=== PATIENT | female | born 1935 | race Caucasian/White ===

== ENCOUNTER → 2016-09-20 | Outpatient (REF) | payer MEDICARE, BC ==
[~2016-09-20] MED LIST: ADV250INH INH; ALBU17IN INH; ASPI81TA85 PO; CHLO125TA PO; FLUZ1INJ IM; LISI-542 PO; METO25TAB PO; NICO7DIS4 TD; PLAV75TA38 PO; PNEU0.5I IM; PRED10TA PO; PRESCAP PO; SIMV40TA2 PO; VITA100066 PO
[2016-09-20 17:40] LABS: ALBUMIN 3.9 GM/DL (3.2-5.2); ALBUMIN/GLOBULIN RATIO 1.26 (1.00-1.93); ALKALINE PHOSPHATASE 61 U/L (45-117); ALT/SGPT 15 U/L (12-78); ANION GAP 8 MEQ/L (8-16); AST/SGOT 19 U/L (15-37); BILIRUBIN,TOTAL 0.6 MG/DL (0.2-1.0); BLOOD UREA NITROGEN 15 MG/DL (7-18); CALCIUM LEVEL 8.9 MG/DL (8.8-10.2); CARBON DIOXIDE LEVEL 31 MEQ/L (21-32); CHLORIDE LEVEL 102 MEQ/L (98-107); CREATININE FOR GFR 0.93 MG/DL (0.55-1.02); GLOMERULAR FILTRATION RATE > 60.0 (>32); GLUCOSE, FASTING 92 MG/DL (83-110); SODIUM LEVEL 141 MEQ/L (136-145)
[2016-09-20 18:04] LABS: MEAN CORPUSCULAR HEMOGLOBIN 31.4 pg (27.0-33.0); MEAN CORPUSCULAR HGB CONC 32.6 g/dl (32.0-36.5); MEAN CORPUSCULAR VOLUME 96.3 fl (80.0-96.0); WHITE BLOOD COUNT 9.1 K/mm3 (4.0-10.0)
== END ==
LOC: M LAB REF 16:14
PROVIDERS: ATTEND Physician Assistant
DX: I11.9 Hypertensive heart disease without heart failure (principal); E78.2 Mixed hyperlipidemia; I25.10 Atherosclerotic heart disease of native coronary artery without angina pectoris
CPT/HCPCS: 80053; 85027; G0463

== ENCOUNTER → 2016-10-13 | Outpatient (CLI) | payer BC, MEDICARE ==
--- NOTE | 2016-10-13 13:19 | REP ---
CAROTID ULTRASOUND: Real-time sonographic evaluation and duplex Doppler interrogation of the extracranial carotid vasculature is performed. COMPARISON: 10/22/2014. There is moderate partially calcified plaquing and narrowing in both carotid bulbs extending into the internal and external carotid arteries. There is elevated peak systolic velocity in both internal carotid arteries compatible with bilateral stenosis of 60-79% unchanged since the prior exam. There is normal direction of flow in both vertebral arteries. RIGHT LEFT PK Systolic ICA 148.2 189.1 cm/s End Diastolic ICA 15.0 30.7 Peak systolic CCA 80.2 63.4 PK Systolic ECA 107.0 179.9 ICA/CCA Ratio 1.85 2.98 IMPRESSION: Bilateral stenosis of the internal carotid arteries 60-79% not significantly changed when compared to the prior study of 10/22/2014. Signed by Tariq Zheng MD 10/13/2016 04:43 P
== END ==
LOC: M RAD 10:56
PROVIDERS: ATTEND Internal Medicine Cardiovascular Disease
DX: I65.23 Occlusion and stenosis of bilateral carotid arteries (principal)

== ENCOUNTER → 2016-10-17 | Outpatient (REF) | payer MEDICARE ==
[~2016-10-17] MED LIST changes: +AZIT250T3 PO; +K-TA1TAB PO; +MAGN500C PO; +METO12TA PO
== END ==
LOC: M SFHCCAPE 12:18
PROVIDERS: ATTEND Physician Assistant
DX: J22 Unspecified acute lower respiratory infection (principal); Z53.8 Procedure and treatment not carried out for other reasons

== ENCOUNTER → 2016-10-17 | Outpatient (CLI) | payer MEDICARE ==
[~2016-10-17] MED LIST changes: -AZIT250T3 PO; -K-TA1TAB PO; -MAGN500C PO; -METO12TA PO
--- NOTE | 2016-10-17 16:09 | REP ---
PA and lateral chest two views: Comparison 05/06/2015. There are no focal infiltrates. No pleural effusions. There are no masses. Lung merlos are clear but again appear hyperinflated compatible with COPD, requiring clinical confirmation. Cardiac size is normal. The hanh, mediastinum, and bony thorax are unremarkable. Impression: There are no acute cardiopulmonary findings. There is hyperinflation compatible with COPD, requiring clinical confirmation. Signed by Tariq Zavala MD 10/17/2016 04:01 P
== END ==
LOC: M LAB 14:14
PROVIDERS: ATTEND Physician Assistant
DX: J22 Unspecified acute lower respiratory infection (principal); J98.4 Other disorders of lung

== ENCOUNTER 2016-10-19 10:47 | Inpatient (IN) | payer MEDICARE ==
[~2016-10-19] VITALS: Ht 162.6 cm; Wt 59.1 kg
[2016-10-19] MEDS: CHLORTHALIDONE 12.5MG PER 1/2 TABLET PO SCH (09:00)
[2016-10-19] MEDS ORDERED: SODIUM CHLORIDE 0.9% 1000 ML IV ONE (11:30)
--- NOTE | 2016-10-19 11:56 | REP ---
Portable chest x-ray: Sitting AP view. History: Syncope. Comparison study: October 17, 2016. Findings: EKG monitoring electrodes and oxygen delivery tubing are seen. The lungs are well inflated and free of infiltrate. Heart size is normal. The aorta is calcific. There is some diffuse osteopenia. Impression: No active disease. Signed by Gianni Menon MD 10/19/2016 06:19 P
[2016-10-19 11:59] LABS: BASO % 0.2 % (0.0-1.0); EOS # 0.1 K/mm3 (0.0-0.50); EOS % 0.6 % (0.0-3.0); LARGE UNSTAINED CELL # 0.1 K/mm3 (0.0-0.4); LARGE UNSTAINED CELL % 1.3 % (0.0-4.0); LYMPH # 1.2 K/mm3 (1.5-4.5); LYMPH % 11.2 % (24.0-44.0); MEAN CORPUSCULAR HEMOGLOBIN 30.8 pg (27.0-33.0); MEAN CORPUSCULAR HGB CONC 33.3 g/dl (32.0-36.5); MEAN CORPUSCULAR VOLUME 92.4 fl (80.0-96.0); MONO # 0.8 K/mm3 (0.0-0.8); MONO % 7.9 % (0.0-5.0); NEUTROPHILS # 8.1 K/mm3 (1.8-7.7); NEUTROPHILS % 78.8 % (36.0-66.0); PLATELET COUNT, AUTOMATED 195 k/mm3 (150-450); RED CELL DISTRIBUTION WIDTH 12.6 % (11.5-14.5); WHITE BLOOD COUNT 10.3 K/mm3 (4.0-10.0)
[2016-10-19 12:14] LABS: ANION GAP 10 MEQ/L (8-16); BLOOD UREA NITROGEN 34 MG/DL (7-18); CALCIUM LEVEL 8.4 MG/DL (8.8-10.2); CARBON DIOXIDE LEVEL 30 MEQ/L (21-32); CHLORIDE LEVEL 97 MEQ/L (98-107); CREATININE FOR GFR 1.28 MG/DL (0.55-1.02); GLOMERULAR FILTRATION RATE 42.7 (>32); GLUCOSE, FASTING 132 MG/DL (83-110); MAGNESIUM LEVEL 2.2 MG/DL (1.8-2.4); POTASSIUM SERUM 3.6 MEQ/L (3.5-5.1); SODIUM LEVEL 137 MEQ/L (136-145)
[2016-10-19] MEDS ORDERED: IPRATROPIUM 0.5MG/ALBUTEROL 2.5MG INH SOL UD 3ML (DUONEB)(J7620) NEB ONE (12:30)
[2016-10-19] MEDS ORDERED: MOXIFLOXACIN HCL 400 MG in APPROPRIATE DILUENT 1 EA IV ONE (12:45)
[2016-10-19] MEDS ORDERED: AZIT250T3 PO (13:46)
[2016-10-19] MEDS ORDERED: PRED10TA PO (13:46)
[2016-10-19] MEDS ORDERED: ADV250INH INH (13:46)
[2016-10-19] MEDS ORDERED: METO12TA PO (13:46)
[2016-10-19] MEDS ORDERED: ALBUTEROL SULFATE 2.5 MG/0.5 ML INH NEB SOLN NEB PRN (14:00)
[2016-10-19] MEDS ORDERED: ACETAMINOPHEN TAB 650MG DOSE (2X325MG) PO PRN (14:00)
[2016-10-19] MEDS ORDERED: ONDANSETRON 4MG/2ML VIAL (J2405) IV PRN (14:00)
--- NOTE | 2016-10-19 14:56 | HPE ---
DATE OF ADMISSION: 10/19/2016 PRIMARY CARE PROVIDER: Lenore Nathan. HISTORY OF PRESENT ILLNESS: This is patient is an 81-year-old female with a past medical history significant for COPD, unstable angina, status post cardiac stent, hyperlipidemia, hypertension, tobacco abuse, macular degeneration who presented to [facility] on 10/19/2016 for worsening shortness of breath. The patient stated since October 16, 2016, the patient started having difficulty breathing and the patient was noted to have increased cough and the patient started having generalized body aches. The patient started to develop a fever yesterday. Today, the patient was in the shower and the patient had a near syncopal episode. The patient was caught before landing on the bathtub. Denies any loss of consciousness. Denies any seizure-like activities. The patient went to see her primary care provider, one day after the symptoms and the patient was diagnosed with strep and the patient was given Z-Shane. The patient denies any other associated symptoms. When the patient arrived in the emergency room, the patient was empirically started on moxifloxacin. Later the respiratory virus panel came back positive for influenza A H3 and the hospitalist team was called for admission. ALLERGIES: PENICILLIN (neck and lip swelling). HOME MEDICATIONS: - aspirin 81 mg by mouth daily - chlorthalidone 12.5 mg by mouth daily - vitamin D 1000 units by mouth nightly - Plavix 37.5 mg by mouth twice a day - Lisinopril 5 mg by mouth nightly - metoprolol tartrate 25 mg by mouth twice a day - Advair discus one puff inhalation twice a day - simvastatin 40 mg by mouth nightly PAST MEDICAL HISTORY: COPD. Unstable angina status post cardiac stent placement in 2012. Hyperlipidemia. Hypertension. Tobacco abuse. Macular degeneration. PAST SURGICAL HISTORY: Cardiac stent placement in 2012 SOCIAL HISTORY: The patient smoked approximately one pack daily since 21 years of age. Her last cigarette was 5 days ago. Denies alcohol use. Denies recreational drug use. THE PATIENT IS A FULL CODE. REVIEW OF SYSTEMS: GENERAL: Generalized fatigue and generalized ache. Has a very poor oral since October 16, 2016. HEENT: Has difficulty hearing, this is a chronic problem. No vision changes. CARDIOVASCULAR: No chest pain. No palpitations. The patient does have a history of unstable angina status post cardiac stent. The patient a near syncopal episode on October 19, 2016. RESPIRATORY: Worsening shortness of breath. Denies any sputum color changes. Does noticed having increased cough. Denies any wheezes. GI: Poor appetite. No nausea, no vomiting. No abdominal pain. No diarrhea. MUSCULOSKELETAL: Generalized muscle ache. Chronic lower extremity tenderness bilaterally. NEURO: No numbness or tingling. OBJECTIVE: VITAL SIGNS: Temperature is 97.4, pulse 88, respiration 18, blood pressure supine is 135/62, standing is 117/57. Oxygen saturation is greater than 90% with 2 liters nasal cannula. GENERAL: Fatigued, pale, no acute distress. Alert and oriented times three. HEENT: Difficulty hearing, otherwise normocephalic, atraumatic. Extraocular muscles grossly intact. Dry oral mucosa. CARDIOVASCULAR: Positive S1, S2. Regular rate. LUNGS: Clear to auscultation bilaterally. No wheezes. No rhonchi. ABDOMEN: Soft, nontender, nondistended. Bowel sounds present. No rebound or guarding. EXTREMITIES: No edema. No cyanosis. There is some slight tenderness on the stout bilaterally. NEURO: Sensation to fine touch grossly intact. Muscle strength 5 out of 5. LABORATORY DATA: WBC 10.3, hemoglobin 14.9, hematocrit 44.7, platelet count is 195. Sodium 137, potassium 3.6, chloride 97, carbon dioxide 30, BUN 34, creatinine 1.28, GFR 42.7, fasting glucose 132, lactic acid 2.3, calcium 8.4, magnesium 2.2, total CK 168, troponin I less than 0.02, TSH 1.62. Microbiology: Blood culture is pending times two sets. Respiratory virus panel showed influenza A H3. Imaging studies: Chest x-ray showed no acute disease. ASSESSMENT/PLAN: 1. Influenza A: The patient will be admitted to the medical/surgical floor as an inpatient status. The patient started having onset of symptoms since October 16, 2016, thus has already passed the window for Tamiflu. Currently will place the patient on conservative medical management. The patient will be on IV fluids. 2. Streptococcus infection: The patient was seen by her primary care provider. According to the patient, the patient had a strep test done and is was positive and the patient was started on Z-Shane. Will follow with the report. Will also repeat the study. The patient has already had 3 days of Z-Shane also had Avelox in the emergency room. Will interpret new test with caution. At this time, will continue azithromycin. 3. History of chronic obstructive pulmonary disease, (COPD): The patient will have albuterol as needed. Continue with the patient's home breathing treatments. Currently, I do not feel that the patient has COPD exacerbation. 4. Unstable angina, status post cardiac stent placement in 2013. Continue with aspirin and Plavix, metoprolol and lisinopril. 5. Hyperlipidemia: Continue simvastatin. 6. Hypertension: The patient is on metoprolol, lisinopril and chlorthalidone. 7. Tobacco abuse: Per patient, the patient's last cigarettes was 5 days ago. Will continue to monitor. The patient may have a nicotine patch if needed. 8. Deep venous thrombosis prophylaxis on thromboembolic deterrent stockings (TEDS) and sequential compression device.
[2016-10-19] MEDS: NS 1,000 ML IV SCH (16:26)
--- NOTE | 2016-10-19 17:30 | ECGEPIP ---
Stationary ECG Study [facility] - ED Test Date: 2016-10-19 Pat Name: BRISEIDA IBARRA Department: Room: - Gender: F Front Office Help: katt : [id number] Requested By: Aleisha Carrnaza Order Number: [id number] Reading MD: Stas Lock Measurements Intervals [place] Rate: 76 P: 68 AR: 130 QRS: 18 QRSD: 84 T: 56 QT: 385 QTc: 434 Interpretive Statements SINUS RHYTHM WITH FREQUENT VENTRICULAR PREMATURE COMPLEXES POSSIBLE LEFT ATRIAL ENLARGEMENT NONSPECIFIC T-WAVE ABNORMALITY SIMILAR TO 09/26/14 Electronically Signed On 10-19-2016 17:30:24 EDT by Stas Lock
[2016-10-19 17:52] VITALS: BP 121/59
[2016-10-19] MEDS: ASPIRIN 81 MG ENTERIC TAB PO SCH (18:46)
[2016-10-19] MEDS: ADVAIR DISKUS 250/50 INH PWD INH SCH (21:00)
[2016-10-19] MEDS: CLOPIDOGREL 75 MG TAB PO SCH (21:25)
[2016-10-19] MEDS: SIMVASTATIN 40 MG TAB PO SCH (21:26)
[2016-10-19] MEDS: VITAMIN D 1,000 INTERNATIONAL UNITS TABLET PO SCH (21:26)
[2016-10-19] MEDS: LISINOPRIL 5 MG TAB PO SCH (21:44)
[2016-10-19] MEDS: METOPROLOL TART 25 MG TABLET PO SCH (21:45)
[2016-10-19 22:00] VITALS: BP 118/55
[2016-10-19 22:01] VITALS: BP 143/87
[2016-10-19 22:02] VITALS: BP 121/56
[2016-10-20] MEDS: NS 1,000 ML IV SCH ×2 (05:43→14:47)
[2016-10-20 06:00] VITALS: BP_SYST 114; BP_SYST 117; BP_SYST 128; BP_SYST 129; BP_DIAS 55; BP_DIAS 57
[2016-10-20 07:55] LABS: ANION GAP 7 MEQ/L (8-16); BLOOD UREA NITROGEN 24 MG/DL (7-18); CALCIUM LEVEL 7.7 MG/DL (8.8-10.2); CARBON DIOXIDE LEVEL 30 MEQ/L (21-32); CHLORIDE LEVEL 103 MEQ/L (98-107); CREATININE FOR GFR 0.85 MG/DL (0.55-1.02); GLOMERULAR FILTRATION RATE > 60.0 (>32); GLUCOSE, FASTING 94 MG/DL (83-110); POTASSIUM SERUM 3.6 MEQ/L (3.5-5.1); SODIUM LEVEL 140 MEQ/L (136-145)
[2016-10-20 08:04] LABS: MEAN CORPUSCULAR HEMOGLOBIN 31.3 pg (27.0-33.0); MEAN CORPUSCULAR HGB CONC 33.1 g/dl (32.0-36.5); MEAN CORPUSCULAR VOLUME 94.8 fl (80.0-96.0); WHITE BLOOD COUNT 5.2 K/mm3 (4.0-10.0)
[2016-10-20] MEDS: CLOPIDOGREL 75 MG TAB PO SCH ×2 (08:29→20:53)
[2016-10-20] MEDS: ASPIRIN 81 MG ENTERIC TAB PO SCH (08:30)
[2016-10-20] MEDS: AZITHROMYCIN 250 MG TAB PO SCH (08:30)
[2016-10-20] MEDS: CHLORTHALIDONE 12.5MG PER 1/2 TABLET PO SCH (08:30)
[2016-10-20] MEDS: METOPROLOL TART 25 MG TABLET PO SCH ×2 (08:30→20:54)
[2016-10-20] MEDS: ADVAIR DISKUS 250/50 INH PWD INH SCH ×2 (11:45→20:24)
[2016-10-20 14:00] VITALS: BP 151/63
--- NOTE | 2016-10-20 15:13 | IPN ---
DATE: 10/20/2016 SUBJECTIVE: Patient seen and examined in the room today. Patient starting to have increased oral intake; however, the total amount of food intake is now back to her baseline. Patient has continued to require oxygen support. She says she will feel significant shortness of breath with some physical exertions. Patient breathing feels better with breathing treatments. OBJECTIVE: VITAL SIGNS: Temperature 98.8, pulse 20, blood pressure 129/57, pulse oximetry 98% with 2 liters nasal cannula. GENERAL: No signs of acute distress. Alert and oriented times three. HEENT: Normocephalic, atraumatic. Extraocular motor grossly intact. CARDIOVASCULAR: Positive S1, S2. Regular rate. LUNGS: Clear to auscultation bilaterally. No wheezes or rhonchi. ABDOMEN: Soft, nontender, nondistended. Bowel sounds present. No rebound. No guarding. EXTREMITIES: No edema. No cyanosis. LABORATORY DATA: WBC 5.2, hemoglobin 13.2, hematocrit 40, platelet count 154. Sodium 140, potassium 3.6, chloride 103, carbon dioxide 30, BUN 24, creatinine 0.85, GFR greater than 60, fasting glucose 94, calcium 7.7. ASSESSMENT/PLAN: 1. Influenza. Patient is already past the window for Tamiflu. Will continue supportive care. Patient's oral intake continues to improve; however, it is not back to her baseline yet. Will continue with intravenous (IV) fluids. 2. Streptococcus infection. Patient tested positive at her primary care provider's office. Patient was started on Z-Shane prior to admission. Patient already has a few days of Z-Shane. Today will be day #4. 3. History of chronic obstructive pulmonary disease (COPD). Patient will have nebulizers as needed. During physical examination, patient does not seem to have COPD exacerbation currently. 4. History of stable angina status post cardiac stent placement in 2012. Continue with aspirin and Plavix and metoprolol and lisinopril. 5. Hyperlipidemia. Continue simvastatin. 6. Hypertension. Patient is on metoprolol, lisinopril, hydrochlorothiazide. 7. Tobacco abuse. Will continue to monitor. Patient can have a nicotine patch, if needed. 8. Deep venous thrombosis (DVT) prophylaxis. On thromboembolitic deterrents (TEDs), sequentials, and compression device.
[2016-10-20 18:00] VITALS: BP_SYST 135; BP_SYST 146; BP_SYST 147; BP_DIAS 52; BP_DIAS 65; BP_DIAS 68
[2016-10-20] MEDS: VITAMIN D 1,000 INTERNATIONAL UNITS TABLET PO SCH (20:53)
[2016-10-20] MEDS: SIMVASTATIN 40 MG TAB PO SCH (20:53)
[2016-10-20] MEDS: LISINOPRIL 5 MG TAB PO SCH (20:54)
[2016-10-20 22:00] VITALS: BP 141/58
[2016-10-21 06:00] VITALS: BP_SYST 129; BP_SYST 137; BP_SYST 140; BP_DIAS 61; BP_DIAS 70; BP_DIAS 85
[2016-10-21] MEDS: NS 1,000 ML IV SCH (06:27)
[2016-10-21] MEDS: ADVAIR DISKUS 250/50 INH PWD INH SCH ×2 (08:33→21:33)
[2016-10-21] MEDS: CHLORTHALIDONE 12.5MG PER 1/2 TABLET PO SCH (08:36)
[2016-10-21] MEDS: ASPIRIN 81 MG ENTERIC TAB PO SCH (08:37)
[2016-10-21] MEDS: METOPROLOL TART 25 MG TABLET PO SCH ×2 (08:37→21:29)
[2016-10-21] MEDS: AZITHROMYCIN 250 MG TAB PO SCH (08:37)
[2016-10-21] MEDS: CLOPIDOGREL 75 MG TAB PO SCH ×2 (08:37→21:28)
[2016-10-21 14:00] VITALS: BP 150/60
--- NOTE | 2016-10-21 15:48 | IPN ---
DATE: 10/21/2016 SUBJECTIVE: The patient is seen and examined in the room today. The patient still has decreased oral intake. The patient started to have frequent cough. The patient continues to have persistent low-grade temperature. The patient stated she started to have increase of her urinary frequency from the continued intravenous (IV) fluid. OBJECTIVE: VITAL SIGNS: Temperature is 99.2, pulse is 76, respirations 20, blood pressure 129/70, pulse oximetry is 90% with one liter nasal cannula. GENERAL: Fatigued with frequent cough. The patient is alert and oriented times three. HEENT: Normocephalic, atraumatic. Extraocular motor grossly intact. CARDIOVASCULAR: Positive S1, S2. Regular rate. LUNGS: Clear to auscultation bilaterally. No wheezes or rhonchi. ABDOMEN: Soft, nontender, nondistended. Bowel sounds present. No rebound, no guarding. EXTREMITIES: No edema, no sign of cyanosis. MICROBIOLOGY: Blood cultures negative after 48 hours times two sets. ASSESSMENT AND PLAN: 1. Influenza. The patient passed the treatment window for Tamiflu. Currently will continue with supportive care. The patient's orthostatic hypotension has been resolved with the IV support. However, the patient started to now to have increased urinary frequency that is causing her sleep disturbance. For now, we will discontinue the IV fluid and will continue to observe the patient's oral intake. If patient starts to have sign of dehydration, we will have to restart the fluid. 2. Streptococcus infection. That was tested positive in the patient's primary care office. The patient was started on Z-JULIO. Today will be day number five. 3. History of chronic obstructive pulmonary disease (COPD). During physical exam, the patient does not have any finding suggestive of COPD exacerbation. The patient will have breathing treatment as needed. 4. History of stable angina, status post cardiac stent placement in 2012. Continue with aspirin, Plavix and metoprolol and lisinopril. 5. Hyperlipidemia. Continue simvastatin. 6. Hypertension. On metoprolol, lisinopril, hydrochlorothiazide . 7. History of tobacco abuse. The patient has a nicotine patch as needed. 8. Deep venous thrombosis (DVT) prophylaxis on thromboembolism deterrent stockings (TEDs) and sequential compression devices.
[2016-10-21] MEDS: VITAMIN D 1,000 INTERNATIONAL UNITS TABLET PO SCH (21:28)
[2016-10-21] MEDS: SIMVASTATIN 40 MG TAB PO SCH (21:29)
[2016-10-21] MEDS: LISINOPRIL 5 MG TAB PO SCH (21:29)
[2016-10-21 22:00] VITALS: BP 155/66
[2016-10-22 06:00] VITALS: BP_SYST 140; BP_SYST 166; BP_SYST 178; BP_SYST 183; BP_DIAS 62; BP_DIAS 68; BP_DIAS 76; BP_DIAS 81
[2016-10-22 06:16] LABS: MEAN CORPUSCULAR HEMOGLOBIN 31.2 pg (27.0-33.0); MEAN CORPUSCULAR HGB CONC 34.3 g/dl (32.0-36.5); MEAN CORPUSCULAR VOLUME 90.9 fl (80.0-96.0); RED CELL DISTRIBUTION WIDTH 12.5 % (11.5-14.5); WHITE BLOOD COUNT 4.9 K/mm3 (4.0-10.0)
[2016-10-22 06:20] VITALS: BP_SYST 120; BP_SYST 138; BP_SYST 140; BP_DIAS 62; BP_DIAS 68; BP_DIAS 70
[2016-10-22 06:32] LABS: ANION GAP 9 MEQ/L (8-16); BLOOD UREA NITROGEN 6 MG/DL (7-18); CALCIUM LEVEL 8.1 MG/DL (8.8-10.2); CARBON DIOXIDE LEVEL 32 MEQ/L (21-32); CHLORIDE LEVEL 99 MEQ/L (98-107); CREATININE FOR GFR 0.71 MG/DL (0.55-1.02); GLOMERULAR FILTRATION RATE > 60.0 (>32); GLUCOSE, FASTING 101 MG/DL (83-110); POTASSIUM SERUM 2.8 MEQ/L (3.5-5.1); SODIUM LEVEL 140 MEQ/L (136-145)
[2016-10-22] MEDS ORDERED: POTASSIUM CHLORIDE 10 MEQ SR TABLET PO ONE ×2 (06:45→13:15)
[2016-10-22] MEDS: KCL 10MEQ IN 100ML SWI (KRUN) 10 MEQ in APPROPRIATE DILUENT 1 EA IV SCH ×4 (06:56→08:00)
[2016-10-22] MEDS: ADVAIR DISKUS 250/50 INH PWD INH SCH ×2 (08:30→20:46)
[2016-10-22] MEDS: CHLORTHALIDONE 12.5MG PER 1/2 TABLET PO SCH (10:40)
[2016-10-22] MEDS: ASPIRIN 81 MG ENTERIC TAB PO SCH (10:40)
[2016-10-22] MEDS: NS 1,000 ML IV SCH (10:41)
[2016-10-22] MEDS: METOPROLOL TART 25 MG TABLET PO SCH ×2 (10:41→20:23)
[2016-10-22] MEDS: AZITHROMYCIN 250 MG TAB PO SCH (10:41)
[2016-10-22] MEDS: CLOPIDOGREL 75 MG TAB PO SCH ×2 (10:41→20:23)
[2016-10-22 14:00] VITALS: BP 150/60
--- NOTE | 2016-10-22 14:40 | IPN ---
DATE: 10/22/2016 SUBJECTIVE: Patient is seen and examined in the room today. Patient stated her cough is improving, however her oral intake is not back to normal. Still feels generalized weakness. Patient had hypokalemia. Potassium intravenous (IV) was ordered but patient could not tolerate the burning sensation. OBJECTIVE: VITAL SIGNS: Temperature 99, pulse 65, respiration rate 18, blood pressure supine is 140/60, standing is 120/68. GENERAL: Fatigued, alert and oriented times three. HEENT: Normocephalic, atraumatic. Extraocular motors grossly intact. CARDIOVASCULAR: Positive S1, S2, regular rate. LUNGS: Clear to auscultation bilaterally. ABDOMEN: Soft, nontender, nondistended. Bowel sounds present. No rebound, no guarding. EXTREMITIES: No edema, no sign of cyanosis. LABORATORY DATA: WBC 4.9, hemoglobin 12.9, hematocrit 37.6, platelet count 149. Sodium 140, potassium 2.8, chloride 99, carbon dioxide 32, BUN 6, creatinine 0.71, GFR greater than 60, fasting glucose 101, calcium 8.1. ASSESSMENT AND PLAN: 1. Influenza. Past the treatment window for Tamiflu. Currently continue with supportive care. Intravenous (IV) fluid was discontinued yesterday because of resolution of hypotension, however patient's oral intake is not optimal, thus the recurrence of the hypotension. IV fluid has been restarted. 2. Streptococcus throat diagnosed at primary care provider clinic. Started on Z-Shane, today is day #6 of the azithromycin. 3. History of chronic obstructive pulmonary disease (COPD). Currently patient does not have any exacerbation. Continue breathing treatment as needed. 4. History of stable angina status post cardiac stent placement in 2012. Continue aspirin, Plavix, metoprolol, and lisinopril. 5. Hyperlipidemia. Continue simvastatin. 6. Hypertension. On metoprolol, lisinopril, and hydrochlorothiazide. 7. History of tobacco abuse. Nicotine patch as needed. 8. Deep venous thrombosis (DVT) prophylaxis. On thromboembolism deterrents (TEDs) and sequential compression device.
[2016-10-22 18:00] VITALS: BP_SYST 115; BP_SYST 130; BP_SYST 140; BP_DIAS 45; BP_DIAS 50; BP_DIAS 58
[2016-10-22] MEDS: LISINOPRIL 5 MG TAB PO SCH (20:23)
[2016-10-22] MEDS: VITAMIN D 1,000 INTERNATIONAL UNITS TABLET PO SCH (20:23)
[2016-10-22] MEDS: SIMVASTATIN 40 MG TAB PO SCH (20:24)
[2016-10-22 22:00] VITALS: BP 170/88
[2016-10-23] MEDS: NS 1,000 ML IV SCH ×2 (01:14→18:15)
[2016-10-23 06:00] VITALS: BP_SYST 140; BP_SYST 150; BP_SYST 160; BP_DIAS 60; BP_DIAS 72; BP_DIAS 80
[2016-10-23 06:30] LABS: MEAN CORPUSCULAR HEMOGLOBIN 31.6 pg (27.0-33.0); MEAN CORPUSCULAR HGB CONC 33.5 g/dl (32.0-36.5); MEAN CORPUSCULAR VOLUME 94.5 fl (80.0-96.0); RED CELL DISTRIBUTION WIDTH 12.6 % (11.5-14.5); WHITE BLOOD COUNT 5.1 K/mm3 (4.0-10.0)
[2016-10-23 06:33] LABS: ANION GAP 5 MEQ/L (8-16); BLOOD UREA NITROGEN 6 MG/DL (7-18); CALCIUM LEVEL 8.3 MG/DL (8.8-10.2); CARBON DIOXIDE LEVEL 32 MEQ/L (21-32); CHLORIDE LEVEL 102 MEQ/L (98-107); GLOMERULAR FILTRATION RATE > 60.0 (>32); GLUCOSE, FASTING 97 MG/DL (83-110); POTASSIUM SERUM 3.7 MEQ/L (3.5-5.1); SODIUM LEVEL 139 MEQ/L (136-145)
[2016-10-23] MEDS: ADVAIR DISKUS 250/50 INH PWD INH SCH ×2 (08:30→20:40)
[2016-10-23] MEDS: CLOPIDOGREL 75 MG TAB PO SCH ×2 (08:45→20:51)
[2016-10-23] MEDS: AZITHROMYCIN 250 MG TAB PO SCH (08:45)
[2016-10-23] MEDS: METOPROLOL TART 25 MG TABLET PO SCH ×2 (08:45→20:51)
[2016-10-23] MEDS: ASPIRIN 81 MG ENTERIC TAB PO SCH (08:45)
[2016-10-23] MEDS: CHLORTHALIDONE 12.5MG PER 1/2 TABLET PO SCH (09:00)
--- NOTE | 2016-10-23 13:50 | IPN ---
DATE: 10/23/2016 SUBJECTIVE: Patient is seen and examined in the room today. Patient still complains about difficulty breathing requiring oxygen support. Patient continues to have poor oral intake. Patient is positive for orthostatics. Patient feels some lightheadedness when she tried to stand up. Patient continues to have low-grade temperature. No overnight events are reported. In the past 1-2 days, the patient continued to have loose stool and this is a significant fluid loss. OBJECTIVE: VITAL SIGNS: Temperature is 98.8, pulse is 73, respiration rate 18, blood pressure supine is 150/60, sitting is 160/80, standing is 140/72. Pulse oximetry is 90% in room air. GENERAL: Pale, fatigued, no signs of acute distress, alert and oriented times three. HEENT: Normocephalic, atraumatic. Extraocular motors grossly intact. CARDIOVASCULAR: Positive S1, S2, regular rate. LUNGS: Clear to auscultation bilaterally. ABDOMEN: Soft, nontender, nondistended. Bowel sounds present. No rebound, no guarding. EXTREMITIES: No edema, no sign of cyanosis. LABORATORY DATA: WBC 5.1, hemoglobin 13, hematocrit 38.7, platelet count is 154. Sodium is 139, potassium 3.7, chloride is 102, carbon dioxide 32, BUN 6, creatinine 0.7, GFR greater than 60, fasting glucose 97, calcium is 8.3. ASSESSMENT AND PLAN: 1. Influenza. Continue supportive care. Patient still orthostatic. Continues to have poor oral intake. Patient still requires oxygen support. 2. Strep throat diagnosed at primary care provider (PCP) clinic. Patient started on Z-Shane. Today, patient will finish a course Z-Shane antibiotic treatment. 3. Hypocalcemia, most likely secondary to gastrointestinal (GI) loss. Outpatient receiving supplementation. Electrolyte abnormalities corrected. 4. History of chronic obstructive pulmonary disease (COPD). Currently patient does not have any exacerbation. Continue breathing treatments as needed. 5. History of stable angina status post cardiac stent placement in 2012. Continue aspirin, Plavix, metoprolol, and lisinopril. 6. Hyperlipidemia. Continue simvastatin. 7. Hypertension. Currently blood pressure is within range. Continue metoprolol, lisinopril, and hydrochlorothiazide. 8. History of tobacco abuse. 9. Deep venous thrombosis (DVT) prophylaxis. On thromboembolism deterrents (TEDs) and sequential compression device.
[2016-10-23 14:00] VITALS: BP 140/70
[2016-10-23 18:00] VITALS: BP_SYST 110; BP_SYST 120; BP_SYST 130; BP_DIAS 50; BP_DIAS 52
[2016-10-23] MEDS: LISINOPRIL 5 MG TAB PO SCH (20:51)
[2016-10-23] MEDS: VITAMIN D 1,000 INTERNATIONAL UNITS TABLET PO SCH (20:51)
[2016-10-23] MEDS: SIMVASTATIN 40 MG TAB PO SCH (20:51)
[2016-10-23 22:00] VITALS: BP 142/70
[2016-10-24 06:00] VITALS: BP 152/71
[2016-10-24 06:41] LABS: MEAN CORPUSCULAR HEMOGLOBIN 31.7 pg (27.0-33.0); MEAN CORPUSCULAR HGB CONC 34.5 g/dl (32.0-36.5); MEAN CORPUSCULAR VOLUME 91.9 fl (80.0-96.0); RED CELL DISTRIBUTION WIDTH 12.6 % (11.5-14.5); WHITE BLOOD COUNT 5.8 K/mm3 (4.0-10.0)
[2016-10-24 06:58] LABS: ANION GAP 8 MEQ/L (8-16); BLOOD UREA NITROGEN 7 MG/DL (7-18); CALCIUM LEVEL 7.7 MG/DL (8.8-10.2); CARBON DIOXIDE LEVEL 29 MEQ/L (21-32); CHLORIDE LEVEL 102 MEQ/L (98-107); CREATININE FOR GFR 0.62 MG/DL (0.55-1.02); GLOMERULAR FILTRATION RATE > 60.0 (>32); GLUCOSE, FASTING 103 MG/DL (83-110); POTASSIUM SERUM 3.2 MEQ/L (3.5-5.1); SODIUM LEVEL 139 MEQ/L (136-145)
[2016-10-24] MEDS ORDERED: POTASSIUM CHLORIDE 10 MEQ SR TABLET PO ONE (07:45)
[2016-10-24 07:50] LABS: MAGNESIUM LEVEL 1.6 MG/DL (1.8-2.4)
[2016-10-24] MEDS: ASPIRIN 81 MG ENTERIC TAB PO SCH (08:04)
[2016-10-24] MEDS: CLOPIDOGREL 75 MG TAB PO SCH (08:04)
[2016-10-24 08:05] VITALS: BP 152/71
[2016-10-24] MEDS: METOPROLOL TART 25 MG TABLET PO SCH (08:05)
[2016-10-24] MEDS: ADVAIR DISKUS 250/50 INH PWD INH SCH (08:52)
[2016-10-24] MEDS: NS 1,000 ML IV SCH (09:10)
[2016-10-24] MEDS: MAG SULF 1GM/100ML (MAG RUN) 1 GM in APPROPRIATE DILUENT 1 EA IV SCH ×2 (09:10→10:12)
[2016-10-24] MEDS ORDERED: K-TA1TAB PO (11:06)
[2016-10-24] MEDS ORDERED: MAGN500C PO (11:06)
--- NOTE | 2016-10-24 17:44 | DSES ---
DATE OF ADMISSION: 10/19/2016 DATE OF DISCHARGE: 10/24/2016 PRIMARY CARE PHYSICIAN: María Elena Moody MD ATTENDING PHYSICIAN: Chapis Yuan MD SPECIALISTS/CONSULTANTS INVOLVED DURING STAY: None. PROCEDURES PERFORMED DURING STAY: None. ADMITTING DIAGNOSES: 1. Influenza A H3. 2. Streptococcal infection. DISCHARGE DIAGNOSES: 1. Influenza A H3. 2. Orthostatic hypotension. 3. Acute hypoxic respiratory failure. 4. Diarrhea COMPLICATIONS/CHIEF COMPLAINT: Worsening shortness of breath. HISTORY OF PRESENT ILLNESS: The patient presented to [facility] Emergency Department on 10/19/2016 with worsening shortness of breath. She had stated that since 10/16, she had been having difficulty breathing and was noted to have an increased cough and generalized body aches. States that she developed a fever the day before presentation. Reports a near syncopal episode in the shower before presenting to the emergency department. She caught herself before landing on the bathtub. Denied any loss of consciousness. Denied any seizure-like activity. Reported to her primary care provider one day after the symptoms and was diagnosed with strept throat and given a Z-Shane. On arrival to the emergency department, she was empirically started on moxifloxacin. A respiratory panel conducted tested positive for influenza A H3. Hospitalist service is consulted and the patient was subsequently admitted for further medical management. HOSPITAL COURSE: The patient was hospitalized and started on intravenous fluids resuscitation. Continued the patient on azithromycin for her outpatient diagnosis of strep throat. The patient did develop some orthostatic hypotension while hospitalized and fluid resuscitation was continued, which appeared to resolve the orthostatic hypotension. The patient did appear to have some acute hypoxic respiratory failure requiring at most 3 liters of oxygen by nasal cannula. Appear to have resolved during hospitalization. At the time of discharge, the patient was saturating on room air. The patient did appear to have some diarrhea during hospitalization resulting in hypocalcemia. The patient also had some mild hypokalemia with hypomagnesemia. Electrolytes were replenished during hospitalization and electrolytes supplementation will be provided at the time of discharge. Other chronic medical conditions were controlled during hospitalization and deep vein thrombosis (DVT) prophylaxis was provided with ROBINSON's and sequentials. The patient was deemed stable enough for discharge. MEDICATIONS: - aspirin 81 mg by mouth daily - chlorthalidone 12.5 mg by mouth daily - cholecalciferol 1000 units by mouth at bedtime (q.h.s.) - Plavix 75 mg by mouth twice a day - lisinopril 5 mg by mouth at bedtime (q.h.s.) - metoprolol tartrate 25 mg by mouth twice a day - prednisone 60 mg by mouth daily - PreserVision one cap by mouth daily - Advair one puff inhaled twice a day - simvastatin 40 mg by mouth at bedtime (q.h.s.) - magnesium oxide 500 mg by mouth daily for four days - potassium chloride 20 mEq by mouth daily for four days. ALLERGIES: CIPROFLOXACIN, PENICILLIN. PHYSICAL EXAMINATION ON DISCHARGE: VITAL SIGNS: Temperature 98.2, heart rate 74, respirations 19, blood pressure 152/71, oxygen 90% on room air. GENERAL: Very pleasant 81-year-old female sitting on the edge of her bed in no apparent distress and appears her stated age. HEENT: Atrumatic, normocephalic, pupils equal, round, reactive to light and accommodation, extraocular movement intact, wears spectacles, nasal septum appears midline, oral mucosa appears pink and moist. NECK: Supple. Trachea midline, no lymphadenopathy appreciated. CARDIOVASCULAR EXAMINATION: Regular rate and rhythm. Normal S1 and S2, no murmurs, rubs, clicks. RESPIRATORY EXAMINATION: Crackles heard in the base of the lung on the left, normal inspiratory and expiratory airway excursion. No rales or rhonchi appreciated. ABDOMINAL EXAMINATION: Soft, flat, nontender, nondistended. Bowel sounds appreciated. EXTREMITIES: Peripheral pulses appreciated bilaterally in upper and lower extremities, no edema appreciated. No rashes or lesions or skin discoloration noted. SKIN: No rashes or lesions appreciated, no skin discoloration. NEUROLOGICAL EXAMINATION: Cranial nerves II/XII grossly intact, moves all extremities. PSYCHIATRIC EXAMINATION: Appropriate. LABORATORY DATA: White blood count (WBC) 3.81, hemoglobin 12, hematocrit 35, platelets 176. Sodium 139, potassium 3.2, chloride 102, bicarbonate 29, BUN 7, creatine 0.62, glucose 103, calcium 7.7, magnesium 1.6. Urinalysis negative. MICROBIOLOGY: 1. Respiratory panel positive for influenza A H3. 2. Blood cultures negative after 72 hours. 3. Streptococcal screen negative. 4. Gastrointestinal panel negative. IMAGING: Chest x-ray on 10/19/2016 showed no active disease. PROGNOSIS: Safe for discharge to home. ACTIVITY: As tolerated. DIET: Continue outpatient diet. DISCHARGE PLAN: Followup with María Elena Moody in 7 to 10 days. Continue with magnesium oxide and potassium chloride a day for the next four days. Continue outpatient regimen as previously scheduled with outpatient provider for chronic underlying medical conditions. DISPOSITION: Home. DISCHARGE INSTRUCTIONS: 1. Followup with María Elena Moody in 7 to 10 days. 2. Take magnesium oxide and potassium chloride over the next four days daily. 3. Continue with home medications. ITEMS TO FOLLOWUP OUTPATIENT: 1. Followup laboratory data to assess magnesium and potassium. DISCHARGE CONDITION: Stable. TIME SPENT ON DISCHARGE: Greater than 45 minutes. My preceptor for this patient encounter was Dr. Yuan. The preceptor was physically present in the building during the encounter and was fully available. As needed, all aspects of the patient interview, examination, medical decision making process, and medical care plan development were reviewed and approved by the preceptor. The preceptor is aware and concurs with the plan as stated in the body of this note and will attest to such by his/her cosignature. ARMANDO
== END 2016-10-24 13:48 | disposition home or self-care (01) | DRG 193 ==
LOC: M ED 13:10 → M ED INP 13:47 → M MSPAV 17:41
PROVIDERS: ADMIT Internal Medicine; ATTEND Internal Medicine
DX: J10.1 Influenza due to other identified influenza virus with other respiratory manifestations (principal); J96.01 Acute respiratory failure with hypoxia; J44.9 Chronic obstructive pulmonary disease, unspecified; E78.5 Hyperlipidemia, unspecified; I10 Essential (primary) hypertension; H35.30 Unspecified macular degeneration; R35.0 Frequency of micturition; E87.6 Hypokalemia; I95.1 Orthostatic hypotension; E83.42 Hypomagnesemia; R19.7 Diarrhea, unspecified; E83.51 Hypocalcemia; Z79.82 Long term (current) use of aspirin; Z79.51 Long term (current) use of inhaled steroids; Z95.5 Presence of coronary angioplasty implant and graft; Z79.02 Long term (current) use of antithrombotics/antiplatelets; Z79.899 Other long term (current) drug therapy; Z87.891 Personal history of nicotine dependence

== ENCOUNTER 2016-10-26 23:31 | Inpatient (IN) | payer BC, MEDICARE ==
[~2016-10-26] VITALS: Ht 162.6 cm; Wt 60.9 kg
[~2016-10-26 23:31] MED LIST changes: +AZIT250T3 PO; +K-TA1TAB PO; +MAGN500C PO; +METO12TA PO
[2016-10-27] VITALS (10 sets, daily range): BP systolic 82–115; BP diastolic 50–68; O2SAT 97
[2016-10-27] MEDS ORDERED: dexameTHASONE 20 MG/5 ML VIAL (J1100) IV ONE
[2016-10-27] MEDS: IPRATROPIUM 0.5MG/ALBUTEROL 2.5MG INH SOL UD 3ML (DUONEB)(J7620) NEB SCH ×6 (00:12→19:38)
[2016-10-27 00:22] LABS: VENOUS O2 SATURATION 61.4 % (60.0-80.0); VENOUS PARTIAL PRESSURE CO2 42.7 mmHg (38.0-50.0); VENOUS STANDARD HCO3 26.1 MEQ/L; VENOUS TOTAL CO2 29.1 MEQ/L (24.0-28.0)
[2016-10-27 00:27] LABS: BASO % 0.2 % (0.0-1.0); EOS # 0.1 K/mm3 (0.0-0.50); EOS % 0.6 % (0.0-3.0); LARGE UNSTAINED CELL # 0.1 K/mm3 (0.0-0.4); LARGE UNSTAINED CELL % 0.6 % (0.0-4.0); LYMPH # 1.3 K/mm3 (1.5-4.5); LYMPH % 7.2 % (24.0-44.0); MEAN CORPUSCULAR VOLUME 91.1 fl (80.0-96.0); MONO # 0.7 K/mm3 (0.0-0.8); MONO % 4.1 % (0.0-5.0); NEUTROPHILS # 15.6 K/mm3 (1.8-7.7); NEUTROPHILS % 87.3 % (36.0-66.0); PLATELET COUNT, AUTOMATED 371 k/mm3 (150-450); RED CELL DISTRIBUTION WIDTH 12.7 % (11.5-14.5); WHITE BLOOD COUNT 17.9 K/mm3 (4.0-10.0)
[2016-10-27 00:45] LABS: ANION GAP 11 MEQ/L (8-16); BLOOD UREA NITROGEN 14 MG/DL (7-18); CALCIUM LEVEL 9.4 MG/DL (8.8-10.2); CARBON DIOXIDE LEVEL 28 MEQ/L (21-32); CHLORIDE LEVEL 97 MEQ/L (98-107); CREATININE FOR GFR 0.88 MG/DL (0.55-1.02); GLOMERULAR FILTRATION RATE > 60.0 (>32); GLUCOSE, FASTING 141 MG/DL (83-110); POTASSIUM SERUM 4.1 MEQ/L (3.5-5.1); SODIUM LEVEL 136 MEQ/L (136-145)
[2016-10-27] MEDS ORDERED: VANCOMYCIN HCL 750 MG, VIAL MATE ADAPTER 1 EACH in D5W 250 ML IV ONE (01:30)
[2016-10-27] MEDS ORDERED: IMIPENEM/CILASTATIN 500 MG in D5W MINI-BAG PLUS 100 ML IV ONE (01:30)
[2016-10-27] MEDS ORDERED: ASPIRIN 325 MG TAB PO ONE (02:00)
[2016-10-27] MEDS ORDERED: ONDANSETRON 4MG/2ML VIAL (J2405) IV ONE (02:00)
[2016-10-27] MEDS ORDERED: METO-346 PO (03:20)
[2016-10-27] MEDS ORDERED: PRED10PA2 PO (03:20)
[2016-10-27] MEDS ORDERED: MAGN1CAP PO (03:20)
[2016-10-27] MEDS ORDERED: ASPI81TAEC PO (03:20)
[2016-10-27] MEDS ORDERED: POTA10CA PO (03:20)
[2016-10-27] MEDS ORDERED: ALBU17IN INH (03:21)
[2016-10-27] MEDS ORDERED: NITR4TASL SL (03:21)
[2016-10-27] MEDS ORDERED: FLUT1SPR2 (03:21)
[2016-10-27 04:00] LABS: ALBUMIN 3.5 GM/DL (3.2-5.2); ALBUMIN/GLOBULIN RATIO 1.06 (1.00-1.93); ALKALINE PHOSPHATASE 65 U/L (45-117); ALT/SGPT 14 U/L (12-78); AST/SGOT 12 U/L (15-37); BILIRUBIN,DIRECT 0.3 MG/DL (0.0-0.2); BILIRUBIN,TOTAL 0.7 MG/DL (0.2-1.0); MAGNESIUM LEVEL 1.7 MG/DL (1.8-2.4); TOTAL PROTEIN 6.8 GM/DL (6.4-8.2)
[2016-10-27 04:17] LABS: ERYTHROCYTE SEDIMENTATION RATE 25 mm/hr (0-30)
[2016-10-27] MEDS ORDERED: NITROGLYCERIN 0.4 MG SUBL TABLET SL PRN (04:45)
[2016-10-27] MEDS ORDERED: ACETAMINOPHEN TAB 650MG DOSE (2X325MG) PO PRN (04:45)
[2016-10-27] MEDS ORDERED: IPRATROPIUM 0.5MG/ALBUTEROL 2.5MG INH SOL UD 3ML (DUONEB)(J7620) NEB PRN (04:45)
[2016-10-27] MEDS ORDERED: ACETAMINOPHEN 650 MG SUPP PR PRN (04:45)
[2016-10-27] MEDS ORDERED: FLUTICASONE PROP 0.05% NASAL SPRAY 16 GM (FLONASE) PRN (04:45)
[2016-10-27] MEDS ORDERED: MAG SULF 1GM/100ML (MAG RUN) 1 GM in APPROPRIATE DILUENT 1 EA IV ONE (04:45)
[2016-10-27] MEDS ORDERED: MOM 30ML SUSPENSION UDC PO PRN (04:45)
[2016-10-27] MEDS ORDERED: VANCOMYCIN 1000 MG/20 ML VIAL (J3370) As Ordered ONE (04:59)
[2016-10-27] MEDS ORDERED: methylPREDNISolone INJ 125 MG/2 ML VIAL (J2930) IV SCH (06:00)
[2016-10-27] MEDS ORDERED: MEROPENEM INJ 1 GM in D5W MINI-BAG PLUS 100 ML IV SCH (06:00)
[2016-10-27] MEDS: methylPREDNISolone INJ 40 MG/1 ML VIAL (J2920) IV SCH ×3 (06:26→23:37)
[2016-10-27 06:49] LABS: CALCIUM LEVEL 8.6 MG/DL (8.8-10.2); CREATININE FOR GFR 1.09 MG/DL (0.55-1.02); GLOMERULAR FILTRATION RATE 51.4 (>32); POTASSIUM SERUM 4.3 MEQ/L (3.5-5.1)
[2016-10-27 06:50] LABS: BASO % 0.1 % (0.0-1.0); EOS # 0.1 K/mm3 (0.0-0.50); EOS % 0.5 % (0.0-3.0); LARGE UNSTAINED CELL # 0.1 K/mm3 (0.0-0.4); LARGE UNSTAINED CELL % 0.3 % (0.0-4.0); LYMPH # 0.8 K/mm3 (1.5-4.5); LYMPH % 2.5 % (24.0-44.0); MEAN CORPUSCULAR HEMOGLOBIN 31.2 pg (27.0-33.0); MEAN CORPUSCULAR HGB CONC 33.7 g/dl (32.0-36.5); MEAN CORPUSCULAR VOLUME 92.8 fl (80.0-96.0); MONO # 0.8 K/mm3 (0.0-0.8); NEUTROPHILS # 25.3 K/mm3 (1.8-7.7); NEUTROPHILS % 93.7 % (36.0-66.0); PLATELET COUNT, AUTOMATED 299 k/mm3 (150-450); RED CELL DISTRIBUTION WIDTH 12.7 % (11.5-14.5)
--- NOTE | 2016-10-27 07:06 | PHACANCOPD ---
PHARMACY VANCOMYCIN DOSING Pt Demographics Demographics Patient Age:81 , Weight:58.060 , Gender: female Adjusted Body Weight Date: 10/27/16, Adjusted Body Weight: [58] Kg Vancomycin Vancomycin indication: HCAP/SEPSIS Vancomycin Target Ranges: 15-20 mcg/ml Vancomycin Load Y/N: No Load Dose Date Time Vancomycin Load Dose: Date: Time: Vancomycin Dose Date: 10/27/16. Current Vancomycin Dose: [1 GM IV Q24H] Intermittent Dosing?: No Labs Labs Laboratory Tests 10/27/16 00:08 Red Blood Count 4.83, Mean Corpuscular Volume 91.1, Mean Corpuscular Hemoglobin 31.0, Mean Corpuscular Hemoglobin Concent 34.0, Red Cell Distribution Width 12.7 , Neutrophils (%) (Auto) 87.3 H, Lymphocytes (%) (Auto) 7.2 L, Monocytes (%) ( Auto) 4.1, Eosinophils (%) (Auto) 0.6, Basophils (%) (Auto) 0.2, Neutrophils # ( Auto) 15.6 H, Lymphocytes # (Auto) 1.3 L, Monocytes # (Auto) 0.7, Eosinophils # (Auto) 0.1, Basophils # (Auto) 0.0 10/27/16 06:19 Red Blood Count 4.47, Mean Corpuscular Volume 92.8, Mean Corpuscular Hemoglobin 31.2, Mean Corpuscular Hemoglobin Concent 33.7, Red Cell Distribution Width 12.7 , Neutrophils (%) (Auto) 93.7 H, Lymphocytes (%) (Auto) 2.5 L, Monocytes (%) ( Auto) 3.0, Eosinophils (%) (Auto) 0.5, Basophils (%) (Auto) 0.1, Neutrophils # ( Auto) 25.3 H, Lymphocytes # (Auto) 0.8 L, Monocytes # (Auto) 0.8, Eosinophils # (Auto) 0.1, Basophils # (Auto) 0.0 Micro Microbiology 10/27/16 Blood Culture, Received Pending 10/27/16 Blood Culture, Received Pending Creatinine Clearance Date:10/27/16. Creatinine Clearance: [46.7]CALCULATED. Assessment and Plan Maintaining Current Dose?: Yes Reason for dose change: No Dose Change Pharmacist Note Pharmacist Note Date: 10/27/16. Pharmacist note:ADMISSION FOR HCAP/SEPSIS-RECEIVED IMIPENEM 500MG X1 + VANCO 750MG X1 IN ED-ORDERED MEROPENEM 1 GM Q8H AND VANCOMYCIN PER CONSULT-WILL BEGIN VANCOMYCIN 1 GM IV Q24H@1800.SCR=0.88, CRCL=46.7 WILL CONTINUE TO FOLLOW LABS AND LEVELS [facility] Oct 27, 2016 07:06
--- NOTE | 2016-10-27 08:20 | REP ---
Clinical: Dyspnea. Technique: PA and lateral. Comparison: 10/19/2016. Findings: Chronic changes are appreciated with superimposed bilateral lower lobe infiltrates suggesting atelectasis/multifocal pneumonia. Hilar adenopathy cannot be excluded. Cardiac silhouette is normal. Atherosclerotic changes to the thoracic aorta noted. No pneumothorax. Skeletal structures intact. Impression: Acute bilateral multifocal infiltrates suggesting atelectasis and multifocal pneumonia. Adenopathy cannot be excluded. Follow-up to resolution recommended. Signed by Ugo Alvarez MD 10/27/2016 08:11 A
[2016-10-27] MEDS ORDERED: ENOXAPARIN 40 MG/0.4 ML SYRINGE (J1650) SC SCH (09:00)
[2016-10-27] MEDS: MEROPENEM INJ 1 GM in D5W MINI-BAG PLUS 100 ML IV SCH ×3 (09:00→23:37)
[2016-10-27] MEDS: ASPIRIN 81 MG ENTERIC TAB PO SCH (09:29)
[2016-10-27] MEDS: ENOXAPARIN 60 MG/0.6 ML SYR (J1650) SC SCH ×2 (09:29→20:33)
[2016-10-27] MEDS: DOCUSATE SODIUM 100 MG CAP PO SCH ×2 (09:29→20:33)
[2016-10-27] MEDS: CLOPIDOGREL 75 MG TAB PO SCH ×2 (09:30→20:33)
[2016-10-27] MEDS: METOPROLOL TART 12.5 MG PER 1/2 TAB PO SCH ×2 (09:30→20:38)
[2016-10-27] MEDS: NS 1,000 ML IV SCH (09:35)
[2016-10-27] MEDS: ONDANSETRON 4MG/2ML VIAL (J2405) IV PRN (18:03)
[2016-10-27] MEDS: SIMVASTATIN 40 MG TAB PO SCH (20:33)
--- NOTE | 2016-10-27 20:59 | ECGEPIP ---
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
[2016-10-27] MEDS ORDERED: VANCOMYCIN HCL 1,000 MG, VIAL MATE ADAPTER 1 EACH in D5W 250 ML IV SCH (21:00)
--- NOTE | 2016-10-27 21:18 | HPE ---
DATE OF ADMISSION: 10/27/2016 The time the patient was seen was this morning around 3 a.m. PRIMARY CARE PROVIDER: Kiara Moody PA-C CANAL DRIVER: Dr. Metzger CHIEF COMPLAINT: Cannot breathe. HISTORY OF PRESENT ILLNESS: 81-year-old female with past medical history of chronic pulmonary obstructive disease (COPD) bronchitis, coronary artery disease status post stent in 2012, hyperlipidemia, hypertension, tobacco abuse, macular degeneration, recent hospitalization three days ago due to community acquired pneumonia and also influenza A. The patient was discharged on prednisone and the patient also received azithromycin in the hospital. The patient presented with increased shortness of breath. Per patient she was having severe trouble breathing around 10 p.m. last night which woke her up from sleep and she tried an inhaler at home and did not produce any improvement; therefore, emergency medical services (EMS) was called and she was transported to the emergency room. Per patient, she was discharged three days ago and she was fine for two days; however, yesterday morning she had some dyspnea from walking around and she felt more tired and things got worse overnight. Per patient she was not on oxygen at home; however she was using 9 liters of nasal cannula in the emergency room. In addition, she denies any fever or chills; however, she admits to feeling very hot and sweaty. Also she stated that she has stopped smoking for around two weeks and she used to smoke about one pack per day for the past 60 years. She also denies any chest pain, denies any abdominal pain, denies any vomiting, admits to some nausea, denies any diarrhea, admits to constipation. Her last bowel movement was several days ago. ALLERGIES: CIPROFLOXACIN makes her nauseous. PENICILLIN causes her mouth to swell up. HOME MEDICATIONS: - Ventolin two puffs inhalation every 4 hours as needed - aspirin 81 mg one tablet every day - chlorthalidone 12.5 mg one tablet twice a day - vitamin D 1000 units by mouth nightly - Plavix 37.5 mg by mouth twice a day - fluticasone two sprays in each nares daily - Lisinopril 5 mg by mouth nightly - magnesium 500 mg one tablet by mouth nightly - metoprolol tartrate 12. 5 mg one tablet by mouth twice a day - nitroglycerin 0.4 mg sublingual every 5 minutes taken as needed - potassium chloride 10 mEq one tablet by mouth twice a day - prednisone 10 mg pack - PreserVision one tablet by mouth daily - Advair discus 250/50 mcg inhalation twice a day - simvastatin 40 mg one tablet by mouth at bedtime PAST MEDICAL HISTORY: 1. COPD. 2. Bronchitis, not on any oxygen at home. 3. Coronary artery disease status post unstable angina and cardiac stent in 2013. 4. Hyperlipidemia. 5. Hypertension. 6. Tobacco abuse. 7. Macular degeneration. 8. Allergies. 9. Hypomagnesemia. PAST SURGICAL HISTORY: Cardiac stent placement in 2013. SOCIAL HISTORY The patient quit smoking two weeks ago, used to smoke one pack per day for the past 60 years. She denies any drinking or recreational drug use. The patient is a DO NOT RESUSCITATE/DO NOT INTUBATE, (DNR/DNI). FAMILY HISTORY: Hypertension and heart disease. REVIEW OF SYSTEMS: GENERAL: The patient denies any recent traveling, admits to recent hospitalization. Denies any recent weight changes. Denies fever or chills; however, she feels very hot and sweaty. HEENT: Denies any changes with her vision, smell, hearing or taste. Admits to sputum production; however, it was whitish in color. CARDIOVASCULAR: Denies any chest pain, admits to severe trouble breathing. RESPIRATORY: Admits to severe shortness of breath, started last night. Admits to wheezing. GASTROINTESTINAL (GI): Denies any abdominal pain, admits to not having a bowel movement for the past several days. Admits to some nausea but no vomiting. MUSCULOSKELETAL: Admits to generalized muscle ache. ENDOCRINE: Denies any diabetes, heat or cold intolerance; however, currently she feels very hot and sweaty. NEURO: Denies any numbness or tingling, any weakness on any side of her body. HEMATOLOGY/ONCOLOGY: Denies any bleeding anywhere. PHYSICAL EXAMINATION VITAL SIGNS: Temperature 98.9, pulse 62, respirations 22, blood pressure 106/70, was saturating at 96% on 5 liters of nasal cannula. GENERAL: The patient is a well-developed, well-nourished elderly female who looks younger than her age who is alert and oriented times three. She appears to be in moderate distress, sitting up in her bed, leaning forward. HEENT: Normocephalic atraumatic. Extraocular muscles intact. Moist mucous membranes. Neck supple. No neck lymphadenopathy. CARDIOVASCULAR: Regular rate and rhythm. S1, S2. The patient does have at least 2/6 systolic heart murmur. LUNGS: Diffuse wheezing and rales. There was poor air entrance bilaterally. ABDOMEN: Positive bowel sounds. Soft, nontender, nondistended. No peritoneal signs. No ecchymosis. EXTREMITIES: No edema, clubbing or cyanosis. SKIN: Warm and dry. NEUROLOGIC: Cranial nerves II-XII intact. No focal neurologic deficit. LABORATORY DATA: WBC 17.9, hemoglobin 15, hematocrit 44 with platelet count of 371, MCV 91.1, neutrophils 15.6. Sodium 136, potassium 4.1, chloride 97, bicarbonate 28, anion gap 11, BUN 14, creatinine 0.88, GFR greater than 60, fasting glucose 141, calcium 9.4, magnesium 1.7, total bilirubin 0.7, direct bilirubin 0.3, AST 12, ALT 14, alkaline phosphatase 65, total CK 59, CK MB 4.4, Troponin 0.68, C-reactive protein (CRP) less than 0.3. BNP elevated at 366. Total protein 6.8, albumin 3.5, TSH is currently pending. The patient had an arterial blood gas (ABG) in the emergency room which shows pH 7.431, PCO2 42.7, PO2 32, and oxygen sat ting at 61.4%, venous blood base excess was 3 which was elevated. Blood culture times two results are pending. The patient did have a PA and lateral chest x-ray that showed preliminary result is pending. Raw film was reviewed, compared to portable chest x-ray on October 19, 2016 it appeared that the patient does have an increased infiltrate on the right> Left side. CT chest has been ordered, result is pending as well. ASSESSMENT AND PLAN: 81-year-old female with past medical history of chronic pulmonary obstructive disease (COPD) with bronchitis, coronary artery disease status post unstable angina and cardiac stent in 2012, hyperlipidemia, hypertension, tobacco abuse, macular degeneration, recent hospitalization for pneumonia and influenza presented with: 1. Severe Sepsis 2/2 Multifocal PNA. Pt also with hypercapnic, hypoxic respiratory failure. In addition, the patient does have an elevated troponin of 0.68. The patient was initially discussed about transferring to [place] due to the elevated troponin. However, the physician at [place] believes the troponin elevated was likely secondary to sepsis; therefore, the transfer was not done. At this point will start the patient on antibiotics, meropenem with vancomycin. The patient did receive imipenem with vancomycin in the emergency room. Will continue to monitor the patient. Will also start patient on DuoNeb treatment, Solu-Medrol 14 mg intravenous (IV) every 8 hours for underlying COPD exacerbation. 2. COPD exacerbation. Continue DuoNeb and IV steroids. Continue to monitor. 3. NSTEMI 2/2 Severe sepsis - Elevated troponin 0.68. Will continue to trend cardiac markers every six hours and will repeat EKG as well. 4. Hyperglycemia. Glucose of 141; however, the patient does not have a history of diabetes. Will continue to monitor at this point. 5. Hypomagnesemia with magnesium of 1.7. Will repeat as needed. The patient does take supplementation at home. Will supplement as needed. 6. Feeling hot. Will check TSH, result is pending. 7. History of hypertension. Will only give metoprolol tartrate 25 mg twice a day at this point due to the patient's blood pressure appears to be soft. Will restart the patient on lisinopril and chlorthalidone if needed. 8. Coronary artery disease status post unstable angina and a stent in 2012. Will continue aspirin and Plavix and beta christina. The patient did have a loading dose of 325 mg of aspirin in the emergency room. Will continue the patient's home daily dose for now. 9. History of tobacco abuse. The patient used to smoke one pack per day for the past six years; however, she quit two weeks ago. At this point she does not want any nicotine patch. Will continue to monitor. 10. Deep venous thrombosis (DVT) prophylaxis: Will continue the patient on Lovenox. The patient has been discussed with the attending physician, Dr. Britton. My preceptor for this patient encounter was Dr. Britton. The preceptor was physically present in the building during the encounter and was fully available as needed. All aspects of the patient interview, examination, medical decision making process, and medical care plan development were reviewed and approved by the preceptor. The preceptor is aware and concurs with the plan as stated in the body of this note and will attest to such by his co-signature. ARMANDO
--- NOTE | 2016-10-27 22:10 | ECGEPIP ---
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
[2016-10-28] VITALS (32 sets, daily range): BP systolic 79–117; BP diastolic 11–63
[2016-10-28 00:33] LABS: CALCIUM LEVEL 8.1 MG/DL (8.8-10.2); GLOMERULAR FILTRATION RATE 56.8 (>32); MAGNESIUM LEVEL 2.2 MG/DL (1.8-2.4); POTASSIUM SERUM 3.9 MEQ/L (3.5-5.1)
[2016-10-28] MEDS: NS 1,000 ML IV SCH (01:49)
[2016-10-28] MEDS: IPRATROPIUM 0.5MG/ALBUTEROL 2.5MG INH SOL UD 3ML (DUONEB)(J7620) NEB SCH ×4 (02:23→19:46)
[2016-10-28] MEDS ORDERED: FIORICET TAB PO ONE (04:00)
[2016-10-28] MEDS ORDERED: MORPHINE 2 MG/ML 1ML SYRINGE As Ordered ONE (04:21)
[2016-10-28] MEDS ORDERED: MORPHINE 2 MG/ML 1ML SYRINGE IV ONE ×3 (04:30→08:30)
[2016-10-28 04:36] LABS: VENOUS BASE EXCESS 0.7 (-2.0-2.0); VENOUS O2 SATURATION 91.4 % (60.0-80.0); VENOUS PARTIAL PRESSURE CO2 36.1 mmHg (38.0-50.0); VENOUS PARTIAL PRESSURE O2 60.1 mmHg (30.0-50.0); VENOUS STANDARD HCO3 24.9 MEQ/L; VENOUS TOTAL CO2 25.5 MEQ/L (24.0-28.0)
[2016-10-28 04:57] LABS: EOS # 0.1 K/mm3 (0.0-0.50); EOS % 0.6 % (0.0-3.0); LARGE UNSTAINED CELL # 0.1 K/mm3 (0.0-0.4); LARGE UNSTAINED CELL % 0.4 % (0.0-4.0); LYMPH % 4.4 % (24.0-44.0); MEAN CORPUSCULAR HEMOGLOBIN 31.3 pg (27.0-33.0); MEAN CORPUSCULAR HGB CONC 33.5 g/dl (32.0-36.5); MEAN CORPUSCULAR VOLUME 93.4 fl (80.0-96.0); MONO # 0.8 K/mm3 (0.0-0.8); MONO % 3.7 % (0.0-5.0); NEUTROPHILS # 18.9 K/mm3 (1.8-7.7); NEUTROPHILS % 90.9 % (36.0-66.0); PLATELET COUNT, AUTOMATED 270 k/mm3 (150-450); RED CELL DISTRIBUTION WIDTH 12.9 % (11.5-14.5); WHITE BLOOD COUNT 20.8 K/mm3 (4.0-10.0)
[2016-10-28] MEDS ORDERED: NS 500 ML IV ONE ×2 (05:00→07:00)
[2016-10-28 05:10] LABS: CALCIUM LEVEL 7.8 MG/DL (8.8-10.2); CREATININE FOR GFR 0.96 MG/DL (0.55-1.02); GLOMERULAR FILTRATION RATE 59.5 (>32)
--- NOTE | 2016-10-28 06:04 | IPN ---
DATE: 10/28/2016 TIME PATIENT WAS SEEN: Earlier in the morning at 3:40. Resident doctor and the evening attending were emergency paged regarding the patient has a new headache and also right-sided jaw pain, at the time she was tachycardiac. An emergent stat electrocardiogram (EKG) and cardiac marker were initially ordered. Later on, we also added lactic acid, venous blood gas. When the patient was seen in the room, she admits to feeling much worse compared to the day prior. She also has trouble breathing and severe jaw pain, which she requested pain medication. Morphine were given to the patient along side with Fioricet. The patient's pain has improved at this point. Cardiac marker came back shows that her troponin was 5.98, elevated compared to this morning, which was 4.94. At this point, Dr. Britton has offered the patient to be either considering transferring to [place] or staying in her hospital for symptomatic relief. The patient initially refused to be going to [place]. However, when we called the patient's daughter, the patient's daughter, would like the patient to be going to [place] and the patient decided to wait until daughter come in and make a decision together. At this point, the patient is already on appropriate medication for non-ST segment elevation myocardial infarction (NSTEMI), including aspirin, Plavix, beta blockers, statin, as well as therapeutic Lovenox. However , we would like to obtain the patient's opinion on whether to contact [facility] for possibly further care including possible cardiac catheterization, which was initially refused by [facility] on admission yesterday morning due to they believe the patient's troponin elevation at that time was only 0.68, was due to sepsis. However, this troponin has elevated further today. This evening was 5.98. It could be still be sepsis. However, we would like to leave the decision to the patient and her family regarding possibly try to ask for [facility] again for the transfer. The patient has been discussed with the attending doctor, Dr. Britton. My preceptor for this patient encounter was Dr. Britton . The preceptor was physically present in the building during the encounter and was fully available. As needed, all aspects of the patient interview, examination, medical decision making process, and medical care plan development were reviewed and approved by the preceptor. The preceptor is aware and concurs with the plan as stated in the body of this note and will attest to such by his/her cosignature. ARMANDO
[2016-10-28] MEDS: methylPREDNISolone INJ 40 MG/1 ML VIAL (J2920) IV SCH ×3 (06:09→21:01)
[2016-10-28] MEDS: ENOXAPARIN 60 MG/0.6 ML SYR (J1650) SC SCH ×2 (08:00→20:59)
[2016-10-28] MEDS: ONDANSETRON 4MG/2ML VIAL (J2405) IV PRN (08:03)
[2016-10-28] MEDS: MEROPENEM INJ 1 GM in D5W MINI-BAG PLUS 100 ML IV SCH ×2 (08:27→16:12)
[2016-10-28] MEDS: METOPROLOL TART 12.5 MG PER 1/2 TAB PO SCH ×2 (09:00→20:43)
[2016-10-28] MEDS: DOCUSATE SODIUM 100 MG CAP PO SCH ×2 (09:57→21:01)
[2016-10-28] MEDS: ASPIRIN 81 MG ENTERIC TAB PO SCH (09:58)
[2016-10-28] MEDS: CLOPIDOGREL 75 MG TAB PO SCH ×2 (09:58→21:01)
--- NOTE | 2016-10-28 11:58 | REP ---
PORTABLE CHEST: AP portable view of the chest is performed and compared with a prior study of 10/27/2016. There is no pneumothorax. There is cardiomegaly. There is vascular congestion. Bibasilar infiltrates are again noted. There appears to be mild interstitial edema. There is calcification of the thoracic aorta. IMPRESSION: Cardiomegaly with vascular congestion and mild interstitial edema. Bibasilar infiltrates essentially unchanged. No pneumothorax. Signed by Tariq Zheng MD 10/28/2016 01:26 P
--- NOTE | 2016-10-28 12:07 | IPNPDOC ---
Subjective Date Seen The patient was seen on 10/28/16. Subjective Chief Complaint/HPI The patient is a 81-year-old female admitted with a reason for visit of Hcap, Severe Sepsis. Events since last encounter patient having intermittent jaw pain and chest discomfort with palpitation , continues to have cough and shortness of breath. no fever or chills, no nausea or vomiting or diarrhea. Discussed with patient and daughter about transferring to [place] for cardiac catheterization. Explained that even after transfer they may not do the cardiac cath immediately they will want her pneumonia to be adequately treated before doing catheterization. Patient wanted to get a little better from her pneumonia before going down to [place]. Explained that in view of her sepsis and heart attack she may have sudden cardiac arrest then as per her wishes we will not be resuscitating her. Daughter and patient understood the risks. Objective Physical Examination General Exam: Positive: Alert, Cooperative, Mild Distress Eye Exam: Positive: Conjunctiva & lids normal, EOMI, PERRLA ENT Exam: Positive: Atraumatic, Mucous membr. moist/pink, Pharynx Normal Chest Exam: Positive: Rales, Rhonchi Heart Exam: Positive: Normal S1, Normal S2, Regular Rhythm, Tachycardic Telemetry: Positive: Tachycardia Abdomen Exam: Positive: Normal bowel sounds, Soft, Negative: Hepatospenomegaly, Tenderness Extremity Exam: Positive: Normal pulses, Negative: Clubbing, Cyanosis, Edema Skin Exam: Positive: Nl turgor and temperature, Negative: Breakdown, Rash Assessment /Plan Problems (1) Myocardial ischemia due to inadequate myocardial oxygen supply Status: Acute Problem Text: Secondary NSTEMI due to demand ischemia from sepsis , hypotension and hypoxia will continue with asa, clopidogrel , statin and lovenox bid. discussed with patient and daughter regarding cardiac catheterization . Patient says she want s to feel better from her pneumonia before going down to [place]. (2) Severe sepsis Status: Acute Problem Text: due to multifocal pneumonia. lactate continues to be elevated. (3) HCAP (healthcare-associated pneumonia) Status: Acute Problem Text: secondary bacterial pneumonia after influenza vs HCAP will continue with Meropenem and vanco (4) Acute respiratory failure with hypoxia Status: Acute Problem Text: due to multifocal pneumonia. continue oxygen supplementation. (5) CAD S/P percutaneous coronary angioplasty Status: Acute Problem Text: had cardiac stent in 2012. (6) Hyperlipidemia Status: Chronic (7) COPD exacerbation Status: Acute Problem Text: will continue nebulizations, steroids (8) Macular degeneration Status: Chronic Plan/VTE VTE Prophylaxis Ordered?: Yes VS, I&O, 24H, Fishbone Vital Signs/I&O Vital Signs Date Time Temp Pulse Resp B/P Pulse Ox O2 Delivery O2 Flow Rate FiO2 10/28/16 08:27 20 Nasal Cannula 10/28/16 07:43 116 91/11 10/28/16 04:45 4.0 10/28/16 04:35 96 10/27/16 23:59 99.4 10/27/16 01:03 94 I&O- Last 24 Hours up to 6 AM 10/28/16 05:59 Intake Total 2095 ml Output Total 925 ml Balance 1170 ml Laboratory Data 24H LABS Laboratory Tests 2 10/27/16 11:54: Creatine Kinase MB 24.3H, Creatine Kinase MB Relative Index 14.04H, Total Creatine Kinase 173, Troponin I 4.94*H 10/27/16 23:49: Anion Gap 10, Blood Urea Nitrogen 21H, Creatinine 1.00, Sodium Level 135L, Potassium Level 3.9, Chloride Level 98, Carbon Dioxide Level 27, Calcium Level 8.1L, Glomerular Filtration Rate 56.8, Magnesium Level 2.2 10/28/16 04:28: Creatine Kinase MB 25.3H, Creatine Kinase MB Relative Index 13.31H, Total Creatine Kinase 190, Troponin I 5.98#*H, Anion Gap 9, Blood Urea Nitrogen 19H, Creatinine 0.96, Sodium Level 135L, Potassium Level 4.0, Chloride Level 99, Carbon Dioxide Level 27, Calcium Level 7.8L, Glomerular Filtration Rate 59.5, White Blood Count 20.8H, Red Blood Count 3.88L, Hemoglobin 12.1, Hematocrit 36.2 , Mean Corpuscular Volume 93.4, Mean Corpuscular Hemoglobin 31.3, Mean Corpuscular Hemoglobin Concent 33.5, Red Cell Distribution Width 12.9, Platelet Count 270, Neutrophils (%) (Auto) 90.9H, Lymphocytes (%) (Auto) 4.4L, Monocytes (%) (Auto) 3.7, Eosinophils (%) (Auto) 0.6, Basophils (%) (Auto) 0.0, Neutrophils # (Auto) 18.9H, Lymphocytes # (Auto) 1.0L, Monocytes # (Auto) 0.8, Eosinophils # (Auto) 0.1, Basophils # (Auto) 0.0, Blood Gas Bicarbonate Standard 24.9, Lactic Acid Level 2.7*H, Large Unclassified Cells # 0.1, Large Unclassified Cells % 0.4, Venous Blood Base Excess 0.7, Venous Blood pH 7.447H, Venous Blood Partial Pressure CO2 36.1L, Venous Blood Partial Pressure O2 60.1H , Venous Blood Total Carbon Dioxide 25.5, Venous Blood HCO3 24.4, Venous Blood Oxygen Saturation 91.4H CBC/BMP Laboratory Tests 10/27/16 23:49 Calcium Level 8.1 L 10/28/16 04:28 Calcium Level 7.8 L, Red Blood Count 3.88 L, Mean Corpuscular Volume 93.4, Mean Corpuscular Hemoglobin 31.3, Mean Corpuscular Hemoglobin Concent 33.5, Red Cell Distribution Width 12.9, Neutrophils (%) (Auto) 90.9 H, Lymphocytes (%) (Auto) 4.4 L, Monocytes (%) (Auto) 3.7, Eosinophils (%) (Auto) 0.6, Basophils (%) (Auto ) 0.0, Neutrophils # (Auto) 18.9 H, Lymphocytes # (Auto) 1.0 L, Monocytes # ( Auto) 0.8, Eosinophils # (Auto) 0.1, Basophils # (Auto) 0.0 Microbiology Microbiology 10/27/16 Blood Culture - Preliminary, Resulted No growth after 24 hours . All specim... 10/27/16 Blood Culture - Preliminary, Resulted No growth after 24 hours . All specim... BRITTANI CHOI MD Oct 28, 2016 08:58
[2016-10-28] MEDS ORDERED: MORPHINE 2 MG/ML 1ML SYRINGE IV PRN (12:30)
--- NOTE | 2016-10-28 12:49 | RO ---
DATE OF PROCEDURE: 10/28/2016 PREPROCEDURE DIAGNOSES: Myocardial infarction, hypertension, need for cardiac monitoring. POSTPROCEDURE DIAGNOSES: Myocardial infarction, hypertension, need for cardiac monitoring. PROCEDURE: Attempted left subclavian central line. SURGEON: Artis Hughes MD DOCUMENTATION SPECIALIST: ANESTHESIA: DESCRIPTION OF PROCEDURE: As soon as the patient was covered with the drape, she began to become pathologically claustrophobic and started to move around and wiggle her shoulder. Nonetheless, I infiltrated the left infraclavicular fossa. I found the vein on the second pass; however, she started to have quite pronounced shoulder motion, and I did not think that the procedure was safe to continue. I did try to wire it once and the wire would not go. Therefore, I abandoned the procedure. If the central line is needed for pressor support, I will return and sedate the patient. She may need to be intubated and paralyzed in order to accomplish this if it comes to that. ARMANDO
--- NOTE | 2016-10-28 14:45 | ECHO ---
DATE OF STUDY: 10/28/2016 REFERRING PHYSICIAN: Dr. Yvrose Bishop INDICATION: Abnormal ECG. HEIGHT: 153 cm. WEIGHT: 58 kilograms. MEASUREMENTS: Aortic root: 3.0 cm Ventricular septum: 1.36 cm Posterior wall: 1.08 cm Left ventricle diastole: 4.4 cm LVOT: 1.9 cm Inferior vena cava: 2.2 cm with marked reduction of respiratory variation DOPPLER MEASUREMENTS: Aortic valve velocity: 94.6 cm/s LVOT velocity: 60.9 cm/s LVOT VTI: 12.8 cm Mild mitral regurgitation. Very tricuspid regurgitation. Estimated right ventricle systolic pressure: At least 74 mmHg assuming a right atrial pressure of at least 20 mmHg MITRAL ANNULAR TISSUE DOPPLER: E/A fusion showing sinus tachycardia. DESCRIPTION: Rhythm was sinus tachycardia. No pericardial effusion. This was a moderately technically difficult echocardiogram. This was a 2D, M-mode, color flow Doppler, and pulse wave Doppler examination. CONCLUSIONS: 1. Suggestive of severe elevation of estimated right ventricular systolic pressure (at least 74 mmHg). Normal right ventricle size with hyperdynamic right ventricle (RV) systolic function. Mild right ventricular hypertrophy. Mild tricuspid regurgitation. 2. Mild focal hypertrophy of the basal anterior ventricular septum. Akinesis of the left ventricle apex and the mid antral septal and mid intraseptal left ventricle (LV) wall segments. Probably normal left ventricle (LV) wall motion and thickening elsewhere. However, moderately technically difficulty for endocardial visualization. Visual appearance of mild reduction of LV systolic function. Left ventricular function 50% by visual estimate. 3. Unable to assess LV diastolic function in the setting of sinus tachycardia with resultant fusion of the early rapid filling phase with atrial filling phase. 4. Mild aortic valve sclerosis. No aortic regurgitation. 5. Moderate technically difficult echocardiogram.
[2016-10-28] MEDS ORDERED: VANCOMYCIN HCL 1,000 MG, VIAL MATE ADAPTER 1 EACH in D5W 250 ML IV SCH (18:00)
[2016-10-28] MEDS: SIMVASTATIN 40 MG TAB PO SCH (21:00)
[2016-10-29] VITALS (25 sets, daily range): BP systolic 80–131; BP diastolic 45–69
[2016-10-29] MEDS: MEROPENEM INJ 1 GM in D5W MINI-BAG PLUS 100 ML IV SCH ×3 (00:33→16:00)
[2016-10-29] MEDS: IPRATROPIUM 0.5MG/ALBUTEROL 2.5MG INH SOL UD 3ML (DUONEB)(J7620) NEB SCH ×4 (02:00→19:40)
[2016-10-29 03:00] LABS: EOS # 0.1 K/mm3 (0.0-0.50); LARGE UNSTAINED CELL % 0.2 % (0.0-4.0); LYMPH # 0.7 K/mm3 (1.5-4.5); LYMPH % 4.9 % (24.0-44.0); MEAN CORPUSCULAR HGB CONC 33.3 g/dl (32.0-36.5); MEAN CORPUSCULAR VOLUME 93.1 fl (80.0-96.0); MONO # 0.4 K/mm3 (0.0-0.8); MONO % 2.9 % (0.0-5.0); PLATELET COUNT, AUTOMATED 204 k/mm3 (150-450); RED CELL DISTRIBUTION WIDTH 12.9 % (11.5-14.5); WHITE BLOOD COUNT 14.2 K/mm3 (4.0-10.0)
[2016-10-29 03:32] LABS: ANION GAP 9 MEQ/L (8-16); BLOOD UREA NITROGEN 22 MG/DL (7-18); CALCIUM LEVEL 7.5 MG/DL (8.8-10.2); CARBON DIOXIDE LEVEL 26 MEQ/L (21-32); CHLORIDE LEVEL 100 MEQ/L (98-107); CREATININE FOR GFR 0.78 MG/DL (0.55-1.02); GLOMERULAR FILTRATION RATE > 60.0 (>32); GLUCOSE, FASTING 196 MG/DL (83-110); SODIUM LEVEL 135 MEQ/L (136-145)
[2016-10-29] MEDS: VANCOMYCIN HCL 1,000 MG, VIAL MATE ADAPTER 1 EACH in D5W 250 ML IV SCH ×2 (05:38→17:33)
[2016-10-29] MEDS: methylPREDNISolone INJ 40 MG/1 ML VIAL (J2920) IV SCH ×3 (05:38→21:03)
[2016-10-29] MEDS: ASPIRIN 81 MG ENTERIC TAB PO SCH (08:27)
[2016-10-29] MEDS: CLOPIDOGREL 75 MG TAB PO SCH ×2 (08:27→21:03)
[2016-10-29] MEDS: METOPROLOL TART 12.5 MG PER 1/2 TAB PO SCH (08:28)
[2016-10-29] MEDS: DOCUSATE SODIUM 100 MG CAP PO SCH ×2 (08:28→21:01)
[2016-10-29] MEDS: ENOXAPARIN 60 MG/0.6 ML SYR (J1650) SC SCH ×2 (08:28→21:01)
--- NOTE | 2016-10-29 09:00 | ECGEPIP ---
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
--- NOTE | 2016-10-29 09:01 | ECGEPIP ---
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
--- NOTE | 2016-10-29 09:41 | ECGEPIP ---
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
--- NOTE | 2016-10-29 10:18 | PHACANCOPD ---
PHARMACY VANCOMYCIN DOSING Pt Demographics Demographics Patient Age:81 , Weight:60.100 , Gender: female Adjusted Body Weight Date: 10/27/16, Adjusted Body Weight: [58] Kg Events Past 24 Hours Events Past 24 Hours: YES: Change in CrCl, NO: Dialysis, Diuretic Therapy, Elevation in WBC, Fever, Other, Pending Diagnostics, Pending Procedures Vancomycin Vancomycin indication: HCAP/SEPSIS Vancomycin Target Ranges: 15-20 mcg/ml Vancomycin Load Y/N: No Load Dose Date Time Vancomycin Load Dose: Date: Time: Vancomycin Dose Date: 10/29/16. Current Vancomycin Dose: [1g IV q12h @06] Date: 10/27/16. Current Vancomycin Dose: [1 GM IV Q24H] Intermittent Dosing?: No Labs Labs Item Value Date Time White Blood Count 17.9 K/mm3 H 10/27/16 0008 White Blood Count 27.0 K/mm3 H 10/27/16 0619 White Blood Count 20.8 K/mm3 H 10/28/16 0428 White Blood Count 14.2 K/mm3 H 10/29/16 0251 Vancomycin Level Trough 5.6 UG/ML L 10/28/16 1722 Creatinine 0.78 MG/DL 10/29/16 0251 Creatinine 0.96 MG/DL 10/28/16 0428 Creatinine 1.00 MG/DL 10/27/16 2349 Micro Microbiology 10/27/16 Blood Culture - Preliminary, Resulted No Growth after 48 hours. All Specime... 10/27/16 Blood Culture - Preliminary, Resulted No Growth after 48 hours. All Specime... Creatinine Clearance Date:10/29/16. Creatinine Clearance: [53 ml/min]. Date:10/27/16. Creatinine Clearance: [46.7]CALCULATED. Pending Labs Vanco trough scheduled 10/30 @05:00 Assessment and Plan Maintaining Current Dose?: No Reason for dose change: Trough too low Pharmacist Note Pharmacist Note Date: 10/29/16. Pharmacist note: initial vancomycin dosing was complicated, pt received vancomycin 750mg IV on 10/27 @~05:00 (nursing documentation was not accurate), followed by a 1g dose on 10/27 @21:00. Vanco trough was drawn 20 hours after the second dose and came back at 5.6. Since her SCr had slightly improved I changed her dosing to 1g q12h last night. I have a trough scheduled for tomorrow morning. Influenza screen was positive on 10/19 for A H3. All other cultures have been NGTD. We will continue to monitor and follow up with levels in the morning. Alireza Hill Pharm.D. Oct 29, 2016 10:18
--- NOTE | 2016-10-29 10:41 | IPNPDOC ---
Subjective Date Seen The patient was seen on 10/29/16. Subjective Chief Complaint/HPI The patient is a 81-year-old female admitted with a reason for visit of Hcap, Severe Sepsis. Events since last encounter feels the same as yesterday , though requiring less oxygen , very weak and tired , still very tachycardic have not been able to give her any beta christina as her systolic Bp < 100 Objective Physical Examination General Exam: Positive: Alert, Cooperative, Mild Distress Eye Exam: Positive: Conjunctiva & lids normal, EOMI, PERRLA ENT Exam: Positive: Atraumatic, Mucous membr. moist/pink, Pharynx Normal Chest Exam: Positive: Rales, Rhonchi Heart Exam: Positive: Normal S1, Normal S2, Regular Rhythm, Tachycardic Telemetry: Positive: Tachycardia Abdomen Exam: Positive: Normal bowel sounds, Soft, Negative: Hepatospenomegaly, Tenderness Extremity Exam: Positive: Normal pulses, Negative: Clubbing, Cyanosis, Edema Skin Exam: Positive: Nl turgor and temperature, Negative: Breakdown, Rash Assessment /Plan Problems (1) Myocardial ischemia due to inadequate myocardial oxygen supply Status: Acute Problem Text: Secondary NSTEMI due to demand ischemia from sepsis , hypotension and hypoxia will continue with asa, clopidogrel , statin and lovenox bid and beta christina if BP permits. discussed with patient and daughter regarding cardiac catheterization . Patient says she want s to feel better from her pneumonia before going down to [place]. (2) Severe sepsis Status: Acute Problem Text: due to multifocal pneumonia. lactate continues to be elevated. (3) HCAP (healthcare-associated pneumonia) Status: Acute Problem Text: secondary bacterial pneumonia after influenza vs HCAP will continue with Meropenem and vanco (4) Acute respiratory failure with hypoxia Status: Acute Problem Text: due to multifocal pneumonia. continue oxygen supplementation. (5) CAD S/P percutaneous coronary angioplasty Status: Acute Problem Text: had cardiac stent in 2012. (6) Hyperlipidemia Status: Chronic (7) COPD exacerbation Status: Acute Problem Text: will continue nebulizations, steroids (8) Macular degeneration Status: Chronic Plan/VTE VTE Prophylaxis Ordered?: Yes VS, I&O, 24H, Fishbone Vital Signs/I&O Vital Signs Date Time Temp Pulse Resp B/P Pulse Ox O2 Delivery O2 Flow Rate FiO2 10/29/16 09:00 110 94/45 Nasal Cannula 2.0 3/25/17 08:00 97.9 18 95 10/27/16 01:03 94 I&O- Last 24 Hours up to 6 AM 10/29/16 06:00 Intake Total 1605.5 ml Output Total 750 ml Balance 855.5 ml Laboratory Data 24H LABS Laboratory Tests 2 10/28/16 11:01: Creatine Kinase MB 28.9H, Creatine Kinase MB Relative Index 15.53H, Lactic Acid Level 3.4*H, Total Creatine Kinase 186, Troponin I 5.02*H 10/28/16 15:29: Lactic Acid Followup at 4 Hours 4.4*H 10/28/16 17:22: Vancomycin Level Trough 5.6L 10/28/16 18:42: Creatine Kinase MB 41.5H, Creatine Kinase MB Relative Index 14.31H, Total Creatine Kinase 290H, Troponin I 6.89#*H 10/29/16 02:51: Anion Gap 9, White Blood Count 14.2H, Red Blood Count 3.37L, Hemoglobin 10.5L, Hematocrit 31.4L, Mean Corpuscular Volume 93.1, Mean Corpuscular Hemoglobin 31.0 , Mean Corpuscular Hemoglobin Concent 33.3, Red Cell Distribution Width 12.9, Platelet Count 204, Neutrophils (%) (Auto) 91.0H, Lymphocytes (%) (Auto) 4.9L, Monocytes (%) (Auto) 2.9, Eosinophils (%) (Auto) 1.0, Basophils (%) (Auto) 0.0, Neutrophils # (Auto) 13.0H, Lymphocytes # (Auto) 0.7L, Monocytes # (Auto) 0.4, Eosinophils # (Auto) 0.1, Basophils # (Auto) 0.0, Blood Urea Nitrogen 22H, Creatinine 0.78, Sodium Level 135L, Potassium Level 4.0, Chloride Level 100, Carbon Dioxide Level 26, Calcium Level 7.5L, Total Creatine Kinase 193H, Creatine Kinase MB 25.8H, Creatine Kinase MB Relative Index 13.36H, Glomerular Filtration Rate > 60.0, Large Unclassified Cells # 0.0, Large Unclassified Cells % 0.2, Troponin I 6.97*H CBC/BMP Laboratory Tests 10/29/16 02:51 Calcium Level 7.5 L, Total Creatine Kinase 193 H, Red Blood Count 3.37 L, Mean Corpuscular Volume 93.1, Mean Corpuscular Hemoglobin 31.0, Mean Corpuscular Hemoglobin Concent 33.3, Red Cell Distribution Width 12.9, Neutrophils (%) (Auto ) 91.0 H, Lymphocytes (%) (Auto) 4.9 L, Monocytes (%) (Auto) 2.9, Eosinophils (% ) (Auto) 1.0, Basophils (%) (Auto) 0.0, Neutrophils # (Auto) 13.0 H, Lymphocytes # (Auto) 0.7 L, Monocytes # (Auto) 0.4, Eosinophils # (Auto) 0.1, Basophils # (Auto) 0.0 Microbiology Microbiology 10/27/16 Blood Culture - Preliminary, Resulted No Growth after 48 hours. All Specime... 10/27/16 Blood Culture - Preliminary, Resulted No Growth after 48 hours. All Specime... BRITTANI CHOI MD Oct 29, 2016 10:41
[2016-10-29] MEDS: CARVedilol 3.125 MG TAB PO SCH ×2 (11:19→21:00)
[2016-10-29] MEDS: SIMVASTATIN 40 MG TAB PO SCH (21:03)
[2016-10-29 23:17] LABS: ANION GAP 8 MEQ/L (8-16); BLOOD UREA NITROGEN 23 MG/DL (7-18); CALCIUM LEVEL 8.2 MG/DL (8.8-10.2); CARBON DIOXIDE LEVEL 27 MEQ/L (21-32); CHLORIDE LEVEL 97 MEQ/L (98-107); CREATININE FOR GFR 0.89 MG/DL (0.55-1.02); GLOMERULAR FILTRATION RATE > 60.0 (>32); GLUCOSE, FASTING 166 MG/DL (83-110); MAGNESIUM LEVEL 2.4 MG/DL (1.8-2.4); POTASSIUM SERUM 4.4 MEQ/L (3.5-5.1); SODIUM LEVEL 132 MEQ/L (136-145)
[2016-10-30] VITALS (16 sets, daily range): BP systolic 92–135; BP diastolic 50–79; O2SAT 94
[2016-10-30] MEDS: MEROPENEM INJ 1 GM in D5W MINI-BAG PLUS 100 ML IV SCH ×3 (00:06→16:06)
[2016-10-30] MEDS: IPRATROPIUM 0.5MG/ALBUTEROL 2.5MG INH SOL UD 3ML (DUONEB)(J7620) NEB SCH ×4 (01:01→20:46)
[2016-10-30 05:21] LABS: BASO % 0.1 % (0.0-1.0); EOS # 0.2 K/mm3 (0.0-0.50); EOS % 1.8 % (0.0-3.0); LARGE UNSTAINED CELL # 0.1 K/mm3 (0.0-0.4); LARGE UNSTAINED CELL % 0.5 % (0.0-4.0); LYMPH % 8.5 % (24.0-44.0); MEAN CORPUSCULAR HGB CONC 33.1 g/dl (32.0-36.5); MEAN CORPUSCULAR VOLUME 93.7 fl (80.0-96.0); MONO # 0.4 K/mm3 (0.0-0.8); NEUTROPHILS # 9.3 K/mm3 (1.8-7.7); NEUTROPHILS % 85.2 % (36.0-66.0); PLATELET COUNT, AUTOMATED 222 k/mm3 (150-450); WHITE BLOOD COUNT 10.9 K/mm3 (4.0-10.0)
[2016-10-30] MEDS: methylPREDNISolone INJ 40 MG/1 ML VIAL (J2920) IV SCH ×3 (05:28→21:56)
[2016-10-30 05:33] LABS: ANION GAP 9 MEQ/L (8-16); BLOOD UREA NITROGEN 22 MG/DL (7-18); CARBON DIOXIDE LEVEL 27 MEQ/L (21-32); CHLORIDE LEVEL 98 MEQ/L (98-107); CREATININE FOR GFR 0.82 MG/DL (0.55-1.02); GLOMERULAR FILTRATION RATE > 60.0 (>32); GLUCOSE, FASTING 174 MG/DL (83-110); POTASSIUM SERUM 4.2 MEQ/L (3.5-5.1); SODIUM LEVEL 134 MEQ/L (136-145)
--- NOTE | 2016-10-30 05:52 | PHACANCOPD ---
PHARMACY VANCOMYCIN DOSING Pt Demographics Demographics Patient Age:81 , Weight:60.100 , Gender: female Adjusted Body Weight Date: 10/27/16, Adjusted Body Weight: [60.1] Kg. USING ACTUAL WT Vancomycin Vancomycin indication: HCAP/SEPSIS Vancomycin Target Ranges: 15-20 mcg/ml Vancomycin Load Y/N: No Load Dose Date Time Vancomycin Load Dose: Date: Time: Vancomycin Dose Date: 10/29/16. Current Vancomycin Dose: [1g IV q12h @06] Date: 10/27/16. Current Vancomycin Dose: [1 GM IV Q24H] Intermittent Dosing?: No Labs Micro Microbiology 10/27/16 Blood Culture - Preliminary, Resulted No Growth after 72 hours. All specime... 10/27/16 Blood Culture - Preliminary, Resulted No Growth after 72 hours. All specime... Creatinine Clearance Date:10/29/16. Creatinine Clearance: [53 ml/min]. Date:10/27/16. Creatinine Clearance: [46.7]CALCULATED. Assessment and Plan Maintaining Current Dose?: No Reason for dose change: Trough too high Pharmacist Note Pharmacist Note Date: 10/30/16. Pharmacist note:LUIS THIS AM REPORTED 20.1 Will adjust Vancomycin regimen to 1 GM IV Q24H beginning at 1000 today D/T patient age and size related accumulation .Will continue to follow levels and labs Date: 10/29/16. Pharmacist note: initial vancomycin dosing was complicated, pt received vancomycin 750mg IV on 10/27 @~05:00 (nursing documentation was not accurate), followed by a 1g dose on 10/27 @21:00. Vanco trough was drawn 20 hours after the second dose and came back at 5.6. Since her SCr had slightly improved I changed her dosing to 1g q12h last night. I have a trough scheduled for tomorrow morning. Influenza screen was positive on 10/19 for A H3. All other cultures have been NGTD. We will continue to monitor and follow up with levels in the morning. HORTENSIA MCHUGH PHARMACY Oct 30, 2016 05:52
[2016-10-30] MEDS: ENOXAPARIN 60 MG/0.6 ML SYR (J1650) SC SCH ×2 (08:48→20:15)
[2016-10-30] MEDS: ASPIRIN 81 MG ENTERIC TAB PO SCH (08:48)
[2016-10-30] MEDS: DOCUSATE SODIUM 100 MG CAP PO SCH ×2 (08:48→20:14)
[2016-10-30] MEDS: CARVedilol 3.125 MG TAB PO SCH ×2 (08:49→20:14)
[2016-10-30] MEDS: CLOPIDOGREL 75 MG TAB PO SCH ×2 (08:49→20:15)
[2016-10-30] MEDS: VANCOMYCIN HCL 1,000 MG, VIAL MATE ADAPTER 1 EACH in D5W 250 ML IV SCH (09:38)
--- NOTE | 2016-10-30 09:49 | IPNPDOC ---
Subjective Date Seen The patient was seen on 10/30/16. Subjective Chief Complaint/HPI The patient is a 81-year-old female admitted with a reason for visit of Hcap, Severe Sepsis. Events since last encounter becoming very tachycardic and sob on minimal exertion , still with cough and sob , BPs better will try to give 2 doses of coreg today. no fever or chills, no anusea or vomiting or diarrhea, no further episodes of jaw pain. Objective Physical Examination General Exam: Positive: Alert, Cooperative, Mild Distress Eye Exam: Positive: Conjunctiva & lids normal, EOMI, PERRLA ENT Exam: Positive: Atraumatic, Mucous membr. moist/pink, Pharynx Normal Chest Exam: Positive: Rales, Rhonchi Heart Exam: Positive: Normal S1, Normal S2, Regular Rhythm, Tachycardic Telemetry: Positive: Tachycardia Abdomen Exam: Positive: Normal bowel sounds, Soft, Negative: Hepatospenomegaly, Tenderness Extremity Exam: Positive: Normal pulses, Negative: Clubbing, Cyanosis, Edema Skin Exam: Positive: Nl turgor and temperature, Negative: Breakdown, Rash Assessment /Plan Problems (1) Myocardial ischemia due to inadequate myocardial oxygen supply Status: Acute Problem Text: Secondary NSTEMI due to demand ischemia from sepsis , hypotension and hypoxia will continue with asa, clopidogrel , statin and lovenox bid and beta christina if BP permits. discussed with patient and daughter regarding cardiac catheterization . Patient says she want s to feel better from her pneumonia before going down to [place]. (2) Severe sepsis Status: Acute Problem Text: due to multifocal pneumonia. lactate continues to be elevated. (3) HCAP (healthcare-associated pneumonia) Status: Acute Problem Text: secondary bacterial pneumonia after influenza vs HCAP will continue with Meropenem and vanco (4) Acute respiratory failure with hypoxia Status: Acute Problem Text: due to multifocal pneumonia. continue oxygen supplementation. (5) CAD S/P percutaneous coronary angioplasty Status: Acute Problem Text: had cardiac stent in 2012. (6) Hyperlipidemia Status: Chronic (7) COPD exacerbation Status: Acute Problem Text: will continue nebulizations, steroids (8) Macular degeneration Status: Chronic Plan/VTE VTE Prophylaxis Ordered?: Yes VS, I&O, 24H, Fishbone Vital Signs/I&O Vital Signs Date Time Temp Pulse Resp B/P Pulse Ox O2 Delivery O2 Flow Rate FiO2 10/30/16 07:48 94 Nasal Cannula 2.0 10/30/16 05:00 90 19 99/63 10/30/16 04:00 98.6 10/27/16 01:03 94 I&O- Last 24 Hours up to 6 AM 10/30/16 06:00 Intake Total 810 ml Output Total 925 ml Balance -115 ml Laboratory Data 24H LABS Laboratory Tests 2 10/29/16 11:07: Creatine Kinase MB 17.5H, Creatine Kinase MB Relative Index 11.14H, Lactic Acid Level 3.2*H, Total Creatine Kinase 157, Troponin I 5.53#*H 10/29/16 15:31: Lactic Acid Followup at 4 Hours 2.4*H 10/29/16 22:44: Anion Gap 8, Blood Urea Nitrogen 23H, Creatinine 0.89, Sodium Level 132L, Potassium Level 4.4, Chloride Level 97L, Carbon Dioxide Level 27, Calcium Level 8.2L, Glomerular Filtration Rate > 60.0, Magnesium Level 2.4 10/30/16 05:05: Creatine Kinase MB 8.4H, Creatine Kinase MB Relative Index 10.50H, Total Creatine Kinase 80, Troponin I 2.93#*H, Anion Gap 9, Blood Urea Nitrogen 22H, Creatinine 0.82, Sodium Level 134L, Potassium Level 4.2, Chloride Level 98, Carbon Dioxide Level 27, Calcium Level 8.0L, Glomerular Filtration Rate > 60.0, White Blood Count 10.9H, Red Blood Count 3.40L, Hemoglobin 10.6L, Hematocrit 31.9L, Mean Corpuscular Volume 93.7, Mean Corpuscular Hemoglobin 31.0, Mean Corpuscular Hemoglobin Concent 33.1, Red Cell Distribution Width 13.0, Platelet Count 222, Neutrophils (%) (Auto) 85.2H, Lymphocytes (%) (Auto) 8.5L, Monocytes (%) (Auto) 4.0, Eosinophils (%) (Auto) 1.8, Basophils (%) (Auto) 0.1, Neutrophils # (Auto) 9.3H, Lymphocytes # (Auto) 1.0L, Monocytes # (Auto) 0.4, Eosinophils # (Auto) 0.2, Basophils # (Auto) 0.0, Large Unclassified Cells # 0.1 , Large Unclassified Cells % 0.5, Vancomycin Level Trough 20.7H CBC/BMP Laboratory Tests 10/29/16 22:44 Calcium Level 8.2 L 10/30/16 05:05 Calcium Level 8.0 L, Total Creatine Kinase 80, Red Blood Count 3.40 L, Mean Corpuscular Volume 93.7, Mean Corpuscular Hemoglobin 31.0, Mean Corpuscular Hemoglobin Concent 33.1, Red Cell Distribution Width 13.0, Neutrophils (%) (Auto ) 85.2 H, Lymphocytes (%) (Auto) 8.5 L, Monocytes (%) (Auto) 4.0, Eosinophils (% ) (Auto) 1.8, Basophils (%) (Auto) 0.1, Neutrophils # (Auto) 9.3 H, Lymphocytes # (Auto) 1.0 L, Monocytes # (Auto) 0.4, Eosinophils # (Auto) 0.2, Basophils # ( Auto) 0.0 Microbiology Microbiology 10/27/16 Blood Culture - Preliminary, Resulted No Growth after 72 hours. All specime... 10/27/16 Blood Culture - Preliminary, Resulted No Growth after 72 hours. All specime... BRITTANI CHOI MD Oct 30, 2016 09:49
--- NOTE | 2016-10-30 13:31 | ECGEPIP ---
Stationary ECG Study 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 Nonspecific ST-T abnormalities. Decreased heart rate compared with 10/28/2016 at 11:06 AM. Electronically Signed On 10-30-2016 13:31:40 EDT by Manny Burton
[2016-10-30] MEDS: SIMVASTATIN 40 MG TAB PO SCH (20:15)
[2016-10-31] VITALS (12 sets, daily range): BP systolic 96–134; BP diastolic 53–70
[2016-10-31] MEDS: MEROPENEM INJ 1 GM in D5W MINI-BAG PLUS 100 ML IV SCH ×4 (00:26→23:27)
[2016-10-31] MEDS: IPRATROPIUM 0.5MG/ALBUTEROL 2.5MG INH SOL UD 3ML (DUONEB)(J7620) NEB SCH ×4 (01:29→19:37)
[2016-10-31 04:58] LABS: BASO % 0.1 % (0.0-1.0); EOS # 0.1 K/mm3 (0.0-0.50); EOS % 0.8 % (0.0-3.0); LARGE UNSTAINED CELL # 0.1 K/mm3 (0.0-0.4); LARGE UNSTAINED CELL % 1.1 % (0.0-4.0); LYMPH % 10.4 % (24.0-44.0); MEAN CORPUSCULAR HEMOGLOBIN 30.6 pg (27.0-33.0); MEAN CORPUSCULAR HGB CONC 33.5 g/dl (32.0-36.5); MEAN CORPUSCULAR VOLUME 91.3 fl (80.0-96.0); MONO # 0.5 K/mm3 (0.0-0.8); MONO % 5.2 % (0.0-5.0); NEUTROPHILS # 8.1 K/mm3 (1.8-7.7); NEUTROPHILS % 82.5 % (36.0-66.0); PLATELET COUNT, AUTOMATED 205 k/mm3 (150-450); RED CELL DISTRIBUTION WIDTH 12.8 % (11.5-14.5); WHITE BLOOD COUNT 9.8 K/mm3 (4.0-10.0)
[2016-10-31 05:05] LABS: ANION GAP 7 MEQ/L (8-16); BLOOD UREA NITROGEN 25 MG/DL (7-18); CALCIUM LEVEL 7.7 MG/DL (8.8-10.2); CARBON DIOXIDE LEVEL 29 MEQ/L (21-32); CHLORIDE LEVEL 95 MEQ/L (98-107); CREATININE FOR GFR 0.78 MG/DL (0.55-1.02); GLOMERULAR FILTRATION RATE > 60.0 (>32); GLUCOSE, FASTING 202 MG/DL (83-110); POTASSIUM SERUM 4.4 MEQ/L (3.5-5.1); SODIUM LEVEL 131 MEQ/L (136-145)
[2016-10-31] MEDS: methylPREDNISolone INJ 40 MG/1 ML VIAL (J2920) IV SCH ×2 (05:43→18:10)
[2016-10-31] MEDS: CLOPIDOGREL 75 MG TAB PO SCH ×2 (08:02→20:25)
[2016-10-31] MEDS: ASPIRIN 81 MG ENTERIC TAB PO SCH (08:02)
[2016-10-31] MEDS: DOCUSATE SODIUM 100 MG CAP PO SCH ×2 (08:02→20:26)
[2016-10-31] MEDS: CARVedilol 3.125 MG TAB PO SCH (08:02)
[2016-10-31] MEDS ORDERED: ROPIvacaine 0.5% 30 ML INJECTION (J2795) ONE ×2 (10:41→10:44)
[2016-10-31] MEDS ORDERED: EPINEPHrine INJ 1 MG/ML 1ML VIAL/AMP ONE (10:41)
[2016-10-31] MEDS ORDERED: NOREPINEPHRINE 4 MG/4 ML AMP ONE (10:43)
[2016-10-31] MEDS: VANCOMYCIN HCL 1,000 MG, VIAL MATE ADAPTER 1 EACH in D5W 250 ML IV SCH (10:43)
[2016-10-31] MEDS ORDERED: dexameTHASONE 10 MG/1 ML VIAL PRES.FREE (J1100) ONE (10:44)
[2016-10-31] MEDS ORDERED: LIDOCAINE 1% MDV 20ML VIAL ONE (10:44)
--- NOTE | 2016-10-31 11:12 | IPNPDOC ---
Subjective Date Seen The patient was seen on 10/31/16. Subjective Chief Complaint/HPI The patient is a 81-year-old female admitted with a reason for visit of Hcap, Severe Sepsis. Events since last encounter slowly improving cough and shortness of breath , BP improving will try to increase her betablocker as tolerated. , WBC count improved, oxygen requirement decreasing, tachycardia better, Objective Physical Examination General Exam: Positive: Alert, Cooperative, Mild Distress Eye Exam: Positive: Conjunctiva & lids normal, EOMI, PERRLA ENT Exam: Positive: Atraumatic, Mucous membr. moist/pink, Pharynx Normal Chest Exam: Positive: Normal air movement, Rales Heart Exam: Positive: Normal S1, Normal S2, Regular Rhythm, Tachycardic Telemetry: Positive: Tachycardia Abdomen Exam: Positive: Normal bowel sounds, Soft, Negative: Hepatospenomegaly, Tenderness Extremity Exam: Positive: Normal pulses, Negative: Clubbing, Cyanosis, Edema Skin Exam: Positive: Nl turgor and temperature, Negative: Breakdown, Rash Assessment /Plan Problems (1) Myocardial ischemia due to inadequate myocardial oxygen supply Status: Acute Problem Text: Secondary NSTEMI due to demand ischemia from sepsis , hypotension and hypoxia will continue with asa, clopidogrel , statin and lovenox bid and beta christina started discussed with patient and daughter regarding cardiac catheterization . Patient says she wants to feel better from her pneumonia before going down to [place]. echo reviewed, EF of 50%, pulmonary hypertension and right heart failure. regional wall motion abnormalities of the left ventricle suggested anterior AMI (2) Severe sepsis Status: Acute Problem Text: due to multifocal pneumonia. lactate continues to be elevated. (3) HCAP (healthcare-associated pneumonia) Status: Acute Problem Text: secondary bacterial pneumonia after influenza vs HCAP will continue with Meropenem and vanco (4) Acute respiratory failure with hypoxia Status: Acute Problem Text: due to multifocal pneumonia. continue oxygen supplementation. (5) CAD S/P percutaneous coronary angioplasty Status: Acute Problem Text: had cardiac stent in 2012. (6) Hyperlipidemia Status: Chronic (7) COPD exacerbation Status: Acute Problem Text: will continue nebulizations, steroids (8) Macular degeneration Status: Chronic (9) Right heart failure Status: Chronic (10) Systolic CHF Status: Chronic (11) Pulmonary hypertension Status: Chronic Plan/VTE VTE Prophylaxis Ordered?: Yes VS, I&O, 24H, Fishbone Vital Signs/I&O Vital Signs Date Time Temp Pulse Resp B/P Pulse Ox O2 Delivery O2 Flow Rate FiO2 10/31/16 08:02 97 126/62 10/31/16 08:00 98.9 22 91 Nasal Cannula 1.0 10/27/16 01:03 94 I&O- Last 24 Hours up to 6 AM 10/31/16 05:59 Intake Total 1090 ml Output Total 1000 ml Balance 90 ml Laboratory Data 24H LABS Laboratory Tests 2 10/30/16 14:20: Lactic Acid Followup at 4 Hours 2.4*H 10/31/16 04:17: Anion Gap 7L, White Blood Count 9.8, Red Blood Count 3.64L, Hemoglobin 11.1L, Hematocrit 33.2L, Mean Corpuscular Volume 91.3, Mean Corpuscular Hemoglobin 30.6 , Mean Corpuscular Hemoglobin Concent 33.5, Red Cell Distribution Width 12.8, Platelet Count 205, Neutrophils (%) (Auto) 82.5H, Lymphocytes (%) (Auto) 10.4L, Monocytes (%) (Auto) 5.2H, Eosinophils (%) (Auto) 0.8, Basophils (%) (Auto) 0.1 , Neutrophils # (Auto) 8.1H, Lymphocytes # (Auto) 1.0L, Monocytes # (Auto) 0.5, Eosinophils # (Auto) 0.1, Basophils # (Auto) 0.0, Blood Urea Nitrogen 25H, Creatinine 0.78, Sodium Level 131L, Potassium Level 4.4, Chloride Level 95L, Carbon Dioxide Level 29, Calcium Level 7.7L, Glomerular Filtration Rate > 60.0, Large Unclassified Cells # 0.1, Large Unclassified Cells % 1.1 CBC/BMP Laboratory Tests 10/31/16 04:17 Calcium Level 7.7 L, Red Blood Count 3.64 L, Mean Corpuscular Volume 91.3, Mean Corpuscular Hemoglobin 30.6, Mean Corpuscular Hemoglobin Concent 33.5, Red Cell Distribution Width 12.8, Neutrophils (%) (Auto) 82.5 H, Lymphocytes (%) (Auto) 10.4 L, Monocytes (%) (Auto) 5.2 H, Eosinophils (%) (Auto) 0.8, Basophils (%) ( Auto) 0.1, Neutrophils # (Auto) 8.1 H, Lymphocytes # (Auto) 1.0 L, Monocytes # ( Auto) 0.5, Eosinophils # (Auto) 0.1, Basophils # (Auto) 0.0 Microbiology Microbiology 10/27/16 Blood Culture - Preliminary, Resulted No Growth after 72 hours. All specime... 10/27/16 Blood Culture - Preliminary, Resulted No Growth after 72 hours. All specime... BRITTANI CHOI MD Oct 31, 2016 11:12
[2016-10-31] MEDS ORDERED: CARVedilol 3.125 MG TAB PO ONE (12:00)
[2016-10-31] MEDS ORDERED: LORazepam 2 MG/ML VIAL (J2060) IV ONE (12:30)
[2016-10-31] MEDS ORDERED: SODIUM CHLORIDE 0.9% INJ 10 ML SYR IV PRN (16:45)
--- NOTE | 2016-10-31 17:42 | REP ---
PROCEDURE: PICC LINE INSERTION WITH SITE-RITE: 10/31/2016. The procedure was performed under the direct supervision of Dr. Bonner. The risks and benefits of the procedure were explained to the patient and informed consent was obtained. The right basilic vein was localized using ultrasound guidance. The skin was prepped and draped in a sterile fashion. 2% lidocaine was used as a local anesthetic. Using ultrasound guidance the basilic vein was cannulated and a 0.018 guidewire was inserted and advanced to the SVC using fluoroscopic guidance. The needle was removed and a 4.5 Portuguese dilator and peel-away sheath was inserted over the guide wire. A 4.5 Portuguese single lumen catheter was cut to length of 43 cm. The dilator was removed and the catheter was inserted over the guide wire with the tip ending in the SVC. The peel-away sheath was removed and the catheter was flushed with heparinized saline as per Hospital protocol. The catheter was affixed to the skin and a sterile dressing was applied. The the patient tolerated the procedure well and there were no immediate complications. 5 seconds of fluoro time was utilized for this procedure. Reviewed by DAMIEN Perry 10/31/2016 05:25 PSigned by Jarvis Bonner MD 10/31/2016 05:33 P
[2016-10-31] MEDS: SODIUM CHLORIDE 0.9% INJ 10 ML SYR IV SCH (18:11)
[2016-10-31] MEDS: ONDANSETRON 4MG/2ML VIAL (J2405) IV PRN (18:29)
[2016-10-31] MEDS: SIMVASTATIN 40 MG TAB PO SCH (20:26)
[2016-10-31] MEDS: CARVedilol 6.25 MG TAB PO SCH (20:26)
[2016-11-01] VITALS (12 sets, daily range): BP systolic 85–123; BP diastolic 52–78
[2016-11-01] MEDS: IPRATROPIUM 0.5MG/ALBUTEROL 2.5MG INH SOL UD 3ML (DUONEB)(J7620) NEB SCH ×4 (01:07→20:57)
[2016-11-01 04:48] LABS: BASO % 0.1 % (0.0-1.0); EOS # 0.1 K/mm3 (0.0-0.50); EOS % 0.9 % (0.0-3.0); LARGE UNSTAINED CELL # 0.1 K/mm3 (0.0-0.4); LARGE UNSTAINED CELL % 0.9 % (0.0-4.0); LYMPH # 1.1 K/mm3 (1.5-4.5); LYMPH % 12.8 % (24.0-44.0); MEAN CORPUSCULAR HEMOGLOBIN 31.5 pg (27.0-33.0); MEAN CORPUSCULAR HGB CONC 34.4 g/dl (32.0-36.5); MEAN CORPUSCULAR VOLUME 91.5 fl (80.0-96.0); MONO # 0.5 K/mm3 (0.0-0.8); MONO % 6.4 % (0.0-5.0); NEUTROPHILS # 6.5 K/mm3 (1.8-7.7); NEUTROPHILS % 78.9 % (36.0-66.0); PLATELET COUNT, AUTOMATED 175 k/mm3 (150-450); WHITE BLOOD COUNT 8.2 K/mm3 (4.0-10.0)
[2016-11-01 04:51] LABS: ANION GAP 6 MEQ/L (8-16); BLOOD UREA NITROGEN 23 MG/DL (7-18); CALCIUM LEVEL 7.4 MG/DL (8.8-10.2); CARBON DIOXIDE LEVEL 32 MEQ/L (21-32); CHLORIDE LEVEL 95 MEQ/L (98-107); CREATININE FOR GFR 0.81 MG/DL (0.55-1.02); GLOMERULAR FILTRATION RATE > 60.0 (>32); GLUCOSE, FASTING 166 MG/DL (83-110); POTASSIUM SERUM 4.4 MEQ/L (3.5-5.1); SODIUM LEVEL 133 MEQ/L (136-145)
[2016-11-01] MEDS: methylPREDNISolone INJ 40 MG/1 ML VIAL (J2920) IV SCH (05:26)
[2016-11-01] MEDS: SODIUM CHLORIDE 0.9% INJ 10 ML SYR IV SCH ×2 (05:27→17:30)
[2016-11-01] MEDS: MEROPENEM INJ 1 GM in D5W MINI-BAG PLUS 100 ML IV SCH ×2 (08:27→16:30)
[2016-11-01] MEDS: DOCUSATE SODIUM 100 MG CAP PO SCH ×2 (08:29→20:31)
[2016-11-01] MEDS: CARVedilol 6.25 MG TAB PO SCH (08:30)
[2016-11-01] MEDS: ASPIRIN 81 MG ENTERIC TAB PO SCH (08:31)
[2016-11-01] MEDS: CLOPIDOGREL 75 MG TAB PO SCH ×2 (08:31→20:30)
[2016-11-01] MEDS: VANCOMYCIN HCL 1,000 MG, VIAL MATE ADAPTER 1 EACH in D5W 250 ML IV SCH (10:21)
--- NOTE | 2016-11-01 11:03 | PHACANCOPD ---
PHARMACY VANCOMYCIN DOSING Pt Demographics Demographics Patient Age:81 , Weight:61.300 , Gender: female Adjusted Body Weight Date: 10/27/16, Adjusted Body Weight: [60.1] Kg. USING ACTUAL WT Vancomycin Vancomycin indication: HCAP/SEPSIS Vancomycin Target Ranges: 15-20 mcg/ml Vancomycin Load Y/N: No Load Dose Date Time Vancomycin Load Dose: Date: Time: Vancomycin Dose Date: 11/01/16. Current Vancomycin Dose: [1G IV Q18H @04] Date: 10/29/16. Current Vancomycin Dose: [1g IV q12h @06] Date: 10/27/16. Current Vancomycin Dose: [1 GM IV Q24H] Intermittent Dosing?: No Labs Micro Item Value Date Time White Blood Count 10.9 K/mm3 H 10/30/16 0505 White Blood Count 9.8 K/mm3 10/31/16 0417 White Blood Count 8.2 K/mm3 11/01/16 0410 Creatinine 0.78 MG/DL 10/31/16 0417 Creatinine 0.81 MG/DL 11/01/16 0410 Vancomycin Level Trough 20.7 UG/ML H 10/30/16 0505 Vancomycin Level Trough 11.9 UG/ML 11/01/16 0909 Microbiology 10/27/16 Blood Culture - Final, Complete NO GROWTH AFTER 5 DAYS 10/27/16 Blood Culture - Final, Complete NO GROWTH AFTER 5 DAYS Creatinine Clearance Date:10/29/16. Creatinine Clearance: [53 ml/min]. Date:10/27/16. Creatinine Clearance: [46.7]CALCULATED. Assessment and Plan Maintaining Current Dose?: No Reason for dose change: Trough too low Pharmacist Note Pharmacist Note Date: 11/01/16. Pharmacist note: Today the trough came back at 11.9mcg/ml @09. Creatinine clearance is stable and pt is improving. Dosing is being changed to 1g Q18h @04. We will continue to monitor and adjust dose as needed. Date: 10/30/16. Pharmacist note:THROGH THIS AM REPORTED 20.1 Will adjust Vancomycin regimen to 1 GM IV Q24H beginning at 1000 today D/T patient age and size related accumulation .Will continue to follow levels and labs Date: 10/29/16. Pharmacist note: initial vancomycin dosing was complicated, pt received vancomycin 750mg IV on 10/27 @~05:00 (nursing documentation was not accurate), followed by a 1g dose on 10/27 @21:00. Vanco trough was drawn 20 hours after the second dose and came back at 5.6. Since her SCr had slightly improved I changed her dosing to 1g q12h last night. I have a trough scheduled for tomorrow morning. Influenza screen was positive on 10/19 for A H3. All other cultures have been NGTD. We will continue to monitor and follow up with levels in the morning. KATHRYN CARSON [facility]ARM[facility] Nov 01, 2016 11:03
--- NOTE | 2016-11-01 13:12 | IPNPDOC ---
Subjective Date Seen The patient was seen on 11/01/16. Subjective Chief Complaint/HPI The patient is a 81-year-old female admitted with a reason for visit of Hcap, Severe Sepsis. Events since last encounter pt seen and examined, doing well, no overnight events, she was more sleepy than normal per nurse but no chest pain, no jaw pain, was complaining of some shortness of breath, Objective Physical Examination General Exam: Positive: Alert, Cooperative, Mild Distress Eye Exam: Positive: Conjunctiva & lids normal, EOMI, PERRLA ENT Exam: Positive: Atraumatic, Mucous membr. moist/pink, Pharynx Normal Chest Exam: Positive: Normal air movement, Rales Heart Exam: Positive: Normal S1, Normal S2, Regular Rhythm, Tachycardic Telemetry: Positive: Tachycardia Abdomen Exam: Positive: Normal bowel sounds, Soft, Negative: Hepatospenomegaly, Tenderness Extremity Exam: Positive: Normal pulses, Negative: Clubbing, Cyanosis, Edema Skin Exam: Positive: Nl turgor and temperature, Negative: Breakdown, Rash Assessment /Plan Problems (1) Myocardial ischemia due to inadequate myocardial oxygen supply Status: Acute Response to Treatment: Stable Problem Text: * Secondary NSTEMI due to demand ischemia from sepsis , hypotension and hypoxia * will continue with asa, clopidogrel , statin and beta christina, pt has lovenox bid for 3 days * discussed with patient and daughter regarding cardiac catheterization . Patient says she wants to feel better from her pneumonia before going down to [place]. * echo reviewed, EF of 50%, pulmonary hypertension and right heart failure. regional wall motion abnormalities of the left ventricle suggested anterior AMI * Dr Tavarez has agreed to see pt, * will transfer pt when stable (2) Severe sepsis Status: Acute Response to Treatment: Improving Problem Text: * due to multifocal pneumonia. (3) HCAP (healthcare-associated pneumonia) Status: Acute Problem Text: secondary bacterial pneumonia after influenza vs HCAP will continue with Meropenem and vanco (4) Acute respiratory failure with hypoxia Status: Acute Response to Treatment: Improving Problem Text: due to multifocal pneumonia. continue oxygen supplementation pt still requiring oxygen 1 Liter. (5) CAD S/P percutaneous coronary angioplasty Status: Acute Problem Text: had cardiac stent in 2012. (6) Hyperlipidemia Status: Chronic (7) COPD exacerbation Status: Acute Problem Text: will continue nebulizations, steroids (8) Macular degeneration Status: Chronic (9) Right heart failure Status: Chronic (10) Systolic CHF Status: Chronic (11) Pulmonary hypertension Status: Chronic Plan/VTE VTE Prophylaxis Ordered?: Yes VS, I&O, 24H, Fishbone Vital Signs/I&O Vital Signs Date Time Temp Pulse Resp B/P Pulse Ox O2 Delivery O2 Flow Rate FiO2 11/01/16 12:00 98.7 85 18 99/55 91 High Flow Cannula 1.0 10/27/16 01:03 94 I&O- Last 24 Hours up to 6 AM 11/01/16 06:00 Intake Total 1170 ml Output Total 900 ml Balance 270 ml Laboratory Data 24H LABS Laboratory Tests 2 11/01/16 04:10: Anion Gap 6L, B-Type Natriuretic Peptide 1820H, White Blood Count 8.2, Red Blood Count 3.18L, Hemoglobin 10.0L, Hematocrit 29.1L, Mean Corpuscular Volume 91.5, Mean Corpuscular Hemoglobin 31.5, Mean Corpuscular Hemoglobin Concent 34.4 , Red Cell Distribution Width 13.0, Platelet Count 175, Neutrophils (%) (Auto) 78.9H, Lymphocytes (%) (Auto) 12.8L, Monocytes (%) (Auto) 6.4H, Eosinophils (%) (Auto) 0.9, Basophils (%) (Auto) 0.1, Neutrophils # (Auto) 6.5, Lymphocytes # ( Auto) 1.1L, Monocytes # (Auto) 0.5, Eosinophils # (Auto) 0.1, Basophils # (Auto ) 0.0, Blood Urea Nitrogen 23H, Creatinine 0.81, Sodium Level 133L, Potassium Level 4.4, Chloride Level 95L, Carbon Dioxide Level 32, Calcium Level 7.4L, Glomerular Filtration Rate > 60.0, Large Unclassified Cells # 0.1, Large Unclassified Cells % 0.9 11/01/16 09:09: Vancomycin Level Trough 11.9 CBC/BMP Laboratory Tests 11/01/16 04:10 Calcium Level 7.4 L, Red Blood Count 3.18 L, Mean Corpuscular Volume 91.5, Mean Corpuscular Hemoglobin 31.5, Mean Corpuscular Hemoglobin Concent 34.4, Red Cell Distribution Width 13.0, Neutrophils (%) (Auto) 78.9 H, Lymphocytes (%) (Auto) 12.8 L, Monocytes (%) (Auto) 6.4 H, Eosinophils (%) (Auto) 0.9, Basophils (%) ( Auto) 0.1, Neutrophils # (Auto) 6.5, Lymphocytes # (Auto) 1.1 L, Monocytes # ( Auto) 0.5, Eosinophils # (Auto) 0.1, Basophils # (Auto) 0.0 Microbiology Microbiology 10/27/16 Blood Culture - Final, Complete NO GROWTH AFTER 5 DAYS 10/27/16 Blood Culture - Final, Complete NO GROWTH AFTER 5 DAYS ROGELIO MILIAN DO Nov 01, 2016 13:12
[2016-11-01] MEDS: predniSONE 20 MG TAB PO SCH ×2 (13:27→20:32)
[2016-11-01] MEDS: ATORVASTATIN 20 MG TAB PO SCH (20:40)
[2016-11-01] MEDS: BISOPROLOL FUM 2.5 MG PER 1/2TAB PO SCH (21:00)
[2016-11-02] VITALS (8 sets, daily range): BP systolic 86–123; BP diastolic 54–61
[2016-11-02] MEDS: MEROPENEM INJ 1 GM in D5W MINI-BAG PLUS 100 ML IV SCH ×4 (00:27→23:42)
[2016-11-02] MEDS: IPRATROPIUM 0.5MG/ALBUTEROL 2.5MG INH SOL UD 3ML (DUONEB)(J7620) NEB SCH ×4 (01:32→20:19)
[2016-11-02] MEDS: VANCOMYCIN HCL 1,000 MG, VIAL MATE ADAPTER 1 EACH in D5W 250 ML IV SCH ×2 (04:22→21:42)
[2016-11-02 04:54] LABS: MEAN CORPUSCULAR HGB CONC 33.7 g/dl (32.0-36.5); RED CELL DISTRIBUTION WIDTH 13.6 % (11.5-14.5); WHITE BLOOD COUNT 9.4 K/mm3 (4.0-10.0)
[2016-11-02 05:15] LABS: ANION GAP 7 MEQ/L (8-16); BLOOD UREA NITROGEN 20 MG/DL (7-18); CALCIUM LEVEL 7.3 MG/DL (8.8-10.2); CARBON DIOXIDE LEVEL 33 MEQ/L (21-32); CHLORIDE LEVEL 95 MEQ/L (98-107); GLOMERULAR FILTRATION RATE > 60.0 (>32); GLUCOSE, FASTING 197 MG/DL (83-110); POTASSIUM SERUM 4.6 MEQ/L (3.5-5.1); SODIUM LEVEL 135 MEQ/L (136-145)
[2016-11-02] MEDS: SODIUM CHLORIDE 0.9% INJ 10 ML SYR IV SCH ×2 (05:47→17:27)
[2016-11-02] MEDS: BISOPROLOL FUM 2.5 MG PER 1/2TAB PO SCH ×2 (08:24→21:00)
[2016-11-02] MEDS: predniSONE 20 MG TAB PO SCH ×2 (08:24→21:43)
[2016-11-02] MEDS: ASPIRIN 81 MG ENTERIC TAB PO SCH (08:25)
[2016-11-02] MEDS: SPIRONOLACTONE 25 MG TAB PO SCH (08:25)
[2016-11-02] MEDS: CLOPIDOGREL 75 MG TAB PO SCH ×2 (08:25→21:42)
[2016-11-02] MEDS: DOCUSATE SODIUM 100 MG CAP PO SCH ×2 (08:25→21:43)
--- NOTE | 2016-11-02 15:32 | IPNPDOC ---
Subjective Date Seen The patient was seen on 11/02/16. Subjective Chief Complaint/HPI The patient is a 81-year-old female admitted with a reason for visit of Hcap, Severe Sepsis. Events since last encounter pt seen and examined, has no chest pain at this point, no shortness of breath but still requiring oxygen Objective Physical Examination General Exam: Positive: Alert, Cooperative, Mild Distress Eye Exam: Positive: Conjunctiva & lids normal, EOMI, PERRLA ENT Exam: Positive: Atraumatic, Mucous membr. moist/pink, Pharynx Normal Chest Exam: Positive: Normal air movement, Rales Heart Exam: Positive: Normal S1, Normal S2, Regular Rhythm, Tachycardic Telemetry: Positive: Tachycardia Abdomen Exam: Positive: Normal bowel sounds, Soft, Negative: Hepatospenomegaly, Tenderness Extremity Exam: Positive: Normal pulses, Negative: Clubbing, Cyanosis, Edema Skin Exam: Positive: Nl turgor and temperature, Negative: Breakdown, Rash Assessment /Plan Problems (1) Myocardial ischemia due to inadequate myocardial oxygen supply Status: Acute Response to Treatment: Stable Problem Text: * Secondary NSTEMI due to demand ischemia from sepsis , hypotension and hypoxia * will continue with asa, clopidogrel , statin and beta christina, pt has lovenox bid for 3 days * discussed with patient and daughter regarding cardiac catheterization . Patient says she wants to feel better from her pneumonia before going down to [place]. * echo reviewed, EF of 50%, pulmonary hypertension and right heart failure. regional wall motion abnormalities of the left ventricle suggested anterior AMI * Dr Tavarez following (2) Severe sepsis Status: Acute Response to Treatment: Improving Problem Text: * due to multifocal pneumonia. (3) HCAP (healthcare-associated pneumonia) Status: Acute Problem Text: secondary bacterial pneumonia after influenza vs HCAP will continue with Meropenem and vanco (4) Acute respiratory failure with hypoxia Status: Acute Response to Treatment: Improving Problem Text: due to multifocal pneumonia. continue oxygen supplementation pt still requiring oxygen 1 Liter. (5) CAD S/P percutaneous coronary angioplasty Status: Acute Problem Text: had cardiac stent in 2012. (6) Hyperlipidemia Status: Chronic (7) COPD exacerbation Status: Acute Problem Text: will continue nebulizations, steroids (8) Macular degeneration Status: Chronic (9) Right heart failure Status: Chronic (10) Systolic CHF Status: Chronic (11) Pulmonary hypertension Status: Chronic Plan/VTE VTE Prophylaxis Ordered?: Yes VS, I&O, 24H, Fishbone Vital Signs/I&O Vital Signs Date Time Temp Pulse Resp B/P Pulse Ox O2 Delivery O2 Flow Rate FiO2 11/02/16 12:00 Room Air 11/02/16 11:45 97.2 92 20 109/57 93 11/02/16 08:00 1.0 10/27/16 01:03 94 I&O- Last 24 Hours up to 6 AM 11/02/16 06:00 Intake Total 1500 ml Output Total 1075 ml Balance 425 ml Laboratory Data 24H LABS Laboratory Tests 2 11/02/16 04:23: Anion Gap 7L, Blood Urea Nitrogen 20H, Creatinine 0.80, Sodium Level 135L, Potassium Level 4.6, Chloride Level 95L, Carbon Dioxide Level 33H, Calcium Level 7.3L, Glomerular Filtration Rate > 60.0 CBC/BMP Laboratory Tests 11/02/16 04:23 Calcium Level 7.3 L, Red Blood Count 3.37 L, Mean Corpuscular Volume 92.0, Mean Corpuscular Hemoglobin 31.0, Mean Corpuscular Hemoglobin Concent 33.7, Red Cell Distribution Width 13.6 Microbiology Microbiology 10/27/16 Blood Culture - Final, Complete NO GROWTH AFTER 5 DAYS 10/27/16 Blood Culture - Final, Complete NO GROWTH AFTER 5 DAYS ROGELIO MILIAN DO Nov 02, 2016 15:32
--- NOTE | 2016-11-02 16:43 | CR ---
CARDIOLOGY CONSULTATION: DATE: 11/01/2016 REFERRING PHYSICIAN: Michelle Baig MD INDICATION: For consultation: 1. Acute [id number] myocardial infarction (NSTEMI). 2. Acute diastolic heart failure. HISTORY OF PRESENT ILLNESS: Nguyen Jimenez is an 82-year-old woman who has known coronary artery disease. She was hospitalized on this occasion on 10/27/2016 after presenting with dyspnea. She was found to have hypercapnic hypoxic respiratory failure with the initial differential diagnosis including acute heart failure versus hospital acquired pneumonia and also exacerbation of chronic obstructive pulmonary disease (COPD). During the hospitalization she was noted to have initially some indeterminate ranged troponins but since then troponin has risen to 5. She reports that during this hospitalization she has had two episodes of sharp pain but no pain in her chest. Her BNP level was found to be elevated and she was felt to have heart failure. Echocardiogram Doppler 10/28/2016 was suggestive of severe elevation of estimated right ventricle systolic pressure, (at least 74 mmHg). Normal right ventricle size with hyperdynamic right ventricle (RV) diastolic function and mild right ventricular hypertrophy. Mild tricuspid regurgitation. Mild focal hypertrophy of the basal anterior ventricular septum. Akinesis of the left ventricle apex and mid anterior-septal and mid inferior-septal left ventricle (LV) wall segments. Moderately technically difficult for endocardiac visualization. Mild reduction in overall LV systolic function. Left ventricular ejection fraction (LVEF) of 50% by visual estimate. Unable to assess LV diastolic function in the setting of sinus tachycardia with resultant effusion of the early rapid filling phase with the atrial filling phase. Mild aortic valve sclerosis. No aortic regurgitation. She has been treated with a course of antibiotics. Initially she had leukocytosis which has resolved. She is currently requiring oxygen ongoing. She presently does not have any dyspnea at rest but does get dyspnea with minimal activity in her IC room. No leg or ankle edema that she has been aware of. She had a cough prior to admission but this has since resolved. No syncope. No palpitations. No embolic events. No claudication. PRIOR CARDIAC HISTORY: I shall summarize this patient's known prior cardiac history. She had an episode of unstable angina September 2012 for which she underwent cardiac catheterization at [facility] on 09/28/[address] Coleman Haile. At that time she was found to have two vessel coronary artery disease (CAD) with the presence of 99% stenosis of a relatively small ramus intermediate branch. The right coronary artery was dominant and had a 99% ostial stenosis. At that time she underwent successful placement of a 3.5 x 12 mm Promus Element drug-eluding stent placed to the ostium of the right coronary artery. At that time her LV systolic function was normal with normal wall motion on the MCMAHON projection. Left ventricular ejection fraction (LVEF) of 65%. The patient's last Regadenoson stress SPECT myocardial perfusion study was jan 2015 which showed normal LV wall motion and normal Regadenoson stress SPECT myocardial perfusion images. The patient is known to have systemic hypertension. Up until this admission, she has been a long standing cigarette smoker. She is known to have mixed hyperlipidemia and an abnormal ECG. Heart failure is a new diagnosis for her. She is known to have premature ventricular contractions (PVCs). OTHER PAST MEDICAL AND SURGICAL HISTORY: COPD, systemic hypertension, coronary artery disease. RCA ostial drug eluting stent 09/28/2012. Mixed hyperlipidemia. Macular degeneration. Chronic hearing loss. Prior bronchitis. Hypomagnesemia. Carotid artery disease. SOCIAL HISTORY: DO NOT RESUSCITATE (DNR) and DO NOT INTUBATE (DNI). Quit smoking about two weeks prior to this admission. She was previously a 1 pack per day smoker for approximately 60 years. No alcohol. . She is close to her daughter. Decreased hearing. Resident of [place], [place]. SURGICAL HISTORY: Cortisone injection left knee 01/14/2016. FAMILY HISTORY: Father had a heart attack at age 58 and from accidental sanchez. Mother had diabetes and of old age. One brother with coronary disease, status past CABG. ADVERSE DRUG REACTIONS: CIPROFLOXACIN (tremors, anxiety). PENICILLINS (rash). MEDICATIONS PRIOR TO ADMISSION: - Ventolin 2 puffs every 4 hours as needed - aspirin 81 mg daily - chlorthalidone 12.5 mg twice a day - vitamin D 1000 units at bedtime - clopidogrel 37.5 mg twice a day - fluticasone two sprays per nostril as needed for allergies - lisinopril 5 mg at bedtime - magnesium oxide 500 mg at bedtime - metoprolol tartrate 12.5 mg twice a day - Nitrostat 0.4 mg sublingual every 5 minutes as needed for angina - potassium chloride extended release 10 mEq twice a day - prednisone 10 mg as directed (tapering dose) - PreserVision 1 capsule daily - Advair Diskus 1 inhalation twice a day - simvastatin 40 mg at bedtime THE PATIENT'S CURRENT MEDICATIONS IN HOSPITAL: As follows: - acetaminophen 650 mg every 4 hours as needed - acetaminophen suppository every 4 hours as needed - DuoNebs every 6 hours and every 2 hours as needed - aspirin 81 mg daily - carvedilol 6.25 mg twice a day - clopidogrel 37.5 mg twice a day - Colace 100 mg twice a day - Flonase two sprays daily as needed - MOM 30 mL twice a day as needed - meropenem 1 gram IV every 8 hours - morphine 2 mg IV every 6 hours as needed - Zofran 4 mg IV every 6 hours as needed - prednisone 40 mg by mouth every 12 hours - simvastatin 40 mg at bedtime - vancomycin 1 gram IV every 18 hours REVIEW OF SYSTEMS: Legally blind in both eyes. Has bifocal lenses. Decreased hearing for which she has hearing aids for both ears. COPD with chronic productive cough. No hemoptysis. Nocturia once a night. Vertigo. No anxiety, depression or panic attacks. Cold intolerance. Easy bruising. All other 10 point review of systems negative. PHYSICAL EXAMINATION: Pleasant, elderly woman who is not in any respiratory or psychological distress. Hard of hearing. Height 64 inches. Weight 61.3 kg. Body mass index (BMI) 23.2. Temperature 98.2. Pulse 98 (regular), respiratory rate 18, blood pressure 100/55, oxygen saturation 91% on high-flow oxygen with oxygen flow rate of 1 liter per minute. No conjunctival pallor, scleral icterus, or xanthomas. Upper and lower dentures. Oral mucosa is moist without pallor or cyanosis. Jugular venous pulsations were at 4 cm. Trachea midline. Left carotid bruit. No palpable thyroid. No clubbing, nailbed cyanosis, or splinter hemorrhages. Ecchymosis from blood draws. Mild skin pallor. No skin icterus or skin lesions. Oriented to person, place, and time. Mood and affect normal. Curvature of the spine normal. Gait not tested. Gross motor strength and tone appear normal. Respiratory expansion and effort was fair. Breath sound intensity was fair. No crackles or wheezes. No palpable apex beat. No parasternal lifts, heaves, thrills, or palpable heart sounds. First heart sound normal. Second heart sound had a loud P2 component. Grade 1 pansystolic murmur over lower left parasternal border. No S3 or S4. No diastolic murmurs. Carotids were normal in volume and contour. Left carotid bruit present. No palpable abdominal aorta. No abdominal bruits. Femoral pulses normal. Pedal pulses normal. Trace bilateral pitting edema at mid tibial level bilaterally. No varicose veins. Abdomen was soft, nontender with normal bowel sounds. No hepatosplenomegaly or organomegaly. Liver span 10 cm from right midclavicular line. Stool for occult blood not presently indicated. INVESTIGATIONS: Laboratory work 11/01/2016 shows WBC 8.2, hemoglobin 10.0, hematocrit 29.1, platelets 175, BNP 1820. Sodium 133, potassium 4.4, chloride 95. CO2 32, BUN 23, creatinine 0.1. Estimated GFR greater than 60. Glucose 166, calcium 7.4. Troponin I 10/29/2016 at 2:51 a.m. showed troponin I 6.97 with CPK 193, CPK MB 25.8 and percent CPK MB 13.36%. Lactic acid 10/28/2016 at 1529 hours was elevated at 4.4. REVIEW OF VITAL SIGNS DURING THIS HOSPITALIZATION: Show that during the early part of this hospitalization the patient had prolonged periods of hypotension with some blood pressure measurements in the low to mid 80s. ECG 10/29/2016 reported sinus tachycardia with short NJ interval with frequent PVCs, possible left atrial enlargement, poor R wave progression, possible anterior wall myocardial infarct of undetermined age, borderline low limb lead voltages, nonspecific ST-T abnormalities. Chest x-ray, PA and lateral 10/27/2016 reported acute bilateral multifocal infiltrates suggesting atelectasis and multifocal pneumonia. Adenopathy could not be excluded. Portable chest x-ray 10/28/2016 reported cardiomegaly with vascular congestion and mild interstitial edema. Bilateral infiltrates essentially unchanged. No pneumothorax. ASSESSMENT AND PLAN: 1. Acute myocardial infarction ([id number] myocardial infarction) during this hospitalization. The differential diagnosis would be secondary STEMI due to hypotension and respiratory failure and severe illness (pneumonia) versus primary acute coronary event (acute coronary plaque rupture/coronary thrombosis). She is known to have coronary disease and has had a previous coronary stent. She has had two episodes of jaw pain while in hospital. ECG is abnormal. I have spoken to the patient's and her daughter and I offered the option of transfer to [place] for cardiac catheterization with possible percutaneous coronary intervention. The patient was unable to decide this evening what she wanted to do and wanted to think about this further. I did explain to the patient that her DO NOT RESUSCITATE (DNR)/DO NOT INTUBATE (DNI) would have to be temporarily rescinded during the time that she is in the cardiac catheterization laboratory and the patient understands this. For now, continue with medical therapy. Continue aspirin and clopidogrel at the current dosages. Recommend switching her beta christina from carvedilol to a more beta 1 selective beta christina such as bisoprolol because the patient is on multiple bronchodilators and furthermore the patient still has mild hypotension and the alpha blocking properties of carvedilol are going to make that situation worse. Suggest switching from simvastatin 40 mg daily to atorvastatin 40 mg daily. 2. Heart failure (acute diastolic). At present the patient appears to be compensated. As noted above I will switch her from carvedilol to bisoprolol. I shall place her on a small dose of diuretic. 3. Coronary artery disease. As per problem #1. 4. Status post prior right coronary artery stent. As per problem #1. 5. Systemic hypertension. Presently the patient has mild hypotension. As mentioned above, I will switch her from carvedilol to bisoprolol. 6. Abnormal ECG. Continue to follow. 7. Mixed hyperlipidemia. As noted above she will be switched from simvastatin to atorvastatin. 8. Cigarette smoking. The patient is strongly encouraged to quit smoking. I explained to her that cigarette smoking increases issues with COPD as well as increasing her risk for heart attack and stroke and peripheral arterial disease as well as lung cancer. The patient is trying her best to stay off the cigarettes and so far she is doing fine in hospital without her cigarettes.
[2016-11-02] MEDS: ATORVASTATIN 20 MG TAB PO SCH (21:43)
[2016-11-03] VITALS (7 sets, daily range): BP systolic 109–127; BP diastolic 55–61
[2016-11-03] MEDS: IPRATROPIUM 0.5MG/ALBUTEROL 2.5MG INH SOL UD 3ML (DUONEB)(J7620) NEB SCH ×3 (01:16→13:30)
[2016-11-03] MEDS: SODIUM CHLORIDE 0.9% INJ 10 ML SYR IV SCH (06:00)
[2016-11-03 06:12] LABS: MEAN CORPUSCULAR HEMOGLOBIN 31.7 pg (27.0-33.0); MEAN CORPUSCULAR VOLUME 93.2 fl (80.0-96.0); RED CELL DISTRIBUTION WIDTH 13.7 % (11.5-14.5)
[2016-11-03 06:30] LABS: ANION GAP 7 MEQ/L (8-16); BLOOD UREA NITROGEN 17 MG/DL (7-18); CALCIUM LEVEL 7.6 MG/DL (8.8-10.2); CARBON DIOXIDE LEVEL 33 MEQ/L (21-32); CHLORIDE LEVEL 95 MEQ/L (98-107); CREATININE FOR GFR 0.73 MG/DL (0.55-1.02); GLOMERULAR FILTRATION RATE > 60.0 (>32); GLUCOSE, FASTING 186 MG/DL (83-110); POTASSIUM SERUM 4.5 MEQ/L (3.5-5.1); SODIUM LEVEL 135 MEQ/L (136-145)
[2016-11-03] MEDS: MEROPENEM INJ 1 GM in D5W MINI-BAG PLUS 100 ML IV SCH (07:20)
[2016-11-03] MEDS: BISOPROLOL FUM 2.5 MG PER 1/2TAB PO SCH (08:37)
[2016-11-03] MEDS: predniSONE 20 MG TAB PO SCH (08:38)
[2016-11-03] MEDS: CLOPIDOGREL 75 MG TAB PO SCH (08:38)
[2016-11-03] MEDS: DOCUSATE SODIUM 100 MG CAP PO SCH (08:39)
[2016-11-03] MEDS: ASPIRIN 81 MG ENTERIC TAB PO SCH (08:39)
[2016-11-03] MEDS: SPIRONOLACTONE 25 MG TAB PO SCH (08:39)
== END 2016-11-03 13:30 | disposition short-term general hospital (02) | DRG 871 ==
LOC: EDBD 23:31 → M ED 10-27 01:06 → M ED INP 10-27 04:42 → M PCU 10-27 16:01 → M ICU 10-28 10:06
PROVIDERS: ADMIT Internal Medicine; ATTEND Internal Medicine
PROC: 05HB33Z Insertion of Infusion Device into Right Basilic Vein, Percutaneous Approach (ICD-10-PCS; principal; 2016-10-31)
DX: A41.9 Sepsis, unspecified organism (principal); J18.9 Pneumonia, unspecified organism; I21.4 Non-ST elevation (NSTEMI) myocardial infarction; J96.01 Acute respiratory failure with hypoxia; I50.31 Acute diastolic (congestive) heart failure; J96.02 Acute respiratory failure with hypercapnia; J44.1 Chronic obstructive pulmonary disease with (acute) exacerbation; I25.10 Atherosclerotic heart disease of native coronary artery without angina pectoris; E78.2 Mixed hyperlipidemia; I11.0 Hypertensive heart disease with heart failure; H35.30 Unspecified macular degeneration; R65.20 Severe sepsis without septic shock; R73.9 Hyperglycemia, unspecified; I27.2 Other secondary pulmonary hypertension; E83.42 Hypomagnesemia; H91.93 Unspecified hearing loss, bilateral; H54.8 Legal blindness, as defined in USA; Z79.82 Long term (current) use of aspirin; Z79.02 Long term (current) use of antithrombotics/antiplatelets; Z79.52 Long term (current) use of systemic steroids; Z79.51 Long term (current) use of inhaled steroids; Z79.899 Other long term (current) drug therapy; Z88.0 Allergy status to penicillin; Z88.1 Allergy status to other antibiotic agents; Z95.5 Presence of coronary angioplasty implant and graft; Z87.891 Personal history of nicotine dependence

== ENCOUNTER → 2016-11-09 | Outpatient (REF) ==
[~2016-11-09] MED LIST changes: +ASPI81TAEC PO; +FLUT1SPR2; +MAGN1CAP PO; +METO-346 PO; +NITR4TASL SL; +POTA10CA PO; +PRED10PA2 PO
[2016-11-09 10:12] LABS: MEAN CORPUSCULAR HEMOGLOBIN 30.7 pg (27.0-33.0); MEAN CORPUSCULAR HGB CONC 32.3 g/dl (32.0-36.5); MEAN CORPUSCULAR VOLUME 95.1 fl (80.0-96.0); RED CELL DISTRIBUTION WIDTH 13.9 % (11.5-14.5); WHITE BLOOD COUNT 9.6 K/mm3 (4.0-10.0)
[2016-11-09 10:30] LABS: ANION GAP 9 MEQ/L (8-16); BLOOD UREA NITROGEN 17 MG/DL (7-18); CALCIUM LEVEL 8.1 MG/DL (8.8-10.2); CARBON DIOXIDE LEVEL 27 MEQ/L (21-32); CHLORIDE LEVEL 100 MEQ/L (98-107); CREATININE FOR GFR 0.86 MG/DL (0.55-1.02); GLOMERULAR FILTRATION RATE > 60.0 (>32); GLUCOSE, FASTING 109 MG/DL (83-110); POTASSIUM SERUM 3.7 MEQ/L (3.5-5.1); SODIUM LEVEL 136 MEQ/L (136-145)
== END ==
PROVIDERS: ATTEND Internal Medicine
DX: D72.829 Elevated white blood cell count, unspecified (principal)

== ENCOUNTER → 2016-11-15 | Outpatient (REF) ==
[2016-11-15 11:37] LABS: MEAN CORPUSCULAR HEMOGLOBIN 31.4 pg (27.0-33.0); MEAN CORPUSCULAR HGB CONC 32.3 g/dl (32.0-36.5)
[2016-11-15 11:51] LABS: ANION GAP 8 MEQ/L (8-16); BLOOD UREA NITROGEN 12 MG/DL (7-18); CALCIUM LEVEL 8.4 MG/DL (8.8-10.2); CARBON DIOXIDE LEVEL 29 MEQ/L (21-32); CHLORIDE LEVEL 104 MEQ/L (98-107); CREATININE FOR GFR 0.85 MG/DL (0.55-1.02); GLOMERULAR FILTRATION RATE > 60.0 (>32); GLUCOSE, FASTING 160 MG/DL (83-110); POTASSIUM SERUM 3.3 MEQ/L (3.5-5.1); SODIUM LEVEL 141 MEQ/L (136-145)
== END ==
PROVIDERS: ATTEND Internal Medicine
DX: I50.9 Heart failure, unspecified (principal); J18.9 Pneumonia, unspecified organism

== ENCOUNTER → 2016-11-18 | Outpatient (CLI) | payer MEDICARE, BC | LOC: M RAD 15:18 | PROVIDERS: ATTEND Internal Medicine | DX: I10 Essential (primary) hypertension (principal) ==

== ENCOUNTER → 2016-11-18 | Outpatient (REF) ==
[2016-11-18 12:30] LABS: ALBUMIN 2.7 GM/DL (3.2-5.2); ANION GAP 11 MEQ/L (8-16); BLOOD UREA NITROGEN 11 MG/DL (7-18); CARBON DIOXIDE LEVEL 27 MEQ/L (21-32); CHLORIDE LEVEL 104 MEQ/L (98-107); CREATININE FOR GFR 0.76 MG/DL (0.55-1.02); GLOMERULAR FILTRATION RATE > 60.0 (>32); GLUCOSE, FASTING 110 MG/DL (83-110); PHOSPHORUS LEVEL 2.2 MG/DL (2.5-4.9); POTASSIUM SERUM 3.3 MEQ/L (3.5-5.1); SODIUM LEVEL 142 MEQ/L (136-145)
--- NOTE | 2016-11-18 17:13 | REP ---
PA LATERAL CHEST: 11/18/2016: Clinical history: CHF. Follow-up. Comparison: 10/28/2016, 10/27/2016. Findings: Lungs are hyperinflated with flattened diaphragms, increased AP diameter, bullous emphysematous changes, pulmonary artery hypertension and some apical pleural parenchymal scarring. Some basilar fibrotic changes are also seen. There is linear and curvilinear atelectatic changes in the medial segment right middle lobe. The pulmonary edema with vascular redistribution on the previous study is resolved. There are calcified margins at the aortic arch without aneurysm. Airway intact. Bones show no acute compression deformity. Impression: 1. Some hyperinflation with COPD, PAH, bullous emphysematous changes but with subsegmental and linear atelectatic changes in the medial segment right middle lobe. No pleural effusion, acute infiltrate or parenchymal mass. 2. The pulmonary edema seen on the previous study is entirely resolved. Signed by Jarvis Bonner MD 11/19/2016 08:57 A
== END ==
PROVIDERS: ATTEND Internal Medicine
DX: I50.9 Heart failure, unspecified (principal)

== ENCOUNTER → 2016-11-23 | Outpatient (REF) ==
[2016-11-23 10:49] LABS: MEAN CORPUSCULAR HEMOGLOBIN 30.8 pg (27.0-33.0); MEAN CORPUSCULAR HGB CONC 32.6 g/dl (32.0-36.5); MEAN CORPUSCULAR VOLUME 94.5 fl (80.0-96.0); RED CELL DISTRIBUTION WIDTH 13.7 % (11.5-14.5)
[2016-11-23 10:57] LABS: ANION GAP 9 MEQ/L (8-16); BLOOD UREA NITROGEN 14 MG/DL (7-18); CALCIUM LEVEL 8.3 MG/DL (8.8-10.2); CARBON DIOXIDE LEVEL 32 MEQ/L (21-32); CHLORIDE LEVEL 100 MEQ/L (98-107); CREATININE FOR GFR 0.87 MG/DL (0.55-1.02); GLOMERULAR FILTRATION RATE > 60.0 (>32); GLUCOSE, FASTING 115 MG/DL (83-110); POTASSIUM SERUM 3.4 MEQ/L (3.5-5.1); SODIUM LEVEL 141 MEQ/L (136-145)
== END ==
PROVIDERS: ATTEND Internal Medicine
DX: I50.9 Heart failure, unspecified (principal)

== ENCOUNTER → 2016-11-30 | Outpatient (REF) ==
[2016-11-30 11:20] LABS: ALBUMIN 2.8 GM/DL (3.2-5.2); ANION GAP 5 MEQ/L (8-16); BLOOD UREA NITROGEN 17 MG/DL (7-18); CALCIUM LEVEL 8.4 MG/DL (8.8-10.2); CARBON DIOXIDE LEVEL 35 MEQ/L (21-32); CHLORIDE LEVEL 101 MEQ/L (98-107); CREATININE FOR GFR 0.91 MG/DL (0.55-1.02); GLOMERULAR FILTRATION RATE > 60.0 (>32); GLUCOSE, FASTING 130 MG/DL (83-110); MAGNESIUM LEVEL 2.8 MG/DL (1.8-2.4); PHOSPHORUS LEVEL 3.3 MG/DL (2.5-4.9); POTASSIUM SERUM 4.1 MEQ/L (3.5-5.1); SODIUM LEVEL 141 MEQ/L (136-145)
== END ==
PROVIDERS: ATTEND Internal Medicine
DX: I50.9 Heart failure, unspecified (principal)

== ENCOUNTER 2017-01-11 14:12 | Emergency (ER) | payer MEDICARE, OTHER ==
[~2017-01-11] VITALS: Ht 162.6 cm; Wt 55.8 kg
[~2017-01-11 14:12] MED LIST changes: -ATOR40TA PO; +AZIT-12 PO; -AZIT250T3 PO; -CARV3.12 PO; -FURO20TA2 PO; -METO12TA PO; +METO1TAB87 PO; +PLAV1TAB2 PO; -PLAV75TA38 PO; +PRED10TA2 PO; -SPIR25TA2 PO
[2017-01-11] MEDS ORDERED: SPIR25TA2 PO (14:25)
[2017-01-11] MEDS ORDERED: CARV3.12 PO (14:25)
[2017-01-11] MEDS ORDERED: ATOR40TA75 PO (14:25)
[2017-01-11] MEDS ORDERED: FURO20TA2 PO (14:25)
[2017-01-11 15:33] LABS: BASO # 0.1 K/mm3 (0.0-0.2); EOS # 0.4 K/mm3 (0.0-0.50); EOS % 4.6 % (0.0-3.0); LARGE UNSTAINED CELL # 0.1 K/mm3 (0.0-0.4); LARGE UNSTAINED CELL % 1.3 % (0.0-4.0); LYMPH # 3.2 K/mm3 (1.5-4.5); LYMPH % 33.9 % (24.0-44.0); MEAN CORPUSCULAR HEMOGLOBIN 29.7 pg (27.0-33.0); MEAN CORPUSCULAR HGB CONC 32.7 g/dl (32.0-36.5); MEAN CORPUSCULAR VOLUME 90.7 fl (80.0-96.0); MONO # 0.7 K/mm3 (0.0-0.8); MONO % 7.5 % (0.0-5.0); NEUTROPHILS # 4.7 K/mm3 (1.8-7.7); NEUTROPHILS % 51.8 % (36.0-66.0); PLATELET COUNT, AUTOMATED 214 k/mm3 (150-450); RED CELL DISTRIBUTION WIDTH 13.6 % (11.5-14.5); WHITE BLOOD COUNT 9.1 K/mm3 (4.0-10.0)
[2017-01-11 15:36] LABS: ANION GAP 6 MEQ/L (8-16); BLOOD UREA NITROGEN 10 MG/DL (7-18); CALCIUM LEVEL 8.9 MG/DL (8.8-10.2); CARBON DIOXIDE LEVEL 29 MEQ/L (21-32); CHLORIDE LEVEL 105 MEQ/L (98-107); CREATININE FOR GFR 0.85 MG/DL (0.55-1.02); GLOMERULAR FILTRATION RATE > 60.0 (>32); GLUCOSE, FASTING 161 MG/DL (83-110); POTASSIUM SERUM 4.1 MEQ/L (3.5-5.1); SODIUM LEVEL 140 MEQ/L (136-145)
[2017-01-11 15:37] LABS: INR 1.15
--- NOTE | 2017-01-11 15:57 | REP ---
Portable chest, single AP view the patient sitting, 01/11/2017, 03:47 p.m. Comparison is 11/18/2016. The lung merlos are clear. The medial segment right middle lobe atelectasis identified previously has resolved. Cardiac size is normal. The hanh, mediastinum, bony thorax are unremarkable. Impression: Negative portable chest. Signed by Tariq Zavala MD 01/11/2017 03:48 P
--- NOTE | 2017-01-11 16:01 | REP ---
CT HEAD WITHOUT CONTRAST: HISTORY: Infarction. COMPARISON: 02/11/2015. Areas of decreased attenuation are present in the periventricular white matter. This represents small vessel ishemic disease. There is no intraparenchymal hemorrhage, mass, or midline shift. The ventricular system is and cortical sulci are dilated consistent with mild volume loss. There is no extracerebral collection. The visualized sinuses are clear. IMPRESSION:1. Small vessel ischemic disease. 2. Mild volume loss. Signed by Dylan Red MD 01/11/2017 04:03 P
[2017-01-11 16:14] VITALS: BP 123/56
--- NOTE | 2017-01-13 11:38 | ECGEPIP ---
Stationary ECG Study 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
== END 2017-01-11 18:14 | disposition home or self-care (01) ==
LOC: M ED 16:20
DX: G45.9 Transient cerebral ischemic attack, unspecified (principal); I50.21 Acute systolic (congestive) heart failure; I25.10 Atherosclerotic heart disease of native coronary artery without angina pectoris; E78.2 Mixed hyperlipidemia; Z87.891 Personal history of nicotine dependence; I25.2 Old myocardial infarction; I10 Essential (primary) hypertension

== ENCOUNTER → 2017-01-11 | Outpatient (REF) | payer MEDICARE, OTHER ==
[~2017-01-11] MED LIST changes: +ATOR40TA PO; +CARV3.12 PO; +FURO20TA2 PO; +SPIR25TA2 PO
[2017-01-11 18:58] LABS: ALBUMIN 3.5 GM/DL (3.2-5.2); ALBUMIN/GLOBULIN RATIO 1.21 (1.00-1.93); ALKALINE PHOSPHATASE 62 U/L (45-117); ALT/SGPT 14 U/L (12-78); ANION GAP 5 MEQ/L (8-16); AST/SGOT 13 U/L (15-37); BILIRUBIN,TOTAL 0.6 MG/DL (0.2-1.0); BLOOD UREA NITROGEN 9 MG/DL (7-18); CALCIUM LEVEL 9.3 MG/DL (8.8-10.2); CARBON DIOXIDE LEVEL 31 MEQ/L (21-32); CHLORIDE LEVEL 105 MEQ/L (98-107); CHOLESTEROL LEVEL 155 MG/DL (<200); CREATININE FOR GFR 0.78 MG/DL (0.55-1.02); GLOMERULAR FILTRATION RATE > 60.0 (>32); GLUCOSE, FASTING 116 MG/DL (83-110); MAGNESIUM LEVEL 2.1 MG/DL (1.8-2.4); POTASSIUM SERUM 4.1 MEQ/L (3.5-5.1); SODIUM LEVEL 141 MEQ/L (136-145); TOTAL PROTEIN 6.4 GM/DL (6.4-8.2); TRIGLYCERIDES LEVEL 172 MG/DL (<150)
== END ==
LOC: M LAB REF 17:33
PROVIDERS: ATTEND Physician Assistant
DX: I50.21 Acute systolic (congestive) heart failure (principal); I25.10 Atherosclerotic heart disease of native coronary artery without angina pectoris; E78.2 Mixed hyperlipidemia

== ENCOUNTER → 2017-01-27 | Outpatient (CLI) | payer MEDICARE, OTHER ==
[~2017-01-27] MED LIST changes: +ATOR40TA PO; -AZIT-12 PO; +AZIT250T3 PO; +CARV3.12 PO; +FURO20TA2 PO; +METO12TA PO; -METO1TAB87 PO; -PLAV1TAB2 PO; +PLAV75TA38 PO; -PRED10TA2 PO; +SPIR25TA2 PO
--- NOTE | 2017-01-27 17:03 | REP ---
REASON: Old stroke like symptoms. PRIORS: None. Previous brain CT of 01/11/2017 showed no acute disease. TECHNIQUE: Sagittal T1. Axial T2, FLAIR, DWI and ADC. FINDINGS: The craniocervical junction is normal. There is no cerebellar tonsillar ectopia. The visualized portions of the spinal cord and neural canal are within normal limits. The ventricles and sulci are within normal limits for the patient's age. There are no extra-axial fluid collections. There is o shift of the midline structures. The deep cerebral white matter is within normal limits. Diffusion weighted images and ADC mapping shows no signal abnormality. The orbital and petrous structures, cerebellopontine angles, and posterior fossa are within normal limits. The sella turcica, cavernous and paracavernous structures are within normal limits. There is T2 hypersignal nearly filling the right maxillary sinus with evidence to suggest a slight air fluid level. The remainder of the imaged paranasal sinuses and mastoid air cells are clear. IMPRESSION: 1. 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 There is also evidence of age related volume loss with cerebral and cerebellar atrophy. 2. There is evidence of right maxillary sinusitis. Signed by Hari Ledbetter DO 01/30/2017 12:58 P
--- NOTE | 2017-01-27 17:07 | REP ---
HISTORY: Old stroke-like symptoms. COMPARISON: None. There is complete loss of signal in the A1 segment of the left anterior cerebral artery with suspected cross-filling of the A2 segment from the right. There is no evidence of an aneurysm or arteriovenous malformation. There is evidence of persistent circulation of the left posterior cerebral artery as it is seen arising from the left internal carotid artery. IMPRESSION: Findings as described above. Signed by Hari Ledbetter DO 01/30/2017 12:58 P
== END ==
LOC: M PLARAD 14:19
PROVIDERS: ATTEND Psychiatry & Neurology Neurology
DX: I63.09 Cerebral infarction due to thrombosis of other precerebral artery (principal); R47.01 Aphasia

== ENCOUNTER → 2017-02-20 | Outpatient (CLI) | payer MEDICARE, OTHER ==
[~2017-02-20] MED LIST changes: -ATOR40TA PO; +ATOR40TA75 PO; +AZIT-12 PO; -AZIT250T3 PO; -METO12TA PO; +METO1TAB87 PO; +PLAV1TAB2 PO; -PLAV75TA38 PO; +PRED10TA2 PO
[2017-02-20 18:12] LABS: ALBUMIN 3.5 GM/DL (3.2-5.2); ALBUMIN/GLOBULIN RATIO 1.13 (1.00-1.93); ALKALINE PHOSPHATASE 85 U/L (45-117); ALT/SGPT 12 U/L (12-78); ANION GAP 9 MEQ/L (8-16); AST/SGOT 13 U/L (15-37); BILIRUBIN,TOTAL 0.5 MG/DL (0.2-1.0); BLOOD UREA NITROGEN 16 MG/DL (7-18); CALCIUM LEVEL 8.9 MG/DL (8.8-10.2); CARBON DIOXIDE LEVEL 30 MEQ/L (21-32); CHLORIDE LEVEL 102 MEQ/L (98-107); CREATININE FOR GFR 0.98 MG/DL (0.55-1.02); FERRITIN 17 NG/ML (8-252); GLOMERULAR FILTRATION RATE 58.1 (>32); GLUCOSE, FASTING 160 MG/DL (83-110); PERCENT SATURATION 17.1 % (13.2-37.4); SODIUM LEVEL 141 MEQ/L (136-145); TOTAL IRON BINDING CAPACITY 339 UG/DL (250-450); TOTAL PROTEIN 6.6 GM/DL (6.4-8.2)
[2017-02-20 19:43] LABS: BASO # 0.1 K/mm3 (0.0-0.2); BASO % 0.7 % (0.0-1.0); EOS # 0.4 K/mm3 (0.0-0.50); EOS % 4.6 % (0.0-3.0); LARGE UNSTAINED CELL # 0.1 K/mm3 (0.0-0.4); LARGE UNSTAINED CELL % 1.4 % (0.0-4.0); LYMPH # 2.4 K/mm3 (1.5-4.5); LYMPH % 28.4 % (24.0-44.0); MEAN CORPUSCULAR HEMOGLOBIN 28.6 pg (27.0-33.0); MEAN CORPUSCULAR HGB CONC 32.1 g/dl (32.0-36.5); MONO # 0.6 K/mm3 (0.0-0.8); MONO % 7.2 % (0.0-5.0); NEUTROPHILS # 4.7 K/mm3 (1.8-7.7); NEUTROPHILS % 57.6 % (36.0-66.0); PLATELET COUNT, AUTOMATED 249 k/mm3 (150-450); WHITE BLOOD COUNT 8.2 K/mm3 (4.0-10.0)
== END ==
LOC: M WUC 14:52
PROVIDERS: ATTEND Physician Assistant
DX: L65.9 Nonscarring hair loss, unspecified (principal)

== ENCOUNTER 2017-04-06 15:36 | Emergency (ER) | payer MEDICARE, OTHER ==
[~2017-04-06] VITALS: Ht 162.6 cm; Wt 60.4 kg
[2017-04-06] MEDS ORDERED: GASTROGRAFIN SOLUTION 30ML (Q9963) As Ordered ONE (17:50)
[2017-04-06 18:29] LABS: ALBUMIN 3.2 GM/DL (3.2-5.2); ALKALINE PHOSPHATASE 83 U/L (45-117); ALT/SGPT 17 U/L (12-78); ANION GAP 10 MEQ/L (8-16); AST/SGOT 20 U/L (15-37); BILIRUBIN,DIRECT < 0.1 MG/DL (0.0-0.2); BILIRUBIN,TOTAL 0.4 MG/DL (0.2-1.0); BLOOD UREA NITROGEN 24 MG/DL (7-18); CALCIUM LEVEL 8.4 MG/DL (8.8-10.2); CARBON DIOXIDE LEVEL 28 MEQ/L (21-32); CHLORIDE LEVEL 105 MEQ/L (98-107); CREATININE FOR GFR 1.26 MG/DL (0.55-1.02); GLOMERULAR FILTRATION RATE 43.5 (>32); GLUCOSE, FASTING 229 MG/DL (83-110); SODIUM LEVEL 143 MEQ/L (136-145); TOTAL PROTEIN 6.1 GM/DL (6.4-8.2)
[2017-04-06 18:30] LABS: BASO # 0.1 K/mm3 (0.0-0.2); BASO % 1.1 % (0.0-1.0); EOS # 0.4 K/mm3 (0.0-0.50); EOS % 5.3 % (0.0-3.0); LARGE UNSTAINED CELL # 0.1 K/mm3 (0.0-0.4); LARGE UNSTAINED CELL % 1.2 % (0.0-4.0); LYMPH # 2.4 K/mm3 (1.5-4.5); LYMPH % 28.2 % (24.0-44.0); MEAN CORPUSCULAR HEMOGLOBIN 28.3 pg (27.0-33.0); MEAN CORPUSCULAR HGB CONC 32.6 g/dl (32.0-36.5); MONO # 0.4 K/mm3 (0.0-0.8); NEUTROPHILS # 4.9 K/mm3 (1.8-7.7); NEUTROPHILS % 59.2 % (36.0-66.0); PLATELET COUNT, AUTOMATED 204 k/mm3 (150-450); RED CELL DISTRIBUTION WIDTH 14.5 % (11.5-14.5); WHITE BLOOD COUNT 8.2 K/mm3 (4.0-10.0)
[2017-04-06] MEDS ORDERED: ISOVUE-370 76% 100ML VIAL (Q9967) As Ordered ONE (19:10)
--- NOTE | 2017-04-06 20:00 | REPUSA ---
CLINICAL HISTORY: Abdominal pain. TECHNIQUE: Multiple axial, coronal, sagittal CT images were obtained through the abdomen and pelvis after administration of intravenous contrast material. COMMENTS: The liver is of uniform attenuation without mass or defect. There is mild non-specific intrahepatic biliary ductal dilatation. The common bile duct measures up to 8 mm which is within limits of normal for the patient's age. The spleen is normal. The gallbladder is not fully distended with apparent mild thickening of the gallbladder wall which measures up to 3 mm. Consider correlation with right u pper quadrant ultrasound. The pancreas is of normal contour and attenuation characteristics. There is no evidence of adrenal mass. Both kidneys demonstrate prompt and equal nephrograms. The kidneys are normal in size, shape and con figuration. There is no evidence of renal or ureteral mass. No renal or ureteral calculi are identi fied. There is no hydroureter or hydronephrosis. There is no evidence for appendicitis. There are scattered colonic diverticulosis present without ev idence of acute diverticulitis. There is evidence of circumferential wall thickening involving desce nding colon. The wall measures up to 5 mm. Consider follow-up with colonoscopy. No evidence for sm all or large bowel obstruction. There is no evidence of abdominal ascites or lymphadenopathy. There is no evidence of intrinsic or extrinsic bladder mass. There is no pelvic ascites or lymphaden opathy. The uterus and ovaries are unremarkable. Images of the lung bases show no evidence of pleural or parenchymal mass. There are no pleural effus ions. Emphysematous changes are seen. Bibasilar scarring is noted. There is moderate sized hiatal hernia present. The bony structures are free of lytic or blastic lesions. Multilevel degenerative changes are seen i nvolving the thoracolumbar spine. Scattered calcifications are seen involving the aorta and major branches compatible with atherosclero sis. IMPRESSION: 1. The gallbladder is not fully distended with apparent mild thickening of the gallbladder wall whic h measures up to 3 mm. Mild non-specific intrahepatic biliary ductal dilatation. Consider correlati on with right upper quadrant ultrasound. 2. Evidence of circumferential wall thickening involving descending colon. Consider follow-up wit h colonoscopy. 3. Emphysematous lungs changes. Consider follow up with Chest CT. 4. Moderate sized hiatal hernia present.
[2017-04-06 20:52] VITALS: BP 126/56
--- NOTE | 2017-04-07 08:20 | ECGEPIP ---
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
--- NOTE | 2017-04-07 09:22 | ED PDOC ---
Post-Departure Follow-Up radiology report faxed to Aleisha Sanchez MD Apr 07, 2017 09:22
--- NOTE | 2017-04-07 14:40 | REP ---
CHEST, TWO VIEWS: Two views of the chest are performed and compared to multiple prior exams. There is mild bibasilar fibrotic change without evidence of acute infiltrate. The heart is normal in size and there is calcification of the thoracic aorta. The mediastinal silhouette is unchanged. There are degenerative changes of the spine. IMPRESSION: No acute pulmonary disease. Signed by Tariq Zheng MD 04/07/2017 04:00 P
== END 2017-04-06 20:53 | disposition home or self-care (01) ==
LOC: M ED 15:36
DX: R55 Syncope and collapse (principal); I25.10 Atherosclerotic heart disease of native coronary artery without angina pectoris; I25.2 Old myocardial infarction; J44.9 Chronic obstructive pulmonary disease, unspecified; I10 Essential (primary) hypertension; E78.4 Other hyperlipidemia; Z87.891 Personal history of nicotine dependence; Z98.61 Coronary angioplasty status; Z86.73 Personal history of transient ischemic attack (TIA), and cerebral infarction without residual deficits
CPT/HCPCS: 71020; 74177; 80048; 80076; 82550; 82553; 83690; 84484; 85025; 93005; 93041; 94760; 99285; Q9963; Q9967

== ENCOUNTER → 2017-04-18 | Outpatient (CLI) | payer MEDICARE, OTHER ==
[2017-04-18 17:52] LABS: ALBUMIN 3.6 GM/DL (3.2-5.2); ANION GAP 7 MEQ/L (8-16); BLOOD UREA NITROGEN 20 MG/DL (7-18); CALCIUM LEVEL 8.9 MG/DL (8.8-10.2); CARBON DIOXIDE LEVEL 30 MEQ/L (21-32); CHLORIDE LEVEL 105 MEQ/L (98-107); CREATININE FOR GFR 0.86 MG/DL (0.55-1.02); GLOMERULAR FILTRATION RATE > 60.0 (>32); GLUCOSE, FASTING 153 MG/DL (83-110); MAGNESIUM LEVEL 2.2 MG/DL (1.8-2.4); PHOSPHORUS LEVEL 4.1 MG/DL (2.5-4.9); POTASSIUM SERUM 3.9 MEQ/L (3.5-5.1); SODIUM LEVEL 142 MEQ/L (136-145)
== END ==
LOC: M WUC 12:03
PROVIDERS: ATTEND Physician Assistant
DX: I50.32 Chronic diastolic (congestive) heart failure (principal)

== ENCOUNTER → 2017-05-30 | Outpatient (REF) | payer MEDICARE, OTHER ==
[2017-05-30 19:11] LABS: ANION GAP 9 MEQ/L (8-16); BLOOD UREA NITROGEN 17 MG/DL (7-18); CALCIUM LEVEL 9.1 MG/DL (8.8-10.2); CARBON DIOXIDE LEVEL 31 MEQ/L (21-32); CHLORIDE LEVEL 102 MEQ/L (98-107); CREATININE FOR GFR 0.88 MG/DL (0.55-1.02); GLOMERULAR FILTRATION RATE > 60.0 (>32); GLUCOSE, FASTING 113 MG/DL (83-110); POTASSIUM SERUM 3.9 MEQ/L (3.5-5.1); SODIUM LEVEL 142 MEQ/L (136-145)
== END ==
LOC: M SFHCCAPE 11:35
PROVIDERS: ATTEND Physician Assistant
DX: Z01.818 Encounter for other preprocedural examination (principal); M65.321 Trigger finger, right index finger

== ENCOUNTER 2017-06-05 05:56 | Day surgery (SDC) | payer MEDICARE, OTHER ==
[~2017-06-05] VITALS: Ht 162.6 cm; Wt 58.6 kg
[2017-06-05] MEDS ORDERED: LR 1,000 ML IV SCH (06:15)
[2017-06-05] MEDS ORDERED: CLINDAMYCIN 600 MG in APPROPRIATE DILUENT 1 EA IV ONE (06:15)
[2017-06-05] MEDS ORDERED: LIDOCAINE 1% SDV INJ 30 ML VIAL As Ordered ONE (07:14)
[2017-06-05] MEDS ORDERED: MIDAZOLAM INJ 2 MG/2 ML VIAL (J2250) As Ordered ONE (07:18)
[2017-06-05] MEDS ORDERED: PROPOFOL 200 MG/20 ML VIAL As Ordered ONE (07:18)
[2017-06-05] MEDS ORDERED: fentaNYL 100 MCG/2 ML INJECTION (J3010) As Ordered ONE (07:18)
[2017-06-05 08:43] VITALS: BP 117/56
--- NOTE | 2017-06-06 12:50 | RO ---
DATE OF PROCEDURE: 06/05/2017 PREOPERATIVE DIAGNOSIS: Right fourth trigger finger. POSTOPERATIVE DIAGNOSIS: Right fourth trigger finger. PROCEDURE: Release right fourth trigger finger. SURGEON: Dr. Sarbjit Stapleton REPAIRER ART OBJECTS: ANESTHESIA: Local with sedation. ESTIMATED BLOOD LOSS: Minimal. COMPLICATIONS: None. INDICATIONS: This is an 81-year-old woman who has had persistent triggering of her right ring finger and she wished to go ahead with surgical treatment. She had failed conservative management. She understood the nature of this and the risks of bleeding, infection, damage to nerves, vessels, persistent pain, recurrence, stiffness, among others. PROCEDURE: The patient was taken to the operating room and placed in supine position after sedation was introduced. The right upper extremity was prepped and draped in the usual sterile fashion. I injected some 1% plain lidocaine over the A1 doreen of the right fourth finger after a time-out was performed. I then created a transverse incision over the A1 doreen and blunt dissection was carried out down through the subcutaneous tissue. This dissection was done longitudinally and I was able to expose the A1 doreen. This was released it is entirety with a 15 blade making sure I protected soft tissues at all times with the vein retractor and kept the neurovascular bundles off to the side. I then brought the tendons up through the wound. They seemed to be moving quite freely. They were in good condition and she was able to flex and extend her finger and could not get reproducible triggering. I again irrigated and closed the skin with #5-0 nylon sutures. Sterile dressing was applied. Tourniquet was deflated. She again was tested and had good finger range of motion with no locking or catching. She was taken to recovery room in stable condition. There were no known complications. The plan be routine postoperative.
== END 2017-06-05 08:55 | disposition home or self-care (01) ==
LOC: M SDC 05:56
PROVIDERS: ATTEND Orthopaedic Surgery
DX: M65.341 Trigger finger, right ring finger (principal); J44.9 Chronic obstructive pulmonary disease, unspecified; I50.30 Unspecified diastolic (congestive) heart failure; I11.0 Hypertensive heart disease with heart failure; E78.2 Mixed hyperlipidemia; K44.9 Diaphragmatic hernia without obstruction or gangrene; R07.9 Chest pain, unspecified; R06.02 Shortness of breath; M12.9 Arthropathy, unspecified; R29.898 Other symptoms and signs involving the musculoskeletal system; I25.10 Atherosclerotic heart disease of native coronary artery without angina pectoris; I25.2 Old myocardial infarction; Z88.0 Allergy status to penicillin; Z88.1 Allergy status to other antibiotic agents; Z79.899 Other long term (current) drug therapy; Z79.82 Long term (current) use of aspirin; Z87.891 Personal history of nicotine dependence; Z86.73 Personal history of transient ischemic attack (TIA), and cerebral infarction without residual deficits; Z95.5 Presence of coronary angioplasty implant and graft; Z78.0 Asymptomatic menopausal state; Z96.1 Presence of intraocular lens
CPT/HCPCS: 26055; J2250; J3010

== ENCOUNTER → 2017-08-08 | Outpatient (CLI) | payer MEDICARE, OTHER ==
[2017-08-08 14:42] LABS: ALBUMIN 3.9 GM/DL (3.2-5.2); ANION GAP 9 MEQ/L (8-16); BLOOD UREA NITROGEN 16 MG/DL (7-18); CALCIUM LEVEL 9.3 MG/DL (8.8-10.2); CARBON DIOXIDE LEVEL 31 MEQ/L (21-32); CHLORIDE LEVEL 103 MEQ/L (98-107); CREATININE FOR GFR 0.89 MG/DL (0.55-1.02); GLOMERULAR FILTRATION RATE > 60.0 (>32); GLUCOSE, FASTING 117 MG/DL (83-110); MAGNESIUM LEVEL 2.4 MG/DL (1.8-2.4); PHOSPHORUS LEVEL 4.2 MG/DL (2.5-4.9); SODIUM LEVEL 143 MEQ/L (136-145)
== END ==
LOC: M WUC 13:06
DX: I50.32 Chronic diastolic (congestive) heart failure (principal); E83.42 Hypomagnesemia
CPT/HCPCS: 83735

== ENCOUNTER → 2017-10-14 | Outpatient (CLI) | payer MEDICARE, OTHER | LOC: M WUC 14:09 | DX: M54.40 Lumbago with sciatica, unspecified side (principal); M51.36 Other intervertebral disc degeneration, lumbar region; M19.012 Primary osteoarthritis, left shoulder; M16.12 Unilateral primary osteoarthritis, left hip; M19.022 Primary osteoarthritis, left elbow | CPT/HCPCS: 72110 ==

== ENCOUNTER → 2017-10-18 | Outpatient (REF) | payer MEDICARE, OTHER ==
[2017-10-18 19:09] LABS: ALBUMIN 3.7 GM/DL (3.2-5.2); ANION GAP 9 MEQ/L (8-16); BLOOD UREA NITROGEN 22 MG/DL (7-18); CALCIUM LEVEL 9.3 MG/DL (8.8-10.2); CARBON DIOXIDE LEVEL 30 MEQ/L (21-32); CHLORIDE LEVEL 105 MEQ/L (98-107); CREATININE FOR GFR 0.88 MG/DL (0.55-1.30); GLOMERULAR FILTRATION RATE > 60.0 (>32); GLUCOSE, FASTING 125 MG/DL (70-100); PHOSPHORUS LEVEL 3.8 MG/DL (2.5-4.9); POTASSIUM SERUM 4.2 MEQ/L (3.5-5.1); SODIUM LEVEL 144 MEQ/L (136-145)
== END ==
LOC: M LAB REF 18:09
DX: I50.32 Chronic diastolic (congestive) heart failure (principal)
CPT/HCPCS: 80069

== ENCOUNTER → 2017-12-12 | Outpatient (REF) | payer MEDICARE ==
[2017-12-12 18:34] LABS: ALBUMIN 3.7 GM/DL (3.2-5.2); ALBUMIN/GLOBULIN RATIO 1.19 (1.00-1.93); ALKALINE PHOSPHATASE 64 U/L (45-117); ALT/SGPT 11 U/L (12-78); ANION GAP 8 MEQ/L (8-16); AST/SGOT 17 U/L (7-37); BILIRUBIN,TOTAL 0.4 MG/DL (0.2-1.0); BLOOD UREA NITROGEN 11 MG/DL (7-18); CALCIUM LEVEL 8.5 MG/DL (8.8-10.2); CARBON DIOXIDE LEVEL 28 MEQ/L (21-32); CHLORIDE LEVEL 109 MEQ/L (98-107); CHOLESTEROL LEVEL 142 MG/DL (<200); CREATININE FOR GFR 0.83 MG/DL (0.55-1.30); GLOMERULAR FILTRATION RATE > 60.0 (>32); GLUCOSE, FASTING 121 MG/DL (70-100); HDL CHOLESTEROL 52 MG/DL (>40); LDL CHOLESTEROL 46.6 MG/DL (<100); NON-HDL-C 90 MG/DL; POTASSIUM SERUM 4.4 MEQ/L (3.5-5.1); SODIUM LEVEL 145 MEQ/L (136-145); TOTAL PROTEIN 6.8 GM/DL (6.4-8.2); TRIGLYCERIDES LEVEL 217 MG/DL (<150)
== END ==
LOC: M LABDRWCV 16:34
DX: I50.32 Chronic diastolic (congestive) heart failure (principal); E78.2 Mixed hyperlipidemia
CPT/HCPCS: 80053

== ENCOUNTER → 2017-12-15 | Outpatient (CLI) | payer MEDICARE, OTHER | LOC: M PLARAD 13:53 | DX: G89.29 Other chronic pain (principal); I73.9 Peripheral vascular disease, unspecified; M51.36 Other intervertebral disc degeneration, lumbar region; M51.26 Other intervertebral disc displacement, lumbar region; M51.27 Other intervertebral disc displacement, lumbosacral region | CPT/HCPCS: 72148 ==

== ENCOUNTER → 2018-03-06 | Outpatient (CLI) | payer MEDICARE | LOC: M RAD 10:46 | DX: I70.213 Atherosclerosis of native arteries of extremities with intermittent claudication, bilateral legs (principal); I65.23 Occlusion and stenosis of bilateral carotid arteries | CPT/HCPCS: 93880 ==

== ENCOUNTER → 2018-03-26 | Outpatient (CLI) | payer MEDICARE ==
[2018-03-26 17:26] LABS: BASO # 0.1 10^3/uL (0.0-0.2); BASO % 0.9 % (0.0-1.0); EOS # 0.3 10^3/uL (0.0-0.50); EOS % 3.2 % (0.0-3.0); HEMATOCRIT 29.1 % (36.0-47.0); HEMOGLOBIN 8.6 g/dl (12.0-15.5); IMMATURE GRANULOCYTE % 0.3 % (0-3.0); LYMPH # 2.9 10^3/uL (1.5-4.5); LYMPH % 31.3 % (24.0-44.0); MEAN CORPUSCULAR HEMOGLOBIN 22.6 pg (27.0-33.0); MEAN CORPUSCULAR HGB CONC 29.6 g/dl (32.0-36.5); MEAN CORPUSCULAR VOLUME 76.4 fl (80.0-96.0); MONO % 10.4 % (0.0-5.0); NEUTROPHILS # 4.9 10^3/uL (1.8-7.7); NEUTROPHILS % 53.9 % (36.0-66.0); PLATELET COUNT, AUTOMATED 283 10^3/uL (150-450); RED BLOOD COUNT 3.81 10^6/uL (4.00-5.40); RED CELL DISTRIBUTION WIDTH 17.2 % (11.5-14.5); WHITE BLOOD COUNT 9.1 10^3/uL (4.0-10.0)
[2018-03-26 18:03] LABS: ANION GAP 7 MEQ/L (8-16); BLOOD UREA NITROGEN 20 MG/DL (7-18); CALCIUM LEVEL 9.2 MG/DL (8.8-10.2); CARBON DIOXIDE LEVEL 32 MEQ/L (21-32); CHLORIDE LEVEL 100 MEQ/L (98-107); CREATININE FOR GFR 0.92 MG/DL (0.55-1.30); GLOMERULAR FILTRATION RATE > 60.0 (>32); GLUCOSE, FASTING 105 MG/DL (70-100); SODIUM LEVEL 139 MEQ/L (136-145)
== END ==
LOC: M LAB 16:53
DX: I70.213 Atherosclerosis of native arteries of extremities with intermittent claudication, bilateral legs (principal); I65.23 Occlusion and stenosis of bilateral carotid arteries; M79.605 Pain in left leg
CPT/HCPCS: 80048

== ENCOUNTER → 2018-03-28 | Outpatient (REF) | payer MEDICARE ==
[2018-03-28 16:32] LABS: BASO # 0.1 10^3/uL (0.0-0.2); BASO % 0.8 % (0.0-1.0); EOS # 0.3 10^3/uL (0.0-0.50); EOS % 4.4 % (0.0-3.0); HEMATOCRIT 29.5 % (36.0-47.0); HEMOGLOBIN 8.4 g/dl (12.0-15.5); IMMATURE GRANULOCYTE % 0.3 % (0-3.0); LYMPH # 2.3 10^3/uL (1.5-4.5); MEAN CORPUSCULAR HEMOGLOBIN 22.6 pg (27.0-33.0); MEAN CORPUSCULAR HGB CONC 28.5 g/dl (32.0-36.5); MEAN CORPUSCULAR VOLUME 79.3 fl (80.0-96.0); MONO % 12.3 % (0.0-5.0); NEUTROPHILS # 4.1 10^3/uL (1.8-7.7); NEUTROPHILS % 52.2 % (36.0-66.0); PLATELET COUNT, AUTOMATED 274 10^3/uL (150-450); RED BLOOD COUNT 3.72 10^6/uL (4.00-5.40); RED CELL DISTRIBUTION WIDTH 17.2 % (11.5-14.5); RETIC HEMOGLOBIN EQUIVALENT 23.6 pg (24-36); RETICULOCYTE # 63.6 10^9/L (17-77); RETICULOCYTE % 1.7 % (0.5-1.5); WHITE BLOOD COUNT 7.8 10^3/uL (4.0-10.0)
[2018-03-28 16:45] LABS: APPEARANCE, URINE CLOUDY (CLEAR); BACTERIA, URINE AUTO 2+ (NEGATIVE); BILIRUBIN, URINE AUTO NEGATIVE (NEGATIVE); BLOOD, URINE BLOOD NEGATIVE (NEGATIVE); COLOR, URINE YELLOW (YELLOW); GLUCOSE, URINE (UA) AUTO NEGATIVE (NEGATIVE); KETONE, URINE AUTO NEGATIVE (NEGATIVE); LEUKOCYTE ESTERASE, URINE AUTO 2+ (NEGATIVE); MUCUS, URINE SMALL (NEGATIVE); NITRITE, URINE AUTO NEGATIVE (NEGATIVE); PROTEIN, URINE AUTO NEGATIVE (NEGATIVE); RBC, URINE AUTO 1 /HPF (0-3); SPECIFIC GRAVITY URINE AUTO 1.008 (1.002-1.035); SQUAMOUS EPITHELIAL CELL UR AU 11 /HPF (0-6); UROBILINOGEN, URINE AUTO 0.2 mg/dL (0.0-2.0); WBC, URINE AUTO 6 /HPF (0-3)
[2018-03-28 17:38] LABS: ALBUMIN 3.8 GM/DL (3.2-5.2); ALBUMIN/GLOBULIN RATIO 1.19 (1.00-1.93); ALKALINE PHOSPHATASE 65 U/L (45-117); ALT/SGPT 15 U/L (12-78); ANION GAP 11 MEQ/L (8-16); AST/SGOT 14 U/L (7-37); BILIRUBIN,TOTAL 0.5 MG/DL (0.2-1.0); BLOOD UREA NITROGEN 17 MG/DL (7-18); CALCIUM LEVEL 8.8 MG/DL (8.8-10.2); CARBON DIOXIDE LEVEL 30 MEQ/L (21-32); CHLORIDE LEVEL 100 MEQ/L (98-107); CREATININE FOR GFR 0.94 MG/DL (0.55-1.30); FERRITIN 10 NG/ML (8-252); GLOMERULAR FILTRATION RATE > 60.0 (>32); GLUCOSE, FASTING 111 MG/DL (70-100); IRON (FE) 23 UG/DL (50-170); LIPASE 209 U/L (73-393); PERCENT SATURATION 5.9 % (13.2-45.0); POTASSIUM SERUM 4.5 MEQ/L (3.5-5.1); SODIUM LEVEL 141 MEQ/L (136-145); TOTAL IRON BINDING CAPACITY 393 UG/DL (250-450)
== END ==
LOC: M SFHCCAPE 11:03
DX: D50.9 Iron deficiency anemia, unspecified (principal); R10.32 Left lower quadrant pain; Z79.899 Other long term (current) drug therapy
CPT/HCPCS: 83550

== ENCOUNTER → 2018-03-29 | Outpatient (CLI) | payer MEDICARE ==
[2018-03-30 15:07] LABS: IMMEDIATE SPIN CROSSMATCH 1 2
== END ==
LOC: M WUC 16:01
DX: D50.9 Iron deficiency anemia, unspecified (principal)
CPT/HCPCS: 36415

== ENCOUNTER 2018-03-30 12:29 | Outpatient (CLI) | payer MEDICARE | END 2018-03-30 17:20 | disposition home or self-care (01) | LOC: M INFU 12:29 | DX: D64.9 Anemia, unspecified (principal); I63.9 Cerebral infarction, unspecified; I25.2 Old myocardial infarction; Z95.5 Presence of coronary angioplasty implant and graft; I50.9 Heart failure, unspecified; R01.1 Cardiac murmur, unspecified; I25.119 Atherosclerotic heart disease of native coronary artery with unspecified angina pectoris; E78.00 Pure hypercholesterolemia, unspecified; I11.0 Hypertensive heart disease with heart failure; J44.9 Chronic obstructive pulmonary disease, unspecified; R06.00 Dyspnea, unspecified; Z78.0 Asymptomatic menopausal state; M19.90 Unspecified osteoarthritis, unspecified site; M54.9 Dorsalgia, unspecified; R55 Syncope and collapse; H35.30 Unspecified macular degeneration; Z79.82 Long term (current) use of aspirin; Z79.899 Other long term (current) drug therapy | CPT/HCPCS: 36430 ==

== ENCOUNTER 2018-05-02 07:16 | Day surgery (SDC) | payer MEDICARE ==
[~2018-05-02 07:16] MED LIST changes: -ADV250INH INH; -ALBU17IN INH; -ASPI81TA85 PO; -ASPI81TAEC PO; -ATOR40TA75 PO; -AZIT-12 PO; -CARV3.12 PO; -CHLO125TA PO; -FLUT1SPR2; -FLUZ1INJ IM; -FURO20TA2 PO; -K-TA1TAB PO; +LIDOCAINE 2% INJ 100 MG/5 ML SDV (FOR ANES.) As Ordered; -LISI-542 PO; -MAGN1CAP PO; -MAGN500C PO; -METO-346 PO; -METO1TAB87 PO; -METO25TAB PO; -NICO7DIS4 TD; -NITR4TASL SL; -PLAV1TAB2 PO; -PNEU0.5I IM; -POTA10CA PO; -PRED10PA2 PO; -PRED10TA PO; -PRED10TA2 PO; -PRESCAP PO; +PROPOFOL 200 MG/20 ML VIAL As Ordered; -SIMV40TA2 PO; -SPIR25TA2 PO; -VITA100066 PO
[2018-05-02] MEDS: NS 1,000 ML IV (07:35)
== END 2018-05-02 09:54 | disposition home or self-care (01) ==
LOC: M OPP 07:16
DX: D50.9 Iron deficiency anemia, unspecified (principal); R10.11 Right upper quadrant pain; D12.5 Benign neoplasm of sigmoid colon; K57.30 Diverticulosis of large intestine without perforation or abscess without bleeding; K64.8 Other hemorrhoids; D49.0 Neoplasm of unspecified behavior of digestive system; K92.2 Gastrointestinal hemorrhage, unspecified; K29.50 Unspecified chronic gastritis without bleeding; K44.9 Diaphragmatic hernia without obstruction or gangrene; Z95.5 Presence of coronary angioplasty implant and graft; R07.89 Other chest pain; I25.119 Atherosclerotic heart disease of native coronary artery with unspecified angina pectoris; I25.2 Old myocardial infarction; I50.9 Heart failure, unspecified; I11.0 Hypertensive heart disease with heart failure; E78.5 Hyperlipidemia, unspecified; R60.0 Localized edema; M19.90 Unspecified osteoarthritis, unspecified site; H35.30 Unspecified macular degeneration; I63.9 Cerebral infarction, unspecified; Z78.0 Asymptomatic menopausal state; J44.9 Chronic obstructive pulmonary disease, unspecified; R06.02 Shortness of breath; Z87.891 Personal history of nicotine dependence; Z88.1 Allergy status to other antibiotic agents; Z88.0 Allergy status to penicillin; Z79.82 Long term (current) use of aspirin; Z79.899 Other long term (current) drug therapy; Z79.02 Long term (current) use of antithrombotics/antiplatelets
CPT/HCPCS: 45385

== ENCOUNTER → 2018-05-25 | Outpatient (CLI) | payer MEDICARE ==
[~2018-05-25] MED LIST changes: +HEPARIN 1,000 UNITS/ML 10ML VIAL (FOR RADIOLOGY& DIALYSIS ONLY) As Ordered; +ISOVUE-300 61% 50ML VIAL (Q9967) As Ordered; -LIDOCAINE 2% INJ 100 MG/5 ML SDV (FOR ANES.) As Ordered; -PROPOFOL 200 MG/20 ML VIAL As Ordered
== END ==
LOC: M IRPRO 08:00
DX: I70.213 Atherosclerosis of native arteries of extremities with intermittent claudication, bilateral legs (principal); M79.605 Pain in left leg; I65.23 Occlusion and stenosis of bilateral carotid arteries; Z53.8 Procedure and treatment not carried out for other reasons

== ENCOUNTER → 2018-06-05 | Outpatient (CLI) | payer MEDICARE ==
[~2018-06-05] MED LIST changes: +LIDOCAINE 2% MDV 20 ML VIAL As Ordered; +MIDAZOLAM INJ 2 MG/2 ML VIAL (J2250) As Ordered; +fentaNYL 100 MCG/2 ML INJECTION (J3010) As Ordered
== END | disposition home or self-care (01) ==
LOC: M IRPRO 08:02
DX: I73.9 Peripheral vascular disease, unspecified (principal); I11.0 Hypertensive heart disease with heart failure; I50.9 Heart failure, unspecified; I25.10 Atherosclerotic heart disease of native coronary artery without angina pectoris; Z72.0 Tobacco use
CPT/HCPCS: 36200

== ENCOUNTER → 2018-07-03 | Outpatient (CLI) | payer MEDICARE ==
[~2018-07-03] MED LIST changes: +ADV250INH INH; +ALBU17IN INH; +ASPI81TA85 PO; +ASPI81TAEC PO; +ATOR40TA75 PO; +AZIT-12 PO; +Acetaminophen Tab PO; +CARV3.12 PO; +CHLO125TA PO; +FERR325T3 PO; +FLUT1SPR2; +FLUZ1INJ IM; +FURO20TA2 PO; -HEPARIN 1,000 UNITS/ML 10ML VIAL (FOR RADIOLOGY& DIALYSIS ONLY) As Ordered; -ISOVUE-300 61% 50ML VIAL (Q9967) As Ordered; +K-TA1TAB PO; +KLOR10TA76 PO; -LIDOCAINE 2% MDV 20 ML VIAL As Ordered; +LISI-542 PO; +LISI2.5T76 PO; +MAGN1CAP PO; +MAGN500C PO; +METO-346 PO; +METO1TAB87 PO; +METO25TAB PO; -MIDAZOLAM INJ 2 MG/2 ML VIAL (J2250) As Ordered; +NICO7DIS4 TD; +NITR4TASL SL; +NYST10CR TOP; +PANT40TA3 PO; +PLAV1TAB2 PO; +PNEU0.5I IM; +PRED10PA2 PO; +PRED10TA PO; +PRED10TA2 PO; +PRESCAP PO; +SIMV40TA2 PO; +SPIR-10 PO; +VENTAER INH; +VITA100066 PO; -fentaNYL 100 MCG/2 ML INJECTION (J3010) As Ordered
--- NOTE | 2018-07-03 13:29 | REP ---
Clinical: Abdominal bloating. Technique: Frontal view of the chest with supine and upright views of the abdomen and pelvis. Findings: Frontal view of the chest demonstrates chronic interstitial changes. No evidence for bowel obstruction or perforation. The bowel gas pattern is nonspecific. Skeletal structures demonstrate degenerative changes. No significant abnormal calcification identified. Impression: Nonspecific bowel gas pattern. Electronically Signed by Ugo Alvarez MD 07/03/2018 01:20 P
[2018-07-03 16:58] LABS: BASO # 0.1 10^3/uL (0.0-0.2); BASO % 0.9 % (0.0-1.0); EOS # 0.5 10^3/uL (0.0-0.50); HEMATOCRIT 38.3 % (36.0-47.0); HEMOGLOBIN 12.5 g/dl (12.0-15.5); LYMPH # 2.7 10^3/uL (1.5-4.5); LYMPH % 29.6 % (24.0-44.0); MEAN CORPUSCULAR HEMOGLOBIN 30.8 pg (27.0-33.0); MEAN CORPUSCULAR HGB CONC 32.6 g/dl (32.0-36.5); MEAN CORPUSCULAR VOLUME 94.3 fl (80.0-96.0); MONO # 0.9 10^3/uL (0.0-0.8); MONO % 9.5 % (0.0-5.0); NEUTROPHILS # 4.9 10^3/uL (1.8-7.7); NEUTROPHILS % 53.8 % (36.0-66.0); PLATELET COUNT, AUTOMATED 228 10^3/uL (150-450); RED BLOOD COUNT 4.06 10^6/uL (4.00-5.40)
[2018-07-03 17:01] LABS: APPEARANCE, URINE CLOUDY (CLEAR); BACTERIA, URINE AUTO 1+ (NEGATIVE); BILIRUBIN, URINE AUTO NEGATIVE (NEGATIVE); BLOOD, URINE BLOOD NEGATIVE (NEGATIVE); COLOR, URINE YELLOW (YELLOW); GLUCOSE, URINE (UA) AUTO NEGATIVE (NEGATIVE); KETONE, URINE AUTO NEGATIVE (NEGATIVE); LEUKOCYTE ESTERASE, URINE AUTO 2+ (NEGATIVE); MUCUS, URINE SMALL (NEGATIVE); NITRITE, URINE AUTO NEGATIVE (NEGATIVE); PROTEIN, URINE AUTO NEGATIVE (NEGATIVE); RBC, URINE AUTO 2 /HPF (0-3); SQUAMOUS EPITHELIAL CELL UR AU 36 /HPF (0-6); UROBILINOGEN, URINE AUTO 0.2 mg/dL (0.0-2.0); WBC, URINE AUTO 13 /HPF (0-3)
[2018-07-03 17:19] LABS: ALBUMIN 3.8 GM/DL (3.2-5.2); BILIRUBIN,TOTAL 0.4 MG/DL (0.2-1.0); CALCIUM LEVEL 8.7 MG/DL (8.8-10.2); CREATININE FOR GFR 0.97 MG/DL (0.55-1.30); GLOMERULAR FILTRATION RATE 58.5 (>32); PERCENT SATURATION 16.6 % (13.2-45.0); POTASSIUM SERUM 4.1 MEQ/L (3.5-5.1); THYROID STIMULATING HORMONE 1.04 uIU/ML (0.358-3.740)
== END ==
LOC: M WUC 12:31
PROVIDERS: ATTEND Physician Assistant
DX: D50.9 Iron deficiency anemia, unspecified (principal); R14.0 Abdominal distension (gaseous)

== ENCOUNTER 2018-10-31 10:48 | Day surgery (SDC) | payer MEDICARE ==
[~2018-10-31] VITALS: Ht 162.6 cm; Wt 59.0 kg
[~2018-10-31 10:48] MED LIST changes: +NS 1,000 ML IV ONE
[2018-10-31] MEDS ORDERED: PROPOFOL 200 MG/20 ML VIAL As Ordered ONE (12:47)
[2018-10-31] MEDS ORDERED: LIDOCAINE 2% INJ 100 MG/5 ML SDV (FOR ANES.) As Ordered ONE (12:47)
--- NOTE | 2018-10-31 13:40 | ROOR ---
Patient Name: Nguyen Jimenez Procedure Date: 10/31/2018 1:23 PM Date of : 1935 Age: 83 Room: [facility] Gender: Female Note Status: Finalized Procedure: Upper GI endoscopy Indications: Iron deficiency anemia secondary to chronic blood loss, Heartburn, follow up of previous inflammation at GE junction Providers: Shade Mas MD Referring MD: JOJO Marsh pa-c Requesting Provider: Medicines: Monitored Anesthesia Care Complications: No immediate complications. Procedure: Pre-Anesthesia Assessment: - Prior to the procedure, a History and Physical was performed, and patient medications and allergies were reviewed. The patient is competent. The risks and benefits of the procedure and the sedation options and risks were discussed with the patient. All questions were answered and informed consent was obtained. Patient identification and proposed procedure were verified by the physician, the nurse and the anesthesiologist in the endoscopy suite. Mental Status Examination: alert and oriented. Airway Examination: normal oropharyngeal airway and neck mobility. Respiratory Examination: clear to auscultation. CV Examination: normal. Prophylactic Antibiotics: The patient does not require prophylactic antibiotics. Prior Anticoagulants: The patient has taken Plavix (clopidogrel), last dose was 7 days prior to procedure. ASA Grade Assessment: III - A patient with severe systemic disease. After reviewing the risks and benefits, the patient was deemed in satisfactory condition to undergo the procedure. The anesthesia plan was to use monitored anesthesia care (MAC). Immediately prior to administration of medications, the patient was re-assessed for adequacy to receive sedatives. The heart rate, respiratory rate, oxygen saturations, blood pressure, adequacy of pulmonary ventilation, and response to care were monitored throughout the procedure. The physical status of the patient was re-assessed after the procedure. The Endoscope was introduced through the mouth, and advanced to the second part of duodenum. The upper GI endoscopy was accomplished without difficulty. The patient tolerated the procedure well. Findings: No gross lesions were noted in the entire esophagus. A small hiatal hernia was present. There is no endoscopic evidence of bleeding, areas of erosion, esophagitis, inflammation or ulcerations at the gastroesophageal junction. The examined duodenum was normal. Impression: - No gross lesions in esophagus. - Small hiatal hernia. - Normal examined duodenum. - No specimens collected. Recommendation: - Discharge patient to home (ambulatory). - Continue present medications. - Resume Plavix (clopidogrel) at prior dose today. Refer to primary physician for further adjustment of therapy. Shade Mas MD Shade Mas MD 10/31/2018 1:40:07 PM Electronically signed by Shade Mas MD Number of Addenda: 0 Note Initiated On: 10/31/2018 1:23 PM Estimated Blood Loss: Estimated blood loss: none.
[2018-10-31 14:04] VITALS: BP 112/54
== END 2018-10-31 14:06 | disposition home or self-care (01) ==
LOC: M OPP 10:48
PROVIDERS: ATTEND Surgery
DX: K21.0 Gastro-esophageal reflux disease with esophagitis (principal); K44.9 Diaphragmatic hernia without obstruction or gangrene; D50.0 Iron deficiency anemia secondary to blood loss (chronic); R12 Heartburn; I50.9 Heart failure, unspecified; I25.2 Old myocardial infarction; Z86.73 Personal history of transient ischemic attack (TIA), and cerebral infarction without residual deficits; Z88.0 Allergy status to penicillin; Z88.1 Allergy status to other antibiotic agents; Z79.899 Other long term (current) drug therapy; Z87.891 Personal history of nicotine dependence; Z95.5 Presence of coronary angioplasty implant and graft

== ENCOUNTER → 2018-11-29 | Outpatient (REF) | payer MEDICARE ==
[~2018-11-29] MED LIST changes: +METO1TAB63 PO; -METO25TAB PO; -NS 1,000 ML IV ONE; +PRED-351 PO; -PRED10TA PO
[2018-11-29 20:07] LABS: ALBUMIN 3.6 GM/DL (3.2-5.2); ALT/SGPT 16 U/L (12-78); BILIRUBIN,TOTAL 0.6 MG/DL (0.2-1.0); BLOOD UREA NITROGEN 18 MG/DL (7-18); CALCIUM LEVEL 8.8 MG/DL (8.8-10.2); CARBON DIOXIDE LEVEL 31 MEQ/L (21-32); CHLORIDE LEVEL 107 MEQ/L (98-107); CHOLESTEROL LEVEL 166 MG/DL (<200); CHOLESTEROL RISK RATIO 3.254 (<5); CREATININE FOR GFR 0.78 MG/DL (0.55-1.30); FERRITIN 49 NG/ML (8-252); GLOMERULAR FILTRATION RATE > 60.0 (>32); GLUCOSE, FASTING 112 MG/DL (70-100); HDL CHOLESTEROL 51 MG/DL (>40); IRON (FE) 67 UG/DL (50-170); LDL CHOLESTEROL 73.8 MG/DL (<100); NON-HDL-C 115 MG/DL; POTASSIUM SERUM 4.2 MEQ/L (3.5-5.1); SODIUM LEVEL 143 MEQ/L (136-145); TOTAL IRON BINDING CAPACITY 291 UG/DL (250-450); TOTAL PROTEIN 6.8 GM/DL (6.4-8.2); TRIGLYCERIDES LEVEL 206 MG/DL (<150)
[2018-11-29 20:18] LABS: BASO # 0.1 10^3/uL (0.0-0.2); BASO % 1.1 % (0.0-1.0); EOS # 0.5 10^3/uL (0.0-0.50); EOS % 7.4 % (0.0-3.0); HEMATOCRIT 37.5 % (36.0-47.0); HEMOGLOBIN 11.9 g/dl (12.0-15.5); LYMPH # 2.3 10^3/uL (1.5-4.5); LYMPH % 32.6 % (24.0-44.0); MEAN CORPUSCULAR HEMOGLOBIN 31.7 pg (27.0-33.0); MEAN CORPUSCULAR HGB CONC 31.7 g/dl (32.0-36.5); MONO # 0.7 10^3/uL (0.0-0.8); MONO % 10.3 % (0.0-5.0); NEUTROPHILS # 3.4 10^3/uL (1.8-7.7); NEUTROPHILS % 48.3 % (36.0-66.0); PLATELET COUNT, AUTOMATED 188 10^3/uL (150-450); RED BLOOD COUNT 3.75 10^6/uL (4.00-5.40); WHITE BLOOD COUNT 7.1 10^3/uL (4.0-10.0)
== END ==
LOC: M SFHCCAPE 07:22
PROVIDERS: ATTEND Physician Assistant
DX: D50.9 Iron deficiency anemia, unspecified (principal); E78.2 Mixed hyperlipidemia; I10 Essential (primary) hypertension

== ENCOUNTER → 2019-01-03 | Outpatient (CLI) | payer MEDICARE ==
[2019-01-03 13:10] LABS: BASO # 0.1 10^3/uL (0.0-0.2); BASO % 1.1 % (0.0-1.0); EOS # 0.4 10^3/uL (0.0-0.50); EOS % 4.5 % (0.0-3.0); HEMATOCRIT 37.2 % (36.0-47.0); HEMOGLOBIN 11.7 g/dl (12.0-15.5); LYMPH # 1.9 10^3/uL (1.5-4.5); LYMPH % 22.6 % (24.0-44.0); MEAN CORPUSCULAR HEMOGLOBIN 31.5 pg (27.0-33.0); MEAN CORPUSCULAR HGB CONC 31.5 g/dl (32.0-36.5); MEAN CORPUSCULAR VOLUME 100.3 fl (80.0-96.0); MONO # 0.8 10^3/uL (0.0-0.8); MONO % 9.2 % (0.0-5.0); NEUTROPHILS # 5.3 10^3/uL (1.8-7.7); NEUTROPHILS % 62.2 % (36.0-66.0); PLATELET COUNT, AUTOMATED 186 10^3/uL (150-450); RED BLOOD COUNT 3.71 10^6/uL (4.00-5.40); WHITE BLOOD COUNT 8.5 10^3/uL (4.0-10.0)
== END ==
LOC: M WUC 08:32
PROVIDERS: ATTEND Physician Assistant
DX: D50.9 Iron deficiency anemia, unspecified (principal)

== ENCOUNTER → 2019-01-11 | Outpatient (REF) | payer MEDICARE | LOC: M SFHCPLAZ 17:23 | PROVIDERS: ATTEND Dermatology | DX: D23.0 Other benign neoplasm of skin of lip (principal) ==

== ENCOUNTER → 2019-01-31 | Outpatient (CLI) | payer MEDICARE ==
--- NOTE | 2019-01-31 14:49 | REP ---
Clinical: Symptoms related to atherosclerotic disease and intermittent claudication. Technique: Real time zheng scale and color Doppler evaluation of the bilateral lower extremity arterial vasculature using linear high frequency transducer. Findings: Zheng scale and color images demonstrate moderate amounts of atheromatous plaquing with diffuse moderate narrowing from the common femoral artery to the superficial femoral artery bilaterally with increased velocities. Biphasic wave patterns are noted throughout the bilateral lower extremities. A right external iliac artery stent is appreciated with peak systolic velocity of 210 cm/sec. The left external iliac artery stent is not visualized and peak systolic velocity measures 189 cm/sec. Right PRADIP = 1.05 Left PRADIP = unobtainable. Peak systolic velocities (cm/sec) RIGHT LEFT Common femoral artery 198 210 Profunda femoris 193 230 SFA (proximal) 90.2 190 SFA (mid) 144 174 SFA (distal) 156 136 Popliteal artery 57.2 49.0 AIYANA (prox.) 35.3 35.0 Tibioperoneal trunk 45.6 48.6 ASSURANCE AUDITOR (prox.) 61.8 45.6 ASSURANCE AUDITOR (distal) 71.1 24.7 AIYANA (distal) 61.8 44.4 Impression: 1. Moderate atheromatous plaquing noted throughout the bilateral lower extremities with biphasic wave patterns and elements of visible narrowing with elevated velocities as described above. 2. Right external iliac artery stent identified with PSV at 210 cm/sec. Left external iliac artery stent not visualized and PSV at 189 cm/sec. Electronically Signed by Ugo Alvarez MD 01/31/2019 02:41 P
--- NOTE | 2019-01-31 14:52 | REP ---
Bilateral carotid artery duplex ultrasound: Peak flow velocity analysis: RIGHT LEFT ICA Peak flow velocity cm/sec 196 286 ICA Diastolic flow velocity cm/sec 21.8 40.7 ICA/CCA Ratio 2.73 4.41 ECA Peak flow velocity cm/sec 184 122 CCA Peak flow velocity cm/sec 71.9 64.9 There is heavy atheromatous plaque bilaterally extending from the common carotid arteries into the bulbs and into the internal carotid arteries and external carotid arteries bilaterally. Right ICA: Peak flow velocity indicates 50 - 69% stenosis. Left ICA: Peak flow velocity indicates greater than 78% stenosis but less than near occlusion. The right ECA: Peak flow velocity indicates 50 of 69% stenosis. Left ECA: Peak flow velocity is normal. This is compatible with less than 50% stenosis. There is antegrade flow in the vertebral arteries bilaterally. Impression: There is a greater than 78% stenosis but less than near occlusion in the left ICA. There is 50 - 60% stenosis in the right ICA and in the right ECA. There is less than 50% stenosis in the left ECA. Electronically Signed by Tariq Zavala MD 01/31/2019 02:43 P
== END ==
LOC: M RAD 12:17
PROVIDERS: ATTEND Surgery Vascular Surgery
DX: I65.23 Occlusion and stenosis of bilateral carotid arteries (principal); I70.213 Atherosclerosis of native arteries of extremities with intermittent claudication, bilateral legs

== ENCOUNTER → 2019-02-21 | Outpatient (CLI) | payer MEDICARE ==
[2019-02-21 13:05] LABS: BLOOD UREA NITROGEN 15 MG/DL (7-18); CREATININE FOR GFR 0.91 MG/DL (0.55-1.30); GLOMERULAR FILTRATION RATE > 60.0 (>32)
== END ==
LOC: M LAB 11:49
PROVIDERS: ATTEND Surgery Vascular Surgery
DX: I10 Essential (primary) hypertension (principal); I70.0 Atherosclerosis of aorta; I70.213 Atherosclerosis of native arteries of extremities with intermittent claudication, bilateral legs

== ENCOUNTER → 2019-02-25 | Outpatient (CLI) | payer MEDICARE ==
[~2019-02-25] MED LIST changes: +BUPIVACAINE HCL 0.5% 10 ML VIAL As Ordered ONE; +HEPARIN 1,000 UNITS/ML 10ML VIAL (FOR RADIOLOGY& DIALYSIS ONLY) As Ordered ONE; +ISOVUE-300 61% 50ML VIAL (Q9967) As Ordered ONE; +LIDOCAINE 2% MDV 20 ML VIAL As Ordered ONE; +MIDAZOLAM INJ 2 MG/2 ML VIAL (J2250) As Ordered ONE; +diphenhydrAMINE INJ 50MG/ML VIAL (J1200) As Ordered ONE; +fentaNYL 100 MCG/2 ML INJECTION (J3010) As Ordered ONE
--- NOTE | 2019-02-25 12:13 | ROOPDOC ---
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 POSTOPERATIVE DIAGNOSES: Atherosclerotic aortoiliac occlusive disease, femoral-p opliteal atherosclerotic arterial occlusive disease, tibial peroneal arterial atherosclerotic occlusive disease, history of tobacco use, carotid artery stenosis, left lower extremity claudication, status post iliac artery angioplasty and stenting. PROCEDURE: PROCEDURE: Abdominal aortogram Pelvic aortogram and bilateral iliofemoral angiogram Selective left common femoral artery catheter placement with left lower extremity angiogram. Selective left superficial femoral artery catheter placement with left lower extremity angiogram. Right common femoral arteriotomy closure with a Mynx closure device. SURGEON: Dr. Meghana Fitzpatrick M.D. COMPUTING MACHINE OPERATOR: Krishna Nicole INDICATION: Patient is a 83-year-old female with debilitating left lower extremity claudication who has previously undergone angiography showing severe atherosclerotic occlusive disease in her aortoiliac, femoral-popliteal, and tibial peroneal vessels. Patient had undergone angioplasty and stenting of her iliac arteries bilaterally with significant improvement in her symptoms in her lower extremity. Patient has recurrent severe debilitating left lower extremity claudication. Patient was evaluated and recommendation was to undergo an angiogram with possible angioplasty, stent and/or arthrectomy. The procedure was described and explained in detail to the patient including drawing of pictures demonstrating the procedure and pertinent anatomy. Risks, benefits and alternative treatment options were discussed with the patient. Alternative treatment options included but were not limited to no intervention. Benefits include but were not limited to evaluation of arterial inflow to the lower extremities with possible intervention improving blood flow to the lower extremities. Risks included but were not limited to infection, bleeding, renal failure requiring hemodialysis, retroperitoneal hematoma, possible need for surgical intervention, pain, possible requirement for transfusion of blood products, contrast dye reaction, allergic reaction and/or complication from the prepping and draping materials, sedation related complication, scarring of the skin, bruising, nerve injury, anesthetic complications, cerebrovascular accident, myocardial infarction, pulmonary embolus, deep venous thrombosis, loss of limb, loss of life, poor satisfaction and poor outcome. Risks of not performing the procedure included but were not limited to worsening of current symptoms, worsening of atherosclerotic arterial occlusive disease resulting in possible limb loss and . Patient's questions were answered. Patient voices understanding of these risks, benefits and alternative treatment options. Patient voices acceptance of the risks associated with angiography with possible angioplasty, stent and/or atherectomy and agrees to proceed with the procedure excepting the associated risks of the procedure. No guarantees or promises were made to the patient or her family regarding the results or outcome of the procedure. ANESTHESIA: Local with sedation with 1 mg of Versed, 0 g of fentanyl and 20 mL of 2% lidocaine mixed with 0.5% Marcaine. SEDATION TIME: 9 and 30 3 AM to 10:01 AM for a total of 28 minutes. The sedation was administered by the registered nurse attending the case. The cardiopulmonary monitoring during sedation was performed by the registered nurse attending the case. Administration of sedation and cardiopulmonary monitoring were performed under my direct supervision and direction. I was present for and directed the entire case. There were no sedation related complications. Patient was stable post sedation and returned to pre-sedation status. FLUORO TIME: 1.3 minutes CONTRAST: 12.5 mL of Isovue 300 IVF: 150 mL ESTIMATED BLOOD LOSS: 10 mL. HEPARIN: None PROTAMINE: None COMPLICATIONS: None DRAINS: None SPECIMENS: None IMPLANTS: Right common femoral arteriotomy closure with a 5 Nepalese minx closure device PROCEDURE: The patient was taken to the angiography suite, placed supine on the angiography room table and prepped and draped in a standard surgical fashion. A procedural time out was performed by myself and the members of the team in the procedure room confirming the correct procedure, patient and laterality. The right common femoral artery was then cannulated with a micropuncture needle after anesthetizing the overlying skin and subcutaneous tissue with 2% lidocaine. The micropuncture wire was advanced through the micropuncture needle which was upsized to a micropuncture sheath. The Cross wire was then advanced through the micropuncture sheath which was upsized to a 5 Nepalese sheath. The Omni flush catheter was advanced over the Crsos wire placed in the aorta at the level of the diaphragm and an abdominal aortogram was performed. The catheter was pulled down in the aorta to above the bifurcation of the iliac arteries and the pelvic aortogram and bilateral iliofemoral angiogram was performed. The catheter was then directed over the bifurcation of the iliac arteries using the Cross wire and placed in the left common femoral artery selectively and a left lower extremity angiogram was performed. The catheter was then advanced into the right superficial femoral artery selectively as far distal as possible, using the Cross wire, and a selective left lower extremity selective superficial femoral artery angiogram was performed. The arteriotomy in the right common femoral artery was closed using a 5 Nepalese Mynx closure device with an additional 10 min. of adjunctive pressure applied for hemostasis, which was noted. Dressings were then applied. Patient tolerated the procedure well. There were no complications. Dr. Fitzpatrick was present for and directed the entire case. The patient was transferred to the holding area in stable condition. Patient was subsequently discharged after 4 hours of bedrest, in stable condition. The results of the angiography were discussed with the patient and her daughter with all of their questions being answered. RADIOLOGIC SUPERVISION AND INTERPRETATION: Abdominal aortogram: The aorta below the level of the diaphragm was widely pat ent with severe calcific atherosclerotic arterial plaquing of the wall of the abdominal aorta. The superior mesenteric and celiac arteries were patent. There was calcific plaquing at the origin of the right renal artery which produced an approximate 60-70% stenosis. The left renal artery was patent but also showed calcium along the course of the left renal artery. The infrarenal aorta was severely calcified with severe atherosclerotic arterial occlusive disease with multiple areas of narrowing which appear to be approximately 50- 60%. There was good filling of lumbar arteries off of the infrarenal aorta. Pelvic aortogram and bilateral iliofemoral angiogram: The right common iliac artery was patent with a stent along the course of the right common iliac artery. The right external iliac artery which also been stented was widely patent down to the right common femoral artery. The right internal iliac artery showed high-grade stenosis at its origin with poststenotic dilatation noted. The right common femoral artery was small and showed calcific atherosclerotic arterial occlusive disease which produced an approximate 30-40% stenosis. The proximal right superficial femoral and profunda femoris arteries were patent and there was no visualization of the right lower extremity below the puncture site. The left common iliac artery which had previously been stented was widely patent. There was no visualization of the left internal iliac artery. There was a median sacral artery as well as the inferior mesenteric artery providing collaterals into the pelvis. The left external iliac artery was patent with mild luminal irregularities down to the common femoral artery where there was severe calcific atherosclerotic occlusive disease at the junction of the external iliac artery and common femoral artery extending along the course of the common femoral artery which produced an approximate 70% stenosis. Selective left common femoral artery angiogram: The selective left common femoral artery catheter angiogram showed the left common femoral artery to be patent as well as the proximal superficial femoral and profunda femoris arteries. Selective left superficial femoral artery angiogram: The selective left superficial femoral artery angiogram showed calcific atherosclerotic occlusive disease in the superficial femoral and popliteal artery junction which produced approximate 60-70% stenosis. The above-knee popliteal artery was patent and branched into 3 branches with the below knee popliteal artery being small giving rise to a true trifurcation with the peroneal artery being dominant and the vessels being small showing mild luminal regularities along the course into the ankle and foot there was a patent dorsalis pedis and posterior tibial artery into the foot. Intervention: None A 5 Nepalese Mynx closure device was used to close the arteriotomy in the right common femoral artery. CONCLUSION: The patient has severe aortoiliac and femoral-popliteal arterial atherosclerotic occlusive disease and a believe the symptoms in the left lower extremity originate from the severe disease in the left external iliac and common femoral arteries as well as the disease at the superficial femoral and popliteal artery junction. The patient also has severe atherosclerotic arterial occlusive disease in her infrarenal aorta but has no symptoms in the right lower extremity. The left common iliac and right common iliac artery stents are widely patent. Recommendation was for the patient to undergo a left external iliac and common femoral artery endarterectomy with possible angioplasty and stenting of the left superficial femoral and popliteal arteries. Patient agrees and will be scheduled for a left external iliac and common femoral artery endarterectomy with possible angioplasty and stenting of the left superficial femoral and popliteal arteries. The severe atherosclerotic arterial occlusive disease in the aorta is contributing as well but the patient has no symptoms in the right lower extremity and only in the left lower extremity suggestive of the etiology originating from the left external iliac artery, femoral artery, superficial femoral artery and popliteal arteries. Kp Fitzpatrick MD Feb 25, 2019 12:12
[2019-02-25 14:05] VITALS: BP 125/60
== END ==
LOC: M IRPRO 08:19
PROVIDERS: ATTEND Surgery Vascular Surgery
DX: I70.212 Atherosclerosis of native arteries of extremities with intermittent claudication, left leg (principal); I70.201 Unspecified atherosclerosis of native arteries of extremities, right leg; I11.0 Hypertensive heart disease with heart failure; E78.5 Hyperlipidemia, unspecified; I50.9 Heart failure, unspecified; J44.9 Chronic obstructive pulmonary disease, unspecified; I25.10 Atherosclerotic heart disease of native coronary artery without angina pectoris; Z95.5 Presence of coronary angioplasty implant and graft
CPT/HCPCS: 36247; 75625; 75716; 99152; 99153; C1760; C1769; C1887; C1894; G0269; J1200; J2250; Q9967

== ENCOUNTER 2019-03-22 06:59 | Inpatient (IN) | payer MEDICARE ==
[2019-03-22] VITALS (8 sets, daily range): BP systolic 112–134; BP diastolic 52–64; O2SAT 96–98
[~2019-03-22] VITALS: Ht 160 cm; Wt 60.2 kg
[~2019-03-22 06:59] MED LIST changes: -BUPIVACAINE HCL 0.5% 10 ML VIAL As Ordered ONE; -HEPARIN 1,000 UNITS/ML 10ML VIAL (FOR RADIOLOGY& DIALYSIS ONLY) As Ordered ONE; -ISOVUE-300 61% 50ML VIAL (Q9967) As Ordered ONE; +LIDOCAINE 1% MDV 20ML VIAL SQ PRN; -LIDOCAINE 2% MDV 20 ML VIAL As Ordered ONE; +LR 1,000 ML IV ONE; -MIDAZOLAM INJ 2 MG/2 ML VIAL (J2250) As Ordered ONE; -diphenhydrAMINE INJ 50MG/ML VIAL (J1200) As Ordered ONE; -fentaNYL 100 MCG/2 ML INJECTION (J3010) As Ordered ONE
[2019-03-22] MEDS ORDERED: LIDOCAINE 2% INJ 100 MG/5 ML SDV (FOR ANES.) As Ordered ONE (07:40)
[2019-03-22] MEDS ORDERED: PROPOFOL 200 MG/20 ML VIAL As Ordered ONE (07:40)
[2019-03-22] MEDS ORDERED: dexameTHASONE 4 MG/ML 1ML VIAL (J1100) As Ordered ONE (07:40)
[2019-03-22] MEDS ORDERED: ONDANSETRON 4MG/2ML VIAL (J2405) As Ordered ONE (07:41)
[2019-03-22] MEDS ORDERED: MIDAZOLAM INJ 2 MG/2 ML VIAL (J2250) As Ordered ONE (07:45)
[2019-03-22] MEDS ORDERED: fentaNYL 100 MCG/2 ML INJECTION (J3010) As Ordered ONE (07:45)
[2019-03-22] MEDS ORDERED: HEPARIN SOD (PORCINE) 5000 UNITS/ML VIAL As Ordered ONE ×3 (08:05→09:17)
[2019-03-22] MEDS ORDERED: BUPIVACAINE HCL 0.5% 10 ML VIAL As Ordered ONE (08:05)
[2019-03-22] MEDS ORDERED: THROMBIN SOLN 20,000 UNITS KIT As Ordered ONE (08:05)
[2019-03-22] MEDS ORDERED: LIDOCAINE 2% MDV 20 ML VIAL As Ordered ONE (08:05)
[2019-03-22] MEDS ORDERED: PROPOFOL 500 MG/50 ML VIAL As Ordered ONE ×2 (08:24→09:40)
[2019-03-22] MEDS ORDERED: CLINDAMYCIN 600 MG/50 ML PREMIX BAG As Ordered ONE (08:57)
--- NOTE | 2019-03-22 09:31 | HPEPDOC ---
[facility] Medical History & Physical Date of Admission Mar 22, 2019 Date of Service: Mar 22, 2019 Attending Physician: Kp Fitzpatrick MD History and Physical Vascular Surgery Dr Fitzpatrick HPI: 83year oldF with a past medical history significant for PAD. S/P LLE angiogram as per Dr Fitzpatrick 02/25/19. Report indicated The patient has severe aortoiliac and femoral-popliteal arterial atherosclerotic occlusive disease and a believe the symptoms in the left lower extremity originate from the severe disease in the left external iliac and common femoral arteries as well as the disease at the superficial femoral and popliteal artery junction. The patient also has severe atherosc lerotic arterial occlusive disease in her infrarenal aorta but has no symptoms in the right lower extremity. The left common iliac and right common iliac artery stents are widely patent. Recommendation was for the patient to undergo a left external iliac and common femoral artery endarterectomy with possible angioplasty and stenting of the left superficial femoral and popliteal arteries which is scheduled 03/22/[address] Fitzpatrick. The pt has had pre operative medical and cardiac clearance which is also placed on the chart. Denies any fevers, chills, weakness, fatigue, Headache, Chest Pain, Shortness of breath, cough, palpitations, abdominal pain, N/V/D or changes in bowel or bladder habits. PMHx: PAD. Aortoiliac atherosclerotic arterial occlusive disease, bilateral lower extremity claudication. Patient underwent bilateral iliac artery [employer] VESSEL and stenting carotid artery stenosis CAD/ Cardiac stents CVA Macular degeneration/legal blindness COPD HLD GERD PSHX: Aortogram EGD/colonoscopy cataract extraction SOCHX: Tobacco use: former smoker ETOH: denies FAMHX: CAD/HTN ROS: As noted in HPI, otherwise 11pt ROS of systems reviewed and unremarkable. PE: GEN: 83yoF, appears stated age. Well-nourished, well developed. No acute distre ss. Alert and oriented x 3. Pleasant, interactive. HEENT: Normocephalic, atraumatic. Moist mucous membranes. l CHEST: Regular rate and rhythm, +S1, +S2 LUNGS: Clear to auscultation bilaterally. No wheezes, rales, or rhonchi. Breathing appears symmetric and easy. ABD: Round, soft, non-tender, non-distended. +Bowel sounds throughout. EXT: No lower extremity edema appreciated. SKIN: [place], dry, warm. No rashes. NEURO: Alert and oriented x 3. Cranial nerves III-XII are intact. No focal deficits appreciated. A&P: 1. PAD/ left external iliac and common femoral artery endarterectomy with possible angioplasty and stenting of the left superficial femoral and popliteal arteries 03/22/[address] Fitzpatrick. The pt remains on ASA/Plavix/statin daily. 2. CAD/H/O UT. Coreg/asa/Statin. 3. H/O CVA. ASA/Plavix. 4. HTN Lisinopril/lasix temporarily on hold. 5. HLD. Statin. 6. COPD. Advair. 7. GERD. PPI Vital Signs Vital Signs Date Time Temp Pulse Resp B/P (MAP) Pulse Ox O2 Delivery O2 Flow Rate FiO2 03/22/19 07:09 97.9 86 20 185/71 (109) 96 Laboratory Data Labs 24H admission labs pending Home Medications Scheduled Aspirin (Aspirin EC) 81 Mg Tabec, 81 MG PO DAILY Atorvastatin Calcium (Atorvastatin Calcium) 40 Mg Tab, 40 MG PO QHS Carvedilol (Carvedilol) 3.125 Mg Tab, 3.125 MG PO BID Cholecalciferol (Vitamin D3) (Vitamin D3) 1,000 Unit Tab, 1,000 UNIT PO QHS Clopidogrel Bisulfate (Plavix) 75 Mg Tab, 75 MG PO DAILY Furosemide (Furosemide) 20 Mg Tab, 20 MG PO DAILY Lisinopril (Lisinopril) 5 Mg Tablet, 2.5 TAB PO DAILY Pantoprazole Sodium (Pantoprazole Sodium) 40 Mg Tab, 40 MG PO DAILY Potassium Chloride (Klor-Con M10) 10 Meq Tabcr, 10 MEQ PO BID Salmeterol/Fluticasone (Advair 250-50 Diskus) 14 Puff/Inhaler Aerp, 1 PUFF INH BID Vit A/Vit C/Vit E/Zinc/Copper (Preservision Areds Softgel) 1 Cap Cap, 1 CAP PO DAILY Scheduled PRN Nitroglycerin (Nitrostat) 0.4 Mg Subl, 0.4 MG SL NITRO PRN for ANGINA [Acetaminophen Tab] 325 MG/TAB TAB, 650 MG PO Q4HP PRN for PAIN Allergies Coded Allergies: Penicillins (Verified Allergy, Mild, RASH, 10/31/18) ciprofloxacin (Verified Adverse Reaction, Intermediate, TREMORS/ANXIETY, 10/31/18) A-FIB/CHADSVASC A-FIB History Current/History of A-Fib/PAF?: No Attending Note Attending Note VASCULAR SURGICAL ATTENDING NOTE: Dr. Meghana Fitzpatrick M.D. The patient was seen on 03/22/19 at 08:15 am. ASSESSMENT: Patient is an 83-year-old female with severe debilitating left lower extremity claudication who underwent angiography which showed severe atherosclerotic arterial occlusive disease in the infrarenal aorta, the aortoiliac arteries, the femoral popliteal arteries and the tibial peroneal arteries. Patient has previously undergone bilateral iliac artery antiplastic and stenting which relieved her claudication in her right leg but her left leg continues to have severe debilitating claudication. Patient has severe atherosclerotic arterial occlusive disease in her left external iliac artery, common femoral artery, profunda femoris artery and superficial femoral artery as well as atherosclerotic arterial occlusive disease at the superficial femoral and popliteal artery junction. PLAN: Patient will undergo a left external iliac artery, common femoral artery, superficial femoral artery and profunda femoris artery endarterectomy with patch angioplasty and possible left lower extremity angiogram with left superficial femoral and popliteal artery angioplasty, atherectomy and or stenting.The procedure was described and explained in detail to the patient including drawing of pictures demonstrating the procedure and pertinent anatomy. Risks, benefits and alternative treatment options were discussed with the patient and his daughter Shahrzad and his son Ziggy in the preoperative holding area. Alternative treatment options included but were not limited to no intervention. Benefits include but were not limited to removal of plaque from the femoral arteries with improved blood flow to the right lower extremity. Risks included but were not limited to infection, bleeding, renal failure requiring he modialysis, retroperitoneal hematoma, possible need for further surgical intervention, possible need for bypass grafting, possible requirement for transfusion of blood products, allergic reaction and/or complication from the prepping and draping materials, sedation related complication, scarring , bruising, nerve injury, anesthetic complications, cerebrovascular accident, myocardial infarction, pulmonary embolus, deep venous thrombosis, loss of limb, loss of life, poor satisfaction and poor outcome. Risks of not performing the procedure included but were not limited to worsening of current symptoms, worsening of atherosclerotic arterial occlusive disease resulting in possible limb loss and . Patient's questions were answered. Patient voices understanding of these risks, benefits and alternative treatment options. Patient voices acceptance of the risks associated with the procedure and agrees to proceed excepting the associated risks of the procedure. No guarantees or promises were made regarding the results or outcome of the procedure. Leoncio Vera was the attending vascular surgeon for this patient encounter. The patient was seen, examined, interviewed and evaluated independently by Dr. Phoenix Fitzpatrick M.D. Dr. Phoenix Fitzpatrick M.D. was fully available during the consultation evaluation. All aspects of the patient interview, examination, medical decision making process, and medical care plan development were reviewed and approved by Dr. Phoenix Fitzpatrick M.D. Dr. Phoenix Fitzpatrick M.D. is aware and concurs with the plan as stated in the body of this note and will attest to such by his/her cosignature. Unique Gillespie Mar 22, 2019 09:31 Kp Fitzpatrick MD Mar 22, 2019 12:48
[2019-03-22] MEDS ORDERED: PROTAMINE SULF INJ 50 MG/5 ML VIAL (J2720) As Ordered ONE (10:32)
[2019-03-22] MEDS ORDERED: NITROGLYCERIN 0.4 MG SUBL TABLET SL PRN (11:00)
[2019-03-22] MEDS ORDERED: MORPHINE 4 MG/ML 1ML VIAL/SYRINGE (J2270) IV PRN (11:00)
[2019-03-22] MEDS ORDERED: MOM 30ML SUSPENSION UDC PO PRN (11:00)
[2019-03-22] MEDS ORDERED: BISACODYL 10 MG SUPP PR PRN (11:00)
[2019-03-22] MEDS ORDERED: LR 1,000 ML IV SCH (11:15)
[2019-03-22] MEDS ORDERED: ONDANSETRON 4MG/2ML VIAL (J2405) IV PRN (11:15)
[2019-03-22] MEDS ORDERED: METOCLOPRAMIDE INJ 10MG/2ML VIAL (J2765) IV PRN (11:15)
[2019-03-22] MEDS ORDERED: fentaNYL 100 MCG/2 ML INJECTION (J3010) IV PRN (11:15)
--- NOTE | 2019-03-22 13:07 | ROOPDOC ---
[facility] Report Of Operation Report of Operation DATE OF PROCEDURE: 03/22/2019 PREOPERATIVE DIAGNOSES: Left lower extremity claudication. Aortoiliac atherosclerotic arterial occlusive disease. Femoral-popliteal atherosclerotic arterial occlusive disease. Carotid artery stenosis, COPD, coronary artery disease, gastroesophageal reflux disease and hyperlipidemia History of tobacco use. POSTOPERATIVE DIAGNOSES: Left lower extremity claudication. Aortoiliac atherosclerotic arterial occlusive disease. Femoral-popliteal atherosclerotic arterial occlusive disease. Carotid artery stenosis, COPD, coronary artery disease, gastroesophageal reflux disease and hyperlipidemia History of tobacco use. PROCEDURE: Left external iliac artery endarterectomy. Left common femoral artery endarterectomy. Left profunda femoris artery endarterectomy. Left superficial femoral artery endarterectomy. Patch angioplasty with Xenosure biologic patch of the left external iliac artery, common femoral artery, profunda femoris artery and superficial femoral artery arteriotomy. SURGEON: Dr. Meghana Fitzpatrick M.D. SIDEHAND: None INDICATION: Patient is 83-year-old female with history of bilateral lower extremity claudication left greater than right. Patient underwent angiography with bilateral iliac artery angioplasty and stenting with improvement in her right lower extremity symptoms but continued pain in her left lower extremity. Patient has severe aortic narrowing in the infrarenal aorta with no symptoms at this time and the right lower extremity and continued symptoms in the left lower extremity. The angiogram showed severe atherosclerotic arterial occlusive disease in the left external iliac artery, common femoral artery, profunda femoris artery and superficial femoral artery proximally as well as at the superficial femoral and popliteal artery junction. The femoral, superficial femoral and profunda femoris artery atherosclerotic occlusive disease was not amenable to endovascular repair and the recommendation was for the patient to undergo a femoral endarterectomy with patch angioplasty, followed by possible repeat angiogram with angioplasty and possible stenting of the left superficial femoral and popliteal artery atherosclerotic arterial occlusive disease. The procedure was described and explained in detail to the patient including drawing of pictures demonstrating the procedure and pertinent anatomy. Risks, benefits and alternative treatment options were discussed with the patient and his daughter Shahrzad and his son Ziggy in the preoperative holding area. Alternative treatment options included but were not limited to no intervention. Benefits include but were not limited to removal of plaque from the femoral arteries with improved blood flow to the right lower extremity. Risks included but were not limited to infection, bleeding, renal failure requiring hemodialysis, retroperitoneal hematoma, possible need for further surgical and or endovascular intervention, possible need for bypass grafting, possible requirement for transfusion of blood products, allergic reaction and/or complication from the prepping and draping materials, sedation related complication, scarring , bruising, nerve injury, anesthetic complications, cerebrovascular accident, myocardial infarction, pulmonary embolus, deep venous thrombosis, loss of limb, loss of life, poor satisfaction and poor outcome. Risks of not performing the procedure included but were not limited to worsening of current symptoms, worsening of atherosclerotic arterial occlusive disease resulting in possible limb loss and . Patient's questions were answered. Patient voices understanding of these risks, benefits and alternative treatment options. Patient voices acceptance of the risks associated with the procedure and agrees to proceed excepting the associated risks of the procedure. No guarantees or promises were made regarding the results or outcome of the procedure. The patient signed the consent in the preoperative holding area after all questions were answered from the patient and, her family. ANESTHESIA: Local Mac. ESTIMATED BLOOD LOSS: 100 mL. IV FLUIDS: 500 mL. HEPARIN: 7000, units PROTAMINE: 50 mg COMPLICATIONS: None DRAINS: None SPECIMENS: Left External iliac artery, common femoral artery, profunda femoris artery and superficial femoral arterial plaque. PROCEDURE: Patient was taken to the operating room, placed supine on the operating room table and the patient was prepped and draped in a standard surgical fashion. A surgical time out confirming the correct patient, procedure and laterality was then performed by myself and the team members within the operating room. An incision was then made obliquely in the inguinal region overlying the left femoral artery. The dissection was carried down to the common femoral artery which was identified and sharply dissected proximally and distally. The profunda femoris and superficial femoral artery were also identified and sharply dissected free. There was also a vessel which appeared to be an accessory profunda femoris artery originating proximal to the main profunda femoris artery which was sharply dissected. These vessels were then encircled with vessel loops. Patient was given heparin for systemic anticoagulation. The common femoral artery was clamped using a Satinsky clamp. The superficial femoral and profunda femoris arteries were clamped using profunda clamps. An arteriotomy was then created using an 11 blade scalpel. The arteriotomy was elongated using pot scissors proximally into the common femoral artery and distally through the common femoral artery into the superficial femoral artery. The femoral endarterectomy was then performed with removal of plaque from the common femoral artery, superficial femoral artery and profunda femoris arteries. There was severe calcific atherosclerotic arterial occlusive disease and plaque in the common femoral, superficial femoral and profunda femoris arteries with near complete occlusion of the common femoral artery in the midportion. There was good back bleeding noted from the superficial femoral and profunda femoris arteries after the endarterectomy. The in the flow through the common femoral artery was suboptimal. The dissection was carried up higher under the inguinal ligament exposing the right external iliac artery which was then encircled with a vessel loop. The external iliac artery was clamped with a Satinsky clamp. The arteriotomy was extended from the common femoral into the external iliac artery. Endarterectomy was then performed of the right external iliac artery. There was severe calcific atherosclerotic arterial occlusive disease noted in the distal external iliac artery. There was good arterial inflow after completion of the left external iliac artery endarterectomy. The arteriotomy was closed using a Xenosure biologic patch and 6-0 Prolene suture in running continuous fashion. The external iliac artery was flushed antegrade. The superficial femoral artery and profunda femoris artery were flushed retrograde. The arteriotomy was irrigated with heparinized saline. The arteriotomy closure was completed. Flow was reestablished through the external iliac artery into the common femoral artery, superficial femoral and profunda femoris arteries. Continuous wave Doppler was used to evaluate the flow through the external iliac artery common femoral artery, superficial femoral and profunda femoris arteries which was noted to be good. Hemostasis was obtained using interrupted 6-0 Prolene sutures and thrombin and Gelfoam. The incision was then closed using 2-0 Vicryl to approximate the femoral sheath and deeper layers. 2-0 Vicryl suture was then used to approximate the subcutaneous tissue. The skin was then closed using Liz. Steri-Strips and dressings were applied. All instruments sponge and needle counts were correct at the end of the case. There were no complications. Dr. Fitzpatrick was present for and directed the entire case. Patient was transferred to the recovery room awake, alert, extubated and in stable condition. The results and description of the procedure were explained and described to the patient in the recovery room. All of the patient's questions were answered. The results of the procedure were explained and described to the patient's family in the surgical waiting room postoperatively. All of the patient's family's questions were answered. Kp Fitzpatrick MD Mar 22, 2019 13:07
[2019-03-22] MEDS: SENOKOT S TAB PO SCH ×2 (14:52→20:33)
[2019-03-22] MEDS: DOCUSATE SODIUM 100 MG CAP PO SCH ×2 (14:53→20:33)
[2019-03-22] MEDS: NORCO, ANEXSIA 5/325MG TABLET (HYDROcodone/ACETAMINOPHEN) PO PRN ×2 (14:53→20:38)
[2019-03-22] MEDS ORDERED: NON-325T5 PO (15:10)
[2019-03-22] MEDS ORDERED: ALBUTEROL SULFATE 2.5 MG/0.5 ML INH NEB SOLN NEB PRN (16:30)
--- NOTE | 2019-03-22 16:35 | HPEPDOC ---
General Date of Admission Mar 22, 2019 at 06:59 Date of Service: Mar 22, 2019 Chief Complaint The patient is a 83-year-old female admitted with a reason for visit of Aortoiliac And Femoral Popliteal Arterial.... Source: Patient, Family, RN/MD, Old records Severity: Moderate History of Present Illness Consultation Report Consultation requested by Dr Fitzpatrick Consultation for management of medical commorbidities. HPI : 83 year old female with PMH of PAD including Aortoiliac atherosclerotic arterial occlusive disease, Femoral-popliteal atherosclerotic arterial occlusive disease, h/o bilateral lower leg stents, Carotid artery stenosis, COPD, coronary artery disease s/p stents, gastroesophageal reflux disease and hyperlipidemia, Possible sleep apnea on nocturnal oxygen only , never had a sleep study, History of tobacco use was admitted for management of left leg molly dication and underwent elective Left external iliac artery endarterectomy, Left common femoral artery endarterectomy, Left profunda femoris artery endarterectomy. Left superficial femoral artery endarterectomy, Patch angioplasty with Xenosure biologic patch of the left external iliac artery, common femoral artery, profunda femoris artery and superficial femoral artery arteriotomy. Hospitalist has been consulted for the management of her medical commorbidities. Patient complains of left leg pain, it is burning and throbbing in nature, 8/10 in intensity and extends through the leg from the thigh to the feet. Home Medications Scheduled Aspirin (Aspirin EC) 81 Mg Tabec, 81 MG PO DAILY, (Reported) Atorvastatin Calcium (Atorvastatin Calcium) 40 Mg Tab, 40 MG PO QHS, (Reported) Carvedilol (Carvedilol) 3.125 Mg Tab, 3.125 MG PO BID, (Reported) Cholecalciferol (Vitamin D3) (Vitamin D3) 1,000 Unit Tab, 1,000 UNIT PO QHS, (Reported) Clopidogrel Bisulfate (Plavix) 75 Mg Tab, 75 MG PO DAILY, (Reported) Furosemide (Furosemide) 20 Mg Tab, 20 MG PO DAILY, (Reported) Lisinopril (Lisinopril) 5 Mg Tablet, 2.5 TAB PO DAILY, (Reported) Pantoprazole Sodium (Pantoprazole Sodium) 40 Mg Tab, 40 MG PO DAILY, (Reported) Potassium Chloride (Klor-Con M10) 10 Meq Tabcr, 10 MEQ PO BID, (Reported) Salmeterol/Fluticasone (Advair 250-50 Diskus) 14 Puff/Inhaler Aerp, 1 PUFF INH BID, (Reported) Vit A/Vit C/Vit E/Zinc/Copper (Preservision Areds Softgel) 1 Cap Cap, 1 CAP PO QHS, (Reported) Scheduled PRN Acetaminophen (Acetaminophen) 325 Mg Tablet, 650 MG PO Q4H PRN for PAIN, (Reported) Nitroglycerin (Nitrostat) 0.4 Mg Subl, 0.4 MG SL NITRO PRN for ANGINA, (Reported) Allergies Coded Allergies: Penicillins (Verified Allergy, Mild, RASH, 10/31/18) ciprofloxacin (Verified Adverse Reaction, Intermediate, TREMORS/ANXIETY, 10/31/18) Past Medical History Medical History PAD including: Aortoiliac atherosclerotic arterial occlusive disease. Femoral- popliteal atherosclerotic arterial occlusive disease. Carotid artery stenosis, COPD, coronary artery disease s/p AMI x 2, gastroesophageal reflux disease and hyperlipidemia Possible sleep apnea on nocturnal oxygen only , never had a sleep study. History of tobacco use. Stroke Macular degeneration Systolic CHF with EF of 50% Severe pulmonary Hypertension RSVP of 74 Surgical History ARDIAC STENT 09/2012 CARDIAC STENT 10/2016 ENDO/COLONOSCOPE ANGIOGRAM COLONOSCOPY ENDOSCOPE FEMORAL ARTERY STENTS 07/2018 BILAT. CATARACT EXTRACTIONS Family History FATHER: , ANGINA MOTHER: 93 YRS, DIABETES, MACULAR DEGENERATION, HYPERTENSION SIBLINGS: NO KNOWN MEDICAL PROBLEMS 1 BROTHER 1 BROTHER(S) - HEALTHY. 6DAUGHTER(S) - HEALTHY. Social History * Smoker: former Smoker Alcohol: Denies Drugs: denies A-FIB/CHADSVASC A-FIB History Current/History of A-Fib/PAF?: No Review of Systems Constitutional: Denies: Chills, Fever, Night Sweats Eyes: Denies: Pain, Vision change ENT: Denies: Head Aches, Ear Pain, Dysphagia Skin: Denies: Rash, Lesions, Jaundice, Bruising, Itching, Dry, Breakdown, Nail Changes, Other Pulmonary: Denies: Dyspnea, Cough Cardiovascular: Denies: Chest Pain, Palpitations, Orthopnea, Paroxysmal Noc. Dyspnea, Lt Headedness Gastrointestinal: Denies: Nausea, Vomiting, Abdominal Pain, Diarrhea Hematologic: Denies: Bruising, Bleeding Excessively Musculoskeletal: Reports: Leg Pain, Foot Pain, Muscle Pain Psych: Reports: Mood Normal; Denies: Depression Physical Examination General Exam: Positive: Alert, Cooperative, No Acute Distress Eye Exam: Positive: PERRLA, Conjunctiva & lids normal, EOMI; Negative: Sclera icteric ENT Exam: Positive: Atraumatic, Mucous membr. moist/pink, Pharynx Normal Neck Exam: Positive: Supple, Other (left carotid bruit); Negative: JVD, thyromegaly Chest Exam: Positive: Diminished, Other (bilateral basal crackles); Negative: Rhonchi, Wheezing Heart Exam: Positive: Rate Normal, Regular Rhythm, Normal S1, Normal S2, Murmurs (systolic murmur present at the base of the heart); Negative: Rubs Telemetry: Positive: No significant arrhythmia Abdomen Exam: Positive: Normal bowel sounds, Soft, Hernia; Negative: Tenderness, Hepatospenomegaly Extremity Exam: Negative: Clubbing, Cyanosis, Edema Vital Signs Vital Signs Date Time Temp Pulse Resp B/P (MAP) Pulse Ox O2 Delivery O2 Flow Rate FiO2 03/22/19 14:53 20 03/22/19 11:49 96.4 76 112/55 (74) 98 2.0 Assessment/Plan 83 year old female with PMH of PAD including Aortoiliac atherosclerotic arterial occlusive disease, Femoral-popliteal atherosclerotic arterial occlusive disease, h/o bilateral lower leg stents, Carotid artery stenosis, COPD, coronary artery disease s/p stents, gastroesophageal reflux disease and hyperlipidemia, Possible sleep apnea on nocturnal oxygen only , never had a sleep study, History of tobacco use was admitted for management of left leg claudication and underwent elective Left external iliac artery endarterectomy, Left common femoral artery endarterectomy, Left profunda femoris artery endarterectomy. Left superficial femoral artery endarterectomy, Patch angioplasty with Xenosure biologic patch of the left external iliac artery, common femoral artery, profunda femoris artery and superficial femoral artery arteriotomy. Hospitalist has been consulted for the management of her medical commorbidities. PAD including: Aortoiliac atherosclerotic arterial occlusive disease. Femoral- popliteal atherosclerotic arterial occlusive disease. s/p surgey on 03/22/19 pain control and DVT prophylaxis as per surgeon on ASA and plavix. COPD continue advair albuterol prn Coronary artery disease s/p AMI x 2 continue statin, plavix, asa, betablocker Gastroesophageal reflux disease continue PPI hyperlipidemia continue statin Possible sleep apnea on nocturnal oxygen only , never had a sleep study. put on NINI protocol. continue oxygen supplementation at night. Systolic CHF with EF of 50% Severe pulmonary Hypertension RSVP of 74 No signs of fluid overload will hold lasix today will restart on discharge Hypertension BP well controlled continue coreg hold lasix and lisinopril today will restart tomorrow. Plan / VTE VTE Prophylaxis Ordered?: Yes BRITTANI CHOI MD Mar 22, 2019 16:35
[2019-03-22] MEDS: ADVAIR HFA 115/21MCG INHALER INH SCH (20:26)
[2019-03-22] MEDS: CARVedilol 3.125 MG TAB PO SCH (20:34)
[2019-03-22] MEDS: ATORVASTATIN 20 MG TAB PO SCH (20:34)
[2019-03-22] MEDS: VITAMIN D 1,000 INTERNATIONAL UNITS TABLET PO SCH (20:35)
[2019-03-23] VITALS (18 sets, daily range): BP systolic 112–130; BP diastolic 30–58; O2SAT 92–100
[2019-03-23 06:01] LABS: HEMATOCRIT 25.9 % (36.0-47.0); MEAN CORPUSCULAR HEMOGLOBIN 28.5 pg (27.0-33.0); MEAN CORPUSCULAR HGB CONC 30.9 g/dl (32.0-36.5); MEAN CORPUSCULAR VOLUME 92.2 fl (80.0-96.0); PLATELET COUNT, AUTOMATED 174 10^3/uL (150-450); RED BLOOD COUNT 2.81 10^6/uL (4.00-5.40); WHITE BLOOD COUNT 11.6 10^3/uL (4.0-10.0)
[2019-03-23 06:29] LABS: ALT/SGPT 11 U/L (12-78); BILIRUBIN,TOTAL 0.4 MG/DL (0.2-1.0); BLOOD UREA NITROGEN 12 MG/DL (7-18); CALCIUM LEVEL 8.7 MG/DL (8.8-10.2); CARBON DIOXIDE LEVEL 31 MEQ/L (21-32); CHLORIDE LEVEL 108 MEQ/L (98-107); CREATININE FOR GFR 0.73 MG/DL (0.55-1.30); GLOMERULAR FILTRATION RATE > 60.0 (>32); GLUCOSE, FASTING 130 MG/DL (70-100); SODIUM LEVEL 142 MEQ/L (136-145)
[2019-03-23] MEDS: ADVAIR HFA 115/21MCG INHALER INH SCH ×2 (08:23→20:25)
[2019-03-23] MEDS ORDERED: LISINOPRIL 5 MG TAB PO SCH (09:00)
[2019-03-23] MEDS ORDERED: FUROSEMIDE 20 MG TAB PO SCH (09:00)
[2019-03-23] MEDS: OCUVITE 1 TAB PO SCH (09:21)
[2019-03-23] MEDS: PANTOPRAZOLE 40MG TAB (PROTONIX) PO SCH (09:21)
[2019-03-23] MEDS: DOCUSATE SODIUM 100 MG CAP PO SCH ×2 (09:21→21:07)
[2019-03-23] MEDS: CARVedilol 3.125 MG TAB PO SCH ×2 (09:21→21:09)
[2019-03-23] MEDS: ASPIRIN 81 MG ENTERIC TAB PO SCH (09:22)
[2019-03-23] MEDS: CLOPIDOGREL 75 MG TAB PO SCH (09:22)
[2019-03-23] MEDS: SENOKOT S TAB PO SCH ×2 (09:22→21:10)
[2019-03-23] MEDS: ACETAMINOPHEN 500 MG TAB PO PRN ×2 (11:37→18:57)
--- NOTE | 2019-03-23 12:20 | IPNPDOC ---
Subjective Date Seen The patient was seen on 03/23/19. Subjective Chief Complaint/HPI says that after she took chase pain pill she was all confused , nauseous, dizziness did not know what was happening and was very uncomfortable till about 2 am after that she started feeling herself again and then slept well. Wants something else for pain. Her lower leg leg is still sore and the left groin is sore. No fever or chills, no chest pain or SOb, no abdominal pain nausea oor vomiting this morning. Objective Physical Examination General Exam: Positive: Alert, Cooperative, No Acute Distress Eye Exam: Positive: PERRLA, Conjunctiva & lids normal, EOMI; Negative: Sclera icteric ENT Exam: Positive: Atraumatic, Mucous membr. moist/pink, Pharynx Normal Neck Exam: Positive: Supple, Other (left carotid bruit); Negative: JVD, thyromegaly Chest Exam: Positive: Diminished, Other (bilateral basal crackles); Negative: Rhonchi, Wheezing Heart Exam: Positive: Rate Normal, Regular Rhythm, Normal S1, Normal S2, Murmurs (systolic murmur present at the base of the heart); Negative: Rubs Telemetry: Positive: No significant arrhythmia Abdomen Exam: Positive: Normal bowel sounds, Soft, Hernia; Negative: Tenderness, Hepatospenomegaly Extremity Exam: Negative: Clubbing, Cyanosis, Edema Assessment /Plan Assessment 83 year old female with PMH of PAD including Aortoiliac atherosclerotic arterial occlusive disease, Femoral-popliteal atherosclerotic arterial occlusive disease, h/o bilateral lower leg stents, Carotid artery stenosis, COPD, coronary artery disease s/p stents, gastroesophageal reflux disease and hyperlipidemia, Possible sleep apnea on nocturnal oxygen only , never had a sleep study, History of tobacco use was admitted for management of left leg claudication and underwent elective Left external iliac artery endarterectomy, Left common femoral artery endarterectomy, Left profunda femoris artery endarterectomy. Left superficial femoral artery endarterectomy, Patch angioplasty with Xenosure biologic patch of the left external iliac artery, common femoral artery, profunda femoris artery and superficial femoral artery arteriotomy. Hospitalist has been consulted for the management of her medical commorbidities. PAD including: Aortoiliac atherosclerotic arterial occlusive disease. Femoral- popliteal atherosclerotic arterial occlusive disease. s/p surgery on the left on 03/22/19 pain control and DVT prophylaxis as per surgeon patient does not want the norco it made her feel very bad so put her only on tylenol. on ASA and plavix. COPD continue advair albuterol prn Coronary artery disease s/p AMI x 2 continue statin, plavix, asa, betablocker Gastroesophageal reflux disease continue PPI hyperlipidemia continue statin Possible sleep apnea on nocturnal oxygen only , never had a sleep study. continue oxygen supplementation at night. Systolic CHF with EF of 50% Severe pulmonary Hypertension RSVP of 74 No signs of fluid overload will hold lasix today will restart on discharge Hypertension BP well controlled continue coreg restart lasix and lisinopril today Plan/VTE VTE Prophylaxis Ordered?: Yes VS, I&O, 24H, Fishbone Vital Signs/I&O Vital Signs Date Time Temp Pulse Resp B/P (MAP) Pulse Ox O2 Delivery O2 Flow Rate FiO2 03/23/19 10:54 92 Nasal Cannula 2.0 03/23/19 09:21 83 120/30 03/23/19 08:00 97.8 16 I&O- Last 24 Hours up to 6 AM 03/23/19 05:59 Intake Total 1290 ml Output Total 700 ml Balance 590 ml Laboratory Data 24H LABS Laboratory Tests 2 03/23/19 05:38: Nucleated Red Blood Cells % (auto) 0.0, Anion Gap 3L, Glomerular Filtration Rate > 60.0, Blood Urea Nitrogen 12, Creatinine 0.73, Sodium Level 142, Potassium L evel 4.0, Chloride Level 108H, Carbon Dioxide Level 31, Calcium Level 8.7L, Aspartate Amino Transf (AST/SGOT) 9, Alanine Aminotransferase (ALT/SGPT) 11L, Alkaline Phosphatase 56, Total Bilirubin 0.4, Total Protein 6.0L, Albumin 3.0L, Albumin/Globulin Ratio 1.00 CBC/BMP Laboratory Tests 03/23/19 05:38 Red Blood Count 2.81 L, Mean Corpuscular Volume 92.2, Mean Corpuscular Hemog lobin 28.5, Mean Corpuscular Hemoglobin Concent 30.9 L, Red Cell Distribution Width 13.0, Calcium Level 8.7 L, Aspartate Amino Transf (AST/SGOT) 9, Alanine Aminotransferase (ALT/SGPT) 11 L, Alkaline Phosphatase 56, Total Bilirubin 0.4, Total Protein 6.0 L, Albumin 3.0 L BRITTANI CHOI MD Mar 23, 2019 12:20
[2019-03-23] MEDS ORDERED: KETOROLAC 30 MG/ML VIAL (J1885) IV ONE (16:00)
[2019-03-23] MEDS: VITAMIN D 1,000 INTERNATIONAL UNITS TABLET PO SCH (21:10)
[2019-03-23] MEDS: LISINOPRIL *2.5 MG* TAB PO SCH (21:10)
[2019-03-23] MEDS: ATORVASTATIN 20 MG TAB PO SCH (21:10)
[2019-03-23 21:58] LABS: BASO % 0.3 % (0.0-1.0); EOS # 0.1 10^3/uL (0.0-0.50); EOS % 1.1 % (0.0-3.0); HEMATOCRIT 25.6 % (36.0-47.0); LYMPH # 1.7 10^3/uL (1.5-4.5); LYMPH % 14.2 % (24.0-44.0); MEAN CORPUSCULAR HEMOGLOBIN 28.8 pg (27.0-33.0); MEAN CORPUSCULAR HGB CONC 31.3 g/dl (32.0-36.5); MEAN CORPUSCULAR VOLUME 92.1 fl (80.0-96.0); MONO # 1.4 10^3/uL (0.0-0.8); MONO % 11.6 % (0.0-5.0); NEUTROPHILS # 8.4 10^3/uL (1.8-7.7); NEUTROPHILS % 72.4 % (36.0-66.0); PLATELET COUNT, AUTOMATED 171 10^3/uL (150-450); RED BLOOD COUNT 2.78 10^6/uL (4.00-5.40); WHITE BLOOD COUNT 11.6 10^3/uL (4.0-10.0)
[2019-03-23 22:17] LABS: CALCIUM LEVEL 8.6 MG/DL (8.8-10.2); CREATININE FOR GFR 1.16 MG/DL (0.55-1.30); GLOMERULAR FILTRATION RATE 47.6 (>32); POTASSIUM SERUM 3.5 MEQ/L (3.5-5.1)
[2019-03-24] VITALS (23 sets, daily range): BP systolic 103–131; BP diastolic 51–63; O2SAT 83–100
[2019-03-24 06:44] LABS: BASO % 0.4 % (0.0-1.0); EOS # 0.2 10^3/uL (0.0-0.50); EOS % 2.4 % (0.0-3.0); HEMATOCRIT 24.3 % (36.0-47.0); HEMOGLOBIN 7.4 g/dl (12.0-15.5); LYMPH # 1.9 10^3/uL (1.5-4.5); LYMPH % 20.4 % (24.0-44.0); MEAN CORPUSCULAR HEMOGLOBIN 27.9 pg (27.0-33.0); MEAN CORPUSCULAR HGB CONC 30.5 g/dl (32.0-36.5); MEAN CORPUSCULAR VOLUME 91.7 fl (80.0-96.0); MONO # 1.1 10^3/uL (0.0-0.8); NEUTROPHILS # 5.9 10^3/uL (1.8-7.7); NEUTROPHILS % 64.6 % (36.0-66.0); PLATELET COUNT, AUTOMATED 151 10^3/uL (150-450); RED BLOOD COUNT 2.65 10^6/uL (4.00-5.40); WHITE BLOOD COUNT 9.2 10^3/uL (4.0-10.0)
[2019-03-24] MEDS: ACETAMINOPHEN 500 MG TAB PO PRN ×2 (07:33→14:26)
[2019-03-24] MEDS: ADVAIR HFA 115/21MCG INHALER INH SCH ×2 (08:41→20:15)
[2019-03-24] MEDS: DOCUSATE SODIUM 100 MG CAP PO SCH ×2 (09:47→21:00)
[2019-03-24] MEDS: SENOKOT S TAB PO SCH ×2 (09:48→21:00)
[2019-03-24] MEDS: CARVedilol 3.125 MG TAB PO SCH ×2 (09:48→21:29)
[2019-03-24] MEDS: OCUVITE 1 TAB PO SCH (09:48)
[2019-03-24] MEDS: PANTOPRAZOLE 40MG TAB (PROTONIX) PO SCH (09:48)
[2019-03-24] MEDS: CLOPIDOGREL 75 MG TAB PO SCH (09:48)
[2019-03-24] MEDS: ASPIRIN 81 MG ENTERIC TAB PO SCH (09:49)
[2019-03-24] MEDS ORDERED: FUROSEMIDE 20 MG/2 ML VIAL (J1940) IV ONE (12:00)
--- NOTE | 2019-03-24 12:01 | IPNPDOC ---
Subjective Date Seen The patient was seen on 03/24/19. Subjective Chief Complaint/HPI pain is better controlled. Though the lower part of her left leg is very sore and tender to touch. No fever or chills, no juan luis or hematochezia. No chest pain r sob , no abdominal pain nausea or vomiting or diarrhea Objective Physical Examination General Exam: Positive: Alert, Cooperative, No Acute Distress Eye Exam: Positive: PERRLA, Conjunctiva & lids normal, EOMI; Negative: Sclera icteric ENT Exam: Positive: Atraumatic, Mucous membr. moist/pink, Pharynx Normal Neck Exam: Positive: Supple, Other (left carotid bruit); Negative: JVD, thyromegaly Chest Exam: Positive: Diminished, Other (bilateral basal crackles); Negative: Rhonchi, Wheezing Heart Exam: Positive: Rate Normal, Regular Rhythm, Normal S1, Normal S2, Murmurs (systolic murmur present at the base of the heart); Negative: Rubs Telemetry: Positive: No significant arrhythmia Abdomen Exam: Positive: Normal bowel sounds, Soft, Hernia; Negative: Tenderness, Hepatospenomegaly Extremity Exam: Negative: Clubbing, Cyanosis, Edema Assessment /Plan Assessment 83 year old female with PMH of PAD including Aortoiliac atherosclerotic arterial occlusive disease, Femoral-popliteal atherosclerotic arterial occlusive disease, h/o bilateral lower leg stents, Carotid artery stenosis, COPD, coronary artery disease s/p stents, gastroesophageal reflux disease and hyperlipidemia, Possible sleep apnea on nocturnal oxygen only , never had a sleep study, History of tobacco use was admitted for management of left leg cla udication and underwent elective Left external iliac artery endarterectomy, Left common femoral artery endarterectomy, Left profunda femoris artery endarterectomy. Left superficial femoral artery endarterectomy, Patch angioplasty with Xenosure biologic patch of the left external iliac artery, common femoral artery, profunda femoris artery and superficial femoral artery arteriotomy. Hospitalist has been consulted for the management of her medical commorbidities. PAD including: Aortoiliac atherosclerotic arterial occlusive disease. Femoral- popliteal atherosclerotic arterial occlusive disease. s/p surgery on the left on 03/22/19 pain control and DVT prophylaxis as per surgeon patient does not want the norco it made her feel very bad so put her only on tylenol. on ASA and plavix. Anemia this is new from December. her hh has dropped from over 11 to 8.0 prior to surgery. will transfuse 1 unit PRBC today. will give lasix 40 mg after transfusion will send stool for occult blood iron panel vit B12 and folate. Her ferritin was only 23 in December 2018 COPD continue advair albuterol prn Coronary artery disease s/p AMI x 2 continue statin, plavix, asa, betablocker Gastroesophageal reflux disease continue PPI hyperlipidemia continue statin Possible sleep apnea on nocturnal oxygen only , never had a sleep study. continue oxygen supplementation at night. Systolic CHF with EF of 50% Severe pulmonary Hypertension RSVP of 74 No signs of fluid overload will hold lasix today will restart on discharge Hypertension BP well controlled continue coreg restart lasix and lisinopril today Plan/VTE VTE Prophylaxis Ordered?: Yes VS, I&O, 24H, Fishbone Vital Signs/I&O Vital Signs Date Time Temp Pulse Resp B/P (MAP) Pulse Ox O2 Delivery O2 Flow Rate FiO2 03/24/19 11:00 93 Nasal Cannula 2.0 03/24/19 09:48 69 112/53 03/24/19 08:00 97.2 17 I&O- Last 24 Hours up to 6 AM 03/24/19 06:00 Intake Total 858 ml Output Total 200 ml Balance 658 ml Laboratory Data 24H LABS Laboratory Tests 2 03/23/19 21:47: Immature Granulocyte % (Auto) 0.4, White Blood Count 11.6H, Red Blood Count 2.78L, Hemoglobin 8.0L, Hematocrit 25.6L, Mean Corpuscular Volume 92.1, Mean Corpuscular Hemoglobin 28.8, Mean Corpuscular Hemoglobin Concent 31.3L, Red Cell Distribution Width 13.2, Platelet Count 171, Neutrophils (%) (Auto) 72.4H, Lymphocytes (%) (Auto) 14.2L, Monocytes (%) (Auto) 11.6H, Eosinophils (%) (Auto) 1.1, Basophils (%) (Auto) 0.3, Neutrophils # (Auto) 8.4H, Lymphocytes # (Auto) 1.7, Monocytes # (Auto) 1.4H, Eosinophils # (Auto) 0.1, Basophils # (Auto) 0.0, Nucleated Red Blood Cells % (auto) 0.0, Anion Gap 9, Glomerular Filtration Rate 47.6, Blood Urea Nitrogen 17, Creatinine 1.16#, Sodium Level 143, Potassium Level 3.5, Chloride Level 105, Carbon Dioxide Level 29, Calcium Level 8.6L 03/24/19 06:32: Immature Granulocyte % (Auto) 0.2, White Blood Count 9.2, Red Blood Count 2.65L, Hemoglobin 7.4L, Hematocrit 24.3L, Mean Corpuscular Volume 91.7, Mean Corpuscular Hemoglobin 27.9, Mean Corpuscular Hemoglobin Concent 30.5L, Red Cell Distribution Width 13.3, Platelet Count 151, Neutrophils (%) (Auto) 64.6, Lymphocytes (%) (Auto) 20.4L, Monocytes (%) (Auto) 12.0H, Eosinophils (%) (Auto) 2.4, Basophils (%) (Auto) 0.4, Neutrophils # (Auto) 5.9, Lymphocytes # (Auto) 1.9, Monocytes # (Auto) 1.1H, Eosinophils # (Auto) 0.2, Basophils # (Auto) 0.0, Nucleated Red Blood Cells % (auto) 0.0 CBC/BMP Laboratory Tests 03/23/19 21:47 Red Blood Count 2.78 L, Mean Corpuscular Volume 92.1, Mean Corpuscular Hemoglobin 28.8, Mean Corpuscular Hemoglobin Concent 31.3 L, Red Cell Distribution Width 13.2, Neutrophils (%) (Auto) 72.4 H, Lymphocytes (%) (Auto) 14.2 L, Monocytes (%) (Auto) 11.6 H, Eosinophils (%) (Auto) 1.1, Basophils (%) (Auto) 0.3, Neutrophils # (Auto) 8.4 H, Lymphocytes # (Auto) 1.7, Monocytes # (Auto) 1.4 H, Eosinophils # (Auto) 0.1, Basophils # (Auto) 0.0, Calcium Level 8.6 L 03/24/19 06:32 Red Blood Count 2.65 L, Mean Corpuscular Volume 91.7, Mean Corpuscular Hemoglobin 27.9, Mean Corpuscular Hemoglobin Concent 30.5 L, Red Cell Distribution Width 13.3, Neutrophils (%) (Auto) 64.6, Lymphocytes (%) (Auto) 20.4 L, Monocytes (%) (Auto) 12.0 H, Eosinophils (%) (Auto) 2.4, Basophils (%) (Auto) 0.4, Neutrophils # (Auto) 5.9, Lymphocytes # (Auto) 1.9, Monocytes # (Auto) 1.1 H, Eosinophils # (Auto) 0.2, Basophils # (Auto) 0.0 BRITTANI CHOI MD Mar 24, 2019 12:01
[2019-03-24 13:09] LABS: PERCENT SATURATION 9.1 % (13.2-45.0)
[2019-03-24] MEDS: LISINOPRIL *2.5 MG* TAB PO SCH (21:29)
[2019-03-24] MEDS: ATORVASTATIN 20 MG TAB PO SCH (21:29)
[2019-03-24] MEDS: VITAMIN D 1,000 INTERNATIONAL UNITS TABLET PO SCH (21:29)
[2019-03-25] VITALS (32 sets, daily range): BP systolic 112–164; BP diastolic 50–71; O2SAT 83–100
[2019-03-25] MEDS: ACETAMINOPHEN 500 MG TAB PO PRN ×2 (01:40→16:55)
[2019-03-25] MEDS ORDERED: IRON SUCROSE 500 MG in NS 250 ML IV ONE (07:00)
[2019-03-25] MEDS ORDERED: IRON SUCROSE 25 MG in NS 50 ML IV ONE (08:00)
[2019-03-25] MEDS: ADVAIR HFA 115/21MCG INHALER INH SCH ×2 (08:06→20:15)
[2019-03-25] MEDS ORDERED: IRON SUCROSE 475 MG in NS 250 ML IV ONE (09:00)
[2019-03-25 09:19] LABS: BASO # 0.1 10^3/uL (0.0-0.2); BASO % 0.9 % (0.0-1.0); EOS # 0.3 10^3/uL (0.0-0.50); LYMPH # 1.9 10^3/uL (1.5-4.5); LYMPH % 22.8 % (24.0-44.0); MEAN CORPUSCULAR HEMOGLOBIN 28.9 pg (27.0-33.0); MEAN CORPUSCULAR HGB CONC 31.2 g/dl (32.0-36.5); MEAN CORPUSCULAR VOLUME 92.6 fl (80.0-96.0); MONO # 0.8 10^3/uL (0.0-0.8); MONO % 9.6 % (0.0-5.0); NEUTROPHILS # 5.1 10^3/uL (1.8-7.7); NEUTROPHILS % 62.5 % (36.0-66.0); PLATELET COUNT, AUTOMATED 178 10^3/uL (150-450); RED BLOOD COUNT 3.67 10^6/uL (4.00-5.40); WHITE BLOOD COUNT 8.2 10^3/uL (4.0-10.0)
[2019-03-25] MEDS: DOCUSATE SODIUM 100 MG CAP PO SCH ×2 (09:25→21:17)
[2019-03-25] MEDS: ASPIRIN 81 MG ENTERIC TAB PO SCH (09:25)
[2019-03-25] MEDS: PANTOPRAZOLE 40MG TAB (PROTONIX) PO SCH (09:25)
[2019-03-25] MEDS: CLOPIDOGREL 75 MG TAB PO SCH (09:25)
[2019-03-25] MEDS: OCUVITE 1 TAB PO SCH (09:25)
[2019-03-25] MEDS: SENOKOT S TAB PO SCH ×2 (09:25→21:17)
[2019-03-25] MEDS: CARVedilol 3.125 MG TAB PO SCH ×2 (09:26→21:18)
[2019-03-25 09:29] LABS: BLOOD UREA NITROGEN 16 MG/DL (7-18); CALCIUM LEVEL 8.7 MG/DL (8.8-10.2); CARBON DIOXIDE LEVEL 31 MEQ/L (21-32); CHLORIDE LEVEL 104 MEQ/L (98-107); CREATININE FOR GFR 0.84 MG/DL (0.55-1.30); GLOMERULAR FILTRATION RATE > 60.0 (>32); GLUCOSE, FASTING 150 MG/DL (70-100); POTASSIUM SERUM 3.8 MEQ/L (3.5-5.1); SODIUM LEVEL 143 MEQ/L (136-145)
[2019-03-25 09:34] LABS: HEMOGLOBIN 10.6 g/dl (12.0-15.5)
[2019-03-25] MEDS: ONDANSETRON 4MG/2ML VIAL (J2405) IV PRN ×2 (09:44→09:46)
[2019-03-25] MEDS ORDERED: KETOROLAC 30 MG/ML VIAL (J1885) IV ONE (10:00)
--- NOTE | 2019-03-25 10:42 | IPNPDOC ---
Subjective Date Seen The patient was seen on 03/25/19. Subjective Chief Complaint/HPI complaining of pain in the groin at one particular staple site. Does not like the morphine makes her feel "weird". Had bowel movement yesterday, no fever or chills, no chest pain or sob , no abdominal pain. Objective Physical Examination General Exam: Positive: Alert, Cooperative, No Acute Distress Eye Exam: Positive: PERRLA, Conjunctiva & lids normal, EOMI; Negative: Sclera icteric ENT Exam: Positive: Atraumatic, Mucous membr. moist/pink, Pharynx Normal Neck Exam: Positive: Supple, Other (left carotid bruit); Negative: JVD, thyromegaly Chest Exam: Positive: Diminished, Other (bilateral basal crackles); Negative: Rhonchi, Wheezing Heart Exam: Positive: Rate Normal, Regular Rhythm, Normal S1, Normal S2, Murmurs (systolic murmur present at the base of the heart); Negative: Rubs Telemetry: Positive: No significant arrhythmia Abdomen Exam: Positive: Normal bowel sounds, Soft, Hernia; Negative: Tenderness, Hepatospenomegaly Extremity Exam: Negative: Clubbing, Cyanosis, Edema Assessment /Plan Assessment 83 year old female with PMH of PAD including Aortoiliac atherosclerotic arterial occlusive disease, Femoral-popliteal atherosclerotic arterial occlusive disease, h/o bilateral lower leg stents, Carotid artery stenosis, COPD, coronary artery disease s/p stents, gastroesophageal reflux disease and hyperlipidemia, Possible sleep apnea on nocturnal oxygen only , never had a sleep study, History of tobacco use was admitted for management of left leg claudication and underwent elective Left external iliac artery endarterectomy, Left common femoral artery endarterectomy, Left profunda femoris artery endarterectomy. Left superficial femoral artery endarterectomy, Patch angioplasty with Xenosure biologic patch of the left external iliac artery, common femoral artery, profunda femoris artery and superficial femoral artery arteriotomy. Hospitalist has been consulted for the management of her medical commorbidities. PAD including: Aortoiliac atherosclerotic arterial occlusive disease. Femoral- popliteal atherosclerotic arterial occlusive disease. s/p surgery on the left on 03/22/19 pain control and DVT prophylaxis as per surgeon patient does not want the norco it made her feel very bad so put her only on tylenol. on ASA and plavix. toradol prn Anemia this is new from May. her hh has dropped from over 11 to 8.0 prior to surgery. recieved 1 unti prbc. will give lasix 40 mg after transfusion sent stool for occult blood iron panel vit B12 and folate. iron very low will give a dose of venofer. stool for occult blood positive x1 will need GI work up for anemia as as outpatient No overt bleeding from anywhere. COPD continue advair albuterol prn Coronary artery disease s/p AMI x 2 continue statin, plavix, asa, betablocker Gastroesophageal reflux disease continue PPI hyperlipidemia continue statin Possible sleep apnea on nocturnal oxygen only , never had a sleep study. continue oxygen supplementation at night. Systolic CHF with EF of 50% Severe pulmonary Hypertension RSVP of 74 No signs of fluid overload will hold lasix today will restart on discharge Hypertension BP well controlled continue coreg restart lasix and lisinopril today Plan/VTE VTE Prophylaxis Ordered?: Yes VS, I&O, 24H, Fishbone Vital Signs/I&O Vital Signs Date Time Temp Pulse Resp B/P (MAP) Pulse Ox O2 Delivery O2 Flow Rate FiO2 03/25/19 09:27 20 03/25/19 09:26 80 128/62 03/25/19 08:00 97.5 99 2.0 03/25/19 00:00 Nasal Cannula l I&O- Last 24 Hours up to 6 AM 03/25/19 06:00 Intake Total 350 ml Output Total 950 ml Balance -600 ml Laboratory Data 24H LABS Laboratory Tests 2 03/24/19 12:13: Iron Level 26L, Total Iron Binding Capacity 287, Transferrin % Saturation 9.1L, Ferritin 12, Lactate Dehydrogenase 256H 03/25/19 08:49: Immature Granulocyte % (Auto) 0.2, White Blood Count 8.2, Red Blood Count 3.67L, Hemoglobin 10.6#L, Hematocrit 34.0L, Mean Corpuscular Volume 92.6, Mean Corpuscular Hemoglobin 28.9, Mean Corpuscular Hemoglobin Concent 31.2L, Red Cell Distribution Width 13.5, Platelet Count 178, Neutrophils (%) (Auto) 62.5, Lymphocytes (%) (Auto) 22.8L, Monocytes (%) (Auto) 9.6H, Eosinophils (%) (Auto) 4.0H, Basophils (%) (Auto) 0.9, Neutrophils # (Auto) 5.1, Lymphocytes # (Auto) 1.9, Monocytes # (Auto) 0.8, Eosinophils # (Auto) 0.3, Basophils # (Auto) 0.1, Nucleated Red Blood Cells % (auto) 0.0, Anion Gap 8, Glomerular Filtration Rate > 60.0, Blood Urea Nitrogen 16, Creatinine 0.84, Sodium Level 143, Potassium Level 3.8, Chloride Level 104, Carbon Dioxide Level 31, Calcium Level 8.7L CBC/BMP Laboratory Tests 03/25/19 08:49 Red Blood Count 3.67 L, Mean Corpuscular Volume 92.6, Mean Corpuscular Hemoglobin 28.9, Mean Corpuscular Hemoglobin Concent 31.2 L, Red Cell Distribut ion Width 13.5, Neutrophils (%) (Auto) 62.5, Lymphocytes (%) (Auto) 22.8 L, Monocytes (%) (Auto) 9.6 H, Eosinophils (%) (Auto) 4.0 H, Basophils (%) (Auto) 0.9, Neutrophils # (Auto) 5.1, Lymphocytes # (Auto) 1.9, Monocytes # (Auto) 0.8, Eosinophils # (Auto) 0.3, Basophils # (Auto) 0.1, Calcium Level 8.7 L Microbiology Microbiology 03/24/19 Stool Occult Blood (ANGUS) - Final, Complete BRITTANI CHOI MD Mar 25, 2019 10:42
[2019-03-25 11:34] LABS: FOLATE 18.8 NG/ML (>5.4)
--- NOTE | 2019-03-25 12:57 | IPNPDOC ---
Date Seen The patient was seen on 03/25/19. Progress Note Vascular Surgery Dr Fitzpatrick HPI: 83year oldF with a past medical history significant for PAD. S/P LLE angiogram as per Dr Fitzpatrick 02/25/19. S/P Left external iliac artery endarterectomy, Left common femoral artery endarterectomy, Left profunda femoris artery endarterectomy , Left superficial femoral artery endarterectomy 03/22/[address] Fitzpatrick. Denies any fevers, chills, weakness, fatigue, Headache, Chest Pain, Shortness of breath, cough, palpitations, abdominal pain, N/V/D or changes in bowel or bladder habits. PMHx: PAD. Aortoiliac atherosclerotic arterial occlusive disease, bilateral lower extremity claudication. Patient underwent bilateral iliac artery [employer] and stenting carotid artery stenosis CAD/ Cardiac stents CVA Macular degeneration/legal blindness COPD HLD GERD PE: GEN: 83yoF, appears stated age. Well-nourished, well developed. No acute distress. Alert and oriented x 3. Pleasant, interactive. HEENT: Normocephalic, atraumatic. Moist mucous membranes. l CHEST: Regular rate and rhythm, +S1, +S2 LUNGS: Clear to auscultation bilaterally. No wheezes, rales, or rhonchi. Breathing appears symmetric and easy. ABD: Round, soft, non-tender, non-distended. +Bowel sounds throughout. EXT: No lower extremity edema appreciated. SKIN: dressing Lt groin dry, yolanda intact. NEURO: Alert and oriented x 3. Cranial nerves III-XII are intact. No focal d eficits appreciated. A&P: 1. PAD/ S/P Left external iliac artery endarterectomy, Left common femoral artery endarterectomy, Left profunda femoris artery endarterectomy , Left superficial femoral artery endarterectomy 03/22/[address] Fitzpatrick. ASA/Plavix/statin pain control bowel care PT/OT/D/C planning VS, I&O, 24H, Fishbone Vital Signs/I&O Vital Signs Date Time Temp Pulse Resp B/P (MAP) Pulse Ox O2 Delivery O2 Flow Rate FiO2 03/25/19 09:27 20 03/25/19 09:26 80 128/62 03/25/19 08:00 97.5 99 2.0 03/25/19 00:00 Nasal Cannula I&O- Last 24 Hours up to 6 AM 03/25/19 06:00 Intake Total 350 ml Output Total 950 ml Balance -600 ml Laboratory Data 24H LABS Laboratory Tests 2 03/25/19 08:49: Immature Granulocyte % (Auto) 0.2, White Blood Count 8.2, Red Blood Count 3.67L, Hemoglobin 10.6#L, Hematocrit 34.0L, Mean Corpuscular Volume 92.6, Mean Corpuscular Hemoglobin 28.9, Mean Corpuscular Hemoglobin Concent 31.2L, Red Cell Distribution Width 13.5, Platelet Count 178, Neutrophils (%) (Auto) 62.5, Lymphocytes (%) (Auto) 22.8L, Monocytes (%) (Auto) 9.6H, Eosinophils (%) (Auto) 4.0H, Basophils (%) (Auto) 0.9, Neutrophils # (Auto) 5.1, Lymphocytes # (Auto) 1.9, Monocytes # (Auto) 0.8, Eosinophils # (Auto) 0.3, Basophils # (Auto) 0.1, Nucleated Red Blood Cells % (auto) 0.0, Anion Gap 8, Glomerular Filtration Rate > 60.0, Blood Urea Nitrogen 16, Creatinine 0.84, Sodium Level 143, Potassium Level 3.8, Chloride Level 104, Carbon Dioxide Level 31, Calcium Level 8.7L CBC/BMP Laboratory Tests 03/25/19 08:49 Red Blood Count 3.67 L, Mean Corpuscular Volume 92.6, Mean Corpuscular Hemogl obin 28.9, Mean Corpuscular Hemoglobin Concent 31.2 L, Red Cell Distribution Width 13.5, Neutrophils (%) (Auto) 62.5, Lymphocytes (%) (Auto) 22.8 L, Monocytes (%) (Auto) 9.6 H, Eosinophils (%) (Auto) 4.0 H, Basophils (%) (Auto) 0.9, Neutrophils # (Auto) 5.1, Lymphocytes # (Auto) 1.9, Monocytes # (Auto) 0.8, Eosinophils # (Auto) 0.3, Basophils # (Auto) 0.1, Calcium Level 8.7 L Microbiology Microbiology 03/24/19 Stool Occult Blood (ANGUS) - Final, Complete Unique Gillespie Mar 25, 2019 12:57
[2019-03-25] MEDS: ATORVASTATIN 20 MG TAB PO SCH (21:16)
[2019-03-25] MEDS: VITAMIN D 1,000 INTERNATIONAL UNITS TABLET PO SCH (21:17)
[2019-03-25] MEDS: KETOROLAC 30 MG/ML VIAL (J1885) IV PRN (21:19)
[2019-03-25] MEDS: LISINOPRIL *2.5 MG* TAB PO SCH (21:19)
[2019-03-26] VITALS (12 sets, daily range): BP systolic 131–147; BP diastolic 55–80; O2SAT 88–100
[2019-03-26] MEDS: KETOROLAC 30 MG/ML VIAL (J1885) IV PRN (06:53)
[2019-03-26] MEDS: ADVAIR HFA 115/21MCG INHALER INH SCH ×2 (07:33→20:16)
[2019-03-26] MEDS: PANTOPRAZOLE 40MG TAB (PROTONIX) PO SCH (09:22)
[2019-03-26] MEDS: SENOKOT S TAB PO SCH ×2 (09:22→20:18)
[2019-03-26] MEDS: CLOPIDOGREL 75 MG TAB PO SCH (09:23)
[2019-03-26] MEDS: DOCUSATE SODIUM 100 MG CAP PO SCH ×2 (09:23→20:18)
[2019-03-26] MEDS: ASPIRIN 81 MG ENTERIC TAB PO SCH (09:23)
[2019-03-26] MEDS: CARVedilol 3.125 MG TAB PO SCH ×2 (09:23→20:17)
[2019-03-26] MEDS: OCUVITE 1 TAB PO SCH (09:23)
--- NOTE | 2019-03-26 10:28 | IPNPDOC ---
Date Seen The patient was seen on 03/26/19. Progress Note Vascular Surgery Dr Fitzpatrick HPI: 83year oldF with a past medical history significant for PAD. S/P LLE angiogram as per Dr Fitzpatrick 02/25/19. S/P Left external iliac artery endarterectomy, Left common femoral artery endarterectomy, Left profunda femoris artery endarterectomy , Left superficial femoral artery endarterectomy 03/22/[address] Fitzpatrick. Pt is OOB to chair. Does report pain with movement. Denies any fevers, chills, weakness, fatigue, Headache, Chest Pain, Shortness of breath, cough, palpitations, abdominal pain, N/V/D or changes in bowel or bladder habits. PMHx: PAD. Aortoiliac atherosclerotic arterial occlusive disease, bilateral lower extremity claudication. Patient underwent bilateral iliac artery [employer] and stenting carotid artery stenosis CAD/ Cardiac stents CVA Macular degeneration/legal blindness COPD HLD GERD PE: GEN: 83yoF, appears stated age. No acute distress. Alert and oriented x 3. HEENT: Normocephalic, atraumatic. Moist mucous membranes. CHEST: Regular rate and rhythm, +S1, +S2 LUNGS: Clear to auscultation bilaterally. ABD: Round, soft, non-tender, non-distended. EXT: No lower extremity edema appreciated. Lt foot warm, good cap refill. SKIN: dressing Lt groin dry, yolanda intact. NEURO: Alert and oriented x 3. No focal deficits appreciated. A&P: 1. PAD/ S/P Left external iliac artery endarterectomy, Left common femoral artery endarterectomy, Left profunda femoris artery endarterectomy , Left superficial femoral artery endarterectomy 03/22/[address] Fitzpatrick. Labs this am pending. ASA/Plavix/statin pain control bowel care wound care, dry dressing. PT 03/26/19 not safe. VS, I&O, 24H, Fishbone Vital Signs/I&O Vital Signs Date Time Temp Pulse Resp B/P (MAP) Pulse Ox O2 Delivery O2 Flow Rate FiO2 03/26/19 09:23 70 146/64 03/26/19 08:00 98.0 18 95 2.0 03/26/19 01:00 Nasal Cannula I&O- Last 24 Hours up to 6 AM 03/26/19 06:00 Intake Total 780 ml Output Total 200 ml Balance 580 ml Laboratory Data Microbiology Microbiology 03/24/19 Stool Occult Blood (ANGUS) - Final, Complete Attending Note Attending Note VASCULAR SURGICAL ATTENDING NOTE: Dr. Meghana Fitzpatrick M.D. The patient was seen on 03/26/19 at 09:33. ASSESSMENT: Patient is an 83-year-old female status post left external iliac artery, common femoral artery, superficial femoral artery and profunda femoris artery endarterectomy with patch angioplasty. Patient is doing well postoperatively and only complains of continued pain in her incision but does note that there is significant improvement in her previous symptoms in her left lower extremity. PLAN: Patient will continue to ambulate and work with physical therapy. Plan will be to wean her off of IV pain medications. Patient will be discharged home once cleared by physical therapy and incisional pain is better controlled. Patient may be a candidate for short-term rehabilitation. Leoncio Vera was the attending vascular surgeon for this patient encounter. The patient was seen, examined, interviewed and evaluated independently by Dr. Phoenix Fitzpatrick M.D. Dr. Phoenix Fitzpatrick M.D. was fully available during the consultation evaluation. All aspects of the patient interview, examination, medical decision making process, and medical care plan development were reviewed and approved by Dr. Phoenix Fitzpatrick M.D. Dr. Phoenix Fitzpatrick M.D. is aware and concurs with the plan as stated in the body of this note and will attest to such by his/her cosignature. Unique Gillespie Mar 26, 2019 10:28 Kp Fitzpatrick MD Mar 26, 2019 23:35
[2019-03-26 11:08] LABS: HEMATOCRIT 32.3 % (36.0-47.0); HEMOGLOBIN 9.9 g/dl (12.0-15.5); MEAN CORPUSCULAR HEMOGLOBIN 27.8 pg (27.0-33.0); MEAN CORPUSCULAR HGB CONC 30.7 g/dl (32.0-36.5); MEAN CORPUSCULAR VOLUME 90.7 fl (80.0-96.0); PLATELET COUNT, AUTOMATED 188 10^3/uL (150-450); RED BLOOD COUNT 3.56 10^6/uL (4.00-5.40); WHITE BLOOD COUNT 8.2 10^3/uL (4.0-10.0)
[2019-03-26 11:32] LABS: BLOOD UREA NITROGEN 14 MG/DL (7-18); CALCIUM LEVEL 8.9 MG/DL (8.8-10.2); CARBON DIOXIDE LEVEL 33 MEQ/L (21-32); CHLORIDE LEVEL 106 MEQ/L (98-107); CREATININE FOR GFR 0.78 MG/DL (0.55-1.30); GLOMERULAR FILTRATION RATE > 60.0 (>32); GLUCOSE, FASTING 164 MG/DL (70-100); POTASSIUM SERUM 4.1 MEQ/L (3.5-5.1); SODIUM LEVEL 139 MEQ/L (136-145)
[2019-03-26] MEDS ORDERED: MORPHINE 4 MG/ML 1ML VIAL/SYRINGE (J2270) IV PRN (13:30)
--- NOTE | 2019-03-26 13:40 | IPNPDOC ---
Subjective Date Seen The patient was seen on 03/26/19. Subjective Chief Complaint/HPI No new complaints today. Comp;lains of some pain in the groin when she tries to stand up or sit down . No pain while walking. No fever or chills, no chest pain or sob Objective Physical Examination General Exam: Positive: Alert, Cooperative, No Acute Distress Eye Exam: Positive: PERRLA, Conjunctiva & lids normal, EOMI; Negative: Sclera icteric ENT Exam: Positive: Atraumatic, Mucous membr. moist/pink, Pharynx Normal Neck Exam: Positive: Supple, Other (left carotid bruit); Negative: JVD, thyromegaly Chest Exam: Positive: Diminished, Other (bilateral basal crackles); Negative: Rhonchi, Wheezing Heart Exam: Positive: Rate Normal, Regular Rhythm, Normal S1, Normal S2, Murmurs (systolic murmur present at the base of the heart); Negative: Rubs Telemetry: Positive: No significant arrhythmia Abdomen Exam: Positive: Normal bowel sounds, Soft, Hernia; Negative: Tenderness, Hepatospenomegaly Extremity Exam: Positive: Edema (trace); Negative: Clubbing, Cyanosis Assessment /Plan Assessment 83 year old female with PMH of PAD including Aortoiliac atherosclerotic arterial occlusive disease, Femoral-popliteal atherosclerotic arterial occlusive disease, h/o bilateral lower leg stents, Carotid artery stenosis, COPD, coronary artery disease s/p stents, gastroesophageal reflux disease and hyperlipidemia, Possible sleep apnea on nocturnal oxygen only , never had a sleep study, History of tobacco use was admitted for management of left leg claudication and underwent elective Left external iliac artery endarterectomy, Left common femoral artery endarterectomy, Left profunda femoris artery endarterectomy. Left superficial femoral artery endarterectomy, Patch angioplasty with Xenosure biologic patch of the left external iliac artery, common femoral artery, profunda femoris artery and superficial femoral artery arteriotomy. Hospitalist has been consulted for the management of her medical commorbidities. PAD including: Aortoiliac atherosclerotic arterial occlusive disease. Femoral- popliteal atherosclerotic arterial occlusive disease. s/p surgery on the left on 03/22/19 pain control and DVT prophylaxis as per surgeon patient does not want the norco it made her feel very bad so put her only on tylenol. on ASA and plavix. tylenol prn Anemia this is new from December. her HH has dropped from over 11 to 8.0 prior to surgery. received 1 unit prbc. stool for occult blood positive x 1 Vit B12 and folate levels Ok. iron very low will give a dose of venofer. No overt bleeding from anywhere. Had EGD and colonoscopy last year and follow up EGD in October 2018. COPD continue Advair albuterol prn Coronary artery disease s/p AMI x 2 continue statin, plavix, asa, betablocker Gastroesophageal reflux disease continue PPI hyperlipidemia continue statin Possible sleep apnea on nocturnal oxygen only , never had a sleep study. continue oxygen supplementation at night. Systolic CHF with EF of 50% Severe pulmonary Hypertension RSVP of 74 restart lasix Hypertension BP well controlled continue coreg restart lasix and lisinopril Plan/VTE VTE Prophylaxis Ordered?: Yes VS, I&O, 24H, Fishbone Vital Signs/I&O Vital Signs Date Time Temp Pulse Resp B/P (MAP) Pulse Ox O2 Delivery O2 Flow Rate FiO2 03/26/19 12:00 97.5 72 20 139/70 (93) 97 2.0 03/26/19 11:00 Nasal Cannula I&O- Last 24 Hours up to 6 AM 03/26/19 06:00 Intake Total 780 ml Output Total 200 ml Balance 580 ml Laboratory Data 24H LABS Laboratory Tests 2 03/26/19 10:54: Nucleated Red Blood Cells % (auto) 0.0, Anion Gap 0L, Glomerular Filtration Rate > 60.0, Blood Urea Nitrogen 14, Creatinine 0.78, Sodium Level 139, Potassium Level 4.1, Chloride Level 106, Carbon Dioxide Level 33H, Calcium Level 8.9 CBC/BMP Laboratory Tests 03/26/19 10:54 Red Blood Count 3.56 L, Mean Corpuscular Volume 90.7, Mean Corpuscular Hemoglobin 27.8, Mean Corpuscular Hemoglobin Concent 30.7 L, Red Cell Distribution Width 13.4, Calcium Level 8.9 Microbiology Microbiology 03/24/19 Stool Occult Blood (ANGUS) - Final, Complete BRITTANI CHOI MD Mar 26, 2019 13:40
[2019-03-26] MEDS ORDERED: FUROSEMIDE 20 MG/2 ML VIAL (J1940) IV ONE (14:00)
[2019-03-26] MEDS: ACETAMINOPHEN 500 MG TAB PO PRN ×2 (14:19→20:18)
[2019-03-26] MEDS: LISINOPRIL *2.5 MG* TAB PO SCH (20:17)
[2019-03-26] MEDS: VITAMIN D 1,000 INTERNATIONAL UNITS TABLET PO SCH (20:17)
[2019-03-26] MEDS: ATORVASTATIN 20 MG TAB PO SCH (20:18)
[2019-03-27] VITALS (13 sets, daily range): BP systolic 139–152; BP diastolic 57–73; O2SAT 86–97
[2019-03-27 05:39] LABS: HEMATOCRIT 28.5 % (36.0-47.0); HEMOGLOBIN 8.9 g/dl (12.0-15.5); MEAN CORPUSCULAR HEMOGLOBIN 27.9 pg (27.0-33.0); MEAN CORPUSCULAR HGB CONC 31.2 g/dl (32.0-36.5); MEAN CORPUSCULAR VOLUME 89.3 fl (80.0-96.0); PLATELET COUNT, AUTOMATED 181 10^3/uL (150-450); RED BLOOD COUNT 3.19 10^6/uL (4.00-5.40); WHITE BLOOD COUNT 6.6 10^3/uL (4.0-10.0)
[2019-03-27 05:59] LABS: BLOOD UREA NITROGEN 15 MG/DL (7-18); CALCIUM LEVEL 8.2 MG/DL (8.8-10.2); CARBON DIOXIDE LEVEL 32 MEQ/L (21-32); CHLORIDE LEVEL 107 MEQ/L (98-107); GLOMERULAR FILTRATION RATE > 60.0 (>32); GLUCOSE, FASTING 92 MG/DL (70-100); POTASSIUM SERUM 3.9 MEQ/L (3.5-5.1); SODIUM LEVEL 145 MEQ/L (136-145)
[2019-03-27] MEDS: ADVAIR HFA 115/21MCG INHALER INH SCH ×2 (07:15→21:13)
[2019-03-27] MEDS: ASPIRIN 81 MG ENTERIC TAB PO SCH (07:55)
[2019-03-27] MEDS: OCUVITE 1 TAB PO SCH (07:56)
[2019-03-27] MEDS: ACETAMINOPHEN 500 MG TAB PO PRN (07:57)
[2019-03-27] MEDS: SENOKOT S TAB PO SCH ×2 (07:58→21:22)
[2019-03-27] MEDS: CARVedilol 3.125 MG TAB PO SCH ×2 (07:58→21:23)
[2019-03-27] MEDS: FUROSEMIDE 20 MG TAB PO SCH (07:58)
[2019-03-27] MEDS: PANTOPRAZOLE 40MG TAB (PROTONIX) PO SCH (07:59)
[2019-03-27] MEDS: DOCUSATE SODIUM 100 MG CAP PO SCH ×2 (08:00→21:22)
[2019-03-27] MEDS: CLOPIDOGREL 75 MG TAB PO SCH (09:00)
--- NOTE | 2019-03-27 12:39 | IPNPDOC ---
Date Seen The patient was seen on 03/27/19. Progress Note Vascular Surgery Dr Fitzpatrick HPI: 83year oldF with a past medical history significant for PAD. S/P LLE angiogram as per Dr Fitzpatrick 02/25/19. S/P Left external iliac artery endarterectomy, Left common femoral artery endarterectomy, Left profunda femoris artery endarterectomy , Left superficial femoral artery endarterectomy 03/22/[address] Fitzpatrick. Reports persistent incision area pain Lt groin, denies LE pain or foot pain. Is OOB to chair. Denies any fevers, chills, weakness, fatigue, Headache, Chest Pain, Shortness of breath, cough, palpitations, abdominal pain, N/V/D or changes in bowel or bladder habits. PMHx: PAD. Aortoiliac atherosclerotic arterial occlusive disease, bilateral lower extremity claudication. 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 No acute distress. Alert and oriented x 3. HEENT: Normocephalic, atraumatic. Moist mucous membranes. CHEST: Regular rate and rhythm, +S1, +S2 LUNGS: Clear to auscultation bilaterally. ABD: Round, soft, non-tender, non-distended. EXT: No lower extremity edema appreciated. Lt foot warm, good cap refill. DP/PT pulses monophasic with doppler. SKIN: dressing Lt groin dry, yolanda intact. NEURO: Alert and oriented x 3. No focal deficits appreciated. A&P: 1. PAD/ S/P Left external iliac artery endarterectomy, Left common femoral artery endarterectomy, Left profunda femoris artery endarterectomy , Left superficial femoral artery endarterectomy 03/22/[address] Fitzpatrick. ASA/Plavix/statin pain control bowel care wound care, dry dressing. PT 03/26/19 not safe. Request ARU screen. VS, I&O, 24H, Fishbone Vital Signs/I&O Vital Signs Date Time Temp Pulse Resp B/P (MAP) Pulse Ox O2 Delivery O2 Flow Rate FiO2 03/27/19 07:58 92 139/57 03/27/19 07:18 98.5 20 98 2.0 03/26/19 14:00 Room Air I&O- Last 24 Hours up to 6 AM 03/27/19 06:00 Intake Total 1260 ml Output Total 400 ml Balance 860 ml Laboratory Data 24H LABS Laboratory Tests 2 03/27/19 05:27: Nucleated Red Blood Cells % (auto) 0.0, Anion Gap 6L, Glomerular Filtration Rate > 60.0, Blood Urea Nitrogen 15, Creatinine 0.80, Sodium Level 145, Potassium Level 3.9, Chloride Level 107, Carbon Dioxide Level 32, Calcium Level 8.2L CBC/BMP Laboratory Tests 03/27/19 05:27 Red Blood Count 3.19 L, Mean Corpuscular Volume 89.3, Mean Corpuscular Hemoglobin 27.9, Mean Corpuscular Hemoglobin Concent 31.2 L, Red Cell Distribution Width 13.5, Calcium Level 8.2 L Microbiology Microbiology 03/24/19 Stool Occult Blood (ANGUS) - Final, Complete Unique Gillespie Mar 27, 2019 12:39
[2019-03-27] MEDS: traMADol 50 MG TAB PO PRN ×2 (15:18→21:24)
--- NOTE | 2019-03-27 20:43 | IPNPDOC ---
Subjective Date Seen The patient was seen on 03/27/19. Subjective Chief Complaint/HPI 83 year old female with PMH of PAD including Aortoiliac atherosclerotic arterial occlusive disease, Femoral-popliteal atherosclerotic arterial occlusive disease, h/o bilateral lower leg stents, Carotid artery stenosis, COPD, coronary artery disease s/p stents, gastroesophageal reflux disease and hyperlipidemia, Possible sleep apnea on nocturnal oxygen only , never had a sleep study, History of tobacco use was admitted for management of left leg claudication and underwent elective Left external iliac artery endarterectomy, Left common femoral artery endarterectomy, Left profunda femoris artery endarterectomy. Left superficial femoral artery endarterectomy, Patch angioplasty with Xenosure biologic patch of the left external iliac artery, common femoral artery, profunda femoris artery and superficial femoral artery arteriotomy. Hospitalist has been consulted for the management of her medical commorbidities. Patient asking to be on Ultran,does not like how she feels with morphine. General: Reports: Normal Appetite; Denies: Chills, Night Sweats, Fatigue, Malaise Constitutional: Denies: Chills, Fever, Night Sweats Eyes: Denies: Pain, Vision change Pulmonary: Denies: Dyspnea, Cough Cardiovascular: Denies: Chest Pain, Palpitations, Orthopnea, Paroxysmal Noc. Dyspnea, Lt Headedness Gastrointestinal: Denies: Nausea, Vomiting, Abdominal Pain, Diarrhea, Constipation Musculoskeletal: Reports: Other Symptoms (leg pain) Neurological: Denies: Weakness, Numbness, Change in speech, Confusion Objective Physical Examination General Exam: Positive: Alert, Cooperative, No Acute Distress Eye Exam: Positive: PERRLA, Conjunctiva & lids normal, EOMI; Negative: Sclera icteric ENT Exam: Positive: Atraumatic, Mucous membr. moist/pink, Pharynx Normal Neck Exam: Positive: Supple, Other (left carotid bruit); Negative: JVD, thyromegaly Chest Exam: Positive: Diminished, Other (bilateral basal crackles); Negative: Rhonchi, Wheezing Heart Exam: Positive: Rate Normal, Regular Rhythm, Normal S1, Normal S2, Murmurs (systolic murmur present at the base of the heart); Negative: Rubs Telemetry: Positive: No significant arrhythmia Abdomen Exam: Positive: Normal bowel sounds, Soft, Hernia; Negative: Tenderness, Hepatospenomegaly Extremity Exam: Positive: Edema (trace), Other (legs pain to palpation); Negative: Clubbing, Cyanosis Neuro Exam: Positive: Normal Gait, Normal Speech, Cranial Nerves 3-12 NL, Reflexes 2+ Psych Exam: Positive: Mental status NL, Mood NL, Oriented x 3 Assessment /Plan Problems (1) Claudication in peripheral vascular disease Problem Text: PAD including: Aortoiliac atherosclerotic arterial occlusive disease. Femoral-popliteal atherosclerotic arterial occlusive disease. s/p surgery on the left on 03/22/19 pain control and DVT prophylaxis as per surgeon patient wants Ultram instead of norco or morphine on ASA and plavix. (2) CAD S/P percutaneous coronary angioplasty Status: Chronic Problem Text: Continue statin, plavix, asa, BB (3) COPD (chronic obstructive pulmonary disease) Problem Text: On advair and conchis-neb prn.Stable (4) Anemia Problem Text: received 1 unit prbc. stool for occult blood positive x 1 Vit B12 and folate levels Ok. iron very low,was given venofer. No overt bleeding from anywhere. Had EGD and colonoscopy last year and follow up EGD in October 2018. Hgb 8.9 today,if further drop,will consult GI (5) Pulmonary hypertension Status: Chronic Problem Text: Continue routine meds (6) Systolic CHF Status: Chronic Problem Text: Stable,on lasix (7) Hyperlipidemia Status: Chronic Problem Text: On statin Plan/VTE VTE Prophylaxis Ordered?: Yes Disposition TBD ,when cleared by vascular;in the process for discharge for rehab VS, I&O, 24H, Fishbone Vital Signs/I&O Vital Signs Date Time Temp Pulse Resp B/P (MAP) Pulse Ox O2 Delivery O2 Flow Rate FiO2 03/27/19 18:00 88 Room Air 03/27/19 15:48 18 03/27/19 07:58 92 139/57 03/27/19 07:18 98.5 2.0 I&O- Last 24 Hours up to 6 AM 03/27/19 05:59 Intake Total 900 ml Output Total 400 ml Balance 500 ml Laboratory Data 24H LABS Laboratory Tests 2 03/27/19 05:27: Nucleated Red Blood Cells % (auto) 0.0, Anion Gap 6L, Glomerular Filtration Rate > 60.0, Blood Urea Nitrogen 15, Creatinine 0.80, Sodium Level 145, Potassium Level 3.9, Chloride Level 107, Carbon Dioxide Level 32, Calcium Level 8.2L CBC/BMP Laboratory Tests 03/27/19 05:27 Red Blood Count 3.19 L, Mean Corpuscular Volume 89.3, Mean Corpuscular Hemoglobin 27.9, Mean Corpuscular Hemoglobin Concent 31.2 L, Red Cell Distri bution Width 13.5, Calcium Level 8.2 L Microbiology Microbiology 03/24/19 Stool Occult Blood (ANGUS) - Final, Complete NESSA ALEXANDRE MD Mar 27, 2019 20:43
[2019-03-27] MEDS: VITAMIN D 1,000 INTERNATIONAL UNITS TABLET PO SCH (21:22)
[2019-03-27] MEDS: ATORVASTATIN 20 MG TAB PO SCH (21:22)
[2019-03-27] MEDS: LISINOPRIL *2.5 MG* TAB PO SCH (21:22)
[2019-03-28 06:00] VITALS: BP 102/63
[2019-03-28 06:57] LABS: HEMATOCRIT 30.4 % (36.0-47.0); HEMOGLOBIN 9.6 g/dl (12.0-15.5); MEAN CORPUSCULAR HEMOGLOBIN 28.4 pg (27.0-33.0); MEAN CORPUSCULAR HGB CONC 31.6 g/dl (32.0-36.5); MEAN CORPUSCULAR VOLUME 89.9 fl (80.0-96.0); PLATELET COUNT, AUTOMATED 210 10^3/uL (150-450); RED BLOOD COUNT 3.38 10^6/uL (4.00-5.40); WHITE BLOOD COUNT 6.8 10^3/uL (4.0-10.0)
[2019-03-28 07:20] LABS: BLOOD UREA NITROGEN 10 MG/DL (7-18); CALCIUM LEVEL 8.6 MG/DL (8.8-10.2); CARBON DIOXIDE LEVEL 32 MEQ/L (21-32); CHLORIDE LEVEL 107 MEQ/L (98-107); CREATININE FOR GFR 0.72 MG/DL (0.55-1.30); GLOMERULAR FILTRATION RATE > 60.0 (>32); GLUCOSE, FASTING 108 MG/DL (70-100); POTASSIUM SERUM 3.7 MEQ/L (3.5-5.1); SODIUM LEVEL 143 MEQ/L (136-145)
[2019-03-28] MEDS: ADVAIR HFA 115/21MCG INHALER INH SCH (07:21)
[2019-03-28] MEDS: ASPIRIN 81 MG ENTERIC TAB PO SCH (09:25)
[2019-03-28] MEDS: SENOKOT S TAB PO SCH (09:25)
[2019-03-28] MEDS: PANTOPRAZOLE 40MG TAB (PROTONIX) PO SCH (09:25)
[2019-03-28] MEDS: OCUVITE 1 TAB PO SCH (09:25)
[2019-03-28] MEDS: CLOPIDOGREL 75 MG TAB PO SCH (09:26)
[2019-03-28] MEDS: FUROSEMIDE 20 MG TAB PO SCH (09:28)
[2019-03-28] MEDS: traMADol 50 MG TAB PO PRN (09:28)
[2019-03-28] MEDS: DOCUSATE SODIUM 100 MG CAP PO SCH (09:28)
[2019-03-28 09:29] VITALS: BP 102/63
[2019-03-28] MEDS: CARVedilol 3.125 MG TAB PO SCH (09:29)
[2019-03-28] MEDS: ONDANSETRON 4MG/2ML VIAL (J2405) IV PRN (10:23)
[2019-03-28] MEDS ORDERED: TRAM50TA2 PO (13:11)
[2019-03-28] MEDS ORDERED: ONDA4TAB5 PO (13:11)
--- NOTE | 2019-03-28 13:32 | IPNPDOC ---
Subjective Date Seen The patient was seen on 03/28/19. Subjective Chief Complaint/HPI 83 year old female with PMH of PAD including Aortoiliac atherosclerotic arterial occlusive disease, Femoral-popliteal atherosclerotic arterial occlusive disease, h/o bilateral lower leg stents, Carotid artery stenosis, COPD, coronary artery disease s/p stents, gastroesophageal reflux disease and hyperlipidemia, Possible sleep apnea on nocturnal oxygen only , never had a sleep study, History of tobacco use was admitted for management of left leg claudication and underwent elective Left external iliac artery endarterectomy, Left common femoral artery endarterectomy, Left profunda femoris artery endarterectomy. Left superficial femoral artery endarterectomy, Patch angioplasty with Xenosure biologic patch of the left external iliac artery, common femoral artery, profunda femoris artery and superficial femoral artery arteriotomy. Hospitalist has been consulted for the management of her medical commorbidities. Patient asking to be on Ultran,does not like how she feels with morphine. Feeling much better today,will be d/martine to rehab Objective Physical Examination General Exam: Positive: Alert, Cooperative, No Acute Distress Eye Exam: Positive: PERRLA, Conjunctiva & lids normal, EOMI; Negative: Sclera icteric ENT Exam: Positive: Atraumatic, Mucous membr. moist/pink, Pharynx Normal Neck Exam: Positive: Supple, Other (left carotid bruit); Negative: JVD, thyromegaly Chest Exam: Positive: Diminished, Other (bilateral basal crackles); Negative: Rhonchi, Wheezing Heart Exam: Positive: Rate Normal, Regular Rhythm, Normal S1, Normal S2, Murmurs (systolic murmur present at the base of the heart); Negative: Rubs Telemetry: Positive: No significant arrhythmia Abdomen Exam: Positive: Normal bowel sounds, Soft, Hernia; Negative: Tenderness, Hepatospenomegaly Extremity Exam: Positive: Other (legs pain to palpation); Negative: Clubbing, Cyanosis Neuro Exam: Positive: Normal Gait, Normal Speech, Cranial Nerves 3-12 NL, Reflexes 2+ Psych Exam: Positive: Mental status NL, Mood NL, Oriented x 3 Assessment /Plan Problems (1) Claudication in peripheral vascular disease Problem Text: PAD including: Aortoiliac atherosclerotic arterial occlusive disease. Femoral-popliteal atherosclerotic arterial occlusive disease. s/p surgery on the left on 03/22/19 pain control and DVT prophylaxis as per surgeon patient wants Ultram instead of norco or morphine on ASA and plavix. Discharge to Rehab today and patient is medically stable (2) CAD S/P percutaneous coronary angioplasty Status: Chronic Problem Text: Continue statin, plavix, asa, BB (3) COPD (chronic obstructive pulmonary disease) Problem Text: On advair and conchis-neb prn.Stable (4) Anemia Problem Text: received 1 unit prbc. stool for occult blood positive x 1 Vit B12 and folate levels Ok. iron very low,was given venofer. No overt bleeding from anywhere. Had EGD and colonoscopy last year and follow up EGD in October 2018. Stable (5) Pulmonary hypertension Status: Chronic Problem Text: Continue routine meds (6) Systolic CHF Status: Chronic Problem Text: Stable,on lasix (7) Hyperlipidemia Status: Chronic Problem Text: On statin Plan/VTE VTE Prophylaxis Ordered?: Yes Disposition Discharged to rehab as per surgery VS, I&O, 24H, Fishbone Vital Signs/I&O Vital Signs Date Time Temp Pulse Resp B/P (MAP) Pulse Ox O2 Delivery O2 Flow Rate FiO2 03/28/19 09:58 18 03/28/19 09:29 78 102/63 03/28/19 06:00 97.9 98 03/27/19 18:00 Room Air 03/27/19 07:18 2.0 I&O- Last 24 Hours up to 6 AM 03/28/19 06:00 Intake Total 300 ml Balance 300 ml Laboratory Data 24H LABS Laboratory Tests 2 03/27/19 20:13: Bedside Glucose (Misc Panel) 135H 03/28/19 06:23: Nucleated Red Blood Cells % (auto) 0.0, Anion Gap 4L, Glomerular Filtration Rate > 60.0, Blood Urea Nitrogen 10, Creatinine 0.72, Sodium Level 143, Potassium Level 3.7, Chloride Level 107, Carbon Dioxide Level 32, Calcium Level 8.6L 03/28/19 11:37: Bedside Glucose (Misc Panel) 114H CBC/BMP Laboratory Tests 03/28/19 06:23 Red Blood Count 3.38 L, Mean Corpuscular Volume 89.9, Mean Corpuscular Hemoglobin 28.4, Mean Corpuscular Hemoglobin Concent 31.6 L, Red Cell Distribution Width 13.6, Calcium Level 8.6 L Microbiology Microbiology 03/24/19 Stool Occult Blood (ANGUS) - Final, Complete NESSA ALEXANDRE MD Mar 28, 2019 13:32
[2019-03-28 14:00] VITALS: BP 125/45
== END 2019-03-28 15:44 | disposition home or self-care (01) | DRG 271 ==
LOC: M OR 06:59 → M PCU 11:46 → M MS5PR 03-26 14:26
PROVIDERS: ADMIT Surgery Vascular Surgery; ATTEND Surgery Vascular Surgery
PROC: 04UL0KZ Supplement Left Femoral Artery with Nonautologous Tissue Substitute, Open Approach (ICD-10-PCS; 2019-03-22)
PROC: 04UK0KZ Supplement Right Femoral Artery with Nonautologous Tissue Substitute, Open Approach (ICD-10-PCS; 2019-03-22)
PROC: 04CJ0ZZ Extirpation of Matter from Left External Iliac Artery, Open Approach (ICD-10-PCS; principal; 2019-03-22 08:30)
PROC: 04CL0ZZ Extirpation of Matter from Left Femoral Artery, Open Approach (ICD-10-PCS; 2019-03-22 08:30)
DX: I70.212 Atherosclerosis of native arteries of extremities with intermittent claudication, left leg (principal); I50.32 Chronic diastolic (congestive) heart failure; H35.30 Unspecified macular degeneration; H54.8 Legal blindness, as defined in USA; J44.9 Chronic obstructive pulmonary disease, unspecified; E78.2 Mixed hyperlipidemia; I11.0 Hypertensive heart disease with heart failure; K21.9 Gastro-esophageal reflux disease without esophagitis; I70.0 Atherosclerosis of aorta; I27.20 Pulmonary hypertension, unspecified; I65.23 Occlusion and stenosis of bilateral carotid arteries; I25.2 Old myocardial infarction; I25.10 Atherosclerotic heart disease of native coronary artery without angina pectoris; D64.9 Anemia, unspecified; I35.8 Other nonrheumatic aortic valve disorders; G47.30 Sleep apnea, unspecified; Z87.891 Personal history of nicotine dependence; Z95.5 Presence of coronary angioplasty implant and graft; Z79.82 Long term (current) use of aspirin; Z79.899 Other long term (current) drug therapy; Z88.0 Allergy status to penicillin; Z88.1 Allergy status to other antibiotic agents; Z98.41 Cataract extraction status, right eye; Z98.42 Cataract extraction status, left eye; Z95.820 Peripheral vascular angioplasty status with implants and grafts

== ENCOUNTER → 2019-04-17 | Outpatient (REF) | payer MEDICARE ==
[~2019-04-17] MED LIST changes: -LIDOCAINE 1% MDV 20ML VIAL SQ PRN; -LR 1,000 ML IV ONE; +NON-325T5 PO; +ONDA4TAB5 PO; +TRAM50TA2 PO
[2019-04-17 17:14] LABS: ALBUMIN 3.8 GM/DL (3.2-5.2); ALT/SGPT 15 U/L (12-78); BILIRUBIN,TOTAL 0.5 MG/DL (0.2-1.0); BLOOD UREA NITROGEN 16 MG/DL (7-18); CALCIUM LEVEL 9.5 MG/DL (8.8-10.2); CARBON DIOXIDE LEVEL 28 MEQ/L (21-32); CHLORIDE LEVEL 108 MEQ/L (98-107); CREATININE FOR GFR 0.84 MG/DL (0.55-1.30); FERRITIN 226 NG/ML (8-252); GLOMERULAR FILTRATION RATE > 60.0 (>32); GLUCOSE, FASTING 101 MG/DL (70-100); IRON (FE) 92 UG/DL (50-170); LDH LACTATE DEHYDROGENASE 171 U/L (84-246); PERCENT SATURATION 29.8 % (13.2-45.0); POTASSIUM SERUM 4.2 MEQ/L (3.5-5.1); SODIUM LEVEL 145 MEQ/L (136-145); TOTAL IRON BINDING CAPACITY 309 UG/DL (250-450); TOTAL PROTEIN 6.8 GM/DL (6.4-8.2)
[2019-04-17 17:22] LABS: BASO # 0.1 10^3/uL (0.0-0.2); BASO % 0.9 % (0.0-1.0); EOS # 0.3 10^3/uL (0.0-0.5); EOS % 3.5 % (0.0-3.0); HEMATOCRIT 38.5 % (36.0-47.0); HEMOGLOBIN 11.9 g/dl (12.0-15.5); LYMPH # 1.6 10^3/uL (1.5-5.0); MEAN CORPUSCULAR HEMOGLOBIN 29.9 pg (27.0-33.0); MEAN CORPUSCULAR HGB CONC 30.9 g/dl (32.0-36.5); MEAN CORPUSCULAR VOLUME 96.7 fl (80.0-96.0); MONO # 0.8 10^3/uL (0.0-0.8); MONO % 9.9 % (0.0-5.0); NEUTROPHILS % 64.4 % (36.0-66.0); PLATELET COUNT, AUTOMATED 179 10^3/uL (150-450); RED BLOOD COUNT 3.98 10^6/uL (4.00-5.40); WHITE BLOOD COUNT 7.8 10^3/uL (4.0-10.0)
== END ==
LOC: M SFHCCAPE 09:54
PROVIDERS: ATTEND Physician Assistant
DX: D50.9 Iron deficiency anemia, unspecified (principal)

== ENCOUNTER → 2019-04-17 | Outpatient (CLI) | payer MEDICARE ==
--- NOTE | 2019-04-17 14:57 | REP ---
LEFT LOWER EXTREMITY DUPLEX DOPPLER ARTERIAL ULTRASOUND: Real-time ultrasound evaluation and duplex Doppler interrogation of the left lower extremity arterial system is performed. There is no hemodynamically significant stenosis is seen of the left lower extremity arterial system. Mild phasic waveforms are seen diffusely. There is no elevated peak systolic velocity. PRADIP 0.56. Patient was unable to tolerate PRADIP for the posterior tibial artery due to pain. Left Peak Systolic velocity Common femoral artery 84.8 cm/s Profunda 160.5 cm/s Proximal SFA 58.1 cm/s Mid SFA 54.9 cm/s Distal SFA 41.9 cm/s Popliteal 31.5 cm/s Proximal AIYANA 12.6 cm/s Tibial peroneal trunk 19.2 cm/s Proximal G[employer]LE[employer] SUPERVISOR 25.9 cm/s Distal GARB[employer] COLLECTION SUPERVISOR 16.9 cm/s Distal AIYANA 21.7 cm/s IMPRESSION: No duplex Doppler sonographic evidence of hemodynamically significant stenosis of left lower extremity arterial system. Electronically Signed by Tariq Zheng MD 04/18/2019 10:44 A
== END ==
LOC: M RAD 12:55
PROVIDERS: ATTEND Surgery Vascular Surgery
DX: I70.212 Atherosclerosis of native arteries of extremities with intermittent claudication, left leg (principal); D50.9 Iron deficiency anemia, unspecified

== ENCOUNTER 2019-06-28 10:27 | Emergency (ER) | payer MEDICARE ==
[~2019-06-28] VITALS: Ht 162.6 cm; Wt 59.1 kg
[2019-06-28 12:09] LABS: BASO # 0.1 10^3/uL (0.0-0.2); BASO % 0.6 % (0.0-1.0); EOS # 0.3 10^3/uL (0.0-0.5); EOS % 3.2 % (0.0-3.0); HEMATOCRIT 32.7 % (36.0-47.0); LYMPH # 2.2 10^3/uL (1.5-5.0); LYMPH % 20.5 % (24.0-44.0); MEAN CORPUSCULAR HEMOGLOBIN 28.9 pg (27.0-33.0); MEAN CORPUSCULAR HGB CONC 30.6 g/dl (32.0-36.5); MEAN CORPUSCULAR VOLUME 94.5 fl (80.0-96.0); MONO % 9.4 % (0.0-5.0); NEUTROPHILS # 7.1 10^3/uL (1.5-8.5); PLATELET COUNT, AUTOMATED 231 10^3/uL (150-450); RED BLOOD COUNT 3.46 10^6/uL (4.00-5.40); WHITE BLOOD COUNT 10.7 10^3/uL (4.0-10.0)
[2019-06-28 12:22] LABS: BLOOD UREA NITROGEN 19 MG/DL (7-18); C REACTIVE PROTEIN QUANTITATIV < 0.30 MG/DL (0.00-0.30); CALCIUM LEVEL 9.3 MG/DL (8.8-10.2); CARBON DIOXIDE LEVEL 29 MEQ/L (21-32); CHLORIDE LEVEL 106 MEQ/L (98-107); CREATININE FOR GFR 0.81 MG/DL (0.55-1.30); GLOMERULAR FILTRATION RATE > 60.0 (>32); GLUCOSE, FASTING 112 MG/DL (70-100); SODIUM LEVEL 141 MEQ/L (136-145)
[2019-06-28 12:27] LABS: INR 1.16; PROTHROMBIN TIME 14.6 SECONDS (11.8-14.0)
[2019-06-28 12:28] LABS: PARTIAL THROMBOPLASTIN TIME 31.3 SECONDS (25.0-38.4)
[2019-06-28 12:30] LABS: D-DIMER QUANT 334.49 ng/ml (<500)
[2019-06-28 13:13] LABS: ERYTHROCYTE SEDIMENTATION RATE 44 mm/hr (0-30)
--- NOTE | 2019-06-28 14:33 | REP ---
Left lower extremity Duplex Doppler venous ultrasound: Real time compression and duplex Doppler interrogation of the left lower extremity deep venous system is performed. The left common femoral, superficial femoral and popliteal veins are fully compressible with transducer pressure and demonstrate normal spontaneous and phasic flow, without evidence of deep venous thrombosis. Impression: No evidence of deep venous thrombosis of the left lower extremity femoral popliteal venous system. Electronically Signed by Tariq Zheng MD 06/28/2019 02:24 P
--- NOTE | 2019-06-28 15:23 | REP ---
ULTRASOUND LEFT LOWER LEG: Real-time sonographic evaluation of the left lower leg performed posterior to the knee and in the region of the stout where there is pain. No nodule is seen sonographically and there is no evidence of fluid collection. IMPRESSION: No mass or fluid collection at the site of pain posterior to the left knee and in the region of the left anterior lower leg. Electronically Signed by Tariq Zheng MD 07/01/2019 09:36 A
[2019-06-28 15:25] VITALS: BP 122/63
== END 2019-06-28 15:42 | disposition home or self-care (01) ==
LOC: M ED 10:27
DX: M25.552 Pain in left hip (principal); M25.562 Pain in left knee; M79.652 Pain in left thigh; E78.5 Hyperlipidemia, unspecified; I10 Essential (primary) hypertension; J44.9 Chronic obstructive pulmonary disease, unspecified; Z79.82 Long term (current) use of aspirin; Z79.899 Other long term (current) drug therapy; Z86.79 Personal history of other diseases of the circulatory system; Z87.891 Personal history of nicotine dependence; Z88.0 Allergy status to penicillin; Z88.8 Allergy status to other drugs, medicaments and biological substances

== ENCOUNTER → 2019-07-08 | Outpatient (CLI) | payer MEDICARE ==
[~2019-07-08] MED LIST changes: -SIMV40TA2 PO; +SIMV40TA20 PO
--- NOTE | 2019-07-08 12:43 | REP ---
LUMBOSACRAL SPINE: Five views of the lumbosacral spine are performed. There is no compression fracture or malalignment. There is normal lumbar lordosis. There is mild diffuse spurring. There is mild disc space narrowing and subchondral sclerosis at all levels with vacuum phenomenon noted at L5-S1. There is sclerosis and spurring at the facets at L4-5 and L5-S1. Posterior elements are intact. There are stents in the common iliac arteries bilaterally as well as the right external iliac artery. IMPRESSION: Mild diffuse degenerative changes without fracture or dislocation. Electronically Signed by Tariq Zheng MD 07/08/2019 01:05 P
== END ==
LOC: M WUC 12:01
PROVIDERS: ATTEND Physician Assistant
DX: M51.37 Other intervertebral disc degeneration, lumbosacral region (principal); M25.78 Osteophyte, vertebrae; M54.42 Lumbago with sciatica, left side

== ENCOUNTER → 2019-08-05 | Outpatient (CLI) | payer MEDICARE ==
[~2019-08-05] MED LIST changes: +CVS50CAP PO; +DOCU100C16 PO; +GABA-1171 PO; +LISI-1046 PO
--- NOTE | 2019-08-05 15:57 | REP ---
Clinical: Chest pain and fatigue . Comparison: 04/06/2017. Technique: PA and lateral. Findings: The mediastinum and cardiac silhouette are normal. The lung merlos demonstrate chronic emphysematous changes without acute consolidation, effusion, or pneumothorax. The skeletal structures are intact and normal. Impression: 1. No acute cardiopulmonary process. Electronically Signed by Ugo Alvarez MD 08/05/2019 03:48 P
[2019-08-05 20:27] LABS: BASO # 0.1 10^3/uL (0.0-0.2); BASO % 0.4 % (0.0-1.0); EOS # 0.1 10^3/uL (0.0-0.5); EOS % 0.4 % (0.0-3.0); HEMATOCRIT 32.1 % (36.0-47.0); HEMOGLOBIN 9.6 g/dl (12.0-15.5); LYMPH # 2.4 10^3/uL (1.5-5.0); LYMPH % 12.2 % (24.0-44.0); MEAN CORPUSCULAR HEMOGLOBIN 25.9 pg (27.0-33.0); MEAN CORPUSCULAR HGB CONC 29.9 g/dl (32.0-36.5); MEAN CORPUSCULAR VOLUME 86.8 fl (80.0-96.0); MONO # 1.5 10^3/uL (0.0-0.8); MONO % 7.8 % (0.0-5.0); NEUTROPHILS # 15.2 10^3/uL (1.5-8.5); NEUTROPHILS % 78.8 % (36.0-66.0); PLATELET COUNT, AUTOMATED 350 10^3/uL (150-450); WHITE BLOOD COUNT 19.3 10^3/uL (4.0-10.0)
[2019-08-05 20:38] LABS: ALBUMIN 3.7 GM/DL (3.2-5.2); BILIRUBIN,TOTAL 0.7 MG/DL (0.2-1.0); CREATININE FOR GFR 1.06 MG/DL (0.55-1.30); GLOMERULAR FILTRATION RATE 52.7 (>32); POTASSIUM SERUM 3.9 MEQ/L (3.5-5.1); THYROID STIMULATING HORMONE 0.936 uIU/ML (0.358-3.740); TOTAL PROTEIN 7.4 GM/DL (6.4-8.2)
[2019-08-05 20:43] LABS: APPEARANCE, URINE CLOUDY (CLEAR); BACTERIA, URINE AUTO 1+ (NEGATIVE); BILIRUBIN, URINE AUTO NEGATIVE (NEGATIVE); BLOOD, URINE BLOOD NEGATIVE (NEGATIVE); COLOR, URINE YELLOW (YELLOW); GLUCOSE, URINE (UA) AUTO NEGATIVE (NEGATIVE); KETONE, URINE AUTO 1+ mg/dL (NEGATIVE); LEUKOCYTE ESTERASE, URINE AUTO 1+ (NEGATIVE); MUCUS, URINE SMALL (NEGATIVE); NITRITE, URINE AUTO NEGATIVE (NEGATIVE); PROTEIN, URINE AUTO 1+ mg/dL (NEGATIVE); RBC, URINE AUTO 4 /HPF (0-3); SPECIFIC GRAVITY URINE AUTO 1.024 (1.002-1.035); SQUAMOUS EPITHELIAL CELL UR AU 29 /HPF (0-6); WBC, URINE AUTO 7 /HPF (0-3)
== END ==
LOC: M WUC 15:25
PROVIDERS: ATTEND Physician Assistant
DX: R53.83 Other fatigue (principal); R19.7 Diarrhea, unspecified

== ENCOUNTER 2019-08-06 10:42 | Emergency (ER) | payer MEDICARE ==
[~2019-08-06] VITALS: Ht 162.6 cm; Wt 54.3 kg
[~2019-08-06 10:42] MED LIST changes: -CVS50CAP PO; -DOCU100C16 PO; -GABA-1171 PO; -LISI-1046 PO
[2019-08-06] MEDS ORDERED: CVS50CAP PO (11:12)
[2019-08-06 11:45] LABS: HEMATOCRIT 30.5 % (36.0-47.0); HEMOGLOBIN 9.2 g/dl (12.0-15.5); MEAN CORPUSCULAR HEMOGLOBIN 26.4 pg (27.0-33.0); MEAN CORPUSCULAR HGB CONC 30.2 g/dl (32.0-36.5); MEAN CORPUSCULAR VOLUME 87.6 fl (80.0-96.0); PLATELET COUNT, AUTOMATED 263 10^3/uL (150-450); RED BLOOD COUNT 3.48 10^6/uL (4.00-5.40); WHITE BLOOD COUNT 14.9 10^3/uL (4.0-10.0)
[2019-08-06 12:12] LABS: ALBUMIN 3.3 GM/DL (3.2-5.2); BILIRUBIN,TOTAL 0.7 MG/DL (0.2-1.0); CALCIUM LEVEL 8.6 MG/DL (8.8-10.2); CREATININE FOR GFR 1.42 MG/DL (0.55-1.30); GLOMERULAR FILTRATION RATE 37.6 (>32); POTASSIUM SERUM 4.9 MEQ/L (3.5-5.1); TOTAL PROTEIN 6.7 GM/DL (6.4-8.2)
[2019-08-06] MEDS ORDERED: ISOVUE-370 76% 100ML VIAL (Q9967) As Ordered ONE (13:11)
--- NOTE | 2019-08-06 14:41 | REP ---
Clinical: Acute chest pain. Technique: Axial contrast enhanced images from the thoracic inlet to the upper abdomen using 100 ml Isovue 370 intravenous contrast material with coronal and sagittal re-formations. Findings: Satisfactory enhancement of the pulmonary vasculature is achieved and no filling defects are identified to suggest pulmonary embolus. Thoracic aorta is normal caliber without aneurysm or dissection. Heart and pericardium are normal. Atherosclerotic changes to the thoracic aorta and coronary arteries noted. Bilateral lung merlos demonstrate moderate emphysematous changes without acute pulmonary parenchymal consolidation or atelectasis. No nodule or mass lesion. No pleural effusion/reaction. No pneumothorax. No adenopathy. Impression: No evidence for pulmonary embolus. No acute pleuroparenchymal or mediastinal process. Moderate emphysematous disease. Electronically Signed by Ugo Alvarez MD 08/06/2019 02:33 P
--- NOTE | 2019-08-06 14:48 | REP ---
Clinical: Left lower quadrant pain. Technique: Axial contrast enhanced images from the lung bases to the pubic symphysis using 100 ml Isovue 370 intravenous contrast material with coronal and sagittal re-formations. Comparison: 04/03/2018. Findings: No liver, spleen, pancreas, bilateral adrenal glands and kidneys are relatively normal. Cholelithiasis suggested without evidence for acute cholecystitis. The enteric system is without obstruction or acute inflammatory process. Normal terminal ileum and appendix identified in the right lower quadrant. Few scattered sigmoid diverticula noted without acute diverticulitis. Pelvis demonstrates normal bladder and age-appropriate uterus/adnexa. No ascites. No free air. No adenopathy. Atherosclerotic changes to the aorta and vasculature noted without aneurysm or dissection. Osseous structures are intact. Impression: 1. No acute abdominopelvic pathology appreciated. 2. Cholelithiasis 3. Scattered sigmoid diverticula without acute diverticulitis. Electronically Signed by Ugo Alvarez MD 08/06/2019 02:39 P
[2019-08-06 16:56] VITALS: BP 129/59
== END 2019-08-06 16:58 | disposition home or self-care (01) ==
LOC: M ED 10:42
DX: R79.9 Abnormal finding of blood chemistry, unspecified (principal); R19.7 Diarrhea, unspecified; R11.0 Nausea; K57.30 Diverticulosis of large intestine without perforation or abscess without bleeding; J44.9 Chronic obstructive pulmonary disease, unspecified; K80.80 Other cholelithiasis without obstruction; I25.10 Atherosclerotic heart disease of native coronary artery without angina pectoris; E78.5 Hyperlipidemia, unspecified; K21.9 Gastro-esophageal reflux disease without esophagitis; Z88.0 Allergy status to penicillin; Z88.1 Allergy status to other antibiotic agents; Z79.82 Long term (current) use of aspirin; Z79.899 Other long term (current) drug therapy
CPT/HCPCS: 36415; 71275; 74177; 80053; 81001; 85027; 87086; 99284; Q9967

== ENCOUNTER → 2019-08-06 | Outpatient (REF) | payer MEDICARE ==
[2019-08-06 17:01] LABS: APPEARANCE, URINE TURBID (CLEAR); BACTERIA, URINE AUTO NEGATIVE (NEGATIVE); BILIRUBIN, URINE AUTO NEGATIVE (NEGATIVE); BLOOD, URINE BLOOD NEGATIVE (NEGATIVE); COLOR, URINE AMBER (YELLOW); GLUCOSE, URINE (UA) AUTO NEGATIVE (NEGATIVE); KETONE, URINE AUTO TRACE mg/dL (NEGATIVE); LEUKOCYTE ESTERASE, URINE AUTO 2+ (NEGATIVE); MUCUS, URINE SMALL (NEGATIVE); NITRITE, URINE AUTO NEGATIVE (NEGATIVE); PROTEIN, URINE AUTO 1+ mg/dL (NEGATIVE); RBC, URINE AUTO 3 /HPF (0-3); SPECIFIC GRAVITY URINE AUTO 1.024 (1.002-1.035); SQUAMOUS EPITHELIAL CELL UR AU 45 /HPF (0-6); UROBILINOGEN, URINE AUTO 0.2 mg/dL (0.0-2.0); WBC, URINE AUTO 26 /HPF (0-3)
== END ==
LOC: M SFHCCAPE 15:44
PROVIDERS: ATTEND Physician Assistant
DX: R53.83 Other fatigue (principal); R19.7 Diarrhea, unspecified

== ENCOUNTER 2019-08-08 09:11 | Inpatient (IN) | payer MEDICARE ==
[~2019-08-08] VITALS: Ht 162.6 cm; Wt 54.4 kg
[~2019-08-08 09:11] MED LIST changes: +CVS50CAP PO
[2019-08-08] MEDS ORDERED: GABA-1171 PO (09:26)
[2019-08-08] MEDS ORDERED: IPRATROPIUM 0.5MG/ALBUTEROL 2.5MG INH SOL UD 3ML (DUONEB)(J7620) NEB ONE (10:00)
[2019-08-08 10:10] LABS: BASO # 0.1 10^3/uL (0.0-0.2); BASO % 0.4 % (0.0-1.0); EOS % 0.2 % (0.0-3.0); HEMATOCRIT 30.3 % (36.0-47.0); HEMOGLOBIN 9.1 g/dl (12.0-15.5); LYMPH # 1.1 10^3/uL (1.5-5.0); LYMPH % 9.7 % (24.0-44.0); MEAN CORPUSCULAR HEMOGLOBIN 26.2 pg (27.0-33.0); MEAN CORPUSCULAR VOLUME 87.3 fl (80.0-96.0); MONO # 1.7 10^3/uL (0.0-0.8); MONO % 15.1 % (0.0-5.0); NEUTROPHILS # 8.4 10^3/uL (1.5-8.5); NEUTROPHILS % 74.3 % (36.0-66.0); PLATELET COUNT, AUTOMATED 308 10^3/uL (150-450); RED BLOOD COUNT 3.47 10^6/uL (4.00-5.40); WHITE BLOOD COUNT 11.3 10^3/uL (4.0-10.0)
--- NOTE | 2019-08-08 10:15 | REP ---
Single view chest: 08/08/2019. Indication: Dyspnea. Comparison: 08/05/2019. Findings: Prominent interstitial markings and mild cephalization of the pulmonary vasculature are noted. More focal opacity of the lateral right middle lobe is present. There is no pleural effusion or pneumothorax. Emphysema sequelae are redemonstrated. Cardiomediastinal silhouette is unremarkable with the exception of aortic atherosclerotic disease. Impression: Findings suggestive of pulmonary edema/CHF with small basilar air space consolidations not excluded. Pleural thickening or focal pneumonitis of the lateral right middle lobe. Otherwise stable chronic changes. Electronically Signed by Say Winslow DO 08/08/2019 10:07 A
[2019-08-08 10:47] LABS: ALBUMIN 3.1 GM/DL (3.2-5.2); ALT/SGPT 10 U/L (12-78); BILIRUBIN,DIRECT 0.3 MG/DL (0.0-0.2); BILIRUBIN,TOTAL 0.9 MG/DL (0.2-1.0); BLOOD UREA NITROGEN 31 MG/DL (7-18); CARBON DIOXIDE LEVEL 27 MEQ/L (21-32); CHLORIDE LEVEL 105 MEQ/L (98-107); CK-MB VALUE MASS 1.1 NG/ML (<3.6); CPK CREATINE PHOSPHOKINASE 105 U/L (26-192); CREATININE FOR GFR 1.29 MG/DL (0.55-1.30); GLUCOSE, FASTING 169 MG/DL (70-100); LIPASE 103 U/L (73-393); MB/CK RELATIVE INDEX 1.05 (< OR =4); NT-PRO BNP 3276 PG/ML (<450); POTASSIUM SERUM 4.4 MEQ/L (3.5-5.1); SODIUM LEVEL 142 MEQ/L (136-145); TOTAL PROTEIN 6.8 GM/DL (6.4-8.2); TROPONIN I < 0.02 NG/ML (< 0.10)
[2019-08-08] MEDS ORDERED: FUROSEMIDE 40 MG/4 ML VIAL (J1940) IV ONE (11:00)
[2019-08-08] MEDS ORDERED: DOCU100C16 PO (11:11)
[2019-08-08] MEDS ORDERED: LISI-1046 PO (11:11)
[2019-08-08] MEDS ORDERED: NITR4TASL SL (11:11)
[2019-08-08] MEDS ORDERED: ACETAMINOPHEN TAB 650MG DOSE (2X325MG) PO PRN (11:45)
[2019-08-08] MEDS ORDERED: GABAPENTIN 100 MG CAP PO PRN (13:00)
[2019-08-08] MEDS ORDERED: NITROGLYCERIN 0.4 MG SUBL TABLET SL PRN (13:00)
[2019-08-08] MEDS ORDERED: ALBUTEROL SULFATE 2.5 MG/0.5 ML INH NEB SOLN NEB PRN (13:00)
[2019-08-08] MEDS: IPRATROPIUM 0.5MG/ALBUTEROL 2.5MG INH SOL UD 3ML (DUONEB)(J7620) NEB SCH ×2 (13:42→19:38)
--- NOTE | 2019-08-08 13:45 | HPEPDOC ---
General Date of Admission Aug 08, 2019 at 11:41 Date of Service: Aug 08, 2019 Attending Physician: OMER PRASAD MD Chief Complaint The patient is a 84-year-old female admitted with a reason for visit of CHF. Source: Patient, Family Exam Limitations: No limitations Timing/Duration: Day(s) Severity: Moderate Associated Symptoms: Nausea, Shortness of breath History of Present Illness 84-year-old woman with a history of COPD, former smoker, CAD s/p stent in 2012, hyperlipidemia, hypertension, macular degeneration, PAD s/p LE stenting, who was recently evaluated in the ED on 08/06/2019 for nausea and abdominal pain with a benign work up and unrevealing CT A/P, who presented to the ED with persistent and perhaps worsening cold symptoms, dyspnea and declining exercise tolerance. On arrival to the ED, she was hemodynamically stable but notably hypoxemic on room air requiring 3L nasal canula. Initial work up was notable for a leukocytosis to 11.3, Hgb 9.1, hct 30.3, Cr 1.29 (improved from 08/06 ~1.4s), negative troponin, non ischemic EKG, with an elevated proBNP of 3276 and a CXR with significant pulmonary vascular congestion with possible bibasilar infiltrative process. At baseline she is on lasix 20 daily and uses nocturnal 2L NC and has recently been ambulating with a walker since her LE stenting last month but is otherwise mobile, independent and lives with her daughter and son-in-law. While in the ED she was given 40 IV lasix and duoneb x 1. On my evaluation, she and her family reported a 1-2 week history of congestion, cough that is now increasingly productive of yellow sputum, shortness of breath, poor PO due to nausea and declining exercise tolerance. She otherwise denied antonio chest pain, palpitations, aspiration events, difficulty or pain with swallowing, fever or rigors. She apparently is somewhat always chilly at baseline. Home Medications Scheduled Aspirin (Aspirin EC) 81 Mg Tabec, 81 MG PO DAILY, (Reported) Atorvastatin Calcium (Atorvastatin Calcium) 40 Mg Tab, 40 MG PO QHS, (Reported) Carvedilol (Carvedilol) 3.125 Mg Tab, 3.125 MG PO BID, (Reported) Cholecalciferol (Vitamin D3) (Vitamin D3) 1,000 Unit Tab, 1,000 UNIT PO QHS, (Reported) Clopidogrel Bisulfate (Plavix) 75 Mg Tab, 75 MG PO DAILY, (Reported) Docusate Sodium (Docusate Sodium) 100 Mg Capsule, 100 MG PO DAILY, (Reported) Furosemide (Furosemide) 20 Mg Tab, 20 MG PO DAILY, (Reported) Lisinopril (Lisinopril) 2.5 Mg Tablet, 2.5 MG PO QHS, (Reported) Pantoprazole Sodium (Pantoprazole Sodium) 40 Mg Tab, 40 MG PO DAILY, (Reported) Potassium Chloride (Klor-Con M10) 10 Meq Tabcr, 10 MEQ PO BID, (Reported) Salmeterol/Fluticasone (Advair 250-50 Diskus) 14 Puff/Inhaler Aerp, 1 PUFF INH B ID, (Reported) Vit A/Vit C/Vit E/Zinc/Copper (Preservision Areds Softgel) 1 Cap Cap, 1 CAP PO QHS, (Reported) Scheduled PRN Acetaminophen (Acetaminophen) 325 Mg Tablet, 650 MG PO Q4H PRN for PAIN, (Reported) Gabapentin (Gabapentin) 100 Mg Capsule, 100 MG PO TID PRN for PAIN, (Reported) Nitroglycerin (Nitrostat) 0.4 Mg Tab.subl, 0.4 MG SL NITRO PRN for CHEST PAIN, (Reported) Allergies Coded Allergies: Penicillins (Verified Allergy, Mild, RASH, TONGUE AND FACIAL SWELLING, 08/08/19) ciprofloxacin (Verified Adverse Reaction, Intermediate, TREMORS/ANXIETY/NAUSEA/VOMITING, 08/08/19) Past Medical History Medical History 1. COPD. 2. Bronchitis, not on any oxygen at home. 3. Coronary artery disease status post unstable angina and cardiac stent in 2012. 4. Hyperlipidemia. 5. Hypertension. 6. Tobacco abuse. 7. Macular degeneration. 8. Allergies. 9. Hypomagnesemia. 10. PAD s/p multiple stents in the lower extremities Surgical History Cardiac and lower extremity stent placement Family History Significant Family History: Diabetes, Heart disease, Hypertension CAD - father DM - mother Hypertension - daughter Social History * Smoker: former Smoker Alcohol: Denies Drugs: denies Recent Travel/Sick Contacts: Denies: Recent travel, Recent sick contacts Psychosocial History: No pertinent psych hx SOCIAL HISTORY The patient quit smoking in 2017 afte 60 years. She denies any drinking or recreational drug use. Lives with her daughter and son-in-law and otherwise independent with self care. A-FIB/CHADSVASC A-FIB History Current/History of A-Fib/PAF?: No Current PO Anticoag Therapy: No Age/Risk Factor Scoring CHADSVASC: CHADSVASC Response (Comments) Value Age Risk Factor Age >/= 75 years old 2 Gender Risk Factor Female 1 Hx of CHF Yes 1 Hx of HTN Yes 1 Hx of Stroke/TIA/or VTE No 0 Hx of Diabetes No 0 Hx of Vascular Disease Yes 1 Total 6 Treatment Treatment ordered: NONE Reason Anticoagulant not given: Not indicated/[id number] Review of Systems Constitutional: Reports: Chills (always chilly); Denies: Fever, Night Sweats Eyes: Denies: Pain, Vision change ENT: Denies: Head Aches, Ear Pain, Dysphagia Skin: Denies: Rash, Lesions, Breakdown Pulmonary: Reports: Dyspnea, Cough Cardiovascular: Denies: Chest Pain, Palpitations, Orthopnea, Paroxysmal Noc. Dyspnea, Lt Headedness Gastrointestinal: Reports: Nausea; Denies: Vomiting, Abdominal Pain, Diarrhea, Constipation, Melena, Hematochezia Genitourinary: Denies: Dysuria, Frequency, Incontinence, Retention Hematologic: Denies: Bruising, Bleeding Excessively Endocrine: Denies: Polydipsia, Polyphagia, Polyuria, Heat Intolerance, Cold Intolerance, Other Endocrine Sx Musculoskeletal: Denies: Neck Pain, Back Pain, Shoulder Pain, Arm Pain, Hand Pain, Leg Pain, Foot Pain, Joint Pain, Muscle Pain, Spasms, Other Symptoms Neurological: Reports: Weakness; Denies: Numbness, Change in speech, Confusion Psych: Reports: Mood Normal; Denies: Depression, Memory Issues Physical Examination General Exam: Positive: Alert, Cooperative, No Acute Distress Eye Exam: Positive: PERRLA, Conjunctiva & lids normal, EOMI; Negative: Sclera icteric ENT Exam: Positive: Atraumatic, Mucous membr. moist/pink, Pharynx Normal Neck Exam: Positive: Supple; Negative: thyromegaly Chest Exam: Positive: Normal air movement, Rales (bibasilar crackles); Negative: Rhonchi, Wheezing Heart Exam: Positive: Rate Normal, Regular Rhythm, Normal S1, Normal S2, Murmurs (has a 2/6 systolic murmur best heard at LLSB); Negative: Rubs Telemetry: Positive: No significant arrhythmia Abdomen Exam: Positive: Normal bowel sounds, Soft, Tenderness (slightly tender at ); Negative: Hepatospenomegaly Extremity Exam: Positive: Normal pulses; Negative: Clubbing, Cyanosis, Edema Skin Exam: Positive: Nl turgor and temperature; Negative: Breakdown, Lesion Neuro Exam: Positive: Normal Gait, Normal Speech, Strength at 5/5 X4 ext, Cranial Nerves 3-12 NL Psych Exam: Positive: Mental status NL, Mood NL, Oriented x 3 Vital Signs Vital Signs Date Time Temp Pulse Resp B/P (MAP) Pulse Ox O2 Delivery O2 Flow Rate FiO2 08/08/19 11:45 94 20 133/59 (83) 93 Nasal Cannula 3.0 08/08/19 09:23 99.0 Laboratory Data Labs 24H Laboratory Tests 2 08/08/19 09:36: Immature Granulocyte % (Auto) 0.3, Neutrophils (%) (Auto) 74.3H, Lymphocytes (%) (Auto) 9.7L, Monocytes (%) (Auto) 15.1H, Eosinophils (%) (Auto) 0.2, Basophils (%) (Auto) 0.4, Neutrophils # (Auto) 8.4, Lymphocytes # (Auto) 1.1L, Monocytes # (Auto) 1.7H, Eosinophils # (Auto) 0.0, Basophils # (Auto) 0.1, Nucleated Red Blood Cells % (auto) 0.0, Anion Gap 10, Glomerular Filtration Rate 42.0, Calcium Level 9.0, Total Bilirubin 0.9, Direct Bilirubin 0.3H, Aspartate Amino Transf (AST/SGOT) 18, Alanine Aminotransferase (ALT/SGPT) 10L, Alkaline Phosphatase 86, Total Creatine Kinase 105, Creatine Kinase MB 1.1, Creatine Kinase MB Relative Index 1.05, Troponin I < 0.02, BC-Tnb-X-Type Natriuretic Peptide 3276H, Total Protein 6.8, Albumin 3.1L, Albumin/Globulin Ratio 0.84L, Lipase 103 CBC/BMP Laboratory Tests 08/08/19 09:36 Assessment/Plan 84-year-old woman with COPD on nocturnal 2L oxygen, former smoker, coronary artery disease s/p stenting, hyperlipidemia, hypertension, tobacco abuse, macular degeneration, recent presentation for nausea and abdominal discomfort who returns to the ED with worsening shortness of breath in the setting of recent URI symptoms of ~ 1 week and found have elevated proBNP and pulmonary congestion c/w CHF exacerbation, with c/f concurrent viral URI precipitating a COPD exacerbation vs. superimposed PNA. 1. HFpEF exacerbation: Shortness of breath with hypoxemia with elevated proBNP, CXR with vascular congestion and bibasilar crackles c/w CHF exacerbation -Lasix 40 IV Q6H for a goal negative 1L in 24h period -1.5L fluid restriction per 24h period -Strict I/Os -Daily weights -Hold home PO lasix -Last TTE was 2016 with severely elevated RVSP to 70s and EF 50%, will order one today -EKG was stable, troponin was negative and she denies chest pain -Will continue lisinopril 2.5 QHS and 3.125 BID coreg 2. COPD exacerbation: Likely 2/2 ongoing URI -DuoNeb Q6H -Albuterol nebs Q4H PRN for wheezing and tachypnea -Continue to monitor and hold of steroids for now as primary issue appears to be CHF and still investigating possibility of PNA -Supplemental oxygen -Incentive spirometer 3. URI with c/f superimposed PNA with increasingly productive cough and possible bibasilar opacities -check respiratory viral panel -sputum gram stain and culture -procalcitonin -will hold off antibiotics for now 4. Hypertension: -continue lisinopril and coreg per home script, but may transiently hold ACEi if she becomes soft during diuresis 5. CAD: -continue aspirin and Plavix and beta christina 6. PAD: -continue ASA/plavix and BB 7. Hyperlipidemia: -continue home lipitor 8. Deep venous thrombosis (DVT) prophylaxis: Lovenox 40 daily Dispo: Medsurg for diuresis for volume optimization and infectious workup. Expect that this will likely require >48h. Plan / VTE VTE Prophylaxis Ordered?: Yes OMER PRASAD MD Aug 08, 2019 13:45
[2019-08-08 14:00] VITALS: BP 111/69
[2019-08-08] MEDS: DOCUSATE SODIUM 100 MG CAP PO SCH (14:11)
[2019-08-08] MEDS: FUROSEMIDE 40 MG/4 ML VIAL (J1940) IV SCH ×3 (14:11→23:48)
[2019-08-08] MEDS: ASPIRIN 81 MG ENTERIC TAB PO SCH (14:12)
[2019-08-08] MEDS: PANTOPRAZOLE 40MG TAB (PROTONIX) PO SCH (14:13)
[2019-08-08] MEDS: CLOPIDOGREL 75 MG TAB PO SCH (14:13)
[2019-08-08] MEDS: POTASSIUM CHLORIDE 10 MEQ SR TABLET PO SCH ×2 (14:13→21:10)
[2019-08-08] MEDS: CARVedilol 3.125 MG TAB PO SCH ×2 (14:14→21:10)
[2019-08-08] MEDS: ATORVASTATIN 20 MG TAB PO SCH (21:10)
[2019-08-08] MEDS: VITAMIN D 1,000 INTERNATIONAL UNITS TABLET PO SCH (21:10)
[2019-08-08] MEDS: LISINOPRIL *2.5 MG* TAB PO SCH (21:10)
[2019-08-08] MEDS: OCUVITE 1 TAB PO SCH (21:11)
--- NOTE | 2019-08-08 21:24 | ECHO ---
DATE OF PROCEDURE: 08/08/2019 REFERRING PHYSICIAN: Tiffany Garcia MD INDICATION: Heart failure, unspecified. HEIGHT: 5 feet 4 inches WEIGHT: 56 kg 2D MEASUREMENTS: Aortic annulus: 1.8 cm Aortic root: 2.9cm Left atrium: 3.0 cm Ventricular septum: 0.87 cm Posterior wall: 0.90 cm Left ventricle diastole: 3.6 cm Inferior vena cava: 1.8 cm (more than 50% respiratory variation). DOPPLER MEASUREMENTS: Aortic valve velocity: 110 cm/s LVOT velocity: 7.2 cm/s LVOT VTI: 18.1 cm No aortic stenosis. No aortic regurgitation. Very mild mitral regurgitation. Mitral E velocity: 76.0 cm/s Mitral A velocity: 108 cm/s Mitral deceleration time: 285 ms Mild tricuspid regurgitation. Estimated right ventricle systolic pressure: 41-47 mmHg assuming a right atrial pressure of 5-10 mmHg. No pulmonic regurgitation. MITRAL ANNULAR TISSUE DOPPLER: E prime septal: 5.3 cm/s E prime lateral: 5.0 cm/s DESCRIPTION: Rhythm was sinus. Image quality was moderately technically difficult. No pericardial effusion. This is a 2D, M-mode, color flow Doppler and pulse wave Doppler examination that included mitral annular tissue Doppler. CONCLUSIONS: 1. Normal left ventricle internal dimensions and wall thickness. Normal regional left ventricle (LV) wall motion and wall thickening. Normal LV systolic function. Left ventricular ejection fraction (LVEF) 60-65% by visual estimate. Grade I LV diastolic dysfunction (impaired relaxation filling pattern). 2. Suggestive of moderate elevation of estimated right ventricle systolic pressure. Normal right ventricle internal dimension and systolic function. 3. Mild mitral annular calcification. Very mild mitral regurgitation. 4. Moderately technically difficult echocardiogram.
[2019-08-08 22:00] VITALS: BP 125/47
[2019-08-09] MEDS: IPRATROPIUM 0.5MG/ALBUTEROL 2.5MG INH SOL UD 3ML (DUONEB)(J7620) NEB SCH ×4 (01:36→19:41)
[2019-08-09] MEDS: FUROSEMIDE 40 MG/4 ML VIAL (J1940) IV SCH (05:55)
[2019-08-09 06:00] VITALS: BP 112/84
[2019-08-09 06:03] LABS: HEMATOCRIT 27.2 % (36.0-47.0); HEMOGLOBIN 8.3 g/dl (12.0-15.5); MEAN CORPUSCULAR HEMOGLOBIN 25.9 pg (27.0-33.0); MEAN CORPUSCULAR HGB CONC 30.5 g/dl (32.0-36.5); PLATELET COUNT, AUTOMATED 274 10^3/uL (150-450)
[2019-08-09 06:35] LABS: CREATININE FOR GFR 1.15 MG/DL (0.55-1.30); MAGNESIUM LEVEL 1.5 MG/DL (1.8-2.4); POTASSIUM SERUM 3.5 MEQ/L (3.5-5.1)
[2019-08-09] MEDS: CARVedilol 3.125 MG TAB PO SCH ×2 (08:00→21:47)
[2019-08-09] MEDS: CLOPIDOGREL 75 MG TAB PO SCH (08:00)
[2019-08-09] MEDS: POTASSIUM CHLORIDE 10 MEQ SR TABLET PO SCH ×2 (08:00→21:46)
[2019-08-09] MEDS: ASPIRIN 81 MG ENTERIC TAB PO SCH (08:00)
[2019-08-09] MEDS: PANTOPRAZOLE 40MG TAB (PROTONIX) PO SCH (08:00)
[2019-08-09] MEDS: ENOXAPARIN 30 MG/0.3 ML SYR (J1650) SC SCH (08:01)
[2019-08-09] MEDS: DOCUSATE SODIUM 100 MG CAP PO SCH (08:02)
[2019-08-09] MEDS ORDERED: POTASSIUM CHLORIDE 10 MEQ SR TABLET PO ONE (12:15)
[2019-08-09] MEDS ORDERED: MAG SULF 1GM/100ML (MAG RUN) 1 GM in IV 1 EA IV ONE (12:15)
--- NOTE | 2019-08-09 12:53 | REP ---
Clinical: Dyspnea . Comparison: 08/08/2019 . Findings: The mediastinum and cardiac silhouette are stable and within normal limits for portable technique. The lung merlos demonstrate advanced COPD/emphysematous changes similar to prior examination. Subtle forming opacity along the periphery of the right mid lung zone and possible atelectasis at the right base cannot be excluded. No focal consolidation. No obvious effusion. No evidence for pulmonary vascular congestion. Impression: Stable chronic emphysematous changes. Subtle forming infiltrate along the periphery of the right mid lung zone and possible right basilar atelectasis cannot be excluded. Electronically Signed by Ugo Alvarez MD 08/09/2019 12:45 P
[2019-08-09] MEDS: BENZONATATE 100 MG CAP PO PRN ×2 (13:31→21:47)
[2019-08-09 14:00] VITALS: BP 112/54
--- NOTE | 2019-08-09 14:32 | ECGEPIP ---
- ED Test Date: 2019-08-08 Pat Name: BRISEIDA IBARRA Department: Room: - Gender: Female Director Of Officiating: ANGIE : 1935 Requested By: Stas Lyn Order Number: [id number] Reading MD: Manny Gonzales Measurements Intervals Velpen Rate: 92 P: 59 NC: 127 QRS: 22 QRSD: 87 T: 53 QT: 343 QTc: 426 Interpretive Statements SINUS RHYTHM Delayed anterior R wave progression Nonspecific ST-T wave abnormalities Similar to tracing done 04-06-17 Electronically Signed on 08-09-2019 14:31:36 EST by Manny Gonzales
--- NOTE | 2019-08-09 17:20 | IPNPDOC ---
Text Note Date of Service The patient was seen on 08/09/19. NOTE Physical Examination General Exam: Alert, Cooperative, No Acute Distress Eye Exam: PERRLA, Conjunctiva & lids normal, EOMI ENT Exam: Atraumatic, Mucous membr. moist/pink, Pharynx Normal Neck Exam: Supple Chest Exam: bibasilar crackles, no wheezing Heart Exam: RRR, 2/6 systolic murmur best heard at LLSB Abdomen Exam: Normal bowel sounds, Soft, Tenderness, no hepatosplenomegaly Extremity Exam: wwp, no LE edema, 2+ DP pulses Skin Exam: Nl turgor and temperature, no breakdown or lesions Neuro Exam: Normal Speech, Strength at 5/5 X4 ext, Cranial Nerves 3-12 NL, hard of hearing Psych Exam: Mental status NL, Mood NL, Oriented x 3 Labs: Reviewed, K 3.5, Mag 1.6, both were repleted. Cr improved to 1.15, while WBC was 9 Imagin. Normal left ventricle internal dimensions and wall thickness. Normal regional left ventricle (LV) wall motion and wall thickening. Normal LV systolic function. Left ventricular ejection fraction (LVEF) 60-65% by visual estimate. Grade I LV diastolic dysfunction (impaired relaxation filling pattern). 2. Suggestive of moderate elevation of estimated right ventricle systolic pressure. Normal right ventricle internal dimension and systolic function. 3. Mild mitral annular calcification. Very mild mitral regurgitation. 4. Moderately technically difficult echocardiogram. CXR: The mediastinum and cardiac silhouette are stable and within normal limits for portable technique. The lung merlos demonstrate advanced COPD/emphysematous changes similar to prior examination. Subtle forming opacity along the periphery of the right mid lung zone and possible atelectasis at the right base cannot be excluded. No focal consolidation. No obvious effusion. No evidence for pulmonary vascular congestion. Assessment/Plan 84-year-old woman with COPD on nocturnal 2L oxygen, former smoker, coronary artery disease s/p stenting, hyperlipidemia, hypertension, tobacco abuse, macular degeneration, recent presentation for nausea and abdominal discomfort who returns to the ED with worsening shortness of breath in the setting of recent URI symptoms of ~ 1 week and found have elevated proBNP and pulmonary congestion c/w CHF exacerbation, with c/f concurrent viral URI precipitating a COPD exacerbation vs. superimposed PNA. Today I did a CXR that showed resolved pulmonary congestion with concern for a developing opacity, procal was borderline and sputum gramstain showed some gram negative bacilli c/f PNA. 1. HFpEF exacerbation: Shortness of breath with hypoxemia with elevated proBNP, CXR with vascular congestion and bibasilar crackles c/w CHF exacerbation -s/p Lasix 40 IV Q6H x 3 doses -Now switched back to home 20mg PO daily dosing as she is now euvolemic -1.5L fluid restriction per 24h period -Strict I/Os -Daily weights -Hold home PO lasix -Last TTE was 2016 with severely elevated RVSP to 70s and EF 50%, did one yesterday that showed collapsible IVC, RVSP now 41-47, EF now 60s and grade 1 diastolic dysfunction. -EKG was stable, troponin was negative and she denies chest pain -Will continue lisinopril 2.5 QHS and 3.125 BID coreg CAP: Developing RML PNA with borderline procal and +gramstain and pending sputum culture -will start empiric moxi PO 3. COPD exacerbation: Likely 2/2 URI and developing PNA -DuoNeb Q6H -Albuterol nebs Q4H PRN for wheezing and tachypnea -Continue to monitor and hold of steroids for now as primary issue appears to be CHF and still investigating possibility of PNA -Supplemental oxygen -Incentive spirometer 4. Hypertension: -continue lisinopril and coreg per home script 5. CAD: -continue aspirin and Plavix and beta christina 6. PAD: -continue ASA/plavix and BB 7. Hyperlipidemia: -continue home lipitor 8. Deep venous thrombosis (DVT) prophylaxis: Lovenox 40 daily Dispo: Medsurg for diuresis for volume optimization and PNA treatment. Pending PT recs VS,Fishbone, I+O VS, Fishbone, I+O Laboratory Tests 08/09/19 05:28 Vital Signs Date Time Temp Pulse Resp B/P (MAP) Pulse Ox O2 Delivery O2 Flow Rate FiO2 08/09/19 14:00 99.2 89 21 112/54 (73) 97 Nasal Cannula 3.0 I&O- Last 24 Hours up to 6 AM 08/09/19 06:00 Intake Total 1120 ml Output Total 1025 ml Balance 95 ml OMER PRASAD MD Aug 09, 2019 17:20
[2019-08-09] MEDS: ONDANSETRON 4MG/2ML VIAL (J2405) IV PRN (17:55)
[2019-08-09] MEDS: MOXIFLOXACIN 400 MG TAB PO SCH (17:55)
[2019-08-09] MEDS: OCUVITE 1 TAB PO SCH (21:46)
[2019-08-09] MEDS: LISINOPRIL *2.5 MG* TAB PO SCH (21:46)
[2019-08-09] MEDS: ATORVASTATIN 20 MG TAB PO SCH (21:46)
[2019-08-09] MEDS: VITAMIN D 1,000 INTERNATIONAL UNITS TABLET PO SCH (21:47)
[2019-08-09 22:00] VITALS: BP 114/86
[2019-08-10] MEDS: IPRATROPIUM 0.5MG/ALBUTEROL 2.5MG INH SOL UD 3ML (DUONEB)(J7620) NEB SCH ×4 (01:31→21:11)
[2019-08-10 06:00] VITALS: BP 109/57
[2019-08-10 06:36] LABS: HEMATOCRIT 28.2 % (36.0-47.0); HEMOGLOBIN 8.3 g/dl (12.0-15.5); MEAN CORPUSCULAR HEMOGLOBIN 25.4 pg (27.0-33.0); MEAN CORPUSCULAR HGB CONC 29.4 g/dl (32.0-36.5); MEAN CORPUSCULAR VOLUME 86.2 fl (80.0-96.0); PLATELET COUNT, AUTOMATED 290 10^3/uL (150-450); RED BLOOD COUNT 3.27 10^6/uL (4.00-5.40)
[2019-08-10 06:58] LABS: CALCIUM LEVEL 8.9 MG/DL (8.8-10.2); CREATININE FOR GFR 1.29 MG/DL (0.55-1.30); POTASSIUM SERUM 4.3 MEQ/L (3.5-5.1)
[2019-08-10] MEDS: DOCUSATE SODIUM 100 MG CAP PO SCH (08:56)
[2019-08-10] MEDS: PANTOPRAZOLE 40MG TAB (PROTONIX) PO SCH (08:56)
[2019-08-10] MEDS: BENZONATATE 100 MG CAP PO PRN ×2 (08:56→16:52)
[2019-08-10] MEDS: ASPIRIN 81 MG ENTERIC TAB PO SCH (08:56)
[2019-08-10] MEDS: CARVedilol 3.125 MG TAB PO SCH ×2 (08:56→21:37)
[2019-08-10] MEDS: POTASSIUM CHLORIDE 10 MEQ SR TABLET PO SCH ×2 (08:57→21:36)
[2019-08-10] MEDS: CLOPIDOGREL 75 MG TAB PO SCH (08:57)
[2019-08-10] MEDS: FUROSEMIDE 20 MG TAB PO SCH (08:57)
[2019-08-10] MEDS: ENOXAPARIN 30 MG/0.3 ML SYR (J1650) SC SCH (08:58)
--- NOTE | 2019-08-10 10:37 | IPN ---
DATE: 08/10/2019 Nguyen is seen on [facility] rounding for the hospitalist. She has congestive heart failure with preserved ejection, right middle lobe pneumonia, and chronic obstructive pulmonary disease (COPD) exacerbation. She feels better. She is getting out of bed. She is walking. She is less short of breath. She is still not back to her baseline. Family members say she has lost significant weight over the last week with nausea. Today is the first day she has eaten well. PHYSICAL EXAM: Vital signs stable, afebrile, 109/57, and oxygen saturation 94% in room air. General Appearance: Resting comfortably, looks relatively well. No jugular venous distention (JVD). Lungs have rales at the bases, a few wheezes. Heart: Regular rhythm. 1/5 systolic ejection murmur. Abdomen: Soft, nontender. No mass. No peripheral edema. LABS: CBC is unremarkable. BMP is unremarkable. IMPRESSION: 1. Congestive heart failure, preserved ejection fraction. Continue her current diuretic regimen. She is slowly responding to this. 2. Right middle lobe pneumonia. Responding to oral Avelox, which we will continue. She is also on nebulized bronchodilator. Not currently receiving any steroid therapy. 3. Chronic obstructive pulmonary disease (COPD) exacerbation. Oxygenation seems adequate. I do not think she needs steroids. Continue bronchodilator. 4. Hypertension. Blood pressure well controlled on current regimen. 5. Coronary artery disease. Continue aspirin, Plavix and beta-christina. 6. Hyperlipidemia. Continue current dose of atorvastatin. I expect she will be in hospital for several more days.
[2019-08-10 14:00] VITALS: BP 113/57
[2019-08-10] MEDS: MOXIFLOXACIN 400 MG TAB PO SCH (16:52)
[2019-08-10] MEDS: VITAMIN D 1,000 INTERNATIONAL UNITS TABLET PO SCH (21:36)
[2019-08-10] MEDS: OCUVITE 1 TAB PO SCH (21:36)
[2019-08-10] MEDS: LISINOPRIL *2.5 MG* TAB PO SCH (21:36)
[2019-08-10] MEDS: ATORVASTATIN 20 MG TAB PO SCH (21:36)
[2019-08-10 22:00] VITALS: BP 116/57
[2019-08-10] MEDS: guaiFENesin ER 600 MG TAB PO SCH (23:05)
[2019-08-11] MEDS: IPRATROPIUM 0.5MG/ALBUTEROL 2.5MG INH SOL UD 3ML (DUONEB)(J7620) NEB SCH ×4 (01:41→19:43)
[2019-08-11 06:00] VITALS: BP 116/59
[2019-08-11] MEDS: BENZONATATE 100 MG CAP PO PRN ×2 (06:06→14:18)
[2019-08-11 06:26] LABS: HEMATOCRIT 27.7 % (36.0-47.0); HEMOGLOBIN 8.3 g/dl (12.0-15.5); MEAN CORPUSCULAR HEMOGLOBIN 25.5 pg (27.0-33.0); PLATELET COUNT, AUTOMATED 303 10^3/uL (150-450); RED BLOOD COUNT 3.26 10^6/uL (4.00-5.40); WHITE BLOOD COUNT 11.4 10^3/uL (4.0-10.0)
[2019-08-11 06:44] LABS: CALCIUM LEVEL 8.8 MG/DL (8.8-10.2); CREATININE FOR GFR 1.12 MG/DL (0.55-1.30); GLOMERULAR FILTRATION RATE 49.5 (>32); MAGNESIUM LEVEL 1.9 MG/DL (1.8-2.4); POTASSIUM SERUM 4.2 MEQ/L (3.5-5.1)
[2019-08-11] MEDS: ASPIRIN 81 MG ENTERIC TAB PO SCH (08:13)
[2019-08-11] MEDS: FUROSEMIDE 20 MG TAB PO SCH (08:13)
[2019-08-11] MEDS: DOCUSATE SODIUM 100 MG CAP PO SCH (08:14)
[2019-08-11] MEDS: PANTOPRAZOLE 40MG TAB (PROTONIX) PO SCH (08:14)
[2019-08-11] MEDS: POTASSIUM CHLORIDE 10 MEQ SR TABLET PO SCH ×2 (08:14→21:19)
[2019-08-11] MEDS: CLOPIDOGREL 75 MG TAB PO SCH (08:14)
[2019-08-11] MEDS: guaiFENesin ER 600 MG TAB PO SCH ×2 (08:14→21:18)
[2019-08-11] MEDS: ENOXAPARIN 30 MG/0.3 ML SYR (J1650) SC SCH (08:17)
[2019-08-11] MEDS: CARVedilol 3.125 MG TAB PO SCH ×2 (08:18→21:19)
[2019-08-11] MEDS: ONDANSETRON 4MG/2ML VIAL (J2405) IV PRN (12:33)
[2019-08-11 14:00] VITALS: BP 115/60
[2019-08-11] MEDS: MOXIFLOXACIN 400 MG TAB PO SCH (17:22)
--- NOTE | 2019-08-11 20:39 | IPN ---
DATE: 08/11/2019 Nguyen still has a harsh cough. She is eating better and I think she is slowly feeling better. She is admitted with congestive heart failure with a preserved ejection, right middle lobe pneumonia and chronic obstructive pulmonary disease (COPD) exacerbation. Her sputum grew out Haemophilus (H) influenzae, which will target her treatment. PHYSICAL EXAMINATION: 118/50, pulse of 82, afebrile, 97% oxygen saturation. GENERAL APPEARANCE: Elderly, frail, lying in bed. HEENT: Unremarkable. LUNGS: Scattered rhonchi and wheezes. HEART: Regular rate and rhythm. ABDOMEN: Soft, nontender. No peripheral edema. LABORATORY DATA: White count 11.4, hemoglobin 8.3, platelets 303. Sodium 139, potassium 4.2, BUN 25, creatinine 133, magnesium 1.9. Sputum culture grew out heavy growth Haemophilus (H) influenzae. IMPRESSION: 1. Congestive heart failure with preserved ejection fraction. She is responding well to current treatment. She is on oral furosemide, beta christina therapy with carvedilol. 2. Chronic obstructive pulmonary disease (COPD) exacerbation. Continue nebulized bronchodilator and oral Avelox. 3. Right middle lobe pneumonia. Continue Avelox 400 mg. Sputum grew out H. Influenzae, which should be sensitive to Avelox. She is making progress, but it is slow. I expect she will be here at least until the middle of the week.
[2019-08-11] MEDS: ATORVASTATIN 20 MG TAB PO SCH (21:18)
[2019-08-11] MEDS: LISINOPRIL *2.5 MG* TAB PO SCH (21:19)
[2019-08-11] MEDS: VITAMIN D 1,000 INTERNATIONAL UNITS TABLET PO SCH (21:19)
[2019-08-11] MEDS: OCUVITE 1 TAB PO SCH (21:19)
[2019-08-11 22:00] VITALS: BP 105/51
[2019-08-12] MEDS: IPRATROPIUM 0.5MG/ALBUTEROL 2.5MG INH SOL UD 3ML (DUONEB)(J7620) NEB SCH ×4 (01:48→20:52)
[2019-08-12 06:00] VITALS: BP 123/70
[2019-08-12 06:55] LABS: HEMATOCRIT 27.9 % (36.0-47.0); HEMOGLOBIN 8.1 g/dl (12.0-15.5); MEAN CORPUSCULAR VOLUME 86.1 fl (80.0-96.0); PLATELET COUNT, AUTOMATED 302 10^3/uL (150-450); RED BLOOD COUNT 3.24 10^6/uL (4.00-5.40); WHITE BLOOD COUNT 11.4 10^3/uL (4.0-10.0)
[2019-08-12 07:11] LABS: CALCIUM LEVEL 8.6 MG/DL (8.8-10.2); CREATININE FOR GFR 1.02 MG/DL (0.55-1.30); GLOMERULAR FILTRATION RATE 55.1 (>32); MAGNESIUM LEVEL 1.8 MG/DL (1.8-2.4); POTASSIUM SERUM 4.2 MEQ/L (3.5-5.1)
[2019-08-12] MEDS: BENZONATATE 100 MG CAP PO PRN ×2 (08:29→15:11)
[2019-08-12] MEDS: CARVedilol 3.125 MG TAB PO SCH ×2 (08:29→20:31)
[2019-08-12] MEDS: CLOPIDOGREL 75 MG TAB PO SCH (08:29)
[2019-08-12] MEDS: DOCUSATE SODIUM 100 MG CAP PO SCH (08:29)
[2019-08-12] MEDS: ASPIRIN 81 MG ENTERIC TAB PO SCH (08:30)
[2019-08-12] MEDS: PANTOPRAZOLE 40MG TAB (PROTONIX) PO SCH (08:30)
[2019-08-12] MEDS: ENOXAPARIN 30 MG/0.3 ML SYR (J1650) SC SCH (08:30)
[2019-08-12] MEDS: POTASSIUM CHLORIDE 10 MEQ SR TABLET PO SCH ×2 (08:30→20:30)
[2019-08-12] MEDS: FUROSEMIDE 20 MG TAB PO SCH (08:30)
[2019-08-12] MEDS: guaiFENesin ER 600 MG TAB PO SCH ×2 (08:30→20:30)
--- NOTE | 2019-08-12 10:46 | IPN ---
DATE: 08/12/2019 Nguyen is seen on [facility]. She is feeling better, less cough, eating better. No chest pain. No shortness of breath. PHYSICAL EXAMINATION: Input and output approximately equivalent. 121/55, pulse 94, 96% oxygen saturation on 2 liters. GENERAL APPEARANCE: Elderly, sitting up and in no distress. HEENT: Unremarkable. No jugular venous distention (JVD). LUNGS: Clear. HEART: Regular rhythm. 1/6 systolic ejection murmur. ABDOMEN: Soft, nontender. EXTREMITIES: No peripheral edema. LABORATORIES: White count 11.4, hemoglobin 8.1, which is stable. Platelets 302, sodium 141, potassium 4.2, BUN 19, creatinine 1.0, glucose 124. IMPRESSION: 1. Congestive heart failure (CHF), preserved ejection fraction. She is compensated on her current regimen. 2. Right lower lobe pneumonia secondary to H influenza. Continue Avelox. 3. Chronic obstructive pulmonary disease (COPD). Continue nebulized bronchodilators. Does not require steroid therapy. Anticipate discharge tomorrow. She will get a home safety evaluation before discharge.
[2019-08-12 14:00] VITALS: BP 123/57
[2019-08-12] MEDS: MOXIFLOXACIN 400 MG TAB PO SCH (16:57)
[2019-08-12] MEDS: ATORVASTATIN 20 MG TAB PO SCH (20:30)
[2019-08-12] MEDS: VITAMIN D 1,000 INTERNATIONAL UNITS TABLET PO SCH (20:30)
[2019-08-12] MEDS: OCUVITE 1 TAB PO SCH (20:30)
[2019-08-12] MEDS: LISINOPRIL *2.5 MG* TAB PO SCH (20:31)
[2019-08-12 22:00] VITALS: BP 119/57
[2019-08-13] MEDS: IPRATROPIUM 0.5MG/ALBUTEROL 2.5MG INH SOL UD 3ML (DUONEB)(J7620) NEB SCH ×4 (02:00→20:00)
[2019-08-13 06:00] VITALS: BP 126/60
[2019-08-13 06:16] LABS: HEMATOCRIT 27.2 % (36.0-47.0); HEMOGLOBIN 8.1 g/dl (12.0-15.5); MEAN CORPUSCULAR HEMOGLOBIN 25.2 pg (27.0-33.0); MEAN CORPUSCULAR HGB CONC 29.8 g/dl (32.0-36.5); MEAN CORPUSCULAR VOLUME 84.7 fl (80.0-96.0); PLATELET COUNT, AUTOMATED 307 10^3/uL (150-450); RED BLOOD COUNT 3.21 10^6/uL (4.00-5.40); WHITE BLOOD COUNT 11.8 10^3/uL (4.0-10.0)
[2019-08-13 06:34] LABS: BLOOD UREA NITROGEN 19 MG/DL (7-18); CALCIUM LEVEL 8.8 MG/DL (8.8-10.2); CARBON DIOXIDE LEVEL 27 MEQ/L (21-32); CHLORIDE LEVEL 104 MEQ/L (98-107); CREATININE FOR GFR 0.93 MG/DL (0.55-1.30); GLOMERULAR FILTRATION RATE > 60.0 (>32); GLUCOSE, FASTING 137 MG/DL (70-100); MAGNESIUM LEVEL 1.7 MG/DL (1.8-2.4); SODIUM LEVEL 139 MEQ/L (136-145)
[2019-08-13] MEDS: guaiFENesin ER 600 MG TAB PO SCH ×2 (09:03→20:20)
[2019-08-13] MEDS: FUROSEMIDE 20 MG TAB PO SCH (09:03)
[2019-08-13] MEDS: DOCUSATE SODIUM 100 MG CAP PO SCH (09:03)
[2019-08-13] MEDS: CLOPIDOGREL 75 MG TAB PO SCH (09:03)
[2019-08-13] MEDS: PANTOPRAZOLE 40MG TAB (PROTONIX) PO SCH (09:04)
[2019-08-13] MEDS: ASPIRIN 81 MG ENTERIC TAB PO SCH (09:04)
[2019-08-13] MEDS: ENOXAPARIN 30 MG/0.3 ML SYR (J1650) SC SCH (09:04)
[2019-08-13] MEDS: POTASSIUM CHLORIDE 10 MEQ SR TABLET PO SCH ×2 (09:04→20:20)
[2019-08-13] MEDS: CARVedilol 3.125 MG TAB PO SCH ×2 (09:05→20:21)
--- NOTE | 2019-08-13 10:31 | IPNPDOC ---
Subjective Date Seen The patient was seen on 08/13/19. Subjective Chief Complaint/HPI mild shortness of breath General: Reports: Normal Appetite; Denies: Chills, Night Sweats, Fatigue, Malaise Pulmonary: Reports: Dyspnea (mild), Cough, Pleuritic Chest Pain, Other Symptoms Objective Physical Examination General Exam: Positive: Alert, Cooperative, No Acute Distress Eye Exam: Positive: PERRLA, Conjunctiva & lids normal, EOMI; Negative: Sclera icteric ENT Exam: Positive: Atraumatic, Mucous membr. moist/pink, Pharynx Normal Neck Exam: Positive: Supple; Negative: thyromegaly Chest Exam: Positive: Normal air movement, Rales (faint rales at bases); Negative: Rhonchi, Wheezing Heart Exam: Positive: Rate Normal, Regular Rhythm, Normal S1, Normal S2, Murmurs (has a 2/6 systolic murmur best heard at LLSB); Negative: Rubs Telemetry: Positive: No significant arrhythmia Abdomen Exam: Positive: Normal bowel sounds, Soft, Tenderness (slightly tender at ); Negative: Hepatospenomegaly Extremity Exam: Positive: Normal pulses; Negative: Clubbing, Cyanosis, Edema Skin Exam: Positive: Nl turgor and temperature; Negative: Breakdown, Lesion Neuro Exam: Positive: Normal Gait, Normal Speech, Strength at 5/5 X4 ext, Cranial Nerves 3-12 NL Psych Exam: Positive: Mental status NL, Mood NL, Oriented x 3 Assessment /Plan Assessment 1. RLL PNA - secondary to influenza, continue Avelox. 2. COPD - continue duonebs, not on steroids. 3. CHF (preserved EF) - compensated on current regimen, continue lasix, carvedilol, COREEN. 4. HLN - continue atorvastatin. 5. CAD s/p stenting - continue ASA. 6. PAD s/p stenting - continue ASA/plavix. 7. DVT ppx - lovenox. Plan/VTE VTE Prophylaxis Ordered?: Yes VS, I&O, 24H, Fishbone Vital Signs/I&O Vital Signs Date Time Temp Pulse Resp B/P (MAP) Pulse Ox O2 Delivery O2 Flow Rate FiO2 08/13/19 09:05 80 117/61 08/13/19 06:00 98.0 18 97 Nasal Cannula 2.0 I&O- Last 24 Hours up to 6 AM 08/13/19 06:00 Intake Total 1380 ml Output Total 350 ml Balance 1030 ml Laboratory Data 24H LABS Laboratory Tests 2 08/13/19 05:40: Nucleated Red Blood Cells % (auto) 0.0, Anion Gap 8, Glomerular Filtration Rate > 60.0, Calcium Level 8.8, Magnesium Level 1.7L CBC/BMP Laboratory Tests 08/13/19 05:40 Microbiology Microbiology 08/10/19 Stool Occult Blood (ANGUS) - Final, Complete 08/09/19 Gram Stain - Final, Complete 08/09/19 Sputum Culture - Final, Complete Haemophilus Influenzae TRISH IGLESIAS MD Aug 13, 2019 10:27
[2019-08-13 14:00] VITALS: BP 117/60
[2019-08-13] MEDS: MOXIFLOXACIN 400 MG TAB PO SCH (17:11)
[2019-08-13] MEDS: BENZONATATE 100 MG CAP PO PRN (20:20)
[2019-08-13] MEDS: VITAMIN D 1,000 INTERNATIONAL UNITS TABLET PO SCH (20:20)
[2019-08-13] MEDS: ATORVASTATIN 20 MG TAB PO SCH (20:20)
[2019-08-13 20:21] VITALS: BP 113/52
[2019-08-13] MEDS: LISINOPRIL *2.5 MG* TAB PO SCH (20:21)
[2019-08-13] MEDS: OCUVITE 1 TAB PO SCH (20:21)
[2019-08-13 22:00] VITALS: BP 113/52
[2019-08-14] MEDS: IPRATROPIUM 0.5MG/ALBUTEROL 2.5MG INH SOL UD 3ML (DUONEB)(J7620) NEB SCH ×2 (02:00→07:27)
[2019-08-14 06:00] VITALS: BP 118/56
[2019-08-14] MEDS: ENOXAPARIN 30 MG/0.3 ML SYR (J1650) SC SCH (10:18)
[2019-08-14] MEDS: FUROSEMIDE 20 MG TAB PO SCH (10:19)
[2019-08-14] MEDS: CARVedilol 3.125 MG TAB PO SCH (10:19)
[2019-08-14] MEDS: DOCUSATE SODIUM 100 MG CAP PO SCH (10:19)
[2019-08-14] MEDS: POTASSIUM CHLORIDE 10 MEQ SR TABLET PO SCH (10:19)
[2019-08-14] MEDS: ASPIRIN 81 MG ENTERIC TAB PO SCH (10:19)
[2019-08-14] MEDS: PANTOPRAZOLE 40MG TAB (PROTONIX) PO SCH (10:19)
[2019-08-14] MEDS: CLOPIDOGREL 75 MG TAB PO SCH (10:20)
[2019-08-14] MEDS: guaiFENesin ER 600 MG TAB PO SCH (10:20)
[2019-08-14] MEDS ORDERED: MOXI400T11 PO (10:40)
--- NOTE | 2019-08-14 10:44 | DS.PDOC ---
Discharge Summary General Date of Admission Aug 08, 2019 at 11:41 Date of Discharge 08/14/19 Primary Care Physician: HUGH URBINA PA-C Attending Physician: TRISH IGLESIAS MD Discharge Summary PROCEDURES PERFORMED DURING STAY: [none]. ADMITTING DIAGNOSES: 1. RLL CAP DISCHARGE DIAGNOSES: 1. RLL CAP COMPLICATIONS/CHIEF COMPLAINT: shortness of breath, decreased exercise tolerance HISTORY OF PRESENT ILLNESS: 84-year-old female PMHx significant for COPD, former smoker, CAD s/p stent in 2012, hyperlipidemia, hypertension, macular degeneration, PAD s/p LE stenting presented to the ED with persistent and perhaps worsening cold symptoms, dyspnea and declining exercise tolerance. On arrival to the ED, she was hemodynamically stable but notably hypoxemic on room air requiring 3L nasal canula. Initial work up was notable for a leukocytosis to 11.3, Hgb 9.1, hct 30.3, Cr 1.29 (i mproved from 08/06 ~1.4s), negative troponin, non ischemic EKG, with an elevated proBNP of 3276 and a CXR with significant pulmonary vascular congestion with possible bibasilar infiltrative process. At baseline she is on lasix 20 daily and uses nocturnal 2L NC and has recently been ambulating with a walker since her LE stenting last month but is otherwise mobile, independent and lives with her daughter and son-in-law. While in the ED she was given 40 IV lasix and duoneb x 1. On my evaluation, she and her family reported a 1-2 week history of congestion, cough that is now increasingly productive of yellow sputum, shortness of breath, poor PO due to nausea and declining exercise tolerance. She otherwise denied antonio chest pain, palpitations, aspiration events, difficulty or pain with swallowing, fever or rigors. She apparently is somewhat always chilly at baseline. She was influenza positive. Patient was admitted for treatment of CAP. HOSPITAL COURSE: Patient was admitted and treated for the following conditions: 1. RLL PNA - secondary to influenza, was tx with IV antibiotics which were subsequently changed to PO Avelox. - patient to be discharged on Avelox to complete a 7 day course. 2. COPD - continue inhalers. 3. CHF (preserved EF) - compensated on current regimen. - continue lasix, carvedilol, COREEN. 4. HLN - continue atorvastatin. 5. CAD s/p stenting - continue ASA. 6. PAD s/p stenting - continue ASA/plavix. DISCHARGE MEDICATIONS: Please see below. ALLERGIES: Please see below. PHYSICAL EXAMINATION ON DISCHARGE: VITAL SIGNS: Please see below. General Exam: Alert, Cooperative, No Acute Distress Eye Exam: PERRLA, Conjunctiva & lids normal, EOMI, no scleral icterus ENT Exam: Atraumatic, Mucous membranes moist/pink, Pharynx Normal Neck Exam: Supple, no thyromegaly Chest Exam: Normal air movement, no rales, wheezing, rhonchi Heart Exam: Rate Normal, Regular Rhythm, Normal S1, Normal S2, no murmurs Abdomen Exam: Normal bowel sounds, Soft, nontender Extremity Exam: Normal pulses, no clubbing, cyanosis, edema Skin Exam: normal turgor and temperature, no rashes Neuro Exam: Normal Gait, Normal Speech, Strength at 5/5 X 4 ext, Cranial Nerves 3-12 NL Psych Exam: Mental status NL, Mood NL, Oriented x 3 LABORATORY DATA: Please see below. IMAGING: CXR: 08/08/19 Impression: Findings suggestive of pulmonary edema/CHF with small basilar air space consolidations not excluded. Pleural thickening or focal pneumonitis of the lateral right middle lobe. Otherwise stable chronic changes. ECHO: CONCLUSIONS: 1. Normal left ventricle internal dimensions and wall thickness. Normal regional left ventricle (LV) wall motion and wall thickening. Normal LV systolic function. Left ventricular ejection fraction (LVEF) 60-65% by visual estimate. Grade I LV diastolic dysfunction (impaired relaxation filling pattern). 2. Suggestive of moderate elevation of estimated right ventricle systolic pressure. Normal right ventricle internal dimension and systolic function. 3. Mild mitral annular calcification. Very mild mitral regurgitation. 4. Moderately technically difficult echocardiogram. PROGNOSIS: stable. ACTIVITY: as tolerated. DIET: as tolerated (low sodium/low cholesterol). DISPOSITION: home DISCHARGE INSTRUCTIONS: 1. follow up with your PCP Hugh URIBE in 1-2 weeks. ITEMS TO FOLLOWUP ON ON OUTPATIENT: 1. none DISCHARGE CONDITION: stable TIME SPENT ON DISCHARGE: Greater than 30 minutes. Vital Signs/I&Os Vital Signs Date Time Temp Pulse Resp B/P (MAP) Pulse Ox O2 Delivery O2 Flow Rate FiO2 08/14/19 06:00 98.5 78 18 118/56 (76) 99 Nasal Cannula 1.0 I&O- Last 24 Hours up to 6 AM 08/14/19 06:00 Intake Total 630 ml Output Total 900 ml Balance -270 ml Microbiology Microbiology 08/10/19 Stool Occult Blood (ANGUS) - Final, Complete 08/09/19 Gram Stain - Final, Complete 08/09/19 Sputum Culture - Final, Complete Haemophilus Influenzae Discharge Medications Scheduled Aspirin (Aspirin EC) 81 Mg Tabec, 81 MG PO DAILY, (Reported) Atorvastatin Calcium (Atorvastatin Calcium) 40 Mg Tab, 40 MG PO QHS, (Reported) Carvedilol (Carvedilol) 3.125 Mg Tab, 3.125 MG PO BID, (Reported) Cholecalciferol (Vitamin D3) (Vitamin D3) 1,000 Unit Tab, 1,000 UNIT PO QHS, (Reported) Clopidogrel Bisulfate (Plavix) 75 Mg Tab, 75 MG PO DAILY, (Reported) Docusate Sodium (Docusate Sodium) 100 Mg Capsule, 100 MG PO DAILY, (Reported) Furosemide (Furosemide) 20 Mg Tab, 20 MG PO DAILY, (Reported) Lisinopril (Lisinopril) 2.5 Mg Tablet, 2.5 MG PO QHS, (Reported) Moxifloxacin HCl (Moxifloxacin HCl) 400 Mg Tablet, 400 MG PO DAILY@1800 Please take 1 TAB by mouth daily at 1800 until complete. Pantoprazole Sodium (Pantoprazole Sodium) 40 Mg Tab, 40 MG PO DAILY, (Reported) Potassium Chloride (Klor-Con M10) 10 Meq Tabcr, 10 MEQ PO BID, (Reported) Salmeterol/Fluticasone (Advair 250-50 Diskus) 14 Puff/Inhaler Aerp, 1 PUFF INH BID, (Reported) Vit A/Vit C/Vit E/Zinc/Copper (Preservision Areds Softgel) 1 Cap Cap, 1 CAP PO QHS, (Reported) Scheduled PRN Acetaminophen (Acetaminophen) 325 Mg Tablet, 650 MG PO Q4H PRN for PAIN, (Reported) Gabapentin (Gabapentin) 100 Mg Capsule, 100 MG PO TID PRN for PAIN, (Reported) Nitroglycerin (Nitrostat) 0.4 Mg Tab.subl, 0.4 MG SL NITRO PRN for CHEST PAIN, (Reported) Allergies Coded Allergies: Penicillins (Verified Allergy, Mild, RASH, TONGUE AND FACIAL SWELLING, 08/08/19) ciprofloxacin (Verified Adverse Reaction, Intermediate, TREMORS/ANXIETY/NAUSEA/VOMITING, 08/08/19) TRISH IGLESIAS MD Aug 14, 2019 10:44
[2019-08-14] MEDS ORDERED: BENZ-18 PO (12:00)
== END 2019-08-14 12:25 | disposition home or self-care (01) | DRG 291 ==
LOC: EDBD 09:11 → M ED 09:11 → M ED INP 11:41 → ENRESERVTM 12:40 → ENRESERVDT 12:40 → M MSPAV 13:10
PROVIDERS: ADMIT Internal Medicine; ATTEND Internal Medicine
DX: I11.0 Hypertensive heart disease with heart failure (principal); J14 Pneumonia due to Hemophilus influenzae; J44.1 Chronic obstructive pulmonary disease with (acute) exacerbation; I50.33 Acute on chronic diastolic (congestive) heart failure; E78.5 Hyperlipidemia, unspecified; H35.30 Unspecified macular degeneration; I73.9 Peripheral vascular disease, unspecified; E83.42 Hypomagnesemia; Z87.891 Personal history of nicotine dependence; Z98.61 Coronary angioplasty status; Z79.82 Long term (current) use of aspirin; Z79.899 Other long term (current) drug therapy; Z88.0 Allergy status to penicillin; Z88.1 Allergy status to other antibiotic agents; J40 Bronchitis, not specified as acute or chronic; J06.9 Acute upper respiratory infection, unspecified; I25.10 Atherosclerotic heart disease of native coronary artery without angina pectoris

== ENCOUNTER → 2019-09-02 | Outpatient (REF) | payer MEDICARE ==
[~2019-09-02] MED LIST changes: +BENZ-18 PO; +DOCU100C16 PO; +GABA-1171 PO; +LISI-1046 PO; +MOXI400T11 PO; +ONDA-83 PO; -ONDA4TAB5 PO
[2019-09-02 18:08] LABS: APPEARANCE, URINE CLEAR (CLEAR); BACTERIA, URINE AUTO 1+ (NEGATIVE); BILIRUBIN, URINE AUTO NEGATIVE (NEGATIVE); BLOOD, URINE BLOOD NEGATIVE (NEGATIVE); COLOR, URINE STRAW (YELLOW); GLUCOSE, URINE (UA) AUTO NEGATIVE (NEGATIVE); KETONE, URINE AUTO NEGATIVE (NEGATIVE); LEUKOCYTE ESTERASE, URINE AUTO NEGATIVE (NEGATIVE); MUCUS, URINE SMALL (NEGATIVE); NITRITE, URINE AUTO NEGATIVE (NEGATIVE); PROTEIN, URINE AUTO NEGATIVE (NEGATIVE); RBC, URINE AUTO 1 /HPF (0-3); SPECIFIC GRAVITY URINE AUTO 1.006 (1.002-1.035); SQUAMOUS EPITHELIAL CELL UR AU 5 /HPF (0-6); UROBILINOGEN, URINE AUTO 0.2 mg/dL (0.0-2.0); WBC, URINE AUTO 2 /HPF (0-3)
[2019-09-02 19:50] LABS: BASO # 0.1 10^3/uL (0.0-0.2); BASO % 0.7 % (0.0-1.0); EOS # 0.5 10^3/uL (0.0-0.5); EOS % 6.4 % (0.0-3.0); HEMATOCRIT 37.8 % (36.0-47.0); HEMOGLOBIN 10.6 g/dl (12.0-15.5); LYMPH # 1.8 10^3/uL (1.5-5.0); LYMPH % 24.9 % (24.0-44.0); MEAN CORPUSCULAR HEMOGLOBIN 25.3 pg (27.0-33.0); MEAN CORPUSCULAR VOLUME 90.2 fl (80.0-96.0); MONO # 0.8 10^3/uL (0.0-0.8); MONO % 10.4 % (0.0-5.0); NEUTROPHILS # 4.2 10^3/uL (1.5-8.5); NEUTROPHILS % 57.5 % (36.0-66.0); PLATELET COUNT, AUTOMATED 210 10^3/uL (150-450); RED BLOOD COUNT 4.19 10^6/uL (4.00-5.40); WHITE BLOOD COUNT 7.3 10^3/uL (4.0-10.0)
[2019-09-02 20:03] LABS: ALBUMIN 3.6 GM/DL (3.2-5.2); ALT/SGPT 12 U/L (12-78); BILIRUBIN,TOTAL 0.6 MG/DL (0.2-1.0); BLOOD UREA NITROGEN 13 MG/DL (7-18); CALCIUM LEVEL 8.8 MG/DL (8.8-10.2); CARBON DIOXIDE LEVEL 31 MEQ/L (21-32); CHLORIDE LEVEL 101 MEQ/L (98-107); CREATININE FOR GFR 0.89 MG/DL (0.55-1.30); FERRITIN 56 NG/ML (8-252); GLOMERULAR FILTRATION RATE > 60.0 (>32); GLUCOSE, FASTING 136 MG/DL (70-100); IRON (FE) 111 UG/DL (50-170); POTASSIUM SERUM 3.8 MEQ/L (3.5-5.1); SODIUM LEVEL 140 MEQ/L (136-145)
[2019-09-02 20:53] LABS: ERYTHROCYTE SEDIMENTATION RATE 43 mm/hr (0-30)
== END ==
LOC: M SFHCCAPE 10:49
PROVIDERS: ATTEND Physician Assistant
DX: D50.9 Iron deficiency anemia, unspecified (principal); R53.83 Other fatigue

== ENCOUNTER → 2019-11-27 | Outpatient (CLI) | payer MEDICARE ==
--- NOTE | 2019-11-27 15:13 | REP ---
UNILATERAL DUPLEX DOPPLER ARTERIAL ULTRASOUND LEFT LOWER EXTREMITY: Real-time ultrasound evaluation and duplex Doppler interrogation of the left lower extremity arterial system is performed. PRADIP measurement could not be tolerated by the patient. There is severe stenosis of the left common femoral artery and proximal superficial femoral artery. Significant plaquing is seen in these areas. There is intimal thickening throughout the remaining superficial femoral artery and popliteal artery. The calf arteries are not well visualized due to extensive calcifications and small size. Very slow flow is seen in the calf arteries. There are diffuse mild phasic waveforms. Waveforms of the popliteal artery and calf arteries show tardus parvus pattern with delayed systolic peak. Left Peak Systolic Velocity Common femoral artery 494 cm/s Profunda 46 cm/s Proximal SFA 322 cm/s Mid SFA 66 cm/s Distal SFA 41 cm/s Popliteal 21 cm/s Proximal AIYANA 14 cm/s Tibial peroneal trunk 11 cm/s Proximal FRONT [employer]ER [employer]IDENTIAL [employer]IVER 9 cm/s Distal FRONT LOADER RESIDENTIAL DRIVER 7 cm/s Distal AIYANA 13 cm/s Electronically Signed by Tariq Zheng MD 11/27/2019 04:23 P
== END ==
LOC: M RAD 11:57
PROVIDERS: ATTEND Surgery Vascular Surgery
DX: I70.212 Atherosclerosis of native arteries of extremities with intermittent claudication, left leg (principal)

== ENCOUNTER 2019-12-11 12:49 | Inpatient (IN) | payer MEDICARE ==
[~2019-12-11] VITALS: Ht 162.6 cm; Wt 55.2 kg
[2019-12-11] VITALS (9 sets, daily range): BP systolic 108–163; BP diastolic 48–90
[~2019-12-11 12:49] MED LIST changes: +LISI-1034 PO; -LISI-1046 PO; +LISI2.5T2 PO; -LISI2.5T76 PO
[2019-12-11] MEDS ORDERED: CLOP75TA2 (13:09)
[2019-12-11 13:36] LABS: BASO # 0.1 10^3/uL (0.0-0.2); BASO % 0.4 % (0.0-1.0); EOS # 0.1 10^3/uL (0.0-0.5); EOS % 0.8 % (0.0-3.0); HEMATOCRIT 23.5 % (36.0-47.0); HEMOGLOBIN 7.5 g/dl (12.0-15.5); LYMPH # 1.6 10^3/uL (1.5-5.0); MEAN CORPUSCULAR HEMOGLOBIN 31.4 pg (27.0-33.0); MEAN CORPUSCULAR HGB CONC 31.9 g/dl (32.0-36.5); MEAN CORPUSCULAR VOLUME 98.3 fl (80.0-96.0); MONO # 0.8 10^3/uL (0.0-0.8); MONO % 7.3 % (0.0-5.0); NEUTROPHILS # 8.9 10^3/uL (1.5-8.5); PLATELET COUNT, AUTOMATED 202 10^3/uL (150-450); RED BLOOD COUNT 2.39 10^6/uL (4.00-5.40); WHITE BLOOD COUNT 11.5 10^3/uL (4.0-10.0)
[2019-12-11] MEDS ORDERED: TRAM50TA2 PO (13:38)
[2019-12-11] MEDS ORDERED: FERR325T18 PO (13:38)
[2019-12-11] MEDS ORDERED: PANTOPRAZOLE 40MG VIAL (C9113 PER 1) IV ONE (14:15)
[2019-12-11 14:16] LABS: FERRITIN 16 NG/ML (8-252)
[2019-12-11 14:24] LABS: VITAMIN B12 LEVEL 276 PG/ML (247-911)
[2019-12-11] MEDS: PANTOPRAZOLE SODIUM 40 MG in D5W 50 ML IV SCH ×2 (14:37→18:51)
[2019-12-11] MEDS ORDERED: VITAD1000T PO (14:41)
--- NOTE | 2019-12-11 16:09 | REP ---
CHEST, SINGLE VIEW: Single view of the chest is performed and compared to prior studies. There appears to be linear fibroatelectatic change in each lower lung zone. No consolidating infiltrate is seen. The heart is normal in size. There is calcification of the thoracic aorta. The mediastinal silhouette is unchanged. IMPRESSION: Mild bibasilar fibroatelectatic change. Electronically Signed by Tariq Zheng MD 12/11/2019 04:13 P
[2019-12-11] MEDS ORDERED: ALBUTEROL SULFATE 2.5 MG/0.5 ML INH NEB SOLN NEB PRN (16:15)
[2019-12-11] MEDS: SUCRALFATE SUSP 1GM/10ML UD PO SCH ×2 (18:51→22:10)
[2019-12-11] MEDS: ADVAIR HFA 115/21MCG INHALER INH SCH (19:21)
--- NOTE | 2019-12-11 20:01 | REPVR ---
PROCEDURE INFORMATION: Exam: US Abdomen Complete Exam date and time: 12/11/2019 6:21 PM Age: 84 years old Clinical indication: Abdominal pain; Generalized; Additional info: Abdominal distension and left lower quadrant pain TECHNIQUE: Imaging protocol: Real-time ultrasound of the abdomen with image documentation. COMPARISON: CT ABD/PEL W/IV CONTRAST ONLY 08/06/2019 1:55 PM FINDINGS: Liver: Normal. No mass. Gallbladder: The gallbladder wall thickness measures 2 mm. Cholelithiasis. Common bile duct: The bile duct measures 9 mm. Pancreas: Pancreas not clearly visualized due to overlying bowel gas. Right kidney: Right kidney measures 8.8 x 4.1 by 4.3 cm. Left kidney: Left kidney measures 10.4 x 4.6 x 4.6 cm. Spleen: Normal. No splenomegaly. Aorta: Normal. No aneurysm. Inferior vena cava: Normal. IMPRESSION: Cholelithiasis. Electronically signed by: Kurt Cordero On 12/11/2019 20:01:00 PM
--- NOTE | 2019-12-11 20:31 | ECGEPIP ---
[facility] - ED Test Date: 2019-12-11 Pat Name: BRISEIDA IBARRA Department: Room: Gender: Female Court Liaison: julianne : 1935 Requested By: Stas Lyn Order Number: [id number] Reading MD: Aleisha Carranza Measurements Intervals [place] Rate: 94 P: 50 WV: 132 QRS: 15 QRSD: 77 T: 72 QT: 351 QTc: 440 Interpretive Statements SINUS RHYTHM WITH OCCASIONAL VENTRICULAR PREMATURE COMPLEXES POSSIBLE ANTERIOR MYOCARDIAL INFARCTION, PROBABLY OLD NSTTW abnormalities SIMILAR 08/08/19 Electronically Signed on 12-11-2019 20:30:34 EDT by Aleisha Carranza
[2019-12-11] MEDS ORDERED: FUROSEMIDE 40MG/4ML VIAL (J1940) IV ONE (21:00)
[2019-12-11] MEDS: CARVedilol 3.125 MG TAB PO SCH (22:10)
[2019-12-11 22:18] LABS: HEMATOCRIT 26.7 % (36.0-47.0); HEMOGLOBIN 8.7 g/dl (12.0-15.5)
[2019-12-11] MEDS ORDERED: ACETAMINOPHEN TAB 650MG DOSE (2X325MG) PO ONE (22:30)
--- NOTE | 2019-12-11 22:56 | HPEPDOC ---
General Date of Admission 12/11/19 Date of Service: December 11, 2019 Chief Complaint The patient is a 84-year-old female admitted with a reason for visit of Vomiting, Diarrhea. Source: Patient History of Present Illness 84 year old female presented to the ED with 2 days history of liquid black stools and brown colored emesis from last night. She had 4 liquid black stools since yesterday. She also complained of generalized abdominal pain and bloating and distension. She did have about 2 days of constipation before starting the liquid stools. In the ED she was found to have an Hb of 7.5. Her guaiac was positive. She mostly runs about 8.3 to 9.3 range over the past year. She in on asa, plavix. As per EMS record she is also on Xarelto however this is not there in her med reconciliation done by our pharmacy. She was admitted for GIB and acute on chronic anemia due to blood loss. Home Medications Scheduled Aspirin (Aspirin EC) 81 Mg Tabec, 81 MG PO DAILY, (Reported) Atorvastatin Calcium (Atorvastatin Calcium) 40 Mg Tab, 40 MG PO QHS, (Reported) Carvedilol (Carvedilol) 3.125 Mg Tab, 3.125 MG PO BID, (Reported) Cholecalciferol (Vitamin D3) (Vitamin D3) 1,000 Unit Tablet, 1,000 UNITS PO QHS, (Reported) Clopidogrel Bisulfate (Plavix) 75 Mg Tab, 75 MG PO DAILY, (Reported) Docusate Sodium (Docusate Sodium) 100 Mg Capsule, 100 MG PO DAILY, (Reported) Ferrous Sulfate (Ferrous Sulfate) 325 Mg Tablet, 325 MG PO DAILY, (Reported) Furosemide (Furosemide) 20 Mg Tab, 20 MG PO DAILY, (Reported) Lisinopril (Lisinopril) 2.5 Mg Tablet, 2.5 MG PO QHS, (Reported) Pantoprazole Sodium (Pantoprazole Sodium) 40 Mg Tab, 40 MG PO DAILY, (Reported) Potassium Chloride (Klor-Con M10) 10 Meq Tabcr, 10 MEQ PO BID, (Reported) Salmeterol/Fluticasone (Advair 250-50 Diskus) 14 Puff/Inhaler Aerp, 1 PUFF INH BID, (Reported) Vit A/Vit C/Vit E/Zinc/Copper (Preservision Areds Softgel) 1 Cap Cap, 1 CAP PO QHS, (Reported) Scheduled PRN Acetaminophen (Acetaminophen) 325 Mg Tablet, 650 MG PO Q4H PRN for PAIN, (Rep orted) Nitroglycerin (Nitrostat) 0.4 Mg Tab.subl, 0.4 MG SL NITRO PRN for CHEST PAIN, (Reported) Tramadol HCl (Tramadol HCl) 50 Mg Tablet, 50 MG PO Q8H PRN for PAIN, (Reported) Allergies Coded Allergies: Penicillins (Verified Allergy, Mild, RASH, TONGUE AND FACIAL SWELLING, 08/08/19) ciprofloxacin (Verified Adverse Reaction, Intermediate, TREMORS/ANXIETY/NAUSEA/VOMITING, 08/08/19) Past Medical History Medical History H/O GIB in 2018 from gastroesophageal junction Hemorrhagic gastropathy Chronic Anemia Iron deficiency Sigmoid Diverticulosis colonic polyps PAD including: Aortoiliac atherosclerotic arterial occlusive disease. Femoral- popliteal atherosclerotic arterial occlusive disease bilateral s/p stents bilaterally. Supposed to go another procedure on the left for 80% blockage. Carotid artery stenosis, COPD, Coronary artery disease s/p AMI x 2, gastroesophageal reflux disease hyperlipidemia Possible sleep apnea on nocturnal oxygen only , never had a sleep study. History of tobacco use. Stroke Macular degeneration Systolic CHF with EF of 50% Severe pulmonary Hypertension RSVP of 74 Surgical History CARDIAC STENT 09/2012 CARDIAC STENT 10/2016 FEMORAL ARTERY STENTS 07/2018 BILAT. CATARACT EXTRACTIONS EGD and Colonoscopy Family History FATHER: , ANGINA MOTHER: 93 YRS, DIABETES, MACULAR DEGENERATION, HYPERTENSION SIBLINGS: NO KNOWN MEDICAL PROBLEMS 1 BROTHER 1 BROTHER(S) - HEALTHY. 6DAUGHTER(S) - HEALTHY. A-FIB/CHADSVASC A-FIB History Current/History of A-Fib/PAF?: No Review of Systems Constitutional: Denies: Chills, Fever, Night Sweats ENT: Denies: Head Aches, Ear Pain, Dysphagia Skin: Reports: Other (stasis changes on both legs left > right); Denies: Lesions, Breakdown Pulmonary: Denies: Dyspnea, Cough Cardiovascular: Denies: Chest Pain, Palpitations, Orthopnea, Paroxysmal Noc. Dyspnea, Lt Headedness Gastrointestinal: Reports: Vomiting, Abdominal Pain (left lower quadrant.), Diarrhea, Melena Genitourinary: Denies: Dysuria, Frequency, Incontinence, Retention Hematologic: Denies: Bruising, Bleeding Excessively Musculoskeletal: Reports: Leg Pain (bilateral leg pain left > right) Psych: Reports: Anxiety Physical Examination General Exam: Positive: Alert, Cooperative, No Acute Distress Eye Exam: Positive: PERRLA, Conjunctiva & lids normal, EOMI; Negative: Sclera icteric ENT Exam: Positive: Atraumatic, Mucous membr. moist/pink, Pharynx Normal Neck Exam: Positive: Supple; Negative: JVD, thyromegaly Chest Exam: Positive: Normal air movement, Other (bilateral basal crackles.) Heart Exam: Positive: Rate Normal, Regular Rhythm, Normal S1, Normal S2; Negative: Murmurs, Rubs Telemetry: Positive: No significant arrhythmia Abdomen Exam: Positive: Normal bowel sounds, Soft, Other (poor muscle tone with protuberant abdomen); Negative: Tenderness, Hepatospenomegaly Extremity Exam: Positive: Normal pulses; Negative: Clubbing, Cyanosis, Edema Skin Exam: Positive: Nl turgor and temperature; Negative: Breakdown, Lesion Vital Signs Vital Signs Date Time Temp Pulse Resp B/P (MAP) Pulse Ox O2 Delivery O2 Flow Rate FiO2 12/11/19 13:14 98.2 93 18 133/62 (85) 95 Room Air Laboratory Data Labs 24H Laboratory Tests 2 12/11/19 13:10: Immature Granulocyte % (Auto) 0.5, Neutrophils (%) (Auto) 77.0H, Lymphocytes (%) (Auto) 14.0L, Monocytes (%) (Auto) 7.3H, Eosinophils (%) (Auto) 0.8, Basophils (%) (Auto) 0.4, Neutrophils # (Auto) 8.9H, Lymphocytes # (Auto) 1.6, Monocytes # (Auto) 0.8, Eosinophils # (Auto) 0.1, Basophils # (Auto) 0.1, Nucleated Red Blood Cells % (auto) 0.0 12/11/19 13:27: POC Glucose (Misc Panel) 189H, POC Sodium (Misc Panel) 139, POC Potassium (Misc Panel) 3.8, POC Chloride (Misc Panel) 101, POC Total CO2 (Misc Panel) 28.0H, POC Blood Urea Nitrogen (Misc Panel 31H, POC Ionized Calcium (Misc Panel) 4.3L, POC Creatinine (Misc Panel) 0.8, POC Hematocrit (Misc Panel) 22.0L CBC/BMP Laboratory Tests 12/11/19 13:10 Assessment/Plan 84 year old female presented to the ED with 3 days history of liquid black stools and brown colored emesis from last night. She also complained of generalized abdominal pain and bloating and distension. She did have about 2 days of constipation before starting the liquid stools. In the ED she was found to have an Hb of 7.5. Her guaic was positive. She mostly runs about 8.3 to 9.3 range over the past year. She in on asa, plavix. As per EMS record she is also on Xarelto however this is not there in her med reconcilliation done by our pharmacy. She was admitted for GIB and acute on chronic anemia due to blood loss. Acute on chronic anemia due to acute blood loss anemia with iron deficiency and Vit B12 deficiency. will transfuse 2 units. Vit B12 injection x 3 will continue iron supplementation. May give venofer prior to discharge Surgical consult monitor HH. Protonix infusion. GIB probably acute on chronic. Chronic slow GIB is suggested by iron deficiency. EGD and colonoscopy in 2018 and egd in 2019. sigmoid derviticulosis Hiatal hernia, gastroesophageal junction polyp, hemorrhagic gastropathy. Bilateral lower extremity PAD / Carotid artery disease Aortoiliac atherosclerotic arterial occlusive disease. 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 Supposed to go another procedure on the left for 80% blockage. Planned for a bypass procedure with Dr Levine on 12/16/19 will hold asa and plavix today but will have to restart COPD continue advair. and albuterol prn. Coronary artery disease s/p AMI x 2, ASA and plavix held due to GIB. continue coreg and statin when eating po. Gastroesophageal reflux disease on PPI Hyperlipidemia statins held for now. Possible sleep apnea on nocturnal oxygen only , never had a sleep study. Stroke Macular degeneration Chronic CHF Systolic CHF with EF of 50% Severe pulmonary Hypertension RSVP of 74 continue lasix daily Plan / VTE VTE Prophylaxis Ordered?: Yes BRITTANI CHOI MD December 11, 2019 14:00
[2019-12-12] VITALS (12 sets, daily range): BP systolic 96–156; BP diastolic 43–77
[2019-12-12] MEDS: PANTOPRAZOLE SODIUM 40 MG in D5W 50 ML IV SCH ×5 (00:25→20:55)
[2019-12-12 04:22] LABS: HEMATOCRIT 34.7 % (36.0-47.0)
[2019-12-12 04:27] LABS: HEMOGLOBIN 11.8 g/dl (12.0-15.5)
[2019-12-12 06:37] LABS: BASO # 0.1 10^3/uL (0.0-0.2); BASO % 0.6 % (0.0-1.0); EOS # 0.1 10^3/uL (0.0-0.5); EOS % 1.3 % (0.0-3.0); HEMATOCRIT 31.4 % (36.0-47.0); HEMOGLOBIN 10.9 g/dl (12.0-15.5); LYMPH # 1.9 10^3/uL (1.5-5.0); LYMPH % 17.6 % (24.0-44.0); MEAN CORPUSCULAR HEMOGLOBIN 31.5 pg (27.0-33.0); MEAN CORPUSCULAR HGB CONC 34.7 g/dl (32.0-36.5); MEAN CORPUSCULAR VOLUME 90.8 fl (80.0-96.0); MONO # 1.1 10^3/uL (0.0-0.8); MONO % 10.2 % (0.0-5.0); NEUTROPHILS # 7.5 10^3/uL (1.5-8.5); NEUTROPHILS % 69.9 % (36.0-66.0); PLATELET COUNT, AUTOMATED 178 10^3/uL (150-450); RED BLOOD COUNT 3.46 10^6/uL (4.00-5.40); WHITE BLOOD COUNT 10.7 10^3/uL (4.0-10.0)
[2019-12-12 07:02] LABS: CALCIUM LEVEL 8.4 MG/DL (8.8-10.2); CREATININE FOR GFR 1.03 MG/DL (0.55-1.30); GLOMERULAR FILTRATION RATE 54.5 (>32); POTASSIUM SERUM 3.2 MEQ/L (3.5-5.1)
[2019-12-12] MEDS: ADVAIR HFA 115/21MCG INHALER INH SCH ×2 (07:07→19:35)
[2019-12-12] MEDS: SUCRALFATE SUSP 1GM/10ML UD PO SCH ×3 (08:06→20:55)
[2019-12-12] MEDS: CYANOCOBALAMIN 1,000MCG/ML VIAL (J3420) IM SCH (08:06)
[2019-12-12] MEDS: FUROSEMIDE 20 MG TAB PO SCH (08:10)
[2019-12-12] MEDS: CARVedilol 3.125 MG TAB PO SCH ×2 (08:11→20:56)
[2019-12-12 09:59] LABS: HEMATOCRIT 32.7 % (36.0-47.0); HEMOGLOBIN 10.8 g/dl (12.0-15.5)
--- NOTE | 2019-12-12 11:51 | IPNPDOC ---
Text Note Date of Service The patient was seen on 12/12/19. NOTE Subjective: Feels a little better today. But her stomach still bothers her. No further vomiting or diarrhea. She did report that she had taken a dose fo mild of mag 3 to 4 days ago as she was having constipation and the diarrhea started after that which was dark liquid stools. But worried her most was the she threw up 2 three times brown colored vomitus and on the morning of admission she was in [facility] bathroom sitting int he commode and throwing up and she almost passed out. She has been having off and on problems with indigestion, nausea and days when she would feels very weak and tired and then be ok in couple off days then again will come back in a few days. Physical Exam: Vitals: As below General Exam: Positive: Alert, Cooperative, No Acute Distress Eye Exam: Positive: PERRLA, Conjunctiva & lids normal, EOMI; Negative: Sclera icteric ENT Exam: Positive: Atraumatic, Mucous membr. moist/pink, Pharynx Normal Neck Exam: Positive: Supple; Negative: JVD, thyromegaly Chest Exam: Positive: Normal air movement, Other (bilateral basal crackles.) Heart Exam: Positive: Rate Normal, Regular Rhythm, Normal S1, Normal S2; Negative: Murmurs, Rubs Telemetry: Positive: No significant arrhythmia Abdomen Exam: Positive: Normal bowel sounds, Soft, Other (poor muscle tone with protuberant abdomen); Negative: Tenderness, Hepatospenomegaly Extremity Exam: Positive: Normal pulses; Negative: Clubbing, Cyanosis, Edema Skin Exam: Positive: Nl turgor and temperature; Negative: Breakdown, Lesion 84 year old female presented to the ED with 2 days history of liquid black stools and brown colored emesis from last night. She also complained of generalized abdominal pain and bloating and distension. She did have about 2 days of constipation over the weekend. She did report that she had taken a dose of milk of mag 3 days prior to admission as she was having constipation and the diarrhea started after that which was dark liquid stools. But worried her most was the she threw up 3 times brown colored vomitus and on the morning of admission she was in the bathroom sitting on the commode and throwing up and she almost passed out. In the ED she was found to have an Hb of 7.5. Her guaiac was positive. She mostly runs about 8.3 to 9.3 range over the past year. She in on asa, plavix. As per EMS record she is also on Xarelto however this is not there in her med reconciliation done by our pharmacy. She was admitted for GIB and acute on chronic anemia due to blood loss. Acute on chronic anemia due to acute blood loss anemia with iron deficiency and Vit B12 deficiency. transfused 2 units with appropriate response. Vit B12 injection x 3 then po will continue iron supplementation. May give venofer prior to discharge Planned for EGD today. monitor HH. Protonix infusion. GIB probably acute on chronic. Chronic slow GIB is suggested by iron deficiency. EGD and colonoscopy in 2018 and egd in 2019. sigmoid derviticulosis Hiatal hernia, gastroesophageal junction polyp, hemorrhagic gastropathy. Planned again for EGD. Bilateral lower extremity PAD / Carotid artery disease Aortoiliac atherosclerotic arterial occlusive disease. 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 Supposed to go another procedure on the left for 80% blockage. Planned for a bypass procedure with Dr Levine on 12/16/19 will hold asa and plavix today but will have to restart soon with her stents int eh leg. COPD continue advair. and albuterol prn. Coronary artery disease s/p AMI x 2, ASA and plavix held due to GIB. continue coreg and statin when eating po. Gastroesophageal reflux disease on PPI Hyperlipidemia statins held for now. Possible sleep apnea on nocturnal oxygen only , never had a sleep study. Stroke Macular degeneration Chronic CHF Systolic CHF with EF of 50% Severe pulmonary Hypertension RSVP of 74 continue lasix daily VS,Fishbone, I+O VS, Fishbone, I+O Laboratory Tests 12/11/19 13:10 12/11/19 22:09 12/12/19 04:16 12/12/19 06:24 12/12/19 09:43 Vital Signs Date Time Temp Pulse Resp B/P (MAP) Pulse Ox O2 Delivery O2 Flow Rate FiO2 12/12/19 08:11 86 120/80 12/12/19 06:00 97.4 16 97 Room Air I&O- Last 24 Hours up to 6 AM 12/12/19 06:00 Intake Total 1235 ml Output Total 1350 ml Balance -115 ml BRITTANI CHOI MD December 12, 2019 11:51
--- NOTE | 2019-12-12 12:29 | CR ---
DATE OF CONSULTATION: 12/12/2019 REASON FOR CONSULTATION: Anemia with possible gastrointestinal (GI) bleed. HISTORY OF THE PRESENT ILLNESS: The patient is an 84-year-old woman, who was admitted on 12/11/2019, by Dr. Carlton of the hospitalist service, with a history of some abdominal discomfort with some vomiting. She apparently had noted some dark bowel movements over the last few days, perhaps 3 days. She has a prior history of GI bleed, for which she underwent a colonoscopy and esophagogastroduodenoscopy (EGD) by Dr. Mas back in April of 2018. At that time, she was found to have some inflammatory changes and hemorrhagic mucosa at the gastroesophageal (GE) junction region. A followup EGD in October of 2018 showed a small hiatal hernia and was otherwise normal. She has generally been anemic for quite some time. She had one hematocrit noted at 38 on 09/02/2019, but only 2-1/2 weeks before that her hematocrit was noted to be 27 over a several day period making me believe that the September 02 level is spurious. Prior to that in June of 2019, she did have a hematocrit noted at 33. The patient has not noticed any red rectal bleeding and had no obvious hematemesis. On presentation to the hospital, her hemoglobin was found to be 8 with a hematocrit of 24. Platelet count was normal at 202,000. She was admitted by the hospitalist and has received 2 units of packed red blood cells. This morning her hemoglobin is 11 with a hematocrit of 33. Medications prior to admission include: - Tylenol as needed - aspirin 81 mg by mouth daily - atorvastatin 40 mg at bedtime - carvedilol 3.125 mg twice daily - vitamin D3 - Plavix 75 mg daily - docusate 100 mg by mouth daily - ferrous sulfate 325 mg daily - Lasix 20 mg daily - lisinopril 2.5 mg by mouth at bedtime - nitroglycerin as needed for chest pain, - Protonix 40 mg by mouth daily - potassium chloride 10 mEq by mouth twice daily - Advair 250/50 Diskus one puff inhaled twice daily - tramadol 50 mg by mouth every 8 hours as needed for pain - PreserVision AREDS soft gel capsule daily at bedtime ALLERGIES are reported to PENICILLINS and CIPROFLOXACIN. Surgical history is significant for several coronary stents placed in 2012 and 2015. She has atherosclerotic peripheral vascular disease and has had several stents placed in her lower extremity vessels. She apparently is on the schedule to have some sort of vascular bypass of her left lower extremity coming up this next week in [place]. She has had surgery for a trigger finger and has had some skin lesions removed. She has had bilateral cataract extractions. Medical history is significant for hyperlipidemia. She has a past history of smoking. She has a history of some chronic obstructive pulmonary disease. She has been noted to have iron deficiency in the past. She has atherosclerotic peripheral vascular disease and apparently is having some severe claudication, perhaps even rest pain in her left lower extremity. She reportedly has a carotid artery stenosis and has had a past history of stroke. She has had myocardial infarctions times two or three. Family history is significant for hypertension and cardiac disease in her father. REVIEW OF SYSTEMS: The patient has not had any recent chest pain or palpitations. She denies any cough, wheezing or shortness of breath. She has not noticed any obvious red rectal bleeding but has noted some dark stools as indicated in her history of the present illness. She denies any urinary or musculoskeletal problems other than her left lower extremity pain. Physical exam reveals a pleasant elderly woman lying quietly in the hospital bed. She is alert and appears oriented. Sclerae are anicteric. Skin is warm and dry. Heart exam shows a regular rhythm. The lungs are clear to auscultation though her breath sounds may be somewhat distant. The abdomen is mildly protuberant. She has bowel sounds present. The abdomen is soft and there is no significant tenderness identified. Lower extremities are without edema. LABORATORY STUDIES: Laboratory studies today at 0600 hours show a white count of 11, hemoglobin 11, hematocrit 31, and platelet count of 178,000. Her chemistry profile this morning shows a sodium of 141, potassium 3.2, chloride 103, CO2 of 30, BUN of 37, creatinine 1.0 and a glucose of 155. The patient had an abdominal ultrasound for unclear reasons last evening, which showed cholelithiasis. Gallbladder wall was not thickened and the common bile duct was slightly larger than normal at 9 mm. IMPRESSION: The patient presented with significant anemia and some recent nausea and limited vomiting. She reports having had some dark stools. She does have a history of fairly chronic anemia and some iron deficiency noted at times. RECOMMENDATIONS: At this point, I think it would be reasonable to perform an upper endoscopy on her. I suspect that this may well be unrevealing as to a distinct source for bleeding. Partly the motivation for the study is because she is scheduled for a vascular bypass procedure this next week and I think it is best if we rule out any significant potential source for gastric bleeding during this perioperative period. I counseled the patient regarding the upper endoscopy and she is agreeable. She did have a small amount of clear liquids for breakfast this morning, but I do not believe this will need to delay the procedure unduly.
[2019-12-12] MEDS ORDERED: LIDOCAINE 2% MDV 20ML VIAL As Ordered ONE ×2 (14:36→14:56)
[2019-12-12] MEDS ORDERED: propofoL 200 MG/20 ML VIAL As Ordered ONE ×2 (14:36→14:56)
[2019-12-12] MEDS ORDERED: PHENYLephrine HCL 500 MCG/5 ML (100MCG/ML) SYRINGE (J2370) As Ordered ONE (15:04)
[2019-12-12 16:22] LABS: HEMATOCRIT 29.5 % (36.0-47.0); HEMOGLOBIN 10.1 g/dl (12.0-15.5)
--- NOTE | 2019-12-12 16:31 | ROOR ---
Patient Name: Nguyen Jimenez Procedure Date: 12/12/2019 2:40 PM Date of : 1935 Age: 84 Room: [facility] Gender: Female Note Status: Finalized Procedure: Upper GI endoscopy Indications: Suspected upper gastrointestinal bleeding Providers: Artis Mcguire MD Referring MD: JOJO Murry [id number] Requesting Provider: Medicines: Monitored Anesthesia Care Complications: No immediate complications. Procedure: Pre-Anesthesia Assessment: - Prior to the procedure, a History and Physical was performed, and patient medications and allergies were reviewed. The patient is competent. The risks and benefits of the procedure and the sedation options and risks were discussed with the patient. All questions were answered and informed consent was obtained. Patient identification and proposed procedure were verified by the physician, the nurse and the prom burn off operator in the procedure room. Mental Status Examination: alert and oriented. Airway Examination: normal oropharyngeal airway and neck mobility. Prophylactic Antibiotics: The patient does not require prophylactic antibiotics. Prior Anticoagulants: The patient has taken Plavix (clopidogrel), last dose was 1 day prior to procedure. ASA Grade Assessment: III - A patient with severe systemic disease. After reviewing the risks and benefits, the patient was deemed in satisfactory condition to undergo the procedure. The anesthesia plan was to use monitored anesthesia care (MAC). Immediately prior to administration of medications, the patient was re-assessed for adequacy to receive sedatives. The heart rate, respiratory rate, oxygen saturations, blood pressure, adequacy of pulmonary ventilation, and response to care were monitored throughout the procedure. The physical status of the patient was re-assessed after the procedure. The Endoscope was introduced through the mouth, and advanced to the second part of duodenum. The upper GI endoscopy was accomplished without difficulty. The patient tolerated the procedure well. Findings: The examined esophagus was normal. The Z-line was regular. Red blood was found in the entire examined stomach. Lavage of the area was performed using a moderate amount of normal saline, resulting in clearance with excellent visualization. A Dieulafoy lesion with oozing bleeding and stigmata of recent bleeding was found in the cardia. To stop active bleeding, four hemostatic clips were successfully placed (MR conditional). There was no bleeding at the end of the procedure. Multiple small sessile polyps with no bleeding and no stigmata of recent bleeding were found in the gastric fundus and in the gastric body. The first portion of the duodenum and second portion of the duodenum were normal. Impression: - Normal esophagus. - Z-line regular. - Red blood in the entire stomach. - Dieulafoy lesion of stomach. - Multiple gastric polyps. - Normal first portion of the duodenum and second portion of the duodenum. - No specimens collected. Recommendation: - Return patient to [facility] for ongoing care. - Clear liquid diet. - Continue present medications. Artis Mcguire MD Artis Mcguire MD 12/12/2019 4:30:51 PM Electronically signed by Artis Mcguire MD Number of Addenda: 0 Note Initiated On: 12/12/2019 2:40 PM Estimated Blood Loss: Estimated blood loss: none.
[2019-12-12] MEDS ORDERED: POTASSIUM CHLORIDE 10 MEQ SR TABLET PO ONE (21:00)
[2019-12-12 22:02] LABS: HEMATOCRIT 27.2 % (36.0-47.0); HEMOGLOBIN 9.1 g/dl (12.0-15.5)
[2019-12-13 00:45] VITALS: BP 105/39
[2019-12-13] MEDS: PANTOPRAZOLE SODIUM 40 MG in D5W 50 ML IV SCH ×2 (02:00→07:11)
[2019-12-13 04:05] LABS: BASO # 0.1 10^3/uL (0.0-0.2); BASO % 0.4 % (0.0-1.0); EOS # 0.1 10^3/uL (0.0-0.5); EOS % 0.5 % (0.0-3.0); HEMATOCRIT 29.6 % (36.0-47.0); HEMOGLOBIN 9.6 g/dl (12.0-15.5); LYMPH # 2.9 10^3/uL (1.5-5.0); LYMPH % 21.9 % (24.0-44.0); MEAN CORPUSCULAR HEMOGLOBIN 30.1 pg (27.0-33.0); MEAN CORPUSCULAR HGB CONC 32.4 g/dl (32.0-36.5); MEAN CORPUSCULAR VOLUME 92.8 fl (80.0-96.0); MONO # 1.5 10^3/uL (0.0-0.8); MONO % 11.3 % (0.0-5.0); NEUTROPHILS # 8.7 10^3/uL (1.5-8.5); NEUTROPHILS % 65.5 % (36.0-66.0); PLATELET COUNT, AUTOMATED 206 10^3/uL (150-450); RED BLOOD COUNT 3.19 10^6/uL (4.00-5.40); WHITE BLOOD COUNT 13.4 10^3/uL (4.0-10.0)
[2019-12-13 04:37] LABS: CALCIUM LEVEL 8.6 MG/DL (8.8-10.2); CREATININE FOR GFR 1.13 MG/DL (0.55-1.30)
[2019-12-13 04:45] VITALS: BP 117/39
[2019-12-13] MEDS: SUCRALFATE SUSP 1GM/10ML UD PO SCH (07:11)
[2019-12-13] MEDS: ADVAIR HFA 115/21MCG INHALER INH SCH ×2 (07:12→19:44)
[2019-12-13 08:45] VITALS: BP 127/58
[2019-12-13] MEDS: CYANOCOBALAMIN 1,000MCG/ML VIAL (J3420) IM SCH (08:55)
[2019-12-13] MEDS: FUROSEMIDE 20 MG TAB PO SCH (08:55)
[2019-12-13] MEDS: CARVedilol 3.125 MG TAB PO SCH ×2 (08:56→20:47)
[2019-12-13] MEDS: PANTOPRAZOLE 40MG TAB (PROTONIX) PO SCH (09:48)
[2019-12-13] MEDS: FERROUS SULFATE 325MG TAB PO SCH (11:03)
[2019-12-13] MEDS: CLOPIDOGREL 75 MG TAB PO SCH (11:03)
[2019-12-13] MEDS: ASPIRIN 81 MG ENTERIC TAB PO SCH (11:03)
--- NOTE | 2019-12-13 13:13 | IPNPDOC ---
Text Note Date of Service The patient was seen on 12/13/19. NOTE Subjective: Feels a little better today. But her stomach still bothers her. No further vomiting or diarrhea. She did report that she had taken a dose fo mild of mag 3 to 4 days ago as she was having constipation and the diarrhea started after that which was dark liquid stools. But worried her most was the she threw up 2 three times brown colored vomitus and on the morning of admission she was in [facility] bathroom sitting int he commode and throwing up and she almost passed out. She has been having off and on problems with indigestion, nausea and days when she would feels very weak and tired and then be ok in couple off days then again will come back in a few days. Physical Exam: Vitals: As below General Exam: Positive: Alert, Cooperative, No Acute Distress Eye Exam: Positive: PERRLA, Conjunctiva & lids normal, EOMI; Negative: Sclera icteric ENT Exam: Positive: Atraumatic, Mucous membr. moist/pink, Pharynx Normal Neck Exam: Positive: Supple; Negative: JVD, thyromegaly Chest Exam: Positive: Normal air movement, Other (bilateral basal crackles.) Heart Exam: Positive: Rate Normal, Regular Rhythm, Normal S1, Normal S2; Negative: Murmurs, Rubs Telemetry: Positive: No significant arrhythmia Abdomen Exam: Positive: Normal bowel sounds, Soft, Other (poor muscle tone with protuberant abdomen); Negative: Tenderness, Hepatospenomegaly Extremity Exam: Positive: Normal pulses; Negative: Clubbing, Cyanosis, Edema Skin Exam: Positive: Nl turgor and temperature; Negative: Breakdown, Lesion 84 year old female presented to the ED with 2 days history of liquid black stools and brown colored emesis from last night. She also complained of generalized abdominal pain and bloating and distension. She did have about 2 days of constipation over the weekend. She did report that she had taken a dose of milk of mag 3 days prior to admission as she was having constipation and the diarrhea started after that which was dark liquid stools. But worried her most was the she threw up 3 times brown colored vomitus and on the morning of admission she was in the bathroom sitting on the commode and throwing up and she almost passed out. In the ED she was found to have an Hb of 7.5. Her guaiac was positive. She mostly runs about 8.3 to 9.3 range over the past year. She in on asa, plavix. As per EMS record she is also on Xarelto however this is not there in her med reconciliation done by our pharmacy. She was admitted for GIB and acute on chronic anemia due to blood loss. Acute on chronic anemia due to acute blood loss anemia due to GIB with iron deficiency and Vit B12 deficiency. transfused 2 units with appropriate response. Vit B12 injection x 3 then po will continue iron supplementation. monitor HH GIB probably acute on chronic. Chronic slow GIB is suggested by iron deficiency. EGD and colonoscopy in 2018 diverticulosis and polyps. EGD on 12/12/19Z-line regular. - Red blood in the entire stomach. - Dieulafoy lesion of stomach clipped - Multiple gastric polyps. - Normal first portion of the duodenum and second portion of the duodenum. Continue PPI home dosage, stop sucralfate, advance diet Hypokalemia replaced. Bilateral lower extremity PAD / Carotid artery disease Aortoiliac atherosclerotic arterial occlusive disease. 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 Supposed to go another procedure on the left for 80% blockage. Planned for a bypass procedure with Dr Levine on 12/16/19 will hold asa and plavix today but will have to restart soon with her stents int eh leg. COPD continue advair. and albuterol prn. Coronary artery disease s/p AMI x 2, ASA and plavix held due to GIB. continue coreg and statin when eating po. Gastroesophageal reflux disease on PPI Hyperlipidemia statins held for now. Possible sleep apnea on nocturnal oxygen only , never had a sleep study. Stroke Macular degeneration Chronic CHF Systolic CHF with EF of 50% Severe pulmonary Hypertension RSVP of 74 continue lasix daily VS,Fishbone, I+O VS, Fishbone, I+O Laboratory Tests 12/12/19 16:05 12/12/19 21:58 12/13/19 03:55 12/13/19 03:57 Vital Signs Date Time Temp Pulse Resp B/P (MAP) Pulse Ox O2 Delivery O2 Flow Rate FiO2 12/13/19 08:56 101 127/58 12/13/19 08:45 97.1 18 96 Room Air I&O- Last 24 Hours up to 6 AM 12/13/19 06:00 Intake Total 550 ml Output Total 1320 ml Balance -770 ml BRITTANI CHOI MD December 13, 2019 13:13
[2019-12-13] MEDS ORDERED: POTASSIUM CHLORIDE 10 MEQ SR TABLET PO ONE (13:15)
[2019-12-13 17:13] LABS: BASO % 0.3 % (0.0-1.0); EOS % 0.3 % (0.0-3.0); HEMATOCRIT 29.4 % (36.0-47.0); HEMOGLOBIN 9.5 g/dl (12.0-15.5); LYMPH # 2.6 10^3/uL (1.5-5.0); LYMPH % 18.4 % (24.0-44.0); MEAN CORPUSCULAR HEMOGLOBIN 30.6 pg (27.0-33.0); MEAN CORPUSCULAR HGB CONC 32.3 g/dl (32.0-36.5); MEAN CORPUSCULAR VOLUME 94.8 fl (80.0-96.0); MONO # 1.4 10^3/uL (0.0-0.8); MONO % 9.8 % (0.0-5.0); NEUTROPHILS # 10.1 10^3/uL (1.5-8.5); NEUTROPHILS % 70.8 % (36.0-66.0); PLATELET COUNT, AUTOMATED 210 10^3/uL (150-450); WHITE BLOOD COUNT 14.2 10^3/uL (4.0-10.0)
[2019-12-13] MEDS: ATORVASTATIN 20 MG TAB PO SCH (20:47)
[2019-12-13 22:00] VITALS: BP 138/62
--- NOTE | 2019-12-13 22:30 | IPN ---
DATE: 12/13/2019 HISTORY: The patient was admitted on the 12/11/2019 with a history of some abdominal discomfort with vomiting and some dark bowel movements. At endoscopy yesterday, she was found to have a punctate bleeding point in the cardia of the stomach consistent with a Dieulafoy lesion. Hemostatic clips were applied with cessation of bleeding. She has had no evidence of further bleeding since it has had no further bowel movements since her endoscopy. Vital signs: Show that she has been afebrile since yesterday with a pulse in the 80s to as high as the low 100s. Her blood pressure has been acceptable. Intake and output show that yesterday she had 1000 mL recorded in with 2400 out. PHYSICAL EXAMINATION: The patient is alert and oriented. She denies any abdominal pain today. The abdomen is mildly full but soft and nontender. Laboratory studies this morning show a white count of 13, hemoglobin of 10, hematocrit of 30, and platelet count of 206,000. Her differential count is nearly normal. Chemistry profile shows a sodium of 143, potassium 3.0, chloride 105, CO2 of 29, BUN of 37, creatinine of 1.1 and a glucose of 156. IMPRESSION: The patient appears to be doing well with no evidence of any ongoing bleeding. Her hematocrit is fairly stable after 2 units of packed red blood cells. PLAN: I spoke with Dr. Carlton this morning about restarting the aspirin and Plavix, and as the hemostatic clips should have addressed her bleeding source, I see no reason not to begin her antiplatelet agents for her severe coronary and atherosclerotic peripheral vascular disease. I advanced her diet to regular and put her back on just a daily dose of Protonix. She can be discharged when it is clear that she is having no further bleeding and her medical issues are stable. Dr. Mas will be covering for the next 2 days over the weekend in the event that there are any issues to be addressed.
[2019-12-14] VITALS (9 sets, daily range): BP systolic 98–120; BP diastolic 44–56
[2019-12-14 06:55] LABS: BASO % 0.5 % (0.0-1.0); EOS # 0.1 10^3/uL (0.0-0.5); EOS % 1.7 % (0.0-3.0); HEMATOCRIT 25.7 % (36.0-47.0); HEMOGLOBIN 8.2 g/dl (12.0-15.5); LYMPH # 1.6 10^3/uL (1.5-5.0); LYMPH % 20.6 % (24.0-44.0); MEAN CORPUSCULAR HEMOGLOBIN 30.7 pg (27.0-33.0); MEAN CORPUSCULAR HGB CONC 31.9 g/dl (32.0-36.5); MEAN CORPUSCULAR VOLUME 96.3 fl (80.0-96.0); MONO # 0.9 10^3/uL (0.0-0.8); NEUTROPHILS # 5.1 10^3/uL (1.5-8.5); NEUTROPHILS % 65.8 % (36.0-66.0); PLATELET COUNT, AUTOMATED 174 10^3/uL (150-450); RED BLOOD COUNT 2.67 10^6/uL (4.00-5.40); WHITE BLOOD COUNT 7.7 10^3/uL (4.0-10.0)
[2019-12-14 07:13] LABS: BLOOD UREA NITROGEN 26 MG/DL (7-18); CALCIUM LEVEL 8.4 MG/DL (8.8-10.2); CARBON DIOXIDE LEVEL 30 MEQ/L (21-32); CHLORIDE LEVEL 109 MEQ/L (98-107); CREATININE FOR GFR 0.88 MG/DL (0.55-1.30); GLOMERULAR FILTRATION RATE > 60.0 (>32); GLUCOSE, FASTING 144 MG/DL (70-100); POTASSIUM SERUM 3.6 MEQ/L (3.5-5.1); SODIUM LEVEL 146 MEQ/L (136-145)
[2019-12-14] MEDS: ADVAIR HFA 115/21MCG INHALER INH SCH ×2 (07:38→19:48)
[2019-12-14] MEDS: CYANOCOBALAMIN 1,000MCG/ML VIAL (J3420) IM SCH (10:45)
[2019-12-14] MEDS: FERROUS SULFATE 325MG TAB PO SCH (10:46)
[2019-12-14] MEDS: ASPIRIN 81 MG ENTERIC TAB PO SCH (10:46)
[2019-12-14] MEDS: PANTOPRAZOLE 40MG TAB (PROTONIX) PO SCH (10:46)
[2019-12-14] MEDS: CLOPIDOGREL 75 MG TAB PO SCH (10:46)
[2019-12-14] MEDS: POTASSIUM CHLORIDE 10 MEQ SR TABLET PO SCH (10:46)
[2019-12-14] MEDS: FUROSEMIDE 20 MG TAB PO SCH (10:47)
[2019-12-14] MEDS: CARVedilol 3.125 MG TAB PO SCH ×2 (10:52→21:00)
[2019-12-14 12:03] LABS: BASO % 0.3 % (0.0-1.0); EOS # 0.1 10^3/uL (0.0-0.5); EOS % 1.1 % (0.0-3.0); HEMATOCRIT 26.3 % (36.0-47.0); HEMOGLOBIN 8.4 g/dl (12.0-15.5); LYMPH # 1.7 10^3/uL (1.5-5.0); LYMPH % 18.7 % (24.0-44.0); MEAN CORPUSCULAR HEMOGLOBIN 30.8 pg (27.0-33.0); MEAN CORPUSCULAR HGB CONC 31.9 g/dl (32.0-36.5); MEAN CORPUSCULAR VOLUME 96.3 fl (80.0-96.0); MONO # 0.8 10^3/uL (0.0-0.8); NEUTROPHILS # 6.4 10^3/uL (1.5-8.5); NEUTROPHILS % 70.6 % (36.0-66.0); PLATELET COUNT, AUTOMATED 176 10^3/uL (150-450); RED BLOOD COUNT 2.73 10^6/uL (4.00-5.40); WHITE BLOOD COUNT 9.1 10^3/uL (4.0-10.0)
[2019-12-14] MEDS: NORCO, ANEXSIA 5/325MG TABLET (HYDROcodone/ACETAMINOPHEN) PO PRN ×3 (14:30→21:27)
[2019-12-14] MEDS: ATORVASTATIN 20 MG TAB PO SCH (21:12)
[2019-12-15 06:00] VITALS: BP 105/42
[2019-12-15 06:45] LABS: BASO # 0.1 10^3/uL (0.0-0.2); BASO % 0.7 % (0.0-1.0); EOS # 0.3 10^3/uL (0.0-0.5); HEMATOCRIT 31.5 % (36.0-47.0); HEMOGLOBIN 10.1 g/dl (12.0-15.5); LYMPH # 1.8 10^3/uL (1.5-5.0); LYMPH % 26.2 % (24.0-44.0); MEAN CORPUSCULAR HEMOGLOBIN 30.5 pg (27.0-33.0); MEAN CORPUSCULAR HGB CONC 32.1 g/dl (32.0-36.5); MEAN CORPUSCULAR VOLUME 95.2 fl (80.0-96.0); MONO # 0.7 10^3/uL (0.0-0.8); NEUTROPHILS # 3.9 10^3/uL (1.5-8.5); PLATELET COUNT, AUTOMATED 180 10^3/uL (150-450); RED BLOOD COUNT 3.31 10^6/uL (4.00-5.40); WHITE BLOOD COUNT 6.7 10^3/uL (4.0-10.0)
[2019-12-15 07:08] LABS: CALCIUM LEVEL 8.3 MG/DL (8.8-10.2); CREATININE FOR GFR 0.96 MG/DL (0.55-1.30); GLOMERULAR FILTRATION RATE 59.1 (>32); POTASSIUM SERUM 3.7 MEQ/L (3.5-5.1)
[2019-12-15] MEDS: ADVAIR HFA 115/21MCG INHALER INH SCH (07:44)
[2019-12-15] MEDS: CLOPIDOGREL 75 MG TAB PO SCH (09:01)
[2019-12-15] MEDS: ASPIRIN 81 MG ENTERIC TAB PO SCH (09:01)
[2019-12-15] MEDS: PANTOPRAZOLE 40MG TAB (PROTONIX) PO SCH (09:01)
[2019-12-15] MEDS: POTASSIUM CHLORIDE 10 MEQ SR TABLET PO SCH (09:01)
[2019-12-15] MEDS: FUROSEMIDE 20 MG TAB PO SCH (09:01)
[2019-12-15] MEDS: FERROUS SULFATE 325MG TAB PO SCH (09:01)
[2019-12-15 09:04] VITALS: BP 110/56
[2019-12-15] MEDS: CARVedilol 3.125 MG TAB PO SCH (09:04)
[2019-12-15] MEDS ORDERED: HYDR-3715 PO (10:24)
[2019-12-15] MEDS: NORCO, ANEXSIA 5/325MG TABLET (HYDROcodone/ACETAMINOPHEN) PO PRN (12:08)
[2019-12-15 12:11] LABS: HEMATOCRIT 33.9 % (36.0-47.0); HEMOGLOBIN 10.9 g/dl (12.0-15.5)
--- NOTE | 2019-12-15 12:42 | IPNPDOC ---
Text Note Date of Service The patient was seen on 12/14/19. NOTE Subjective: Feels good, no nausea or vomiting. Denies any abdominal pain. No juan luis. Complains of pain and paraesthesias in left leg. Physical Exam: Vitals: As below General Exam: Positive: Alert, Cooperative, No Acute Distress Eye Exam: Positive: PERRLA, Conjunctiva & lids normal, EOMI; Negative: Sclera icteric ENT Exam: Positive: Atraumatic, Mucous membr. moist/pink, Pharynx Normal Neck Exam: Positive: Supple; Negative: JVD, thyromegaly Chest Exam: Positive: Normal air movement, Other (bilateral basal crackles.) Heart Exam: Positive: Rate Normal, Regular Rhythm, Normal S1, Normal S2; Negative: Murmurs, Rubs Telemetry: Positive: No significant arrhythmia Abdomen Exam: Positive: Normal bowel sounds, Soft, Other (poor muscle tone with protuberant abdomen); Negative: Tenderness, Hepatospenomegaly Extremity Exam: Positive: Normal pulses; Negative: Clubbing, Cyanosis, Edema Skin Exam: Positive: Nl turgor and temperature; Negative: Breakdown, Lesion 84 year old female presented to the ED with 2 days history of liquid black stools and brown colored emesis from last night. She also complained of generalized abdominal pain and bloating and distension. She did have about 2 days of constipation over the weekend. She did report that she had taken a dose of milk of mag 3 days prior to admission as she was having constipation and the diarrhea started after that which was dark liquid stools. But worried her most was the she threw up 3 times brown colored vomitus and on the morning of admission she was in the bathroom sitting on the commode and throwing up and she almost passed out. In the ED she was found to have an Hb of 7.5. Her guaiac was positive. She mostly runs about 8.3 to 9.3 range over the past year. She in on asa, plavix. As per EMS record she is also on Xarelto however this is not there in her med reconciliation done by our pharmacy. She was admitted for GIB and acute on chronic anemia due to blood loss. Acute on chronic anemia due to acute blood loss anemia due to GIB with iron deficiency and Vit B12 deficiency. transfused 2 units with appropriate response. Vit B12 injection x 3 then po will continue iron supplementation. monitor HH GIB probably acute on chronic. Chronic slow GIB is suggested by iron deficiency. EGD and colonoscopy in 2018 diverticulosis and polyps. EGD on 12/12/19Z-line regular. - Red blood in the entire stomach. - Dieulafoy lesion of stomach clipped - Multiple gastric polyps. - Normal first portion of the duodenum and second portion of the duodenum. Continue PPI home dosage, stop sucralfate, advance diet Hypokalemia replaced. Bilateral lower extremity PAD / Carotid artery disease Aortoiliac atherosclerotic arterial occlusive disease. Femoral-popliteal atherosclerotic arterial occlusive disease s/p stents bilaterally. Supposed to go another procedure on the left for 80% blockage. Planned for a bypass procedure with Dr Levine on 12/16/19 continue asa and pavix. continues to have pain and paraesthesia mostly in the left leg. COPD continue advair. and albuterol prn. Coronary artery disease s/p AMI x 2, ASA and plavix held due to GIB. continue coreg and statin when eating po. Gastroesophageal reflux disease on PPI Hyperlipidemia statins held for now. Possible sleep apnea on nocturnal oxygen only , never had a sleep study. Stroke Macular degeneration Chronic CHF Systolic CHF with EF of 50% Severe pulmonary Hypertension RSVP of 74 continue lasix daily : VS,Fishbone, I+O VS, Fishbone, I+O Laboratory Tests 12/13/19 16:46 12/14/19 05:42 12/14/19 11:48 Vital Signs Date Time Temp Pulse Resp B/P (MAP) Pulse Ox O2 Delivery O2 Flow Rate FiO2 12/14/19 10:52 103 102/50 12/14/19 06:00 98.0 16 95 Room Air I&O- Last 24 Hours up to 6 AM 12/14/19 06:00 Intake Total 1160 ml Output Total 1500 ml Balance -340 ml BRITTANI CHOI MD December 14, 2019 14:29
[2019-12-15] MEDS ORDERED: B-12100021 PO (12:46)
--- NOTE | 2019-12-15 12:53 | DS.PDOC ---
Discharge Summary General Date of Admission December 11, 2019 at 14:23 Date of Discharge 12/15/19 Discharge Summary PROCEDURES PERFORMED DURING STAY: EGD:12/12/19: -Z-line regular. - Red blood in the entire stomach. - Dieulafoy lesion of stomach clipped - Multiple gastric polyps. - Normal first portion of the duodenum and second portion of the duodenum. DISCHARGE DIAGNOSES: GIB due to Dieulafoy lesion in stomach clipped Gastric polyps Acute blood loss anemia Acute on chronic anemia Iron deficiency Vit B12 deficiency Hypokalemia Severe life style limiting claudication pain of the left leg. SECONDARY DIAGNOSIS: PAD including: Aortoiliac atherosclerotic arterial occlusive disease. 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 Supposed to go another procedure on the left for 80% blockage. Carotid artery stenosis, COPD, Coronary artery disease s/p AMI x 2, gastroesophageal reflux disease H/O GIB in 2018 from gastroesophageal junction Hemorrhagic gastropathy Sigmoid Diverticulosis colonic polyps hyperlipidemia Possible sleep apnea on nocturnal oxygen only , never had a sleep study. History of tobacco use. Stroke Macular degeneration Systolic CHF with EF of 50% Severe pulmonary Hypertension RSVP of 74 CARDIAC STENT 09/2012 CARDIAC STENT 10/2016 FEMORAL ARTERY STENTS 07/2018 BILAT. CATARACT EXTRACTIONS COMPLICATIONS/CHIEF COMPLAINT: GIB. HISTORY OF PRESENT ILLNESS: ee history and physical HOSPITAL COURSE: 84 year old female presented to the ED with 2 days history of liquid black stools and brown colored emesis from last night. She also complained of generalized abdominal pain and bloating and distension. She did have about 2 days of constipation over the weekend. She did report that she had taken a dose of milk of mag 3 days prior to admission as she was having constipation and the diarrhea started after that which was dark liquid stools. But worried her most was the she threw up 3 times brown colored vomitus and on the morning of admission she was in the bathroom sitting on the commode and throwing up and she almost passed out. In the ED she was found to have an Hb of 7.5. Her guaiac was positive. She mostly runs about 8.3 to 9.3 range over the past year. She in on asa, plavix. As per EMS record she is also on Xarelto however this is not there in her med reconciliation done by our pharmacy. She was admitted for GIB and acute on chronic anemia due to blood loss. Acute on chronic anemia due to acute blood loss anemia due to GIB with iron deficiency and Vit B12 deficiency. transfused 2 units with appropriate response. Vit B12 injection x 3 then po will continue iron supplementation. GIB probably acute on chronic. Chronic slow GIB is suggested by iron deficiency. EGD and colonoscopy in 2018 diverticulosis and polyps. EGD on 12/12/19Z-line regular. - Red blood in the entire stomach. - Dieulafoy lesion of stomach clipped - Multiple gastric polyps. - Normal first portion of the duodenum and second portion of the duodenum. Continue PPI home dosage, regular diet Hypokalemia replaced. Bilateral lower extremity PAD / Carotid artery disease Aortoiliac atherosclerotic arterial occlusive disease. Femoral-popliteal atherosclerotic arterial occlusive disease s/p stents bilaterally. Supposed to go another procedure on the left for 80% blockage. Planned for a bypass procedure with Dr Levine on 12/16/19 continue asa and pavix. continues to have pain and paraesthesia mostly in the left leg. COPD continue advair. and albuterol prn. Coronary artery disease s/p AMI x 2, ASA and plavix held due to GIB. continue coreg and statin when eating po. Gastroesophageal reflux disease on PPI Hyperlipidemia statins held for now. Possible sleep apnea on nocturnal oxygen only , never had a sleep study. Stroke Macular degeneration Chronic CHF Systolic CHF with EF of 50% Severe pulmonary Hypertension RSVP of 74 continue lasix daily DISCHARGE MEDICATIONS: Please see below. ALLERGIES: Please see below. PHYSICAL EXAMINATION ON DISCHARGE: VITAL SIGNS: Please see below. General Exam: Positive: Alert, Cooperative, No Acute Distress Eye Exam: Positive: PERRLA, Conjunctiva & lids normal, EOMI; Negative: Sclera icteric ENT Exam: Positive: Atraumatic, Mucous membr. moist/pink, Pharynx Normal Neck Exam: Positive: Supple; Negative: JVD, thyromegaly Chest Exam: Positive: Normal air movement, Other (bilateral basal crackles.) Heart Exam: Positive: Rate Normal, Regular Rhythm, Normal S1, Normal S2; Negative: Murmurs, Rubs Telemetry: Positive: No significant arrhythmia Abdomen Exam: Positive: Normal bowel sounds, Soft, Other (poor muscle tone with protuberant abdomen); Negative: Tenderness, Hepatospenomegaly Extremity Exam: Positive: Normal pulses; Negative: Clubbing, Cyanosis, Edema Skin Exam: Positive: Nl turgor and temperature; Negative: Breakdown, Lesion LABORATORY DATA: Please see below. ACTIVITY: [As tolerated]. DIET: regular DISCHARGE PLAN: Home DISPOSITION: Home DISCHARGE INSTRUCTIONS: PMD in 2 weeks Follow up with Vascular surgeon in [place]. DISCHARGE CONDITION: [Stable]. TIME SPENT ON DISCHARGE: 35 minutes. Vital Signs/I&Os Vital Signs Date Time Temp Pulse Resp B/P (MAP) Pulse Ox O2 Delivery O2 Flow Rate FiO2 12/15/19 12:08 17 Room Air 12/15/19 09:04 100 110/56 12/15/19 06:00 97.9 97 I&O- Last 24 Hours up to 6 AM 12/15/19 06:00 Intake Total 1720 ml Output Total 625 ml Balance 1095 ml Laboratory Data Labs 24H Laboratory Tests 2 12/15/19 06:05: Immature Granulocyte % (Auto) 0.1, Neutrophils (%) (Auto) 59.0, Lymphocytes (%) (Auto) 26.2, Monocytes (%) (Auto) 10.0H, Eosinophils (%) (Auto) 4.0H, Basophils (%) (Auto) 0.7, Neutrophils # (Auto) 3.9, Lymphocytes # (Auto) 1.8, Monocytes # (Auto) 0.7, Eosinophils # (Auto) 0.3, Basophils # (Auto) 0.1, Nucleated Red B lood Cells % (auto) 0.0, Anion Gap 6L, Glomerular Filtration Rate 59.1, Calcium Level 8.3L CBC/BMP Laboratory Tests 12/15/19 06:05 12/15/19 11:40 Discharge Medications Scheduled Aspirin (Aspirin EC) 81 Mg Tabec, 81 MG PO DAILY, (Reported) Atorvastatin Calcium (Atorvastatin Calcium) 40 Mg Tab, 40 MG PO QHS, (Reported) Carvedilol (Carvedilol) 3.125 Mg Tab, 3.125 MG PO BID, (Reported) Cholecalciferol (Vitamin D3) (Vitamin D3) 1,000 Unit Tablet, 1,000 UNITS PO QHS, (Reported) Clopidogrel Bisulfate (Plavix) 75 Mg Tab, 75 MG PO DAILY, (Reported) Docusate Sodium (Docusate Sodium) 100 Mg Capsule, 100 MG PO DAILY, (Reported) Ferrous Sulfate (Ferrous Sulfate) 325 Mg Tablet, 325 MG PO DAILY, (Reported) Furosemide (Furosemide) 20 Mg Tab, 20 MG PO DAILY, (Reported) Lisinopril (Lisinopril) 2.5 Mg Tablet, 2.5 MG PO QHS, (Reported) Pantoprazole Sodium (Pantoprazole Sodium) 40 Mg Tab, 40 MG PO DAILY, (Reported) Potassium Chloride (Klor-Con M10) 10 Meq Tabcr, 10 MEQ PO BID, (Reported) Salmeterol/Fluticasone (Advair 250-50 Diskus) 14 Puff/Inhaler Aerp, 1 PUFF INH BID, (Reported) Vit A/Vit C/Vit E/Zinc/Copper (Preservision Areds Softgel) 1 Cap Cap, 1 CAP PO QHS, (Reported) Scheduled PRN Acetaminophen (Acetaminophen) 325 Mg Tablet, 650 MG PO Q4H PRN for PAIN, (Reported) Hydrocodone/Acetaminophen (Hydrocodone-Acetamin 5-325 mg) 1 Each Tablet, 1 TAB PO BIDP PRN for MILD/MODERATE PAIN (PS 1-7) Nitroglycerin (Nitrostat) 0.4 Mg Tab.subl, 0.4 MG SL NITRO PRN for CHEST PAIN, (Reported) Tramadol HCl (Tramadol HCl) 50 Mg Tablet, 50 MG PO Q8H PRN for PAIN, (Reported) Allergies Coded Allergies: Penicillins (Verified Allergy, Mild, RASH, TONGUE AND FACIAL SWELLING, 08/08/19) ciprofloxacin (Verified Adverse Reaction, Intermediate, TREMORS/ANXIETY/NAUSEA/VOMITING, 08/08/19) BRITTANI CHOI MD December 15, 2019 12:53
== END 2019-12-15 12:55 | disposition home or self-care (01) | DRG 811 ==
LOC: EDBD 12:49 → M ED 12:49 → M ED INP 14:23 → ENRESERV 15:49 → M MSPAV 17:17
PROVIDERS: ADMIT Internal Medicine Nephrology; ATTEND Internal Medicine Nephrology
PROC: 30233N1 Transfusion of Nonautologous Red Blood Cells into Peripheral Vein, Percutaneous Approach (ICD-10-PCS; 2019-12-11)
PROC: 0W3P8ZZ Control Bleeding in Gastrointestinal Tract, Via Natural or Artificial Opening Endoscopic (ICD-10-PCS; principal; 2019-12-12 09:15)
DX: D62 Acute posthemorrhagic anemia (principal); K31.82 Dieulafoy lesion (hemorrhagic) of stomach and duodenum; I50.22 Chronic systolic (congestive) heart failure; D50.9 Iron deficiency anemia, unspecified; K57.30 Diverticulosis of large intestine without perforation or abscess without bleeding; J44.9 Chronic obstructive pulmonary disease, unspecified; I70.212 Atherosclerosis of native arteries of extremities with intermittent claudication, left leg; I65.23 Occlusion and stenosis of bilateral carotid arteries; K21.9 Gastro-esophageal reflux disease without esophagitis; E78.5 Hyperlipidemia, unspecified; Z66 Do not resuscitate; D51.0 Vitamin B12 deficiency anemia due to intrinsic factor deficiency; G47.30 Sleep apnea, unspecified; H35.30 Unspecified macular degeneration; I27.20 Pulmonary hypertension, unspecified; K31.7 Polyp of stomach and duodenum; I25.2 Old myocardial infarction; Z87.19 Personal history of other diseases of the digestive system; Z86.73 Personal history of transient ischemic attack (TIA), and cerebral infarction without residual deficits; Z87.891 Personal history of nicotine dependence; Z79.82 Long term (current) use of aspirin; Z79.899 Other long term (current) drug therapy; Z95.5 Presence of coronary angioplasty implant and graft; Z88.0 Allergy status to penicillin; Z88.1 Allergy status to other antibiotic agents; Z79.02 Long term (current) use of antithrombotics/antiplatelets; Z98.41 Cataract extraction status, right eye; Z98.42 Cataract extraction status, left eye

== ENCOUNTER → 2019-12-20 | Outpatient (CLI) | payer MEDICARE ==
[~2019-12-20] MED LIST changes: +B-12100021 PO; +CLOP75TA2; +FERR325T18 PO; +HYDR-3715 PO; +VITAD1000T PO
[2019-12-20 16:38] LABS: ALBUMIN 3.4 GM/DL (3.2-5.2); ALT/SGPT 19 U/L (12-78); BILIRUBIN,TOTAL 0.6 MG/DL (0.2-1.0); BLOOD UREA NITROGEN 14 MG/DL (7-18); CALCIUM LEVEL 8.9 MG/DL (8.8-10.2); CARBON DIOXIDE LEVEL 32 MEQ/L (21-32); CHLORIDE LEVEL 101 MEQ/L (98-107); CREATININE FOR GFR 0.93 MG/DL (0.55-1.30); GLOMERULAR FILTRATION RATE > 60.0 (>32); GLUCOSE, FASTING 204 MG/DL (70-100); POTASSIUM SERUM 4.3 MEQ/L (3.5-5.1); SODIUM LEVEL 140 MEQ/L (136-145); TOTAL PROTEIN 6.2 GM/DL (6.4-8.2)
[2019-12-20 16:44] LABS: BASO % 0.7 % (0.0-1.0); EOS # 0.3 10^3/uL (0.0-0.5); EOS % 5.2 % (0.0-3.0); HEMATOCRIT 36.5 % (36.0-47.0); HEMOGLOBIN 11.2 g/dl (12.0-15.5); LYMPH # 1.7 10^3/uL (1.5-5.0); LYMPH % 28.6 % (24.0-44.0); MEAN CORPUSCULAR HEMOGLOBIN 30.4 pg (27.0-33.0); MEAN CORPUSCULAR HGB CONC 30.7 g/dl (32.0-36.5); MEAN CORPUSCULAR VOLUME 98.9 fl (80.0-96.0); MONO # 0.5 10^3/uL (0.0-0.8); MONO % 8.4 % (0.0-5.0); NEUTROPHILS # 3.4 10^3/uL (1.5-8.5); NEUTROPHILS % 56.8 % (36.0-66.0); PLATELET COUNT, AUTOMATED 265 10^3/uL (150-450); RED BLOOD COUNT 3.69 10^6/uL (4.00-5.40)
[2019-12-20 16:47] LABS: VITAMIN B12 LEVEL 1469 PG/ML (247-911)
== END ==
LOC: M WUC 13:29
PROVIDERS: ATTEND Physician Assistant
DX: K92.2 Gastrointestinal hemorrhage, unspecified (principal); E53.8 Deficiency of other specified B group vitamins; E87.6 Hypokalemia

== ENCOUNTER → 2020-02-12 | Outpatient (REF) | payer MEDICARE ==
[~2020-02-12] MED LIST changes: -ASPI81TA85 PO; +ASPI81TA86 PO; +D31000TA2 PO; -LISI-1034 PO; +LISI2.5T8 PO; +PANT40TA29 PO; -PANT40TA3 PO; +PRED20TA PO; -VITAD1000T PO
[2020-02-12 17:03] LABS: BASO # 0.1 10^3/uL (0.0-0.2); BASO % 0.6 % (0.0-1.0); EOS # 0.4 10^3/uL (0.0-0.5); EOS % 4.2 % (0.0-3.0); HEMATOCRIT 34.4 % (36.0-47.0); HEMOGLOBIN 10.8 g/dl (12.0-15.5); LYMPH # 1.5 10^3/uL (1.5-5.0); LYMPH % 16.7 % (24.0-44.0); MEAN CORPUSCULAR HEMOGLOBIN 31.8 pg (27.0-33.0); MEAN CORPUSCULAR HGB CONC 31.4 g/dl (32.0-36.5); MEAN CORPUSCULAR VOLUME 101.2 fl (80.0-96.0); MONO # 0.9 10^3/uL (0.0-0.8); MONO % 9.7 % (0.0-5.0); NEUTROPHILS % 68.6 % (36.0-66.0); PLATELET COUNT, AUTOMATED 204 10^3/uL (150-450); WHITE BLOOD COUNT 8.8 10^3/uL (4.0-10.0)
[2020-02-12 17:50] LABS: ALBUMIN 3.6 GM/DL (3.2-5.2); ALT/SGPT 13 U/L (12-78); BILIRUBIN,TOTAL 0.5 MG/DL (0.2-1.0); BLOOD UREA NITROGEN 15 MG/DL (7-18); CALCIUM LEVEL 8.7 MG/DL (8.8-10.2); CARBON DIOXIDE LEVEL 30 MEQ/L (21-32); CHLORIDE LEVEL 105 MEQ/L (98-107); CREATININE FOR GFR 0.79 MG/DL (0.55-1.30); GLOMERULAR FILTRATION RATE > 60.0 (>32); GLUCOSE, FASTING 137 MG/DL (70-100); IRON (FE) 184 UG/DL (50-170); POTASSIUM SERUM 4.2 MEQ/L (3.5-5.1); SODIUM LEVEL 141 MEQ/L (136-145); TOTAL PROTEIN 6.7 GM/DL (6.4-8.2)
== END ==
LOC: M SFHCCLAY 09:40
PROVIDERS: ATTEND Physician Assistant
DX: R53.83 Other fatigue (principal); D64.9 Anemia, unspecified

== ENCOUNTER 2020-02-18 19:54 | Emergency (ER) | payer MEDICARE ==
[~2020-02-18] VITALS: Ht 162.6 cm; Wt 55.5 kg
[~2020-02-18 19:54] MED LIST changes: -PRED20TA PO
[2020-02-18 20:29] LABS: BASO # 0.1 10^3/uL (0.0-0.2); BASO % 0.6 % (0.0-1.0); EOS # 0.4 10^3/uL (0.0-0.5); EOS % 4.2 % (0.0-3.0); HEMATOCRIT 36.6 % (36.0-47.0); HEMOGLOBIN 11.7 g/dl (12.0-15.5); LYMPH # 1.9 10^3/uL (1.5-5.0); LYMPH % 21.6 % (24.0-44.0); MEAN CORPUSCULAR HEMOGLOBIN 31.6 pg (27.0-33.0); MEAN CORPUSCULAR VOLUME 98.9 fl (80.0-96.0); MONO # 1.1 10^3/uL (0.0-0.8); NEUTROPHILS # 5.4 10^3/uL (1.5-8.5); NEUTROPHILS % 61.1 % (36.0-66.0); PLATELET COUNT, AUTOMATED 205 10^3/uL (150-450); WHITE BLOOD COUNT 8.9 10^3/uL (4.0-10.0)
[2020-02-18] MEDS ORDERED: IPRATROPIUM 0.5MG/ALBUTEROL 2.5MG INH SOL UD 3ML (DUONEB) NEB ONE (20:45)
[2020-02-18 20:47] LABS: INR 1.29; PROTHROMBIN TIME 15.8 SECONDS (11.8-14.0)
[2020-02-18 20:58] LABS: ALBUMIN 3.9 GM/DL (3.2-5.2); ALT/SGPT 16 U/L (12-78); BILIRUBIN,DIRECT < 0.1 MG/DL (0.0-0.2); BILIRUBIN,TOTAL 0.4 MG/DL (0.2-1.0); LIPASE 183 U/L (73-393); NT-PRO BNP 200 PG/ML (<450); TOTAL PROTEIN 7.3 GM/DL (6.4-8.2)
--- NOTE | 2020-02-18 21:07 | ECGEPIP ---
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
[2020-02-18] MEDS ORDERED: methylPREDNISolone 125MG 2ML VIAL As Ordered ONE (22:04)
[2020-02-18 22:15] VITALS: BP 153/67
[2020-02-18] MEDS ORDERED: methylPREDNISolone 125MG 2ML VIAL IV ONE (22:15)
[2020-02-18] MEDS ORDERED: ALBUTEROL 90 MCG/ACT 8GM HFA INHALER INH ONE (23:00)
[2020-02-18] MEDS ORDERED: PRED20TA PO (23:02)
--- NOTE | 2020-02-19 06:09 | REP ---
CHEST, SINGLE VIEW: Single view of the chest is performed and compared to prior study of 12/11/2019. Stable bibasilar fibroatelectatic changes are seen. There is no acute infiltrate. Heart is normal in size. There is calcification of the thoracic aorta. Mediastinal silhouette is unchanged. IMPRESSION: Stable chronic findings with no acute infiltrate. Electronically Signed by Tariq Zheng MD 02/19/2020 11:15 P
== END 2020-02-18 23:31 | disposition home or self-care (01) ==
LOC: M ED 19:54
DX: J44.1 Chronic obstructive pulmonary disease with (acute) exacerbation (principal); I11.0 Hypertensive heart disease with heart failure; I50.9 Heart failure, unspecified; Z79.51 Long term (current) use of inhaled steroids; Z79.82 Long term (current) use of aspirin; Z79.891 Long term (current) use of opiate analgesic; Z79.899 Other long term (current) drug therapy; Z87.891 Personal history of nicotine dependence; Z88.0 Allergy status to penicillin; Z88.1 Allergy status to other antibiotic agents
CPT/HCPCS: 71045; 80047; 80076; 83690; 83880; 84484; 85025; 85610; 93005; 93041; 94640; 94760; 96374; 99285; J2930

== ENCOUNTER 2020-03-09 11:51 | Emergency (ER) | payer MEDICARE ==
[~2020-03-09 11:51] MED LIST changes: +ONDANSETRON 4 MG ORAL DISINTEGRATING TAB As Ordered ONE; +ONDANSETRON 4 MG ORAL DISINTEGRATING TAB ONE; +PRED20TA PO
--- NOTE | 2020-04-23 14:10 | ECGEPIP ---
SINUS RHYTHM NORMAL ECG NO OLD SEE SCANNED DOWNTIME REPORT MTDD
[2020-04-26 03:46] LABS: BASO # 0.1 10^3/uL (0.0-0.2); BASO % 0.6 % (0.0-1.0); EOS # 0.1 10^3/uL (0.0-0.5); EOS % 1.6 % (0.0-3.0); HEMOGLOBIN 11.9 g/dl (12.0-15.5); LYMPH # 1.6 10^3/uL (1.5-5.0); LYMPH % 17.9 % (24.0-44.0); MEAN CORPUSCULAR HEMOGLOBIN 31.6 pg (27.0-33.0); MEAN CORPUSCULAR HGB CONC 32.2 g/dl (32.0-36.5); MEAN CORPUSCULAR VOLUME 98.4 fl (80.0-96.0); MONO # 0.9 10^3/uL (0.0-0.8); MONO % 10.2 % (0.0-5.0); NEUTROPHILS % 69.5 % (36.0-66.0); PLATELET COUNT, AUTOMATED 205 10^3/uL (150-450); RED BLOOD COUNT 3.76 10^6/uL (4.00-5.40); WHITE BLOOD COUNT 8.6 10^3/uL (4.0-10.0)
[2020-04-26 03:59] LABS: APPEARANCE, URINE CLEAR (CLEAR); BACTERIA, URINE AUTO 1+ (NEGATIVE); BILIRUBIN, URINE AUTO NEGATIVE (NEGATIVE); BLOOD, URINE BLOOD NEGATIVE (NEGATIVE); COLOR, URINE STRAW (YELLOW); GLUCOSE, URINE (UA) AUTO NEGATIVE (NEGATIVE); KETONE, URINE AUTO NEGATIVE (NEGATIVE); LEUKOCYTE ESTERASE, URINE AUTO NEGATIVE (NEGATIVE); MUCUS, URINE SMALL (NEGATIVE); NITRITE, URINE AUTO NEGATIVE (NEGATIVE); PROTEIN, URINE AUTO NEGATIVE (NEGATIVE); RBC, URINE AUTO 1 /HPF (0-3); SPECIFIC GRAVITY URINE AUTO 1.006 (1.002-1.035); SQUAMOUS EPITHELIAL CELL UR AU 3 /HPF (0-6); UROBILINOGEN, URINE AUTO 0.2 mg/dL (0.0-2.0); WBC, URINE AUTO 2 /HPF (0-3)
[2020-05-18 01:20] LABS: BLOOD UREA NITROGEN 15 MG/DL (7-18); CALCIUM LEVEL 9.2 MG/DL (8.8-10.2); CARBON DIOXIDE LEVEL 30 MEQ/L (21-32); CHLORIDE LEVEL 104 MEQ/L (98-107); CK-MB VALUE MASS < 1.0 NG/ML (<3.6); CPK CREATINE PHOSPHOKINASE 32 U/L (26-192); CREATININE FOR GFR 0.78 MG/DL (0.55-1.30); GLOMERULAR FILTRATION RATE > 60.0 (>32); GLUCOSE, FASTING 140 MG/DL (70-100); MB/CK RELATIVE INDEX 3.12 (< OR =4); POTASSIUM SERUM 3.8 MEQ/L (3.5-5.1); SODIUM LEVEL 138 MEQ/L (136-145)
== END 2020-03-09 14:55 | disposition home or self-care (01) ==
LOC: M ED 11:51
DX: J44.0 Chronic obstructive pulmonary disease with (acute) lower respiratory infection (principal); I50.9 Heart failure, unspecified; I25.2 Old myocardial infarction; Z95.5 Presence of coronary angioplasty implant and graft; Z79.899 Other long term (current) drug therapy; Z79.82 Long term (current) use of aspirin; Z79.01 Long term (current) use of anticoagulants; Z88.0 Allergy status to penicillin; Z88.1 Allergy status to other antibiotic agents
CPT/HCPCS: 36415; 71046; 80048; 81001; 82550; 82553; 85025; 87086; 93005; 99284; Q0162

== ENCOUNTER → 2020-03-17 | Outpatient (REF) | payer MEDICARE ==
[~2020-03-17] MED LIST changes: -ONDANSETRON 4 MG ORAL DISINTEGRATING TAB As Ordered ONE; -ONDANSETRON 4 MG ORAL DISINTEGRATING TAB ONE
[2020-04-19 10:54] LABS: BASO # 0.1 10^3/uL (0.0-0.2); BASO % 0.9 % (0.0-1.0); EOS # 0.3 10^3/uL (0.0-0.5); EOS % 3.5 % (0.0-3.0); HEMOGLOBIN 11.4 g/dl (12.0-15.5); LYMPH # 1.7 10^3/uL (1.5-5.0); LYMPH % 21.1 % (24.0-44.0); MEAN CORPUSCULAR HEMOGLOBIN 31.6 pg (27.0-33.0); MEAN CORPUSCULAR HGB CONC 31.7 g/dl (32.0-36.5); MEAN CORPUSCULAR VOLUME 99.7 fl (80.0-96.0); MONO # 0.9 10^3/uL (0.0-0.8); MONO % 11.1 % (0.0-5.0); NEUTROPHILS # 4.9 10^3/uL (1.5-8.5); NEUTROPHILS % 63.1 % (36.0-66.0); PLATELET COUNT, AUTOMATED 241 10^3/uL (150-450); RED BLOOD COUNT 3.61 10^6/uL (4.00-5.40); WHITE BLOOD COUNT 7.8 10^3/uL (4.0-10.0)
[2020-05-12 02:37] LABS: ALBUMIN 3.9 GM/DL (3.2-5.2); ALT/SGPT 14 U/L (12-78); BILIRUBIN,TOTAL 0.3 MG/DL (0.2-1.0); BLOOD UREA NITROGEN 15 MG/DL (7-18); CALCIUM LEVEL 9.4 MG/DL (8.8-10.2); CARBON DIOXIDE LEVEL 30 MEQ/L (21-32); CHLORIDE LEVEL 104 MEQ/L (98-107); CREATININE FOR GFR 0.92 MG/DL (0.55-1.30); FERRITIN 45 NG/ML (8-252); GLOMERULAR FILTRATION RATE > 60.0 (>32); GLUCOSE, FASTING 133 MG/DL (70-100); IRON (FE) 76 UG/DL (50-170); POTASSIUM SERUM 3.8 MEQ/L (3.5-5.1); SODIUM LEVEL 143 MEQ/L (136-145); TOTAL PROTEIN 7.3 GM/DL (6.4-8.2)
== END ==
LOC: M SFHCCLAY 16:47
PROVIDERS: ATTEND Physician Assistant
DX: D50.9 Iron deficiency anemia, unspecified (principal)

== ENCOUNTER → 2020-04-14 | Outpatient (REF) | payer MEDICARE | LOC: M SFHCCLAY 18:31 | PROVIDERS: ATTEND Physician Assistant | DX: D64.9 Anemia, unspecified (principal) ==

== ENCOUNTER → 2020-04-23 | Outpatient (REF) | payer MEDICARE | LOC: M SFHCCLAY 11:22 | PROVIDERS: ATTEND Physician Assistant | DX: L03.115 Cellulitis of right lower limb (principal) ==

== ENCOUNTER 2020-05-11 03:42 | Emergency (ER) | payer MEDICARE ==
[~2020-05-11] VITALS: Ht 162.6 cm; Wt 54.5 kg
[2020-05-11] MEDS ORDERED: OXYMETAZOLINE 0.05% NASAL SPRAY (AFRIN) ONE (04:00)
[2020-05-11 04:31] LABS: BASO # 0.1 10^3/uL (0.0-0.2); BASO % 0.6 % (0.0-1.0); EOS # 0.3 10^3/uL (0.0-0.5); EOS % 2.3 % (0.0-3.0); HEMATOCRIT 31.3 % (36.0-47.0); HEMOGLOBIN 9.6 g/dl (12.0-15.5); LYMPH # 1.5 10^3/uL (1.5-5.0); LYMPH % 12.9 % (24.0-44.0); MEAN CORPUSCULAR HEMOGLOBIN 29.2 pg (27.0-33.0); MEAN CORPUSCULAR HGB CONC 30.7 g/dl (32.0-36.5); MEAN CORPUSCULAR VOLUME 95.1 fl (80.0-96.0); MONO # 0.8 10^3/uL (0.0-0.8); MONO % 6.8 % (0.0-5.0); NEUTROPHILS # 8.9 10^3/uL (1.5-8.5); PLATELET COUNT, AUTOMATED 316 10^3/uL (150-450); RED BLOOD COUNT 3.29 10^6/uL (4.00-5.40); WHITE BLOOD COUNT 11.6 10^3/uL (4.0-10.0)
[2020-05-11 04:44] LABS: INR 1.48; PROTHROMBIN TIME 18.2 SECONDS (12.5-14.3)
[2020-05-11 04:45] LABS: PARTIAL THROMBOPLASTIN TIME 37.8 SECONDS (24.2-38.5)
[2020-05-11 04:59] LABS: BLOOD UREA NITROGEN 16 MG/DL (7-18); CALCIUM LEVEL 8.7 MG/DL (8.8-10.2); CARBON DIOXIDE LEVEL 29 MEQ/L (21-32); CHLORIDE LEVEL 106 MEQ/L (98-107); CREATININE FOR GFR 0.88 MG/DL (0.55-1.30); GLOMERULAR FILTRATION RATE > 60.0 (>32); GLUCOSE, FASTING 166 MG/DL (70-100); POTASSIUM SERUM 4.1 MEQ/L (3.5-5.1); SODIUM LEVEL 141 MEQ/L (136-145)
[2020-05-11 05:45] VITALS: BP 133/60
== END 2020-05-11 05:58 | disposition home or self-care (01) ==
LOC: M ED 03:42
DX: R04.0 Epistaxis (principal); J44.9 Chronic obstructive pulmonary disease, unspecified; Z79.891 Long term (current) use of opiate analgesic; Z79.899 Other long term (current) drug therapy; Z88.0 Allergy status to penicillin; Z88.1 Allergy status to other antibiotic agents

== ENCOUNTER → 2020-05-12 | Outpatient (REF) | payer MEDICARE ==
[2020-05-12 14:08] LABS: APPEARANCE, URINE HAZY (CLEAR); BACTERIA, URINE AUTO NEGATIVE (NEGATIVE); BILIRUBIN, URINE AUTO NEGATIVE (NEGATIVE); BLOOD, URINE BLOOD NEGATIVE (NEGATIVE); COLOR, URINE YELLOW (YELLOW); GLUCOSE, URINE (UA) AUTO NEGATIVE (NEGATIVE); KETONE, URINE AUTO NEGATIVE (NEGATIVE); LEUKOCYTE ESTERASE, URINE AUTO NEGATIVE (NEGATIVE); MUCUS, URINE SMALL (NEGATIVE); NITRITE, URINE AUTO NEGATIVE (NEGATIVE); PROTEIN, URINE AUTO NEGATIVE (NEGATIVE); RBC, URINE AUTO 0 /HPF (0-3); SPECIFIC GRAVITY URINE AUTO 1.008 (1.002-1.035); SQUAMOUS EPITHELIAL CELL UR AU 3 /HPF (0-6); UROBILINOGEN, URINE AUTO 0.2 mg/dL (0.0-2.0); WBC, URINE AUTO 3 /HPF (0-3)
== END ==
LOC: M SFHCCLAY 13:15
PROVIDERS: ATTEND Physician Assistant
DX: R30.0 Dysuria (principal)

== ENCOUNTER → 2020-08-25 | Outpatient (CLI) | payer MEDICARE ==
[~2020-08-25] MED LIST changes: +ACET-838 PO; -LISI-542 PO; +LISI-898 PO; -NON-325T5 PO
--- NOTE | 2020-08-25 10:48 | REP ---
INDICATION: ABN FINDINGS OF LUNG FIELD. COMPARISON: 08/06/2019. TECHNIQUE: CT chest performed without the use of intravenous contrast. Sagittal and coronal reconstruction images are performed. FINDINGS: Lungs: There is mild diffuse interstitial fibrotic change area did no infiltrate or pulmonary nodule is seen. Mediastinum: No gross adenopathy. Rachael: No gross adenopathy. Axilla: No gross adenopathy. Pleura: No effusion. Heart: Not enlarged. Thoracic aorta: No aneurysm. Upper abdominal structures: Grossly unremarkable. Visualized osseous structures: There are degenerative changes of the spine without compression deformity. There is a low-density nodule in both the right lobe as well as the left lobe of the thyroid, unchanged. IMPRESSION: No acute infiltrate, pulmonary nodule or adenopathy. No significant change when compared to prior study. <Electronically signed by Tariq Zheng > 08/25/20 [id number]
== END ==
LOC: M RAD 09:52
PROVIDERS: ATTEND Physician Assistant
DX: R91.8 Other nonspecific abnormal finding of lung field (principal)

== ENCOUNTER → 2020-10-05 | Outpatient (CLI) | payer MEDICARE ==
[~2020-10-05] MED LIST changes: +ASPI-569 PO; -ASPI81TAEC PO
[2020-10-05 18:30] LABS: BLOOD UREA NITROGEN 19 MG/DL (7-18); CREATININE FOR GFR 0.92 MG/DL (0.55-1.30); GLOMERULAR FILTRATION RATE > 60.0 (>32)
== END ==
LOC: M WUC 11:31
PROVIDERS: ATTEND Physician Assistant
DX: I70.222 Atherosclerosis of native arteries of extremities with rest pain, left leg (principal)

== ENCOUNTER → 2020-10-13 | Outpatient (CLI) | payer MEDICARE ==
[~2020-10-13] MED LIST changes: +ISOVUE-370 76% 100ML VIAL As Ordered ONE
--- NOTE | 2020-10-13 16:14 | REP ---
INDICATION: ATHSCL KOTZEBUE ARTERIES OF EXT W/ PAIN, W/KARL LEG RUN OFF COMPARISON: CT abdomen pelvis 08/06/2019. TECHNIQUE: CT angiogram of the abdomen and pelvis was performed with intravenous administration of 100 cc of Isovue 370, without oral contrast. Sagittal and coronal reconstruction images are performed. 3D MIP reconstruction images are performed. FINDINGS: Lung bases: Unremarkable. Liver: Normal Gallbladder: The gallbladder is relatively collapsed and there is a tiny calcification in the gallbladder wall of the fundus. Spleen: Normal. Adrenals: Normal. Pancreas: Normal. Kidneys: Normal. Small and large bowel: There is sigmoid and left colonic diverticulosis without acute diverticulitis. Free fluid: None. Abdominal aorta: No aneurysm or dissection. Adenopathy: None. Appendix: Not inflamed. Osseous structures: There are degenerative changes of the spine without compression deformity.. Pelvis: No mass. A subcutaneous 1.5 cm fluid collection in the anterior proximal right thigh is probably a postsurgical seroma. There is moderate diffuse atherosclerotic calcification and mild narrowing of the abdominal aorta with no aneurysm. There is mild narrowing of the origin of the celiac artery as well as origins of superior and inferior mesenteric arteries. There is no definite significant stenosis of the renal arteries bilaterally. On the right there are patent stents in the common iliac and external iliac arteries. The right common femoral artery is mildly diffusely narrowed. The proximal right superficial femoral artery demonstrates a patent stent. There is a patent crossover graft connecting the proximal superficial femoral arteries bilaterally. There is moderate stenosis at the anastomosis between the crossover graft and stented superficial femoral artery. There is high-grade stenosis of the adjacent more distal superficial femoral artery. There is moderate diffuse narrowing of the remaining distal superficial femoral artery. Large right profunda artery extends into the thigh. There is mild to moderate diffuse narrowing of the right popliteal artery. Trifurcation vessels are patent. The anterior and posterior tibial arteries gradually decreases in caliber as they course distally into the foot. The peroneal artery is visualized to the level of the ankle. On the left there is a patent stent of the common iliac artery. There is moderate diffuse stenosis of the proximal external iliac artery. A stent is seen of the left external iliac artery which demonstrates internal flow in the proximal aspect but is occluded at the distal end. Small collateral vessels surround in occluded common femoral artery. Left superficial femoral artery is also occluded. There is an occluded stent in the superficial femoral artery. There is an adjacent bypass graft which is occluded. That occluded bypass graft appears to connect to the patent crossover graft. The crossover graft terminates at the anastomosis with the occluded proximal left SFA. Collateral vessels are seen feeding the profunda and extending into the thigh as well. More distally there is reconstitution of the popliteal artery just above the knee, just distal to the anastomosis with the occluded bypass graft. The picayune popliteal artery is significantly narrowed diffusely. A thin anterior tibial artery either originates from the popliteal artery above the level of the knee or is fed by a collateral vessel from that location. There also thin patent posterior tibial and peroneal arteries. The peroneal artery is visualized into the distal 3rd of the thigh. The thin anterior and posterior tibial arteries traverse into the foot. IMPRESSION: Patent right common iliac and external iliac artery stents. Patent proximal right superficial femoral artery stent. Crossover graft between the proximal superficial femoral arteries is patent, with moderate stenosis at the anastomosis with the proximal right SFA. The adjacent more distal right SFA demonstrates high-grade stenosis and moderate diffuse narrowing more distally. Moderate diffuse narrowing right popliteal artery with 2 vessel runoff into the right foot. Patent left common iliac artery stent. Moderate diffuse stenosis proximal left external iliac artery. Occluded distal left external iliac artery stent. Occluded left common femoral and superficial femoral arteries, including an occluded stent in the picayune left SFA. There is an occluded left SFA bypass graft as well. Crossover graft flow terminates at the occluded proximal left SFA. Reconstitution of a significantly narrowed picayune left popliteal artery just distal to the anastomosis of the occluded bypass graft. Two vessel runoff into the left foot. <Electronically signed by Tariq Zheng > 10/13/20 [id number]
== END ==
LOC: M RAD 14:22
PROVIDERS: ATTEND Physician Assistant
DX: I70.222 Atherosclerosis of native arteries of extremities with rest pain, left leg (principal); Z95.828 Presence of other vascular implants and grafts
CPT/HCPCS: 75635; Q9967

== ENCOUNTER 2021-02-25 11:28 | Inpatient (IN) | payer MEDICARE ==
[~2021-02-25] VITALS: Ht 162.6 cm; Wt 64.4 kg
[~2021-02-25 11:28] MED LIST changes: -ACET-838 PO; +ACET32TAB PO; +GABA-283 PO; +HYDR-3713 PO; -ISOVUE-370 76% 100ML VIAL As Ordered ONE; +SPIR1CAP INH
[2021-02-25] MEDS ORDERED: ASPIRIN 81 MG CHEW TABLET PO ONE (13:10)
[2021-02-25] MEDS ORDERED: ISOVUE-370 76% 100ML VIAL As Ordered ONE (13:20)
[2021-02-25 13:25] LABS: BASO % 0.2 % (0.0-1.0); EOS % 0.2 % (0.0-3.0); HEMATOCRIT 33.5 % (36.0-47.0); HEMOGLOBIN 10.5 g/dl (12.0-15.5); LYMPH # 0.7 10^3/uL (1.5-5.0); LYMPH % 3.8 % (24.0-44.0); MEAN CORPUSCULAR HEMOGLOBIN 29.7 pg (27.0-33.0); MEAN CORPUSCULAR HGB CONC 31.3 g/dl (32.0-36.5); MEAN CORPUSCULAR VOLUME 94.9 fl (80.0-96.0); MONO % 5.8 % (2.0-8.0); NEUTROPHILS # 15.5 10^3/uL (1.5-8.5); NEUTROPHILS % 89.4 % (36.0-66.0); PLATELET COUNT, AUTOMATED 202 10^3/uL (150-450); RED BLOOD COUNT 3.53 10^6/uL (4.00-5.40); WHITE BLOOD COUNT 17.3 10^3/uL (4.0-10.0)
[2021-02-25] MEDS ORDERED: SPIR12.9 INH (13:30)
[2021-02-25] MEDS ORDERED: GABA-1171 PO (13:30)
[2021-02-25] MEDS ORDERED: AZIT-12 PO (13:30)
--- NOTE | 2021-02-25 13:58 | REP ---
INDICATION: left sided abdominal pain, left inguinal ? abscess. Indication COMPARISON: None. TECHNIQUE: CT BRAIN PERFORMED IN THE AXIAL PLANE. CORONAL RECONSTRUCTION IMAGES ARE PERFORMED. FINDINGS: Lateral ventricles are midline, symmetric, mildly dilated and proportionate to the diffuse cerebral atrophy. All this is age-appropriate and with some minimal progression in the dilatation of those lateral ventricles since 2017. Third and 4th ventricles are also proportionate in size atrophy is greatest in the temporal lobes but is present throughout. Basal ganglia are symmetric. There heterogeneous low-attenuation white matter changes bilaterally consistent with small vessel ischemic disease. See no vascular territory infarct, intra or extra-axial hemorrhage, mass or mass effect. The arguelles-white junction is maintained. Brainstem unremarkable. Cerebellum shows no definite mass or posterior fossa hemorrhage. Basal cisterns are grossly intact. There are heavy vascular calcifications in the carotid siphons. Mastoids show symmetric aeration. There is a large mucous retention cyst in the right maxillary antrum as seen on previous study the visualized portion of the left maxillary sinus, anterior ethmoids and sphenoid air cells are clear. The frontal sinuses are not present as a developmental variant. The skull base and calvarium show no fracture or focal lesion IMPRESSION: Ventriculomegaly in proportion to the diffuse cerebral atrophy, age-appropriate. Some progression over the last 4 years but no acute infarct, intracranial hemorrhage, mass, mass effect or edema. Chronic small vessel white matter ischemic changes. Atherosclerotic calcifications in the carotid siphons as before. Mastoids and sinuses are clear except for a prominent mucous retention cyst in the right maxillary antrum. Skull base and calvarium unremarkable <Electronically signed by Jarvis Bonner > 02/25/21 [id number]
--- NOTE | 2021-02-25 14:19 | REP ---
INDICATION: left sided abdominal pain, left inguinal ? abscess. COMPARISON: Comparison study is from October 13, 2020.. TECHNIQUE: Helical scanning is acquired and 3 mm axial images re-formatted. Coronal and sagittal MPR images are generated. The CT contrast enhancement dose is 100 mL of intravenous Isovue 370. 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 There is minimal linear fibrosis in the left lung base. No pleural effusion is seen. There is a mild diffuse fatty infiltration of the liver. A small calcified gallstone is seen in the gallbladder. There is minimal gallbladder wall thickening. Kidneys enhance symmetrically and are morphologically intact. No pancreatic lesion is seen. Normal adrenal glands are observed. The spleen is unremarkable. Heavy vascular calcification is observed. There is left colonic diverticulosis without CT evidence of diverticulitis. Urinary bladder, uterus, and adnexal regions are unremarkable. Bilateral iliac stents are noted as on October 13, 2020 study. There is a patent fem-fem crossover graft in the suprapubic soft tissues. There is an occluded limb of the graft from the left groin extending caudally anterior to the stented superficial femoral artery. This occluded graft limb contains a bubble of air and there is a bubble of air immediately adjacent to it. There is some induration and dermal thickening surrounding this air containing limb of the graft. No abscess cavity is appreciated. The graft limb was noted to be occluded on October 13, 2020 but the induration and the air bubbles are new findings. No abdominal wall defect is seen. No bony destructive lesion is seen. IMPRESSION: 1. Patent fem-fem crossover graft. There is a fem-pop limb branch of this crossover graft which is occluded and which contains an air bubble. There is a small air bubble adjacent to this limb of the left proximal femoral graft with surrounding induration. Graft infection must be suspected. These findings were telephoned to the referring provider at the time of the study 2. Left colonic diverticulosis without CT evidence of diverticulitis. 3. Cholelithiasis with mild gallbladder wall thickening. <Electronically signed by Juve Menon > 02/25/21 [id number]
[2021-02-25] MEDS ORDERED: NITROGLYCERIN 0.4 MG SUBL TABLET SL PRN (14:25)
[2021-02-25] MEDS ORDERED: MOM 30ML SUSPENSION UDC PO PRN (14:25)
[2021-02-25] MEDS ORDERED: MAALOX 30 ML SUSP *UDC PO PRN (14:25)
[2021-02-25 14:49] LABS: RSV AMPLIFICATION NEGATIVE (NEGATIVE)
--- NOTE | 2021-02-25 15:18 | HPEPDOC ---
[facility] Medical History & Physical Date of Admission Feb 25, 2021 Date of Service: Feb 25, 2021 Primary Care Physician: HUGH URBINA PA-C Attending Physician: PREETI NARVAEZ DO History and Physical CHIEF COMPLAINT: Speech difficulty HISTORY OF PRESENT ILLNESS: Patient is an 85-year-old female presented to the emergency department today after noticing speech difficulty and some facial droop around 9 AM this morning. Patient was in her normal state of health this morning when she woke up and ate breakfast. Patient went to go take a shower states she started feeling very weak and ill in the shower. Patient says she was very nauseous but did not vomit. Patient states that she called out for her daughter who came to help her. Patient's daughter noted that the patient's speech was slurred and she was having difficulty finding words. Patient also had some left-sided facial droop. Patient recently had a vascular procedure performed and has been dealing with pain and a possible infection in the site on her left inguinal area. Patient was recently started on azithromycin for this. Patient states that her symptoms have resolved in the emergency department. Maureen gamez is otherwise doing well at this time. PAST MEDICAL HISTORY: 1. Hyperlipidemia. 2. Macular degeneration. 3. [place] in 2012. 4. Stroke 5. COPD 6. Hypertension 7. Peripheral vascular disease 8. Allergic rhinitis 9. Former smoker 10. Carotid artery disease PAST SURGICAL HISTORY: 1. Cardiac stent 2012 and 2016. 2. Colonoscopy and endoscopy. 3. Angiogram. 4. Femoral artery stents 2017. 5. Bilateral cataract surgery 6. Aortoiliac and femoral-popliteal artery stents x3 balloon placed in left leg July 2019. 7. Femoral artery bypass in 2019 8. Recent angiogram procedure SOCIAL HISTORY: Lives at home with her daughter and her daughter's . Patient former smoker will occasionally drink a very small amount of alcohol denies any illicit drug use. 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 Diabetes macular degeneration hypertension ran in the family ALLERGIES: Please see below. REVIEW OF SYSTEMS: General: Patient denies fevers HEENT: Patient denies headaches Cardiovascular: Patient denies chest pain Respiratory: Patient denies shortness of breath, cough GI: Patient denies abdominal pain, nausea, vomiting, diarrhea : Patient denies increased frequency or pain with urination Extremities: Patient denies swelling or pain in extremities Neurological: Patient denies numbness or tingling in legs Skin: Patient denies any new rashes or lesions. Hematologic: Patient denies any easy bruising. Lymphatic: Patient reports pain with a lump in her groin where the vascular surgery incision is. HOME MEDICATIONS: Please see below. PHYSICAL EXAMINATION: VITAL SIGNS: Temperature 96.3, pulse 99, respiratory rate 20, blood pressure 140/56, pulse oximetry 96% on room air. General: Alert and oriented female patient who was sitting up in bed when I walked in the room. Patient not appear to be in any acute distress. HEENT: Normocephalic, atraumatic, moist mucous membranes. Neck: No lymphadenopathy or thyromegaly Cardiac: Regular rate and rhythm, no murmurs, normal S1, normal S2 Pulm: Clear to auscultation bilaterally. No wheezes, rhonchi, rales Abd: Nondistended, nontender to palpation, normal bowel sounds Ext: Trace edema in the bilateral lower extremities. Neuro: Patient had equal strength in upper and lower extremities bilaterally. Patient reported sensation to light touch in upper and lower extremities bilaterally. Cranial nerves III through XII intact bilaterally Skin: Patient has some redness and some serosanguineous drainage coming from the left inguinal area. The area is tender to the touch. LABORATORY DATA: See below. IMAGING: CT the head performed without contrast on 02/25/2021 is reported to show ventriculomegaly in proportion to the diffuse cerebral atrophy, age-appropriate. Some progression over the last 4 years but no acute infarct, intracranial hemorrhage, mass, mass-effect or edema. Chronic small vessel white matter ischemic changes. Arthrosclerotic calcifications in the carotid siphons as before. Mastoids and sinuses are clear except for a prominent mucous retention cyst in the right maxillary antrum. Skull base and calvarium are unremarkable. A CT of the abdomen and pelvis with contrast performed on 02/25/2021 was reported to show patent Phamfemoral crossover graft. There is a Phampop limb branch of this crossover graft which is occluded and which contains an air bubble. There is a small air bubble adjacent to this limb of the left proximal femoral graft with surrounding induration. Graft infection must be suspected. These findings were telephoned to the referring provider at the time of the study. Left colonic diverticulosis without CT evidence of diverticulitis. Cholelithiasis with mild gallbladder wall thickening. MICROBIOLOGY: Please see below. ASSESSMENT: 85-year-old female came in with speech difficulties with possible TIA who was also found to have possibly infected or occluded graft. . PLAN: 1. TIA. CT scan of the head was negative. Patient symptoms resolved. Patient is already on baby aspirin and Plavix due to multiple stenting procedures that have been done prior. Patient was given full dose aspirin. Carotid ultrasound and MRI and MRA of the brain have been ordered. We will see if the patient will be able to have an MRI because of her stents. If and unable to be done, repeat CT scan in 48 hours will be performed. 2. Possibly occluded or infected femoropopliteal graft. I did reach out to the patient's vascular surgeon who made an appointment for the patient on 03/01/2021 at 11 AM however, I did contact our vascular surgeon Dr. Crews who will see the patient. At this time, the patient is hemodynamically stable. Patient has been placed on azithromycin by her vascular surgery office. At this time we will continue this medication. I appreciate Dr. Crews's help in treating the patient. 3. Peripheral vascular disease. Continue aspirin and Plavix. 4. Hypertension. Continue patient's home medications. 5. Chronic pain. Continue patient's home medications. 6. Hyperlipidemia. Continue the patient's atorvastatin. 7. DVT prophylaxis: Lovenox 8. CODE STATUS: Patient states that she has a MOLST form for DO NOT RESUSCITATE/DO NOT INTUBATE however, I do not have a copy of this. I did speak with the patient about what this means and patient did reiterate that if CPR was necessary she would not want this done and she would like to allow for natural . I did broach the subject of intubation and the patient again stated that she would not want to be on mechanical ventilator and intubated if need arose. Disposition: Patient will be admitted to the medical surgical floor with telemetry for work-up for possible TIA and occluded graft. Vascular surgery will see the patient. Vital Signs Vital Signs Date Time Temp Pulse Resp B/P (MAP) Pulse Ox O2 Delivery O2 Flow Rate FiO2 02/25/21 13:58 99 20 93 Room Air 02/25/21 12:01 140/56 (84) 02/25/21 11:41 96.3 Laboratory Data Labs 24H Laboratory Tests 2 02/25/21 12:59: Immature Granulocyte % (Auto) 0.6, Neutrophils (%) (Auto) 89.4H, Lymphocytes (%) (Auto) 3.8L, Monocytes (%) (Auto) 5.8, Eosinophils (%) (Auto) 0.2, Basophils (%) (Auto) 0.2, Neutrophils # (Auto) 15.5H, Lymphocytes # (Auto) 0.7L, Monocytes # (Auto) 1.0H, Eosinophils # (Auto) 0.0, Basophils # (Auto) 0.0, Nucleated Red Blood Cells % (auto) 0.0, Urine Color COLORLESS, Urine Appearance CLEAR, Urine pH 5.0, Urine Specific [place] 1.005, Urine Protein NEGATIVE, Urine Glucose (UA) NEGATIVE, Urine Ketones NEGATIVE, Urine Blood NEGATIVE, Urine Nitrite NEGATIVE, Urine Bilirubin NEGATIVE, Urine Urobilinogen 0.2, Urine Leukocyte Esterase NEGATIVE, Urine WBC (Auto) 1, Urine RBC (Auto) 1, Urine Hyaline Casts (Auto) 0, Urine Bacteria (Auto) NEGATIVE, Urine Squamous Epithelial Cells 0, Urine Sperm (Auto) 02/25/21 13:02: POC Glucose (Misc Panel) 118H, POC Sodium (Misc Panel) 140, POC Potassium (Misc Panel) 3.4L, POC Chloride (Misc Panel) 100, POC Total CO2 (Misc Panel) 26.0, POC Blood Urea Nitrogen (Misc Panel 10, POC Ionized Calcium (Misc Panel) 4.0L, POC Creatinine (Misc Panel) 0.8, POC Hematocrit (Misc Panel) 32.0L 02/25/21 13:59: Coronavirus (COVID-19)(PCR) NEGATIVE, Influenza Type A (RT-PCR) NEGATIVE, Influenza Type B (RT-PCR) NEGATIVE, Respiratory Syncytial Virus (PCR) NEGATIVE CBC/BMP Laboratory Tests 02/25/21 12:59 Home Medications Scheduled Atorvastatin Calcium (Atorvastatin Calcium) 40 Mg Tab, 40 MG PO QHS Azithromycin (Azithromycin) 250 Mg Tablet, 250 MG PO DAILY 4 DAYS LEFT OF COURSE OF 02/25 Carvedilol (Carvedilol) 3.125 Mg Tab, 3.125 MG PO BID Cholecalciferol (Vitamin D3) (Vitamin D3) 1,000 Unit Tablet, 1,000 UNITS PO QHS Clopidogrel Bisulfate (Plavix) 75 Mg Tab, 75 MG PO DAILY Docusate Sodium (Docusate Sodium) 100 Mg Capsule, 100 MG PO DAILY Ferrous Sulfate (Ferrous Sulfate) 325 Mg Tablet, 325 MG PO DAILY Furosemide (Furosemide) 20 Mg Tab, 20 MG PO DAILY Gabapentin (Gabapentin) 100 Mg Capsule, 200 MG PO BID Lisinopril (Lisinopril) 2.5 Mg Tablet, 2.5 MG PO QHS Pantoprazole Sodium (Pantoprazole Sodium) 40 Mg Tab, 40 MG PO DAILY Potassium Chloride (Klor-Con M10) 10 Meq Tabcr, 10 MEQ PO BID Salmeterol/Fluticasone (Advair 250-50 Diskus) 14 Puff/Inhaler Aerp, 1 PUFF INH BID Tiotropium [place] (Spiriva Respimat) 4 Gm Mist.inhal, 2 PUFFS INH DAILY Vit A/Vit C/Vit E/Zinc/Copper (Preservision Areds Softgel) 1 Cap Cap, 1 CAP PO QHS Scheduled PRN Acetaminophen (Acetaminophen) 325 Mg Tablet, 650 MG PO Q4H PRN for PAIN Hydrocodone/Acetaminophen (Hydrocodone-Acetamin 5-325 mg) 1 Each Tablet, 1 TAB PO Q4HP PRN for PAIN Nitroglycerin (Nitrostat) 0.4 Mg Tab.subl, 0.4 MG SL NITRO PRN for CHEST PAIN Allergies Coded Allergies: Penicillins (Verified Allergy, Mild, RASH, TONGUE AND FACIAL SWELLING, 02/18/20) vancomycin (Verified Allergy, Unknown, UNKNOWN REACTION, 02/25/21) ciprofloxacin (Verified Adverse Reaction, Intermediate, TREMORS/ANXIETY/NAUSEA/VOMITING, 02/18/20) A-FIB/CHADSVASC A-FIB History Current/History of A-Fib/PAF?: No PREETI NARVAEZ DO Feb 25, 2021 15:18
--- NOTE | 2021-02-25 16:13 | REP ---
INDICATION: TIA/CVA COMPARISON: 01/31/2019. TECHNIQUE: Real-time ultrasound evaluation and duplex Doppler interrogation of the extracranial carotid vasculature is performed. FINDINGS: There is a moderate degree of calcific plaque bilaterally in the carotid bulbs, extending into the internal and external carotid arteries. There is again elevated peak systolic velocity in both internal carotid arteries compatible with bilateral stenosis 50-79%. Findings are similar to the prior exam. There is normal direction of flow in both vertebral arteries. A nodule in the right lobe of the thyroid is unchanged measuring 1.7 x 1.1 x 1.1 cm. RIGHT LEFT Peak systolic velocity ICA 252 cm/s 287 cm/s End diastolic velocity ICA 29.8 cm/s 42.6 cm/s Peak systolic velocity CCA 122 cm/s 97.4cm/s Peak systolic velocity ECA 251 cm/s 252 cm/s ICA/CCA ratio 2.07 2.95 IMPRESSION: Moderate calcific plaque bilaterally, with stable findings of bilateral stenosis of the internal carotid arteries between 50 and 79%. <Electronically signed by Tariq Zheng > 02/25/21 8040
[2021-02-25 16:43] LABS: CK-MB VALUE MASS < 1.0 NG/ML (<3.6); CPK CREATINE PHOSPHOKINASE 47 U/L (26-192); MB/CK RELATIVE INDEX 2.13 (< OR =4); TROPONIN I < 0.02 NG/ML (< 0.10)
[2021-02-25] MEDS: NORCO, ANEXSIA 5/325MG TABLET (HYDROcodone/ACETAMINOPHEN) PO PRN ×2 (16:46→23:08)
[2021-02-25 17:51] VITALS: BP 123/56
[2021-02-25 18:00] VITALS: BP 125/67
[2021-02-25] MEDS: ADVAIR HFA 115/21MCG INHALER INH SCH (21:15)
[2021-02-25 22:00] VITALS: BP 113/49
[2021-02-25] MEDS: ATORVASTATIN 20 MG TAB PO SCH (23:05)
[2021-02-25] MEDS: CARVedilol 3.125 MG TAB PO SCH (23:05)
[2021-02-25] MEDS: VITAMIN D 1,000 INTERNATIONAL UNITS TABLET PO SCH (23:06)
[2021-02-25] MEDS: LISINOPRIL *2.5 MG* TAB PO SCH (23:06)
[2021-02-25] MEDS: POTASSIUM CHLORIDE 10 MEQ SR TABLET PO SCH (23:06)
[2021-02-25] MEDS: OCUVITE 1 TAB PO SCH (23:06)
[2021-02-25] MEDS: GABAPENTIN 100 MG CAP PO SCH (23:06)
[2021-02-25] MEDS: ENOXAPARIN 40MG/0.4ML SYRINGE (J1650 PER 10MG) SC SCH (23:07)
[2021-02-26] VITALS (9 sets, daily range): BP systolic 100–137; BP diastolic 44–51
[2021-02-26 05:52] LABS: HEMATOCRIT 29.7 % (36.0-47.0); HEMOGLOBIN 9.4 g/dl (12.0-15.5); MEAN CORPUSCULAR HEMOGLOBIN 30.3 pg (27.0-33.0); MEAN CORPUSCULAR HGB CONC 31.6 g/dl (32.0-36.5); MEAN CORPUSCULAR VOLUME 95.8 fl (80.0-96.0); PLATELET COUNT, AUTOMATED 193 10^3/uL (150-450); WHITE BLOOD COUNT 9.4 10^3/uL (4.0-10.0)
[2021-02-26 06:22] LABS: BLOOD UREA NITROGEN 12 MG/DL (7-18); CALCIUM LEVEL 8.2 MG/DL (8.8-10.2); CARBON DIOXIDE LEVEL 32 MEQ/L (21-32); CHLORIDE LEVEL 105 MEQ/L (98-107); CHOLESTEROL LEVEL 106 MG/DL (<200); CHOLESTEROL RISK RATIO 2.585 (<5); CREATININE FOR GFR 0.93 MG/DL (0.55-1.30); GLOMERULAR FILTRATION RATE > 60.0 (>32); GLUCOSE, FASTING 103 MG/DL (70-100); HDL CHOLESTEROL 41 MG/DL (>40); LDL CHOLESTEROL 33 MG/DL (<100); MAGNESIUM LEVEL 1.8 MG/DL (1.8-2.4); NON-HDL-C 65 MG/DL; POTASSIUM SERUM 3.8 MEQ/L (3.5-5.1); SODIUM LEVEL 142 MEQ/L (136-145); TRIGLYCERIDES LEVEL 160 MG/DL (<150)
[2021-02-26] MEDS: ADVAIR HFA 115/21MCG INHALER INH SCH ×2 (07:35→19:25)
[2021-02-26] MEDS: GABAPENTIN 100 MG CAP PO SCH ×2 (09:27→20:32)
[2021-02-26] MEDS: NORCO, ANEXSIA 5/325MG TABLET (HYDROcodone/ACETAMINOPHEN) PO PRN ×3 (09:27→20:33)
[2021-02-26] MEDS: AZITHROMYCIN 250MG TABLET PO SCH (09:27)
[2021-02-26] MEDS: POTASSIUM CHLORIDE 10 MEQ SR TABLET PO SCH ×2 (09:32→20:32)
[2021-02-26] MEDS: CARVedilol 3.125 MG TAB PO SCH ×2 (09:32→20:21)
[2021-02-26] MEDS: FUROSEMIDE 20 MG TAB PO SCH (09:33)
[2021-02-26] MEDS: DOCUSATE SODIUM 100MG CAPSULE PO SCH (09:33)
[2021-02-26] MEDS: PANTOPRAZOLE 40MG TAB (PROTONIX) PO SCH (09:33)
[2021-02-26] MEDS: CLOPIDOGREL 75 MG TAB PO SCH (09:33)
[2021-02-26] MEDS: FERROUS SULFATE 325MG TAB PO SCH (09:33)
[2021-02-26] MEDS: ACETAMINOPHEN 325 MG TAB PO PRN (10:23)
--- NOTE | 2021-02-26 13:13 | CR.PDOC ---
General Date of Consultation: Feb 26, 2021 Referring Provider: PREETI NARVAEZ DO Consultation REASON FOR CONSULTATION/CHIEF COMPLAINT: Possible infected left femoropopliteal bypass graft infection. HISTORY OF PRESENT ILLNESS: Patient was admitted on February 25, 2021 for signs of TIA. Patient had CT scan of abdomen/pelvis which showed a patent Fem-Fem bypass graft as well as an occluded femoral pop bypass graft however at origin of the graft there seems to be induration and small air bubbles within the graft as well as outside the graft. The femoropopliteal bypass graft was performed sometime in 2018 and the femorofemoral bypass graft was performed in January 2020. ALLERGIES: Please see below. HOME MEDICATIONS: Please see below. PAST MEDICAL HISTORY: 1. Hyperlipidemia. 2. Macular degeneration. 3. [place] in 2012. 4. Stroke 5. COPD 6. Hypertension 7. Peripheral vascular disease 8. Allergic rhinitis 9. Former smoker 10. Carotid artery disease PAST SURGICAL HISTORY: 1. Cardiac stent 2012 and 2016. 2. Colonoscopy and endoscopy. 3. Angiogram. 4. Femoral artery stents 2017. 5. Bilateral cataract surgery 6. Aortoiliac and femoral-popliteal artery stents x3 balloon placed in left leg July 2019. 7. Femoral artery bypass in 2019 8. Recent angiogram procedure REVIEW OF SYSTEMS: General: Patient denies fevers HEENT: Patient denies headaches Cardiovascular: Patient denies chest pain Respiratory: Patient denies shortness of breath, cough GI: Patient denies abdominal pain, nausea, vomiting, diarrhea : Patient denies increased frequency or pain with urination Extremities: Patient denies swelling or pain in extremities, complains of pain at left groin site Neurological: Patient denies numbness or tingling in legs Skin: Patient denies any new rashes or lesions. Hematologic: Patient denies any easy bruising. Lymphatic: Negative. HOME MEDICATIONS: Please see below. PHYSICAL EXAMINATION: VITAL SIGNS: see below. General: Alert and oriented no acute distress. HEENT: Normocephalic, atraumatic, moist mucous membranes. Neck: supple, no LAD Cardiac: Normal S1 and S2, RRR Pulm: CTA, No R/R/W Abd: soft, ND, NT, normal bowel sounds Ext: bilateral feet warm, left groin with palpable pulse in fem-fem bypass graft, surgical incision has healed well, medial to surgical incision is a small area of redness with some tenderness and some induration, no discharge Neuro: Grossly intact Skin: Negative LABORATORY DATA: Please see below. IMAGING 1. CT Scan abd/pel - reviewed imaging which shows air bubble within as well as outside the occluded Fem-Pop bypass graft at its origin. This graft was occluded on previous ct scan in 10/25, however air bubble was not seen at that time. There is some focal area of fat stranding near the origin of the Fem-Pop bypass graft. 2. Carotid Duplex - bilateral 50-69% ICA stenosis ASSESSMENT/PLAN: 1. Infected Left Fem-pop bypass graft - patient's WBC is normal today, was 17k yesterday. Patient does not have any fevers or chills. She has an appointment to see her vascular surgeon in [place] this Monday (March 01, 2021). Recommend continue antibiotics and okay to discharge patient when medically cleared and f/u with her primary vascular surgeon. 2. TIA - recommend continue ASA/Plavix. Bilateral ICA stenosis 50-69%. CT head negative for acute infarct; patient for MRI or repeat CT head. mgmt per primary team. Reconsult prn. Vital Signs/I&O Vital Signs Date Time Temp Pulse Resp B/P (MAP) Pulse Ox O2 Delivery O2 Flow Rate FiO2 02/26/21 11:14 85 Nasal Cannula 2.0 02/26/21 10:02 20 02/26/21 09:35 98.5 100 137/50 I&O- Last 24 Hours up to 6 AM 02/26/21 06:00 Intake Total 470 ml Output Total 350 ml Balance 120 ml Laboratory Data Labs 24H Laboratory Tests 2 02/25/21 12:59: Immature Granulocyte % (Auto) 0.6, Neutrophils (%) (Auto) 89.4H, Lymphocytes (%) (Auto) 3.8L, Monocytes (%) (Auto) 5.8, Eosinophils (%) (Auto) 0.2, Basophils (%) (Auto) 0.2, Neutrophils # (Auto) 15.5H, Lymphocytes # (Auto) 0.7L, Monocytes # (Auto) 1.0H, Eosinophils # (Auto) 0.0, Basophils # (Auto) 0.0, Nucleated Red Blood Cells % (auto) 0.0, Urine Color COLORLESS, Urine Appearance CLEAR, Urine pH 5.0, Urine Specific [place] 1.005, Urine Protein NEGATIVE, Urine Glucose (UA) NEGATIVE, Urine Ketones NEGATIVE, Urine Blood NEGATIVE, Urine Nitrite NEGATIVE, Urine Bilirubin NEGATIVE, Urine Urobilinogen 0.2, Urine Leukocyte Esterase NEGATIVE, Urine WBC (Auto) 1, Urine RBC (Auto) 1, Urine Hyaline Casts (Auto) 0, Urine Bacteria (Auto) NEGATIVE, Urine Squamous Epithelial Cells 0, Urine Sperm (Auto) , Total Creatine Kinase 47, Creatine Kinase MB < 1.0, Creatine Kinase MB Relative Index 2.13, Troponin I < 0.02 02/25/21 13:02: POC Glucose (Misc Panel) 118H, POC Sodium (Misc Panel) 140, POC Potassium (Misc Panel) 3.4L, POC Chloride (Misc Panel) 100, POC Total CO2 (Misc Panel) 26.0, POC Blood Urea Nitrogen (Misc Panel 10, POC Ionized Calcium (Misc Panel) 4.0L, POC Creatinine (Misc Panel) 0.8, POC Hematocrit (Misc Panel) 32.0L 02/25/21 13:59: Coronavirus (COVID-19)(PCR) NEGATIVE, Influenza Type A (RT-PCR) NEGATIVE, Influenza Type B (RT-PCR) NEGATIVE, Respiratory Syncytial Virus (PCR) NEGATIVE 02/26/21 05:07: Nucleated Red Blood Cells % (auto) 0.0, Anion Gap 5L, Glomerular Filtration Rate > 60.0, Calcium Level 8.2L, Magnesium Level 1.8, Triglycerides Level 160H, Total Cholesterol 106, LDL Cholesterol 33, Non-HDL Cholesterol (LDL + VLDL) 65, Total HDL Cholesterol 41, Cholesterol/HDL Ratio 2.585 02/26/21 11:14: Lab Scanned Report Miscellaneous Lab CBC/BMP Laboratory Tests 02/25/21 12:59 02/26/21 05:07 Allergies Coded Allergies: Penicillins (Verified Allergy, Mild, RASH, TONGUE AND FACIAL SWELLING, 02/18/20) vancomycin (Verified Allergy, Unknown, UNKNOWN REACTION, 02/25/21) ciprofloxacin (Verified Adverse Reaction, Intermediate, TREMORS/A NXIETY/NAUSEA/VOMITING, 02/18/20) Home Medications Scheduled Atorvastatin Calcium (Atorvastatin Calcium) 40 Mg Tab, 40 MG PO QHS, (Reported) Azithromycin (Azithromycin) 250 Mg Tablet, 250 MG PO DAILY, (Reported) 4 DAYS LEFT OF COURSE OF 02/25 Carvedilol (Carvedilol) 3.125 Mg Tab, 3.125 MG PO BID, (Reported) Cholecalciferol (Vitamin D3) (Vitamin D3) 1,000 Unit Tablet, 1,000 UNITS PO QHS, (Reported) Clopidogrel Bisulfate (Plavix) 75 Mg Tab, 75 MG PO DAILY, (Reported) Docusate Sodium (Docusate Sodium) 100 Mg Capsule, 100 MG PO DAILY, (Reported) Ferrous Sulfate (Ferrous Sulfate) 325 Mg Tablet, 325 MG PO DAILY, (Reported) Furosemide (Furosemide) 20 Mg Tab, 20 MG PO DAILY, (Reported) Gabapentin (Gabapentin) 100 Mg Capsule, 200 MG PO BID, (Reported) Lisinopril (Lisinopril) 2.5 Mg Tablet, 2.5 MG PO QHS, (Reported) Pantoprazole Sodium (Pantoprazole Sodium) 40 Mg Tab, 40 MG PO DAILY, (Reported) Potassium Chloride (Klor-Con M10) 10 Meq Tabcr, 10 MEQ PO BID, (Reported) Salmeterol/Fluticasone (Advair 250-50 Diskus) 14 Puff/Inhaler Aerp, 1 PUFF INH BID, (Reported) Tiotropium [place] (Spiriva Respimat) 4 Gm Mist.inhal, 2 PUFFS INH DAILY, (Reported) Vit A/Vit C/Vit E/Zinc/Copper (Preservision Areds Softgel) 1 Cap Cap, 1 CAP PO QHS, (Reported) Scheduled PRN Acetaminophen (Acetaminophen) 325 Mg Tablet, 650 MG PO Q4H PRN for PAIN, (Reported) Hydrocodone/Acetaminophen (Hydrocodone-Acetamin 5-325 mg) 1 Each Tablet, 1 TAB PO Q4HP PRN for PAIN, (Reported) Nitroglycerin (Nitrostat) 0.4 Mg Tab.subl, 0.4 MG SL NITRO PRN for CHEST PAIN, (Reported) RAHUL PEPPER MD Feb 26, 2021 13:13
[2021-02-26] MEDS: SANTYL OINT 30GM TOP SCH (14:58)
[2021-02-26] MEDS ORDERED: GABAPENTIN 100 MG CAP PO ONE (16:00)
--- NOTE | 2021-02-26 17:01 | IPNPDOC ---
Text Note Date of Service The patient was seen on 02/26/21. NOTE Subjective: Patient is an 85-year-old female presented to emergency department yesterday after noticing speech difficulty and facial droop around 9 AM yesterday morning. Patient returned to her normal state of health however, she is dealing with a possible graft infection. Vascular surgery saw the patient earlier today and not recommend any urgent or emergent procedure as the patient's incision looked better today than it did yesterday. There was no redness or drainage around the area. Patient did have an episode this morning and this evening where she was writhing in pain causing her to be tachycardic and hypoxic. Patient appears to be in moderate distress when I went to see her and the pain seemed to come in waves. Patient was doing better this morning than in the afternoon. Review of systems: General: Patient denies fevers HEENT: Patient denies headaches Cardiovascular: Patient denies chest pain Respiratory: Patient denies shortness of breath, cough GI: Patient denies abdominal pain, nausea, vomiting, diarrhea : Patient denies increased frequency or pain with urination Extremities: Patient reports pain in her lower extremities bilaterally Neurological: Patient denies numbness or tingling in legs Physical exam: Vitals: See below General: Alert and oriented female patient who was sitting in the bedside chair and I walked in. Patient not appear to be in any acute distress. HEENT: Normocephalic, atraumatic, moist mucous membranes. Neck: No lymphadenopathy or thyromegaly Cardiac: Regular rate and rhythm, no murmurs, normal S1, normal S2 Pulm: Clear to auscultation bilaterally. No wheezes, rhonchi, rales Abd: Nondistended, nontender to palpation, normal bowel sounds Ext: No edema bilateral lower extremities, dorsalis pedis pulses 1/4 bilaterally Neuro: Patient had equal strength in upper and lower extremities bilaterally. Patient reported sensation to light touch in upper and lower extremities bilaterally. Cranial nerves III through XII intact bilaterally Labs: See below Imaging: Bilateral carotid ultrasound performed on 02/25/2021 was reported to show moderate calcific plaque bilaterally with stable findings of bilateral stenosis at of the internal carotid arteries P 50 and 70% Assessment/plan: 85-year-old female came this patient because of possible TIA who was also found to have possibly infected or occluded graft 1. TIA. CT scan of the head was negative. MRI is still waiting to be done as we are unsure what kind of stents she has. Since family brought in the cards stating what kind of stents were placed and these were sent on MRI today. If patient is unable to get an MRI, CT scan will be reviewed tomorrow. 2. Possibly occluded infected femoral popliteal graft. Vascular surgery saw the patient today and did not say that the patient needed any immediate intervention. 3. Peripheral vascular disease. Continue aspirin Plavix 4. Hypertension. Continue patient's home medications 5. Chronic pain. Continue patient's home medications patient was given extra dose of gabapentin due to the patient's increased pain today. 6. Hyperlipidemia. Continue patient's atorvastatin. DVT Prophylaxis: Lovenox Disposition: Pending work-up for TIA. Possible discharge tomorrow. VS,Fishbone, I+O VS, Fishbone, I+O Laboratory Tests 02/26/21 05:07 Vital Signs Date Time Temp Pulse Resp B/P (MAP) Pulse Ox O2 Delivery O2 Flow Rate FiO2 02/26/21 14:59 20 02/26/21 14:36 98.9 86 100/50 92 Room Air 02/26/21 14:00 2.0 I&O- Last 24 Hours up to 6 AM 02/26/21 06:00 Intake Total 470 ml Output Total 350 ml Balance 120 ml PREETI NARVAEZ DO Feb 26, 2021 17:01
[2021-02-26] MEDS ORDERED: NS 1,000 ML IV SCH (17:35)
[2021-02-26] MEDS: LISINOPRIL *2.5 MG* TAB PO SCH (20:21)
[2021-02-26] MEDS ORDERED: NS 500 ML IV ONE ×2 (20:30→22:10)
[2021-02-26] MEDS: VITAMIN D 1,000 INTERNATIONAL UNITS TABLET PO SCH (20:32)
[2021-02-26] MEDS: ATORVASTATIN 20 MG TAB PO SCH (20:32)
[2021-02-26] MEDS: OCUVITE 1 TAB PO SCH (20:32)
[2021-02-26] MEDS: ENOXAPARIN 40MG/0.4ML SYRINGE (J1650 PER 10MG) SC SCH (20:33)
[2021-02-27 02:00] VITALS: BP_SYST 105; BP_SYST 113; BP_DIAS 51; BP_DIAS 87
[2021-02-27] MEDS: NORCO, ANEXSIA 5/325MG TABLET (HYDROcodone/ACETAMINOPHEN) PO PRN ×4 (02:12→15:48)
[2021-02-27 03:20] LABS: HEMATOCRIT 28.7 % (36.0-47.0); HEMOGLOBIN 8.9 g/dl (12.0-15.5); MEAN CORPUSCULAR HEMOGLOBIN 29.8 pg (27.0-33.0); PLATELET COUNT, AUTOMATED 163 10^3/uL (150-450); RED BLOOD COUNT 2.99 10^6/uL (4.00-5.40); WHITE BLOOD COUNT 6.3 10^3/uL (4.0-10.0)
[2021-02-27 03:58] LABS: BLOOD UREA NITROGEN 10 MG/DL (7-18); CALCIUM LEVEL 7.6 MG/DL (8.8-10.2); CARBON DIOXIDE LEVEL 27 MEQ/L (21-32); CHLORIDE LEVEL 113 MEQ/L (98-107); CREATININE FOR GFR 0.66 MG/DL (0.55-1.30); GLOMERULAR FILTRATION RATE > 60.0 (>32); GLUCOSE, FASTING 107 MG/DL (70-100); MAGNESIUM LEVEL 1.7 MG/DL (1.8-2.4); POTASSIUM SERUM 3.8 MEQ/L (3.5-5.1); SODIUM LEVEL 147 MEQ/L (136-145)
[2021-02-27 06:00] VITALS: BP 101/49
[2021-02-27] MEDS: ADVAIR HFA 115/21MCG INHALER INH SCH (07:21)
[2021-02-27] MEDS: DOCUSATE SODIUM 100MG CAPSULE PO SCH (08:24)
[2021-02-27] MEDS: CLOPIDOGREL 75 MG TAB PO SCH (08:24)
[2021-02-27] MEDS: AZITHROMYCIN 250MG TABLET PO SCH (08:24)
[2021-02-27] MEDS: GABAPENTIN 100 MG CAP PO SCH (08:24)
[2021-02-27] MEDS: FUROSEMIDE 20 MG TAB PO SCH (08:24)
[2021-02-27] MEDS: SANTYL OINT 30GM TOP SCH (08:24)
[2021-02-27] MEDS: FERROUS SULFATE 325MG TAB PO SCH (08:24)
[2021-02-27] MEDS: POTASSIUM CHLORIDE 10 MEQ SR TABLET PO SCH (08:24)
[2021-02-27 08:25] VITALS: BP 122/52
[2021-02-27] MEDS: CARVedilol 3.125 MG TAB PO SCH (08:25)
[2021-02-27] MEDS: PANTOPRAZOLE 40MG TAB (PROTONIX) PO SCH (08:25)
--- NOTE | 2021-02-27 12:57 | IPNPDOC ---
Subjective Date Seen The patient was seen on 02/27/21. Subjective Chief Complaint/HPI Resting comfortably in bed no acute events overnight patient states she is feeling well. Patient had one episode of pain in both legs which was transient in nature. Patient also states pain went away after being given medication. Objective Physical Examination General Exam: Positive: Cooperative Eye Exam: Positive: PERRLA ENT Exam: Positive: Atraumatic, Mucous membr. moist/pink Neck Exam: Positive: Supple; Negative: JVD Chest Exam: Positive: Clear to auscultation, Normal air movement Heart Exam: Positive: Rate Normal Abdomen Exam: Positive: Normal bowel sounds, Soft; Negative: Tenderness Extremity Exam: Positive: Other (Bilateral feet warm, no neuro deficit. Left groin soft, no discharge, no erythema, mild tenderness, no induration) Neuro Exam: Positive: Normal Speech, Normal Tone, Sensation Intact Psych Exam: Positive: Mental status NL, Oriented x 3 Assessment /Plan Assessment 85-year-old female admitted for TIA and found to have air bubbles within left femoral to popliteal bypass graft white count is normal for past 2 days. Patient awaiting repeat CT scan of head to rule out acute infarct. Recommend continue current treatment plan. Patient to follow-up with her primary vascular surgeon on Monday. Plan/VTE VTE Prophylaxis Ordered?: Yes VS, I&O, 24H, [place] Vital Signs/I&O Vital Signs Date Time Temp Pulse Resp B/P (MAP) Pulse Ox O2 Delivery O2 Flow Rate FiO2 02/27/21 11:44 16 Nasal Cannula 1.0 02/27/21 08:25 87 122/52 02/27/21 06:00 97.1 98 I&O- Last 24 Hours up to 6 AM 02/27/21 06:00 Intake Total 2175 ml Balance 2175 ml Laboratory Data 24H LABS Laboratory Tests 2 02/26/21 16:23: Lactic Acid Level 2.6*H 02/26/21 20:40: Lactic Acid Followup at 4 Hours 3.2*H 02/27/21 03:09: Lactic Acid Level 1.0, Nucleated Red Blood Cells % (auto) 0.0, Anion Gap 7L, Glomerular Filtration Rate > 60.0, Calcium Level 7.6L, Magnesium Level 1.7L CBC/BMP Laboratory Tests 02/27/21 03:09 Microbiology Microbiology 02/26/21 Blood Culture, Received Pending 02/26/21 Blood Culture, Received Pending RAHUL PEPPER MD Feb 27, 2021 12:57
--- NOTE | 2021-02-27 13:48 | REP ---
INDICATION: TIA symptoms, 48 hour repeat. COMPARISON: Comparison CT study is from February 25, 2021.. TECHNIQUE: Helical scanning is acquired and 5 mm axial images re-formatted. Coronal MPR images are included. FINDINGS: Digital preliminary dietitian research radiograph is unremarkable. Vascular calcification is seen fairly heavily involving the distal internal carotid arteries. There is generalized volume loss again noted. Mild small vessel atherosclerotic changes are seen. There is no evidence of intracranial hemorrhage. No acute cortical infarction is appreciated. No extra-axial fluid collection has developed. No mass or midline shift is seen.. No significant change from the earlier study. IMPRESSION: Generalized volume loss and small vessel changes. Vascular calcification. No acute intracranial abnormality per. <Electronically signed by Juve Menon > 02/27/21 [id number]
[2021-02-27 14:00] VITALS: BP 116/98
[2021-02-27 14:15] VITALS: BP 144/68
[2021-02-27] MEDS: ACETAMINOPHEN 325 MG TAB PO PRN (14:32)
--- NOTE | 2021-02-27 17:30 | DS.PDOC ---
Discharge Summary General Date of Admission Feb 25, 2021 at 13:57 Date of Discharge February 27 2021 Primary Care Physician: HUGH URBINA PA-C Attending Physician: PREETI NARVAEZ DO Specialist/Consultants Involve: RAHUL CREWS MD Discharge Summary PROCEDURES PERFORMED DURING STAY: None. ADMITTING DIAGNOSES: 1. TIA. 2. Possible occluded or infected femoral-popliteal grafts 3. Peripheral vascular disease 4. Hypertension 5. Chronic pain 6. Hyperlipidemia DISCHARGE DIAGNOSES: 1. TIA. 2. Possible occluded or infected femoral-popliteal graft 3. Lactic acidosis, resolved 4. Peripheral vascular disease 5. Hypertension 6. Chronic pain 7. Hyperlipidemia COMPLICATIONS/CHIEF COMPLAINT: Cva (Cerebral Vascular Accident). HISTORY OF PRESENT ILLNESS: Patient is an 85-year-old female presents to the emergency department on 02/25/2021 after noticing some speech difficulty and facial droop around 9 AM that morning. Patient was in her normal state of health in the morning and she woke up and ate breakfast. Patient wanted to take a shower and started feeling very weak and ill in the shower. Patient says that she is very nauseous but did not vomit. Patient called out for her daughter to come help her. Patient's daughter noticed the patient had slurred speech and had difficulty finding her words. Patient also has some left sided facial droop. Patient recently had a vascular procedure performed and been dealing with pain and possible infection at the site of her left inguinal area. Patient was recently started on azithromycin by her vascular surgeon for this. Patient states that her symptoms have resolved in the emergency department and is otherwise doing well. HOSPITAL COURSE: Patient did not have any neurological symptoms and all neuro checks had been negative. On 02/26/2021 patient had an episode where she was writhing in pain in the morning. This lasted a few minutes before the patient was able to return to her normal state. This happened again in the afternoon and the nurse called me after the room. Patient was writhing in pain and was holding her breath during these episodes. Patient would have low oxygen saturations. A lactic acid was ordered and did show a mild elevation at 2.6. Blood cultures were ordered at this time. Patient did not have any fevers and her white count actually improved throughout the day. Patient received some IV fluid boluses and her lactic acidosis had resolved. On the morning of 02/27/2021 the patient was feeling much better stating that the site in her inguinal area was doing much be tter. Patient was seen by vascular surgery, Dr. Crews in the hospital who did not recommend any urgent or emergent procedures and recommended the patient follow- up with her vascular surgeon. An appointment was made with her vascular surgeon on the day of admission as a CT finding showed that there was possible air in the graft and I did call down to see if anything urgently needed to be done and notify them of the CT finding. Patient stated that she is feeling well. A repeat CT was performed of the patient's head and did not show any progression of any infarction. Patient was deemed ready for discharge as the patient was clinically doing much better than she was in the day prior. Patient will continue with her azithromycin as prescribed by her vascular surgeon and follow-up on Monday. Patient was discharged in the hospital on February 27 2021. DISCHARGE MEDICATIONS: Please see below. ALLERGIES: Please see below. PHYSICAL EXAMINATION ON DISCHARGE: VITAL SIGNS: Please see below. General: Alert and oriented female patient who was laying in bed when I walked in the room. Patient did not appear to be in any acute distress. HEENT: Normocephalic, atraumatic, moist mucous membranes. Neck: No lymphadenopathy or thyromegaly Cardiac: Regular rate and rhythm, no murmurs, normal S1, normal S2 Pulm: Clear to auscultation bilaterally. No wheezes, rhonchi, rales Abd: Nondistended, nontender to palpation, normal bowel sounds Ext: No edema bilateral lower extremities, 1/4 dorsalis pedis pulses bilaterally LABORATORY DATA: Please see below. IMAGING: CT the head performed without contrast on 02/25/2021 is reported to show ventriculomegaly in proportion to the diffuse cerebral atrophy, age-appropriate. Some progression over the last 4 years but no acute infarct, intracranial hemorrhage, mass, mass-effect or edema. Chronic small vessel white matter ischemic changes. Arthrosclerotic calcifications in the carotid siphons as before. Mastoids and sinuses are clear except for a prominent mucous retention cyst in the right maxillary antrum. Skull base and calvarium are unremarkable. A CT of the abdomen and pelvis with contrast performed on 02/25/2021 was reported to show patent Phamfemoral crossover graft. There is a Phampop limb branch of this crossover graft which is occluded and which contains an air bubble. There is a small air bubble adjacent to this limb of the left proximal femoral graft with surrounding induration. Graft infection must be suspected. These findings were telephoned to the referring provider at the time of the study. Left colonic diverticulosis without CT evidence of diverticulitis. Cholelithiasis with mild gallbladder wall thickening. Bilateral carotid ultrasound performed on 02/25/2021 was reported to show moderate calcific plaque bilaterally with stable findings of bilateral stenosis at of the internal carotid arteries between 50 [address] 70% CT head performed without contrast on 02/27/2021 was reported to show generalized volume loss and small vessel changes. Vascular calcification. No acute intracranial abnormality PROGNOSIS: Fair ACTIVITY: As tolerated. DIET: Heart healthy diet DISCHARGE PLAN: Discharge home DISPOSITION: . DISCHARGE INSTRUCTIONS: 1. Follow-up with your primary care provider within 5 to 7 days to discharge. 2. Follow-up with your vascular surgeon in [place], [place] on Monday at 11 AM 3. Continue taking azithromycin as prescribed by your vascular surgeon 4. Return to the emergency department if symptoms return ITEMS TO FOLLOWUP ON ON OUTPATIENT: 1. Follow-up possible graft infection. DISCHARGE CONDITION: Stable. TIME SPENT ON DISCHARGE: 35 minutes. Vital Signs/I&Os Vital Signs Date Time Temp Pulse Resp B/P (MAP) Pulse Ox O2 Delivery O2 Flow Rate FiO2 02/27/21 16:20 16 02/27/21 14:15 144/68 (93) 02/27/21 14:00 98.2 89 93 Room Air 02/27/21 11:44 1.0 I&O- Last 24 Hours up to 6 AM 02/27/21 06:00 Intake Total 2175 ml Balance 2175 ml Laboratory Data Labs 24H Laboratory Tests 2 02/26/21 20:40: Lactic Acid Followup at 4 Hours 3.2*H 02/27/21 03:09: Nucleated Red Blood Cells % (auto) 0.0, Anion Gap 7L, Glomerular Filtration Rate > 60.0, Lactic Acid Level 1.0, Calcium Level 7.6L, Magnesium Level 1.7L CBC/BMP Laboratory Tests 02/27/21 03:09 Microbiology Microbiology 02/26/21 Blood Culture, Received Pending 02/26/21 Blood Culture, Received Pending Discharge Medications Scheduled Atorvastatin Calcium (Atorvastatin Calcium) 40 Mg Tab, 40 MG PO QHS, (Reported) Azithromycin (Azithromycin) 250 Mg Tablet, 250 MG PO DAILY, (Reported) 4 DAYS LEFT OF COURSE OF 02/25 Carvedilol (Carvedilol) 3.125 Mg Tab, 3.125 MG PO BID, (Reported) Cholecalciferol (Vitamin D3) (Vitamin D3) 1,000 Unit Tablet, 1,000 UNITS PO QHS, (Reported) Clopidogrel Bisulfate (Plavix) 75 Mg Tab, 75 MG PO DAILY, (Reported) Docusate Sodium (Docusate Sodium) 100 Mg Capsule, 100 MG PO DAILY, (Reported) Ferrous Sulfate (Ferrous Sulfate) 325 Mg Tablet, 325 MG PO DAILY, (Reported) Furosemide (Furosemide) 20 Mg Tab, 20 MG PO DAILY, (Reported) Gabapentin (Gabapentin) 100 Mg Capsule, 200 MG PO BID, (Reported) Lisinopril (Lisinopril) 2.5 Mg Tablet, 2.5 MG PO QHS, (Reported) Pantoprazole Sodium (Pantoprazole Sodium) 40 Mg Tab, 40 MG PO DAILY, (Reported) Potassium Chloride (Klor-Con M10) 10 Meq Tabcr, 10 MEQ PO BID, (Reported) Salmeterol/Fluticasone (Advair 250-50 Diskus) 14 Puff/Inhaler Aerp, 1 PUFF INH BID, (Reported) Tiotropium [place] (Spiriva Respimat) 4 Gm Mist.inhal, 2 PUFFS INH DAILY, (Reported) Vit A/Vit C/Vit E/Zinc/Copper (Preservision Areds Softgel) 1 Cap Cap, 1 CAP PO QHS, (Reported) Scheduled PRN Acetaminophen (Acetaminophen) 325 Mg Tablet, 650 MG PO Q4H PRN for PAIN, (Reported) Hydrocodone/Acetaminophen (Hydrocodone-Acetamin 5-325 mg) 1 Each Tablet, 1 TAB PO Q4HP PRN for PAIN, (Reported) Nitroglycerin (Nitrostat) 0.4 Mg Tab.subl, 0.4 MG SL NITRO PRN for CHEST PAIN, (Reported) Allergies Coded Allergies: Penicillins (Verified Allergy, Mild, RASH, TONGUE AND FACIAL SWELLING, 02/18/20) vancomycin (Verified Allergy, Unknown, UNKNOWN REACTION, 02/25/21) ciprofloxacin (Verified Adverse Reaction, Intermediate, TREMORS/ANXIETY/NAUSEA/VOMITING, 02/18/20) PREETI NARVAEZ DO Feb 27, 2021 17:30
--- NOTE | 2021-02-28 12:41 | ECHO ---
ECHOCARDIOGRAM DATE OF PROCEDURE: 02/26/2021 Age: 85 Gender: Female Height: 64 inches Weight: 123 pounds Body surface area: 1.6 m2 INPATIENT LOCATION: [address] [place] [address], Room 4203 REFERRING PHYSICIAN: Shree Tucker D.O. INDICATION: Transient ischemic attack (TIA) - questionable cardiac source of embolic material, history of paroxysmal atrial fibrillation. MEASUREMENTS: 2D Measurements: RV - 3.5 cm LV - 3.2 cm Septum 1.1 cm Posterior wall 1.1 cm Aortic root 3.2 cm LA - 3.2 cm LVEF 75% Doppler Measurements: AV - 1.18 m/sec LVOT - 0.8 m/sec LVOT diameter 1.8 cm MV - E 85, A 125, EA ratio 0.7 Early mitral deceleration time 235 msec E prime medial 6.3 A prime medial 8.3 E prime lateral 5.1 Average E/E ratio 14.9/PCWP - 20 mmHg PV - 0.8 m/sec Pulmonary artery acceleration time 87 msec RSVP 44 mmHg IVC - 1.7 cm COMMENTS: Normal sinus rhythm without intraventricular conduction disturbance. M-mode and 2-dimensional echocardiography was performed with pulse, continuous wave, color flow and tissue Doppler studies. Normal left ventricular size, wall thickness and hyperkinetic wall motion. Normal left atrial size with grade 1 left ventricular (LV) diastolic dysfunction and at least mildly elevated mean left atrial pressure. Right heart chamber sizes upper limits of normal with normal right ventricular free wall motion and slight degree of right ventricular free wall hypertrophy. Doppler evidence of at least moderate pulmonary hypertension. Normal inferior vena cava (IVC) size and collapse against an elevated central venous pressure. Normal aortic dimensions. Marginal aortic valvular sclerosis without functional abnormality. Subtle degenerative changes of her mitral valvular apparatus with no more than trace insufficiency. Normal appearing tricuspid valve with very mild insufficiency. Lipomatous hypertrophy of the interatrial septum with thinning of the mid-portion. Could not rule out a patent ductus arteriosis, but this could not be visualized with color flow Doppler. No apparent intracardiac mass. Small size pericardial effusion measuring 0.7 cm posteriorly and 0.8 cm anteriorly, but no evidence of cardiac chamber compression. No respiratory variation to Doppler flow signals and normal IVC size and collapse against cardiac tamponade. Saline contrast study was performed from the subcostal 4-chamber projection using agitated saline injected bolus in a large forearm vein. There was good opacification of the right heart chambers without any evidence of contrast entering the right heart.
== END 2021-02-27 18:10 | disposition home or self-care (01) | DRG 315 ==
LOC: M ED 11:28 → EDBD 11:28 → M ED INP 13:57 → ENRESERV 15:36 → M MSPAV 17:12
PROVIDERS: ADMIT Family Medicine; ATTEND Family Medicine
DX: T82.7XXA Infection and inflammatory reaction due to other cardiac and vascular devices, implants and grafts, initial encounter (principal); G45.9 Transient cerebral ischemic attack, unspecified; T82.392A Other mechanical complication of femoral arterial graft (bypass), initial encounter; E78.5 Hyperlipidemia, unspecified; H35.30 Unspecified macular degeneration; J44.9 Chronic obstructive pulmonary disease, unspecified; I25.2 Old myocardial infarction; I10 Essential (primary) hypertension; I73.9 Peripheral vascular disease, unspecified; J30.9 Allergic rhinitis, unspecified; Z87.891 Personal history of nicotine dependence; Z95.5 Presence of coronary angioplasty implant and graft; Z95.820 Peripheral vascular angioplasty status with implants and grafts; Z98.41 Cataract extraction status, right eye; Z98.42 Cataract extraction status, left eye; Z66 Do not resuscitate; Z20.822 Contact with and (suspected) exposure to COVID-19; Z79.02 Long term (current) use of antithrombotics/antiplatelets; Z79.899 Other long term (current) drug therapy; Z88.0 Allergy status to penicillin; Z88.1 Allergy status to other antibiotic agents; Y83.1 Surgical operation with implant of artificial internal device as the cause of abnormal reaction of the patient, or of later complication, without mention of misadventure at the time of the procedure

== ENCOUNTER → 2021-03-22 | Outpatient (REF) | payer MEDICARE ==
[~2021-03-22] MED LIST changes: -LISI2.5T2 PO; +LISI2.5T9 PO; +SPIR12.9 INH
[2021-03-22 15:10] LABS: HEMATOCRIT 29.4 % (36.0-47.0); HEMOGLOBIN 8.8 g/dl (12.0-15.5); MEAN CORPUSCULAR HEMOGLOBIN 29.6 pg (27.0-33.0); MEAN CORPUSCULAR HGB CONC 29.9 g/dl (32.0-36.5); PLATELET COUNT, AUTOMATED 359 10^3/uL (150-450); RED BLOOD COUNT 2.97 10^6/uL (4.00-5.40); WHITE BLOOD COUNT 11.2 10^3/uL (4.0-10.0)
[2021-03-22 15:18] LABS: ALBUMIN 2.6 GM/DL (3.2-5.2); ALT/SGPT 17 U/L (12-78); BILIRUBIN,TOTAL 0.5 MG/DL (0.2-1.0); BLOOD UREA NITROGEN 14 MG/DL (7-18); C REACTIVE PROTEIN QUANTITATIV 0.69 MG/DL (0.00-0.30); CALCIUM LEVEL 8.5 MG/DL (8.8-10.2); CARBON DIOXIDE LEVEL 31 MEQ/L (21-32); CHLORIDE LEVEL 102 MEQ/L (98-107); GLOMERULAR FILTRATION RATE > 60.0 (>32); GLUCOSE, FASTING 76 MG/DL (70-100); POTASSIUM SERUM 4.2 MEQ/L (3.5-5.1); SODIUM LEVEL 137 MEQ/L (136-145); TOTAL PROTEIN 5.9 GM/DL (6.4-8.2)
[2021-03-22 18:18] LABS: ERYTHROCYTE SEDIMENTATION RATE 68 mm/hr (0-30)
== END ==
LOC: M SHH 14:32
PROVIDERS: ATTEND Physician Assistant Surgical
DX: Z79.2 Long term (current) use of antibiotics (principal)

== ENCOUNTER → 2021-03-29 | Outpatient (REF) | payer MEDICARE ==
[2021-03-29 16:21] LABS: BASO # 0.1 10^3/uL (0.0-0.2); BASO % 1.4 % (0.0-1.0); EOS # 0.4 10^3/uL (0.0-0.5); EOS % 6.1 % (0.0-3.0); HEMATOCRIT 29.8 % (36.0-47.0); HEMOGLOBIN 9.2 g/dl (12.0-15.5); LYMPH # 1.4 10^3/uL (1.5-5.0); LYMPH % 19.6 % (24.0-44.0); MEAN CORPUSCULAR HEMOGLOBIN 30.1 pg (27.0-33.0); MEAN CORPUSCULAR HGB CONC 30.9 g/dl (32.0-36.5); MEAN CORPUSCULAR VOLUME 97.4 fl (80.0-96.0); MONO # 0.7 10^3/uL (0.0-0.8); MONO % 10.7 % (2.0-8.0); NEUTROPHILS # 4.3 10^3/uL (1.5-8.5); NEUTROPHILS % 61.3 % (36.0-66.0); PLATELET COUNT, AUTOMATED 265 10^3/uL (150-450); RED BLOOD COUNT 3.06 10^6/uL (4.00-5.40); WHITE BLOOD COUNT 6.9 10^3/uL (4.0-10.0)
[2021-03-29 16:58] LABS: ERYTHROCYTE SEDIMENTATION RATE 60 mm/hr (0-30)
[2021-03-29 17:01] LABS: ALBUMIN 2.4 GM/DL (3.2-5.2); ALT/SGPT 14 U/L (12-78); BILIRUBIN,TOTAL 0.5 MG/DL (0.2-1.0); BLOOD UREA NITROGEN 12 MG/DL (7-18); CALCIUM LEVEL 7.8 MG/DL (8.8-10.2); CARBON DIOXIDE LEVEL 28 MEQ/L (21-32); CHLORIDE LEVEL 108 MEQ/L (98-107); GLOMERULAR FILTRATION RATE > 60.0 (>32); GLUCOSE, FASTING 85 MG/DL (70-100); POTASSIUM SERUM 4.2 MEQ/L (3.5-5.1); SODIUM LEVEL 140 MEQ/L (136-145); TOTAL PROTEIN 5.6 GM/DL (6.4-8.2)
== END ==
LOC: M SHH 15:59
PROVIDERS: ATTEND Nurse Practitioner
DX: T82.7XXS Infection and inflammatory reaction due to other cardiac and vascular devices, implants and grafts, sequela (principal); Z79.2 Long term (current) use of antibiotics

== ENCOUNTER → 2021-04-05 | Outpatient (REF) | payer MEDICARE ==
[2021-04-05 17:55] LABS: BASO # 0.1 10^3/uL (0.0-0.2); BASO % 1.1 % (0.0-1.0); EOS # 0.7 10^3/uL (0.0-0.5); EOS % 11.4 % (0.0-3.0); HEMATOCRIT 32.3 % (36.0-47.0); HEMOGLOBIN 9.7 g/dl (12.0-15.5); LYMPH # 1.1 10^3/uL (1.5-5.0); MEAN CORPUSCULAR HEMOGLOBIN 29.8 pg (27.0-33.0); MEAN CORPUSCULAR VOLUME 99.1 fl (80.0-96.0); MONO # 0.7 10^3/uL (0.0-0.8); MONO % 10.7 % (2.0-8.0); NEUTROPHILS # 3.7 10^3/uL (1.5-8.5); NEUTROPHILS % 58.5 % (36.0-66.0); PLATELET COUNT, AUTOMATED 185 10^3/uL (150-450); RED BLOOD COUNT 3.26 10^6/uL (4.00-5.40); WHITE BLOOD COUNT 6.3 10^3/uL (4.0-10.0)
[2021-04-05 18:18] LABS: ALBUMIN 2.5 GM/DL (3.2-5.2); ALT/SGPT 13 U/L (12-78); BILIRUBIN,TOTAL 0.4 MG/DL (0.2-1.0); BLOOD UREA NITROGEN 12 MG/DL (7-18); CALCIUM LEVEL 8.4 MG/DL (8.8-10.2); CARBON DIOXIDE LEVEL 29 MEQ/L (21-32); CHLORIDE LEVEL 108 MEQ/L (98-107); CREATININE FOR GFR 0.62 MG/DL (0.55-1.30); GLOMERULAR FILTRATION RATE > 60.0 (>32); GLUCOSE, FASTING 98 MG/DL (70-100); POTASSIUM SERUM 4.1 MEQ/L (3.5-5.1); SODIUM LEVEL 142 MEQ/L (136-145); TOTAL PROTEIN 5.6 GM/DL (6.4-8.2)
[2021-04-05 18:38] LABS: ERYTHROCYTE SEDIMENTATION RATE 28 mm/hr (0-30)
== END ==
LOC: M SHH 16:35
PROVIDERS: ATTEND Nurse Practitioner
DX: T82.7XXS Infection and inflammatory reaction due to other cardiac and vascular devices, implants and grafts, sequela (principal); Z79.2 Long term (current) use of antibiotics

== ENCOUNTER → 2021-04-13 | Outpatient (REF) | payer MEDICARE ==
[2021-04-13 13:52] LABS: BASO # 0.1 10^3/uL (0.0-0.2); BASO % 1.1 % (0.0-1.0); EOS # 0.6 10^3/uL (0.0-0.5); EOS % 8.8 % (0.0-3.0); HEMATOCRIT 32.4 % (36.0-47.0); LYMPH # 1.7 10^3/uL (1.5-5.0); LYMPH % 23.4 % (24.0-44.0); MEAN CORPUSCULAR HGB CONC 30.9 g/dl (32.0-36.5); MEAN CORPUSCULAR VOLUME 97.3 fl (80.0-96.0); MONO # 0.8 10^3/uL (0.0-0.8); MONO % 10.6 % (2.0-8.0); PLATELET COUNT, AUTOMATED 214 10^3/uL (150-450); RED BLOOD COUNT 3.33 10^6/uL (4.00-5.40); WHITE BLOOD COUNT 7.2 10^3/uL (4.0-10.0)
[2021-04-13 14:14] LABS: ERYTHROCYTE SEDIMENTATION RATE 31 mm/hr (0-30)
[2021-04-13 14:26] LABS: ALBUMIN 2.7 GM/DL (3.2-5.2); ALT/SGPT 15 U/L (12-78); BILIRUBIN,TOTAL 0.4 MG/DL (0.2-1.0); BLOOD UREA NITROGEN 17 MG/DL (7-18); CALCIUM LEVEL 8.6 MG/DL (8.8-10.2); CARBON DIOXIDE LEVEL 28 MEQ/L (21-32); CHLORIDE LEVEL 106 MEQ/L (98-107); CREATININE FOR GFR 0.74 MG/DL (0.55-1.30); GLOMERULAR FILTRATION RATE > 60.0 (>32); GLUCOSE, FASTING 86 MG/DL (70-100); POTASSIUM SERUM 4.3 MEQ/L (3.5-5.1); SODIUM LEVEL 139 MEQ/L (136-145); TOTAL PROTEIN 5.8 GM/DL (6.4-8.2)
== END ==
LOC: M SHH 13:25
PROVIDERS: ATTEND Nurse Practitioner
DX: Z79.2 Long term (current) use of antibiotics (principal); T82.7XXS Infection and inflammatory reaction due to other cardiac and vascular devices, implants and grafts, sequela

== ENCOUNTER → 2021-04-19 | Outpatient (REF) | payer MEDICARE ==
[~2021-04-19] MED LIST changes: -KLOR10TA76 PO; +POTA-136 PO
[2021-04-19 15:52] LABS: BASO # 0.1 10^3/uL (0.0-0.2); BASO % 1.6 % (0.0-1.0); EOS # 0.7 10^3/uL (0.0-0.5); EOS % 11.9 % (0.0-3.0); HEMATOCRIT 32.3 % (36.0-47.0); LYMPH # 1.2 10^3/uL (1.5-5.0); LYMPH % 20.7 % (24.0-44.0); MEAN CORPUSCULAR HEMOGLOBIN 30.1 pg (27.0-33.0); MEAN CORPUSCULAR VOLUME 97.3 fl (80.0-96.0); MONO # 0.7 10^3/uL (0.0-0.8); MONO % 12.5 % (2.0-8.0); NEUTROPHILS % 53.1 % (36.0-66.0); PLATELET COUNT, AUTOMATED 204 10^3/uL (150-450); RED BLOOD COUNT 3.32 10^6/uL (4.00-5.40); WHITE BLOOD COUNT 5.7 10^3/uL (4.0-10.0)
[2021-04-19 16:44] LABS: ALBUMIN 2.8 GM/DL (3.2-5.2); ALT/SGPT 17 U/L (12-78); BILIRUBIN,TOTAL 0.4 MG/DL (0.2-1.0); BLOOD UREA NITROGEN 16 MG/DL (7-18); CALCIUM LEVEL 8.5 MG/DL (8.8-10.2); CARBON DIOXIDE LEVEL 27 MEQ/L (21-32); CHLORIDE LEVEL 105 MEQ/L (98-107); CREATININE FOR GFR 0.81 MG/DL (0.55-1.30); GLOMERULAR FILTRATION RATE > 60.0 (>32); GLUCOSE, FASTING 125 MG/DL (70-100); SODIUM LEVEL 141 MEQ/L (136-145); TOTAL PROTEIN 5.9 GM/DL (6.4-8.2)
[2021-04-19 17:16] LABS: ERYTHROCYTE SEDIMENTATION RATE 27 mm/hr (0-30)
== END ==
LOC: M SHH 15:34
PROVIDERS: ATTEND Internal Medicine Infectious Disease
DX: B99.9 Unspecified infectious disease (principal)

== ENCOUNTER → 2021-05-10 | Outpatient (CLI) | payer MEDICARE ==
[2021-05-10 16:40] LABS: BASO # 0.1 10^3/uL (0.0-0.2); EOS # 1.3 10^3/uL (0.0-0.5); EOS % 14.2 % (0.0-3.0); HEMATOCRIT 35.9 % (36.0-47.0); HEMOGLOBIN 11.2 g/dl (12.0-15.5); LYMPH # 1.9 10^3/uL (1.5-5.0); LYMPH % 20.2 % (24.0-44.0); MEAN CORPUSCULAR HEMOGLOBIN 30.1 pg (27.0-33.0); MEAN CORPUSCULAR HGB CONC 31.2 g/dl (32.0-36.5); MEAN CORPUSCULAR VOLUME 96.5 fl (80.0-96.0); MONO # 0.7 10^3/uL (0.0-0.8); MONO % 7.2 % (2.0-8.0); NEUTROPHILS # 5.3 10^3/uL (1.5-8.5); NEUTROPHILS % 57.1 % (36.0-66.0); PLATELET COUNT, AUTOMATED 244 10^3/uL (150-450); RED BLOOD COUNT 3.72 10^6/uL (4.00-5.40); WHITE BLOOD COUNT 9.2 10^3/uL (4.0-10.0)
[2021-05-10 17:13] LABS: ERYTHROCYTE SEDIMENTATION RATE 63 mm/hr (0-30)
[2021-05-10 17:21] LABS: ALBUMIN 3.4 GM/DL (3.2-5.2); ALT/SGPT 14 U/L (12-78); BILIRUBIN,TOTAL 0.3 MG/DL (0.2-1.0); BLOOD UREA NITROGEN 15 MG/DL (7-18); C REACTIVE PROTEIN QUANTITATIV 0.42 MG/DL (0.00-0.30); CALCIUM LEVEL 9.2 MG/DL (8.8-10.2); CARBON DIOXIDE LEVEL 32 MEQ/L (21-32); CHLORIDE LEVEL 104 MEQ/L (98-107); CREATININE FOR GFR 0.82 MG/DL (0.55-1.30); GLOMERULAR FILTRATION RATE > 60.0 (>32); GLUCOSE, FASTING 222 MG/DL (70-100); POTASSIUM SERUM 3.8 MEQ/L (3.5-5.1); SODIUM LEVEL 142 MEQ/L (136-145); TOTAL PROTEIN 6.9 GM/DL (6.4-8.2)
== END ==
LOC: M WUC 13:26
PROVIDERS: ATTEND Internal Medicine Infectious Disease
DX: B99.9 Unspecified infectious disease (principal)

== ENCOUNTER → 2021-06-16 | Outpatient (CLI) | payer MEDICARE ==
[2021-06-16 16:35] LABS: BASO # 0.1 10^3/uL (0.0-0.2); BASO % 0.8 % (0.0-1.0); EOS # 0.3 10^3/uL (0.0-0.5); EOS % 4.7 % (0.0-3.0); HEMATOCRIT 38.5 % (36.0-47.0); HEMOGLOBIN 11.9 g/dl (12.0-15.5); LYMPH # 1.9 10^3/uL (1.5-5.0); LYMPH % 25.9 % (24.0-44.0); MEAN CORPUSCULAR HEMOGLOBIN 30.9 pg (27.0-33.0); MEAN CORPUSCULAR HGB CONC 30.9 g/dl (32.0-36.5); MONO # 0.6 10^3/uL (0.0-0.8); MONO % 8.5 % (2.0-8.0); NEUTROPHILS # 4.3 10^3/uL (1.5-8.5); PLATELET COUNT, AUTOMATED 218 10^3/uL (150-450); RED BLOOD COUNT 3.85 10^6/uL (4.00-5.40); WHITE BLOOD COUNT 7.2 10^3/uL (4.0-10.0)
[2021-06-16 17:14] LABS: ALBUMIN 3.3 GM/DL (3.2-5.2); ALT/SGPT 15 U/L (12-78); BILIRUBIN,TOTAL 0.4 MG/DL (0.2-1.0); BLOOD UREA NITROGEN 16 MG/DL (7-18); CALCIUM LEVEL 9.2 MG/DL (8.8-10.2); CARBON DIOXIDE LEVEL 27 MEQ/L (21-32); CHLORIDE LEVEL 107 MEQ/L (98-107); CREATININE FOR GFR 0.84 MG/DL (0.55-1.30); GLOMERULAR FILTRATION RATE > 60.0 (>32); GLUCOSE, FASTING 189 MG/DL (70-100); POTASSIUM SERUM 4.3 MEQ/L (3.5-5.1); SODIUM LEVEL 141 MEQ/L (136-145); TOTAL PROTEIN 6.5 GM/DL (6.4-8.2)
[2021-06-16 17:30] LABS: ERYTHROCYTE SEDIMENTATION RATE 43 mm/hr (0-30)
== END ==
LOC: M WUC 13:34
DX: B99.9 Unspecified infectious disease (principal)

== ENCOUNTER 2021-06-21 21:57 | Inpatient (IN) | payer MEDICARE ==
[~2021-06-21] VITALS: Ht 162.6 cm; Wt 53.9 kg
--- NOTE | 2021-06-21 23:32 | REPVR ---
PROCEDURE INFORMATION: Exam: CT Head Without Contrast Exam date and time: 06/21/2021 10:46 PM Age: 86 years old Clinical indication: Injury or trauma; Fall; Blunt trauma (contusions or hematomas); Additional info: Fall on clopidgrel TECHNIQUE: Imaging protocol: Computed tomography of the head without contrast. Radiation optimization: All CT scans at this facility use at least one of these dose optimization techniques: automated exposure control; mA and/or kV adjustment per patient size (includes targeted exams where dose is matched to clinical indication); or iterative reconstruction. COMPARISON: CT Head without contrast 02/27/2021 1:29 PM FINDINGS: Brain: There is no evidence of intracranial bleed. No evidence of mass effect. Cerebral ventricles: Normal appearing ventricles. Paranasal sinuses: There is focal mucosal thickening and a mucous retention cyst right maxillary sinus. Mastoid air cells: Clear mastoid air cells. Bones/joints: There is no evidence of fracture. Soft tissues: Unremarkable. IMPRESSION: No evidence of fracture and no evidence of bleed. Electronically signed by: Josse Pastor On 06/21/2021 23:30:55 PM
--- NOTE | 2021-06-21 23:36 | REPVR ---
PROCEDURE INFORMATION: Exam: CT Cervical Spine Without Contrast Exam date and time: 06/21/2021 10:46 PM Age: 86 years old Clinical indication: Injury or trauma; Fall; Blunt trauma; Additional info: Fall on eliquis TECHNIQUE: Imaging protocol: Computed tomography images of the cervical spine without contrast. Radiation optimization: All CT scans at this facility use at least one of these dose optimization techniques: automated exposure control; mA and/or kV adjustment per patient size (includes targeted exams where dose is matched to clinical indication); or iterative reconstruction. COMPARISON: CT Head without contrast 02/27/2021 1:29 PM FINDINGS: Vertebrae: The cervical vertebra and facet joints appear in alignment. There is no evidence of fracture. The dens appears intact in the lateral masses of C1 appear symmetric. Soft tissues: There is no evidence of soft tissue swelling. Thyroid: Small thyroid nodules are noted left lobe of the thyroid. Vasculature: There is calcification of the carotid bifurcation bilaterally consistent with atherosclerotic changes. Lungs: There is apical pleural thickening right and left upper thorax. IMPRESSION: 1. No evidence of fracture. 2. Prominent degenerative changes with facet hypertrophy. 3. Prominent calcification atherosclerotic change right left carotid bifurcation. COMMENTS: Consistent with the [employer]'s Incidental Findings Committee white paper (J Am Seth Radiol 2015): In patients aged 35 years and older with an incidental thyroid nodule equal to or greater than 1.[address], MRI or extrathyroidal US, further evaluation with dedicated thyroid US is recommended for patients with normal life expectancy and without comorbidities. For smaller nodules without suspicious features, no further evaluation or follow up is recommended. Electronically signed by: Josse Pastor On 06/21/2021 23:36:11 PM
[2021-06-22 00:32] LABS: BASO % 0.5 % (0.0-1.0); EOS # 0.3 10^3/uL (0.0-0.5); EOS % 3.7 % (0.0-3.0); HEMATOCRIT 37.4 % (36.0-47.0); LYMPH # 1.6 10^3/uL (1.5-5.0); LYMPH % 21.6 % (24.0-44.0); MEAN CORPUSCULAR HEMOGLOBIN 31.2 pg (27.0-33.0); MEAN CORPUSCULAR HGB CONC 32.1 g/dl (32.0-36.5); MEAN CORPUSCULAR VOLUME 97.1 fl (80.0-96.0); MONO # 0.7 10^3/uL (0.0-0.8); MONO % 9.2 % (2.0-8.0); NEUTROPHILS # 4.8 10^3/uL (1.5-8.5); NEUTROPHILS % 64.7 % (36.0-66.0); PLATELET COUNT, AUTOMATED 195 10^3/uL (150-450); RED BLOOD COUNT 3.85 10^6/uL (4.00-5.40); WHITE BLOOD COUNT 7.4 10^3/uL (4.0-10.0)
[2021-06-22 00:44] LABS: INR 1.28; PROTHROMBIN TIME 16.4 SECONDS (12.7-14.5)
[2021-06-22 00:45] LABS: PARTIAL THROMBOPLASTIN TIME 33.2 SECONDS (25.9-37.0)
--- NOTE | 2021-06-22 00:47 | REPVR ---
PROCEDURE INFORMATION: Exam: XR Chest Exam date and time: 06/21/2021 11:41 PM Age: 86 years old Clinical indication: Other: CVA TECHNIQUE: Imaging protocol: XR of the chest. Views: 1 view. COMPARISON: Chest x-ray March 09, 2020. Prior report has not been made available for review at the time of this emergent interpretation, however was requested. FINDINGS: LUNGS and PLEURAL SPACE: The lungs are symmetrically expanded. Lung volumes are slightly pronounced the which could be correlated for underlying changes of COPD/emphysema. Mild parenchymal scarring again noted at the left lung base. No evidence of peribronchial thickening. There is no consolidation, pneumothorax, or pleural effusion. No evidence of pulmonary vascular redistribution or overt edema. - MEDIASTINUM: There is no mediastinal shift or widening. - CARDIAC SILHOUETTE: Cardiothoracic ratio is within normal limits. Aortic atherosclerosis. - BONY THORAX: No acute findings are seen. - IMPRESSION: No acute infiltrate. Other findings discussed above. Electronically signed by: Pradip Pang On 06/22/2021 00:46:38 AM
--- OUTSIDE RECORDS SUMMARY | 2021-06-22 00:47 | CCD ---
Author Author [facility] Organization [facility] [facility] Address Unknown Phone Unavailable Care Team Providers Care Mental Health Specialist Name Role Phone María Elena Moody Unavailable PROBLEMS ALLERGIES ENCOUNTERS from 1935 to 2021-06-07 IMMUNIZATIONS SOCIAL HISTORY REASON FOR REFERRAL No Information VITAL SIGNS MEDICATIONS PROCEDURES No Information RESULTS No Results REASON FOR VISIT MEDICAL (GENERAL) HISTORY Goals Section Health Concerns MEDICAL EQUIPMENT No Information MENTAL STATUS FUNCTIONAL STATUS ASSESSMENTS PLAN OF TREATMENT Insurance Providers
--- OUTSIDE RECORDS SUMMARY | 2021-06-22 00:47 | CCD ---
Author Author [facility] Organization [facility] Address Unknown Phone Unavailable Care Team Providers Care Boning Room Worker Name Role Phone María Elena Moody Unavailable PROBLEMS Type Condition ICD9-CM Code GTU99-AC Code Onset Dates Condition S tatus W/U Status Risk SNOMED Code Notes Problem Allergic rhinitis, unspecifi ed allergic rhinitis trigger, unspecified rhinitis seasonality J30.9 Active confirmed 98361653 Problem Essential hypertension I10 Active confirmed 47260543 Problem Lumbago with sciatica, unspecified side M54.40 Active confirmed 536174695 Problem Hx of myocardial infarction I25.2 Active confirmed 336356210 Problem Primary osteoarthritis of left knee M17.12 Acti ve confirmed [id number] Problem Other chronic pain G89.29 Active confirmed 8 3732270 Problem Claudication of left lower extremity I73.9 Act lisa confirmed 57670625 Problem Chronic diastolic heart failure I50.32 Active confi rmed 121471780 Problem Iron deficiency anemia, unspecified iron deficiency an emia type D50.9 Active confirmed 50992615 Problem Coronary artery disease invo lving [place] coronary artery of [place] heart without angina pectoris I25.10 Active confirmed 872956 878342040 Problem Chronic obstructive pulmonary disease, unspecified COPD ty pe J44.9 Active confirmed 96994551 Problem COPD exacerbation J44.1 Active confirmed 19 9273424 Problem Pulmonary emphysema, unspecified emphysema type J4 3.9 Active confirmed 97346220 Problem Mixed hyperlipidemia E78.2 Active confirmed 148644327 Problem TIA (transient ischemic attack) G45.9 Active confi rmed 603440201 Problem Degenerative disc disease, lumbar M51.36 Active confirmed 88656559 Problem Tobacco use disorder Z72.0 Active confirmed 73616616 Problem COPD (chronic obstructive pulmonary disease) J44.9 Active confirmed 78873516 Problem Carranza angioma D18.01 Active confirmed 80506 01 Problem 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 Active confirmed 357872665 Problem Peripheral vascular disease I73.9 Active confirmed 657447949 Problem Acute left-sided low back pain with left-sided sciatica M54.42 Active confirmed 688751900 ALLERGIES Allergen (clinical drug ingredient) Drug/Non Drug Allergy do cumented on EMR Reaction Allergy Type Onset Date Status Penicillin (For Allergies Use Only) Anaphylaxis Drug Aller gy Active ENCOUNTERS from 1935 to 2021-05-20 Encounter Location Date Provider Diagnosis [address] [place] [address] 13 May, 2021 María Elena Moody IMMUNIZATIONS Vaccine Route Administration Date Status TDAP 0.5mL Boostrix IM Intramuscular May 20, 2021 Administere d Influenza Pharmacy Given Unknown Jun 10, 2019 Adminis tered Influenza Pharmacy Given IM Intramuscular Jun 01, 2018 Admini stered Influenza 18 yrs & older Flublok IM Intramuscular May 20, 2021 Administered Influenza (High Dose 65 & up) IM Intramuscular Jul 03, 2017 A dministered Influenza (High Dose 65 & up) Unknown Sep 20, 2016 Re fused Zoster 0.65mL Zostavax Unknown Jun 17, 2014 Administe red Pneumococcal 0.5mL Prevnar 13 IM Intramuscular Jun 01, 2018 A dministered Influenza 6mo & up Fluzone IM Intramuscular Jun 14, 2012 Admi nistered SOCIAL HISTORY Tobacco Use: Social History Observation Description Date Details (start date - stop date) Former Smoker Sex Assigned At : Social History Observation Description Sex Assigned At Unknown Education: Question Answer Notes Level of Education: Finished High School Audit Question Answer Notes Total Score: 0 Interpretation: Alcohol Education Language: Question Answer Notes Languages spoken: Italian Religious: Question Answer Notes Religious No yarsani beliefs that would impact health care. Sexual Hx: Question Answer Notes Had sex in the last 12 months (vaginal, oral, or anal)? No Have you ever had an STD? No Drug and Alcohol Question Answer Notes Total Score: 0 Interpretation: No problems reported Tobacco Use: Question Answer Notes Are you a: former smoker How long has it been since you last smoked? 1-5 years 2 1/2 years ago REASON FOR REFERRAL No Information VITAL SIGNS No information MEDICATIONS Medication SIG (Take, Route, Frequency, Duration) Notes Start Da te End Date Status Iron 325 (65 Fe) MG Take 1 tablet by mouth twice daily for 30 Active Gabapentin 600 MG 1 capsule Orally tid not sure on the dose Active Vitamin D3 55003 UNIT Orally Daily Active Zofran 4 MG 1 tablet as needed Orally daily for 30 day(s) Jun, Active Lisinopril 2.5MG 1 tablet Orally Once a day for 90 Active Pantoprazole Sodium 40 MG 1 tablet Orally Once a day for 90 days Active Potassium Chloride ER 10 MEQ TAKE 1 CAPSULE BY MOUTH T WICE DAILY WITH FOOD for 90 Active Albuterol Sulfate HFA 108 (90 Base) MCG/ACT 2 puffs as needed Inhalation every 6 hrs Active Plavix 75MG 1 tablet Orally Daily Ac tive Flagyl 500 MG 1 tablet Orally Three times a day for 10 day(s) Active PreserVision AREDS - Orally Acti ve Nitrostat 0.4 MG 1 tab Sublingual Q5 min X 3 for chest pain for 30 Da ys Active traMADol HCl 50 MG 1 tablet as needed Orally Once a day Active Furosemide 20 MG Take 1 tablet by mouth once daily for 90 Active oxyCODONE-Acetaminophen 5-325 MG 1 tablet as needed Orally every 6 hr s Not-Taking Xarelto 10 MG 1 tablet with food Orally Once a day Active Atorvastatin Calcium 40 MG 1 tablet Orally Once a day Active Fluticasone-Salmeterol 250-50 MCG/DOSE INHALE 1 DOSE B Y MOUTH TWICE DAILY for 30 Active Nebulizer/Tubing/Mouthpiece - as directed for 90 day(s) Feb, Active Carvedilol 3.125 MG Take 1 tablet by mouth twice daily for 90 Active Aspir-81 81 MG 1 tablet Orally Once a day Not-Taking Advair Diskus 250/50 1 puff Inhalation Twice a day Active Benzonatate 100 MG 1 capsule as needed Orally Three times a day Aug, Not-Taking Ipratropium-Albuterol 0.5-2.5 (3) MG/3ML 3 ml as neede d Inhalation every 6 hrs for 30 Days Feb, Active Colace 100 MG 1 capsule as needed Orally Once a day Aug Active Acetaminophen 500 MG 1-2 tablet as needed Orally PRN for pain not to excede 3000 mg 24 hr period strength and frequency change Aug, Ac tive PROCEDURES No Information RESULTS No Results REASON FOR VISIT leg bleeding MEDICAL (GENERAL) HISTORY Type Description Date Medical History hyperlipidemia Medical History macular degeneration Medical History NE 09/19 Medical History stroke Medical History acute NE x2 Medical History COPD Medical History hypertension Medical History peripheral vascular disease Medical History allergic rhinitis Medical History former smoker Medical History history of UGI Bleed 2017 an d 12/2019 s/p Dieulafoy lesion of stomach-clipped Medical History carotid artery disease Surgical History cardiac stent 09/2012 Surgical History cardiac stent 10/2016 Surgical History endo/colonoscope Surgical History angiogram Surgical History colonoscopy Surgical History endoscope Surgical History femoral artery stents 07/2018 Surgical History bilat. cataract extractions Surgical History aortoiliac and femoral popliteal arteria l Surgical History stents x3,balloon placed in left leg Surgical History femeral artery bipass 12/2019 Hospitalization History surgeries Hospitalization History COPD 05/07/15 Hospitalization History 2 heart attacks/1 stroke 09/2016 Hospitalization History [facility] for 1 week 03/2019 Goals Section No Information Health Concerns No Information MEDICAL EQUIPMENT No Information MENTAL STATUS No Information FUNCTIONAL STATUS No Information ASSESSMENTS No Information PLAN OF TREATMENT No Information Insurance Providers Payer Name Payer Address Payer Phone Insured Name Patient Relati onship to Insured Coverage Start Date Coverage End Date MEDICARE COMPLETE [employer] [address] [address] [facility] [id number] BRISEIDA IBARRA self
--- OUTSIDE RECORDS SUMMARY | 2021-06-22 00:47 | CCD | Continuity of Care Document ---
Author Author Nguyen SPARROW MD Organization Unknown Address [address] [place] [address] Phone [phone] Care Team Providers Care Ambulatory Care Coordinator Name Role Phone María Elena Moody AUTM [phone] Kp Metzger M.D. 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 Onset: 07/19/2019 Congestive heart failure Zuhair Levine M.D. Onset: 07/19/20 19 Coronary arteriosclerosis Zuhair Levine M.D. Onset: 019 Pure hypercholesterolemia Zuhair Levine M.D. Onset: 019 Transient cerebral ischemia Zuhair Levine M.D. Onset: 07/19 Cerebrovascular disease Zuhair Levine M.D. Onset: 9 Acute on chronic diastolic heart failure Onset: 11/03/2016 Anemia Onset: 12/24/2020 Chronic obstructive lung disease Onset: 11/03/2016 Coronary arteriosclerosis Onset: 021 Note: Overview: f/u by Dr. Metzger Gastroesophageal reflux disease Onset: 0 01/25/2021 Hyperlipidemia Onset: 01/25/2021 Hypertensive disorder Onset: 01/25/2021 Ischemia of left lower extremity Onset: 12/24/2020 Note: Overview: 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 Myocardial infarction Onset: 11/03/2016 Pain in left lower limb Onset: Patient encounter status Onset: 12/24/19 Peripheral vascular disease Onset: 12/23 Peripheral vascular disease Onset: 10/20 Pneumonia due to Influenza A virus Onset : 11/03/2016 Anemia Onset: 03/11/2021 Atherosclerosis of arteries of the extremities Onset: 03/11/2021 Body temperature above reference range O nset: 03/12/2021 Gastroesophageal reflux disease Onset: 0 03/11/2021 Hyperlipidemia Onset: 03/11/2021 Hypertensive disorder Onset: 03/11/2021 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 Onset: 03/13/2021 Peripheral vascular disease Onset: 03/11 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 Wound dehiscence Onset: 03/11/2021 Social History Type Date Description Comments Sex Unknown ETOH Use Rarely consumes alcohol Tobacco Use Start: Unknown End: Patient is a former smoker hx 1 ppd x 60 years Smoking Status Reviewed: 04/05/21 Patient is a former smoker hx 1 ppd x 60 years Allergies and adverse reactions Active Allergies Criticality Reaction | Severity Comments Date Penicillin Unable to assess criticality Difficulty breathing 07/19/2019 Cipro Unable to assess criticality Anxiety 07/19/2019 Ciprofloxacin Unable to assess criticality Nausea And Vomiting | Se cornelia 02/01/2021 Penicillins Unable to assess criticality Facial Swelling | Severe 02/01/2021 Vancomycin Unable to assess criticality Itching | Severe 02/01/2021 Medications Active Medications SIG Qnty Indications Ordering Provide r Date Gabapentin 300mg Capsules 1 by mouth three times a day 240caps Z48.812 Leoncio Sparrow M.D. 04/28/2021 Nystatin Powder apply to left groin twice a day, avoid left groin wound 1units Leoncio Sparrow M.D. 04/05/2021 Oxycodone-Acetaminophen 5-325mg Ta blets take 0.5-1 tablets by mouth every 8 hours as needed for pain 15tabs Zuhair Chris Levine M.D. 03/17/2021 Santyl 250Unit/GM Ointment Apply topically daily 15units Unknown 01/30/2021 Senna-Docusate Sodium 8.6-50mg Tab lets Take 2 tablets by mouth nightly as needed for constipation 30tabs Unknown 01/29/2021 Ferrous Sulfate 325(65Fe) mg Table ts Take 325 mg by mouth daily Unknown Flagyl 500mg Tablets 1 tab three times a day as directed Unknown Tylenol 8 Hour 650mg Tablets ER 1 tablet at night as needed Unknown Potassium Chloride ER 10Meq Capsul es ER Take 10 mEq by mouth 2 (two) times a day Unknown Aspirin Ec Low Dose 81mg Tablets D R Take 81 mg by mouth daily Unknown Ipratropium [place]/Albuterol Sulfate 0.5-2.5(3)mg/3ML Solution Inhale 3 mL every 6 (six) hours as neede d (for shortness of breath) Unknown Docusate Sodium 100mg Capsules Take 100 mg by mouth daily Unknown Lisinopril 2.5mg Tablets Take 2.5 mg by mouth nightly Unknown Pantoprazole Sodium 40mg Tablets D R Take 40 mg by mouth daily Unknown Clopidogrel Bisulfate 75mg Tablets Take 75 mg by mouth daily Unknown Atorvastatin Calcium 40mg Tablets Take 40 mg by mouth nightly Unknown Furosemide 20mg Tablets Take 20 mg by mouth daily Unknown Nitroglycerin 0.4mg Tablets Sub Place 0.4 mg under the tongue every 5 (five) minutes as needed for chest pain Unknown Albuterol Sulfate HFA 108(90Base) mcg/Act Aerosol Inhale 2 puffs 4 (four) times a day as needed for wheezing Unknown [facility] D3 25mcg (1000 Ut) Capsules Take 1,000 Units by mouth nightly Unknown 0 Fluticasone Propionate/Salmeterol 232-14mcg/Act Aerosol Inhale 1 puff Twice Daily Unknown Carvedilol 3.125mg Tablets Take 3.125 mg by mouth 2 (two) times a day Unknown History Medications Meropenem-Sodium Chloride 1GM/50ML Solution Rec Infuse 1g IV Q8h until 04/23/2021 1units Unknown 03/17/2021 - 04/27/2021 Sodium Chloride Flush 0.9% Solutio n 10ml IV before and after dose and blood draws 10units Unknown 03/17/2021 - 03/22/2021 Heparin Sodium Lock Flush 100Unit/ML Solution Infuse 5 mL (500 Units total) into a anabela ous catheter See Admin Instructions After dose and as needed 5units Unknown 021 - 03/22/2021 Azithromycin 250mg Tablets one tab daily for 5 days 5tabs Z95.828 Zuhair Levine M.D. 02/19/2021 - 03/09/2021 Doxycycline Hyclate 100mg Tablets Take 1 tablet (100 mg total) by mouth 2 (two) times a day for 10 days 20tabs Unknown 01/29/2021 - 03/09/2021 Oxycodone-Acetaminophen 5-325mg Ta blets 1 tablet by mouth every 4 hours as needed for pain Reference #: [id number] 30tabs Britton Richards M.D. 01/22/2021 - 02/18/2021 Hydrocodone-Acetaminophen 5-325mg Tablets 1 tablet by mouth every 4 hours as needed for pain 42tabs Neil Toro MD 12/17/2020 - 01/21/2021 Gabapentin 100mg Capsules 2 caps by mouth twice a day 180caps Zuhair Levine M.D. 12/04/2020 - 04/28/2021 Gabapentin 100mg Capsules 1 cap by mouth bid 30donna Levine M.D. 11/16/2020 - 12/04/2020 Gabapentin 300mg Capsules 1 cap by mouth every day at bedtime 30donna Levine M.D. 021 - 11/15/2020 Immunizations CPT Code Status Date Vaccine Lot # [id number] Given 04/29/2020 Influenza Virus Vaccine, Quadrivalent, Split, Preservative Free [id number] Given 06/10/2019 Influenza Virus Split 3 Yrs And Above For Intramuscular Use 52915 Given 06/01/2018 Pneumococcal Con jugate Vaccine 13 Valent For Intramuscular Use 99323 Given 06/01/2018 Influenza Virus Split 3 Yrs And Above For Intramuscular Use 41546 Given 07/03/2017 Influenza Vaccine Split Viru s Preservative Free Im Use 10632 Given 09/20/2016 Influenza Vaccine Split Viru s Preservative Free Im Use 59305 Given 05/30/2016 Influenza Virus Vaccine, Quadrivalent, Split, Preservative Free 12387 Given 08/07/2014 Pneumococcal Vaccine 2Yrs Or Older 92634 Given 06/17/2014 Zoster Shingles Vaccine For Subcutaneous Injection 19048 Given 06/14/2012 Influenza Virus Vaccine, Quadrivalent, Split, Preservative Free 56189 Refused 04/30/2020 Influenza Virus Vaccine, Quadrivalent, Split, Preservative Free Vital Signs Date Vital Result Comment 04/28/2021 1:00pm BP Systolic Right Arm 148 mmHg BP Diastolic Right Arm 54 mmHg Heart Rate 76 /min Body Temperature 95.8 F Height 64 inches 5'4" 04/05/2021 12:48pm BP Systolic Left Arm 140 mmHg BP Diastolic Left Arm 60 mmHg Heart Rate 88 /min Body Temperature 96.2 F Height 64 inches 5'4" Weight 122.00 lb Weight 55.339 kg BMI (Body Mass Index) 20.9 kg/m2 Results Test Acquired Date Facility Test Result H/L Range Note CBC 03/18/2021 N2N/CCD Import WBC 6.7 10*3/uL 4.10 - 11.00 RBC 2.76 10*6/uL Low 4.00 - 5.40 Hemoglobin 8.3 g/dL Low 12.0 - 16.0 Hematocrit 25.2 % Low 36.00 - 47.00 MCV 91.4 fL 80.0 - 95.0 MCH 29.9 pg 27.0 - 32.0 MCHC 32.8 g/dL 32 - 36 RDW 13.7 % 10.5 - 14.5 Platelets 261 10*3/uL 150 - 450 MPV 7.5 fL 7.1 - 10.7 BMP 03/18/2021 N2N/CCD Import Sodium 141 mmol/L 136 - 145 Potassium 4.0 mmol/L 3.6 - 5.2 Chloride 106 mmol/L 100 - 108 Co2 32 mmol/L High 22 - 31 Anion Gap 3 mmol/L Low 7 - 16 Urea nitrogen 16 mg/dL 7 - 24 Creatinine 0.65 mg/dL 0.60 - 1.00 BUN/Creatinine Ratio 24.6 High 10.0 - 20.0 Ratio Glucose 89 mg/dL 70 - 99 Calcium 8.1 mg/dL Low 8.4 - 10.2 GFR MDRD Non Af Amer >60 >59 ml/min/1.73m2 GFR MDRD Af Amer >60 >59 ml/min/1.73m2 Glom Filt Rate, Est See Notes 1 Magnesium 03/16/2021 N2N/CCD Import Magnesium 2.2 mg/dL 1.7 - 2.4 Blood Culture Peripheral x 1 Set (2 bottles aerobi N2N/CCD Import Specimen Description Peripheral Special Requests None Culture Result No Growth 6 Days Report Status 03/16/2021 Final Vancomycin, trough 03/14/2021 N2N/CCD Import Vancomycin Tr 9.9 ug/mL Low 10.0 - 20.0 Anaerobic culture 03/13/2021 N2N/CCD Import Specimen Description Non-Surg Soft Tissue Swab L Groin Wound Special Requests None Culture Result Few Bacteroides Fragilis Report Status 03/13/2021 Final Wound culture 03/13/2021 N2N/CCD Import Specimen Description Left Groin Wound Special Requests None Gram Stain Result See Note 2 Culture Result No Growth Report Status 03/13/2021 Final Hemoglobin and hematocrit, blood 03/12/2021 N2N/CCD Import Hemoglobin 9.9 g/dL Low 12.0 - 16.0 Hematocrit 29.1 % Low 36.00 - 47.00 [facility] Histology 03/12/2021 N2N/CCD Import Histology See Note 3 Aerobic Fluid Culture / GS 03/12/2021 N2N/CCD Impor t Specimen Description Non-Surg Soft Tissue Swab L Groin Wound Special Requests None Gram Stain Result Not Done Culture Result See Note 4 Report Status 03/11/2021 Final MRSA nasal screen by PCR 03/11/2021 N2N/CCD Import Specimen Description Nares MRSA by PCR Negative Negative aPTT 03/10/2021 N2N/CCD Import aPTT 27.9 s 22.0 - 34.3 Laboratory test finding 03/10/2021 [facility] [place] [phone] Wound Culture SPECIMEN DESCRIP <SEE NOTE> 5 Covid/Flu AB/RSV PCR 03/10/2021 N2N/CCD Import Specimen Description Nasopharyngeal Influenza A Negative Negative Influenza B Negative Negative RSV Negative Negative Comment See Notes 6 Covid19 Result Not Detected Not Detected 7 First Test No Employed In [employer] No Symptomatic No Date Of Sympt Onset Not Applicable Hospitalized No Icu No Congregate Care Set No No Protime-Inr 03/10/2021 N2N/CCD Import Protime 11.3 s 9.20 - 11.90 Inr 1.08 8 Comprehensive metabolic panel 03/10/2021 N2N/CCD Im port Sodium 142 mmol/L 136 - 145 Potassium 3.9 mmol/L 3.6 - 5.2 Chloride 106 mmol/L 100 - 108 Co2 28 mmol/L 22 - 31 Anion Gap 8 mmol/L 7 - 16 Urea nitrogen 12 mg/dL 7 - 24 Creatinine 0.64 mg/dL 0.60 - 1.00 BUN/Creatinine Ratio 18.8 10.0 - 20.0 Ratio Glucose 118 mg/dL High 70 - 99 Calcium 8.4 mg/dL 8.4 - 10.2 Protein, Total 6.8 g/dL 6.4 - 8.2 Albumin 3.4 g/dL 3.2 - 4.5 Globulin 3.4 g/dL 2.7 - 4.3 Alb/Glob ratio 1.0 Ratio Alkaline Phosphatase 83 U/L 45 - 117 Bilirubin, Total 0.4 mg/dL 0.0 - 1.0 9 Ast 10 U/L Low 11 - 39 Alt 11 U/L Low 12 - 78 GFR MDRD Non Af Amer >60 >59 ml/min/1.73m2 GFR MDRD Af Amer >60 >59 ml/min/1.73m2 Glom Filt Rate, Est See Notes 10 Xray 03/01/2021 Main Office [phone] Carotid Ultrasound Bilateral <pending> Basic metabolic panel 01/29/2021 N2N/CCD Import Sodium 146 mmol/L High 136 - 145 Potassium 4.1 mmol/L 3.6 - 5.2 Chloride 112 mmol/L High 100 - 108 Co2 28 mmol/L 22 - 31 Anion Gap 6 mmol/L Low 7 - 16 Urea nitrogen 15 mg/dL 7 - 24 Creatinine 0.82 mg/dL 0.60 - 1.00 BUN/Creatinine Ratio 18.3 10.0 - 20.0 Ratio Glucose 108 mg/dL High 70 - 99 Calcium 8.4 mg/dL 8.4 - 10.2 GFR MDRD Non Af Amer >60 >59 ml/min/1.73m2 GFR MDRD Af Amer >60 >59 ml/min/1.73m2 Glom Filt Rate, Est See Notes 11 CBC 01/29/2021 N2N/CCD Import WBC 7.0 10*3/uL 4.10 - 11.00 RBC 2.69 10*6/uL Low 4.00 - 5.40 Hemoglobin 8.6 g/dL Low 12.0 - 16.0 Hematocrit 26.0 % Low 36.00 - 47.00 MCV 96.7 fL High 80.0 - 95.0 MCH 31.9 pg 27.0 - 32.0 MCHC 33.0 g/dL 32 - 36 RDW 15.5 % High 10.5 - 14.5 Platelets 173 10*3/uL 150 - 450 MPV 7.3 fL 7.1 - 10.7 Type and screen 01/25/2021 N2N/CCD Import Specimen Expiration Date 01/28/2021 Patient Abo/Rh O Positive Antibody Screen Negative Testing site Performed AT [address] [place] [address] Blood bank comment See Notes 12 Aptt 01/25/2021 N2N/CCD Import aPTT 24.7 s 22.0 - 34.3 Protime-Inr 01/25/2021 N2N/CCD Import Protime 11.2 s 9.20 - 11.90 Inr 1.07 13 Covid/Flu AB/RSV PCR 01/25/2021 N2N/CCD Import Specimen Description Nasopharyngeal Influenza A Negative Negative Influenza B Negative Negative RSV Negative Negative Comment See Notes 14 Covid19 Result Not Detected Not Detected 15 First Test No Employed In [employer] No Symptomatic No Date Of Sympt Onset Not Applicable Hospitalized No Icu No Congregate Care Set No No Xray 01/20/2021 Main Office [phone] Bypass Graft Ultrasound Lower Extremity Left <pending> Xray 12/17/2020 PT Choice Bypass Graft Ultrasound Lower Extremity Left <pending> 1 NORMAL KIDNEY FUNCTION OR MILD DISEASE - GFR >OR= 60 CHRONIC KIDNEY DISEASE - GFR 15 - 59 RENAL FAILURE - GFR <15 Est. GFR calculation based on the MDRD study equation, which assumes a steady state for creatinine. Est. GFR should not be used for medication dosing. 2 Moderate (10 To 25/LPF) Whit e Blood Cellsrare (<1/LPF) Epithelial Cellsno Bacteria 3 [facility] [address] [place], [place] [address]Koo# Surgical Pathology ReportPatient Name: Nguyen Jimenez: 1936ccession #:[id number](s) ReceivedA: Old left femoral popliteal graftClinical Diagnosis and HistoryLeft groin woundDIAGNOSISOLD Left Femoral Popliteal Graft: Prosthetic Graft (Gross Diagnosis).Gross DescriptionReceived in formalin, the specimen is labeled "old left femoral poplitealgraft" and consists of a prosthetic vascular graft measuring 7.5 x 0.6 x0.6 cm. Red-white tissue is attached to the graft. No sections submitted.Gross only.smmgmm/gmm Reported: 03/12/2021Electronically Signed Out By Ashish Camacho M.D. [facility] [place], [place] [id number] component performed at [facility], Histopathology, [address] [place] [address], [phone].Reported at [facility], [address] [place] [address], [phone]. This report may includeimmunohistochemical or in-situ hybridization results. Testing wasdeveloped and the performance characteristics determined by [facility], [facility] as required by Clia '88. The Fda hasdetermined that approval for specific use is not necessary for clinicaluse. The quality of Hematoxylin and Eosin stains and as applicable, forall immunohistochemical and/or special stains, including positive andnegative controls, were reviewed and considered appropriate.Icd codes T82.898Acpt codesA: 37589Q 4 Test(S) Processed Under New Entry Please See [facility] T11381. 114202 57515. 5 SPECIMEN DESCRIPTION GROIN LEFT SPECIAL REQUESTS NONE GRAM STAIN MODERATE (10 TO 25/LPF) WHITE BLOOD CELLS RARE (<1/LPF) EPITHELIAL CELLS NO BACTERIA CULTURE RESULTS FEW NORMAL ZULEIKA CONSISTENT WITH SPECIMEN TYPE NO BETA HEMOLYTIC STREPTOCOCCI ISOLATED NO STAPHYLOCOCCUS AUREUS ISOLATED NOTE: BIOCHEMICAL IDENTIFICATION SYSTEMS WERE SET UP ON SUSPECT COLONIES TO R/O PATHOGENS. REPORT STATUS FINAL 03/12/2021 6 SEE NOTE: THE U.S. FDA HAS M JUN THIS TEST AVAILABLE UNDER AN EMERGENCY USE AUTHORIZATION (EUA) FOR THE DETECTION AND/OR DIAGNOSIS OF THE VIRUS THAT CAUSES COVID-19. PERFORMED AT [address] [place] [id number] THIS ASSAY AMPLIFIES AND DET ECTS THE TARGET RNA USING REAL-TIME PCR. TESTING PERFORMED ON [employer] NEGATIVE 2019_NCOV RT-PCR RESULTS DO NOT PRECLUDE 2019_NCOV INFECTION AND SHOULD NOT BE USED THE SOLE BASIS FOR PATIENT MANAGEMENT DECISIONS. 8 SUGGESTED THERAPEUTIC RANGES USING INR FOR STABILIZED ANTICOAGULATED PATIENTS: STANDARD DOSE THERAPY INR 2.0-3.0 DVT, PE, PREVENT DVT OR EMBOLISM HIGH DOSE THERAPY INR 2.5-3.5 PREVENT EMBOLISM FROM MECHANICAL HEART VALVE 9 PLEASE NOTE: Total bilirubin results may be falsely elevated in patients taking Eltrombopag. 10 NORMAL KIDNEY FUNCTION OR MILD DISEASE - GFR >OR= 60 CHRONIC KIDNEY DISEASE - GFR 15 - 59 RENAL FAILURE - GFR <15 Est. GFR calculation based on the MDRD study equation, which assumes a steady state for creatinine. Est. GFR should not be used for medication dosing. 11 NORMAL KIDNEY FUNCTION OR MILD DISEASE - GFR >OR= 60 CHRONIC KIDNEY DISEASE - GFR 15 - 59 RENAL FAILURE - GFR <15 Est. GFR calculation based on the MDRD study equation, which assumes a steady state for creatinine. Est. GFR should not be used for medication dosing. 12 BLOOD TYPE CONFIRMED. 13 SUGGESTED THERAPEUTIC RANGES USING INR FOR STABILIZED ANTICOAGULATED PATIENTS: STANDARD DOSE THERAPY INR 2.0-3.0 DVT, PE, PREVENT DVT OR EMBOLISM HIGH DOSE THERAPY INR 2.5-3.5 PREVENT EMBOLISM FROM MECHANICAL HEART VALVE 14 SEE NOTE: THE U.S. FDA HAS M JUN THIS TEST AVAILABLE UNDER AN EMERGENCY USE AUTHORIZATION (EUA) FOR THE DETECTION AND/OR DIAGNOSIS OF THE VIRUS THAT CAUSES COVID-19. PERFORMED AT [address] [place] [address] 15 THIS ASSAY AMPLIFIES AND DET ECTS THE TARGET RNA USING REAL-TIME PCR. TESTING PERFORMED ON [employer] NEGATIVE 2019_NCOV RT-PCR RESULTS DO NOT PRECLUDE 2019_NCOV INFECTION AND SHOULD NOT BE USED THE SOLE BASIS FOR PATIENT MANAGEMENT DECISIONS. Procedures Date Code Description Status 03/11/2021 28809 Adj Tissue Tranfser Any Area; De fect 30.1 SQ CM To 60.0 SQ CM Completed 03/11/2021 86414 Excision Infected Graft Extremit y Completed 03/10/2021 56972 Office/Outpatient Established Hi gh MDM 40-54 Min Completed 03/01/2021 97226 Office/Outpatient Established Mo d MDM 30-39 Min Completed 03/01/2021 74432 Duplex Scan Extracranial Arterie s, Complete Bilateral Study Completed 02/19/2021 39095 Office/Outpatient Established Lo w MDM 20-29 Min Completed 01/28/2021 85359 Moderate Sedation Se rvices; Same Phys Intl 15 Mins; PT >= 5 Years Completed 01/28/2021 87064 Fem-Pop Angioplasty/Stent Comple foreign 01/26/2021 17057 Femoral-Popliteal Angioplasty Co mpleted 01/26/2021 84641 Femoral-Popliteal Angioplasty Co mpleted 01/26/2021 17855 Moderate Sedation Se rvices; Same Phys Intl 15 Mins; PT >= 5 Years Completed 01/25/2021 03704 Electrocardiogram Tracing Only C ompleted 01/20/2021 80088 Duplex Scan Lower Extremity, Com plete Bilateral Completed 12/25/2020 24594 Moderate Sedation Se rvices; Same Phys Intl 15 Mins; PT >= 5 Years Completed 12/25/2020 43894 Angiography-Extremity Unilateral Completed 12/25/2020 37091 Fem-Pop Angioplasty/Stent Comple foreign 12/17/2020 05537 Duplex Scan Lower Extremity, Fol low-Up Or Limited Completed 12/17/2020 49468 Duplex Scan Lower Extremity, Fol low-Up Or Limited Completed Medical Devices Active Inactive Description Device Identifier Assigning Authority 04/28/2020 Synthetic vascular graft [id number] [facility] 12/26/2019 Synthetic vascular graft [id number] [facility] 12/26/2019 Drug-eluting femoral artery sten t ([id number] FDA 12/26/2019 Drug-eluting femoral artery sten t ([id number] [facility] Encounters Type Date Location Provider Dx Diagnosis Office Visit 04/28/2021 1:20p Main Office Leoncio Sparrow M.D. Z48.812 Encntr for surgical aftcr following surgery on the circ sys T82.898S Oth complication of vascular prosth dev/grft, sequela I70.512 [facility] nonaut bio bypass of extrm w intrmt steven, left leg Office Visit 04/05/2021 1:00p Main Office Leoncio Sparrow M.D. Z48.812 Encntr for surgical aftcr following surgery on the circ sys T82.898S Oth complication of vascular prosth dev/grft, sequela B37.2 Candidiasis of skin and nail Office Visit 03/10/2021 1:00p Main Office Leoncio Sparrow M.D. T82.898 A Oth complication of vascular prosth dev/grft, init T82.7xxA Infect/inflm react d/t oth c ardi/vasc dev/implnt/grft, init L76.34 Postproc seroma of skin, sub cu following other procedure Office Visit 03/10/2021 10:15a Main Office Zuhair Levine M.D. Z48.81 2 Encntr for surgical aftcr following surgery on the circ sys Office Visit 03/01/2021 10:45a Main Office Zuhair Levine M.D. 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 Z95.828 Presence of other vascular implants and grafts I70.542 [facility] nonaut bio bypass of the left leg w ulcer of calf I70.511 [facility] nonaut bio bypass of extrm w intrmt steven, right leg Office Visit 01/20/2021 11:30a Main Office Zuhair Levine M.D. I70.54 2 Athscl nonaut bio bypass of the left leg w ulcer of calf Office Visit 01/11/2021 2:45p Main Office Leoncio Sparrow M.D. Z48.812 Encntr for surgical aftcr following surgery on the circ sys Office Visit 12/17/2020 1:00p Main Office Robert Dickinson I70.222 [facility] [employer] arteries of extremities w rest pain, left leg Office Visit 11/16/2020 11:15a Main Office Zuhair Leivne M.D. Z48.81 2 Encntr for surgical aftcr following surgery on the circ sys Office Visit 11/02/2020 1:30p Main Office Robert Dickinson Z48.812 Encntr for surgical aftcr following surgery on the circ sys Assessments Date Code Description Provider 04/28/2021 Z48.812 Encounter for surgic al aftercare following surgery on the circulatory system Leoncio Sparrow M.D. 04/28/2021 T82.898S Other specified comp lication of vascular prosthetic devices, implants and grafts, kiersten Sparrow M.D. 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 04/05/2021 Z48.812 Encounter for surgic al aftercare following surgery on the circulatory system Leoncio Sparrow M.D. 04/05/2021 T82.898S Other specified comp lication of vascular prosthetic devices, implants and grafts, kiersten Sparrow M.D. 04/05/2021 B37.2 Candidiasis of skin and nail Leoncio Sparrow M.D. 03/11/2021 T82.7xxA Infection and inflam matory reaction due to other cardiac and vascular devices, implants and grafts, initial encounter Leoncio Sparrow M.D. 03/11/2021 Z95.828 Presence of other vascular impla nts and grafts Leoncio Sparrow M.D. 03/11/2021 T82.898A Other specified comp lication of vascular prosthetic devices, implants and grafts, initial encounter Leoncio Sparrow M.D. 03/10/2021 Z48.812 Encounter for surgic al aftercare following surgery on the circulatory system Zuhair Levine M.D. 03/10/2021 T82.898A Other specified comp lication of vascular prosthetic devices, implants and grafts, initial encounter Leoncio Sparrow M.D. 03/10/2021 T82.7xxA Infection and inflam matory reaction due to other cardiac and vascular devices, implants and grafts, initial encounter Leoncio Sparrow M.D. 03/10/2021 L76.34 Postprocedural serom a of skin and subcutaneous tissue following other procedure Leoncio Sparrow M.D. 03/01/2021 I70.223 Atherosclerosis of n ative arteries of extremities with rest pain, bilateral legs uZhair Levine M.D. 03/01/2021 I65.23 Occlusion and stenosis of bilate ral carotid arteries Zuhair Levine M.D. 03/01/2021 I65.23 Occlusion and stenosis of bilate ral carotid arteries Zuhair Levine M.D. 03/01/2021 I65.23 Occlusion and stenosis of bilate ral carotid arteries Vascular Lab 02/19/2021 Z95.828 Presence of other vascular impla nts and grafts Leoncio Sparrow M.D. 02/19/2021 I70.542 Atherosclerosis of n onautologous biological bypass graft(s) of the left leg with ulceration of calf Leoncio Sparrow M.D. 02/19/2021 I70.511 Atherosclerosis of n onautologous biological bypass graft(s) of the extremities with intermittent claudication, right leg Leoncio Sparrow M.D. 01/28/2021 I70.223 Atherosclerosis of n ative arteries of extremities with rest pain, bilateral legs Leoncio Sparrow M.D. 01/28/2021 Z95.828 Presence of other vascular impla nts and grafts Leoncio Sparrow M.D. 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 01/20/2021 Z48.812 Encounter for surgic al aftercare following surgery on the circulatory system Zuhair Levine M.D. 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 01/20/2021 I70.212 Atherosclerosis of n ative arteries of extremities with intermittent claudication, left leg [facility] 01/11/2021 Z48.812 Encounter for surgic al aftercare following surgery on the circulatory system Leoncio Sparrow M.D. 12/25/2020 I70.222 Atherosclerosis of n ative arteries of extremities with rest pain, left leg Leoncio Sparrow M.D. 12/25/2020 Z87.891 Personal history of nicotine dep endence Leoncio Sparrow M.D. 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 12/17/2020 Z48.812 Encounter for surgic al aftercare following surgery on the circulatory system [facility] 12/17/2020 I70.222 Atherosclerosis of n ative arteries of extremities with rest pain, left leg Robert Dickinson 11/16/2020 Z48.812 Encounter for surgic al aftercare following surgery on the circulatory system Zuhair Levine M.D. 11/02/2020 Z48.812 Encounter for surgic al aftercare following surgery on the circulatory system Robert Dickinson Plan of Treatment Future Appointment(s):* 05/12/2021 1:45 pm - Leoncio Sparrow M.D. at Main Office 04/28/2021 - Leoncio Sparrow M.D.* Z48.812 Encntr for surgical aftcr following surgery on the circ sys * T82.898S Oth complication of vascular prosth dev/grft, sequela * I70.512 Athscl nonaut bio bypass of extrm w intrmt steven, left leg * * New Medication:* Gabapentin 300 mg * Follow up:* 2 week OV Functional Status Description No Information Available Mental Status Description No Information Available Referrals Description No Information Available
--- OUTSIDE RECORDS SUMMARY | 2021-06-22 00:47 | CCD | Continuity of Care Document ---
Author Author Nguyen SALDANA Organization Unknown Address [address] [place] [address] Phone [phone] Care Team Providers Care Jewel Hole Driller Name Role Phone María Elena Moody AUTM [phone] Kp Metzger M.D. 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 06/03/2021 [facility] Wound/Burn Dressing Gel apply to left leg daily 1Tube Zuhair Levine M.D. 05/08 Pregabalin 50mg Capsules take 1 capsule by mouth tid reference #: Reference #: [id number] 90caps Leoncio Sparrow M.D. 05/28/2021 Tramadol HCL 50mg Tablets take 1 tablet by mouth every 8 hours as needed for pain 30tabs Zuhair escobar M.D. 05/12/2021 Nystatin Powder apply to left groin twice a day, avoid left groin wound 1units Leoncio Sparrow M.D. 04/05/2021 Santyl 250Unit/GM Ointment apply sarah thick layer daily to left lower leg wound 2 x 1.9 cm x 0.3 cm (30 day supply) 30gm I70.248 Leoncio Sparrow M.D. 01/30/2021 Senna-Docusate Sodium 8.6-50mg Tab lets Take [...] 81 mg by mouth daily Unknown Ipratropium [place]/Albuterol Sulfate 0.5-2.5(3)mg/3ML Solution Inhale 3 mL every [...] (two) times a day Unknown History Medications Pregabalin 50mg Capsules take 1 capsule by mouth three times a day 90caps Leoncio Sparrow M.D. 05/12 - 05/28/2021 Gabapentin 300mg Capsules 2 tabs by mouth three times a day 240caps Leoncio Sparrow M.D. 05/12/2021 - 2021 Gabapentin 300mg Capsules 1 by mouth three times a day 240caps Z48.812 Leoncio Sparrow M.D. 04/28/2021 - 05/12/2021 Meropenem-Sodium Chloride 1GM/50ML Solution Rec Infuse 1g IV Q8h until 04/23/2021 1units Unknown 03/17/2021 - 04/27/2021 Heparin Sodium Lock Flush 100Unit/ML Solution Infuse 5 mL (500 Units total) into a anabela ous catheter See Admin Instructions After dose and as needed 5units Unknown 021 - 03/22/2021 Sodium Chloride Flush 0.9% Solutio n 10ml IV before and after dose and blood draws 10units Unknown 03/17/2021 - 03/22/2021 Oxycodone-Acetaminophen 5-325mg Ta blets take 0.5-1 tablets by mouth every 8 hours as needed for pain Reference #: [id number] 15tabs Zuhair Levine M.D. 03/17/2021 - 05/12/2021 Azithromycin 250mg Tablets one tab daily for 5 days 5tabs Z95.828 Zuhair Levine M.D. 02/19/2021 - 03/09/2021 Doxycycline Hyclate 100mg Tablets Take 1 tablet (100 mg total) by mouth 2 (two) times a day for 10 days 20tabs Unknown 01/29/2021 - 03/09/2021 Oxycodone-Acetaminophen 5-325mg Ta blets 1 tablet by mouth every 4 hours as needed for pain Reference #: [id number] 30tabs Britton Richards M.D. 01/22/2021 - 02/18/2021 Hydrocodone-Acetaminophen 5-325mg Tablets 1 tablet by mouth every 4 hours as needed for pain 42tabs Neil Toro MD 12/17/2020 - 01/21/2021 Gabapentin 100mg Capsules 2 caps by mouth twice a day 180caps Zuhair Levine M.D. 12/04/2020 - 04/28/2021 Immunizations CPT Code Status Date Vaccine Lot # [id number] Given 04/29/2020 Influenza Virus Vaccine, Quadrivalent, Split, Preservative Free 79805 Given 06/10/2019 Influenza Virus Split 3 Yrs And Above For Intramuscular Use 66527 Given 06/01/2018 Pneumococcal Con jugate Vaccine 13 Valent For Intramuscular Use 46146 Given 06/01/2018 Influenza Virus Split 3 Yrs And Above For Intramuscular Use 11976 Given 07/03/2017 Influenza Vaccine Split Viru s Preservative Free Im Use 35633 Given 09/20/2016 Influenza Vaccine Split Viru s Preservative Free Im Use 73589 Given 05/30/2016 Influenza Virus Vaccine, Quadrivalent, Split, Preservative Free 60899 Given 08/07/2014 Pneumococcal Vaccine 2Yrs Or Older 72939 Given 06/17/2014 Zoster Shingles Vaccine For Subcutaneous Injection 12107 Given 06/14/2012 Influenza Virus Vaccine, Quadrivalent, Split, Preservative Free 92916 Refused 04/30/2020 Influenza Virus Vaccine, Quadrivalent, Split, Preservative Free Vital Signs Date Vital Result Comment 06/03/2021 10:11am BP Systolic Left Arm 110 mmHg BP Diastolic Left Arm 50 mmHg Heart Rate 68 /min Body Temperature 94.4 F Height 64 inches 5'4" Weight 125.00 lb Weight 56.700 kg BMI (Body Mass Index) 21.5 kg/m2 05/12/2021 1:33pm BP Systolic Left Arm 110 mmHg BP Diastolic Left Arm 70 mmHg Heart Rate 68 /min Body Temperature 96.3 F Height 64 inches 5'4" Results Test Acquired Date Facility Test Result [...] - 34.3 Laboratory test finding 03/10/2021 [facility] ([phone] - Wound Culture SPECIMEN DESCRIP <SEE NOTE> 5 Covid/Flu AB/RSV PCR 03/10/2021 N2N/CCD Import Specimen Description Nasopharyngeal Influenza A Negative Negative Influenza B Negative Negative RSV Negative Negative Comment See Notes 6 Covid19 Result Not Detected Not Detected 7 First Test No Employed In thcare No [...] See Notes 10 Xray 03/01/2021 Main Office [phone] Carotid Ultrasound Bilateral <pending> Basic metabolic panel [...] Antibody Screen Negative Testing site Performed AT [address] [place] [address] Blood bank comment See Notes 12 Aptt [...] Set No No Xray 01/20/2021 Main Office [phone] Bypass Graft Ultrasound Lower Extremity Left <pending> [...] Blood Cellsrare (<1/LPF) Epithelial Cellsno Bacteria [address] [facility] [place], [place] [address]Tel# Surgical Pathology ReportPatient Name: Nguyen Jimenez: 6Accession #:[id number](s) ReceivedA: Old left femoral popliteal [...] 03/12/2021Electronically Signed Out By Ashish Camacho M.D. [facility] [place] [address] [id number] component performed at [facility], [facility], [address] [place] [address], [address].Reported at [facility], [address] [place] [address], [address]. This report may includeimmunohistochemical or in-situ hybridization results. Testing wasdeveloped and the performance characteristics determined by [employer] as required by [employer] '88. [facility] hasdetermined that approval for specific use is not necessary for clinicaluse. The quality of Hematoxylin and Eosin stains and as applicable, forall immunohistochemical and/or special stains, including positive andnegative controls, were reviewed and considered appropriate.Icd codes T82.898Acpt codesA: 67644X 4 Test(S) Processed Under New Entry Please See [facility] T14423. 103747 27287. 5 SPECIMEN DESCRIPTION GROIN LEFT SPECIAL REQUESTS [...] THE VIRUS THAT CAUSES COVID-19. PERFORMED AT [address] [place] [address] 7 THIS ASSAY AMPLIFIES AND DET ECTS THE TARGET RNA USING REAL-TIME PCR. TESTING PERFORMED ON [employer] NEGATIVE 2019_NCOV RT-PCR RESULTS DO NOT PRECLUDE [...] THE VIRUS THAT CAUSES COVID-19. PERFORMED AT [address] [place] [address] THIS ASSAY AMPLIFIES AND DET ECTS THE TARGET RNA USING REAL-TIME PCR. TESTING PERFORMED ON [employer] NEGATIVE 2019_NCOV RT-PCR RESULTS DO NOT PRECLUDE 2019_NCOV INFECTION AND SHOULD NOT BE USED THE SOLE BASIS FOR PATIENT MANAGEMENT DECISIONS. Procedures Date Code Description Status 03/11/2021 21961 Adj Tissue Tranfser Any Area; De fect 30.1 SQ CM To 60.0 SQ CM Completed 03/11/2021 77228 Excision Infected Graft Extremit y Completed 03/10/2021 07378 Office/Outpatient Established Hi gh MDM 40-54 Min Completed 03/01/2021 50530 Office/Outpatient Established Mo d MDM 30-39 Min Completed 03/01/2021 45657 Duplex Scan Extracranial Arterie s, Complete Bilateral Study Completed 02/19/2021 69876 Office/Outpatient Established Lo w MDM 20-29 Min Completed 01/28/2021 46231 Moderate Sedation Se rvices; Same Phys Intl 15 Mins; PT >= 5 Years Completed 01/28/2021 67018 Fem-Pop Angioplasty/Stent Comple foreign 01/26/2021 13198 Femoral-Popliteal Angioplasty Co mpleted 01/26/2021 96258 Femoral-Popliteal Angioplasty Co mpleted 01/26/2021 15504 Moderate Sedation Se rvices; Same Phys Intl 15 Mins; PT >= 5 Years Completed 01/25/2021 69593 Electrocardiogram Tracing Only C ompleted 01/20/2021 18301 Duplex Scan Lower Extremity, Com plete Bilateral Completed 12/25/2020 73207 Moderate Sedation Se rvices; Same Phys Intl 15 Mins; PT >= 5 Years Completed 12/25/2020 00314 Angiography-Extremity Unilateral Completed 12/25/2020 87687 Fem-Pop Angioplasty/Stent Comple foreign 12/17/2020 13771 Duplex Scan Lower Extremity, Fol low-Up Or Limited Completed 12/17/2020 38860 Duplex Scan Lower Extremity, Fol low-Up Or Limited Completed Medical Devices Active Inactive Description Device Identifier Assigning Authority 04/28/2020 Synthetic vascular graft [id number] 12/26/2019 Synthetic vascular graft [id number] 12/26/2019 Drug-eluting femoral artery sten t [id number] 12/26/2019 Drug-eluting femoral artery sten t [id number] Encounters Type Date Location Provider Dx Diagnosis Office Visit 05/12/2021 1:45p Main Office Leoncio Sparrow M.D. 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 I70.22 3 Athscl tlingit & haida arteries of extrm w rest pain, bilateral [...] 1:00p Main Office Robert Dickinson I70.222 Athscl tlingit & haida arteries of extremities w rest pain, left leg Assessments Date Code Description Provider 05/12/2021 Z48.812 Encounter for surgic al aftercare following surgery on the circulatory system Leoncio Saprrow M.D. 05/12/2021 T82.898S Other specified comp lication of vascular prosthetic devices, implants and grafts, kiersten Sparrow M.D. 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 04/28/2021 Z48.812 Encounter for surgic al aftercare [...] of vascular prosthetic devices, implants and grafts, sequela Leoncio Sparrow M.D. 04/05/2021 B37.2 Candidiasis of skin [...] of extremities with rest pain, bilateral legs Zuhair Levine M.D. 03/01/2021 I65.23 Occlusion and [...] with rest pain, left leg Robert Dickinson Plan of Treatment 05/12/2021 - Leoncio Sparrow M.D.* Z48.812 Encntr for surgical aftcr following surgery on the circ sys * T82.898S Oth complication of vascular prosth dev/grft, sequela * I70.512 Athscl nonaut bio bypass of extrm w intrmt steven, left leg * Functional Status Description No Information Available Mental Status Description No Information Available Referrals Description No Information Available
--- OUTSIDE RECORDS SUMMARY | 2021-06-22 00:47 | CCD ---
Author Author [facility] Organization [facility] Address Unknown Phone Unavailable Care Team Providers Care Local Delivery Truck Driver Name Role Phone María Elena Moody Unavailable PROBLEMS Type Condition ICD9-CM Code FDY25-ZW Code Onset Dates Condition S tatus W/U Status Risk SNOMED Code Notes Problem Allergic rhinitis, unspecifi ed allergic rhinitis trigger, unspecified rhinitis seasonality J30.9 Active confirmed 10204154 Problem Essential hypertension I10 Active confirmed 94068107 Problem Lumbago with sciatica, unspecified side M54.40 Active confirmed 121953733 Problem Hx of myocardial infarction I25.2 Active confirmed 093154425 Problem Primary osteoarthritis of left knee M17.12 Acti ve confirmed 903641269269407 Problem Other chronic pain G89.29 Active confirmed 8 1466752 Problem Claudication of left lower extremity I73.9 Act lisa confirmed 26284218 Problem Chronic diastolic heart failure I50.32 Active confi rmed 355099715 Problem Iron deficiency anemia, unspecified iron deficiency an emia type D50.9 Active confirmed 53118233 Problem Coronary artery disease invo [place]ving [place] coronary artery of [place] heart without angina pectoris I25.10 Active confirmed 850809 289697759 Problem Chronic obstructive pulmonary disease, unspecified COPD ty pe J44.9 Active confirmed 91384853 Problem COPD exacerbation J44.1 Active confirmed 19 8181448 Problem Pulmonary emphysema, unspecified emphysema type J4 3.9 Active confirmed 22732384 Problem Mixed hyperlipidemia E78.2 Active confirmed 252053272 Problem TIA (transient ischemic attack) G45.9 Active confi rmed 129569468 Problem Degenerative disc disease, lumbar M51.36 Active confirmed 87961768 Problem Tobacco use disorder Z72.0 Active confirmed 50864892 Problem COPD (chronic obstructive pulmonary disease) J44.9 Active confirmed 63404187 Problem Carranza angioma D18.01 Active confirmed 65024 01 Problem 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 Active confirmed 163315423 Problem Peripheral vascular disease I73.9 Active confirmed 001141780 Problem Acute left-sided low back pain with left-sided sciatica M54.42 Active confirmed 818568397 ALLERGIES Allergen (clinical drug ingredient) Drug/Non Drug Allergy do cumented on EMR Reaction Allergy Type Onset Date Status Penicillin (For Allergies Use Only) Anaphylaxis Drug Aller gy Active ENCOUNTERS from 1936 to 2021-04-26 Encounter Location Date Provider Diagnosis [address] [place] [address] Mar, María Elena Moody Vascular graft infec tion, subsequent encounter T82.7XXD and TIA (transient ischemic attack) G45.9 IMMUNIZATIONS Vaccine Route Administration Date Status Influenza Pharmacy Given Unknown Jun 10, 2019 Adminis tered Influenza Pharmacy Given IM Intramuscular Jun 01, 2018 Admini stered Influenza (High Dose 65 & up) IM [...] Education Language: Question Answer Notes Languages spoken: Afghan Worship: Question Answer Notes Worship No yazidism beliefs that would impact health care. Sexual [...] REASON FOR REFERRAL No Information VITAL SIGNS Weight 119 lbs lbs Mar, Weight-kg 53.98 kg Mar, Height 64 in Mar, BMI 20.42 kg/m2 Mar, Heart Rate 82 /min Mar, Respiratory Rate 18 /min Mar, Temperature 98.7 degrees Fahrenheit Mar, Oximetry 93%ra Mar, Blood pressure systolic 123 mm Hg Mar, Blood pressure diastolic 68 mm Hg Mar, MEDICATIONS Medication SIG (Take, Route, Frequency, Duration) Notes Start Da te End Date Status Benzonatate 100 MG 1 capsule as needed Orally Three times a day Aug, Not-Taking Iron 325 (65 Fe) MG Take 1 tablet by mouth twice daily for 30 Active Furosemide 20 MG Take 1 tablet by mouth once daily for 90 Active Ipratropium-Albuterol 0.5-2.5 (3) MG/3ML 3 ml as neede d Inhalation every 6 hrs for 30 Days Feb, Active Aspir-81 81 MG 1 tablet Orally Once a day Not-Taking Atorvastatin Calcium 40 MG 1 tablet Orally Once a day Active PreserVision AREDS - Orally Acti ve Acetaminophen 500 MG 1-2 tablet as needed Orally PRN for pain not to excede 3000 mg 24 hr period strength and frequency change Aug, Ac tive oxyCODONE-Acetaminophen 5-325 MG 1 tablet as needed Orally every 6 hr s Active Gabapentin 100 MG 2 capsule Orally bid not sure on the dose Active Zofran 4 MG 1 tablet as needed Orally daily for 30 day(s) Jun, Active Colace 100 MG 1 capsule as needed Orally Once a day Aug Active Xarelto 10 MG 1 tablet with food Orally Once a day Active Nebulizer/Tubing/Mouthpiece - as directed for 90 day(s) Feb, Active Pantoprazole Sodium 40 MG 1 tablet Orally Once a day for 90 days Active Lisinopril 2.5MG 1 tablet Orally Once a day for 90 Active Potassium Chloride ER 10 MEQ TAKE 1 CAPSULE BY MOUTH T WICE DAILY WITH FOOD for 90 Active Fluticasone-Salmeterol 250-50 MCG/DOSE INHALE 1 DOSE B Y MOUTH TWICE DAILY for 30 Active Nitrostat 0.4 MG 1 tab Sublingual Q5 min X 3 for chest pain for 30 Da ys Active Advair Diskus 250/50 1 puff Inhalation Twice a day Active Plavix 75MG 1 tablet Orally Daily Ac tive Albuterol Sulfate HFA 108 (90 Base) MCG/ACT 2 puffs as needed Inhalation every 6 hrs Active Vitamin D3 43907 UNIT Orally Daily Active Coreg 3.125MG 1 tab oral twice daily for 90 Active PROCEDURES No Information RESULTS No Results REASON FOR VISIT [facility] d/c follow up MEDICAL (GENERAL) HISTORY Type Description Date Medical History hyperlipidemia Medical History macular degeneration Medical History PR 09/19 Medical History stroke Medical History acute PR x2 Medical History COPD Medical History hypertension [...] No Information FUNCTIONAL STATUS No Information ASSESSMENTS Encounter Date Diagnosis Assessment Notes Treatment Notes Treatm ent Clinical Notes Mar, Vascular graft infection, subsequent enc ounter (ICD-10 - T82.7XXD) Patient has follow-up appointment scheduled with vascular surgery. She continues to follow with home health/wound care. Mar, TIA (transient ischemic attack) (ICD-10 - G45.9) PLAN OF TREATMENT Medication Medication Name Sig Start Date Stop Date Atorvastatin Calcium 40 MG 1 tablet Orally Once a day Fluticasone-Salmeterol 250-50 MCG/DOSE INHALE 1 DOSE B Y MOUTH TWICE DAILY for 30 Furosemide 20 MG Take 1 tablet by mouth once daily for 90 Xarelto 10 MG 1 tablet with food Orally Once a day Plavix 75MG 1 tablet Orally Daily Treatment Notes Assessment Notes Clinical Notes Vascular graft infection, subsequent encounter Patient has follow-up appointment scheduled with vascular surgery. She continues to follow with home health/wound care. Next Appt Details 3 Months Reason: Insurance Providers Payer Name Payer Address Payer Phone Insured Name Patient Relati onship to Insured Coverage Start Date Coverage End Date MEDICARE COMPLETE [employer] [address] [address] [facility] [id number] BRISEIDA IBARRA self
--- OUTSIDE RECORDS SUMMARY | 2021-06-22 00:47 | CCD | Continuity of Care Document ---
Author Author Nguyen SPARROW MD Organization Unknown Address [address] [place] [address] Phone [phone] Care Team Providers Care Superintendent Landfill Operations Name Role Phone María Elena Moody AUTM [phone] Kp Metzger M.D. AUTM [phone] [facility] Care Everywhere AUTM Problems Active Problems Provider Date Allergic rhinitis Onset: 09/20/2016 Chronic diastolic heart failure Onset: 0 10/05/2017 Chronic low back pain Onset: 10/05/2017 Chronic obstructive lung disease Onset: 05/19/2015 Chronic pain Onset: 10/05/2017 Chronic obstructive lung disease Onset: 11/26/2018 Coronary arteriosclerosis in [place] artery Onset: 11/26/2018 Degeneration of lumbar intervertebral [...] 81 mg by mouth daily Unknown Ipratropium [place]/Albuterol Sulfate 0.5-2.5(3)mg/3ML Solution Inhale 3 mL every [...] hours as needed for pain Reference #: [id number] 30tabs Britton Richards M.D. 01/22/2021 - 02/18/2021 [...] CPT Code Status Date Vaccine Lot # [id number] Given 04/29/2020 Influenza Virus Vaccine, Quadrivalent, Split, Preservative Free 87224 Given 06/10/2019 Influenza Virus Split 3 Yrs And Above For Intramuscular Use 81726 Given 06/01/2018 Pneumococcal Con jugate Vaccine 13 Valent For Intramuscular Use 85986 Given 06/01/2018 Influenza Virus Split 3 Yrs And Above For Intramuscular Use 18014 Given 07/03/2017 Influenza Vaccine Split Viru [place] Use 29137 Given 09/20/2016 Influenza Vaccine Split Viru s Preservative Free Im Use 76447 Given 05/30/2016 Influenza Virus Vaccine, Quadrivalent, Split, Preservative Free 63353 Given 08/07/2014 Pneumococcal Vaccine 2Yrs Or Older 73150 Given 06/17/2014 Zoster Shingles Vaccine For Subcutaneous Injection 41279 Given 06/14/2012 Influenza Virus Vaccine, Quadrivalent, Split, Preservative Free 16695 Refused 04/30/2020 Influenza Virus Vaccine, Quadrivalent, Split, [...] - 34.3 Laboratory test finding 03/10/2021 [facility] (315)- - Wound Culture SPECIMEN DESCRIP <SEE [...] See Notes 10 Xray 03/01/2021 Main Office [phone] Carotid Ultrasound Bilateral <pending> Basic metabolic panel [...] Antibody Screen Negative Testing site Performed AT [address] [place] [address] Blood bank comment See Notes 12 Aptt [...] Set No No Xray 01/20/2021 Main Office [phone] Bypass Graft Ultrasound Lower Extremity Left <pending> [...] Blood Cellsrare (<1/LPF) Epithelial Cellsno Bacteria 3 [facility] HC[address] [place], [place] [address]Qfq# Surgical Pathology ReportPatient Name: Nguyen Jimenez: 1936ccession [...] 03/12/2021Electronically Signed Out By Ashish Camacho M.D. [facility] [place], [place] [address]bzwFqxmunkhc component performed at [facility], Histopathology, [address] [place] [address], [address].Reported at [facility], [address] [place] [address], [address]. This report may includeimmunohistochemical or in-situ hybridization results. Testing wasdeveloped and the performance characteristics determined by [facility], [facility] as required by Clia '88. The Fda hasdetermined that approval for specific use is not necessary for clinicaluse. The quality of Hematoxylin and Eosin stains and as applicable, forall immunohistochemical and/or special stains, including positive andnegative controls, were reviewed and considered appropriate.Icd codes T82.898Acpt codesA: 97891H 4 Test(S) Processed Under New Entry Please See [facility] [id number]. [id number] 46709. 5 SPECIMEN DESCRIPTION GROIN LEFT SPECIAL REQUESTS [...] VIRUS THAT CAUSES COVID-19. PERFORMED AT [address] [place] [address] 7 THIS ASSAY AMPLIFIES AND DET ECTS THE TARGET RNA USING REAL-TIME PCR. TESTING PERFORMED ON [employer] NEGATIVE 2019_NCOV RT-PCR RESULTS DO NOT [...] THE VIRUS THAT CAUSES COVID-19. PERFORMED AT [address] [place] [address] 15 THIS ASSAY AMPLIFIES AND DET ECTS THE TARGET RNA USING REAL-TIME PCR. TESTING PERFORMED ON [employer] G[employer] NEGATIVE 2019_NCOV RT-PCR RESULTS DO NOT PRECLUDE 2019_NCOV INFECTION AND SHOULD NOT BE USED THE SOLE BASIS FOR PATIENT MANAGEMENT DECISIONS. Procedures Date Code Description Status 03/11/2021 12534 Adj Tissue Tranfser Any Area; De fect 30.1 SQ CM To 60.0 SQ CM Completed 03/11/2021 80584 Excision Infected Graft Extremit y Completed 03/10/2021 17974 Office/Outpatient Established Hi gh MDM 40-54 Min Completed 03/01/2021 72508 Office/Outpatient Established Mo d MDM 30-39 Min Completed 03/01/2021 20236 Duplex Scan Extracranial Arterie s, Complete Bilateral Study Completed 02/19/2021 31767 Office/Outpatient Established Lo w MDM 20-29 Min Completed 01/28/2021 88970 Moderate Sedation Se rvices; Same Phys Intl 15 Mins; PT >= 5 Years Completed 01/28/2021 71235 Fem-Pop Angioplasty/Stent Comple foreign 01/26/2021 43175 Femoral-Popliteal Angioplasty Co mpleted 01/26/2021 68561 Femoral-Popliteal Angioplasty Co mpleted 01/26/2021 76320 Moderate Sedation Se rvices; Same Phys Intl 15 Mins; PT >= 5 Years Completed 01/25/2021 95480 Electrocardiogram Tracing Only C ompleted 01/20/2021 00178 Duplex Scan Lower Extremity, Com plete Bilateral Completed 12/25/2020 56841 Moderate Sedation Se rvices; Same Phys Intl 15 Mins; PT >= 5 Years Completed 12/25/2020 42148 Angiography-Extremity Unilateral Completed 12/25/2020 66380 Fem-Pop Angioplasty/Stent Comple foreign 12/17/2020 91532 Duplex Scan Lower Extremity, Fol low-Up Or Limited Completed 12/17/2020 28567 Duplex Scan Lower Extremity, Fol low-Up Or Limited Completed Medical Devices Active Inactive Description Device Identifier Assigning Authority 04/28/2020 Synthetic vascular graft [id number] [facility] 12/26/2019 Synthetic vascular graft [id number] [facility] 12/26/2019 Drug-eluting femoral artery sten t ([id number] FDA 12/26/2019 Drug-eluting femoral artery sten t ([id number] [facility] Encounters Type Date Location Provider Dx Diagnosis [...] Office Zuhair Levine M.D. I70.22 3 [facility] [place] arteries of extrm w rest pain, bilateral [...] 1:00p Main Office Robert Dickinson I70.222 [facility] [place] arteries of extremities w rest pain, left leg Office Visit 11/16/2020 11:15a Main Office Zuhair Levine M.D. Z48.81 2 [...]
--- OUTSIDE RECORDS SUMMARY | 2021-06-22 00:47 | CCD | Continuity of Care Document ---
Author Author Nguyen SALDANA Organization Unknown Address [address] [place] [address] Phone [phone] Care Team Providers Care Latex Caster Name Role Phone María Elena Moody AUTM [phone] Kp Metzger M.D. AUTM [phone] [facility] Care Everywhere AUTM Problems Active Problems Provider Date Allergic rhinitis Onset: 09/20/2016 Chronic diastolic heart failure Onset: 0 10/05/2017 Chronic low back pain Onset: 10/05/2017 Chronic obstructive lung disease Onset: 05/19/2015 Chronic pain Onset: 10/05/2017 Chronic obstructive lung disease Onset: 11/26/2018 Coronary arteriosclerosis in [place] artery Onset: 11/26/2018 Degeneration of lumbar intervertebral [...] Atherosclerosis of arteries of the extremities Zuhair Levnie M.D. Onset: 07/19/2019 Congestive heart failure Zuhair Levine M.D. Onset: 07/19/20 19 Coronary arteriosclerosis uZhair Levine M.D. Onset: 019 Pure hypercholesterolemia Zuhair [...] (take Instead of the 50mg dose) 30caps Leoncoi Sparrow M.D. 06/03/2021 [facility] Wound/Burn Dressing Gel apply to left leg daily 1Tube Zuhair Levine M.D. 05/08 Pregabalin 50mg Capsules take 1 capsule by mouth tid reference #: Reference #: [id number] 90caps Leoncio Sparrow M.D. 05/28/2021 Tramadol HCL [...] 81 mg by mouth daily Unknown Ipratropium [place]/Albuterol Sulfate 0.5-2.5(3)mg/3ML Solution Inhale 3 mL every [...] hours as needed for pain Reference #: [id number] 15tabs Zuhair Levine M.D. 03/17/2021 - 05/12/2021 [...] hours as needed for pain Reference #: [id number] 30tabs Britton Richards M.D. 01/22/2021 - 02/18/2021 Hydrocodone-Acetaminophen 5-325mg Tablets 1 tablet by mouth every 4 hours as needed for pain 42tabs Neil Toro MD 12/17/2020 - 01/21/2021 Gabapentin 100mg Capsules 2 caps by mouth twice a day 180caps Zuhair Levine M.D. 12/04/2020 - 04/28/2021 Immunizations CPT Code Status Date Vaccine Lot # 58084 Given 04/29/2020 Influenza Virus Vaccine, Quadrivalent, Split, Preservative Free 33603 Given 06/10/2019 Influenza Virus Split 3 Yrs And Above For Intramuscular Use 79134 Given 06/01/2018 Pneumococcal Con jugate Vaccine 13 Valent For Intramuscular Use 60420 Given 06/01/2018 Influenza Virus Split 3 Yrs And Above For Intramuscular Use 01368 Given 07/03/2017 Influenza Vaccine Split Viru s Preservative Free Im Use 77621 Given 09/20/2016 Influenza Vaccine Split Viru s Preservative Free Im Use 60982 Given 05/30/2016 Influenza Virus Vaccine, Quadrivalent, Split, Preservative Free 93188 Given 08/07/2014 Pneumococcal Vaccine 2Yrs Or Older 18204 Given 06/17/2014 Zoster Shingles Vaccine For Subcutaneous Injection 00989 Given 06/14/2012 Influenza Virus Vaccine, Quadrivalent, Split, Preservative Free 02798 Refused 04/30/2020 Influenza Virus Vaccine, Quadrivalent, Split, [...] - 34.3 Laboratory test finding 03/10/2021 [facility] (315)- - Wound Culture SPECIMEN DESCRIP <SEE [...] See Notes 10 Xray 03/01/2021 Main Office [phone] Carotid Ultrasound Bilateral <pending> Basic metabolic panel [...] Antibody Screen Negative Testing site Performed AT [address] [place] [address] Blood bank comment See Notes 12 Aptt [...] Set No No Xray 01/20/2021 Main Office [phone] Bypass Graft Ultrasound Lower Extremity Left <pending> [...] Cellsrare (<1/LPF) Epithelial Cellsno Bacteria 3 [facility] [place], [place] [address]Tel# Surgical Pathology ReportPatient Name: Nguyen Jimenez: 6Accession [...] 03/12/2021Electronically Signed Out By Ashish Camacho M.D. [facility] [place] [address]zgcNxaskwzfi component performed at [facility], [facility], [address] [place] [address], [address].Reported at [facility], [address] [place] [address], [address]. This report may includeimmunohistochemical or in-situ hybridization results. Testing wasdeveloped and the performance characteristics determined by [employer] as required by Clia '88. The [facility] hasdetermined that approval for specific use is not necessary for clinicaluse. The quality of Hematoxylin and Eosin stains and as applicable, forall immunohistochemical and/or special stains, including positive andnegative controls, were reviewed and considered appropriate.Icd codes T82.898Acpt codesA: 41985K 4 Test(S) Processed Under New Entry Please See [facility] [id number]. 807278 38927. 5 SPECIMEN DESCRIPTION GROIN LEFT SPECIAL REQUESTS [...] THE VIRUS THAT CAUSES COVID-19. PERFORMED AT [address] [place] [address] 7 THIS ASSAY AMPLIFIES AND DET ECTS THE TARGET RNA USING REAL-TIME PCR. TESTING PERFORMED ON [employer] NEGATIVE 2019_NCOV RT-PCR RESULTS DO NOT PRECLUDE [...] THE VIRUS THAT CAUSES COVID-19. PERFORMED AT [address] [place] [address] 15 THIS ASSAY AMPLIFIES AND DET ECTS THE TARGET RNA USING REAL-TIME PCR. TESTING PERFORMED ON [employer] NEGATIVE 2019_NCOV RT-PCR RESULTS DO NOT PRECLUDE 2019_NCOV INFECTION AND SHOULD NOT BE USED THE SOLE BASIS FOR PATIENT MANAGEMENT DECISIONS. Procedures Date Code Description Status 03/11/2021 36875 Adj Tissue Tranfser Any Area; De fect 30.1 SQ CM To 60.0 SQ CM Completed 03/11/2021 51874 Excision Infected Graft Extremit y Completed 03/10/2021 52044 Office/Outpatient Established Hi gh MDM 40-54 Min Completed 03/01/2021 63904 Office/Outpatient Established Mo d MDM 30-39 Min Completed 03/01/2021 63257 Duplex Scan Extracranial Arterie s, Complete Bilateral Study Completed 02/19/2021 07804 Office/Outpatient Established Lo w MDM 20-29 Min Completed 01/28/2021 56884 Moderate Sedation Se rvices; Same Phys Intl 15 Mins; PT >= 5 Years Completed 01/28/2021 01638 Fem-Pop Angioplasty/Stent Comple foreign 01/26/2021 04136 Femoral-Popliteal Angioplasty Co mpleted 01/26/2021 84762 Femoral-Popliteal Angioplasty Co mpleted 01/26/2021 79345 Moderate Sedation Se rvices; Same Phys Intl 15 Mins; PT >= 5 Years Completed 01/25/2021 63852 Electrocardiogram Tracing Only C ompleted 01/20/2021 52886 Duplex Scan Lower Extremity, Com plete Bilateral Completed 12/25/2020 96294 Moderate Sedation Se rvices; Same Phys Intl 15 Mins; PT >= 5 Years Completed 12/25/2020 53834 Angiography-Extremity Unilateral Completed 12/25/2020 25164 Fem-Pop Angioplasty/Stent Comple foreign 12/17/2020 11406 Duplex Scan Lower Extremity, Fol low-Up Or Limited Completed 12/17/2020 08415 Duplex Scan Lower Extremity, Fol low-Up Or Limited Completed Medical Devices Active Inactive Description Device Identifier Assigning Authority 04/28/2020 Synthetic vascular graft [id number] [facility] 12/26/2019 Synthetic vascular graft [id number] [facility] 12/26/2019 Drug-eluting femoral artery sten t (01)[id number] [facility] 12/26/2019 Drug-eluting femoral artery sten t (01)[id number] [facility] Encounters Type Date Location Provider Dx Diagnosis [...] Office Zuhair Levine M.D. I70.22 3 Athscl [place] arteries of extrm w rest pain, bilateral [...] 1:00p Main Office Robert Dickinson I70.222 Athscl [place] arteries of extremities w rest pain, left leg Assessments Date Code Description Provider 05/12/2021 Z48.812 Encounter for surgic al aftercare following surgery on the circulatory system Leoncio Sparrow M.D. 05/12/2021 T82.898S Other specified comp lication [...] the extremities with intermittent claudication, right leg Loencio Sparrow M.D. 01/28/2021 I70.223 Atherosclerosis of n [...]
--- OUTSIDE RECORDS SUMMARY | 2021-06-22 00:48 | CCD ---
Author Author [facility] Organization [facility] Address Unknown Phone Unavailable Care Team Providers Care Leather Grader Name Role Phone María Elena Moody Unavailable PROBLEMS Type Condition ICD9-CM Code ZJA28-DU Code Onset Dates Condition S tatus W/U Status Risk SNOMED Code Notes Problem Essential hypertension I10 Active confirmed 37256064 Problem COPD (chronic obstructive pulmonary disease) J44.9 Active confirmed 37114398 Problem Hx of myocardial infarction I25.2 Active confirmed 604669311 Problem Allergic rhinitis, unspecifi ed allergic rhinitis trigger, unspecified rhinitis seasonality J30.9 Active confirmed 58403303 Problem Other chronic pain G89.29 Active confirmed 8 4172781 Problem Lumbago with sciatica, unspecified side M54.40 Active confirmed 338188657 Problem Chronic diastolic heart failure I50.32 Active confi rmed 122340973 Problem Primary osteoarthritis of left knee M17.12 Acti ve confirmed 103780527684021 Problem Pulmonary emphysema, unspecified emphysema type J4 3.9 Active confirmed 98660446 Problem Iron deficiency anemia, unspecified iron deficiency an emia type D50.9 Active confirmed 05738529 Problem Coronary artery disease invo lving [place] coronary artery of [place] heart without angina pectoris I25.10 Active confirmed 739072 060058152 Problem Acute left-sided low back pain with left-sided sciatica M54.42 Active confirmed 081384852 Problem Degenerative disc disease, lumbar M51.36 Active confirmed 55097884 Problem Tobacco use disorder Z72.0 Active confirmed 40091219 Problem COPD exacerbation J44.1 Active confirmed 19 5111154 Problem Claudication of left lower extremity I73.9 Act lisa confirmed 39713796 Problem Mixed hyperlipidemia E78.2 Active confirmed 006741334 Problem Chronic obstructive pulmonary disease, unspecified COPD ty pe J44.9 Active confirmed 71888590 Problem Carranza angioma D18.01 Active confirmed 83193 01 Problem 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 Active confirmed 337983468 Problem Peripheral vascular disease I73.9 Active confirmed 119862056 ALLERGIES Allergen (clinical drug ingredient) Drug/Non Drug Allergy do cumented on EMR Reaction Allergy Type Onset Date Status Penicillin (For Allergies Use Only) Anaphylaxis Drug Aller gy Active ENCOUNTERS from 1935 to 2021-03-24 Encounter Location Date Provider Diagnosis [address] [phone] [place] [address] Mar, María Elena Moody IMMUNIZATIONS Vaccine Route Administration Date Status Influenza [...] Education Language: Question Answer Notes Languages spoken: Kazakh Yarsani: Question Answer Notes Yarsani No anabaptism beliefs that would impact health care. Sexual [...] Notes Start Da te End Date Status Coreg 3.125MG 1 tab oral twice daily for 90 Active Zofran 4 MG 1 tablet as needed Orally daily for 30 day(s) Jun, Active Albuterol Sulfate HFA 108 (90 Base) MCG/ACT 2 puffs as needed Inhalation every 6 hrs Active Plavix 75MG 1 tablet Orally Daily for 90 Active Fluticasone-Salmeterol 250-50 MCG/DOSE INHALE 1 DOSE B Y MOUTH TWICE DAILY for 30 Active Vitamin D3 59103 UNIT Orally Daily Active Pantoprazole Sodium 40 MG 1 tablet Orally Once a day for 90 days Active Gabapentin 100 MG 1 capsule Orally Once a day for 30 day(s ) not sure on the dose Active Colace 100 MG 1 capsule as needed Orally Once a day Aug Active Xarelto 10 MG 1 tablet with food Orally Once a day for 30 day(s) Active Lisinopril 2.5MG 1 tablet Orally Once a day for 90 Active Nebulizer/Tubing/Mouthpiece - as directed for 90 day(s) Feb, Active PreserVision AREDS - Orally Acti ve Advair Diskus 250/50 1 puff Inhalation Twice a day Active Potassium Chloride ER 10MEQ ER 1 capsule with food Orally Twice a day for 90 Active HYDROcodone-Acetaminophen 5-325 MG 1/2-1 tablet as nee ded Orally bid (MDD2 tabs) for 7 day(s) Reference #: [id number] December, Active Nitrostat 0.4 MG 1 tab Sublingual Q5 min X 3 for chest pain for 30 Da ys Active Aspir-81 81 MG 1 tablet Orally Once a day Not-Taking Ipratropium-Albuterol 0.5-2.5 (3) MG/3ML 3 ml as neede d Inhalation every 6 hrs for 30 Days Feb, Active Lasix 20MG 1 tablet Orally Once a day for 90 days Active Atorvastatin Calcium 40 MG 1 tablet Orally Once a day for 90 Active Ferrous Sulfate 325 (65 Fe) MG 1 tablet Orally bid for 30 Active Benzonatate 100 MG 1 capsule as needed Orally Three times a day Aug, Not-Taking Acetaminophen 500 MG 1-2 tablet as needed Orally PRN for pain not to excede 3000 mg 24 hr period strength and frequency change Aug, Ac tive PROCEDURES No Information RESULTS No Results REASON FOR VISIT Crackles in Lungs/Pitting Edema Bilateral Feet MEDICAL (GENERAL) HISTORY Type Description Date Medical History hyperlipidemia Medical History macular degeneration Medical History IN 09/19 Medical History stroke Medical History acute [place] x2 Medical History COPD Medical History hypertension [...] History COPD 05/07/15 Hospitalization History 2 heart attacks/ stroke 09/2016 Hospitalization History [facility] for 1 week 03/2019 Goals Section No Information Health Concerns No Information MEDICAL EQUIPMENT No Information MENTAL STATUS No Information FUNCTIONAL STATUS No Information ASSESSMENTS No Information PLAN OF TREATMENT Medication Medication Name Sig Start Date Stop Date Lisinopril 2.5MG 1 tablet Orally Once a day for 90 Ferrous Sulfate 325 (65 Fe) MG 1 tablet Orally bid for 30 Atorvastatin Calcium 40 MG 1 tablet Orally Once a day for 90 Fluticasone-Salmeterol 250-50 MCG/DOSE INHALE 1 DOSE B Y MOUTH TWICE DAILY for 30 Plavix 75MG 1 tablet Orally Daily for 90 Next Appt Details Provider Name:María Elena Moody, 2021-03 11:00:00 AM, [address] [place] [address], , [place], [address], Insurance Providers Payer Name Payer Address Payer Phone Insured Name Patient Relati onship to Insured Coverage Start Date Coverage End Date MEDICARE COMPLETE [facility] [address] [address] [facility] [phone] BRISEIDA IBARRA self
--- OUTSIDE RECORDS SUMMARY | 2021-06-22 00:50 | CCD ---
Author Author [facility] Organization [facility] Address Unknown Phone Unavailable Care Team Providers Care Production Recovery Operator Name Role Phone Manjit Levine MD Unavailable Unavailable Manjit Levine MD Unavailable Unavailable Manjit Levine MD Unavailable Unavailable Manjit Levine MD Unavailable Unavailable Manjit Levine MD Unavailable Unavailable Manjit Levine MD Unavailable Unavailable Manjit Levine MD Unavailable Unavailable Manjit Levine MD Unavailable Unavailable Manjit Levine MD Unavailable Unavailable Manjit Levine MD Unavailable Unavailable Manjit Levine MD Unavailable Unavailable Manjit Levine MD Unavailable Unavailable Manjit Levine MD Unavailable Unavailable Manjit Levine MD Unavailable Unavailable Manjit Levine MD Unavailable Unavailable Manjit Levine MD Unavailable Unavailable Manjit Levine MD Unavailable Unavailable Manjit Levine MD Unavailable Unavailable Manjit Levine MD Unavailable Unavailable Manjit Levine MD Unavailable Unavailable Abner, N Zuhair MD Unavailable Unavailable Abner, N Zuhair MD Unavailable Unavailable Abner, N Zuhair MD Unavailable Unavailable Abner, N Zuhair MD Unavailable Unavailable Abner, N Zuhair MD Unavailable Unavailable Abner, N Zuhair MD Unavailable Unavailable Abner, N Zuhair MD Unavailable Unavailable Abner, N Zuhair MD Unavailable Unavailable Abner, N Zuhair MD Unavailable Unavailable Abner, N Zuhair MD Unavailable Unavailable Abner, N Zuhair MD Unavailable Unavailable Abner, N Zuhair MD Unavailable Unavailable Abner, N Zuhair MD Unavailable Unavailable Abner, N Zuhair MD Unavailable Unavailable Abner, N Zuhair MD Unavailable Unavailable Abner, N Zuhair MD Unavailable Unavailable Abner, N Zuhair MD Unavailable Unavailable Abner, N Zuhair MD Unavailable Unavailable Abner, N Zuhair MD Unavailable Unavailable Abner, N Zuhair MD Unavailable Unavailable Abner, N Zuhair MD Unavailable Unavailable Abner, N Zuhair MD Unavailable Unavailable Abner, N Zuhair MD Unavailable Unavailable Abner, N Zuhair MD Unavailable Unavailable Abner, N Zuhair MD Unavailable Unavailable Abner, N Zuhair MD Unavailable Unavailable Abner, N Zuhair MD Unavailable Unavailable Abner, N Zuhair MD Unavailable Unavailable Abner, N Zuhair MD Unavailable Unavailable Abner, N Zuhair MD Unavailable Unavailable Abner, N Zuhair MD Unavailable Unavailable Abner, N Zuhair MD Unavailable Unavailable Abner, N Zuhair MD Unavailable Unavailable Abner, N Zuhair MD Unavailable Unavailable Abner, N Zuhair MD Unavailable Unavailable Abner, N Zuhair MD Unavailable Unavailable Abner, N Zuhiar MD Unavailable Unavailable Abner, N Zuhair MD Unavailable Unavailable Abner, N Zuhair MD Unavailable Unavailable Abner, N Zuhair MD Unavailable Unavailable Abner, N Zuhair MD Unavailable Unavailable Abner, N Zuhair MD Unavailable Unavailable Abner, N Zuhair MD Unavailable Unavailable Abner, N Zuhair MD Unavailable Unavailable Abner, N Zuhair MD Unavailable Unavailable Abner, N Zuhair MD Unavailable Unavailable Abner, N Zuhair MD Unavailable Unavailable Abner, N Zuhair MD Unavailable Unavailable Abner, N Zuhair MD Unavailable Unavailable Abner, N Zuhair MD Unavailable Unavailable Abner, N Zuhair MD Unavailable Unavailable Abner, N Zuhair MD Unavailable Unavailable Abner, N Zuhair MD Unavailable Unavailable Abner, N Zuhair MD Unavailable Unavailable Abner, N Zuhair MD Unavailable Unavailable Abner, N Zuhair MD Unavailable Unavailable Abner, N Zuhair MD Unavailable Unavailable Manjit Levine MD Unavailable Unavailable Manjit Levine MD Unavailable Unavailable Manjit Levine MD Unavailable Unavailable Manjit Levine MD Unavailable Unavailable Manjit Levine MD Unavailable Unavailable Manjit Levine MD Unavailable Unavailable Manjit Levine MD Unavailable Unavailable DERIK COREAS MD Unavailable Unavailable DERIK COREAS MD Unavailable Unavailable DERIK COREAS MD Unavailable Unavailable DERIK COREAS MD Unavailable Unavailable DERIK COREAS MD Unavailable Unavailable DERIK COREAS MD Unavailable Unavailable DERIK COREAS MD Unavailable Unavailable DERIK COREAS MD Unavailable Unavailable DERIK COREAS MD Unavailable Unavailable DERIK COREAS MD Unavailable Unavailable DERIK COREAS MD Unavailable Unavailable DERIK COREAS MD Unavailable Unavailable DERIK COREAS MD Unavailable Unavailable DERIK COREAS MD Unavailable Unavailable DERIK COREAS MD Unavailable Unavailable DERIK COREAS MD Unavailable Unavailable DERIK COREAS MD Unavailable Unavailable DERIK COREAS MD Unavailable Unavailable DERIK COREAS MD Unavailable Unavailable DERIK COREAS MD Unavailable Unavailable DERIK COREAS MD Unavailable Unavailable DERIK COREAS MD Unavailable Unavailable DERIK COREAS MD Unavailable Unavailable DERIK COREAS MD Unavailable Unavailable DERIK COREAS MD Unavailable Unavailable DERIK COREAS MD Unavailable Unavailable Frida Haines MD Unavailable Unavailable Frida Haines MD Unavailable Unavailable Frida Haines MD Unavailable Unavailable Frida Haines MD Unavailable Unavailable Frida Haines MD Unavailable Unavailable Frida Haines MD Unavailable Unavailable Frida Haines MD Unavailable Unavailable Frida Haines MD Unavailable Unavailable Frida Haines MD Unavailable Unavailable Frida Haines MD Unavailable Unavailable Frida Haines MD Unavailable Unavailable Frida Haines MD Unavailable Unavailable Frida Haines MD Unavailable Unavailable Frida Haines MD Unavailable Unavailable Frida Haines MD Unavailable Unavailable Frida Haines MD Unavailable Unavailable Frida Haines MD Unavailable Unavailable Frida Haines MD Unavailable Unavailable Frida Haines MD Unavailable Unavailable Frida Haines MD Unavailable Unavailable Frida Haines MD Unavailable Unavailable Frida Haines MD Unavailable Unavailable Frida Haines MD Unavailable Unavailable Frida Haines MD Unavailable Unavailable Frida Haines MD Unavailable Unavailable Frida Haines MD Unavailable Unavailable Frida Haines MD Unavailable Unavailable Frida Haines MD Unavailable Unavailable Frida Haines MD Unavailable Unavailable Frida Haines MD Unavailable Unavailable Frida Haines MD Unavailable Unavailable Frida Haines MD Unavailable Unavailable Frida Haines MD Unavailable Unavailable Frida Haines MD Unavailable Unavailable Frida Haines MD Unavailable Unavailable Lisy MOMIN Unavailable Unavailable LYDIA, O SHE ROONEY Unavailable Unavailable LYDIA, O SHE ROONEY Unavailable Unavailable LYDIA, O SHE ROONEY Unavailable Unavailable LYDIA, O SHE ROONEY Unavailable Unavailable LYDIA, O SHE ROONEY Unavailable Unavailable LYDIA, O SHE ROONEY Unavailable Unavailable LYDIA, O SHE ROONEY Unavailable Unavailable LYDIA, O SHE ROONEY Unavailable Unavailable LYDIA, O SHE ROONEY Unavailable Unavailable LYDIA, O SHE ROONEY Unavailable Unavailable LYDIA, O SHE ROONEY Unavailable Unavailable LYDIA, O SHE ROONEY Unavailable Unavailable LYDIA, O SHE ROONEY Unavailable Unavailable LYDIA, O SHE ROONEY Unavailable Unavailable LYDIA, O SHE ROONEY Unavailable Unavailable LYDIA, O SHE ROONEY Unavailable Unavailable LYDIA, O SHE ROONEY Unavailable Unavailable LYDIA, O SHE ROONEY Unavailable Unavailable LYDIA, O SHE ROONEY Unavailable Unavailable LYDIA, O SHE ROONEY Unavailable Unavailable LYDIA, O SHE ROONEY Unavailable Unavailable LYDIA, O SHE ROONEY Unavailable Unavailable LYDIA, O SHE ROONEY Unavailable Unavailable LYDIA, O SHE MD Unavailable Unavailable LYDIA, O SHE ROONEY Unavailable Unavailable LYDIA, O SHE ROONEY Unavailable Unavailable LYDIA, O SHE ROONEY Unavailable Unavailable LYDIA, O SHE ROONEY Unavailable Unavailable LYDIA, O SHE ROONEY Unavailable Unavailable LYDIA, O SHE ROONEY Unavailable Unavailable LYDIA, O SHE ROONEY Unavailable Unavailable LYDIA, O SHE ROONEY Unavailable Unavailable LYDIA, O SHE ROONEY Unavailable Unavailable LYDIA, O SHE ROONEY Unavailable Unavailable LYDIA, O SHE ROONEY Unavailable Unavailable LYDIA, O SEH ROONEY Unavailable Unavailable LYDIA, O SHE ROONEY Unavailable Unavailable LYDIA, O SHE ROONEY Unavailable Unavailable LYDIA, O SHE ROONEY Unavailable Unavailable LYDIA, O SHE ROONEY Unavailable Unavailable LYDIA, O SHE ROONEY Unavailable Unavailable LYDIA, O SHE ROONEY Unavailable Unavailable LYDIA, O SHE ROONEY Unavailable Unavailable LYDIA, O SHE ROONEY Unavailable Unavailable LYDIA, O SHE ROONEY Unavailable Unavailable Manjit Levine MD Unavailable Unavailable Manjit Levine MD Unavailable Unavailable Manjit Levine MD Unavailable Unavailable Abner, N Zuhair MD Unavailable Unavailable Abner, N Zuhair MD Unavailable Unavailable Abner, N Zuhair MD Unavailable Unavailable Abner, N Zuhair MD Unavailable Unavailable Abner, N Zuhair MD Unavailable Unavailable Baner, N Zuhair MD Unavailable Unavailable Abner, N Zuhair MD Unavailable Unavailable Abner, N Zuhair MD Unavailable Unavailable Abner, N Zuhair MD Unavailable Unavailable Abner, N Zuhair MD Unavailable Unavailable Abner, N Zuhair MD Unavailable Unavailable Abner, N Zuhair MD Unavailable Unavailable Abner, N Zuhair MD Unavailable Unavailable Abner, N Zuhair MD Unavailable Unavailable Abner, N Zuhair MD Unavailable Unavailable Abner, N Zuhair MD Unavailable Unavailable Abner, N Zuhair MD Unavailable Unavailable Abner, N Zuhair MD Unavailable Unavailable Abner, N Zuhair MD Unavailable Unavailable Abner, N Zuhair MD Unavailable Unavailable Abner, N Zuhair MD Unavailable Unavailable Abner, N Zuhair MD Unavailable Unavailable Abner, N Zuhair MD Unavailable Unavailable Abner, N Zuhair MD Unavailable Unavailable Abner, N Zuhair MD Unavailable Unavailable Abner, N Zuhair MD Unavailable Unavailable Abner, N Zuhair MD Unavailable Unavailable Abner, N Zuhair MD Unavailable Unavailable Abner, N Zuhair MD Unavailable Unavailable Abner, N Zuhair MD Unavailable Unavailable Abner, N Zuhair MD Unavailable Unavailable Abner, N Zuhair MD Unavailable Unavailable Abner, N Zuhair MD Unavailable Unavailable Abner, N Zuhair MD Unavailable Unavailable Abner, N Zuhair MD Unavailable Unavailable Abner, N Zuhair MD Unavailable Unavailable Abner, N Zuhair MD Unavailable Unavailable Abner, N Zuhair MD Unavailable Unavailable Abner, N Zuhair MD Unavailable Unavailable Abner, N Zuhair MD Unavailable Unavailable Abner, N Zuhair MD Unavailable Unavailable Abner, N Zuhair MD Unavailable Unavailable Abner, N Zuhair MD Unavailable Unavailable Abner, N Zuhair MD Unavailable Unavailable Abner, N Zuhair MD Unavailable Unavailable Abner, N Zuhair MD Unavailable Unavailable Abner, N Zuhair MD Unavailable Unavailable Abner, N Zuhair MD Unavailable Unavailable Abner, N Zuhair MD Unavailable Unavailable Abner, N Zuhair MD Unavailable Unavailable Abner, N Zuhair MD Unavailable Unavailable Abner, N Zuhair MD Unavailable Unavailable Abner, N Zuhair MD Unavailable Unavailable Abner, N Zuhair MD Unavailable Unavailable Abner, N Zuhair MD Unavailable Unavailable Abner, N Zuhair MD Unavailable Unavailable Abner, N Zuhair MD Unavailable Unavailable Abner, N Zuhair Unavailable Unavailable Manjit Levine Zuhair MD Unavailable Unavailable Manjit Levine Zuhair MD Unavailable Unavailable Manjit Levine Zuhair MD Unavailable Unavailable Abner N Zuhair MD Unavailable Unavailable Abner, N Zuhair MD Unavailable Unavailable Abner N Zuhair MD Unavailable Unavailable Abner N Zuhair MD Unavailable Unavailable Abner N Zuhair MD Unavailable Unavailable Abner N Zuhair MD Unavailable Unavailable Abner N Zuhair MD Unavailable Unavailable Abner N Zuhair MD Unavailable Unavailable Abner N Zuhair MD Unavailable Unavailable Abner N Zuhair MD Unavailable Unavailable Abner N Zuhair MD Unavailable Unavailable Abner N Zuhair MD Unavailable Unavailable Abner N Zuhair MD Unavailable Unavailable Abner N Zuhair MD Unavailable Unavailable Abner N Zuhair MD Unavailable Unavailable Manjit Levine Zuhair MD Unavailable Unavailable Abner N Zuhair MD Unavailable Unavailable Abner N Zuhair MD Unavailable Unavailable Abner N Zuhair MD Unavailable Unavailable Manjit Levine Zuhair MD Unavailable Unavailable Adis Sparrow MD Unavailable Unavailable Adis Sparrow MD Unavailable Unavailable Adis Sparrow MD Unavailable Unavailable Adis Sparrow MD Unavailable Unavailable Adis Sparrow MD Unavailable Unavailable Adis Sparrow MD Unavailable Unavailable Adis Sparrow MD Unavailable Unavailable Adis Sparrow MD Unavailable Unavailable Adis Sparrow MD Unavailable Unavailable Adis Sparrow MD Unavailable Unavailable Adis Sparrow MD Unavailable Unavailable dAis Sparrow MD Unavailable Unavailable Adis Sparrow MD Unavailable Unavailable Adis Sparrow MD Unavailable Unavailable Adis Sparrow MD Unavailable Unavailable Adis Sparrow MD Unavailable Unavailable Adsi Sparrow MD Unavailable Unavailable Adis Sparrow MD Unavailable Unavailable Adis Sparrow MD Unavailable Unavailable Adis Sparrow MD Unavailable Unavailable Adis Sparrow MD Unavailable Unavailable Adis Sparrow MD Unavailable Unavailable Adis Sparrow MD Unavailable Unavailable Adis Sparrow MD Unavailable Unavailable Adis Sparrow MD Unavailable Unavailable Adis Sparrow MD Unavailable Unavailable Adis Sparrow MD Unavailable Unavailable Adis Sparrow MD Unavailable Unavailable Adis Sparrow MD Unavailable Unavailable Adis Sparrow MD Unavailable Unavailable Adis Sparrow MD Unavailable Unavailable Adis Sparrow MD Unavailable Unavailable Adis Sparrow MD Unavailable Unavailable Adis Sparrow MD Unavailable Unavailable Adis Sparrow MD Unavailable Unavailable Adis Sparrow MD Unavailable Unavailable Adis Sparrow MD Unavailable Unavailable Adis Sparrow MD Unavailable Unavailable Adis Sparrow MD Unavailable Unavailable Adis Sparrow MD Unavailable Unavailable Adis Sparrow MD Unavailable Unavailable Adis Sparrow MD Unavailable Unavailable Adis Sparrow MD Unavailable Unavailable Adis Sparrow MD Unavailable Unavailable Adis Sparrow MD Unavailable Unavailable Adis Sparrow MD Unavailable Unavailable Adis Sparrow MD Unavailable Unavailable Adis Sparrow MD Unavailable Unavailable Adis Sparrow MD Unavailable Unavailable Adis Sparrow MD Unavailable Unavailable Adis Sparrow MD Unavailable Unavailable Adis Sparrow MD Unavailable Unavailable Adis Sparrow MD Unavailable Unavailable Adis Sparrow MD Unavailable Unavailable Adis Sparrow MD Unavailable Unavailable Adis Sparrow MD Unavailable Unavailable Adis Sparrow MD Unavailable Unavailable Adis Sparrow MD Unavailable Unavailable Adis Sparrow MD Unavailable Unavailable Adis Sparrow MD Unavailable Unavailable Adis Sparrow MD Unavailable Unavailable Adis Sparrow MD Unavailable Unavailable Adis Sparrow MD Unavailable Unavailable Adis Sparrow MD Unavailable Unavailable Adis Sparrow MD Unavailable Unavailable Adis Sparrow MD Unavailable Unavailable Adis Sparrow MD Unavailable Unavailable Adis Sparrow MD Unavailable Unavailable Adis Sparrow MD Unavailable Unavailable Adis Sparrow MD Unavailable Unavailable Adis Sparrow MD Unavailable Unavailable Adis Sparrow MD Unavailable Unavailable Adis Sparrow MD Unavailable Unavailable Adis Sparrow MD Unavailable Unavailable Adis Sparrow MD Unavailable Unavailable Adis Sparrow MD Unavailable Unavailable Adis Sparrow MD Unavailable Unavailable Adis Sparrow MD Unavailable Unavailable Adis Sparrow MD Unavailable Unavailable Adis Sparrow MD Unavailable Unavailable Adis Sparrow MD Unavailable Unavailable Adis Sparrow MD Unavailable Unavailable Adis Sparrow MD Unavailable Unavailable Adis Sparrow MD Unavailable Unavailable Adis Sparrow MD Unavailable Unavailable Adis Sparrow MD Unavailable Unavailable Adis Sparrow MD Unavailable Unavailable Adis Sparrow MD Unavailable Unavailable Adis Sparrow MD Unavailable Unavailable Adis Sparrow MD Unavailable Unavailable Adis Sparrow MD Unavailable Unavailable Adis Sparrow MD Unavailable Unavailable Adis Sparrow MD Unavailable Unavailable Adis Sparrow MD Unavailable Unavailable Adis Sparrow MD Unavailable Unavailable Adis Sparrow MD Unavailable Unavailable Adis Sparrow MD Unavailable Unavailable Adis Sparrow MD Unavailable Unavailable Adis Sparrow MD Unavailable Unavailable Adis Sparrow MD Unavailable Unavailable Adis Sparrow MD Unavailable Unavailable Adis Sparrow MD Unavailable Unavailable Adis Sparrow MD Unavailable Unavailable Adis Sparrow MD Unavailable Unavailable Adis Sparrow MD Unavailable Unavailable Adis Sparrow MD Unavailable Unavailable Adis Sparrow MD Unavailable Unavailable Adis Sparrow MD Unavailable Unavailable Adis Sparrow MD Unavailable Unavailable Adis Sparrow MD Unavailable Unavailable Adis Sparrow MD Unavailable Unavailable Adis Sparrow MD Unavailable Unavailable Adis Sparrow MD Unavailable Unavailable Adis Sparrow MD Unavailable Unavailable Adis Sparrow MD Unavailable Unavailable Adis Sparrow MD Unavailable Unavailable Adis Sparrow MD Unavailable Unavailable Adis Sparrow MD Unavailable Unavailable Adis Sparrow MD Unavailable Unavailable Adis Sparrow MD Unavailable Unavailable Adis Sparrow MD Unavailable Unavailable Adis Sparrow MD Unavailable Unavailable Adis Sparrow MD Unavailable Unavailable Adis Sprarow MD Unavailable Unavailable Adis Sparrow MD Unavailable Unavailable Adis Sparrow MD Unavailable Unavailable Adis Sparrow MD Unavailable Unavailable Adis Sparrow MD Unavailable Unavailable Adis Sparrow MD Unavailable Unavailable Adis Sparrow MD Unavailable Unavailable Adis Sparrow MD Unavailable Unavailable Adis Sparrow MD Unavailable Unavailable Adis Sparrow MD Unavailable Unavailable Adis Sparrow MD Unavailable Unavailable Adis Sparrow MD Unavailable Unavailable Adis Sparrow MD Unavailable Unavailable Adis Sparrow MD Unavailable Unavailable Adis Sparrow MD Unavailable Unavailable Adis Sparrow MD Unavailable Unavailable Adis Sparrow MD Unavailable Unavailable Adis Sparrow MD Unavailable Unavailable Adis Sparrow MD Unavailable Unavailable Adis Sparrow MD Unavailable Unavailable Adis Sparrow MD Unavailable Unavailable Adis Sparrow MD Unavailable Unavailable Adis Sparrow MD Unavailable Unavailable Adis Sparrow MD Unavailable Unavailable Adis Sparrow MD Unavailable Unavailable Adis Sparrow MD Unavailable Unavailable Adis Sparrow MD Unavailable Unavailable Adis Sparrow MD Unavailable Unavailable Adis Sparrow MD Unavailable Unavailable ROCK, M JOSE ARMANDO PA Unavailable Unavailable ROCK, M JOSE ARMANDO PA Unavailable Unavailable ROCK, M JOSE ARMANDO PA Unavailable Unavailable ROCK, M JOSE ARMANDO PA Unavailable Unavailable ROCK, M JOSE ARMANDO PA Unavailable Unavailable ROCK, M JOSE ARMANDO PA Unavailable Unavailable ROCK, M JOSE ARMANDO PA Unavailable Unavailable ROCK, M JOSE ARMANDO PA Unavailable Unavailable ROCK, M JOSE ARMANDO PA Unavailable Unavailable ROCK, M JOSE ARMANDO PA Unavailable Unavailable ROCK, M JOSE ARMANDO PA Unavailable Unavailable ROCK, M JOSE ARMANDO PA Unavailable Unavailable ROCK, M JOSE ARMANDO PA Unavailable Unavailable ROCK, M JOSE ARMANDO PA Unavailable Unavailable ROCK, M JOSE ARMANDO PA Unavailable Unavailable ROCK, M JOSE ARMANDO PA Unavailable Unavailable ROCK, M JOSE ARMANDO PA Unavailable Unavailable ROCK, M JOSE ARMANDO PA Unavailable Unavailable ROCK, M JOSE ARMANDO PA Unavailable Unavailable ROCK, M JOSE ARMANDO PA Unavailable Unavailable ROCK, M JOSE ARMANDO PA Unavailable Unavailable ROCK, M JOSE ARMANDO PA Unavailable Unavailable ROCK, M JOSE ARMANDO PA Unavailable Unavailable ROCK, M JOSE ARMANDO PA Unavailable Unavailable ROCK, M JOSE ARMANDO PA Unavailable Unavailable ROCK, M JOSE ARMANDO PA Unavailable Unavailable ROCK, M JOSE ARMANDO PA Unavailable Unavailable ROCK, M JOSE ARMANDO PA Unavailable Unavailable ROCK, M JOSE ARMANDO PA Unavailable Unavailable ROCK, M JOSE ARMANDO PA Unavailable Unavailable ROCK, M JOSE ARMANDO PA Unavailable Unavailable ROCK, M JOSE ARMANDO PA Unavailable Unavailable ROCK, M JOSE ARMANDO PA Unavailable Unavailable ROCK, M JOSE ARMANDO PA Unavailable Unavailable ROCK, M JOSE ARMANDO PA Unavailable Unavailable MAGGY, ARIS Unavailable Unavailable Noah, Apryl PA Unavailable Unavailable Noah, Apryl PA Unavailable Unavailable Noah, Apryl PA Unavailable Unavailable Noah, Apryl PA Unavailable Unavailable Noah, Apryl PA Unavailable Unavailable Noah, Apryl PA Unavailable Unavailable Noah, Apryl PA Unavailable Unavailable Noah, Apryl PA Unavailable Unavailable Noah, Apryl PA Unavailable Unavailable Noah, Apryl PA Unavailable Unavailable Noah, Apryl PA Unavailable Unavailable Noah, Apryl PA Unavailable Unavailable Noah, Apryl PA Unavailable Unavailable Noah, Apryl PA Unavailable Unavailable Noah, Apryl PA Unavailable Unavailable Noah, Apryl PA Unavailable Unavailable Noah, Apryl PA Unavailable Unavailable Noah, Apryl PA Unavailable Unavailable Noah, Apryl PA Unavailable Unavailable Noah, Apryl PA Unavailable Unavailable Noah, Apryl PA Unavailable Unavailable Noah, Apryl PA Unavailable Unavailable Noah, Apryl PA Unavailable Unavailable Noah, Apryl PA Unavailable Unavailable Noah, Apryl PA Unavailable Unavailable Noah, Apryl PA Unavailable Unavailable Noah, Apryl PA Unavailable Unavailable Noah, Apryl PA Unavailable Unavailable Noah, Apryl PA Unavailable Unavailable Noah, Apryl PA Unavailable Unavailable Noah, Apryl PA Unavailable Unavailable Noah, Apryl PA Unavailable Unavailable Noah, Apryl PA Unavailable Unavailable Noah, Apryl PA Unavailable Unavailable Noah, Apryl PA Unavailable Unavailable Noah, Apryl PA Unavailable Unavailable Noah, Apryl PA Unavailable Unavailable Noah, Apryl PA Unavailable Unavailable Noah, Apryl PA Unavailable Unavailable Noah, Apryl PA Unavailable Unavailable Noah, Apryl PA Unavailable Unavailable Noah, Apryl PA Unavailable Unavailable Noah, Apryl PA Unavailable Unavailable Noah, Apryl PA Unavailable Unavailable Noah, Apryl PA Unavailable Unavailable Noah, Apryl PA Unavailable Unavailable Noah, Apryl PA Unavailable Unavailable Noah, Apryl PA Unavailable Unavailable Noah, Apryl PA Unavailable Unavailable Noah, Apryl PA Unavailable Unavailable Re-disclosure Warning The records that you are about to access may contain information from federally-assisted alcohol or drug abuse programs. If such information is present, then the following federally mandated warning applies: This information has been disclosed to you from records protected by federal confidentiality rules (42 CFR part 2). The federal rules prohibit you from making any further disclosure of this information unless further disclosure is expressly permitted by the written consent of the person to whom it pertains or as otherwise permitted by 42 CFR part 2. A general authorization for the release of medical or other information is NOT sufficient for this purpose. The Federal rules restrict any use of the information to criminally investigate or prosecute any alcohol or drug abuse patient.The records that you are about to access may contain highly sensitive health information, the redisclosure of which is protected by Article 27-F of the [facility] Public Health law. If you continue you may have access to information: Regarding HIV / AIDS; Provided by facilities licensed or operated by the [facility] Office of Mental Health; or Provided by the [facility] Office for People With Developmental Disabilities. If such information is present, then the following [facility] mandated warning applies: This information has been disclosed to you from confidential records which are protected by state law. State law prohibits you from making any further disclosure of this information without the specific written consent of the person to whom it pertains, or as otherwise permitted by law. Any unauthorized further disclosure in violation of state law may result in a fine or senior living sentence or both. A general authorization for the release of medical or other information is NOT sufficient authorization for further disc losure. Allergies and Adverse Reactions Type Description Substance Reaction Status Data Source(s ) Propensity to adverse reactions BUPROPION Bupropion Acti ve [facility] Family History Family Member Name Family Member Gender Family Member Status Date o f Status Description Data Source(s) Unknown Female Problem [facility] ([facility] Unknown Unknown Problem [facility] ([facility]) Unknown Male Problem MEDENT ([facility]) Encounters Encounter Providers Location Date Indications Data Source(s ) [place] [address] [facility] [address] 05/20/2021 12:00:00 AM EDT eCW1 ([facility]) Unknown [address] [facility] [address] 05/19/2021 12:00:00 AM EDT eCW1 ([facility]) Outpatient Attender: ARIS WINTERReferrer: Stewart Haines MD [address] 05/13/2021 08:47:55 AM EDT [facility] Office Visit Attender: Isabella Sparrow MD Main Office 05/12/2021 01: 45:00 PM EDT MED[facility] ([facility]) Office Visit Attender: Isabella Sparrow MD Main Office 04/28/2021 01: 20:00 PM EDT [facility] ([facility]) Outpatient Attender: Stewart Haines MD [address] 04/14/2021 02:07:17 PM EDT [facility] Outpatient Attender: ARIS Riojaser: Stewart Haines MD [address] 04/06/2021 10:05:55 AM EDT - 04/06/2021 01:58:21 PM EDT [facility] Office Visit Attender: Isabella Sparrow MD Main Office 04/05/2021 01: 00:00 PM EDT [facility] ([facility]) [place] [address] [facility] [address] 03/31/2021 12:00:00 AM EDT eCW1 ([facility]) Unknown [address] [facility] [address] 03/24/2021 12:00:00 AM EDT eCW1 ([facility]) Inpatient Attender: Isabella Casas mitter: Isabella Sparrow MDConsultant: Stewart Haines MD [id number] 03/10/2021 02:00:00 PM EDT - 03/18/2021 11:49:00 AM EDT [facility] Patient discharged. Outpatient Attender: Isabella Sparrow MD Main Office 03/10/2021 01:00:00 PM EDT [facility] ([facility]) Outpatient Referrer: Zuhair Levine MD 03/10/2021 10:54:03 AM EDT [facility] Office Visit Attender: Zuhair Levine MD Main Office 03/10/2021 10:15:00 AM EDT [facility] ([facility]) Outpatient Attender: Zuhair Levine MD Main Office 03/01/2021 10:45:00 AM EDT [facility] Out[facility] Attender: Isabella Sparrow MD Main Office 02/19/2021 09:30:00 AM EDT [facility] ([facility]) Inpatient Attender: Isabella Sparrow MDAdmitter: Isabella chilel MD [id number] 01/25/2021 01:40:00 PM EDT - 01/29/2021 05:47:00 PM EDT [facility] Patient discharged. Outpatient Referrer: Zuhair Levine MD 01/20/2021 11:46:00 AM EDT [facility] Office Visit Attender: Zuhair Levine MD Main Office 01/20/2021 11:30:00 AM EDT [facility] ([facility]) Office Visit Attender: Isabella Sparrow MD Main Office 01/11/2021 02: 45:00 PM EDT [facility] ([facility]) Inpatient Attender: Isabella Casas mitter: Isabella Sparrow MDReferrer: DERIK COREAS MD [id number] 12/24/2020 10:37:00 AM EDT - 12/26/2020 03:16:00 PM EDT [facility] Patient discharged. [place] [address] [facility] [address] 12/21/2020 12:00:00 AM EDT eCW1 ([facility]) Office Visit Attender: Apryl URIBE Main Office 12/17/2020 01:00:00 PM EDT [facility] ([facility]) Office Visit Attender: Zuhair Levine MD Main Office 11/16/2020 11:15:00 AM EDT [facility] ([facility]) Office Visit Attender: Apryl URIBE Main Office 11/02/2020 01:30:00 PM EDT [facility] ([facility]) Inpatient Attender: JOSE Mosquera nder: Zuhair Levine MDAdmitter: Zuhair Levine MD [id number] 10/19/2020 11:53:08 AM EDT - 10/22/2020 12:02:00 PM EDT [facility] Patient discharged. Outpatient Attender: Zuhair Levine MD Main Office 10/19/2020 10:15:00 AM EDT [facility] ([facility]) Outpatient Attender: JOSE ARMANDO Cabrera/Romeo/Sven/Rein dl 08/11/2020 12:00:00 PM EST [facility] ([facility]) [place] [address] [facility] [address] 07/07/2020 12:00:00 AM EST eCW1 ([facility]) Out[place] [address] [facility] [address] 06/30/2020 12:00:00 AM EST eCW1 ([facility]) Outpatient Attender: SHE Cabrera/Romeo/Sven/Re indl 06/17/2020 07:45:00 AM EST [facility] ([facility]) Unknown [address] [facility] [address] 06/11/2020 12:00:00 AM EST eCW1 ([facility]) Office Visit Attender: Apryl URIBE Main Office 05/29/2020 08:30:00 AM EDT [facility] ([facility]) Unknown [address] [facility] [address] 05/20/2020 12:00:00 AM EDT eCW1 ([facility]) Unknown [address] [facility] [address] 05/18/2020 12:00:00 AM EDT eCW1 ([facility]) Unknown [address] [facility] [address] 05/14/2020 12:00:00 AM EDT eCW1 ([facility]) Office Visit Attender: Zuhair Levine MD Main Office 05/13/2020 09:45:00 AM EDT [facility] ([facility]) [place] [address] [facility] [address] 05/08/2020 12:00:00 AM EDT eCW1 ([facility]) Unknown [address] [facility] [address] 05/07/2020 12:00:00 AM EDT eCW1 ([facility]) Outpatient Referrer: Zuhair Levine MD MOB-MOB.PAT 04/23/20 20 10:09:37 AM EDT - 04/23/2020 10:09:55 AM EDT [facility] Outpatient Attender: Zuhair Levine MDReferrer: Zuhair Philip OB-MOB.PAT 04/23/2020 10:08:35 AM EDT - 04/23/2020 11:29:36 AM EDT [facility] Inpatient Attender: Zuhair Paiz stefan: JOSE MOMINAdmitter: Zuhair Levine MD [id number] 04/20/2020 11:11:52 AM EDT - 05/01/2020 11:27:00 AM EDT [facility] Patient discharged. Outpatient MOB-MOB.PAT 04/06/2020 07:40 :50 AM EDT - 04/06/2020 07:41:34 AM EDT [facility] Inpatient Attender: Isabella Casas mitter: Isabella Sparrow MDReferrer: Isabella Sparrow MD [id number] 04/03/2020 01:09:47 PM EDT - 04/06/2020 06:04:00 PM EDT [facility] Patient discharged. Immunizations Vaccine Date Status Description Data Source(s) COVID-19 VACCINE Pfizer 06/10/2021 12:00:00 AM EDT completed [facility] Vaccine Series Complete: YESThis Data wa s Submitted to [facility] Via [employer]. influenza, recombinant, quadrIvalent,injectable, prese rvative free 05/20/2021 04:37:00 PM EDT completed eCW1 ([facility]) influenza, recombinant, quadrIvalent,injectable, prese rvative free 05/20/2021 04:37:00 PM EDT completed eCW1 ([facility]) Tdap 05/20/2021 04:36:00 PM EDT completed e CW1 ([facility]) Tdap 05/20/2021 04:36:00 PM EDT completed e CW1 ([facility]) COVID-19 VACCINE Pfizer 09/27/2020 12:00:00 AM EST completed [facility] Vaccine Series Complete: YESThis Data wa s Submitted to [facility] Via [employer]. COVID-19 VACCINE, MRNA, [id number], LNP-S (PFIZER)/PF 09/27/19 12:00:00 AM EST completed [facility] COVID-19 VACCINE Pfizer 09/06/2020 12:00:00 AM EST completed [facility] Vaccine Series Complete: NOThis Data was Submitted to [facility] Via [employer]. COVID-19 VACCINE, MRNA, [id number], LNP-S (PFIZER)/PF 01/31/20 21 12:00:00 AM EST completed [facility] New in 2011. IIV4 04/30/2020 12:00:00 AM EDT completed [facility] ([facility]) New in 2011. IIV4 04/30/2020 12:00:00 AM EDT completed <t d ID="[id number]">Influenza Quad 0.5mL Pres-Free</td><td>04/30/2020 (Deferred: - order d/c'd), 04/29/2020</td><td></td> [facility] Deferred: - order d/c'd New in 2011. IIV4 04/29/2020 12:00:00 PM EDT completed [facility] ([facility]) New in 2011. IIV4 04/29/2020 12:00:00 AM EDT completed <t d ID="[id number]">Influenza Quad 0.5mL Pres-Free</td><td>04/30/2020 (Deferred: - order d/c'd), 04/29/2020</td><td></td> [facility] Medications Medication Brand Name Start Date Product Form Dose Route Admi nistrative Instructions Pharmacy Instructions Status Indications [facility] 12:00:00 AM EDT active [facility] pregabalin 75 MG Oral Capsule Pregabalin 06/03/2021 12:00:00 AM EDT ORAL active [facility] ([facility] pregabalin 50 MG Oral Capsule Pregabalin 05/28/2021 12:00:00 AM EDT ORAL active [facility] ([facility]) tramadol hydrochloride 50 MG Oral Tablet Tramadol HCL 05/12/2021 12:00:00 AM EDT ORAL active [facility] ([facility]) gabapentin 300 MG Oral Capsule Gabapentin 05/12/2021 12:00:00 AM EDT ORAL completed [facility] ([facility]) pregabalin 50 MG Oral Capsule Pregabalin 05/12/2021 12:00:00 AM EDT ORAL completed [facility] ([facility]) tramadol hydrochloride 50 MG Oral Tablet traMADol (ULT SHALINI) 50 MG tablet traMADol (ULTRAM) 50 MG tablet 05/12/2021 12:00:00 AM EDT a ctive [facility] gabapentin 300 MG Oral Capsule Gabapentin 04/28/2021 12:00:00 AM EDT ORAL completed [facility] ([facility]) gabapentin 300 MG Oral Capsule gabapentin (NEURONTIN) 300 MG capsule gabapentin (NEURONTIN) 300 MG capsule 04/28/2021 12:00:00 AM EDT 600 mg Oral active Take 600 mg by mouth 3 (three) times a d ay [facility] Metronidazole 500 MG Oral Tablet metroNIDAZOLE (FLAGYL ) 500 MG tablet metroNIDAZOLE (FLAGYL) 500 MG tablet 04/14/2021 12:00:00 AM EDT active 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 DO NOT EXCEED 3 PER 24 HOURS [facility] Potassium Chloride 10 MEQ Extended Relea se Oral Tablet potassium chloride (K- DUR) 10 MEQ tablet potassium chloride (K-DUR) 10 MEQ tablet 03/29/2021 12 :00:00 AM EDT aborted [facility] Tamsulosin hydrochloride 0.4 MG Oral Cap yamila tamsulosin (FLOMAX) 24 hr capsule 0.8 mg tamsulosin (FLOMAX) 24 hr capsule 0.8 mg 03/17/2021 08:00:00 PM EDT 0.8 mg Oral completed 0.8 mg, Or al, Once, On Mon03/17/21 at 2000, For 1 dose [facility] Medication administered onsite meropenem (MERREM) 1 g injection [id number] 03/17/2021 12:00:00 AM E DT aborted Infuse 1g IV Q8h until [facility] 3 ML heparin sodium, porcine 100 UNT/ML Prefilled Syringe heparin 100 UNIT/ML SOLN heparin 100 UNIT/ML SOLN 03/17/2021 12:00:00 AM EDT 500 U Intravenous aborted Infuse 5 mL (500 Units total) into a venous catheter See Admin Instructions After dose and as needed [facility] Sodium Chloride Flush (Saline Flush) 0.9 % [facility] [id number] 03/17/2021 12:00:00 AM EDT aborted 10ml IV before and after dose and blood draws [facility] Chlorhexidine Gluconate (Biopatch) (Dressing) [facility] [phone] 50 03/17/2021 12:00:00 AM EDT aborted Apply to PICC insertion site weekly and PRN with dressing change, may dispense AMD [facility] Meropenem-Sodium Chloride Meropenem-Sodium Chloride 03/17/2021 1 2:00:00 AM EDT completed [facility] ([facility]) Acetaminophen 325 MG / Oxycodone Hydrochloride 5 MG Or al Tablet Oxycodone-Acetaminophen 03/17/2021 12:00:00 AM EDT ORAL completed [facility] ([facility]) 3 ML heparin sodium, porcine 100 UNT/ML Prefilled Syri nge Heparin Sodium Lock Flush 03/17/2021 12:00:00 AM EDT completed [facility] ([facility]) 2.5 ML Sodium Chloride 9 MG/ML Prefilled Syringe Sodium Chlo ride Flush 03/17/2021 12:00:00 AM EDT completed [facility] ([facility]) Acetaminophen 325 MG / Oxycodone Hydroch loride 5 MG Oral Tablet oxyCODONE- acetaminophen (PERCOCET) 5-325 MG per tablet oxyCODONE-acetaminophen (PERCOCET) 5-325 MG per tablet 03/17/2021 12:00:00 AM EDT {tbl} Oral active Take 0.5-1 tablets by mouth every 8 (eight) hours as needed for pain Max Daily Amount: 3 tablets [facility] oxyCODONE-acetaminophen (PERCOCET) 5-325 MG 0.5 tablet 03/16/2021 05:31:15 PM EDT 0.5 {tbl} Oral active [Order 1 Start] Name: oxyCODONE- acetaminophen (PERCOCET) 5-325 MG 0.5 tablet Signed Summary: 0.5 tablet, Oral, Every 4 hours PRN, moderate pain (4-6), Starting on Mon03/16/21 at 1731, For 7 days [Order 1 End] [Order 2 Start] Name: oxyCODONE-acetaminophen (PERCOCET) 5- 325 MG 1 tablet Signed Summary: 1 tablet, Oral, Every 4 hours PRN, severe pain (7-10), Starting on Mon03/16/21 at 1731, For 7 days [Order 2 End] [facility] Medication administered onsite meropenem (MERREM) injection 1 g [id number] 03/16/2021 09:00:00 AM EDT 1 g Intravenous active Skin and Soft Tissue Infection 1 g, Intravenous, Every 8 hours (relative), Indications: Skin and Soft Tissue Infection, graft infection, First dose (after last modification) on Mon03/16/21 at 0900
TIMES ADJUSTED FOR HOME ABX Reconstitute with 20 ml STERILE WATER for injection. Administer IV push over 5 minutes. Use within 1 hour of reconstitution.
This anti-infective requires approval from infectious disease: Please indicate approving infectious disease physician: Dr. Haines [facility] Skin and Soft Tissue Infection Medication administered onsite vancomycin (VANCOCIN) IVPB 1,000 mg [id number] 03/15/2021 05:00:0 0 AM EDT 1000 mg Intravenous aborted 1,000 mg , Intravenous, Administer over 1 Hours, Every 24 hours (relative), First dose (after last modification) on Mon03/15/21 at 0500 [facility] Medication administered onsite Acetaminophen 325 MG Oral Tablet acetaminophen (TYLENO L) 325 MG tablet 650 mg acetaminophen (TYLENOL) 325 MG tablet 650 mg 03/13/2021 12:00:00 PM EDT 650 mg Oral active 650 mg, Or al, Every 6 hours, First dose (after last modification) on 03/13/21 at 1200 [facility] Medication administered onsite Lactulose 667 MG/ML Oral Solution lactul ose (CHRONULAC) 10 GM/15ML solution 20 g lactulose (CHRONULAC) 10 GM/15ML solution 20 g 03/13/2021 09:00: 00 AM EDT 20 g Oral completed 20 g, Oral, Once, On S at 03/13/21 at 0900, For 1 dose [facility] Medication administered onsite gabapentin 100 MG Oral Capsule gabapentin (NEURONTIN) capsule 200 mg gabapentin (NEURONTIN) capsule 200 mg 03/13/2021 09:00:00 AM EDT 200 mg Oral active 200 mg, Oral, 3 times daily, First dose (after last modification) on 03/13/21 at 0900 [facility] Medication administered onsite Bisacodyl 10 MG Rectal Suppository bisacodyl (DULCOLAX ) suppository 10 mg bisacodyl (DULCOLAX) suppository 10 mg 03/13/2021 09:00:00 AM EDT 10 mg Rectal active 10 mg, Rectal, Daily, First dose on 03/13/21 at 0900
hold for loose stools
[facility] Medication administered onsite Oxycodone Hydrochloride 5 MG Oral Tablet oxyCODONE (ROXICODONE) immediate release tablet 2.5 mg oxyCODONE (ROXICODONE) immediate release tablet 2.5 mg 03/13/2021 08:19:25 AM EDT 2.5 mg Oral aborted 2.5 mg, Oral, Every 3 hours PRN, moderate pain (4-6), severe pain (7-10), Starting on 03/13/21 at 0819, For 7 days [facility] Medication administered onsite meropenem (MERREM) injection 1 g [id number] 03/12/2021 02:00:00 PM EDT 1 g Intravenous aborted Skin and Soft Tissue Infection 1 g, Intravenous, Every 12 hours (relative), First dose (after last modification) on Mon03/12/21 at 1400
Reconstitute with 20 ml STERILE WATER for injection. Administer IV push over 5 minutes. Use within 1 hour of reconstitution.
This anti-infective requires approval from infectious disease: Please indicate approving infectious disease physician: Dr. Haines [facility] Skin and Soft Tissue Infection Medication administered onsite 60 ACTUAT formoterol fumarate 0.005 MG/A CTUAT / mometasone furoate 0.2 MG/ACTUAT Metered Dose Inhaler mometasone-formoterol (DULERA) 200-5 MCG/ACT inhaler 2 puff mometasone-formoterol (DULERA) 200-5 MCG/ACT inhaler 2 puff 03/12/2021 01:00:00 PM EDT 2 {puff} Inhalation active 2 pu ff, Inhalation, 2 times daily, First dose (after last reorder) on Mon03/12/21 at 1300 [facility] Medication administered onsite vancomycin HCl (VANCOCIN) 750 mg in dextrose 5 % 250 mL IVPB 03/12/2021 05:00:00 AM EDT 750 mg Intravenous aborted 750 mg, Intravenous, Administer over 60 Minutes, Every 18 hours, First dose on Mon03/12/21 at 0500 [facility] Medication administered onsite normal saline flush 0.9 % injection 3 mL [id number] 03/11/2021 09:00:00 PM EDT 3 mL Intravenous aborted 3 mL , Intravenous, PROTOCOL, First dose on Cee 03/11/21 at 2100, PACU & Post-op
With good PO intake (600 ml X 1 shift)
[facility] Medication administered onsite Magnesium Chloride 0.36637 MEQ/ML / Pota ssium Chloride 0.0497 MEQ/ML / Sodium Acetate 0.0163 MEQ/ML / Sodium Chloride 0.0899 MEQ/ML / Sodium gluconate 5.02 MG/ML Injectable Solution [Normosol-R] electrolyte-R (NORMOSOL-R/PLASMALYTE-R) solution electrolyte-R (NORMOSOL-R/PLASMALYTE-R) solution 03/11 06:00:00 PM EDT Intravenous aborted at 7 5 mL/hr, Intravenous, Continuous, Starting on Cee 03/11/21 at 1800, PACU & Post-op
D/c with good po intake.
[facility] Medication administered onsite ondansetron (ZOFRAN) injection 4 mg [id number] 03/11/2021 04:48:5 5 PM EDT 4 mg Intravenous active 4 mg, In travenous, As needed, nausea, vomiting, Starting on Cee 03/11/21 at 1648, PACU & Post-op
Give for one dose if no response from metoclopramide
[facility] Medication administered onsite fentaNYL Citrate (PF) (SUBLIMAZE) injection 25 mcg [id number] 03/11/2021 03:42:14 PM EDT 25 ug Intravenous aborted 25 mcg, Intravenous, Every 5 min PRN, moderate pain (4 to 6), Starting on Cee 03/11/21 at 1542, For 10 doses, PACU (only) [facility] Medication administered onsite vancomycin (VANCOCIN) IVPB 1,000 mg [id number] 03/11/2021 11:00:0 0 AM EDT 1000 mg Intravenous completed 1,000 mg , Intravenous, Administer over 1 Hours, Once, On Cee 03/11/21 at 1100, For 1 dose [facility] Medication administered onsite Docusate Sodium 100 MG Oral Capsule docusate sodium (C OLACE) capsule 100 mg docusate sodium (COLACE) capsule 100 mg 03/11/2021 09:00:00 AM EDT 100 mg Oral active 100 mg, Oral, Daily, First dose on Cee 03/11/21 at 0900
hold for loose stools
[facility] Medication administered onsite pantoprazole 40 MG Delayed Release Oral Tablet pantoprazole (PROTONIX) EC tablet 40 mg pantoprazole (PROTONIX) EC tablet 40 mg 03/11/2021 09:00:00 AM E DT 40 mg Oral active Gastroesophageal Reflux Diseas e 40 mg, Oral, Daily, Indications: Gastroesophageal Reflux Disease, First dose on Cee 8/5/21 at 0900 [facility] Gastroesophageal Reflux Disease Medication administered onsite Aspirin 81 MG Delayed Release Oral Tablet aspirin EC t ablet 81 mg aspirin EC tablet 81 mg 03/11/2021 09:00:00 AM EDT 81 mg Oral activ e 81 mg, Oral, Daily, First dose on Mon03/11/21 at 0900 [facility] Medication administered onsite clopidogrel 75 MG Oral Tablet clopidogrel (PLAVIX) tab let 75 mg clopidogrel (PLAVIX) tablet 75 mg 03/11/2021 09:00:00 AM EDT 75 mg Oral active 75 mg, Oral, Daily, First dose on Mon03/11/21 at 0900 [facility] Medication administered onsite ferrous sulfate 325 MG Oral Tablet ferrous sulfate tab let 325 mg ferrous sulfate tablet 325 mg 03/11/2021 09:00:00 AM EDT 325 mg Oral acti ve 325 mg, Oral, Daily, First dose on Mon03/11/21 at 0900
Separate from antacids as far as possible. Take with food, do not crush
[facility] Medication administered onsite Magnesium Chloride 0.59721 MEQ/ML / Pota ssium Chloride 0.0497 MEQ/ML / Sodium Acetate 0.0163 MEQ/ML / Sodium Chloride 0.0899 MEQ/ML / Sodium gluconate 5.02 MG/ML Injectable Solution [Normosol-R] electrolyte-R (NORMOSOL-R/PLASMALYTE-R) solution electrolyte-R (NORMOSOL-R/PLASMALYTE-R) solution 03/11 12:00:00 AM EDT Intravenous aborted at 7 5 mL/hr, Intravenous, Continuous, Starting on Mon03/11/21 at 0000 [facility] Medication administered onsite Acetaminophen 325 MG Oral Tablet acetaminophen (TYLENO L) 325 MG tablet 650 mg acetaminophen (TYLENOL) 325 MG tablet 650 mg 03/10/2021 11:36:01 PM EDT 650 mg Oral aborted 650 mg, Or al, Every 4 hours PRN, mild pain (1-3), Starting on Mon03/10/21 at 2336 [facility] Medication administered onsite heparin (porcine) injection 5,000 Units [id number] 03/10/20 10:00:00 PM EDT 5000 U Subcutaneous active 5,000 Units , Subcutaneous, Every 8 hours (scheduled), First dose on Mon03/10/21 at 2200
If platelet count is less than 90,000 or hematocrit is less than 25, or if there is a 5 point decrease in hematocrit, do not give the dose and call physician/designee.
[facility] Medication administered onsite fentaNYL Citrate (PF) (SUBLIMAZE) injection 25 mcg [id number] 03/10/2021 09:56:11 PM EDT 25 ug Intravenous aborted 25 mcg, Intravenous, Every 2 hour PRN, severe pain (7-10), pain uncontrolled with PO analgesia, Starting on Mon03/10/21 at 2156, For 7 days [facility] Medication administered onsite normal saline flush 0.9 % injection 3 mL [id number] 03/10/2021 09:00:00 PM EDT 3 mL Intravenous aborted 3 mL , Intravenous, PROTOCOL, First dose on Mon03/10/21 at 2100
flush per protocol, D/C Main IV fluid if appropriate
[facility] Medication administered onsite potassium chloride SA (K-DUR,KLOR-CON) CR tablet 10 mEq [id number] 03/10/2021 09:00:00 PM EDT 10 meq Oral active 10 mEq, Oral, 2 times daily, First dose on Mon03/10/21 at 2100 [facility] Medication administered onsite Ascorbic Acid 200 MG / Beta Carotene 100 0 UNT / cuprous oxide 2 MG / dl-alpha tocopheryl acetate 60 UNT / Lutein 2 MG / sodium selenate 0.055 MG / Zinc Oxide 40 MG Oral Tablet [Ocuvite] beta carotene w/ C and E mineral (OCUVITE) 1 tablet beta carotene w/ C and E mineral (OCUVITE) 1 tablet 03/10/2021 09:00:00 PM EDT 1 {tbl} Oral active 1 tablet, Oral, Nightly, First dose on Mon03/10/21 at 2100 [facility] Medication administered onsite Lisinopril 5 MG Oral Tablet lisinopril (PRINIVIL,ZESTR IL) tablet 2.5 mg lisinopril (PRINIVIL,ZESTRIL) tablet 2.5 mg 03/10/2021 09:00:00 PM EDT 2.5 mg Oral active 2.5 mg, Oral, Nightly, First dose on Mon03/10/21 at 2100
Hold for SBP less than 110
[facility] Medication administered onsite gabapentin 100 MG Oral Capsule gabapentin (NEURONTIN) capsule 200 mg gabapentin (NEURONTIN) capsule 200 mg 03/10/2021 09:00:00 PM EDT 200 mg Oral aborted 200 mg, Oral, 2 times daily, First dose on Mon03/10/21 at 2099 [facility] Medication administered onsite atorvastatin 40 MG Oral Tablet atorvastatin (LIPITOR) tablet 40 mg atorvastatin (LIPITOR) tablet 40 mg 03/10/2021 09:00:00 PM EDT 40 mg Oral active 40 mg, Oral, Nightly, First dose on Mon03/10/21 at 2100 [facility] Medication administered onsite carvedilol 3.125 MG Oral Tablet carvedilol (COREG) tab let 3.125 mg carvedilol (COREG) tablet 3.125 mg 03/10/2021 09:00:00 PM EDT 3.125 mg Oral active 3.125 mg, Oral, 2 times daily, First dos e on Mon03/10/21 at 2100
Hold for sbp <100, HR <50
[facility] Medication administered onsite Cholecalciferol 1000 UNT Oral Tablet Vit scott D (CHOLECALCIFEROL) tablet 1,000 Units Vitamin D (CHOLECALCIFEROL) tablet 1,000 Units 03/10/2021 09 :00:00 PM EDT 1000 U Oral active 1,000 Units, Ora l, Nightly, First dose on Mon03/10/21 at 2099 [facility] Medication administered onsite 60 ACTUAT formoterol fumarate 0.005 MG/A CTUAT / mometasone furoate 0.2 MG/ACTUAT Metered Dose Inhaler mometasone-formoterol (DULERA) 200-5 MCG/ACT inhaler 2 puff mometasone-formoterol (DULERA) 200-5 MCG/ACT inhaler 2 puff 03/10/2021 08:00:00 PM EDT 2 {puff} Inhalation aborted 2 puff, Inhalation, 2 times daily, First dose on Mon03/10/21 at 2000 [facility] Medication administered onsite doxycycline (VIBRAMYCIN) 100 mg in sodiu m chloride (NS) 0.9 % 100 mL IVPB pigtail 03/10/2021 05:00:00 PM EDT 100 mg Intravenous aborted Skin and Soft Tissue Infection 100 mg, Intravenous, Adminis ter over 60 Minutes, Every 12 hours (relative), First dose on Mon03/10/21 at 1700
send unused med back to rx for disposal
[facility] Skin and Soft Tissue Infection Medication administered onsite COLLAGENASE 0.25 UNT/MG Topical Ointment collagenase o intment collagenase ointment 03/10/2021 04:00:00 PM EDT Topical active Topical, Daily, First dose on Mon03/10/21 at 1600, Until Discontinued [facility] Medication administered onsite normal saline flush 0.9 % injection 3 mL [id number] 03/10/2021 04:00:00 PM EDT 3 mL Intravenous active 3 mL , Intravenous, Every 8 hours (scheduled), First dose on Mon03/10/21 at 1600
flush per protocol, D/C Main IV fluid if appropriate
[facility] Medication administered onsite Furosemide 20 MG Oral Tablet furosemide (LASIX) tablet 20 mg furosemide (LASIX) tablet 20 mg 03/10/2021 04:00:00 PM EDT 20 mg Oral activ e 20 mg, Oral, Daily, First dose on Mon03/10/21 at 1600 [facility] Medication administered onsite Ipratropium [place] 0.2 MG/ML Inhalant S olution ipratropium (ATROVENT) 0.02 % nebulizer solution 0.5 mg ipratropium (ATROVENT) 0.02 % nebulizer solution 0.5 mg 03/10/2021 04:00:00 PM EDT 0.5 mg active 0.5 mg, Nebulization, 4 times daily, First dose on Mon03/10/21 at 1600 [facility] Medication administered onsite Albuterol 0.833 MG/ML / Ipratropium Brom janelle 0.167 MG/ML Inhalant Solution ipratropium-albuterol (DUO-NEB) 0.5-2.5 mg/mL nebulizer solution 3 mL ipratropium-albuterol (DUO-NEB) 0.5-2.5 mg/mL nebulizer solution 3 mL 03/10/2021 03:27:14 PM EDT 3 mL Inhalation active 3 mL, Inhalation, Every 6 hours PRN, for shortness of breath, Starting on Mon03/10/21 at 1527 [facility] Medication administered onsite Acetaminophen 325 MG / Hydrocodone Emilia trate 5 MG Oral Tablet HYDROcodone- acetaminophen (NORCO) 5-325 MG per tablet 0.5 tablet HYDROcodone-acetaminophen (NORCO) 5-325 MG per tablet 0.5 tablet 03/10/2021 03:27:06 PM EDT 0.5 {tbl} Oral aborted 0.5 tablet, Or al, Every 4 hours PRN, moderate pain (4-6), severe pain (7-10), Starting on Mon03/10/21 at 1527, For 7 days [facility] Medication administered onsite Azithromycin 250 MG Oral Tablet Azithromycin 02/19/2021 12:00:00 AM EDT completed [facility] ([facility] COLLAGENASE 0.25 UNT/MG Topical Ointment collagenase o intment collagenase ointment 01/30/2021 12:00:00 AM EDT Topical active Apply topically daily [facility] COLLAGENASE 0.25 UNT/MG Topical Ointment [Santyl] Santyl 01/30/2021 12:00:00 AM EDT active [facility] ([facility] Docusate Sodium 50 MG / sennosides, RETIREMENT 8.6 MG Oral Tablet senna-docusate (PERICOLACE) 8.6-50 MG senna-docusate (PERICOLACE) 8.6-50 MG 01/29/2021 12:00 :00 AM EDT 2 {tbl} Oral active Take 2 t ablets by mouth nightly as needed for constipation [facility] doxycycline hyclate 100 MG Oral Tablet Doxycycline Hyclate 0 01/29/2021 12:00:00 AM EDT ORAL completed [facility] ([facility]) Docusate Sodium 50 MG / sennosides, RETIREMENT 8.6 MG Oral Ta blet Senna-Docusate Sodium 01/29/2021 12:00:00 AM EDT ORAL active [facility] ([facility]) Acetaminophen 325 MG / Oxycodone Hydrochloride 5 MG Or al Tablet Oxycodone-Acetaminophen 01/22/2021 12:00:00 AM EDT ORAL completed [facility] ([facility]) Docusate Sodium 100 MG Oral Capsule docusate sodium (C OLACE) capsule 100 mg docusate sodium (COLACE) capsule 100 mg 12/26/2020 09:00:00 AM EDT 100 mg Oral active 100 mg, Oral, Every other day, First dose on Mon12/26/20 at 0900
hold for loose stools
[facility] Medication administered onsite Cholecalciferol 1000 UNT Oral Tablet Vit scott D (CHOLECALCIFEROL) tablet 1,000 Units Vitamin D (CHOLECALCIFEROL) tablet 1,000 Units 12/25/2020 09 :00:00 PM EDT 1000 U Oral active 1,000 Units, Ora l, Nightly, First dose on Mon12/25/20 at 2100 [facility] Medication administered onsite sodium chloride 0.9% (NS) infusion [id number] 12/25/2020 02:00:00 P M EDT Intravenous active at 50 mL/hr, Intravenous, Continuous, Starting on Mon12/25/20 at 1400 [facility] Medication administered onsite iodixanol (VISIPAQUE) 320 MG/ML injection 150 mL [id number] 12/25/2020 12:37:37 PM EDT 150 mL Intra-arterial completed 150 mL, Intra-arterial, Once in imaging, contrast, Starting on Mon12/25/20 at 1237, For 1 dose [facility] Medication administered onsite 2 ML Midazolam 1 MG/ML Injection midazolam (VERSED) in jection midazolam (VERSED) injection 12/25/2020 11:59:29 AM EDT Intravenous co mpleted Intravenous, Code/trauma/sedation medication, Starting on Mon12/25/20 at 1159 [facility] Medication administered onsite fentaNYL Citrate (PF) (SUBLIMAZE) injection [id number] 12/25/2020 11:59:25 AM EDT Intravenous completed In travenous, Code/trauma/sedation medication, Starting on Mon12/25/20 at 1159 [facility] Medication administered onsite clopidogrel 75 MG Oral Tablet clopidogrel (PLAVIX) tab let 75 mg clopidogrel (PLAVIX) tablet 75 mg 12/25/2020 09:00:00 AM EDT 75 mg Oral active 75 mg, Oral, Daily, First dose on Mon12/25/20 at 0900 [facility] Medication administered onsite Aspirin 81 MG Delayed Release Oral Tablet aspirin EC t ablet 81 mg aspirin EC tablet 81 mg 12/25/2020 09:00:00 AM EDT 81 mg Oral activ e 81 mg, Oral, Daily, First dose on Mon12/25/20 at 0900 [facility] Medication administered onsite Morphine Sulfate (PF) injection 2 mg [id number] 12/25/2020 06:52: 16 AM EDT 2 mg Intravenous active 2 mg, In travenous, Every 3 hours PRN, severe pain if oral ineffective after 1 hour, Starting on Mon12/25/20 at 0652, For 7 days [facility] Medication administered onsite fentaNYL Citrate (PF) (SUBLIMAZE) injection 25 mcg [id number] 12/25/2020 05:00:00 AM EDT 25 ug Intravenous completed 25 mcg, Intravenous, Once, On Mon12/25/20 at 0600, For 1 dose [facility] Medication administered onsite Magnesium Chloride 0.91030 MEQ/ML / Pota ssium Chloride 0.0497 MEQ/ML / Sodium Acetate 0.0163 MEQ/ML / Sodium Chloride 0.0899 MEQ/ML / Sodium gluconate 5.02 MG/ML Injectable Solution [Normosol-R] electrolyte-R (NORMOSOL-R/PLASMALYTE-R) solution electrolyte-R (NORMOSOL-R/PLASMALYTE-R) solution 12/25 12:00:00 AM EDT Intravenous aborted at 6 0 mL/hr, Intravenous, Continuous, Starting on Mon12/25/20 at 0000 [facility] Medication administered onsite Lisinopril 5 MG Oral Tablet lisinopril (PRINIVIL,ZESTR IL) tablet 2.5 mg lisinopril (PRINIVIL,ZESTRIL) tablet 2.5 mg 12/24/2020 09:00:00 PM EDT 2.5 mg Oral active 2.5 mg, Oral, Nightl y, First dose on Cee 12/24/20 at 2100 [facility] Medication administered onsite carvedilol 3.125 MG Oral Tablet carvedilol (COREG) tab let 3.125 mg carvedilol (COREG) tablet 3.125 mg 12/24/2020 09:00:00 PM EDT 3.125 mg Oral active 3.125 mg, Oral, 2 times daily, First dos e on Mon12/24/20 at 2100
Hold for HR <50, SBP <110
[facility] Medication administered onsite atorvastatin 40 MG Oral Tablet atorvastatin (LIPITOR) tablet 40 mg atorvastatin (LIPITOR) tablet 40 mg 12/24/2020 09:00:00 PM EDT 40 mg Oral active 40 mg, Oral, Nightly, First dose on Cee 12/24/20 at 2100 [facility] Medication administered onsite 60 ACTUAT formoterol fumarate 0.005 MG/A CTUAT / mometasone furoate 0.2 MG/ACTUAT Metered Dose Inhaler mometasone-formoterol (DULERA) 200-5 MCG/ACT inhaler 2 puff mometasone-formoterol (DULERA) 200-5 MCG/ACT inhaler 2 puff 12/24/2020 08:00:00 PM EDT 2 {puff} Inhalation active 2 pu ff, Inhalation, 2 times daily, First dose on Cee 12/24/20 at 2000 [facility] Medication administered onsite normal saline flush 0.9 % injection 3 mL [id number] 12/24/2020 04:00:00 PM EDT 3 mL Intravenous active 3 mL , Intravenous, Every 8 hours (scheduled), First dose on Cee 12/24/20 at 1600
flush per protocol, D/C Main IV fluid if appropriate
[facility] Medication administered onsite pantoprazole 40 MG Delayed Release Oral Tablet pantoprazole (PROTONIX) EC tablet 40 mg pantoprazole (PROTONIX) EC tablet 40 mg 12/24/2020 04:00:00 PM E DT 40 mg Oral active Gastroesophageal Reflux Diseas e 40 mg, Oral, Daily, Indications: Gastroesophageal Reflux Disease, First dose on Cee 12/24/20 at 1600 [facility] Gastroesophageal Reflux Disease Medication administered onsite ferrous sulfate 325 MG Oral Tablet ferrous sulfate tab let 325 mg ferrous sulfate tablet 325 mg 12/24/2020 04:00:00 PM EDT 325 mg Oral acti ve 325 mg, Oral, Daily, First dose on Cee 12/24/20 at 1600
Separate from antacids as far as possible. Take with food, do not crush
[facility] Medication administered onsite Furosemide 20 MG Oral Tablet furosemide (LASIX) tablet 20 mg furosemide (LASIX) tablet 20 mg 12/24/2020 04:00:00 PM EDT 20 mg Oral activ e 20 mg, Oral, Daily, First dose on Cee 12/24/20 at 1600 [facility] Medication administered onsite gabapentin 100 MG Oral Capsule gabapentin (NEURONTIN) capsule 200 mg gabapentin (NEURONTIN) capsule 200 mg 12/24/2020 04:00:00 PM EDT 200 mg Oral active 200 mg, Oral, 2 times daily, First dose on Cee 12/24/20 at 1600 [facility] Medication administered onsite potassium chloride SA (K-DUR,KLOR-CON) CR tablet 10 mEq [id number] 12/24/2020 04:00:00 PM EDT 10 meq Oral active 10 mEq, Oral, 2 times daily, First dose on Cee 12/24/20 at 1600 [facility] Medication administered onsite Albuterol 0.83 MG/ML Inhalant Solution a lbuterol (PROVENTIL) nebulizer solution 2.5 mg albuterol (PROVENTIL) nebulizer solution 2.5 mg 2020 04:00:00 PM EDT 2.5 mg active 2.5 mg, Nebulization, Every 6 hours while awake, First dose on Cee 12/24/20 at 1600 [facility] Medication administered onsite Nitroglycerin 0.4 MG Sublingual Tablet n itroglycerin (NITROSTAT) SL tablet 0.4 mg nitroglycerin (NITROSTAT) SL tablet 0.4 mg 12/24/2020 03:01:12 P M EDT 0.4 mg Sublingual active 0.4 mg, S ublingual, Every 5 min PRN, chest pain, Starting on Cee 12/24/20 at 1501
May administer up to 3 doses per episode.
[facility] Medication administered onsite Albuterol 0.833 MG/ML / Ipratropium Brom janelle 0.167 MG/ML Inhalant Solution ipratropium-albuterol (DUO-NEB) 0.5-2.5 mg/mL nebulizer solution 3 mL ipratropium-albuterol (DUO-NEB) 0.5-2.5 mg/mL nebulizer solution 3 mL 12/24/2020 03:01:12 PM EDT 3 mL Inhalation active 3 mL, Inhalation, Every 6 hours PRN, for shortness of breath, Starting on Cee 12/24/20 at 1501 [facility] Medication administered onsite 1 ML heparin sodium, porcine 1000 UNT/ML Injection heparin (porcine) injection 4,300 Units heparin (porcine) injection 4,300 Units 12/24/2020 12:10:00 PM EDT 75 U/kg Intravenous completed 4,300 Unit s (rounded from 4,252.5 Units = 75 Units/kg 56.7 kg), Intravenous, Once, On Cee 12/24/20 at 1210, For 1 dose
Do not exceed 10,000 units or 75 units/kg (whichever is less)
[facility] Medication administered onsite 500 ML heparin sodium, porcine 50 UNT/ML Injection heparin infusion 25,000 units in 500 mL 0.45% NaCl heparin infusion 25,000 units in 500 mL 0.45% NaCl 12/24/2020 12:10:00 PM EDT 12 U/kg/h Intravenous aborted 12 Units/kg/hr 56.7 kg (13.608 mL/hr, rounded to 13.6 mL/hr), Intravenous, at 13.6 mL/hr, Continuous, Starting on Cee 12/24/20 at 1210
For DVT/PEaPTT (seconds) Heparin Dose (weight based)< 34 Bolus: 75 units/kg IV (Maximum bolus: 10,000 units) and increase infusion 3 units/kg/hr IV34 - 50 Bolus: 40 units/kg IV (Maximum bolus: 10,000 units) and increase infusion 2 units/kg/hr IV50.1 - 58 No bolus. Increase infusion 1 unit/kg/hr IV58.1 - 87 Therapeutic, No Hdoqio73.1 - 97 Decrease infusion 1 unit/kg/hr IV 97.1 - 110Hold infusion for 30 minutes & decrease infusion 2 units/kg/hr IV> 110 Call MD if patient is bleeding. Hold infusion for 60 minutes & decrease infusion 3 units/kg/hr IVInitial heparin IV infusion rate:Do not exceed 1500 units/hour or 15 units/kg/hr (whichever is less)Infuse this medication only through single port tubing ([employer] Infusion Set ref [id number]). Medication and tubing is to be discarded if infusion off for 4 hours.
[facility] Medication administered onsite Acetaminophen 325 MG Oral Tablet acetaminophen (TYLENO L) 325 MG tablet 650 mg acetaminophen (TYLENOL) 325 MG tablet 650 mg 12/24/2020 11:42:43 AM EDT 650 mg Oral active 650 mg, Or al, Every 4 hours PRN, mild pain (1-3), Starting on Cee 12/24/20 at 1142
"Maximum dose of acetaminophen is 4,000 mg from all sources in 24 hours."
[facility] Medication administered onsite ondansetron (ZOFRAN) injection 4 mg [id number] 12/24/2020 11:42:2 8 AM EDT 4 mg Intravenous active 4 mg, In travenous, Every 6 hours PRN, nausea, vomiting, Starting on Cee 12/24/20 at 1142 [facility] Medication administered onsite Acetaminophen 325 MG / Hydrocodone Emilia trate 5 MG Oral Tablet HYDROcodone- acetaminophen (NORCO) 5-325 MG per tablet 1-2 tablet HYDROcodone-acetaminophen (NORCO) 5-325 MG per tablet 1-2 tablet 12/24/2020 11:36:34 AM EDT {tbl} Oral active 1-2 tablet, Ora l, Every 4 hours PRN, moderate pain (4-6), severe pain (7-10), Starting on Cee 12/24/20 at 1136, For 7 days [facility] Medication administered onsite Acetaminophen 325 MG / Hydrocodone Bitartrate 5 MG Ora l Tablet Hydrocodone-Acetaminophen 12/17/2020 12:00:00 AM EDT ORAL completed [facility] ([facility]) gabapentin 100 MG Oral Capsule Gabapentin 12/04/2020 12:00:00 AM EDT ORAL completed [facility] ([facility]) gabapentin 100 MG Oral Capsule Gabapentin 11/16/2020 12:00:00 AM EDT ORAL completed [facility] ([facility]) gabapentin 300 MG Oral Capsule Gabapentin 11/02/2020 12:00:00 AM EDT ORAL completed [facility] ([facility]) Acetaminophen 325 MG / Hydrocodone Bitartrate 5 MG Ora l Tablet Hydrocodone-Acetaminophen 10/26/2020 12:00:00 AM EDT ORAL completed [facility] ([facility]) Clindamycin 12 MG/ML Injectable Solution clindamycin (CLEOCIN) IVPB 600 mg (premix) clindamycin (CLEOCIN) IVPB 600 mg (premix) 10/20/2020 05:00: 00 PM EDT 600 mg Intravenous completed Perioperative Pharmacoprop hylaxis 600 mg, Intravenous, Administer over 30 Minutes, Every 8 hours (relative), First dose on Mon10/20/20 at 1700, For 2 doses [facility] Perioperative Pharmacoprophylaxis Medication administered onsite HYDROmorphone (DILAUDID) injection 0.2 mg [id number] 10/20/2020 02:49:41 PM EDT 0.2 mg Intravenous active 0.2 mg, Intravenous, Every 2 hour PRN, severe pain (7-10), Starting [facility] 10/20/20 at 1449, For 7 days [facility] Medication administered onsite Acetaminophen 325 MG / Hydrocodone Emilia trate 5 MG Oral Tablet HYDROcodone- acetaminophen (NORCO) 5-325 MG per tablet 1 tablet HYDROcodone-acetaminophen (NORCO) 5-325 MG per tablet 1 tablet 10/20/2020 01:53:06 PM EDT 1 { tbl} Oral active 1 tablet, Oral, Every 6 hours PRN, severe pain (7-10), Starting [facility] 10/20/20 at 1353, For 7 days [facility] Medication administered onsite POLYETHYLENE GLYCOL 3350 142 MG/ML Oral Solution polyethylene glycol (GLYCOLAX) packet 17 g polyethylene glycol (GLYCOLAX) packet 17 g 10/20/2020 01:42:38 PM EDT 17 g Oral active 17 g, Or al, Daily PRN, if no result from milk of magnesia (MOM), Starting [facility] 10/20/20 at 1342, PACU & Post-op [facility] Medication administered onsite Magnesium Hydroxide 80 MG/ML Oral Suspen alex magnesium hydroxide (MILK OF MAGNESIA) 400 MG/5ML suspension 30 mL magnesium hydroxide (MILK OF MAGNESIA) 4 00 MG/5ML suspension 30 mL 10/20/2020 01:42:38 PM EDT 30 mL Oral active 30 mL, Oral, Daily PRN, constipation, Starting [facility] 10/20/20 at 1342, PACU & Post-op [facility] Medication administered onsite fentaNYL Citrate (PF) (SUBLIMAZE) injection 25 mcg [id number] 10/20/2020 11:49:23 AM EDT 25 ug Intravenous aborted 25 mcg, Intravenous, Every 5 min PRN, moderate pain (4 to 6), max 8 doses, Starting [facility] 10/20/20 at 1149, For 2 hours, PACU (only) [facility] Medication administered onsite pantoprazole 40 MG Delayed Release Oral Tablet pantoprazole (PROTONIX) EC tablet 40 mg pantoprazole (PROTONIX) EC tablet 40 mg 10/20/2020 09:00:00 AM E DT 40 mg Oral active Stress Ulcer ProphylaxisGastro esophageal Reflux Disease 40 mg, Oral, Daily, Indications: Gastroesophageal Reflux Disease, Stress Ulcer Prophylaxis, First dose on Mon10/20/20 at 0900 [facility] Stress Ulcer Prophylaxis Gastroesophageal Reflux Disease Medication administered onsite ferrous sulfate 325 MG Oral Tablet ferrous sulfate tab let 325 mg ferrous sulfate tablet 325 mg 10/20/2020 09:00:00 AM EDT 325 mg Oral acti ve 325 mg, Oral, Daily, First dose on Mon10/20/20 at 09
Separate from antacids as far as possible. Take with food, do not crush
[facility] Medication administered onsite Aspirin 81 MG Delayed Release Oral Tablet aspirin EC t ablet 81 mg aspirin EC tablet 81 mg 10/20/2020 09:00:00 AM EDT 81 mg Oral activ e 81 mg, Oral, Daily, First dose on Mon10/20/20 at 09 [facility] Medication administered onsite clopidogrel 75 MG Oral Tablet clopidogrel (PLAVIX) tab let 75 mg clopidogrel (PLAVIX) tablet 75 mg 10/20/2020 09:00:00 AM EDT 75 mg Oral active 75 mg, Oral, Daily, First dose on Mon10/20/20 at 0900 [facility] Medication administered onsite sodium chloride 0.9% (NS) infusion [id number] 10/20/2020 12:00:00 A M EDT Intravenous aborted at 75 mL/hr, Intravenous, Continuous, Starting Mon10/20/20 at 0000
HL with good PO intake
[facility] Medication administered onsite Bisacodyl 10 MG Rectal Suppository bisacodyl (DULCOLAX ) suppository 10 mg bisacodyl (DULCOLAX) suppository 10 mg 10/20/2020 12:00:00 AM EDT 10 mg Rectal active 10 mg, Rectal, Daily PRN, constipation, Starting Mon10/20/20 at 0000
Hold for BM. If senna-docusate and milk of magnesia are not effective
[facility] Medication administered onsite Mineral Oil 1000 MG/ML Enema mineral oil enema 1 enema mineral oil enema 1 enema 10/20/2020 12:00:00 AM EDT 1 {enema} Rectal active 1 enema, Rectal, Daily PRN, constipation, unrelieved by MOM/bisacodyl/senna-docusate, Starting Mon10/20/20 at 0000
hold for loose stools
[facility] Medication administered onsite Lisinopril 5 MG Oral Tablet lisinopril (PRINIVIL,ZESTR IL) tablet 2.5 mg lisinopril (PRINIVIL,ZESTRIL) tablet 2.5 mg 10/19/2020 09:00:00 PM EDT 2.5 mg Oral active 2.5 mg, Oral, Nightly, First dose on Mon10/19/20 at 2100
Hold for systolic 100 or less.
[facility] Medication administered onsite potassium chloride SA (K-DUR,KLOR-CON) CR tablet 10 mEq [id number] 10/19/2020 09:00:00 PM EDT 10 meq Oral active 10 mEq, Oral, 2 times daily, First dose on Mon10/19/20 at 2100 [facility] Medication administered onsite Docusate Sodium 50 MG / sennosides, RETIREMENT 8.6 MG Oral Tablet senna-docusate (PERICOLACE) 8.6-50 MG 2 tablet senna-docusate (PERICOLACE) 8.6-50 MG 2 tablet 10/19/2020 09:00:00 PM EDT 2 {tbl} Oral active 2 tablet, Oral, Nightly, First dose on Mon10/19/20 at 2100
hold for loose stools
[facility] Medication administered onsite carvedilol 3.125 MG Oral Tablet carvedilol (COREG) tab let 3.125 mg carvedilol (COREG) tablet 3.125 mg 10/19/2020 09:00:00 PM EDT 3.125 mg Oral active 3.125 mg, Oral, 2 times daily, First dos e on Mon10/19/20 at 2100
Hold for HR 60 or less
[facility] Medication administered onsite atorvastatin 40 MG Oral Tablet atorvastatin (LIPITOR) tablet 40 mg atorvastatin (LIPITOR) tablet 40 mg 10/19/2020 09:00:00 PM EDT 40 mg Oral active 40 mg, Oral, Nightly, First dose on Mon10/19/20 at 2100 [facility] Medication administered onsite Cholecalciferol 1000 UNT Oral Tablet Vit scott D (CHOLECALCIFEROL) tablet 1,000 Units Vitamin D (CHOLECALCIFEROL) tablet 1,000 Units 10/19/2020 09 :00:00 PM EDT 1000 U Oral active 1,000 Units, Ora l, Nightly, First dose on Mon10/19/20 at 2100 [facility] Medication administered onsite Docusate Sodium 100 MG Oral Capsule docusate sodium (C OLACE) capsule 100 mg docusate sodium (COLACE) capsule 100 mg 10/19/2020 08:00:00 PM EDT 100 mg Oral active 100 mg, Oral, Every other day, First dose on Mon10/19/20 at 2000
hold for loose stools
[facility] Medication administered onsite Furosemide 20 MG Oral Tablet furosemide (LASIX) tablet 20 mg furosemide (LASIX) tablet 20 mg 10/19/2020 08:00:00 PM EDT 20 mg Oral activ e 20 mg, Oral, Daily, First dose on Mon10/19/20 at 2000
Hold for systolic 100 or less.
[facility] Medication administered onsite 60 ACTUAT formoterol fumarate 0.005 MG/A CTUAT / mometasone furoate 0.2 MG/ACTUAT Metered Dose Inhaler mometasone-formoterol (DULERA) 200-5 MCG/ACT inhaler 2 puff mometasone-formoterol (DULERA) 200-5 MCG/ACT inhaler 2 puff 10/19/2020 08:00:00 PM EDT 2 {puff} Inhalation active 2 pu ff, Inhalation, 2 times daily, First dose on Mon10/19/20 at 2000 [facility] Medication administered onsite Nitroglycerin 0.4 MG Sublingual Tablet n itroglycerin (NITROSTAT) SL tablet 0.4 mg nitroglycerin (NITROSTAT) SL tablet 0.4 mg 10/19/2020 06:52:16 P M EDT 0.4 mg Sublingual active 0.4 mg, S ublingual, Every 5 min PRN, chest pain, Starting Mon10/19/20 at 1852
May administer up to 3 doses per episode.
[facility] Medication administered onsite Albuterol 0.833 MG/ML / Ipratropium Brom janelle 0.167 MG/ML Inhalant Solution ipratropium-albuterol (DUO-NEB) 0.5-2.5 mg/mL nebulizer solution 3 mL ipratropium-albuterol (DUO-NEB) 0.5-2.5 mg/mL nebulizer solution 3 mL 10/19/2020 06:52:09 PM EDT 3 mL Inhalation active 3 mL, Inhalation, Every 6 hours PRN, for shortness of breath, Starting Mon10/19/20 at 1852 [facility] Medication administered onsite Acetaminophen 325 MG / Hydrocodone Emilia trate 5 MG Oral Tablet HYDROcodone- acetaminophen (NORCO) 5-325 MG per tablet 0.5 tablet HYDROcodone-acetaminophen (NORCO) 5-325 MG per tablet 0.5 tablet 10/19/2020 06:51:48 PM EDT 0.5 {tbl} Oral active 0.5 tablet, Or al, Every 6 hours PRN, moderate pain (4-6), Starting Mon10/19/20 at 1851, For 7 days [facility] Medication administered onsite Albuterol 0.83 MG/ML Inhalant Solution a lbuterol (PROVENTIL) nebulizer solution 2.5 mg albuterol (PROVENTIL) nebulizer solution 2.5 mg 2020 06:50:41 PM EDT 2.5 mg active 2.5 mg, Nebulization, RT 4 times daily as needed, wheezing, shortness of breath, Starting Mon10/19/20 at 1850 [facility] Medication administered onsite normal saline flush 0.9 % injection 3 mL [id number] 10/19/2020 02:00:00 PM EDT 3 mL Intravenous active 3 mL , Intravenous, Every 8 hours (scheduled), First dose on Mon10/19/20 at 1400
flush per protocol, D/C Main IV fluid if appropriate
[facility] Medication administered onsite Acetaminophen 325 MG Oral Tablet acetaminophen (TYLENO L) 325 MG tablet 650 mg acetaminophen (TYLENOL) 325 MG tablet 650 mg 10/19/2020 01:00:00 PM EDT 650 mg Oral active 650 mg, Or al, Every 6 hours PRN, mild pain (1-3), Starting Mon10/19/20 at 1300 [facility] Medication administered onsite ondansetron (ZOFRAN) injection 4 mg [id number] 10/19/2020 12:30:0 0 PM EDT 4 mg Intravenous active 4 mg, In travenous, Every 4 hours PRN, nausea, vomiting, Starting Mon10/19/20 at 1230 [facility] Medication administered onsite sodium chloride 0.9% (NS) infusion [id number] 10/19/2020 12:20:00 P M EDT Intravenous aborted at 30 mL/hr, Intravenous, Continuous, Starting Mon10/19/20 at 1220
Increase this MFIV to 75 cc/hr at [place] tonight when she becomes NPO. Thank you.
[facility] Medication administered onsite carbamide peroxide 65 MG/ML Otic Solution [Debrox] Debrox 6. 5 % Debrox 6.5 % 06/30/2020 12:00:00 AM EST 5.0 {drops_into_affected_ear} active Debrox 6.5 % eCW1 ([facility] Ondansetron 4 MG Oral Tablet [Zofran] Zofran 4 MG Zofran 4 M G 06/12/2020 12:00:00 AM EST 1.0 {tablet_as_needed} active Zofran 4 MG eCW1 ([facility]) Ondansetron 4 MG Oral Tablet [Zofran] Zofran 4 MG Zofran 4 M G 06/12/2020 12:00:00 AM EST 1.0 {tablet_as_needed} active Zofran 4 MG eCW1 ([facility]) Ondansetron 4 MG Oral Tablet [Zofran] Zofran 4 MG Zofran 4 M G 06/12/2020 12:00:00 AM EST 1.0 {tablet_as_needed} active Zofran 4 MG eCW1 ([facility]) Ondansetron 4 MG Oral Tablet [Zofran] Zofran 4 MG Zofran 4 M G 06/12/2020 12:00:00 AM EST 1.0 {tablet_as_needed} active eCW1 ([facility]) Ondansetron 4 MG Oral Tablet [Zofran] Zofran 4 MG Zofran 4 M G 06/12/2020 12:00:00 AM EST 1.0 {tablet_as_needed} active Zofran 4 MG eCW1 ([facility]) Ondansetron 4 MG Oral Tablet [Zofran] Zofran 4 MG Zofran 4 M G 06/12/2020 12:00:00 AM EST 1.0 {tablet_as_needed} active Zofran 4 MG eCW1 ([facility]) Ondansetron 4 MG Oral Tablet [Zofran] Zofran 4 MG Zofran 4 M G 06/12/2020 12:00:00 AM EST 1.0 {tablet_as_needed} active Zofran 4 MG eCW1 ([facility]) Ondansetron 4 MG Oral Tablet [Zofran] Zofran 4 MG Zofran 4 M G 06/12/2020 12:00:00 AM EST 1.0 {tablet_as_needed} active Zofran 4 MG eCW1 ([facility]) Ondansetron 4 MG Oral Tablet [Zofran] Zofran 4 MG Zofran 4 M G 06/12/2020 12:00:00 AM EST 1.0 {tablet_as_needed} active Zofran 4 MG eCW1 ([facility]) Acetaminophen 325 MG / Hydrocodone Emilia trate 5 MG Oral Tablet HYDROcodone- acetaminophen (NORCO) 5-325 MG per tablet HYDROcodone-acetaminophen (NORCO) 5- 325 MG per tablet 05/01/2020 12:00:00 AM EDT 1 {tbl} Oral aborted Take 1 tablet by mouth every 6 (six) hours as needed for pain Max Daily Amount: 4 tablets [facility] Acetaminophen 325 MG / Hydrocodone Emilia trate 5 MG Oral Tablet HYDROcodone- acetaminophen (NORCO) 5-325 MG per tablet 0.5 tablet HYDROcodone-acetaminophen (NORCO) 5-325 MG per tablet 0.5 tablet 04/29/2020 10:00:00 AM EDT 0.5 {tbl} Oral active 0.5 tablet, Or al, Every 4 hours PRN, moderate pain (4-6), Starting Mon04/29/20 at 1000, For 144 hours [facility] Medication administered onsite Acetaminophen 325 MG / Hydrocodone Emilia trate 5 MG Oral Tablet HYDROcodone- acetaminophen (NORCO) 5-325 MG per tablet 1 tablet HYDROcodone-acetaminophen (NORCO) 5-325 MG per tablet 1 tablet 04/29/2020 10:00:00 AM EDT 1 { tbl} Oral active 1 tablet, Oral, Every 4 hours PRN, severe pain (7-10), Starting Mon04/29/20 at 1000, For 144 hours [facility] Medication administered onsite Influenza Vac Split Quad injection 0.5 mL [id number] 04/29/2020 0 9:00:00 AM EDT 0.5 mL Intramuscular completed 0.5 mL , Intramuscular, During hospitalization, Mon04/29/20 at 0900, For 1 dose [facility] Medication administered onsite clopidogrel 75 MG Oral Tablet clopidogrel (PLAVIX) tab let 75 mg clopidogrel (PLAVIX) tablet 75 mg 04/29/2020 09:00:00 AM EDT 75 mg Oral active 75 mg, Oral, Daily, First dose on Mon04/29/20 at 0900 [facility] Medication administered onsite Furosemide 20 MG Oral Tablet furosemide (LASIX) tablet 20 mg furosemide (LASIX) tablet 20 mg 04/29/2020 09:00:00 AM EDT 20 mg Oral activ e 20 mg, Oral, Daily, First dose on Mon04/29/20 at 0900 [facility] Medication administered onsite potassium chloride SA (K-DUR,KLOR-CON) CR tablet 10 mEq [id number] 9-359-04/29/2020 09:00:00 AM EDT 10 meq Oral active 10 mEq, Oral, 2 times daily, First dose on Mon04/29/20 at 0900 [facility] Medication administered onsite normal saline flush 0.9 % injection 3 mL [id number] 04/28/2020 10:00:00 PM EDT 3 mL Intravenous active 3 mL , Intravenous, PROTOCOL, First dose on Mon04/28/20 at 2200, PACU & Post-op
With good PO intake (600 ml X 1 shift)
[facility] Medication administered onsite rivaroxaban (XARELTO) 2.5 mg [id number] 04/28/2020 09:00:00 PM EDT 2.5 mg Oral active 2.5 mg, Oral, 2 times daily, First dose on Mon04/28/20 at 2100 [facility] Medication administered onsite carvedilol 3.125 MG Oral Tablet carvedilol (COREG) tab let 3.125 mg carvedilol (COREG) tablet 3.125 mg 04/28/2020 09:00:00 PM EDT 3.125 mg Oral active 3.125 mg, Oral, 2 times daily, First dos e on Mon04/28/20 at 2100
Hold for SBP less than 100, HR less than 60
[facility] Medication administered onsite atorvastatin 40 MG Oral Tablet atorvastatin (LIPITOR) tablet 40 mg atorvastatin (LIPITOR) tablet 40 mg 04/28/2020 09:00:00 PM EDT 40 mg Oral active 40 mg, Oral, Nightly, First dose on Mon04/28/20 at 2100 [facility] Medication administered onsite Alprazolam 0.25 MG Oral Tablet ALPRAZolam (XANAX) tabl et 0.25 mg ALPRAZolam (XANAX) tablet 0.25 mg 04/28/2020 09:00:00 PM EDT 0.25 mg Oral active 0.25 mg, Oral, Nightly PRN, sleep, Starting Mon04/28/20 at 2100, For 7 days [facility] Medication administered onsite Lisinopril 5 MG Oral Tablet lisinopril (PRINIVIL,ZESTR AL) tablet 2.5 mg lisinopril (PRINIVIL,ZESTRIL) tablet 2.5 mg 04/28/2020 09:00:00 PM EDT 2.5 mg Oral active 2.5 mg, Oral, Nightly, First dose on Mon04/28/20 at 2100
Hold for SBP less than 110
[facility] Medication administered onsite 60 ACTUAT formoterol fumarate 0.005 MG/A CTUAT / mometasone furoate 0.2 MG/ACTUAT Metered Dose Inhaler mometasone-formoterol (DULERA) 200-5 MCG/ACT inhaler 2 puff mometasone-formoterol (DULERA) 200-5 MCG/ACT inhaler 2 puff 04/28/2020 08:00:00 PM EDT 2 {puff} Inhalation active 2 puff, Inhalation, 2 times daily, First dose on Mon04/28/20 at 2000
Formulary substitution for Advair Diskus
[facility] Medication administered onsite Acetaminophen 325 MG / Hydrocodone Emilia trate 5 MG Oral Tablet HYDROcodone- acetaminophen (NORCO) 5-325 MG per tablet 1 tablet HYDROcodone-acetaminophen (NORCO) 5-325 MG per tablet 1 tablet 04/28/2020 06:20:09 PM EDT 1 { tbl} Oral aborted 1 tablet, Oral, Every 6 hours PRN, severe pain (7-10), Starting Mon04/28/20 at 1820, For 167 hours [facility] Medication administered onsite Docusate Sodium 100 MG Oral Capsule docusate sodium (C OLACE) capsule 100 mg docusate sodium (COLACE) capsule 100 mg 04/28/2020 05:00:00 PM EDT 100 mg Oral active 100 mg, Oral, 2 times daily, First dose on Mon04/28/20 at 1700
hold for loose stools
[facility] Medication administered onsite pantoprazole 40 MG Delayed Release Oral Tablet pantoprazole (PROTONIX) EC tablet 40 mg pantoprazole (PROTONIX) EC tablet 40 mg 04/28/2020 05:00:00 PM E DT 40 mg Oral active Gastrointestinal Hemorrhage 40 mg, Oral, Daily, Indications: Gastrointestinal Hemorrhage, First dose on Mon04/28/20 at 1700 [facility] Gastrointestinal Hemorrhage Medication administered onsite Clindamycin 18 MG/ML Injectable Solution clindamycin (CLEOCIN) IVPB 900 mg (premix) clindamycin (CLEOCIN) IVPB 900 mg (premix) 04/28/2020 04:00: 00 PM EDT 900 mg Intravenous completed Perioperative Pharmacoprop hylaxis 900 mg, Intravenous, Administer over 30 Minutes, Every 8 hours (relative), First dose on Mon04/28/20 at 1600, For 2 doses [facility] Perioperative Pharmacoprophylaxis Medication administered onsite sennosides, RETIREMENT 8.6 MG Oral Tablet senna (SENOKOT) tab let 8.6 mg senna (SENOKOT) tablet 8.6 mg 04/28/2020 04:00:00 PM EDT 8.6 mg Oral act lisa 8.6 mg, Oral, Daily, First dose on Mon04/28/20 at 1600, PACU & Post-op [facility] Medication administered onsite dextrose 5 % and sodium chloride 0.45 % with KCl 20 mEq/L in fusion [id number] 04/28/2020 04:00:00 PM EDT Intravenous aborted at 75 mL/hr, Intravenous, Continuous, Starting Mon04/28/20 at 1600, PACU & Post-op
This is a "Triggered Filled Infusion" and is automatically sent based on the current rate documented in the flow sheets
[facility] Medication administered onsite POLYETHYLENE GLYCOL 3350 142 MG/ML Oral Solution polyethylene glycol (GLYCOLAX) packet 17 g polyethylene glycol (GLYCOLAX) packet 17 g 04/28/2020 02:51:19 PM EDT 17 g Oral active 17 g, Or al, Daily PRN, if no result from milk of magnesia (MOM), Starting Mon04/28/20 at 1451, PACU & Post-op [facility] Medication administered onsite 2 ML Metoclopramide 5 MG/ML Prefilled Sy ringe metoclopramide (REGLAN) injection 10 mg metoclopramide (REGLAN) injection 10 mg 04/28/2020 02:51:19 PM E DT 10 mg Intravenous active 10 mg, I ntravenous, Every 6 hours PRN, heartburn, Starting Mon04/28/20 at 1451, PACU & Post-op [facility] Medication administered onsite ondansetron (ZOFRAN) injection 4 mg [id number] 04/28/2020 02:51:1 9 PM EDT 4 mg Intravenous active 4 mg, In travenous, As needed, nausea, vomiting, Starting Mon04/28/20 at 1451, PACU & Post-op
Give for one dose if no response from metoclopramide
[facility] Medication administered onsite Magnesium Hydroxide 80 MG/ML Oral Suspen alex magnesium hydroxide (MILK OF MAGNESIA) 400 MG/5ML suspension 30 mL magnesium hydroxide (MILK OF MAGNESIA) 4 00 MG/5ML suspension 30 mL 04/28/2020 02:51:19 PM EDT 30 mL Oral active 30 mL, Oral, Daily PRN, constipation, Starting Mon04/28/20 at 1451, PACU & Post-op [facility] Medication administered onsite Acetaminophen 325 MG / Hydrocodone Emilia trate 5 MG Oral Tablet HYDROcodone- acetaminophen (NORCO) 5-325 MG per tablet 0.5 tablet HYDROcodone-acetaminophen (NORCO) 5-325 MG per tablet 0.5 tablet 04/28/2020 02:51:19 PM EDT 0.5 {tbl} Oral aborted 0.5 tablet, Or al, Every 6 hours PRN, moderate pain (4-6), Starting Mon04/28/20 at 1451, For 7 days [facility] Medication administered onsite Albuterol 0.833 MG/ML / Ipratropium Brom janelle 0.167 MG/ML Inhalant Solution ipratropium-albuterol (DUO-NEB) 0.5-2.5 mg/mL nebulizer solution 3 mL ipratropium-albuterol (DUO-NEB) 0.5-2.5 mg/mL nebulizer solution 3 mL 04/28/2020 02:51:19 PM EDT 3 mL Inhalation active 3 mL, Inhalation, Every 6 hours PRN, for shortness of breath, Starting Mon04/28/20 at 1451 [facility] Medication administered onsite Bisacodyl 10 MG Rectal Suppository bisacodyl (DULCOLAX ) suppository 10 mg bisacodyl (DULCOLAX) suppository 10 mg 04/28/2020 02:51:18 PM EDT 10 mg Rectal active 10 mg, Rectal, Daily PRN, constipation, Starting Mon04/28/20 at 1451, PACU & Post-op [facility] Medication administered onsite Acetaminophen 325 MG Oral Tablet acetaminophen (TYLENO L) 325 MG tablet 650 mg acetaminophen (TYLENOL) 325 MG tablet 650 mg 04/28/2020 02:51:18 PM EDT 650 mg Oral active 650 mg, Or al, Every 4 hours PRN, headaches, fever, temp greater than 101.6, Starting Mon04/28/20 at 1451, PACU & Post-op
"Maximum dose of acetaminophen is 4,000 mg from all sources in 24 hours."
[facility] Medication administered onsite Albuterol 0.83 MG/ML Inhalant Solution a lbuterol (PROVENTIL) nebulizer solution 2.5 mg albuterol (PROVENTIL) nebulizer solution 2.5 mg 2019 02:51:18 PM EDT 2.5 mg active 2.5 mg, Nebulization, RT every 4 hours as needed, shortness of breath, Starting Mon04/28/20 at 1451 [facility] Medication administered onsite ondansetron (ZOFRAN) injection 4 mg [id number] 04/28/2020 10:44:1 8 AM EDT 4 mg Intravenous completed 4 mg, In travenous, Once as needed, nausea, vomiting, if not given in last 4 hours, Starting Mon04/28/20 at 1044, For 1 dose, PACU (only) [facility] Medication administered onsite fentaNYL Citrate (PF) (SUBLIMAZE) injection 25 mcg [id number] 04/28/2020 10:44:18 AM EDT 25 ug Intravenous aborted 25 mcg, Intravenous, Every 5 min PRN, moderate pain (4 to 6), Starting Mon04/28/20 at 1044, For 10 doses, PACU (only) [facility] Medication administered onsite Magnesium Chloride 0.08100 MEQ/ML / Pota ssium Chloride 0.0497 MEQ/ML / Sodium Acetate 0.0163 MEQ/ML / Sodium Chloride 0.0899 MEQ/ML / Sodium gluconate 5.02 MG/ML Injectable Solution [Normosol-R] electrolyte-R (NORMOSOL-R/PLASMALYTE-R) solution electrolyte-R (NORMOSOL-R/PLASMALYTE-R) solution 04/28 08:00:00 AM EDT Intravenous aborted at 1 00 mL/hr, Intravenous, Continuous, Starting Mon04/28/20 at 0800, Pre-op [facility] Medication administered onsite Acetaminophen 325 MG Oral Tablet acetaminophen (TYLENO L) 325 MG tablet acetaminophen (TYLENOL) 325 MG tablet 12/28/2019 12:00:00 AM EDT 65 0 mg Oral aborted Take 2 tablets (650 mg total) by mouth every 6 (six) hours as needed for pain [facility] rivaroxaban (XARELTO) 2.5 MG TABS [id number] 12/27/2019 12:00:00 AM E DT 2.5 mg Oral aborted Take 1 tablet (2.5 m g total) by mouth 2 (two) times a day [facility] Ascorbic Acid 226 MG / Beta Carotene 143 20 UNT / cuprous oxide 0.8 MG / dl-alpha tocopheryl acetate 200 UNT / Zinc Oxide 34.8 MG Oral Capsule [PreserVision] Multiple Vitamins-Minerals (PreserVision AREDS) CAPS Multiple Vitamins-Minerals (PreserVision AREDS) CAPS 11/16/2016 12:00:00 AM EDT Oral aborted Take by mouth [facility] Acetaminophen 325 MG / Hydrocodone Emilia trate 5 MG Oral Tablet HYDROcodone- acetaminophen (NORCO) 5-325 MG per tablet HYDROcodone-acetaminophen (NORCO) 5- 325 MG per tablet 0.5 {tbl} Oral aborted Take 0.5 tablets by mouth 2 (two) times a day [facility] gabapentin 100 MG Oral Capsule gabapentin (NEURONTIN) 100 MG capsule gabapentin (NEURONTIN) 100 MG capsule 200 mg Oral aborted Take 200 mg by mouth 2 (two) times a day [facility] Aspirin 81 MG Chewable Tablet aspirin 81 MG chewable t ablet aspirin 81 MG chewable tablet 81 mg Oral aborted Chew 81 mg daily [facility] Acetaminophen 325 MG / Oxycodone Hydroch loride 5 MG Oral Tablet oxyCODONE- acetaminophen (PERCOCET) 5-325 MG per tablet oxyCODONE-acetaminophen (PERCOCET) 5-325 MG per tablet {tbl} Oral aborted Take 1-2 tablets by mouth every 4 (four) hours as needed for pain [facility] Acetaminophen 325 MG / Hydrocodone Emilia trate 5 MG Oral Tablet HYDROcodone- acetaminophen (NORCO) 5-325 MG per tablet HYDROcodone-acetaminophen (NORCO) 5- 325 MG per tablet 0.5 {tbl} Oral aborted Take 0.5 tablets by mouth every 6 (six) hours as needed for pain [facility] doxycycline hyclate 100 MG Oral Tablet doxycycline ( BRA-TABS) 100 MG tablet doxycycline (VIBRA-TABS) 100 MG tablet 100 mg Oral aborted Take 100 mg by mouth 2 (two) times a day [facility] doxycycline anhydrous 40 MG Delayed Rele ase Oral Capsule doxycycline (ORACEA) 40 MG capsule doxycycline (ORACEA) 40 MG capsule 40 mg Oral aborted Take 40 mg by mouth every morning [facility] potassium chloride SA (K-DUR,KLOR-CON) 10 MEQ tablet [id number] 10 meq Oral aborted Take 10 mEq by mouth 2 (two) times a day [facility] Acetaminophen 325 MG / Hydrocodone Emilia trate 5 MG Oral Tablet HYDROcodone- acetaminophen (NORCO) 5-325 MG per tablet HYDROcodone-acetaminophen (NORCO) 5- 325 MG per tablet 0.5 {tbl} Oral aborted Take 0.5 tablets by mouth every 4 (four) hours as needed for pain [facility] Insurance Providers Payer name Policy type / Coverage type Policy ID Covered green party ID Covered green party's relationship to riley Policy Riley Plan Information Medicare (Part B) Medicare Primary [id number] Self 1 [id number] MEDICARE [id number] Perla [id number] Medicare (Part B) Medicare Primary [id number] Self Medicare (Part B) Medicare Primary [id number] Self 1 [id number] Medicare (Part B) Medicare Primary [id number] Self 1 [id number] Medicare (Part B) Medicare Primary [id number] Self [id number] Medicare (Part B) Medicare Primary [id number] Self 1 [id number] Medicare (Part B) Medicare Primary [id number] Self 1 [id number] Medicare (Part B) Medicare Primary [id number] Self [id number] Medicare (Part B) Medicare Primary [id number] Self 1 [id number] Medicare (Part B) Medicare Primary [id number] Self 1 [id number] Medicare Medicare Primary [id number] Self Medicare (Part B) Medicare Primary [id number] Self 1 [id number] MEDICARE COMPLETE [id number] SP [id number] [facility] Medicare Solutions F [id number] SELF [id number] [facility] Medicare Complete F [id number] SELF [id number] MEDICARE COMPLETE [id number] SP [id number] [employer] Medicare Commercial [id number] Self [id number] MEDICARE COMPLETE [id number] SP [id number] MEDICARE COMPLETE [id number] SP [id number] [facility] MEDICARE [id number] xxxxxxxxx [id number] [facility] MEDICARE [id number] Perla [id number] INSURANCE COVID-19 COVID19 Perla C OVID19 INSURANCE COVID-19 [id number] xxxxxxx [id number] INSURANCE COVID-19 [id number] xOVID [id number] INSURANCE COVID-19 COVID Perla C OVID INSURANCE COVID-19 COVID Perla C OVID INSURANCE COVID-19 [id number] xxxxx [id number] [facility]-Medicare Solutions Commercial [id number] Self [id number] ANSI-Not a Secondary Insurance [id number] ANSI-Not a Secondary Insurance [id number] ANSI-Not a Secondary Insurance [id number] ANSI-Not a Secondary Insurance [id number] MEDICARE [id number] SP [id number] ANSI-Not a Secondary Insurance [id number] ANSI-Not a Secondary Insurance [id number] MEDICARE [id number] SP [id number] A [facility] [id number] SP [id number] [facility] MEDICARE [id number] S [id number] UNITED HEALTHCARE O [id number] S [id number] UNITED HEALTHCARE [id number] SP [id number] UNITED HEALTHCARE [id number] SP [id number] UNITED [facility] [id number] SP [id number] [facility]-Medicare Solutions Commercial [id number] Self [id number] [place] Medicare Primary [id number] Self [id number] [facility] Medigap Part B [id number] Self [id number] [facility] O [id number] S [id number] MEDICARE C [id number] S [id number] A [facility] OPTIONS C [id number] S [id number] [facility] [id number] SP [id number] Medicare [place] Medicare Primary [id number] Self [id number] [facility] [id number] SP [id number] [facility]-Commercial Plan Medigap Part B [id number] Self [id number] Medicare [place] Medicare Primary [id number] Self [id number] Medicare [place] Medicare Primary [id number] Self [id number] [facility] O [id number] S [id number] [facility]-Commercial Plan Medigap Part B [id number] Self [id number] [place] 332/834 [id number] SP [id number] [place] BCBS B [id number] S [id number] [id number] [facility]-Commercial Plan Medigap Part B [id number] Self [id number] [facility]Commercial Plan [facility] [id number] Self [id number] [place] [facility] [id number] Self [id number] Medicare [place] Medicare Primary [id number] Self [id number] [place] 332/834 [id number] SP [id number] [place] 332/834 [id number] SP [id number] [employer] Blue Pref Medigap Part B [id number] Self BS [place] [id number] .[id number] Self Medicare [place] Medicare Primary .[id number] Self [place] BCBS Medigap Part B [id number] Self [place]BS [place] PPO 302/307 [id number] SP [id number] SELF PAY 2 UNAVAILABLE 1 UNAVAILA BLE BC BLUE CARD 1 [id number] UQVA [id number] MEDICARE COMPLETE [id number] SP [id number] A MEDICARE [id number] SP [id number] MEDICARE COMPLETE [id number] SP [id number] MEDICARE COMPLETE-[facility] [id number] S [id number] [facility] [id number] SP [id number] ANSI-Medicare Part B [id number] ANSI-Medicare Part B [id number] ANSI-Medicare Part B [id number] ANSI-Medicare Part B [id number] ANSI-Medicare Part B [id number] [facility] [id number] SP [id number] [facility]-Medicare Solutions Commercial [id number] Self [id number] [facility]-Medicare Solutions Commercial [id number] Self [id number] ANSI-Not a Secondary Insurance [id number] ANSI-Not a Secondary Insurance [id number] ANSI-Not a Secondary Insurance [id number] ANSI-Not a Secondary Insurance [id number] nk749n2 [id number]-2t63-kbn1-z0f73kd158a3 ANSI-Not a Secondary Insurance y495s540-rfhf-3i24-s199-57270 50n1em5 y104j366-wwye-1a87-r197-5078831x8bq9 ANSI-Not a Secondary Insurance 40857r0g-6t8l-40g7-4106-68td9 fs1fmhp 75265l0k-2b7f-93u2-5297-52dt9sr1kymc ANSI-Not a Secondary Insurance c1i04l4c-8664-195k-gm61-js18c z3mn253 m7w26l8e-1044-107l-fu35-ay86ne0ix378 ANSI-Not a Secondary Insurance 405i1dm9-5gw8-151t-1l3u-4n884 m76r25y 359v3xw5-9wa5-884f-5y0w-6x049h90d26f ANSI-Not a Secondary Insurance u7q94c6o-9m57-257y-q5a4-kdpq9 0o75q9e k0z77p5u-1t81-899i-a9o7-oggf14o08f6k ANSI-Not a Secondary Insurance n9h5z1c0-24j0-7px5-vha3-3itxn l10z001 x9x4t5x5-63p9-9dc1-eml1-8hkopp86d579 [employer] [id number] Self [id number] [employer] [id number] Self [id number] ANSI-Not a Secondary Insurance c4dsswdc-d362-97is-ce06-04ox0 1es487s p6scbkon-x237-58ur-om87-38xg46gd780e ANSI-Not a Secondary Insurance 38ai8og6-2209-433t-7229-956a8 27g0vh5 [id number] [employer] Commercial [id number] Self [id number] Problems, Conditions, and Diagnoses Code Display Name Description Problem Type Effective Dates Data Source(s) B99.9 Unspecified infectious disease Unspecified infectious disease Diagnosis 04/14/2021 02:07:17 PM EDT [facility] T82.7XXD Infection and inflammatory r eaction due to other cardiac and vascular devices, implants and grafts, subsequent encounter Infection and inflammatory reaction due Diagnosis 04/06/2021 10:05:55 AM EDT [facility] A49.8 Other bacterial infections of unspecifie d site Other bacterial infections of unspecifie Diagnosis 04/06/2021 10:05:55 AM EDT [facility] T81.30XA Disruption of wound, unspecified, initia l encounter Disruption of wound, unspecified, initia Diagnosis 03/10/2021 02:00:[address] [facility] T81.31XA Disruption of external opera tion (surgical) wound, not elsewhere classified, initial encounter Disruption of external operation (surgic Diagnosis 03/10/2021 02:00:00 PM EDT [facility] I99.8 Other disorder of circulatory system Other disor stefan of circulatory system Diagnosis 01/25/2021 01:40:00 PM EDT [facility] I73.9 Peripheral vascular disease, unspecified Peripheral vascular disease, unspecified Diagnosis 01/25/2021 01:40:00 PM EDT [facility] J98.8 Other specified respiratory disorders Ot her specified respiratory disorders Diagnosis 04/23/2020 10:09:37 AM EDT [facility] U07.1 COVID-19 COVID-19 Diagnosis 04/23/2020 10:09:37 AM ED T [facility] 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, left leg Atherosclerosis of [place] arteries of ex Diagnosis 04/23/2020 10:08:35 AM EDT [facility] 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 [id number] 05/14/2021 12:00:00 AM EDT [facility] G45.9 [id number] TIA (transient ischemic attack) Problem 04/23/2021 12:00:00 AM EDT [facility] [id number] 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 Infection by B acteroides fragilis Problem 03/13/2021 12:00:00 AM EDT [facility] ([facility]) A49.8 Bacteroides fragilis infection Bacteroides fragilis in fection [id number] 03/13/2021 12:00:00 AM EDT [facility] 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 Prob jet 03/12/2021 12:00:00 AM EDT [facility] ([facility]) [id number] Body temperature above reference range B dwaine temperature above reference range Problem 03/12/2021 12:00:00 AM EDT [facility] R50.9 Temperature elevation Temperature elevation [id number] 03/12/2021 12:00:00 AM EDT [facility] T82.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 6457 200003/12/2021 12:00:00 AM EDT [facility] [id number] Wound dehiscence Wound dehiscence Problem 03/11/2021 12 :00:00 AM EDT [facility] ([facility]) [id number] Atherosclerosis of arteries of the extre mities Atherosclerosis of arteries of the extremities Problem 03/11/2021 12:00:00 AM EDT [facility] ([facility]) D64.9 Anemia Anemia [id number] 03/11/2021 12:00:00 AM ED T [facility] K21.9 GERD (gastroesophageal reflux disease) G ERD (gastroesophageal reflux disease) [id number] 03/11/2021 12:00:00 AM EDT [facility] E78.5 Hyperlipidemia Hyperlipidemia [id number] 03/11/2021 12:00: 00 AM EDT [facility] I10 Hypertension Hypertension [id number] 03/11/2021 12:00:00 A M EDT [facility] I73.9 Peripheral vascular disease Peripheral vascular diseas e [id number] 03/11/2021 12:00:00 AM EDT [facility] 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 Metzger [id number] Pain in left lower limb Pain in left lower limb Proble m 01/25/2021 12:00:00 AM EDT [facility] ([facility]) [id number] Hypertensive disorder Hypertensive disorder Problem 01/25/2021 12:00:00 AM EDT [facility] ([facility]) [id number] Hyperlipidemia Hyperlipidemia Problem 01/25/2021 12:00: 00 AM EDT [facility] ([facility]) I25.10 Coronary artery disease Coronary artery disease [id number] 01/25/2021 12:00:00 AM EDT [facility] M79.605 Lower extremity pain, left Lower extremity pain, left [id number] 01/25/2021 12:00:00 AM EDT [facility] [id number] Ischemia of left lower extremity Ischemi a of left lower extremity Problem 12/24/2020 12:00:00 AM EDT [facility] ([facility] Note: Overview: 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 [id number] Anemia Anemia Problem 12/24/2020 12:00:00 AM ED T [facility] ([facility]) I99.8 Ischemia of left lower extremity Ischemia of lef t lower extremity [id number] 12/24/2020 12:00:00 AM EDT [facility] [id number] Peripheral vascular disease Peripheral vascular diseas e Problem 10/20/2020 12:00:00 AM EDT [facility] ([facility]) Surgeries/Procedures Procedure Description Date Indications Data Source(s) BLOOD COUNT COMPLETE AUTOMATED <td>CBC</td><td>Timed</ td><td>03/18/2021 5:08 AM EDT</td><td></td><td> </td> 03/18/2021 05:08:00 AM EDT [facility] BASIC METABOLIC PANEL CALCIUM TOTAL <td>BASIC METABOLI C PANEL</td><td>Timed</td><td>03/18/2021 5:08 AM EDT</td><td></td><td> </td> 03/18/2021 05:08:00 AM EDT [facility] BLOOD COUNT COMPLETE AUTOMATED <td>CBC</td><td>Timed</ td><td>03/16/2021 8:33 AM EDT</td><td></td><td> </td> 03/16/2021 08:33:00 AM EDT [facility] MAGNESIUM <td>MAGNESIUM</td><td>Timed< /td><td>03/16/2021 8:33 AM EDT</td><td></td><td> </td> 03/16/2021 08:33:00 AM EDT [facility] BASIC METABOLIC PANEL CALCIUM TOTAL <td>BASIC METABOLI C PANEL</td><td>Timed</td><td>03/16/2021 8:33 AM EDT</td><td></td><td> </td> 03/16/2021 08:33:00 AM EDT [facility] WOUND OSTOMY EVAL AND TREAT <td>WOUND OSTOMY EVAL AND TREAT</td><td>Routine</td><td>03/15/2021 7:04 AM EDT</td><td></td><td></td> 03/15/2021 07:04:38 AM EDT [facility] BLOOD COUNT COMPLETE AUTOMATED <td>CBC</td><td>Timed</ td><td>03/15/2021 5:53 AM EDT</td><td></td><td> </td> 03/15/2021 05:53:00 AM EDT [facility] BASIC METABOLIC PANEL CALCIUM TOTAL <td>BASIC METABOLI C PANEL</td><td>Timed</td><td>03/15/2021 5:53 AM EDT</td><td></td><td> </td> 03/15/2021 05:53:00 AM EDT [facility] DRUG SCREEN QUALITATIVE VANCOMYCIN <td>VANCOMYCIN, TROUGH</td><td>STAT</td><td>03/14/2021 10:42 AM EDT</td><td></td><td> </td> 03/14/2021 10:42:00 AM EDT [facility] BASIC METABOLIC PANEL CALCIUM TOTAL <td>BASIC METABOLI C PANEL</td><td>STAT</td><td>03/14/2021 7:31 AM EDT</td><td></td><td> </td> 03/14/2021 07:31:00 AM EDT [facility] BLOOD COUNT COMPLETE AUTOMATED <td>CBC</td><td>STAT</t d><td>03/14/2021 7:31 AM EDT</td><td></td><td> </td> 03/14/2021 07:31:00 AM EDT [facility] BLOOD COUNT HEMOGLOBIN <td>HEMOGLOBIN AND HEMATOCRI T, BLOOD</td><td>STAT</td><td>03/12/2021 6:29 PM EDT</td><td></td><td> </td> 03/12/2021 06:29:00 PM EDT [facility] BLOOD COUNT COMPLETE AUTOMATED <td>CBC</td><td>Routine </td><td>03/12/2021 4:17 AM EDT</td><td></td><td> </td> 03/12/2021 04:17:00 AM EDT [facility] DRUG SCREEN QUALITATIVE VANCOMYCIN <td>VANCOMYCIN, TRO UGH</td><td>Add- On</td><td>03/12/2021 4:17 AM EDT</td><td></td><td> </td> 03/12/2021 04:17:00 AM EDT [facility] BASIC METABOLIC PANEL CALCIUM TOTAL <td>BASIC METABOLI C PANEL</td><td>Routine</td><td>03/12/2021 4:17 AM EDT</td><td></td><td> </td> 03/12/2021 04:17:00 AM EDT [facility] TRANSFUSE RED BLOOD CELLS <td>TRANSFUSE RED BLOOD CELLS</td><td>Routine</td><td>03/12/2021 1:20 AM EDT</td><td></td><td></td> 03/12/2021 01:20:00 AM EDT [facility] BLOOD COUNT COMPLETE AUTOMATED <td>CBC</td><td>STAT</t d><td>03/11/2021 9:13 PM EDT</td><td></td><td> </td> 03/11/2021 09:13:00 PM EDT [facility] CUL BACT XCPT URINE BLOOD/STOOL AEROBIC ISOL <td>WOUND CULTURE</td><td>Routine</td><td>03/11/2021 2:30 PM EDT</td><td></td><td> </td> 03/11/2021 02:30:00 PM EDT [facility] CUL BACT XCPT URINE BLOOD/STOOL AEROBIC ISOL <td>AEROB IC FLUID CULTURE / GS</td><td>Routine</td><td>03/11/2021 2:30 PM EDT</td><td></td><td> </td> 03/11/2021 02:30:00 PM EDT [facility] CULTURE TUBERCLE/OTH ACID-FAST BACILLI ANY ISOL <td>AF B SMEAR+CULTURE</td><td>Routine</td><td>03/11/2021 2:30 PM EDT</td><td></td><td></td> 03/11/2021 02:30:[address] [facility] CULTURE FNGI MOLD/YEAST PRSMPTV OTH XCPT BLOOD <td>FUN GAL CULTURE, NON BLOOD</td><td>Routine</td><td>03/11/2021 2:30 PM EDT</td><td></td><td></td> 03/11/2021 02:30:00 PM EDT [facility] CULTURE BACTERIAL ANY SOURCE ANAEROBIC ISO&ID <td>ANAE ROBIC CULTURE</td><td>Routine</td><td>03/11/2021 2:30 PM EDT</td><td></td><td> </td> 03/11/2021 02:30:00 PM EDT [facility] REPAIR, ANEURYSM, ARTERY, FEMORAL <td>REPAIR, ANEURYSM , ARTERY, FEMORAL</td><td></td><td>03/11/2021 1:41 PM EDT</td><td> LEFT GROIN INFECTION</td><td></td> 03/11/2021 01:41:00 PM EDT - 03/11/2021 03:53:00 PM EDT [facility] LEVEL IV SURG PATHOLOGY GROSS&MICROSCOPIC EXAM <td>[facility] HISTOLOGY</td><td>Routine</td><td>03/11/2021 9:55 AM EDT</td><td></td><td> </td> 03/11/2021 09:55:00 AM EDT [facility] BLOOD COUNT COMPLETE AUTOMATED <td>CBC</td><td>Routine </td><td>03/11/2021 7:42 AM EDT</td><td></td><td> </td> 03/11/2021 07:42:00 AM EDT [facility] BASIC METABOLIC PANEL CALCIUM TOTAL <td>BASIC METABOLI C PANEL</td><td>Routine</td><td>03/11/2021 7:42 AM EDT</td><td></td><td> </td> 03/11/2021 07:42:00 AM EDT [facility] EXCISION INFECTED GRAFT EXTREMITY 03/11/2021 12:00:00 AM EDT [facility] ([facility]) Adj Tissue Tranfser Any Area; Defect 30.1 SQ CM To 60.0 SQ C M 03/11/2021 12:00:00 AM EDT [facility] ([facility]) COVID/FLU AB/RSV PCR <td>COVID/FLU AB/RSV PCR</td ><td>STAT</td><td>03/10/2021 4:55 PM EDT</td><td></td><td> </td> 03/10/2021 04:55:00 PM EDT [facility] XR CHEST PORTABLE <td>XR CHEST PORTABLE</td><t d>Routine</td><td>03/10/2021 4:54 PM EDT</td><td></td><td> </td> 03/10/2021 04:54:20 PM EDT [facility] IADNA S AUREUS METHICILLIN RESIST AMP PROBE TQ <td>MRS A SCREEN BY PCR</td><td>Routine</td><td>03/10/2021 4:45 PM EDT</td><td></td><td> </td> 03/10/2021 04:45:00 PM EDT [facility] CUL BACT XCPT URINE BLOOD/STOOL AEROBIC ISOL <td>WOUND CULTURE</td><td>Routine</td><td>03/10/2021 4:30 PM EDT</td><td></td><td> </td> 03/10/2021 04:30:00 PM EDT [facility] CULTURE BACTERIAL ANY SOURCE ANAEROBIC ISO&ID <td>ANAE ROBIC CULTURE</td><td>Routine</td><td>03/10/2021 4:30 PM EDT</td><td></td><td> </td> 03/10/2021 04:30:00 PM EDT [facility] CULTURE BACTERIAL BLOOD AEROBIC W/ID ISOLATES <td>BLOO D CULTURE</td><td>Routine</td><td>03/10/2021 3:35 PM EDT</td><td></td><td> </td> 03/10/2021 03:35:00 PM EDT [facility] CULTURE BACTERIAL BLOOD AEROBIC W/ID ISOLATES <td>BLOO D CULTURE</td><td>Routine</td><td>03/10/2021 3:35 PM EDT</td><td></td><td> </td> 03/10/2021 03:35:00 PM EDT [facility] THROMBOPLASTIN TIME PARTIAL PLASMA/WHOLE BLOOD <td>APTT</td><td>Routine</td><td>03/10/2021 3:35 PM EDT</td><td></td><td> </td> 03/10/2021 03:35:00 PM EDT [facility] PROTHROMBIN TIME <td>PROTIME-INR</td><td>Rout ine</td><td>03/10/2021 3:35 PM EDT</td><td></td><td> </td> 03/10/2021 03:35:00 PM EDT [facility] BLOOD TYPING ABO <td>TYPE AND SCREEN</td><td> Routine</td><td>03/10/2021 3:35 PM EDT</td><td></td><td> </td> 03/10/2021 03:35:00 PM EDT [facility] COMPREHENSIVE METABOLIC PANEL <td>COMPREHENSIVE METABO LIC PANEL</td><td>Routine</td><td>03/10/2021 3:35 PM EDT</td><td></td><td> </td> 03/10/2021 03:35:00 PM EDT [facility] OFFICE OUTPATIENT VISIT 40 MINUTES 03/10/2021 12:00:00 AM EDT [facility] ([facility]) DUPLEX SCAN EXTRACRANIAL ART COMPL BI STUDY 03/01/2021 12:00:00 AM EDT [facility] ([facility]) OFFICE OUTPATIENT VISIT 25 MINUTES 03/01/2021 12:00:00 AM EDT [facility] ([facility]) OFFICE OUTPATIENT VISIT 15 MINUTES 02/19/2021 12:00:00 AM EDT [facility] ([facility]) Fem-Pop Angioplasty/Stent 01/28/2021 12:00:00 AM EDT [facility] ([facility]) Moderate Sedation Services; Same Phys Intl 15 Mins; PT >= 5 Years 01/28/2021 12:00:00 AM EDT [facility] ([facility]) Moderate Sedation Services; Same Phys Intl 15 Mins; PT >= 5 Years 01/26/2021 12:00:00 AM EDT [facility] ([facility]) Femoral-Popliteal Angioplasty 01/26/2021 12:00:00 AM E DT [facility] ([facility]) Femoral-Popliteal Angioplasty 01/26/2021 12:00:00 AM E DT [facility] ([facility]) Electrocardiogram Tracing Only 01/25/2021 12:00:00 AM EDT [facility] ([facility]) DUP-SCAN LXTR ART/ARTL BPGS COMPL BI STUDY 01/20/2021 12:00:00 AM EDT [facility] ([facility]) BLOOD COUNT COMPLETE AUTOMATED <td>CBC</td><td>Routine </td><td>12/26/2020 6:18 AM EDT</td><td></td><td> </td> 12/26/2020 06:18:00 AM EDT [facility] BASIC METABOLIC PANEL CALCIUM TOTAL <td>BASIC METABOLI C PANEL</td><td>Routine</td><td>12/26/2020 6:18 AM EDT</td><td></td><td> </td> 12/26/2020 06:18:00 AM EDT [facility] ANGIOGRAPHY EXTREMITY UNILATERAL RS&I <td>IR IS ARTERI OGRAM EXTREMITY SINGLE LEFT</td><td>Routine</td><td>12/25/2020 12:36 PM EDT</td><td></td><td> </td> 12/25/2020 12:36:59 PM EDT [facility] THROMBOPLASTIN TIME PARTIAL PLASMA/WHOLE BLOOD <td>APTT</td><td>STAT</td><td>12/25/2020 2:17 AM EDT</td><td></td><td> </td> 12/25/2020 02:17:00 AM EDT [facility] BLOOD COUNT COMPLETE AUTOMATED <td>CBC</td><td>Routine </td><td>12/25/2020 2:17 AM EDT</td><td></td><td> </td> 12/25/2020 02:17:00 AM EDT [facility] BASIC METABOLIC PANEL CALCIUM TOTAL <td>BASIC METABOLI C PANEL</td><td>Routine</td><td>12/25/2020 2:17 AM EDT</td><td></td><td> </td> 12/25/2020 02:17:00 AM EDT [facility] Fem-Pop Angioplasty/Stent 12/25/2020 12:00:00 AM EDT [facility] ([facility]) Angiography-Extremity Unilateral 12/25/2020 12:00:00 A M EDT [facility] ([facility]) Moderate Sedation Services; Same Phys Intl 15 Mins; PT >= 5 Years 12/25/2020 12:00:00 AM EDT [facility] ([facility]) THROMBOPLASTIN TIME PARTIAL PLASMA/WHOLE BLOOD <td>APTT</td><td>STAT</td><td>12/24/2020 11:29 PM EDT</td><td></td><td> </td> 12/24/2020 11:29:00 PM EDT [facility] NT PRO BNP <td>NT PRO BNP</td><td>Routi ne</td><td>12/24/2020 12:01 PM EDT</td><td></td><td> </td> 12/24/2020 12:01:00 PM EDT [facility] THROMBOPLASTIN TIME PARTIAL PLASMA/WHOLE BLOOD <td>APTT</td><td>Routine</td><td>12/24/2020 12:01 PM EDT</td><td></td><td> </td> 12/24/2020 12:01:00 PM EDT [facility] PROTHROMBIN TIME <td>PROTIME-INR</td><td>Rout ine</td><td>12/24/2020 12:01 PM EDT</td><td></td><td> </td> 12/24/2020 12:01:00 PM EDT [facility] BLOOD COUNT COMPLETE AUTOMATED <td>CBC</td><td>STAT</t d><td>12/24/2020 12:01 PM EDT</td><td></td><td> </td> 12/24/2020 12:01:00 PM EDT [facility] BLOOD TYPING ABO <td>TYPE AND SCREEN</td><td> Routine</td><td>12/24/2020 12:01 PM EDT</td><td></td><td> </td> 12/24/2020 12:01:00 PM EDT [facility] COMPREHENSIVE METABOLIC PANEL <td>COMPREHENSIVE METABO LIC PANEL</td><td>STAT</td><td>12/24/2020 12:01 PM EDT</td><td></td><td> </td> 12/24/2020 12:01:00 PM EDT [facility] COVID/FLU AB/RSV PCR <td>COVID/FLU AB/RSV PCR</td ><td>STAT</td><td>12/24/2020 11:06 AM EDT</td><td></td><td> </td> 12/24/2020 11:06:00 AM EDT [facility] EAR IRRIGATION 12/21/2020 12:00:[address] [facility] DUP-SCAN LXTR ART/ARTL BPGS UNI/LMTD STUDY 12/17/2020 12:00:00 AM EDT [facility] ([facility]) DUP-SCAN LXTR ART/ARTL BPGS UNI/LMTD STUDY 12/17/2020 12:00:00 AM EDT [facility] ([facility]) BLOOD COUNT COMPLETE AUTOMATED <td>CBC</td><td>Timed</ td><td>10/21/2020 6:20 AM EDT</td><td></td><td> </td> 10/21/2020 10:20:00 AM EDT [facility] BASIC METABOLIC PANEL CALCIUM TOTAL <td>BASIC METABOLI C PANEL</td><td>Routine</td><td>10/21/2020 6:20 AM EDT</td><td></td><td> </td> 10/21/2020 10:20:00 AM EDT [facility] TRANSFUSE PLATELETS <td>TRANSFUSE PLATELETS</td> <td>Routine</td><td>10/20/2020 1:02 PM EDT</td><td></td><td></td> 10/20/2020 05:02:33 PM EDT [facility] TRANSFUSE RED BLOOD CELLS <td>TRANSFUSE RED BLOOD CELLS</td><td>Routine</td><td>10/20/2020 11:23 AM EDT</td><td></td><td></td> 10/20/2020 03:23:43 PM EDT [facility] PREPARE PLATELETS <td>PREPARE PLATELETS</td><t d>STAT</td><td>10/20/2020 11:10 AM EDT</td><td></td><td> </td> 10/20/2020 03:10:00 PM EDT [facility] CREATION, BYPASS, ARTERIAL, FEMORAL TO TIBIAL <td>CREA TION, BYPASS, ARTERIAL, FEMORAL TO TIBIAL</td><td></td><td>10/20/2020 8:25 AM EDT</td><td> ISCHEMIC LEFT LEG</td><td></td> 10/20/2020 12:25:00 PM EDT - 10/20/2020 04:23:00 PM EDT [facility] GLUC BLD GLUC MNTR DEV CLEARED FDA SPEC HOME USE <td>P OCT GLUCOSE</td><td>Routine</td><td>10/20/2020 6:44 AM EDT</td><td></td><td> </td> 10/20/2020 10:44:00 AM EDT [facility] BLOOD TYPING ABO <td>TYPE AND SCREEN</td><td> Routine</td><td>10/19/2020 8:59 PM EDT</td><td></td><td> </td> 10/20/2020 12:59:00 AM EDT [facility] THROMBOPLASTIN TIME PARTIAL PLASMA/WHOLE BLOOD <td>APTT</td><td>Routine</td><td>10/19/2020 8:58 PM EDT</td><td></td><td> </td> 10/20/2020 12:58:00 AM EDT [facility] PROTHROMBIN TIME <td>PROTIME-INR</td><td>Rout ine</td><td>10/19/2020 8:58 PM EDT</td><td></td><td> </td> 10/20/2020 12:58:00 AM EDT [facility] BLOOD COUNT COMPLETE AUTOMATED <td>CBC</td><td>Routine </td><td>10/19/2020 8:58 PM EDT</td><td></td><td> </td> 10/20/2020 12:58:00 AM EDT [facility] MAGNESIUM <td>MAGNESIUM</td><td>Routin e</td><td>10/19/2020 8:58 PM EDT</td><td></td><td> </td> 10/20/2020 12:58:00 AM EDT [facility] COMPREHENSIVE METABOLIC PANEL <td>COMPREHENSIVE METABO LIC PANEL</td><td>Routine</td><td>10/19/2020 8:58 PM EDT</td><td></td><td> </td> 10/20/2020 12:58:00 AM EDT [facility] Bypass Graft Other Than Vein Femoral-Popliteal 021 12:00:00 AM EDT [facility] ([facility]) Reoperation Distal Vessels > 1 Mo After Orig SX 2020 12:00:00 AM EDT [facility] ([facility]) COVID/FLU AB/RSV PCR <td>COVID/FLU AB/RSV PCR</td ><td>STAT</td><td>10/19/2020 12:31 PM EDT</td><td></td><td> </td> 10/19/2020 04:31:00 PM EDT [facility] ECG ROUTINE ECG W/LEAST 12 LDS TRCG ONLY W/O I&R <td>E CG 12- LEAD</td><td>Routine</td><td>10/19/2020 12:10 PM EDT</td><td></td><td></td> 10/19/2020 04:10:47 PM EDT [facility] DUP-SCAN LXTR ART/ARTL BPGS UNI/LMTD STUDY 10/01/2020 12:00:00 AM EST [facility] ([facility]) DUP-SCAN LXTR ART/ARTL BPGS UNI/LMTD STUDY 10/01/2020 12:00:00 AM EST [facility] ([facility]) Spirometry 08/11/2020 12:00:00 AM EST [facility] ([facility] ) DUP-SCAN LXTR ART/ARTL BPGS UNI/LMTD STUDY 07/08/2020 12:00:00 AM EST [facility] ([facility]) DUP-SCAN LXTR ART/ARTL BPGS UNI/LMTD STUDY 07/08/2020 12:00:00 AM EST [facility] ([facility]) BLOOD COUNT COMPLETE AUTOMATED <td>CBC</td><td>Timed</ td><td>05/01/2020 6:30 AM EDT</td><td></td><td> </td> 05/01/2020 10:30:00 AM EDT [facility] BASIC METABOLIC PANEL CALCIUM TOTAL <td>BASIC METABOLI C PANEL</td><td>Timed</td><td>05/01/2020 6:30 AM EDT</td><td></td><td> </td> 05/01/2020 10:30:00 AM EDT [facility] BLOOD COUNT COMPLETE AUTOMATED <td>CBC</td><td>Timed</ td><td>04/30/2020 6:08 AM EDT</td><td></td><td> </td> 04/30/2020 10:08:00 AM EDT [facility] BASIC METABOLIC PANEL CALCIUM TOTAL <td>BASIC METABOLI C PANEL</td><td>Timed</td><td>04/30/2020 6:08 AM EDT</td><td></td><td> </td> 04/30/2020 10:08:00 AM EDT [facility] COMPREHENSIVE METABOLIC PANEL <td>COMPREHENSIVE METABO LIC PANEL</td><td>Routine</td><td>04/29/2020 6:05 AM EDT</td><td></td><td> </td> 04/29/2020 10:05:00 AM EDT [facility] POC ARTERIAL BLOOD GAS W LYTES <td>POC ARTERIAL BLOOD GAS W LYTES</td><td>Routine</td><td>04/28/2020 11:37 AM EDT</td><td></td><td> </td> 04/28/2020 03:37:00 PM EDT [facility] FLUOROSCOPY SPX <1 HOUR PHYSICIAN TIME <td>XR FLUORO U P TO 1 HR</td><td>Routine</td><td>04/28/2020 10:39 AM EDT</td><td></td><td> </td> 04/28/2020 02:39:27 PM EDT [facility] BYP OTH/THN VEIN FEMORAL-POPLITEAL <td>CREATION, BYPAS S, ARTERIAL, FEMORAL TO POPLITEAL, USING GRAFT</td><td></td><td>04/28/2020 7:58 AM EDT</td><td> Atherosclerosis of [place] arteries of extremities with rest pain, left leg</td><td></td> 04/28/2020 11:58:00 AM EDT - 04/28/2020 03:13:00 PM ED T Atherosclerosis of [place] arteries of extremities with rest pain, left leg [facility] Atherosclerosis of [place] arteries of ex tremities with rest pain, left leg GLUC BLD GLUC MNTR DEV CLEARED FDA SPEC HOME USE <td>P OCT GLUCOSE</td><td>Routine</td><td>04/28/2020 6:50 AM EDT</td><td></td><td> </td> 04/28/2020 10:50:00 AM EDT [facility] BLOOD TYPING ABO <td>PREPARE RBC</td><td>Rout ine</td><td>04/28/2020 12:01 AM EDT</td><td></td><td> </td> 04/28/2020 04:01:00 AM EDT [facility] Bypass Graft Other Than Vein Femoral-Popliteal 020 12:00:00 AM EDT [facility] ([facility]) PROTHROMBIN TIME <td>PROTIME-INR</td><td>Rout ine</td><td>04/23/2020 11:20 AM EDT</td><td> Atherosclerosis of [place] arteries of extremities with rest pain, left leg</td><td> </td> 04/23/2020 03:20:00 PM EDT Atherosclerosis of [place] arteries of ex tremities with rest pain, left leg [facility] Atherosclerosis of [place] arteries of ex tremities with rest pain, left leg BLOOD COUNT COMPLETE AUTOMATED <td>CBC</td><td>Routine </td><td>04/23/2020 11:20 AM EDT</td><td> Atherosclerosis of [place] arteries of extremities with rest pain, left leg</td><td> </td> 04/23/2020 03:20:00 PM EDT Atherosclerosis of [place] arteries of ex tremities with rest pain, left leg [facility] Atherosclerosis of [place] arteries of ex tremities with rest pain, left leg BLOOD TYPING ABO <td>TYPE AND SCREEN</td><td> Routine</td><td>04/23/2020 11:20 AM EDT</td><td> Atherosclerosis of [place] arteries of extremities with rest pain, left leg</td><td> </td> 04/23/2020 03:20:00 PM EDT Atherosclerosis of [place] arteries of ex tremities with rest pain, left leg [facility] Atherosclerosis of [place] arteries of ex tremities with rest pain, left leg COMPREHENSIVE METABOLIC PANEL <td>COMPREHENSIVE METABO LIC PANEL</td><td>Routine</td><td>04/23/2020 11:20 AM EDT</td><td> Atherosclerosis of [place] arteries of extremities with rest pain, left leg</td><td> </td> 04/23/2020 03:20:00 PM EDT Atherosclerosis of [place] arteries of ex tremities with rest pain, left leg [facility] Atherosclerosis of [place] arteries of ex tremities with rest pain, left leg ECG ROUTINE ECG W/LEAST 12 LDS TRCG ONLY W/O I&R <td>E CG 12- LEAD</td><td>Routine</td><td>04/23/2020 11:13 AM EDT</td><td> Atherosclerosis of [place] arteries of extremities with rest pain, left leg</td><td></td> 04/23/2020 03:13:33 PM EDT Atherosclerosis of [place] a rteries of extremities with rest pain, left leg [facility] Atherosclerosis of [place] arteries of ex tremities with rest pain, left leg Results ID Date Data Source [id number] 04/01/2021 05:44:26 PM EDT [facility] INFORMATIONPatient MRN Name Date of Age Gend*PT [id number] Nguyen Ibarra 1935 85 years F IPPT Location Admission Date/Time Visit ID Attending [id number] 03/10/21 1400 --- --- EPI ID CSN Admitting Provider [id number] Isabella Sparrow MD([id number]) [place] [address] OPERATIVE REPORT OPNAME: NGUYEN IBARRA#: [id number] #: [id number] ADMISSION DATE: 03/10/2021OB: 1935 SEX: F PT TYPE: I VascACCT #: [id number] CARE PHYSICIAN: HUGH FINNTE OF OPERATION: 03/11/2021REOPERATIVE DIAGNOSIS:Left groin infection.POSTOPERATIVE DIAGNOSIS:Left groin infection.PROCEDURES PERFORMED:1. Left groin exploration. 2. Removal of old left femoral to popliteal graft partially.3. Left adductor and sartorius flap placement.4. Pulsavac irrigation.SURGEON:Isabella Sparrow MDASSISTANT:JANICE WeaverTHESIA:General.ESTIMATED BLOOD LOSS:100 mL.COMPLICATIONS:None.SPECIMENS:Tissue for cultures and sensitivity and old fem- pop graft.INDICATIONS:This is an 85-year-old lady who presented with purulent drainage from theright groin and was found to have an exposed old femoral to poplitealbypass, which is occluded, but a working cross fem bypass next to it andwas planned for exploration and possible groin flap.DESCRIPTION OF PROCEDURE:After explaining the procedure to the patient, taking written consent,patient was taken to the operating room. Patient was placed under generalanesthesia by the anesthesia staff. The left groin was thoroughlyirrigated. It was visualized that the femoral to popliteal bypass wasexposed. I extended the incision into the thigh. The cross fem bypass wasalso proximally exposed. I transected the graft right next to theanastomosis from the cross fem graft and distally pulled the graft,clamped, and transected it. Both ends were tied with 3-0 Prolene, so theyare not exposed in that area. As the patient's cross fem graft is a littlehigh, I mobilized the sartorius and some adductor muscles around. A 15 x 3x 3 cm flap was all mobilized, flap lateral to medial. Gentle extensionswere done so that they can gently cover over the cross fem bypass. Graftmuscle was all viable and oozing at the cut edges. Thorough irrigationwith Pulsavac was done. It was confirmed that the whole area is covered.I did place 2 nylon sutures higher up so as to the area right underneaththe cross fem graft is covered, after which hemostasis was confirmed. ABetadine-soaked Kerlix was placed. The patient was woken up and brought torecovery room in stable condition. I was present throughout the case.REINA Benavides/NTS Job #: [id number] DOC #: [id number]: Primary Care Physician and Consultants Name Value Range Interpretation Code Description Data Lavinia rce(s) Supporting Document(s) ID Date Data Source [id number] 03/18/2021 05:21:24 PM EDT [facility] INFORMATIONPatient MRN Name Date of Age Gend*PT [id number] Nguyen Ibarra 1935 85 years F IPPT Location Admission Date/Time Visit ID Attending [id number] 03/10/21 1400 --- --- EPI ID CSN Admitting Provider [id number] Isabella Sparrow MD([id number]) Attestation signed by Isabella Sparrow MD at 03/18/2021 5:21 PMI saw and evaluated the patient and reviewed note. I agree with the history,physical and medical decision makingSignature: HANG Hongate: March 18, 2021Time: 5:21 PM --Surgical Discharge Summarymauricio IbarraN: [id number] date: dmitting Physician: HANG Hongischarge date and time:Discharge Orders Placed(From admission, onward) Start Ordered 03/17/21 1133 Discharge patient OnceComments: DC home with daughter in the morning after meropenum dose,Expected Discharge Date: 03/18/21Discharge Disposition: Home or Self Care 03/17/21 1148Discharge Physician: Debra Khan Diagnosis: Wound dehiscenceSecondary Diagnoses:Active Hospital Problems Diagnosis Date Noted Bacteroides fragilis infection 03/13/2021 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 Temperature elevation 03/12/2021 Left groin wound ulcer with graft exposure 03/11/2021 Atherosclerosis of left lower extremity with ulceration of calf left03/11/2021 Lower extremity pain, left 01/25/2021 GERD (gastroesophageal reflux disease) Hyperlipidemia Hypertension Anemia Peripheral vascular disease COPD (chronic obstructive pulmonary disease) 11/03/2016Resolved Hospital ProblemsNo resolved problems to display.Discharge Medications:Your medication listSTART taking these medications Instructions Last Dose Given Morning Afternoon Evening Bedtime As NeededBiopatch (Dressing) MiscGeneric drug: Chlorhexidine Gluconate Apply to PICC insertion site weekly and PRN with dressing change, may dispenseAMDheparin 100 UNIT/ML Soln Infuse 5 mL (500 Units total) into a venous catheter See Admin InstructionsAfter dose and as neededmeropenem 1 g injectionCommonly known as: MERREM Infuse 1g IV Q8h until ///12Saline Flush 0.9 % Soln 10ml IV before and after dose and b lood drawsCHANGE how you take these medications Instructions Last Dose Given Morning Afternoon Evening Bedtime As NeededoxyCODONE-acetaminophen 5-325 MG per tabletCommonly known as: PERCOCETWhat changed: how much to take when to take this Take 0.5-1 tablets by mouth every 8 (eight) hours as needed for pain Max DailyAmount: 3 tabletsCONTINUE taking these medications Instructions Last Dose Given Morning Afternoon Evening Bedtime As Neededalbuterol 108 (90 Base) MCG/ACT inhalerCommonly known as: PROVENTIL HFA;VENTOLIN HFA Inhale 2 puffs 4 (four) times a day as needed for wheezingaspirin EC 81 MG EC tablet Take 81 mg by mouth daily03/18atorvastatin 40 MG tabletCommonly known as: LIPITOR Take 40 mg by mouth nightlyarvedilol 3.125 MG tabletCommonly known as: COREG Take 3.125 mg by mouth 2 (two) times a dayholecalciferol 25 MCG (1000 UT) capsuleCommonly known as: VITAMIN D3 Take 1,000 Units by mouth nightlylopidogrel 75 MG tabletCommonly known as: PLAVIX Take 75 mg by mouth daily03/18collagenase ointment Apply topically daily03/18docusate sodium 100 MG capsuleCommonly known as: COLACE Take 100 mg by mouth daily03/17ferrous sulfate 325 (65 FE) MG tablet Take 325 mg by mouth da ily03/18fluticasone-salmeterol 500-50 MCG/DOSE DISKUSCommonly known as: ADVAIR Inhale 1 puff 2 (two) times a dayfurosemide 20 MG tabletCommonly known as: LASIX Take 20 mg by mouth daily03/18gabapentin 100 MG capsuleCommonly known as: NEURONTIN Take 200 mg by mouth 2 (two) times a dayipratropium- albuterol 0.5-2.5 mg/mL nebulizerCommonly known as: DUO-NEB Inhale 3 mL every 6 (six) hours as needed (for shortness of breath)lisinopril 2.5 MG tabletCommonly known as: PRINIVIL,ZESTRIL Take 2.5 mg by mouth nightly03/17nitroglycerin 0.4 MG SL tabletCommonly known as: NITROSTAT Place 0.4 mg under the tongue every 5 (five) minutes as needed for chest painpantoprazole 40 MG tabletCommonly known as: PROTONIX Take 40 mg by mouth dailyotassium chloride 10 MEQ CR capsuleCommonly known as: MICRO-K Take 10 mEq by mouth 2 (two) times a dayPRESERVISION AREDS PO Take 1 tablet by mouth nightly03/17senna- docusate 8.6-50 MGCommonly known as: PERICOLACE Take 2 tablets by mouth nightly as needed for constipationSpiriva Respimat 2.5 MCG/ACT AersGeneric drug: Tiotropium [place] Monohydrate Inhale 1 puff daily03/18TYLENOL PM EXTRA STRENGTH PO Take 1 tablet by mouth nightly as needed (for sleep)STOP taking these medicationsHYDROcodone-acetaminophen 5-325 MG per tabletCommonly known as: NORCOWhere to Get Your MedicationsThese medications were sent to [facility] [place], [place] - [address] [address] [place] [address] Biopatch (Dressing) Misc heparin 100 UNIT/ML Soln meropenem 1 g injection Saline Flush 0.9 % SolnThese medications were sent to [facility] [address] [place], [place] - [facility] [address] [facility] [address], [facility] [address] oxyCODONE-acetaminophen 5-325 MG per tabletIndication for Admission: 85-year-old female well-known to the vascular surgeryservice directly admitted to [facility] in the office for 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 She recently underwent redo left lower extremityfemoral to popliteal bypass graft with CryoVein in October 2020, and previous tothat underwent right to left cross femoral bypass graft in December 2019 that hadsince occluded.Hospital Course & amp; Complications: [facility], blood cultures and wound cultures were obtained, she wasempirically started on doxycycline. She was taken to the operating room by on 03/11/2021 where she underwent left groin exploration, removal of old leftfemoral to popliteal bypass graft, left abductor and sartorius flap placement,Pulsavac irrigation. Pus was noted in the prosthetic graft intraoperatively andculture was sent. Postoperatively, venous bleeding from the raw surface of themuscle in the left groin, it was repacked with a saline wet-to-dry dressing andmonitored closely. Hemostasis was achieved, she was transfused 1 unit of packedred blood cells.A wound VAC was applied to the left groin on 03/14/2021 successfully. Home woundVAC application was completed and delivered to her room. Infectious diseasestarted the patient on meropenem to provide broad-spectrum coverage forgram-negative rods and to cover the Bacteroides fragilis positive cultures notedon a anaerobic culture dated 03/10/2021. IV meropenem 1 g every 8 hours wasrecommended for a total of 6 weeks with an end date of 04/23/2021. A PICC linewas inserted, [facility] services provided to home antibiotics, and home careservices were arranged.On 03/17/2021, the patient was stable for discharge to home with her daughterwith whom she resides after an evening dose of IV meropenem. However, h erdischarge was delayed due to acute urinary retention after Mo catheterremoval. She remained hospitalized overnight for attempted trial void, requiredstraight catheterization overnight, had significant post void residual of 450 ccafter voiding 250 cc. Patient agreed to have a Mo catheter inserted and shewould follow-up with outpatient urology in [place] .ADDENDUM at 10:18 AM: Patient was able to successfully void approximately 250ccwith 160 cc post void residual. Patient was comfortable, she prefered not tohave Mo catheter, this seems reasonable. I discussed with daughter Ninfa to look for with regards to urinary retention, and instructed her to bringthe patient to the emergency department the patient has not voided within areasonable period of time or is uncomfortable, she may need a catheter insertionat that time.Her left groin wound VAC was changed and converted to her home wound VAC device.The left groin wound was healing nicely without any obvious persistent infectionor he morrhage. Her pain was well controlled.She will be discharged after her morning dose of meropenum on 03/18/2021. HomeCare Nursing is expected to stop by her home in the afternoon to administer theafternoon dose. I spoke to the [facility] on the evening of 03/17/2021 to postpone herSOC which was originally 0800 on 03/18/2021 and explained the delay. [facility] nursingappreciated the update.Past Medical History:Past Medical History:Diagnosis Date Acute on chronic diastolic congestive heart failure 11/03/2016 Advanced Air[employer] Equipment Used Elective for teaching Anemia Carotid artery occlusion COPD (chronic obstructive pulmonary disease) 11/03/2016 uses 2L oxygen at night Coronary artery disease f/u by Dr. Metzger GERD (gastroesophageal reflux disease) Heart valve disease Hiatal hernia History of GI bleed [place] (hard of hearing) Hyperlipidemia Hypertension Macular degeneration NSTEMI (non-ST elevated myocardial infarction) 11/03/2016 Osteoarthritis Peripheral vascular disease Pneumonia due to influenza A virus 11/03/2016 Stroke TIA (transient ischemic attack)Surgical Procedures:Procedure(s) with comments:LEFT GROIN EXPLORATION WITH MUSCLE FLAP (Left) - ADD ON MD BOOKED 03/10 1931, MDAVAILABLE TF, COVID NEGATIVE, MEDICAL CLEARED, PT NPOSignificant Diagnostic Studies:-Wound culture 03/11/2021 (no growth), wound culture 03/10/2021 (no growth)-Routine labs-Chest x-ray 03/10/2021: IMPRESSION: Chronic obstructive pulmonary disease. Nopneumonia or congestive heart failure.Treatments:-Empiric antibiotics doxycycline, IV meropenum (known Bacteroides fragilisculture)-OR 03/11/2021 left groin wound exploration, partial removal of old left femoralto popliteal graft, washout, left abductor and sartorius muscle flap-Left groin wound VAC application 03/14/2021ischarge Exam:Vitals: Temp: [97.3 F-98.2 F] 98.2 FHeart Rate: [77-106] 85Resp: [16-19] 18BP: (101-136)/(48-60) 105/56General appearance: Awake and alert, NAD sitting upright in bedNeurologic:Cranial nerves II-XII grossly intact, movement and sensation grosslynormal in BUE and BLE.Lungs: CTA bilaterally anterior; no rhonchi, rales, wheezing.Heart: Regular rate and rhythm, no murmurs, rubs, gallops.Abdomen: Soft, non-tender, NABS througoutExtremities:RLE unremarkable.Left groin wound vac with excellent suction, no leaks, no swelling/edema,minimal TPP. LLE warm throughout to foot, no pedal sores, ankle wound wrappedwith kerlex.Pulses:+DP/PT doppler BLESkin: Skin color, texture, and turgor otherwise normal for age. 03/17/2021 LEFT grion wound (photo taken with patients verbal consent)Items needing special attention:- Continue wound VAC therapy to the left groin on Wednesdays,next dressing change due 03/19/2021 by home care nursing.-Continue IV meropenem for 6 weeks (end 04/23/2021), follow-up with infectiousdisease MILL REPRESENTATIVE 04/06/2021 at 10 AM, and with Dr. Haines on 04/14/2021 at 2:30 PM.-Weekly labs to be drawn by home care services CBC, CMP, ESR, CRP to be sent toinfectious [id number] with Dr. Sparrow (vascular surgeon ) on 04/05/2021 at 1 PM- Follow up with outpatient urology ([facility]) if you continue to haveissues with urinary retention or not sufficiently emptying bladder voiding.Address: [address] [place], [place] [address]Phone: Discharged Condition:goodDisposition: Home or Self CareSignature: Eduardo Conn PADate: March 18, 2021Time: 8:47 AM Name Value Range Interpretation Code Description Data Lavinia rce(s) Supporting Document(s) ID Date Data Source [id number] 03/18/2021 09:57:00 AM EDT [facility] ([facility]) Name Value Range Interpretation Code Description Data [facility] Supporting Document(s) Sodium [Moles/volume] in Serum or Plasma 141 mmol/L 136-145 [facility]) Potassium [Moles/volume] in Serum or Plasma 4.0 mmol/L 3.6-5.2 [facility] ([facility]) Carbon dioxide, total [Moles/volume] in Serum or Plasma 32 mmol/L 22 -31 [facility] ([facility]) Chloride [Moles/volume] in Serum or Plasma 106 mmol/L 100-108 [facility] ([facility]) Creatinine [Mass/volume] in Serum or Plasma 0.65 mg/dL 0.60-1.00 [facility] ([facility]) Urea nitrogen [Mass/volume] in Serum or Plasma 16 mg/dL 7-24 [facility] ([facility]) Anion gap in Serum or Plasma 3 mmol/L 7-16 [facility] ([facility]) Glucose [Mass/volume] in Serum or Plasma 89 mg/dL 70-99 [facility] ([facility]) Urea nitrogen/Creatinine [Mass Ratio] in Serum or Plasma 24.6 1 0.0-20.0 [facility] ([facility]) Glomerular filtration rate/1.73 sq M pre dicted among blacks [Volume Rate/Area] in Serum or Plasma by Creatinine-based formula (MDRD) Laboratory test result [facility] ([facility]) Glomerular filtration rate/1.73 sq M pre dicted among non-blacks [Volume Rate/Area] in Serum or Plasma by Creatinine-based formula (MDRD) Laboratory test result [facility] ([facility]) Calcium [Mass/volume] in Serum or Plasma 8.1 mg/dL 8.4-10.2 [facility] ([facility]) Glomerular filtration rate/1.73 sq M pre dicted among non-blacks [Volume Rate/Area] in Serum or Plasma by Creatinine-based formula (MDRD) Laboratory test result [facility] ([facility]) -- NORMAL KIDNEY FUNCTION OR MILD DISEASE - GFR >OR= 60 CHRONIC KIDNEY DISEASE - GFR 15 - 59 RENAL FAILURE - GFR <15 Est. GFR calculation based on the MDRD study equation, which assumes a steady state for creatinine. Est. GFR should not be used for medication dosing. ID Date Data Source [id number] 03/18/2021 09:37:00 AM EDT [facility] ([facility]) Name Value Range Interpretation Code Description Data Lavinia rce(s) Supporting Document(s) Leukocytes [#/volume] in Blood by Automated count 6.7 10*3/uL 4.10-11 .00 [facility] ([facility]) Erythrocytes [#/volume] in Blood by Automated count 2.76 10*6/uL 4.00 -5.40 [facility] ([facility]) Hemoglobin [Mass/volume] in Blood 8.3 g/dL 12.0-16.0 [facility] ([facility]) Erythrocyte mean corpuscular volume [Entitic volume] by Auto mated count 91.4 fL 80.0-95.0 [facility] ([facility] ) Hematocrit [Volume Fraction] of Blood by Automated count 25.2 % 3 6.00-47.00 [facility] ([facility]) Erythrocyte mean corpuscular hemoglobin concentration [Mass/volume] by Automated count 32.8 g/dL 32-36 [facility] ([facility]) Erythrocyte mean corpuscular hemoglobin [Entitic mass] by Automated count 29.9 pg 27.0-32.0 [facility] ([facility]) Platelets [#/volume] in Blood by Automated count 261 10*3/uL 150-450 [facility] ([facility]) Erythrocyte distribution width [Ratio] by Automated count 13.7 % 10.5-14.5 [facility] ([facility]) Platelet mean volume [Entitic volume] in Blood by Gui 7.5 fL 7.1-10.7 [facility] ([facility]) ID Date Data Source [id number] 03/18/2021 05:58:11 AM EDT [facility] [place] Name Value Range Interpretation Code Description Data Lavinia rce(s) Supporting Document(s) SODIUM 141 mmol/L (136-145) [facility] POTASSIUM 4.0 mmol/L (3.6-5.2) [facility] CHLORIDE 106 mmol/L (100-108) [facility] CO2 32 mmol/L (22-31) H [facility] ANION GAP 3 mmol/L (7-16) L [facility] UREA NITROGEN 16 mg/dL (7-24) [facility] CREATININE 0.65 mg/dL (0.60-1.00) [facility] BUN/CREAT RATIO 24.6 RATIO (10.0-20.0) H [facility] GLUCOSE 89 mg/dL (70-99) [facility] CALCIUM 8.1 mg/dL (8.4-10.2) L [facility] GFR >60 ml/min/1.73m2 (>59) [facility] GFR ( AMER) >60 ml/min/1.73m2 (>59) [facility] GFR INTERPRETATION [facility] --NORMAL KIDNEY FUNCTION OR MILD DISEASE - GFR >OR= 60CHRONIC KIDNEY DISEASE - GFR 15 - 59RENAL FAILURE - GFR <15 Est. GFR calculation based on the MDRDstudy equation, which assumes a steadystate for creatinine. Est. GFR should notbe used for medication dosing. ID Date Data Source [id number] 03/18/2021 05:38:26 AM EDT [facility] [place] Name Value Range Interpretation Code Description Data Lavinia rce(s) Supporting Document(s) WBC 6.7 10*3/uL (4.1-11.0) [facility] [place] [facility] [place] RBC 2.76 10*6/uL (4.00-5.40) L [facility] [place] [facility] HGB 8.3 g/dL (12.0-16.0) L [facility] [place] [facility] HCT 25.2 % (36.0-47.0) L [facility] [place] MCV 91.4 fL (80.0-95.0) [facility] [place] MCH 29.9 pg (27.0-32.0) [facility] [place] MCHC 32.8 g/dL (32.0-36.0) [facility] RDW 13.7 % (10.5-14.5) [facility] PLT 261 10*3/uL (150-450) [facility] [place] MPV 7.5 fL (7.1-10.7) [facility] ID Date Data Source [id number] 03/17/2021 12:45:13 PM EDT [facility] [place] NT INFORMATIONPatient MRN Name Date of Age Gend*PT [id number] Nguyen Ibarra 1935 85 years F IPPT Location Admission Date/Time Visit ID Attending [id number] 03/10/21 1400 --- Tamera Hong([id number]) EPI ID CSN Admitting Provider [id number] Isabella Sparrow MD([id number]) Attestation signed by Isabella Sparrow MD at 03/17/2021 12:45 PMI agree with the procedure documentationSignature: HANG Hongate: March 17, 2021Time: 12:44 PM --WOUND VAC NOTEVascular Surgery Clinical AffiliateFollow up on 03/17/21 at 12:23 PMPATIENT NAME: Nguyen IbarraN: [id number]: 1935 85 yearsPOD: 6 Days Post-Op S/P Procedure(s):LEFT GROIN EXPLORATION WITH MUSCLE FLAPLOS: 7 daysPlanned Procedure: Negative pressure mechanical wound vac change to LEFT groinwoundAttending Physician: Mini Hong Diagnosis: Wound dehiscencePHYSICAL EXAMVitals: 03/17/21 1109BP: 136/60Pulse: 81Resp: 18Temp: 98. 1 FSpO2: 96%DESCRIPTION OF PROCEDUREWound vac therapy paused. Dressing removed. 1 piece of black foam removed fromLEFT groin wound. Wound base appears clean, beefy red with granulating tissueand scant serosanguinous discharge, no bone exposed, no malodor. Wound [id number] x 2cm x 2cm with 4cm tunnel to 9'oclock. Surrounding tissue is withouterythema, skin edges pink without necrosis. 1 piece of black foam measured andplaced in wound bed. Adhesive drape and TRAC pad applied. Wound vac therapyresumed at 125 mmHg continuous with excellent seal achieved. Patient toleratedprocedure well. Home wound vac initiated.Next dressing change planned for Monday03/19/2021 at home with regular dressingchanges on [facility] by [facility].Contact Vascular Surgery PA/MILL REPRESENTATIVE at [phone] for questions or concerns. In theevent of wound vac malfunction, use a 0.9% Normal Saline wet-to-dry dressinguntil wound vac dressing can be replaced.03/17/2021 LEFT groin wound (photo taken with patients verbal consent)Signature: JOJO Khan , PA-CDate: March 17, 2021Time: 12:23 PM Name Value Range Interpretation Code Description Data Lavinia rce(s) Supporting Document(s) ID Date Data Source [id number] 03/16/2021 05:11:00 PM EDT [facility]) Name Value Range Interpretation Code Description Data Lavinia rce(s) Supporting Document(s) Magnesium [Mass/volume] in Serum or Plasma 2.2 mg/dL 1.7-2.4 [facility] ([facility]) ID Date Data Source [id number] 03/16/2021 12:52:00 PM EDT [facility] Name Value Range Interpretation Code Description Data Lavinia rce(s) Supporting Document(s) Specimen Description Laboratory test result [facility]) Laboratory test finding (navigational concept) Laboratory test result [facility]) Special Requests Laboratory test result [facility]) Report Status Laboratory test result [facility] ENT ([facility]) ID Date Data Source [id number] 03/16/2021 01:12:20 PM EDT [facility] Name Value Range Interpretation Code Description Data Lavinia rce(s) Supporting Document(s) MAGNESIUM 2.2 mg/dL (1.7-2.4) [facility] ID Date Data Source [id number] 03/16/2021 01:12:20 PM EDT [facility] Name Value Range Interpretation Code Description Data Lavinia rce(s) Supporting Document(s) SODIUM 141 mmol/L (136-145) [facility] POTASSIUM 4.7 mmol/L (3.6-5.2) [facility] CHLORIDE 107 mmol/L (100-108) [facility] CO2 27 mmol/L (22-31) [facility] ANION GAP 7 mmol/L (7-16) [facility] UREA NITROGEN 15 mg/dL (7-24) [facility] CREATININE 0.68 mg/dL (0.60-1.00) [facility] BUN/CREAT RATIO 22.1 RATIO (10.0-20.0) H [facility] GLUCOSE 86 mg/dL (70-99) [facility] CALCIUM 8.4 mg/dL (8.4-10.2) [facility] GFR >60 ml/min/1.73m2 (>59) [facility] GFR ( AMER) >60 ml/min/1.73m2 (>59) [facility] GFR INTERPRETATION [facility] --NORMAL KIDNEY FUNCTION OR MILD DISEASE - GFR >OR= 60CHRONIC KIDNEY DISEASE - GFR 15 - 59RENAL FAILURE - GFR <15 Est. GFR calculation based on the MDRDstudy equation, which assumes a steadystate for creatinine. Est. GFR should notbe used for medication dosing. ID Date Data Source [id number] 03/16/2021 12:48:49 PM EDT [facility] Name Value Range Interpretation Code Description Data Lavinia rce(s) Supporting Document(s) WBC 8.4 10*3/uL (4.1-11.0) [facility] RBC 3.05 10*6/uL (4.00-5.40) L [facility] HGB 9.2 g/dL (12.0-16.0) L [facility] HCT 27.6 % (36.0-47.0) L [facility] MCV 90.6 fL (80.0-95.0) [facility] MCH 30.2 pg (27.0-32.0) [facility] MCHC 33.3 g/dL (32.0-36.0) [facility] RDW 13.9 % (10.5-14.5) [facility] PLT 244 10*3/uL (150-450) [facility] MPV 7.9 fL (7.1-10.7) [facility] ID Date Data Source [id number] 03/15/2021 10:20:37 PM [facility]T [facility]FORMATIONPatient MRN Name Date of Age Gend*PT [id number] Nguyen Ibarra 1935 85 years F IPPT Location Admission Date/Time Visit ID Attending [id number] 03/10/21 1400 --- Isabella Sparrow MD([id number]) EPI ID CSN Admitting Provider [id number] Isabella Sparrow MD([id number]) Attestation signed by Isabella Sparrow MD at 03/15/2021 10:20 PM I agree with the procedure documentationSignature: HANG Hongate: March 15, 2021Time: 10:20 PM --Wound VAC application 03/14/2021, left thighWound measured 6 cm deep, 4 x 4 cm wide.Moderate bleeding with removal of large volume of Kerlix placed 2 days ago by.Observed for several minutes, lavaged with normal saline, and no ongoing activebleeding.Black foam, single piece, placed deep into the wound bed. Attached to [email or web address].Patient tolerated procedure well with minimal discomfort. She was actuallyquite pleasantly surprised at how painless it was, despite not receivingfentanyl prior.Media InformationDocument InformationMisc Administration: Patient PhotoLeft groin03/14/2021 17:33Attached To:Hospital Encounter on 03/10/21SourcJOJO Xavier | [facility] D4 Cardiovascular Surgery Unit Name Value Range Interpretation Code Description Data Lavinia rcfrida(s) Supporting Document(s) ID Date Data Source [id number] 03/15/2021 07:47:34 AM EDT [facility] Name Value Range Interpretation Code Description Data Lavinia rce(s) Supporting Document(s) SODIUM 140 mmol/L (136-145) [facility] POTASSIUM 3.8 mmol/L (3.6-5.2) [facility] CHLORIDE 104 mmol/L (100-108) [facility] CO2 31 mmol/L (22-31) [facility] ANION GAP 5 mmol/L (7-16) L [facility] UREA NITROGEN 11 mg/dL (7-24) [facility] CREATININE 0.58 mg/dL (0.60-1.00) L [facility] BUN/CREAT RATIO 19.0 RATIO (10.0-20.0) [facility] GLUCOSE 145 mg/dL (70-99) H [facility] CALCIUM 8.0 mg/dL (8.4-10.2) L [facility] GFR >60 ml/min/1.73m2 (>59) [facility] GFR ( AMER) >60 ml/min/1.73m2 (>59) [facility] GFR INTERPRETATION [facility] --NORMAL KIDNEY FUNCTION OR MILD DISEASE - GFR >OR= 60CHRONIC KIDNEY DISEASE - GFR 15 - 59RENAL FAILURE - GFR <15 Est. GFR calculation based on the MDRDstudy equation, which assumes a steadystate for creatinine. Est. GFR should notbe used for medication dosing. ID Date Data Source [id number] 03/15/2021 07:04:32 AM EDT [facility] Name Value Range Interpretation Code Description Data Lavinia rce(s) Supporting Document(s) WBC 6.6 10*3/uL (4.1-11.0) [facility] RBC 2.76 10*6/uL (4.00-5.40) L [facility] HGB 8.3 g/dL (12.0-16.0) L [facility] HCT 25.2 % (36.0-47.0) L [facility] MCV 91.5 fL (80.0-95.0) [facility] MCH 30.3 pg (27.0-32.0) [facility] MCHC 33.1 g/dL (32.0-36.0) [facility] RDW 13.9 % (10.5-14.5) [facility] PLT 184 10*3/uL (150-450) [facility] MPV 7.7 fL (7.1-10.7) [facility] ID Date Data Source [id number] 03/14/2021 07:22:00 PM EDT [facility] Name Value Range Interpretation Code Description Data Lavinia rce(s) Supporting Document(s) Vancomycin [Mass/volume] in Serum or Plasma --trough 9.9 ug/mL 10.0- 20.0 [facility] ([facility]) ID Date Data Source [id number] 03/14/2021 03:22:35 PM EDT [facility] Name Value Range Interpretation Code Description Data Lavinia rce(s) Supporting Document(s) VANCOMYCIN TROUGH 9.9 ug/mL (10.0-20.0) L [facility] ID Date Data Source [id number] 03/14/2021 09:39:43 AM EDT [facility] Name Value Range Interpretation Code Description Data Lavinia rce(s) Supporting Document(s) WBC 7.8 10*3/uL (4.1-11.0) [facility] RBC 2.79 10*6/uL (4.00-5.40) L [facility] HGB 8.4 g/dL (12.0-16.0) L [facility] HCT 25.2 % (36.0-47.0) L [facility] MCV 90.4 fL (80.0-95.0) [facility] MCH 30.2 pg (27.0-32.0) [facility] MCHC 33.4 g/dL (32.0-36.0) [facility] RDW 13.8 % (10.5-14.5) [facility] PLT 165 10*3/uL (150-450) [facility] MPV 8.5 fL (7.1-10.7) [facility] ID Date Data Source [id number] 03/14/2021 09:27:46 AM EDT [facility] Name Value Range Interpretation Code Description Data Lavinia rce(s) Supporting Document(s) SODIUM 141 mmol/L (136-145) [facility] POTASSIUM 4.1 mmol/L (3.6-5.2) [facility] CHLORIDE 105 mmol/L (100-108) [facility] CO2 30 mmol/L (22-31) [facility] ANION GAP 6 mmol/L (7-16) L [facility] UREA NITROGEN 12 mg/dL (7-24) [facility] CREATININE 0.58 mg/dL (0.60-1.00) L [facility] BUN/CREAT RATIO 20.7 RATIO (10.0-20.0) H [facility] GLUCOSE 112 mg/dL (70-99) H [facility] CALCIUM 8.0 mg/dL (8.4-10.2) L [facility] GFR >60 ml/min/1.73m2 (>59) [facility] GFR ( AMER) >60 ml/min/1.73m2 (>59) [facility] GFR INTERPRETATION [facility] --NORMAL KIDNEY FUNCTION OR MILD DISEASE - GFR >OR= 60CHRONIC KIDNEY DISEASE - GFR 15 - 59RENAL FAILURE - GFR <15 Est. GFR calculation based on the MDRDstudy equation, which assumes a steadystate for creatinine. Est. GFR should notbe used for medication dosing. ID Date Data Source [id number] 03/13/2021 08:50:00 PM EDT [facility] Name Value Range Interpretation Code Description Data Lavinia rce(s) Supporting Document(s) Specimen Description Laboratory test result [facility]) Special Requests Laboratory test result [facility]) Microscopic observation [Identifier] in Unspecified sp ecimen by Gram stain Laboratory test result [facility] Moderate (10 To 25/LPF) White Blood Cell srare (<1/LPF) Epithelial Cellsno Bacteria Laboratory test finding (navigational concept) Laboratory test result [facility] ([facility]) Report Status Laboratory test result [facility] ([facility]) ID Date Data Source [id number] 03/13/2021 08:50:00 PM EDT [facility] Name Value Range Interpretation Code Description Data Lavinia rce(s) Supporting Document(s) Special Requests Laboratory test result [facility]) Laboratory test finding (navigational concept) Laboratory test result [facility]) Specimen Description Laboratory test result [facility]) Report Status Laboratory test result [facility]) ID Date Data Source [id number] 03/12/2021 10:52:00 PM EDT [facility] Name Value Range Interpretation Code Description Data Lavinia rce(s) Supporting Document(s) Hemoglobin [Mass/volume] in Blood 9.9 g/dL 12.0-16.0 [facility] ([facility]) Hematocrit [Volume Fraction] of Blood by Automated count 29.1 % 3 6.00-47.00 [facility]) ID Date Data Source [id number] 03/12/2021 09:53:26 PM EDT [facility]FORMATIONPatient MRN Name Date of Age Gend*PT [id number] Nguyen Ibarra 1935 85 years F IPPT Location Admission Date/Time Visit ID Attending [id number] 03/10/21 1400 --- Tamera Hong([id number]) EPI ID CSN Admitting Provider [id number] Isabella Sparrow MD([id number])Infectious Disease ConsultationDate of admission; 1Date: 1Reason for visit infectious disease consultation requested by vascular surgeryfor assistance with empiric antimicrobial use, in the setting of purulenceencountered in operating room but negative operative cultures. The patient iscurrently on vancomycin and meropenem As per request of vascular surgery(meropenem is restricted antibiotic at H requiring ID approval) ---Chief Complaint: L groin dranage and odor prior to being readmitted for s uchHistory of Present Illness: 85 years old female with multiplemedical problems including PAD, WAMPANOAG, legally blind.When readmitted 03/09, [facility] JOJO Llanes noted:" The patient is an 85-year-old female who is known to the practice who presentsfor direct admission due to exposed graft in the left groin. She has ahistory of COPD CAD, HTN, GERD, iron deficiency anemia, degenerative discdisease, chronic diastolic heart failure, HLD, cerebrovascular disease withhistory of TIA. She has a significant history of interventions in her left leg. Vascular hxof angioplasty and stent to bilateral IVELISSE, right EIA in June 2018. She isstatus post left PFA/SFA endarterectomy with Xenosure patch angioplasty leftEIA, [employer]PLICATION[employer] CLERK, PFA and SFA in March 2019. She then had left EIA stent left CFAangioplasty in July 2019. Status post left femoral and SFA endarterectomywith cross them BPG from right SFA to left SFA, stent in the SFA x2 in December 2019.Subsequently right SFA stent and angioplasty was done in March 2020 she thenunderwent bypass graft from right to left cross femoral in the left lowerextremity to above-knee popliteal artery with propatent in April 2020 herbypass graft then subsequently occluded and she is now status post redo leftlower extremity femoropopliteal bypass graft with CryoVein in October 2020. In January 2021 the patient had an angiogram via left brachial cutdown, aortogramand right SFA balloon angioplasty. She was doing well. The patient reports thatover the past couple of weeks she has had pain in the left groin. She has haddrainage. She has had a mild odor to the drainage. CT scan was completed todayrevealing an occluded bypass graft to the left popliteal artery which nowcontains a small foci of gas in the proximal aspect with abnormal surroundingsoft tissue density as well small foci of gas in the adjacent soft tissues.Plan was to admit the patient to the hospital to have possible removal of bypassgraft due to infection, muscle flap and wound VAC placement. She otherwise denies any fevers or chills. No abdominal pain or constipation. Nocough or SOB."...Skin: No new rashes. There is a break in the skin with scant drainage. The graftis superficial and pulse can easily be palpated in the opening. No purulence vnurses visualized.Wound/Incision: left groin. She additionally has a left calf ulceration that hassome yosef yellow slough present...."Admission lab data: Na 142 K 3.9 Cl 106 CO2 28 BUN 12 Cr 0.64 PT 11.3 PTT 27.9INR 1.08 Alb 3.4 normal LFT's. Blood cultures were performed.Hospital course: 03/10, Dr. Sparrow noted:" Well known to meCross fem graftLeft fem pop old occluded graftCame with groin painOpen woundTracks to occluded graft and take off from cross femair on CT scan with fluidWill take to OR tomorrowWash out and possible muscle flap "03/10, portable CXR:" Comparison: December 2019 Findings: Evaluation of the lung bases is suboptimal because of superimposedcostochondral calcifications. There is no convincing evidence of pneumonia orcongestive heart failure. There is stable linear scarring in the right midlung.The upper lungs are lucent likely related to emphysema. There is no pleuraleffusion or pneumothorax. The cardiac and mediastinal contours are unchangedand within normal limits. Atherosclerotic changes of the aorta. No acute boneabnormality suspected. IMPRESSIONIMPRESSION: Chronic obstructive pulmonary disease. No pneumonia or congestiveheart failure."03/10, afebrile.03/11, afebrile.WBC 8.1 HGB 9.2 PLT 181 Na 143 K 3.8Cl 108 Co2 29 BUN10 Cr 0.55Glu 109 Ca 7.9. The pt was on Doxycycline, change to vancomycin was planned. Pharmacy wasconsulted to dose . The pt received a 1 gram IV load with plans for 750 mg evry18 hoursqnd a vancomycin trough on 03/12.03/10 MRSA nares screen was negative03/11, the pt underwent surgery. Brief operative note reviewed debridement wasperformed. A muscle flap was performed. A section of graft was sent to pathologyfor evaluationlower wound was packed oen with betadine wet to dry. VAC planned03/12.03/11 pm due to venous bleeding wound was repacked compressive dressing wasplaced trasfussion PRBC was planned WBC 16.9 HGB 9.2-8.6 [id number]/, T max 100.2 20;17 pm WBC 14.2 HGB 9.5 PLT 156 na 141 K 4.3 Cl 106 Co2 24AUy13 cr 0.74 Glu 123 Vancomycin trough 4.1 repeat planned for 03/14. 03/12, [facility] noted:" ...1. POD 1 S/P left groin exploration and debridement. Bypass graft coveredwith muscle flap.-Per Dr. Sparrow there was purulence during the debridement. Wound cultures havebeen sent and are currently pending. No bacteria noted on Gram stain.-Has muscle flap now with graft that is functional and needs to remain in place.Currently Doxy and Vanco. Will D/C Doxy. Has tolerated Meropenum in the past.PCN allergy listed as throat swelling and has never had a challenge here. Willobtain an ID consult and see if we can start Meropenum in the interim.-Will place a wound vac tomorrow. 2. HTN/CAD/Chroic diastolic HF/ HLD-Continue Lipitor 40 mg nightly, Lasix 20 mg daily, lisinopril 2.5 mg nightlyand Coreg 3.125 mg twice daily. 3. COPD-DuoNebs, Dulera-LET. 4. GERD/GI prophylaxis-Protonix 40 mg daily. 5. Pain management/ Neuropathy -[place] and Neurontin.-Patient is somewhat resistant to pain meds. Will need Fentanyl with vacplacement tomorrow. 6. Left leg ulcer -Apply Santyl with saline wet-to-dry dressing daily 7. Acute blood loss anemia.-Patient received one unit PRBC. H/H 9.5/28.1 stable.-Continue Fe supplements. 8. PT eval. Likely will need STR given that she had the muscle flap and willneed IV abx. And wound vac changes. DVT Prophylaxis with subcutaneous Heparin. Pneumonia prophylaxis:H- HOB >30 degrees at all times, out of bed for meals.A- Ambulate three times daily.B- Holiday teeth four times daily.I- Incentive spirometry.T- Teach patient expectations Will discuss with Isabella Sparrow MD and/or Covering Attending MD" Then the case was discussed with me. Meropenem use was approved. Formal IDconsult requested.The pt complains of L groin pain. She notes she is WAMPANOAG and legally bl ind. Past Medical History:Diagnosis Date Acute on chronic diastolic congestive heart failure 11/03/2016 [employer] Equipment Used Elective for teaching Anemia Carotid artery occlusion COPD (chronic obstructive pulmonary disease) 11/03/2016 uses 2L oxygen at night Coronary artery disease f/u by Dr. Metzger GERD (gastroesophageal reflux disease) Heart valve disease Hiatal hernia History of GI bleed WAMPANOAG (hard of hearing) Hyperlipidemia Hypertension Macular degeneration NSTEMI (non-ST elevated myocardial infarction) 11/03/2016 Osteoarthritis Peripheral vascular disease Pneumonia due to influenza A virus 11/03/2016 Stroke TIA (transient ischemic attack)Past Surgical History:Procedure Laterality Date Angioplasty and stenting Left external iliac artery stenting, left common femoral artery angioplasty COLONOSCOPY CORONARY STENT PLACEMENT 2012 x2 FEMORAL ARTERY REPAIR Left 03/11/2021 Procedure: LEFT GROIN EXPLORATION WITH MUSCLE FLAP; Surgeon: Isabella Sparrow MD; Laterality: Left; ADD ON MD BOOKED 03/10 1931, MD AVAILABLE TF, COVIDNEGATIVE, MEDICAL CLEARED, PT NPO FEMORAL ENDARTERECTOMY Left Femoral endarterectomy with patch Left 2019 Iliac Endarterectomy Left 2019 Left profunda femoris artery endarterectomy UPPER GASTROINTESTINAL ENDOSCOPY VASCULAR SURGERY Left 12/26/2019 Procedure: RIGHT TO LEFT FEMORAL ARTERIAL BYPASS, , FEMORAL ENDARTERECTOMYLEFT, INTRAOPERATIVE ANGIOGRAM LEFT W/ SUPERFICAL ARTERIAL STENT; Surgeon: MD Vicky; Laterality: Left; VASCULAR SURGERY Left 04/28/2020 Procedure: CROSS FEMORAL TO ABOVE POPLITEAL ARTERY BYPASS OPERATIVEARTERIOGRAM; Surgeon: Zuhair Levine MD; Laterality: Left; VASCULAR SURGERY Left 10/20/2020 Procedure: LEFT ARTERIAL FEMORAL TO Popliteal BYPASS WITH CRYOVEIN; Surgeon:Zuhair Levine MD; Laterality: Left;AllergiesAllergen Reactions Ciprofloxacin Nausea And Vomiting Nausea/vomiting is a common adverse drug reaction associated withciprofloxacin; not an allergy. Salvador Mullins, PharmD Penicillins Facial Swelling Within 24 hours of dose at 13 years old Vancomycin Itching Received in 2017 at [facility] and 1 dose here -- no documentation ofrxn but patient appears to have been on IV steroids at the time as well. SASPrior to Admission medicationsMedication Sig Start Date End Date Taking? Authorizing Provideralbuterol (PROVENTIL HFA;VENTOLIN HFA) 108 (90 BASE) MCG/ACT inhaler Inhale 2puffs 4 (four) times a day as needed for wheezing Yes Historical Provider, Rellspirin EC 81 MG EC tablet Take 81 mg by mouth daily Yes Historical Provider,Relltorvastatin (LIPITOR) 40 MG tablet Take 40 mg by mouth nightly YesHistorical Provider, Jacobyarvedilol (COREG) 3.125 MG tablet Take 3.125 mg by mouth 2 (two) times a dayYes Historical Provider, Jacobyholecalciferol (VITAMIN D3) 1000 UNITS capsule Take 1,000 Units by mouthnightly Yes Historical Provider, Jacobylopidogrel (PLAVIX) 75 MG tablet Take 75 mg by mouth daily Yes HistoricalProvider, Jacobyollagenase ointment Apply topically daily 01/30/21 Yes Scott ConnenhydrAMINE-APAP, sleep, (TYLENOL PM EXTRA STRENGTH PO) Take 1 tablet bymouth nightly as needed (for sleep) Yes Historical Provider, Hangocusate sodium (COLACE) 100 MG capsule Take 100 mg by mouth daily YesHistorical Provider, ferrous sulfate 325 (65 FE) MG tablet Take 325 mg by mouth daily YesHistorical Provider, fluticasone- salmeterol (ADVAIR) 500-50 MCG/DOSE DISKUS Inhale 1 puff 2 (two)times a day Yes Historical Provider, furosemide (LASIX) 20 MG tablet Take 20 mg by mouth daily Yes HistoricalProviderMDgabapentin (NEURONTIN) 100 MG capsule Take 200 mg by mouth 2 (two) times a dayYes Historical Provider, HYDROcodone- acetaminophen (NORCO) 5-325 MG per tablet Take 0.5 tablets by mouthevery 4 (four) hours as needed for pain Yes Historical Provider, ipratropium- albuterol (DUO-NEB) 0.5-2.5 mg/mL nebulizer Inhale 3 mL every 6(six) hours as needed (for shortness of breath) Yes Historical Provider, lisinopril (PRINIVIL,ZESTRIL) 2.5 MG tablet Take 2.5 mg by mouth nightly YesHistorical Provider, DONTEultiple Vitamins-Minerals (PRESERVISION AREDS PO) Take 1 tablet by mouthnightly Yes Historical Provider, nitroglycerin (NITROSTAT) 0.[address] 0.4 mg under the tongue every 5(five) minutes as needed for chest pain Yes Historical Provider, oxyCODONE-acetaminophen (PERCOCET) 5-325 MG per tablet Take 1-2 tablets by mouthevery 4 (four) hours as needed for pain Yes Historical Provider, MDpantoprazole (PROTONIX) 40 MG tablet Take 40 mg by mouth daily Yes HistoricalProvider, MDpotassium chloride (MICRO-K) 10 MEQ CR capsule Take 10 mEq by mouth 2 (two)times a day Yes Historical Provider, Munaenna-docusate (PERICOLACE) 8.6-50 MG Take 2 tablets by mouth nightly as neededfor constipation 01/29/21 Yes Larisa Llanes, PATiotropium [place] Monohydrate (Spiriva Respimat) 2.5 MCG/ACT AERS Inhale 1 puffdaily Yes Historical Provider, MDScheduled Meds: aspirin EC 81 mg Oral Daily atorvastatin 40 mg Oral Nightly beta carotene w/ C and E mineral 1 tablet Oral Nightly carvedilol 3.125 mg Oral BID clopidogrel 75 mg Oral Daily collagenase Topical Daily docusate sodium 100 mg Oral Daily ferrous sulfate 325 mg Oral Daily furosemide 20 mg Oral Daily gabapentin 200 mg Oral BID heparin (porcine) 5,000 Units Subcutaneous Q8H KARLY ipratropium 0.5 mg Nebulization QID lisinopril 2.5 mg Oral Nightly meropenem 1 g Intravenous Q12H mometasone-formoterol 2 puff Inhalation RTBID normal saline flush 3 mL Intravenous Q8H KARLY normal saline flush 3 mL Intravenous Per Protocol normal saline flush 3 mL Intravenous Per Protocol pantoprazole 40 mg Oral Daily potassium chloride SA 10 mEq Oral BID vancomycin 750 mg Intravenous Q18H Vitamin D 1,000 Units Oral NightlyContinuous Infusions:PRN Meds:.acetaminophen, acetaminophen, fentaNYL Citrate (PF),HYDROcodone- acetaminophen OR HYDROcodone-acetaminophen,ipratropium-albuterol, ondansetron, vancomycin randomly dosedfamily History:Mother Obesity age 93Father: (+) TOB in a fire age 77 after falling asleep smokingBrother CAD6 healthy daughtersSocial History:Social HistorySocioeconomic History Marital status: Spouse name: Not on file Number of children: 6 Years of education: 12 Highest education level: High school graduateOccupational History Worked for the [employer], now retiredTobacco Use Smoking status: Former Smoker Packs/day: 1.00 Years: 55.00 Pack years: 55.00 Types: Cigarettes Quit date: 07/26/2016 Years since quittin.6 Smokeless tobacco: Never UsedSubstance and Sexual Activity Alcohol use: No Drug use: Never Sexual activity: Not on fileOther Topics Concern No pets, no service no hobbies lives with daughter and son in lawvaccinated for COVID-19Social History Narrative Not on fileSocial Determinants of HealthFinancial Resource Strain: Difficulty of Paying Living Expenses:Food Insecurity: Worried About Running Out of Food in the Last Year: Ran Out of Food in the Last Year:Transportation Needs: Lack of Transportation (Medical): Lack of Transportation (Non-Medical):Physical Activity: Days of Exercise per Week: Minutes of Exercise per Session:Stress: Feeling of Stress :Social Connections: Frequency of Communication with Friends and Family: Frequency of Social Gatherings with Friends and Family: Attends Shinto Services: Active Member of Clubs or Organizations: Attends Club or Organization Meetings: Marital Status:Intimate Partner Violence: Fear of Current or Ex-Partner: Emotionally Abused: Physically Abused: Sexually Abused:Review of Systems: All systems were reviewed and found negative except forthose mentioned in the HPI.Physical Exam:Temp: [97.8 F-100.2 F] 100.2 FHeart Rate: [80-123] 123Resp: [18-20] 20BP: (83-154)/(48-80) 154/67Body mass index is 21.58 kg/m .General Appearance: Pleasant, cooperative, alert and oriented [id number]:WAMPANOAG Head: NormocephalicEyes: tracking to my voiceMouth: No thrushNeck: Supple no lymphadenopathy, no bruitsHeart: tachycardic, Regular rate and rhythm, S1, S2 no S3, no S4, no rubs, nomurmursLungs: Clear to auscultationBreasts: N/AAbdomen: Soft, non-tender, positive bowel sounds, no hepatosplenomegaly,Extremities: No clubbing, cyanosis, or edemaPulses:not palpable infeetSkin: no hair on shins L groin bulky bandage L calve bandagedLymph Nodes: No cervical, axillary, or R inguinal adenopathyNeurologic: conversational. Follows simple requestsMisc Findings: see aboveLabs:Estimated Creatinine Clearance: 48.9 mL/min (based on SCr of 0.74 mg/dL).BMP:Lab ResultsComponent Value Date NA 141 03/12/2021 K 4.3 03/12/2021 CL 106 03/12/2021 CO2 27 03/12/2021 ANIONGAP 8 03/12/2021 CALCIUM 7.9 (L) 03/12/2021 GLU 123 (H) 03/12/2021 BUN 13 03/12/2021 CREATININE 0.74 03/12/2021 GFRAA >60 03/12/2021 GFRNONAA >60 03/12/2021esults from last 7 daysLab Units 03/12/2104WBC 10*3/uL -- 14.2* 16.9* -- 8.1HEMOGLOBIN g/dL 9.9* 9.5* 8.5* < > 9.2*HEMATOCRIT % 29.1* 28.1* 26.5* < > 28.1*PLATELETS 10*3/uL -- 156 191 -- 181 < > = values in this interval not displayed.CMP:Lab ResultsComponent Value Date NA 141 03/12/2021 K 4.3 03/12/2021 CL 106 03/12/2021 CO2 27 03/12/2021 ANIONGAP 8 03/12/2021 BUN 13 03/12/2021 CREATININE 0.74 03/12/2021 BCR 17.6 03/12/2021 GLU 123 (H) 03/12/2021 CALCIUM 7.9 (L) 03/12/2021 ALBUMIN 3.4 03/10/2021 GLOB 3.4 03/10/2021 AGRC 1.0 03/10/2021 ALKPHOS 83 03/10/2021 LABBILI 0.4 03/10/2021 AST 10 (L) 03/10/2021 ALT 11 (L) 03/10/2021 GFRAA >60 03/12/2021 GFRNONAA >60 03/12/2021esults from last 7 daysLab Units 03/12/2104WBC 10*3/uL -- 14.2* 16.9* -- 8.1HEMOGLOBIN g/dL 9.9* 9.5* 8.5* < > 9.2*HEMATOCRIT % 29.1* 28.1* 26.5* < > 28.1*PLATELETS 10*3/uL -- 156 191 -- 181 < > = values in this interval not displayed.Results from last 7 daysLab Units 03/12/2104WBC 10*3/uL -- 14.2* 16.9* -- 8.1RBC 10*6/uL -- 3.06* 2.89* -- 3.06*HEMOGLOBIN g/dL 9.9* 9.5* 8.5* < > 9.2*HEMATOCRIT % 29.1* 28.1* 26.5* < > 28.1*MCV fL -- 91.9 91.5 -- 91.7MCH pg -- 31.2 29.3 -- 30.1MCHC g/dL -- 33.9 32.0 -- 32.8RDW % -- 14.1 14.1 -- 14.3PLATELETS 10*3/uL -- 156 191 -- 181MPV fL -- 8.2 8.2 -- 8.0 < > = values in this interval not displayed.Invalid input(s): BACTERIAURResults Procedure Component Value Units Date/Time Wound culture [[id number]] Collected: 03/10/21 1630 Order Status: Completed Specimen: Non-Surg Soft Tissue Swab Updated: Specimen Description NON-SURG SOFT TISSUE SWAB LEFT GROIN Special Requests NONE Gram Stain Result MODERATE (10 TO 25/LPF) WHITE BLOOD CELLSFEW (<10/LPF) EPITHELIAL CELLSNO BACTERIA Culture Result NO GROWTH Report Status 03/12/2021 FINAL Narrative: LEFT GROIN Blood Culture Peripheral x 1 Set (2 bottles aerobic and anaerobic) [[id number]]Collect ed: 03/10/21 1535 Order Status: Completed Specimen: Peripheral Updated: 03/12/21 101 Specimen Description PERIPHERAL Special Requests NONE Culture Result NO GROWTH 2 DAYS Report Status PENDING Blood Culture Peripheral x 1 Set (2 bottles aerobic and anaerobic) [[id number]]Collected: 03/10/21 1535 Order Status: Completed Specimen: Peripheral Updated: 03/12/21 101 Specimen Description PERIPHERAL Special Requests NONE Culture Result NO GROWTH 2 DAYS Report Status PENDING Anaerobic culture [[id number]] Collected: 03/11/21 1430 Order Status: Completed Specimen: Non-Surg Soft Tissue Swab Updated: Specimen Description NON-SURG SOFT TISSUE SWAB L GROIN WOUND Special Requests NONE Culture Result TO FOLLOW Report Status PENDING Wound culture [[id number]] Collected: 03/11/21 1430 Order Status: Completed Updated: 03/12/21 0829 Specimen Description LEFT GROIN WOUND Special Requests NONE Gram Stain Result MODERATE (10 TO 25/LPF) WHITE BLOOD CELLSRARE (<1/LPF) EPITHELIAL CELLSNO ALYSSA TERIA Culture Result NO GROWTH 1 DAY Report Status PENDING Aerobic Fluid Culture / GS [[id number]] Collected: 03/11/21 1430 Order Status: Completed Specimen: Non-Surg Soft Tissue Swab Updated: Specimen Description NON-SURG SOFT TISSUE SWAB L GROIN WOUND Special Requests NONE Gram Stain Result NOT DONE Culture Result TEST(S) PROCESSED UNDER NEW ENTRY PLEASE SEE [facility] [id number]. [id number]. Report Status 03/11/2021 FINAL Fungal culture, non blood [[id number]] Collected: 03/11/21 1430 Order Status: No result Specimen: Non-Surg Soft Tissue Swab Updated: AFB Smear+Culture [[id number]] Collected: 03/11/21 1430 Order Status: No result Updated: 03/11/21 1932 Anaerobic culture [[id number]] Collected: 03/10/21 1630 Order Status: Completed Specimen: Wound from Non-Surg Soft Tissue Swab Updated:03/11/21 1221 Specimen Description WOUND LEFT GROIN Special Requests NONE Culture Result TO FOLLOW Report Status PENDING Narrative: LEFT GROIN MRSA nasal screen by PCR [[id number]] Collected: 03/10/21 1645 Order Status: Completed Specimen: Nares Updated: 03/11/21 0926 SPECIMEN DESCRIPTION NARES MRSA by PCR NEGATIVE Narrative: NARES/GROIN/UMBILICAL FOR NICU PATIENTS ONLY COVID/FLU AB/RSV PCR [[id number]] Collected: 03/10/21 1655 Order Status: Completed Specimen: Swab from Nasopharyngeal Updated: SPECIMEN DESCRIPTION NASOPHARYNGEAL Influenza A NEGATIVE Influenza B NEGATIVE RSV NEGATIVE Comment SEE NOTES Comment: SEE NOTE:THE U.S. FDA HAS MADE THIS TEST AVAILABLEUNDER AN EMERGENCY USE AUTHORIZATION(EUA) FOR THE DETECTION AND/OR DIAGNOSISOF THE VIRUS THAT CAUSES COVID-19.PERFORMED AT [address] [place] [address] COVID19 RESULT NOT DETECTED Comment: THIS ASSAY AMPLIFIES AND DETECTSTHE TARGET RNA USING REAL-TIME PCR.TESTING PERFORMED ON [employer] GENEXPERTNEGATIVE 2019_NCOV RT-PCR RESULTS DONOT PRECLUDE 2019_NCOV INFECTION ANDSHOULD NOT BE USED THE SOLE BASISFOR PATIENT MANAGEMENT DECISIONS. FIRST TEST NO EMPLOYED IN HLTHCARE NO SYMPTOMATIC NO DATE OF SYMPT ONSET NOT APPLICABLE HOSPITALIZED NO ICU NO CONGREGATE CARE SET NO NOAdditional data: see HPI aboveImaging:Portable CXR:03/10, personally reviewed on the electronic monitor. To my eye: Thelungs are hyperinflated consistent with COPD.Official report:"Comparison: December 2019 Findings: Evaluation of the lung bases is suboptimal because of superimposedcostochondral calcifications. There is no convincing evidence of pneumonia orcongestive heart failure. There is stable linear scarring in the right midlung.The upper lungs are lucent likely related to emphysema. There is no pleuraleffusion or pneumothorax. The cardiac and mediastinal contours are unchangedand within normal limits. Atherosclerotic changes of the aorta. No acute boneabnormality suspected. IMPRESSIONIMPRESSION: Chronic obstructive pulmonary disease. No pneumonia or congestiveheart failure." Patient Active Problem ListDiagnosis Hx of NSTEMI (non-ST elevated myocardial infarction) Hx of Acute on chronic diastolic congestive heart failure Hx of COPD (chronic obstructive pulmonary disease) Hx of Pneumonia due to influenza A virus Hx of PVD (peripheral vascular disease) Hx of WAMPANOAG Hx of legally blind Hx of Hypertension Hx of Hyperlipidemia Hx of GERD (gastroesophageal reflux disease) Hx of Coronary artery disease Hx of Anemia Hx of Ischemia of left lower extremity Hx of Lower extremity pain, left Left groin wound ulcer with graft exposure 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 Per chart purulence was encountered in theoperating room. A portion of the graft was sent to pathology. Debridement andmuscle flap was performed. The patient was on empiric Doxycycline and this waschanged to Empiric Vancomycin. Empric Meropenem was added 03/12Recommendations:1. Given the pt's recent hx, and purulence encountered in the operating room :I agree with empiric antibiotics. However given the patient's age and priorreport of pruritus on prior Vancomycin, I will have a low threshold to change toDaptomycin. Nasal MRSA screen was negative Meropenem should provide broad empiric coverage for anaerobes andgram-negative rods The at least 5-10% risk of renal insufficiency from Vancomycin in the settingwas discussedThe general risks of antibiotics including but not limited to rash, diarrheaincluding but not limited to C. difficile diarrhea, and candidal infections wasdiscussed.The patient will require a PICC line with a Biopatch exchanged weekly, weeklylabs and if feasible while at [facility] outpatient ID follow-up with ID MILL REPRESENTATIVE Maggy,every 2 weeks while on IV antibiotics, then consideration of chronic empiricoral suppression.2. Postoperative wound care and pain control as per vascular surgery3. COPD on chronic home O2 as per vascular surgery4. Hypertension/CAD/diastolic CHF as per vascular surgery5. GERD/GI prophylaxis: As per vascular surgery6. Left leg ulcer care with Santyl as per vascular surgerySignature: Stewart Haines, MDDate: March 12, 2021Time: 9:08 PMPlease note that from 8:20 pm to 9:08 pm was spent reviewing the patientsrecord, interviewing and examining the patient, and speaking with the RN, andsome additional time was spent in discussion with the requesting VascularSurgery JOJO Llanes earlier 03/12/21 Name Value Range Interpretation Code Description Data Lavinia rce(s) Supporting Document(s) ID Date Data Source [id number] 03/12/2021 08:50:00 PM EDT [facility] ([facility]) Name Value Range Interpretation Code Description Data Lavinia rce(s) Supporting Document(s) Laboratory test finding (navigational concept) Laboratory test result [facility] ([facility]) Laboratory [address] [id number]# Surgical Pathology ReportPatient Name: Nguyen Ibarra: 6Accession #:[id number](s) ReceivedA: Old left femoral [...] 03/12/2021Electronically Signed Out By Ashish Camacho M.D. [facility], [place] [id number] component performed at [facility], Histopathology, [address], [place], [address].Reported at [facility], [address], [place], [address]. This report may includeimmunohistochemical or in-situ hybridization results. Testing wasdeveloped and the performance characteristics determined by [facility] as required by Clia '88. The Fda hasdetermined that approval for specific use is not necessary for clinicaluse. The quality of Hematoxylin and Eosin stains and as applicable, forall immunohistochemical and/or special stains, including positive andnegative controls, were reviewed and considered appropriate.Icd codes T82.898Acpt codesA: 73309N ID Date Data Source [id number] 03/12/2021 06:53:32 PM EDT [facility] Name Value Range Interpretation Code Description Data Lavinia rce(s) Supporting Document(s) HGB 9.9 g/dL (12.0-16.0) L [facility] HCT 29.1 % (36.0-47.0) L [facility] ID Date Data Source [id number] 03/12/2021 09:08:57 AM EDT [facility] Name Value Range Interpretation Code Description Data Lavinia rce(s) Supporting Document(s) VANCOMYCIN TROUGH 4.1 ug/mL (10.0-20.0) L [facility] ID Date Data Source [id number] 03/12/2021 06:34:10 AM EDT [facility] Name Value Range Interpretation Code Description Data Lavinia rce(s) Supporting Document(s) SODIUM 141 mmol/L (136-145) [facility] POTASSIUM 4.3 mmol/L (3.6-5.2) [facility] CHLORIDE 106 mmol/L (100-108) [facility] CO2 27 mmol/L (22-31) [facility] ANION GAP 8 mmol/L (7-16) [facility] UREA NITROGEN 13 mg/dL (7-24) [facility] CREATININE 0.74 mg/dL (0.60-1.00) [facility] BUN/CREAT RATIO 17.6 RATIO (10.0-20.0) [facility] GLUCOSE 123 mg/dL (70-99) H [facility] CALCIUM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 [place] THE U.S. FDA HAS MADE THIS TEST AVAILABL EUNDER AN EMERGENCY USE AUTHORIZATION(EUA) FOR THE DETECTION AND/OR DIAGNOSISOF THE VIRUS THAT CAUSES COVID-19.PERFORMED AT [address] [place] [id number] COVID19 RESULT (NDET) [facility] [place] [facility] THIS ASSAY AMPLIFIES AND DETECTSTHE TARG ET RNA USING REAL-TIME PCR.TESTING PERFORMED ON [employer]ID GENEXPERTNEGATIVE 2019_NCOV RT-PCR RESULTS DONOT PRECLUDE 2019_NCOV INFECTION ANDSHOULD NOT BE USED THE SOLE BASISFOR PATIENT MANAGEMENT DECISIONS. FIRST TEST [facility] [place] of [facility] SYMPTOMATIC [facility] [place] of [facility] DATE OF SYMPT ONSET [facility]ITAL[facility]ED [facility] [place] [facility] ICU [facility] [place] of [facility] CONGREGATE CARE SET [facility] [place] [facility] ID Date Data Source [id number] 03/11/2021 09:27:24 AM EDT [facility] [place] [facility] Name Value Range Interpretation Code Description Data Lavinia rce(s) Supporting Document(s) SPECIMEN DESCRIPTION [facility] METH RES STAPH AUR (NEG) [facility] ID Date Data Source [id number] 03/13/2021 02:00:05 PM EDT [facility] [place] of [facility] SPECIMEN DESCRIPTION WOUND LEFT GROINSPECIAL REQUESTS NONECULTURE RESULTS FEW BACTEROIDES FRAGILISREPORT STATUS FINAL 03/13/2021 Name Value Range Interpretation Code Description Data Lavinia rce(s) Supporting Document(s) ID Date Data Source [id number] 03/12/2021 03:53:31 PM EDT [facility] [place] of [facility] SPECIMEN DESCRIPTION NON-SURG SOF T TISSUE SWAB LEFT GROINSPECIAL REQUESTS NONEGRAM STAIN MODERATE (10 TO 25/LPF) WHITE BLOOD CELLS FEW (<10/LPF) EPITHELIAL CELLS NO BACTERIACULTURE RESULTS NO GROWTHREPORT STATUS FINAL 03/12/2021 Name Value Range Interpretation Code Description Data Lavinia rce(s) Supporting Document(s) ID Date Data Source [id number] 03/16/2021 08:52:49 AM EDT [facility] [place] of [facility] SPECIMEN DESCRIPTION PERIPHERALSP ECIAL REQUESTS NONECULTURE RESULTS NO GROWTH 6 DAYSREPORT STATUS FINAL 03/16/2021 Name Value Range Interpretation Code Description Data Lavinia rce(s) Supporting Document(s) ID Date Data Source [id number] 03/16/2021 08:52:49 AM EDT [facility] [place] [facility] SPECIMEN DESCRIPTION PERIPHERALSP ECIAL REQUESTS NONECULTURE RESULTS NO GROWTH 6 DAYSREPORT STATUS FINAL 03/16/2021 Name Value Range Interpretation Code Description Data Lavinia rce(s) Supporting Document(s) ID Date Data Source [id number] 03/14/2021 12:21:32 AM EDT [facility] [place] of [facility] SPEC EXP DATE 03/13/2021ATI ENT ABO/Rh O POSITIVEANTIBODY SCREEN NEGATIVETESTING SITE PERFORMED AT [address] [place] [id number] BANK COMMENT BLOOD TYPE CONFIRMED.UNIT NUMBER [id number] COMPONENT TYPE LEUKOPOOR RED CELLSUNIT DIVISION 00STATUS OF UNIT TRANSFUSEDTRANSFUSION STATUS OK TO TRANSFUSECROSSMATCH RESULT COMPATIBLEUNIT NUMBER [id number] COMPONENT TYPE LEUKOPOOR RED CELLSUNIT DIVISION 00STATUS OF UNIT REL F ROM ALLOCTRANSFUSION STATUS OK TO TRANSFUSECROSSMATCH RESULT COMPATIBLE Name Value Range Interpretation Code Description Data Lavinia rce(s) Supporting Document(s) TYPE AND SCREEN [facility] [place] [facility] ID Date Data Source [id number] 03/10/2021 07:11:54 PM EDT [facility] [place] [facility] Name Value Range Interpretation Code Description Data Lavinia rce(s) Supporting Document(s) SODIUM 142 mmol/L (136-145) [facility] [place] [facility] POTASSIUM 3.9 mmol/L (3.6-5.2) [facility] [place] [facility] CHLORIDE 106 mmol/L (100-108) [facility] [place] [facility] CO2 28 mmol/L (22-31) [facility] [place] [facility] ANION GAP 8 mmol/L (7-16) [facility] [place] [facility] UREA NITROGEN 12 mg/dL (7-24) [facility] [place] [facility] CREATININE 0.64 mg/dL (0.60-1.00) [facility] [place] [facility] BUN/CREAT RATIO 18.8 RATIO (10.0-20.0) [facility] GLUCOSE 118 mg/dL (70-99) H [facility] [place] [facility] CALCIUM 8.4 mg/dL (8.4-10.2) [facility] [place] [facility] TOTAL PROTEIN 6.8 g/dL (6.4-8.2) [facility] [place] [facility] ALBUMIN 3.4 g/dL (3.2-4.5) [facility] [place] [facility] GLOBULIN 3.4 g/dL (2.7-4.3) [facility] [place] [facility] ALB/GLOB RATIO 1.0 RATIO [facility] [place] [facility] ALKALINE PHOSPHATASE 83 U/L (45-117) [facility] BILIRUBIN,TOTAL 0.4 mg/dL (0.0-1.0) [facility] [place] [facility] PLEASE NOTE:Total bilirubin results may be falselyelevated in patients taking Eltrombopag. AST (SGOT) 10 U/L (11-39) L [facility] [place] [facility] ALT (SGPT) 11 U/L (12-78) L [facility] [place] [facility] GFR >60 ml/min/1.73m2 (>59) [facility] [place] [facility] GFR ( AMER) >60 ml/min/1.73m2 (>59) [facility] [place] [facility] GFR INTERPRETATION [facility] --NORMAL KIDNEY FUNCTION OR MILD DISEASE - GFR >OR= 60CHRONIC KIDNEY DISEASE - GFR 15 - 59RENAL FAILURE - GFR <15 Est. GFR calculation based on the MDRDstudy equation, which assumes a steadystate for creatinine. Est. GFR should notbe used for medication dosing. ID Date Data Source [id number] 03/10/2021 06:55:45 PM EDT [facility] Name Value Range Interpretation Code Description Data Lavinia rce(s) Supporting Document(s) APTT 27.9 s (22.0-34.3) [facility] ID Date Data Source [id number] 03/10/2021 06:55:45 PM EDT [facility] Name Value Range Interpretation Code Description Data Lavinia rce(s) Supporting Document(s) PT 11.3 s (9.2-11.9) [facility] INR 1.08 [facility] SUGGESTED THERAPEUTIC RANGES USING INR F ORSTABILIZED ANTICOAGULATED PATIENTS:STANDARD DOSE THERAPY INR 2.0-3.0 DVT, PE, PREVENT DVT OR EMBOLISMHIGH DOSE THERAPY INR 2.5-3.5 PREVENT EMBOLISM FROM MECHANICAL HEART VALVE ID Date Data Source [id number] 03/10/2021 11:14:00 AM EDT [facility] CT P MI WO IV CONTRASTCLINICAL HISTORY: Hisotry of left occuded groin graft.COMPARISON: 01/20/2021.TECHNIQUE: Helical acquisition with axial, coronal, and sagittal reformats.FINDINGS: A cross femoral bypass graft is again seen. The graft patency is not evaluated on this noncontrast study. The previously seen occluded bypass graft to the left popliteal artery now contains a few foci of gas in its proximal aspect. There is abnormal soft tissue density around the proximal aspect of this graft, new since the prior CT, as well as several small foci of gas in the adjacent soft tissues (series 2, image 189). There are stents in the common and external iliac arteries bilaterally. Stents are also seen in the bilateral superficial femoral arteries, not fully included in the lysmc-rn-noah. There is a 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 seroma. No acute intrapelvic abnormality is seen. There is colonic diverticulosis without evidence of acute diverticulitis.IMPRESSION:1. A cross femoral bypass graft is again seen. Graft patency is not evaluated on this noncontrast study.2. The previously seen occluded bypass graft to the left popliteal artery now contains small foci of gas in its proximal aspect with abnormal surrounding soft tissue density as well as small foci of gas in the adjacent soft tissues. Please correlate for recent instrumentation or signs of infection.3. 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 seroma.Dictated by: JOSÉ MIGUEL REYES on 03/10/2021lectronically Signed by: JOSÉ MIGUEL REYES on 03/10/2021 12:25 PMTranscribed by: osman on 03/10/2021 12:25 PMCDS G code: ,CDS Modifier: ,cc: Name Value Range Interpretation Code Description Data Lavinia rce(s) Supporting Document(s) ID Date Data Source [id number] 03/12/2021 09:58:54 AM EDT [facility] [place] [facility] SPECIMEN DESCRIPTION GROIN LEFTSPECIAL REQUESTS NONEGRAM STAIN MODERATE (10 TO 25/LPF) WHITE BLOOD CELLS RARE (<1/LPF) EPITHELIAL CELLS NO BACTERIACULTURE RESULTS FEW NORMAL ZULEIKA CONSISTENT WITH SPECIMEN TYPE NO BETA HEMOLYTIC STREPTOCOCCI ISOLATED NO STAPHYLOCOCCUS AUREUS ISOLATEDNOTE: BIOCHEMICAL IDENTIFICATION SYSTEMS WERE SET UP ON SUSPECTCOLONIES TO R/O PATHOGENS. REPORT STATUS FINAL 03/12/2021 Name Value Range Interpretation Code Description Data [facility] rce(s) Supporting Document(s) ID Date Data Source [id number] 03/10/2021 10:49:00 AM EDT [facility] ([facility]) Name Value Range Interpretation Code Description Data Lavinia rce(s) Supporting Document(s) Bacteria identified in Wound deep by Culture Laboratory test result [facility] ([facility]) <content>SPECIMEN DESCRIPTION SYLWIA IN</content>
<content> LEFT</content>
<content>SPECIAL REQUESTS NONE</content>
<content>GRAM STAIN MODERATE (10 TO 25/LPF) WHITE BLOOD CELLS</content>
<content> RARE (<1/LPF) EPITHELIAL CELLS</content>
<content> NO BACTERIA</content>
<content>CULTURE RESULTS FEW NORMAL ZULEIKA CONSISTENT WITH SPECIMEN TYPE</content>
<content> NO BETA HEMOLYTIC STREPTOCOCCI ISOLATED</content>
<content> NO STAPHYLOCOCCUS AUREUS ISOLATED</content>
<content>NOTE: BIOCHEMICAL IDENTIFICATION SYSTEMS WERE SET UP ON SUSPECT</content>
<content>COLONIES TO R/O PATHOGENS.</content>
<content> </content>
<content>REPORT STATUS FINAL 03/12/2021</content> ID Date Data Source [id number] 03/01/2021 11:34:00 AM EDT [facility] ([facility]) Name Value Range Interpretation Code Description Data [facility] rce(s) Supporting Document(s) Carotid Ultrasound Bilateral Laboratory test result [facility] ([facility]) ID Date Data Source [id number] 02/25/2021 01:59:00 PM EDT [facility] Name Value Range Interpretation Code Description Data Lavinia rce(s) Supporting Document(s) SARS coronavirus 2 RNA [Presence] in Res piratory specimen by STEPH with probe detection NEGATIVE [facility] This lab was ordered by [facility] a nd reported by [facility]. ID Date Data Source [id number] 02/05/2021 07:38:13 PM EDT [facility] INFORMATIONPatient MRN Name Date of Age Gend*PT [id number] Nguyen Ibarra 1935 85 years F IPPT Location Admission Date/Time Visit ID Attending [id number] 01/25/21 1340 --- --- EPI ID CSN Admitting Provider [id number] Isabella Sparrow MD([id number])NAME: Nguyen Ibrahim#: [id number] #: [id number] DATE: 01/28/2021 PT TYPE: C SURACCT #: [id number] : 1935 SEX: femaleReferring Physician:Primary Care Physician: Hugh Urbina, PADISCHARGE DATE: 01/28/2021URGEON: WILLY HongISTANT: NonePREOPERATIVE DX:bilateral lower extremity arterial atherosclerosis with restpain.POSTOPERATIVE DX: bilateral lower extremity arterial atherosclerosis with restpain.PROCEDURE:1.left common femoral artery ultrasound-guided access.2. Aortogram.3. bilateral lower extremity runoff.4.right superficial femoral artery self-expanding stents 6 x 100 mm.5.right superficial femoral artery balloon angioplasty, 5 mm balloon.6.right superficial femoral artery balloon angioplasty, 4 mm drug alludingballoon.7. Completion angiogram.8. Closure of left common femoral artery using Mynx closure device.ANESTHESIA: Monitored sedation (Duration 60 minutes).COMPLICATIONS: None.SPECIMEN: None.ESTIMATED BLOOD LOSS: MinimalINDICATION: This is a 85 years year old female with a history of bilaterallower extremity arterial atherosclerosis with rest pain and was planned forangiogram and possible endovascular intervention.DESCRIPTION OF PROCEDURE: After explaining the procedure to the patient andtaking written consent, the patient was taken to the endovascular suite.Patient was placed under conscious sedation using IV Versed and IV fentanyl.The left common femoral artery was accessed using 5-Andorran micropuncture kit,which was switched to a 5- Andorran sheath into the cross fem bypass.Bilateral leg runoff was done, which showed on the right patent 90% stenosis atthe take off of the cross femoral graft. Patent common femoral, patent profundafemoris artery. The superficial femoral artery has areas of 80% stenosis. Therewas reconstitution of above-knee poplitealartery with a 2-vessel runoff distally. on the Left patent common femoral,patent profunda femoris artery. The superficial femoral artery and poplitealartery are patent with a 2-vessel runoff distally. Patient was given 5000 unitsofheparin and wire access was obtained through the diseased region intothe right above-knee popliteal artery. Right superficial femoral artery wastreated with a self-expanding stents 6 x 100 mm. Right superficial femoralartery balloon angioplasty was done with a 5 mm balloon. Right proximal femoralto femoral artery bypass stenosis was treated with balloon angioplasty, 4 mmdrug alluding balloon.Completion film showed resolution ofthat diseased area, patent popliteal artery with unchanged distal runoff. Thesheath was exchanged for a short 6-Andorran sheath. A Mynxclosure device was used to close the left groin arteriotomy. There was nobleeding or hematoma present. Patient was stable throughout the procedure Jaden was present throughout. Patient had palpable bilateral foot pulse, which shedid not have before.Isabella Sparrow MD Name Value Range Interpretation Code Description Data Lavinia rce(s) Supporting Document(s) ID Date Data Source [id number] 02/05/2021 07:29:27 PM EDT [facility]FORMATIONPatient MRN Name Date of Age Gend*PT [id number] Nguyen Ibarra 1935 85 years F IPPT Location Admission Date/Time Visit ID Attending [id number] 01/25/21 1340 --- --- EPI ID CSN Admitting Provider [id number] Isabella Sparrow MD([id number])NAME: Nguyen Ibrahim#: [id number] #: [id number] DATE: 01/26/2021 PT TYPE: C SURACCT #: [id number] : 1935 SEX: femaleReferring Physician:Primary Care Physician: SHANICE MorrisonISCHHARJINDER DATE: 01/26/2021URGEON: Isabella Sparrow MDASSISTANT: NonePREOPERATIVE DX: bilateral lower arterial atherosclerosis with rest pain.POSTOPERATIVE DX:bilateral lower arterial atherosclerosis with rest pain.PROCEDURE:1.left brachial artery cutdown.2. Aortogram.3. Right superficial femoral artery balloon angioplasty, 4 mm balloon.4. Completion angiogram.5. Primary closure of left brachial artery cutdown.ANESTHESIA: Monitored sedation (Duration 90 minutes).COMPLICATIONS: None.SPECIMEN: None.ESTIMATED BLOOD LOSS: MinimalINDICATION: This is a 85 years year old female with a history of bilaterallower arterial atherosclerosis with rest pain and was planned for angiogram andpossible endovascular intervention.DESCRIPTION OF PROCEDURE: After explaining the procedure to the patient andtaking written consent, the patient was taken to the endovascular suite.Patient was placed under conscious sedation using IV Versed and IV fentanyl.A 3 cm incision was made in the left anti brachial fossa. 1% lidocaine was usedfoe anesthetic. Cirmcumferential dissection was done of the left brachialartery. Patient was given 5000 units of heparin. The left brachial artery wasaccessed using 5-Andorran micropuncture kit, which was switched to a 5- Frenchsheath and Omni flush catheter was placed into the aorta.Aortogram was performed, which showed patent distal aorta,patent right common, internal, and external iliac artery. Left iliac system isoccluded as before. There is 70% stenosis present in the proximal superficialartery with a femoral to femoral bypass with a 90% proximal stenosis.Wire access was obtained through the diseased region. Balloon angioplasty wasdone with 4 mm balloon of the proximal superficial femoral artery. Completionfilm showed resolution ofthat diseased area, unchanged proximal stenosis of the cross femoral graft. Thiswill be treated at later date from left groin access.Sheath was removed. Arteriotomy was closed using interrupted 6-0 prolenesutures. Wound was closed using 3-0 Vicryl and 4-[address] [place] ordonez and [id number] were used for dressing. Patient was stable throughout the procedure and Iwas present throughout.Isabella Sparrow MD Name Value Range Interpretation Code Description Data Lavinia rce(s) Supporting Document(s) ID Date Data Source [id number] 01/29/2021 06:53:59 PM EDT [facility]FORMATIONPatient MRN Name Date of Age Gend*PT [id number] Tony Nguyen J 1935 85 years F IPPT Location Admission Date/Time Visit ID Attending [id number] 01/25/21 1340 --- --- EPI ID CSN Admitting Provider [id number] Isabella Sparrow MD([id number]) Attestation signed by Isabella Sparrow MD at 01/29/2021 6:53 PMI saw and evaluated the patient and reviewed note. I agree with the history,physical and medical decision makingSignature: HANG Hongate: January 29, 2021Time: 6:53 PM --Surgical Discharge SummarySumauricio Garibay [facility] CenterN: [id number] date: 01/25dmitting Physician: HANG Hongischarge date and time:Discharge Orders Placed(From admission, onward) NoneDischarge Physician: Debra Conn Diagnosis: Lower extremity pain, leftSecondary Diagnoses:Active Hospital Problems Diagnosis Date Noted Lower extremity pain, left 01/25/2021 Hypertension GERD (gastroesophageal reflux disease) Hyperlipidemia Coronary artery disease f/u by Dr. Yassine [place] (peripheral vascular disease) 12/24/2019 COPD (chronic obstructive pulmonary disease) 11/03/2016Resolved Hospital ProblemsNo resolved problems to display.Discharge Medications:Your medication listASK your doctor about these medications Instructions Last Dose Given Morning Afternoon Evening Bedtime As Neededalbuterol 108 (90 Base) MCG/ACT inhalerCommonly known as: PROVENTIL HFA;VENTOLIN HFA Inhale 2 puffs 4 (four) times a day as needed for wheezingaspirin EC 81 MG EC tablet Take 81 mg by mouth dailyatorvastatin 40 MG tabletCommonly known as: LIPITOR Take 40 mg by mouth nightlycarvedilol 3.125 MG tabletCommonly known as: COREG Take 3.125 mg by mouth 2 (two) times a daycholecalciferol 25 MCG (1000 UT) capsuleCommonly known as: V ITAMIN D3 Take 1,000 Units by mouth nightlyclopidogrel 75 MG tabletCommonly known as: PLAVIX Take 75 mg by mouth dailydocusate sodium 100 MG capsuleCommonly known as: COLACE Take 100 mg by mouth dailyferrous sulfate 325 (65 FE) MG tablet Take 325 mg by mouth dailyfluticasone-salmeterol 500-50 MCG/DOSE DISKUSCommonly known as: ADVAIR Inhale 1 puff 2 (two) times a dayfurosemide 20 MG tabletCommonly known as: LASIX Take 20 mg by mouth dailygabapentin 100 MG capsuleCommonly known as: NEURONTIN Take 200 mg by mouth 2 (two) times a dayipratropium-albuterol 0.5-2.5 mg/mL nebulizerCommonly known as: DUO-NEB Inhale 3 mL every 6 (six) hours as needed (for shortness of breath)lisinopril 2.5 MG tabletCommonly known as: PRINIVIL,ZESTRIL Take 2.5 mg by mouth nightlynitroglycerin 0.4 MG SL tabletCommonly known as: NITROSTAT Place 0.4 mg under the tongue every 5 (five) minutes as needed for chest painoxyCODONE- acetaminophen 5-325 MG per tabletCommonly known as: PERCOCET Take 1-2 tablets by mouth every 4 (four) hours as needed for painpantoprazole 40 MG tabletCommonly known as: PROTONIX Take 40 mg by mouth dailypotassium chloride 10 MEQ CR capsuleCommonly known as: MICRO-K Take 10 mEq by mouth 2 (two) times a dayPRESERVISION AREDS PO Take 1 tablet by mouth nightlySpiriva Respimat 2.5 MCG/ACT AersGeneric drug: Tiotropium [place] Monohydrate Inhale 1 puff dailyTYLENOL PM EXTRA STRENGTH PO Take 1 tablet by mouth nightly as needed (for sleep)Indication for Admission: PAD with LLE pain.Hospital Course & Complications: The patient was admitted to the hospital on01/25 with a diagnosis of PAD and LLE pain. She was started on a Heparin drip.She went to Interventional Radiology with Dr Sparrow the following day undergoing abrachial cutdown with angiogram. Her inflow and outflow were opened to the RLE.She was t ransferred to the floor and monitored. There was a significant stenosis at the origin of the right to left crossfemoral bypass.. The patient was transferred back to the floor. On 01/28 [address]patient [address] back IR. Dr Sparrow preformed an angiogram through the occludedfemoral pop. The patient had successful right SFA stenting and graft angioplastywith drug alluding balloon. The patient was transferred back to the floor.On 01/29, the patient was stable for discharge. She was having reperfusionneuropathy and her Gabapentin was increased. Additionally, her left leg whilethe erythema and edema was overall improved, had some crusting noted to an areathat was honey colored from prior weeping and an area or erythema that wasconcerning for an early cellulitis. She was started on Doxycycline and willfollow up in the office.Past Medical History:Past Medical History:Diagnosis Date Acute on chronic diastolic congestive heart failure 11/03/2016 Anemia Carotid artery occlusion COPD (chronic obstructive pulmonary disease) 11/03/2016 uses 2L oxygen at night Coronary artery disease f/u by Dr. Yassine WILDER (gastroesophageal reflux disease) Heart valve disease Hiatal hernia History of GI bleed [place] (hard of hearing) Hyperlipidemia Hypertension Macular degeneration NSTEMI (non-ST elevated myocardial infarction) 11/03/2016 Osteoarthritis Peripheral vascular disease Pneumonia due to influenza A virus 11/03/2016 Stroke TIA (transient ischemic attack)Surgical Procedures:* No surgery found *Significant Diagnostic Studies:BMP:Lab ResultsComponent Value Date NA 146 (H) 01/29/2021 K 4.1 01/29/2021 CL 112 (H) 01/29/2021 CO2 28 01/29/2021 ANIONGAP 6 (L) 01/29/2021 CALCIUM 8.4 01/29/2021 GLU 108 (H) 01/29/2021 BUN 15 01/29/2021 CREATININE 0.82 01/29/2021 GFRAA >60 01/29/2021 GFRNONAA >60 01/29/2021BC Brief:Lab ResultsComponent Value Date WBC 7.0 01/29/2021 HGB 8.6 (L) 01/29/2021 HCT 26.0 (L) 01/29/2021 PLT 173 01/29/2021Treatments: antibiotics: doxycycline, analgesia: norco, cardiac meds: lisinopril(generic), carvedilol and furosemide, anticoagulation: ASA and Plavix andrespiratory therapy: albuterol/atropine nebulizerDischarge Exam:Vitals: Temp: [97.4 F-98.2 F] 97.5 FHeart Rate: [72-89] 84Resp: [12-30] 18BP: (100-132)/(47-88) 132/60General: Appears comfortable sitting in the chair.Dressing: Left arm cutdown dressing dry. Mynx to left groin dry. .Wound: Healing Well . Surrounding ecchymosis.Heart: Regular rate and rhythm S1-S2 w sophie.Lungs: CTA bilaterally throughout without wheezes rales or rhonchi.Abdomen: Soft NT, +BSExtremities: Her legs are improved today. Less edema and erythema. She has theulceration to the distal left leg that is covered and was just dressed. Slightarea of erythema around the wound there was also an area of crusting to theanterior left stout.Skin: Warm. As above lower extremities are less erythematous.Neuro: Alert and oriented. Able to plantarflex and dorsiflex her feetbilaterally.PV : Left with DP/PT by doppler. Right with DP/PT by doppler.Items needing special attention:Discharged Condition:stableDisposition: Home or Self CareSignature: SHANICE Connate: January 29, 2021Time: 12:56 PM Name Value Range Interpretation Code Description Data Lavinia rce(s) Supporting Document(s) ID Date Data Source [id number] 01/29/2021 10:59:00 AM EDT [facility] ([facility]) Name Value Range Interpretation Code Description Data Lavinia rce(s) Supporting Document(s) Sodium [Moles/volume] in Serum or Plasma 146 mmol/L 136-145 [facility] ([facility]) Potassium [Moles/volume] in Serum or Plasma 4.1 mmol/L 3.6-5.2 [facility] Chloride [Moles/volume] in Serum or Plasma 112 mmol/L 100-108 [facility]) Anion gap in Serum or Plasma 6 mmol/L 7-16 [facility] ([facility]) Urea nitrogen [Mass/volume] in Serum or Plasma 15 mg/dL 7-24 [facility] ([facility]) Carbon dioxide, total [Moles/volume] in Serum or Plasma 28 mmol/L 22 -31 [facility] ([facility]) Urea nitrogen/Creatinine [Mass Ratio] in Serum or Plasma 18.3 1 0.0-20.0 [facility] ([facility]) Glucose [Mass/volume] in Serum or Plasma 108 mg/dL 70-99 [facility] ([facility]) Creatinine [Mass/volume] in Serum or Plasma 0.82 mg/dL 0.60-1.00 [facility] ([facility]) Glomerular filtration rate/1.73 sq M pre dicted among non-blacks [Volume Rate/Area] in Serum or Plasma by Creatinine-based formula (MDRD) Laboratory test result [facility] ([facility]) Calcium [Mass/volume] in Serum or Plasma 8.4 mg/dL 8.4-10.2 [facility] ([facility]) Glomerular filtration rate/1.73 sq M pre dicted among blacks [Volume Rate/Area] in Serum or Plasma by Creatinine-based formula (MDRD) Laboratory test result [facility] ([facility]) Glomerular filtration rate/1.73 sq M pre dicted among non-blacks [Volume Rate/Area] in Serum or Plasma by Creatinine-based formula (MDRD) Laboratory test result [facility] ([facility]) -- NORMAL KIDNEY FUNCTION OR MILD DISEASE - GFR >OR= 60 CHRONIC KIDNEY DISEASE - GFR 15 - 59 RENAL FAILURE - GFR <15 Est. GFR calculation based on the MDRD study equation, which assumes a steady state for creatinine. Est. GFR should not be used for medication dosing. ID Date Data Source [id number] 01/29/2021 10:40:00 AM EDT [facility] ([facility]) Name Value Range Interpretation Code Description Data Lavinia rce(s) Supporting Document(s) Leukocytes [#/volume] in Blood by Automated count 7.0 10*3/uL 4.10-11 .00 [facility] ([facility]) Hemoglobin [Mass/volume] in Blood 8.6 g/dL 12.0-16.0 [facility] ([facility]) Erythrocytes [#/volume] in Blood by Automated count 2.69 10*6/uL 4.00 -5.40 [facility] ([facility]) Hematocrit [Volume Fraction] of Blood by Automated count 26.0 % 3 6.00-47.00 [facility] ([facility]) Erythrocyte mean corpuscular hemoglobin [Entitic mass] by Automated count 31.9 pg 27.0-32.0 [facility] ([facility]) Erythrocyte mean corpuscular volume [Entitic volume] by Auto mated count 96.7 fL 80.0-95.0 [facility] ([facility] ) Platelets [#/volume] in Blood by Automated count 173 10*3/uL 150-450 [facility] ([facility]) Erythrocyte mean corpuscular hemoglobin concentration [Mass/volume] by Automated count 33.0 g/dL 32-36 [facility] ([facility]) Erythrocyte distribution width [Ratio] by Automated count 15.5 % 10.5-14.5 [facility] ([facility]) Platelet mean volume [Entitic volume] in Blood by Terrance-Ronen 7.3 fL 7.1-10.7 [facility] ([facility]) ID Date Data Source [id number] 01/29/2021 06:59:38 AM EDT [facility] Name Value Range Interpretation Code Description Data Lavinia rce(s) Supporting Document(s) SODIUM 146 mmol/L (136-145) H [facility] POTASSIUM 4.1 mmol/L (3.6-5.2) [facility] CHLORIDE 112 mmol/L (100-108) H [facility] CO2 28 mmol/L (22-31) [facility] ANION GAP 6 mmol/L (7-16) L [facility] UREA NITROGEN 15 mg/dL (7-24) [facility] CREATININE 0.82 mg/dL (0.60-1.00) [facility] BUN/CREAT RATIO 18.3 RATIO (10.0-20.0) [facility] GLUCOSE 108 mg/dL (70-99) H [facility] CALCIUM 8.4 mg/dL (8.4-10.2) [facility] GFR >60 ml/min/1.73m2 (>59) [facility] GFR ( AMER) >60 ml/min/1.73m2 (>59) [facility] GFR INTERPRETATION [facility] --NORMAL KIDNEY FUNCTION OR MILD DISEASE - GFR >OR= 60CHRONIC KIDNEY DISEASE - GFR 15 - 59RENAL FAILURE - GFR <15 Est. GFR calculation based on the MDRDstudy equation, which assumes a steadystate for creatinine. Est. GFR should notbe used for medication dosing. ID Date Data Source [id number] 01/29/2021 06:40:59 AM EDT [facility] Name Value Range Interpretation Code Description Data Lavinia rce(s) Supporting Document(s) WBC 7.0 10*3/uL (4.1-11.0) [facility] RBC 2.69 10*6/uL (4.00-5.40) L [facility] HGB 8.6 g/dL (12.0-16.0) L [facility] HCT 26.0 % (36.0-47.0) L [facility] MCV 96.7 fL (80.0-95.0) H [facility] MCH 31.9 pg (27.0-32.0) [facility] MCHC 33.0 g/dL (32.0-36.0) [facility] RDW 15.5 % (10.5-14.5) H [facility] PLT 173 10*3/uL (150-450) [facility] MPV 7.3 fL (7.1-10.7) [facility] ID Date Data Source [id number] 01/28/2021 09:53:46 AM EDT [facility] Name Value Range Interpretation Code Description Data Lavinia rce(s) Supporting Document(s) IR IS ABDOMINAL ANGIOGRAM [facility] ID Date Data Source [id number] 01/28/2021 08:10:30 AM EDT [facility] Name Value Range Interpretation Code Description Data Lavinia rce(s) Supporting Document(s) SODIUM 144 mmol/L (136-145) [facility] POTASSIUM 3.8 mmol/L (3.6-5.2) [facility] CHLORIDE 109 mmol/L (100-108) H [facility] CO2 28 mmol/L (22-31) [facility] ANION GAP 7 mmol/L (7-16) [facility] UREA NITROGEN 16 mg/dL (7-24) [facility] CREATININE 0.79 mg/dL (0.60-1.00) [facility] BUN/CREAT RATIO 20.3 RATIO (10.0-20.0) H [facility] GLUCOSE 112 mg/dL (70-99) H [facility] CALCIUM 8.2 mg/dL (8.4-10.2) L [facility] GFR >60 ml/min/1.73m2 (>59) [facility] GFR ( AMER) >60 ml/min/1.73m2 (>59) [facility] GFR INTERPRETATION [facility] --NORMAL KIDNEY FUNCTION OR MILD DISEASE - GFR >OR= 60CHRONIC KIDNEY DISEASE - GFR 15 - 59RENAL FAILURE - GFR <15 Est. GFR calculation based on the MDRDstudy equation, which assumes a steadystate for creatinine. Est. GFR should notbe used for medication dosing. ID Date Data Source [id number] 01/28/2021 07:44:00 AM EDT [facility] Name Value Range Interpretation Code Description Data [facility](s) Supporting Document(s) WBC 7.1 10*3/uL (4.1-11.0) [facility] [place] RBC 2.57 10*6/uL (4.00-5.40) L [facility] HGB 8.4 g/dL (12.0-16.0) L [facility] HCT 24.8 % (36.0-47.0) L [facility] MCV 96.5 fL (80.0-95.0) H [facility] MCH 32.5 pg (27.0-32.0) H [facility] MCHC 33.7 g/dL (32.0-36.0) [facility] RDW 15.4 % (10.5-14.5) H [facility] PLT 191 10*3/uL (150-450) [facility] MPV 7.2 fL (7.1-10.7) [facility] ID Date Data Source [id number] 01/27/2021 07:43:29 AM EDT [facility] Name Value Range Interpretation Code Description Data Lavinia rce(s) Supporting Document(s) SODIUM 142 mmol/L (136-145) [facility] POTASSIUM 4.0 mmol/L (3.6-5.2) [facility] CHLORIDE 107 mmol/L (100-108) [facility] CO2 29 mmol/L (22-31) [facility] ANION GAP 6 mmol/L (7-16) L [facility] UREA NITROGEN 13 mg/dL (7-24) [facility] CREATININE 0.71 mg/dL (0.60-1.00) [facility] BUN/CREAT RATIO 18.3 RATIO (10.0-20.0) [facility] GLUCOSE 100 mg/dL (70-99) H [facility] CALCIUM 8.7 mg/dL (8.4-10.2) [facility] GFR >60 ml/min/1.73m2 (>59) [facility] GFR ( AMER) >60 ml/min/1.73m2 (>59) [facility] GFR INTERPRETATION [facility] --NORMAL KIDNEY FUNCTION OR MILD DISEASE - GFR >OR= 60CHRONIC KIDNEY DISEASE - GFR 15 - 59RENAL FAILURE - GFR <15 Est. GFR calculation based on the MDRDstudy equation, which assumes a steadystate for creatinine. Est. GFR should notbe used for medication dosing. ID Date Data Source [id number] 01/27/2021 07:15:07 AM EDT [facility] Name Value Range Interpretation Code Description Data Lavinia rce(s) Supporting Document(s) WBC 8.0 10*3/uL (4.1-11.0) [facility] [place] RBC 2.96 10*6/uL (4.00-5.40) L [facility] HGB 9.5 g/dL (12.0-16.0) L [facility] HCT 28.2 % (36.0-47.0) L [facility] MCV 95.4 fL (80.0-95.0) H [facility] MCH 32.2 pg (27.0-32.0) H [facility] MCHC 33.8 g/dL (32.0-36.0) [facility] RDW 15.1 % (10.5-14.5) H [facility] PLT 220 10*3/uL (150-450) [facility] MPV 7.1 fL (7.1-10.7) [facility] ID Date Data Source [id number] 01/26/2021 05:33:31 PM EDT [facility] Name Value Range Interpretation Code Description Data Lavinia rce(s) Supporting Document(s) IR IS ARTERIOGRAM EXTREMITY SINGLE LEFT [facility] ID Date Data Source [id number] 01/26/2021 06:38:10 AM EDT [facility] Name Value Range Interpretation Code Description Data Lavinia rce(s) Supporting Document(s) EKG [facility] CLZSPq5nUrYAZoVio6YrHoPgVFZtVT9syqi9A1R1zPVcG6GtiXUsc5ioK5VsY7XeNLJbUNKSEL4UiNZo jb2 [file] Ns/P7+429fLb+8/e3+uaYDq1arC4jsD38luZh/B8TmbJw87wH3oeJ2//rubén/S//8/bnz1x+rGWk3LK2ss G62hZN848X1iDW67zjn//25fYa9e0vlh2zBaRS++7u 7Fg81kmxzA1pT2n1rKlE2czh///vtG70W1U/fRIb6loE4crz4ypN6/pBhTV46v3/3v/65/Q/6r7P3a2n 1w2us2F8cmYGmzXYDh5+8ejoMQ/P7z+8/fnBDPcH/MXb39+9/oR3qaE7OPtoB20+oN2O4MVOcrt//fTu JSvCVg2A08Sp/49k6Brws2+1mAHAfsTd/bt/fXz/7j SMs+XRUWazoaN+/e2UVT+e0LZ4jmRu0Grw37n/eb+E5dM/T0069P4G5GyIj7BySQ9Zp0r7S6x5A4dNvs r7naD1x4c1Q976pynZHv5w4zKZtn7fzz9aqt4/w5Ux0o0LPn+ajfaczzZvrKTkRR9PUJ5na4DkFdU6JS Srz9UyWOpnKHz8mJGsNQytzzIjd3RukyeqC3Ilw7Ss BxTrAEOaGqPfFan4GNTlEnT6vDPcFxMbWYDgS8OdBVDmKwY6YzHsZFUEEK4NAONogqHhSzBzAHT+PmVu BB2urspxWPRkn6YrZKfeJLdlDKRdR5J8pNqpULNpL7UlsV41SFSzY0EtjiB3QXV4CQArUuLjKCMbsZUk OSAwIFI+YaWkOS1spygjRLKbn0TuTIleWNA2xF6xWW xZLQDYSYqHCAfsRgA3i07thvNTSUJzPYPqZK2UrxEkkRhiqkVfbPBtGQF9MzHaLUC7WeLiAfJ1ZMTGIL KzNSEaYSUqDCFjP0AhzTyvULyQYZLZFGvWIGwpTrCrf2V9CPZkngDPVoQKWOzuR7OtAD2SXHNcVOXuCN U5SItdKN8EkRPiVYW5WHsFAIRBHHzPVPgdEyJsj7G9 QFEqD5FeSFNlvqUxHHFNCUjdHgtbXM8wvXozjygnG8MwuORdHCBLXWFdHUPgSVIcBSUnG6Wha5Q3F5Yt KTzCZSLDJKoSNLqeOpO4x28vsvGUHUBpAFWzJP3+GJ4pu6QdGk3NWHVzEJ1dfcy4VZ7AnYUuHE4DQHwf hdQoZ2pvigMgYmWuNQHOSF1jE1LjmC14RTL+PmVuZG 4agod3iiRxRvSxUHPmUGDnMUKfGLhsGQDpHGXrEUMdCLE9VMR9OXFjXbHaZPCiDKHyLvAkXPRjEKKabc VWHSAhQKC5Ibe0OMLbHLTuGLCcZDxhRANmFRi7FAB9OTVwKLGyUQ5uDtRjCXSbPMHyZITyYtR8JxKdHz AKMDAwMDAwMDAxNiAwMDAwMCBuIAowMDAwMDAwMDc5 QUTsICHvYF2oQeHbOFLcQTWuVZByQLOpSOUggpVREYFxLWLcKUT0SSFcEFYzQFCgNUggSYWkEVUsRQT0 MJVtXZMvYG9kBpHvICGiCCM0WzThGSMgYJKurmUKKXWnVJQkIDI1NDElPBYuYGPaDPhlWARzUQVlLzP3 VMUgHLQqXH5jJwGwKRIxOLT8QBZbOAHtXKYyqdJVPT OkHWUhHMj5EoOtIRDbGWRfTUveLMZvZWSsHPohRZTsMGXqWF2iJxUbUBYtLXOlWKWcYBOnYXDmtoLQOZ BgENLgEJL1VpJgVHTyVCKnYGljZCZeVXUnVRK1OFPkKBMsUE7mBmTxCGCbKFZ6JSEzNICyAKFyojEKBL JeAKPuPNIeBYMoOOXnXEUsHDdnRRIgYQKyGjS7JHGl JUDhPP9yElFoEFXgHFQ3MFKiHPUhJWSyibIVMVUmLZHgRWHqTWC7BLWkWQBfTFn9wrWugGRdUun0Kk5N jQcsAOL9Em7GexXlNTOsLDQEOs1Na381DPBcJVGIYgq+IlpzlIUvwNhoWEDERTFuSAdMZFNJA4K= ID Date Data Source [id number] 01/26/2021 05:33:43 AM EDT [facility] Name Value Range Interpretation Code Description Data Lavinia rce(s) Supporting Document(s) SODIUM 142 mmol/L (136-145) [facility] POTASSIUM 4.7 mmol/L (3.6-5.2) [facility] CHLORIDE 107 mmol/L (100-108) [facility] CO2 29 mmol/L (22-31) [facility] ANION GAP 6 mmol/L (7-16) L [facility] UREA NITROGEN 16 mg/dL (7-24) [facility] CREATININE 0.75 mg/dL (0.60-1.00) [facility] BUN/CREAT RATIO 21.3 RATIO (10.0-20.0) H [facility] GLUCOSE 98 mg/dL (70-99) [facility] CALCIUM 8.5 mg/dL (8.4-10.2) [facility] GFR >60 ml/min/1.73m2 (>59) [facility] GFR ( AMER) >60 ml/min/1.73m2 (>59) [facility] GFR INTERPRETATION [facility] --NORMAL KIDNEY FUNCTION OR MILD DISEASE - GFR >OR= 60CHRONIC KIDNEY DISEASE - GFR 15 - 59RENAL FAILURE - GFR <15 Est. GFR calculation based on the MDRDstudy equation, which assumes a steadystate for creatinine. Est. GFR should notbe used for medication dosing. ID Date Data Source [id number] 01/26/2021 05:11:06 AM EDT [facility] Name Value Range Interpretation Code Description Data Lavinia rce(s) Supporting Document(s) WBC 5.9 10*3/uL (4.1-11.0) [facility] [place] RBC 2.83 10*6/uL (4.00-5.40) L [facility] HGB 9.1 g/dL (12.0-16.0) L [facility] HCT 27.2 % (36.0-47.0) L [facility] MCV 96.1 fL (80.0-95.0) H [facility] MCH 32.1 pg (27.0-32.0) H [facility] MCHC 33.4 g/dL (32.0-36.0) [facility] RDW 15.1 % (10.5-14.5) H [facility] PLT 221 10*3/uL (150-450) [facility] MPV 6.7 fL (7.1-10.7) L [facility] ID Date Data Source [id number] 01/25/2021 09:58:00 PM EDT [facility] Name Value Range Interpretation Code Description Data Lavinia rce(s) Supporting Document(s) Specimen Expiration Date Laboratory test result [facility] ([facility]) Patient Abo/Rh Laboratory test result ME ANN-MARIE ([facility]) Testing site Laboratory test result MEDE NT ([facility]) Blood bank comment [facility] BLOOD TYPE CONFIRMED. Antibody Screen Laboratory test result M MARILYN ([facility]) ID Date Data Source [id number] 01/25/2021 07:41:00 PM EDT [facility] Name Value Range Interpretation Code Description Data Lavinia rce(s) Supporting Document(s) INR in Platelet poor plasma by Coagulation assay 1.07 [facility] ([facility]) SUGGESTED THERAPEUTIC RANGES USING INR F OR STABILIZED ANTICOAGULATED PATIENTS: STANDARD DOSE THERAPY INR 2.0-3.0 DVT, PE, PREVENT DVT OR EMBOLISM HIGH DOSE THERAPY INR 2.5-3.5 PREVENT EMBOLISM FROM MECHANICAL HEART VALVE Prothrombin time (PT) in control Platelet poor plasma by Coagulation assay 11.2 s 9.20-11.90 [facility] ([facility]) ID Date Data Source [id number] 01/25/2021 07:41:00 PM EDT [facility] ([facility] Name Value Range Interpretation Code Description Data Lavinia rce(s) Supporting Document(s) aPTT in Platelet poor plasma by Coagulation assay 24.7 s 22.0-34. 3 [facility] ([facility]) ID Date Data Source [id number] 01/25/2021 07:11:00 PM EDT [facility] ([facility]) Name Value Range Interpretation Code Description Data Lavinia rce(s) Supporting Document(s) Specimen Description Laboratory test result [facility] ([facility]) Influenza virus A Ab [Titer] in Serum by Complement fi xation Laboratory test result [facility] ([facility]) Laboratory comment [Text] in Report Narrative Laboratory test result [facility] ([facility]) SEE NOTE: THE U.S. FDA HAS MADE THIS SAMI T AVAILABLE UNDER AN EMERGENCY USE AUTHORIZATION (EUA) FOR THE DETECTION AND/OR DIAGNOSIS OF THE VIRUS THAT CAUSES COVID-19. PERFORMED AT [address] [place] [address] Influenza virus B Ab [Titer] in Serum by Complement fi xation Laboratory test result [facility] ([facility]) Respiratory syncytial virus Ab [Titer] in Serum by Com plement fixation Laboratory test result [facility] ([facility]) Laboratory test finding (navigational concept) Laboratory test result [facility] ([facility]) THIS ASSAY AMPLIFIES AND DETECTS THE TAR GET RNA USING REAL-TIME PCR. TESTING PERFORMED ON [email or web address] GENEUndeskPERT NEGATIVE 2019_NCOV RT-PCR RESULTS DO NOT PRECLUDE 2019_NCOV INFECTION AND SHOULD NOT BE USED THE SOLE BASIS FOR PATIENT MANAGEMENT DECISIONS. First Test Laboratory test result [facility] ([facility]) Illness or injury onset date and time Laboratory test result [facility] ([facility]) Symptomatic Laboratory test result MEDEN T ([facility]) Employed In [facility] Laboratory test result [facility] ([facility]) Hospitalized Laboratory test result [facility] NT ([facility]) Icu Laboratory test result [facility] ([facility]) Laboratory test result [facility] test result [facility]) ID Date Data Source [id number] 01/25/2021 05:53:21 PM EDT [facility] INFORMATIONPatient MRN Name Date of Age Gend*PT [id number] Nguyen Ibarra 1935 85 years F IPPT Location Admission Date/Time Visit ID Attending [id number] 01/25/21 1340 --- Isabella Sparrow MD([id number]) EPI ID CSN Admitting Provider [id number] Isabella Sparrow MD([id number]) Attestation signed by Isabella Sparrow MD at 01/25/2021 5:53 PMI saw and evaluated the patient and reviewed note. I agree with the history,physical and medical decision makingSignature: Isabella Sparrow MDDate: January 25, 2021Time: 5:53 PM ---------Inpatient History & PhysicalSumauricio IbarraManjit:[id number] and Plan:Active Problems: COPD (chronic obstructive pulmonary disease) PVD (peripheral vascular disease) Hypertension Hyperlipidemia GERD (gastroesophageal reflux disease) Coronary artery disease1. PVD, LLE pain-Admit to vascular service under Dr. Sparrow-Plan for angio tomorrow-NPO at midnight- Santyl to ulcerated area-Labs pending-DP/PT to RLE, DP to LLE-ASA/Plavix-Gabapentin for pain-hydrocodone prn2. COPD-Ventolin prn-Home inhalers continued3. HTN/CAD/HLD-Coreg, furosemide,lisinopril-PRN ntg- atorvastatin4. GI prophylaxis/GERD-protonix5. DVT prophylaxis-Heparin sqFurther plan pending lab results and per Dr. Barreto Complaint: "My left leg really hurts"HPI:85 year old female presents to [facility] for planned admission to the vascular serviceunder Dr. Sparrow. She has an extensive vascular history and most recentlyunderwent an angio with left SFA stent placement.Unfortunately her pain has not improved and has progressively becomedebilitating. Her only relief comes with dangling her legs in a dependentposition and has taken to sleeping upright in a chair.She also has a nonhealing wound to her left anterior stout that she has beenapplying aquacel dressing to per Dr. Sparrow's instruction. Over the last severalweeks her legs have become more edematous and very tender to touch.She has a significant history of interventions in her left leg. Vascular hx ofangioplasty and stent to bilateral IVELISSE, right EIA in June 2018. She isstatus post left PFA/SFA endarterectomy with Xenosure patch angioplasty leftEIA, CASH APPLICATIONS CLERK, PFA and SFA in March 2019. She then had left EIA stent left CFAangioplasty in July 2019. Status post left femoral and SFA endarterectomywith cross them BPG from right SFA to left SFA, stent in the SFA x2 in December 2019.Subsequently right SFA stent and angioplasty was done in March 2020 she thenunderwent bypass graft from cross femoral in the left lower extremity toabove-knee popliteal artery with propatent in April 2020 her bypass graftthen subsequently occluded and she is now status post redo left lower extremityfemoropopliteal bypass graft with CryoVein in October 2020.She denies any recent illnesses including fevers, chills, chest pain, shortnessof breath, nausea, vomiting, diarrhea.Past Medical History:Past Medical History:Diagnosis Date Acute on chronic diastolic congestive heart failure 11/03/2016 Anemia Carotid artery occlusion COPD (chronic obstructive pulmonary disease) 11/03/2016 uses 2L oxygen at night Coronary artery disease f/u by Dr. Metzger GERD (gastroesophageal reflux disease) Heart valve disease Hiatal hernia History of GI bleed [place] (hard of hearing) Hyperlipidemia Hypertension Macular degeneration NSTEMI (non-ST elevated myocardial infarction) 11/03/2016 Osteoarthritis Peripheral vascular disease Pneumonia due to influenza A virus 11/03/2016 Stroke TIA (transient ischemic attack)Past Surgical History:Past Surgical History:Procedure Laterality Date Angioplasty and stenting Left external iliac artery stenting, left common femoral artery angioplasty COLONOSCOPY CORONARY STENT PLACEMENT 2012 x2 FEMORAL ENDARTERECTOMY Left Femoral endarterectomy with patch Left 2019 Iliac Endarterectomy Left 2019 Left profunda femoris artery endarterectomy UPPER GASTROINTESTINAL ENDOSCOPY VASCULAR SURGERY Left 12/26/2019 Procedure: RIGHT TO LEFT FEMORAL ARTERIAL BYPASS, , FEMORAL ENDARTERECTOMYLEFT, INTRAOPERATIVE ANGIOGRAM LEFT W/ SUPERFICAL ARTERIAL STENT; Surgeon: MD Vicky; Laterality: Left; VASCULAR SURGERY Left 04/28/2020 Procedure: CROSS FEMORAL TO ABOVE POPLITEAL ARTERY BYPASS OPERATIVEARTERIOGRAM; Surgeon: Zuhair Levine MD; Laterality: Left; VASCULAR SURGERY Left 10/20/2020 Procedure: LEFT ARTERIAL FEMORAL TO Popliteal BYPASS WITH CRYOVEIN; Surgeon:Zuhair Levine MD; Laterality: Left;Medications:(Not in a hospital admission)Allergies:Ciprofloxacin, Penicillins, and VancomycinFamily History:Family HistoryProblem Relation Age of Onset Diabetes Mother Heart disease Father Heart disease Brother Malig Hyperthermia Neg HxSocial History:Social HistoryTobacco Use Smoking status: Former Smoker Packs/day: 1.00 Years: 55.00 Pack years: 55.00 Types: Cigarettes Quit date: 07/26/2016 Years since quittin.5 Smokeless tobacco: Never UsedSubstance Use Topics Alcohol use: No Drug use: NeverReview of Systems:All systems were reviewed and found negative except for those mentioned in theHPI.Physical Exam:Vital Signs: Temp: [97.4 F] 97.4 FHeart Rate: [82-83] 83Resp: [20] 20BP: (117-138)/(63-77) 138/63General appearance: Pleasant, comfortable, not in acute distress.Psych/ mental status: Alert, oriented, thought content appropriate.Lungs: Clear to auscultation bilaterally.Cardiovascular: No JVD and Heart regular rate and rhythm, S1, S2 normal, nomurmur, click, rub or gallopAbdomen: Soft, nontender, bowel sounds present.Extremities: BLE +1 pitting edema. LLE with ulcerated area to stout. skin shiney,ruborousSkin: as abovePV: RLE: DP/PT. LLE:DP, ?PT (faint, fleeting)Labs, Imaging and Other Diagnostics:Diagnostic tests reviewed:labs, ekg pendingSignature: Elen Lisa, NPDate: January 25, 2021Time: 2:36 PM Name Value Range Interpretation Code Description Data Lavinia rce(s) Supporting Document(s) ID Date Data Source [id number] 01/25/2021 05:59:07 PM EDT [facility] SPEC EXP DATE 01/28/2021ATI ENT ABO/Rh O POSITIVEANTIBODY SCREEN NEGATIVETESTING SITE PERFORMED AT [address] [place], [place] [address]OOD BANK COMMENT BLOOD TYPE CONFIRMED. Name Value Range Interpretation Code Description Data Lavinia rce(s) Supporting Document(s) TYPE AND SCREEN [facility] ID Date Data Source [id number] 01/25/2021 03:44:21 PM EDT [facility] Name Value Range Interpretation Code Description Data Lavinia rce(s) Supporting Document(s) SODIUM 140 mmol/L (136-145) [facility] POTASSIUM 4.3 mmol/L (3.6-5.2) [facility] CHLORIDE 105 mmol/L (100-108) [facility] CO2 28 mmol/L (22-31) [facility] ANION GAP 7 mmol/L (7-16) [facility] UREA NITROGEN 16 mg/dL (7-24) [facility] CREATININE 0.85 mg/dL (0.60-1.00) [facility] BUN/CREAT RATIO 18.8 RATIO (10.0-20.0) [facility] GLUCOSE 115 mg/dL (70-99) H [facility] CALCIUM 8.8 mg/dL (8.4-10.2) [facility] TOTAL PROTEIN 7.4 g/dL (6.4-8.2) [facility] ALBUMIN 3.5 g/dL (3.2-4.5) [facility] GLOBULIN 3.9 g/dL (2.7-4.3) [facility] ALB/GLOB RATIO 0.9 RATIO [facility] ALKALINE PHOSPHATASE 71 U/L (45-117) [facility] BILIRUBIN,TOTAL 0.4 mg/dL (0.0-1.0) [facility] PLEASE NOTE:Total bilirubin results may be falselyelevated in patients taking Eltrombopag. AST (SGOT) 44 U/L (11-39) H [facility] ALT (SGPT) 18 U/L (12-78) [facility] GFR >60 ml/min/1.73m2 (>59) [facility] GFR ( AMER) >60 ml/min/1.73m2 (>59) [facility] GFR INTERPRETATION [facility] --NORMAL KIDNEY FUNCTION OR MILD DISEASE - GFR >OR= 60CHRONIC KIDNEY DISEASE - GFR 15 - 59RENAL FAILURE - GFR <15 Est. GFR calculation based on the MDRDstudy equation, which assumes a steadystate for creatinine. Est. GFR should notbe used for medication dosing. ID Date Data Source [id number] 01/25/2021 03:42:10 PM EDT [facility] Name Value Range Interpretation Code Description Data Lavinia rce(s) Supporting Document(s) APTT 24.7 s (22.0-34.3) [facility] ID Date Data Source [id number] 01/25/2021 03:42:10 PM EDT [facility] Name Value Range Interpretation Code Description Data Lavinia rce(s) Supporting Document(s) PT 11.2 s (9.2-11.9) [facility] INR 1.07 [facility] SUGGESTED THERAPEUTIC RANGES USING INR F ORSTABILIZED ANTICOAGULATED PATIENTS:STANDARD DOSE THERAPY INR 2.0-3.0 DVT, PE, PREVENT DVT OR EMBOLISMHIGH DOSE THERAPY INR 2.5-3.5 PREVENT EMBOLISM FROM MECHANICAL HEART VALVE ID Date Data Source [id number] 01/25/2021 03:31:14 PM EDT [facility] Name Value Range Interpretation Code Description Data Lavinia rce(s) Supporting Document(s) WBC 6.9 10*3/uL (4.1-11.0) [facility] [place] RBC 3.30 10*6/uL (4.00-5.40) L [facility] HGB 10.4 g/dL (12.0-16.0) L [facility] HCT 31.8 % (36.0-47.0) L [facility] MCV 96.4 fL (80.0-95.0) H [facility] MCH 31.6 pg (27.0-32.0) [facility] MCHC 32.7 g/dL (32.0-36.0) [facility] RDW 15.0 % (10.5-14.5) H [facility] PLT 292 10*3/uL (150-450) [facility] MPV 7.4 fL (7.1-10.7) [facility] ID Date Data Source [id number] 01/25/2021 02:05:00 PM EDT [facility] Name Value Range Interpretation Code Description Data Lavinia rce(s) Supporting Document(s) SARS coronavirus 2 RNA [Presence] in Res piratory specimen by STEPH with probe detection NOT DETECTED [facility] This lab was reported by [facility]. ID Date Data Source [id number] 01/25/2021 03:12:10 PM EDT [facility] Name Value Range Interpretation Code Description Data Lavinia rce(s) Supporting Document(s) SPECIMEN DESCRIPTION [facility] INFLUENZA A (NEG) [facility] INFLUENZA B (NEG) [facility] RSV (NEG) [facility] COMMENT [facility] THE U.S. FDA HAS MADE THIS TEST AVAILABL EUNDER AN EMERGENCY USE AUTHORIZATION(EUA) FOR THE DETECTION AND/OR DIAGNOSISOF THE VIRUS THAT CAUSES COVID-19.PERFORMED AT [address] [place] [address] COVID19 RESULT (NDET) [facility] THIS ASSAY AMPLIFIES AND DETECTSTHE TARG ET RNA USING REAL-TIME PCR.TESTING PERFORMED ON [email or web address] GENEXPERTNEGATIVE 2019_NCOV RT-PCR RESULTS DONOT PRECLUDE 2019_NCOV INFECTION ANDSHOULD NOT BE USED THE SOLE BASISFOR PATIENT MANAGEMENT DECISIONS. FIRST TEST [facility] SYMPTOMATIC [facility] DATE OF SYMPT ONSET [facility] HOSPITALIZED [facility] [place] ICU [facility] CONGREGATE CARE SET [facility] SANDOV[facility] ID Date Data Source [id number] 01/20/2021 11:49:00 AM EDT [facility] CT A NGIO ABD AORTA W RUNOFF W IV CONTRASTCLINICAL HISTORY: Atherosclerosis of extremity with intermittent claudication of left leg.COMPARISON: CTA aorta and bilateral runoff 07/19/2019.TECHNIQUE: Helical computed tomography was performed through the abdomen and pelvis and continued through both lower extremities during intravenous administration of cc of Isovue 370from a 150 cc vial. 3D reconstruction, volume rendering, and/or MIP projection images were obtained and reviewed. CT dose reduction techniques were utilized. The study was reviewed on a 3D workstation as well.FINDINGS: CTA abdomen:Aorta: Severe atherosclerosis. Normal size. No occlusion.Mesenteric arteries: All 3 mesenteric arteries appear patent. There does appear to be a mild stenosis at t he origin of the FLORENTINO, unchanged.Renal arteries: Atherosclerotic disease with patent renal arteries bilaterally.CTA right lower extremity:IVELISSE: Patent right common iliac artery stent terminates just above the bifurcation. This is not significantly changed.IIA: Patent with severe atherosclerotic calcification. No obvious occlusion.EIA:Patent stent extending down to the right common iliac artery. This is not significantly changed.CASH APPLICATIONS CLERK: Atherosclerotic disease at the common femoral artery. There is contrast in the cross femoral bypass graft but I do not see out contrast is entering the graft on the right-hand side. It might be filling in a retrograde fashion from the left common femoral artery. There is a stent in the right SFA which looks occluded proximally.PFA: Patent with no significant plaque.SFA: Subtle mild contrast enhancement probably related to reconstitution. There is significant atherosclerotic calcification.Popliteal artery:Patent with a large amount of plaque, reconstituted from the distal SFA.Calf vessels: Patent 3 vessel runoff.CTA left lower extremity:IVELISSE: Patent with stent.IIA: Occluded with no contrast identified within proximally. There is probable reconstitution of the distal vessels through pelvic collaterals.EIA:High-grade stenosis adjacent atherosclerotic calcification. Very small amount of contrast extends to the stent in the left femoral region. Lack of contrast below this level suggest occlusionCFA: Occluded in the groin.PFA: Very small amount of contrast within or adjacent to the left femoral profundus artery.SFA: Patent through a stent. There is arterial contrast enhancement identified in the cross femoral bypass graft with highest grade stenosis between the stent and graft axial image 339.Popliteal artery:Patent beyond the stent.Calf vessels: Contrast extends from the infrapopliteal artery into the anterior tibial artery. I think there is reconstitution of the tibioperoneal trunk, posterior tibial artery and peroneal artery beginning around axial image number [id number]. There is contrast identified predominately within the anterior tibial artery and posterior tibial artery with very faint contrast enhancement of the peroneal artery which stops the and vis ualized distally.Nonvascular structures:Scarring is seen in the lung bases. The heart size is probably normal. Lower esophagus looks normal. The liver, spleen, gallbladder, adrenal glands, pancreas and kidneys look normal for age. There is significant dilatation of the common bile duct. I do not see well- defined stone or mass in the distal common bile duct. The common bile duct dilatation is similar compared to the prior CT scan. The stomach is collapsed and shows enhancement. Duodenum in normal position. Ligament of Treitz normal position. Small bowel loops and colon are not dilated. Diverticulosis is seen in the sigmoid colon, descending colon. Cecum, terminal ileum unremarkable. I do not see the appendix.CT pelvis: The urinary bladder, uterus and vagina look normal for age. No ovarian mass. Both ovaries look normal for postmenopausal patient.Skeletal structures: None mild degenerative changes. No acute fracture.IMPRESSION: New cross femoral bypass graft with occlusion or very high-grade stenosis at its anastomosis to the right common femoral artery. It isOccluded left common femoral artery and distal external iliac artery stent. Patent left SFA through the stent. Probable stenosis distal infrapopliteal artery with filling of the left anterior tibial artery. Reconstitution of the tibial peroneal trunk with contrast enhancement in the left posterior tibial artery. The distal left peroneal artery becomes occluded and non visible.Edematous changes in the lower leg.1 of the grafts in the left groin is occluded. This graft was seen medially.Other findings as above.Dictated by: ROSA GARCIA M.D. on 01/20/2021lectronically Signed by: ROSA GARCIA M.D. on 01/20/2021 12:48 PMTranscribed by: osman on 01/20/2021 12:48 PMCDS G code: , ,CDS Modifier: , ,cc: Name Value Range Interpretation Code Description Data Lavinia rce(s) Supporting Document(s) ID Date Data Source [id number] 01/20/2021 10:48:00 AM EDT [facility] ([facility]) Name Value Range Interpretation Code Description Data Lavinia rce(s) Supporting Document(s) Bypass Graft Ultrasound Lower Extremity Left Laboratory test result [facility] ([facility]) ID Date Data Source [id number] 01/13/2021 08:16:35 AM EDT [facility] INFORMATIONPatient MRN Name Date of Age Gend*PT [id number] Nguyen Ibarra 1935 85 years F SDCXPT Location Admission Date/Time Visit ID Attending [id number] 12/24/20 1107 --- --- EPI ID CSN Admitting Provider [id number] Isabella Sparrow MD([id number])NAME: Nguyen Ibrahim#: [id number] #: [id number] DATE: 12/25/2020 PT TYPE: C SURACCT #: [id number] : 1935 SEX: femaleReferring Physician:Primary Care Physician: Hugh Urbina PADISCHARGE DATE: 12/25/2020URGEON: Isabella Sparrow MDASSISTANT: NonePREOPERATIVE DX: left lower extremity arterial atherosclerosis with rest pain.POSTOPERATIVE DX:left lower extremity arterial atherosclerosis with rest pain.PROCEDURE:1.right common femoral artery ultrasound-guided access.2. left lower extremity runoff.3. left superficial femoral artery self-expanding drug alluding stents 5 x 120,5 x 100 and 5 x 60 mm.4. left superficial femoral artery balloon angioplasty, 5 mm balloon.5. Completion angiogram.6. Closure of right common femoral artery using Mynx closure device.ANESTHESIA: Monitored sedation (Duration 45 minutes).COMPLICATIONS: None.SPECIMEN: None.ESTIMATED BLOOD LOSS: MinimalINDICATION: This is a 85 years year old female with a history of left lowerextremity arterial atherosclerosis with rest pain and was planned for angiogramand possible endovascular intervention.DESCRIPTION OF PROCEDURE: After explaining the procedure to the patient andtaking written consent, the patient was taken to the endovascular suite.Patient was placed under conscious sedation using IV Versed and IV fentanyl.The right common femoral artery was accessed using 5-Andorran micropuncture kit,which was switched to a 5-Andorran sheath and catheter was placed via the crossfem graft into left common femoral artery. left leg runoff was done, whichshowed patent common femoral, patent profunda femoris artery. The superficialfemoral artery is occluded. There was reconstitution of above-knee poplitealartery with a 1 -vessel runoff distally. Patient was given 5000 units ofheparin and wire access was obtained through the occluded region intothe left above-knee popliteal artery. Left superficial femoral artery wastreated with self-expanding drug alluding stents 5 x 120, 5 x 100 and 5 x 60 mm.Left superficial femoral artery balloon angioplasty was done with 5 mm balloon.Completion film showed resolution ofthat diseased area, patent popliteal artery with unchanged distal runoff. Thesheath was exchanged for a short 6-Andorran sheath. A Mynxclosure device was used to close the right groin arteriotomy. There was nobleeding or hematoma present. Patient was stable throughout the procedure Jaden was present throughout.Isabella Sparrow MD Name Value Range Interpretation Code Description Data Lavinia rce(s) Supporting Document(s) ID Date Data Source [id number] 12/27/2020 12:12:13 AM EDT [facility] INFORMATIONPatient MRN Name Date of Age Gend*PT [id number] Nguyen Ibarra 1935 85 years F SDCXPT Location Admission Date/Time Visit ID Attending [id number] 12/24/20 1107 --- --- EPI ID CSN Admitting Provider [id number] Isabella Sparrow MD([id number]) Attestation signed by Isabella Sparrow MD at 12/27/2020 12:12 AMI saw and evaluated the patient and reviewed note. I agree with the history,physical and medical decision makingSignature: HANG Hongate: December 27, 2020Time: 12:11 AM --Surgical Discharge SummaryLuciafrida Garibay TonyN: [id number] date: dmitting Physician: HANG Hongischarge date and time: Pt being discharged on December 26, 2020 to her homeDischarge Physician: Debra Mark Diagnosis: Ischemia of left lower extremitySecondary Diagnoses:Active Hospital Problems Diagnosis Date Noted Ischemia of left lower extremity 12/24/2020 Patient has an occluded bypass graft of her redo left lower extremityfemoropopliteal bypass with CryoVein. Anemia Coronary artery disease f/u by Dr. Yassine WILDER (gastroesophageal reflux disease) Hyperlipidemia Hypertension PVD (peripheral vascular disease) 12/24/2019 Acute on chronic diastolic congestive heart failure 11/03/2016 COPD (chronic obstructive pulmonary disease) 11/03/2016Resolved Hospital ProblemsNo resolved problems to display.Discharge Medications:Your medication listCONTINUE taking these medications Instructions Last Dose Given Morning Afternoon Evening Bedtime As Neededalbuterol 108 (90 Base) MCG/ACT i nhalerCommonly known as: PROVENTIL HFA;VENTOLIN HFA Inhale 2 puffs 4 (four) times a day as needed for wheezingaspirin EC 81 MG EC tablet Take 81 mg by mouth dailyatorvastatin 40 MG tabletCommonly known as: LIPITOR Take 40 mg by mouth nightlycarvedilol 3.125 MG tabletCommonly known as: COREG Take 3.125 mg by mouth 2 (two) times a daycholecalciferol 25 MCG (1000 UT) capsuleCommonly known as: VITAMIN D3 Take 1,000 Units by mouth nightlyclopidogrel 75 MG tabletCommonly known as: PLAVIX Take 75 mg by mouth dailydocusate sodium 100 MG capsuleCommonly known as: COLACE Take 100 mg by mouth every other dayferrous sulfate 325 (65 FE) MG tablet Take 325 mg by mouth dailyfluticasone-salmeterol 500-50 MCG/DOSE DISKUSCommonly known as: ADVAIR Inhale 1 puff 2 (two) times a dayfurosemide 20 MG tabletCommonly known as: LASIX Take 20 mg by mouth dailygabapentin 100 MG capsuleCommonly known as: NEURONTIN Take 200 mg by mouth 2 (two) times a dayHYDROcodone-acetaminophen 5-325 MG per tabletCommonly known as: NORCO Take 0.5 tablets by mouth every 6 (six) hours as needed for painipratropium-albuterol 0.5-2.5 mg/mL nebulizerCommonly known as: DUO-NEB Inhale 3 mL every 6 (six) hours as needed (for shortness of breath)lisinopril 2.5 MG tabletCommonly known as: PRINIVIL,ZESTRIL Take 2.5 mg by mouth nightlynitroglycerin 0.4 MG SL tabletCommonly known as: NITROSTAT Place 0.4 mg under the tongue every 5 (five) minutes as needed for chest painpantoprazole 40 MG tabletCommonly known as: PROTONIX Take 40 mg by mouth dailypotassium chloride 10 MEQ CR capsuleCommonly known as: MICRO-K Take 10 mEq by mouth 2 (two) times a dayPRESERVISION AREDS PO Take 1 tablet by mouth nightlySpiriva Respimat 2.5 MCG/ACT AersGeneric drug: Tiotropium [place] Monohydrate Inhale 22 puffs dailyTYLENOL PM EXTRA STRENGTH PO Take 1 tablet by mouth nightly as needed (for sleep)Indication for Admission: PVD, ischemia of left legHospital Course & Complications: Pt was admitted on 12/24/20 for PVD; ischemia ofleft leg and underwent an angiogram and successful recannulization with SFAstent placement on 12/25 with . No immediate post angio complications.Patient did have urinary retention and had a mo placed last night. Her foleywas removed this morning and she voided without any problems. Patient washemodynamically and neurologically stable upon discharge.Pt denies fevers, chills, night sweats, CP, pressure tightness heavinessdiscomfort, SOB, cough and abdominal pain. Pt is eating well, ambulatory, isvoiding adaquetely and pain is controlled. D/c instructions were discussed. Afollow up appointment with Dr Sparrow in about 2 weeks. Pt will continue takingaspirin and plavix. Pt understands wound care instructions, they are agreeableto d/c and have no further questions.Past Medical History:Past Medical History:Diagnosis Date Acute on chronic diastolic congestive heart failure 11/03/2016 Anemia Carotid artery occlusion COPD (chronic obstructive pulmonary disease) 11/03/2016 uses 2L oxygen at night Coronary artery disease f/u by Dr. Metzger GERD (gastroesophageal reflux disease) Heart valve disease Hiatal hernia History of GI bleed WAMPANOAG (hard of hearing) Hyperlipidemia Hypertension Macular degeneration NSTEMI (non-ST elevated myocardial infarction) 11/03/2016 Osteoarthritis Peripheral vascular disease Pneumonia due to influenza A virus 11/03/2016 Stroke TIA (transient ischemic attack)Labs:BMP:Lab ResultsComponent Value Date NA 144 12/26/2020 K 3.9 12/26/2020 CL 110 (H) 12/26/2020 CO2 29 12/26/2020 ANIONGAP 5 (L) 12/26/2020 CALCIUM 8.0 (L) 12/26/2020 GLU 99 12/26/2020 BUN 15 12/26/2020 CREATININE 0.72 12/26/2020 GFRAA >60 12/26/2020 GFRNONAA >60 12/26/2020BC Brief:Lab ResultsComponent Value Date WBC 6.3 12/26/2020 HGB 8.9 (L) 12/26/2020 HCT 26.6 (L) 12/26/2020 PLT 159 12/26/2020Treatments: See above Hospital Course & Complications.Discharge Exam:Most Recent Vital SignsTemp: [97.4 F-98.2 F] 98.2 FHeart Rate: [70-100] 79Resp: [10-97] 16BP: (96-173)/(45-93) 104/49Physical Exam:General: WDWN 85 years White or female, Lying comfortably in bed,awake/alert comfortable in NAD.Head: NC/AT, without obvious deformity.Heart: RRR S1S2, without audible M/R/G.Lungs: CTAB without W/R/R or cough. Without increased inspiratory effort. Not onO2.Abdomen: Soft, NT, ND, + BS.Groins: right: soft, with mynx closure; no hematomaExtremities: left: +DP/PT signals; no edema; no calf tendernessNeuro: AAOx3, answers questions appropriately, baggage clerk strength equal b/l. No grossneurological deficits.Items needing special attention:- Follow up appointment with Dr. Sparrow in 2 weeks- Continue aspirin and plavixDischarged Condition:goodDisposition: Home or Self CareSignature: JOJO Mark-KEVINate: December 26, 2020Time: 12:25 PM Name Value Range Interpretation Code Description Data [facility](s) Supporting Document(s) ID Date Data Source [id number] 12/26/2020 07:29:12 AM EDT [facility] Name Value Range Interpretation Code Description Data [facility](s) Supporting Document(s) SODIUM 144 mmol/L (136-145) [facility] POTASSIUM 3.9 mmol/L (3.6-5.2) [facility] CHLORIDE 110 mmol/L (100-108) H [facility] CO2 29 mmol/L (22-31) [facility] ANION GAP 5 mmol/L (7-16) L [facility] UREA NITROGEN 15 mg/dL (7-24) [facility] CREATININE 0.72 mg/dL (0.60-1.00) [facility] BUN/CREAT RATIO 20.8 RATIO (10.0-20.0) H [facility] GLUCOSE 99 mg/dL (70-99) [facility] CALCIUM 8.0 mg/dL (8.4-10.2) L [facility] GFR >60 ml/min/1.73m2 (>59) [facility] GFR ( AMER) >60 ml/min/1.73m2 (>59) [facility] GFR INTERPRETATION [facility] --NORMAL KIDNEY FUNCTION OR MILD DISEASE - GFR >OR= 60CHRONIC KIDNEY DISEASE - GFR 15 - 59RENAL FAILURE - GFR <15 Est. GFR calculation based on the MDRDstudy equation, which assumes a steadystate for creatinine. Est. GFR should notbe used for medication dosing. ID Date Data Source [id number] 12/26/2020 07:18:09 AM EDT [facility] Name Value Range Interpretation Code Description Data Lavinia rce(s) Supporting Document(s) WBC 6.3 10*3/uL (4.1-11.0) [facility] RBC 2.82 10*6/uL (4.00-5.40) L [facility] HGB 8.9 g/dL (12.0-16.0) L [facility] HCT 26.6 % (36.0-47.0) L [facility] PERFORMED AT [address] [place] [address] N Y [address] MCV 94.4 fL (80.0-95.0) [facility] MCH 31.6 pg (27.0-32.0) [facility] MCHC 33.4 g/dL (32.0-36.0) [facility] RDW 15.7 % (10.5-14.5) H [facility] PLT 159 10*3/uL (150-450) [facility] MPV 7.6 fL (7.1-10.7) [facility] ID Date Data Source [id number] 12/25/2020 12:58:31 PM EDT [facility] Name Value Range Interpretation Code Description Data Lavinia rce(s) Supporting Document(s) IR IS ARTERIOGRAM EXTREMITY SINGLE LEFT [facility] ID Date Data Source [id number] 12/25/2020 12:48:31 PM EDT [facility] INFORMATIONPatient MRN Name Date of Age Gend*PT [id number] Nguyen Ibarra 1935 85 years F SDCXPT Location Admission Date/Time Visit ID Attending [id number] 12/24/20 1107 --- Isabella Sparrow MD([id number]) EPI ID CSN Admitting Provider [id number] Isabella Sparrow MD([id number]) Attestation signed by Isabella Sparrow MD at 12/25/2020 12:48 PMI saw and evaluated the patient and reviewed note. I agree with the history,physical and medical decision makingSignature: Isabella Sparrow MDDate: December 25, 2020Time: 12:48 PM Inpatient History & PhysicalSumauricio IbarraN:[id number] and Plan:Principal Problem: Ischemia of left lower extremityActive Problems: Acute on chronic diastolic congestive heart failure COPD (chronic obstructive pulmonary disease) PVD (peripheral vascular disease) Hypertension Hyperlipidemia GERD (gastroesophageal reflux disease) Coronary artery disease Anemia 1. Admit to Dr Sparrow, diagnosis occluded bypass graft to the left lowerextremity with rest pain and claudication. Will start a Heparin drip. 2. Labs: CBC, BNP, CMP, PTT, INR, type and screen and covid ordered. 3. PAD: - Patient is having ischemic rest pain. She is to go to interventionalradiology with Dr. Drummond tomorrow. We'll start a heparin drip. Currently on Asa81 mg and Plavix 75 mg. 4. CAD/Chronic diastolic HF -Coreg, Lisinopril, Lasix. KCl replacement. 5. COPD -Advair, Duoneb's. 6. Neuropathy -Gabapentin 200 mg bid. 7. Iron deficiency anemia. -ferrous sulfate. 8. GERD -Protonix. 9. Pain management -[place] ordered. Has Gabapentin.Chief Complaint: Left leg painHPI: The patient is an 85-year-old female who is known to the practice whopresents emergency department for admission due to left leg PAD withclaudication and significant rest pain. She has a history of COPD CAD, HTN,GERD, iron deficiency anemia, degenerative disc disease, chronic diastolic heartfailure, HLD, cerebrovascular disease with history of TIA. She presents todayas a planned admission with plan to go for an angiogram with Dr. Sparrow tomorrow.She is having significant pain in the left lower extremity.She has a significant history of interventions in her left leg. Vascular hx ofangioplasty and stent to bilateral IVELISSE, right EIA in June 2018. She isstatus post left PFA/SFA endarterectomy with Xenosure patch angioplasty leftEIA, CASH APPLICATIONS CLERK, PFA and SFA in March 2019. She then had left EIA stent left CFAangioplasty in July 2019. Status post left femoral and SFA endarterectomywith cross them BPG from right SFA to left SFA, stent in the SFA x2 in December 2019.Subsequently right SFA stent and angioplasty was done in March 2020 she thenunderwent bypass graft from cross femoral in the left lower extremity toabove-knee popliteal artery with propatent in April 2020 her bypass graftthen subsequently occluded and she is now status post redo left lower extremityfemoropopliteal bypass graft with CryoVein in October 2020.The patient reports that she has had increasing pain over the past three weeks.She is having extreme difficulty at night and at times dangles her left leg outof bed. She denies any chest pain or SOB. She did have a "blister" to the lowerleft leg that popped and now "looks better."Past Medical History:Past Medical History:Diagnosis Date Acute on chronic diastolic congestive heart failure 11/03/2016 Anemia Carotid artery occlusion COPD (chronic obstructive pulmonary disease) 11/03/2016 uses 2L oxygen at night Coronary artery disease f/u by Dr. Yassine WILDER (gastroesophageal reflux disease) Heart valve disease Hiatal hernia History of GI bleed [place]AMPANOAG (hard of hearing) Hyperlipidemia Hypertension Macular degeneration NSTEMI (non-ST elevated myocardial infarction) 11/03/2016 Osteoarthritis Peripheral vascular disease Pneumonia due to influenza A virus 11/03/2016 Stroke TIA (transient ischemic attack)Past Surgical History:Past Surgical History:Procedure Laterality Date Angioplasty and stenting Left external iliac artery stenting, left common femoral artery angioplasty COLONOSCOPY CORONARY STENT PLACEMENT 2012 x2 FEMORAL ENDARTERECTOMY Left Femoral endarterectomy with patch Left 2019 Iliac Endarterectomy Left 2019 Left profunda femoris artery endarterectomy UPPER GASTROINTESTINAL ENDOSCOPY VASCULAR SURGERY Left 12/26/2019 Procedure: RIGHT TO LEFT FEMORAL ARTERIAL BYPASS, , FEMORAL ENDARTERECTOMYLEFT, INTRAOPERATIVE ANGIOGRAM LEFT W/ SUPERFICAL ARTERIAL STENT; Surgeon: MD Vicky; Laterality: Left; VASCULAR SURGERY Left 04/28/2020 Procedure: CROSS FEMORAL TO ABOVE POPLITEAL ARTERY BYPASS OPERATIVEARTERIOGRAM; Surgeon: Zuhair Levine MD; Laterality: Left; VASCULAR SURGERY Left 10/20/2020 Procedure: LEFT ARTERIAL FEMORAL TO Popliteal BYPASS WITH CRYOVEIN; Surgeon:Zuhair Levine MD; Laterality: Left;Medications:Medication acetaminophen (TYLENOL) 325 MG tablet 650 mg heparin (porcine) injection 1,000-10,000 Units heparin (porcine) injection 4,300 Units heparin infusion 25,000 units in 500 mL 0.45% NaCl HYDROcodone-acetaminophen (NORCO) 5-325 MG per tablet 1-2 tablet ondansetron (ZOFRAN) injection 4 mgMedication albuterol (PROVENTIL HFA;VENTOLIN HFA) 108 (90 BASE) MCG/ACT inhaler aspirin EC 81 MG EC tablet atorvastatin (LIPITOR) 40 MG tablet carvedilol (COREG) 3.125 MG tablet cholecalciferol (VITAMIN D3) 1000 UNITS capsule clopidogrel (PLAVIX) 75 MG tablet diphenhydrAMINE-APAP, sleep, (TYLENOL PM EXTRA STRENGTH PO) docusate sodium (COLACE) 100 MG capsule ferrous sulfate 325 (65 FE) MG tablet fluticasone-salmeterol (ADVAIR) 500-50 MCG/DOSE DISKUS furosemide (LASIX) 20 MG tablet gabapentin (NEURONTIN) 100 MG capsule HYDROcodone-acetaminophen (NORCO) 5-325 MG per tablet ipratropium-albuterol (DUO-NEB) 0.5-2.5 mg/mL nebulizer lisinopril (PRINIVIL,ZESTRIL) 2.5 MG tablet Multiple Vitamins-Minerals (PRESERVISION AREDS PO) nitroglycerin (NITROSTAT) 0.4 MG SL tablet pantoprazole (PROTONIX) 40 MG tablet potassium chloride (MICRO-K) 10 MEQ CR capsule Tiotropium [place] Monohydrate (Spiriva Respimat) 2.5 MCG/ACT AERSAllergies:Ciprofloxacin, Penicillins, and VancomycinFamily History:Family HistoryProblem Relation Age of Onset Diabetes Mother Heart disease Father Heart disease Brother Malig Hyperthermia Neg HxSocial History:Social HistoryTobacco Use Smoking status: Former Smoker Packs/day: 1.00 Years: 55.00 Pack years: 55.00 Types: Cigarettes Quit date: 07/26/2016 Years since quittin.4 Smokeless tobacco: Never UsedSubstance Use Topics Alcohol use: No Drug use: NeverReview of Systems:Constitutional: negative for chills and feversEyes: negative for visual disturbanceEars, nose, mouth, throat, and face: negative for nasal congestion and sorethroatRespiratory: negative for coughCardiovascular: positive for claudication, negative for chestpr essure/discomfort and palpitationsGastrointestinal: negative for abdominal pain, nausea and vomitingGenitourinary:negative for dysuriaIntegument/breast: Positive for a blister to the LLE which burst and now looksbetter,Musculoskeletal:positive for left leg pain.Neurological: negative for dizziness and headachesPhysical Exam:Vital Signs: Temp: [97.6 F] 97.6 FHeart Rate: [83] 83Resp: [18] 18BP: (116)/(45) 116/45General: 85-year-old elderly female sitting in a wheelchair.HEENT: Normocephalic, atraumatic, pupils are equal, sclera anicteric.Neck suppleCardiac is regular rate and rhythm S1-S2 with SOPHIE.Lungs: Clear to auscultation without wheezes rhonchi appreciated.Abdomen: Positive bowel sounds, soft, nontender.Neuro: She is alert and oriented x3. Speech is clear.Extremities: She has discoloration to the left lower extremity. The right lowerextremity calf is nontender and supple. Left lower extremity was touchedminimally due to the degree of her pain. Skin: She has a area of eschar to theleft lower extremity medial aspect at the proximal one third of the calf distalend of where her last incision had been. She has dependent rubor at this time.PV: RLE with palpable DP. Left was not attempted as doppler not available. Shehas hyperesthesia to touch on the LLE.Labs, Imaging and Other Diagnostics:Diagnostic tests reviewed:Signature: SHANICE Connate: December 24, 2020Time: 12:05 PM Name Value Range Interpretation Code Description Data Lavinia rce(s) Supporting Document(s) ID Date Data Source [id number] 12/25/2020 05:20:03 AM EDT [facility] Name Value Range Interpretation Code Description Data [facility] Document(s) SODIUM 142 mmol/L (136-145) [facility] POTASSIUM 4.0 mmol/L (3.6-5.2) [facility] CHLORIDE 105 mmol/L (100-108) [facility] CO2 27 mmol/L (22-31) [facility] ANION GAP 10 mmol/L (7-16) [facility] UREA NITROGEN 23 mg/dL (7-24) [facility] CREATININE 0.79 mg/dL (0.60-1.00) [facility] BUN/CREAT RATIO 29.1 RATIO (10.0-20.0) H [facility] GLUCOSE 126 mg/dL (70-99) H [facility] CALCIUM 8.9 mg/dL (8.4-10.2) [facility] GFR >60 ml/min/1.73m2 (>59) [facility] GFR ( AMER) >60 ml/min/1.73m2 (>59) [facility] GFR INTERPRETATION [facility] --NORMAL KIDNEY FUNCTION OR MILD DISEASE - GFR >OR= 60CHRONIC KIDNEY DISEASE - GFR 15 - 59RENAL FAILURE - GFR <15 Est. GFR calculation based on the MDRDstudy equation, which assumes a steadystate for creatinine. Est. GFR should notbe used for medication dosing. ID Date Data Source [id number] 12/25/2020 03:42:06 AM EDT [facility] Name Value Range Interpretation Code Description Data Lavinia rce(s) Supporting Document(s) APTT >150.0 s (22.0-34.3) HH [facility] ALERTED CRITICAL RESULT TOPAUL([id number]) D4(01108) AT 0340 ON 12/25/20 [place] [id number] ID Date Data Source [id number] 12/25/2020 03:04:59 AM EDT [facility] Name Value Range Interpretation Code Description Data Lavinia rce(s) Supporting Document(s) WBC 8.5 10*3/uL (4.1-11.0) [facility] RBC 3.19 10*6/uL (4.00-5.40) L [facility] HGB 10.0 g/dL (12.0-16.0) L [facility] HCT 29.9 % (36.0-47.0) L [facility] PERFORMED AT [address] [place] [address] N Y [address] MCV 93.8 fL (80.0-95.0) [facility] MCH 31.3 pg (27.0-32.0) [facility] MCHC 33.4 g/dL (32.0-36.0) [facility] RDW 15.8 % (10.5-14.5) H [facility] PLT 204 10*3/uL (150-450) [facility] MPV 7.9 fL (7.1-10.7) [facility] ID Date Data Source [id number] 12/25/2020 01:14:14 AM EDT [facility] Name Value Range Interpretation Code Description Data Lavinia rce(s) Supporting Document(s) APTT >150.0 s (22.0-34.3) HH [facility] ALERTED CRITICAL RESULT BERTAKELA([id number] ) D4(13198) AT 0110 ON 12/25/20 BY [id number] ID Date Data Source [id number] 12/24/2020 02:12:56 PM EDT [facility] SPEC EXP DATE 1PATI ENT ABO/Rh O POSITIVEANTIBODY SCREEN NEGATIVETESTING SITE PERFORMED AT [address] [place], [place] [address]BLOOD BANK COMMENT BLOOD TYPE CONFIRMED. Name Value Range Interpretation Code Description Data Lavinia rce(s) Supporting Document(s) TYPE AND SCREEN [facility] ID Date Data Source [id number] 12/24/2020 01:50:52 PM EDT [facility] Name Value Range Interpretation Code Description Data Lavinia rce(s) Supporting Document(s) NT PRO BNP 180 pg/mL (0-450) [facility] ID Date Data Source [id number] 12/24/2020 01:50:52 PM EDT [facility] Name Value Range Interpretation Code Description Data Lavinia rce(s) Supporting Document(s) SODIUM 141 mmol/L (136-145) [facility] POTASSIUM 3.7 mmol/L (3.6-5.2) [facility] CHLORIDE 107 mmol/L (100-108) [facility] CO2 29 mmol/L (22-31) [facility] ANION GAP 5 mmol/L (7-16) L [facility] UREA NITROGEN 23 mg/dL (7-24) [facility] CREATININE 0.84 mg/dL (0.60-1.00) [facility] BUN/CREAT RATIO 27.4 RATIO (10.0-20.0) H [facility] GLUCOSE 226 mg/dL (70-99) H [facility] CALCIUM 9.1 mg/dL (8.4-10.2) [facility] TOTAL PROTEIN 7.4 g/dL (6.4-8.2) [facility] ALBUMIN 3.6 g/dL (3.2-4.5) [facility] GLOBULIN 3.8 g/dL (2.7-4.3) [facility] ALB/GLOB RATIO 0.9 RATIO [facility] ALKALINE PHOSPHATASE 72 U/L (45-117) [facility] BILIRUBIN,TOTAL 0.3 mg/dL (0.0-1.0) [facility] PLEASE NOTE:Total bilirubin results may be falselyelevated in patients taking Eltrombopag. AST (SGOT) 10 U/L (11-39) L [facility] ALT (SGPT) 14 U/L (12-78) [facility] GFR >60 ml/min/1.73m2 (>59) [facility] GFR ( AMER) >60 ml/min/1.73m2 (>59) [facility] GFR INTERPRETATION [facility] --NORMAL KIDNEY FUNCTION OR MILD DISEASE - GFR >OR= 60CHRONIC KIDNEY DISEASE - GFR 15 - 59RENAL FAILURE - GFR <15 Est. GFR calculation based on the MDRDstudy equation, which assumes a steadystate for creatinine. Est. GFR should notbe used for medication dosing. ID Date Data Source [id number] 12/24/2020 01:30:01 PM EDT [facility] Name Value Range Interpretation Code Description Data Lavinia rce(s) Supporting Document(s) APTT 25.1 s (22.0-34.3) [facility] PERFORMED AT [address] [place] [address] N Y [address] ID Date Data Source [id number] 12/24/2020 01:30:01 PM EDT [facility] Name Value Range Interpretation Code Description Data Lavinia rce(s) Supporting Document(s) PT 11.1 s (9.2-11.9) [facility] PERFORMED AT [address] [place] [address] N Y [address] INR 1.06 [facility] SUGGESTED THERAPEUTIC RANGES USING INR F ORSTABILIZED ANTICOAGULATED PATIENTS:STANDARD DOSE THERAPY INR 2.0-3.0 DVT, PE, PREVENT DVT OR EMBOLISMHIGH DOSE THERAPY INR 2.5-3.5 PREVENT EMBOLISM FROM MECHANICAL HEART VALVE ID Date Data Source [id number] 12/24/2020 01:24:14 PM EDT [facility] Name Value Range Interpretation Code Description Data [facility] rce(s) Supporting Document(s) WBC 6.9 10*3/uL (4.1-11.0) [facility] RBC 3.45 10*6/uL (4.00-5.40) L [facility] [facility] HGB 10.8 g/dL (12.0-16.0) L [facility] HCT 33.1 % (36.0-47.0) L [facility] PERFORMED AT [address] [place] [address] N [place] [address] MCV 95.9 fL (80.0-95.0) H [facility] MCH 31.3 pg (27.0-32.0) [facility] MCHC 32.6 g/dL (32.0-36.0) [facility] RDW 15.4 % (10.5-14.5) H [facility] PLT 202 10*3/uL (150-450) [facility] MPV 8.0 fL (7.1-10.7) [facility] ID Date Data Source [id number] 12/24/2020 11:06:00 AM EDT [facility] Name Value Range Interpretation Code Description Data Lavinia rce(s) Supporting Document(s) SARS coronavirus 2 RNA [Presence] in Res piratory specimen by STEPH with probe detection NOT DETECTED [facility] This [facility] was reported by [facility]. ID Date Data Source [id number] 12/24/2020 12:34:33 PM EDT [facility] Name Value Range Interpretation Code Description Data Lavinia rce(s) Supporting Document(s) SPECIMEN DESCRIPTION [facility] INFLUENZA A (NEG) Lab [facility] INFLUENZA B (NEG) Lab [facility] RSV (NEG) [facility] COMMENT [facility] THE [place] FDA HAS MADE THIS TEST AVAILABL EUNDER AN EMERGENCY USE AUTHORIZATION(EUA) FOR THE DETECTION AND/OR DIAGNOSISOF THE VIRUS THAT CAUSES COVID-19.PERFORMED AT [address] [place] [id number] COVID19 RESULT (NDET) [facility] THIS ASSAY AMPLIFIES AND DETECTSTHE TARG ET RNA USING REAL-TIME PCR.TESTING PERFORMED ON [employer] GENEXPERTNEGATIVE 2019_NCOV RT-PCR RESULTS DONOT PRECLUDE 2019_NCOV INFECTION ANDSHOULD NOT BE USED THE SOLE BASISFOR PATIENT MANAGEMENT DECISIONS. FIRST TEST [facility] EMPLOYED IN HLTHCARE [facility] SYMPTOMATIC [facility] DATE OF SYMPT ONSET [facility] HOSPITALIZED [facility] ICU [facility] CONGREGATE CARE SET [facility] ID Date Data Source [id number] 12/17/2020 02:08:00 PM EDT [facility] ([facility]) Name Value Range Interpretation Code Description Data Lavinia rce(s) Supporting Document(s) Bypass Graft Ultrasound Lower Extremity Left Laboratory test result [facility] ([facility]) ID Date Data Source [id number] 10/26/2020 01:11:39 PM EDT [facility] NT INFORMATIONPatient MRN Name Date of Age Gend*PT [id number] Nguyen Ibarra 1935 85 years F IPPT Location Admission Date/Time Visit ID Attending [id number] 10/19/20 1153 --- --- EPI ID CSN Admitting Provider [id number] Zuhair Levine MD([id number]) [place] [address] OPERATIVE REPORT OPNAME: NGUYEN IBARRA [place] Ibrahim#: [id number] #: [id number] ADMISSION DATE: 10/19/2020OB: 1935 SEX: F PT TYPE: I SURACCT #: [id number] CARE PHYSICIAN: HUGH FINNTE OF OPERATION: 021PREOPERATIVE DIAGNOSES:1. Left leg ischemia, rest pain.2. Occluded superficial femoral artery.3. Occluded femoral popliteal bypass graft and4. Occluded stents in the superficial femoral artery.POSTOPERATIVE DIAGNOSES:1. Left leg ischemia, rest pain.2. Occluded superficial femoral artery.3. Occluded femoral popliteal bypass graft and4. Occluded stents in the superficial femoral artery.OPERATIVE PROCEDURE:Left femoral popliteal bypass graft with a CryoVein.SURGEON:Zuhair Levine MDASSISTANT:JOSELUIS WeaverNESTHESIA:General endotracheal anesthesia.DESCRIPTION OF PROCEDURE:This 85 years old lady has a markedly ischemic left leg, unable to move hertoes and essentially has rest pain. She has had a femoral popliteal bypassgraft that is occluded. She also has a cross femoral graft in place. Sheis on aspirin, Plavix and has ecchymosis in multiple areas. In addition,they were not able to put an arterial line in her because of markedly smallarteries in the arm. After prepping and draping the left leg, an adequatetimeout was done. I made a transverse incision in the groin and exposedthe cross femoral graft, dissected it proximally and distally enough to beable to put a clamp on it. I initially put an arterial line in it, so thatanesthesia could monitor the pressure. Once that was done, I exposed thepopliteal artery by making incision medially below the knee. Skin,subcutaneous tissue, fascia was opened. The tendons of the sartoriussemitendinosus were divided. The popliteal artery was exposed. It was 2-3mm in size, but was soft. A CryoVein had been prepped in a regularfashion. It was irrigated. It was checked to make sure there were noleaks. 5000 units of heparin was given to the patient. The cross femoralgraft was occluded proximally and distally, anteriorly opened. A smallbutton was taken out of the graft. The vein was sutured to it with 5-0Prolene. The anastomosis was hemostatic. All the tissues around theseincision was oozing. We cauterized it, suture ligated the areas, made atunnel subcutaneously, brought the tunnel from and pulled the graft throughthe tunnel below the knee. We waited 5 minutes before pulling the graft inthe tunnel to let it expand. Once the graft was below the knee over thepopliteal artery, the popliteal artery was occluded proximally anddistally, anteriorly opened. Care had to be taken because of the smallsize of this artery. I put stay sutures on either side. I bevelled thevein, sutured the artery with a running suture of 6-0 Prolene. Hemostasiswas achieved. There was excellent flow with the Doppler in the poplitealartery. The deeper layers and the groin were closed with 2-0 and 3-0Vicryl, numerous areas were suture ligated, which were oozing. I gave her25 mg of protamine and I asked them to give her 5 units of plateletsbecause this obviously was not just surgical bleeding. This was the factof anticoagulants that she has been on. Skin and the groin was closed withsubcuticular suture. Below the knee, I closed the skin with deeper layerswith 3-0 nylon interrupted sutures. I left a drain, brought it out throughthe lower part of the incision just to make sure that there was nocollection develops in that area. Blood loss was about 300 mL. She got aunit of blood as her hematocrit to start with was 33. She had a warm foot,good pulses.MIGUEL Saha/MONTANA Job #: [id number] DOC #: [id number] Name Value Range Interpretation Code Description Data Lavin[facility] rce(s) Supporting Document(s) ID Date Data Source [id number] 10/22/2020 02:43:28 PM EDT [facility]PAT[facility] NT INFORMATIONPatient MRN Name Date of Age Gend*PT [id number] Nguyen Ibarra 1935 85 years F IPPT Location Admission Date/Time Visit ID Attending [id number] 10/19/20 1153 --- --- EPI ID CSN Admitting Provider [id number] Zuhair Levine MD([id number]) Attestation signed by Zuhair Levine MD at 10/22/2020 2:43 PM. I agree with the history, physical and medical decision makingSignature: HANG Sahaate: October 22, 2020Time: 2:43 PM Discharge SummarySuzaroya Ibarra85 yearsMRN: [id number]//[id number] Date: 10/19/2020 11:53 AMDischarge Date: 10/22/20Admitting Physician: HANG Sahaischarge PA: Britton Howard RPA-CPrincipal Diagnosis: Peripheral vascular diseaseSecondary Diagnoses:Patient Active Problem ListDiagnosis NSTEMI (non-ST elevated myocardial infarction) Acute on chronic diastolic congestive heart failure COPD (chronic obstructive pulmonary disease) Pneumonia due to influenza A virus PVD (peripheral vascular disease) Preoperative cardiovascular examination Peripheral vascular disease Hypertension Hyperlipidemia GERD (gastroesophageal reflux disease) Coronary artery disease AnemiaPrincipal Procedure Performed:1. Left fem popliteal bypass with cryo veReason for Hospitalization: ischemic Left lower extremityHospital Course:Primary Diagnosis: ischemic Left lower extremityThe patient was admitted on 10/19/2020 11:53 AM. Mrs Ibarra was taken to theoperating room on the same day where under general anesthesia, a Left fempopliteal bypass with cryo vein was performed. The patient tolerated theprocedure well, was awake and alert in the PACU and after some time wastransferred to the floor.The post operative course was otherwise unremarkable. The patient tolerated aregular diet and pain was well controlled. Her vital signs remained stable.Please see below for exam on the day of discharge. She as fragile thin skin thattears easily both lower extremities. Has chronic dark discoloration. Xeroformdressing applied. Aspirin and Plavix will be resumed. The patient was deemedstable for discharge home. The patient will follow up with Zuhair Levine MD in 1-2weeks.Vitals on the day of discharge:Vitals: 10/22/20 0525BP: 100/51Pulse: 80Resp: 16Temp: 98.5 FSpO2: 100%General appearance: NADNeurologic:Movement grossly normal in BUE and BLE.Lungs: CTA bilaterallyHeart: RegularAbdomen: SoftExtremities: Left groin Prevena intact. Foot warm Biphasic PT doppler signal.Calf incision with some drainage. Nylon stitches intact. Some Dark skinpigmentation bilateral lower extremities.Discharged Condition: stableDischarge medications: Please see Medication Reconciliation form.Discharge Instructions: Please see Discharge Instructions.Signature: SHANICE Weaverharmony: October 22, 2020Time: 7:46 AM Name Value Range Interpretation Code Description Data [facility](s) Supporting Document(s) ID Date Data Source [id number] 10/21/2020 07:48:17 AM EDT [facility] Name Value Range Interpretation Code Description Data [facility](s) Supporting Document(s) WBC 8.0 10*3/uL (4.1-11.0) [facility] [place] RBC 3.01 10*6/uL (4.00-5.40) L [facility] HGB 9.3 g/dL (12.0-16.0) L [facility] HCT 27.9 % (36.0-47.0) L [facility] MCV 92.6 fL (80.0-95.0) [facility] MCH 31.0 pg (27.0-32.0) [facility] MCHC 33.4 g/dL (32.0-36.0) [facility] RDW 15.7 % (10.5-14.5) H [facility] PLT 153 10*3/uL (150-450) [facility] MPV 7.6 fL (7.1-10.7) [facility] ID Date Data Source [id number] 10/21/2020 07:39:29 AM EDT [facility] Name Value Range Interpretation Code Description Data Lavinia rce(s) Supporting Document(s) SODIUM 145 mmol/L (136-145) [facility] POTASSIUM 4.0 mmol/L (3.6-5.2) [facility] CHLORIDE 112 mmol/L (100-108) H [facility] CO2 27 mmol/L (22-31) [facility] ANION GAP 6 mmol/L (7-16) L [facility] UREA NITROGEN 13 mg/dL (7-24) [facility] CREATININE 0.73 mg/dL (0.60-1.00) [facility] BUN/CREAT RATIO 17.8 RATIO (10.0-20.0) [facility] GLUCOSE 100 mg/dL (70-99) H [facility] CALCIUM 7.9 mg/dL (8.4-10.2) L [facility] GFR >60 ml/min/1.73m2 (>59) [facility] GFR ( AMER) >60 ml/min/1.73m2 (>59) [facility] GFR INTERPRETATION [facility] --NORMAL KIDNEY FUNCTION OR MILD DISEASE - GFR >OR= 60CHRONIC KIDNEY DISEASE - GFR 15 - 59RENAL FAILURE - GFR <15 Est. GFR calculation based on the MDRDstudy equation, which assumes a steadystate for creatinine. Est. GFR should notbe used for medication dosing. ID Date Data Source [id number] 10/21/2020 03:58:49 AM EDT [facility] UNIT NUMBER [id number] LOOD COMPONENT TYPE LR PR1 PLATELETSUNIT DIVISION 00STATUS OF UNIT TRANSFUSEDTRANSFUSION STATUS OK TO TRANSFUSE Name Value Range Interpretation Code Description Data Lavinia rce(s) Supporting Document(s) TRANSFUSE PLATELETS [facility] ID Date Data Source [id number] 10/20/2020 09:16:18 AM EDT [facility]PAT[facility] NT INFORMATIONPatient MRN Name Date of Age Gend*PT [id number] Nguyen Ibarra 1935 85 years F IPPT Location Admission Date/Time Visit ID Attending Provider --- --- --- --- EPI ID CSN Admitting Provider [id number] ---AirwayPatient location during procedure: ORUrgency: electiveDifficult airway: noAdvanced airway equipment used: noStaffingPerformed by: Vandana Sykes CRNAAnesthesiologist: Sami Briceño, AMYndications and Patient ConditionIndications for airway management: anesthesiaPreoxygenated: yesPatient position: supineIn-line stabilization: noMask ventilation: 2 - vent by mask + OA or adjuvant +/- NMBAFinal Airway/ApproachesFinal airway type: ETTNumber of attempts at final approach: 1Number of other approaches attempted: 0Final Airway DetailsFinal ETT airway: ETT - singleCuffed: yesTechnique used for successful ETT placement: direct laryngoscopy and regularstyletCricoid pressure: yesRSI: noInsertion site: oralBlade type/size: MAC 3.5ETT size: 7.0 mmMeasured from: lipsETT to lips: 21 cmPlacement verified by: chest auscultation, + ETCO2 and palpation of cuffAuscultation: CTA and equal breath sounds bilateralGrade view: grade I - full view of glottisAdditional NotesAtraumatic Name Value Range Interpretation Code Description Data Lavin[facility] rce(s) Supporting Document(s) ID Date Data Source [id number] 10/20/2020 08:05:53 AM EDT [facility] HospitalPATIE NT INFORMATIONPatient MRN Name Date of Age Gend*PT [id number] Nguyen Ibarra 1935 85 years F IPPT Location Admission Date/Time Visit ID [facility]20 1153 --- Zuhair Levine MD([id number]) EPI ID CSN Admitting Provider [id number] Zuhair Levine MD([id number]) Attestation signed by Zuhair Levine MD at 10/20/2020 8:05 AMI saw and evaluated the patient and reviewed note. I agree with the history,physical and medical decision makingSignature: Zuhair Levine MDDate: October 20, 2020Time: 8:05 AM --Inpatient History & Physical ExamSharjeet [id number] CARE PROVIDER: Hugh UrbinaATTENDING: Zuhair Levine MDINFORMANT: The source is the patient and the patient is reliable. Also medicalrecords.CC: I need to have bypass on my left leg. Increased left leg pain x3 weeks.History of Present Illn ess:This is a 85 years female who presents to [facility], being wellknown to Dr. Levine is having peripheral vascular disease. She has previouslybeen seen by Dr. Fitzpatrick, vascular surgeon while in [place]. She has hadmultiple stents and angioplasties done of bilateral lower extremities over theyears.She had, most recently left leg ischemia requiring operative intervention on04/28/2020 under the care of Dr. Levine. She had left superficial femoralocclusion as well as severe PVD. She had bypass graft from the cross femoralgraft in the left leg to the popliteal artery above the knee using a 6 mmpropatent graft. She had an operative arteriogram. She states that since thattime, the operation worked well to control her pain. However, over the last fewweeks her pain at left lower extremity has increasingly worse. She is nowhaving nearly constant pain in the left lower extremity.She is having trouble walking, standing for any long periods of time. Pain isdescribed as sharp varying with dull pains, throbbing. Day and night. She hasnot been sleeping well with the pain. She had old narcotic pain medication leftover that she has slowly used 1/day to control the pain. The pain is mostly inthe left foot but does extend calf occipitally occasionally and sometimes alongher left medial knee area where wound site was. She is noted also that her leftfoot seems more swollen since April 2020. She has not had fever or chills.She has not had any appreciable open wounds of the left foot or leg.Due to worsening pain, she saw in the office today and is deemedappropriate to proceed with operative intervention.Past Medical History:Past Medical History:Diagnosis Date Acute on chronic diastolic congestive heart failure 11/03/2016 Anemia Carotid artery occlusion COPD (chronic obstructive pulmonary disease) 11/03/2016 uses 2L oxygen at night Coronary artery disease f/u by Dr. Metzger GERD (gastroesophageal reflux disease) Heart valve disease Hiatal hernia History of GI bleed [place] (hard of hearing) Hyperlipidemia Hypertension Macular degeneration NSTEMI (non-ST elevated myocardial infarction) 11/03/2016 Osteoarthritis Peripheral vascular disease Pneumonia due to influenza A virus 11/03/2016 Stroke TIA (transient ischemic attack)Past Surgical History:Past Surgical History:Procedure Laterality Date Angioplasty and stenting Left external iliac artery stenting, left common femoral artery angioplasty COLONOSCOPY CORONARY STENT PLACEMENT 2012 x2 FEMORAL ENDARTERECTOMY Left Femoral endarterectomy with patch Left 2019 Iliac Endarterectomy Left 2019 Left profunda femoris artery endarterectomy UPPER GASTROINTESTINAL ENDOSCOPY VASCULAR SURGERY Left 12/26/2019 Procedure: RIGHT TO LEFT FEMORAL ARTERIAL BYPASS, , FEMORAL ENDARTERECTOMYLEFT, INTRAOPERATIVE ANGIOGRAM LEFT W/ SUPERFICAL ARTERIAL STENT; Surgeon: MD Vicky; Laterality: Left; VASCULAR SURGERY Left 04/28/2020 Procedure: CROSS FEMORAL TO ABOVE POPLITEAL ARTERY BYPASS OPERATIVEARTERIOGRAM; Surgeon: Zuhair Levine MD; Laterality: Left;Medications:Prior to Admission medicationsMedication Sig Start Date End Date Taking? Authorizing Provideralbuterol (PROVENTIL HFA;VENTOLIN HFA) 108 (90 BASE) MCG/ACT inhaler Inhale 2puffs 4 (four) times a day as needed for wheezing Yes Historical Provider, Rellspirin EC 81 MG EC tablet Take 81 mg by mouth daily Yes Historical Provider,Relltorvastatin (LIPITOR) 40 MG tablet Take 40 mg by mouth nightly YesHistorical Provider, Jacobyarvedilol (COREG) 3.125 MG tablet Take 3.125 mg by mouth 2 (two) times a dayYes Historical Provider, Jacobyholecalciferol (VITAMIN D3) 1000 UNITS capsule Take 1,000 Units by mouthnightly Yes Historical Provider, Jacobylopidogrel (PLAVIX) 75 MG tablet Take 75 mg by mouth daily Yes HistoricalProvider, HangiphenhydrAMINE-APAP, sleep, (TYLENOL PM EXTRA STRENGTH PO) Take 1 tablet bymouth nightly as needed (for sleep) Yes Historical Provider, Hangocusate sodium (COLACE) 100 MG capsule Take 100 mg by mouth every other dayYes Historical Provider, ferrous sulfate 325 (65 FE) MG tablet Take 325 mg by mouth daily YesHistorical Provider, fluticasone-salmeterol (ADVAIR) 500-50 MCG/DOSE DISKUS Inhale 1 puff 2 (two)times a day Yes Historical Provider, furosemide (LASIX) 20 MG tablet Take 20 mg by mouth daily Yes HistoricalProvider, HYDROcodone-acetaminophen (NORCO) 5-325 MG per tablet Take 0.5 tablets by mouthevery 6 (six) hours as needed for pain Yes Historical Provider, ipratropium-albuterol (DUO-NEB) 0.5-2.5 mg/mL nebulizer Inhale 3 mL every 6(six) hours as needed (for shortness of breath) Yes Historical Provider, lisinopril (PRINIVIL,ZESTRIL) 2.5 MG tablet Take 2.5 mg by mouth nightly YesHistorical Provider, MDMultiple Vitamins-Minerals (PRESERVISION AREDS PO) Take 1 tablet by mouthnightly Yes Historical Provider, nitroglycerin (NITROSTAT) 0.[address] 0.4 mg under the tongue every 5(five) minutes as needed for chest pain Yes Historical Provider, MDpantoprazole (PROTONIX) 40 MG tablet Take 40 mg by mouth daily Y es HistoricalProvider, MDpotassium chloride (MICRO-K) 10 MEQ CR capsule Take 10 mEq by mouth 2 (two)times a day Yes Historical Provider, HYDROcodone- acetaminophen (NORCO) 5-325 MG per tablet Take 1 tablet by mouthevery 6 (six) hours as needed for pain Max Daily Amount: 4 tablets 05/01/ Jessie Goodrich PApotassium chloride SA (K-DUR,KLOR-CON) 10 MEQ tablet Take 10 mEq by mouth 2(two) times a day 10/19/20 Historical Provider, MDrivaroxaban (XARELTO) 2.5 MG TABS Take 1 tablet (2.5 mg total) by mouth 2 (two)times a day 12/27/19 10/19/20 Karen Connergies:AllergiesAllergen Reactions Ciprofloxacin Nausea And Vomiting Nausea/vomiting is a common adverse drug reaction associated withciprofloxacin; not an allergy. Salvador Mullins, SimeonD Penicillins Facial Swelling Within 24 hours of dose at 13 years old Vancomycin Itching Received in 2017 at [facility] and 1 dose here -- no documentation ofrxn but patient appears to have been on IV steroids at the time as well. SASFamily History:Family HistoryProblem Relation Age of Onset Diabetes Mother Heart disease Father Heart disease Brother Malig Hyperthermia Neg HxSocial History:Social HistorySocioeconomic History Marital status: Spouse name: Not on file Number of children: Not on file Years of education: Not on file Highest education level: Not on fileOccupational History Not on fileSocial Needs Financial resource strain: Not on file Food insecurity: Worry: Not on file Inability: Not on file Transportation needs: Medical: Not on file Non-medical: Not on fileTobacco Use Smoking status: Former Smoker Packs/day: 1.00 Years: 55.00 Pack years: 55.00 Types: Cigarettes Last attempt to quit: 07/26/2016 Years since quittin.2 Smokeless tobacco: Never UsedSubstance and Sexual Activity Alcohol use: No Drug use: Never Sexual activity: Not on fileLifestyle Physical activity: Days per week: Not on file Minutes per session: Not on file Stress: Not on fileRelationships Social connections: Talks on phone: Not on file Gets together: Not on file Attends jainism service: Not on file Active member of club or organization: Not on file Attends meetings of clubs or organizations: Not on file Relationship status: Not on file Intimate partner violence: Fear of current or ex partner: Not on file Emotionally abused: Not on file Physically abused: Not on file Forced sexual activity: Not on fileOther Topics Concern Not on fileSocial History Narrative Not on fileLives: Live with daughter and son in law - supportive. Patient is legallyblind.Tobacco use: Smoker - copd / smoker quit 6 yrs ago, smoked 1pak every 2 days.Alcohol use: Denies.Illicit drug us: Denies use of heroin or other IV drug use. Denies use ofmarijuana, Denies cocaine/crack, or other.Review of Systems:General: No fever, chills, sweats, unexpected weight lo ss.Head: No history of head trauma or operations. Does wear hearing aids. Islegally blind.Nose: Denies deviated septum, denies epistaxis.Mouth: Denies oral sores, denies bleeding gums. Positive dentures upper andlower.Neck: Denies thyroid trouble.Cardiac: CAD s/p HI x 3.Stents in heart 2017Cardiologist: Bertin Zhou any CP/pressure. Denies history of arrhythmia. Denies palpitations.Pulmonary: Positive for COPD denies SOB. Denies recent pneumonia/bronchitis.Denies asthma. Denies history of pulmonary embolism. Denies recent cough.Uses a Neb every once in a whileAdvair, no nebOxygen supplemental -uses at night only - 2L continuousHave sleep apnea.GI: Denies abdominal surgery. Denies ulcerative colitis/Crohn's disease.Denies ulcers of stomach/small intestine. Denies changes in bowel habitsincluding no change in BMs. Color, consistency, caliber, and frequency of BMsis unchanged. Denies hematochezia. Denies hematemesis. Denies anorexia.Regular daily BMsColonoscopy and Endoscopy, have been performed in the past. Does not followwith gastroenterology regularly.: Denies history of nephrolithiasis. Denies recent UTI. Denies urgency,frequency, foul odor of urine. Denies hematuria.Held diuretic today.Children 6 daughters - vaginal deliveries.Musculoskeletal: Denies significant bony fractures at universal extremities.Denies h/o joint replacement. Denies back trouble.Peripheral Vascular: Please refer to HPI. Denies history of DVT.Hematologic: Denies history of bleeding disorders, although is on Plavix andaspirin. Often has bruising of extremities. No hematomas.. Denies HepatitisB, or C. Denies HIV.Neurologic:Positive stroke, had one here at [facility] in 2017. Symptoms only lasted a fewdays and then completely resolved. No residual effect.Denies history of seizures, no psychiatric history.Vitals:Vitals: 10/19/20 1151BP: 155/71Pulse: 76Resp: 17Temp: 97 FSpO2: 95%Temp: [97 F] 97 FHeart Rate: [76] 76Resp: [17] 17BP: (155)/(71) 155/71Physical Exam:General: Well appearing 85 years female. Pleasant, cooperative. NAD.Delightful elderly white female.Skin: Warm, pink, and dry. She has multiple skin lesions of her abdominal skinand up towards her breast area. They are light brown in color and raised. Nobleeding from the sites, no erythema.Head: Atraumatic, Normocephalic.Eyes: Pupils equal and round, EOMI. Sclerae anicteric. She does look to thesite of the instead of directly at my face, clearly has some visualdifficulties.Ears: Hearing is grossly intact, with hearing aids in place.. External earsare normal.Nose: No external deformity.Mouth: Dentures intact. No oral sores, no bleeding gums. No deviation ofextended tongue. Airway grade 2Neck: No thyroidomegaly, No thyroid masses, trachea midline. Nolymphadenopathy.Chest: Symmetric rise and fall of chest with respirations. No externalbulges/heaves.Cardiac: RRR, S1,S2 clearly heard.Pulmonary: CTA anteriorly, respiratory effort is good. No wheezes, no rhonchi,no rales.Abdomen : Two-parent abdomen BS present x 4. Soft, Non-tender, Non-distended.No masses. No palpable organomegaly.Musculoskeletal: No gross deformity to universal extremities. Grossly there isgood ROM at back.Neurologic: Alert and oriented x 3. Cranial nerves II-XII grosslyintact.Excellent facial symmetry. No deviation of extended tongue. .Excellent recall of both remote and recent memory. Psychologically appropriateto examination.Extremities:LLE: Tender to palpation of skin at left lower extremity from the knee down.Left foot is cooler versus right.Diminished plantar/dorsiflexion.Diminished sensation to light touch versus right.No ulcers.No palpable PT & DP.Doppler unavailable to me in the emergency department at this time.There is only slight left foot edema versus right. Pitting.RLE: RIGHT calf soft. Foot warm.Good plantar/dorsiflexion.Good sensation to light touch.Motor/sensation intact.No ulcers. ASS ESSMENT AND PLAN: CODE STATUS: Discussed with pt - she understands and wishes DNR. She statesher daughters are aware of her wishes.1. Severe PVD: left lower extremity ischemia - Admit to Dr. Levine - Will allow oral diet, n.p.o. after midnight for planned operativeintervention. - Plan for operative intervention of left lower extremity femoral tibialbypass on 10/20/2020 - I will discuss with Dr. Levine regarding if cardiac clearance is necessary. - Pain management - Ambulate as tolerated - Will continue Plavix, aspirin COVID testing: Negative today . F/E/N - IV Fluids: Gentle hydration. - LABS: CMP CBC, magnesium, PTT, PT/INR - Diet: Low-fat low-sodium now. N.p.o. after midnight tonight.3. Cardiac: Hyperlipidemia/ HTN - Will resume her Lipitor, Plavix, aspirin, Lasix, Zestril, Coreg - Check EKG - I will discuss with Dr Levine regarding cardiac clearance.4. Pulmonary: COPD - Dulera - Duoneb - Supplemental oxygen as needed - Pneumonia prophylaxis - Incentive spirometer use with frequencyThe patient has been encouraged to contact appropriate medical staff with anyquestions or concerns she may have in the interim until seen in evaluation by apractitioner again.Any further adjustments to the above plan will be directed by Dr. Levine.Signature: Belen Swann PADate: October 19, 2020Time: 3:34 PM Name Value Range Interpretation Code Description Data Lavinia rce(s) Supporting Document(s) ID Date Data Source [id number] 10/20/2020 06:59:20 AM EDT [facility] Name Value Range Interpretation Code Description Data Lavinia rce(s) Supporting Document(s) POC NOVA GLU 106 mg/dL (70-99) H [facility] PERFORMED BY [facility] CLINICAL STAFF ID Date Data Source [id number] 10/22/2020 12:50:07 AM EDT [facility] SPEC EXP DATE 10/21/2020ATI ENT ABO/Rh O POSITIVEANTIBODY SCREEN NEGATIVETESTING SITE PERFORMED AT [address] [place] [address] [id number] BANK COMMENT BLOOD TYPE CONFIRMED.UNIT NUMBER [id number] COMPONENT TYPE LEUKOPOOR RED CELLSUNIT DIVISION 00STATUS OF UNIT TRANSFUSEDTRANSFUSION STATUS OK TO TRANSFUSECROSSMATCH RESULT COMPATIBLEUNIT NUMBER [id number] COMPONENT TYPE LEUKOPOOR RED CELLSUNIT DIVISION 00STATUS OF UNIT REL F ROM ALLOCTRANSFUSION STATUS OK TO TRANSFUSECROSSMATCH RESULT COMPATIBLE Name Value Range Interpretation Code Description Data Lavinia rce(s) Supporting Document(s) TYPE AND SCREEN [facility] ID Date Data Source [id number] 10/19/2020 10:01:00 PM EDT [facility] Name Value Range Interpretation Code Description Data Lavinia rce(s) Supporting Document(s) SODIUM 142 mmol/L (136-145) [facility] POTASSIUM 3.6 mmol/L (3.6-5.2) [facility] CHLORIDE 107 mmol/L (100-108) [facility] CO2 28 mmol/L (22-31) [facility] ANION GAP 7 mmol/L (7-16) [facility] UREA NITROGEN 16 mg/dL (7-24) [facility] CREATININE 0.88 mg/dL (0.60-1.00) [facility] BUN/CREAT RATIO 18.2 RATIO (10.0-20.0) [facility] GLUCOSE 209 mg/dL (70-99) H [facility] CALCIUM 8.4 mg/dL (8.4-10.2) [facility] TOTAL PROTEIN 6.8 g/dL (6.4-8.2) [facility] ALBUMIN 3.5 g/dL (3.2-4.5) [facility] GLOBULIN 3.3 g/dL (2.7-4.3) [facility] ALB/GLOB RATIO 1.1 RATIO [facility] ALKALINE PHOSPHATASE 67 U/L (45-117) [facility] BILIRUBIN,TOTAL 0.4 mg/dL (0.0-1.0) [facility] PLEASE NOTE:Total bilirubin results may be falselyelevated in patients taking Eltrombopag. AST (SGOT) 11 U/L (11-39) [facility] ALT (SGPT) 22 U/L (12-78) [facility] GFR >60 ml/min/1.73m2 (>59) [facility] GFR ( AMER) >60 ml/min/1.73m2 (>59) [facility] GFR INTERPRETATION [facility] --NORMAL KIDNEY FUNCTION OR MILD DISEASE - GFR >OR= 60CHRONIC KIDNEY DISEASE - GFR 15 - 59RENAL FAILURE - GFR <15 Est. GFR calculation based on the MDRDstudy equation, which assumes a steadystate for creatinine. Est. GFR should notbe used for medication dosing. ID Date Data Source [id number] 10/19/2020 10:01:00 PM EDT [facility] Name Value Range Interpretation Code Description Data Lavinia rce(s) Supporting Document(s) MAGNESIUM 2.0 mg/dL (1.7-2.4) [facility] ID Date Data Source [id number] 10/19/2020 09:42:53 PM EDT [facility] Name Value Range Interpretation Code Description Data Lavinia rce(s) Supporting Document(s) PT 11.7 s (9.2-11.9) [facility] INR 1.12 [facility] SUGGESTED THERAPEUTIC RANGES USING INR F ORSTABILIZED ANTICOAGULATED PATIENTS:STANDARD DOSE THERAPY INR 2.0-3.0 DVT, PE, PREVENT DVT OR EMBOLISMHIGH DOSE THERAPY INR 2.5-3.5 PREVENT EMBOLISM FROM MECHANICAL HEART VALVE ID Date Data Source [id number] 10/19/2020 09:42:53 PM EDT [facility] Name Value Range Interpretation Code Description Data Lavinia rce(s) Supporting Document(s) APTT 25.6 s (22.0-34.3) [facility] ID Date Data Source [id number] 10/19/2020 09:32:22 PM EDT [facility] Name Value Range Interpretation Code Description Data Lavinia rce(s) Supporting Document(s) WBC 7.3 10*3/uL (4.1-11.0) [facility] RBC 3.58 10*6/uL (4.00-5.40) L [facility] HGB 11.3 g/dL (12.0-16.0) L [facility] HCT 33.2 % (36.0-47.0) L [facility] MCV 92.7 fL (80.0-95.0) [facility] MCH 31.6 pg (27.0-32.0) [facility] MCHC 34.1 g/dL (32.0-36.0) [facility] RDW 14.8 % (10.5-14.5) H [facility] PLT 190 10*3/uL (150-450) [facility] MPV 7.5 fL (7.1-10.7) [facility] ID Date Data Source [id number] 10/19/2020 12:51:25 PM EDT [facility] Name Value Range Interpretation Code Description Data Lavinia rce(s) Supporting Document(s) EKG [facility] PHMXJq1iBvBOBuEyx4RhHsDwFRIfEI9uapr4W5K8dUNyA7NexRTgi3ozJ5ThQ2FhTNBxEDUPSJ2JjWYb jb2 [file] P/71v/6WT5hr2ciHm/7j//perforator operator oil well/+m//fO//PMf/59/mc4rqWI/57996aj8/y6t636OyxWlAgKHdGMCkHXW cvfLLL9da/zMXNtU50MZWpTzAbUTIjpp7D8tr/qMq1fVLA1IEq8Cd50ElEs3UEsWGYADLklWGWDmsuZQ yE4ZOzBMEFfZsWB3yMCJNBIohlvHOUJvxiUAJPatnm [file] NUabkaWtgtw3PwoUHr97bZmowC+uee/nmn7vPu5+Crawford w3p5urKmZ3tEy8lf0qE7r6L+VtlXe4sK8l5hs8mxyqb3Ot+jy9EO+ujnd7/qa7s4XyxPWgybaB4t6n0a qO/Ufi4oawHojGg1uFeawdNj4mUCIHAStD7DlsW8vMu40Z2Hc6qgSPrrxpchm5ufzC4nxnP+eL5OdaUh ud3/4LuZF8153yecpgJKocW4tInx5PFrWcDg736PHa 6PxuX1/nd+f27jg7mpyS8YX657fwq17/2w72/q14qkrsajFM0u3yNEDo2eI6beC+3f42e/8ku3QA2864 tXL0rJpmQ+voc8A6+dj6gM4x6/S0pEh4mXaRXbY9wFjvqwk5ISz2edoNw2cTw64JnOOW60mR/D37P5c0 U1eecPcTinystkrnE7A0Pdr5/5Yv011WuKYUZTdLD4 7XkN+1R/BT5vVNVxSFJVCE+gU0ULwla5l2tVL9xMILWOzSAsTgQlOhsHHkA83dp44YT/fd2NsQUfE+DP ly2OzLt8vo0nfWbfL+TPiC/J4zo5sD14oNuCNRuSeU4FIcBqwSh1J3SM8OPuuW0XX9Lqg07zoLZgqGYv uato52PVilNdONbg6oivQa3JgQXhz+QKOkXF9vxJ7z 8ruG/K8kw9mA0axev4j4z4g5+dwO6fVu1V9BF97AmJ042T011X340A19t1MBDOt9ikyDo+/ZYVy4Xul9 Rjx8eTvZPyxrjXWY4R189I726S490Y33lx1SQys+OHxx+FQqbNbV9aa8sg8MLmu+FXehrPsDqFAET3s8 zyz4V4SmbI9hRfhcw8E50ns4P43z88G/rmH/ru2Fdp hHG/Vog0aPX4FuYkA4vowhdnqcW+xDyj3k54lV+qZjkp01R39hkWTKlM5zBM3N9dWbRdPnEHi5VTS+Me zftbt/d2XN70P76l5FkvHB+P0WszpH6bWuaw22UzsUmEwwubWtr1uSy83aUj+IAnT7tH6k1zvieV5Mjn +tfrsAS46sp9R1Bc9cdUZPryuBN/f3anUE/b1a1/T4 hslxS0KB+/RBXHf0/aJmaS43p0+RvtX43T4+Q4bPv10GF821F0w9nZlftox/BZZgCXbA+gd3prMI/K7f /T9uLIsUnlCwn+br/FlgC+00X+kO5ha6iECH36SsJKWMQHV4h00/mn/xR/HwUuAqsfu2jemf2N3FFkTj MILL REPRESENTATIVE/iHe/20Yf+scIozcxzxkub6gyh2KD/LLw/+fpyPu V/UgT9c5T2MR+4hqb6i3jr2e04fyvbijU5GBzAj4mhuXnurIlapt/Zee+uE/LmvXs+UJ1Cgfy2Yi3ih1 NPWiBgvUtR2k1U0089fbk5raI1+HaRfzDRxzmp6i5H9WhsIyzAtMj47PfkxtlnUtP+1f2qp2sdgtMeon /lcknzzKt9C290f3zgISNcnGhswVtWOafqVrZ5qjta I7/Tayla/5ftYIaYP4JjECVKaOsRG4eEwTyivoGy65G7hXHwLFXDRU2DA2dv/rdh056B+BBhZw92l74C+B UfZYCoRJTb7MdpV+13FfONf0kjU5vK59Yhkj/Sll/jtIZZXldR05PfH2l3vnF3bTLKr+nZg35pcrrkUv GC+A0cZFF57i6dtsbVjB5/6P0OVMgNcM+6jNu4jC5O ZgPV7RRgY2wmr18F2S5fPHaElE3krGPgIj76nGvtWQ/Ltx7nO4mK+YM7o8d7hil6bZnA/zsgw2xDwxvk kXD93/4qF5Bg/d5+Gh+gT01QwDO40wYiHx3/6Yh6bKiKOk+js+7/96C0q85Iio1/2f1XT8Aw4vJC5k9n Tv/h5rvvgAmo7aykSo0J+WCru2qgeWY9N0VDCfv89X e+o2WzCWQLWQIUk7wCaFpTwjD/NcNT2+79x2705P5d7pisilQHgk1FuP2QkMsvb9Mhw3lyB6Xx3zWX/6 NQlemENe2Vfi7hi7treerUEc7Ggu7+tumTqW5ghzV/fX+wO6hgyR/Mt+8UbfL9q/bj/zEG36LQs8+/hb 08P/d02P5/nFI318Ew5h1o/gscekyqb944e1QKs6+m [file] B3QnIsZD1Q ID Date Data Source [id number] 10/19/2020 12:31:00 PM EDT [facility] Name Value Range Interpretation Code Description Data Lavinia rce(s) Supporting Document(s) SARS coronavirus 2 RNA [Presence] in Res piratory specimen by STEPH with probe detection NOT DETECTED [facility] This [facility] was reported by [facility]. ID Date Data Source [id number] 10/19/2020 01:48:55 PM EDT [facility] Name Value Range Interpretation Code Description Data Lavinia rce(s) Supporting Document(s) SPECIMEN DESCRIPTION [facility] INFLUENZA A (NEG) [facility] INFLUENZA B (NEG) [facility] RSV (NEG) [facility] COMMENT [facility] THE [place] FDA HAS MADE THIS TEST AVAILABL EUNDER AN EMERGENCY USE AUTHORIZATION(EUA) FOR THE DETECTION AND/OR DIAGNOSISOF THE VIRUS THAT CAUSES COVID-19.PERFORMED AT [address] [place] [id number] COVID19 RESULT (NDET) [facility] THIS ASSAY AMPLIFIES AND DETECTSTHE TARG ET RNA USING REAL-TIME PCR.TESTING PERFORMED ON [employer]ID GENEXPERTNEGATIVE 2019_NCOV RT-PCR RESULTS DONOT PRECLUDE 2019_NCOV INFECTION ANDSHOULD NOT BE USED THE SOLE BASISFOR PATIENT MANAGEMENT DECISIONS. FIRST TEST [facility] EMPLOYED IN HLTHCARE [facility] SYMPTOMATIC [facility] DATE OF SYMPT ONSET [facility] HOSPITALIZED [facility] [place] [facility] CONGREGATE CARE SET [facility] ID Date Data Source [id number] 10/05/2020 11:32:00 AM EST [facility] ([facility]) Name Value Range Interpretation Code Description Data Lavinia rce(s) Supporting Document(s) Creatinine For GFR 0.92 mg/dL 0.55-1.30 [facility] ([facility]) Glomerular Filtration Rate Laboratory test result [facility] ([facility]) <content>Units are mL/min/1.73 m2</content>
<content></content>
<content>Chronic Kidney Disease Staging per NKF:</content>
<content></content>
<content>Stage I & II GFR >=60 Normal to Mildly Decreased</content>
<content>Stage III GFR 30- 59 Moderately Decreased</content>
<content>Stage IV GFR 15-29 Severely Decreased</content>
<content>Stage V GFR <15 Very Little GFR Left</content>
<content>ESRD GFR <15 on POWER LINEWORKER</content>
<content></content> ID Date Data Source [id number] 10/05/2020 11:32:00 AM EST [facility] ([facility]) Name Value Range Interpretation Code Description Data Lavinia rce(s) Supporting Document(s) Urea nitrogen [Mass/volume] in Serum or Plasma 19 mg/dL 7-18 [facility] ([facility]) <content>note:<nlbl:demographic_changed> </content>
<content></content> ID Date Data Source [id number] 10/01/2020 01:01:00 PM EST [facility] ([facility]) Name Value Range Interpretation Code Description Data Lavinia rce(s) Supporting Document(s) Bypass Graft Ultrasound Lower Extremity Left Laboratory test result [facility] ([facility]) ID Date Data Source [id number] 08/11/2020 12:53:00 PM EST [facility] ([facility], ) Name Value Range Interpretation Code Description Data Laivnia rce(s) Supporting Document(s) PDFReport Laboratory test result [facility] ([facility], ) FVC-Pre 1.50 L [facility] ([facility], ) FVC-Pred 2.43 L [facility] ([facility]) FVC-%Pred-Pre 61 L [facility] ([facility]) FVC-LLN 1.74 L [facility] ([facility], ) Fev1-Pred 1.80 L [facility] ([facility]) Fev1-Pre 0.87 L [facility] ([facility]) Fev1-LLN 1.21 L [facility] ([facility]) Fev1-%Pred-Pre 48 L [facility] ([facility]) Fev6-Pred 2.29 L [facility] ([facility]) Fev6-Pre 1.50 L [facility] ([facility]) Fev6-%Pred-Pre 65 L [facility] ([facility]) Upw9eea-Dfxz 73 % [facility] ([facility]) Fev6-LLN 1.61 L [facility] ([facility]) Ghe8clh-%Pred-Pre 79 % [facility] ([facility]) Izs3osn-Yge 58 % [facility] ([facility]) Gpy8jae-Kujz 94 % [facility] ([facility]) Vyn4vxk-DFG 63 % [facility] ([facility]) Pki4ttd-Eja 100 % [facility] ([facility]) FEFMax-Pred 4.39 L/E/sec [facility] ([facility]) Iji9vcs-%Pred-Pre 106 % [facility] ([facility]) FEFMax-Pre 3.20 L/E/sec [facility] ([facility]) FEFMax-%Pred-Pre 72 L/E/sec [facility] ([facility]) Kpq4429-Qgv 0.44 L/E/sec [facility] ([facility], ) Cez2121-Yjnf 1.20 L/E/sec [facility] ([facility]) FEFMax-LLN 2.68 L/E/sec [facility] ([facility]) Sas9320-%Pred-Pre 36 L/E/sec [facility] ([facility]) Dad5497-IAE -0.04 L/E/sec [facility] ([facility]) Wpp6kar1-Dlkg 77 % [facility] ([facility], ) ExpTime-Pre 5.49 sec [facility] ([facility]) Sev8zyi8-Gal 58 % [facility] ([facility]) Jip2jbq3-%Pred-Pre 75 % [facility] ([facility]) Mlq8xnn7-JOM 68 % [facility] ([facility]) ID Date Data Source [id number] 07/08/2020 12:44:00 PM EST [facility] ([facility]) Name Value Range Interpretation Code Description Data Lavinia rce(s) Supporting Document(s) Bypass Graft Ultrasound Lower Extremity Left Laboratory test result [facility] ([facility]) ID Date Data Source [id number] 05/07/2020 11:16:15 AM EDT [facility] INFORMATIONPatient MRN Name Date of Age Gend*PT [id number] Nguyen Ibarra 1935 84 years F IPPT Location Admission Date/Time Visit ID Attending [id number] 04/28/20 0538 --- --- EPI ID CSN Admitting Provider [id number] Zuhair Levine MD([id number]) Attestation signed by Zuhair Levine MD at 05/07/2020 11:16 AMI saw and evaluated the patient and reviewed note. I agree with the history,physical and medical decision makingSignature: HANG Sahaate: May 07, 2020Time: 11:16 AM Surgical Discharge SummarySushelleyroya [facility] [id number] date: 04/28/2020Admitting Physician: HANG Sahaischarge date and time: Pt being discharged on May 01, 2020 to her homeDischar Physician: Debra Mark Diagnosis: Peripheral vascular diseaseSecondary Diagnoses:Active Hospital Problems Diagnosis Date Noted Hypertension Hyperlipidemia GERD (gastroesophageal reflux disease) Coronary artery disease f/u by Dr. Metzger Anemia Peripheral vascular disease PVD (peripheral vascular disease) 12/24/2019 COPD (chronic obstructive pulmonary disease) 11/03/2016Resolved Hospital ProblemsNo resolved problems to display.Discharge Medications:Your medication listCHANGE how you take these medications Instructions Last Dose Given Morning Afternoon Evening Bedtime As NeededHYDROcodone-acetaminophen 5-325 MG per tabletCommonly known as: NORCOWhat changed: how much to take Another medication with the same name was removed. Continue taking thismedication, and follow the directions you see here. Take 1 tablet by mouth every 6 (six) hours as needed for pain Max Daily Amount:4 tabletsCONTINUE taking these medications Instructions Last Dose Given Morning Afternoon Evening Bedtime As Neededalbuterol 108 (90 Base) MCG/ACT inhalerCommonly known as: PROVENTIL HFA;VENTOLIN HFA Inhale 2 puffs 4 (four) times a day as needed for wheezingatorvastatin 40 MG tabletCommonly known as: LIPITOR Take 40 mg by mouth nightlycarvedilol 3.125 MG tabletCommonly known as: COREG Take 3.125 mg by mouth 2 (two) times a daycholecalciferol 25 MCG (1000 UT) capsuleCommonly known as: VITAMIN D3 Take 1,000 Units by mouth nightlyclopidogrel 75 MG tabletCommonly known as: PLAVIX Take 75 mg by mouth dailydocusate sodium 100 MG capsuleCommonly known as: COLACE Take 100 mg by mouth 2 (two) times a dayferrous sulfate 325 (65 FE) MG tablet Take 325 mg by mouth dailyfluticasone-salmeterol 250-50 MCG/DOSE DISKUSCommonly known as: ADVAIR Inhale 1 puff 2 (two) times a dayfurosemide 20 MG tabletCommonly known as: LASIX Take 20 mg by mouth dailyipratropium-albuterol 0.5-2.5 mg/mL nebu lizerCommonly known as: DUO-NEB Inhale 3 mL every 6 (six) hours as needed (for shortness of breath)lisinopril 2.5 MG tabletCommonly known as: PRINIVIL,ZESTRIL Take 2.5 mg by mouth nightlynitroglycerin 0.4 MG SL tabletCommonly known as: NITROSTAT Place 0.4 mg under the tongue every 5 (five) minutes as needed for chest painpantoprazole 40 MG tabletCommonly known as: PROTONIX Take 40 mg by mouth dailypotassium chloride SA 10 MEQ tabletCommonly known as: K-DUR,KLOR-CON Take 10 mEq by mouth 2 (two) times a dayPRESERVISION AREDS PO Take 1 tablet by mouth nightlyrivaroxaban 2.5 MG TabsCommonly known as: XARELTO Take 1 tablet (2.5 mg total) by mouth 2 (two) times a dayTYLENOL PM EXTRA STRENGTH PO Take 1 tablet by mouth nightly as needed (for sleep)STOP taking these medicationsdoxycycline 100 MG tabletCommonly known as: VIBRA-TABSdoxycycline 40 MG capsuleCommonly known as: ORACEAWhere to Get Your MedicationsThese medications were sent to [facility] [place], [place] [facility] [address] [facility] [id number] HYDROcodone-acetaminophen 5-325 MG per tabletIndication for Admission: left leg painAdmission H&P: This is an 84 years old female with a history of CAD,HI with stenting, HTN, HLD, CHF, carotid artery disease, valvular heart disease,COPD uses 2L of oxygen at night, GERD, history of GI bleed, WAMPANOAG, maculardegeneration, OA, stroke, TIA, and PVD with multiple revascularizations in thepast. Patient has been complaining of left lower extremity pain for the past 2years. The pain aggravates with walking or standing and alleviates with r estand opioid medications. Patient denies any numbness, tingling or change intemperature of bilateral lower extremities. Reports right calf edema anddraining sore. The patient met with Dr. Levine, options were discussed and theyhave elected to under go CREATION, BYPASS, LEFT FEMORAL POPLITEAL on 04/28/2020. Hospital Course & Complications: Pt was admitted on 04/28/20 for PVD andunderwent a bypass from cross femoral graft on left leg to above knee poplitealartery with propaten graft and intraop angiogram with Dr. Levine. Pt was undergeneral anesthesia, there were no complications, EBL was 200 ML.Post- operatively Pt was hemodynamically and neurologically stable.Patient had acute blood loss anemia (hct 23.9) 04/30 and received a unit of PRBC.She felt much better in general after receiving the blood.Pt denies fevers, chills, night sweats, CP, pressure tightness heavinessdiscomfort, SOB, cough and abdominal pain. Pt is eating well, ambulatory,, isvoiding adaquetely and pain is controlled. D/c instructions were discussed. Afollow up appointment with Dr Levine on 05/13 at 9:45 am. Pt was I-stopped and itdeemed appropriate for hydrocodone. Pt will continue taking plavix and xarelto.Pt understands wound care instructions, they are agreeable to d/c and have nofurther questions.Past Medical History:Past Medical History:Diagnosis Date Acute on chronic diastolic congestive heart failure 11/03/2016 Anemia Carotid artery occlusion COPD (chronic obstructive pulmonary disease) 11/03/2016 uses 2L oxygen at night Coronary artery disease f/u by Dr. Metzger GERD (gastroesophageal reflux disease) Heart valve disease Hiatal hernia History of GI bleed WAMPANOAG (hard of hearing) Hyperlipidemia Hypertension Macular degeneration NSTEMI (non-ST elevated myocardial infarction) 11/03/2016 Osteoarthritis Peripheral vascular disease Pneumonia due to influenza A virus 11/03/2016 Stroke TIA (transient ischemic attack)Surgical Procedures:Procedure(s):CROSS FEMORAL TO ABOVE POPLITEAL ARTERY BYPASS OPERATIVE ARTERIOGRAM (Left)Significant Diagnostic Studies:Labs:BMP:Lab ResultsComponent Value Date NA 146 (H) 05/01/2020 K 4.3 05/01/2020 CL 113 (H) 05/01/2020 CO2 26 05/01/2020 ANIONGAP 7 05/01/2020 CALCIUM 8.2 (L) 05/01/2020 GLU 130 (H) 05/01/2020 BUN 16 05/01/2020 CREATININE 0.81 05/01/2020 GFRAA >60 05/01/2020 GFRNONAA >60 05/01/2020CBC Brief:Lab ResultsComponent Value Date WBC 8.5 05/01/2020 HGB 9.0 (L) 05/01/2020 HCT 27.0 (L) 05/01/2020 PLT 137 (L) 05/01/2020Treatments: See above Hospital Course & Complications.Discharge Exam:Most Recent Vital SignsTemp: [98 F-98.9 F] 98.7 FHeart Rate: [76-93] 92Resp: [14-16] 14BP: (98-142)/(47-65) 107/53Physical Exam:General: WDWN 84 years White or female, lying in bed, awake/alertcomfortable in NAD.Head: NC/AT, without obvious deformity.Heart: RRR S1S2, without audible M/R/G.Lungs: CTAB without W/R/R or cough. Without increased inspiratory effort. Not onO2.Abdomen: Soft, NT, ND, + BS.Groins: right groin: firm; small hematoma; mildly tender; mild ecchymosisExtremities: Right: mild drainage from mid of incision - skin is notapproximated perfectly; applied dermabond (still some drainage); appliedsteristrips over this. Bleeding has stopped completely (observed for one hour).Ecchymosis around her incision; tender to touch;Warmly perfused; +DP/PT; no calf tendernesLLE: warmly perfused (patient had cellulitis prior to admission - this hascleared completed); no calf tendernessNeuro: AAOx3, answers questions appropriately, baggage clerk strength equal b/l. No grossneurological deficits.Items needing special attention:- Follow up appointment with Dr. Levine scheduled for May 13 at 9:45 am- Continue plavix and xarelto 2.5 bidDischarged Condition:goodDisposition: Home or Self CareSignature: JOJO Mark-CDate: May 01, 2020Time: 7:38 AM Name Value Range Interpretation Code Description Data Lavinia rce(s) Supporting Document(s) ID Date Data Source [id number] 05/01/2020 07:59:14 AM EDT [facility] Name Value Range Interpretation Code Description Data [facility] rce(s) Supporting Document(s) SODIUM 146 mmol/L (136-145) H [facility] POTASSIUM 4.3 mmol/L (3.6-5.2) [facility] CHLORIDE 113 mmol/L (100-108) [facility] CO2 26 mmol/L (22-31) [facility] ANION GAP 7 mmol/L (7-16) [facility] UREA NITROGEN 16 mg/dL (7-24) [facility] CREATININE 0.81 mg/dL (0.60-1.00) [facility] BUN/CREAT RATIO 19.8 RATIO (10.0-20.0) [facility] GLUCOSE 130 mg/dL (70-99) H [facility] CALCIUM 8.2 mg/dL (8.4-10.2) L [facility] GFR >60 ml/min/1.73m2 (>59) [facility] GFR ( AMER) >60 ml/min/1.73m2 (>59) [facility] GFR INTERPRETATION [facility] --NORMAL KIDNEY FUNCTION OR MILD DISEASE - GFR >OR= 60CHRONIC KIDNEY DISEASE - GFR 15 - 59RENAL FAILURE - GFR <15 Est. GFR calculation based on the MDRDstudy equation, which assumes a steadystate for creatinine. Est. GFR should notbe used for medication dosing. ID Date Data Source [id number] 05/01/2020 07:10:16 AM EDT [facility] Name Value Range Interpretation Code Description Data Lavinia rce(s) Supporting Document(s) WBC 8.5 10*3/uL (4.1-11.0) [facility] RBC 2.99 10*6/uL (4.00-5.40) L [facility] HGB 9.0 g/dL (12.0-16.0) L [facility] HCT 27.0 % (36.0-47.0) L [facility] MCV 90.4 fL (80.0-95.0) [facility] MCH 30.1 pg (27.0-32.0) [facility] MCHC 33.3 g/dL (32.0-36.0) [facility] RDW 14.8 % (10.5-14.5) H [facility] PLT 137 10*3/uL (150-450) L [facility] MPV 8.0 fL (7.1-10.7) [facility] ID Date Data Source [id number] 05/03/2020 12:40:14 AM EDT [facility] SPEC EXP DATE 05/03/2020PATI ENT ABO/Rh O POSITIVEANTIBODY SCREEN NEGATIVETESTING SITE PERFORMED AT [address] [place], [place] [address]BLOOD BANK COMMENT BLOOD TYPE CONFIRMED.UNIT NUMBER [id number] COMPONENT TYPE LEUKOPOOR RED CELLSUNIT DIVISION 00STATUS OF UNIT TRANSFUSEDTRANSFUSION STATUS OK TO TRANSFUSECROSSMATCH RESULT COMPATIBLEUNIT NUMBER [id number] COMPONENT TYPE LEUKOPOOR RED CELLSUNIT DIVISION 00STATUS OF UNIT REL F ROM ALLOCTRANSFUSION STATUS OK TO TRANSFUSECROSSMATCH RESULT COMPATIBLE Name Value Range Interpretation Code Description Data Lavinia rce(s) Supporting Document(s) TYPE AND SCREEN [facility] ID Date Data Source [id number] 04/30/2020 07:27:40 AM EDT [facility] Name Value Range Interpretation Code Description Data Lavinia rce(s) Supporting Document(s) SODIUM 145 mmol/L (136-145) [facility] POTASSIUM 4.0 mmol/L (3.6-5.2) [facility] CHLORIDE 111 mmol/L (100-108) H [facility] CO2 29 mmol/L (22-31) [facility] ANION GAP 5 mmol/L (7-16) L [facility] UREA NITROGEN 12 mg/dL (7-24) [facility] CREATININE 0.87 mg/dL (0.60-1.00) [facility] BUN/CREAT RATIO 13.8 RATIO (10.0-20.0) [facility] GLUCOSE 128 mg/dL (70-99) H [facility] CALCIUM 8.2 mg/dL (8.4-10.2) L [facility] GFR >60 ml/min/1.73m2 (>59) [facility] GFR ( AMER) >60 ml/min/1.73m2 (>59) [facility] GFR INTERPRETATION [facility] --NORMAL KIDNEY FUNCTION OR MILD DISEASE - GFR >OR= 60CHRONIC KIDNEY DISEASE - GFR 15 - 59RENAL FAILURE - GFR <15 Est. GFR calculation based on the MDRDstudy equation, which assumes a steadystate for creatinine. Est. GFR should notbe used for medication dosing. ID Date Data Source [id number] 04/30/2020 07:06:39 AM EDT [facility] Name Value Range Interpretation Code Description Data L[facility](s) Supporting Document(s) WBC 8.3 10*3/uL (4.1-11.0) [facility] RBC 2.63 10*6/uL (4.00-5.40) L [facility] HGB 7.9 g/dL (12.0-16.0) L [facility] HCT 23.9 % (36.0-47.0) L [facility] MCV 90.9 fL (80.0-95.0) [facility] MCH 29.9 pg (27.0-32.0) [facility] MCHC 33.0 g/dL (32.0-36.0) [facility] RDW 14.5 % (10.5-14.5) [facility] PLT 149 10*3/uL (150-450) L [facility] MPV 8.0 fL (7.1-10.7) [facility] ID Date Data Source [id number] 04/29/2020 12:25:59 PM EDT [facility] INFORMATIONPatient MRN Name Date of Age Gend*PT [id number] Nguyen Ibarra 1935 84 years F IPPT Location Admission Date/Time Visit ID Attending [id number] 04/28/20 0538 --- Zuhair Levine MD([id number]) EPI ID CSN Admitting Provider [id number] Zuhair Levine MD([id number]) [place] [address] OPERATIVE REPORT OPNAME: NGUYEN IBARRA#: [id number] #: ORPOPL ADMISSION DATE: 04/28/2020DOB: 1935 SEX: F PT TYPE: I SURACCT #: [id number] CARE PHYSICIAN: HUGH URBINADATE OF OPERATION: 04/28/2020PREOPERATIVE DIAGNOSES:1. Left leg ischemia.2. Left superficial femoral occlusion.3. Severe peripheral vascular disease.OPERATIVE PROCEDURES:1. Bypass graft from the cross femoral graft in the left leg to thepopliteal artery above the knee using a 6 mm Propaten graft.2. An operative arteriogram.SURGEON:Zuhair Levine MDASSISTANT:JOSELUIS WeaverNESTHESIA:General endotracheal.DESCRIPTION OF PROCEDURE:The left leg was prepped and draped. He has a cross femoral graft. Thesuperficial femoral artery is occluded. He is markedly ischemic in the legwith ulceration and rest pain. After adequate time-out was done, the leghad been prepped and draped. I made a small incision over the crossfemoral graft in the left groin. Exposed the graft, controlled itproximally and distally. I then exposed the popliteal artery above theknee with a medial approach. Skin, subcutaneous tissue, fascia was opened. Popliteal space was entered. The popliteal artery was sharply dissected,sounded with loop, the artery is soft. Patient was given 5000 units ofheparin. A 6 mm Propaten graft was then beveled and sutured to thepopliteal artery with a running suture of 6-0 Prolene. This was thentunneled, brought to the left groin. Graft was occluded proximally anddistally, anteriorly opened and the Propaten graft was beveled and suturedto it with a 6-0 Prolene suture. Hemostasis was good in the groin. Thisarea was closed with deeper layers with 2-0 Vicryl, skin with subcuticularsuture and distal anastomosis once started perfusing his bleeding from theneedle holes, which needed interrupted sutures. I had a good signal in thepopliteal artery beyond the graft, but in the foot there was no goodsignal. I wanted to make sure about the anastomosis, I did an operativearteriogram by putting a needle in the graft and doing sequential pictures,the anastomosis was good. The vessel runoff in the upper leg was good.There was nothing further could be done. The deeper layers were closedwith 2-0 Vicryl, skin with subcuticular suture. A VAC drain was placed inthe incision just at the knee. Blood loss was about 100 mL.MIGUEL SAHA/MONTANA Job #: [id number] DOC #: [id number] Name Value Range Interpretation Code Description Data Lavinia e(s) Supporting Document(s) ID Date Data Source [id number] 04/29/2020 07:22:55 AM EDT [facility] Name Value Range Interpretation Code Description Data Lavinia e(s) Supporting Document(s) SODIUM 144 mmol/L (136-145) [facility] POTASSIUM 3.6 mmol/L (3.6-5.2) [facility] CHLORIDE 109 mmol/L (100-108) H [facility] CO2 26 mmol/L (22-31) [facility] ANION GAP 9 mmol/L (7-16) [facility] UREA NITROGEN 9 mg/dL (7-24) [facility] CREATININE 0.89 mg/dL (0.60-1.00) [facility] BUN/CREAT RATIO 10.1 RATIO (10.0-20.0) [facility] GLUCOSE 129 mg/dL (70-99) H [facility] CALCIUM 8.0 mg/dL (8.4-10.2) L [facility] TOTAL PROTEIN 5.0 g/dL (6.4-8.2) L [facility] ALBUMIN 2.9 g/dL (3.2-4.5) L [facility] GLOBULIN 2.1 g/dL (2.7-4.3) L [facility] ALB/GLOB RATIO 1.4 RATIO [facility] ALKALINE PHOSPHATASE 47 U/L (45-117) [facility] BILIRUBIN,TOTAL 0.6 mg/dL (0.0-1.0) [facility] PLEASE NOTE:Total bilirubin results may be falselyelevated in patients taking Eltrombopag. AST (SGOT) 9 U/L (11-39) L [facility] ALT (SGPT) 9 U/L (12-78) L [facility] GFR >60 ml/min/1.73m2 (>59) [facility] GFR ( AMER) >60 ml/min/1.73m2 (>59) [facility] GFR INTERPRETATION [facility] --NORMAL KIDNEY FUNCTION OR MILD DISEASE - GFR >OR= 60CHRONIC KIDNEY DISEASE - GFR 15 - 59RENAL FAILURE - GFR <15 Est. GFR calculation based on the MDRDstudy equation, which assumes a steadystate for creatinine. Est. GFR should notbe used for medication dosing. ID Date Data Source [id number] 04/28/2020 11:43:31 AM EDT [facility] Name Value Range Interpretation Code Description Data Lavinia rce(s) Supporting Document(s) POC SOURCE [facility] CP BYPASS [facility] P[facility] PH 7.41 pH (7.35-7.45) [facility] POC PCO2 39.7 MMHG (32.0-48.0) [facility] POC PO2 111 MMHG (83-108) H [facility] POC SAT O2 98 % (95-99) [facility] POC BASE EXCESS 0 MMOL/L (0-3) [facility] POC HCO3 24.9 MMOL/L (21.0-29.0) [facility] P[facility] TOTAL CO2 26 MMOL/L (23.0-32.0) [facility] PERFORMED BY [facility] POC HCT 25 % (36.0-47.0) L [facility] POC SODIUM 141 MMOL/L (136-145) [facility] POC POTASSIUM 3.5 MMOL/L (3.6-5.2) L [facility] POC IONIZED CALCIUM 4.4 MG/DL (4.6-5.3) L [facility] POC GLU 202 MG/DL (70-99) H [facility] PER[facility] LAB [facility] ID Date Data Source [id number] 04/28/2020 10:41:14 AM EDT [facility] Name Value Range Interpretation Code Description Data Lavinia rce(s) Supporting Document(s) XR FLUORO UP TO 1 HR [facility] ID Date Data Source [id number] 04/28/2020 08:38:53 AM EDT [facility] INFORMATIONPatient MRN Name Date of Age Gend*PT [id number] Nguyen Ibarra 1935 84 years F SDAPT Location Admission Date/Time Visit ID Attending Provider --- --- --- --- EPI ID CSN Admitting Pro vider [id number] ---AirwayPatient location during procedure: ORUrgency: electiveDifficult airway: noAdvanced airway equipment used: noStaffingPerformed by: Saumya MejiaAnesthesiologist: Joey Moctezuma MDIndications and Patient ConditionIndications for airway management: anesthesia and airway protectionPreoxygenated: yesPatient position: supineIn-line stabilization: noMask ventilation: 0 - not attemptedFinal Airway/ApproachesFinal airway type: ETTNumber of attempts at final approach: 1Number of other approaches attempted: 0Final Airway DetailsFinal ETT airway: ETT - singleCuffed: yesTechnique used for successful ETT placement: direct laryngoscopyCricoid pressure: noRSI: noInsertion site: oralBlade type/size: MAC 3.5ETT size: 7.0 mmMeasured from: lipsETT to lips: 21 cmPlacement verified by: chest auscultation and + [id number]: CTA and equal breath sounds bilateralGrade view: grade I - full view of glottis Name Value Range Interpretation Code Description Data Lavinia rce(s) Supporting Document(s) ID Date Data Source [id number] 04/28/2020 08:37:25 AM EDT [facility] INFORMATIONPatient MRN Name Date of Age Gend*PT [id number] TonyNguyen [place] 1935 84 years F SDAPT Location Admission Date/Time Visit ID Attending Provider --- --- --- --- EPI ID CSN Admitting Pro vider [id number] ---Arterial Line PlacementPatient location during procedure: ORIndications for arterial line: hemodynamic monitoringStaffingPerformed by: Saumya MejiaApproved by: JACOBY Cooperompleted: patient identified, risks and benefits discussed, surgical consentobtained, anesthesia consent obtained, monitors and equipment checked, pre-opevaluation completed, timeout performed, patient was prepped and draped in usualsterile fashion,Arterial Line InsertionSite prep: chlorhexidineLaterality: rightLocation: brachial arteryNeedle gauge: MP 5 FTechnique: ultrasound guidedNumber of attempts: 2AssessmentSutured: noDressing: dressing appliedPatient tolerance: tolerated well Name Value Range Interpretation Code Description Data Lavniia rce(s) Supporting Document(s) ID Date Data Source [id number] 04/28/2020 07:50:39 AM EDT [facility] NT INFORMATIONPatient MRN Name Date of Age Gend*PT [id number] Nguyen Ibarra 1935 84 years F SDAPT Location Admission Date/Time Visit ID [facility]20 0538 --- Zuhair Levine MD([id number]) EPI ID CSN Admitting Provider [id number] Zuhair Levine MD([id number]) H&P reviewed. The patient was examined and there are no changes to the H&P.Risks and benefits of procedures explained and accepted.Zuhair Levine MD7:50 AM Name Value Range Interpretation Code Description Data Lavinia rce(s) Supporting Document(s) ID Date Data Source [id number] 04/28/2020 08:07:56 AM EDT [facility] Name Value Range Interpretation Code Description Data Lavinia rce(s) Supporting Document(s) POC NOVA GLU 150 mg/dL (70-99) H [facility] PERFORMED BY [facility] ID Date Data Source [id number] 04/30/2020 01:46:14 AM EDT [facility] SPEC EXP DATE 04/29/2020TEST ING SITE PERFORMED AT [address] [place] [id number] NUMBER [id number] COMPONENT TYPE LEUKOPOOR RED CELLSUNIT DIVISION 00STATUS OF UNIT TRANSFUSEDTRANSFUSION STATUS OK TO TRANSFUSECROSSMATCH RESULT COMPATIBLEUNIT NUMBER [id number] COMPONENT TYPE LEUKOPOOR RED CELLSUNIT DIVISION 00STATUS OF UNIT REL FROM ALLOCTRANSFUSION STATUS OK TO TRANSFUSECROSSMATCH RESULT COMPATIBLE Name Value Range Interpretation Code Description Data Lavinia rce(s) Supporting Document(s) TRANSFUSE RED CELLS [facility] TESTING SITE PERFORMED AT [address] [place] [id number] ID Date Data Source [id number] 04/23/2020 12:56:12 PM EDT [facility]PAT[facility] NT INFORMATIONPatient MRN Name Date of Age Gend*PT [id number] Nguyen Ibarra 1935 84 years F OPPT Location Admission Date/Time Visit ID Attending Provider --- --- --- Zuhair Levine MD([id number]) EPI ID CSN Admitting Provider [id number] ---HISTORY PHYSICALName: Nguyen Ibarra : 1935 Sex: female Care Provider: Hugh Arroyo Physician: Dr. LevineInformant: The patient who is a poor historian and accompanied by her daughter.Chief Complaint: "I will have femoral bypass surgery".HISTORY OF PRESENT ILLNESS: This is an 84 years old female with ahistory of CAD, HI with stenting, HTN, HLD, CHF, carotid artery disease,valvular heart disease, COPD uses 2L of oxygen at night, GERD, history of GIbleed, WAMPANOAG, macular degeneration, OA, stroke, TIA, and PVD with multiplerevascularizations in the past. Patient has been complaining of left lowerextremity pain for the past 2 years. The pain aggravates with walking orstanding and alleviates with rest and opioid medications. Patient denies anynumbness, tingling or change in temperature of bilateral lower extremities.Reports right calf edema and draining sore. The patient met with Dr. Levine,options were discussed and they have elected to under go CREATION, BYPASS, LEFTFEMORAL POPLITEAL on 04/28/2020.PAST MEDICAL HISTORY:Past Medical History:Diagnosis Date Acute on chronic diastolic congestive heart failure 11/03/2016 Anemia Carotid artery occlusion COPD (chronic obstructive pulmonary disease) 11/03/2016 uses 2L oxygen at night Coronary artery disease f/u by Dr. Yassine WILDER (gastroesophageal reflux disease) Heart valve disease Hiatal hernia History of GI bleed WAMPANOAG (hard of hearing) Hyperlipidemia Hypertension Macular degeneration NSTEMI (non-ST elevated myocardial infarction) 11/03/2016 Osteoarthritis Peripheral vascular disease Pneumonia due to influenza A virus 11/03/2016 Stroke TIA (transient ischemic attack)PAST SURGICAL HISTORY:Past Surgical History:Procedure Laterality Date Angioplasty and stenting Left external iliac artery stenting, left common femoral artery angioplasty COLONOSCOPY CORONARY STENT PLACEMENT 2013 x2 FEMORAL ENDARTERECTOMY Left Femoral endarterectomy with patch Left 2019 Iliac Endarterectomy Left 2019 Left profunda femoris artery endarterectomy UPPER GASTROINTESTINAL ENDOSCOPY VASCULAR SURGERY Left 12/26/2019 Procedure: RIGHT TO LEFT FEMORAL ARTERIAL BYPASS, , FEMORAL ENDARTERECTOMYLEFT, INTRAOPERATIVE ANGIOGRAM LEFT W/ SUPERFICAL ARTERIAL STENT; Surgeon: MD Vicky; Laterality: Left;ALLERGIES:AllergiesAllergen Reactions Ciprofloxacin Nausea And Vomiting Nausea/vomiting is a common adverse drug reaction associated withciprofloxacin; not an allergy. Salvador Mullins, PharmD Penicillins Facial Swelling Within 24 hours of dose at 13 years old Vancomycin Itching Received in 2017 at [facility] and 1 dose here -- no documentation ofrxn but patient appears to have been on IV steroids at the time as well. SASMEDICATIONS:Prior to Admission medicationsMedication Sig Start Date End Date Taking? Authorizing Provideracetaminophen (TYLENOL) 325 MG tablet Take 2 tablets (650 mg total) by mouthevery 6 (six) hours as needed for pain 12/28/19 Joseluis Marklbuterol (PROVENTIL HFA;VENTOLIN HFA) 108 (90 BASE) MCG/ACT inhaler Inhale 2puffs 4 (four) times a day as needed for wheezing Historical Provider, Rellspirin 81 MG chewable tablet Chew 81 mg daily Historical Provider, Relltorvastatin (LIPITOR) 40 MG tablet Take 40 mg by mouth daily HistoricalProvider, Jacobyarvedilol (COREG) 3.125 MG tablet Take 3.125 mg by mouth 2 (two) times a dayHistorical Provider, Jacobyholecalciferol (VITAMIN D3) 1000 UNITS capsule Take 1,000 Units by mouthnightly Historical Provider, Jacobylopidogrel (PLAVIX) 75 MG tablet Take 75 mg by mouth daily HistoricalProvider, Hangocusate sodium (COLACE) 100 MG capsule Take 100 mg by mouth 2 (two) times a dayHistorical Provider, ferrous sulfate 325 (65 FE) MG tablet Take 325 mg by mouth daily HistoricalProvider, fluticasone- salmeterol (ADVAIR) 250-50 MCG/DOSE DISKUS Inhale 1 puff 2 (two)times a day Historical Provider, furosemide (LASIX) 20 MG tablet Take 20 mg by mouth daily HistoricalProvider, HYDROcodone-acetaminophen (NORCO) 5-325 MG per tablet Take 1 tablet by mouthevery 8 (eight) hours as needed for pain Historical Provider, lisinopril (PRINIVIL,ZESTRIL) 2.5 MG tablet Take 2.5 mg by mouth nightlyHistorical Provider, DONTEultiple Vitamins-Minerals (PRESERVISION AREDS PO) Take 1 tablet by mouthnightly Historical Provider, nitroglycerin (NITR OSTAT) 0.[address] 0.4 mg under the tongue every 5(five) minutes as needed for chest pain Historical Provider, Farzanaantoprazole (PROTONIX) 40 MG tablet Take 40 mg by mouth daily HistoricalProvider, MDpotassium chloride SA (K-DUR,KLOR-CON) 10 MEQ tablet Take 10 mEq by mouth 2(two) times a day Historical Provider, MDrivaroxaban (XARELTO) 2.5 MG TABS Take 1 tablet (2.5 mg total) by mouth 2 (two)times a day 12/27/19 Larisa Llanes, PASocial HistoryTobacco Use Smoking status: Former Smoker Packs/day: 1.00 Years: 55.00 Pack years: 55.00 Types: Cigarettes Last attempt to quit: 07/26/2016 Years since quittin.7 Smokeless tobacco: Never UsedSubstance Use Topics Alcohol use: No Drug use: NeverFamily HistoryProblem Relation Age of Onset Diabetes Mother Heart disease Father Heart disease Brother Malig Hyperthermia Neg HxREVIEW OF SYSTEMS:Constitution: Weight stable, Denies fatigue, fever or chills. Caffeine intake: 1cup/day.HEENT: She wears glasses for reading.Denies any blurred vision, double vision, dizziness, tinnitus, dysphagia orheadaches.Respiratory: Reports shortness of breath secondary to COPD. Denies cough,yellow sputum production or wheezing.Cardiovascular: Denies any chest pain, pressure or tightness. Denies anyparoxysmal nocturnal dyspnea or orthopnea.Muscle/Skeletal System: Denies any muscle ache, joint ache or weakness.Neurologic: Denies any numbness, tingling, tremors or syncope.GI: Denies any nausea, vomiting, diarrhea, constipation or melena. Reportsbeing positive for occult blood.: Denies any dysuria, hematuria or nocturia.Endocrine: Denies polyuria, polydipsia or polyphagia. Denies any heat or coldintolerance, or night sweats.Hematology: Denies any bleeding or bruising tendencies.DNR Status: Patient states DNR but does not have paperwork with them today.HCP: Yes per patient.PHYSICAL EXAM:General: She is a 84 years old, pleasant white female, in no acute distress attime of examination. Vitals on arrival to the office are BP 139/56 (BP Location:Right upper arm) | Pulse 81 | Ht 1.626 m (5' 4") | Wt 54.4 kg (120 lb) |SpO2 96% | BMI 20.60 kg/m Body mass index is 20.6 kg/m ..Skin is pink warm and dry. Right posterior calf small abrasion with surroundingedema and scant clear drainage.HEENT: She is normocephalic, atraumatic. [place] conjunctivae. Anicteric sclerae.Pupils are equal, round, reactive to light and accommodation. Extraocularmovements are intact. Ears: Without drainage or lesion. Mouth: She has upper andlower dentures. She has a grade 4 airway. Neck is supple midline withoutcervical adenopathy. There is no tonsillo pharyngeal congestion. Mucousmembranes are moist. There are no oral lesions. No jugular distention. Nocarotid bruit.CHEST/BREAST: A/P less than owens sverse. Breast exam declined.LUNGS: Clear to auscultation. No wheezes, rhonchi or crackles.HEART: Rate rhythm regular. S1, S2. No murmur, rub or gallop.ABDOMEN: Bowel sounds positive times four. Soft, non tender. No reboundtenderness. No hepatosplenomegaly. Negative CVAT.GENITAL/RECTAL: Deferred.MUSCLE/SKELETAL: Strength is 5/5. Beveling Machine Operator are equal.NEUROLOGICALLY: Cranial nerves II through XII are grossly intact.VASCULAR: Pulses are symmetrical. Trace bilateral ankle edema. 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 Levine.Secondary Diagnosis and Plan:1. CAD EKG obtained in Pre-Admission testing or external EKG within 6 months,Continuation of cardiac medications post-operatively based on clinical status2. Hypertension Continuation of prior to admission anti-hypertensivemedications unless precluded by clinical status.3. Congestive heart failure diastolic heart failure Monitor daily fluidstatus (Input / Output totals) Adjust IV fluid rates based on fluid status PRNdiuretics to optimize fluid status Continuation of home oral diuretics whenclinically appropriate4. COPD Monitor oxygen saturation Albuterol nebulizer as needed Continue homemedications when clinically appropriate5. GI prophylaxis Per surgeon6. DVT prophylaxis Early ambulation. Pneumatic compression device.Subcutaneous Heparin or LMW Heparin if clinically indicated7. Cardiovascular preoperative optimization note dated 04/23/2020 in careeverywhere. Right posterior calf abrasion with surrounding edema and drainageneeds to be addressed by PCP. Aleisha at Dr. Levine's office made aware.Based on above medical co morbidities, length of stay may be prolonged greaterthan previously anticipated.ALLERGIES:Ciprofloxacin; Penicillins; and Vancomycin04/23/2020 12:52 PMLyudmila Kostiv, NPThis document or parts of this document, were dictated using LIQUITY speaking software. A reasonable attempt at proofreading has beenmade to minimize errors. Please call with any questions or corrections. Name Value Range Interpretation Code Description Data Lavinia rce(s) Supporting Document(s) ID Date Data Source [id number] 04/23/2020 11:50:09 AM EDT [facility] Name Value Range Interpretation Code Description Data [facility] rce(s) Supporting Document(s) EKG [facility] [id number] [file] +[id number]/KsovB8aCb/information systems consultant/[id number] [file] ID Date Data Source [id number] 04/23/2020 05:19:02 PM EDT [facility] [facility] SPEC EXP DATE 04/29/2020PATI ENT ABO/Rh O POSITIVEANTIBODY SCREEN NEGATIVETESTING SITE PERFORMED AT [address] [place], [place] [address]OOD BANK COMMENT BLOOD TYPE CONFIRMED. Name Value Range Interpretation Code Description Data Lavinia rce(s) Supporting Document(s) TYPE AND SCREEN [facility] [place] [facility] ID Date Data Source [id number] 04/23/2020 04:26:12 PM EDT [facility] [place] [facility] Name Value Range Interpretation Code Description Data Lavinia rce(s) Supporting Document(s) SODIUM 142 mmol/L (136-145) [facility] [place] [facility] POTASSIUM 4.2 mmol/L (3.6-5.2) [facility] CHLORIDE 104 mmol/L (100-108) [facility] CO2 31 mmol/L (22-31) [facility] ANION GAP 7 mmol/L (7-16) [facility] UREA NITROGEN 11 mg/dL (7-24) [facility] CREATININE 0.91 mg/dL (0.60-1.00) [facility] BUN/CREAT RATIO 12.1 RATIO (10.0-20.0) [facility] GLUCOSE 166 mg/dL (70-99) H [facility] CALCIUM 9.2 mg/dL (8.4-10.2) [facility] TOTAL PROTEIN 6.5 g/dL (6.4-8.2) [facility] ALBUMIN 3.6 g/dL (3.2-4.5) [facility] GLOBULIN 2.9 g/dL (2.7-4.3) [facility] ALB/GLOB RATIO 1.2 RATIO [facility] ALKALINE PHOSPHATASE 70 U/L (45-117) [facility] BILIRUBIN,TOTAL 0.4 mg/dL (0.0-1.0) [facility] PLEASE NOTE:Total bilirubin results may be falselyelevated in patients taking Eltrombopag. AST (SGOT) 14 U/L (11-39) [facility] [place] ALT (SGPT) 13 U/L (12-78) [facility] GFR 59 ml/min/1.73m2 (>59) L [facility] GFR ( AMER) >60 ml/min/1.73m2 (>59) [facility] GFR INTERPRETATION [facility] --NORMAL KIDNEY FUNCTION OR MILD DISEASE - GFR >OR= 60CHRONIC KIDNEY DISEASE - GFR 15 - 59RENAL FAILURE - GFR <15 Est. GFR calculation based on the MDRDstudy equation, which assumes a steadystate for creatinine. Est. GFR should notbe used for medication dosing. ID Date Data Source [id number] 04/23/2020 03:52:11 PM EDT [facility] [place] [facility] Name Value Range Interpretation Code Description Data Lavinia rce(s) Supporting Document(s) PT 13.0 s (9.2-11.9) H [facility] INR 1.27 [facility] [place] SUGGESTED THERAPEUTIC RANGES USING INR F ORSTABILIZED ANTICOAGULATED PATIENTS:STANDARD DOSE THERAPY INR 2.0-3.0 DVT, PE, PREVENT DVT OR EMBOLISMHIGH DOSE THERAPY INR 2.5-3.5 PREVENT EMBOLISM FROM MECHANICAL HEART VALVE ID Date Data Source [id number] 04/23/2020 03:40:52 PM EDT [facility] [place] Name Value Range Interpretation Code Description Data Lavinia rce(s) Supporting Document(s) WBC 7.5 10*3/uL (4.1-11.0) [facility] [place] [facility] [place] RBC 3.12 10*6/uL (4.00-5.40) L [facility] [place] [facility] HGB 9.5 g/dL (12.0-16.0) L [facility] HCT 30.0 % (36.0-47.0) L [facility] MCV 96.1 fL (80.0-95.0) H [facility] [place] MCH 30.3 pg (27.0-32.0) [facility] MCHC 31.5 g/dL (32.0-36.0) L [facility] [place] RDW 14.1 % (10.5-14.5) [facility] PLT 290 10*3/uL (150-450) [facility] [place] MPV 8.5 fL (7.1-10.7) [facility] ID Date Data Source [id number] 04/24/2020 09:42:32 AM EDT [facility] [place] [facility] Name Value Range Interpretation Code Description Data Lavinia rce(s) Supporting Document(s) SPECIMEN DESCRIPTION [facility]KYY STAPH SCREEN RESULTS (ONEGSA) [facility] COMMENT [facility] GENE TO DETECT STAPH AUREUS. (2) RT-P CR WAS PERFORMED FOR THE mecA AND [employer] GENES TO DETECT METHICILLIN RESISTANCE IN STAPH AUREUS. ID Date Data Source [id number] 04/23/2020 09:40:00 AM EDT [facility] Name Value Range Interpretation Code Description Data Lavinia rce(s) Supporting Document(s) SARS coronavirus 2 RNA [facility] This lab was ordered by [facility] and reported by [facility]. ID Date Data Source [id number] 04/24/2020 12:09:17 PM EDT [facility] Name Value Range Interpretation Code Description Data Lavinia rce(s) Supporting Document(s) SARS-COV-2 STEPH [facility] Not DetectedReference range: Not Detecte d This nucleic acid amplification test was developed and its performance characteristics determined by [facility]. Nucleic acid amplification tests include PCR and TMA. This test has not been FDA cleared or approved. This test has been authorized by FDA under an Emergency Use Authorization (EUA). This test is only authorized for the duration of time the declaration that circumstances exist justifying the authorization of the emergency use of in vitro diagnostic tests for detection of SARS-CoV-2 virus and/or diagnosis of COVID-19 infection under section 564(b)(1) of the Act, 21 U.S.C. 360bbb-3(b) (1), unless the authorization is terminated or revoked sooner. When diagnostic testing is negative, the possibility of a false negative result should be considered in the context of a patient's recent exposures and the presence of clinical signs and symptoms consistent with COVID- 19. An individual without symptoms of COVID- 19 and who is not shedding SARS -CoV-2 virus would expect to have a negative (not detected) result in this assay. Performed At: [facility] [id number] Perry Rios MD Ph:[phone] Procedure Social History Code Duration Value Status Description Data Source(s ) Smoking 06/03/2021 12:00:00 AM EDT - 08/07/2015 12:00:00 AM EST Patient is a former smoker completed Patient is a former smoker [facility] ([facility]) Smoking 05/20/2021 12:00:00 AM EDT Former Smoker completed Former Smoker eCW1 ([facility]) Smoking 05/20/2021 12:00:00 AM EDT Former Smoker completed Former Smoker eCW1 ([facility]) Alcohol intake 05/13/2021 12:00:00 AM EDT Current non-d jorge of alcohol (finding) completed Current non-drinker of alcohol (finding) [facility] Alcohol intake 04/14/2021 12:00:00 AM EDT Current non-d jorge of alcohol (finding) completed Current non-drinker of alcohol (finding) [facility] Alcohol intake 04/06/2021 12:00:00 AM EDT Current non-d ojrge of alcohol (finding) completed Current non-drinker of alcohol (finding) [facility] Smoking 03/31/2021 12:00:00 AM EDT Former Smoker completed Former Smoker eCW1 ([facility]) Alcohol intake 03/15/2021 12:00:00 AM EDT Current non-d jorge of alcohol (finding) completed Current non-drinker of alcohol (finding) [facility] Alcohol intake 12/24/2020 12:00:00 AM EDT Current non-d jorge of alcohol (finding) completed Current non-drinker of alcohol (finding) [facility] Smoking 12/21/2020 12:00:00 AM EDT Former Smoker completed Former Smoker eCW1 ([facility]) Smoking 12/21/2020 12:00:00 AM EDT Former Smoker completed Former Smoker eCW1 ([facility]) Alcohol intake 10/21/2020 12:00:00 AM EDT No completed [facility] Cigarette pack-years 10/21/2020 12:00:00 AM EDT UNK completed [facility] Cigarettes smoked current (pack per day) - Reported 10/22/19 12:00:00 AM EDT UNK completed [facility] Smoking 10/21/2020 12:00:00 AM EDT Former smoker completed Former smoker [facility] Smoking 08/11/2020 12:00:00 AM EST Patient is a former smoker completed Patient is a former smoker [facility] ([facility], ) Smoking 07/07/2020 12:00:00 AM EST Former Smoker completed Former Smoker eCW1 ([facility]) Smoking 07/07/2020 12:00:00 AM EST Former Smoker completed Former Smoker eCW1 ([facility]) Alcohol intake 04/29/2020 12:00:00 AM EDT No completed [facility] Cigarette pack-years 04/29/2020 12:00:00 AM EDT UNK completed [facility] Cigarettes smoked current (pack per day) - Reported 04/29/20 12:00:00 AM EDT UNK completed [facility] Smoking 04/29/2020 12:00:00 AM EDT Former smoker completed Former smoker [facility] Alcohol intake 04/23/2020 12:00:00 AM EDT No completed [facility] Cigarette pack-years 04/23/2020 12:00:00 AM EDT UNK completed [facility] Cigarettes smoked current (pack per day) - Reported 04/23/20 12:00:00 AM EDT UNK completed [facility] Smoking 04/23/2020 12:00:00 AM EDT Former smoker completed Former smoker [facility] Vital Signs ID Date Data Source UNK Name Value Range Interpretation Code Description Data Source(s) Systolic blood pressure 110 mm[Hg] 110 mm[Hg] M [facility]ENT ([facility]) Diastolic blood pressure 50 mm[Hg] 50 mm[Hg] [facility] ([facility]) Heart rate 68 /min 68 /min [facility] Body temperature 94.4 [degF] 94.4 [degF] [facility] ([facility]) Body height 64 [in_i] 64 [in_i] [facility] 5'4" Body weight 125.00 [lb_av] 125.00 [lb_av] MEDEN T ([facility]) Body weight 56.700 kg 56.700 kg [facility] ([facility] Body mass index (BMI) [Ratio] 21.5 kg/m2 21.5 k g/m2 [facility] ([facility]) Body weight [lb_av] eCW1 ([facility]) Body weight 56.7 kg 56.7 kg eCW1 ([facility]) Body height 64 [in_i] 64 [in_i] eCW1 ([facility]) Body mass index (BMI) [Ratio] 21.45 kg/m2 21.45 kg/m2 eCW1 ([facility]) Heart rate 94 /min 94 /min eCW[facility] Respiratory rate 18 /min 18 /min eCW1 ([facility]) Body temperature 98.4 [degF] 98.4 [degF] eCW1 ( [facility]) Systolic blood pressure 119 mm[Hg] 119 mm[Hg] e CW1 ([facility]) Diastolic blood pressure 67 mm[Hg] 67 mm[Hg] eCW1 ([facility]) Systolic blood pressure 110 mm[Hg] 110 mm[Hg] M EDENT ([facility]) Diastolic blood pressure 70 mm[Hg] 70 mm[Hg] [facility] ([facility]) Heart rate 68 /min 68 /min [facility] ([facility] Body temperature 96.3 [degF] 96.3 [degF] [facility] ([facility]) Body height 64 [in_i] 64 [in_i] [facility] 5'4" Systolic blood pressure 148 mm[Hg] 148 mm[Hg] M EDENT ([facility]) Diastolic blood pressure 54 mm[Hg] 54 mm[Hg] [facility] ([facility]) Body temperature 95.8 [degF] 95.8 [degF] [facility] ([facility]) Body height 64 [in_i] 64 [in_i] [facility] 5'4" Heart rate 76 /min 76 /min [facility] ([facility]) Systolic blood pressure 126 mm[Hg] 126 mm[Hg] [facility] Diastolic blood pressure 62 mm[Hg] 62 mm[Hg] [facility] Heart rate 84 /min 84 /min [facility] Body temperature 36.11 Neli 36.11 Neli [facility] Respiratory rate 18 /min 18 /min [facility] Body height 162.6 cm 162.6 cm [facility] Body weight 54.885 kg 54.885 kg [facility] Body mass index (BMI) [Ratio] 20.76 kg/m2 20.76 kg/m2 [facility] Systolic blood pressure 126 mm[Hg] 126 mm[Hg] [facility] Diastolic blood pressure 69 mm[Hg] 69 mm[Hg] [facility] Heart rate 89 /min 89 /min [facility] Body temperature 36.22 Neli 36.22 Neli [facility] Respiratory rate 18 /min 18 /min [facility] Body height 162.6 cm 162.6 cm [facility] Body weight 122.00 [lb_av] 122.00 [lb_av] MED[facility] T ([facility]) Body weight 55.339 kg 55.339 kg [facility] ([facility] Body height 64 [in_i] 64 [in_i] [facility] ([facility] 5'4" Body mass index (BMI) [Ratio] 20.9 kg/m2 20.9 k g/m2 [facility] ([facility]) Diastolic blood pressure 60 mm[Hg] 60 mm[Hg] [facility] ([facility]) Systolic blood pressure 140 mm[Hg] 140 mm[Hg] M EDENT ([facility]) Heart rate 88 /min 88 /min [facility] ([facility] Body temperature 96.2 [degF] 96.2 [degF] [facility] ([facility] Body weight [lb_av] eCW1 ([facility]) Body weight 53.98 kg 53.98 kg eCW1 ([facility]) Body height 64 [in_i] 64 [in_i] eCW1 ([facility]) Body mass index (BMI) [Ratio] 20.42 kg/m2 20.42 kg/m2 W1 ([facility]) Heart rate 82 /min 82 /min eCW1 ([facility]) Respiratory rate 18 /min 18 /min eCW1 ([facility]) Body temperature 98.7 [degF] 98.7 [degF] eCW1 ( [facility]) Systolic blood pressure 123 mm[Hg] 123 mm[Hg] e CW1 ([facility]) Diastolic blood pressure 68 mm[Hg] 68 mm[Hg] eCW1 ([facility]) Respiratory rate 16 /min 16 /min [facility] Oxygen saturation in Arterial blood by Pulse oximetry 95 % 95 % [facility] Body temperature 36.94 Neli 36.94 Neli [facility] Systolic blood pressure 110 mm[Hg] 110 mm[Hg] [facility] Diastolic blood pressure 52 mm[Hg] 52 mm[Hg] [facility] Heart rate 102 /min 102 /min [facility] Body weight 58.9 kg 58.9 kg [facility] Body mass index (BMI) [Ratio] 22.29 kg/m2 22.29 kg/m2 [facility] Diastolic blood pressure 70 mm[Hg] 70 mm[Hg] [facility] ([facility]) Heart rate 80 /min 80 /min [facility] ([facility] Body temperature 96.1 [degF] 96.1 [degF] [facility] ([facility]) Body height 64 [in_i] 64 [in_i] [facility] 5'4" Body weight 125.00 [lb_av] 125.00 [lb_av] MEDEN T ([facility]) Body weight 56.700 kg 56.700 kg [facility] ([facility] Body mass index (BMI) [Ratio] 21.5 kg/m2 21.5 k g/m2 [facility] ([facility]) Systolic blood pressure 126 mm[Hg] 126 mm[Hg] M EDENT ([facility]) Body weight 56.246 kg 56.246 kg [facility] ([facility] Body temperature 96.4 [degF] 96.4 [degF] [facility] ([facility]) Body height 64 [in_i] 64 [in_i] [facility] ([facility] 5'4" Body weight 124.00 [lb_av] 124.00 [lb_av] MED[facility] T ([facility]) Body mass index (BMI) [Ratio] 21.3 kg/m2 21.3 k g/m2 [facility] ([facility]) Systolic blood pressure 120 mm[Hg] 120 mm[Hg] M [facility]ENT ([facility]) Diastolic blood pressure 62 mm[Hg] 62 mm[Hg] [facility] ([facility]) Heart rate 68 /min 68 /min [facility] ([facility]) Systolic blood pressure 140 mm[Hg] 140 mm[Hg] M [facility]ENT ([facility]) Diastolic blood pressure 60 mm[Hg] 60 mm[Hg] [facility] ([facility]) Heart rate 88 /min 88 /min [facility] ([facility] Body temperature 96.3 [degF] 96.3 [degF] [facility] ([facility]) Body height 64 [in_i] 64 [in_i] [facility] ([facility] 5'4" Body weight 123.00 [lb_av] 123.00 [lb_av] MED[facility] T ([facility]) Body weight 55.793 kg 55.793 kg [facility] ([facility] Body mass index (BMI) [Ratio] 21.1 kg/m2 21.1 k g/m2 [facility] ([facility]) Heart rate 80 /min 80 /min [facility] ([facility]) Body temperature 97.6 [degF] 97.6 [degF] [facility] ([facility]) Respiratory rate 18 /min 18 /min [facility] ( [facility]) Oxygen saturation in Arterial blood by Pulse oximetry 95 % 95 % [facility] ([facility]) Body weight 123.50 [lb_av] 123.50 [lb_av] MED[facility] T ([facility]) Body weight 56.019 kg 56.019 kg [facility] ([facility] Body mass index (BMI) [Ratio] 21.20 kg/m2 21.20 kg/m2 [facility] ([facility]) Systolic blood pressure 140 mm[Hg] 140 mm[Hg] M EDENT ([facility]) Body weight 125.00 [lb_av] 125.00 [lb_av] MEDEN T ([facility]) Body weight 56.700 kg 56.700 kg [facility] ([facility] Body mass index (BMI) [Ratio] 21.5 kg/m2 21.5 k g/m2 [facility] ([facility]) Diastolic blood pressure 60 mm[Hg] 60 mm[Hg] [facility] ([facility]) Heart rate 88 /min 88 /min [facility] ([facility] Body temperature 96.1 [degF] 96.1 [degF] [facility] ([facility]) Body height 64 [in_i] 64 [in_i] [facility] ([facility] 5'4" Systolic blood pressure 104 mm[Hg] 104 mm[Hg] [facility] Diastolic blood pressure 49 mm[Hg] 49 mm[Hg] [facility] Heart rate 79 /min 79 /min [facility] Body temperature 36.78 Neli 36.78 Neli [facility] Oxygen saturation in Arterial blood by Pulse oximetry 92 % 92 % [facility] Respiratory rate 16 /min 16 /min [facility] Body height 162.6 cm 162.6 cm [facility] Body weight 56.7 kg 56.7 kg [facility] Body mass index (BMI) [Ratio] 21.46 kg/m2 21.46 kg/m2 [facility] Body weight [lb_av] eCW1 ([facility]) Systolic blood pressure 134 mm[Hg] 134 mm[Hg] e CW1 ([facility]) Diastolic blood pressure 73 mm[Hg] 73 mm[Hg] eCW1 ([facility]) Body height 64 [in_i] 64 [in_i] eCW1 ([facility]) Body mass index (BMI) [Ratio] 21.45 kg/m2 21.45 kg/m2 eCW1 ([facility]) Heart rate 73 /min 73 /min eCW1 ([facility] Respiratory rate 18 /min 18 /min eCW1 ([facility]) Body temperature 98.8 [degF] 98.8 [degF] eCW1 ( [facility]) Body height 64 [in_i] 64 [in_i] [facility] ([facility] 5'4" Body weight 122.00 [lb_av] 122.00 [lb_av] MED[facility] T ([facility]) Body weight 55.339 kg 55.339 kg [facility] ([facility] Body mass index (BMI) [Ratio] 20.9 kg/m2 20.9 k g/m2 [facility] ([facility]) Systolic blood pressure 130 mm[Hg] 130 mm[Hg] M EDENT ([facility]) Diastolic blood pressure 60 mm[Hg] 60 mm[Hg] [facility] ([facility]) Systolic blood pressure 130 mm[Hg] 130 mm[Hg] M [facility] ([facility]) Diastolic blood pressure 60 mm[Hg] 60 mm[Hg] [facility] ([facility]) Heart rate 64 /min 64 /min [facility] ([facility] Body temperature 96.2 [degF] 96.2 [degF] [facility] ([facility]) Systolic blood pressure 160 mm[Hg] 160 mm[Hg] M [facility] ([facility]) Diastolic blood pressure 60 mm[Hg] 60 mm[Hg] [facility] ([facility]) Heart rate 84 /min 84 /min [facility] ([facility] Body temperature 96.4 [degF] 96.4 [degF] [facility] ([facility]) Body height 64 [in_i] 64 [in_i] [facility] ([facility] 5'4" Body weight 55.793 kg 55.793 kg [facility] ([facility] Body mass index (BMI) [Ratio] 21.1 kg/m2 21.1 k g/m2 [facility] ([facility]) Body weight 123.00 [lb_av] 123.00 [lb_av] MEDEN T ([facility]) Systolic blood pressure 142 mm[Hg] 142 mm[Hg] M [facility]ENT ([facility]) Diastolic blood pressure 50 mm[Hg] 50 mm[Hg] [facility] ([facility]) Body temperature 94.1 [degF] 94.1 [degF] [facility] ([facility]) Systolic blood pressure 116 mm[Hg] 116 mm[Hg] [facility] Diastolic blood pressure 49 mm[Hg] 49 mm[Hg] [facility] Heart rate 101 /min 101 /min [facility] Body temperature 36.78 Neli 36.78 Neli [facility] Respiratory rate 18 /min 18 /min [facility] Oxygen saturation in Arterial blood by Pulse oximetry 94 % 94 % [facility] Body height 162.6 cm 162.6 cm [facility] Body weight 56.7 kg 56.7 kg [facility] Body mass index (BMI) [Ratio] 21.46 kg/m2 21.46 kg/m2 [facility] Systolic blood pressure 120 mm[Hg] 120 mm[Hg] M [facility]ENT ([facility]) Diastolic blood pressure 64 mm[Hg] 64 mm[Hg] [facility] ([facility]) Heart rate 72 /min 72 /min [facility] ([facility] Body height 64 [in_i] 64 [in_i] [facility] ([facility] 5'4" Body weight 121.00 [lb_av] 121.00 [lb_av] MEDEN T ([facility]) Body weight 54.886 kg 54.886 kg [facility] ([facility] Body mass index (BMI) [Ratio] 20.8 kg/m2 20.8 k g/m2 [facility] ([facility]) Body temperature 94.5 [degF] 94.5 [degF] [facility] ([facility]) Heart rate 72 /min 72 /min [facility] ([facility] Body weight 121.00 [lb_av] 121.00 [lb_av] MED[facility] T ([facility]) Body height 64 [in_i] 64 [in_i] [facility] ([facility] 5'4" Systolic blood pressure 140 mm[Hg] 140 mm[Hg] M EDENT ([facility]) Diastolic blood pressure 60 mm[Hg] 60 mm[Hg] [facility] ([facility]) Systolic blood pressure 140 mm[Hg] 140 mm[Hg] M EDENT ([facility]) Diastolic blood pressure 80 mm[Hg] 80 mm[Hg] [facility] ([facility]) Body weight 54.886 kg 54.886 kg [facility] ([facility]) Body mass index (BMI) [Ratio] 20.8 kg/m2 20.8 k g/m2 [facility] ([facility]) Systolic blood pressure 106 mm[Hg] 106 mm[Hg] M EDENT ([facility]) Diastolic blood pressure 64 mm[Hg] 64 mm[Hg] [facility] ([facility]) Heart rate 108 /min 108 /min [facility] ([facility], ) Oxygen saturation in Arterial blood by Pulse oximetry 95 % 95 % [facility] ([facility]) Body temperature 97.3 [degF] 97.3 [degF] [facility] ([facility], ) Body height 64 [in_i] 64 [in_i] MEDENT ([facility]) 5'4" Body weight 119.25 [lb_av] 119.25 [lb_av] MEDEN T ([facility]) Body mass index (BMI) [Ratio] 20.5 kg/m2 20.5 k g/m2 [facility] ([facility]) [place] body weight 120 [lb_av] 120 [lb_av] MEDEN T ([facility]) Body weight 54.092 kg 54.092 kg [facility] ([facility]) Body surface area Derived from formula 1.57 m2 1.57 m2 [facility] ([facility]) Body weight 53.071 kg 53.071 kg [facility] ([facility]) Body mass index (BMI) [Ratio] 20.1 kg/m2 20.1 k g/m2 [facility] ([facility]) Systolic blood pressure 120 mm[Hg] 120 mm[Hg] M EDENT ([facility]) Doppler Systolic blood pressure 140 mm[Hg] 140 mm[Hg] M EDENT ([facility]) Doppler Body height 64 [in_i] 64 [in_i] [facility] 5'4" Body weight 117.00 [lb_av] 117.00 [lb_av] MEDEN T ([facility]) Body mass index (BMI) [Ratio] 20.08 kg/m2 20.08 kg/m2 eCW1 ([facility]) Body weight [lb_av] eCW1 ([facility]) Heart rate 90 /min 90 /min eCW1 ([facility]) Respiratory rate 18 /min 18 /min eCW1 ([facility]) Systolic blood pressure 160 mm[Hg] 160 mm[Hg] e CW1 ([facility]) Diastolic blood pressure 81 mm[Hg] 81 mm[Hg] eCW1 ([facility]) Body height 64 [in_i] 64 [in_i] eCW1 ([facility]) Body temperature 98.7 [degF] 98.7 [degF] eCW1 ( [facility]) Body weight [lb_av] eCW1 ([facility]) Body height 64 [in_i] 64 [in_i] eCW1 ([facility]) Body mass index (BMI) [Ratio] 20.08 kg/m2 20.08 kg/m2 eCW1 ([facility]) Heart rate 79 /min 79 /min eCW1 ([facility]) Respiratory rate 18 /min 18 /min eCW1 ([facility]) Body temperature 97.8 [degF] 97.8 [degF] eCW1 ( [facility]) Systolic blood pressure 121 mm[Hg] 121 mm[Hg] e CW1 ([facility]) Diastolic blood pressure 70 mm[Hg] 70 mm[Hg] eCW1 ([facility]) Body height 64 [in_i] 64 [in_i] MED[facility] ([facility], ) 5'4" Body weight 117.50 [lb_av] 117.50 [lb_av] MEDEN T ([facility]) Systolic blood pressure 118 mm[Hg] 118 mm[Hg] M EDENT ([facility]) Diastolic blood pressure 56 mm[Hg] 56 mm[Hg] [facility] ([facility]) Body mass index (BMI) [Ratio] 20.2 kg/m2 20.2 k g/m2 [facility] ([facility]) [place] body weight 120 [lb_av] 120 [lb_av] MEDEN T ([facility]) Body weight 53.298 kg 53.298 kg [facility] ([facility]) Body surface area Derived from formula 1.56 m2 1.56 m2 [facility] ([facility]) Systolic blood pressure 150 mm[Hg] 150 mm[Hg] M EDENT ([facility]) Diastolic blood pressure 70 mm[Hg] 70 mm[Hg] [facility] ([facility]) Systolic blood pressure 140 mm[Hg] 140 mm[Hg] M EDENT ([facility]) Diastolic blood pressure 70 mm[Hg] 70 mm[Hg] MEDENT ([facility]) Body height 64 [in_i] 64 [in_i] MEDENT ([facility]) 5'4" Systolic blood pressure 112 mm[Hg] 112 mm[Hg] [facility] Diastolic blood pressure 53 mm[Hg] 53 mm[Hg] [facility] Heart rate 73 /min 73 /min [facility] Body temperature 36.78 Neli 36.78 Neli [facility] Respiratory rate 18 /min 18 /min [facility] Oxygen saturation in Arterial blood by Pulse oximetry 93 % 93 % [facility] Body height 162.6 cm 162.6 cm [facility] Body weight 54.432 kg 54.432 kg [facility] Body mass index (BMI) [Ratio] 20.60 kg/m2 20.60 kg/m2 [facility] Systolic blood pressure 139 mm[Hg] 139 mm[Hg] [facility] Diastolic blood pressure 56 mm[Hg] 56 mm[Hg] [facility] Heart rate 81 /min 81 /min [facility] Body height 162.6 cm 162.6 cm [facility] Body weight 54.432 kg 54.432 kg [facility] Body mass index (BMI) [Ratio] 20.60 kg/m2 20.60 kg/m2 [facility] Oxygen saturation in Arterial blood by Pulse oximetry 96 % 96 % [facility] Patient Treatment Plan of Care Planned Activity Planned Date Details Description Data Source (s) tramadol hydrochloride 50 MG Oral Tablet 05/12/2021 12:00:00 AM EDT [facility] gabapentin 300 MG Oral Capsule 04/28/2021 12:00:00 AM EDT [facility] Metronidazole 500 MG Oral Tablet 04/14/2021 12:00:00 AM EDT [facility] Nystatin 100 UNT/MG Topical Powder [Nystop] 04/05/2021 12:00:00 AM EDT [facility] Acetaminophen 325 MG / Oxycodone Hydrochloride 5 MG Or al Tablet 03/29/2021 12:00:00 AM EDT [facility] Potassium Chloride 10 MEQ Extended Release Oral Tablet 03/29/2021 12:00:00 AM EDT [facility] Chlorhexidine Gluconate (Biopatch) (Dressing) MISC 03/17/2021 12 :00:00 AM EDT [facility] Sodium Chloride Flush (Saline Flush) 0.9 % SOLN 03/17/2021 12:00:00 AM EDT [facility] 3 ML heparin sodium, porcine 100 UNT/ML Prefilled Syri nge 03/17/2021 12:00:00 AM EDT [facility] meropenem (MERREM) 1 g injection 03/17/2021 12:00:00 AM EDT [facility] Acetaminophen 325 MG / Oxycodone Hydrochloride 5 MG Or al Tablet 03/17/2021 12:00:00 AM EDT [facility] Albuterol 0.833 MG/ML / Ipratropium [place] 0.167 MG/M L Inhalant Solution 03/10/2021 03:27:14 PM EDT [facility] COLLAGENASE 0.25 UNT/MG Topical Ointment 01/30/2021 12:00:00 AM EDT [facility] Docusate Sodium 50 MG / sennosides, RETIREMENT 8.6 MG Oral Ta blet 01/29/2021 12:00:00 AM EDT [facility] Morphine Sulfate (PF) injection 2 mg 12/25/2020 06:52:16 AM EDT [facility] Albuterol 0.833 MG/ML / Ipratropium [place] 0.167 MG/M L Inhalant Solution 12/24/2020 03:01:12 PM EDT [facility] Nitroglycerin 0.4 MG Sublingual Tablet 12/24/2020 03:01:12 PM EDT [facility] ondansetron (ZOFRAN) injection 4 mg 12/24/2020 11:42:28 AM EDT [facility] Ondansetron 4 MG Oral Tablet [Zofran] 06/12/2020 12:00:00 AM [place] [id number] ([facility] Ondansetron 4 MG Oral Tablet [Zofran] 06/12/2020 12:00:00 AM EST [id number] ([facility]) Acetaminophen 325 MG / Hydrocodone Bitartrate 5 MG Ora l Tablet 05/01/2020 12:00:00 AM EDT [facility] Acetaminophen 325 MG Oral Tablet 12/28/2019 12:00:00 AM EDT [facility] rivaroxaban (XARELTO) 2.5 MG TABS 12/27/2019 12:00:00 AM EDT [facility] Ascorbic Acid 226 MG / Beta Carotene 143 20 UNT / cuprous oxide 0.8 MG / dl-alpha tocopheryl acetate 200 UNT / Zinc Oxide 34.8 MG Oral Capsule [PreserVision] 11/16/2016 12:00:00 AM EDT [facility] gabapentin 100 MG Oral Capsule [facility] Acetaminophen 325 MG / Hydrocodone Bitartrate 5 MG Oral Tablet [facility] Acetaminophen 325 MG / Oxycodone Hydrochloride 5 MG Oral Tablet [facility] doxycycline hyclate 100 MG Oral Tablet [facility] doxycycline anhydrous 40 MG Delayed Release Oral Capsule [facility] Acetaminophen 325 MG / Hydrocodone Bitartrate 5 MG Oral Tablet [facility] Acetaminophen 325 MG / Hydrocodone Bitartrate 5 MG Oral Tablet [facility] Aspirin 81 MG Chewable Tablet [facility] potassium chloride SA (K-DUR,KLOR-CON) 10 MEQ tablet [facility]
[2021-06-22 01:01] LABS: CK-MB VALUE MASS 1.1 NG/ML (<3.6); CPK CREATINE PHOSPHOKINASE 48 U/L (26-192); MB/CK RELATIVE INDEX 2.29 (< OR =4); TROPONIN I < 0.02 NG/ML (< 0.10)
[2021-06-22 01:08] LABS: BLOOD UREA NITROGEN 17 MG/DL (7-18); CARBON DIOXIDE LEVEL 31 MEQ/L (21-32); CHLORIDE LEVEL 106 MEQ/L (98-107); CREATININE FOR GFR 0.76 MG/DL (0.55-1.30); GLOMERULAR FILTRATION RATE > 60.0 (>32); GLUCOSE, FASTING 132 MG/DL (70-100); SODIUM LEVEL 143 MEQ/L (136-145)
[2021-06-22] MEDS ORDERED: ASPI81CH33 PO (01:13)
[2021-06-22 01:55] LABS: ETHYL ALCOHOL (ETHANOL) < 0.003 % (0.000-0.010)
[2021-06-22 02:16] LABS: RSV AMPLIFICATION NEGATIVE (NEGATIVE)
[2021-06-22 05:23] LABS: AMPHETAMINES LEVEL URINE NEGATIVE (NEGATIVE); BARBITURATES URINE NEGATIVE (NEGATIVE); BENZODIAZEPINES URINE NEGATIVE (NEGATIVE); CANNABINOIDS URINE NEGATIVE (NEGATIVE); COCAINE METABOLITE URINE NEGATIVE (NEGATIVE); METHADONE URINE NEGATIVE (NEGATIVE); OPIATES URINE NEGATIVE (NEGATIVE); PHENCYCLIDINE URINE NEGATIVE (NEGATIVE)
[2021-06-22] MEDS ORDERED: MOM 30ML SUSPENSION UDC PO PRN (06:05)
[2021-06-22] MEDS ORDERED: ACETAMINOPHEN TAB 650MG DOSE (2X325MG) PO PRN (06:05)
[2021-06-22] MEDS ORDERED: MAALOX 30 ML SUSP *UDC PO PRN (06:05)
--- OUTSIDE RECORDS SUMMARY | 2021-06-22 06:13 | CCD ---
Author Author [facility] Organization [facility] Address Unknown Phone Unavailable Care Team Providers Care Leather Scraper Name Role Phone Manjit Levine MD Unavailable [...] Unavailable Abner, N Zuhair MD Unavailable Unavailable Anber, N Zuhair MD Unavailable Unavailable Abner, N [...] Unavailable Abner, N Zuhair MD Unavailable Unavailable Anber, N Zuhair MD Unavailable Unavailable Abner, N [...] Unavailable LYDIA, O SHE ROONEY Unavailable Unavailable YLDIA, O SHE ROONEY Unavailable Unavailable LYDIA, O [...] Unavailable Adis Sparrow MD Unavailable Unavailable Adis Sparrwo MD Unavailable Unavailable Adis Sparrow MD Unavailable [...] Unavailable Unavailable Noah, Apryl PA Unavailable Unavailable Naoh, Apryl PA Unavailable Unavailable Noah, Apryl PA [...] Unavailable Unavailable Noah, Apryl PA Unavailable Unavailable Naoh, Apryl PA Unavailable Unavailable Noah, Apryl PA [...] is protected by Article 27-F of the [facility] Public Health law. If you continue you may have access to information: Regarding HIV / AIDS; Provided by facilities licensed or operated by the [facility] Office of Mental Health; or Provided by the [facility] Office for People With Developmental Disabilities. If such information is present, then the following [facility] mandated warning applies: This information [...] law may result in a fine or intermediate sentence or both. A general authorization for the release of medical or other information is NOT sufficient authorization for further disc losure. Allergies and Adverse Reactions Type Description Substance Reaction Status Data Source(s ) Propensity to adverse reactions BUPROPION Bupropion Acti ve [facility] Family History Family Member Name Family Member Gender Family Member Status Date o f Status Description Data Source(s) Unknown Female Problem MEDENT ([facility]) Unknown Unknown Problem MEDENT ([facility]) Unknown Male Problem MEDENT ([facility]) Encounters Encounter Providers Location Date Indications Data Source(s ) [place] [address] [facility] [address] 05/20/2021 12:00:00 AM EDT eCW1 ([facility]) Unknown [address] [facility] [address] 05/19/2021 12:00:00 AM EDT eCW1 ([facility]) Outpatient Attender: ARIS WINTERReferrer: Stewart Haines MD [address] 05/13/2021 08:47:55 AM EDT [facility] Office Visit Attender: Isabella Sparrow MD Main Office 05/12/2021 01: 45:00 PM EDT MEDENT ([facility]) Office Visit Attender: Isabella Sparrow MD Main Office 04/28/2021 01: 20:00 PM EDT MEDENT ([facility]) Outpatient Attender: Stewart Haines MD [address] 04/14/2021 02:07:17 PM EDT [facility] Outpatient Attender: ARIS Riojaser: Stewart Haines MD [address] 04/06/2021 10:05:55 AM EDT - 04/06/2021 01:58:21 PM EDT [facility] Office Visit Attender: Isabella Sparrow MD Main Office 04/05/2021 01: 00:00 PM EDT MEDENT ([facility]) [place] [address] [facility] [address] 03/31/2021 12:00:00 AM EDT eCW1 ([facility]) Unknown [address] [facility] [address] 03/24/2021 12:00:00 AM EDT eCW1 ([facility]) Inpatient Attender: Isabella Casas mitter: Isabella Sparrow MDConsultant: Stewart Haines MD [id number] 03/10/2021 02:00:00 PM EDT - 03/18/2021 11:49:00 AM EDT [facility] Patient discharged. Outpatient Attender: Isabella Sparrow MD Main Office 03/10/2021 01:00:00 PM EDT MEDENT ([facility]) Outpatient Referrer: Zuhair Levine MD 03/10/2021 10:54:03 AM EDT [facility] Office Visit Attender: Zuhair Levine MD Main Office 03/10/2021 10:15:00 AM EDT MEDENT ([facility]) Outpatient Attender: Zuhair Levine MD Main Office 03/01/2021 10:45:00 AM EDT [facility] Out[facility] Attender: Isabella Sparrow MD Main Office 02/19/2021 09:30:00 AM EDT MEDENT ([facility]) Inpatient Attender: Isabella Sparrow MDAdmitter: Isabella chilel MD [id number] 01/25/2021 01:40:00 PM EDT - 01/29/2021 05:47:00 PM EDT [facility] Patient discharged. Outpatient Referrer: Zuhair Levine MD 01/20/2021 11:46:00 AM EDT [facility] Office Visit Attender: Zuhair Levine MD Main Office 01/20/2021 11:30:00 AM EDT MEDENT ([facility]) Office Visit Attender: Isabella Sparrow MD Main Office 01/11/2021 02: 45:00 PM EDT MED[facility] ([facility]) Inpatient Attender: Isabella Casas mitter: Isabella Sparrow MDReferrer: DERIK COREAS MD [id number] 12/24/2020 10:37:00 AM EDT - 12/26/2020 03:16:00 PM EDT [facility] Patient discharged. [place] [address] [facility] [address] 12/21/2020 12:00:00 AM EDT eCW1 ([facility]) Office Visit Attender: Apryl URIBE Main Office 12/17/2020 01:00:00 PM EDT MEDENT ([facility]) Office Visit Attender: Zuhair Levine MD Main Office 11/16/2020 11:15:00 AM EDT MED[facility] ([facility]) Office Visit Attender: Apryl URIBE Main Office 11/02/2020 01:30:00 PM EDT MED[facility] ([facility]) Inpatient Attender: JOSE Mosquera nder: Zuhair Levine MDAdmitter: Zuhair Levine MD [id number] 10/19/2020 11:53:08 AM EDT - 10/22/2020 12:02:00 PM EDT [facility] Patient discharged. Outpatient Attender: Zuhair Levine MD Main Office 10/19/2020 10:15:00 AM EDT MEDENT ([facility]) Outpatient Attender: JOSE ARMANDO Cabrera/Romeo/Sven/Rein dl 08/11/2020 12:00:00 PM EST MED[facility] ([facility]) [place] [address] [facility] [address] 07/07/2020 12:00:00 AM EST eCW1 ([facility]) [place] [address] [facility] [address] 06/30/2020 12:00:00 AM EST eCW1 ([facility]) Outpatient Attender: SHE Cabrera/Romeo/Sven/Re indl 06/17/2020 07:45:00 AM EST [facility] ([facility]) Unknown [address] [facility] [address] 06/11/2020 12:00:00 AM EST eCW1 ([facility]) Office Visit Attender: Apryl URIBE Main Office 05/29/2020 08:30:00 AM EDT MED[facility] ([facility]) Unknown [address] [facility] [address] 05/20/2020 12:00:00 AM EDT eCW1 ([facility]) Unknown [address] [facility] [address] 05/18/2020 12:00:00 AM EDT eCW1 ([facility]) Unknown [address] [facility] [address] 05/14/2020 12:00:00 AM EDT eCW1 ([facility]) Office Visit Attender: Zuhair Levine MD Main Office 05/13/2020 09:45:00 AM EDT MED[facility] ([facility]) Unknown [address] [facility] [address] 05/08/2020 12:00:00 AM EDT eCW1 ([facility]) Unknown [address] [facility] [address] 05/07/2020 12:00:00 AM EDT eCW1 ([facility]) Outpatient Referrer: Zuhair Levine MD MOB-MOB.PAT 04/23/20 20 10:09:37 AM EDT - 04/23/2020 10:09:55 AM EDT [facility] Outpatient Attender: Zuhair Levine MDReferrer: Zuhair Philip OB-MOB.PAT 04/23/2020 10:08:35 AM EDT - 04/23/2020 11:29:36 AM EDT [facility] Inpatient Attender: Zuhair Paiz stefan: JOSE MOMINAdmitter: Zuhair Levine MD [id number] 04/20/2020 11:11:52 AM EDT - 05/01/2020 11:27:00 AM EDT [facility] Patient discharged. Outpatient MOB-MOB.PAT 04/06/2020 07:40 :50 AM EDT - 04/06/2020 07:41:34 AM EDT [facility] Inpatient Attender: Isabella Casas mitter: Isabella Sparrow MDReferrer: Isabella Sparrow MD [id number].CVAU 04/03/2020 01:09:47 PM EDT - 04/06/2020 06:04:00 PM EDT [facility] Patient discharged. Immunizations Vaccine Date Status Description Data Source(s) COVID-19 VACCINE Pfizer 06/10/2021 12:00:00 AM EDT completed [facility] Vaccine Series Complete: YESThis Data wa s Submitted to [facility] Via [employer]. influenza, recombinant, quadrIvalent,injectable, prese rvative free 05/20/2021 04:37:00 PM EDT completed eCW1 (Pending sale to [facility]) influenza, recombinant, quadrIvalent,injectable, prese rvative free 05/20/2021 04:37:00 PM EDT completed eCW1 (Pending sale to [facility]) Tdap 05/20/2021 04:36:00 PM EDT completed [facility] Tdap 05/20/2021 04:36:00 PM EDT completed e CW1 ([facility]) COVID-19 VACCINE Pfizer 09/27/2020 12:00:00 AM EST completed [facility] Vaccine Series Complete: YESThis Data wa s Submitted to [facility] Via [employer]. COVID-19 VACCINE, MRNA, [id number], LNP-S (PFIZER)/PF 09/27/19 12:00:00 AM EST completed [facility] COVID-19 VACCINE Pfizer 09/06/2020 12:00:00 AM EST completed [facility] Vaccine Series Complete: NOThis Data was Submitted to [facility] Via [employer]. COVID-19 VACCINE, MRNA, [id number], LNP-S (PFIZER)/PF 01/31/20 21 12:00:00 AM EST completed [facility] New in 2011. IIV4 04/30/2020 12:00:00 AM EDT completed MEDENT ([facility]) New in 2011. IIV4 04/30/2020 12:00:00 AM EDT completed <t d ID="[id number]">Influenza Quad 0.5mL Pres-Free</td><td>04/30/2020 (Deferred: - order d/c'd), 04/29/2020</td><td></td> [facility] Deferred: - order d/c'd New in 2011. IIV4 04/29/2020 12:00:00 PM EDT completed MED[facility] ([facility]) New in 2011. IIV4 04/29/2020 12:00:00 AM EDT completed <t d ID="[id number]">Influenza Quad 0.5mL Pres-Free</td><td>04/30/2020 (Deferred: - order d/c'd), 04/29/2020</td><td></td> [facility] Medications Medication Brand Name Start Date Product Form Dose Route Admi nistrative Instructions Pharmacy Instructions Status Indications Reaction Description [facility]03/2021 12:00:00 AM EDT active [...] tablet 05/12/2021 12:00:00 AM EDT a ctive [facility] gabapentin 300 MG Oral Capsule Gabapentin 04/28/2021 12:00:00 AM EDT ORAL completed [facility] ([facility]) gabapentin 300 MG Oral Capsule gabapentin (NEURONTIN) 300 MG capsule gabapentin (NEURONTIN) 300 MG capsule 04/28/2021 12:00:00 AM EDT 600 mg Oral active Take 600 mg by mouth 3 (three) times a d ay [facility] Metronidazole 500 MG Oral Tablet metroNIDAZOLE (FLAGYL ) 500 MG tablet metroNIDAZOLE (FLAGYL) 500 MG tablet 04/14/2021 12:00:00 AM EDT active 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 [facility] Infection Nystatin 04/05/2021 12:00:00 AM EDT active MEDENT ([facility]) Nystatin 100 UNT/MG Topical Powder [Nystop] nystatin powder nystatin powder 04/05/2021 12:00:00 AM EDT active [facility] Acetaminophen 325 MG / Oxycodone Hydroch loride 5 MG Oral Tablet oxyCODONE- acetaminophen (PERCOCET) 5-325 MG per tablet oxyCODONE-acetaminophen (PERCOCET) 5-325 MG per tablet 03/29/2021 12:00:00 AM EDT aborted TAKE 1 2 TO 1 (ONE HALF TO ONE) TABLET BY MOUTH EVERY 8 HOURS NEEDED FOR PAIN . DO NOT EXCEED 3 PER 24 HOURS [facility] Potassium Chloride 10 MEQ Extended Relea se Oral Tablet potassium chloride (K- DUR) 10 MEQ tablet potassium chloride (K-DUR) 10 MEQ tablet 03/29/2021 12 :00:00 AM EDT aborted [facility] Tamsulosin hydrochloride 0.4 MG Oral Cap yamila tamsulosin (FLOMAX) 24 hr capsule 0.8 mg tamsulosin (FLOMAX) 24 hr capsule 0.8 mg 03/17/2021 08:00:00 PM EDT 0.8 mg Oral completed 0.8 mg, Or al, Once, On Mon03/17/21 at 2000, For 1 dose [facility] Medication administered onsite meropenem (MERREM) 1 g injection [id number] 03/17/2021 12:00:00 AM E DT aborted Infuse 1g IV Q8h until [facility] 3 ML heparin sodium, porcine 100 UNT/ML Prefilled Syringe heparin 100 UNIT/ML SOLN heparin 100 UNIT/ML SOLN 03/17/2021 12:00:00 AM EDT 500 U Intravenous aborted Infuse 5 mL (500 Units total) into a venous catheter See Admin Instructions After dose and as needed [facility] Sodium Chloride Flush (Saline Flush) 0.9 % [facility] [id number] 03/17/2021 12:00:00 AM EDT aborted 10ml IV before and after dose and blood draws [facility] Chlorhexidine Gluconate (Biopatch) (Dressing) [employer] [facility] [employer] [phone] 03/17/2021 12:00:00 AM EDT aborted Apply to PICC insertion site weekly and PRN with dressing change, may dispense AMD [facility] Meropenem-Sodium Chloride Meropenem-Sodium Chloride 03/17/2021 1 2:00:00 [...] for pain Max Daily Amount: 3 tablets [facility] oxyCODONE-acetaminophen (PERCOCET) 5-325 MG 0.5 tablet 03/16/2021 [...] 1731, For 7 days [Order 2 End] [facility] Medication administered onsite meropenem (MERREM) injection 1 g [id number] 03/16/2021 09:00:00 AM EDT 1 g Intravenous [...] indicate approving infectious disease physician: Dr. Haines [facility] Skin and Soft Tissue Infection Medication administered onsite vancomycin (VANCOCIN) IVPB 1,000 mg [id number] 03/15/2021 05:00:0 0 AM EDT 1000 mg Intravenous aborted 1,000 mg , Intravenous, Administer over 1 Hours, Every 24 hours (relative), First dose (after last modification) on Mon03/15/21 at 0500 [facility] Medication administered onsite Acetaminophen 325 MG Oral Tablet acetaminophen (TYLENO L) 325 MG tablet 650 mg acetaminophen (TYLENOL) 325 MG tablet 650 mg 03/13/2021 12:00:00 PM EDT 650 mg Oral active 650 mg, Or al, Every 6 hours, First dose (after last modification) on 03/13/21 at 1200 [facility] Medication administered onsite Lactulose 667 MG/ML Oral Solution lactul ose (CHRONULAC) 10 GM/15ML solution 20 g lactulose (CHRONULAC) 10 GM/15ML solution 20 g 03/13/2021 09:00: 00 AM EDT 20 g Oral completed 20 g, Oral, Once, On S at 03/13/21 at 0900, For 1 dose [facility] Medication administered onsite gabapentin 100 MG Oral Capsule gabapentin (NEURONTIN) capsule 200 mg gabapentin (NEURONTIN) capsule 200 mg 03/13/2021 09:00:00 AM EDT 200 mg Oral active 200 mg, Oral, 3 times daily, First dose (after last modification) on 03/13/21 at 0900 [facility] Medication administered onsite Bisacodyl 10 MG Rectal Suppository bisacodyl (DULCOLAX ) suppository 10 mg bisacodyl (DULCOLAX) suppository 10 mg 03/13/2021 09:00:00 AM EDT 10 mg Rectal active 10 mg, Rectal, Daily, First dose on 03/13/21 at 0900
hold for loose stools
[facility] Medication administered onsite Oxycodone Hydrochloride 5 MG Oral Tablet oxyCODONE (ROXICODONE) immediate release tablet 2.5 mg oxyCODONE (ROXICODONE) immediate release tablet 2.5 mg 03/13/2021 08:19:25 AM EDT 2.5 mg Oral aborted 2.5 mg, Oral, Every 3 hours PRN, moderate pain (4-6), severe pain (7-10), Starting on 03/13/21 at 0819, For 7 days [facility] Medication administered onsite meropenem (MERREM) injection 1 g [id number] 03/12/2021 02:00:00 PM EDT 1 g Intravenous [...] indicate approving infectious disease physician: Dr. Haines [facility] Skin and Soft Tissue Infection Medication administered onsite 60 ACTUAT formoterol fumarate 0.005 MG/A CTUAT / mometasone furoate 0.2 MG/ACTUAT Metered Dose Inhaler mometasone-formoterol (DULERA) 200-5 MCG/ACT inhaler 2 puff mometasone-formoterol (DULERA) 200-5 MCG/ACT inhaler 2 puff 03/12/2021 01:00:00 PM EDT 2 {puff} Inhalation active 2 pu ff, Inhalation, 2 times daily, First dose (after last reorder) on Mon03/12/21 at 1300 [facility] Medication administered onsite vancomycin HCl (VANCOCIN) 750 mg in dextrose 5 % 250 mL IVPB 03/12/2021 05:00:00 AM EDT 750 mg Intravenous aborted 750 mg, Intravenous, Administer over 60 Minutes, Every 18 hours, First dose on Mon03/12/21 at 0500 [facility] Medication administered onsite normal saline flush 0.9 % injection 3 mL [id number] 03/11/2021 09:00:00 PM EDT 3 mL Intravenous aborted 3 mL , Intravenous, PROTOCOL, First dose on Cee 03/11/21 at 2100, PACU & Post-op
With good PO intake (600 ml X 1 shift)
[facility] Medication administered onsite Magnesium Chloride 0.70261 MEQ/ML / Pota ssium Chloride 0.0497 MEQ/ML / Sodium Acetate 0.0163 MEQ/ML / Sodium Chloride 0.0899 MEQ/ML / Sodium gluconate 5.02 MG/ML Injectable Solution [Normosol-R] electrolyte-R (NORMOSOL-R/PLASMALYTE-R) solution electrolyte-R (NORMOSOL-R/PLASMALYTE-R) solution 03/11 06:00:00 PM EDT Intravenous aborted at 7 5 mL/hr, Intravenous, Continuous, Starting on Cee 03/11/21 at 1800, PACU & Post-op
D/c with good po intake.
[facility] Medication administered onsite ondansetron (ZOFRAN) injection 4 mg [id number] 03/11/2021 04:48:5 5 PM EDT 4 mg Intravenous active 4 mg, In travenous, As needed, nausea, vomiting, Starting on Cee 03/11/21 at 1648, PACU & Post-op
Give for one dose if no response from metoclopramide
[facility] Medication administered onsite fentaNYL Citrate (PF) (SUBLIMAZE) injection 25 mcg [id number] 03/11/2021 03:42:14 PM EDT 25 ug Intravenous aborted 25 mcg, Intravenous, Every 5 min PRN, moderate pain (4 to 6), Starting on Cee 03/11/21 at 1542, For 10 doses, PACU (only) [facility] Medication administered onsite vancomycin (VANCOCIN) IVPB 1,000 mg [id number] 03/11/2021 11:00:0 0 AM EDT 1000 mg Intravenous completed 1,000 mg , Intravenous, Administer over 1 Hours, Once, On Cee 03/11/21 at 1100, For 1 dose [facility] Medication administered onsite Docusate Sodium 100 MG Oral Capsule docusate sodium (C OLACE) capsule 100 mg docusate sodium (COLACE) capsule 100 mg 03/11/2021 09:00:00 AM EDT 100 mg Oral active 100 mg, Oral, Daily, First dose on Cee 03/11/21 at 0900
hold for loose stools
[facility] Medication administered onsite pantoprazole 40 MG Delayed Release Oral Tablet pantoprazole (PROTONIX) EC tablet 40 mg pantoprazole (PROTONIX) EC tablet 40 mg 03/11/2021 09:00:00 AM E DT 40 mg Oral active Gastroesophageal Reflux Diseas e 40 mg, Oral, Daily, Indications: Gastroesophageal Reflux Disease, First dose on Cee 8/5/21 at 0900 [facility] Gastroesophageal Reflux Disease Medication administered onsite Aspirin 81 MG Delayed Release Oral Tablet aspirin EC t ablet 81 mg aspirin EC tablet 81 mg 03/11/2021 09:00:00 AM EDT 81 mg Oral activ e 81 mg, Oral, Daily, First dose on Mon03/11/21 at 0900 [facility] Medication administered onsite clopidogrel 75 MG Oral Tablet clopidogrel (PLAVIX) tab let 75 mg clopidogrel (PLAVIX) tablet 75 mg 03/11/2021 09:00:00 AM EDT 75 mg Oral active 75 mg, Oral, Daily, First dose on Mon03/11/21 at 0900 [facility] Medication administered onsite ferrous sulfate 325 MG Oral Tablet ferrous sulfate tab let 325 mg ferrous sulfate tablet 325 mg 03/11/2021 09:00:00 AM EDT 325 mg Oral acti ve 325 mg, Oral, Daily, First dose on Mon03/11/21 at 0900
Separate from antacids as far as possible. Take with food, do not crush
[facility] Medication administered onsite Magnesium Chloride 0.64978 MEQ/ML / Pota ssium Chloride 0.0497 MEQ/ML / Sodium Acetate 0.0163 MEQ/ML / Sodium Chloride 0.0899 MEQ/ML / Sodium gluconate 5.02 MG/ML Injectable Solution [Normosol-R] electrolyte-R (NORMOSOL-R/PLASMALYTE-R) solution electrolyte-R (NORMOSOL-R/PLASMALYTE-R) solution 03/11 12:00:00 AM EDT Intravenous aborted at 7 5 mL/hr, Intravenous, Continuous, Starting on Mon03/11/21 at 0000 [facility] Medication administered onsite Acetaminophen 325 MG Oral Tablet acetaminophen (TYLENO L) 325 MG tablet 650 mg acetaminophen (TYLENOL) 325 MG tablet 650 mg 03/10/2021 11:36:01 PM EDT 650 mg Oral aborted 650 mg, Or al, Every 4 hours PRN, mild pain (1-3), Starting on Mon03/10/21 at 2336 [facility] Medication administered onsite heparin (porcine) injection 5,000 Units [id number] 03/10/20 10:00:00 PM EDT 5000 U Subcutaneous active 5,000 Units , Subcutaneous, Every 8 hours (scheduled), First dose on Mon03/10/21 at 2200
If platelet count is less than 90,000 or hematocrit is less than 25, or if there is a 5 point decrease in hematocrit, do not give the dose and call physician/designee.
[facility] Medication administered onsite fentaNYL Citrate (PF) (SUBLIMAZE) injection 25 mcg [id number] 03/10/2021 09:56:11 PM EDT 25 ug Intravenous aborted 25 mcg, Intravenous, Every 2 hour PRN, severe pain (7-10), pain uncontrolled with PO analgesia, Starting on Mon03/10/21 at 2156, For 7 days [facility] Medication administered onsite normal saline flush 0.9 % injection 3 mL [id number] 03/10/2021 09:00:00 PM EDT 3 mL Intravenous aborted 3 mL , Intravenous, PROTOCOL, First dose on Mon03/10/21 at 2100
flush per protocol, D/C Main IV fluid if appropriate
[facility] Medication administered onsite potassium chloride SA (K-DUR,KLOR-CON) CR tablet 10 mEq [id number] 03/10/2021 09:00:00 PM EDT 10 meq Oral active 10 mEq, Oral, 2 times daily, First dose on Mon03/10/21 at 2100 [facility] Medication administered onsite Ascorbic Acid 200 MG [...] Nightly, First dose on Mon03/10/21 at 2100 [facility] Medication administered onsite Lisinopril 5 MG Oral Tablet lisinopril (PRINIVIL,ZESTR IL) tablet 2.5 mg lisinopril (PRINIVIL,ZESTRIL) tablet 2.5 mg 03/10/2021 09:00:00 PM EDT 2.5 mg Oral active 2.5 mg, Oral, Nightly, First dose on Mon03/10/21 at 2100
Hold for SBP less than 110
[facility] Medication administered onsite gabapentin 100 MG Oral Capsule gabapentin (NEURONTIN) capsule 200 mg gabapentin (NEURONTIN) capsule 200 mg 03/10/2021 09:00:00 PM EDT 200 mg Oral aborted 200 mg, Oral, 2 times daily, First dose on Mon03/10/21 at 2099 [facility] Medication administered onsite atorvastatin 40 MG Oral Tablet atorvastatin (LIPITOR) tablet 40 mg atorvastatin (LIPITOR) tablet 40 mg 03/10/2021 09:00:00 PM EDT 40 mg Oral active 40 mg, Oral, Nightly, First dose on Mon03/10/21 at 2100 [facility] Medication administered onsite carvedilol 3.125 MG Oral Tablet carvedilol (COREG) tab let 3.125 mg carvedilol (COREG) tablet 3.125 mg 03/10/2021 09:00:00 PM EDT 3.125 mg Oral active 3.125 mg, Oral, 2 times daily, First dos e on Mon03/10/21 at 2100
Hold for sbp <100, HR <50
[facility] Medication administered onsite Cholecalciferol 1000 UNT Oral Tablet Vit scott D (CHOLECALCIFEROL) tablet 1,000 Units Vitamin D (CHOLECALCIFEROL) tablet 1,000 Units 03/10/2021 09 :00:00 PM EDT 1000 U Oral active 1,000 Units, Ora l, Nightly, First dose on Mon03/10/21 at 2099 [facility] Medication administered onsite 60 ACTUAT formoterol fumarate 0.005 MG/A CTUAT / mometasone furoate 0.2 MG/ACTUAT Metered Dose Inhaler mometasone-formoterol (DULERA) 200-5 MCG/ACT inhaler 2 puff mometasone-formoterol (DULERA) 200-5 MCG/ACT inhaler 2 puff 03/10/2021 08:00:00 PM EDT 2 {puff} Inhalation aborted 2 puff, Inhalation, 2 times daily, First dose on Mon03/10/21 at 2000 [facility] Medication administered onsite doxycycline (VIBRAMYCIN) 100 mg in sodiu m chloride (NS) 0.9 % 100 mL IVPB pigtail 03/10/2021 05:00:00 PM EDT 100 mg Intravenous aborted Skin and Soft Tissue Infection 100 mg, Intravenous, Adminis ter over 60 Minutes, Every 12 hours (relative), First dose on Mon03/10/21 at 1700
send unused med back to rx for disposal
[facility] Skin and Soft Tissue Infection Medication administered onsite COLLAGENASE 0.25 UNT/MG Topical Ointment collagenase o intment collagenase ointment 03/10/2021 04:00:00 PM EDT Topical active Topical, Daily, First dose on Mon03/10/21 at 1600, Until Discontinued [facility] Medication administered onsite normal saline flush 0.9 % injection 3 mL [id number] 03/10/2021 04:00:00 PM EDT 3 mL Intravenous active 3 mL , Intravenous, Every 8 hours (scheduled), First dose on Mon03/10/21 at 1600
flush per protocol, D/C Main IV fluid if appropriate
[facility] Medication administered onsite Furosemide 20 MG Oral Tablet furosemide (LASIX) tablet 20 mg furosemide (LASIX) tablet 20 mg 03/10/2021 04:00:00 PM EDT 20 mg Oral activ e 20 mg, Oral, Daily, First dose on Mon03/10/21 at 1600 [facility] Medication administered onsite Ipratropium [place] 0.2 MG/ML Inhalant S olution ipratropium (ATROVENT) 0.02 % nebulizer solution 0.5 mg ipratropium (ATROVENT) 0.02 % nebulizer solution 0.5 mg 03/10/2021 04:00:00 PM EDT 0.5 mg active 0.5 mg, Nebulization, 4 times daily, First dose on Mon03/10/21 at 1600 [facility] Medication administered onsite Albuterol 0.833 MG/ML / Ipratropium Brom janelle 0.167 MG/ML Inhalant Solution ipratropium-albuterol (DUO-NEB) 0.5-2.5 mg/mL nebulizer solution 3 mL ipratropium-albuterol (DUO-NEB) 0.5-2.5 mg/mL nebulizer solution 3 mL 03/10/2021 03:27:14 PM EDT 3 mL Inhalation active 3 mL, Inhalation, Every 6 hours PRN, for shortness of breath, Starting on Mon03/10/21 at 1527 [facility] Medication administered onsite Acetaminophen 325 MG / Hydrocodone Emilia trate 5 MG Oral Tablet HYDROcodone- acetaminophen (NORCO) 5-325 MG per tablet 0.5 tablet HYDROcodone-acetaminophen (NORCO) 5-325 MG per tablet 0.5 tablet 03/10/2021 03:27:06 PM EDT 0.5 {tbl} Oral aborted 0.5 tablet, Or al, Every 4 hours PRN, moderate pain (4-6), severe pain (7-10), Starting on Mon03/10/21 at 1527, For 7 days [facility] Medication administered onsite Azithromycin 250 MG Oral Tablet Azithromycin 02/19/2021 12:00:00 AM EDT completed [facility] ([facility] COLLAGENASE 0.25 UNT/MG Topical Ointment collagenase o intment collagenase ointment 01/30/2021 12:00:00 AM EDT Topical active Apply topically daily [facility] COLLAGENASE 0.25 UNT/MG Topical Ointment [Santyl] Santyl 01/30/2021 12:00:00 AM EDT active [facility] ([facility]) Docusate Sodium 50 MG / sennosides, JAIL 8.6 MG Oral Tablet senna-docusate (PERICOLACE) 8.6-50 MG senna-docusate (PERICOLACE) 8.6-50 MG 01/29/2021 12:00 :00 AM EDT 2 {tbl} Oral active Take 2 t ablets by mouth nightly as needed for constipation [facility] doxycycline hyclate 100 MG Oral Tablet Doxycycline Hyclate 0 01/29/2021 12:00:00 AM EDT ORAL completed [facility] ([facility]) Docusate Sodium 50 MG / sennosides, JAIL 8.6 MG Oral Ta blet Senna-Docusate Sodium [...] Mon12/26/20 at 0900
hold for loose stools
[facility] Medication administered onsite Cholecalciferol 1000 UNT Oral Tablet Vit scott D (CHOLECALCIFEROL) tablet 1,000 Units Vitamin D (CHOLECALCIFEROL) tablet 1,000 Units 12/25/2020 09 :00:00 PM EDT 1000 U Oral active 1,000 Units, Ora l, Nightly, First dose on Mon12/25/20 at 2100 [facility] Medication administered onsite sodium chloride 0.9% (NS) infusion [id number] 12/25/2020 02:00:00 P M EDT Intravenous active at 50 mL/hr, Intravenous, Continuous, Starting on Mon12/25/20 at 1400 [facility] Medication administered onsite iodixanol (VISIPAQUE) 320 MG/ML injection 150 mL [id number] 12/25/2020 12:37:37 PM EDT 150 mL Intra-arterial completed 150 mL, Intra-arterial, Once in imaging, contrast, Starting on Mon12/25/20 at 1237, For 1 dose [facility] Medication administered onsite 2 ML Midazolam 1 MG/ML Injection midazolam (VERSED) in jection midazolam (VERSED) injection 12/25/2020 11:59:29 AM EDT Intravenous co mpleted Intravenous, Code/trauma/sedation medication, Starting on Mon12/25/20 at 1159 [facility] Medication administered onsite fentaNYL Citrate (PF) (SUBLIMAZE) injection [id number] 12/25/2020 11:59:25 AM EDT Intravenous completed In travenous, Code/trauma/sedation medication, Starting on Mon12/25/20 at 1159 [facility] Medication administered onsite clopidogrel 75 MG Oral Tablet clopidogrel (PLAVIX) tab let 75 mg clopidogrel (PLAVIX) tablet 75 mg 12/25/2020 09:00:00 AM EDT 75 mg Oral active 75 mg, Oral, Daily, First dose on Mon12/25/20 at 0900 [facility] Medication administered onsite Aspirin 81 MG Delayed Release Oral Tablet aspirin EC t ablet 81 mg aspirin EC tablet 81 mg 12/25/2020 09:00:00 AM EDT 81 mg Oral activ e 81 mg, Oral, Daily, First dose on Mon12/25/20 at 0900 [facility] Medication administered onsite Morphine Sulfate (PF) injection 2 mg [id number] 12/25/2020 06:52: 16 AM EDT 2 mg Intravenous active 2 mg, In travenous, Every 3 hours PRN, severe pain if oral ineffective after 1 hour, Starting on Mon12/25/20 at 0652, For 7 days [facility] Medication administered onsite fentaNYL Citrate (PF) (SUBLIMAZE) injection 25 mcg [id number] 12/25/2020 05:00:00 AM EDT 25 ug Intravenous completed 25 mcg, Intravenous, Once, On Mon12/25/20 at 0600, For 1 dose [facility] Medication administered onsite Magnesium Chloride 0.15970 MEQ/ML / Pota ssium Chloride 0.0497 MEQ/ML / Sodium Acetate 0.0163 MEQ/ML / Sodium Chloride 0.0899 MEQ/ML / Sodium gluconate 5.02 MG/ML Injectable Solution [Normosol-R] electrolyte-R (NORMOSOL-R/PLASMALYTE-R) solution electrolyte-R (NORMOSOL-R/PLASMALYTE-R) solution 12/25 12:00:00 AM EDT Intravenous aborted at 6 0 mL/hr, Intravenous, Continuous, Starting on Mon12/25/20 at 0000 [facility] Medication administered onsite Lisinopril 5 MG Oral Tablet lisinopril (PRINIVIL,ZESTR IL) tablet 2.5 mg lisinopril (PRINIVIL,ZESTRIL) tablet 2.5 mg 12/24/2020 09:00:00 PM EDT 2.5 mg Oral active 2.5 mg, Oral, Nightl y, First dose on Cee 12/24/20 at 2100 [facility] Medication administered onsite carvedilol 3.125 MG Oral Tablet carvedilol (COREG) tab let 3.125 mg carvedilol (COREG) tablet 3.125 mg 12/24/2020 09:00:00 PM EDT 3.125 mg Oral active 3.125 mg, Oral, 2 times daily, First dos e on Mon12/24/20 at 2100
Hold for HR <50, SBP <110
[facility] Medication administered onsite atorvastatin 40 MG Oral Tablet atorvastatin (LIPITOR) tablet 40 mg atorvastatin (LIPITOR) tablet 40 mg 12/24/2020 09:00:00 PM EDT 40 mg Oral active 40 mg, Oral, Nightly, First dose on Cee 12/24/20 at 2100 [facility] Medication administered onsite 60 ACTUAT formoterol fumarate 0.005 MG/A CTUAT / mometasone furoate 0.2 MG/ACTUAT Metered Dose Inhaler mometasone-formoterol (DULERA) 200-5 MCG/ACT inhaler 2 puff mometasone-formoterol (DULERA) 200-5 MCG/ACT inhaler 2 puff 12/24/2020 08:00:00 PM EDT 2 {puff} Inhalation active 2 pu ff, Inhalation, 2 times daily, First dose on Cee 12/24/20 at 2000 [facility] Medication administered onsite normal saline flush 0.9 % injection 3 mL [id number] 12/24/2020 04:00:00 PM EDT 3 mL Intravenous active 3 mL , Intravenous, Every 8 hours (scheduled), First dose on Cee 12/24/20 at 1600
flush per protocol, D/C Main IV fluid if appropriate
[facility] Medication administered onsite pantoprazole 40 MG Delayed Release Oral Tablet pantoprazole (PROTONIX) EC tablet 40 mg pantoprazole (PROTONIX) EC tablet 40 mg 12/24/2020 04:00:00 PM E DT 40 mg Oral active Gastroesophageal Reflux Diseas e 40 mg, Oral, Daily, Indications: Gastroesophageal Reflux Disease, First dose on Cee 12/24/20 at 1600 [facility] Gastroesophageal Reflux Disease Medication administered onsite ferrous sulfate 325 MG Oral Tablet ferrous sulfate tab let 325 mg ferrous sulfate tablet 325 mg 12/24/2020 04:00:00 PM EDT 325 mg Oral acti ve 325 mg, Oral, Daily, First dose on Cee 12/24/20 at 1600
Separate from antacids as far as possible. Take with food, do not crush
[facility] Medication administered onsite Furosemide 20 MG Oral Tablet furosemide (LASIX) tablet 20 mg furosemide (LASIX) tablet 20 mg 12/24/2020 04:00:00 PM EDT 20 mg Oral activ e 20 mg, Oral, Daily, First dose on Cee 12/24/20 at 1600 [facility] Medication administered onsite gabapentin 100 MG Oral Capsule gabapentin (NEURONTIN) capsule 200 mg gabapentin (NEURONTIN) capsule 200 mg 12/24/2020 04:00:00 PM EDT 200 mg Oral active 200 mg, Oral, 2 times daily, First dose on Cee 12/24/20 at 1600 [facility] Medication administered onsite potassium chloride SA (K-DUR,KLOR-CON) CR tablet 10 mEq [id number] 12/24/2020 04:00:00 PM EDT 10 meq Oral active 10 mEq, Oral, 2 times daily, First dose on Cee 12/24/20 at 1600 [facility] Medication administered onsite Albuterol 0.83 MG/ML Inhalant Solution a lbuterol (PROVENTIL) nebulizer solution 2.5 mg albuterol (PROVENTIL) nebulizer solution 2.5 mg 2020 04:00:00 PM EDT 2.5 mg active 2.5 mg, Nebulization, Every 6 hours while awake, First dose on Cee 12/24/20 at 1600 [facility] Medication administered onsite Nitroglycerin 0.4 MG Sublingual Tablet n itroglycerin (NITROSTAT) SL tablet 0.4 mg nitroglycerin (NITROSTAT) SL tablet 0.4 mg 12/24/2020 03:01:12 P M EDT 0.4 mg Sublingual active 0.4 mg, S ublingual, Every 5 min PRN, chest pain, Starting on Cee 12/24/20 at 1501
May administer up to 3 doses per episode.
[facility] Medication administered onsite Albuterol 0.833 MG/ML / Ipratropium Brom janelle 0.167 MG/ML Inhalant Solution ipratropium-albuterol (DUO-NEB) 0.5-2.5 mg/mL nebulizer solution 3 mL ipratropium-albuterol (DUO-NEB) 0.5-2.5 mg/mL nebulizer solution 3 mL 12/24/2020 03:01:12 PM EDT 3 mL Inhalation active 3 mL, Inhalation, Every 6 hours PRN, for shortness of breath, Starting on Cee 12/24/20 at 1501 [facility] Medication administered onsite 1 ML heparin sodium, porcine 1000 UNT/ML Injection heparin (porcine) injection 4,300 Units heparin (porcine) injection 4,300 Units 12/24/2020 12:10:00 PM EDT 75 U/kg Intravenous completed 4,300 Unit s (rounded from 4,252.5 Units = 75 Units/kg 56.7 kg), Intravenous, Once, On Cee 12/24/20 at 1210, For 1 dose
Do not exceed 10,000 units or 75 units/kg (whichever is less)
[facility] Medication administered onsite 500 ML heparin sodium, [...] 1 unit/kg/hr IV58.1 - 87 Therapeutic, No Ilfsfm31.1 - 97 Decrease infusion 1 unit/kg/hr IV 97.1 - 110Hold infusion for 30 minutes & decrease infusion 2 units/kg/hr IV> 110 Call MD if patient is bleeding. Hold infusion for 60 minutes & decrease infusion 3 units/kg/hr IVInitial heparin IV infusion rate:Do not exceed 1500 units/hour or 15 units/kg/hr (whichever is less)Infuse this medication only through single port tubing ([employer] Infusion Set ref [id number]). Medication and tubing is to be discarded if infusion off for 4 hours.
[facility] Medication administered onsite Acetaminophen 325 MG Oral Tablet acetaminophen (TYLENO L) 325 MG tablet 650 mg acetaminophen (TYLENOL) 325 MG tablet 650 mg 12/24/2020 11:42:43 AM EDT 650 mg Oral active 650 mg, Or al, Every 4 hours PRN, mild pain (1-3), Starting on Cee 12/24/20 at 1142
"Maximum dose of acetaminophen is 4,000 mg from all sources in 24 hours."
[facility] Medication administered onsite ondansetron (ZOFRAN) injection 4 mg [id number] 12/24/2020 11:42:2 8 AM EDT 4 mg Intravenous active 4 mg, In travenous, Every 6 hours PRN, nausea, vomiting, Starting on Cee 12/24/20 at 1142 [facility] Medication administered onsite Acetaminophen 325 MG / Hydrocodone Emilia trate 5 MG Oral Tablet HYDROcodone- acetaminophen (NORCO) 5-325 MG per tablet 1-2 tablet HYDROcodone-acetaminophen (NORCO) 5-325 MG per tablet 1-2 tablet 12/24/2020 11:36:34 AM EDT {tbl} Oral active 1-2 tablet, Ora l, Every 4 hours PRN, moderate pain (4-6), severe pain (7-10), Starting on Cee 12/24/20 at 1136, For 7 days [facility] Medication administered onsite Acetaminophen 325 MG / [...] on Mon10/20/20 at 1700, For 2 doses [facility] Perioperative Pharmacoprophylaxis Medication administered onsite HYDROmorphone (DILAUDID) injection 0.2 mg [id number] 10/20/2020 02:49:41 PM EDT 0.2 mg Intravenous active 0.2 mg, Intravenous, Every 2 hour PRN, severe pain (7-10), Starting [facility] 10/20/20 at 1449, For 7 days [facility] Medication administered onsite Acetaminophen 325 MG / Hydrocodone Emilia trate 5 MG Oral Tablet HYDROcodone- acetaminophen (NORCO) 5-325 MG per tablet 1 tablet HYDROcodone-acetaminophen (NORCO) 5-325 MG per tablet 1 tablet 10/20/2020 01:53:06 PM EDT 1 { tbl} Oral active 1 tablet, Oral, Every 6 hours PRN, severe pain (7-10), Starting [facility] 10/20/20 at 1353, For 7 days [facility] Medication administered onsite POLYETHYLENE GLYCOL 3350 142 MG/ML Oral Solution polyethylene glycol (GLYCOLAX) packet 17 g polyethylene glycol (GLYCOLAX) packet 17 g 10/20/2020 01:42:38 PM EDT 17 g Oral active 17 g, Or al, Daily PRN, if no result from milk of magnesia (MOM), Starting [facility] 10/20/20 at 1342, PACU & Post-op [facility] Medication administered onsite Magnesium Hydroxide 80 MG/ML Oral Suspen alex magnesium hydroxide (MILK OF MAGNESIA) 400 MG/5ML suspension 30 mL magnesium hydroxide (MILK OF MAGNESIA) 4 00 MG/5ML suspension 30 mL 10/20/2020 01:42:38 PM EDT 30 mL Oral active 30 mL, Oral, Daily PRN, constipation, Starting [facility] 10/20/20 at 1342, PACU & Post-op [facility] Medication administered onsite fentaNYL Citrate (PF) (SUBLIMAZE) injection 25 mcg [id number] 10/20/2020 11:49:23 AM EDT 25 ug Intravenous aborted 25 mcg, Intravenous, Every 5 min PRN, moderate pain (4 to 6), max 8 doses, Starting [facility] 10/20/20 at 1149, For 2 hours, PACU (only) [facility] Medication administered onsite pantoprazole 40 MG Delayed Release Oral Tablet pantoprazole (PROTONIX) EC tablet 40 mg pantoprazole (PROTONIX) EC tablet 40 mg 10/20/2020 09:00:00 AM E DT 40 mg Oral active Stress Ulcer ProphylaxisGastro esophageal Reflux Disease 40 mg, Oral, Daily, Indications: Gastroesophageal Reflux Disease, Stress Ulcer Prophylaxis, First dose on Mon10/20/20 at 0900 [facility] Stress Ulcer Prophylaxis Gastroesophageal Reflux Disease Medication administered onsite ferrous sulfate 325 MG Oral Tablet ferrous sulfate tab let 325 mg ferrous sulfate tablet 325 mg 10/20/2020 09:00:00 AM EDT 325 mg Oral acti ve 325 mg, Oral, Daily, First dose on Mon10/20/20 at 09
Separate from antacids as far as possible. Take with food, do not crush
[facility] Medication administered onsite Aspirin 81 MG Delayed Release Oral Tablet aspirin EC t ablet 81 mg aspirin EC tablet 81 mg 10/20/2020 09:00:00 AM EDT 81 mg Oral activ e 81 mg, Oral, Daily, First dose on Mon10/20/20 at 09 [facility] Medication administered onsite clopidogrel 75 MG Oral Tablet clopidogrel (PLAVIX) tab let 75 mg clopidogrel (PLAVIX) tablet 75 mg 10/20/2020 09:00:00 AM EDT 75 mg Oral active 75 mg, Oral, Daily, First dose on Mon10/20/20 at 0900 [facility] Medication administered onsite sodium chloride 0.9% (NS) infusion [id number] 10/20/2020 12:00:00 A M EDT Intravenous aborted at 75 mL/hr, Intravenous, Continuous, Starting Mon10/20/20 at 0000
HL with good PO intake
[facility] Medication administered onsite Bisacodyl 10 MG Rectal Suppository bisacodyl (DULCOLAX ) suppository 10 mg bisacodyl (DULCOLAX) suppository 10 mg 10/20/2020 12:00:00 AM EDT 10 mg Rectal active 10 mg, Rectal, Daily PRN, constipation, Starting Mon10/20/20 at 0000
Hold for BM. If senna-docusate and milk of magnesia are not effective
[facility] Medication administered onsite Mineral Oil 1000 MG/ML Enema mineral oil enema 1 enema mineral oil enema 1 enema 10/20/2020 12:00:00 AM EDT 1 {enema} Rectal active 1 enema, Rectal, Daily PRN, constipation, unrelieved by MOM/bisacodyl/senna-docusate, Starting Mon10/20/20 at 0000
hold for loose stools
[facility] Medication administered onsite Lisinopril 5 MG Oral Tablet lisinopril (PRINIVIL,ZESTR IL) tablet 2.5 mg lisinopril (PRINIVIL,ZESTRIL) tablet 2.5 mg 10/19/2020 09:00:00 PM EDT 2.5 mg Oral active 2.5 mg, Oral, Nightly, First dose on Mon10/19/20 at 2100
Hold for systolic 100 or less.
[facility] Medication administered onsite potassium chloride SA (K-DUR,KLOR-CON) CR tablet 10 mEq [id number] 10/19/2020 09:00:00 PM EDT 10 meq Oral active 10 mEq, Oral, 2 times daily, First dose on Mon10/19/20 at 2100 [facility] Medication administered onsite Docusate Sodium 50 MG / sennosides, JAIL 8.6 MG Oral Tablet senna-docusate (PERICOLACE) 8.6-50 MG 2 tablet senna-docusate (PERICOLACE) 8.6-50 MG 2 tablet 10/19/2020 09:00:00 PM EDT 2 {tbl} Oral active 2 tablet, Oral, Nightly, First dose on Mon10/19/20 at 2100
hold for loose stools
[facility] Medication administered onsite carvedilol 3.125 MG Oral Tablet carvedilol (COREG) tab let 3.125 mg carvedilol (COREG) tablet 3.125 mg 10/19/2020 09:00:00 PM EDT 3.125 mg Oral active 3.125 mg, Oral, 2 times daily, First dos e on Mon10/19/20 at 2100
Hold for HR 60 or less
[facility] Medication administered onsite atorvastatin 40 MG Oral Tablet atorvastatin (LIPITOR) tablet 40 mg atorvastatin (LIPITOR) tablet 40 mg 10/19/2020 09:00:00 PM EDT 40 mg Oral active 40 mg, Oral, Nightly, First dose on Mon10/19/20 at 2100 [facility] Medication administered onsite Cholecalciferol 1000 UNT Oral Tablet Vit scott D (CHOLECALCIFEROL) tablet 1,000 Units Vitamin D (CHOLECALCIFEROL) tablet 1,000 Units 10/19/2020 09 :00:00 PM EDT 1000 U Oral active 1,000 Units, Ora l, Nightly, First dose on Mon10/19/20 at 2100 [facility] Medication administered onsite Docusate Sodium 100 MG Oral Capsule docusate sodium (C OLACE) capsule 100 mg docusate sodium (COLACE) capsule 100 mg 10/19/2020 08:00:00 PM EDT 100 mg Oral active 100 mg, Oral, Every other day, First dose on Mon10/19/20 at 2000
hold for loose stools
[facility] Medication administered onsite Furosemide 20 MG Oral Tablet furosemide (LASIX) tablet 20 mg furosemide (LASIX) tablet 20 mg 10/19/2020 08:00:00 PM EDT 20 mg Oral activ e 20 mg, Oral, Daily, First dose on Mon10/19/20 at 2000
Hold for systolic 100 or less.
[facility] Medication administered onsite 60 ACTUAT formoterol fumarate 0.005 MG/A CTUAT / mometasone furoate 0.2 MG/ACTUAT Metered Dose Inhaler mometasone-formoterol (DULERA) 200-5 MCG/ACT inhaler 2 puff mometasone-formoterol (DULERA) 200-5 MCG/ACT inhaler 2 puff 10/19/2020 08:00:00 PM EDT 2 {puff} Inhalation active 2 pu ff, Inhalation, 2 times daily, First dose on Mon10/19/20 at 2000 [facility] Medication administered onsite Nitroglycerin 0.4 MG Sublingual Tablet n itroglycerin (NITROSTAT) SL tablet 0.4 mg nitroglycerin (NITROSTAT) SL tablet 0.4 mg 10/19/2020 06:52:16 P M EDT 0.4 mg Sublingual active 0.4 mg, S ublingual, Every 5 min PRN, chest pain, Starting Mon10/19/20 at 1852
May administer up to 3 doses per episode.
[facility] Medication administered onsite Albuterol 0.833 MG/ML / Ipratropium Brom janelle 0.167 MG/ML Inhalant Solution ipratropium-albuterol (DUO-NEB) 0.5-2.5 mg/mL nebulizer solution 3 mL ipratropium-albuterol (DUO-NEB) 0.5-2.5 mg/mL nebulizer solution 3 mL 10/19/2020 06:52:09 PM EDT 3 mL Inhalation active 3 mL, Inhalation, Every 6 hours PRN, for shortness of breath, Starting Mon10/19/20 at 1852 [facility] Medication administered onsite Acetaminophen 325 MG / Hydrocodone Emilia trate 5 MG Oral Tablet HYDROcodone- acetaminophen (NORCO) 5-325 MG per tablet 0.5 tablet HYDROcodone-acetaminophen (NORCO) 5-325 MG per tablet 0.5 tablet 10/19/2020 06:51:48 PM EDT 0.5 {tbl} Oral active 0.5 tablet, Or al, Every 6 hours PRN, moderate pain (4-6), Starting Mon10/19/20 at 1851, For 7 days [facility] Medication administered onsite Albuterol 0.83 MG/ML Inhalant Solution a lbuterol (PROVENTIL) nebulizer solution 2.5 mg albuterol (PROVENTIL) nebulizer solution 2.5 mg 2020 06:50:41 PM EDT 2.5 mg active 2.5 mg, Nebulization, RT 4 times daily as needed, wheezing, shortness of breath, Starting Mon10/19/20 at 1850 [facility] Medication administered onsite normal saline flush 0.9 % injection 3 mL [id number] 10/19/2020 02:00:00 PM EDT 3 mL Intravenous active 3 mL , Intravenous, Every 8 hours (scheduled), First dose on Mon10/19/20 at 1400
flush per protocol, D/C Main IV fluid if appropriate
[facility] Medication administered onsite Acetaminophen 325 MG Oral Tablet acetaminophen (TYLENO L) 325 MG tablet 650 mg acetaminophen (TYLENOL) 325 MG tablet 650 mg 10/19/2020 01:00:00 PM EDT 650 mg Oral active 650 mg, Or al, Every 6 hours PRN, mild pain (1-3), Starting Mon10/19/20 at 1300 [facility] Medication administered onsite ondansetron (ZOFRAN) injection 4 mg [id number] 10/19/2020 12:30:0 0 PM EDT 4 mg Intravenous active 4 mg, In travenous, Every 4 hours PRN, nausea, vomiting, Starting Mon10/19/20 at 1230 [facility] Medication administered onsite sodium chloride 0.9% (NS) infusion [id number] 10/19/2020 12:20:00 P M EDT Intravenous aborted at 30 mL/hr, Intravenous, Continuous, Starting Mon10/19/20 at 1220
Increase this MFIV to 75 cc/hr at [place] tonight when she becomes NPO. Thank you.
[facility] Medication administered onsite carbamide peroxide 65 MG/ML Otic Solution [Debrox] Debrox 6. 5 % Debrox 6.5 % 06/30/2020 12:00:00 AM EST 5.0 {drops_into_affected_ear} active Debrox 6.5 % [facility] Ondansetron 4 MG Oral Tablet [Zofran] Zofran 4 MG Zofran 4 M G 06/12/2020 12:00:00 AM EST 1.0 {tablet_as_needed} active Zofran 4 MG eCW1 ([facility]) Ondansetron 4 MG Oral Tablet [Zofran] Zofran 4 MG Zofran 4 M G 06/12/2020 12:00:00 AM EST 1.0 {tablet_as_needed} active Zofran 4 MG eCW1 ([facility]) Ondansetron 4 MG Oral Tablet [Zofran] Zofran 4 MG Zofran 4 M G 06/12/2020 12:00:00 AM EST 1.0 {tablet_as_needed} active Zofran 4 MG eCW1 ([facility]) Ondansetron 4 MG Oral Tablet [Zofran] Zofran 4 MG Zofran 4 M G 06/12/2020 12:00:00 AM EST 1.0 {tablet_as_needed} active eCW1 ([facility]) Ondansetron 4 MG Oral Tablet [Zofran] Zofran 4 MG Zofran 4 M G 06/12/2020 12:00:00 AM EST 1.0 {tablet_as_needed} active Zofran 4 MG eCW1 ([facility]) Ondansetron 4 MG Oral Tablet [Zofran] Zofran 4 MG Zofran 4 M G 06/12/2020 12:00:00 AM EST 1.0 {tablet_as_needed} active Zofran 4 MG eCW1 ([facility]) Ondansetron 4 MG Oral Tablet [Zofran] Zofran 4 MG Zofran 4 M G 06/12/2020 12:00:00 AM EST 1.0 {tablet_as_needed} active Zofran 4 MG eCW1 ([facility]) Ondansetron 4 MG Oral Tablet [Zofran] Zofran 4 MG Zofran 4 M G 06/12/2020 12:00:00 AM EST 1.0 {tablet_as_needed} active Zofran 4 MG eCW1 ([facility]) Ondansetron 4 MG Oral Tablet [Zofran] Zofran 4 MG Zofran 4 M G 06/12/2020 12:00:00 AM EST 1.0 {tablet_as_needed} active Zofran 4 MG eCW1 ([facility]) Acetaminophen 325 MG / Hydrocodone Emilia trate 5 MG Oral Tablet HYDROcodone- acetaminophen (NORCO) 5-325 MG per tablet HYDROcodone-acetaminophen (NORCO) 5- 325 MG per tablet 05/01/2020 12:00:00 AM EDT 1 {tbl} Oral aborted Take 1 tablet by mouth every 6 (six) hours as needed for pain Max Daily Amount: 4 tablets [facility] Acetaminophen 325 MG / Hydrocodone Emilia trate 5 MG Oral Tablet HYDROcodone- acetaminophen (NORCO) 5-325 MG per tablet 0.5 tablet HYDROcodone-acetaminophen (NORCO) 5-325 MG per tablet 0.5 tablet 04/29/2020 10:00:00 AM EDT 0.5 {tbl} Oral active 0.5 tablet, Or al, Every 4 hours PRN, moderate pain (4-6), Starting Mon04/29/20 at 1000, For 144 hours [facility] Medication administered onsite Acetaminophen 325 MG / Hydrocodone Emilia trate 5 MG Oral Tablet HYDROcodone- acetaminophen (NORCO) 5-325 MG per tablet 1 tablet HYDROcodone-acetaminophen (NORCO) 5-325 MG per tablet 1 tablet 04/29/2020 10:00:00 AM EDT 1 { tbl} Oral active 1 tablet, Oral, Every 4 hours PRN, severe pain (7-10), Starting Mon04/29/20 at 1000, For 144 hours [facility] Medication administered onsite Influenza Vac Split Quad injection 0.5 mL [id number] 04/29/2020 0 9:00:00 AM EDT 0.5 mL Intramuscular completed 0.5 mL , Intramuscular, During hospitalization, Mon04/29/20 at 0900, For 1 dose [facility] Medication administered onsite clopidogrel 75 MG Oral Tablet clopidogrel (PLAVIX) tab let 75 mg clopidogrel (PLAVIX) tablet 75 mg 04/29/2020 09:00:00 AM EDT 75 mg Oral active 75 mg, Oral, Daily, First dose on Mon04/29/20 at 0900 [facility] Medication administered onsite Furosemide 20 MG Oral Tablet furosemide (LASIX) tablet 20 mg furosemide (LASIX) tablet 20 mg 04/29/2020 09:00:00 AM EDT 20 mg Oral activ e 20 mg, Oral, Daily, First dose on Mon04/29/20 at 0900 [facility] Medication administered onsite potassium chloride SA (K-DUR,KLOR-CON) CR tablet 10 mEq [id number] 9-359-04/29/2020 09:00:00 AM EDT 10 meq Oral active 10 mEq, Oral, 2 times daily, First dose on Mon04/29/20 at 0900 [facility] Medication administered onsite normal saline flush 0.9 % injection 3 mL [id number] 04/28/2020 10:00:00 PM EDT 3 mL Intravenous active 3 mL , Intravenous, PROTOCOL, First dose on Mon04/28/20 at 2200, PACU & Post-op
With good PO intake (600 ml X 1 shift)
[facility] Medication administered onsite rivaroxaban (XARELTO) 2.5 mg [id number] 04/28/2020 09:00:00 PM EDT 2.5 mg Oral active 2.5 mg, Oral, 2 times daily, First dose on Mon04/28/20 at 2100 [facility] Medication administered onsite carvedilol 3.125 MG Oral Tablet carvedilol (COREG) tab let 3.125 mg carvedilol (COREG) tablet 3.125 mg 04/28/2020 09:00:00 PM EDT 3.125 mg Oral active 3.125 mg, Oral, 2 times daily, First dos e on Mon04/28/20 at 2100
Hold for SBP less than 100, HR less than 60
[facility] Medication administered onsite atorvastatin 40 MG Oral Tablet atorvastatin (LIPITOR) tablet 40 mg atorvastatin (LIPITOR) tablet 40 mg 04/28/2020 09:00:00 PM EDT 40 mg Oral active 40 mg, Oral, Nightly, First dose on Mon04/28/20 at 2100 [facility] Medication administered onsite Alprazolam 0.25 MG Oral Tablet ALPRAZolam (XANAX) tabl et 0.25 mg ALPRAZolam (XANAX) tablet 0.25 mg 04/28/2020 09:00:00 PM EDT 0.25 mg Oral active 0.25 mg, Oral, Nightly PRN, sleep, Starting Mon04/28/20 at 2100, For 7 days [facility] Medication administered onsite Lisinopril 5 MG Oral Tablet lisinopril (PRINIVIL,ZESTR TX) tablet 2.5 mg lisinopril (PRINIVIL,ZESTRIL) tablet 2.5 mg 04/28/2020 09:00:00 PM EDT 2.5 mg Oral active 2.5 mg, Oral, Nightly, First dose on Mon04/28/20 at 2100
Hold for SBP less than 110
[facility] Medication administered onsite 60 ACTUAT formoterol fumarate 0.005 MG/A CTUAT / mometasone furoate 0.2 MG/ACTUAT Metered Dose Inhaler mometasone-formoterol (DULERA) 200-5 MCG/ACT inhaler 2 puff mometasone-formoterol (DULERA) 200-5 MCG/ACT inhaler 2 puff 04/28/2020 08:00:00 PM EDT 2 {puff} Inhalation active 2 puff, Inhalation, 2 times daily, First dose on Mon04/28/20 at 2000
Formulary substitution for Advair Diskus
[facility] Medication administered onsite Acetaminophen 325 MG / Hydrocodone Emilia trate 5 MG Oral Tablet HYDROcodone- acetaminophen (NORCO) 5-325 MG per tablet 1 tablet HYDROcodone-acetaminophen (NORCO) 5-325 MG per tablet 1 tablet 04/28/2020 06:20:09 PM EDT 1 { tbl} Oral aborted 1 tablet, Oral, Every 6 hours PRN, severe pain (7-10), Starting Mon04/28/20 at 1820, For 167 hours [facility] Medication administered onsite Docusate Sodium 100 MG Oral Capsule docusate sodium (C OLACE) capsule 100 mg docusate sodium (COLACE) capsule 100 mg 04/28/2020 05:00:00 PM EDT 100 mg Oral active 100 mg, Oral, 2 times daily, First dose on Mon04/28/20 at 1700
hold for loose stools
[facility] Medication administered onsite pantoprazole 40 MG Delayed Release Oral Tablet pantoprazole (PROTONIX) EC tablet 40 mg pantoprazole (PROTONIX) EC tablet 40 mg 04/28/2020 05:00:00 PM E DT 40 mg Oral active Gastrointestinal Hemorrhage 40 mg, Oral, Daily, Indications: Gastrointestinal Hemorrhage, First dose on Mon04/28/20 at 1700 [facility] Gastrointestinal Hemorrhage Medication administered onsite Clindamycin 18 MG/ML Injectable Solution clindamycin (CLEOCIN) IVPB 900 mg (premix) clindamycin (CLEOCIN) IVPB 900 mg (premix) 04/28/2020 04:00: 00 PM EDT 900 mg Intravenous completed Perioperative Pharmacoprop hylaxis 900 mg, Intravenous, Administer over 30 Minutes, Every 8 hours (relative), First dose on Mon04/28/20 at 1600, For 2 doses [facility] Perioperative Pharmacoprophylaxis Medication administered onsite sennosides, JAIL 8.6 MG Oral Tablet senna (SENOKOT) tab let 8.6 mg senna (SENOKOT) tablet 8.6 mg 04/28/2020 04:00:00 PM EDT 8.6 mg Oral act lisa 8.6 mg, Oral, Daily, First dose on Mon04/28/20 at 1600, PACU & Post-op [facility] Medication administered onsite dextrose 5 % and sodium chloride 0.45 % with KCl 20 mEq/L in fusion [id number] 04/28/2020 04:00:00 PM EDT Intravenous aborted at 75 mL/hr, Intravenous, Continuous, Starting Mon04/28/20 at 1600, PACU & Post-op
This is a "Triggered Filled Infusion" and is automatically sent based on the current rate documented in the flow sheets
[facility] Medication administered onsite POLYETHYLENE GLYCOL 3350 142 MG/ML Oral Solution polyethylene glycol (GLYCOLAX) packet 17 g polyethylene glycol (GLYCOLAX) packet 17 g 04/28/2020 02:51:19 PM EDT 17 g Oral active 17 g, Or al, Daily PRN, if no result from milk of magnesia (MOM), Starting Mon04/28/20 at 1451, PACU & Post-op [facility] Medication administered onsite 2 ML Metoclopramide 5 MG/ML Prefilled Sy ringe metoclopramide (REGLAN) injection 10 mg metoclopramide (REGLAN) injection 10 mg 04/28/2020 02:51:19 PM E DT 10 mg Intravenous active 10 mg, I ntravenous, Every 6 hours PRN, heartburn, Starting Mon04/28/20 at 1451, PACU & Post-op [facility] Medication administered onsite ondansetron (ZOFRAN) injection 4 mg [id number] 04/28/2020 02:51:1 9 PM EDT 4 mg Intravenous active 4 mg, In travenous, As needed, nausea, vomiting, Starting Mon04/28/20 at 1451, PACU & Post-op
Give for one dose if no response from metoclopramide
[facility] Medication administered onsite Magnesium Hydroxide 80 MG/ML Oral Suspen alex magnesium hydroxide (MILK OF MAGNESIA) 400 MG/5ML suspension 30 mL magnesium hydroxide (MILK OF MAGNESIA) 4 00 MG/5ML suspension 30 mL 04/28/2020 02:51:19 PM EDT 30 mL Oral active 30 mL, Oral, Daily PRN, constipation, Starting Mon04/28/20 at 1451, PACU & Post-op [facility] Medication administered onsite Acetaminophen 325 MG / Hydrocodone Emilia trate 5 MG Oral Tablet HYDROcodone- acetaminophen (NORCO) 5-325 MG per tablet 0.5 tablet HYDROcodone-acetaminophen (NORCO) 5-325 MG per tablet 0.5 tablet 04/28/2020 02:51:19 PM EDT 0.5 {tbl} Oral aborted 0.5 tablet, Or al, Every 6 hours PRN, moderate pain (4-6), Starting Mon04/28/20 at 1451, For 7 days [facility] Medication administered onsite Albuterol 0.833 MG/ML / Ipratropium Brom janelle 0.167 MG/ML Inhalant Solution ipratropium-albuterol (DUO-NEB) 0.5-2.5 mg/mL nebulizer solution 3 mL ipratropium-albuterol (DUO-NEB) 0.5-2.5 mg/mL nebulizer solution 3 mL 04/28/2020 02:51:19 PM EDT 3 mL Inhalation active 3 mL, Inhalation, Every 6 hours PRN, for shortness of breath, Starting Mon04/28/20 at 1451 [facility] Medication administered onsite Bisacodyl 10 MG Rectal Suppository bisacodyl (DULCOLAX ) suppository 10 mg bisacodyl (DULCOLAX) suppository 10 mg 04/28/2020 02:51:18 PM EDT 10 mg Rectal active 10 mg, Rectal, Daily PRN, constipation, Starting Mon04/28/20 at 1451, PACU & Post-op [facility] Medication administered onsite Acetaminophen 325 MG Oral [...] mg from all sources in 24 hours."
[facility] Medication administered onsite Albuterol 0.83 MG/ML Inhalant Solution a lbuterol (PROVENTIL) nebulizer solution 2.5 mg albuterol (PROVENTIL) nebulizer solution 2.5 mg 2019 02:51:18 PM EDT 2.5 mg active 2.5 mg, Nebulization, RT every 4 hours as needed, shortness of breath, Starting Mon04/28/20 at 1451 [facility] Medication administered onsite ondansetron (ZOFRAN) injection 4 mg [id number] 04/28/2020 10:44:1 8 AM EDT 4 mg Intravenous completed 4 mg, In travenous, Once as needed, nausea, vomiting, if not given in last 4 hours, Starting Mon04/28/20 at 1044, For 1 dose, PACU (only) [facility] Medication administered onsite fentaNYL Citrate (PF) (SUBLIMAZE) injection 25 mcg [id number] 04/28/2020 10:44:18 AM EDT 25 ug Intravenous aborted 25 mcg, Intravenous, Every 5 min PRN, moderate pain (4 to 6), Starting Mon04/28/20 at 1044, For 10 doses, PACU (only) [facility] Medication administered onsite Magnesium Chloride 0.32942 MEQ/ML / Pota ssium Chloride 0.0497 MEQ/ML / Sodium Acetate 0.0163 MEQ/ML / Sodium Chloride 0.0899 MEQ/ML / Sodium gluconate 5.02 MG/ML Injectable Solution [Normosol-R] electrolyte-R (NORMOSOL-R/PLASMALYTE-R) solution electrolyte-R (NORMOSOL-R/PLASMALYTE-R) solution 04/28 08:00:00 AM EDT Intravenous aborted at 1 00 mL/hr, Intravenous, Continuous, Starting Mon04/28/20 at 0800, Pre-op [facility] Medication administered onsite Acetaminophen 325 MG Oral Tablet acetaminophen (TYLENO L) 325 MG tablet acetaminophen (TYLENOL) 325 MG tablet 12/28/2019 12:00:00 AM EDT 65 0 mg Oral aborted Take 2 tablets (650 mg total) by mouth every 6 (six) hours as needed for pain [facility] rivaroxaban (XARELTO) 2.5 MG TABS [id number] 12/27/2019 12:00:00 AM E DT 2.5 mg Oral aborted Take 1 tablet (2.5 m g total) by mouth 2 (two) times a day [facility] Ascorbic Acid 226 MG / Beta Carotene 143 20 UNT / cuprous oxide 0.8 MG / dl-alpha tocopheryl acetate 200 UNT / Zinc Oxide 34.8 MG Oral Capsule [PreserVision] Multiple Vitamins-Minerals (PreserVision AREDS) CAPS Multiple Vitamins-Minerals (PreserVision AREDS) CAPS 11/16/2016 12:00:00 AM EDT Oral aborted Take by mouth [facility] Acetaminophen 325 MG / Hydrocodone Emilia trate 5 MG Oral Tablet HYDROcodone- acetaminophen (NORCO) 5-325 MG per tablet HYDROcodone-acetaminophen (NORCO) 5- 325 MG per tablet 0.5 {tbl} Oral aborted Take 0.5 tablets by mouth 2 (two) times a day [facility] gabapentin 100 MG Oral Capsule gabapentin (NEURONTIN) 100 MG capsule gabapentin (NEURONTIN) 100 MG capsule 200 mg Oral aborted Take 200 mg by mouth 2 (two) times a day [facility] Aspirin 81 MG Chewable Tablet aspirin 81 MG chewable t ablet aspirin 81 MG chewable tablet 81 mg Oral aborted Chew 81 mg daily [facility] Acetaminophen 325 MG / Oxycodone Hydroch loride 5 MG Oral Tablet oxyCODONE- acetaminophen (PERCOCET) 5-325 MG per tablet oxyCODONE-acetaminophen (PERCOCET) 5-325 MG per tablet {tbl} Oral aborted Take 1-2 tablets by mouth every 4 (four) hours as needed for pain [facility] Acetaminophen 325 MG / Hydrocodone Emilia trate 5 MG Oral Tablet HYDROcodone- acetaminophen (NORCO) 5-325 MG per tablet HYDROcodone-acetaminophen (NORCO) 5- 325 MG per tablet 0.5 {tbl} Oral aborted Take 0.5 tablets by mouth every 6 (six) hours as needed for pain [facility] doxycycline hyclate 100 MG Oral Tablet doxycycline ( BRA-TABS) 100 MG tablet doxycycline (VIBRA-TABS) 100 MG tablet 100 mg Oral aborted Take 100 mg by mouth 2 (two) times a day [facility] doxycycline anhydrous 40 MG Delayed Rele ase Oral Capsule doxycycline (ORACEA) 40 MG capsule doxycycline (ORACEA) 40 MG capsule 40 mg Oral aborted Take 40 mg by mouth every morning [facility] potassium chloride SA (K-DUR,KLOR-CON) 10 MEQ tablet [id number] 10 meq Oral aborted Take 10 mEq by mouth 2 (two) times a day [facility] Acetaminophen 325 MG / Hydrocodone Emilia trate 5 MG Oral Tablet HYDROcodone- acetaminophen (NORCO) 5-325 MG per tablet HYDROcodone-acetaminophen (NORCO) 5- 325 MG per tablet 0.5 {tbl} Oral aborted Take 0.5 tablets by mouth every 4 (four) hours as needed for pain [facility] Insurance Providers Payer name Policy type / Coverage type Policy ID Covered democrat ID Covered democrat's relationship to riley Policy Riley Plan Information Medicare (Part B) Medicare Primary [id number] Self 1 [id number] MEDICARE [id number] Perla [id number] A Medicare (Part B) Medicare Primary [id number] Self Medicare (Part B) Medicare Primary [id number] Self 1 [id number] Medicare (Part B) Medicare Primary [id number] Self 1 [id number] Medicare (Part B) Medicare Primary [id number] Self [id number] Medicare (Part B) Medicare Primary [id number] Self 1 [id number] Medicare (Part B) Medicare Primary [id number] Self 1 [id number] Medicare (Part B) Medicare Primary [id number] Self [id number] Medicare (Part B) Medicare Primary [id number] Self 1 [id number] Medicare (Part B) Medicare Primary [id number] Self 1 [id number] Medicare Medicare Primary [id number] Self Medicare (Part B) Medicare Primary [id number] Self 1 [id number] MEDICARE COMPLETE [id number] SP [id number] [facility] Medicare Solutions F [id number] SELF [id number] [facility] Medicare Complete F [id number] SELF [id number] MEDICARE COMPLETE [id number] SP [id number] [employer] Medicare Commercial [id number] Self [id number] MEDICARE COMPLETE [id number] SP [id number] MEDICARE COMPLETE [id number] SP [id number] [facility] MEDICARE [id number] xxxxxxxxx [id number] [facility] MEDICARE [id number] Perla [id number] INSURANCE COVID-19 COVID19 Perla C [id number] INSURANCE COVID-19 [id number] [id number] INSURANCE COVID-19 [id number] xOVID [id number] INSURANCE COVID-19 COVID Perla C OVID INSURANCE COVID-19 COVID Perla C OVID INSURANCE COVID-19 [id number] xxxxx [id number] [facility]-Medicare Solutions Commercial [id number] Self [id number] ANSI-Not a Secondary Insurance [id number] ANSI-Not a Secondary Insurance [id number] ANSI-Not a Secondary Insurance [id number] ANSI-Not a Secondary Insurance [id number] MEDICARE [id number] SP [id number] ANSI-Not a Secondary Insurance [id number] ANSI-Not a Secondary Insurance [id number] MEDICARE [id number] SP [id number] A [facility] [id number] SP [id number] [facility] MEDICARE [id number] S [id number] UNITED HEALTHCARE O [id number] S [id number] UNITED HEALTHCARE [id number] SP [id number] UNITED HEALTHCARE [id number] SP [id number] UNITED [facility] [id number] SP [id number] [facility]-Medicare Solutions Commercial [id number] Self [id number] Medicare [place] Medicare Primary [id number] Self [id number] [facility] (or) Medigap Part B [id number] Self [id number] [facility] O [id number] S [id number] MEDICARE C [id number] S [id number] A [facility] OPTIONS C [id number] S [id number] [facility] [id number] SP [id number] Medicare [place] Medicare Primary [id number] Self [id number] [facility] [id number] SP [id number] [facility]-Commercial Plan Medigap Part B [id number] Self [id number] Medicare [place] Medicare Primary [id number] Self [id number] Medicare [place] Medicare Primary [id number] Self [id number] [facility] O [id number] S [id number] [facility]-Commercial Plan Medigap Part B [id number] Self [id number] [employer] [place] 332/834 [id number] SP [id number] [place] BCBS B [id number] S [id number] [facility]-Commercial Plan Medigap Part B [id number] Self [id number] [facility]-Commercial Plan [facility] [id number] Self [id number] BS [place] [facility] [id number] Self [id number] Medicare [place] Medicare Primary [id number] Self [id number] [employer] [place] 332/834 [id number] SP [id number] [employer] [place] 332/834 [id number] SP [id number] [employer] Blue Pref Medigap Part B [id number] Self BS [place] [facility] .[id number] Self Medicare [place] Medicare Primary .[id number] Self [place] BCBS Medigap Part B [id number] Self [place] PPO 302/307 [id number] SP [id number] SELF PAY 2 UNAVAILABLE 1 UNAVAILA BLE BC BLUE CARD 1 [id number] 1 UQVA [id number] MEDICARE COMPLETE [id number] SP [id number] A MEDICARE [id number] SP [id number] MEDICARE COMPLETE [id number] SP [id number] MEDICARE COMPLETE[place] [id number] S [id number] [facility] [id number] SP [id number] ANSI-Medicare Part B [id number] ANSI-Medicare Part B [id number] ANSI-Medicare Part B [id number] ANSI-Medicare Part B [id number] ANSI-Medicare Part B [id number] [facility] [id number] SP [id number] [facility]-Medicare Solutions Commercial [id number] Self [id number] [facility]-Medicare Solutions Commercial [id number] Self [id number] ANSI-Not a Secondary Insurance [id number] ANSI-Not a Secondary Insurance [id number] ANSI-Not a Secondary Insurance [id number] ANSI-Not a Secondary Insurance [id number] ANSI-Not a Secondary Insurance [id number] ANSI-Not a Secondary Insurance [id number] [id number] ANSI-Not a Secondary Insurance [id number] ANSI-Not a Secondary Insurance [id number] ANSI-Not a Secondary Insurance [id number] [id number] ANSI-Not a Secondary Insurance [id number] [employer] [id number] Self [id number] [employer] [id number] Self [id number] ANSI-Not a Secondary Insurance [id number] ANSI-Not a Secondary Insurance [id number] [employer] Commercial [id number] Self [id number] Problems, Conditions, and Diagnoses Code Display Name Description Problem Type Effective Dates Data Source(s) B99.9 Unspecified infectious disease Unspecified infectious disease Diagnosis 04/14/2021 02:07:17 PM EDT [facility] T82.7XXD Infection and inflammatory r eaction due to other cardiac and vascular devices, implants and grafts, subsequent encounter Infection and inflammatory reaction due Diagnosis 04/06/2021 10:05:55 AM EDT [facility] A49.8 Other bacterial infections of unspecifie d site Other bacterial infections of unspecifie Diagnosis 04/06/2021 10:05:55 AM EDT [facility] T81.30XA Disruption of wound, unspecified, initia l encounter Disruption of wound, unspecified, initia Diagnosis 03/10/2021 02:00:00 PM EDT [facility] T81.31XA Disruption of external opera tion (surgical) wound, not elsewhere classified, initial encounter Disruption of external operation (surgic Diagnosis 03/10/2021 02:00:00 PM EDT [facility] I99.8 Other disorder of circulatory system Other disor stefan of circulatory system Diagnosis 01/25/2021 01:40:00 PM EDT [facility] I73.9 Peripheral vascular disease, unspecified Peripheral vascular disease, unspecified Diagnosis 01/25/2021 01:40:00 PM EDT [facility] J98.8 Other specified respiratory disorders Ot her specified respiratory disorders Diagnosis 04/23/2020 10:09:37 AM EDT [facility] U07.1 COVID-19 COVID-19 Diagnosis 04/23/2020 10:09:37 AM ED T [facility] 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, left leg Atherosclerosis of makah arteries of ex Diagnosis 04/23/2020 10:08:35 AM EDT [facility] 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 [id number] 05/14/2021 12:00:00 AM EDT [facility] G45.9 [id number] TIA (transient ischemic attack) Problem 04/23/2021 12:00:00 AM EDT [facility] [id number] 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 Infection by B acteroides fragilis Problem 03/13/2021 12:00:00 AM EDT [facility] ([facility] A49.8 Bacteroides fragilis infection Bacteroides fragilis in fection [id number] 03/13/2021 12:00:00 AM EDT [facility] 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 Prob jet 03/12/2021 12:00:00 AM EDT [facility] ([facility]) [id number] Body temperature above reference range B dwaine temperature above reference range Problem 03/12/2021 12:00:00 AM EDT [facility] R50.9 Temperature elevation Temperature elevation [id number] 03/12/2021 12:00:00 AM EDT [facility] T82.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 6457 200003/12/2021 12:00:00 AM EDT [facility] [id number] Wound dehiscence Wound dehiscence Problem 03/11/2021 12 :00:00 AM EDT [facility] ([facility]) [id number] Atherosclerosis of arteries of the extre mities Atherosclerosis of arteries of the extremities Problem 03/11/2021 12:00:00 AM EDT [facility] ([facility]) D64.9 Anemia Anemia [id number] 03/11/2021 12:00:00 AM ED T [facility] K21.9 GERD (gastroesophageal reflux disease) G ERD (gastroesophageal reflux disease) [id number] 03/11/2021 12:00:00 AM EDT [facility] E78.5 Hyperlipidemia Hyperlipidemia [id number] 03/11/2021 12:00: 00 AM EDT [facility] I10 Hypertension Hypertension [id number] 03/11/2021 12:00:00 A M EDT [facility] I73.9 Peripheral vascular disease Peripheral vascular diseas e [id number] 03/11/2021 12:00:00 AM EDT [facility] 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 [id number] 03/11/2021 12:00:00 AM EDT [facility] T81.30XA Left groin wound ulcer with graft exposu re Left groin wound ulcer with graft exposure [id number] 03/11/2021 12:00:00 AM EDT [facility] [id number] Gastroesophageal reflux disease Gastroesophageal reflux disease Problem 01/25/2021 12:00:00 AM EDT [facility] ([facility] [id number] Coronary arteriosclerosis Coronary arteriosclerosis Pr oblem 01/25/2021 12:00:00 AM EDT [facility] ([facility]) Note: Overview: f/u by Dr. Metzger [id number] Pain in left lower limb Pain in left lower limb Proble m 01/25/2021 12:00:00 AM EDT [facility] ([facility]) [id number] Hypertensive disorder Hypertensive disorder Problem 01/25/2021 12:00:00 AM EDT [facility] ([facility]) [id number] Hyperlipidemia Hyperlipidemia Problem 01/25/2021 12:00: 00 AM EDT [facility] ([facility]) I25.10 Coronary artery disease Coronary artery disease [id number] 01/25/2021 12:00:00 AM EDT [facility] M79.605 Lower extremity pain, left Lower extremity pain, left [id number] 01/25/2021 12:00:00 AM EDT [facility] [id number] Ischemia of left lower extremity Ischemi a of left lower extremity Problem 12/24/2020 12:00:00 AM EDT [facility] ([facility] Note: Overview: 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 [id number] Anemia Anemia Problem 12/24/2020 12:00:00 AM ED T [facility] ([facility]) I99.8 Ischemia of left lower extremity Ischemia of lef t lower extremity [id number] 12/24/2020 12:00:00 AM EDT [facility] [id number] Peripheral vascular disease Peripheral vascular diseas e Problem 10/20/2020 12:00:00 AM EDT [facility] ([facility]) Surgeries/Procedures Procedure Description Date Indications Data Source(s) BLOOD COUNT COMPLETE AUTOMATED <td>CBC</td><td>Timed</ td><td>03/18/2021 5:08 AM EDT</td><td></td><td> </td> 03/18/2021 05:08:00 AM EDT [facility] BASIC METABOLIC PANEL CALCIUM TOTAL <td>BASIC METABOLI C PANEL</td><td>Timed</td><td>03/18/2021 5:08 AM EDT</td><td></td><td> </td> 03/18/2021 05:08:00 AM EDT [facility] BLOOD COUNT COMPLETE AUTOMATED <td>CBC</td><td>Timed</ td><td>03/16/2021 8:33 AM EDT</td><td></td><td> </td> 03/16/2021 08:33:00 AM EDT [facility] MAGNESIUM <td>MAGNESIUM</td><td>Timed< /td><td>03/16/2021 8:33 AM EDT</td><td></td><td> </td> 03/16/2021 08:33:00 AM EDT [facility] BASIC METABOLIC PANEL CALCIUM TOTAL <td>BASIC METABOLI C PANEL</td><td>Timed</td><td>03/16/2021 8:33 AM EDT</td><td></td><td> </td> 03/16/2021 08:33:00 AM EDT [facility] WOUND OSTOMY EVAL AND TREAT <td>WOUND OSTOMY EVAL AND TREAT</td><td>Routine</td><td>03/15/2021 7:04 AM EDT</td><td></td><td></td> 03/15/2021 07:04:38 AM EDT [facility] BLOOD COUNT COMPLETE AUTOMATED <td>CBC</td><td>Timed</ td><td>03/15/2021 5:53 AM EDT</td><td></td><td> </td> 03/15/2021 05:53:00 AM EDT [facility] BASIC METABOLIC PANEL CALCIUM TOTAL <td>BASIC METABOLI C PANEL</td><td>Timed</td><td>03/15/2021 5:53 AM EDT</td><td></td><td> </td> 03/15/2021 05:53:00 AM EDT [facility] DRUG SCREEN QUALITATIVE VANCOMYCIN <td>VANCOMYCIN, TROUGH</td><td>STAT</td><td>03/14/2021 10:42 AM EDT</td><td></td><td> </td> 03/14/2021 10:42:00 AM EDT [facility] BASIC METABOLIC PANEL CALCIUM TOTAL <td>BASIC METABOLI C PANEL</td><td>STAT</td><td>03/14/2021 7:31 AM EDT</td><td></td><td> </td> 03/14/2021 07:31:00 AM EDT [facility] BLOOD COUNT COMPLETE AUTOMATED <td>CBC</td><td>STAT</t d><td>03/14/2021 7:31 AM EDT</td><td></td><td> </td> 03/14/2021 07:31:00 AM EDT [facility] BLOOD COUNT HEMOGLOBIN <td>HEMOGLOBIN AND HEMATOCRI T, BLOOD</td><td>STAT</td><td>03/12/2021 6:29 PM EDT</td><td></td><td> </td> 03/12/2021 06:29:00 PM EDT [facility] BLOOD COUNT COMPLETE AUTOMATED <td>CBC</td><td>Routine </td><td>03/12/2021 4:17 AM EDT</td><td></td><td> </td> 03/12/2021 04:17:00 AM EDT [facility] DRUG SCREEN QUALITATIVE VANCOMYCIN <td>VANCOMYCIN, TRO UGH</td><td>Add- On</td><td>03/12/2021 4:17 AM EDT</td><td></td><td> </td> 03/12/2021 04:17:00 AM EDT [facility] BASIC METABOLIC PANEL CALCIUM TOTAL <td>BASIC METABOLI C PANEL</td><td>Routine</td><td>03/12/2021 4:17 AM EDT</td><td></td><td> </td> 03/12/2021 04:17:00 AM EDT [facility] TRANSFUSE RED BLOOD CELLS <td>TRANSFUSE RED BLOOD CELLS</td><td>Routine</td><td>03/12/2021 1:20 AM EDT</td><td></td><td></td> 03/12/2021 01:20:00 AM EDT [facility] BLOOD COUNT COMPLETE AUTOMATED <td>CBC</td><td>STAT</t d><td>03/11/2021 9:13 PM EDT</td><td></td><td> </td> 03/11/2021 09:13:00 PM EDT [facility] CUL BACT XCPT URINE BLOOD/STOOL AEROBIC ISOL <td>WOUND CULTURE</td><td>Routine</td><td>03/11/2021 2:30 PM EDT</td><td></td><td> </td> 03/11/2021 02:30:00 PM EDT [facility] CUL BACT XCPT URINE BLOOD/STOOL AEROBIC ISOL <td>AEROB IC FLUID CULTURE / GS</td><td>Routine</td><td>03/11/2021 2:30 PM EDT</td><td></td><td> </td> 03/11/2021 02:30:00 PM EDT [facility] CULTURE TUBERCLE/OTH ACID-FAST BACILLI ANY ISOL <td>AF B SMEAR+CULTURE</td><td>Routine</td><td>03/11/2021 2:30 PM EDT</td><td></td><td></td> 03/11/2021 02:30:00 PM EDT [facility] CULTURE FNGI MOLD/YEAST PRSMPTV OTH XCPT BLOOD <td>FUN GAL CULTURE, NON BLOOD</td><td>Routine</td><td>03/11/2021 2:30 PM EDT</td><td></td><td></td> 03/11/2021 02:30:00 PM EDT [facility] CULTURE BACTERIAL ANY SOURCE ANAEROBIC ISO&ID <td>ANAE ROBIC CULTURE</td><td>Routine</td><td>03/11/2021 2:30 PM EDT</td><td></td><td> </td> 03/11/2021 02:30:00 PM EDT [facility] REPAIR, ANEURYSM, ARTERY, FEMORAL <td>REPAIR, ANEURYSM , ARTERY, FEMORAL</td><td></td><td>03/11/2021 1:41 PM EDT</td><td> LEFT GROIN INFECTION</td><td></td> 03/11/2021 01:41:00 PM EDT - 03/11/2021 03:53:00 PM EDT [facility] LEVEL IV SURG PATHOLOGY GROSS&MICROSCOPIC EXAM <td>[facility] HISTOLOGY</td><td>Routine</td><td>03/11/2021 9:55 AM EDT</td><td></td><td> </td> 03/11/2021 09:55:00 AM EDT [facility] BLOOD COUNT COMPLETE AUTOMATED <td>CBC</td><td>Routine </td><td>03/11/2021 7:42 AM EDT</td><td></td><td> </td> 03/11/2021 07:42:00 AM EDT [facility] BASIC METABOLIC PANEL CALCIUM TOTAL <td>BASIC METABOLI C PANEL</td><td>Routine</td><td>03/11/2021 7:42 AM EDT</td><td></td><td> </td> 03/11/2021 07:42:00 AM EDT [facility] EXCISION INFECTED GRAFT EXTREMITY 03/11/2021 12:00:00 AM EDT [facility] ([facility]) Adj Tissue Tranfser Any Area; Defect 30.1 SQ CM To 60.0 SQ C M 03/11/2021 12:00:00 AM EDT [facility] ([facility]) COVID/FLU AB/RSV PCR <td>COVID/FLU AB/RSV PCR</td ><td>STAT</td><td>03/10/2021 4:55 PM EDT</td><td></td><td> </td> 03/10/2021 04:55:00 PM EDT [facility] XR CHEST PORTABLE <td>XR CHEST PORTABLE</td><t d>Routine</td><td>03/10/2021 4:54 PM EDT</td><td></td><td> </td> 03/10/2021 04:54:20 PM EDT [facility] IADNA S AUREUS METHICILLIN RESIST AMP PROBE TQ <td>MRS A SCREEN BY PCR</td><td>Routine</td><td>03/10/2021 4:45 PM EDT</td><td></td><td> </td> 03/10/2021 04:45:00 PM EDT [facility] CUL BACT XCPT URINE BLOOD/STOOL AEROBIC ISOL <td>WOUND CULTURE</td><td>Routine</td><td>03/10/2021 4:30 PM EDT</td><td></td><td> </td> 03/10/2021 04:30:00 PM EDT [facility] CULTURE BACTERIAL ANY SOURCE ANAEROBIC ISO&ID <td>ANAE ROBIC CULTURE</td><td>Routine</td><td>03/10/2021 4:30 PM EDT</td><td></td><td> </td> 03/10/2021 04:30:00 PM EDT [facility] CULTURE BACTERIAL BLOOD AEROBIC W/ID ISOLATES <td>BLOO D CULTURE</td><td>Routine</td><td>03/10/2021 3:35 PM EDT</td><td></td><td> </td> 03/10/2021 03:35:00 PM EDT [facility] CULTURE BACTERIAL BLOOD AEROBIC W/ID ISOLATES <td>BLOO D CULTURE</td><td>Routine</td><td>03/10/2021 3:35 PM EDT</td><td></td><td> </td> 03/10/2021 03:35:00 PM EDT [facility] THROMBOPLASTIN TIME PARTIAL PLASMA/WHOLE BLOOD <td>APTT</td><td>Routine</td><td>03/10/2021 3:35 PM EDT</td><td></td><td> </td> 03/10/2021 03:35:00 PM EDT [facility] PROTHROMBIN TIME <td>PROTIME-INR</td><td>Rout ine</td><td>03/10/2021 3:35 PM EDT</td><td></td><td> </td> 03/10/2021 03:35:00 PM EDT [facility] BLOOD TYPING ABO <td>TYPE AND SCREEN</td><td> Routine</td><td>03/10/2021 3:35 PM EDT</td><td></td><td> </td> 03/10/2021 03:35:00 PM EDT [facility] COMPREHENSIVE METABOLIC PANEL <td>COMPREHENSIVE METABO LIC PANEL</td><td>Routine</td><td>03/10/2021 3:35 PM EDT</td><td></td><td> </td> 03/10/2021 03:35:00 PM EDT [facility] OFFICE OUTPATIENT VISIT 40 MINUTES 03/10/2021 12:00:00 AM EDT [facility] ([facility]) DUPLEX SCAN EXTRACRANIAL ART COMPL BI STUDY 03/01/2021 12:00:00 AM EDT [facility] ([facility]) OFFICE OUTPATIENT VISIT 25 MINUTES 03/01/2021 12:00:00 AM EDT [facility] ([facility]) OFFICE OUTPATIENT VISIT 15 MINUTES 02/19/2021 12:00:00 AM EDT [facility] ([facility]) Fem-Pop Angioplasty/Stent 01/28/2021 12:00:00 AM EDT [facility] ([facility]) Moderate Sedation Services; Same Phys Intl 15 Mins; PT >= 5 Years 01/28/2021 12:00:00 AM EDT [facility] ([facility]) Moderate Sedation Services; Same Phys Intl 15 Mins; PT >= 5 Years 01/26/2021 12:00:00 AM EDT [facility] ([facility]) Femoral-Popliteal Angioplasty 01/26/2021 12:00:00 AM E DT [facility] ([facility]) Femoral-Popliteal Angioplasty 01/26/2021 12:00:00 AM E DT [facility] ([facility]) Electrocardiogram Tracing Only 01/25/2021 12:00:00 AM EDT [facility] ([facility]) DUP-SCAN LXTR ART/ARTL BPGS COMPL BI STUDY 01/20/2021 12:00:00 AM EDT [facility] ([facility]) BLOOD COUNT COMPLETE AUTOMATED <td>CBC</td><td>Routine </td><td>12/26/2020 6:18 AM EDT</td><td></td><td> </td> 12/26/2020 06:18:00 AM EDT [facility] BASIC METABOLIC PANEL CALCIUM TOTAL <td>BASIC METABOLI C PANEL</td><td>Routine</td><td>12/26/2020 6:18 AM EDT</td><td></td><td> </td> 12/26/2020 06:18:00 AM EDT [facility] ANGIOGRAPHY EXTREMITY UNILATERAL RS&I <td>IR IS ARTERI OGRAM EXTREMITY SINGLE LEFT</td><td>Routine</td><td>12/25/2020 12:36 PM EDT</td><td></td><td> </td> 12/25/2020 12:36:59 PM EDT [facility] THROMBOPLASTIN TIME PARTIAL PLASMA/WHOLE BLOOD <td>APTT</td><td>STAT</td><td>12/25/2020 2:17 AM EDT</td><td></td><td> </td> 12/25/2020 02:17:00 AM EDT [facility] BLOOD COUNT COMPLETE AUTOMATED <td>CBC</td><td>Routine </td><td>12/25/2020 2:17 AM EDT</td><td></td><td> </td> 12/25/2020 02:17:00 AM EDT [facility] BASIC METABOLIC PANEL CALCIUM TOTAL <td>BASIC METABOLI C PANEL</td><td>Routine</td><td>12/25/2020 2:17 AM EDT</td><td></td><td> </td> 12/25/2020 02:17:00 AM EDT [facility] Fem-Pop Angioplasty/Stent 12/25/2020 12:00:00 AM EDT [facility] ([facility]) Angiography-Extremity Unilateral 12/25/2020 12:00:00 A M EDT [facility] ([facility]) Moderate Sedation Services; Same Phys Intl 15 Mins; PT >= 5 Years 12/25/2020 12:00:00 AM EDT [facility] ([facility]) THROMBOPLASTIN TIME PARTIAL PLASMA/WHOLE BLOOD <td>APTT</td><td>STAT</td><td>12/24/2020 11:29 PM EDT</td><td></td><td> </td> 12/24/2020 11:29:00 PM EDT [facility] NT PRO BNP <td>NT PRO BNP</td><td>Routi ne</td><td>12/24/2020 12:01 PM EDT</td><td></td><td> </td> 12/24/2020 12:01:00 PM EDT [facility] THROMBOPLASTIN TIME PARTIAL PLASMA/WHOLE BLOOD <td>APTT</td><td>Routine</td><td>12/24/2020 12:01 PM EDT</td><td></td><td> </td> 12/24/2020 12:01:00 PM EDT [facility] PROTHROMBIN TIME <td>PROTIME-INR</td><td>Rout ine</td><td>12/24/2020 12:01 PM EDT</td><td></td><td> </td> 12/24/2020 12:01:00 PM EDT [facility] BLOOD COUNT COMPLETE AUTOMATED <td>CBC</td><td>STAT</t d><td>12/24/2020 12:01 PM EDT</td><td></td><td> </td> 12/24/2020 12:01:00 PM EDT [facility] BLOOD TYPING ABO <td>TYPE AND SCREEN</td><td> Routine</td><td>12/24/2020 12:01 PM EDT</td><td></td><td> </td> 12/24/2020 12:01:00 PM EDT [facility] COMPREHENSIVE METABOLIC PANEL <td>COMPREHENSIVE METABO LIC PANEL</td><td>STAT</td><td>12/24/2020 12:01 PM EDT</td><td></td><td> </td> 12/24/2020 12:01:00 PM EDT [facility] COVID/FLU AB/RSV PCR <td>COVID/FLU AB/RSV PCR</td ><td>STAT</td><td>12/24/2020 11:06 AM EDT</td><td></td><td> </td> 12/24/2020 11:06:00 AM EDT [facility] EAR IRRIGATION 12/21/2020 12:00:00 AM EDT [facility] DUP-SCAN LXTR ART/ARTL BPGS UNI/LMTD STUDY 12/17/2020 12:00:00 AM EDT [facility] ([facility]) DUP-SCAN LXTR ART/ARTL BPGS UNI/LMTD STUDY 12/17/2020 12:00:00 AM EDT [facility] ([facility]) BLOOD COUNT COMPLETE AUTOMATED <td>CBC</td><td>Timed</ td><td>10/21/2020 6:20 AM EDT</td><td></td><td> </td> 10/21/2020 10:20:00 AM EDT [facility] BASIC METABOLIC PANEL CALCIUM TOTAL <td>BASIC METABOLI C PANEL</td><td>Routine</td><td>10/21/2020 6:20 AM EDT</td><td></td><td> </td> 10/21/2020 10:20:00 AM EDT [facility] TRANSFUSE PLATELETS <td>TRANSFUSE PLATELETS</td> <td>Routine</td><td>10/20/2020 1:02 PM EDT</td><td></td><td></td> 10/20/2020 05:02:33 PM EDT [facility] TRANSFUSE RED BLOOD CELLS <td>TRANSFUSE RED BLOOD CELLS</td><td>Routine</td><td>10/20/2020 11:23 AM EDT</td><td></td><td></td> 10/20/2020 03:23:43 PM EDT [facility] PREPARE PLATELETS <td>PREPARE PLATELETS</td><t d>STAT</td><td>10/20/2020 11:10 AM EDT</td><td></td><td> </td> 10/20/2020 03:10:00 PM EDT [facility] CREATION, BYPASS, ARTERIAL, FEMORAL TO TIBIAL <td>CREA TION, BYPASS, ARTERIAL, FEMORAL TO TIBIAL</td><td></td><td>10/20/2020 8:25 AM EDT</td><td> ISCHEMIC LEFT LEG</td><td></td> 10/20/2020 12:25:00 PM EDT - 10/20/2020 04:23:00 PM EDT [facility] GLUC BLD GLUC MNTR DEV CLEARED FDA SPEC HOME USE <td>P OCT GLUCOSE</td><td>Routine</td><td>10/20/2020 6:44 AM EDT</td><td></td><td> </td> 10/20/2020 10:44:00 AM EDT [facility] BLOOD TYPING ABO <td>TYPE AND SCREEN</td><td> Routine</td><td>10/19/2020 8:59 PM EDT</td><td></td><td> </td> 10/20/2020 12:59:00 AM EDT [facility] THROMBOPLASTIN TIME PARTIAL PLASMA/WHOLE BLOOD <td>APTT</td><td>Routine</td><td>10/19/2020 8:58 PM EDT</td><td></td><td> </td> 10/20/2020 12:58:00 AM EDT [facility] PROTHROMBIN TIME <td>PROTIME-INR</td><td>Rout ine</td><td>10/19/2020 8:58 PM EDT</td><td></td><td> </td> 10/20/2020 12:58:00 AM EDT [facility] BLOOD COUNT COMPLETE AUTOMATED <td>CBC</td><td>Routine </td><td>10/19/2020 8:58 PM EDT</td><td></td><td> </td> 10/20/2020 12:58:00 AM EDT [facility] MAGNESIUM <td>MAGNESIUM</td><td>Routin e</td><td>10/19/2020 8:58 PM EDT</td><td></td><td> </td> 10/20/2020 12:58:00 AM EDT [facility] COMPREHENSIVE METABOLIC PANEL <td>COMPREHENSIVE METABO LIC PANEL</td><td>Routine</td><td>10/19/2020 8:58 PM EDT</td><td></td><td> </td> 10/20/2020 12:58:00 AM EDT [facility] Bypass Graft Other Than Vein Femoral-Popliteal 021 12:00:00 AM EDT [facility] ([facility]) Reoperation Distal Vessels > 1 Mo After Orig SX 2020 12:00:00 AM EDT [facility] ([facility]) COVID/FLU AB/RSV PCR <td>COVID/FLU AB/RSV PCR</td ><td>STAT</td><td>10/19/2020 12:31 PM EDT</td><td></td><td> </td> 10/19/2020 04:31:00 PM EDT [facility] ECG ROUTINE ECG W/LEAST 12 LDS TRCG ONLY W/O I&R <td>E CG 12- LEAD</td><td>Routine</td><td>10/19/2020 12:10 PM EDT</td><td></td><td></td> 10/19/2020 04:10:47 PM EDT [facility] DUP-SCAN LXTR ART/ARTL BPGS UNI/LMTD STUDY 10/01/2020 12:00:00 AM EST [facility] ([facility]) DUP-SCAN LXTR ART/ARTL BPGS UNI/LMTD STUDY 10/01/2020 12:00:00 AM EST [facility] ([facility]) Spirometry 08/11/2020 12:00:00 AM EST [facility] ([facility], ) DUP-SCAN LXTR ART/ARTL BPGS UNI/LMTD STUDY 07/08/2020 12:00:00 AM EST [facility] ([facility]) DUP-SCAN LXTR ART/ARTL BPGS UNI/LMTD STUDY 07/08/2020 12:00:00 AM EST [facility] ([facility]) BLOOD COUNT COMPLETE AUTOMATED <td>CBC</td><td>Timed</ td><td>05/01/2020 6:30 AM EDT</td><td></td><td> </td> 05/01/2020 10:30:00 AM EDT [facility] BASIC METABOLIC PANEL CALCIUM TOTAL <td>BASIC METABOLI C PANEL</td><td>Timed</td><td>05/01/2020 6:30 AM EDT</td><td></td><td> </td> 05/01/2020 10:30:00 AM EDT [facility] BLOOD COUNT COMPLETE AUTOMATED <td>CBC</td><td>Timed</ td><td>04/30/2020 6:08 AM EDT</td><td></td><td> </td> 04/30/2020 10:08:00 AM EDT [facility] BASIC METABOLIC PANEL CALCIUM TOTAL <td>BASIC METABOLI C PANEL</td><td>Timed</td><td>04/30/2020 6:08 AM EDT</td><td></td><td> </td> 04/30/2020 10:08:00 AM EDT [facility] COMPREHENSIVE METABOLIC PANEL <td>COMPREHENSIVE METABO LIC PANEL</td><td>Routine</td><td>04/29/2020 6:05 AM EDT</td><td></td><td> </td> 04/29/2020 10:05:00 AM EDT [facility] POC ARTERIAL BLOOD GAS W LYTES <td>POC ARTERIAL BLOOD GAS W LYTES</td><td>Routine</td><td>04/28/2020 11:37 AM EDT</td><td></td><td> </td> 04/28/2020 03:37:00 PM EDT [facility] FLUOROSCOPY SPX <1 HOUR PHYSICIAN TIME <td>XR FLUORO U P TO 1 HR</td><td>Routine</td><td>04/28/2020 10:39 AM EDT</td><td></td><td> </td> 04/28/2020 02:39:27 PM EDT [facility] BYP OTH/THN VEIN FEMORAL-POPLITEAL <td>CREATION, BYPAS S, ARTERIAL, FEMORAL TO POPLITEAL, USING GRAFT</td><td></td><td>04/28/2020 7:58 AM EDT</td><td> 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, left leg</td><td></td> 04/28/2020 11:58:00 AM EDT - 04/28/2020 03:13:00 PM ED T 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, left leg [facility] Atherosclerosis of makah arteries of ex tremities with rest pain, left leg GLUC BLD GLUC MNTR DEV CLEARED FDA SPEC HOME USE <td>P OCT GLUCOSE</td><td>Routine</td><td>04/28/2020 6:50 AM EDT</td><td></td><td> </td> 04/28/2020 10:50:00 AM EDT [facility] BLOOD TYPING ABO <td>PREPARE RBC</td><td>Rout ine</td><td>04/28/2020 12:01 AM EDT</td><td></td><td> </td> 04/28/2020 04:01:00 AM EDT [facility] Bypass Graft Other Than Vein Femoral-Popliteal 020 12:00:00 AM EDT [facility] ([facility]) PROTHROMBIN TIME <td>PROTIME-INR</td><td>Rout ine</td><td>04/23/2020 11:20 AM EDT</td><td> 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, left leg</td><td> </td> 04/23/2020 03:20:00 PM EDT Atherosclerosis of makah arteries of ex tremities with rest pain, left leg [facility] Atherosclerosis of makah arteries of ex tremities with rest pain, left leg BLOOD COUNT COMPLETE AUTOMATED <td>CBC</td><td>Routine </td><td>04/23/2020 11:20 AM EDT</td><td> 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, left leg</td><td> </td> 04/23/2020 03:20:00 PM EDT Atherosclerosis of makah arteries of ex tremities with rest pain, left leg [facility] Atherosclerosis of makah arteries of ex tremities with rest pain, left leg BLOOD TYPING ABO <td>TYPE AND SCREEN</td><td> Routine</td><td>04/23/2020 11:20 AM EDT</td><td> 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, left leg</td><td> </td> 04/23/2020 03:20:00 PM EDT Atherosclerosis of makah arteries of ex tremities with rest pain, left leg [facility] Atherosclerosis of makah arteries of ex tremities with rest pain, left leg COMPREHENSIVE METABOLIC PANEL <td>COMPREHENSIVE METABO LIC PANEL</td><td>Routine</td><td>04/23/2020 11:20 AM EDT</td><td> 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, left leg</td><td> </td> 04/23/2020 03:20:00 PM EDT Atherosclerosis of makah arteries of ex tremities with rest pain, left leg [facility] Atherosclerosis of makah arteries of ex tremities with rest pain, left leg ECG ROUTINE ECG W/LEAST 12 LDS TRCG ONLY W/O I&R <td>E CG 12- LEAD</td><td>Routine</td><td>04/23/2020 11:13 AM EDT</td><td> 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 [facility] INFORMATIONPatient MRN Name Date of Age Gend*PT [id number] Nguyen Ibarra 1935 85 years F IPPT Location Admission Date/Time Visit ID Attending [id number] 03/10/21 1400 --- --- EPI ID CSN Admitting Provider [id number] Isabella Sparrow MD([id number]) [place] [address] OPERATIVE REPORT OPNAME: NGUYEN IBARRA#: [id number] #: [id number] ADMISSION DATE: 03/10/2021OB: 1935 SEX: F PT TYPE: I VascACCT #: [id number] CARE PHYSICIAN: HUGH FINNTE OF OPERATION: 03/11/2021REOPERATIVE [...] present throughout the case.REINA Benavides/NTS Job #: [id number] DOC #: [id number]: Primary Care Physician and Consultants Name Value Range Interpretation Code Description Data Lavinia rce(s) Supporting Document(s) ID Date Data Source [id number] 03/18/2021 05:21:[address] [facility] INFORMATIONPatient MRN Name Date of Age Gend*PT [id number] Nguyen Ibarra 1935 85 years F IPPT Location Admission Date/Time Visit ID Attending [id number] 03/10/21 1400 --- --- EPI ID CSN Admitting Provider [id number] Isabella Sparrow MD([id number]) Attestation signed by Isabella Sparrow MD at 03/18/2021 5:21 PMI saw and evaluated the patient and reviewed note. I agree with the history,physical and medical decision makingSignature: HANG Hongate: March 18, 2021Time: 5:21 PM --Surgical Discharge Summarymauricio IbarraN: [id number] date: dmitting Physician: HANG Hongischarge date and [...] constipationSpiriva Respimat 2.5 MCG/ACT AersGeneric drug: Tiotropium [place] Monohydrate Inhale 1 puff daily03/18TYLENOL PM EXTRA STRENGTH PO Take 1 tablet by mouth nightly as needed (for sleep)STOP taking these medicationsHYDROcodone-acetaminophen 5-325 MG per tabletCommonly known as: NORCOWhere to Get Your MedicationsThese medications were sent to [facility] [place], [place] - [address] [address] [facility] [address] [place] [address] Biopatch (Dressing) Misc heparin 100 UNIT/ML Soln meropenem 1 g injection Saline Flush 0.9 % SolnThese medications were sent to [facility] [address], [place] - [facility] [address] [facility] [address], [facility] [address] oxyCODONE-acetaminophen 5-325 MG per tabletIndication for Admission: [...] Complications: [facility], blood cultures and wound cultures [...] and shewould follow-up with outpatient urology in [place] .ADDENDUM at 10:18 AM: Patient was able [...] administer theafternoon dose. I spoke to the [facility] on the evening of 03/17/2021 to postpone herSOC which was originally 0800 on 03/18/2021 and explained the delay. [facility] nursingappreciated the update.Past Medical History:Past Medical History:Diagnosis Date Acute on chronic diastolic congestive heart failure 11/03/2016 Advanced Airway Equipment Used Elective for teaching Anemia Carotid artery occlusion COPD (chronic obstructive pulmonary disease) 11/03/2016 uses 2L oxygen at night Coronary artery disease f/u by Dr. 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 Haines on 04/14/2021 at 2:30 PM.-Weekly labs to be drawn by home care services CBC, CMP, ESR, CRP to be sent toinfectious [id number] with Dr. Sparrow (vascular surgeon ) on 04/05/2021 at 1 PM- Follow up with outpatient urology ([facility]) if you continue to haveissues with urinary retention or not sufficiently emptying bladder voiding.Address: [address] [place], [place] [address]Phone: Discharged Condition:goodDisposition: Home or Self CareSignature: Eduardo Conn PADate: March 18, 2021Time: 8:47 AM Name Value Range Interpretation Code Description Data Lavinia rce(s) Supporting Document(s) ID Date Data Source [id number] 03/18/2021 09:57:00 AM EDT [facility] ([facility]) Name Value Range Interpretation Code Description Data [facility] Supporting Document(s) Sodium [Moles/volume] in Serum or [...] for medication dosing. ID Date Data Source [id number] 03/18/2021 09:37:00 AM EDT [facility] ([facility]) Name Value Range Interpretation Code Description Data Lavinia rce(s) Supporting Document(s) Leukocytes [#/volume] in Blood by Automated count 6.7 10*3/uL 4.10-11 .00 [facility] ([facility]) Erythrocytes [#/volume] in Blood by Automated count 2.76 10*6/uL 4.00 -5.40 [facility] ([facility]) Hemoglobin [Mass/volume] in Blood 8.3 g/dL 12.0-16.0 [facility] ([facility]) Erythrocyte mean corpuscular volume [Entitic volume] by Auto mated count 91.4 fL 80.0-95.0 [facility] ([facility] ) Hematocrit [Volume Fraction] of Blood by Automated count 25.2 % 3 6.00-47.00 [facility] ([facility]) Erythrocyte mean corpuscular hemoglobin concentration [Mass/volume] by Automated count 32.8 g/dL 32-36 [facility] ([facility]) Erythrocyte mean corpuscular hemoglobin [Entitic mass] by Automated count 29.9 pg 27.0-32.0 [facility] ([facility]) Platelets [#/volume] in Blood by Automated count 261 10*3/uL 150-450 [facility] ([facility]) Erythrocyte distribution width [Ratio] by Automated count 13.7 % 10.5-14.5 [facility] ([facility]) Platelet mean volume [Entitic volume] in Blood by Gui 7.5 fL 7.1-10.7 [facility] ([facility]) ID Date Data Source [id number] 03/18/2021 05:58:11 AM EDT [facility] [place] Name Value Range Interpretation Code Description Data Lavinia rce(s) Supporting Document(s) SODIUM 141 mmol/L (136-145) [facility] [place] POTASSIUM 4.0 mmol/L (3.6-5.2) [facility] CHLORIDE 106 mmol/L (100-108) [facility] CO2 32 mmol/L (22-31) H [facility] ANION GAP 3 mmol/L (7-16) L [facility] [place] [place] [facility] UREA NITROGEN 16 mg/dL (7-24) [facility] CREATININE 0.65 mg/dL (0.60-1.00) [facility] BUN/CREAT RATIO 24.6 RATIO (10.0-20.0) H [facility] GLUCOSE 89 mg/dL (70-99) [facility] CALCIUM 8.1 mg/dL (8.4-10.2) L [facility] GFR >60 ml/min/1.73m2 (>59) [facility] GFR ( AMER) >60 ml/min/1.73m2 (>59) [facility] GFR INTERPRETATION [facility] --NORMAL KIDNEY FUNCTION OR MILD DISEASE - GFR >OR= 60CHRONIC KIDNEY DISEASE - GFR 15 - 59RENAL FAILURE - GFR <15 Est. GFR calculation based on the MDRDstudy equation, which assumes a steadystate for creatinine. Est. GFR should notbe used for medication dosing. ID Date Data Source [id number] 03/18/2021 05:38:26 AM EDT [facility] Name Value Range Interpretation Code Description Data Lavinia rce(s) Supporting Document(s) WBC 6.7 10*3/uL (4.1-11.0) [facility] [place] [facility] [place] RBC 2.76 10*6/uL (4.00-5.40) L [facility] [place] [place] [facility] HGB 8.3 g/dL (12.0-16.0) L [facility] [place] [place] [facility] HCT 25.2 % (36.0-47.0) L [facility] [place] [place] [facility] MCV 91.4 fL (80.0-95.0) [facility] MCH 29.9 pg (27.0-32.0) [facility] MCHC 32.8 g/dL (32.0-36.0) [facility] RDW 13.7 % (10.5-14.5) [facility] PLT 261 10*3/uL (150-450) [facility] MPV 7.5 fL (7.1-10.7) [facility] ID Date Data Source [id number] 03/17/2021 12:45:13 PM EDT [facility] NT INFORMATIONPatient MRN Name Date of Age Gend*PT [id number] Nguyen Ibarra 1935 85 years F IPPT Location Admission Date/Time Visit ID Attending [id number] 03/10/21 1400 --- Tamera Hong([id number]) EPI ID CSN Admitting Provider [id number] Isabella Sparrow MD([id number]) Attestation signed by Isabella Sparrow MD at 03/17/2021 12:45 PMI agree with the procedure documentationSignature: HANG Hongate: March 17, 2021Time: 12:44 PM --WOUND VAC NOTEVascular Surgery Clinical AffiliateFollow up on 03/17/21 at 12:23 PMPATIENT NAME: Nguyen IbarraN: [id number]: 1935 85 yearsPOD: 6 Days Post-Op S/P [...] discharge, no bone exposed, no malodor. Wound uvjsyrqd0sd x 2cm x 2cm with 4cm tunnel to 9'oclock. Surrounding tissue is withouterythema, skin edges pink without necrosis. 1 piece of black foam measured andplaced in wound bed. Adhesive drape and TRAC pad applied. Wound vac therapyresumed at 125 mmHg continuous with excellent seal achieved. Patient toleratedprocedure well. Home wound vac initiated.Next dressing change planned for Monday03/19/2021 at home with regular dressingchanges on [facility] by [facility].Contact Vascular Surgery PA/MIXING ROLL OPERATOR at [phone] for questions or concerns. In theevent of wound vac malfunction, use a 0.9% Normal Saline wet-to-dry dressinguntil wound vac dressing can be replaced.03/17/2021 LEFT groin wound (photo taken with patients verbal consent)Signature: OJJO Khan , PA-CDate: March 17, 2021Time: 12:23 PM Name Value Range Interpretation Code Description Data Lavinia rce(s) Supporting Document(s) ID Date Data Source [id number] 03/16/2021 05:11:00 PM EDT [facility] Name Value Range Interpretation Code Description Data Lavinia rce(s) Supporting Document(s) Magnesium [Mass/volume] in Serum or Plasma 2.2 mg/dL 1.7-2.4 [facility] ([facility]) ID Date Data Source [id number] 03/16/2021 12:52:00 PM EDT [facility] ([facility] [...] [facility]) ID Date Data Source [id number] 03/16/2021 01:12:20 PM EDT [facility] Name Value Range Interpretation Code Description Data Lavinia rce(s) Supporting Document(s) MAGNESIUM 2.2 mg/dL (1.7-2.4) [facility] ID Date Data Source [id number] 03/16/2021 01:12:20 PM EDT [facility] Name Value Range Interpretation Code Description Data Lavinia rce(s) Supporting Document(s) SODIUM 141 mmol/L (136-145) [facility] POTASSIUM 4.7 mmol/L (3.6-5.2) [facility] CHLORIDE 107 mmol/L (100-108) [facility] CO2 27 mmol/L (22-31) [facility] ANION GAP 7 mmol/L (7-16) [facility] UREA NITROGEN 15 mg/dL (7-24) [facility] CREATININE 0.68 mg/dL (0.60-1.00) [facility] BUN/CREAT RATIO 22.1 RATIO (10.0-20.0) H [facility] GLUCOSE 86 mg/dL (70-99) [facility] CALCIUM 8.4 mg/dL (8.4-10.2) [facility] GFR >60 ml/min/1.73m2 (>59) [facility] GFR ( AMER) >60 ml/min/1.73m2 (>59) [facility] GFR INTERPRETATION [facility] --NORMAL KIDNEY FUNCTION OR MILD DISEASE - GFR >OR= 60CHRONIC KIDNEY DISEASE - GFR 15 - 59RENAL FAILURE - GFR <15 Est. GFR calculation based on the MDRDstudy equation, which assumes a steadystate for creatinine. Est. GFR should notbe used for medication dosing. ID Date Data Source [id number] 03/16/2021 12:48:49 PM EDT [facility] Name Value Range Interpretation Code Description Data Lavinia rce(s) Supporting Document(s) WBC 8.4 10*3/uL (4.1-11.0) [facility] [place] [facility] [place] RBC 3.05 10*6/uL (4.00-5.40) L [facility] [place] [place] [facility] HGB 9.2 g/dL (12.0-16.0) L [facility] [place] [place] [facility] HCT 27.6 % (36.0-47.0) L [facility] MCV 90.6 fL (80.0-95.0) [facility] MCH 30.2 pg (27.0-32.0) [facility] MCHC 33.3 g/dL (32.0-36.0) [facility] RDW 13.9 % (10.5-14.5) [facility] PLT 244 10*3/uL (150-450) [facility] MPV 7.9 fL (7.1-10.7) [facility] ID Date Data Source [id number] 03/15/2021 10:20:[address] [facility] NT INFORMATIONPatient MRN Name Date of Age Gend*PT [id number] Nguyen Ibarra 1935 85 years F IPPT Location Admission Date/Time Visit ID Attending [id number] 03/10/21 1400 --- Isabella Sparrow MD([id number]) EPI ID CSN Admitting Provider [id number] Isabella Sparrow MD([id number]) Attestation signed by Isabella Sparrow MD at [...] deep into the wound bed. Attached to [id number].Patient tolerated procedure well with minimal discomfort. She was actuallyquite pleasantly surprised at how painless it was, despite not receivingfentanyl prior.Media InformationDocument InformationMisc Administration: Patient PhotoLeft groin03/14/2021 17:33Attached To:Hospital Encounter on 03/10/21SourcJOJO Xavier | [facility] D4 Cardiovascular Surgery Unit Name Value Range Interpretation Code Description Data Lavinia rcfrida(s) Supporting Document(s) ID Date Data Source [id number] 03/15/2021 07:47:34 AM EDT [facility] [place] Name Value Range Interpretation Code Description Data Lavinia rce(s) Supporting Document(s) SODIUM 140 mmol/L (136-145) [facility] [place] [facility] POTASSIUM 3.8 mmol/L (3.6-5.2) [facility] [place] [place] [facility] CHLORIDE 104 mmol/L (100-108) [facility] [place] [facility] CO2 31 mmol/L (22-31) [facility] ANION GAP 5 mmol/L (7-16) L [facility] [place] [facility] UREA NITROGEN 11 mg/dL (7-24) [facility] CREATININE 0.58 mg/dL (0.60-1.00) L [facility] [place] [facility] BUN/CREAT RATIO 19.0 RATIO (10.0-20.0) [facility] GLUCOSE 145 mg/dL (70-99) H [facility] [place] [facility] CALCIUM 8.0 mg/dL (8.4-10.2) L [facility] [place] [facility] GFR >60 ml/min/1.73m2 (>59) [facility] [place] GFR ( AMER) >60 ml/min/1.73m2 (>59) [facility] [place] GFR INTERPRETATION [facility] --NORMAL KIDNEY FUNCTION OR MILD DISEASE - GFR >OR= 60CHRONIC KIDNEY DISEASE - GFR 15 - 59RENAL FAILURE - GFR <15 Est. GFR calculation based on the MDRDstudy equation, which assumes a steadystate for creatinine. Est. GFR should notbe used for medication dosing. ID Date Data Source [id number] 03/15/2021 07:04:32 AM EDT [facility] Name Value Range Interpretation Code Description Data Lavinia rce(s) Supporting Document(s) WBC 6.6 10*3/uL (4.1-11.0) [facility] [place] [facility] [place] RBC 2.76 10*6/uL (4.00-5.40) L [facility] [place] [facility] HGB 8.3 g/dL (12.0-16.0) L [facility] [place] [facility] HCT 25.2 % (36.0-47.0) L [facility] [place] [facility] MCV 91.5 fL (80.0-95.0) [facility] MCH 30.3 pg (27.0-32.0) [facility] MCHC 33.1 g/dL (32.0-36.0) [facility] RDW 13.9 % (10.5-14.5) [facility] PLT 184 10*3/uL (150-450) [facility] MPV 7.7 fL (7.1-10.7) [facility] ID Date Data Source [id number] 03/14/2021 07:22:00 PM EDT [facility] ([facility] Name Value Range Interpretation Code Description Data Lavinia rce(s) Supporting Document(s) Vancomycin [Mass/volume] in Serum or Plasma --trough 9.9 ug/mL 10.0- 20.0 [facility]) ID Date Data Source [id number] 03/14/2021 03:22:35 PM EDT [facility] Name Value Range Interpretation Code Description Data Lavinia rce(s) Supporting Document(s) VANCOMYCIN TROUGH 9.9 ug/mL (10.0-20.0) L [facility] ID Date Data Source [id number] 03/14/2021 09:39:43 AM EDT [facility] Name Value Range Interpretation Code Description Data Lavinia rce(s) Supporting Document(s) WBC 7.8 10*3/uL (4.1-11.0) [facility] [place] [facility] [place] RBC 2.79 10*6/uL (4.00-5.40) L [facility] [place] [facility] HGB 8.4 g/dL (12.0-16.0) L [facility] [place] [facility] HCT 25.2 % (36.0-47.0) L [facility] [place] [facility] MCV 90.4 fL (80.0-95.0) [facility] [place] MCH 30.2 pg (27.0-32.0) [facility] [place] [facility] MCHC 33.4 g/dL (32.0-36.0) [facility] [place] [facility] RDW 13.8 % (10.5-14.5) [facility] [place] [facility] PLT 165 10*3/uL (150-450) [facility] [place] [facility] MPV 8.5 fL (7.1-10.7) [facility] ID Date Data Source [id number] 03/14/2021 09:27:46 AM EDT [facility] Name Value Range Interpretation Code Description Data Lavinia rce(s) Supporting Document(s) SODIUM 141 mmol/L (136-145) [facility] [place] [facility] POTASSIUM 4.1 mmol/L (3.6-5.2) [facility] [place] [facility] CHLORIDE 105 mmol/L (100-108) [facility] [place] [facility] CO2 30 mmol/L (22-31) [facility] [place] ANION GAP 6 mmol/L (7-16) L [facility] [place] [facility] UREA NITROGEN 12 mg/dL (7-24) [facility] [place] [facility] CREATININE 0.58 mg/dL (0.60-1.00) L [facility] [place] [facility] BUN/CREAT RATIO 20.7 RATIO (10.0-20.0) H [facility] GLUCOSE 112 mg/dL (70-99) H [facility] [place] [facility] CALCIUM 8.0 mg/dL (8.4-10.2) L [facility] [place] [facility] GFR >60 ml/min/1.73m2 (>59) [facility] [place] GFR ( AMER) >60 ml/min/1.73m2 (>59) [facility] [place] GFR INTERPRETATION [facility] --NORMAL KIDNEY FUNCTION OR MILD DISEASE - GFR >OR= 60CHRONIC KIDNEY DISEASE - GFR 15 - 59RENAL FAILURE - GFR <15 Est. GFR calculation based on the MDRDstudy equation, which assumes a steadystate for creatinine. Est. GFR should notbe used for medication dosing. ID Date Data Source [id number] 03/13/2021 08:50:00 PM EDT [facility] ([facility]) Name Value Range Interpretation Code Description Data Lavinia rce(s) Supporting Document(s) Specimen Description Laboratory test result [facility] ([facility]) Special Requests Laboratory test result [facility] ([facility]) Microscopic observation [Identifier] in Unspecified sp ecimen by Gram stain Laboratory test result [facility] ([facility]) Moderate (10 To 25/LPF) White Blood Cell srare (<1/LPF) Epithelial Cellsno Bacteria Laboratory test finding (navigational concept) Laboratory test result [facility] ([facility]) Report Status Laboratory test result [facility] ([facility]) ID Date Data Source [id number] 03/13/2021 08:50:00 PM EDT [facility]) Name Value Range Interpretation Code Description Data Lavinia rce(s) Supporting Document(s) Special Requests Laboratory test result [facility] ([facility]) Laboratory test finding (navigational concept) Laboratory test result [facility] ([facility]) Specimen Description Laboratory test result [facility] ([facility]) Report Status Laboratory test result [facility] ([facility]) ID Date Data Source [id number] 03/12/2021 10:52:00 PM EDT [facility] ([facility]) Name Value Range Interpretation Code Description Data Lavinia rce(s) Supporting Document(s) Hemoglobin [Mass/volume] in Blood 9.9 g/dL 12.0-16.0 [facility] ([facility]) Hematocrit [Volume Fraction] of Blood by Automated count 29.1 % 3 6.00-47.00 [facility] ([facility]) ID Date Data Source [id number] 03/12/2021 09:53:[address] [facility] INFORMATIONPatient MRN Name Date of Age Gend*PT [id number] Nguyen Ibarra 1935 85 years F IPPT Location Admission Date/Time Visit ID Attending [id number] 03/10/21 1400 --- Tamera Hong([id number]) EPI ID CSN Admitting Provider [id number] Isabella Sparrow MD([id number])Infectious Disease ConsultationDate of admission; 1Date: 1Reason for [...] old female with multiplemedical problems including PAD, [place], legally blind.When readmitted 03/09, Vascular Surgery JOJO [...] PFA/SFA endarterectomy with Xenosure patch angioplasty leftEIA, CREAM HAULER, PFA and SFA in March 2019. She [...] PRBC was planned WBC 16.9 HGB 9.2-8.6 [id number]/, T max 100.2 20;17 pm WBC 14.2 HGB 9.5 PLT 156 na 141 K 4.3 Cl 106 Co2 [id number] cr 0.74 Glu 123 Vancomycin trough 4.1 [...] 40 mg daily. 5. Pain management/ Neuropathy -[place] and Neurontin.-Patient is somewhat resistant to pain [...] bed for meals.A- Ambulate three times daily.B- [place] teeth four times daily.I- Incentive spirometry.T- Teach patient expectations Will discuss with Isabella Sparrow MD and/or Covering Attending MD" Then the case was discussed with me. Meropenem use was approved. Formal IDconsult requested.The pt complains of L groin pain. She notes she is [place] and legally bl ind. Past Medical History:Diagnosis Date Acute on chronic diastolic congestive heart failure 11/03/2016 Advanced Airway Equipment Used Elective for teaching Anemia Carotid artery occlusion COPD (chronic obstructive pulmonary disease) 11/03/2016 uses 2L oxygen at night Coronary artery disease f/u by Dr. Metzger GERD (gastroesophageal reflux disease) Heart valve disease Hiatal hernia History of GI bleed [place] (hard of hearing) Hyperlipidemia Hypertension Macular degeneration [...] old Vancomycin Itching Received in 2017 at [facility] and 1 dose here -- no [...] neededfor constipation 01/29/21 Yes Larisa Llanes, PATiotropium [place] Monohydrate (Spiriva Respimat) 2.5 MCG/ACT AERS Inhale [...] High school graduateOccupational History Worked for the [employer], now retiredTobacco Use Smoking status: Former Smoker [...] Social Gatherings with Friends and Family: Attends [employer] Services: Active Member of Clubs or Organizations: [...] .General Appearance: Pleasant, cooperative, alert and oriented [id number]:[place] Head: NormocephalicEyes: tracking to my voiceMouth: No [...] Procedure Component Value Units Date/Time Wound culture [[id number]] Collected: 03/10/21 1630 Order Status: Completed Specimen: Non-Surg Soft Tissue Swab Updated: Specimen Description NON-SURG SOFT TISSUE SWAB LEFT GROIN Special Requests NONE Gram Stain Result MODERATE (10 TO 25/LPF) WHITE BLOOD CELLSFEW (<10/LPF) EPITHELIAL CELLSNO BACTERIA Culture Result NO GROWTH Report Status 03/12/2021 FINAL Narrative: LEFT GROIN Blood Culture Peripheral x 1 Set (2 bottles aerobic and anaerobic) [[id number]]Collect ed: 03/10/21 1535 Order Status: Completed Specimen: Peripheral Updated: 03/12/21 101 Specimen Description PERIPHERAL Special Requests NONE Culture Result NO GROWTH 2 DAYS Report Status PENDING Blood Culture Peripheral x 1 Set (2 bottles aerobic and anaerobic) [[id number]]Collected: 03/10/21 1535 Order Status: Completed Specimen: Peripheral Updated: 03/12/21 101 Specimen Description PERIPHERAL Special Requests NONE Culture Result NO GROWTH 2 DAYS Report Status PENDING Anaerobic culture [[id number]] Collected: 03/11/21 1430 Order Status: Completed Specimen: Non-Surg Soft Tissue Swab Updated: Specimen Description NON-SURG SOFT TISSUE SWAB L GROIN WOUND Special Requests NONE Culture Result TO FOLLOW Report Status PENDING Wound culture [[id number]] Collected: 03/11/21 1430 Order Status: Completed Updated: 03/12/21 0829 Specimen Description LEFT GROIN WOUND Special Requests NONE Gram Stain Result MODERATE (10 TO 25/LPF) WHITE BLOOD CELLSRARE (<1/LPF) EPITHELIAL CELLSNO ALYSSA TERIA Culture Result NO GROWTH 1 DAY Report Status PENDING Aerobic Fluid Culture / GS [[id number]] Collected: 03/11/21 1430 Order Status: Completed Specimen: Non-Surg Soft Tissue Swab Updated: Specimen Description NON-SURG SOFT TISSUE SWAB L GROIN WOUND Special Requests NONE Gram Stain Result NOT DONE Culture Result TEST(S) PROCESSED UNDER NEW ENTRY PLEASE SEE [facility] [id number]. [id number]. Report Status 03/11/2021 FINAL Fungal culture, non blood [[id number]] Collected: 03/11/21 1430 Order Status: No result Specimen: Non-Surg Soft Tissue Swab Updated: AFB Smear+Culture [[id number]] Collected: 03/11/21 1430 Order Status: No result Updated: 03/11/21 1932 Anaerobic culture [[id number]] Collected: 03/10/21 1630 Order Status: Completed Specimen: Wound from Non-Surg Soft Tissue Swab Updated:03/11/21 1221 Specimen Description WOUND LEFT GROIN Special Requests NONE Culture Result TO FOLLOW Report Status PENDING Narrative: LEFT GROIN MRSA nasal screen by PCR [[id number]] Collected: 03/10/21 1645 Order Status: Completed Specimen: Nares Updated: 03/11/21 0926 SPECIMEN DESCRIPTION NARES MRSA by PCR NEGATIVE Narrative: NARES/GROIN/UMBILICAL FOR NICU PATIENTS ONLY COVID/FLU AB/RSV PCR [[id number]] Collected: 03/10/21 1655 Order Status: Completed Specimen: Swab from Nasopharyngeal Updated: SPECIMEN DESCRIPTION NASOPHARYNGEAL Influenza A NEGATIVE Influenza B NEGATIVE RSV NEGATIVE Comment SEE NOTES Comment: SEE NOTE:THE U.S. FDA HAS MADE THIS TEST AVAILABLEUNDER AN EMERGENCY USE AUTHORIZATION(EUA) FOR THE DETECTION AND/OR DIAGNOSISOF THE VIRUS THAT CAUSES COVID-19.PERFORMED AT [address] [place] [address] COVID19 RESULT NOT DETECTED Comment: THIS ASSAY AMPLIFIES AND DETECTSTHE TARGET RNA USING REAL-TIME PCR.TESTING PERFORMED ON [employer] GENEXPERTNEGATIVE 2019_NCOV RT-PCR RESULTS DONOT PRECLUDE 2019_NCOV [...] of PVD (peripheral vascular disease) Hx of [place] Hx of legally blind Hx of Hypertension [...] weekly, weeklylabs and if feasible while at [facility] outpatient ID follow-up with ID MIXING ROLL OPERATOR Maggy,every 2 weeks while on IV antibiotics, [...] rce(s) Supporting Document(s) ID Date Data Source [id number] 03/12/2021 08:50:00 PM EDT [facility] ([facility]) Name Value Range Interpretation Code Description Data Lavinia rce(s) Supporting Document(s) Laboratory test finding (navigational concept) Laboratory test result [facility] ([facility]) Laboratory [address] [id number]# Surgical Pathology ReportPatient Name: Nguyen Ibarra: 6Accession [...] 03/12/2021Electronically Signed Out By Ashish Camacho M.D. [facility], [place] [address]zmsTqbvqfqzb component performed at Laboratory [place] [facility], Histopathology, [address], [place], [address].Reported at [facility], [address], [place], [address]. This report may includeimmunohistochemical or in-situ hybridization results. Testing wasdeveloped and the performance characteristics determined by [facility] as required by Clia '88. The Fda hasdetermined that approval for specific use is not necessary for clinicaluse. The quality of Hematoxylin and Eosin stains and as applicable, forall immunohistochemical and/or special stains, including positive andnegative controls, were reviewed and considered appropriate.Icd codes T82.898Acpt codesA: 47628E ID Date Data Source [id number] 03/12/2021 06:53:32 PM EDT [facility] [place] [facility] Name Value Range Interpretation Code Description Data Lavinia rce(s) Supporting Document(s) HGB 9.9 g/dL (12.0-16.0) L [facility] [place] [facility] HCT 29.1 % (36.0-47.0) L [facility] [place] [facility] ID Date Data Source [id number] 03/12/2021 09:08:57 AM EDT [facility] [place] [facility] Name Value Range Interpretation Code Description Data Lavinia rce(s) Supporting Document(s) VANCOMYCIN TROUGH 4.1 ug/mL (10.0-20.0) L [facility] ID Date Data Source [id number] 03/12/2021 06:34:10 AM EDT [facility] [place] [facility] Name Value Range Interpretation Code Description Data Lavinia rce(s) Supporting Document(s) SODIUM 141 mmol/L (136-145) [facility] [place] [facility] POTASSIUM 4.3 mmol/L (3.6-5.2) [facility] [place] [facility] CHLORIDE 106 mmol/L (100-108) [facility] [place] [facility] CO2 27 mmol/L (22-31) [facility] [place] [facility] ANION GAP 8 mmol/L (7-16) [facility] [place] [facility] UREA NITROGEN 13 mg/dL (7-24) [facility] [place] [facility] CREATININE 0.74 mg/dL (0.60-1.00) [facility] [place] [facility] BUN/CREAT RATIO 17.6 RATIO (10.0-20.0) [facility] GLUCOSE 123 mg/dL (70-99) H [facility] [place] [facility] CALCIUM 7.9 mg/dL (8.4-10.2) L [facility] [place] [facility] GFR >60 ml/min/1.73m2 (>59) [facility] [place] [facility] GFR ( AMER) >60 ml/min/1.73m2 (>59) [facility] [place] [facility] GFR INTERPRETATION [facility] --NORMAL KIDNEY FUNCTION OR MILD DISEASE - GFR >OR= 60CHRONIC KIDNEY DISEASE - GFR 15 - 59RENAL FAILURE - GFR <15 Est. GFR calculation based on the MDRDstudy equation, which assumes a steadystate for creatinine. Est. GFR should notbe used for medication dosing. ID Date Data Source [id number] 03/12/2021 06:04:32 AM EDT [facility] [place] [facility] Name Value Range Interpretation Code Description Data Lavinia rce(s) Supporting Document(s) WBC 14.2 10*3/uL (4.1-11.0) H [facility] [place] [facility] RBC 3.06 10*6/uL (4.00-5.40) L [facility] [place] [facility] HGB 9.5 g/dL (12.0-16.0) L [facility] [place] [facility] HCT 28.1 % (36.0-47.0) L [facility] [place] [facility] MCV 91.9 fL (80.0-95.0) [facility] [place] [facility] MCH 31.2 pg (27.0-32.0) [facility] [place] [facility] MCHC 33.9 g/dL (32.0-36.0) [facility] [place] [facility] RDW 14.1 % (10.5-14.5) [facility] [place] [facility] PLT 156 10*3/uL (150-450) [facility] [place] [facility] MPV 8.2 fL (7.1-10.7) [facility] [place] [facility] ID Date Data Source [id number] 03/12/2021 03:23:00 AM EDT [facility] ([facility]) Name Value Range Interpretation Code Description Data Lavinia rce(s) Supporting Document(s) Specimen Description Laboratory test result [facility] ([facility]) Microscopic observation [Identifier] in Unspecified sp ecimen by Gram stain Laboratory test result [facility] ([facility]) Special Requests Laboratory test result [facility] ([facility]) Laboratory test finding (navigational concept) Laboratory test result [facility] ([facility]) Test(S) Processed Under New Entry Please See [facility] [id number]. [id number]. Report Status Laboratory test result [facility] ([facility]) ID Date Data Source [id number] 03/11/2021 10:26:37 PM EDT [facility] [place] [facility] Name Value Range Interpretation Code Description Data Lavinia rce(s) Supporting Document(s) WBC 16.9 10*3/uL (4.1-11.0) H [facility] [place] [facility] RBC 2.89 10*6/uL (4.00-5.40) L [facility] [place] [facility] HGB 8.5 g/dL (12.0-16.0) L [facility] [place] [facility] HCT 26.5 % (36.0-47.0) L [facility] [place] [facility] MCV 91.5 fL (80.0-95.0) [facility] [place] [facility] MCH 29.3 pg (27.0-32.0) [facility] [place] [facility] MCHC 32.0 g/dL (32.0-36.0) [facility] [place] [facility] RDW 14.1 % (10.5-14.5) [facility] [place] [facility] PLT 191 10*3/uL (150-450) [facility] [place] [facility] MPV 8.2 fL (7.1-10.7) [facility] [place] [facility] ID Date Data Source [id number] 05/06/2021 10:18:50 AM EDT [facility] [place] [facility] SPECIMEN DESCRIPTION NON-SURG SOF T TISSUE SWAB L GROIN WOUNDSPECIAL REQUESTS NONEACID FAST SMEAR NO ACID FAST BACILLI (CONCENTRATED SMEAR)CULTURE RESULTS NO ACID FAST BACILLI ISOLATED AFTER 8 WEEKSREPORT STATUS FINAL 05/06/2021 Name Value Range Interpretation Code Description Data Lavinia rce(s) Supporting Document(s) ID Date Data Source [id number] 04/15/2021 10:13:21 AM EDT [facility] [place] [facility] SPECIMEN DESCRIPTION NON-SURG SOF T TISSUE SWAB L GROIN WOUNDSPECIAL REQUESTS NONECULTURE RESULTS NO FUNGUS ISOLATED AFTER 5 WEEKSREPORT STATUS FINAL 04/15/2021 Name Value Range Interpretation Code Description Data Lavinia rce(s) Supporting Document(s) ID Date Data Source [id number] 03/13/2021 04:51:09 PM EDT [facility] [place] [facility] SPECIMEN DESCRIPTION LEFT GROIN WOUNDSPECIAL REQUESTS NONEGRAM STAIN MODERATE (10 TO 25/LPF) WHITE BLOOD CELLS RARE (<1/LPF) EPITHELIAL CELLS NO BACTERIACULTURE RESULTS NO GROWTHREPORT STATUS FINAL 03/13/2021 Name Value Range Interpretation Code Description Data Lavinia rce(s) Supporting Document(s) ID Date Data Source [id number] 03/13/2021 04:50:54 PM EDT [facility] [place] [facility] SPECIMEN DESCRIPTION NON-SURG SOF T TISSUE SWAB L GROIN WOUNDSPECIAL REQUESTS NONECULTURE RESULTS FEW BACTEROIDES FRAGILISREPORT STATUS FINAL 03/13/2021 Name Value Range Interpretation Code Description Data Lavinia rce(s) Supporting Document(s) ID Date Data Source [id number] 03/11/2021 11:23:59 PM EDT [facility] [place] [facility] SPECIMEN DESCRIPTION NON-SURG SOF T TISSUE SWAB L GROIN WOUNDSPECIAL REQUESTS NONEGRAM STAIN NOT DONECULTURE RESULTS TEST(S) PROCESSED UNDER NEW ENTRY PLEASE SEE [facility] [id number]. [id number].REPORT STATUS FINAL 03/11/2021 Name Value Range Interpretation Code Description Data Lavinia rce(s) Supporting Document(s) ID Date Data Source [id number] 03/11/2021 02:05:[address] [facility] INFORMATIONPatient MRN Name Date of Age Gend*PT [id number] Nguyen Ibarra 1935 85 years F IPPT Location Admission Date/Time Visit ID Attending Provider --- --- --- --- EPI ID CSN Admitting Provider [id number] ---AirwayPatient location during procedure: ORUrgency: electiveDifficult airway: [...] cmPlacement verified by: chest auscultation and + [id number]: CTAGrade view: grade I - full view of glottisAdditional NotesGrade 1 view. Glidescope used for teaching reasons. Pt tolerated well. Name Value Range Interpretation Code Description Data Lavinia rce(s) Supporting Document(s) ID Date Data Source [id number] 03/11/2021 01:26:00 PM EDT [facility] ([facility]) Name Value Range Interpretation Code Description Data Lavinia rce(s) Supporting Document(s) Specimen Description Laboratory test result [facility] ([facility]) MRSA by PCR Laboratory test result [facility] ([facility]) ID Date Data Source [id number] 03/12/2021 04:52:02 PM EDT [facility] [place] [facility] [address] [address]Hta# Surgical Pathology ReportPatient Name: NGUYEN IBARRA: 1935ccession [...] 03/12/2021Electronically Signed Out By Ashish Camacho M.D. [facility], [place] [id number] component performed at [facility] exoro system[facility], Histopathology, [address] [place] [address], [address].Reported at [facility] [facility], [address], [place], [address]. This report may includeimmunohistochemical or in-situ hybridization results. Testing wasdeveloped and the performance valencia racteristics determined by [facility] [facility] as required by CLIA '88. The FDA hasdetermined that approval for specific use is not necessary for clinicaluse. The quality of Hematoxylin and Eosin stains and as applicable, forall immunohistochemical and/or special stains, including positive andnegative controls, were reviewed and considered appropriate.ICD codes T82.898ACPT codesA: 53441R Name Value Range Interpretation Code Description Data Lavinia rce(s) Supporting Document(s) ID Date Data Source [id number] 03/11/2021 09:37:53 AM EDT [facility] [place] Name Value Range Interpretation Code Description Data Lavinia e(s) Supporting Document(s) WBC 8.1 10*3/uL (4.1-11.0) [facility] [place] [facility] [place] RBC 3.06 10*6/uL (4.00-5.40) L [facility] [place] [facility] HGB 9.2 g/dL (12.0-16.0) L [facility] [place] [facility] HCT 28.1 % (36.0-47.0) L [facility] [place] [facility] MCV 91.7 fL (80.0-95.0) [facility] [place] [facility] MCH 30.1 pg (27.0-32.0) [facility] [place] [facility] MCHC 32.8 g/dL (32.0-36.0) [facility] [place] [facility] RDW 14.3 % (10.5-14.5) [facility] [place] [facility] PLT 181 10*3/uL (150-450) [facility] [place] [facility] MPV 8.0 fL (7.1-10.7) [facility] [place] [facility] ID Date Data Source [id number] 03/11/2021 09:18:24 AM EDT [facility] [place] [facility] Name Value Range Interpretation Code Description Data Lavinia rce(s) Supporting Document(s) SODIUM 143 mmol/L (136-145) [facility] [place] [facility] POTASSIUM 3.8 mmol/L (3.6-5.2) [facility] [place] [facility] CHLORIDE 108 mmol/L (100-108) [facility] [place] [facility] CO2 29 mmol/L (22-31) [facility] [place] [facility] ANION GAP 6 mmol/L (7-16) L [facility] [place] [facility] UREA NITROGEN 10 mg/dL (7-24) [facility] [place] [facility] CREATININE 0.55 mg/dL (0.60-1.00) L [facility] [place] [facility] BUN/CREAT RATIO 18.2 RATIO (10.0-20.0) [facility] GLUCOSE 109 mg/dL (70-99) H [facility] [place] [facility] CALCIUM 7.9 mg/dL (8.4-10.2) L [facility] [place] [facility] GFR >60 ml/min/1.73m2 (>59) [facility] [place] [facility] GFR ( AMER) >60 ml/min/1.73m2 (>59) [facility] [place] [facility] GFR INTERPRETATION [facility] --NORMAL KIDNEY FUNCTION OR MILD DISEASE - GFR >OR= 60CHRONIC KIDNEY DISEASE - GFR 15 - 59RENAL FAILURE - GFR <15 Est. GFR calculation based on the MDRDstudy equation, which assumes a steadystate for creatinine. Est. GFR should notbe used for medication dosing. ID Date Data Source [id number] 03/10/2021 11:11:00 PM EDT [facility] ([facility]) Name Value Range Interpretation Code Description Data Lavinia rce(s) Supporting Document(s) Chloride [Moles/volume] in Serum or Plasma 106 mmol/L 100-108 [facility] ([facility]) Potassium [Moles/volume] in Serum or Plasma 3.9 mmol/L 3.6-5.2 [facility] ([facility]) Sodium [Moles/volume] in Serum or Plasma 142 mmol/L 136-145 [facility] ([facility]) Carbon dioxide, total [Moles/volume] in Serum or Plasma 28 mmol/L 22 -31 [facility] ([facility]) Anion gap in Serum or Plasma 8 mmol/L 7-16 [facility] ([facility]) Creatinine [Mass/volume] in Serum or Plasma 0.64 mg/dL 0.60-1.00 [facility] ([facility]) Urea nitrogen [Mass/volume] in Serum or Plasma 12 mg/dL 7-24 [facility] ([facility]) Urea nitrogen/Creatinine [Mass Ratio] in Serum or Plasma 18.8 1 0.0-20.0 [facility] ([facility]) Calcium [Mass/volume] in Serum or Plasma 8.4 mg/dL 8.4-10.2 [facility] ([facility]) Glucose [Mass/volume] in Serum or Plasma 118 mg/dL 70-99 [facility] ([facility]) Protein [Mass/volume] in Synovial fluid 6.8 g/dL 6.4-8.2 [facility] ([facility]) Albumin [Mass/volume] in Synovial fluid 3.4 g/dL 3.2-4.5 [facility] ([facility]) Globulin [Mass/volume] in Urine by Electrophoresis 3.4 g/dL 2.7-4.3 [facility] ([facility]) Bilirubin direct and total panel [Mass/volume] - Serum or Pl asma 0.4 mg/dL 0.0-1.0 [facility] ([facility] ) PLEASE NOTE: Total bilirubin results may be falsely elevated in patients taking Eltrombopag. Alb/Glob ratio 1.0 [facility] ([facility]) Alkaline phosphatase [Enzymatic activity/volume] in Serum or Plasma 83 U/L 45-117 [facility] ([facility] ) Aspartate aminotransferase [Enzymatic activity/volume] in Serum or Plasma 10 U/L 11-39 [facility] ([facility]) Alanine aminotransferase [Enzymatic activity/volume] in Seru m or Plasma 11 U/L 12-[address] [facility] ([facility] ) Glomerular filtration rate/1.73 sq M pre dicted among non-blacks [Volume Rate/Area] in Serum or Plasma by Creatinine-based formula (MDRD) Laboratory test result [facility] ([facility]) Glomerular filtration rate/1.73 sq M pre dicted among non-blacks [Volume Rate/Area] in Serum or Plasma by Creatinine-based formula (MDRD) Laboratory test result [facility] ([facility]) -- NORMAL KIDNEY FUNCTION OR MILD DISEASE [...] by Creatinine-based formula (MDRD) Laboratory test result [facility] ([facility]) ID Date Data Source [id number] 03/10/2021 10:55:00 PM EDT [facility] ([facility]) Name Value Range Interpretation Code Description Data Lavinia rce(s) Supporting Document(s) Prothrombin time (PT) in control Platelet poor plasma by Coagulation assay 11.3 s 9.20-11.[address] [facility] ([facility]) INR in Platelet poor plasma by Coagulation assay 1.[address] [facility] ([facility]) SUGGESTED THERAPEUTIC RANGES USING INR F OR STABILIZED ANTICOAGULATED PATIENTS: STANDARD DOSE THERAPY INR 2.0-3.0 DVT, PE, PREVENT DVT OR EMBOLISM HIGH DOSE THERAPY INR 2.5-3.5 PREVENT EMBOLISM FROM MECHANICAL HEART VALVE ID Date Data Source [id number] 03/10/2021 10:55:00 PM EDT [facility] ([facility]) Name Value Range Interpretation Code Description Data Lavinia rce(s) Supporting Document(s) aPTT in Platelet poor plasma by Coagulation assay 27.9 s 22.0-34. 3 [facility] ([facility]) ID Date Data Source [id number] 03/10/2021 10:02:00 PM EDT [facility] ([facility]) Name Value Range Interpretation Code Description Data Lavinia rce(s) Supporting Document(s) Specimen Description Laboratory test result [facility] ([facility]) Influenza virus A Ab [Titer] in Serum by Complement fi xation Laboratory test result [facility] ([facility]) Respiratory syncytial virus Ab [Titer] in Serum by Com plement fixation Laboratory test result [facility] ([facility]) Influenza virus B Ab [Titer] in Serum by Complement fi xation Laboratory test result [facility] ([facility]) Laboratory comment [Text] in Report Narrative Laboratory test result [facility] ([facility]) SEE NOTE: THE U.S. FDA HAS MADE THIS SAMI T AVAILABLE UNDER AN EMERGENCY USE AUTHORIZATION (EUA) FOR THE DETECTION AND/OR DIAGNOSIS OF THE VIRUS THAT CAUSES COVID-19. PERFORMED AT [address] [place] [address] Laboratory test finding (navigational concept) Laboratory test result [facility] ([facility]) THIS ASSAY AMPLIFIES AND DETECTS THE TAR GET RNA USING REAL-TIME PCR. TESTING PERFORMED ON [employer] NEGATIVE 2019_NCOV RT-PCR RESULTS DO NOT PRECLUDE 2019_NCOV INFECTION AND SHOULD NOT BE USED THE SOLE BASIS FOR PATIENT MANAGEMENT DECISIONS. First Test Laboratory test result [facility] ([facility]) Illness or injury onset date and time Laboratory test result [facility] ([facility]) Symptomatic Laboratory test result [facility] ([facility]) Employed In [employer] [facility] Laboratory test result [facility] ([facility]) Icu Laboratory test result [facility] ([facility]) Hospitalized Laboratory test result [facility] ([facility]) Laboratory test result [facility] ([facility]) [facility] Laboratory test result [facility] ([facility]) ID Date Data Source [id number] 03/10/2021 07:30:10 PM EDT [facility] NT INFORMATIONPatient MRN Name Date of Age Gend*PT [id number] Nguyen Ibarra 1935 85 years F IPPT Location Admission Date/Time Visit ID Attending [id number] 03/10/21 1400 --- Isabella Sparrow MD([id number]) EPI ID CSN Admitting Provider [id number] Isabella Sparrow MD([id number]) Attestation signed by Isabella Sparrow MD at 03/10/2021 7:30 PMI saw and evaluated the patient and reviewed note. I agree with the history,physical and medical decision makingSignature: Isabella Sparrow MDDate: March 10, 2021Time: 7:29 PM ---------Inpatient History & PhysicalSumauricio IbarraN:[id number] and Plan:Active Problems: * No active hospital [...] 40 mg daily. 5. Pain management/ Neuropathy -[place] and Neurontin. 6. Left leg ulcer -Apply Santyl with saline wet-to-dry dressing daily 7. Labs include CMP, CBC, PTT, INR, type and screen, aerobic and anaerobicculture, Covid testing. 8. Full code Further plan per the attending physician, JACOBY Hongnvjulianne Complaint: Left groin painHPI: The patient is [...] PFA/SFA endarterectomy with Xenosure patch angioplasty leftEIA, CREAM HAULER, PFA and SFA in March 2019. She [...] disease Hiatal hernia History of GI bleed [place] (hard of hearing) Hyperlipidemia Hypertension Macular degeneration [...] rce(s) Supporting Document(s) ID Date Data Source [id number] 03/10/2021 05:06:32 PM EDT [address] [address]Ihzflvm Name: NGUYEN IBARRADOB: 1935Sex: FOrdering Provider: ISABELLA Holland Prov: ISABELLA Manzo Provider: Procedure Performed: / XR CHEST PORTABLEExam Date: 03/10/2021 16:54MRN: [id number] Number: [id number] Class: InpatientAccount #: [id number] for Exam: COPD hx.Technique: AP portable view [...] DYLAN KIRKPATRICK On 03/10/2021 5:06 PMWorkstation ID: [id number] Name Value Range Interpretation Code Description Data Lavinia rce(s) Supporting Document(s) ID Date Data Source [id number] 03/10/2021 04:55:00 PM EDT [facility] Name Value Range Interpretation Code Description Data Lavinia rce(s) Supporting Document(s) SARS coronavirus 2 RNA [Presence] in Res piratory specimen by STEPH with probe detection NOT DETECTED [facility] This lab was reported by [facility] [place] [facility]. ID Date Data Source [id number] 03/10/2021 06:03:29 PM EDT [facility] [place] [facility] Name Value Range Interpretation Code Description Data Lavinia rce(s) Supporting Document(s) SPECIMEN DESCRIPTION [facility] INFLUENZA A (NEG) [facility] [place] [facility] INFLUENZA B (NEG) [facility] [place] [facility] RSV (NEG) [facility] [place] [facility] COMMENT [facility] [place] [facility] THE [place] FDA HAS MADE THIS TEST AVAILABL EUNDER AN EMERGENCY USE AUTHORIZATION(EUA) FOR THE DETECTION AND/OR DIAGNOSISOF THE VIRUS THAT CAUSES COVID-19.PERFORMED AT [address] [place] [id number] COVID19 RESULT (NDET) [facility] [place] [facility] THIS ASSAY AMPLIFIES AND DETECTSTHE TARG ET RNA USING REAL-TIME PCR.TESTING PERFORMED ON MobileDevHQID GENEXPERTNEGATIVE 2019_NCOV RT-PCR RESULTS DONOT PRECLUDE 2019_NCOV INFECTION ANDSHOULD NOT BE USED THE SOLE BASISFOR PATIENT MANAGEMENT DECISIONS. FIRST TEST [facility] [place] [facility] SYMPTOMATIC [facility] [place] [facility] DATE OF SYMPT ONSET [facility]IZ[facility] [place] [facility] ICU [facility] [place] [facility] CONGREGATE CARE SET [facility] [place] [facility] ID Date Data Source [id number] 03/11/2021 09:27:24 AM EDT [facility] [place] [facility] Name Value Range Interpretation Code Description Data Lavinia rce(s) Supporting Document(s) SPECIMEN DESCRIPTION [facility] METH RES STAPH AUR (NEG) [facility] ID Date Data Source [id number] 03/13/2021 02:00:05 PM EDT [facility] [place] [facility] SPECIMEN DESCRIPTION WOUND LEFT GROINSPECIAL REQUESTS NONECULTURE RESULTS FEW BACTEROIDES FRAGILISREPORT STATUS FINAL 03/13/2021 Name Value Range Interpretation Code Description Data Lavinia rce(s) Supporting Document(s) ID Date Data Source [id number] 03/12/2021 03:53:31 PM EDT [facility] [place] of [facility] SPECIMEN DESCRIPTION NON-SURG SOF T TISSUE SWAB LEFT GROINSPECIAL REQUESTS NONEGRAM STAIN MODERATE (10 TO 25/LPF) WHITE BLOOD CELLS FEW (<10/LPF) EPITHELIAL CELLS NO BACTERIACULTURE RESULTS NO GROWTHREPORT STATUS FINAL 03/12/2021 Name Value Range Interpretation Code Description Data Lavinia rce(s) Supporting Document(s) ID Date Data Source [id number] 03/16/2021 08:52:49 AM EDT [facility] [place] of [facility] SPECIMEN DESCRIPTION PERIPHERALSP ECIAL REQUESTS NONECULTURE RESULTS NO GROWTH 6 DAYSREPORT STATUS FINAL 03/16/2021 Name Value Range Interpretation Code Description Data Lavinia rce(s) Supporting Document(s) ID Date Data Source [id number] 03/16/2021 08:52:49 AM EDT [facility] [place] of [facility] SPECIMEN DESCRIPTION PERIPHERALSP ECIAL REQUESTS NONECULTURE RESULTS NO GROWTH 6 DAYSREPORT STATUS FINAL 03/16/2021 Name Value Range Interpretation Code Description Data Lavinia rce(s) Supporting Document(s) ID Date Data Source [id number] 03/14/2021 12:21:32 AM EDT [facility] [place] of [facility] SPEC EXP DATE 03/13/2021ATI ENT ABO/Rh O POSITIVEANTIBODY SCREEN NEGATIVETESTING SITE PERFORMED AT [address] [place] [id number] BANK COMMENT BLOOD TYPE CONFIRMED.UNIT NUMBER [id number] COMPONENT TYPE LEUKOPOOR RED CELLSUNIT DIVISION 00STATUS OF UNIT TRANSFUSEDTRANSFUSION STATUS OK TO TRANSFUSECROSSMATCH RESULT COMPATIBLEUNIT NUMBER [id number] COMPONENT TYPE LEUKOPOOR RED CELLSUNIT DIVISION 00STATUS OF UNIT REL F ROM ALLOCTRANSFUSION STATUS OK TO TRANSFUSECROSSMATCH RESULT COMPATIBLE Name Value Range Interpretation Code Description Data Lavinia rce(s) Supporting Document(s) TYPE AND SCREEN [facility] [place] [facility] ID Date Data Source [id number] 03/10/2021 07:11:54 PM EDT [facility] [place] [facility] Name Value Range Interpretation Code Description Data Lavinia rce(s) Supporting Document(s) SODIUM 142 mmol/L (136-145) [facility] [place] [facility] POTASSIUM 3.9 mmol/L (3.6-5.2) [facility] [place] [facility] CHLORIDE 106 mmol/L (100-108) [facility] [place] [facility] CO2 28 mmol/L (22-31) [facility] [place] [facility] ANION GAP 8 mmol/L (7-16) [facility] [place] [facility] UREA NITROGEN 12 mg/dL (7-24) [facility] [place] [facility] CREATININE 0.64 mg/dL (0.60-1.00) [facility] [place] [facility] BUN/CREAT RATIO 18.8 RATIO (10.0-20.0) [facility] GLUCOSE 118 mg/dL (70-99) H [facility] [place] [facility] CALCIUM 8.4 mg/dL (8.4-10.2) [facility] [place] [facility] TOTAL PROTEIN 6.8 g/dL (6.4-8.2) [facility] [place] [facility] ALBUMIN 3.4 g/dL (3.2-4.5) [facility] [place] [facility] GLOBULIN 3.4 g/dL (2.7-4.3) [facility] [place] [facility] ALB/GLOB RATIO 1.0 RATIO [facility] [place] [facility] ALKALINE PHOSPHATASE 83 U/L (45-117) [facility] BILIRUBIN,TOTAL 0.4 mg/dL (0.0-1.0) [facility] [place] [facility] PLEASE NOTE:Total bilirubin results may be falselyelevated in patients taking Eltrombopag. AST (SGOT) 10 U/L (11-39) L [facility] [place] [facility] ALT (SGPT) 11 U/L (12-78) L [facility] [place] [facility] GFR >60 ml/min/1.73m2 (>59) [facility] [place] [facility] GFR ( AMER) >60 ml/min/1.73m2 (>59) [facility] [place] [facility] GFR INTERPRETATION [facility] --NORMAL KIDNEY FUNCTION OR MILD DISEASE - GFR >OR= 60CHRONIC KIDNEY DISEASE - GFR 15 - 59RENAL FAILURE - GFR <15 Est. GFR calculation based on the MDRDstudy equation, which assumes a steadystate for creatinine. Est. GFR should notbe used for medication dosing. ID Date Data Source [id number] 03/10/2021 06:55:45 PM EDT [facility] Name Value Range Interpretation Code Description Data Lavinia rce(s) Supporting Document(s) APTT 27.9 s (22.0-34.3) [facility] ID Date Data Source [id number] 03/10/2021 06:55:45 PM EDT [facility] Name Value Range Interpretation Code Description Data Lavinia rce(s) Supporting Document(s) PT 11.3 s (9.2-11.9) [facility] INR 1.08 [facility] SUGGESTED THERAPEUTIC RANGES USING INR F ORSTABILIZED ANTICOAGULATED PATIENTS:STANDARD DOSE THERAPY INR 2.0-3.0 DVT, PE, PREVENT DVT OR EMBOLISMHIGH DOSE THERAPY INR 2.5-3.5 PREVENT EMBOLISM FROM MECHANICAL HEART VALVE ID Date Data Source [id number] 03/10/2021 11:14:00 AM EDT [facility] CT P MI WO IV [...] femoral arteries, not fully included in the moeyw-gt-arsy. There is a 1.4 x 1.9 cm [...] rce(s) Supporting Document(s) ID Date Data Source [id number] 03/12/2021 09:58:54 AM EDT [facility] [place] [facility] - CORE SPECIMEN DESCRIPTION GROIN LEFTSPECIAL REQUESTS NONEGRAM STAIN MODERATE (10 TO 25/LPF) WHITE BLOOD CELLS RARE (<1/LPF) EPITHELIAL CELLS NO BACTERIACULTURE RESULTS FEW NORMAL ZULEIKA CONSISTENT WITH SPECIMEN TYPE NO BETA HEMOLYTIC STREPTOCOCCI ISOLATED NO STAPHYLOCOCCUS AUREUS ISOLATEDNOTE: BIOCHEMICAL IDENTIFICATION SYSTEMS WERE SET UP ON SUSPECTCOLONIES TO R/O PATHOGENS. REPORT STATUS FINAL 03/12/2021 Name Value Range Interpretation Code Description Data [facility] rce(s) Supporting Document(s) ID Date Data Source [id number] 03/10/2021 10:49:00 AM EDT [facility] ([facility]) Name Value Range Interpretation Code Description Data Lavinia rce(s) Supporting Document(s) Bacteria identified in Wound deep by Culture Laboratory test result [facility] ([facility]) <content>SPECIMEN DESCRIPTION SYLWIA IN</content>
<content> LEFT</content>
<content>SPECIAL [...] STATUS FINAL 03/12/2021</content> ID Date Data Source [id number] 03/01/2021 11:34:00 AM EDT [facility] ([facility]) Name Value Range Interpretation Code Description Data Lavinia rce(s) Supporting Document(s) Carotid Ultrasound Bilateral Laboratory test result [facility] ([facility]) ID Date Data Source [id number] 02/25/2021 01:59:00 PM EDT [facility] Name Value Range Interpretation Code Description Data Lavinia rce(s) Supporting Document(s) SARS coronavirus 2 RNA [Presence] in Res piratory specimen by STEPH with probe detection NEGATIVE [facility] This lab was ordered by [facility] a nd reported by [facility]. ID Date Data Source [id number] 02/05/2021 07:38:[address] [facility] INFORMATIONPatient MRN Name Date of Age Gend*PT [id number] Nguyen Ibarra 1935 85 years F IPPT Location Admission Date/Time Visit ID Attending [id number] 01/25/21 1340 --- --- EPI ID CSN Admitting Provider [id number] Isabella Sparrow MD([id number])NAME: Nguyen Ibrahim#: [id number] #: [id number] DATE: 01/28/2021 PT TYPE: C SURACCT #: [id number] : 1935 SEX: femaleReferring Physician:Primary Care Physician: [...] left common femoral artery was accessed using 5-Montenegrin micropuncture kit,which was switched to a 5- Montenegrin sheath into the cross fem bypass.Bilateral leg [...] runoff. Thesheath was exchanged for a short 6-Montenegrin sheath. A Mynxclosure device was used to close the left groin arteriotomy. There was nobleeding or hematoma present. Patient was stable throughout the procedure Jaden was present throughout. Patient had palpable bilateral foot pulse, which shedid not have before.Isabella Sparrow MD Name Value Range Interpretation Code Description Data Lavinia rce(s) Supporting Document(s) ID Date Data Source [id number] 02/05/2021 07:29:[address] [facility]FORMATIONPatient MRN Name Date of Age Gend*PT [id number] Nguyen Ibarra 1935 85 years F IPPT Location Admission Date/Time Visit ID Attending [id number] 01/25/21 1340 --- --- EPI ID CSN Admitting Provider [id number] Isabella Sparrow MD([id number])NAME: Nguyen Ibrahim#: [id number] #: [id number] DATE: 01/26/2021 PT TYPE: C SURACCT #: [id number] : 1935 SEX: femaleReferring Physician:Primary Care Physician: [...] heparin. The left brachial artery wasaccessed using 5-Montenegrin micropuncture kit, which was switched to a [...] closed using 3-0 Vicryl and 4-0 Monocryl. [place] ordonez and 8i1aigzo were used for dressing. Patient was stable throughout the procedure and Iwas present throughout.Isabella Sparrow MD Name Value Range Interpretation Code Description Data Lavinia rce(s) Supporting Document(s) ID Date Data Source [id number] 01/29/2021 06:53:[address] [facility] INFORMATIONPatient MRN Name Date of Age Gend*PT [id number] Tony Nguyen J 1935 85 years F IPPT Location Admission Date/Time Visit ID Attending [id number] 01/25/21 1340 --- --- EPI ID CSN Admitting Provider [id number] Isabella Sparrow MD([id number]) Attestation signed by Isabella Sparrow MD at 01/29/2021 6:53 PMI saw and evaluated the patient and reviewed note. I agree with the history,physical and medical decision makingSignature: HANG Hongate: January 29, 2021Time: 6:53 PM --Surgical Discharge SummarySumauricio Garibay [facility] PresbyterianN: [id number] date: 01/25dmitting Physician: HANG Hongischarge date and [...] nightlySpiriva Respimat 2.5 MCG/ACT AersGeneric drug: Tiotropium [place] Monohydrate Inhale 1 puff dailyTYLENOL PM EXTRA [...] disease Hiatal hernia History of GI bleed [place] (hard of hearing) Hyperlipidemia Hypertension Macular degeneration [...] rce(s) Supporting Document(s) ID Date Data Source [id number] 01/29/2021 10:59:00 AM EDT [facility] ([facility]) Name Value Range Interpretation Code Description Data Lavinia rce(s) Supporting Document(s) Sodium [Moles/volume] in Serum or Plasma 146 mmol/L 136-145 [facility] ([facility]) Potassium [Moles/volume] in Serum or Plasma 4.1 mmol/L 3.6-5.2 [facility] ([facility]) Chloride [Moles/volume] in Serum or Plasma 112 mmol/L 100-108 [facility] ([facility]) Anion gap in Serum or Plasma 6 mmol/L 7-16 [facility] ([facility]) Urea nitrogen [Mass/volume] in Serum or Plasma 15 mg/dL 7-24 [facility] ([facility]) Carbon dioxide, total [Moles/volume] in Serum or Plasma 28 mmol/L 22 -31 [facility] ([facility]) Urea nitrogen/Creatinine [Mass Ratio] in Serum or Plasma 18.3 1 0.0-20.0 [facility] ([facility]) Glucose [Mass/volume] in Serum or Plasma 108 mg/dL 70-99 [facility] ([facility]) Creatinine [Mass/volume] in Serum or Plasma 0.82 mg/dL 0.60-1.00 [facility] ([facility]) Glomerular filtration rate/1.73 sq M pre dicted among non-blacks [Volume Rate/Area] in Serum or Plasma by Creatinine-based formula (MDRD) Laboratory test result [facility] ([facility]) Calcium [Mass/volume] in Serum or Plasma 8.4 mg/dL 8.4-10.2 [facility] ([facility]) Glomerular filtration rate/1.73 sq M pre dicted among blacks [Volume Rate/Area] in Serum or Plasma by Creatinine-based formula (MDRD) Laboratory test result [facility] ([facility]) Glomerular filtration rate/1.73 sq M pre dicted among non-blacks [Volume Rate/Area] in Serum or Plasma by Creatinine-based formula (MDRD) Laboratory test result [facility] ([facility]) -- NORMAL KIDNEY FUNCTION OR MILD DISEASE - GFR >OR= 60 CHRONIC KIDNEY DISEASE - GFR 15 - 59 RENAL FAILURE - GFR <15 Est. GFR calculation based on the MDRD study equation, which assumes a steady state for creatinine. Est. GFR should not be used for medication dosing. ID Date Data Source [id number] 01/29/2021 10:40:00 AM EDT [facility] ([facility]) Name Value Range Interpretation Code Description Data [facility] rce(s) Supporting Document(s) Leukocytes [#/volume] in Blood by Automated count 7.0 10*3/uL 4.10-11 .00 [facility] ([facility]) Hemoglobin [Mass/volume] in Blood 8.6 g/dL 12.0-16.0 [...] [facility]) ID Date Data Source [id number] 01/29/2021 06:59:38 AM EDT [facility] [place] [facility] Name Value Range Interpretation Code Description Data [facility] rce(s) Supporting Document(s) SODIUM 146 mmol/L (136-145) H [facility] [place] [facility] POTASSIUM 4.1 mmol/L (3.6-5.2) [facility] [place] [facility] CHLORIDE 112 mmol/L (100-108) H [facility] [place] [facility] CO2 28 mmol/L (22-31) [facility] [place] [facility] ANION GAP 6 mmol/L (7-16) L [facility] [place] [facility] UREA NITROGEN 15 mg/dL (7-24) [facility] [place] [facility] CREATININE 0.82 mg/dL (0.60-1.00) [facility] [place] [facility] BUN/CREAT RATIO 18.3 RATIO (10.0-20.0) [facility] [place] [facility] GLUCOSE 108 mg/dL (70-99) H [facility] [place] [facility] CALCIUM 8.4 mg/dL (8.4-10.2) [facility] [place] [facility] GFR >60 ml/min/1.73m2 (>59) [facility] [place] [facility] GFR ( AMER) >60 ml/min/1.73m2 (>59) [facility] [place] [facility] GFR INTERPRETATION [facility] --NORMAL KIDNEY FUNCTION OR MILD DISEASE - GFR >OR= 60CHRONIC KIDNEY DISEASE - GFR 15 - 59RENAL FAILURE - GFR <15 Est. GFR calculation based on the MDRDstudy equation, which assumes a steadystate for creatinine. Est. GFR should notbe used for medication dosing. ID Date Data Source [id number] 01/29/2021 06:40:59 AM EDT [facility] [place] [facility] Name Value Range Interpretation Code Description Data [facility]ia rce(s) Supporting Document(s) WBC 7.0 10*3/uL (4.1-11.0) [place] [facility] [place] RBC 2.69 10*6/uL (4.00-5.40) L [facility] [place] [facility] HGB 8.6 g/dL (12.0-16.0) L [facility] [place] [facility] HCT 26.0 % (36.0-47.0) L [facility] [place] [facility] MCV 96.7 fL (80.0-95.0) H [facility] [place] [facility] MCH 31.9 pg (27.0-32.0) [facility] [place] [facility] MCHC 33.0 g/dL (32.0-36.0) [facility] [place] [facility] RDW 15.5 % (10.5-14.5) H [facility] [place] [facility] PLT 173 10*3/uL (150-450) [facility] [place] [facility] MPV 7.3 fL (7.1-10.7) [facility] [place] [facility] ID Date Data Source [id number] 01/28/2021 09:53:46 AM EDT [facility] Name Value Range Interpretation Code Description Data [place] rce(s) Supporting Document(s) IR IS ABDOMINAL ANGIOGRAM [facility] ID Date Data Source [id number] 01/28/2021 08:10:30 AM EDT [facility] [place] [facility] Name Value Range Interpretation Code Description Data [place] rce(s) Supporting Document(s) SODIUM 144 mmol/L (136-145) [facility] [place] [facility] POTASSIUM 3.8 mmol/L (3.6-5.2) [facility] [place] [facility] CHLORIDE 109 mmol/L (100-108) H [facility] [place] [facility] CO2 28 mmol/L (22-31) [facility] [place] [facility] ANION GAP 7 mmol/L (7-16) [facility] [place] [facility] UREA NITROGEN 16 mg/dL (7-24) [facility] [place] [facility] CREATININE 0.79 mg/dL (0.60-1.00) [facility] [place] [facility] BUN/CREAT RATIO 20.3 RATIO (10.0-20.0) H [facility] GLUCOSE 112 mg/dL (70-99) H [facility] [place] [facility] CALCIUM 8.2 mg/dL (8.4-10.2) L [facility] [place] [facility] GFR >60 ml/min/1.73m2 (>59) [facility] [place] [facility] GFR ( AMER) >60 ml/min/1.73m2 (>59) [facility] [place] [facility] GFR INTERPRETATION [facility] --NORMAL KIDNEY FUNCTION OR MILD DISEASE - GFR >OR= 60CHRONIC KIDNEY DISEASE - GFR 15 - 59RENAL FAILURE - GFR <15 Est. GFR calculation based on the MDRDstudy equation, which assumes a steadystate for creatinine. Est. GFR should notbe used for medication dosing. ID Date Data Source [id number] 01/28/2021 07:44:00 AM EDT [facility] [place] [facility] Name Value Range Interpretation Code Description Data [facility](s) Supporting Document(s) WBC 7.1 10*3/uL (4.1-11.0) [facility] [place] [facility] [place] RBC 2.57 10*6/uL (4.00-5.40) L [facility] [place] [facility] HGB 8.4 g/dL (12.0-16.0) L [facility] [place] [facility] HCT 24.8 % (36.0-47.0) L [facility] [place] [facility] MCV 96.5 fL (80.0-95.0) H [facility] [place] [facility] MCH 32.5 pg (27.0-32.0) H [facility] [place] [facility] MCHC 33.7 g/dL (32.0-36.0) [facility] [place] [facility] RDW 15.4 % (10.5-14.5) H [facility] [place] [facility] PLT 191 10*3/uL (150-450) [facility] [place] [facility] MPV 7.2 fL (7.1-10.7) [facility] [place] [facility] ID Date Data Source [id number] 01/27/2021 07:43:29 AM EDT [facility] [place] [facility] Name Value Range Interpretation Code Description Data [facility] rce(s) Supporting Document(s) SODIUM 142 mmol/L (136-145) [facility] [place] [facility] POTASSIUM 4.0 mmol/L (3.6-5.2) [facility] [place] [facility] CHLORIDE 107 mmol/L (100-108) [facility] [place] [facility] CO2 29 mmol/L (22-31) [facility] [place] [facility] ANION GAP 6 mmol/L (7-16) L [facility] [place] [facility] UREA NITROGEN 13 mg/dL (7-24) [facility] [place] [facility] CREATININE 0.71 mg/dL (0.60-1.00) [facility] [place] [facility] BUN/CREAT RATIO 18.3 RATIO (10.0-20.0) [facility] GLUCOSE 100 mg/dL (70-99) H [facility] [place] [facility] CALCIUM 8.7 mg/dL (8.4-10.2) [facility] [place] [facility] GFR >60 ml/min/1.73m2 (>59) [facility] [place] [facility] GFR ( AMER) >60 ml/min/1.73m2 (>59) [facility] [place] [facility] GFR INTERPRETATION [facility] --NORMAL KIDNEY FUNCTION OR MILD DISEASE - GFR >OR= 60CHRONIC KIDNEY DISEASE - GFR 15 - 59RENAL FAILURE - GFR <15 Est. GFR calculation based on the MDRDstudy equation, which assumes a steadystate for creatinine. Est. GFR should notbe used for medication dosing. ID Date Data Source [id number] 01/27/2021 07:15:07 AM EDT [facility] [place] [facility] Name Value Range Interpretation Code Description Data [facility] rce(s) Supporting Document(s) WBC 8.0 10*3/uL (4.1-11.0) [facility] [place] [facility] [place] RBC 2.96 10*6/uL (4.00-5.40) L [facility] [place] [facility] HGB 9.5 g/dL (12.0-16.0) L [facility] [place] [facility] HCT 28.2 % (36.0-47.0) L [facility] [place] [facility] MCV 95.4 fL (80.0-95.0) H [facility] [place] [facility] MCH 32.2 pg (27.0-32.0) H [facility] [place] [facility] MCHC 33.8 g/dL (32.0-36.0) [facility] [place] [facility] RDW 15.1 % (10.5-14.5) H [facility] [place] [facility] PLT 220 10*3/uL (150-450) [facility] [place] [facility] MPV 7.1 fL (7.1-10.7) [facility] [place] [facility] ID Date Data Source [id number] 01/26/2021 05:33:31 PM EDT [facility] Name Value Range Interpretation Code Description Data [facility] rce(s) Supporting Document(s) IR IS ARTERIOGRAM EXTREMITY SINGLE LEFT [facility] ID Date Data Source [id number] 01/26/2021 06:38:10 AM EDT [facility] Name Value Range Interpretation Code Description Data [facility] rce(s) Supporting Document(s) EKG [facility] [id number]QYNnTFGMJZ6UdQPj jb2 [file] Ns/P7+429fLb+8/e3+vxUQq5vpB1knN01giBg/P3OueFg99qJ9ljW8//rubén/S//8/bnz1x+mHEd8CD4ms [file] [id number]+QkufpMKpsDfjTHCLBOVcXSyUCMTHA3V= ID Date Data Source [id number] 01/26/2021 05:33:43 AM EDT [facility] [place] [facility] Name Value Range Interpretation Code Description Data [facility] rce(s) Supporting Document(s) SODIUM 142 mmol/L (136-145) [facility] [place] [facility] POTASSIUM 4.7 mmol/L (3.6-5.2) [facility] [place] [facility] CHLORIDE 107 mmol/L (100-108) [facility] [place] [facility] CO2 29 mmol/L (22-31) [facility] [place] [facility] ANION GAP 6 mmol/L (7-16) L [facility] [place] [facility] UREA NITROGEN 16 mg/dL (7-24) [facility] [place] [facility] CREATININE 0.75 mg/dL (0.60-1.00) [facility] [place] [facility] BUN/CREAT RATIO 21.3 RATIO (10.0-20.0) H [facility] GLUCOSE 98 mg/dL (70-99) [facility] [place] [facility] CALCIUM 8.5 mg/dL (8.4-10.2) [facility] [place] [facility] GFR >60 ml/min/1.73m2 (>59) [facility] [place] [facility] GFR ( AMER) >60 ml/min/1.73m2 (>59) [facility] [place] [facility] GFR INTERPRETATION [facility] --NORMAL KIDNEY FUNCTION OR MILD DISEASE - GFR >OR= 60CHRONIC KIDNEY DISEASE - GFR 15 - 59RENAL FAILURE - GFR <15 Est. GFR calculation based on the MDRDstudy equation, which assumes a steadystate for creatinine. Est. GFR should notbe used for medication dosing. ID Date Data Source [id number] 01/26/2021 05:11:06 AM EDT [facility] [place] [facility] Name Value Range Interpretation Code Description Data [facility] rce(s) Supporting Document(s) WBC 5.9 10*3/uL (4.1-11.0) [facility] [place] [facility] [place] RBC 2.83 10*6/uL (4.00-5.40) L [facility] [place] [facility] HGB 9.1 g/dL (12.0-16.0) L [facility] [place] [facility] HCT 27.2 % (36.0-47.0) L [facility] [place] [facility] MCV 96.1 fL (80.0-95.0) H [facility] [place] [facility] MCH 32.1 pg (27.0-32.0) H [facility] [place] [facility] MCHC 33.4 g/dL (32.0-36.0) [facility] [place] [facility] RDW 15.1 % (10.5-14.5) H [facility] [place] [facility] PLT 221 10*3/uL (150-450) [facility] [place] [facility] MPV 6.7 fL (7.1-10.7) L [facility] [place] [facility] ID Date Data Source [id number] 01/25/2021 09:58:00 PM EDT [facility] ([facility]) Name Value Range Interpretation Code Description Data Lavinia rce(s) Supporting Document(s) Specimen Expiration Date Laboratory test result [facility] ([facility]) Patient Abo/Rh Laboratory test result ME ANN-MARIE ([facility]) Testing site Laboratory test result MEDE NT ([facility]) Blood bank comment Laboratory test result [facility] ([facility]) BLOOD TYPE CONFIRMED. Antibody Screen Laboratory test result M MARILYN ([facility]) ID Date Data Source [id number] 01/25/2021 07:41:00 PM EDT [facility] ([facility]) Name Value Range Interpretation Code Description Data Lavinia rce(s) Supporting Document(s) INR in Platelet poor plasma by Coagulation assay 1.07 MEDSHWETHA ([facility]) SUGGESTED THERAPEUTIC RANGES USING INR F OR STABILIZED ANTICOAGULATED PATIENTS: STANDARD DOSE THERAPY INR 2.0-3.0 DVT, PE, PREVENT DVT OR EMBOLISM HIGH DOSE THERAPY INR 2.5-3.5 PREVENT EMBOLISM FROM MECHANICAL HEART VALVE Prothrombin time (PT) in control Platelet poor plasma by Coagulation assay 11.2 s 9.20-11.90 [facility] ([facility]) ID Date Data Source [id number] 01/25/2021 07:41:00 PM EDT [facility] ([facility]) Name Value Range Interpretation Code Description Data Lavinia rce(s) Supporting Document(s) aPTT in Platelet poor plasma by Coagulation assay 24.7 s 22.0-34. 3 [facility] ([facility]) ID Date Data Source [id number] 01/25/2021 07:11:00 PM EDT [facility] ([facility]) Name Value Range Interpretation Code Description Data Lavinia rce(s) Supporting Document(s) Specimen Description Laboratory test result [facility] ([facility]) Influenza virus A Ab [Titer] in Serum by Complement fi xation Laboratory test result [facility] ([facility]) Laboratory comment [Text] in Report Narrative Laboratory test result [facility] ([facility]) SEE NOTE: THE U.S. FDA HAS MADE THIS SAMI T AVAILABLE UNDER AN EMERGENCY USE AUTHORIZATION (EUA) FOR THE DETECTION AND/OR DIAGNOSIS OF THE VIRUS THAT CAUSES COVID-19. PERFORMED AT [address] [place] [address] Influenza virus B Ab [Titer] in Serum by Complement fi xation Laboratory test result [facility] ([facility]) Respiratory syncytial virus Ab [Titer] in Serum by Com plement fixation Laboratory test result [facility] ([facility]) Laboratory test finding (navigational concept) Laboratory test result [facility] ([facility]) THIS ASSAY AMPLIFIES AND DETECTS THE TAR GET RNA USING REAL-TIME PCR. TESTING PERFORMED ON [employer] GENELet it WavePERT NEGATIVE 2019_NCOV RT-PCR RESULTS DO NOT PRECLUDE 2019_NCOV INFECTION AND SHOULD NOT BE USED THE SOLE BASIS FOR PATIENT MANAGEMENT DECISIONS. First Test Laboratory test result [facility] ([facility]) Illness or injury onset date and time Laboratory test result [facility] ([facility]) Symptomatic Laboratory test result MEDEN T ([facility]) Employed In [employer] [facility] Laboratory test result [facility] ([facility]) Hospitalized Laboratory test result MEDE NT ([facility]) Icu Laboratory test result [facility] ([facility]) Laboratory test result [facility] ([facility]) [facility] Laboratory test result [facility] ([facility]) ID Date Data Source [id number] 01/25/2021 05:53:[address] [facility] INFORMATIONPatient MRN Name Date of Age Gend*PT [id number] Nguyen Ibarra 1935 85 years F IPPT Location Admission Date/Time Visit ID Attending [id number] 01/25/21 1340 --- Isabella Sparrow MD([id number]) EPI ID CSN Admitting Provider [id number] Isabella Sparrow MD([id number]) Attestation signed by Isabella Sparrow MD at 01/25/2021 5:53 PMI saw and evaluated the patient and reviewed note. I agree with the history,physical and medical decision makingSignature: Isabella Sparrow MDDate: January 25, 2021Time: 5:53 PM ---------Inpatient History & PhysicalSumauricio IbarraManjit:[id number] and Plan:Active Problems: COPD (chronic obstructive pulmonary [...] really hurts"HPI:85 year old female presents to [facility] for planned admission to the vascular serviceunder [...] PFA/SFA endarterectomy with Xenosure patch angioplasty leftEIA, CREAM HAULER, PFA and SFA in March 2019. She [...] disease Hiatal hernia History of GI bleed [place] (hard of hearing) Hyperlipidemia Hypertension Macular degeneration [...] rce(s) Supporting Document(s) ID Date Data Source [id number] 01/25/2021 05:59:07 PM EDT [facility] [place] [facility] SPEC EXP DATE 01/28/2021ATI ENT ABO/Rh O POSITIVEANTIBODY SCREEN NEGATIVETESTING SITE PERFORMED AT [address] [place], [place] [address]OOD BANK COMMENT BLOOD TYPE CONFIRMED. Name Value Range Interpretation Code Description Data Lavinia rce(s) Supporting Document(s) TYPE AND SCREEN [facility] [place] [facility] ID Date Data Source [id number] 01/25/2021 03:44:21 PM EDT [facility] [place] [facility] Name Value Range Interpretation Code Description Data Lavinia rce(s) Supporting Document(s) SODIUM 140 mmol/L (136-145) [facility] [place] [facility] POTASSIUM 4.3 mmol/L (3.6-5.2) [facility] [place] [facility] CHLORIDE 105 mmol/L (100-108) [facility] [place] [facility] CO2 28 mmol/L (22-31) [facility] [place] [facility] ANION GAP 7 mmol/L (7-16) [facility] [place] [facility] UREA NITROGEN 16 mg/dL (7-24) [facility] [place] [facility] CREATININE 0.85 mg/dL (0.60-1.00) [facility] [place] [facility] BUN/CREAT RATIO 18.8 RATIO (10.0-20.0) [facility] GLUCOSE 115 mg/dL (70-99) H [facility] [place] [facility] CALCIUM 8.8 mg/dL (8.4-10.2) [facility] [place] [facility] TOTAL PROTEIN 7.4 g/dL (6.4-8.2) [facility] [place] [facility] ALBUMIN 3.5 g/dL (3.2-4.5) [facility] [place] [facility] GLOBULIN 3.9 g/dL (2.7-4.3) [facility] [place] [facility] ALB/GLOB RATIO 0.9 RATIO [facility] [place] [facility] ALKALINE PHOSPHATASE 71 U/L (45-117) [facility] BILIRUBIN,TOTAL 0.4 mg/dL (0.0-1.0) [facility] [place] [facility] PLEASE NOTE:Total bilirubin results may be falselyelevated in patients taking Eltrombopag. AST (SGOT) 44 U/L (11-39) H [facility] [place] [facility] ALT (SGPT) 18 U/L (12-78) [facility] [place] [facility] GFR >60 ml/min/1.73m2 (>59) [facility] [place] [facility] GFR ( AMER) >60 ml/min/1.73m2 (>59) [facility] [place] [facility] GFR INTERPRETATION [facility] --NORMAL KIDNEY FUNCTION OR MILD DISEASE - GFR >OR= 60CHRONIC KIDNEY DISEASE - GFR 15 - 59RENAL FAILURE - GFR <15 Est. GFR calculation based on the MDRDstudy equation, which assumes a steadystate for creatinine. Est. GFR should notbe used for medication dosing. ID Date Data Source [id number] 01/25/2021 03:42:10 PM EDT [facility] [place] [facility] Name Value Range Interpretation Code Description Data Lavinia rce(s) Supporting Document(s) APTT 24.7 s (22.0-34.3) [facility] [place] [facility] ID Date Data Source [id number] 01/25/2021 03:42:10 PM EDT [facility] [place] [facility] Name Value Range Interpretation Code Description Data Lavinia rce(s) Supporting Document(s) PT 11.2 s (9.2-11.9) [facility] [place] [facility] INR 1.07 [facility] [place] [facility] SUGGESTED THERAPEUTIC RANGES USING INR F ORSTABILIZED ANTICOAGULATED PATIENTS:STANDARD DOSE THERAPY INR 2.0-3.0 DVT, PE, PREVENT DVT OR EMBOLISMHIGH DOSE THERAPY INR 2.5-3.5 PREVENT EMBOLISM FROM MECHANICAL HEART VALVE ID Date Data Source [id number] 01/25/2021 03:31:14 PM EDT [facility] [place] [facility] Name Value Range Interpretation Code Description Data Lavinia rce(s) Supporting Document(s) WBC 6.9 10*3/uL (4.1-11.0) [facility] [place] [facility] [place] RBC 3.30 10*6/uL (4.00-5.40) L [facility] [place] [facility] HGB 10.4 g/dL (12.0-16.0) L [facility] [place] [facility] HCT 31.8 % (36.0-47.0) L [facility] [place] [facility] MCV 96.4 fL (80.0-95.0) H [facility] [place] [facility] MCH 31.6 pg (27.0-32.0) [facility] [place] [facility] MCHC 32.7 g/dL (32.0-36.0) [facility] [place] [facility] RDW 15.0 % (10.5-14.5) H [facility] [place] [facility] PLT 292 10*3/uL (150-450) [facility] [place] [facility] MPV 7.4 fL (7.1-10.7) [facility] [place] [facility] ID Date Data Source [id number] 01/25/2021 02:05:00 PM EDT [facility] Name Value Range Interpretation Code Description Data Lavinia rce(s) Supporting Document(s) SARS coronavirus 2 RNA [Presence] in Res piratory specimen by STEPH with probe detection NOT DETECTED [facility] This lab was reported by [facility] [place] [facility]. ID Date Data Source [id number] 01/25/2021 03:12:10 PM EDT [facility] [place] [facility] Name Value Range Interpretation Code Description Data Lavinia rce(s) Supporting Document(s) SPECIMEN DESCRIPTION [facility] INFLUENZA A (NEG) [facility] [place] [facility] INFLUENZA B (NEG) [facility] [place] [facility] RSV (NEG) [facility] [place] [facility] COMMENT [facility] [place] [facility] THE U.S. FDA HAS MADE THIS TEST AVAILABL EUNDER AN EMERGENCY USE AUTHORIZATION(EUA) FOR THE DETECTION AND/OR DIAGNOSISOF THE VIRUS THAT CAUSES COVID-19.PERFORMED AT [address] [place] [address] COVID19 RESULT (NDET) [facility] [place] vinh SAND[place]AL THIS ASSAY AMPLIFIES AND DETECTSTHE TARG ET RNA USING REAL-TIME PCR.TESTING PERFORMED ON [employer] GENEXPERTNEGATIVE 2019_NCOV RT-PCR RESULTS DONOT PRECLUDE 2019_NCOV INFECTION ANDSHOULD NOT BE USED THE SOLE BASISFOR PATIENT MANAGEMENT DECISIONS. FIRST TEST [facility] [place] [facility] SYMPTOMATIC [facility] [place] [facility] [place] DATE OF SYMPT ONSET [facility] HOSPITALIZED [facility] [place] [facility] [place] ICU [facility] [place] [facility] CONGREGATE CARE SET [facility] [place] [facility] [place] vinh SANDOVAL ID Date Data Source [id number] 01/20/2021 11:49:00 AM EDT [facility] Imaging AssociatesEXAM: CT A NGIO ABD AORTA [...] common iliac artery. 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 [...] rce(s) Supporting Document(s) ID Date Data Source [id number] 01/20/2021 10:48:00 AM EDT [facility] ([facility]) Name Value Range Interpretation Code Description Data Lavinia rce(s) Supporting Document(s) Bypass Graft Ultrasound Lower Extremity Left Laboratory test result [facility] ([facility]) ID Date Data Source [id number] 01/13/2021 08:16:[address] [address] [facility] INFORMATIONPatient MRN Name Date of Age Gend*PT [id number] Nguyen Ibarra 1935 85 years F SDCXPT Location Admission Date/Time Visit ID Attending [id number] 12/24/20 1107 --- --- EPI ID CSN Admitting Provider [id number] Isabella Sparrow MD([id number])NAME: Nguyen Ibrahim#: [id number] #: [id number] DATE: 12/25/2020 PT TYPE: C SURACCT #: [id number] : 1935 SEX: femaleReferring Physician:Primary Care Physician: [...] right common femoral artery was accessed using 5-Montenegrin micropuncture kit,which was switched to a 5-Montenegrin sheath and catheter was placed via the [...] runoff. Thesheath was exchanged for a short 6-Montenegrin sheath. A Mynxclosure device was used to close the right groin arteriotomy. There was nobleeding or hematoma present. Patient was stable throughout the procedure Jaden was present throughout.Isabella Sparrow MD Name Value Range Interpretation Code Description Data Lavinia rce(s) Supporting Document(s) ID Date Data Source [id number] 12/27/2020 12:12:[address] [facility] INFORMATIONPatient MRN Name Date of Age Gend*PT [id number] Nguyen Ibarra 1935 85 years F SDCXPT Location Admission Date/Time Visit ID Attending [id number] 12/24/20 1107 --- --- EPI ID CSN Admitting Provider [id number] Isabella Sparrow MD([id number]) Attestation signed by Isabella Sparrow MD at 12/27/2020 12:12 AMI saw and evaluated the patient and reviewed note. 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 No grossneurological deficits.Items needing special attention:- Follow up appointment with Dr. Sparrow in 2 weeks- Continue aspirin and plavixDischarged Condition:goodDisposition: Home or Self CareSignature: JOJO Mark-KEVINate: December 26, 2020Time: 12:25 PM Name Value Range Interpretation Code Description Data [facility](s) Supporting Document(s) ID Date Data Source [id number] 12/26/2020 07:29:12 AM EDT [facility] [place] [facility] Name Value Range Interpretation Code Description Data [facility](s) Supporting Document(s) SODIUM 144 mmol/L (136-145) [facility] [place] [facility] POTASSIUM 3.9 mmol/L (3.6-5.2) [facility] [place] [facility] CHLORIDE 110 mmol/L (100-108) H [facility] [place] [facility] CO2 29 mmol/L (22-31) [facility] [place] [facility] ANION GAP 5 mmol/L (7-16) L [facility] [place] [facility] UREA NITROGEN 15 mg/dL (7-24) [facility] [place] [facility] CREATININE 0.72 mg/dL (0.60-1.00) [facility] [place] [facility] BUN/CREAT RATIO 20.8 RATIO (10.0-20.0) H [facility] GLUCOSE 99 mg/dL (70-99) [facility] [place] [facility] CALCIUM 8.0 mg/dL (8.4-10.2) L [facility] [place] [facility] GFR >60 ml/min/1.73m2 (>59) [facility] [place] [facility] GFR ( AMER) >60 ml/min/1.73m2 (>59) [facility] [place] [facility] GFR INTERPRETATION [facility] --NORMAL KIDNEY FUNCTION OR MILD DISEASE - GFR >OR= 60CHRONIC KIDNEY DISEASE - GFR 15 - 59RENAL FAILURE - GFR <15 Est. GFR calculation based on the MDRDstudy equation, which assumes a steadystate for creatinine. Est. GFR should notbe used for medication dosing. ID Date Data Source [id number] 12/26/2020 07:18:09 AM EDT [facility] [place] [facility] Name Value Range Interpretation Code Description Data Lavinia rce(s) Supporting Document(s) WBC 6.3 10*3/uL (4.1-11.0) [facility] [place] [facility] [place] RBC 2.82 10*6/uL (4.00-5.40) L [facility] [place] [facility] HGB 8.9 g/dL (12.0-16.0) L [facility] [place] [facility] HCT 26.6 % (36.0-47.0) L [facility] [place] [facility] PERFORMED AT [address] [place] [address] N Y [id number] MCV 94.4 fL (80.0-95.0) [facility] [place] [facility] MCH 31.6 pg (27.0-32.0) [facility] [place] [facility] MCHC 33.4 g/dL (32.0-36.0) [facility] [place] [facility] RDW 15.7 % (10.5-14.5) H [facility] [place] [facility] PLT 159 10*3/uL (150-450) [facility] [place] [facility] MPV 7.6 fL (7.1-10.7) [facility] [place] [facility] ID Date Data Source [id number] 12/25/2020 12:58:31 PM EDT [facility] Name Value Range Interpretation Code Description Data Lavinia rce(s) Supporting Document(s) IR IS ARTERIOGRAM EXTREMITY SINGLE LEFT [facility] ID Date Data Source [id number] 12/25/2020 12:48:[address] [facility] INFORMATIONPatient MRN Name Date of Age Gend*PT [id number] Nguyen Ibarra 1935 85 years F SDCXPT Location Admission Date/Time Visit ID Attending [id number] 12/24/20 1107 --- Isabella Sparrow MD([id number]) EPI ID CSN Admitting Provider [id number] Isabella Sparrow MD([id number]) Attestation signed by Isabella Sparrow MD at 12/25/2020 12:48 PMI saw and evaluated the patient and reviewed note. I agree with the history,physical and medical decision makingSignature: Isabella Sparrow MDDate: December 25, 2020Time: 12:48 PM Inpatient History & PhysicalSumauricio IbarraN:[id number] and Plan:Principal Problem: Ischemia of left lower [...] sulfate. 8. GERD -Protonix. 9. Pain management -[place] ordered. Has Gabapentin.Chief Complaint: Left leg painHPI: [...] PFA/SFA endarterectomy with Xenosure patch angioplasty leftEIA, CREAM HAULER, PFA and SFA in March 2019. She [...] disease Hiatal hernia History of GI bleed [place] (hard of hearing) Hyperlipidemia Hypertension Macular degeneration [...] chloride (MICRO-K) 10 MEQ CR capsule Tiotropium [place] Monohydrate (Spiriva Respimat) 2.5 MCG/ACT AERSAllergies:Ciprofloxacin, Penicillins, [...] rce(s) Supporting Document(s) ID Date Data Source [id number] 12/25/2020 05:20:03 AM EDT [facility] [place] [facility] Name Value Range Interpretation Code Description Data [facility] Supporting Document(s) SODIUM 142 mmol/L (136-145) [facility] [place] [facility] POTASSIUM 4.0 mmol/L (3.6-5.2) [facility] [place] [facility] CHLORIDE 105 mmol/L (100-108) [facility] [place] [facility] CO2 27 mmol/L (22-31) [facility] [place] [facility] ANION GAP 10 mmol/L (7-16) [facility] [place] [facility] UREA NITROGEN 23 mg/dL (7-24) [facility] [place] [facility] CREATININE 0.79 mg/dL (0.60-1.00) [facility] [place] [facility] BUN/CREAT RATIO 29.1 RATIO (10.0-20.0) H [facility] GLUCOSE 126 mg/dL (70-99) H [facility] [place] [facility] CALCIUM 8.9 mg/dL (8.4-10.2) [facility] [place] [facility] GFR >60 ml/min/1.73m2 (>59) [facility] [place] [facility] GFR ( AMER) >60 ml/min/1.73m2 (>59) [facility] [place] [facility] GFR INTERPRETATION [facility] --NORMAL KIDNEY FUNCTION OR MILD DISEASE - GFR >OR= 60CHRONIC KIDNEY DISEASE - GFR 15 - 59RENAL FAILURE - GFR <15 Est. GFR calculation based on the MDRDstudy equation, which assumes a steadystate for creatinine. Est. GFR should notbe used for medication dosing. ID Date Data Source [id number] 12/25/2020 03:42:06 AM EDT [facility] [place] [facility] Name Value Range Interpretation Code Description Data Lavinia rce(s) Supporting Document(s) APTT >150.0 s (22.0-34.3) HH [facility] [place] [facility] ALERTED CRITICAL RESULT TOPAUL([id number]) D4([id number]) AT 0340 ON 12/25/20 [place] [address] ID Date Data Source [id number] 12/25/2020 03:04:59 AM EDT [facility] [place] [facility] Name Value Range Interpretation Code Description Data [facility]avin[facility] rce(s) Supporting Document(s) WBC 8.5 10*3/uL (4.1-11.0) [facility] [place] [facility] [place] RBC 3.19 10*6/uL (4.00-5.40) L [facility] [place] [facility] HGB 10.0 g/dL (12.0-16.0) L [facility] [place] [facility] HCT 29.9 % (36.0-47.0) L [facility] [place] [facility] PERFORMED AT [address] [place] [address] N Y [address] MCV 93.8 fL (80.0-95.0) [facility] [place] [facility] MCH 31.3 pg (27.0-32.0) [facility] [place] [facility] MCHC 33.4 g/dL (32.0-36.0) [facility] [place] [facility] RDW 15.8 % (10.5-14.5) H [facility] [place] [facility] PLT 204 10*3/uL (150-450) [facility] [place] [facility] MPV 7.9 fL (7.1-10.7) [facility] [place] [facility] ID Date Data Source [id number] 12/25/2020 01:14:14 AM EDT [facility] [place] [facility] Name Value Range Interpretation Code Description Data [facility]avin[facility] rce(s) Supporting Document(s) APTT >150.0 s (22.0-34.3) HH [facility] [place] [facility] ALERTED CRITICAL RESULT BERTAKELA([id number] ) D4([id number]) AT 0110 ON 12/25/20 [place] [address] ID Date Data Source [id number] 12/24/2020 02:12:56 PM EDT [facility] [place] [facility] SPEC EXP DATE 1PATI ENT ABO/Rh O POSITIVEANTIBODY SCREEN NEGATIVETESTING SITE PERFORMED AT [address] [place], [place] [address]BLOOD BANK COMMENT BLOOD TYPE CONFIRMED. Name Value Range Interpretation Code Description Data [facility]avinia rce(s) Supporting Document(s) TYPE AND SCREEN [facility] [place] [facility] ID Date Data Source [id number] 12/24/2020 01:50:52 PM EDT [facility] [place] [facility] Name Value Range Interpretation Code Description Data [facility] rce(s) Supporting Document(s) NT PRO BNP 180 pg/mL (0-450) [facility] [place] [facility] ID Date Data Source [id number] 12/24/2020 01:50:52 PM EDT [facility] [place] [facility] Name Value Range Interpretation Code Description Data [facility] rce(s) Supporting Document(s) SODIUM 141 mmol/L (136-145) [facility] [place] [facility] POTASSIUM 3.7 mmol/L (3.6-5.2) [facility] [place] [facility] CHLORIDE 107 mmol/L (100-108) [facility] [place] [facility] CO2 29 mmol/L (22-31) [facility] [place] [facility] ANION GAP 5 mmol/L (7-16) L [facility] [place] [facility] UREA NITROGEN 23 mg/dL (7-24) [facility] [place] [facility] CREATININE 0.84 mg/dL (0.60-1.00) [facility] [place] [facility] BUN/CREAT RATIO 27.4 RATIO (10.0-20.0) H [facility] GLUCOSE 226 mg/dL (70-99) H [facility] [place] [facility] CALCIUM 9.1 mg/dL (8.4-10.2) [facility] [place] [facility] TOTAL PROTEIN 7.4 g/dL (6.4-8.2) [facility] [place] [facility] ALBUMIN 3.6 g/dL (3.2-4.5) [facility] [place] [facility] GLOBULIN 3.8 g/dL (2.7-4.3) [facility] [place] [facility] ALB/GLOB RATIO 0.9 RATIO [facility] [place] [facility] ALKALINE PHOSPHATASE 72 U/L (45-117) [facility] BILIRUBIN,TOTAL 0.3 mg/dL (0.0-1.0) [facility] [place] [facility] PLEASE NOTE:Total bilirubin results may be falselyelevated in patients taking Eltrombopag. AST (SGOT) 10 U/L (11-39) L [facility] [place] [facility] ALT (SGPT) 14 U/L (12-78) [facility] [place] [facility] GFR >60 ml/min/1.73m2 (>59) [facility] [place] [facility] GFR ( AMER) >60 ml/min/1.73m2 (>59) [facility] [place] [facility] GFR INTERPRETATION [facility] --NORMAL KIDNEY FUNCTION OR MILD DISEASE - GFR >OR= 60CHRONIC KIDNEY DISEASE - GFR 15 - 59RENAL FAILURE - GFR <15 Est. GFR calculation based on the MDRDstudy equation, which assumes a steadystate for creatinine. Est. GFR should notbe used for medication dosing. ID Date Data Source [id number] 12/24/2020 01:30:01 PM EDT [facility] [place] [facility] Name Value Range Interpretation Code Description Data [facility]avinia rce(s) Supporting Document(s) APTT 25.1 s (22.0-34.3) [facility] [place] [facility] PERFORMED AT [address] [place] [address] N Y [address] ID Date Data Source [id number] 12/24/2020 01:30:01 PM EDT [facility] [place] [facility] Name Value Range Interpretation Code Description Data [facility] rce(s) Supporting Document(s) PT 11.1 s (9.2-11.9) [facility] [place] [facility] PERFORMED AT [address] [place] [address] N Y [address] INR 1.06 [facility] [place] [facility] SUGGESTED THERAPEUTIC RANGES USING INR F ORSTABILIZED ANTICOAGULATED PATIENTS:STANDARD DOSE THERAPY INR 2.0-3.0 DVT, PE, PREVENT DVT OR EMBOLISMHIGH DOSE THERAPY INR 2.5-3.5 PREVENT EMBOLISM FROM MECHANICAL HEART VALVE ID Date Data Source [id number] 12/24/2020 01:24:14 PM EDT [facility] [place] [facility] Name Value Range Interpretation Code Description Data [facility] r[facility](s) Supporting Document(s) WBC 6.9 10*3/uL (4.1-11.0) [facility] [place] [facility] [place] RBC 3.45 10*6/uL (4.00-5.40) L [facility] [place] [facility] HGB 10.8 g/dL (12.0-16.0) L [facility] [place] [facility] HCT 33.1 % (36.0-47.0) L [facility] [place] [facility] PERFORMED AT [address] [place] [address] N Y [address] MCV 95.9 fL (80.0-95.0) H [facility] [place] [facility] MCH 31.3 pg (27.0-32.0) [facility] [place] [facility] MCHC 32.6 g/dL (32.0-36.0) [facility] [place] [facility] RDW 15.4 % (10.5-14.5) H [facility] [place] [facility] PLT 202 10*3/uL (150-450) [facility] [place] [facility] MPV 8.0 fL (7.1-10.7) [facility] [place] [facility] ID Date Data Source [id number] 12/24/2020 11:06:00 AM EDT [facility] Name Value Range Interpretation Code Description Data [facility]avin[facility] rce(s) Supporting Document(s) SARS coronavirus 2 RNA [Presence] in Res piratory specimen by STEPH with probe detection NOT DETECTED [facility] This lab was reported by [facility] [place] [facility]. ID Date Data Source [id number] 12/24/2020 12:34:33 PM EDT [facility] [place] [facility] Name Value Range Interpretation Code Description Data Lavinia rce(s) Supporting Document(s) SPECIMEN DESCRIPTION [facility] INFLUENZA A (NEG) Lab [facility] INFLUENZA B (NEG) Lab [facility] RSV (NEG) [facility] [place] [facility] COMMENT [facility] [place] [facility] THE U.S. FDA HAS MADE THIS TEST AVAILABL EUNDER AN EMERGENCY USE AUTHORIZATION(EUA) FOR THE DETECTION AND/OR DIAGNOSISOF THE VIRUS THAT CAUSES COVID-19.PERFORMED AT [address] [place] [address] COVID19 RESULT (NDET) [facility] [place] [facility] THIS ASSAY AMPLIFIES AND DETECTSTHE TARG ET RNA USING REAL-TIME PCR.TESTING PERFORMED ON [employer] GENEXPERTNEGATIVE 2019_NCOV RT-PCR RESULTS DONOT PRECLUDE 2019_NCOV INFECTION ANDSHOULD NOT BE USED THE SOLE BASISFOR PATIENT MANAGEMENT DECISIONS. FIRST TEST [facility] [place] [facility] EMPLOYED IN [employer] [facility] SYMPTOMATIC [facility] [place] [facility] DATE OF SYMPT ONSET [facility] HOSPITALIZED [place] [facility] ICU [facility] [place] [facility] CONGREGATE CARE SET [facility] [place] [facility] ID Date Data Source [id number] 12/17/2020 02:08:00 PM EDT [facility] ([facility]) Name Value Range Interpretation Code Description Data Lavinia rce(s) Supporting Document(s) Bypass Graft Ultrasound Lower Extremity Left Laboratory test result [facility] ([facility]) ID Date Data Source [id number] 10/26/2020 01:11:[address] [facility] INFORMATIONPatient MRN Name Date of Age Gend*PT [id number] Nguyen Ibarra 1935 85 years F IPPT Location Admission Date/Time Visit ID Attending [id number] 10/19/20 1153 --- --- EPI ID CSN Admitting Provider [id number] Zuhair Levine MD([id number]) [place] [address] OPERATIVE REPORT OPNAME: NGUYEN IBARRA [place] Ibrahim#: [id number] #: [id number] ADMISSION DATE: 10/19/2020OB: 1935 SEX: F PT TYPE: I SURACCT #: [id number] CARE PHYSICIAN: HUGH FINNTE OF OPERATION: 021PREOPERATIVE [...] a warm foot,good pulses.MIGUEL Saha/[place] Job #: [id number] DOC #: [id number] Name Value Range Interpretation Code Description Data Lavinia rce(s) Supporting Document(s) ID Date Data Source [id number] 10/22/2020 02:43:[address] [facility] INFORMATIONPatient MRN Name Date of Age Gend*PT [id number] Nguyen Ibarra 1935 85 years F IPPT Location Admission Date/Time Visit ID Attending [id number] 10/19/20 1153 --- --- EPI ID CSN Admitting Provider [id number] Zuhair Levine MD([id number]) Attestation signed by Zuhair Levine MD at 10/22/2020 2:43 PM. I agree with the history, physical and medical decision makingSignature: HANG Sahaate: October 22, 2020Time: 2:43 PM Discharge SummarySuzaroya Ibarra85 yearsMRN: [id number]//[id number] Date: 10/19/2020 11:53 AMDischarge Date: 10/22/20Admitting Physician: [...] Name Value Range Interpretation Code Description Data [facility](s) Supporting Document(s) ID Date Data Source [id number] 10/21/2020 07:48:17 AM EDT [facility] [place] [facility] Name Value Range Interpretation Code Description Data [facility](s) Supporting Document(s) WBC 8.0 10*3/uL (4.1-11.0) [facility] [place] [facility] [place] RBC 3.01 10*6/uL (4.00-5.40) L [facility] [place] [place] [facility] HGB 9.3 g/dL (12.0-16.0) L [facility] [place] [place] [facility] HCT 27.9 % (36.0-47.0) L [facility] MCV 92.6 fL (80.0-95.0) [facility] MCH 31.0 pg (27.0-32.0) [facility] MCHC 33.4 g/dL (32.0-36.0) [facility] RDW 15.7 % (10.5-14.5) H [facility] [place] [facility] PLT 153 10*3/uL (150-450) [facility] MPV 7.6 fL (7.1-10.7) [facility] ID Date Data Source [id number] 10/21/2020 07:39:29 AM EDT [facility] Name Value Range Interpretation Code Description Data Lvainia rce(s) Supporting Document(s) SODIUM 145 mmol/L (136-145) [facility] POTASSIUM 4.0 mmol/L (3.6-5.2) [facility] CHLORIDE 112 mmol/L (100-108) H [facility] CO2 27 mmol/L (22-31) [facility] ANION GAP 6 mmol/L (7-16) L [facility] UREA NITROGEN 13 mg/dL (7-24) [facility] CREATININE 0.73 mg/dL (0.60-1.00) [facility] BUN/CREAT RATIO 17.8 RATIO (10.0-20.0) [facility] GLUCOSE 100 mg/dL (70-99) H [facility] CALCIUM 7.9 mg/dL (8.4-10.2) L [facility] GFR >60 ml/min/1.73m2 (>59) [facility] GFR ( AMER) >60 ml/min/1.73m2 (>59) [facility] GFR INTERPRETATION [facility] --NORMAL KIDNEY FUNCTION OR MILD DISEASE - GFR >OR= 60CHRONIC KIDNEY DISEASE - GFR 15 - 59RENAL FAILURE - GFR <15 Est. GFR calculation based on the MDRDstudy equation, which assumes a steadystate for creatinine. Est. GFR should notbe used for medication dosing. ID Date Data Source [id number] 10/21/2020 03:58:49 AM EDT [facility] [place] [facility] UNIT NUMBER [id number] LOOD COMPONENT TYPE LR PR1 PLATELETSUNIT DIVISION 00STATUS OF UNIT TRANSFUSEDTRANSFUSION STATUS OK TO TRANSFUSE Name Value Range Interpretation Code Description Data Lavinia rce(s) Supporting Document(s) TRANSFUSE PLATELETS [facility] [place] [facility] ID Date Data Source [id number] 10/20/2020 09:16:[address] [facility] INFORMATIONPatient MRN Name Date of Age Gend*PT [id number] Nguyen Ibarra 1935 85 years F IPPT Location Admission Date/Time Visit ID Attending Provider --- --- --- --- EPI ID CSN Admitting Provider [id number] ---AirwayPatient location during procedure: ORUrgency: electiveDifficult airway: [...] rce(s) Supporting Document(s) ID Date Data Source [id number] 10/20/2020 08:05:[address] [facility] INFORMATIONPatient MRN Name Date of Age Gend*PT [id number] Nguyen Ibarra 1935 85 years F IPPT Location Admission Date/Time Visit [facility] 1153 --- Zuhair Levine MD([id number]) EPI ID CSN Admitting Provider [id number] Zuhair Levine MD([id number]) Attestation signed by Zuhair Levine MD at 10/20/2020 8:05 AMI saw and evaluated the patient and reviewed note. I agree with the history,physical and medical decision makingSignature: Zuhair Levine MDDate: October 20, 2020Time: 8:05 AM --Inpatient History & Physical ExamSharjeet [id number] CARE PROVIDER: Hugh UrbinaATTENDING: Zuhair Levine MDINFORMANT: The source is the patient and the patient is reliable. Also medicalrecords.CC: I need to have bypass on my left leg. Increased left leg pain x3 weeks.History of Present Illn ess:This is a 85 years female who [facility] to [facility], being wellknown to Dr. Levine is having peripheral vascular disease. She has previouslybeen seen by Dr. Fitzpatrick, vascular surgeon while in [place]. She has hadmultiple stents and angioplasties done [...] disease Hiatal hernia History of GI bleed [place] (hard of hearing) Hyperlipidemia Hypertension Macular degeneration [...] old Vancomycin Itching Received in 2017 at [facility] and 1 dose here -- no [...] file Gets together: Not on file Attends gnosticist service: Not on file Active member of [...] upper andlower.Neck: Denies thyroid trouble.Cardiac: CAD s/p [place] x 3.Stents in heart 2017Cardiologist: Bertin Zhou [...] Denies HIV.Neurologic:Positive stroke, had one here at [facility] in 2017. Symptoms only lasted a [...] rce(s) Supporting Document(s) ID Date Data Source [id number] 10/20/2020 06:59:20 AM EDT [facility] [place] Name Value Range Interpretation Code Description Data Lavinia rce(s) Supporting Document(s) POC NOVA GLU 106 mg/dL (70-99) H [facility] [place] [facility] [place] [facility]FORMED BY [facility] STAFF ID Date Data Source [id number] 10/22/2020 12:50:07 AM EDT [facility] [place] [facility] SPEC EXP DATE 10/21/2020ATI ENT ABO/Rh O POSITIVEANTIBODY SCREEN NEGATIVETESTING SITE PERFORMED AT [address] [place] [address] [id number] BANK COMMENT BLOOD TYPE CONFIRMED.UNIT NUMBER [id number] COMPONENT TYPE LEUKOPOOR RED CELLSUNIT DIVISION 00STATUS OF UNIT TRANSFUSEDTRANSFUSION STATUS OK TO TRANSFUSECROSSMATCH RESULT COMPATIBLEUNIT NUMBER [id number] COMPONENT TYPE LEUKOPOOR RED CELLSUNIT DIVISION 00STATUS OF UNIT REL F ROM ALLOCTRANSFUSION STATUS OK TO TRANSFUSECROSSMATCH RESULT COMPATIBLE Name Value Range Interpretation Code Description Data Lavinia rce(s) Supporting Document(s) TYPE AND SCREEN [facility] [place] [facility] ID Date Data Source [id number] 10/19/2020 10:01:00 PM EDT [facility] Name Value Range Interpretation Code Description Data Lavinia rce(s) Supporting Document(s) SODIUM 142 mmol/L (136-145) [facility] [place] [facility] POTASSIUM 3.6 mmol/L (3.6-5.2) [facility] [place] [facility] CHLORIDE 107 mmol/L (100-108) [facility] [place] [facility] CO2 28 mmol/L (22-31) [facility] [place] [facility] ANION GAP 7 mmol/L (7-16) [facility] [place] [facility] UREA NITROGEN 16 mg/dL (7-24) [facility] [place] [facility] CREATININE 0.88 mg/dL (0.60-1.00) [facility] [place] BUN/CREAT RATIO 18.2 RATIO (10.0-20.0) [facility] GLUCOSE 209 mg/dL (70-99) H [facility] [place] [facility] CALCIUM 8.4 mg/dL (8.4-10.2) [facility] TOTAL PROTEIN 6.8 g/dL (6.4-8.2) [facility] ALBUMIN 3.5 g/dL (3.2-4.5) [facility] GLOBULIN 3.3 g/dL (2.7-4.3) [facility] [place] [facility] ALB/GLOB RATIO 1.1 RATIO [facility] [place] [facility] ALKALINE PHOSPHATASE 67 U/L (45-117) [facility] BILIRUBIN,TOTAL 0.4 mg/dL (0.0-1.0) [facility] [place] [facility] PLEASE NOTE:Total bilirubin results may be falselyelevated in patients taking Eltrombopag. AST (SGOT) 11 U/L (11-39) [facility] [place] [facility] ALT (SGPT) 22 U/L (12-78) [facility] GFR >60 ml/min/1.73m2 (>59) [facility] GFR ( AMER) >60 ml/min/1.73m2 (>59) [facility] GFR INTERPRETATION [facility] --NORMAL KIDNEY FUNCTION OR MILD DISEASE - GFR >OR= 60CHRONIC KIDNEY DISEASE - GFR 15 - 59RENAL FAILURE - GFR <15 Est. GFR calculation based on the MDRDstudy equation, which assumes a steadystate for creatinine. Est. GFR should notbe used for medication dosing. ID Date Data Source [id number] 10/19/2020 10:01:00 PM EDT [facility] [place] [facility] Name Value Range Interpretation Code Description Data Lavinia rce(s) Supporting Document(s) MAGNESIUM 2.0 mg/dL (1.7-2.4) [facility] [place] [facility] ID Date Data Source [id number] 10/19/2020 09:42:53 PM EDT [facility] [place] [facility] Name Value Range Interpretation Code Description Data Lavinia rce(s) Supporting Document(s) PT 11.7 s (9.2-11.9) [facility] [place] [facility] INR 1.12 [facility] [place] [facility] SUGGESTED THERAPEUTIC RANGES USING INR F ORSTABILIZED ANTICOAGULATED PATIENTS:STANDARD DOSE THERAPY INR 2.0-3.0 DVT, PE, PREVENT DVT OR EMBOLISMHIGH DOSE THERAPY INR 2.5-3.5 PREVENT EMBOLISM FROM MECHANICAL HEART VALVE ID Date Data Source [id number] 10/19/2020 09:42:53 PM EDT [facility] [place] [facility] Name Value Range Interpretation Code Description Data Lavinia rce(s) Supporting Document(s) APTT 25.6 s (22.0-34.3) [facility] [place] ID Date Data Source [id number] 10/19/2020 09:32:22 PM EDT [facility] [place] Name Value Range Interpretation Code Description Data Lavinia rce(s) Supporting Document(s) WBC 7.3 10*3/uL (4.1-11.0) [facility] [place] [facility] [place] RBC 3.58 10*6/uL (4.00-5.40) L [facility] [place] [facility] HGB 11.3 g/dL (12.0-16.0) L [facility] [place] [facility] HCT 33.2 % (36.0-47.0) L [facility] [place] [facility] MCV 92.7 fL (80.0-95.0) [facility] [place] [facility] MCH 31.6 pg (27.0-32.0) [facility] [place] [facility] MCHC 34.1 g/dL (32.0-36.0) [facility] [place] [facility] RDW 14.8 % (10.5-14.5) H [facility] [place] [facility] PLT 190 10*3/uL (150-450) [facility] [place] [facility] MPV 7.5 fL (7.1-10.7) [facility] [place] [facility] ID Date Data Source [id number] 10/19/2020 12:51:25 PM EDT [facility] Name Value Range Interpretation Code Description Data Lavinia rce(s) Supporting Document(s) EKG [facility] NWIUTx1xTiIQUoJoy7EiKyBpAYYgWY1tcfl5T9F8aIAdC8EmcEIfm8yeN1EfN1IiEPLzFDGOOG4VjGIs jb2 [file] P/71v/6OZ4tn2mzOs/7j//windows infrastructure engineer/+m//fO//PMf/59/as5esRQ/81836in9/o1r028JpsMxSaGTpEXEhPES uwpGTV4to/hVARpY76CPHwQeQjMYDilg9V8xr/lFp4jTHR1JXj4Rw84VoNm6EUxMWCERWsfSOZFzjaXB yL7TSiGZWKeJyXG2lGQOUIXnowqLMMHvllGAQGgbwb [file] HBpvfqCydft5KrwSYa18gNgekV+uee/pmm6hQg3+Crawford z2k6rcLiN6lFh4on6tE1j4D+QbmOi9hI9w9cy5wttra3Yp+jy9EO+ujnd7/gz7r5BgqFTulkcX5p2y6e qO/Nho1ieqKjzHi2dXdrbpVd3cGLIGYMeX2OsqN3uIy45J8Jw7anFTixjzldj6fjbK4gpxW+cT8SyoPj ud3/1FzDS3081zcoooPCmyO0vUtp6XJjHtEv886EPg 6PxuX1/nd+w21hv3ztxF2EE976kiy41/2w72/o49tmfzhzYM1y7gMLBv8jV9yiL+3f42e/5xc7VO5691 gOZ8aAqqN+voc8A6+kq0bA2z0/O5nWe8tHuQMpY5eXcnbin0EIu7gdoAb0aEd66KbHGP30fL/G30M2e4 U5frxOhFtpsjknciR9M3Kyt3/2Vc396VxGGKCUqBP9 7XkN+1R/OY1dTQOwYHDLBY+zF9QKxhd1b9iWS9wESDRIpRSeUdYnGkgLCdK91if74VZ/el7GqPFuL+DP kc0LqDd4zd2vgHenS+TPiC/H8op2bP70dCoCFJsIxQ8YOlZtiAz7K6ED9DGpuE6ZM2Bay45eiLNsiNRf xmpt46OQjzVmKXjd3zjzOw3AbJIkm+MBNpCP1suT0s 8ruG/V8em8iH3afoy4x9r3k5+omZ6zRl5H5IY92XvU112A548U782I25g2SOYCy0acxIe+/BPRs4Kil2 Anu4mLhVWxuofDPP6Y164W202Y087M58pk0YWyp+OHxx+YHbyReU7eu1xc1ZVla+HNyqkUtBxJFMQ8p7 sck6B2XseU1nWwlmt6Z18vv8D87n07V/rmH/ru2Fdp hHG/Kjo2rTV2EuVdG6bgtwetvcK+zVsd6r91rO+mKhss19Q42feXVTkL8uBZ7W1uGaKkGmGXp4AOB+Me zftbt/h4ZQ23P23a9ThpHT+W0SfoiU6sCmmu49LzgXdHolznCul5zXo42aMj+XNzJ9hZ5j6topyS3Wtt +kwveFQ20wc2R8Xp1hiPDZhnqWL/f3anUE/b1a1/T4 yhgmK3BJ+/RBXHf0/yJboK12d2+NlqA85R4+B0iJx73PJ815E0p5pJzweqw/BZZgCXbA+no9naPM/K7f /F0nVHuKehHkv+br/FlgC+00X+vC7ps4cBGC01VdCDXMPGE8k91/mn/xR/JbXpMwrcn0xmsj0X8BSoGx MIXING ROLL OPERATOR/iHe/20Yf+uwRaslrkjsuy4ztu8ZN/LLw/+fpyPu V/ItC7e3B6GG+2zdf8a4ps9z04kjfkvdP3BKdHa0plpYlavApbrb/Zee+uE/LmvXs+RY1Octw5Be7ko2 JMWjJvaDoO3d5P0105wak2lnR2+FnWuaOKsoqo3e6J8ItzFkaIwTf85FugghcnPxG+6m3pg8wcdxPcny /lbchnnUm3B151b0ckUXZxcHvglWuAWhreBoU6mrlu I7/Tayla/3yuTNlAH6QlMMKWkUsAF8gKrIlashKm91M0dBUrCKQSGR2GQ6id/isu866N+UEvYg62y33R+B HdCCPkXRXl9FriS+35UvHIm2xzS1dV60Xpnu/Sll/avMWRGhfT98VjN0s1qmY4aGWDq+eMl86qvwtqLy GC+H2gJCT11i2soibCmA0/8Z5UCKwRpZ+9kSr9bO7H HgBU3KCgS3dol48F7Z9sZYfEkM8bpXNhSq14zUscFG/Xuv3sN6yW+DU3q1j7roc7aTcT/zwis5mGbera kXD93/4qF5Bg/d5+Gh+kN67AyDB44wNpUd2/6Sd0yAbERi+js+7/07X2p48Psj4/0o3TY2Zu1mWK3y2x Tv/t4zliuKdf2gfnYt8X+TOis3mrrNQ5C1JXZys93L e+x9WcABALAZMQm0bUuSyDqrA/NcNT2+29e9787Q0d8jjuvkVOzz8OzB9RsYkev0Pmn7pmK9An4iTM/6 KSrofMHl6Iva8bw8ekcfaKVz3Efc1+nvdOsA8fxnX/fX+iS1cbbU/Mt+3OlmZ3n/bj/rHZ66UZx4+/hb 08P/d02P5/lZH005Io8a6u/bcsqdkpu800g1ANe2+m fNT2wl+aPdWi4UavjXvSEaQR/FvEWNI6nx250Jpo+K4b6b8f8t9DBN12ZIRe114EoYpy1/Tbr1ak1t0Q nmszSnT6pQzWoSu2I73oWExzYLvmUwT6cYnZcviwJelbtzSERG+Bytkh0/FXW5OUe8RIPBnJQN1auKkL +au3HUrcrSiMXQPqgYulRxRV0F+runMi02LVsPKu/T LtHxU+PRTw7/nXZeBTGBC0gSO31SMpc7OpbD95Sb9mv78XBXdKTLCZijyBgqPgCcEwiQcqRbLGvXLuWR MhZzYZ6Lr89RyyGWotl6UxyEudvIWetJm93z5oO3x/CdF2AQbiPVaH427ajnIC2OAg25HcsJPhB51FgL 0nNZBmZgDla+PGyBguxTHC2p+EXhq7kg37Y9PO1+ex 0pYSra2XTyt8UVZj2Q0finOSnHOiqJ4ckm3OsCdzOdaHTmRDSEWL88TKmfI3xJwXnJW17ZYR3vwumt/P Fn2No79kZV4GzS+ky0gy9+lKt62NF8qch/xhNZnGJtAw7ZdX8ODJvoSfr3ZMN13vL2Y5+kZbzUW5xd1u z/0wlhspw6hY04cyZgx6k5peLRU9koe72/0gOq0trN 8TCfROJXKSshUfx6hlkrbdp3qxN8pi/wcFwZM4kRFL1s2T6C/n2q5YqQA9u7+0hW57A2iS7H3OZEOuTC ozHe5vTObgeh9S66e4K9tuvzLB2lB6r0aQqnXcjRHl5j5t6Lueax1u3Ht6eqbo17Ey/fl67WI4bntfOn WRten7tia2bX7zLr04aD10QALcgecG9P0ZlQSRRcR7 4kHI5DBKG5NMBMkT1/jQnfDoJe8nBwimx2ELvZsY/1mpL9/+Uy5I2RbYdY2trzG9C7c2uellGXh8AEwm XL+r+ch6c9sd494A+m/TyJ2sMfu9/+mhLRZ/2asu/s3jJi66dlhOI6Ooi7x3/olqnvbO6NmvIR2S3lIh f6Hi2Vq1P4aUuzf5FWq00KGj7HBhYoxUAWztIXzawe 0JI3SrPcVTaaUFiYNJdYgcU1nwC5xRmHc0NS2nwNWdbUSJV3fhIo4D14OFZMsfxPr1oAkwssNV1OJ7VJ eSsfgLn2FC6AfOvQiTfuo9IYbRGnON2EQLS+UWek0dbEi5Om7CVhPC6cvkRpN714zXzwIz6Ibi8LRv1g QAxpBF21mLBIvosSJu5zzfhovP/82rFrr0GP4TNJqP Z0HxwipaAkKH+P9WB51RgCHnyMqsMPshDjtzKEfMQy7LV7CMnTOBlNeb6apBgO89r68Uc6sEx9IMkY6C 9PkmG87Wm4WsvR//2QxX5sfqcklpsdAB6b0AjP/TtzxhtbiXwK3kzfY/9i0lERKL7y4YIYBZKhcBQvX+ PoyK4whoxX+Fzeg0Xf2ceQiAdSue8QAhJhT2zo09Y9 twW0QnqGly6tpxK0wSWyfFvf2ofDyJgRn85V2iw+ADtW3Uoc5EHPwjvakrkvS+XuooZpO7eg/i49GJ4y 3ZfL/xWXz+loVyxl5kbeWkmxUYic4u6K54yw0BeCA/xm2fanT0edW8Bj+/Ape6VBn5cr6ZVU0z37eLi/ 6ynkgi1e9Q8ml7M2y8C2xKcLa1Kxv5E0tXrBYH6AfJ iMl/sLd4D8khkNp3r5iPiATBp6cxp4l/EJM34u0MUp9FzkJl7cySyf2J0cdd8GNlVT9kkgGCz5/lfObt 7H4svqEl7PD83By/llf+aXvT7Y+mCf+vVr0ikOL/vML+Ff8lW3nd4q7v8pn64/rOXzmdA5y660g+d07s 6IHjC00x9B0rIUj//hs74UX7Gecgl1p+uZsx1vD2c/ mH+w+DKewgMO30tE4h0I5vWe+OT8inOlH5r+0Js3Nq2KvdW9pjaHS5y+REyejM0G1WHirk+ta1T+bl2V 9xFX1G9nDhfkpI/7ch/pQoa23HR+dpGPXWR+nNwW2xliE3qyg5cyQP0d22csaZt1//zPP/+Ik22x7Z6/ hP2sFaPKUjs/AOk5J0o0FeqgdDx5+5X97Wc8EYoHxY +ewei66004CQqs/eR657M3+osPtj//47wri/GmzN3kMhxdQVq5WhlNfo02J6q1ETuIsS/2GS9LP+fyGS /lX14ID7nyy4elq/flPthnvKzP/KKf+UU/27sX0pC55QL03Hqb2qgYqilfpgl7AEaAqB/2GS/6GS/6GS /6jdlO0iT13OY/una3k0GFg1wpTb/5vtcfUOgSO8no HPVk2RNu0DDg6+b8/I47hTLMRgSBAdbsi34mad0J/Gurc82DlS0fY8SuRsj+Nfh3qtsgM1gQB/Czcm+O 84xl9pkqWmy4IMDbyCulWCOxeTc+UHXaFGKiouyU7j/FE5t7fKlb+3EwetqUs5/ug/D8LCNya/J3/XKK qxKf++hS3RO9rCkEgNm+sM3BdmNGSGoS7oYjPzUAOR pEeMhBG6z67B3/l2gGA7WL/m79r/zdl/v8Tz7/qc20Q8o9MEl6NVDhNTv+ZXpTINTfQEeVbXuRr9y5ZH O2uT2RciGO6vtBO3YITtJQIsgnP6pV5bJB5U3VFAXNjnZG+JH4UBoHLJ8UqAi4YzonwOhHm75Gdx04Ox kQwtyv8QJaxsBc5VZv1QP3/ndsEflClxtxjLrkuRHH Ix0e78VVllx/zj6f71Ohb5MjXo1krMFLzfRMrp6llCV7gIvOhi1Gfxq4ofWz93JCoNLsBgz/RrPiftic 5FwyvkKGZI3PTDemh5POhB2WIamd1/b+QtG1t5AssnmxE5AN0eVzT049JaqjIr16QY6nGbMAxJDF6eEq DBKt/5xBcpkzSGpcyBkk+d5/7d0mVOX7qVzR/3Nulp j4RPsUSi4KdcURCYqL+YwmeZvjr0mNGAWXrZDzmBtjLwVn3oGUAKVaCAkBFNYGHcQYWZ2GXDfxPdsi5d dNGEWeciMtU0OArTROhPPXoyuFGS9VxMXfXw7L9W+wn+B/Nv+txcstvBPqDq8nXXQ/DhN8fWfkpfbbdY UY9tSRKapdsBPBZmLuvbkOi0Z9YgSW08mtHRpNDXiE Bfi3BpIBs8SXmwpfT4jTQcdgmapJFM62Oa0dcnpTlUlms1VlpKWVCUO10IH+E2bzP722svTMjvCSbVdB mtRCMtfq2lm8FYxDj5pRkcu0Ttl4fUmVedar25ombe06mo/kjaw19MeuG3pKm4alsWHel25v/iR7bYYW lUzpc09OMk3QfMDxvOdp+XKf/2UQ+fymp5MI56//6J REB4B1zsLmC5dwYEDMK9Oqw5i1EOaRvA1/bo6h6iWJvRqNnGxkaeWUbpuTpn5cfrG+1M6Kixzq12tCvz sHQhp6AVm4a6HC+Gb8ek2tSN8h9s+isGovW1LCp3NdagraxJrb+BDnawPSqo0klfN1qvGW9BpyA4NqjB mA6+PGxfRZG4tG//zdgG288nJB7J3I+IMgz6hPmp00 L6q9NRgQfB+mH0w/mH0w+2D+mblAfPdZE1N/5Eyh3cVNvGdxS4kEgw8fdFtoYQFGQ3dV8auiF9s0TQE4 rzyAkwy4GFoD/GT3E8OwNXLc6CS1e6R+CKHbd4sYajvAll7cUrhgH2uKvk3ybcK2fnOQ2i/NRCx8Kp+u aR/MP5h/nSjs5pX2Q3rKVyq3hzoWjGd7fyaOzs5gP2 x+eWzK8yuqW5c/mH4w+3N5kZgmHbuCuiIpm3XK5p1bY1nh06lbC/9QUY921K5h4CBH/khMZ1ekNVwwz6 3O5WMX/tyUF6wDh75LN7h/qBzq1fZ+40U/48U+48U+ospj37MQKwx3YIvOwbv6oPfK/PxvfrCPXexjlw k4qntqE/v0Zx/MP5h/FTl4g3KAosU11+GIlb+7sVFG c+ODfezyyaRdlVwwsFEGuA+Tsp2WJdmW5FePD1LssUWzsCSBoU+MpcH4cwtQYnsChPlGx0l5gigmUkvr 3kFrmYAJbLtnYnviz7/rLGJTpqsJueX8lxOF92+b+unPPudin/Yd9eCtnABSdoq/8cH2R/dNm6W/e+2Z /n80Ikir9az3D9mQ/oyX/bmP9md+2Z/5ZX/m3f2Zd/ dnftmf+WV/gon25rmxa+fR/jyPyt+tZ1z5u/WELX/27OLqs16B+klreLrt5yCle3cDqn0pxxU+p/Xhc1 of/GF1nfjBZk8rfQtv6CD3/W1UtChpE2H8+ZYOI75QyG3egKU379A3QY47hlpv2y9+yGhXFf8we77r/s dMv1yQ693VdFcG6hvI0MIKVyy06Bi8nnFy0LNxs9fv Y7y9/+mr8o7NgFG+Po6tVjnPhGX7cCzW02IPw9tNenhGFrpkc4hCS2LaINuGHvrDbFz1qshqLJ341MTs 6Lif26LytQU57DOMZQnV18b9hs4q9SPs9xkWloDcIPy1NN5et5DGLLbgW9d7D0FtcBHc/xhh113azIGS c/EqwSgcDuBfnf30/F39+Ls6P/fRx9/Vj7+rH39X5+ c+icpE4uJ7dN1cl01d+2Cf+1s55Kx1RGTI1mZoG2g9UN79K7B3xINvyVqaNS/6FS4uvn50AtEKxpxM/u 9y7RQlJAVE702e9kI5x/mnv/icS3yw/cE+34D78Wv0ZZRZvawDuiqtx8dVR/YuqhnAccvrc5zBO/Oufu Zd/gn51u2aey/Tch48eXa+7KIfu+xATcembmeKNy8y L9fFEjjcf69aGc+84Qfy8aYWoqmCfwzDSJeLyV9wq69bJzh77DE25goZ19z0/cE+fbYEQcifrDAm17l8 8XfV+R6g5e/MCDERMOTT+bj7+kY68IDj6twp6eA33ZSjo/Z4hykJi5kveOg9izE8U6y7rJRyogklc8fd3qe3jrE t0hujpTVlf4cocuY44YhL6pjOdc9RG9/DaB7vfvvYF wISd728Lz/t75+5kAZ84Mv/d3mPlh+K56wxZzd51mNDfnhF6AapQ/+t9lm+vj5RSDdzntrkeVKU+qX/u 7VPf3d+4RNf/faM/8p2gBZZ9/3XpX0d+/12/WcvpziSu/0eiwR829rH5h6r7mNQpm/0QcYR0CA+2B8P8 jLDdh3ZwOQJcBD0oFl5s2UcdvW/71I//Pf//o9Rw75 X//7MNCjQP1se/r8N3KQ3tA1HYrhGRkD1yR4CQ3vt5Gtiai7349al0Taptz5648th7Kgrse61009f/Pu kst93265g/Eyonw95140t6vzIfq54S1mo1idPjy75A0vg6fgAzw49f8x6c48h2f6400o2e5998s9y038 7e5t/WfeS9gKTdBW4Rwoh4+h+zuFGeP0I2tI89HS0I 2U88BKYyaT9dUkzbHoXLtI4wJ5hE/Lduiw4pm5o+6Vfclm2nx3q+3Jtllq7yg30+2Pdyci6sp72+7Nuz ep2rs22+0miyja4zC6a+9ohbny6gO3d+2xsanp7rd6pme17r2q6e81x0a2968f5g2303n8sgF661RWvI E9Qa+MdgQ9v00vpZaLPEmUpSh3F/7J6lakGSaKilRK y9kyVqxZMkF3Uc04r+4Vkqxj6xf0q+9Hvczy7hc8u+5Xsfty0sm55+0Baktt3tc43+6Cmavi6gT3c+4t vxzn6wD8i+6yexdb3gM8r+5td2+7e9vd2+1mvfi2j8zzho7mvPmwa5o2X6DxUMMN2Re5mcC//3XWYPta y8P3pzTZ/PytR0KySx4P3L7+zr89961eytzpJ8Jh1j 6EfEG+TVnWNGCE9HA3sY7zaRr7Tud5gA5ST5orJ4ERkRWbxKyCzJLVkhTGibM3RkyL9DXlZ1VQaO4CXs h3l0Tmowk9XiNmzqW+E/eD6Rzu01B+E/oQ4DyB8Dq1Bd5NJ+LCfQLntBZqMV6m8U4Ec4T5G4sprnW9an jhtO4lGxrM79BFH9bB8Fs0Ga3Ay48Hp0WykddaN2t7 5Lvl+jygIR+SA2igazxeO/IJ+XZ5Jj5XQ+I0syfjpMhCihPlZB+Q92m7ltigb3d+hvFsGM+D1PfUh3ay bBjPhvFsGM+G+9dw/qziH9C7p4SXpG2BW7T+shwTVC3T6kfJwOAN07SuP77UaYWma3qMlvM6XQJB2wC8 /6toB/q06GEP5X4wFxLTGUl85IXj46U5VSoinSmMdP c4+krRP/lI+hs5HOyT3unyR91EL39KH+QG+jY5wDF98sM8VArERpyk29yJyira5aZW+nX1IB1IR5+N+W rj/c75tklS94V63tg+V2e8aXxRA1849Lt+9Up4RmnJgaAC0jIeQo74Jdjlss14RQ6rI6kSzvmzLi61Tw 74bluUgfWb7Pv5No5OA+LSkkD3T74Y+qZ/1C7s34ur 5qbpX+W2p+lfZcwp/auMRqV/lV/Pjn+dkAgRL960Rd0VV3hZb/peWp8+AkO71fuu4Jy9mKw3rG75vq0g +RXt+Fd/T66k/+KVQEawTx7MffVhplq4rBrFD5FM//wrs4yo/mrjy8kcL61nd/2ff/U3V+rl1klgQ27/ /8oiz/P4V09+yzr+1ajjf/qOuMsc/865ig7/9JW0+f GvZh3/03emLse/wnAHG25itcKHv93LGKt3C+hpks0Ci3rrMxj6N3dt9W1b3dEm/hqD7rgF2h+hPTwM2m W7i3xCuwTd7PafZ/1rjo0q44O2/KsaV8e/uvSGfLc8/av87/Hbyxr7fGw+0iWBetN8Vc4nfJvmh7Yl95 lhPB//2fQey5tw0tY3JF+Q75Yf/+qlIYe+Cn0V+ir0 Fene6Semr6Jbqq8YaGA6uiF439+qL+55aawxEDhbIIxen0Wzs647jcqGbEKPsRNM+eml4KcnNruKdfSu 5NDXHHKHHOPZoG/6Vzn+463UGz5zC8Y+4o2uT7Sh81Y9Y4ocvP+Q73D0D9lyW43OxrzT68kxqN67ludo X+Kt9j02ObxRQb1Oso4RLyYIrj7w4j0lSR4eKykKOz PiA7JxC1z1U3SRFO8hK6/xTsugIl59h0L/dQQ8VASoME70jbtJ5H3CpWIiLS//6tLdfvpX+UxJ/6pogV shu2HQjDRc1OlX+qZ/lXbY/C7h9N0U8ZH5+6Dsfh+KdudV0cco9G25J/vM04qQ4O+KHpCP9/k107/SlI j1EUXdqZgEmlR/dgYClfAh5Zh7Y+2Zk607k26XjrM+ Ww7/asK/rjXiEiaGJVtNLLOT4Je8dzXikCzbOyhAslN17E682O0Tb6WfSM4M+lp9znkH+YBcIIe+0vPV vQiI3IvsSOt6Yudn6Cwyb5Pmyq9JlKU0YnHJ9Kns11E+8K/rcWGekN8A+j5y31qiV4M8W90eiN9Z+k6M 90gmHWAvK6lrVLlP0f57R9bhit5/6tKQ9/vRXP1+NJ bPGcGKeQcatB3T5s+F+3fh/gHp3vqfK40PyuN34yU8RogNq0bu1taJ9Wkgvc4DL6+Yjmo6Hhlu0GHtf2 QMkc4WM1X+Cn0V+xb5Hfjo7Juya7Eakg3DoU1s0VFwEoNLIX7CwBg1Jlbh9SscjlH+Xp8s6dkUZLZL7M ZYxJBdFqgoinkUf7Ix+cm2ueifgB/LvyoacsxXjvnK jf3HC2c+Qy8Re7n/ZqeBzBAgUkhprwkVd3Itl1Q1k4gCmkZ3R/oG9E3/6tKQQ9+JuuB7EYXhU+M5/av0 F8PlikJ7Irlt/Y0ZHX+eu+PPM/9p51XR7w2yLW+emVUjDS2tR9K8OewPtC7mkS8oV+bu+OTcHY+du+OT c7f/PNO/Lm4Hf3vrs2Wzt7E68GvxU3/kuy3ZyNymVB j6o2fSqhE98hZg/auiF+OFylSyRWbODULTkW6L99Pjz+sJyDfku+Wj3/dX+nyTN7mH6DI6HN2vw0CshK xy6Gv2z2Lb59BF8sK+OFJ+3gcv/ZNLHnPeB0+2+Fkc+dLnff/ioO5VuRa+/pWuon/yFv29PiQo6u9Xpg 77j0VDFT/q95A/bN851Ib3PmGo5/c54/9elnmgNn1e Nw52lj+yE0Dyf1qL5eR+g8eY5lP9G58h2zE4lTo/pw2gQro4o8egtZG++o8ZvhyGJy/nK9l1a19zBmsY HV3S/se/mmnb41/T3B84YwmTX+lfPUW/9/VK/viSHz3SDg/Sm338uI+TcwF1YgrIinwXucipPjppPna5 Lq6T94c6kXz/2mB7kXY03iBEkmfbQM4bj/GroieOnz h+1saY4pIzruqOxpBho1idJ5uD2o91dvlAbq0RXhGV1Lbbk7uRYh3B+xy49kQZJ+LKNlDE3QwTF9RtXo +Lkit4Fypo5FGyc8OZxK6UF1F+Bn0N+rm1Swbv4wloRrh/TrpmK7dmgfmLAr+7AAZTu7S3yLsllB6qyr khq5AaCWtJD+QT7S+2zkCAmJRjjM3lrZf79zhCfOmd 4/71gBzPI+943Ur/IxnZ7T1t2fs6f+FfrfKvioa8/asV7T+pkU77gTEuIn/zJOb6z4fMz0j7cCJ8/XfB v1gwzgq4ueX/aqV/lXMp/KtV/zFo229WX/xCf8U9Ne2jr1rjbgNzt4E44av6IaYOuKLnhPefJDxAmqNk 7/lo+leXfvXVp7//6tP5G/x2680R/6rozkfSp/OR9F hRK2gY0aH36eZcLFMlDjblL9typ/r0+5E+/X1nnM5j6evS+QArmdKz985T7QsP/QtRt7KrLE+Q9/uRjn 4/0qGQK+BIsJLaoTbdd66P+iJ+pYhfKeJXKtBX+i6Cpc0yEWAyCB+QT8ihL+ULEpOYwP4KH4X+An3FIQ /Ioa/0+69Kv//u2UcFucjFuB5dO6wbZNbp9HdJQ4rr 6Jubypcq52W+E/pOw/VBxjXiX0UkwRS0Ndeewal2Xgwl26W+wQ8o2koV+JCbwxDNScofP5x2mAG+pYhf HgFBwonZBr6niG6u6sy1Df1xy+E1be5eR52r0/tZHp2avQ0z2ruT+BWfaqZQIjazD7e4qDL+pYhfKeJX ga6psYlkTS7LE0/EueRzT4DL3gYBV/yqaIFcIJ+QT8 mQ4KoxjIpva/ru6yrbxo6QF2R+Bn0N+hqur+T3Rr2aY1+Vji34Kfm35NSa55LUkk6FR7j+Dn0d+uL7oD z7tjvvPK+J0AsE2ce1phSgYinFYY8M+dp2AvaM/4ivDpi7T7W/mSIsQSmAnB8n5uyhnI0O40/g+gaub+ U9qxspwiy4vE077S5Xb1q+Carolyn/lf7Dhr+B+JWmfyVJ 6wO6/R/4Vwr/SuFfKfwrhX+l8K8U/pXuzjezp/QM5JmzZ8J1P1uV+3W69PmvN//q0q+fZk/oa7wI7Io7 Ol5nT+qY8lYbLwa3F3qSf1NL44z1w8+vIf/ZdE5zYa3/bfTz1+OuSgsto67m7M3O/cLAckT0Gbx/yuBf SzysH4xiAh3X9O51Ye4GK+Anzsoh3Ef+ioK8wCC5sV G/Beb3qEG/BraytVtStgJ7Wi3/ZiS8ThJFbkaqbGQ5fWvO17nQCnKslYxtQnqPetxtphrq2/GvJOXHvx qn7f01q92gqTouqmgW37iiqI13wP3+LnLW8UmwkT45kW1+rPafb1bsa9J//2ixnNL5j17jrmrFkL5/9d d+tvOL1+1TAs+Of/VEHv/Mj3PjB8+u+nvyr9c4ubov jLnZ8a+a2HmswT/szo5/NU/Wry0xd6rs7uR7L0xKgy/W6xiD8W5H/RbSu2Pcy8d41wFhJh+z1fE6S/+q aIfcIQ/I8/sjlTkb13sb110Rnj+get1EufutjQ7WJdMGG1eShZGvm7rDOlwSqkUs6Ly5M63spTpEGsTq zLiI557mzg5TN3cV9AR65XD+lSH/ypB/Zci/MuRfmU Vbo26JtO97dyPmoGI+pN5028xWgo9mTNvoJ/EdLBbQnc2N5FGqIW/D6ZWeG8i8zxldhaWH0VchWtqKzh HsGM/pX+WYr/hWXAjtD3SsTNhO3+9DUpbiE1Pe72+V17HQ43EU55ZOla1f3L5A/pVF+1ZDoV3Qyb+z8q +J1hGdsu3cziu32zjdcvuiux8ivQ+3FM6mb12K/MoQ dwIJxwkbQ4enr1x18/ltdz6/7c7nt/Ny4uwDWSX4ets/ci//nxg6bnS+/Ce3ToSIr5dF3zR52xDWA8gx 5AvyBbmifUW/klQjqHaN2cSQ9LBxuV/2J/8nyZ0tj3Lfc9v/VfSAvL//+ax5At89KK3SFj/wE6We5Xqm wZ7LA4vtrGBNHv9VrzxER/bEYredmUxm39X5fdaco1 HcoTi7ezFp8049ia2TNW+SD6xC3to0KWsWSPCz1OqrffdMi4Ul2Fwa20D6+6Ted51gG/sOJGwI0Otx80 S+E/bPAdzOPMIVhN5eg0nlc01Kw2DqJ/jEfcJ3Rgx4bG/kbqw3E370tFL+0dTnVV2Ny79p+Camron+JUjfu ZLLfdoX485kNN+5Yhf+zw0B3w4ipA/5ci/cuRfOeJX tfkWN59axO620jnP+ZKjkaZPKmphA752nGV+5YhfOfKvHPlXjvwrR/6VI//KXs1heJ8l2Io90MlY58Pn QV/nQtanT008cTQ+3BtkTjCLivVZmH4BD7U+Bn0N+ar8ShqBPn5rxG7w3BnP/LaEd9BZg8dtu+P6Oq6v 4/o6rq/j+wu3FD67B/X60DcUX/ErR/hKFx9phE5i2K tH/MxY8neqePLXK5Af6pqO+JUjfuWIXzniVw7/piEiTkVXtqjHW99rTB0d3+0eHW/85mK56b/g7SsF4b 19N/Cc6NaI0m61D/My3PwZ7j97R/Ys0MeH607pGc+Yr7B+0JF/Long-Term/iqfjG/W5iEFovoAC3n44Dun6Dg [file] [id number] ID Date Data Source [id number] 10/19/2020 12:31:00 PM EDT [facility] Name Value Range Interpretation Code Description Data Lavinia rce(s) Supporting Document(s) SARS coronavirus 2 RNA [Presence] in Res piratory specimen by STEPH with probe detection NOT DETECTED [facility] This lab was reported by [facility] [place] [facility]. ID Date Data Source [id number] 10/19/2020 01:48:55 PM EDT [facility] [place] [facility] Name Value Range Interpretation Code Description Data Lavinia rce(s) Supporting Document(s) SPECIMEN DESCRIPTION [facility] INFLUENZA A (NEG) [facility] [place] [facility] INFLUENZA B (NEG) [facility] [place] [facility] RSV (NEG) [facility] [place] [facility] COMMENT [facility] [place] [facility] THE [place] FDA HAS MADE THIS TEST AVAILABL EUNDER AN EMERGENCY USE AUTHORIZATION(EUA) FOR THE DETECTION AND/OR DIAGNOSISOF THE VIRUS THAT CAUSES COVID-19.PERFORMED AT [address] [place] [address] COVID19 RESULT (NDET) [facility] [place] [facility] THIS ASSAY AMPLIFIES AND DETECTSTHE TARG ET RNA USING REAL-TIME PCR.TESTING PERFORMED ON MobileDevHQID GENEXPERTNEGATIVE 2019_NCOV RT-PCR RESULTS DONOT PRECLUDE 2019_NCOV INFECTION ANDSHOULD NOT BE USED THE SOLE BASISFOR PATIENT MANAGEMENT DECISIONS. FIRST TEST [facility] [place] [facility] EMPLOYED IN HLTHCARE [facility] SYMPTOMATIC [facility] [place] [facility] DATE OF SYMPT ONSET [facility] [place] HOSPITALIZED [place] [facility] [place] ICU [facility] [place] [facility] [place] CONGREGATE CARE SET [facility] [place] [facility] [place] [facility] [place] ID Date Data Source [id number] 10/05/2020 11:32:00 AM EST [facility] ([facility]) Name Value Range Interpretation Code Description Data Lavinia rce(s) Supporting Document(s) Creatinine For GFR 0.92 mg/dL 0.55-1.30 [facility] (Va [facility]ular [facility]) Glomerular Filtration Rate Laboratory test result [facility] ([facility]) <content>Units are mL/min/1.73 m2</content>
<content></content>
<content>Chronic Kidney Disease Staging per NKF:</content>
<content></content>
<content>Stage I & II GFR >=60 Normal to Mildly Decreased</content>
<content>Stage III GFR 30- 59 Moderately Decreased</content>
<content>Stage IV GFR 15-29 Severely Decreased</content>
<content>Stage V GFR <15 Very Little GFR Left</content>
<content>ESRD GFR <15 on TECHNICAL TRANSLATOR</content>
<content></content> ID Date Data Source [id number] 10/05/2020 11:32:00 AM EST [facility] ([facility]) Name Value Range Interpretation Code Description Data Lavinia rce(s) Supporting Document(s) Urea nitrogen [Mass/volume] in Serum or Plasma 19 mg/dL 7-18 [facility] ([facility]) <content>note:<nlbl:demographic_changed> </content>
<content></content> ID Date Data Source [id number] 10/01/2020 01:01:00 PM EST [facility] ([facility]) Name Value Range Interpretation Code Description Data Lavinia rce(s) Supporting Document(s) Bypass Graft Ultrasound Lower Extremity Left Laboratory test result [facility] ([facility]) ID Date Data Source [id number] 08/11/2020 12:53:00 PM EST [facility] ([facility], ) Name Value Range Interpretation Code Description Data Lavinia rce(s) Supporting Document(s) PDFReport Laboratory test result [facility] ([facility], ) FVC-Pre 1.50 L [facility] ([facility], ) FVC-Pred 2.43 L [facility] ([facility]) FVC-%Pred-Pre 61 L [facility] ([facility]) FVC-LLN 1.74 L [facility] ([facility], ) Fev1-Pred 1.80 L [facility] ([facility]) Fev1-Pre 0.87 L [facility] ([facility]) Fev1-LLN 1.21 L [facility] ([facility]) Fev1-%Pred-Pre 48 L [facility] ([facility]) Fev6-Pred 2.29 L [facility] ([facility]) Fev6-Pre 1.50 L [facility] ([facility]) Fev6-%Pred-Pre 65 L [facility] ([facility]) Fyl1twf-Dllq 73 % [facility] ([facility]) Fev6-LLN 1.61 L [facility] ([facility]) Iiw9psx-%Pred-Pre 79 % [facility] ([facility]) Xna6pcj-Wbl 58 % [facility] ([facility]) Zyw1fxa-Jrtv 94 % [facility] ([facility]) Nlg1plz-ICE 63 % [facility] ([facility]) Ktr5ubo-Nnz 100 % [facility] ([facility]) FEFMax-Pred 4.39 L/E/sec [facility] ([facility]) Sds2dki-%Pred-Pre 106 % [facility] ([facility]) FEFMax-Pre 3.20 L/E/sec [facility] ([facility]) FEFMax-%Pred-Pre 72 L/E/sec [facility] ([facility]) Tof1913-Wvz 0.44 L/E/sec [facility] ([facility], ) Iwn7477-Qmks 1.20 L/E/sec [facility] ([facility]) FEFMax-LLN 2.68 L/E/sec [facility] ([facility]) Yvf0320-%Pred-Pre 36 L/E/sec [facility] ([facility]) Iyr8226-CRX -0.04 L/E/sec [facility] ([facility]) Itq6pdz6-Xewj 77 % [facility] ([facility], ) ExpTime-Pre 5.49 sec [facility] ([facility]) Rtk0hgx0-Xwe 58 % [facility] ([facility]) Hyv9hpd4-%Pred-Pre 75 % [facility] ([facility]) Grz4xic5-BCH 68 % [facility] ([facility]) ID Date Data Source [id number] 07/08/2020 12:44:00 PM EST [facility] ([facility]) Name Value Range Interpretation Code Description Data Lavinia rce(s) Supporting Document(s) Bypass Graft Ultrasound Lower Extremity Left Laboratory test result [facility] ([facility]) ID Date Data Source [id number] 05/07/2020 11:16:[address] [address] [facility] INFORMATIONPatient MRN Name Date of Age Gend*PT [id number] Nguyen Ibarra 1935 84 years F IPPT Location Admission Date/Time Visit ID Attending [id number] 04/28/20 0538 --- --- EPI ID CSN Admitting Provider [id number] Zuhair Levine MD([id number]) Attestation signed by Zuhair Levine MD at 05/07/2020 11:16 AMI saw and evaluated the patient and reviewed note. I agree with the history,physical and medical decision makingSignature: HANG Sahaate: May 07, 2020Time: 11:16 AM Surgical Discharge SummarySushelleyroya Garibay [facility] PresbyterianN: [id number] date: 04/28/2020Admitting Physician: HANG Sahaischarge date and [...] Get Your MedicationsThese medications were sent to [facility] [place], [place] [facility] [address] [facility] [address] HYDROcodone-acetaminophen 5-325 MG per tabletIndication for Admission: left leg painAdmission H&P: This is an 84 years old female with a history of CAD,[place] with stenting, HTN, HLD, CHF, carotid artery disease, valvular heart disease,COPD uses 2L of oxygen at night, GERD, history of GI bleed, [place], maculardegeneration, OA, stroke, TIA, and PVD with [...] disease Hiatal hernia History of GI bleed [place] (hard of hearing) Hyperlipidemia Hypertension Macular degeneration [...] no calf tendernessNeuro: AAOx3, answers questions appropriately, 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 No grossneurological deficits.Items needing special attention:- Follow up appointment with Dr. Levine scheduled for May 13 at 9:45 am- Continue plavix and xarelto 2.5 bidDischarged Condition:goodDisposition: Home or Self CareSignature: JOJO Mark-CDate: May 01, 2020Time: 7:38 AM Name Value Range Interpretation Code Description Data Lavinia rce(s) Supporting Document(s) ID Date Data Source [id number] 05/01/2020 07:59:14 AM EDT [facility] [place] [facility] [place] Name Value Range Interpretation Code Description Data [facility] rce(s) Supporting Document(s) SODIUM 146 mmol/L (136-145) H [facility] [place] [facility] POTASSIUM 4.3 mmol/L (3.6-5.2) [facility] [place] [facility] CHLORIDE 113 mmol/L (100-108) H [facility] [place] [facility] CO2 26 mmol/L (22-31) [facility] [place] [facility] ANION GAP 7 mmol/L (7-16) [facility] [place] [facility] UREA NITROGEN 16 mg/dL (7-24) [facility] [place] [facility] CREATININE 0.81 mg/dL (0.60-1.00) [facility] [place] [facility] BUN/CREAT RATIO 19.8 RATIO (10.0-20.0) [facility] GLUCOSE 130 mg/dL (70-99) H [facility] [place] [facility] CALCIUM 8.2 mg/dL (8.4-10.2) L [facility] [place] [facility] GFR >60 ml/min/1.73m2 (>59) [facility] [place] [facility] GFR ( AMER) >60 ml/min/1.73m2 (>59) [facility] [place] [facility] GFR INTERPRETATION [facility] --NORMAL KIDNEY FUNCTION OR MILD DISEASE - GFR >OR= 60CHRONIC KIDNEY DISEASE - GFR 15 - 59RENAL FAILURE - GFR <15 Est. GFR calculation based on the MDRDstudy equation, which assumes a steadystate for creatinine. Est. GFR should notbe used for medication dosing. ID Date Data Source [id number] 05/01/2020 07:10:16 AM EDT [facility] [place] [facility] Name Value Range Interpretation Code Description Data Lavinia rce(s) Supporting Document(s) WBC 8.5 10*3/uL (4.1-11.0) [facility] [place] [facility] [place] RBC 2.99 10*6/uL (4.00-5.40) L [facility] [place] [facility] HGB 9.0 g/dL (12.0-16.0) L [facility] [place] [facility] [place] HCT 27.0 % (36.0-47.0) L [facility] [place] [facility] MCV 90.4 fL (80.0-95.0) [facility] [place] [facility] MCH 30.1 pg (27.0-32.0) [facility] [place] [facility] [place] MCHC 33.3 g/dL (32.0-36.0) [facility] [place] [facility] [place] RDW 14.8 % (10.5-14.5) H [facility] [place] [facility] [place] PLT 137 10*3/uL (150-450) L [facility] [place] [facility] [place] MPV 8.0 fL (7.1-10.7) [facility] [place] [facility] ID Date Data Source [id number] 05/03/2020 12:40:14 AM EDT [facility] [place] [facility] SPEC EXP DATE 05/03/2020PATI ENT ABO/Rh O POSITIVEANTIBODY SCREEN NEGATIVETESTING SITE PERFORMED AT [address] [place], [place] [address]BLOOD BANK COMMENT BLOOD TYPE CONFIRMED.UNIT NUMBER [id number] COMPONENT TYPE LEUKOPOOR RED CELLSUNIT DIVISION 00STATUS OF UNIT TRANSFUSEDTRANSFUSION STATUS OK TO TRANSFUSECROSSMATCH RESULT COMPATIBLEUNIT NUMBER [id number] COMPONENT TYPE LEUKOPOOR RED CELLSUNIT DIVISION 00STATUS OF UNIT REL F ROM ALLOCTRANSFUSION STATUS OK TO TRANSFUSECROSSMATCH RESULT COMPATIBLE Name Value Range Interpretation Code Description Data Lavinia rce(s) Supporting Document(s) TYPE AND SCREEN [facility] [place] [facility] [place] ID Date Data Source [id number] 04/30/2020 07:27:40 AM EDT [facility] [place] [facility] Name Value Range Interpretation Code Description Data Lavinia rce(s) Supporting Document(s) SODIUM 145 mmol/L (136-145) [facility] [place] [facility] POTASSIUM 4.0 mmol/L (3.6-5.2) [facility] [place] [facility] CHLORIDE 111 mmol/L (100-108) H [facility] [place] [facility] CO2 29 mmol/L (22-31) [facility] [place] [facility] ANION GAP 5 mmol/L (7-16) L [facility] [place] [facility] UREA NITROGEN 12 mg/dL (7-24) [facility] [place] [facility] CREATININE 0.87 mg/dL (0.60-1.00) [facility] [place] [facility] BUN/CREAT RATIO 13.8 RATIO (10.0-20.0) [facility] GLUCOSE 128 mg/dL (70-99) H [facility] [place] [facility] CALCIUM 8.2 mg/dL (8.4-10.2) L [facility] [place] [facility] GFR >60 ml/min/1.73m2 (>59) [facility] [place] [facility] GFR ( AMER) >60 ml/min/1.73m2 (>59) [facility] [place] [facility] GFR INTERPRETATION [facility] --NORMAL KIDNEY FUNCTION OR MILD DISEASE - GFR >OR= 60CHRONIC KIDNEY DISEASE - GFR 15 - 59RENAL FAILURE - GFR <15 Est. GFR calculation based on the MDRDstudy equation, which assumes a steadystate for creatinine. Est. GFR should notbe used for medication dosing. ID Date Data Source [id number] 04/30/2020 07:06:39 AM EDT [facility] [place] [facility] Name Value Range Interpretation Code Description Data Lavinia [facility](s) Supporting Document(s) WBC 8.3 10*3/uL (4.1-11.0) [place] [facility] [place] RBC 2.63 10*6/uL (4.00-5.40) L [facility] [place] [facility] HGB 7.9 g/dL (12.0-16.0) L [facility] [place] [facility] [place] HCT 23.9 % (36.0-47.0) L [facility] [place] [facility] [place] MCV 90.9 fL (80.0-95.0) [facility] [place] [facility] [place] MCH 29.9 pg (27.0-32.0) [facility] [place] [facility] [place] MCHC 33.0 g/dL (32.0-36.0) [facility] [place] [facility] [place] RDW 14.5 % (10.5-14.5) [facility] [place] [facility] [place] PLT 149 10*3/uL (150-450) L [facility] [place] [facility] [place] MPV 8.0 fL (7.1-10.7) [facility] [place] [facility] ID Date Data Source [id number] 04/29/2020 12:25:[address] [address] [facility] INFORMATIONPatient MRN Name Date of Age Gend*PT [id number] Nguyen Ibarra 1935 84 years F IPPT Location Admission Date/Time Visit ID Attending [id number] 04/28/20 0538 --- Zuhair Levine MD([id number]) EPI ID CSN Admitting Provider [id number] Zuhair Levine MD([id number]) [place] [address] OPERATIVE REPORT OPNAME: NGUYEN IBARRA#: [id number] #: [id number] ADMISSION DATE: 04/28/2020DOB: 1935 SEX: F PT TYPE: I SURACCT #: [id number] CARE PHYSICIAN: HUGH URBINADATE OF OPERATION: 04/28/2020PREOPERATIVE [...] was about 100 mL.MIGUEL SAHA/[place] Job #: [id number] DOC #: [id number] Name Value Range Interpretation Code Description Data Lavinia e(s) Supporting Document(s) ID Date Data Source [id number] 04/29/2020 07:22:55 AM EDT [facility] [place] [facility] Name Value Range Interpretation Code Description Data Lavinia e(s) Supporting Document(s) SODIUM 144 mmol/L (136-145) [facility] [place] [facility] POTASSIUM 3.6 mmol/L (3.6-5.2) [facility] [place] [facility] CHLORIDE 109 mmol/L (100-108) H [facility] [place] [facility] CO2 26 mmol/L (22-31) [facility] [place] [facility] ANION GAP 9 mmol/L (7-16) [facility] [place] [facility] UREA NITROGEN 9 mg/dL (7-24) [facility] [place] [facility] CREATININE 0.89 mg/dL (0.60-1.00) [facility] [place] [facility] BUN/CREAT RATIO 10.1 RATIO (10.0-20.0) [facility] GLUCOSE 129 mg/dL (70-99) H [facility] [place] [facility] CALCIUM 8.0 mg/dL (8.4-10.2) L [facility] [place] [facility] TOTAL PROTEIN 5.0 g/dL (6.4-8.2) L [facility] [place] [facility] ALBUMIN 2.9 g/dL (3.2-4.5) L [facility] [place] [facility] GLOBULIN 2.1 g/dL (2.7-4.3) L [facility] [place] [facility] ALB/GLOB RATIO 1.4 RATIO [facility] [place] [facility] ALKALINE PHOSPHATASE 47 U/L (45-117) [facility] BILIRUBIN,TOTAL 0.6 mg/dL (0.0-1.0) [facility] [place] [facility] PLEASE NOTE:Total bilirubin results may be falselyelevated in patients taking Eltrombopag. AST (SGOT) 9 U/L (11-39) L [facility] [place] [facility] ALT (SGPT) 9 U/L (12-78) L [facility] [place] [facility] GFR >60 ml/min/1.73m2 (>59) [facility] [place] [facility] GFR ( AMER) >60 ml/min/1.73m2 (>59) [facility] [place] [facility] GFR INTERPRETATION [facility] --NORMAL KIDNEY FUNCTION OR MILD DISEASE - GFR >OR= 60CHRONIC KIDNEY DISEASE - GFR 15 - 59RENAL FAILURE - GFR <15 Est. GFR calculation based on the MDRDstudy equation, which assumes a steadystate for creatinine. Est. GFR should notbe used for medication dosing. ID Date Data Source [id number] 04/28/2020 11:43:31 AM EDT [facility] [place] [facility] Name Value Range Interpretation Code Description Data Lavinia rce(s) Supporting Document(s) POC SOURCE [facility] [place] [facility] CP BYPASS [facility] [place] [facility] POC PH 7.41 pH (7.35-7.45) [facility] [place] [facility] [place] POC PCO2 39.7 MMHG (32.0-48.0) [facility] [place] [facility] POC PO2 111 MMHG (83-108) H [facility] [place] [facility] POC SAT O2 98 % (95-99) [facility] [place] [facility] POC BASE EXCESS 0 MMOL/L (0-3) [facility] [place] [facility] POC HCO3 24.9 MMOL/L (21.0-29.0) [facility] [place] [facility] POC TOTAL CO2 26 MMOL/L (23.0-32.0) [place] [facility] [place] PERFORMED BY [facility] CLINICAL STAFF POC HCT 25 % (36.0-47.0) L [facility] [place] [facility] [place] POC SODIUM 141 MMOL/L (136-145) [facility] [place] [facility] POC POTASSIUM 3.5 MMOL/L (3.6-5.2) L [facility] [place] [facility] POC IONIZED CALCIUM 4.4 MG/DL (4.6-5.3) L [facility] POC GLU 202 MG/DL (70-99) H [facility] [place] [facility] [place] PERFORM LAB [facility] [place] [facility] ID Date Data Source [id number] 04/28/2020 10:41:14 AM EDT [facility] Name Value Range Interpretation Code Description Data Lavinia rce(s) Supporting Document(s) XR FLUORO UP TO 1 HR [facility] ID Date Data Source [id number] 04/28/2020 08:38:[address] [address] [facility] INFORMATIONPatient MRN Name Date of Age Gend*PT [id number] Nguyen Ibarra 1935 84 years F SDAPT Location Admission Date/Time Visit ID Attending Provider --- --- --- --- EPI ID CSN Admitting Pro vider [id number] ---AirwayPatient location during procedure: ORUrgency: electiveDifficult airway: [...] cmPlacement verified by: chest auscultation and + [id number]: CTA and equal breath sounds bilateralGrade view: grade I - full view of glottis Name Value Range Interpretation Code Description Data Lavinia rce(s) Supporting Document(s) ID Date Data Source [id number] 04/28/2020 08:37:[address] [address] [facility] INFORMATIONPatient MRN Name Date of Age Gend*PT [id number] TonyNguyen [place] 1935 84 years F SDAPT Location Admission Date/Time Visit ID Attending Provider --- --- --- --- EPI ID CSN Admitting Pro vider [id number] ---Arterial Line PlacementPatient location during procedure: ORIndications [...] rce(s) Supporting Document(s) ID Date Data Source [id number] 04/28/2020 07:50:[address] [facility] INFORMATIONPatient MRN Name Date of Age Gend*PT [id number] Nguyen Ibarra 1935 84 years F SDAPT Location Admission Date/Time Visit [facility]/28/20 0538 --- Zuhair Levine MD([id number]) EPI ID CSN Admitting Provider [id number] Zuhair Levine MD([id number]) H&P reviewed. The patient was examined and there are no changes to the H&P.Risks and benefits of procedures explained and accepted.Zuhair Levine MD7:50 AM Name Value Range Interpretation Code Description Data [place]ia rce(s) Supporting Document(s) ID Date Data Source [id number] 04/28/2020 08:07:56 AM EDT [facility] [place] [facility] Name Value Range Interpretation Code Description Data Lavinia rce(s) Supporting Document(s) POC NOVA GLU 150 mg/dL (70-99) H [place] [facility] [place] PERFORMED BY [facility] CL[facility] STA[facility] ID Date Data Source [id number] 04/30/2020 01:46:14 AM EDT [facility] [place] [facility] SPEC EXP DATE 04/29/2020TEST ING SITE PERFORMED AT [address] [place] [address]MAJO NUMBER [id number] COMPONENT TYPE LEUKOPOOR RED CELLSUNIT DIVISION 00STATUS OF UNIT TRANSFUSEDTRANSFUSION STATUS OK TO TRANSFUSECROSSMATCH RESULT COMPATIBLEUNIT NUMBER [id number] COMPONENT TYPE LEUKOPOOR RED CELLSUNIT DIVISION 00STATUS OF UNIT REL FROM ALLOCTRANSFUSION STATUS OK TO TRANSFUSECROSSMATCH RESULT COMPATIBLE Name Value Range Interpretation Code Description Data [place] rce(s) Supporting Document(s) TRANSFUSE RED CELLS [facility] [place] [facility] TESTING SITE PERFORMED AT [address] [place] [address] ID Date Data Source [id number] 04/23/2020 12:56:[address] [facility] INFORMATIONPatient MRN Name Date of Age Gend*PT [id number] Nguyen Ibarra 1935 84 years F OPPT Location Admission Date/Time Visit ID Attending Provider --- --- --- Zuhair Levine MD([id number]) EPI ID CSN Admitting Provider [id number] ---HISTORY PHYSICALName: Nguyen Ibarra : 1935 Sex: female Care Provider: Hugh Arroyo Physician: Dr. LevineInformant: The patient who is a poor historian and accompanied by her daughter.Chief Complaint: "I will have femoral bypass surgery".HISTORY OF PRESENT ILLNESS: This is an 84 years old female with ahistory of CAD, [place] with stenting, HTN, HLD, CHF, carotid artery disease,valvular heart disease, COPD uses 2L of oxygen at night, GERD, history of GIbleed, [place], macular degeneration, OA, stroke, TIA, and PVD [...] disease Hiatal hernia History of GI bleed [place] (hard of hearing) Hyperlipidemia Hypertension Macular degeneration [...] old Vancomycin Itching Received in 2017 at [facility] and 1 dose here -- no [...] tablet Chew 81 mg daily Historical Provider, eRlltorvastatin (LIPITOR) 40 MG tablet Take 40 mg [...] scant clear drainage.HEENT: She is normocephalic, atraumatic. [place] conjunctivae. Anicteric sclerae.Pupils are equal, round, reactive [...] hepatosplenomegaly. Negative CVAT.GENITAL/RECTAL: Deferred.MUSCLE/SKELETAL: Strength is 5/5. 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 A reasonable attempt at proofreading has beenmade to minimize errors. Please call with any questions or corrections. Name Value Range Interpretation Code Description Data Lavinia rce(s) Supporting Document(s) ID Date Data Source [id number] 04/23/2020 11:50:09 AM EDT [facility] Name Value Range Interpretation Code Description Data [facility] rce(s) Supporting Document(s) EKG [facility] [id number] [file] +[id number]/SpbzH2wZu/emergency department manager/[id number] [file] ID Date Data Source [id number] 04/23/2020 05:19:02 PM EDT [facility] [place] [facility] SPEC EXP DATE 04/29/2020PATI ENT ABO/Rh O POSITIVEANTIBODY SCREEN NEGATIVETESTING SITE PERFORMED AT [address] [place], [place] [address]OOD BANK COMMENT BLOOD TYPE CONFIRMED. Name Value Range Interpretation Code Description Data [place]avinia rce(s) Supporting Document(s) TYPE AND SCREEN [facility] [place] [facility] ID Date Data Source [id number] 04/23/2020 04:26:12 PM EDT [facility] [place] [facility] Name Value Range Interpretation Code Description Data [place]avinia rce(s) Supporting Document(s) SODIUM 142 mmol/L (136-145) [facility] [place] [facility] POTASSIUM 4.2 mmol/L (3.6-5.2) [facility] [place] [facility] CHLORIDE 104 mmol/L (100-108) [facility] [place] [facility] CO2 31 mmol/L (22-31) [facility] [place] [facility] ANION GAP 7 mmol/L (7-16) [facility] [place] [facility] UREA NITROGEN 11 mg/dL (7-24) [facility] [place] [facility] CREATININE 0.91 mg/dL (0.60-1.00) [facility] [place] [facility] BUN/CREAT RATIO 12.1 RATIO (10.0-20.0) [facility] GLUCOSE 166 mg/dL (70-99) H [facility] [place] [facility] CALCIUM 9.2 mg/dL (8.4-10.2) [facility] [place] [facility] TOTAL PROTEIN 6.5 g/dL (6.4-8.2) [facility] [place] [facility] ALBUMIN 3.6 g/dL (3.2-4.5) [facility] [place] [facility] GLOBULIN 2.9 g/dL (2.7-4.3) [facility] [place] [facility] ALB/GLOB RATIO 1.2 RATIO [facility] [place] [facility] ALKALINE PHOSPHATASE 70 U/L (45-117) [facility] BILIRUBIN,TOTAL 0.4 mg/dL (0.0-1.0) [facility] [place] [facility] PLEASE NOTE:Total bilirubin results may be falselyelevated in patients taking Eltrombopag. AST (SGOT) 14 U/L (11-39) [facility] [place] [facility] ALT (SGPT) 13 U/L (12-78) [facility] [place] [facility] GFR 59 ml/min/1.73m2 (>59) L [facility] [place] [facility] GFR ( AMER) >60 ml/min/1.73m2 (>59) [facility] [place] [facility] GFR INTERPRETATION [facility] --NORMAL KIDNEY FUNCTION OR MILD DISEASE - GFR >OR= 60CHRONIC KIDNEY DISEASE - GFR 15 - 59RENAL FAILURE - GFR <15 Est. GFR calculation based on the MDRDstudy equation, which assumes a steadystate for creatinine. Est. GFR should notbe used for medication dosing. ID Date Data Source [id number] 04/23/2020 03:52:11 PM EDT [facility] [place] [facility] Name Value Range Interpretation Code Description Data Lavinia rce(s) Supporting Document(s) PT 13.0 s (9.2-11.9) H [facility] [place] [facility] INR 1.27 [facility] [place] [facility] SUGGESTED THERAPEUTIC RANGES USING INR F ORSTABILIZED ANTICOAGULATED PATIENTS:STANDARD DOSE THERAPY INR 2.0-3.0 DVT, PE, PREVENT DVT OR EMBOLISMHIGH DOSE THERAPY INR 2.5-3.5 PREVENT EMBOLISM FROM MECHANICAL HEART VALVE ID Date Data Source [id number] 04/23/2020 03:40:52 PM EDT [facility] [place] [facility] Name Value Range Interpretation Code Description Data Lavinia rce(s) Supporting Document(s) WBC 7.5 10*3/uL (4.1-11.0) [facility] [place] [facility] [place] RBC 3.12 10*6/uL (4.00-5.40) L [facility] [place] [facility] HGB 9.5 g/dL (12.0-16.0) L [facility] [place] [facility] HCT 30.0 % (36.0-47.0) L [facility] [place] [facility] MCV 96.1 fL (80.0-95.0) [facility] MCH 30.3 pg (27.0-32.0) [facility] MCHC 31.5 g/dL (32.0-36.0) [facility] RDW 14.1 % (10.5-14.5) [facility] PLT 290 10*3/uL (150-450) [facility] MPV 8.5 fL (7.1-10.7) [facility] ID Date Data Source [id number] 04/24/2020 09:42:32 AM EDT [facility] Name Value Range Interpretation Code Description Data Lavinia rce(s) Supporting Document(s) SPECIMEN DESCRIPTION Lab Allia nce of [facility] STAPH SCREEN RESULTS (ONEGSA) Lab [facility] COMMENT [facility] GENE TO DETECT STAPH AUREUS. (2) RT-P CR WAS PERFORMED FOR THE mecA AND [facility] GENES TO DETECT METHICILLIN RESISTANCE IN STAPH AUREUS. ID Date Data Source [id number] 04/23/2020 09:40:00 AM EDT [facility] Name Value Range Interpretation Code Description Data Lavinia rce(s) Supporting Document(s) SARS coronavirus 2 RNA [facility] This lab was ordered by [facility] and reported by [facility]. ID Date Data Source [id number] 04/24/2020 12:09:17 PM EDT [facility] Name Value Range Interpretation Code Description Data Lavinia rce(s) Supporting Document(s) SARS-COV-2 STEPH [facility] Not DetectedReference range: Not Detecte d This nucleic acid amplification test was developed and its performance characteristics determined by [facility]. Nucleic acid amplification tests include PCR [...] result in this assay. Performed At: [facility] [id number] Perry Rios MD Ph:[phone] Procedure Social History Code Duration Value Status Description Data Source(s ) Smoking 06/03/2021 12:00:00 AM EDT - 08/07/2015 12:00:00 AM EST Patient is a former smoker completed Patient is a former smoker [facility] ([facility]) Smoking 05/20/2021 12:00:00 AM EDT Former Smoker completed Former Smoker [facility] Smoking 05/20/2021 12:00:00 AM EDT Former Smoker completed Former Smoker eCW1 ([facility]) Alcohol intake 05/13/2021 12:00:00 AM EDT Current non-d jorge of alcohol (finding) completed Current non-drinker of alcohol (finding) [facility] Alcohol intake 04/14/2021 12:00:00 AM EDT Current non-d jorge of alcohol (finding) completed Current non-drinker of alcohol (finding) [facility] Alcohol intake 04/06/2021 12:00:00 AM EDT Current non-d jorge of alcohol (finding) completed Current non-drinker of alcohol (finding) [facility] Smoking 03/31/2021 12:00:00 AM EDT Former Smoker completed Former Smoker eCW1 ([facility]) Alcohol intake 03/15/2021 12:00:00 AM EDT Current non-d jorge of alcohol (finding) completed Current non-drinker of alcohol (finding) [facility] Alcohol intake 12/24/2020 12:00:00 AM EDT Current non-d jorge of alcohol (finding) completed Current non-drinker of alcohol (finding) [facility] Smoking 12/21/2020 12:00:00 AM EDT Former Smoker completed Former Smoker eCW1 ([facility]) Smoking 12/21/2020 12:00:00 AM EDT Former Smoker completed Former Smoker eCW1 ([facility]) Alcohol intake 10/21/2020 12:00:00 AM EDT No completed [facility] Cigarette pack-years 10/21/2020 12:00:00 AM EDT UNK completed [facility] Cigarettes smoked current (pack per day) - Reported 10/22/19 12:00:00 AM EDT UNK completed [facility] Smoking 10/21/2020 12:00:00 AM EDT Former smoker completed Former smoker [facility] Smoking 08/11/2020 12:00:00 AM EST Patient is a former smoker completed Patient is a former smoker [facility] ([facility], ) Smoking 07/07/2020 12:00:00 AM EST Former Smoker completed Former Smoker eCW1 ([facility]) Smoking 07/07/2020 12:00:00 AM EST Former Smoker completed Former Smoker eCW1 ([facility]) Alcohol intake 04/29/2020 12:00:00 AM EDT No completed [facility] Cigarette pack-years 04/29/2020 12:00:00 AM EDT UNK completed [facility] Cigarettes smoked current (pack per day) - Reported 04/29/20 12:00:00 AM EDT UNK completed [facility] Smoking 04/29/2020 12:00:00 AM EDT Former smoker completed Former smoker [facility] Alcohol intake 04/23/2020 12:00:00 AM EDT No completed [facility] Cigarette pack-years 04/23/2020 12:00:00 AM EDT UNK completed [facility] Cigarettes smoked current (pack per day) - Reported 04/23/20 12:00:00 AM EDT UNK completed [facility] Smoking 04/23/2020 12:00:00 AM EDT Former smoker completed Former smoker [facility] Vital Signs ID Date Data Source UNK [...] [facility] Body weight [lb_av] eCW1 ([facility]) Body weight 56.7 kg 56.7 kg eCW1 ([facility]) Body height 64 [in_i] 64 [in_i] eCW1 ([facility]) Body mass index (BMI) [Ratio] 21.45 kg/m2 21.45 kg/m2 eCW1 ([facility]) Heart rate 94 /min 94 /min eCW1 ([facility]) Respiratory rate 18 /min 18 /min eCW1 ([facility]) Body temperature 98.4 [degF] 98.4 [degF] eCW1 ( [facility]) Systolic blood pressure 119 mm[Hg] 119 mm[Hg] e CW1 ([facility]) Diastolic blood pressure 67 mm[Hg] 67 mm[Hg] eCW1 ([facility]) Systolic blood pressure 110 mm[Hg] 110 mm[Hg] [...] /min [facility] ([facility] Diastolic blood pressure 54 mm[Hg] 54 mm[Hg] [facility] ([facility]) Body temperature 95.8 [degF] 95.8 [degF] [facility] ([facility]) Systolic blood pressure 148 mm[Hg] 148 mm[Hg] M EDENT ([facility]) Body height 64 [in_i] 64 [in_i] [facility] ([facility] 5'4" Systolic blood pressure 126 mm[Hg] 126 mm[Hg] [facility] Diastolic blood pressure 62 mm[Hg] 62 mm[Hg] [facility] Heart rate 84 /min 84 /min [facility] Body temperature [address] [facility] Respiratory rate 18 /min 18 /min [facility] Body height 162.6 cm 162.6 cm [facility] Body weight 54.885 kg 54.885 kg [facility] Body mass index (BMI) [Ratio] 20.76 kg/m2 20.76 kg/m2 [facility] Systolic blood pressure 126 mm[Hg] 126 mm[Hg] [facility] Diastolic blood pressure 69 mm[Hg] 69 mm[Hg] [facility] Heart rate 89 /min 89 /min [facility] Body temperature 36.[address] [facility] Respiratory rate 18 /min 18 /min [facility] Body height 162.6 cm 162.6 cm [facility] Body weight 55.339 kg 55.339 kg [facility] ([facility] Body weight 122.00 [lb_av] 122.00 [lb_av] MEDEN T ([facility]) Body height 64 [in_i] 64 [in_i] [facility] ([facility] '4" Body mass index (BMI) [Ratio] 20.9 kg/m2 [...] [facility]) Body weight [lb_av] eCW1 ([facility]) Body weight 53.98 kg 53.98 kg eCW1 ([facility]) Body height 64 [in_i] 64 [in_i] eCW1 ([facility]) Body mass index (BMI) [Ratio] 20.42 kg/m2 20.42 kg/m2 W1 ([facility]) Heart rate 82 /min 82 /min eCW1 ([facility]) Respiratory rate 18 /min 18 /min eCW1 ([facility]) Body temperature 98.7 [degF] 98.7 [degF] eCW1 ( [facility]) Systolic blood pressure 123 mm[Hg] 123 mm[Hg] e CW1 ([facility]) Diastolic blood pressure 68 mm[Hg] 68 mm[Hg] eCW1 ([facility]) Respiratory rate 16 /min 16 /min [facility] Body temperature 36.[address] [facility] Oxygen saturation in Arterial blood by Pulse oximetry 95 % 95 % [facility] Systolic blood pressure 110 mm[Hg] 110 mm[Hg] [facility] Diastolic blood pressure 52 mm[Hg] 52 mm[Hg] [facility] Heart rate 102 /min 102 /min [facility] Body weight 58.9 kg 58.9 kg [facility] Body mass index (BMI) [Ratio] 22.29 kg/m2 22.29 kg/m2 [facility] Diastolic blood pressure 70 mm[Hg] 70 mm[Hg] [facility] ([facility]) Systolic blood pressure 126 mm[Hg] 126 mm[Hg] M EDENT ([facility]) Body temperature 96.1 [degF] 96.1 [degF] [facility] ([facility] Body height 64 [in_i] 64 [in_i] [facility] ([facility] 5'4" Heart rate 80 /min 80 /min [facility] ([facility] Body weight 56.700 kg 56.700 kg [facility] ([facility] Body mass index (BMI) [Ratio] 21.5 kg/m2 21.5 k g/m2 [facility] ([facility]) Body weight 125.00 [lb_av] 125.00 [lb_av] MEDEN T ([facility]) Body weight 56.246 [...] 62 mm[Hg] [facility] ([facility]) Systolic blood pressure 120 mm[Hg] 120 mm[Hg] M EDENT ([facility]) Heart rate 68 [...] 21.20 kg/m2 [facility] ([facility] Body weight 125.00 [...] [facility] ([facility] 5'4" Respiratory rate 16 /min 16 /min [facility] Oxygen saturation in Arterial blood by Pulse oximetry 92 % 92 % [facility] Systolic blood pressure 104 mm[Hg] 104 mm[Hg] [facility] Diastolic blood pressure 49 mm[Hg] 49 mm[Hg] [facility] Heart rate 79 /min 79 /min [facility] Body temperature 36.[address] [facility] Body height 162.6 cm 162.6 cm [facility] Body weight 56.7 kg 56.7 kg [facility] Body mass index (BMI) [Ratio] 21.46 kg/m2 21.46 kg/m2 [facility] Body weight [lb_av] eCW1 ([facility]) Body height 64 [in_i] 64 [in_i] eCW1 ([facility]) Body mass index (BMI) [Ratio] 21.45 kg/m2 21.45 kg/m2 eCW1 ([facility]) Systolic blood pressure 134 mm[Hg] 134 mm[Hg] e CW1 ([facility]) Heart rate 73 /min 73 /min eCW1 ([facility]) Diastolic blood pressure 73 mm[Hg] 73 mm[Hg] eCW1 ([facility]) Respiratory rate 18 /min 18 /min eCW1 ([facility] Body temperature 98.8 [degF] 98.8 [degF] eCW1 ( [facility]) Body height 64 [in_i] 64 [in_i] MEDENT [...] Systolic blood pressure 116 mm[Hg] 116 mm[Hg] [facility] Diastolic blood pressure 49 mm[Hg] 49 mm[Hg] [facility] Heart rate 101 /min 101 /min [facility] Body temperature 36.[address] [facility] Respiratory rate 18 /min 18 /min [facility] Oxygen saturation in Arterial blood by Pulse oximetry 94 % 94 % [facility] Body mass index (BMI) [Ratio] 21.46 kg/m2 21.46 kg/m2 [facility] Body height 162.6 cm 162.6 cm [facility] Body weight 56.7 kg 56.7 kg [facility] Systolic blood pressure 120 mm[Hg] 120 mm[Hg] [...] 54.886 kg [facility] Body mass index (BMI) [Ratio] 20.8 kg/m2 20.8 k g/m2 [facility] ([facility]) Body temperature 94.5 [degF] 94.5 [degF] [facility] Heart rate 72 /min 72 /min [facility] ([facility]) Systolic blood pressure 140 mm[Hg] 140 mm[Hg] M EDENT ([facility] Diastolic blood pressure 60 mm[Hg] 60 mm[Hg] [facility] ([facility]) Systolic blood pressure 140 mm[Hg] 140 mm[Hg] M EDENT ([facility]) Diastolic blood pressure 80 mm[Hg] 80 mm[Hg] [facility] ([facility]) Body weight 121.00 [lb_av] 121.00 [lb_av] MEDEN T ([facility]) Body height 64 [in_i] 64 [in_i] [facility] ([facility]) 5'4" Body weight 54.886 kg 54.886 kg [facility] ([facility]) Body mass index (BMI) [Ratio] 20.8 kg/m2 20.8 k g/m2 [facility] ([facility]) Systolic blood pressure 106 mm[Hg] 106 mm[Hg] M EDENT ([facility], ) Diastolic blood pressure 64 mm[Hg] 64 mm[Hg] [facility] ([facility], ) Heart rate 108 /min 108 /min [facility] ([facility], ) Oxygen saturation in Arterial blood by Pulse oximetry 95 % 95 % [facility] ([facility]) Body temperature 97.3 [degF] 97.3 [degF] [facility] ([facility], ) Body height 64 [in_i] 64 [in_i] [facility] ([facility]) 5'4" Body weight 119.25 [lb_av] 119.25 [lb_av] MEDEN T ([facility]) Body mass index (BMI) [Ratio] 20.5 kg/m2 20.5 k g/m2 [facility] ([facility]) [place] body weight 120 [lb_av] 120 [lb_av] MEDEN T ([facility]) Body weight 54.092 kg 54.092 kg [facility] ([facility]) Body surface area Derived from formula 1.57 m2 1.57 m2 [facility] ([facility]) Body mass index (BMI) [Ratio] 20.1 kg/m2 20.1 k g/m2 [facility] ([facility]) Body weight 53.071 kg 53.071 kg [facility] ([facility]) Systolic blood pressure 120 mm[Hg] 120 mm[Hg] M EDENT ([facility]) Doppler Systolic blood pressure 140 mm[Hg] 140 mm[Hg] M EDENT ([facility]) Doppler Body height 64 [in_i] 64 [in_i] [facility] ([facility]) 5'4" Body weight 117.00 [lb_av] 117.00 [lb_av] MEDEN T ([facility]) Body weight [lb_av] eCW1 ([facility]) Body height 64 [in_i] 64 [in_i] eCW1 ([facility]) Body temperature 98.7 [degF] 98.7 [degF] eCW1 ( [facility]) Body mass index (BMI) [Ratio] 20.08 kg/m2 20.08 kg/m2 eCW1 ([facility]) Heart rate 90 /min 90 /min eCW1 ([facility]) Respiratory rate 18 /min 18 /min eCW1 ([facility]) Systolic blood pressure 160 mm[Hg] 160 mm[Hg] e CW1 ([facility]) Diastolic blood pressure 81 mm[Hg] 81 mm[Hg] eCW1 ([facility]) Body weight [lb_av] eCW1 ([facility]) Body height 64 [in_i] 64 [in_i] eCW1 ([facility]) Body mass index (BMI) [Ratio] 20.08 kg/m2 20.08 kg/m2 eCW1 ([facility]) Heart rate 79 /min 79 /min eCW1 ([facility]) Respiratory rate 18 /min 18 /min eCW1 ([facility] Body temperature 97.8 [degF] 97.8 [degF] eCW1 ( [facility]) Systolic blood pressure 121 mm[Hg] 121 mm[Hg] e CW1 ([facility]) Diastolic blood pressure 70 mm[Hg] 70 mm[Hg] eCW1 ([facility]) Body height 64 [in_i] 64 [in_i] [facility] ([facility], ) 5'4" Body weight 117.50 [lb_av] 117.50 [lb_av] MEDEN T ([facility]) Systolic blood pressure 118 mm[Hg] 118 mm[Hg] M EDENT ([facility]) Diastolic blood pressure 56 mm[Hg] 56 mm[Hg] [facility] ([facility]) Body mass index (BMI) [Ratio] 20.2 kg/m2 20.2 k g/m2 [facility] ([facility]) [place] body weight 120 [lb_av] 120 [lb_av] MEDEN T ([facility]) Body weight 53.298 kg 53.298 kg [facility] Body surface area Derived from formula 1.56 m2 1.56 m2 [facility] ([facility]) Systolic blood pressure 150 mm[Hg] 150 mm[Hg] M EDENT ([facility]) Diastolic blood pressure 70 mm[Hg] 70 mm[Hg] [facility] ([facility]) Systolic blood pressure 140 mm[Hg] 140 mm[Hg] M EDENT ([facility]) Diastolic blood pressure 70 mm[Hg] 70 mm[Hg] [facility] ([facility]) Body height 64 [in_i] 64 [in_i] [facility] ([facility]) 5'4" Systolic blood pressure 112 mm[Hg] 112 mm[Hg] [facility] Diastolic blood pressure 53 mm[Hg] 53 mm[Hg] [facility] Heart rate 73 /min 73 /min [facility] Body temperature 36.[address] [facility] Respiratory rate 18 /min 18 /min [facility] Oxygen saturation in Arterial blood by Pulse oximetry 93 % 93 % [facility] Body height 162.6 cm 162.6 cm [facility] Body weight 54.432 kg 54.432 kg [facility] Body mass index (BMI) [Ratio] 20.60 kg/m2 20.60 kg/m2 [facility] Systolic blood pressure 139 mm[Hg] 139 mm[Hg] [facility] Diastolic blood pressure 56 mm[Hg] 56 mm[Hg] [facility] Heart rate 81 /min 81 /min [facility] Body height 162.6 cm 162.6 cm [facility] Body weight 54.432 kg 54.432 kg [facility] Body mass index (BMI) [Ratio] 20.60 kg/m2 20.60 kg/m2 [facility] Oxygen saturation in Arterial blood by Pulse oximetry 96 % 96 % [facility] Patient Treatment Plan of Care Planned Activity Planned Date Details Description Data Source (s) tramadol hydrochloride 50 MG Oral Tablet 05/12/2021 12:00:00 AM EDT [facility] gabapentin 300 MG Oral Capsule 04/28/2021 12:00:00 AM EDT [facility] Metronidazole 500 MG Oral Tablet 04/14/2021 12:00:00 AM EDT [facility] Nystatin 100 UNT/MG Topical Powder [Nystop] 04/05/2021 12:00:00 AM EDT [facility] Acetaminophen 325 MG / Oxycodone Hydrochloride 5 MG Or al Tablet 03/29/2021 12:00:00 AM EDT [facility] Potassium Chloride 10 MEQ Extended Release Oral Tablet 03/29/2021 12:00:00 AM EDT [facility] Chlorhexidine Gluconate (Biopatch) (Dressing) MISC 03/17/2021 12 :00:00 AM EDT [facility] Sodium Chloride Flush (Saline Flush) 0.9 % SOLN 03/17/2021 12:00:00 AM EDT [facility] 3 ML heparin sodium, porcine 100 UNT/ML Prefilled Syri nge 03/17/2021 12:00:00 AM EDT [facility] meropenem (MERREM) 1 g injection 03/17/2021 12:00:00 AM EDT [facility] Acetaminophen 325 MG / Oxycodone Hydrochloride 5 MG Or al Tablet 03/17/2021 12:00:00 AM EDT [facility] Albuterol 0.833 MG/ML / Ipratropium [place] 0.167 MG/M L Inhalant Solution 03/10/2021 03:27:14 PM EDT [facility] COLLAGENASE 0.25 UNT/MG Topical Ointment 01/30/2021 12:00:00 AM EDT [facility] Docusate Sodium 50 MG / sennosides, JAIL 8.6 MG Oral Ta blet 01/29/2021 12:00:00 AM EDT [facility] Morphine Sulfate (PF) injection 2 mg 12/25/2020 06:52:16 AM EDT [facility] Albuterol 0.833 MG/ML / Ipratropium [place] 0.167 MG/M L Inhalant Solution 12/24/2020 03:01:12 PM EDT [facility] Nitroglycerin 0.4 MG Sublingual Tablet 12/24/2020 03:01:12 PM EDT [facility] ondansetron (ZOFRAN) injection 4 mg 12/24/2020 11:42:28 AM EDT [facility] Ondansetron 4 MG Oral Tablet [Zofran] 06/12/2020 12:00:00 AM [place] [id number] ([facility] Ondansetron 4 MG Oral Tablet [Zofran] 06/12/2020 12:00:00 AM EST eCW1 ([facility]) Acetaminophen 325 MG / Hydrocodone Bitartrate 5 MG Ora l Tablet 05/01/2020 12:00:00 AM EDT [facility] Acetaminophen 325 MG Oral Tablet 12/28/2019 12:00:00 AM EDT [facility] rivaroxaban (XARELTO) 2.5 MG TABS 12/27/2019 12:00:00 AM EDT [facility] Ascorbic Acid 226 MG / Beta Carotene 143 20 UNT / cuprous oxide 0.8 MG / dl-alpha tocopheryl acetate 200 UNT / Zinc Oxide 34.8 MG Oral Capsule [PreserVision] 11/16/2016 12:00:00 AM EDT [facility] gabapentin 100 MG Oral Capsule [facility] Acetaminophen 325 MG / Hydrocodone Bitartrate 5 MG Oral Tablet [facility] Acetaminophen 325 MG / Oxycodone Hydrochloride 5 MG Oral Tablet [facility] doxycycline hyclate 100 MG Oral Tablet [facility] doxycycline anhydrous 40 MG Delayed Release Oral Capsule [facility] Acetaminophen 325 MG / Hydrocodone Bitartrate 5 MG Oral Tablet [facility] Acetaminophen 325 MG / Hydrocodone Bitartrate 5 MG Oral Tablet [facility] Aspirin 81 MG Chewable Tablet [facility] potassium chloride SA (K-DUR,KLOR-CON) 10 MEQ tablet [facility]
--- NOTE | 2021-06-22 06:27 | HPEPDOC ---
[facility] Medical History & Physical Date of Admission Jun 22, 2021 Date of Service: Jun 22, 2021 History and Physical CHIEF COMPLAINT: slurred speech HISTORY OF PRESENT ILLNESS: 86-year-old female with a past medical history of coronary artery disease, COPD, hypertension, peripheral vascular disease, macular degeneration, importantly with a history of aortoiliac and femoral- popliteal artery stenting placed in the left leg in August 04 as well as a femoral artery bypass in 2019 along with chronic neuropathic pain in the left leg. She is developed a chronic pain status post vascular surgery intervention and is has been following with vascular surgeon in [place]. Approximately 2 to 3 weeks ago she was started on Lyrica and has since developed worsening weakness generalized malaise and falls. She presented to the ER after developing slurred speech on the morning of 06/21/20[address] her daughter[address] Patient CT head without contrast was negative for intracranial bleed or ischemic CVA. At this point patient states that her slurred speech is getting slightly better but still persists. She denies any chest pain palpitations nausea vomiting diarrhea. She is currently on 2 L of oxygen and saturating well and states that she uses oxygen at home but only at night. Patient be admitted to hospitalist service for the management of generalized weakness as well as slurred speech thought possibly to be due to Lyrica side effect. PAST MEDICAL HISTORY: . Macular degeneration. 3. [place] in 2012. 4. Stroke 5. COPD 6. Hypertension 7. Peripheral vascular disease 8. Allergic rhinitis 9. Former smoker 10. Carotid artery disease PAST SURGICAL HISTORY: 1. Cardiac stent 2012 and 2016. 2. Colonoscopy and endoscopy. 3. Angiogram. 4. Femoral artery stents 2017. 5. Bilateral cataract surgery 6. Aortoiliac and femoral-popliteal artery stents x3 balloon placed in left leg July 2019. 7. Femoral artery bypass in 2019 8. Recent angiogram procedure SOCIAL HISTORY: Lives at home with her daughter and her son-in-law Former smoker Denies alcohol use at this time FAMILY HISTORY: History of macular degeneration around in the family/ ALLERGIES: Please see below. REVIEW OF SYSTEMS: 10 point ROS conducted relevant findings are noted in HPI HOME MEDICATIONS: Please see below. PHYSICAL EXAMINATION: VITAL SIGNS: please see below General: NAD, comfortable HEENT: PERRLA, EOMI, sclerae clear Neck: supple, normal ROM, no JVD Respiratory: lungs CTAB, no wheeze, no rales, no crackles CVS: RRR, normal S1, S2, no murmurs Abdo: soft, no masses, no hepatosplenomegaly, BS+, no rebound tenderness Skin: L leg medial surface 2 cm in diameter ulcer, dressed, clean. Some granulation tissue. MSK: no joint deformities, normal ROM Neuro: no focal neuro deficits, moving all 4 extremities, CN2-12 intact. Strength 5/5 in all 4 extremities. No nystagmus. Psych: calm, cooperative, AAO x 3 LABORATORY DATA: See below. IMAGING: CT head wo contrast (06/21/21): No evidence of fracture and no evidence of bleed. CXR (06/21/21): The lungs are symmetrically expanded. Lung volumes are slightly pronounced the which could be correlated for underlying changes of COPD/emphysema. Mild parenchymal scarring again noted at the left lung base. No evidence of peribronchial thickening. There is no consolidation, pneumothorax, or pleural effusion. No evidence of pulmonary vascular redistribution or overt edema. - MEDIASTINUM: There is no mediastinal shift or widening. - CARDIAC SILHOUETTE: Cardiothoracic ratio is within normal limits. Aortic atherosclerosis. - BONY THORAX: No acute findings are seen. - IMPRESSION: No acute infiltrate. C spine CT wo contrast (06/21/21): 1. No evidence of fracture. 2. Prominent degenerative changes with facet hypertrophy. 3. Prominent calcification atherosclerotic change right left carotid bifurcation. MICROBIOLOGY: Please see below. ASSESSMENT: 86-year-old female with a past medical history of coronary artery disease, COPD, hypertension, peripheral vascular disease, macular degeneration, importantly with a history of aortoiliac and femoral-popliteal artery stenting placed in the left leg in August 04 as well as a femoral artery bypass in 2019 along with chronic neuropathic pain in the left leg. She is developed a chronic pain status post vascular surgery intervention and is has been following with vascular surgeon in [place]. Approximately 2 to 3 weeks ago she was started on Lyrica and has since developed worsening weakness generalized malaise and falls. She presented to the ER after developing slurred speech on the morning of 06/21/[address] Patient CT head without contrast was negative for intracranial bleed or ischemic CVA. At this point patient states that her slurred speech is getting slightly better but still persists. She denies any chest pain palpitations nausea vomiting diarrhea. She is currently on 2 L of oxygen and saturating well and states that she uses oxygen at home but only at night. Patient be admitted to hospitalist service for the management of generalized weakness as well as slurred speech thought possibly to be due to Lyrica side effect. . PLAN: #Slurred speech/weakness/falls: has hx of CVA. CT head wo contrast shows no acute changes. S/p fall. CT c spine wnl. Possibly effect of newly started lyrica. Hold lyrica. Will order MRI/MRA to r/o CVA. Need to ensure cardiac stents are MRI safe. #L leg ulcer: consider advanced wound care consult with Dr. Bush # Peripheral vascular disease. Continue aspirin and Plavix. #Hypertension. Continue patient's home medications. #Chronic pain. Continue patient's home medications. # Hyperlipidemia. Continue the patient's atorvastatin. # DVT prophylaxis: Lovenox Vital Signs Vital Signs Date Time Temp Pulse Resp B/P (MAP) Pulse Ox O2 Delivery O2 Flow Rate FiO2 06/22/21 02:30 73 18 149/67 (94) 98 Nasal Cannula 2.0 06/22/21 01:30 97.9 Laboratory Data Labs 24H Laboratory Tests 2 06/22/21 01:23: Urine Color YELLOW, Urine Appearance CLEAR, Urine pH 6.0, Urine Specific [place] 1.019, Urine Protein NEGATIVE, Urine Glucose (UA) NEGATIVE, Urine Ketones NEGATIVE, Urine Blood NEGATIVE, Urine Nitrite NEGATIVE, Urine Bilirubin NEGATIVE, Urine Urobilinogen 0.2, Urine Leukocyte Esterase 2+H, Urine WBC (Auto) 16H, Urine RBC (Auto) 2, Urine Hyaline Casts (Auto) 0, Urine Bacteria (Auto) NEGATIVE, Urine Squamous Epithelial Cells 3, Urine Sperm (Auto) , Urine Opiates Screen NEGATIVE, Urine Methadone Screen NEGATIVE, Urine Barbiturates Screen NEGATIVE, Urine Phencyclidine Screen NEGATIVE, Urine Amphetamines Screen NEGATIVE, Urine Benzodiazepines Screen NEGATIVE, Urine Cocaine Metabolite Screen NEGATIVE, Urine Cannabinoids Screen NEGATIVE, Coronavirus (COVID-19)(PCR) NEGATIVE, Influenza Type A (RT-PCR) NEGATIVE, Influenza Type B (RT-PCR) NEGATIVE, Respiratory Syncytial Virus (PCR) NEGATIVE Microbiology Microbiology 06/22/21 Urine Culture, Received Pending Home Medications Scheduled Aspirin (Aspirin) 81 Mg Tab.chew, 1 TAB PO DAILY for pain Atorvastatin Calcium (Atorvastatin Calcium) 40 Mg Tab, 40 MG PO QHS Carvedilol (Carvedilol) 3.125 Mg Tab, 3.125 MG PO BID Cholecalciferol (Vitamin D3) (Vitamin D3) 1,000 Unit Tablet, 1,000 UNITS PO QHS Clopidogrel Bisulfate (Plavix) 75 Mg Tab, 75 MG PO DAILY Docusate Sodium (Docusate Sodium) 100 Mg Capsule, 100 MG PO DAILY Ferrous Sulfate (Ferrous Sulfate) 325 Mg Tablet, 325 MG PO DAILY Furosemide (Furosemide) 20 Mg Tab, 20 MG PO DAILY Gabapentin (Gabapentin) 100 Mg Capsule, 200 MG PO BID Lisinopril (Lisinopril) 2.5 Mg Tablet, 2.5 MG PO QHS Pantoprazole Sodium (Pantoprazole Sodium) 40 Mg Tab, 40 MG PO DAILY Potassium Chloride (Klor-Con M10) 10 Meq Tabcr, 10 MEQ PO BID Salmeterol/Fluticasone (Advair 250-50 Diskus) 14 Puff/Inhaler Aerp, 1 PUFF INH BID Tiotropium Childs (Spiriva Respimat) 4 Gm Mist.inhal, 2 PUFFS INH DAILY Vit A/Vit C/Vit E/Zinc/Copper (Preservision Areds Softgel) 1 Cap Cap, 1 CAP PO QHS Scheduled PRN Hydrocodone/Acetaminophen (Hydrocodone-Acetamin 5-325 mg) 1 Each Tablet, 1 TAB PO Q4HP PRN for PAIN Nitroglycerin (Nitrostat) 0.4 Mg Tab.subl, 0.4 MG SL NITRO PRN for CHEST PAIN Allergies Coded Allergies: Penicillins (Verified Allergy, Mild, RASH, TONGUE AND FACIAL SWELLING, 02/18/20) vancomycin (Verified Allergy, Unknown, UNKNOWN REACTION, 02/25/21) ciprofloxacin (Verified Adverse Reaction, Intermediate, TREMORS/ANXIETY/NAUSEA/VOMITING, 02/18/20) MARIIA GOSS MD Jun 22, 2021 06:27
[2021-06-22] MEDS ORDERED: HOME MED LIST COMPLETE! XX SCH (06:40)
[2021-06-22] MEDS ORDERED: SANT250O8 TOP (06:40)
[2021-06-22] MEDS ORDERED: ASPI-161 PO (06:40)
[2021-06-22] MEDS ORDERED: METR-265 PO (06:40)
[2021-06-22] MEDS ORDERED: GABA-282 PO (06:40)
[2021-06-22] MEDS ORDERED: TRAM50TA2 PO (06:40)
[2021-06-22 07:50] VITALS: BP 136/62
[2021-06-22 07:51] LABS: HEMATOCRIT 37.3 % (36.0-47.0); HEMOGLOBIN 12.1 g/dl (12.0-15.5); MEAN CORPUSCULAR HEMOGLOBIN 31.3 pg (27.0-33.0); MEAN CORPUSCULAR HGB CONC 32.4 g/dl (32.0-36.5); MEAN CORPUSCULAR VOLUME 96.4 fl (80.0-96.0); PLATELET COUNT, AUTOMATED 177 10^3/uL (150-450); RED BLOOD COUNT 3.87 10^6/uL (4.00-5.40); WHITE BLOOD COUNT 6.7 10^3/uL (4.0-10.0)
[2021-06-22 08:21] LABS: ALT/SGPT 14 U/L (12-78); BILIRUBIN,TOTAL 0.5 MG/DL (0.2-1.0); BLOOD UREA NITROGEN 13 MG/DL (7-18); CALCIUM LEVEL 8.7 MG/DL (8.8-10.2); CARBON DIOXIDE LEVEL 29 MEQ/L (21-32); CHLORIDE LEVEL 110 MEQ/L (98-107); CHOLESTEROL LEVEL 100 MG/DL (<200); CHOLESTEROL RISK RATIO 2.083 (<5); GLOMERULAR FILTRATION RATE > 60.0 (>32); GLUCOSE, FASTING 114 MG/DL (70-100); HDL CHOLESTEROL 48 MG/DL (>40); LDL CHOLESTEROL 29 MG/DL (<100); NON-HDL-C 52 MG/DL; POTASSIUM SERUM 3.9 MEQ/L (3.5-5.1); SODIUM LEVEL 144 MEQ/L (136-145); TOTAL PROTEIN 6.2 GM/DL (6.4-8.2); TRIGLYCERIDES LEVEL 113 MG/DL (<150)
--- NOTE | 2021-06-22 11:26 | ECGEPIP ---
[facility] - ED Test Date: 2021-06-21 Pat Name: BRISEIDA IBARRA Department: Room: [place] [address] Gender: Female [employer]: daquan : 1935 Requested By: PRINCE Wasserman Order Number: [id number] Reading MD: Stas Lock Measurements Intervals [place] Rate: 74 P: 57 [place]: 148 QRS: 3 QRSD: 78 T: 45 QT: 414 QTc: 459 Interpretive Statements Sinus rhythm with occasional premature ventricular complexes Low voltage QRS POOR R WAVE PROGRESSION SIMILAR TO 02/18/20 Electronically Signed on 06-22-2021 11:26:14 EST by Stas Lock
[2021-06-22 12:00] VITALS: BP 120/56
[2021-06-22] MEDS: ASPIRIN 81MG ENTERIC TABLET PO SCH (13:49)
[2021-06-22] MEDS: CLOPIDOGREL 75 MG TAB PO SCH (13:50)
[2021-06-22 16:00] VITALS: BP 143/63
[2021-06-22 19:24] VITALS: BP 140/62
[2021-06-22] MEDS: ATORVASTATIN 20 MG TAB PO SCH (20:44)
[2021-06-23 04:00] VITALS: BP 141/61
[2021-06-23 07:25] VITALS: BP 158/65
[2021-06-23 08:42] LABS: HEMOGLOBIN 12.2 g/dl (12.0-15.5); MEAN CORPUSCULAR HGB CONC 32.1 g/dl (32.0-36.5); MEAN CORPUSCULAR VOLUME 96.4 fl (80.0-96.0); PLATELET COUNT, AUTOMATED 163 10^3/uL (150-450); RED BLOOD COUNT 3.94 10^6/uL (4.00-5.40); WHITE BLOOD COUNT 6.5 10^3/uL (4.0-10.0)
[2021-06-23 09:00] LABS: ALBUMIN 2.9 GM/DL (3.2-5.2); ALT/SGPT 14 U/L (12-78); BILIRUBIN,TOTAL 0.7 MG/DL (0.2-1.0); BLOOD UREA NITROGEN 12 MG/DL (7-18); CALCIUM LEVEL 9.2 MG/DL (8.8-10.2); CARBON DIOXIDE LEVEL 26 MEQ/L (21-32); CHLORIDE LEVEL 111 MEQ/L (98-107); CREATININE FOR GFR 0.66 MG/DL (0.55-1.30); GLOMERULAR FILTRATION RATE > 60.0 (>32); GLUCOSE, FASTING 108 MG/DL (70-100); POTASSIUM SERUM 4.4 MEQ/L (3.5-5.1); SODIUM LEVEL 141 MEQ/L (136-145); TOTAL PROTEIN 6.6 GM/DL (6.4-8.2)
[2021-06-23] MEDS: ASPIRIN 81MG ENTERIC TABLET PO SCH (09:03)
[2021-06-23] MEDS: CLOPIDOGREL 75 MG TAB PO SCH (09:03)
[2021-06-23 11:42] VITALS: BP 159/67
--- NOTE | 2021-06-23 14:40 | REP ---
INDICATION: looking for metal/stents, needs MRI. COMPARISON: None TECHNIQUE: The exam was performed to estimate total stent length and total stent overlap length FINDINGS: In the pelvis there is is a total stent length on the right of 23 cm and on the left 13 cm In the right thigh there is a total stent length of 12.5 cm In the left thigh there is a total stent length of over 25 cm with 20 cm of stent overlap IMPRESSION: Single stent length alone precludes safe 3 T MRI examination. The overlapped stent length also seen today is in and of itself enough to preclude safe 3 T MRI. Total single stent length cannot be greater than 20 cm. <Electronically signed by Hari Ledbetter > 06/23/21 [id number]
--- NOTE | 2021-06-23 14:41 | REP ---
INDICATION: looking for metal/stents, needs MRI. COMPARISON: None. FINDINGS: None for possible stents. There are no stents in either lower leg. The bones are demineralized. There is no destructive osseous lead IMPRESSION: As above <Electronically signed by Hari Ledbetter > 06/23/21 [id number]
--- NOTE | 2021-06-23 14:41 | REP ---
INDICATION: looking for metal/stents, needs MRI. COMPARISON: None. TECHNIQUE: None 4 stent length FINDINGS: See the AP pelvis report IMPRESSION: See the AP pelvis report <Electronically signed by Hari Ledbetter > 06/23/21 [id number]
--- NOTE | 2021-06-23 16:02 | IPNPDOC ---
Date Seen The patient was seen on 06/23/21. Progress Note SUBJECTIVE: X-rays recommended by MRI department to further assess for stents. Discussed case with neurology who will see her today. Continues to have weakness of the left lower extremity and some mild left-sided facial droop. She denies any increased weakness, numbness, tingling, chest pain, shortness of breath. OBJECTIVE: PHYSICAL EXAMINATION: VITAL SIGNS: please see below General: NAD, comfortable in bed HEENT: PERRLA, EOMI, sclerae clear Neck: supple, normal ROM, no JVD Respiratory: lungs CTAB, no wheeze, no rales, no crackles CVS: RRR, normal S1, S2, no murmurs Abdo: soft, no masses, no hepatosplenomegaly, BS+, no rebound tenderness Skin:normal skin turgor, no cyanosis or rashes . Left leg ulcer, covered MSK: no joint deformities, normal ROM Neuro: mild left side facial droop, strength 3/5 of LLE. Strength 5/5 in all other extremities. Reflexes in tact in all extremities. No nystagmus. Psych: calm, cooperative, AAO x 3 LABORATORY DATA: See below. IMAGING: F/u XR of b/l femurs, pelvis, b/l tib/fib. CT head wo contrast (06/21/21): No evidence of fracture and no evidence of bleed. CXR (06/21/21): No acute infiltrate. C spine CT wo contrast (06/21/21): 1. No evidence of fracture. 2. Prominent degenerative changes with facet hypertrophy. 3. Prominent calcification atherosclerotic change right left carotid bifurcation. MICROBIOLOGY: Please see below. ASSESSMENT: 86-year-old female with a past medical history of coronary artery disease with stenting, COPD, hypertension, PVD s/p multiple stents placed, macular degeneration, importantly with a history of aortoiliac and femoral- popliteal artery stenting placed in the left leg in August 04 as well as a femoral artery bypass in 2019 along with chronic neuropathic pain in the left leg. Patient admitted PLAN: CVA with left side weakness -Slight improvement of left facial droop -No real improvement in LLE weakness -Unable to do MRI/MRA brain/neck due to history of multiple vascular stents, le ngths unknown. -Plan is to do XR's of b/l femurs, pelvis, b/l tib/fib. If found to be ok to do later, will order MRI/MRA -Other imaging above -Discussed with neurology who will see today -Diet modified. C/w PT/OT/ST and will likely need rehab at discharge. -C/w plavix, ASA, statin # Peripheral vascular disease -Hx of aortoiliac and femoral-popliteal artery stenting placed in the left leg, femoral artery bypass in 2019 -Known Coronary artery disease s/p stenting -Known carotid artery stenosis with whom she is following with Dr. Benjie Levine, [place] . F/u carotid US -C/w ASA, plavix, statin #L leg ulcer -No foul smell, stable, no s/s of further infection -Consider advanced wound care consult with Dr. Bush #Hypertension. -C/w home meds #Chronic pain. -Continue patient's home medications. # Hyperlipidemia. -c/w statin # DVT prophylaxis: -Lovenox DISPOSITION: Discussed further with Dr. Martell today. Will need rehab at discharge. Tried calling her daughter [place]i today at 4 PM, was not an option to leave voice mail due to mailbox not being set up yet. VS, I&O, 24H, Fishbone Vital Signs/I&O Vital Signs Date Time Temp Pulse Resp B/P (MAP) Pulse Ox O2 Delivery O2 Flow Rate FiO2 06/23/21 11:42 97.9 65 18 159/67 (97) 98 Room Air 06/22/21 07:30 2.0 I&O- Last 24 Hours up to 6 AM 06/23/21 06:00 Intake Total 960 ml Output Total 1000 ml Balance -40 ml Laboratory Data 24H LABS Laboratory Tests 2 06/23/21 08:22: Nucleated Red Blood Cells % (auto) 0.0, Anion Gap 4L, Glomerular Filtration Rate > 60.0, Calcium Level 9.2, Total Bilirubin 0.7, Aspartate Amino Transf (AST/SGOT) 18, Alanine Aminotransferase (ALT/SGPT) 14, Alkaline Phosphatase 63, Total Protein 6.6, Albumin 2.9L, Albumin/Globulin Ratio 0.8L CBC/BMP Laboratory Tests 06/23/21 08:22 Microbiology Microbiology 06/22/21 Urine Culture - Final, Complete Maile Pierre MD Jun 23, 2021 16:02
[2021-06-23 16:13] VITALS: BP 153/68
--- NOTE | 2021-06-23 17:13 | REP ---
INDICATION: CVA with left side deficits , known PVD COMPARISON: 02/25/2021 TECHNIQUE: Zheng scale and color Doppler evaluation using linear high frequency transducer Findings: FINDINGS: Two-dimensional zheng scale and color images demonstrate significant atheromatous plaquing through the bilateral carotid bulbs and proximal internal/external carotid arteries. Color Doppler interrogation demonstrates normal arterial wave patterns with elements of spectral broadening. Normal flow direction is appreciated in the bilateral vertebral arteries. ICA peak systolic velocity: Right 191.1 cm/s; Left 196.1 cm/s ICA diastolic velocity: Right 14.7 cm/s; Left 18.7 cm/s ECA peak systolic velocity: Right 181.7 cm/s; Left 135.7 cm/s CCA peak systolic velocity: Right 86.4 cm/s; Left 60.1 cm/s ICA/CCA ratio: Right 2.21 cm/s; Left 3.26 cm/s IMPRESSION: Narrowing is noted to be in the 50-60% range bilaterally. <Electronically signed by Ugo Alvarez > 06/23/21 [id number]
[2021-06-23 20:00] VITALS: BP 163/67
[2021-06-23] MEDS: ATORVASTATIN 20 MG TAB PO SCH (20:10)
[2021-06-24] VITALS: BP 160/71
[2021-06-24 04:00] VITALS: BP 154/70
[2021-06-24 07:01] LABS: HEMATOCRIT 40.2 % (36.0-47.0); HEMOGLOBIN 13.1 g/dl (12.0-15.5); MEAN CORPUSCULAR HEMOGLOBIN 31.2 pg (27.0-33.0); MEAN CORPUSCULAR HGB CONC 32.6 g/dl (32.0-36.5); MEAN CORPUSCULAR VOLUME 95.7 fl (80.0-96.0); PLATELET COUNT, AUTOMATED 209 10^3/uL (150-450); WHITE BLOOD COUNT 7.9 10^3/uL (4.0-10.0)
[2021-06-24 07:30] LABS: ALBUMIN 3.4 GM/DL (3.2-5.2); ALT/SGPT 15 U/L (12-78); BILIRUBIN,TOTAL 0.8 MG/DL (0.2-1.0); BLOOD UREA NITROGEN 14 MG/DL (7-18); CARBON DIOXIDE LEVEL 24 MEQ/L (21-32); CHLORIDE LEVEL 108 MEQ/L (98-107); CREATININE FOR GFR 0.74 MG/DL (0.55-1.30); GLOMERULAR FILTRATION RATE > 60.0 (>32); GLUCOSE, FASTING 107 MG/DL (70-100); POTASSIUM SERUM 3.7 MEQ/L (3.5-5.1); SODIUM LEVEL 142 MEQ/L (136-145); TOTAL PROTEIN 6.9 GM/DL (6.4-8.2)
[2021-06-24 08:00] VITALS: BP 156/84
[2021-06-24] MEDS: CLOPIDOGREL 75 MG TAB PO SCH (09:57)
[2021-06-24] MEDS: ASPIRIN 81MG ENTERIC TABLET PO SCH (09:57)
--- NOTE | 2021-06-24 11:10 | REPVR ---
PROCEDURE INFORMATION: Exam: CT Head Without Contrast Exam date and time: 06/24/2021 10:19 AM Age: 86 years old Clinical indication: Altered mental status/memory loss; Additional info: R/O CVA TECHNIQUE: Imaging protocol: Computed tomography of the head without contrast. Radiation optimization: All CT scans at this facility use at least one of these dose optimization techniques: automated exposure control; mA and/or kV adjustment per patient size (includes targeted exams where dose is matched to clinical indication); or iterative reconstruction. COMPARISON: CT Head without contrast 06/21/2021 10:35 PM FINDINGS: Brain: There is no acute intracranial hemorrhage or mass effect. Mild diffuse volume loss is within the range of normal for patient age. There are small vessel ischemic changes within the periventricular and subcortical white matter, but the normal arguelles/white matter delineation is maintained. Cerebral ventricles: No ventriculomegaly. Paranasal sinuses: Visualized sinuses are unremarkable. No fluid levels. Mastoid air cells: Visualized mastoid air cells are well aerated. Bones/joints: Unremarkable. No acute fracture. Soft tissues: Unremarkable. IMPRESSION: No acute hemorrhage or edema. Electronically signed by: Maria A Valdez On 06/24/2021 11:10:29 AM
--- NOTE | 2021-06-24 15:06 | DS.PDOC ---
Discharge Summary General Date of Admission Jun 22, 2021 at 06:01 Date of Discharge 06/24/21 Attending Physician: Maile Pierre MD Discharge Summary PROCEDURES PERFORMED DURING STAY: None ADMITTING DIAGNOSES: Slurred speech/weakness/falls r/o CVA L leg ulcer Peripheral vascular disease Hypertension Chronic pain Hyperlipidemia DISCHARGE DIAGNOSES: CVA with left side weakness Peripheral vascular disease L leg ulcer Hypertension. Chronic pain. Hyperlipidemia. COMPLICATIONS/CHIEF COMPLAINT: Generalized Weakness,Slurred Speech. HISTORY OF PRESENT ILLNESS: 86-year-old female with a past medical history of coronary artery disease, COPD, hypertension, peripheral vascular disease, macular degeneration, importantly with a history of aortoiliac and femoral-popliteal artery stenting placed in the left leg in August 04 as well as a femoral artery bypass in 2019 along with chronic neuropathic pain in the left leg. She is developed a chronic pain status post vascular surgery intervention and is has been following with vascular surgeon in [place]. Approximately 2 to 3 weeks ago she was started on Lyrica and has since developed worsening weakness generalized malaise and falls. HOSPITAL COURSE: She presented to the ER after developing slurred speech on the morning of 06/21/2021 [address]. Patient CT head without contrast was negative for intracranial bleed or ischemic CVA. At this point patient states that her slurred speech is getting slightly better but still persists. She denies any chest pain palpitations nausea vomiting diarrhea. She is currently on 2 L of oxygen and saturating well and states that she uses oxygen at home but only at [facility]. Patient be admitted to hospitalist service for the management of generalized weakness as well as slurred speech thought possibly to be due to Lyrica side effect. During her hospitalization the following issues were addressed/managed: CVA with left side weakness -Slight improvement of left facial droop -No real improvement in LLE weakness -Unable to do MRI/MRA brain/neck due to history of multiple vascular stents, lengths unknown- see XR's on file. -Other imaging above -Discussed with neurology who agrees with treatment currently and close follow up with vascular surgery - referral for continued rehab -C/w plavix, ASA, statin Peripheral vascular disease -Hx of aortoiliac and femoral-popliteal artery stenting placed in the left leg, femoral artery bypass in 2019 -Known Coronary artery disease s/p stenting -Carotid US done -C/w ASA, plavix, statin -To follow with Dr. Benjie Beltran leg ulcer -No foul smell, stable, no s/s of further infection -Consider advanced wound care consult with Dr. Bush Hypertension. -C/w home meds Chronic pain. -Continue patient's home medications. Hyperlipidemia. -c/w statin DISCHARGE MEDICATIONS: Please see below. ALLERGIES: Please see below. PHYSICAL EXAMINATION ON DISCHARGE: VITAL SIGNS: please see below General: NAD, comfortable in bed HEENT: PERRLA, EOMI, sclerae clear Neck: supple, normal ROM, no JVD Respiratory: lungs CTAB, no wheeze, no rales, no crackles CVS: RRR, normal S1, S2, no murmurs Abdo: soft, no masses, no hepatosplenomegaly, BS+, no rebound tenderness Skin:normal skin turgor, no cyanosis or rashes . Left leg ulcer, covered MSK: no joint deformities, normal ROM Neuro: mild left side facial droop, strength 4/5 of LLE. Strength 5/5 in all other extremities. Reflexes in tact in all extremities. No nystagmus. Psych: calm, cooperative, AAO x 3 LABORATORY DATA: See below. IMAGING: Carotid US: Narrowing is noted to be in the 50-60% range bilaterally. Repeat CT head without contrast 06/24/21: NO acute intracranial abnormality See chart for results of XR of b/l femurs, pelvis, b/l tib/fib.- many stents CT head wo contrast (06/21/21): No evidence of fracture and no evidence of bleed. CXR (06/21/21): No acute infiltrate. C spine CT wo contrast (06/21/21): 1. No evidence of fracture. 2. Prominent degenerative changes with facet hypertrophy. 3. Prominent calcification atherosclerotic change right left carotid bifurcation. PROGNOSIS: Good ACTIVITY: As tolerated DIET: 2 gm sodium DISPOSITION: D/c home today with referral DISCHARGE INSTRUCTIONS: 1. Please follow up with primary care provider and vascular surgery after discharge. 2. No new medications were added this admission. 3. If you have any increased slurred speech, facial drooping, drooling, increase d weakness of any kind please let a medical provider know immediately. DISCHARGE CONDITION:Stable TIME SPENT ON DISCHARGE: 35 minutes. Vital Signs/I&Os Vital Signs Date Time Temp Pulse Resp B/P (MAP) Pulse Ox O2 Delivery O2 Flow Rate FiO2 06/24/21 08:00 97.4 64 16 156/84 (108) 93 Room Air 06/22/21 07:30 2.0 I&O- Last 24 Hours up to 6 AM 06/24/21 06:00 Intake Total 240 ml Output Total 800 ml Balance -560 ml Laboratory Data Labs 24H Laboratory Tests 2 06/24/21 06:26: Nucleated Red Blood Cells % (auto) 0.0, Anion Gap 10, Glomerular Filtration Rate > 60.0, Calcium Level 9.0, Total Bilirubin 0.8, Aspartate Amino Transf (AST/SGOT) 21, Alanine Aminotransferase (ALT/SGPT) 15, Alkaline Phosphatase 66, Total Protein 6.9, Albumin 3.4, Albumin/Globulin Ratio 1.0L CBC/BMP Laboratory Tests 06/24/21 06:26 Microbiology Microbiology 06/22/21 Urine Culture - Final, Complete Discharge Medications Scheduled Aspirin (Aspirin EC) 81 Mg Tablet.dr, 81 MG PO DAILY, (Reported) Atorvastatin Calcium (Atorvastatin Calcium) 40 Mg Tab, 40 MG PO QHS, (Reported) Carvedilol (Carvedilol) 3.125 Mg Tab, 3.125 MG PO BID, (Reported) Cholecalciferol (Vitamin D3) (Vitamin D3) 1,000 Unit Tablet, 1,000 UNITS PO QHS, (Reported) Clopidogrel Bisulfate (Plavix) 75 Mg Tab, 75 MG PO DAILY, (Reported) Collagenase Clostridium Hist. (Santyl) 30 Gm Oint...g., 1 DOSE TOP QPM, (Reported) TAKES IN AFTERNOON Ferrous Sulfate (Ferrous Sulfate) 325 Mg Tablet, 325 MG PO BID, (Reported) Furosemide (Furosemide) 20 Mg Tab, 20 MG PO DAILY, (Reported) Gabapentin (Gabapentin) 300 Mg Capsule, 300 MG PO TID, (Reported) Lisinopril (Lisinopril) 2.5 Mg Tablet, 2.5 MG PO QHS, (Reported) Metronidazole (Metronidazole) 500 Mg Tablet, 500 MG PO TID, (Reported) Pantoprazole Sodium (Pantoprazole Sodium) 40 Mg Tab, 40 MG PO DAILY, (Reported) Potassium Chloride (Klor-Con M10) 10 Meq Tabcr, 10 MEQ PO BID, (Reported) Salmeterol/Fluticasone (Advair 250-50 Diskus) 14 Puff/Inhaler Aerp, 1 PUFF INH BID, (Reported) Vit A/Vit C/Vit E/Zinc/Copper (Preservision Areds Softgel) 1 Cap Cap, 1 CAP PO QHS, (Reported) Scheduled PRN Nitroglycerin (Nitrostat) 0.4 Mg Tab.subl, 0.4 MG SL NITRO PRN for CHEST PAIN, (Reported) Tramadol HCl (Tramadol HCl) 50 Mg Tablet, 50 MG PO TID PRN for MODERATE/SEVERE PAIN (PS 5-10), (Reported) Allergies Coded Allergies: Penicillins (Verified Allergy, Mild, RASH, TONGUE AND FACIAL SWELLING, 02/18/20) vancomycin (Verified Allergy, Unknown, UNKNOWN REACTION, 02/25/21) ciprofloxacin (Verified Adverse Reaction, Intermediate, TREMORS/ANXIETY/NAUSEA/VOMITING, 02/18/20) Maile Pierre MD Jun 24, 2021 15:06
== END 2021-06-24 16:00 | disposition home health service (06) | DRG 65 ==
LOC: M ED 21:57 → M ED INP 06-22 06:01 → ENRESERV 06-22 06:13 → M PCU 06-22 07:46
PROVIDERS: ADMIT Family Medicine; ATTEND Internal Medicine
DX: I63.9 Cerebral infarction, unspecified (principal); L97.929 Non-pressure chronic ulcer of unspecified part of left lower leg with unspecified severity; R53.1 Weakness; I25.10 Atherosclerotic heart disease of native coronary artery without angina pectoris; J44.9 Chronic obstructive pulmonary disease, unspecified; I10 Essential (primary) hypertension; I73.9 Peripheral vascular disease, unspecified; H35.30 Unspecified macular degeneration; Z95.5 Presence of coronary angioplasty implant and graft; G62.9 Polyneuropathy, unspecified; Z99.81 Dependence on supplemental oxygen; I25.2 Old myocardial infarction; Z86.73 Personal history of transient ischemic attack (TIA), and cerebral infarction without residual deficits; Z98.41 Cataract extraction status, right eye; Z98.42 Cataract extraction status, left eye; R47.81 Slurred speech; Z20.822 Contact with and (suspected) exposure to COVID-19; Z79.82 Long term (current) use of aspirin; Z79.899 Other long term (current) drug therapy; Z88.0 Allergy status to penicillin; Z88.1 Allergy status to other antibiotic agents; Z95.828 Presence of other vascular implants and grafts; R29.810 Facial weakness; R29.6 Repeated falls; E78.5 Hyperlipidemia, unspecified

== ENCOUNTER 2021-07-03 14:06 | Inpatient (IN) | payer MEDICARE ==
[~2021-07-03] VITALS: Ht 162.6 cm; Wt 53.2 kg
[~2021-07-03 14:06] MED LIST changes: +ASPI-161 PO; +ASPI81CH33 PO; +GABA-282 PO; -LISI-898 PO; +LISI5TAB11 PO; +METR-265 PO; +SANT250O8 TOP
[2021-07-03] MEDS ORDERED: FLUT1INH3 INH (14:31)
[2021-07-03 15:38] LABS: HEMATOCRIT 37.5 % (36.0-47.0); HEMOGLOBIN 12.1 g/dl (12.0-15.5); MEAN CORPUSCULAR HEMOGLOBIN 31.5 pg (27.0-33.0); MEAN CORPUSCULAR HGB CONC 32.3 g/dl (32.0-36.5); MEAN CORPUSCULAR VOLUME 97.7 fl (80.0-96.0); PLATELET COUNT, AUTOMATED 212 10^3/uL (150-450); RED BLOOD COUNT 3.84 10^6/uL (4.00-5.40); WHITE BLOOD COUNT 8.2 10^3/uL (4.0-10.0)
[2021-07-03 16:03] LABS: BLOOD UREA NITROGEN 17 MG/DL (7-18); CARBON DIOXIDE LEVEL 28 MEQ/L (21-32); CHLORIDE LEVEL 107 MEQ/L (98-107); CREATININE FOR GFR 0.73 MG/DL (0.55-1.30); GLOMERULAR FILTRATION RATE > 60.0 (>32); GLUCOSE, FASTING 148 MG/DL (70-100); POTASSIUM SERUM 4.1 MEQ/L (3.5-5.1); SODIUM LEVEL 140 MEQ/L (136-145)
[2021-07-03] MEDS ORDERED: PREG75CA2 PO (16:42)
[2021-07-03] MEDS ORDERED: HOME MED LIST COMPLETE! XX SCH (17:15)
[2021-07-03 17:16] LABS: RSV AMPLIFICATION NEGATIVE (NEGATIVE)
[2021-07-03] MEDS ORDERED: ISOVUE-370 76% 100ML VIAL As Ordered ONE (17:23)
[2021-07-03] MEDS: GABAPENTIN 300 MG CAP PO SCH ×2 (17:58→21:00)
[2021-07-03] MEDS: ENOXAPARIN 40MG/0.4ML SYRINGE (J1650 PER 10MG) SC SCH (17:59)
[2021-07-03] MEDS: VITAMIN D 1,000 INTERNATIONAL UNITS TABLET PO SCH (21:00)
[2021-07-03] MEDS ORDERED: LISINOPRIL *2.5 MG* TAB PO SCH (21:00)
[2021-07-03] MEDS: ATORVASTATIN 20 MG TAB PO SCH (21:00)
[2021-07-03] MEDS: SANTYL OINT 30GM TOP SCH (21:00)
[2021-07-03] MEDS: OCUVITE 1 TAB PO SCH (21:00)
[2021-07-03] MEDS ORDERED: CARVedilol 3.125 MG TAB PO SCH (21:00)
[2021-07-03] MEDS: FERROUS SULFATE 325MG TAB PO SCH (21:00)
[2021-07-04 01:50] VITALS: BP 126/60
[2021-07-04] MEDS: NS 1,000 ML IV SCH ×2 (03:00→14:08)
[2021-07-04] MEDS: KETOROLAC 30 MG/ML 1ML VIAL IV PRN ×3 (03:22→22:35)
[2021-07-04 04:00] VITALS: BP 147/66
[2021-07-04 04:51] LABS: HEMATOCRIT 36.6 % (36.0-47.0); HEMOGLOBIN 11.9 g/dl (12.0-15.5); MEAN CORPUSCULAR HEMOGLOBIN 31.3 pg (27.0-33.0); MEAN CORPUSCULAR HGB CONC 32.5 g/dl (32.0-36.5); MEAN CORPUSCULAR VOLUME 96.3 fl (80.0-96.0); PLATELET COUNT, AUTOMATED 200 10^3/uL (150-450); WHITE BLOOD COUNT 7.8 10^3/uL (4.0-10.0)
[2021-07-04 05:10] LABS: BLOOD UREA NITROGEN 13 MG/DL (7-18); CALCIUM LEVEL 8.6 MG/DL (8.8-10.2); CARBON DIOXIDE LEVEL 28 MEQ/L (21-32); CHLORIDE LEVEL 108 MEQ/L (98-107); GLOMERULAR FILTRATION RATE > 60.0 (>32); GLUCOSE, FASTING 124 MG/DL (70-100); MAGNESIUM LEVEL 1.5 MG/DL (1.8-2.4); PHOSPHORUS LEVEL 2.6 MG/DL (2.5-4.9); POTASSIUM SERUM 3.8 MEQ/L (3.5-5.1); SODIUM LEVEL 141 MEQ/L (136-145)
[2021-07-04 07:24] VITALS: BP 136/62
[2021-07-04] MEDS: ENOXAPARIN 40MG/0.4ML SYRINGE (J1650 PER 10MG) SC SCH (09:59)
[2021-07-04] MEDS: CLOPIDOGREL 75 MG TAB PO SCH (09:59)
[2021-07-04] MEDS: PANTOPRAZOLE 40MG TAB (PROTONIX) PO SCH (09:59)
[2021-07-04] MEDS: GABAPENTIN 300 MG CAP PO SCH (09:59)
[2021-07-04] MEDS: FERROUS SULFATE 325MG TAB PO SCH (09:59)
[2021-07-04] MEDS: FUROSEMIDE 20 MG TAB PO SCH (09:59)
[2021-07-04] MEDS: ASPIRIN 81MG ENTERIC TABLET PO SCH (09:59)
[2021-07-04] MEDS: traMADol 50 MG TAB PO PRN ×2 (10:57→22:35)
[2021-07-04] MEDS ORDERED: POTASSIUM CHLORIDE 10MEQ SR TABLET PO ONE (12:00)
[2021-07-04] MEDS ORDERED: MAGNESIUM OXIDE 400MG TAB (MAG-OX) PO ONE (12:00)
[2021-07-04] MEDS: CARVedilol 3.125 MG TAB PO SCH (12:26)
[2021-07-04] MEDS: LISINOPRIL *2.5 MG* TAB PO SCH (12:27)
[2021-07-04 14:59] VITALS: BP 155/70
[2021-07-04] MEDS ORDERED: GABAPENTIN 300 MG CAP PO SCH (16:00)
[2021-07-04] MEDS: ADVAIR HFA 115/21MCG INHALER INH SCH (18:12)
[2021-07-04 20:00] VITALS: BP 137/81
[2021-07-04] MEDS: FERROUS SULFATE 300MG/5ML UDC LIQUID PO SCH (21:00)
[2021-07-04] MEDS: OCUVITE 1 TAB PO SCH (21:00)
[2021-07-04] MEDS: ATORVASTATIN 20 MG TAB PO SCH (21:03)
[2021-07-04] MEDS: VITAMIN D 1,000 INTERNATIONAL UNITS TABLET PO SCH (21:03)
[2021-07-04] MEDS: SANTYL OINT 30GM TOP SCH (21:08)
[2021-07-05 06:00] VITALS: BP 116/56
[2021-07-05 06:09] LABS: HEMATOCRIT 33.1 % (36.0-47.0); MEAN CORPUSCULAR HEMOGLOBIN 32.2 pg (27.0-33.0); MEAN CORPUSCULAR HGB CONC 33.2 g/dl (32.0-36.5); MEAN CORPUSCULAR VOLUME 96.8 fl (80.0-96.0); PLATELET COUNT, AUTOMATED 172 10^3/uL (150-450); RED BLOOD COUNT 3.42 10^6/uL (4.00-5.40); WHITE BLOOD COUNT 5.3 10^3/uL (4.0-10.0)
[2021-07-05] MEDS: KETOROLAC 30 MG/ML 1ML VIAL IV PRN (06:22)
[2021-07-05 06:38] LABS: BLOOD UREA NITROGEN 12 MG/DL (7-18); CALCIUM LEVEL 8.1 MG/DL (8.8-10.2); CARBON DIOXIDE LEVEL 25 MEQ/L (21-32); CHLORIDE LEVEL 110 MEQ/L (98-107); CREATININE FOR GFR 0.62 MG/DL (0.55-1.30); GLOMERULAR FILTRATION RATE > 60.0 (>32); GLUCOSE, FASTING 100 MG/DL (70-100); MAGNESIUM LEVEL 1.9 MG/DL (1.8-2.4); PHOSPHORUS LEVEL 2.8 MG/DL (2.5-4.9); POTASSIUM SERUM 3.9 MEQ/L (3.5-5.1); SODIUM LEVEL 142 MEQ/L (136-145)
[2021-07-05] MEDS: ADVAIR HFA 115/21MCG INHALER INH SCH ×2 (07:41→19:40)
[2021-07-05] MEDS: PANTOPRAZOLE 40MG TAB (PROTONIX) PO SCH (08:26)
[2021-07-05] MEDS: ENOXAPARIN 40MG/0.4ML SYRINGE (J1650 PER 10MG) SC SCH (08:26)
[2021-07-05] MEDS: ASPIRIN 81MG ENTERIC TABLET PO SCH (08:27)
[2021-07-05] MEDS: CLOPIDOGREL 75 MG TAB PO SCH (08:27)
[2021-07-05] MEDS: FUROSEMIDE 20 MG TAB PO SCH (08:27)
[2021-07-05] MEDS: LISINOPRIL *2.5 MG* TAB PO SCH (08:32)
[2021-07-05] MEDS: CARVedilol 3.125 MG TAB PO SCH (08:32)
[2021-07-05] MEDS: FERROUS SULFATE 300MG/5ML UDC LIQUID PO SCH ×2 (08:40→21:04)
[2021-07-05] MEDS: traMADol 50 MG TAB PO PRN ×2 (12:06→21:05)
[2021-07-05] MEDS: MIRALAX *UNIT DOSE* 17GM PACKET PO SCH (12:12)
[2021-07-05 14:00] VITALS: BP 136/64
[2021-07-05] MEDS: OCUVITE 1 TAB PO SCH (21:04)
[2021-07-05] MEDS: VITAMIN D 1,000 INTERNATIONAL UNITS TABLET PO SCH (21:04)
[2021-07-05] MEDS: ATORVASTATIN 20 MG TAB PO SCH (21:04)
[2021-07-05] MEDS: SANTYL OINT 30GM TOP SCH (21:09)
[2021-07-05 22:00] VITALS: BP 149/65
[2021-07-06 06:00] VITALS: BP 129/70
[2021-07-06] MEDS: ADVAIR HFA 115/21MCG INHALER INH SCH (07:11)
[2021-07-06 07:13] LABS: HEMATOCRIT 33.9 % (36.0-47.0); HEMOGLOBIN 11.3 g/dl (12.0-15.5); MEAN CORPUSCULAR HEMOGLOBIN 32.1 pg (27.0-33.0); MEAN CORPUSCULAR HGB CONC 33.3 g/dl (32.0-36.5); MEAN CORPUSCULAR VOLUME 96.3 fl (80.0-96.0); PLATELET COUNT, AUTOMATED 168 10^3/uL (150-450); RED BLOOD COUNT 3.52 10^6/uL (4.00-5.40); WHITE BLOOD COUNT 5.8 10^3/uL (4.0-10.0)
[2021-07-06 07:45] LABS: BLOOD UREA NITROGEN 9 MG/DL (7-18); CALCIUM LEVEL 8.4 MG/DL (8.8-10.2); CARBON DIOXIDE LEVEL 27 MEQ/L (21-32); CHLORIDE LEVEL 107 MEQ/L (98-107); CREATININE FOR GFR 0.52 MG/DL (0.55-1.30); GLOMERULAR FILTRATION RATE > 60.0 (>32); GLUCOSE, FASTING 94 MG/DL (70-100); MAGNESIUM LEVEL 1.9 MG/DL (1.8-2.4); PHOSPHORUS LEVEL 3.9 MG/DL (2.5-4.9); POTASSIUM SERUM 3.5 MEQ/L (3.5-5.1); SODIUM LEVEL 142 MEQ/L (136-145)
[2021-07-06] MEDS: traMADol 50 MG TAB PO PRN (08:07)
[2021-07-06] MEDS: CLOPIDOGREL 75 MG TAB PO SCH (08:08)
[2021-07-06] MEDS: PANTOPRAZOLE 40MG TAB (PROTONIX) PO SCH (08:08)
[2021-07-06] MEDS: ASPIRIN 81MG ENTERIC TABLET PO SCH (08:08)
[2021-07-06] MEDS: FUROSEMIDE 20 MG TAB PO SCH (08:08)
[2021-07-06 08:11] VITALS: BP 135/64
[2021-07-06] MEDS: LISINOPRIL *2.5 MG* TAB PO SCH (08:11)
[2021-07-06] MEDS: CARVedilol 3.125 MG TAB PO SCH (08:11)
[2021-07-06] MEDS: FERROUS SULFATE 300MG/5ML UDC LIQUID PO SCH (08:12)
[2021-07-06] MEDS: ENOXAPARIN 40MG/0.4ML SYRINGE (J1650 PER 10MG) SC SCH (08:12)
[2021-07-06] MEDS: MIRALAX *UNIT DOSE* 17GM PACKET PO SCH (08:13)
== END 2021-07-06 13:41 | disposition home or self-care (01) | DRG 73 ==
LOC: EDBD 14:06 → M ED 14:06 → M ED INP 16:53 → M PCU 07-04 01:34 → M MSPAV 07-05 00:24
PROVIDERS: ADMIT Internal Medicine; ATTEND Internal Medicine
DX: G57.92 Unspecified mononeuropathy of left lower limb (principal); G92.8 Other toxic encephalopathy; R47.81 Slurred speech; T42.6X5A Adverse effect of other antiepileptic and sedative-hypnotic drugs, initial encounter; I25.10 Atherosclerotic heart disease of native coronary artery without angina pectoris; J44.9 Chronic obstructive pulmonary disease, unspecified; Z99.81 Dependence on supplemental oxygen; I10 Essential (primary) hypertension; I73.9 Peripheral vascular disease, unspecified; H35.30 Unspecified macular degeneration; Z95.828 Presence of other vascular implants and grafts; Z95.5 Presence of coronary angioplasty implant and graft; G62.9 Polyneuropathy, unspecified; I25.2 Old myocardial infarction; Z86.73 Personal history of transient ischemic attack (TIA), and cerebral infarction without residual deficits; Z87.891 Personal history of nicotine dependence; Z98.41 Cataract extraction status, right eye; Z98.42 Cataract extraction status, left eye; Z20.822 Contact with and (suspected) exposure to COVID-19; Z79.82 Long term (current) use of aspirin; Z79.899 Other long term (current) drug therapy; Z88.0 Allergy status to penicillin; Z88.1 Allergy status to other antibiotic agents; I65.23 Occlusion and stenosis of bilateral carotid arteries; Z66 Do not resuscitate

== ENCOUNTER → 2021-07-13 | Outpatient (REF) | payer MEDICARE ==
[~2021-07-13] MED LIST changes: +FLUT1INH3 INH; +LISI-898 PO; -LISI5TAB11 PO; +PREG75CA2 PO
[2021-07-14 11:35] LABS: BASO # 0.1 10^3/uL (0.0-0.2); BASO % 0.7 % (0.0-1.0); EOS # 0.1 10^3/uL (0.0-0.5); HEMOGLOBIN 14.4 g/dl (12.0-15.5); LYMPH # 2.1 10^3/uL (1.5-5.0); LYMPH % 22.5 % (24.0-44.0); MEAN CORPUSCULAR HEMOGLOBIN 31.3 pg (27.0-33.0); MEAN CORPUSCULAR VOLUME 97.8 fl (80.0-96.0); MONO % 10.3 % (2.0-8.0); NEUTROPHILS % 65.2 % (36.0-66.0); PLATELET COUNT, AUTOMATED 242 10^3/uL (150-450); WHITE BLOOD COUNT 9.2 10^3/uL (4.0-10.0)
[2021-07-14 12:00] LABS: ALBUMIN 4.2 GM/DL (3.2-5.2); BILIRUBIN,TOTAL 0.7 MG/DL (0.2-1.0); C REACTIVE PROTEIN QUANTITATIV 0.3 MG/DL (0.00-0.30); CALCIUM LEVEL 9.6 MG/DL (8.8-10.2); CREATININE FOR GFR 0.98 MG/DL (0.55-1.30); GLOMERULAR FILTRATION RATE 57.4 (>32); POTASSIUM SERUM 4.3 MEQ/L (3.5-5.1); TOTAL PROTEIN 7.8 GM/DL (6.4-8.2)
[2021-07-14 12:08] LABS: ERYTHROCYTE SEDIMENTATION RATE 19 mm/hr (0-30)
== END ==
LOC: M LABDRAWC 10:59
PROVIDERS: ATTEND Internal Medicine Infectious Disease
DX: B99.9 Unspecified infectious disease (principal)
CPT/HCPCS: 36415; 80053; 85025; 85652; 86140; G0463

== ENCOUNTER → 2021-07-15 | Outpatient (REF) | payer MEDICARE ==
[~2021-07-15] MED LIST changes: +ACET-683 PO; +AMOX875T2 PO; +BACITAB PO; +DOXY100T PO; +DULC10SU2 PR; +DULO1CAP4 PO; +DULO30CA9 PO; +FLOM0.4C39 PO; +FLUC100T3 PO; +IPRA0.00 NEB; +LEVO500T4 PO; -LISI-898 PO; +LISI5TAB11 PO; +MILKSUS3 PO; +OXYC-517 PO; +SENN1TAB41 PO
[2021-07-15 16:20] LABS: APPEARANCE, URINE HAZY (CLEAR); BACTERIA, URINE AUTO NEGATIVE (NEGATIVE); BILIRUBIN, URINE AUTO NEGATIVE (NEGATIVE); BLOOD, URINE BLOOD NEGATIVE (NEGATIVE); COLOR, URINE YELLOW (YELLOW); GLUCOSE, URINE (UA) AUTO NEGATIVE (NEGATIVE); KETONE, URINE AUTO 1+ mg/dL (NEGATIVE); LEUKOCYTE ESTERASE, URINE AUTO 1+ (NEGATIVE); MUCUS, URINE SMALL (NEGATIVE); NITRITE, URINE AUTO NEGATIVE (NEGATIVE); PROTEIN, URINE AUTO NEGATIVE (NEGATIVE); RBC, URINE AUTO 2 /HPF (0-3); SPECIFIC GRAVITY URINE AUTO 1.019 (1.002-1.035); SQUAMOUS EPITHELIAL CELL UR AU 3 /HPF (0-6); UROBILINOGEN, URINE AUTO 0.2 mg/dL (0.0-2.0); WBC, URINE AUTO 8 /HPF (0-3)
== END ==
LOC: M SFHCCAPE 13:39
PROVIDERS: ATTEND Physician Assistant
DX: Z09 Encounter for follow-up examination after completed treatment for conditions other than malignant neoplasm (principal); R63.0 Anorexia; R11.0 Nausea; Z79.899 Other long term (current) drug therapy

== ENCOUNTER → 2021-07-20 | Outpatient (REF) | payer MEDICARE ==
[~2021-07-20] MED LIST changes: -ACET-683 PO; -AMOX875T2 PO; -BACITAB PO; -DOXY100T PO; -DULC10SU2 PR; -DULO1CAP4 PO; -DULO30CA9 PO; -FLOM0.4C39 PO; -FLUC100T3 PO; -IPRA0.00 NEB; -LEVO500T4 PO; +LISI-898 PO; -LISI5TAB11 PO; -MILKSUS3 PO; -OXYC-517 PO; -SENN1TAB41 PO
[2021-07-20 16:02] LABS: BASO # 0.1 10^3/uL (0.0-0.2); BASO % 0.8 % (0.0-1.0); EOS # 0.2 10^3/uL (0.0-0.5); EOS % 2.5 % (0.0-3.0); HEMATOCRIT 41.8 % (36.0-47.0); HEMOGLOBIN 13.8 g/dl (12.0-15.5); LYMPH # 1.6 10^3/uL (1.5-5.0); LYMPH % 22.8 % (24.0-44.0); MEAN CORPUSCULAR HEMOGLOBIN 31.9 pg (27.0-33.0); MEAN CORPUSCULAR VOLUME 96.5 fl (80.0-96.0); MONO # 0.8 10^3/uL (0.0-0.8); MONO % 10.8 % (2.0-8.0); NEUTROPHILS # 4.4 10^3/uL (1.5-8.5); PLATELET COUNT, AUTOMATED 164 10^3/uL (150-450); RED BLOOD COUNT 4.33 10^6/uL (4.00-5.40); WHITE BLOOD COUNT 7.1 10^3/uL (4.0-10.0)
[2021-07-20 16:42] LABS: ALBUMIN 3.9 GM/DL (3.2-5.2); ALT/SGPT 12 U/L (12-78); BILIRUBIN,TOTAL 0.6 MG/DL (0.2-1.0); BLOOD UREA NITROGEN 21 MG/DL (7-18); CALCIUM LEVEL 9.6 MG/DL (8.8-10.2); CARBON DIOXIDE LEVEL 29 MEQ/L (21-32); CHLORIDE LEVEL 99 MEQ/L (98-107); CREATININE FOR GFR 0.87 MG/DL (0.55-1.30); GLOMERULAR FILTRATION RATE > 60.0 (>32); GLUCOSE, FASTING 131 MG/DL (70-100); IRON (FE) 110 UG/DL (50-170); NT-PRO BNP 299 PG/ML (<450); POTASSIUM SERUM 4.3 MEQ/L (3.5-5.1); SODIUM LEVEL 137 MEQ/L (136-145); TOTAL PROTEIN 7.1 GM/DL (6.4-8.2)
[2021-07-20 16:43] LABS: TOTAL 25(OH) VITAMIN D 54.5 NG/ML (30.0-100.0)
[2021-07-20 16:44] LABS: VITAMIN B12 LEVEL 455 PG/ML
[2021-07-20 16:45] LABS: FOLATE 20.5 NG/ML
== END ==
LOC: M SFHCCAPE 11:56
PROVIDERS: ATTEND Physician Assistant
DX: Z09 Encounter for follow-up examination after completed treatment for conditions other than malignant neoplasm (principal); R63.0 Anorexia; R11.0 Nausea; Z79.899 Other long term (current) drug therapy
CPT/HCPCS: 36415; 80053; 82306; 82607; 82746; 83540; 83880; 84443; 85025; G0463

== ENCOUNTER → 2021-08-30 | Outpatient (REF) | payer MEDICARE, BC, OTHER ==
[~2021-08-30] MED LIST changes: -LISI-898 PO; +LISI5TAB11 PO
[2021-08-30 10:26] LABS: HEMATOCRIT 32.1 % (36.0-47.0); HEMOGLOBIN 10.3 g/dl (12.0-15.5); MEAN CORPUSCULAR HEMOGLOBIN 31.4 pg (27.0-33.0); MEAN CORPUSCULAR HGB CONC 32.1 g/dl (32.0-36.5); MEAN CORPUSCULAR VOLUME 97.9 fl (80.0-96.0); PLATELET COUNT, AUTOMATED 434 10^3/uL (150-450); RED BLOOD COUNT 3.28 10^6/uL (4.00-5.40); WHITE BLOOD COUNT 14.9 10^3/uL (4.0-10.0)
[2021-08-30 10:55] LABS: ERYTHROCYTE SEDIMENTATION RATE 83 mm/hr (0-30)
[2021-08-30 11:33] LABS: BLOOD UREA NITROGEN 12 MG/DL (7-18); CALCIUM LEVEL 8.3 MG/DL (8.8-10.2); CARBON DIOXIDE LEVEL 22 MEQ/L (21-32); CHLORIDE LEVEL 106 MEQ/L (98-107); CREATININE FOR GFR 0.57 MG/DL (0.55-1.30); GLOMERULAR FILTRATION RATE > 60.0 (>32); GLUCOSE, FASTING 185 MG/DL (70-100); POTASSIUM SERUM 4.1 MEQ/L (3.5-5.1); SODIUM LEVEL 140 MEQ/L (136-145)
== END ==
PROVIDERS: ATTEND Physician Assistant
DX: T86.822 Skin graft (allograft) (autograft) infection (principal)

== ENCOUNTER → 2021-09-01 | Outpatient (REF) | payer MEDICARE, BC, OTHER ==
[~2021-09-01] MED LIST changes: +ACET-683 PO; +AMOX875T2 PO; +BACITAB PO; +DOXY100T PO; +DULC10SU2 PR; +DULO1CAP4 PO; +DULO30CA9 PO; +FLOM0.4C39 PO; +FLUC100T3 PO; +IPRA0.00 NEB; +LEVO500T4 PO; +MILKSUS3 PO; +OXYC-517 PO; +SENN1TAB41 PO
[2021-09-01 09:20] LABS: HEMOGLOBIN 10.8 g/dl (12.0-15.5); MEAN CORPUSCULAR HEMOGLOBIN 31.7 pg (27.0-33.0); MEAN CORPUSCULAR HGB CONC 31.8 g/dl (32.0-36.5); MEAN CORPUSCULAR VOLUME 99.7 fl (80.0-96.0); PLATELET COUNT, AUTOMATED 465 10^3/uL (150-450); RED BLOOD COUNT 3.41 10^6/uL (4.00-5.40); WHITE BLOOD COUNT 14.5 10^3/uL (4.0-10.0)
[2021-09-01 09:40] LABS: BLOOD UREA NITROGEN 9 MG/DL (7-18); C REACTIVE PROTEIN QUANTITATIV 3.01 MG/DL (0.00-0.30); CALCIUM LEVEL 8.3 MG/DL (8.8-10.2); CARBON DIOXIDE LEVEL 24 MEQ/L (21-32); CHLORIDE LEVEL 107 MEQ/L (98-107); CREATININE FOR GFR 0.51 MG/DL (0.55-1.30); GLOMERULAR FILTRATION RATE > 60.0 (>32); GLUCOSE, FASTING 115 MG/DL (70-100); POTASSIUM SERUM 4.3 MEQ/L (3.5-5.1); SODIUM LEVEL 139 MEQ/L (136-145)
[2021-09-01 09:42] LABS: ERYTHROCYTE SEDIMENTATION RATE 73 mm/hr (0-30)
== END ==
PROVIDERS: ATTEND Internal Medicine
DX: Z47.81 Encounter for orthopedic aftercare following surgical amputation (principal); Z89.612 Acquired absence of left leg above knee; Z79.899 Other long term (current) drug therapy

== ENCOUNTER → 2021-09-06 | Outpatient (REF) | payer MEDICARE, BC, OTHER | PROVIDERS: ATTEND Physician Assistant | DX: Z47.81 Encounter for orthopedic aftercare following surgical amputation (principal); Z89.612 Acquired absence of left leg above knee; Z53.9 Procedure and treatment not carried out, unspecified reason ==

== ENCOUNTER 2021-09-18 13:10 | Inpatient (IN) | payer MEDICARE, BC ==
[~2021-09-18] VITALS: Ht 160 cm; Wt 41.4 kg
[~2021-09-18 13:10] MED LIST changes: -ACET-683 PO; -AMOX875T2 PO; -BACITAB PO; -DOXY100T PO; -DULC10SU2 PR; -DULO1CAP4 PO; -DULO30CA9 PO; -FLOM0.4C39 PO; -FLUC100T3 PO; -IPRA0.00 NEB; -LEVO500T4 PO; -MILKSUS3 PO; -OXYC-517 PO; -SENN1TAB41 PO
[2021-09-18 14:21] LABS: BASO % 0.4 % (0.0-1.0); EOS # 0.1 10^3/uL (0.0-0.5); EOS % 1.2 % (0.0-3.0); HEMATOCRIT 30.1 % (36.0-47.0); HEMOGLOBIN 9.2 g/dl (12.0-15.5); LYMPH # 0.5 10^3/uL (1.5-5.0); LYMPH % 5.5 % (24.0-44.0); MEAN CORPUSCULAR HEMOGLOBIN 31.7 pg (27.0-33.0); MEAN CORPUSCULAR HGB CONC 30.6 g/dl (32.0-36.5); MEAN CORPUSCULAR VOLUME 103.8 fl (80.0-96.0); MONO # 0.9 10^3/uL (0.0-0.8); MONO % 9.6 % (2.0-8.0); NEUTROPHILS # 7.9 10^3/uL (1.5-8.5); NEUTROPHILS % 81.8 % (36.0-66.0); PLATELET COUNT, AUTOMATED 381 10^3/uL (150-450); WHITE BLOOD COUNT 9.7 10^3/uL (4.0-10.0)
[2021-09-18 14:29] LABS: APPEARANCE, URINE CLOUDY (CLEAR); BACTERIA, URINE AUTO 1+ (NEGATIVE); BILIRUBIN, URINE AUTO NEGATIVE (NEGATIVE); BLOOD, URINE BLOOD 1+ (NEGATIVE); COLOR, URINE YELLOW (YELLOW); GLUCOSE, URINE (UA) AUTO NEGATIVE (NEGATIVE); KETONE, URINE AUTO NEGATIVE (NEGATIVE); LEUKOCYTE ESTERASE, URINE AUTO 3+ (NEGATIVE); MUCUS, URINE SMALL (NEGATIVE); NITRITE, URINE AUTO NEGATIVE (NEGATIVE); PROTEIN, URINE AUTO 1+ mg/dL (NEGATIVE); RBC, URINE AUTO 76 /HPF (0-3); SPECIFIC GRAVITY URINE AUTO 1.013 (1.002-1.035); SQUAMOUS EPITHELIAL CELL UR AU 0 /HPF (0-6); UROBILINOGEN, URINE AUTO 0.2 mg/dL (0.0-2.0); WBC, URINE AUTO TNTC /HPF (0-3)
[2021-09-18 14:57] LABS: ALBUMIN 2.1 GM/DL (3.2-5.2); ALT/SGPT 18 U/L (12-78); BILIRUBIN,DIRECT 0.1 MG/DL (0.0-0.2); BILIRUBIN,TOTAL 0.4 MG/DL (0.2-1.0); BLOOD UREA NITROGEN 12 MG/DL (7-18); CALCIUM LEVEL 7.8 MG/DL (8.8-10.2); CARBON DIOXIDE LEVEL 29 MEQ/L (21-32); CHLORIDE LEVEL 110 MEQ/L (98-107); CREATININE FOR GFR 0.76 MG/DL (0.55-1.30); GLOMERULAR FILTRATION RATE > 60.0 (>32); GLUCOSE, FASTING 110 MG/DL (70-100); POTASSIUM SERUM 4.1 MEQ/L (3.5-5.1); SODIUM LEVEL 146 MEQ/L (136-145); TOTAL PROTEIN 5.5 GM/DL (6.4-8.2)
[2021-09-18] MEDS ORDERED: SPIR12.9 INH (16:31)
[2021-09-18] MEDS ORDERED: DULO1CAP4 PO (16:31)
[2021-09-18] MEDS ORDERED: PIPERACILLIN/TAZOBACTAM SOD 3.375 GM in D5W MINI-BAG PLUS 50 ML IV SCH (17:30)
[2021-09-18] MEDS ORDERED: ACET-683 PO (17:37)
[2021-09-18] MEDS ORDERED: DULO30CA9 PO (17:37)
[2021-09-18] MEDS ORDERED: DOXY100T PO (17:37)
[2021-09-18] MEDS ORDERED: SENN1TAB41 PO (17:37)
[2021-09-18] MEDS ORDERED: OXYC-517 PO (17:37)
[2021-09-18] MEDS ORDERED: DOCU100C16 PO (17:37)
[2021-09-18] MEDS ORDERED: VENTAER INH (17:37)
[2021-09-18] MEDS ORDERED: GABA-1171 PO (17:37)
[2021-09-18] MEDS ORDERED: DULC10SU2 PR (17:37)
[2021-09-18] MEDS ORDERED: LEVO500T4 PO (17:37)
[2021-09-18] MEDS ORDERED: BACITAB PO (17:37)
[2021-09-18] MEDS ORDERED: IPRA0.00 NEB (17:37)
[2021-09-18] MEDS ORDERED: AMOX875T2 PO (17:37)
[2021-09-18] MEDS ORDERED: MILKSUS3 PO (17:37)
[2021-09-18] MEDS ORDERED: FLOM0.4C39 PO (17:37)
[2021-09-18] MEDS ORDERED: HOME MED LIST COMPLETE! XX SCH (17:40)
[2021-09-18] MEDS ORDERED: BISACODYL 10 MG SUPP PR PRN (18:05)
[2021-09-18] MEDS ORDERED: MOM 30ML SUSPENSION UDC PO PRN (18:05)
[2021-09-18] MEDS ORDERED: NS 1,000 ML IV SCH (18:05)
[2021-09-18] MEDS ORDERED: ALBUTEROL 90 MCG/ACT 8GM HFA INHALER INH PRN (18:05)
[2021-09-18] MEDS: ACETAMINOPHEN 500 MG TAB PO PRN (18:40)
[2021-09-18] MEDS: oxyCODONE 5MG TAB PO PRN (18:40)
[2021-09-18 19:59] LABS: CK-MB VALUE MASS < 1.0 NG/ML (<3.6); CPK CREATINE PHOSPHOKINASE 56 U/L (26-192); MB/CK RELATIVE INDEX 1.79 (< OR =4)
[2021-09-18] MEDS: ADVAIR HFA 230/21MCG INHALER INH SCH (20:00)
[2021-09-18] MEDS ORDERED: POTASSIUM CHLORIDE 10MEQ SR TABLET PO SCH (21:00)
[2021-09-18] MEDS: PIPERACILLIN/TAZOBACTAM SOD 2.25 GM in D5W MINI-BAG PLUS 50 ML IV SCH (21:30)
[2021-09-18] MEDS: OCUVITE 1 TAB PO SCH (22:23)
[2021-09-18] MEDS: VITAMIN D 1,000 INTERNATIONAL UNITS TABLET PO SCH (22:24)
[2021-09-18] MEDS: ATORVASTATIN 20 MG TAB PO SCH (22:24)
[2021-09-18] MEDS: LISINOPRIL *2.5 MG* TAB PO SCH (22:24)
[2021-09-18] MEDS: SENOKOT S TAB PO SCH (22:25)
[2021-09-18] MEDS: LACTOBACILLUS ACIDOPHILUS CAP (BACID) PO SCH (22:25)
[2021-09-18] MEDS: HEPARIN SOD (PORCINE) 5000UNITS/ML 1ML VIAL/SYRINGE SQ SCH (22:26)
[2021-09-18] MEDS: CARVedilol 3.125 MG TAB PO SCH (22:26)
[2021-09-19 01:10] LABS: CK-MB VALUE MASS 1.1 NG/ML (<3.6); MB/CK RELATIVE INDEX 2.68 (< OR =4)
[2021-09-19] MEDS: PIPERACILLIN/TAZOBACTAM SOD 2.25 GM in D5W MINI-BAG PLUS 50 ML IV SCH ×4 (03:55→20:25)
[2021-09-19 07:28] LABS: BASO % 0.5 % (0.0-1.0); EOS # 0.3 10^3/uL (0.0-0.5); EOS % 3.3 % (0.0-3.0); HEMATOCRIT 29.2 % (36.0-47.0); HEMOGLOBIN 8.8 g/dl (12.0-15.5); LYMPH # 0.6 10^3/uL (1.5-5.0); LYMPH % 7.4 % (24.0-44.0); MEAN CORPUSCULAR HEMOGLOBIN 31.7 pg (27.0-33.0); MEAN CORPUSCULAR HGB CONC 30.1 g/dl (32.0-36.5); MONO # 0.8 10^3/uL (0.0-0.8); MONO % 10.1 % (2.0-8.0); NEUTROPHILS # 6.2 10^3/uL (1.5-8.5); NEUTROPHILS % 77.2 % (36.0-66.0); PLATELET COUNT, AUTOMATED 354 10^3/uL (150-450); RED BLOOD COUNT 2.78 10^6/uL (4.00-5.40)
[2021-09-19 07:50] LABS: BLOOD UREA NITROGEN 9 MG/DL (7-18); CALCIUM LEVEL 7.6 MG/DL (8.8-10.2); CARBON DIOXIDE LEVEL 28 MEQ/L (21-32); CHLORIDE LEVEL 110 MEQ/L (98-107); CREATININE FOR GFR 0.54 MG/DL (0.55-1.30); GLOMERULAR FILTRATION RATE > 60.0 (>32); GLUCOSE, FASTING 101 MG/DL (70-100); MAGNESIUM LEVEL 1.7 MG/DL (1.8-2.4); POTASSIUM SERUM 3.6 MEQ/L (3.5-5.1); SODIUM LEVEL 145 MEQ/L (136-145)
[2021-09-19 07:54] LABS: CK-MB VALUE MASS 1.4 NG/ML (<3.6); MB/CK RELATIVE INDEX 2.92 (< OR =4)
[2021-09-19] MEDS ORDERED: MAG SULF 1GM/100ML (MAG RUN) 1 GM in IV 1 EA IV ONE (08:15)
[2021-09-19] MEDS ORDERED: FUROSEMIDE 20 MG TAB PO SCH (09:00)
[2021-09-19] MEDS: ASPIRIN 81MG ENTERIC TABLET PO SCH (09:27)
[2021-09-19] MEDS: LACTOBACILLUS ACIDOPHILUS CAP (BACID) PO SCH ×3 (09:27→20:25)
[2021-09-19] MEDS: DOCUSATE SODIUM 100MG CAPSULE PO SCH (09:27)
[2021-09-19] MEDS: PANTOPRAZOLE 40MG TAB (PROTONIX) PO SCH (09:27)
[2021-09-19] MEDS: DULoxetine 30MG CAPSULE (CYMBALTA) PO SCH (09:27)
[2021-09-19] MEDS: TAMSULOSIN 0.4 MG CAP PO SCH (09:27)
[2021-09-19] MEDS: FERROUS SULFATE 325MG TAB PO SCH (09:27)
[2021-09-19] MEDS: CARVedilol 3.125 MG TAB PO SCH ×2 (09:28→21:00)
[2021-09-19] MEDS: HEPARIN SOD (PORCINE) 5000UNITS/ML 1ML VIAL/SYRINGE SQ SCH ×2 (09:29→20:25)
[2021-09-19] MEDS: CLOPIDOGREL 75 MG TAB PO SCH (09:34)
[2021-09-19] MEDS: oxyCODONE 5MG TAB PO PRN ×2 (10:36→17:24)
[2021-09-19] MEDS: ADVAIR HFA 230/21MCG INHALER INH SCH ×2 (11:38→19:34)
[2021-09-19] MEDS: TIOTROPIUM INHALER/CAPSULE (SPIRIVA) INH SCH (11:39)
[2021-09-19] MEDS: SENOKOT S TAB PO SCH (20:25)
[2021-09-19] MEDS: OCUVITE 1 TAB PO SCH (20:26)
[2021-09-19] MEDS: VITAMIN D 1,000 INTERNATIONAL UNITS TABLET PO SCH (20:26)
[2021-09-19] MEDS: ATORVASTATIN 20 MG TAB PO SCH (20:26)
[2021-09-19] MEDS: ACETAMINOPHEN 500 MG TAB PO PRN (20:37)
[2021-09-19] MEDS: LISINOPRIL *2.5 MG* TAB PO SCH (21:00)
[2021-09-19 22:00] VITALS: BP 116/48
[2021-09-19] MEDS ORDERED: MORPHINE 2 MG/ML 1ML VIAL (J2270) IV ONE (22:00)
[2021-09-19] MEDS ORDERED: GABAPENTIN 100 MG CAP PO ONE (23:00)
[2021-09-20] MEDS ORDERED: HYDROMORPHONE HCL 0.5 MG/ 0.5 ML SYRINGE (J1170 PER 1) IV ONE (01:00)
[2021-09-20] MEDS: PIPERACILLIN/TAZOBACTAM SOD 2.25 GM in D5W MINI-BAG PLUS 50 ML IV SCH ×4 (01:18→21:03)
[2021-09-20 06:00] VITALS: BP 119/49
[2021-09-20] MEDS: ADVAIR HFA 230/21MCG INHALER INH SCH ×2 (06:18→21:04)
[2021-09-20] MEDS: TIOTROPIUM INHALER/CAPSULE (SPIRIVA) INH SCH (06:19)
[2021-09-20 06:37] LABS: BASO % 0.5 % (0.0-1.0); EOS # 0.2 10^3/uL (0.0-0.5); EOS % 2.4 % (0.0-3.0); HEMATOCRIT 28.3 % (36.0-47.0); HEMOGLOBIN 8.6 g/dl (12.0-15.5); LYMPH # 1.1 10^3/uL (1.5-5.0); LYMPH % 14.6 % (24.0-44.0); MEAN CORPUSCULAR HEMOGLOBIN 31.4 pg (27.0-33.0); MEAN CORPUSCULAR HGB CONC 30.4 g/dl (32.0-36.5); MEAN CORPUSCULAR VOLUME 103.3 fl (80.0-96.0); MONO # 0.8 10^3/uL (0.0-0.8); MONO % 10.2 % (2.0-8.0); NEUTROPHILS # 5.3 10^3/uL (1.5-8.5); NEUTROPHILS % 70.8 % (36.0-66.0); PLATELET COUNT, AUTOMATED 344 10^3/uL (150-450); RED BLOOD COUNT 2.74 10^6/uL (4.00-5.40); WHITE BLOOD COUNT 7.5 10^3/uL (4.0-10.0)
[2021-09-20 07:05] LABS: BLOOD UREA NITROGEN 9 MG/DL (7-18); C REACTIVE PROTEIN QUANTITATIV 0.72 MG/DL (0.00-0.30); CALCIUM LEVEL 7.8 MG/DL (8.8-10.2); CARBON DIOXIDE LEVEL 28 MEQ/L (21-32); CHLORIDE LEVEL 106 MEQ/L (98-107); CREATININE FOR GFR 0.52 MG/DL (0.55-1.30); GLOMERULAR FILTRATION RATE > 60.0 (>32); GLUCOSE, FASTING 103 MG/DL (70-100); MAGNESIUM LEVEL 2.1 MG/DL (1.8-2.4); POTASSIUM SERUM 2.7 MEQ/L (3.5-5.1); SODIUM LEVEL 142 MEQ/L (136-145)
[2021-09-20] MEDS ORDERED: POTASSIUM CHLORIDE 10MEQ SR TABLET PO ONE ×2 (07:35→10:30)
[2021-09-20] MEDS: CLOPIDOGREL 75 MG TAB PO SCH (08:26)
[2021-09-20] MEDS: ASPIRIN 81MG ENTERIC TABLET PO SCH (08:26)
[2021-09-20] MEDS: FERROUS SULFATE 325MG TAB PO SCH (08:26)
[2021-09-20] MEDS: CARVedilol 3.125 MG TAB PO SCH ×2 (08:28→21:03)
[2021-09-20] MEDS: DOCUSATE SODIUM 100MG CAPSULE PO SCH (08:28)
[2021-09-20] MEDS: DULoxetine 30MG CAPSULE (CYMBALTA) PO SCH (08:28)
[2021-09-20] MEDS: HEPARIN SOD (PORCINE) 5000UNITS/ML 1ML VIAL/SYRINGE SQ SCH ×2 (08:29→21:04)
[2021-09-20] MEDS: PANTOPRAZOLE 40MG TAB (PROTONIX) PO SCH (10:10)
[2021-09-20] MEDS: KCL 10MEQ/100ML SWI (KRUN) 10 MEQ in IV 1 EA IV SCH ×3 (10:10→10:35)
[2021-09-20] MEDS: TAMSULOSIN 0.4 MG CAP PO SCH (10:10)
[2021-09-20] MEDS: LACTOBACILLUS ACIDOPHILUS CAP (BACID) PO SCH ×3 (10:10→21:01)
[2021-09-20] MEDS: oxyCODONE 5MG TAB PO PRN ×2 (12:22→21:18)
[2021-09-20 14:00] VITALS: BP 124/61
[2021-09-20] MEDS: FLUCONAZOLE 100 MG TAB PO SCH (17:44)
[2021-09-20] MEDS: LISINOPRIL *2.5 MG* TAB PO SCH (21:01)
[2021-09-20] MEDS: OCUVITE 1 TAB PO SCH (21:02)
[2021-09-20] MEDS: VITAMIN D 1,000 INTERNATIONAL UNITS TABLET PO SCH (21:02)
[2021-09-20] MEDS: ATORVASTATIN 20 MG TAB PO SCH (21:02)
[2021-09-20] MEDS: SENOKOT S TAB PO SCH (21:02)
[2021-09-20 22:00] VITALS: BP 138/66
[2021-09-21] MEDS: PIPERACILLIN/TAZOBACTAM SOD 2.25 GM in D5W MINI-BAG PLUS 50 ML IV SCH ×3 (01:56→14:58)
[2021-09-21 06:00] VITALS: BP 129/53
[2021-09-21 06:33] LABS: BLOOD UREA NITROGEN 7 MG/DL (7-18); CALCIUM LEVEL 8.3 MG/DL (8.8-10.2); CARBON DIOXIDE LEVEL 23 MEQ/L (21-32); CHLORIDE LEVEL 114 MEQ/L (98-107); CREATININE FOR GFR 0.52 MG/DL (0.55-1.30); GLOMERULAR FILTRATION RATE > 60.0 (>32); GLUCOSE, FASTING 106 MG/DL (70-100); MAGNESIUM LEVEL 2.1 MG/DL (1.8-2.4); POTASSIUM SERUM 4.6 MEQ/L (3.5-5.1); SODIUM LEVEL 143 MEQ/L (136-145)
[2021-09-21] MEDS: TIOTROPIUM INHALER/CAPSULE (SPIRIVA) INH SCH (07:37)
[2021-09-21] MEDS: ADVAIR HFA 230/21MCG INHALER INH SCH ×2 (07:37→23:04)
[2021-09-21] MEDS: CLOPIDOGREL 75 MG TAB PO SCH (08:18)
[2021-09-21] MEDS: LACTOBACILLUS ACIDOPHILUS CAP (BACID) PO SCH ×3 (08:18→22:48)
[2021-09-21] MEDS: DOCUSATE SODIUM 100MG CAPSULE PO SCH (08:18)
[2021-09-21] MEDS: FERROUS SULFATE 325MG TAB PO SCH (08:19)
[2021-09-21] MEDS: DULoxetine 30MG CAPSULE (CYMBALTA) PO SCH (08:19)
[2021-09-21] MEDS: PANTOPRAZOLE 40MG TAB (PROTONIX) PO SCH (08:19)
[2021-09-21] MEDS: ASPIRIN 81MG ENTERIC TABLET PO SCH (08:19)
[2021-09-21] MEDS: FLUCONAZOLE 100 MG TAB PO SCH (08:19)
[2021-09-21] MEDS: oxyCODONE 5MG TAB PO PRN ×3 (08:20→23:02)
[2021-09-21] MEDS: HEPARIN SOD (PORCINE) 5000UNITS/ML 1ML VIAL/SYRINGE SQ SCH ×2 (08:21→22:48)
[2021-09-21] MEDS: TAMSULOSIN 0.4 MG CAP PO SCH (08:26)
[2021-09-21] MEDS: CARVedilol 3.125 MG TAB PO SCH ×2 (08:26→22:52)
[2021-09-21] MEDS ORDERED: ISOVUE-370 76% 100ML VIAL As Ordered ONE (10:44)
[2021-09-21 12:14] LABS: BASO # 0.1 10^3/uL (0.0-0.2); BASO % 0.7 % (0.0-1.0); EOS # 0.1 10^3/uL (0.0-0.5); EOS % 1.4 % (0.0-3.0); HEMATOCRIT 34.3 % (36.0-47.0); HEMOGLOBIN 10.3 g/dl (12.0-15.5); LYMPH # 1.1 10^3/uL (1.5-5.0); LYMPH % 16.2 % (24.0-44.0); MEAN CORPUSCULAR HEMOGLOBIN 31.7 pg (27.0-33.0); MEAN CORPUSCULAR VOLUME 105.5 fl (80.0-96.0); MONO # 0.7 10^3/uL (0.0-0.8); MONO % 9.9 % (2.0-8.0); NEUTROPHILS # 4.9 10^3/uL (1.5-8.5); NEUTROPHILS % 70.2 % (36.0-66.0); PLATELET COUNT, AUTOMATED 300 10^3/uL (150-450); RED BLOOD COUNT 3.25 10^6/uL (4.00-5.40)
[2021-09-21 14:00] VITALS: BP 102/52
[2021-09-21 22:00] VITALS: BP 133/48
[2021-09-21] MEDS: SENOKOT S TAB PO SCH (22:48)
[2021-09-21] MEDS: OCUVITE 1 TAB PO SCH (22:48)
[2021-09-21] MEDS: VITAMIN D 1,000 INTERNATIONAL UNITS TABLET PO SCH (22:49)
[2021-09-21] MEDS: AUGMENTIN 875 MG TAB PO SCH (22:49)
[2021-09-21] MEDS: ATORVASTATIN 20 MG TAB PO SCH (22:49)
[2021-09-21] MEDS: LISINOPRIL *2.5 MG* TAB PO SCH (22:52)
[2021-09-22 05:56] LABS: BASO % 0.6 % (0.0-1.0); EOS # 0.2 10^3/uL (0.0-0.5); EOS % 2.4 % (0.0-3.0); HEMATOCRIT 30.2 % (36.0-47.0); HEMOGLOBIN 9.3 g/dl (12.0-15.5); LYMPH # 1.3 10^3/uL (1.5-5.0); LYMPH % 18.2 % (24.0-44.0); MEAN CORPUSCULAR HEMOGLOBIN 31.5 pg (27.0-33.0); MEAN CORPUSCULAR HGB CONC 30.8 g/dl (32.0-36.5); MEAN CORPUSCULAR VOLUME 102.4 fl (80.0-96.0); MONO # 0.7 10^3/uL (0.0-0.8); MONO % 10.2 % (2.0-8.0); NEUTROPHILS # 4.7 10^3/uL (1.5-8.5); NEUTROPHILS % 66.7 % (36.0-66.0); PLATELET COUNT, AUTOMATED 274 10^3/uL (150-450); RED BLOOD COUNT 2.95 10^6/uL (4.00-5.40)
[2021-09-22 06:00] VITALS: BP 104/62
[2021-09-22 06:23] LABS: BLOOD UREA NITROGEN 6 MG/DL (7-18); CALCIUM LEVEL 8.3 MG/DL (8.8-10.2); CARBON DIOXIDE LEVEL 26 MEQ/L (21-32); CHLORIDE LEVEL 108 MEQ/L (98-107); CREATININE FOR GFR 0.49 MG/DL (0.55-1.30); GLOMERULAR FILTRATION RATE > 60.0 (>32); GLUCOSE, FASTING 102 MG/DL (70-100); POTASSIUM SERUM 3.7 MEQ/L (3.5-5.1); SODIUM LEVEL 141 MEQ/L (136-145)
[2021-09-22] MEDS: ADVAIR HFA 230/21MCG INHALER INH SCH ×2 (07:57→20:17)
[2021-09-22] MEDS: TIOTROPIUM INHALER/CAPSULE (SPIRIVA) INH SCH (07:57)
[2021-09-22 08:43] VITALS: BP 142/60
[2021-09-22] MEDS: oxyCODONE 5MG TAB PO PRN ×2 (08:43→17:50)
[2021-09-22] MEDS ORDERED: FLUC100T3 PO (08:45)
[2021-09-22] MEDS ORDERED: BACITAB PO (08:45)
[2021-09-22] MEDS ORDERED: AMOX875T2 PO (08:45)
[2021-09-22] MEDS: HEPARIN SOD (PORCINE) 5000UNITS/ML 1ML VIAL/SYRINGE SQ SCH ×2 (10:13→21:26)
[2021-09-22] MEDS: FLUCONAZOLE 100 MG TAB PO SCH (10:14)
[2021-09-22] MEDS: CLOPIDOGREL 75 MG TAB PO SCH (10:14)
[2021-09-22] MEDS: FERROUS SULFATE 325MG TAB PO SCH (10:14)
[2021-09-22] MEDS: LACTOBACILLUS ACIDOPHILUS CAP (BACID) PO SCH ×3 (10:14→21:26)
[2021-09-22] MEDS: ASPIRIN 81MG ENTERIC TABLET PO SCH (10:14)
[2021-09-22] MEDS: AUGMENTIN 875 MG TAB PO SCH ×2 (10:14→21:26)
[2021-09-22] MEDS: PANTOPRAZOLE 40MG TAB (PROTONIX) PO SCH (10:14)
[2021-09-22] MEDS: TAMSULOSIN 0.4 MG CAP PO SCH (10:14)
[2021-09-22] MEDS: DULoxetine 30MG CAPSULE (CYMBALTA) PO SCH (10:14)
[2021-09-22] MEDS: CARVedilol 3.125 MG TAB PO SCH ×2 (10:18→21:00)
[2021-09-22 14:00] VITALS: BP 128/40
[2021-09-22 21:00] VITALS: BP 118/55
[2021-09-22] MEDS: LISINOPRIL *2.5 MG* TAB PO SCH (21:00)
[2021-09-22] MEDS: SENOKOT S TAB PO SCH (21:26)
[2021-09-22] MEDS: ATORVASTATIN 20 MG TAB PO SCH (21:26)
[2021-09-22] MEDS: OCUVITE 1 TAB PO SCH (21:26)
[2021-09-22] MEDS: VITAMIN D 1,000 INTERNATIONAL UNITS TABLET PO SCH (21:26)
[2021-09-22] MEDS: ACETAMINOPHEN 500 MG TAB PO PRN (21:26)
[2021-09-23 06:00] VITALS: BP 113/55
[2021-09-23] MEDS: TIOTROPIUM INHALER/CAPSULE (SPIRIVA) INH SCH (08:24)
[2021-09-23] MEDS: ADVAIR HFA 230/21MCG INHALER INH SCH (08:25)
[2021-09-23] MEDS: PANTOPRAZOLE 40MG TAB (PROTONIX) PO SCH (09:09)
[2021-09-23] MEDS: HEPARIN SOD (PORCINE) 5000UNITS/ML 1ML VIAL/SYRINGE SQ SCH (09:09)
[2021-09-23] MEDS: CLOPIDOGREL 75 MG TAB PO SCH (09:09)
[2021-09-23] MEDS: ASPIRIN 81MG ENTERIC TABLET PO SCH (09:09)
[2021-09-23] MEDS: AUGMENTIN 875 MG TAB PO SCH (09:09)
[2021-09-23] MEDS: FERROUS SULFATE 325MG TAB PO SCH (09:09)
[2021-09-23] MEDS: LACTOBACILLUS ACIDOPHILUS CAP (BACID) PO SCH (09:09)
[2021-09-23 09:14] VITALS: BP 150/50
[2021-09-23] MEDS: TAMSULOSIN 0.4 MG CAP PO SCH (09:14)
[2021-09-23] MEDS: DULoxetine 30MG CAPSULE (CYMBALTA) PO SCH (09:14)
[2021-09-23] MEDS: FLUCONAZOLE 100 MG TAB PO SCH (09:14)
[2021-09-23] MEDS: CARVedilol 3.125 MG TAB PO SCH (09:14)
[2021-09-23] MEDS: oxyCODONE 5MG TAB PO PRN (09:44)
[2021-09-23 10:31] LABS: BASO # 0.1 10^3/uL (0.0-0.2); BASO % 0.9 % (0.0-1.0); EOS # 0.1 10^3/uL (0.0-0.5); EOS % 1.6 % (0.0-3.0); HEMATOCRIT 31.7 % (36.0-47.0); HEMOGLOBIN 9.4 g/dl (12.0-15.5); LYMPH # 0.8 10^3/uL (1.5-5.0); LYMPH % 11.5 % (24.0-44.0); MEAN CORPUSCULAR HEMOGLOBIN 30.7 pg (27.0-33.0); MEAN CORPUSCULAR HGB CONC 29.7 g/dl (32.0-36.5); MEAN CORPUSCULAR VOLUME 103.6 fl (80.0-96.0); MONO # 0.5 10^3/uL (0.0-0.8); MONO % 7.8 % (2.0-8.0); NEUTROPHILS # 5.3 10^3/uL (1.5-8.5); NEUTROPHILS % 75.9 % (36.0-66.0); PLATELET COUNT, AUTOMATED 234 10^3/uL (150-450); RED BLOOD COUNT 3.06 10^6/uL (4.00-5.40); WHITE BLOOD COUNT 6.9 10^3/uL (4.0-10.0)
[2021-09-23 10:59] LABS: BLOOD UREA NITROGEN 5 MG/DL (7-18); CALCIUM LEVEL 8.3 MG/DL (8.8-10.2); CARBON DIOXIDE LEVEL 25 MEQ/L (21-32); CHLORIDE LEVEL 106 MEQ/L (98-107); CREATININE FOR GFR 0.54 MG/DL (0.55-1.30); GLOMERULAR FILTRATION RATE > 60.0 (>32); GLUCOSE, FASTING 138 MG/DL (70-100); MAGNESIUM LEVEL 1.9 MG/DL (1.8-2.4); POTASSIUM SERUM 3.7 MEQ/L (3.5-5.1); SODIUM LEVEL 139 MEQ/L (136-145)
== END 2021-09-23 14:04 | DRG 564 ==
LOC: M ED 13:10 → M ED INP 18:03 → ENRESERV 09-19 15:27 → M MSPAV 09-19 16:17
PROVIDERS: ADMIT Internal Medicine; ATTEND General Practice
DX: T87.44 Infection of amputation stump, left lower extremity (principal); G92.8 Other toxic encephalopathy; I50.32 Chronic diastolic (congestive) heart failure; N39.0 Urinary tract infection, site not specified; T87.81 Dehiscence of amputation stump; B96.1 Klebsiella pneumoniae [K. pneumoniae] as the cause of diseases classified elsewhere; E87.6 Hypokalemia; I25.10 Atherosclerotic heart disease of native coronary artery without angina pectoris; I25.2 Old myocardial infarction; I73.9 Peripheral vascular disease, unspecified; R33.9 Retention of urine, unspecified; B37.3 Candidiasis of vulva and vagina; D53.9 Nutritional anemia, unspecified; J44.9 Chronic obstructive pulmonary disease, unspecified; Z99.81 Dependence on supplemental oxygen; Z95.820 Peripheral vascular angioplasty status with implants and grafts; K21.9 Gastro-esophageal reflux disease without esophagitis; K44.9 Diaphragmatic hernia without obstruction or gangrene; Z66 Do not resuscitate; Y83.5 Amputation of limb(s) as the cause of abnormal reaction of the patient, or of later complication, without mention of misadventure at the time of the procedure; H54.8 Legal blindness, as defined in USA; R94.31 Abnormal electrocardiogram [ECG] [EKG]; I11.0 Hypertensive heart disease with heart failure; E86.0 Dehydration; E78.5 Hyperlipidemia, unspecified; H35.30 Unspecified macular degeneration; K59.00 Constipation, unspecified; Z95.5 Presence of coronary angioplasty implant and graft; Z86.73 Personal history of transient ischemic attack (TIA), and cerebral infarction without residual deficits; Z98.41 Cataract extraction status, right eye; Z98.42 Cataract extraction status, left eye; Z87.891 Personal history of nicotine dependence; Z79.82 Long term (current) use of aspirin; Z79.02 Long term (current) use of antithrombotics/antiplatelets; Z79.899 Other long term (current) drug therapy; Z88.0 Allergy status to penicillin; Z88.1 Allergy status to other antibiotic agents; Z87.19 Personal history of other diseases of the digestive system

== ENCOUNTER → 2021-09-27 | Outpatient (REF) | payer MEDICARE, BC ==
[~2021-09-27] MED LIST changes: +ACET-683 PO; +AMOX875T2 PO; +BACITAB PO; -D31000TA2 PO; +DOXY100T PO; +DULC10SU2 PR; +DULO1CAP4 PO; +DULO30CA9 PO; +FLOM0.4C39 PO; +FLUC100T3 PO; +IPRA0.00 NEB; +LEVO500T4 PO; +MILKSUS3 PO; +OXYC-517 PO; +SENN1TAB41 PO; +VITA100093 PO
[2021-09-27 11:03] LABS: MEAN CORPUSCULAR HEMOGLOBIN 31.9 pg (27.0-33.0); MEAN CORPUSCULAR HGB CONC 30.6 g/dl (32.0-36.5); MEAN CORPUSCULAR VOLUME 104.3 fl (80.0-96.0); PLATELET COUNT, AUTOMATED 280 10^3/uL (150-450); RED BLOOD COUNT 3.45 10^6/uL (4.00-5.40); WHITE BLOOD COUNT 9.6 10^3/uL (4.0-10.0)
[2021-09-27 11:27] LABS: ERYTHROCYTE SEDIMENTATION RATE 35 mm/hr (0-30)
[2021-09-27 11:29] LABS: BLOOD UREA NITROGEN 14 MG/DL (7-18); CALCIUM LEVEL 8.5 MG/DL (8.8-10.2); CARBON DIOXIDE LEVEL 24 MEQ/L (21-32); CHLORIDE LEVEL 106 MEQ/L (98-107); CREATININE FOR GFR 0.58 MG/DL (0.55-1.30); GLOMERULAR FILTRATION RATE > 60.0 (>32); GLUCOSE, FASTING 115 MG/DL (70-100); POTASSIUM SERUM 4.6 MEQ/L (3.5-5.1); SODIUM LEVEL 140 MEQ/L (136-145)
== END ==
PROVIDERS: ATTEND Physician Assistant
DX: T87.44 Infection of amputation stump, left lower extremity (principal)

== ENCOUNTER → 2021-09-30 | Outpatient (REF) | payer MEDICARE, BC ==
[2021-09-30 15:19] LABS: BASO # 0.1 10^3/uL (0.0-0.2); EOS # 0.2 10^3/uL (0.0-0.5); EOS % 2.4 % (0.0-3.0); HEMOGLOBIN 10.7 g/dl (12.0-15.5); LYMPH % 25.9 % (24.0-44.0); MEAN CORPUSCULAR HEMOGLOBIN 32.1 pg (27.0-33.0); MEAN CORPUSCULAR HGB CONC 30.6 g/dl (32.0-36.5); MEAN CORPUSCULAR VOLUME 105.1 fl (80.0-96.0); MONO # 0.8 10^3/uL (0.0-0.8); MONO % 9.8 % (2.0-8.0); NEUTROPHILS # 4.7 10^3/uL (1.5-8.5); NEUTROPHILS % 60.4 % (36.0-66.0); PLATELET COUNT, AUTOMATED 241 10^3/uL (150-450); RED BLOOD COUNT 3.33 10^6/uL (4.00-5.40); WHITE BLOOD COUNT 7.8 10^3/uL (4.0-10.0)
[2021-09-30 15:32] LABS: BLOOD UREA NITROGEN 27 MG/DL (7-18); CALCIUM LEVEL 8.5 MG/DL (8.8-10.2); CARBON DIOXIDE LEVEL 24 MEQ/L (21-32); CHLORIDE LEVEL 105 MEQ/L (98-107); CREATININE FOR GFR 0.51 MG/DL (0.55-1.30); GLOMERULAR FILTRATION RATE > 60.0 (>32); GLUCOSE, FASTING 175 MG/DL (70-100); POTASSIUM SERUM 4.2 MEQ/L (3.5-5.1); SODIUM LEVEL 139 MEQ/L (136-145)
[2021-09-30 15:50] LABS: ERYTHROCYTE SEDIMENTATION RATE 32 mm/hr (0-30)
== END ==
PROVIDERS: ATTEND Internal Medicine
DX: T87.44 Infection of amputation stump, left lower extremity (principal)

== ENCOUNTER → 2021-10-04 | Outpatient (REF) | payer MEDICARE, BC ==
[2021-10-04 10:37] LABS: HEMATOCRIT 35.3 % (36.0-47.0); HEMOGLOBIN 10.7 g/dl (12.0-15.5); MEAN CORPUSCULAR HEMOGLOBIN 31.6 pg (27.0-33.0); MEAN CORPUSCULAR HGB CONC 30.3 g/dl (32.0-36.5); MEAN CORPUSCULAR VOLUME 104.1 fl (80.0-96.0); PLATELET COUNT, AUTOMATED 229 10^3/uL (150-450); RED BLOOD COUNT 3.39 10^6/uL (4.00-5.40); WHITE BLOOD COUNT 7.4 10^3/uL (4.0-10.0)
[2021-10-04 11:05] LABS: BLOOD UREA NITROGEN 23 MG/DL (7-18); CALCIUM LEVEL 8.7 MG/DL (8.8-10.2); CARBON DIOXIDE LEVEL 26 MEQ/L (21-32); CHLORIDE LEVEL 104 MEQ/L (98-107); CREATININE FOR GFR 0.44 MG/DL (0.55-1.30); GLOMERULAR FILTRATION RATE > 60.0 (>32); GLUCOSE, FASTING 106 MG/DL (70-100); POTASSIUM SERUM 3.9 MEQ/L (3.5-5.1); SODIUM LEVEL 139 MEQ/L (136-145)
== END ==
PROVIDERS: ATTEND Physician Assistant
DX: T87.44 Infection of amputation stump, left lower extremity (principal)

== ENCOUNTER → 2021-10-11 | Outpatient (REF) | payer MEDICARE, BC ==
[2021-10-11 10:26] LABS: HEMOGLOBIN 11.7 g/dl (12.0-15.5); MEAN CORPUSCULAR HEMOGLOBIN 31.7 pg (27.0-33.0); MEAN CORPUSCULAR HGB CONC 30.8 g/dl (32.0-36.5); PLATELET COUNT, AUTOMATED 266 10^3/uL (150-450); RED BLOOD COUNT 3.69 10^6/uL (4.00-5.40); WHITE BLOOD COUNT 8.6 10^3/uL (4.0-10.0)
[2021-10-11 10:58] LABS: ERYTHROCYTE SEDIMENTATION RATE 35 mm/hr (0-30)
== END ==
PROVIDERS: ATTEND Physician Assistant
DX: T87.44 Infection of amputation stump, left lower extremity (principal)

== ENCOUNTER → 2021-10-18 | Outpatient (REF) | payer MEDICARE, BC ==
[2021-10-18 11:43] LABS: HEMATOCRIT 35.6 % (36.0-47.0); HEMOGLOBIN 10.9 g/dl (12.0-15.5); MEAN CORPUSCULAR HEMOGLOBIN 31.4 pg (27.0-33.0); MEAN CORPUSCULAR HGB CONC 30.6 g/dl (32.0-36.5); MEAN CORPUSCULAR VOLUME 102.6 fl (80.0-96.0); PLATELET COUNT, AUTOMATED 235 10^3/uL (150-450); RED BLOOD COUNT 3.47 10^6/uL (4.00-5.40); WHITE BLOOD COUNT 8.6 10^3/uL (4.0-10.0)
[2021-10-18 12:13] LABS: BLOOD UREA NITROGEN 8 MG/DL (7-18); CALCIUM LEVEL 8.2 MG/DL (8.8-10.2); CARBON DIOXIDE LEVEL 31 MEQ/L (21-32); CHLORIDE LEVEL 104 MEQ/L (98-107); GLOMERULAR FILTRATION RATE > 60.0 (>32); GLUCOSE, FASTING 111 MG/DL (70-100); POTASSIUM SERUM 3.8 MEQ/L (3.5-5.1); SODIUM LEVEL 141 MEQ/L (136-145)
== END ==
PROVIDERS: ATTEND Physician Assistant
DX: T87.44 Infection of amputation stump, left lower extremity (principal)

== ENCOUNTER → 2021-10-19 | Outpatient (REF) | payer MEDICARE, BC ==
[2021-10-19 11:52] LABS: BASO # 0.1 10^3/uL (0.0-0.2); BASO % 0.8 % (0.0-1.0); EOS # 0.3 10^3/uL (0.0-0.5); EOS % 3.5 % (0.0-3.0); HEMATOCRIT 35.3 % (36.0-47.0); HEMOGLOBIN 10.9 g/dl (12.0-15.5); LYMPH # 1.5 10^3/uL (1.5-5.0); LYMPH % 19.7 % (24.0-44.0); MEAN CORPUSCULAR HEMOGLOBIN 31.1 pg (27.0-33.0); MEAN CORPUSCULAR HGB CONC 30.9 g/dl (32.0-36.5); MEAN CORPUSCULAR VOLUME 100.9 fl (80.0-96.0); MONO # 0.6 10^3/uL (0.0-0.8); NEUTROPHILS # 5.1 10^3/uL (1.5-8.5); NEUTROPHILS % 67.6 % (36.0-66.0); PLATELET COUNT, AUTOMATED 233 10^3/uL (150-450); WHITE BLOOD COUNT 7.5 10^3/uL (4.0-10.0)
[2021-10-19 12:13] LABS: ERYTHROCYTE SEDIMENTATION RATE 17 mm/hr (0-30)
[2021-10-19 12:35] LABS: ALBUMIN 2.6 GM/DL (3.2-5.2); ALT/SGPT 16 U/L (12-78); BILIRUBIN,TOTAL 0.2 MG/DL (0.2-1.0); BLOOD UREA NITROGEN 7 MG/DL (7-18); CALCIUM LEVEL 8.4 MG/DL (8.8-10.2); CARBON DIOXIDE LEVEL 32 MEQ/L (21-32); CHLORIDE LEVEL 107 MEQ/L (98-107); CREATININE FOR GFR 0.62 MG/DL (0.55-1.30); GLOMERULAR FILTRATION RATE > 60.0 (>32); GLUCOSE, FASTING 198 MG/DL (70-100); SODIUM LEVEL 142 MEQ/L (136-145); TOTAL PROTEIN 5.2 GM/DL (6.4-8.2)
== END ==
PROVIDERS: ATTEND Physician Assistant
DX: T87.44 Infection of amputation stump, left lower extremity (principal)

== ENCOUNTER → 2021-11-08 | Outpatient (REF) ==
[2021-11-08 13:00] LABS: BASO # 0.1 10^3/uL (0.0-0.2); BASO % 0.8 % (0.0-1.0); EOS # 0.3 10^3/uL (0.0-0.5); EOS % 4.1 % (0.0-3.0); HEMATOCRIT 31.6 % (36.0-47.0); LYMPH # 1.5 10^3/uL (1.5-5.0); LYMPH % 22.4 % (24.0-44.0); MEAN CORPUSCULAR HEMOGLOBIN 31.1 pg (27.0-33.0); MEAN CORPUSCULAR HGB CONC 31.6 g/dl (32.0-36.5); MEAN CORPUSCULAR VOLUME 98.1 fl (80.0-96.0); MONO # 0.7 10^3/uL (0.0-0.8); MONO % 10.1 % (2.0-8.0); NEUTROPHILS # 4.2 10^3/uL (1.5-8.5); NEUTROPHILS % 62.3 % (36.0-66.0); PLATELET COUNT, AUTOMATED 228 10^3/uL (150-450); RED BLOOD COUNT 3.22 10^6/uL (4.00-5.40); WHITE BLOOD COUNT 6.7 10^3/uL (4.0-10.0)
[2021-11-08 13:23] LABS: BLOOD UREA NITROGEN 7 MG/DL (7-18); CALCIUM LEVEL 8.5 MG/DL (8.8-10.2); CARBON DIOXIDE LEVEL 29 MEQ/L (21-32); CHLORIDE LEVEL 106 MEQ/L (98-107); GLOMERULAR FILTRATION RATE > 60.0 (>32); GLUCOSE, FASTING 149 MG/DL (70-100); POTASSIUM SERUM 3.8 MEQ/L (3.5-5.1); SODIUM LEVEL 141 MEQ/L (136-145)
[2021-11-08 13:47] LABS: ERYTHROCYTE SEDIMENTATION RATE 36 mm/hr (0-30)
== END ==
PROVIDERS: ATTEND Physician Assistant
DX: R60.9 Edema, unspecified (principal)

== ENCOUNTER → 2021-11-08 | Outpatient (CLI) | payer BC, MEDICARE | LOC: M RAD 17:06 | PROVIDERS: ATTEND Physician Assistant | DX: R22.42 Localized swelling, mass and lump, left lower limb (principal) ==

== ENCOUNTER 2021-12-17 13:11 | Emergency (ER) | payer MEDICARE ==
[~2021-12-17] VITALS: Ht 162.6 cm; Wt 43.6 kg
[2021-12-17 17:34] VITALS: BP 127/63
== END 2021-12-17 17:47 | disposition home or self-care (01) ==
LOC: M ED 13:11
DX: S82.124A Nondisplaced fracture of lateral condyle of right tibia, initial encounter for closed fracture (principal); W05.0XXA Fall from non-moving wheelchair, initial encounter; Y92.9 Unspecified place or not applicable; Y93.9 Activity, unspecified; Y99.9 Unspecified external cause status; Z88.0 Allergy status to penicillin; Z88.1 Allergy status to other antibiotic agents; Z79.899 Other long term (current) drug therapy; Z79.82 Long term (current) use of aspirin

== ENCOUNTER → 2021-12-20 | Outpatient (REF) | payer MEDICARE ==
[~2021-12-20] MED LIST changes: +AMOX875T PO; +APAP325T4 PO; +BACTDSTA PO; +BD P0.9I2 IV; +CYAN100050 PO; +ENEMENE PR; +INVA1SOL IV; +LOPE1CAP5 PO; +MUCI600T31 PO; +PANT20TA6 PO; +ZOSY1SOL5 IV
[2021-12-20 18:22] LABS: BLOOD UREA NITROGEN 12 MG/DL (7-18); C REACTIVE PROTEIN QUANTITATIV 8.32 MG/DL (0.00-0.30); CALCIUM LEVEL 8.6 MG/DL (8.8-10.2); CARBON DIOXIDE LEVEL 29 MEQ/L (21-32); CHLORIDE LEVEL 109 MEQ/L (98-107); GLOMERULAR FILTRATION RATE > 60.0 (>32); GLUCOSE, FASTING 181 MG/DL (70-100); POTASSIUM SERUM 3.5 MEQ/L (3.5-5.1); SODIUM LEVEL 147 MEQ/L (136-145)
[2021-12-20 18:55] LABS: BASO # 0.1 10^3/uL (0.0-0.2); BASO % 0.9 % (0.0-1.0); EOS # 0.8 10^3/uL (0.0-0.5); EOS % 9.1 % (0.0-3.0); HEMATOCRIT 33.3 % (36.0-47.0); HEMOGLOBIN 10.1 g/dl (12.0-15.5); LYMPH # 1.8 10^3/uL (1.5-5.0); LYMPH % 19.4 % (24.0-44.0); MEAN CORPUSCULAR HEMOGLOBIN 28.7 pg (27.0-33.0); MEAN CORPUSCULAR HGB CONC 30.3 g/dl (32.0-36.5); MEAN CORPUSCULAR VOLUME 94.6 fl (80.0-96.0); MONO # 1.1 10^3/uL (0.0-0.8); MONO % 12.6 % (2.0-8.0); NEUTROPHILS # 5.2 10^3/uL (1.5-8.5); NEUTROPHILS % 57.9 % (36.0-66.0); PLATELET COUNT, AUTOMATED 259 10^3/uL (150-450); RED BLOOD COUNT 3.52 10^6/uL (4.00-5.40)
[2021-12-20 19:33] LABS: ERYTHROCYTE SEDIMENTATION RATE 88 mm/hr (0-30)
== END ==
PROVIDERS: ATTEND Internal Medicine
DX: L02.214 Cutaneous abscess of groin (principal)

== ENCOUNTER → 2021-12-21 | Outpatient (CLI) | payer MEDICARE ==
[~2021-12-21] MED LIST changes: -AMOX875T PO; -BACTDSTA PO; -MUCI600T31 PO; -ZOSY1SOL5 IV
== END ==
LOC: M WHC 12:21
PROVIDERS: ATTEND Physician Assistant
DX: L02.214 Cutaneous abscess of groin (principal)

== ENCOUNTER → 2021-12-21 | Outpatient (REF) | payer MEDICARE ==
[2021-12-21 15:31] LABS: HEMATOCRIT 31.1 % (36.0-47.0); HEMOGLOBIN 9.6 g/dl (12.0-15.5); MEAN CORPUSCULAR HEMOGLOBIN 29.4 pg (27.0-33.0); MEAN CORPUSCULAR HGB CONC 30.9 g/dl (32.0-36.5); MEAN CORPUSCULAR VOLUME 95.1 fl (80.0-96.0); PLATELET COUNT, AUTOMATED 256 10^3/uL (150-450); RED BLOOD COUNT 3.27 10^6/uL (4.00-5.40); WHITE BLOOD COUNT 9.3 10^3/uL (4.0-10.0)
[2021-12-21 15:51] LABS: BLOOD UREA NITROGEN 12 MG/DL (7-18); C REACTIVE PROTEIN QUANTITATIV 7.12 MG/DL (0.00-0.30); CALCIUM LEVEL 8.6 MG/DL (8.8-10.2); CARBON DIOXIDE LEVEL 25 MEQ/L (21-32); CHLORIDE LEVEL 110 MEQ/L (98-107); CREATININE FOR GFR 0.51 MG/DL (0.55-1.30); GLOMERULAR FILTRATION RATE > 60.0 (>32); GLUCOSE, FASTING 186 MG/DL (70-100); POTASSIUM SERUM 3.5 MEQ/L (3.5-5.1); SODIUM LEVEL 145 MEQ/L (136-145)
[2021-12-21 15:59] LABS: ERYTHROCYTE SEDIMENTATION RATE 62 mm/hr (0-30)
== END ==
PROVIDERS: ATTEND Internal Medicine
DX: L02.214 Cutaneous abscess of groin (principal)

== ENCOUNTER → 2021-12-22 | Outpatient (CLI) | payer MEDICARE | LOC: M RAD 14:22 | PROVIDERS: ATTEND Physician Assistant | DX: L02.214 Cutaneous abscess of groin (principal) ==

== ENCOUNTER 2021-12-23 12:53 | Inpatient (IN) | payer MEDICARE ==
[~2021-12-23] VITALS: Ht 160 cm; Wt 42.2 kg
[~2021-12-23 12:53] MED LIST changes: -APAP325T4 PO; -BD P0.9I2 IV; -CYAN100050 PO; -ENEMENE PR; -INVA1SOL IV; -LOPE1CAP5 PO; -PANT20TA6 PO
[2021-12-23 13:59] LABS: VENOUS BASE EXCESS 2.3 (-2.0-2.0); VENOUS HCO3 27.7 MEQ/L (23.0-27.0); VENOUS O2 SATURATION 60.4 % (60.0-80.0); VENOUS PARTIAL PRESSURE CO2 46.6 mmHg (38.0-50.0); VENOUS PARTIAL PRESSURE O2 34.1 mmHg (30.0-50.0); VENOUS PH 7.392 UNITS (7.330-7.430); VENOUS STANDARD HCO3 25.7 MEQ/L; VENOUS TOTAL CO2 29.1 MEQ/L (24.0-28.0)
[2021-12-23 14:02] LABS: BASO # 0.1 10^3/uL (0.0-0.2); BASO % 1.1 % (0.0-1.0); EOS # 0.9 10^3/uL (0.0-0.5); EOS % 10.5 % (0.0-3.0); HEMATOCRIT 34.7 % (36.0-47.0); HEMOGLOBIN 10.8 g/dl (12.0-15.5); LYMPH # 1.8 10^3/uL (1.5-5.0); LYMPH % 19.7 % (24.0-44.0); MEAN CORPUSCULAR HGB CONC 31.1 g/dl (32.0-36.5); MEAN CORPUSCULAR VOLUME 93.3 fl (80.0-96.0); MONO # 1.1 10^3/uL (0.0-0.8); MONO % 11.7 % (2.0-8.0); NEUTROPHILS # 5.1 10^3/uL (1.5-8.5); NEUTROPHILS % 56.7 % (36.0-66.0); PLATELET COUNT, AUTOMATED 365 10^3/uL (150-450); RED BLOOD COUNT 3.72 10^6/uL (4.00-5.40)
[2021-12-23 14:27] LABS: OSMOLALITY SERUM 300 MOSM/KG (280-301)
[2021-12-23 14:29] LABS: ALBUMIN 2.9 GM/DL (3.2-5.2); ALT/SGPT 15 U/L (12-78); BILIRUBIN,DIRECT 0.2 MG/DL (0.0-0.2); BILIRUBIN,TOTAL 0.4 MG/DL (0.2-1.0); BLOOD UREA NITROGEN 11 MG/DL (7-18); C REACTIVE PROTEIN QUANTITATIV 5.15 MG/DL (0.00-0.30); CARBON DIOXIDE LEVEL 26 MEQ/L (21-32); CHLORIDE LEVEL 111 MEQ/L (98-107); CREATININE FOR GFR 0.63 MG/DL (0.55-1.30); GLOMERULAR FILTRATION RATE > 60.0 (>32); GLUCOSE, FASTING 157 MG/DL (70-100); POTASSIUM SERUM 3.2 MEQ/L (3.5-5.1); SODIUM LEVEL 147 MEQ/L (136-145); TOTAL PROTEIN 6.6 GM/DL (6.4-8.2)
[2021-12-23 14:34] LABS: ERYTHROCYTE SEDIMENTATION RATE 67 mm/hr (0-30)
[2021-12-23 15:35] LABS: RSV AMPLIFICATION NEGATIVE (NEGATIVE)
[2021-12-23] MEDS ORDERED: POTASSIUM CHLORIDE 10MEQ SR TABLET PO ONE (15:35)
[2021-12-23] MEDS ORDERED: PANT20TA6 PO (17:54)
[2021-12-23] MEDS ORDERED: BD P0.9I2 IV (17:54)
[2021-12-23] MEDS ORDERED: INVA1SOL IV (17:54)
[2021-12-23] MEDS ORDERED: CYAN100050 PO (18:02)
[2021-12-23] MEDS ORDERED: BACITAB PO (18:02)
[2021-12-23] MEDS ORDERED: ENEMENE PR (18:19)
[2021-12-23] MEDS ORDERED: APAP325T4 PO (18:19)
[2021-12-23] MEDS ORDERED: ONDA-83 PO (18:19)
[2021-12-23] MEDS ORDERED: NITR4TASL SL (18:19)
[2021-12-23] MEDS ORDERED: LOPE1CAP5 PO (18:19)
[2021-12-23] MEDS ORDERED: HOME MED LIST COMPLETE! XX SCH (18:20)
[2021-12-23] MEDS ORDERED: NITROGLYCERIN 0.4 MG SUBL TABLET SL PRN (18:50)
[2021-12-23] MEDS ORDERED: ALBUTEROL 90 MCG/ACT 8GM HFA INHALER INH PRN (18:50)
[2021-12-23] MEDS ORDERED: MOM 30ML SUSPENSION UDC PO PRN (18:50)
[2021-12-23] MEDS ORDERED: BISACODYL 10 MG SUPP PR PRN (18:50)
[2021-12-23] MEDS ORDERED: ERTAPENEM SODIUM 1 GM in NS MINI-BAG PLUS 50 ML IV SCH (19:20)
[2021-12-23] MEDS ORDERED: ISOVUE-370 76% 100ML VIAL As Ordered ONE (19:38)
[2021-12-23] MEDS: ADVAIR HFA 230/21MCG INHALER INH SCH (20:00)
[2021-12-23 20:21] VITALS: BP 114/68
[2021-12-23 20:42] LABS: INR 1.31; PROTHROMBIN TIME 16.7 SECONDS (12.7-14.5)
[2021-12-23 20:43] LABS: PARTIAL THROMBOPLASTIN TIME 37.9 SECONDS (25.9-37.0)
[2021-12-23] MEDS ORDERED: ERTAPENEM SODIUM 500 MG in NS 50 ML IV SCH (22:00)
[2021-12-23] MEDS: D5W/0.45% SODIUM CHLORIDE 1,000 ML IV SCH (22:04)
[2021-12-23 22:05] VITALS: BP 158/68
[2021-12-23] MEDS: DOXYCYCLINE HYCLATE 100 MG in D5W MINI-BAG PLUS 100 ML IV SCH (22:05)
[2021-12-23] MEDS: RAMELTEON 8 MG TAB (ROZEREM) PO SCH (22:05)
[2021-12-23] MEDS: LACTOBACILLUS ACIDOPHILUS CAP (BACID) PO SCH (22:05)
[2021-12-23] MEDS: ATORVASTATIN 20 MG TAB PO SCH (22:05)
[2021-12-23] MEDS: POTASSIUM CHLORIDE 10MEQ SR TABLET PO SCH (22:06)
[2021-12-23] MEDS: CARVedilol 3.125 MG TAB PO SCH (22:06)
[2021-12-23] MEDS: VITAMIN D 1,000 INTERNATIONAL UNITS TABLET PO SCH (22:06)
[2021-12-23] MEDS: LISINOPRIL *2.5 MG* TAB PO SCH (22:45)
[2021-12-24 05:40] VITALS: BP 146/58
[2021-12-24 06:25] LABS: HEMATOCRIT 31.1 % (36.0-47.0); HEMOGLOBIN 9.5 g/dl (12.0-15.5); MEAN CORPUSCULAR HEMOGLOBIN 28.4 pg (27.0-33.0); MEAN CORPUSCULAR HGB CONC 30.5 g/dl (32.0-36.5); MEAN CORPUSCULAR VOLUME 93.1 fl (80.0-96.0); PLATELET COUNT, AUTOMATED 295 10^3/uL (150-450); RED BLOOD COUNT 3.34 10^6/uL (4.00-5.40); WHITE BLOOD COUNT 8.8 10^3/uL (4.0-10.0)
[2021-12-24 06:43] LABS: BLOOD UREA NITROGEN 9 MG/DL (7-18); CALCIUM LEVEL 8.8 MG/DL (8.8-10.2); CARBON DIOXIDE LEVEL 27 MEQ/L (21-32); CHLORIDE LEVEL 111 MEQ/L (98-107); CREATININE FOR GFR 0.52 MG/DL (0.55-1.30); GLOMERULAR FILTRATION RATE > 60.0 (>32); GLUCOSE, FASTING 134 MG/DL (70-100); POTASSIUM SERUM 3.7 MEQ/L (3.5-5.1); SODIUM LEVEL 146 MEQ/L (136-145)
[2021-12-24] MEDS: ADVAIR HFA 230/21MCG INHALER INH SCH ×2 (08:00→20:39)
[2021-12-24] MEDS: TIOTROPIUM INHALER/CAPSULE (SPIRIVA) INH SCH (08:00)
[2021-12-24] MEDS: FERROUS SULFATE 325MG TAB PO SCH (08:30)
[2021-12-24] MEDS: LACTOBACILLUS ACIDOPHILUS CAP (BACID) PO SCH ×2 (08:31→20:27)
[2021-12-24] MEDS: DULoxetine 30MG CAPSULE (CYMBALTA) PO SCH (08:31)
[2021-12-24] MEDS: POTASSIUM CHLORIDE 10MEQ SR TABLET PO SCH ×2 (08:32→20:28)
[2021-12-24] MEDS: CLOPIDOGREL 75 MG TAB PO SCH (08:32)
[2021-12-24] MEDS: ENOXAPARIN 30MG/0.3ML SYRINGE (J1650 PER 10MG) SC SCH (08:33)
[2021-12-24] MEDS: CARVedilol 3.125 MG TAB PO SCH ×2 (08:33→20:28)
[2021-12-24] MEDS: ASPIRIN 81MG ENTERIC TABLET PO SCH (08:33)
[2021-12-24] MEDS: DOXYCYCLINE HYCLATE 100 MG in D5W MINI-BAG PLUS 100 ML IV SCH (08:34)
[2021-12-24] MEDS: PANTOPRAZOLE 20 MG TAB PO SCH (08:36)
[2021-12-24] MEDS ORDERED: DOCUSATE SODIUM 100MG CAPSULE PO SCH (09:00)
[2021-12-24] MEDS ORDERED: FUROSEMIDE 20 MG TAB PO SCH (09:00)
[2021-12-24] MEDS: D5W/0.45% SODIUM CHLORIDE 1,000 ML IV SCH (13:29)
[2021-12-24] MEDS: ACETAMINOPHEN TAB 650MG DOSE (2X325MG) PO PRN (13:47)
[2021-12-24 14:00] VITALS: BP 109/47
[2021-12-24] MEDS: PIPERACILLIN/TAZOBACTAM SOD 3.375 GM in D5W MINI-BAG PLUS 50 ML IV SCH ×2 (14:24→20:26)
[2021-12-24] MEDS: ATORVASTATIN 20 MG TAB PO SCH (20:27)
[2021-12-24] MEDS: RAMELTEON 8 MG TAB (ROZEREM) PO SCH (20:28)
[2021-12-24] MEDS: VITAMIN D 1,000 INTERNATIONAL UNITS TABLET PO SCH (20:28)
[2021-12-24] MEDS: LISINOPRIL *2.5 MG* TAB PO SCH (20:28)
[2021-12-24 20:32] VITALS: BP 120/50
[2021-12-25] MEDS: PIPERACILLIN/TAZOBACTAM SOD 3.375 GM in D5W MINI-BAG PLUS 50 ML IV SCH ×4 (01:41→20:01)
[2021-12-25] MEDS: D5W/0.45% SODIUM CHLORIDE 1,000 ML IV SCH (01:43)
[2021-12-25 06:01] VITALS: BP 127/53
[2021-12-25 07:00] LABS: HEMATOCRIT 29.8 % (36.0-47.0); HEMOGLOBIN 9.3 g/dl (12.0-15.5); MEAN CORPUSCULAR HEMOGLOBIN 28.4 pg (27.0-33.0); MEAN CORPUSCULAR HGB CONC 31.2 g/dl (32.0-36.5); MEAN CORPUSCULAR VOLUME 91.1 fl (80.0-96.0); PLATELET COUNT, AUTOMATED 289 10^3/uL (150-450); RED BLOOD COUNT 3.27 10^6/uL (4.00-5.40); WHITE BLOOD COUNT 9.8 10^3/uL (4.0-10.0)
[2021-12-25 07:12] LABS: BLOOD UREA NITROGEN 8 MG/DL (7-18); CALCIUM LEVEL 7.9 MG/DL (8.8-10.2); CARBON DIOXIDE LEVEL 28 MEQ/L (21-32); CHLORIDE LEVEL 106 MEQ/L (98-107); CREATININE FOR GFR 0.58 MG/DL (0.55-1.30); GLOMERULAR FILTRATION RATE > 60.0 (>32); GLUCOSE, FASTING 129 MG/DL (70-100); POTASSIUM SERUM 3.6 MEQ/L (3.5-5.1); SODIUM LEVEL 140 MEQ/L (136-145)
[2021-12-25] MEDS: ADVAIR HFA 230/21MCG INHALER INH SCH ×2 (07:32→20:03)
[2021-12-25] MEDS: TIOTROPIUM INHALER/CAPSULE (SPIRIVA) INH SCH (07:32)
[2021-12-25 08:00] VITALS: BP 138/50
[2021-12-25] MEDS: LACTOBACILLUS ACIDOPHILUS CAP (BACID) PO SCH ×2 (09:28→20:36)
[2021-12-25] MEDS: ACETAMINOPHEN TAB 650MG DOSE (2X325MG) PO PRN ×2 (09:28→16:32)
[2021-12-25] MEDS: POTASSIUM CHLORIDE 10MEQ SR TABLET PO SCH ×2 (09:29→20:35)
[2021-12-25] MEDS: CARVedilol 3.125 MG TAB PO SCH ×2 (09:29→20:35)
[2021-12-25] MEDS: ASPIRIN 81MG ENTERIC TABLET PO SCH (11:16)
[2021-12-25] MEDS: ENOXAPARIN 30MG/0.3ML SYRINGE (J1650 PER 10MG) SC SCH (11:16)
[2021-12-25] MEDS: DULoxetine 30MG CAPSULE (CYMBALTA) PO SCH (11:17)
[2021-12-25] MEDS: PANTOPRAZOLE 20 MG TAB PO SCH (11:17)
[2021-12-25] MEDS: FERROUS SULFATE 325MG TAB PO SCH (11:18)
[2021-12-25] MEDS: CLOPIDOGREL 75 MG TAB PO SCH (11:18)
[2021-12-25] MEDS: traMADol 50 MG TAB PO PRN ×2 (11:28→19:23)
[2021-12-25 14:00] VITALS: BP 130/60
[2021-12-25] MEDS: LISINOPRIL *2.5 MG* TAB PO SCH (20:34)
[2021-12-25] MEDS: VITAMIN D 1,000 INTERNATIONAL UNITS TABLET PO SCH (20:35)
[2021-12-25] MEDS: RAMELTEON 8 MG TAB (ROZEREM) PO SCH (20:35)
[2021-12-25] MEDS: ATORVASTATIN 20 MG TAB PO SCH (20:36)
[2021-12-25 22:00] VITALS: BP 114/48
[2021-12-26] MEDS: PIPERACILLIN/TAZOBACTAM SOD 3.375 GM in D5W MINI-BAG PLUS 50 ML IV SCH ×4 (02:53→20:15)
[2021-12-26] MEDS: traMADol 50 MG TAB PO PRN (03:52)
[2021-12-26] MEDS: ACETAMINOPHEN TAB 650MG DOSE (2X325MG) PO PRN (03:52)
[2021-12-26 06:00] VITALS: BP 115/47
[2021-12-26 06:06] LABS: HEMATOCRIT 27.9 % (36.0-47.0); MEAN CORPUSCULAR HEMOGLOBIN 29.2 pg (27.0-33.0); MEAN CORPUSCULAR HGB CONC 32.3 g/dl (32.0-36.5); MEAN CORPUSCULAR VOLUME 90.6 fl (80.0-96.0); PLATELET COUNT, AUTOMATED 285 10^3/uL (150-450); RED BLOOD COUNT 3.08 10^6/uL (4.00-5.40); WHITE BLOOD COUNT 8.6 10^3/uL (4.0-10.0)
[2021-12-26 06:21] LABS: BLOOD UREA NITROGEN 9 MG/DL (7-18); CALCIUM LEVEL 8.4 MG/DL (8.8-10.2); CARBON DIOXIDE LEVEL 27 MEQ/L (21-32); CHLORIDE LEVEL 108 MEQ/L (98-107); CREATININE FOR GFR 0.67 MG/DL (0.55-1.30); GLOMERULAR FILTRATION RATE > 60.0 (>32); GLUCOSE, FASTING 94 MG/DL (70-100); POTASSIUM SERUM 3.7 MEQ/L (3.5-5.1); SODIUM LEVEL 142 MEQ/L (136-145)
[2021-12-26] MEDS: TIOTROPIUM INHALER/CAPSULE (SPIRIVA) INH SCH (07:44)
[2021-12-26] MEDS: ADVAIR HFA 230/21MCG INHALER INH SCH ×2 (07:44→19:29)
[2021-12-26] MEDS: PANTOPRAZOLE 20 MG TAB PO SCH (08:19)
[2021-12-26] MEDS: ENOXAPARIN 30MG/0.3ML SYRINGE (J1650 PER 10MG) SC SCH (08:19)
[2021-12-26] MEDS: CLOPIDOGREL 75 MG TAB PO SCH (08:20)
[2021-12-26] MEDS: ASPIRIN 81MG ENTERIC TABLET PO SCH (08:20)
[2021-12-26] MEDS: DULoxetine 30MG CAPSULE (CYMBALTA) PO SCH (08:20)
[2021-12-26] MEDS: CARVedilol 3.125 MG TAB PO SCH ×2 (08:20→20:16)
[2021-12-26] MEDS: LACTOBACILLUS ACIDOPHILUS CAP (BACID) PO SCH ×2 (08:20→20:16)
[2021-12-26] MEDS: POTASSIUM CHLORIDE 10MEQ SR TABLET PO SCH ×2 (08:20→20:15)
[2021-12-26] MEDS: FERROUS SULFATE 325MG TAB PO SCH (08:20)
[2021-12-26 09:49] LABS: VENOUS BASE EXCESS 3.4 (-2.0-2.0); VENOUS HCO3 28.3 MEQ/L (23.0-27.0); VENOUS O2 SATURATION 68.6 % (60.0-80.0); VENOUS PARTIAL PRESSURE CO2 44.6 mmHg (38.0-50.0); VENOUS PARTIAL PRESSURE O2 37.3 mmHg (30.0-50.0); VENOUS STANDARD HCO3 26.9 MEQ/L; VENOUS TOTAL CO2 29.6 MEQ/L (24.0-28.0)
[2021-12-26 14:00] VITALS: BP 121/50
[2021-12-26 15:44] LABS: FREE T3 2.1 PG/ML (2.2-4.0); FREE T4 1.32 NG/DL (0.76-1.46); THYROID STIMULATING HORMONE 2.23 uIU/ML (0.358-3.740)
[2021-12-26] MEDS: VITAMIN D 1,000 INTERNATIONAL UNITS TABLET PO SCH (20:15)
[2021-12-26] MEDS: ATORVASTATIN 20 MG TAB PO SCH (20:15)
[2021-12-26] MEDS: RAMELTEON 8 MG TAB (ROZEREM) PO SCH (20:16)
[2021-12-26] MEDS: LISINOPRIL *2.5 MG* TAB PO SCH (20:17)
[2021-12-26] MEDS ORDERED: QUEtiapine FUMARATE 12.5 MG HALF-TAB PO SCH (21:00)
[2021-12-26 21:53] VITALS: BP 141/71
[2021-12-27 01:55] LABS: CK-MB VALUE MASS 1.4 NG/ML (<3.6); MB/CK RELATIVE INDEX 2.5 (< OR =4)
[2021-12-27] MEDS: PIPERACILLIN/TAZOBACTAM SOD 3.375 GM in D5W MINI-BAG PLUS 50 ML IV SCH ×4 (02:33→20:35)
[2021-12-27 06:00] VITALS: BP 135/65
[2021-12-27 07:35] LABS: HEMATOCRIT 32.8 % (36.0-47.0); HEMOGLOBIN 10.2 g/dl (12.0-15.5); MEAN CORPUSCULAR HGB CONC 31.1 g/dl (32.0-36.5); MEAN CORPUSCULAR VOLUME 90.1 fl (80.0-96.0); PLATELET COUNT, AUTOMATED 364 10^3/uL (150-450); RED BLOOD COUNT 3.64 10^6/uL (4.00-5.40); WHITE BLOOD COUNT 10.9 10^3/uL (4.0-10.0)
[2021-12-27 07:50] LABS: BLOOD UREA NITROGEN 7 MG/DL (7-18); CALCIUM LEVEL 9.2 MG/DL (8.8-10.2); CARBON DIOXIDE LEVEL 26 MEQ/L (21-32); CHLORIDE LEVEL 106 MEQ/L (98-107); CREATININE FOR GFR 0.68 MG/DL (0.55-1.30); GLOMERULAR FILTRATION RATE > 60.0 (>32); GLUCOSE, FASTING 90 MG/DL (70-100); POTASSIUM SERUM 3.3 MEQ/L (3.5-5.1); SODIUM LEVEL 143 MEQ/L (136-145)
[2021-12-27] MEDS: TIOTROPIUM INHALER/CAPSULE (SPIRIVA) INH SCH (08:06)
[2021-12-27] MEDS: ADVAIR HFA 230/21MCG INHALER INH SCH ×2 (08:06→19:15)
[2021-12-27] MEDS: ENOXAPARIN 30MG/0.3ML SYRINGE (J1650 PER 10MG) SC SCH (08:18)
[2021-12-27] MEDS: DULoxetine 30MG CAPSULE (CYMBALTA) PO SCH (08:24)
[2021-12-27] MEDS: CARVedilol 3.125 MG TAB PO SCH ×2 (08:24→20:37)
[2021-12-27] MEDS: LACTOBACILLUS ACIDOPHILUS CAP (BACID) PO SCH ×2 (08:24→20:35)
[2021-12-27] MEDS: ASPIRIN 81MG ENTERIC TABLET PO SCH (08:25)
[2021-12-27] MEDS: FERROUS SULFATE 325MG TAB PO SCH (08:25)
[2021-12-27] MEDS ORDERED: QUEtiapine FUMARATE 25 MG TAB PO ONE (08:25)
[2021-12-27] MEDS: POTASSIUM CHLORIDE 10MEQ SR TABLET PO SCH ×2 (08:25→20:36)
[2021-12-27] MEDS: PANTOPRAZOLE 20 MG TAB PO SCH (08:25)
[2021-12-27] MEDS: CLOPIDOGREL 75 MG TAB PO SCH (08:25)
[2021-12-27 14:00] VITALS: BP 116/91
[2021-12-27] MEDS ORDERED: POTASSIUM CHLORIDE 10MEQ SR TABLET PO ONE (15:15)
[2021-12-27 20:22] LABS: CK-MB VALUE MASS 1.4 NG/ML (<3.6); MB/CK RELATIVE INDEX 1.25 (< OR =4)
[2021-12-27] MEDS: RAMELTEON 8 MG TAB (ROZEREM) PO SCH (20:35)
[2021-12-27] MEDS: LISINOPRIL *2.5 MG* TAB PO SCH (20:36)
[2021-12-27] MEDS: ACETAMINOPHEN TAB 650MG DOSE (2X325MG) PO PRN (20:36)
[2021-12-27] MEDS: VITAMIN D 1,000 INTERNATIONAL UNITS TABLET PO SCH (20:36)
[2021-12-27] MEDS: QUEtiapine FUMARATE 25 MG TAB PO SCH (20:37)
[2021-12-27] MEDS: ATORVASTATIN 20 MG TAB PO SCH (20:37)
[2021-12-28] MEDS: PIPERACILLIN/TAZOBACTAM SOD 3.375 GM in D5W MINI-BAG PLUS 50 ML IV SCH ×3 (02:14→14:56)
[2021-12-28 06:09] VITALS: BP 91/57
[2021-12-28 06:37] LABS: HEMOGLOBIN 9.9 g/dl (12.0-15.5); MEAN CORPUSCULAR HEMOGLOBIN 29.1 pg (27.0-33.0); MEAN CORPUSCULAR HGB CONC 31.9 g/dl (32.0-36.5); MEAN CORPUSCULAR VOLUME 91.2 fl (80.0-96.0); PLATELET COUNT, AUTOMATED 358 10^3/uL (150-450); WHITE BLOOD COUNT 8.6 10^3/uL (4.0-10.0)
[2021-12-28 07:12] LABS: BLOOD UREA NITROGEN 9 MG/DL (7-18); C REACTIVE PROTEIN QUANTITATIV 5.29 MG/DL (0.00-0.30); CALCIUM LEVEL 8.7 MG/DL (8.8-10.2); CARBON DIOXIDE LEVEL 26 MEQ/L (21-32); CHLORIDE LEVEL 110 MEQ/L (98-107); CK-MB VALUE MASS 2.6 NG/ML (<3.6); CREATININE FOR GFR 0.59 MG/DL (0.55-1.30); GLOMERULAR FILTRATION RATE > 60.0 (>32); GLUCOSE, FASTING 75 MG/DL (70-100); MB/CK RELATIVE INDEX 1.17 (< OR =4); POTASSIUM SERUM 4.7 MEQ/L (3.5-5.1); SODIUM LEVEL 144 MEQ/L (136-145)
[2021-12-28] MEDS: TIOTROPIUM INHALER/CAPSULE (SPIRIVA) INH SCH (07:15)
[2021-12-28] MEDS: ADVAIR HFA 230/21MCG INHALER INH SCH ×2 (07:15→20:00)
[2021-12-28 08:12] LABS: ERYTHROCYTE SEDIMENTATION RATE 66 mm/hr (0-30)
[2021-12-28] MEDS: CLOPIDOGREL 75 MG TAB PO SCH (08:44)
[2021-12-28] MEDS: ASPIRIN 81MG ENTERIC TABLET PO SCH (08:44)
[2021-12-28] MEDS: ACETAMINOPHEN TAB 650MG DOSE (2X325MG) PO PRN ×2 (08:44→21:28)
[2021-12-28] MEDS: FERROUS SULFATE 325MG TAB PO SCH (08:45)
[2021-12-28] MEDS: LACTOBACILLUS ACIDOPHILUS CAP (BACID) PO SCH ×2 (08:47→21:28)
[2021-12-28] MEDS: PANTOPRAZOLE 20 MG TAB PO SCH (08:47)
[2021-12-28] MEDS: DULoxetine 30MG CAPSULE (CYMBALTA) PO SCH (08:47)
[2021-12-28] MEDS: CARVedilol 3.125 MG TAB PO SCH ×2 (08:47→21:32)
[2021-12-28] MEDS: POTASSIUM CHLORIDE 10MEQ SR TABLET PO SCH ×2 (08:48→21:28)
[2021-12-28] MEDS: ENOXAPARIN 30MG/0.3ML SYRINGE (J1650 PER 10MG) SC SCH (08:48)
[2021-12-28] MEDS ORDERED: ZOSY1SOL5 IV ×2 (10:52→10:54)
[2021-12-28 14:00] VITALS: BP 116/50
[2021-12-28] MEDS: BACTRIM 160MG/800MG DS TAB PO SCH (17:52)
[2021-12-28] MEDS: VITAMIN D 1,000 INTERNATIONAL UNITS TABLET PO SCH (21:27)
[2021-12-28] MEDS: AUGMENTIN 875 MG TAB PO SCH (21:28)
[2021-12-28] MEDS: ATORVASTATIN 20 MG TAB PO SCH (21:32)
[2021-12-28] MEDS: QUEtiapine FUMARATE 25 MG TAB PO SCH (21:32)
[2021-12-28] MEDS: RAMELTEON 8 MG TAB (ROZEREM) PO SCH (21:34)
[2021-12-28 22:00] VITALS: BP 126/53
[2021-12-29] MEDS: BACTRIM 160MG/800MG DS TAB PO SCH ×2 (05:40→16:28)
[2021-12-29] MEDS: ACETAMINOPHEN TAB 650MG DOSE (2X325MG) PO PRN (05:40)
[2021-12-29 06:00] VITALS: BP 118/55
[2021-12-29] MEDS: ADVAIR HFA 230/21MCG INHALER INH SCH (07:23)
[2021-12-29] MEDS: TIOTROPIUM INHALER/CAPSULE (SPIRIVA) INH SCH (07:23)
[2021-12-29] MEDS: AUGMENTIN 875 MG TAB PO SCH (08:41)
[2021-12-29] MEDS: POTASSIUM CHLORIDE 10MEQ SR TABLET PO SCH (08:41)
[2021-12-29] MEDS: ENOXAPARIN 30MG/0.3ML SYRINGE (J1650 PER 10MG) SC SCH (08:41)
[2021-12-29] MEDS: LACTOBACILLUS ACIDOPHILUS CAP (BACID) PO SCH (08:41)
[2021-12-29] MEDS: ASPIRIN 81MG ENTERIC TABLET PO SCH (08:41)
[2021-12-29 08:42] VITALS: BP 118/55
[2021-12-29] MEDS: DULoxetine 30MG CAPSULE (CYMBALTA) PO SCH (08:42)
[2021-12-29] MEDS: PANTOPRAZOLE 20 MG TAB PO SCH (08:42)
[2021-12-29] MEDS: FERROUS SULFATE 325MG TAB PO SCH (08:42)
[2021-12-29] MEDS: CARVedilol 3.125 MG TAB PO SCH (08:42)
[2021-12-29] MEDS: CLOPIDOGREL 75 MG TAB PO SCH (08:42)
[2021-12-29] MEDS ORDERED: AMOX875T2 PO (08:45)
[2021-12-29] MEDS ORDERED: BACTDSTA PO (08:45)
[2021-12-29] MEDS ORDERED: REMDESIVIR 200 MG in NS 250 ML IV ONE (12:00)
[2021-12-29 14:00] VITALS: BP 113/49
[2021-12-29] MEDS ORDERED: SODIUM CHLORIDE 0.9% INJ 10 ML SYR IV ONE (14:00)
[2021-12-29 18:00] VITALS: BP 162/78
[2021-12-30] MEDS ORDERED: REMDESIVIR 100 MG in NS 250 ML IV SCH (12:00)
[2021-12-30] MEDS ORDERED: SODIUM CHLORIDE 0.9% INJ 10 ML SYR IV SCH (13:00)
== END 2021-12-29 16:30 | DRG 314 ==
LOC: M ED 12:53 → EDBD 12:53 → M ED INP 18:39 → M MS5PR 20:21
PROVIDERS: ADMIT Internal Medicine; ATTEND General Practice
DX: T82.7XXA Infection and inflammatory reaction due to other cardiac and vascular devices, implants and grafts, initial encounter (principal); G93.41 Metabolic encephalopathy; K65.1 Peritoneal abscess; I50.32 Chronic diastolic (congestive) heart failure; J96.11 Chronic respiratory failure with hypoxia; I25.10 Atherosclerotic heart disease of native coronary artery without angina pectoris; Z95.5 Presence of coronary angioplasty implant and graft; I73.9 Peripheral vascular disease, unspecified; Z89.612 Acquired absence of left leg above knee; H35.30 Unspecified macular degeneration; R44.1 Visual hallucinations; D64.9 Anemia, unspecified; J44.9 Chronic obstructive pulmonary disease, unspecified; Z99.81 Dependence on supplemental oxygen; K21.9 Gastro-esophageal reflux disease without esophagitis; I11.0 Hypertensive heart disease with heart failure; Z86.73 Personal history of transient ischemic attack (TIA), and cerebral infarction without residual deficits; Z95.828 Presence of other vascular implants and grafts; Z98.41 Cataract extraction status, right eye; Z98.42 Cataract extraction status, left eye; Z87.891 Personal history of nicotine dependence; E86.0 Dehydration; H54.8 Legal blindness, as defined in USA; Z66 Do not resuscitate

== ENCOUNTER 2021-12-31 09:59 | Inpatient (IN) | payer MEDICARE ==
[~2021-12-31] VITALS: Ht 162.6 cm; Wt 50.0 kg
[~2021-12-31 09:59] MED LIST changes: +APAP325T4 PO; +BACTDSTA PO; +BD P0.9I2 IV; +CYAN100050 PO; +ENEMENE PR; +INVA1SOL IV; +LOPE1CAP5 PO; +PANT20TA6 PO; +ZOSY1SOL5 IV
[2021-12-31] MEDS ORDERED: NS 1,000 ML IV ONE (10:55)
[2021-12-31] MEDS ORDERED: HALOPERIDOL 5MG/ML VIAL (J1630 PER 1) As Ordered ONE (11:05)
[2021-12-31] MEDS ORDERED: HALOPERIDOL 5MG/ML VIAL (J1630 PER 1) IV ONE (11:05)
[2021-12-31 11:24] LABS: VENOUS BASE EXCESS -4.5 (-2.0-2.0); VENOUS HCO3 19.1 MEQ/L (23.0-27.0); VENOUS O2 SATURATION 95.6 % (60.0-80.0); VENOUS PARTIAL PRESSURE CO2 30.9 mmHg (38.0-50.0); VENOUS PARTIAL PRESSURE O2 82.1 mmHg (30.0-50.0); VENOUS STANDARD HCO3 20.7 MEQ/L; VENOUS TOTAL CO2 20.1 MEQ/L (24.0-28.0)
[2021-12-31 11:33] LABS: BASO # 0.1 10^3/uL (0.0-0.2); BASO % 0.8 % (0.0-1.0); EOS % 0.3 % (0.0-3.0); HEMATOCRIT 35.1 % (36.0-47.0); LYMPH # 1.5 10^3/uL (1.5-5.0); LYMPH % 14.4 % (24.0-44.0); MEAN CORPUSCULAR HGB CONC 31.3 g/dl (32.0-36.5); MEAN CORPUSCULAR VOLUME 92.6 fl (80.0-96.0); MONO # 1.1 10^3/uL (0.0-0.8); MONO % 11.2 % (2.0-8.0); NEUTROPHILS # 7.4 10^3/uL (1.5-8.5); NEUTROPHILS % 72.8 % (36.0-66.0); PLATELET COUNT, AUTOMATED 351 10^3/uL (150-450); RED BLOOD COUNT 3.79 10^6/uL (4.00-5.40); WHITE BLOOD COUNT 10.2 10^3/uL (4.0-10.0)
[2021-12-31 12:13] LABS: CK-MB VALUE MASS 1.9 NG/ML (<3.6); MB/CK RELATIVE INDEX 1.41 (< OR =4)
[2021-12-31 12:23] LABS: ACETAMINOPHEN LEVEL < 2.0 UG/ML (10.0-30.0); ALBUMIN 3.1 GM/DL (3.2-5.2); ALT/SGPT 17 U/L (12-78); BILIRUBIN,DIRECT 0.1 MG/DL (0.0-0.2); BILIRUBIN,TOTAL 0.5 MG/DL (0.2-1.0); BLOOD UREA NITROGEN 11 MG/DL (7-18); CALCIUM LEVEL 9.5 MG/DL (8.8-10.2); CARBON DIOXIDE LEVEL 22 MEQ/L (21-32); CHLORIDE LEVEL 109 MEQ/L (98-107); GLOMERULAR FILTRATION RATE > 60.0 (>32); GLUCOSE, FASTING 81 MG/DL (70-100); POTASSIUM SERUM 4.6 MEQ/L (3.5-5.1); SALICYLATE LEVEL < 1.7 MG/DL (5.0-30.0); SODIUM LEVEL 142 MEQ/L (136-145); TOTAL PROTEIN 7.1 GM/DL (6.4-8.2)
[2021-12-31 12:25] LABS: ETHYL ALCOHOL (ETHANOL) < 0.003 % (0.000-0.010)
[2021-12-31 13:19] LABS: OSMOLALITY SERUM 287 MOSM/KG (280-301)
[2021-12-31 15:11] LABS: AMPHETAMINES LEVEL URINE NEGATIVE (NEGATIVE); BARBITURATES URINE NEGATIVE (NEGATIVE); BENZODIAZEPINES URINE NEGATIVE (NEGATIVE); CANNABINOIDS URINE NEGATIVE (NEGATIVE); COCAINE METABOLITE URINE NEGATIVE (NEGATIVE); METHADONE URINE NEGATIVE (NEGATIVE); OPIATES URINE NEGATIVE (NEGATIVE); PHENCYCLIDINE URINE NEGATIVE (NEGATIVE)
[2021-12-31] MEDS ORDERED: ACETAMINOPHEN TAB 650MG DOSE (2X325MG) PO ONE (18:00)
[2021-12-31] MEDS ORDERED: AMOX875T PO (18:45)
[2021-12-31] MEDS ORDERED: MUCI600T31 PO (18:45)
[2021-12-31] MEDS ORDERED: FLOM0.4C39 PO (18:45)
[2021-12-31] MEDS ORDERED: HOME MED LIST COMPLETE! XX SCH (18:50)
[2021-12-31 20:09] LABS: RSV AMPLIFICATION NEGATIVE (NEGATIVE)
[2021-12-31] MEDS ORDERED: NITROGLYCERIN 0.4 MG SUBL TABLET SL PRN (20:15)
[2021-12-31] MEDS ORDERED: BISACODYL 10 MG SUPP PR PRN (20:15)
[2021-12-31] MEDS ORDERED: ALBUTEROL 90 MCG/ACT 8GM HFA INHALER INH PRN (20:15)
[2021-12-31] MEDS ORDERED: FLEET ENEMA PR PRN (20:15)
[2021-12-31] MEDS ORDERED: guaiFENesin ER 600 MG TAB PO PRN (20:15)
[2021-12-31] MEDS ORDERED: MOM 30ML SUSPENSION UDC PO PRN (20:15)
[2021-12-31] MEDS ORDERED: CARVedilol 3.125 MG TAB PO SCH (21:00)
[2021-12-31] MEDS ORDERED: SLF 3 ML SYR IV SCH (21:00)
[2021-12-31 23:02] VITALS: BP 149/65
[2021-12-31] MEDS: AMOXICILLIN 875 MG TAB PO SCH (23:36)
[2021-12-31] MEDS: ATORVASTATIN 20 MG TAB PO SCH (23:37)
[2021-12-31] MEDS: ACETAMINOPHEN TAB 650MG DOSE (2X325MG) PO SCH (23:38)
[2021-12-31] MEDS: VITAMIN D 1,000 INTERNATIONAL UNITS TABLET PO SCH (23:38)
[2021-12-31] MEDS: POTASSIUM CHLORIDE 10MEQ SR TABLET PO SCH (23:39)
[2021-12-31] MEDS: OCUVITE 1 TAB PO SCH (23:42)
[2022-01-01 06:00] VITALS: BP 176/71
[2022-01-01] MEDS ORDERED: CARVedilol 6.25 MG TAB PO ONE (07:30)
[2022-01-01 07:31] LABS: HEMATOCRIT 34.7 % (36.0-47.0); HEMOGLOBIN 10.9 g/dl (12.0-15.5); MEAN CORPUSCULAR HEMOGLOBIN 28.7 pg (27.0-33.0); MEAN CORPUSCULAR HGB CONC 31.4 g/dl (32.0-36.5); MEAN CORPUSCULAR VOLUME 91.3 fl (80.0-96.0); PLATELET COUNT, AUTOMATED 350 10^3/uL (150-450); WHITE BLOOD COUNT 7.1 10^3/uL (4.0-10.0)
[2022-01-01] MEDS: LACTOBACILLUS ACIDOPHILUS CAP (BACID) PO SCH ×3 (07:48→18:13)
[2022-01-01 07:50] LABS: BLOOD UREA NITROGEN 11 MG/DL (7-18); CARBON DIOXIDE LEVEL 25 MEQ/L (21-32); CHLORIDE LEVEL 110 MEQ/L (98-107); CREATININE FOR GFR 0.68 MG/DL (0.55-1.30); GLOMERULAR FILTRATION RATE > 60.0 (>32); GLUCOSE, FASTING 90 MG/DL (70-100); POTASSIUM SERUM 3.9 MEQ/L (3.5-5.1); SODIUM LEVEL 144 MEQ/L (136-145)
[2022-01-01 07:52] VITALS: BP 145/59
[2022-01-01] MEDS: PANTOPRAZOLE 20 MG TAB PO SCH (08:45)
[2022-01-01] MEDS: ACETAMINOPHEN TAB 650MG DOSE (2X325MG) PO SCH ×2 (08:45→21:25)
[2022-01-01] MEDS: ASPIRIN 81MG ENTERIC TABLET PO SCH (08:45)
[2022-01-01] MEDS: AMOXICILLIN 875 MG TAB PO SCH ×2 (08:46→21:24)
[2022-01-01] MEDS: DOCUSATE SODIUM 100MG CAPSULE PO SCH (08:46)
[2022-01-01] MEDS: FERROUS SULFATE 325MG TAB PO SCH (08:46)
[2022-01-01] MEDS: POTASSIUM CHLORIDE 10MEQ SR TABLET PO SCH ×2 (08:46→21:24)
[2022-01-01] MEDS: TAMSULOSIN 0.4 MG CAP PO SCH (08:46)
[2022-01-01 09:50] VITALS: BP 149/63
[2022-01-01] MEDS: CLOPIDOGREL 75 MG TAB PO SCH (11:46)
[2022-01-01] MEDS: lisinopriL 5 MG TAB PO SCH (11:46)
[2022-01-01] MEDS: ACETAMINOPHEN 500 MG TAB PO PRN (15:59)
[2022-01-01] MEDS: CARVedilol 6.25 MG TAB PO SCH (21:00)
[2022-01-01] MEDS: OCUVITE 1 TAB PO SCH (21:24)
[2022-01-01] MEDS: VITAMIN D 1,000 INTERNATIONAL UNITS TABLET PO SCH (21:24)
[2022-01-01] MEDS: ATORVASTATIN 20 MG TAB PO SCH (21:24)
[2022-01-02] MEDS: ACETAMINOPHEN 500 MG TAB PO PRN ×2 (00:20→23:28)
[2022-01-02 06:00] VITALS: BP 158/65
[2022-01-02 07:52] LABS: HEMATOCRIT 33.6 % (36.0-47.0); HEMOGLOBIN 10.3 g/dl (12.0-15.5); MEAN CORPUSCULAR HEMOGLOBIN 27.8 pg (27.0-33.0); MEAN CORPUSCULAR HGB CONC 30.7 g/dl (32.0-36.5); MEAN CORPUSCULAR VOLUME 90.8 fl (80.0-96.0); PLATELET COUNT, AUTOMATED 318 10^3/uL (150-450); WHITE BLOOD COUNT 4.8 10^3/uL (4.0-10.0)
[2022-01-02] MEDS: LACTOBACILLUS ACIDOPHILUS CAP (BACID) PO SCH ×3 (08:00→18:34)
[2022-01-02 08:56] LABS: BLOOD UREA NITROGEN 13 MG/DL (7-18); CALCIUM LEVEL 8.8 MG/DL (8.8-10.2); CARBON DIOXIDE LEVEL 26 MEQ/L (21-32); CHLORIDE LEVEL 111 MEQ/L (98-107); GLOMERULAR FILTRATION RATE > 60.0 (>32); GLUCOSE, FASTING 107 MG/DL (70-100); SODIUM LEVEL 145 MEQ/L (136-145)
[2022-01-02] MEDS: FERROUS SULFATE 325MG TAB PO SCH (09:51)
[2022-01-02] MEDS: ASPIRIN 81MG ENTERIC TABLET PO SCH (09:51)
[2022-01-02] MEDS: TAMSULOSIN 0.4 MG CAP PO SCH (09:51)
[2022-01-02] MEDS: AMOXICILLIN 875 MG TAB PO SCH ×2 (09:51→20:33)
[2022-01-02] MEDS: DOCUSATE SODIUM 100MG CAPSULE PO SCH (09:51)
[2022-01-02] MEDS: POTASSIUM CHLORIDE 10MEQ SR TABLET PO SCH ×2 (09:52→20:35)
[2022-01-02] MEDS: CLOPIDOGREL 75 MG TAB PO SCH (09:52)
[2022-01-02] MEDS: ACETAMINOPHEN TAB 650MG DOSE (2X325MG) PO SCH ×2 (09:52→20:34)
[2022-01-02] MEDS: PANTOPRAZOLE 20 MG TAB PO SCH (09:53)
[2022-01-02] MEDS: CARVedilol 6.25 MG TAB PO SCH (09:54)
[2022-01-02] MEDS: lisinopriL 5 MG TAB PO SCH (09:54)
[2022-01-02] MEDS ORDERED: CARVedilol 6.25 MG TAB PO ONE (11:40)
[2022-01-02] MEDS: ONDANSETRON 4MG TAB PO PRN (13:46)
[2022-01-02] MEDS: OCUVITE 1 TAB PO SCH (20:33)
[2022-01-02] MEDS: VITAMIN D 1,000 INTERNATIONAL UNITS TABLET PO SCH (20:33)
[2022-01-02] MEDS: ATORVASTATIN 20 MG TAB PO SCH (20:33)
[2022-01-02] MEDS: CARVedilol 12.5 MG TAB PO SCH (20:34)
[2022-01-03] MEDS ORDERED: KETOROLAC 30 MG/ML 1ML VIAL IV ONE (02:05)
[2022-01-03 04:38] VITALS: BP 152/67
[2022-01-03 08:11] LABS: HEMATOCRIT 34.9 % (36.0-47.0); HEMOGLOBIN 10.6 g/dl (12.0-15.5); MEAN CORPUSCULAR HGB CONC 30.4 g/dl (32.0-36.5); MEAN CORPUSCULAR VOLUME 92.3 fl (80.0-96.0); PLATELET COUNT, AUTOMATED 334 10^3/uL (150-450); RED BLOOD COUNT 3.78 10^6/uL (4.00-5.40); WHITE BLOOD COUNT 4.1 10^3/uL (4.0-10.0)
[2022-01-03 08:39] LABS: BLOOD UREA NITROGEN 16 MG/DL (7-18); CARBON DIOXIDE LEVEL 23 MEQ/L (21-32); CHLORIDE LEVEL 112 MEQ/L (98-107); CREATININE FOR GFR 0.71 MG/DL (0.55-1.30); GLOMERULAR FILTRATION RATE > 60.0 (>32); GLUCOSE, FASTING 109 MG/DL (70-100); POTASSIUM SERUM 4.7 MEQ/L (3.5-5.1); SODIUM LEVEL 142 MEQ/L (136-145)
[2022-01-03] MEDS: DOCUSATE SODIUM 100MG CAPSULE PO SCH (09:02)
[2022-01-03] MEDS: AMOXICILLIN 875 MG TAB PO SCH ×2 (09:02→20:38)
[2022-01-03] MEDS: ASPIRIN 81MG ENTERIC TABLET PO SCH (09:02)
[2022-01-03] MEDS: LACTOBACILLUS ACIDOPHILUS CAP (BACID) PO SCH ×3 (09:02→17:08)
[2022-01-03] MEDS: FERROUS SULFATE 325MG TAB PO SCH (09:02)
[2022-01-03] MEDS: POTASSIUM CHLORIDE 10MEQ SR TABLET PO SCH ×2 (09:03→20:40)
[2022-01-03] MEDS: CARVedilol 12.5 MG TAB PO SCH ×2 (09:03→20:36)
[2022-01-03] MEDS: CLOPIDOGREL 75 MG TAB PO SCH (09:03)
[2022-01-03] MEDS: ACETAMINOPHEN TAB 650MG DOSE (2X325MG) PO SCH ×2 (09:04→20:38)
[2022-01-03] MEDS: lisinopriL 5 MG TAB PO SCH (09:04)
[2022-01-03] MEDS: PANTOPRAZOLE 20 MG TAB PO SCH (09:05)
[2022-01-03] MEDS: TAMSULOSIN 0.4 MG CAP PO SCH (09:05)
[2022-01-03] MEDS: ONDANSETRON 4MG TAB PO PRN (09:56)
[2022-01-03] MEDS: ACETAMINOPHEN 500 MG TAB PO PRN (15:24)
[2022-01-03 20:20] VITALS: BP 124/80
[2022-01-03] MEDS: VITAMIN D 1,000 INTERNATIONAL UNITS TABLET PO SCH (20:40)
[2022-01-03] MEDS: ATORVASTATIN 20 MG TAB PO SCH (20:40)
[2022-01-03] MEDS: OCUVITE 1 TAB PO SCH (20:40)
[2022-01-03] MEDS: KETOROLAC 30 MG/ML 1ML VIAL IV PRN (23:18)
[2022-01-04 04:51] VITALS: BP 153/70
[2022-01-04 07:14] LABS: HEMOGLOBIN 10.5 g/dl (12.0-15.5); MEAN CORPUSCULAR HEMOGLOBIN 28.6 pg (27.0-33.0); MEAN CORPUSCULAR HGB CONC 30.9 g/dl (32.0-36.5); MEAN CORPUSCULAR VOLUME 92.6 fl (80.0-96.0); PLATELET COUNT, AUTOMATED 286 10^3/uL (150-450); RED BLOOD COUNT 3.67 10^6/uL (4.00-5.40)
[2022-01-04 07:41] LABS: BLOOD UREA NITROGEN 20 MG/DL (7-18); CALCIUM LEVEL 8.7 MG/DL (8.8-10.2); CARBON DIOXIDE LEVEL 25 MEQ/L (21-32); CHLORIDE LEVEL 116 MEQ/L (98-107); CREATININE FOR GFR 0.63 MG/DL (0.55-1.30); GLOMERULAR FILTRATION RATE > 60.0 (>32); GLUCOSE, FASTING 121 MG/DL (70-100); POTASSIUM SERUM 4.7 MEQ/L (3.5-5.1); SODIUM LEVEL 148 MEQ/L (136-145)
[2022-01-04] MEDS: AMOXICILLIN 875 MG TAB PO SCH ×2 (08:26→21:48)
[2022-01-04] MEDS: FERROUS SULFATE 325MG TAB PO SCH (08:27)
[2022-01-04] MEDS: LACTOBACILLUS ACIDOPHILUS CAP (BACID) PO SCH ×3 (08:27→18:02)
[2022-01-04] MEDS: POTASSIUM CHLORIDE 10MEQ SR TABLET PO SCH ×2 (08:28→21:47)
[2022-01-04] MEDS: TAMSULOSIN 0.4 MG CAP PO SCH (08:28)
[2022-01-04] MEDS: DOCUSATE SODIUM 100MG CAPSULE PO SCH (08:28)
[2022-01-04] MEDS: ACETAMINOPHEN TAB 650MG DOSE (2X325MG) PO SCH ×2 (08:28→21:48)
[2022-01-04] MEDS: ASPIRIN 81MG ENTERIC TABLET PO SCH (08:28)
[2022-01-04] MEDS: CLOPIDOGREL 75 MG TAB PO SCH (08:28)
[2022-01-04] MEDS: lisinopriL 5 MG TAB PO SCH (08:29)
[2022-01-04] MEDS: CARVedilol 12.5 MG TAB PO SCH ×2 (08:29→21:48)
[2022-01-04] MEDS: PANTOPRAZOLE 20 MG TAB PO SCH (09:00)
[2022-01-04] MEDS: ACETAMINOPHEN 500 MG TAB PO PRN (10:52)
[2022-01-04] MEDS: ONDANSETRON 4MG TAB PO PRN (12:41)
[2022-01-04] MEDS: KETOROLAC 30 MG/ML 1ML VIAL IV PRN (19:07)
[2022-01-04 20:00] VITALS: BP 139/60
[2022-01-04] MEDS: ATORVASTATIN 20 MG TAB PO SCH (21:46)
[2022-01-04] MEDS: OCUVITE 1 TAB PO SCH (21:46)
[2022-01-04] MEDS: VITAMIN D 1,000 INTERNATIONAL UNITS TABLET PO SCH (21:47)
[2022-01-05] MEDS: KETOROLAC 30 MG/ML 1ML VIAL IV PRN ×3 (01:23→20:47)
[2022-01-05 04:00] VITALS: BP 152/68
[2022-01-05] MEDS: DOCUSATE SODIUM 100MG CAPSULE PO SCH (09:44)
[2022-01-05] MEDS: ASPIRIN 81MG ENTERIC TABLET PO SCH (09:45)
[2022-01-05] MEDS: FERROUS SULFATE 325MG TAB PO SCH (09:45)
[2022-01-05] MEDS: TAMSULOSIN 0.4 MG CAP PO SCH (09:45)
[2022-01-05] MEDS: LACTOBACILLUS ACIDOPHILUS CAP (BACID) PO SCH ×3 (09:45→17:59)
[2022-01-05] MEDS: CARVedilol 12.5 MG TAB PO SCH ×2 (09:46→20:49)
[2022-01-05] MEDS: ACETAMINOPHEN TAB 650MG DOSE (2X325MG) PO SCH ×2 (09:46→20:47)
[2022-01-05] MEDS: CLOPIDOGREL 75 MG TAB PO SCH (09:46)
[2022-01-05] MEDS: PANTOPRAZOLE 20 MG TAB PO SCH (09:46)
[2022-01-05] MEDS: POTASSIUM CHLORIDE 10MEQ SR TABLET PO SCH ×2 (09:46→20:46)
[2022-01-05] MEDS: lisinopriL 5 MG TAB PO SCH (09:46)
[2022-01-05] MEDS: ONDANSETRON 4MG TAB PO PRN (10:59)
[2022-01-05] MEDS: AMOXICILLIN 875 MG TAB PO SCH ×2 (12:32→20:45)
[2022-01-05] MEDS: VITAMIN D 1,000 INTERNATIONAL UNITS TABLET PO SCH (20:45)
[2022-01-05] MEDS: ATORVASTATIN 20 MG TAB PO SCH (20:46)
[2022-01-05] MEDS: OCUVITE 1 TAB PO SCH (20:46)
[2022-01-05] MEDS ORDERED: MORPHINE 2 MG/ML 1ML VIAL IV ONE (22:45)
[2022-01-06] MEDS: carisoprodoL 350 MG TAB PO PRN ×3 (00:07→16:51)
[2022-01-06] MEDS: ACETAMINOPHEN 500 MG TAB PO PRN ×2 (02:01→02:09)
[2022-01-06] MEDS ORDERED: MORPHINE 2 MG/ML 1ML VIAL IV ONE (03:00)
[2022-01-06 06:07] VITALS: BP 133/63
[2022-01-06 07:44] LABS: HEMATOCRIT 29.9 % (36.0-47.0); HEMOGLOBIN 9.2 g/dl (12.0-15.5); MEAN CORPUSCULAR HGB CONC 30.8 g/dl (32.0-36.5); MEAN CORPUSCULAR VOLUME 94.3 fl (80.0-96.0); PLATELET COUNT, AUTOMATED 243 10^3/uL (150-450); RED BLOOD COUNT 3.17 10^6/uL (4.00-5.40); WHITE BLOOD COUNT 6.5 10^3/uL (4.0-10.0)
[2022-01-06 08:07] LABS: BLOOD UREA NITROGEN 24 MG/DL (7-18); CARBON DIOXIDE LEVEL 27 MEQ/L (21-32); CHLORIDE LEVEL 115 MEQ/L (98-107); GLOMERULAR FILTRATION RATE > 60.0 (>32); GLUCOSE, FASTING 119 MG/DL (70-100); POTASSIUM SERUM 4.8 MEQ/L (3.5-5.1); SODIUM LEVEL 143 MEQ/L (136-145)
[2022-01-06 08:08] LABS: CALCIUM LEVEL 8.2 MG/DL (8.8-10.2)
[2022-01-06] MEDS: LACTOBACILLUS ACIDOPHILUS CAP (BACID) PO SCH ×3 (08:53→17:50)
[2022-01-06] MEDS: POTASSIUM CHLORIDE 10MEQ SR TABLET PO SCH ×2 (08:53→19:58)
[2022-01-06] MEDS: AMOXICILLIN 875 MG TAB PO SCH ×2 (08:53→19:58)
[2022-01-06] MEDS: ASPIRIN 81MG ENTERIC TABLET PO SCH (08:53)
[2022-01-06] MEDS: CLOPIDOGREL 75 MG TAB PO SCH (08:53)
[2022-01-06] MEDS: ACETAMINOPHEN TAB 650MG DOSE (2X325MG) PO SCH (08:54)
[2022-01-06] MEDS: TAMSULOSIN 0.4 MG CAP PO SCH (08:54)
[2022-01-06] MEDS: CARVedilol 12.5 MG TAB PO SCH ×2 (08:54→20:11)
[2022-01-06] MEDS: FERROUS SULFATE 325MG TAB PO SCH (08:54)
[2022-01-06] MEDS: lisinopriL 5 MG TAB PO SCH (08:54)
[2022-01-06] MEDS: DOCUSATE SODIUM 100MG CAPSULE PO SCH (08:54)
[2022-01-06] MEDS: PANTOPRAZOLE 20 MG TAB PO SCH (08:54)
[2022-01-06] MEDS: BACTRIM 160MG/800MG DS TAB PO SCH ×2 (14:56→19:58)
[2022-01-06] MEDS: TIOTROPIUM INHALER/CAPSULE (SPIRIVA) INH SCH (16:13)
[2022-01-06] MEDS: IBUPROFEN 600MG TAB PO PRN (16:51)
[2022-01-06] MEDS: ATORVASTATIN 20 MG TAB PO SCH (19:58)
[2022-01-06] MEDS: VITAMIN D 1,000 INTERNATIONAL UNITS TABLET PO SCH (19:58)
[2022-01-06] MEDS: OCUVITE 1 TAB PO SCH (19:58)
[2022-01-06] MEDS: ACETAMINOPHEN 500 MG TAB PO SCH (19:58)
[2022-01-06] MEDS: ADVAIR HFA 230/21MCG INHALER INH SCH (20:47)
[2022-01-07] MEDS: carisoprodoL 350 MG TAB PO PRN ×2 (02:00→20:18)
[2022-01-07] MEDS: IBUPROFEN 600MG TAB PO PRN ×3 (02:01→22:50)
[2022-01-07 04:08] VITALS: BP 120/51
[2022-01-07] MEDS ORDERED: NS 1,000 ML IV SCH (06:05)
[2022-01-07 06:13] LABS: HEMATOCRIT 29.5 % (36.0-47.0); HEMOGLOBIN 8.9 g/dl (12.0-15.5); MEAN CORPUSCULAR HEMOGLOBIN 28.4 pg (27.0-33.0); MEAN CORPUSCULAR HGB CONC 30.2 g/dl (32.0-36.5); MEAN CORPUSCULAR VOLUME 94.2 fl (80.0-96.0); PLATELET COUNT, AUTOMATED 253 10^3/uL (150-450); RED BLOOD COUNT 3.13 10^6/uL (4.00-5.40); WHITE BLOOD COUNT 7.3 10^3/uL (4.0-10.0)
[2022-01-07 06:42] LABS: GLOMERULAR FILTRATION RATE 56.1 (>32)
[2022-01-07] MEDS: TIOTROPIUM INHALER/CAPSULE (SPIRIVA) INH SCH (07:39)
[2022-01-07] MEDS: ADVAIR HFA 230/21MCG INHALER INH SCH ×2 (07:39→20:40)
[2022-01-07] MEDS: CARVedilol 12.5 MG TAB PO SCH ×2 (09:00→20:18)
[2022-01-07] MEDS: PANTOPRAZOLE 20 MG TAB PO SCH (09:13)
[2022-01-07] MEDS: TAMSULOSIN 0.4 MG CAP PO SCH (09:13)
[2022-01-07] MEDS: FERROUS SULFATE 325MG TAB PO SCH (09:13)
[2022-01-07] MEDS: CLOPIDOGREL 75 MG TAB PO SCH (09:13)
[2022-01-07] MEDS: DOCUSATE SODIUM 100MG CAPSULE PO SCH (09:13)
[2022-01-07] MEDS: ASPIRIN 81MG ENTERIC TABLET PO SCH (09:13)
[2022-01-07] MEDS: AMOXICILLIN 875 MG TAB PO SCH (09:13)
[2022-01-07] MEDS: BACTRIM 160MG/800MG DS TAB PO SCH ×2 (09:13→20:17)
[2022-01-07] MEDS: LACTOBACILLUS ACIDOPHILUS CAP (BACID) PO SCH ×3 (09:13→18:05)
[2022-01-07] MEDS: ACETAMINOPHEN 500 MG TAB PO SCH ×2 (09:14→20:17)
[2022-01-07] MEDS: POTASSIUM CHLORIDE 10MEQ SR TABLET PO SCH ×2 (09:14→20:18)
[2022-01-07] MEDS: lisinopriL 5 MG TAB PO SCH (09:15)
[2022-01-07] MEDS: oxyCODONE 5MG TAB PO PRN (16:20)
[2022-01-07] MEDS: ATORVASTATIN 20 MG TAB PO SCH (20:17)
[2022-01-07] MEDS: OCUVITE 1 TAB PO SCH (20:18)
[2022-01-07] MEDS: VITAMIN D 1,000 INTERNATIONAL UNITS TABLET PO SCH (20:18)
[2022-01-08 03:44] VITALS: BP 137/65
[2022-01-08] MEDS: TIOTROPIUM INHALER/CAPSULE (SPIRIVA) INH SCH (07:55)
[2022-01-08] MEDS: ADVAIR HFA 230/21MCG INHALER INH SCH ×2 (07:55→20:51)
[2022-01-08] MEDS: ASPIRIN 81MG ENTERIC TABLET PO SCH (11:01)
[2022-01-08] MEDS: DOCUSATE SODIUM 100MG CAPSULE PO SCH (11:01)
[2022-01-08] MEDS: TAMSULOSIN 0.4 MG CAP PO SCH (11:01)
[2022-01-08] MEDS: POTASSIUM CHLORIDE 10MEQ SR TABLET PO SCH ×2 (11:02→20:16)
[2022-01-08] MEDS: FERROUS SULFATE 325MG TAB PO SCH (11:02)
[2022-01-08] MEDS: LACTOBACILLUS ACIDOPHILUS CAP (BACID) PO SCH ×3 (11:02→17:58)
[2022-01-08] MEDS: CLOPIDOGREL 75 MG TAB PO SCH (11:03)
[2022-01-08] MEDS: ACETAMINOPHEN 500 MG TAB PO SCH ×2 (11:03→20:19)
[2022-01-08] MEDS: BACTRIM 160MG/800MG DS TAB PO SCH ×2 (11:04→20:16)
[2022-01-08] MEDS: CARVedilol 12.5 MG TAB PO SCH ×2 (11:05→20:22)
[2022-01-08] MEDS: lisinopriL 5 MG TAB PO SCH (11:05)
[2022-01-08] MEDS: PANTOPRAZOLE 20 MG TAB PO SCH (11:10)
[2022-01-08] MEDS: ATORVASTATIN 20 MG TAB PO SCH (20:16)
[2022-01-08] MEDS: OCUVITE 1 TAB PO SCH (20:20)
[2022-01-08] MEDS: carisoprodoL 350 MG TAB PO PRN (20:20)
[2022-01-08] MEDS: VITAMIN D 1,000 INTERNATIONAL UNITS TABLET PO SCH (20:20)
[2022-01-09] MEDS: oxyCODONE 5MG TAB PO PRN ×2 (01:59→14:17)
[2022-01-09 03:39] VITALS: BP 136/61
[2022-01-09] MEDS: ADVAIR HFA 230/21MCG INHALER INH SCH ×2 (07:53→20:38)
[2022-01-09] MEDS: TIOTROPIUM INHALER/CAPSULE (SPIRIVA) INH SCH (07:54)
[2022-01-09] MEDS: LACTOBACILLUS ACIDOPHILUS CAP (BACID) PO SCH ×3 (08:22→17:00)
[2022-01-09] MEDS: ASPIRIN 81MG ENTERIC TABLET PO SCH (08:23)
[2022-01-09] MEDS: DOCUSATE SODIUM 100MG CAPSULE PO SCH (08:23)
[2022-01-09] MEDS: POTASSIUM CHLORIDE 10MEQ SR TABLET PO SCH ×2 (08:24→20:37)
[2022-01-09] MEDS: CARVedilol 12.5 MG TAB PO SCH ×2 (08:24→20:37)
[2022-01-09] MEDS: lisinopriL 5 MG TAB PO SCH (08:24)
[2022-01-09] MEDS: BACTRIM 160MG/800MG DS TAB PO SCH ×2 (08:25→20:37)
[2022-01-09] MEDS: TAMSULOSIN 0.4 MG CAP PO SCH (08:25)
[2022-01-09] MEDS: CLOPIDOGREL 75 MG TAB PO SCH (08:25)
[2022-01-09] MEDS: FERROUS SULFATE 325MG TAB PO SCH (08:26)
[2022-01-09] MEDS: ACETAMINOPHEN 500 MG TAB PO SCH ×2 (08:26→20:38)
[2022-01-09] MEDS: PANTOPRAZOLE 20 MG TAB PO SCH (08:26)
[2022-01-09 12:00] VITALS: BP 127/56
[2022-01-09 19:19] VITALS: BP 120/55
[2022-01-09] MEDS: OCUVITE 1 TAB PO SCH (20:37)
[2022-01-09] MEDS: VITAMIN D 1,000 INTERNATIONAL UNITS TABLET PO SCH (20:37)
[2022-01-09] MEDS: ATORVASTATIN 20 MG TAB PO SCH (20:37)
[2022-01-10 04:06] VITALS: BP 101/46
[2022-01-10] MEDS: IBUPROFEN 600MG TAB PO PRN ×2 (04:15→16:23)
[2022-01-10] MEDS: TIOTROPIUM INHALER/CAPSULE (SPIRIVA) INH SCH (08:00)
[2022-01-10] MEDS: ADVAIR HFA 230/21MCG INHALER INH SCH ×2 (08:00→20:01)
[2022-01-10] MEDS: CARVedilol 12.5 MG TAB PO SCH ×2 (08:17→20:48)
[2022-01-10] MEDS: POTASSIUM CHLORIDE 10MEQ SR TABLET PO SCH ×2 (08:18→20:46)
[2022-01-10] MEDS: BACTRIM 160MG/800MG DS TAB PO SCH ×2 (08:18→20:46)
[2022-01-10] MEDS: ASPIRIN 81MG ENTERIC TABLET PO SCH (08:18)
[2022-01-10] MEDS: CLOPIDOGREL 75 MG TAB PO SCH (08:18)
[2022-01-10] MEDS: FERROUS SULFATE 325MG TAB PO SCH (08:18)
[2022-01-10] MEDS: DOCUSATE SODIUM 100MG CAPSULE PO SCH (08:18)
[2022-01-10] MEDS: LACTOBACILLUS ACIDOPHILUS CAP (BACID) PO SCH ×3 (08:19→18:19)
[2022-01-10] MEDS: TAMSULOSIN 0.4 MG CAP PO SCH (08:19)
[2022-01-10] MEDS: PANTOPRAZOLE 20 MG TAB PO SCH (08:19)
[2022-01-10] MEDS: lisinopriL 5 MG TAB PO SCH (08:19)
[2022-01-10] MEDS: ACETAMINOPHEN 500 MG TAB PO SCH ×2 (08:20→20:47)
[2022-01-10 08:21] VITALS: BP 114/53
[2022-01-10 12:00] VITALS: BP 109/51
[2022-01-10] MEDS: OCUVITE 1 TAB PO SCH (20:46)
[2022-01-10] MEDS: VITAMIN D 1,000 INTERNATIONAL UNITS TABLET PO SCH (20:46)
[2022-01-10] MEDS: ATORVASTATIN 20 MG TAB PO SCH (20:46)
[2022-01-11] MEDS: IBUPROFEN 600MG TAB PO PRN ×3 (00:26→23:45)
[2022-01-11 06:00] VITALS: BP 142/64
[2022-01-11] MEDS: ADVAIR HFA 230/21MCG INHALER INH SCH ×2 (07:50→20:11)
[2022-01-11] MEDS: TIOTROPIUM INHALER/CAPSULE (SPIRIVA) INH SCH (07:50)
[2022-01-11] MEDS: BACTRIM 160MG/800MG DS TAB PO SCH ×2 (08:45→21:24)
[2022-01-11] MEDS: lisinopriL 5 MG TAB PO SCH (08:45)
[2022-01-11] MEDS: CARVedilol 12.5 MG TAB PO SCH ×2 (08:45→21:00)
[2022-01-11] MEDS: TAMSULOSIN 0.4 MG CAP PO SCH (08:46)
[2022-01-11] MEDS: ASPIRIN 81MG ENTERIC TABLET PO SCH (08:46)
[2022-01-11] MEDS: FERROUS SULFATE 325MG TAB PO SCH (08:46)
[2022-01-11] MEDS: DOCUSATE SODIUM 100MG CAPSULE PO SCH (08:46)
[2022-01-11] MEDS: POTASSIUM CHLORIDE 10MEQ SR TABLET PO SCH ×2 (08:46→21:25)
[2022-01-11] MEDS: CLOPIDOGREL 75 MG TAB PO SCH (08:46)
[2022-01-11] MEDS: LACTOBACILLUS ACIDOPHILUS CAP (BACID) PO SCH ×3 (08:46→18:18)
[2022-01-11] MEDS: PANTOPRAZOLE 20 MG TAB PO SCH (08:46)
[2022-01-11] MEDS: ACETAMINOPHEN 500 MG TAB PO SCH ×2 (08:47→21:24)
[2022-01-11] MEDS: ONDANSETRON 4MG TAB PO PRN (09:59)
[2022-01-11] MEDS: OCUVITE 1 TAB PO SCH (21:24)
[2022-01-11] MEDS: AMOXICILLIN 875 MG TAB PO SCH (21:24)
[2022-01-11] MEDS: ATORVASTATIN 20 MG TAB PO SCH (21:24)
[2022-01-11] MEDS: VITAMIN D 1,000 INTERNATIONAL UNITS TABLET PO SCH (21:31)
[2022-01-12 04:00] VITALS: BP 122/52
[2022-01-12] MEDS: CLOPIDOGREL 75 MG TAB PO SCH (08:54)
[2022-01-12] MEDS: BACTRIM 160MG/800MG DS TAB PO SCH ×2 (08:54→21:05)
[2022-01-12] MEDS: DOCUSATE SODIUM 100MG CAPSULE PO SCH (08:54)
[2022-01-12] MEDS: ACETAMINOPHEN 500 MG TAB PO SCH ×2 (08:54→21:05)
[2022-01-12] MEDS: TAMSULOSIN 0.4 MG CAP PO SCH (08:55)
[2022-01-12] MEDS: ASPIRIN 81MG ENTERIC TABLET PO SCH (08:55)
[2022-01-12] MEDS: POTASSIUM CHLORIDE 10MEQ SR TABLET PO SCH ×2 (08:55→21:05)
[2022-01-12] MEDS: FERROUS SULFATE 325MG TAB PO SCH (08:55)
[2022-01-12] MEDS: LACTOBACILLUS ACIDOPHILUS CAP (BACID) PO SCH ×3 (08:55→18:35)
[2022-01-12] MEDS: AMOXICILLIN 875 MG TAB PO SCH ×2 (08:55→21:04)
[2022-01-12] MEDS: lisinopriL 5 MG TAB PO SCH (08:57)
[2022-01-12] MEDS: CARVedilol 12.5 MG TAB PO SCH ×2 (08:58→21:00)
[2022-01-12] MEDS: PANTOPRAZOLE 20 MG TAB PO SCH (09:00)
[2022-01-12] MEDS: TIOTROPIUM INHALER/CAPSULE (SPIRIVA) INH SCH (09:12)
[2022-01-12] MEDS: ADVAIR HFA 230/21MCG INHALER INH SCH ×2 (09:13→20:00)
[2022-01-12] MEDS ORDERED: AMOX875T2 PO (13:14)
[2022-01-12] MEDS ORDERED: BACTDSTA PO (13:14)
[2022-01-12] MEDS: IBUPROFEN 600MG TAB PO PRN (13:26)
[2022-01-12] MEDS: OCUVITE 1 TAB PO SCH (21:04)
[2022-01-12] MEDS: VITAMIN D 1,000 INTERNATIONAL UNITS TABLET PO SCH (21:05)
[2022-01-12] MEDS: ATORVASTATIN 20 MG TAB PO SCH (21:05)
[2022-01-13] MEDS: IBUPROFEN 600MG TAB PO PRN (01:44)
[2022-01-13 04:02] VITALS: BP 123/60
[2022-01-13] MEDS: TIOTROPIUM INHALER/CAPSULE (SPIRIVA) INH SCH (08:58)
[2022-01-13] MEDS: ADVAIR HFA 230/21MCG INHALER INH SCH (08:58)
[2022-01-13 09:00] VITALS: BP 118/56
[2022-01-13] MEDS: CARVedilol 12.5 MG TAB PO SCH (09:00)
[2022-01-13] MEDS: lisinopriL 5 MG TAB PO SCH (09:00)
[2022-01-13] MEDS: CLOPIDOGREL 75 MG TAB PO SCH (09:34)
[2022-01-13] MEDS: DOCUSATE SODIUM 100MG CAPSULE PO SCH (09:34)
[2022-01-13] MEDS: FERROUS SULFATE 325MG TAB PO SCH (09:38)
[2022-01-13] MEDS: AMOXICILLIN 875 MG TAB PO SCH (09:38)
[2022-01-13] MEDS: LACTOBACILLUS ACIDOPHILUS CAP (BACID) PO SCH (09:38)
[2022-01-13] MEDS: ACETAMINOPHEN 500 MG TAB PO SCH (09:38)
[2022-01-13] MEDS: ASPIRIN 81MG ENTERIC TABLET PO SCH (09:38)
[2022-01-13] MEDS: BACTRIM 160MG/800MG DS TAB PO SCH (09:46)
[2022-01-13] MEDS: PANTOPRAZOLE 20 MG TAB PO SCH (09:46)
[2022-01-13] MEDS: TAMSULOSIN 0.4 MG CAP PO SCH (09:46)
[2022-01-13] MEDS: POTASSIUM CHLORIDE 10MEQ SR TABLET PO SCH (09:47)
== END 2022-01-13 11:55 | DRG 604 ==
LOC: M ED 09:59 → M ED INP 16:10 → M 4MAIN 22:58
PROVIDERS: ADMIT General Practice; ATTEND Internal Medicine
DX: S00.83XA Contusion of other part of head, initial encounter (principal); U07.1 COVID-19; G93.41 Metabolic encephalopathy; T82.7XXA Infection and inflammatory reaction due to other cardiac and vascular devices, implants and grafts, initial encounter; J96.11 Chronic respiratory failure with hypoxia; L02.219 Cutaneous abscess of trunk, unspecified; S10.93XA Contusion of unspecified part of neck, initial encounter; S40.022A Contusion of left upper arm, initial encounter; I25.10 Atherosclerotic heart disease of native coronary artery without angina pectoris; Z79.82 Long term (current) use of aspirin; Z79.01 Long term (current) use of anticoagulants; E86.0 Dehydration; J44.9 Chronic obstructive pulmonary disease, unspecified; Z99.81 Dependence on supplemental oxygen; I73.9 Peripheral vascular disease, unspecified; K21.9 Gastro-esophageal reflux disease without esophagitis; Z89.612 Acquired absence of left leg above knee; Z95.5 Presence of coronary angioplasty implant and graft; Z98.41 Cataract extraction status, right eye; Z98.42 Cataract extraction status, left eye; H35.30 Unspecified macular degeneration; Z87.891 Personal history of nicotine dependence; Z79.899 Other long term (current) drug therapy; R00.0 Tachycardia, unspecified; F03.90 Unspecified dementia, unspecified severity, without behavioral disturbance, psychotic disturbance, mood disturbance, and anxiety; W06.XXXA Fall from bed, initial encounter; Y92.122 Bedroom in nursing home as the place of occurrence of the external cause; Z79.2 Long term (current) use of antibiotics; Z95.828 Presence of other vascular implants and grafts; H54.8 Legal blindness, as defined in USA; Z66 Do not resuscitate; I95.9 Hypotension, unspecified; Z88.1 Allergy status to other antibiotic agents

== ENCOUNTER → 2022-01-03 | Outpatient (REF) | payer MEDICARE ==
[~2022-01-03] MED LIST changes: +AMOX875T PO; +MUCI600T31 PO
== END ==
PROVIDERS: ATTEND Physician Assistant
DX: T82.7XXD Infection and inflammatory reaction due to other cardiac and vascular devices, implants and grafts, subsequent encounter (principal); Z53.9 Procedure and treatment not carried out, unspecified reason

== ENCOUNTER → 2022-01-05 | Outpatient (REF) | payer MEDICARE | PROVIDERS: ATTEND Physician Assistant | DX: T82.7XXD Infection and inflammatory reaction due to other cardiac and vascular devices, implants and grafts, subsequent encounter (principal); Z53.9 Procedure and treatment not carried out, unspecified reason ==

== ENCOUNTER → 2022-01-10 | Outpatient (REF) | payer MEDICARE | PROVIDERS: ATTEND Physician Assistant | DX: T82.7XXD Infection and inflammatory reaction due to other cardiac and vascular devices, implants and grafts, subsequent encounter (principal); Z53.9 Procedure and treatment not carried out, unspecified reason ==

== ENCOUNTER → 2022-01-12 | Outpatient (REF) | payer MEDICARE | PROVIDERS: ATTEND Physician Assistant | DX: T82.7XXD Infection and inflammatory reaction due to other cardiac and vascular devices, implants and grafts, subsequent encounter (principal); Z53.9 Procedure and treatment not carried out, unspecified reason ==

== ENCOUNTER → 2022-01-17 | Outpatient (REF) | payer MEDICARE ==
[2022-01-17 10:40] LABS: HEMATOCRIT 33.1 % (36.0-47.0); HEMOGLOBIN 9.9 g/dl (12.0-15.5); MEAN CORPUSCULAR HEMOGLOBIN 28.9 pg (27.0-33.0); MEAN CORPUSCULAR HGB CONC 29.9 g/dl (32.0-36.5); MEAN CORPUSCULAR VOLUME 96.5 fl (80.0-96.0); PLATELET COUNT, AUTOMATED 295 10^3/uL (150-450); RED BLOOD COUNT 3.43 10^6/uL (4.00-5.40); WHITE BLOOD COUNT 7.8 10^3/uL (4.0-10.0)
[2022-01-17 11:05] LABS: ERYTHROCYTE SEDIMENTATION RATE 27 mm/hr (0-30)
[2022-01-17 11:11] LABS: BLOOD UREA NITROGEN 14 MG/DL (7-18); CALCIUM LEVEL 8.3 MG/DL (8.8-10.2); CARBON DIOXIDE LEVEL 22 MEQ/L (21-32); CHLORIDE LEVEL 111 MEQ/L (98-107); CREATININE FOR GFR 0.66 MG/DL (0.55-1.30); GLOMERULAR FILTRATION RATE > 60.0 (>32); GLUCOSE, FASTING 145 MG/DL (70-100); POTASSIUM SERUM 3.7 MEQ/L (3.5-5.1); SODIUM LEVEL 142 MEQ/L (136-145)
== END ==
PROVIDERS: ATTEND Physician Assistant
DX: T82.7XXD Infection and inflammatory reaction due to other cardiac and vascular devices, implants and grafts, subsequent encounter (principal)

== ENCOUNTER → 2022-01-19 | Outpatient (CLI) | payer MEDICARE | LOC: M SOG 08:04 | PROVIDERS: ATTEND Orthopaedic Surgery Adult Reconstructive Orthopaedic Surgery | DX: M25.561 Pain in right knee (principal) ==

== ENCOUNTER → 2022-01-19 | Outpatient (REF) | payer MEDICARE | PROVIDERS: ATTEND Physician Assistant | DX: T82.7XXD Infection and inflammatory reaction due to other cardiac and vascular devices, implants and grafts, subsequent encounter (principal); Z53.9 Procedure and treatment not carried out, unspecified reason ==

== ENCOUNTER → 2022-01-24 | Outpatient (REF) | payer MEDICARE ==
[2022-01-24 11:25] LABS: BASO # 0.1 10^3/uL (0.0-0.2); BASO % 0.8 % (0.0-1.0); EOS # 0.4 10^3/uL (0.0-0.5); HEMATOCRIT 32.2 % (36.0-47.0); HEMOGLOBIN 9.7 g/dl (12.0-15.5); LYMPH # 1.4 10^3/uL (1.5-5.0); LYMPH % 21.7 % (24.0-44.0); MEAN CORPUSCULAR HEMOGLOBIN 28.5 pg (27.0-33.0); MEAN CORPUSCULAR HGB CONC 30.1 g/dl (32.0-36.5); MEAN CORPUSCULAR VOLUME 94.7 fl (80.0-96.0); MONO # 0.5 10^3/uL (0.0-0.8); MONO % 7.8 % (2.0-8.0); NEUTROPHILS % 62.4 % (36.0-66.0); PLATELET COUNT, AUTOMATED 209 10^3/uL (150-450); WHITE BLOOD COUNT 6.3 10^3/uL (4.0-10.0)
[2022-01-24 11:48] LABS: ERYTHROCYTE SEDIMENTATION RATE 23 mm/hr (0-30)
[2022-01-24 11:53] LABS: ALBUMIN 2.7 GM/DL (3.2-5.2); ALT/SGPT < 6 U/L (12-78); BILIRUBIN,TOTAL 0.4 MG/DL (0.2-1.0); BLOOD UREA NITROGEN 11 MG/DL (7-18); CALCIUM LEVEL 8.4 MG/DL (8.8-10.2); CARBON DIOXIDE LEVEL 26 MEQ/L (21-32); CHLORIDE LEVEL 108 MEQ/L (98-107); CREATININE FOR GFR 0.46 MG/DL (0.55-1.30); GLOMERULAR FILTRATION RATE > 60.0 (>32); GLUCOSE, FASTING 119 MG/DL (70-100); POTASSIUM SERUM 3.8 MEQ/L (3.5-5.1); SODIUM LEVEL 144 MEQ/L (136-145); TOTAL PROTEIN 5.5 GM/DL (6.4-8.2)
== END ==
PROVIDERS: ATTEND Internal Medicine
DX: T87.44 Infection of amputation stump, left lower extremity (principal)

== ENCOUNTER → 2022-01-24 | Outpatient (REF) | payer MEDICARE | PROVIDERS: ATTEND Physician Assistant | DX: R05.9 Cough, unspecified (principal) ==

== ENCOUNTER → 2022-01-31 | Outpatient (REF) | payer MEDICARE ==
[2022-01-31 09:53] LABS: HEMATOCRIT 33.3 % (36.0-47.0); MEAN CORPUSCULAR HEMOGLOBIN 29.1 pg (27.0-33.0); MEAN CORPUSCULAR VOLUME 96.8 fl (80.0-96.0); PLATELET COUNT, AUTOMATED 220 10^3/uL (150-450); RED BLOOD COUNT 3.44 10^6/uL (4.00-5.40); WHITE BLOOD COUNT 7.7 10^3/uL (4.0-10.0)
[2022-01-31 10:15] LABS: ERYTHROCYTE SEDIMENTATION RATE 30 mm/hr (0-30)
[2022-01-31 10:19] LABS: BLOOD UREA NITROGEN 10 MG/DL (7-18); CALCIUM LEVEL 9.1 MG/DL (8.8-10.2); CARBON DIOXIDE LEVEL 30 MEQ/L (21-32); CHLORIDE LEVEL 106 MEQ/L (98-107); CREATININE FOR GFR 0.53 MG/DL (0.55-1.30); GLOMERULAR FILTRATION RATE > 60.0 (>32); GLUCOSE, FASTING 116 MG/DL (70-100); POTASSIUM SERUM 3.3 MEQ/L (3.5-5.1); SODIUM LEVEL 141 MEQ/L (136-145)
== END ==
PROVIDERS: ATTEND Internal Medicine
DX: T87.44 Infection of amputation stump, left lower extremity (principal)

== ENCOUNTER → 2022-02-17 | Outpatient (CLI) | payer MEDICARE | LOC: M SOG 09:59 | PROVIDERS: ATTEND Orthopaedic Surgery Adult Reconstructive Orthopaedic Surgery | DX: S82.124A Nondisplaced fracture of lateral condyle of right tibia, initial encounter for closed fracture (principal); X58.XXXA Exposure to other specified factors, initial encounter; Y92.89 Other specified places as the place of occurrence of the external cause ==

== ENCOUNTER → 2022-03-03 | Outpatient (REF) | payer MEDICARE ==
[2022-03-03 13:58] LABS: HEMATOCRIT 32.1 % (36.0-47.0); MEAN CORPUSCULAR HEMOGLOBIN 29.3 pg (27.0-33.0); MEAN CORPUSCULAR HGB CONC 31.2 g/dl (32.0-36.5); MEAN CORPUSCULAR VOLUME 94.1 fl (80.0-96.0); PLATELET COUNT, AUTOMATED 221 10^3/uL (150-450); RED BLOOD COUNT 3.41 10^6/uL (4.00-5.40); WHITE BLOOD COUNT 7.4 10^3/uL (4.0-10.0)
[2022-03-03 14:24] LABS: ERYTHROCYTE SEDIMENTATION RATE 41 mm/hr (0-30)
[2022-03-03 14:34] LABS: BLOOD UREA NITROGEN 15 MG/DL (7-18); CARBON DIOXIDE LEVEL 30 MEQ/L (21-32); CHLORIDE LEVEL 108 MEQ/L (98-107); CREATININE FOR GFR 0.65 MG/DL (0.55-1.30); GLOMERULAR FILTRATION RATE > 60.0 (>32); GLUCOSE, FASTING 113 MG/DL (70-100); SODIUM LEVEL 143 MEQ/L (136-145)
== END ==
PROVIDERS: ATTEND Physician Assistant
DX: S31.109A Unspecified open wound of abdominal wall, unspecified quadrant without penetration into peritoneal cavity, initial encounter (principal); X58.XXXA Exposure to other specified factors, initial encounter; Y92.9 Unspecified place or not applicable; Y93.9 Activity, unspecified; Y99.9 Unspecified external cause status

== ENCOUNTER → 2022-03-16 | Outpatient (REF) | payer MEDICARE ==
[~2022-03-16] MED LIST changes: +ASPI81TA26 PO; +ENSU1LIQ36 PO; +LEVO1TAB39 PO; -LEVO500T4 PO; +NEUR100C PO; +NYST-13 TOP; -NYST10CR TOP
[2022-03-16 10:41] LABS: HEMATOCRIT 33.7 % (36.0-47.0); HEMOGLOBIN 10.5 g/dl (12.0-15.5); MEAN CORPUSCULAR HGB CONC 31.2 g/dl (32.0-36.5); MEAN CORPUSCULAR VOLUME 93.1 fl (80.0-96.0); PLATELET COUNT, AUTOMATED 214 10^3/uL (150-450); RED BLOOD COUNT 3.62 10^6/uL (4.00-5.40)
[2022-03-16 11:07] LABS: ERYTHROCYTE SEDIMENTATION RATE 35 mm/hr (0-30)
== END ==
PROVIDERS: ATTEND Internal Medicine
DX: N18.9 Chronic kidney disease, unspecified (principal)

== ENCOUNTER 2022-03-20 13:25 | Emergency (ER) | payer MEDICARE ==
[~2022-03-20] VITALS: Ht 162.6 cm; Wt 45.5 kg
[~2022-03-20 13:25] MED LIST changes: -ASPI81TA26 PO; -ENSU1LIQ36 PO; -NEUR100C PO
[2022-03-20] MEDS ORDERED: GABAPENTIN 100 MG CAP PO ONE (13:50)
[2022-03-20] MEDS ORDERED: ASPI81TA26 PO (14:39)
[2022-03-20] MEDS ORDERED: ENSU1LIQ36 PO (14:39)
[2022-03-20] MEDS ORDERED: AMOX875T2 PO (14:39)
[2022-03-20] MEDS ORDERED: BACITAB PO (14:39)
[2022-03-20] MEDS ORDERED: CARV3.12 PO (14:39)
[2022-03-20] MEDS ORDERED: HOME MED LIST COMPLETE! XX SCH (14:40)
[2022-03-20] MEDS ORDERED: NEUR100C PO (16:18)
[2022-03-20 16:42] VITALS: BP 155/70
== END 2022-03-20 17:10 | disposition home or self-care (01) ==
LOC: M ED 13:25
DX: M79.661 Pain in right lower leg (principal); I10 Essential (primary) hypertension; J44.9 Chronic obstructive pulmonary disease, unspecified; E78.5 Hyperlipidemia, unspecified; I25.10 Atherosclerotic heart disease of native coronary artery without angina pectoris; I25.2 Old myocardial infarction; H35.30 Unspecified macular degeneration; Z86.73 Personal history of transient ischemic attack (TIA), and cerebral infarction without residual deficits; Z88.1 Allergy status to other antibiotic agents; Z79.899 Other long term (current) drug therapy; Z79.82 Long term (current) use of aspirin; Z79.01 Long term (current) use of anticoagulants; Z87.891 Personal history of nicotine dependence

== ENCOUNTER → 2022-04-13 | Outpatient (REF) | payer MEDICARE ==
[~2022-04-13] MED LIST changes: +ASPI81TA26 PO; +ENSU1LIQ36 PO; +NEUR100C PO
[2022-04-13 12:01] LABS: HEMATOCRIT 36.7 % (36.0-47.0); HEMOGLOBIN 10.9 g/dl (12.0-15.5); MEAN CORPUSCULAR HEMOGLOBIN 28.2 pg (27.0-33.0); MEAN CORPUSCULAR HGB CONC 29.7 g/dl (32.0-36.5); MEAN CORPUSCULAR VOLUME 95.1 fl (80.0-96.0); PLATELET COUNT, AUTOMATED 206 10^3/uL (150-450); RED BLOOD COUNT 3.86 10^6/uL (4.00-5.40); WHITE BLOOD COUNT 9.4 10^3/uL (4.0-10.0)
[2022-04-13 12:31] LABS: ERYTHROCYTE SEDIMENTATION RATE 43 mm/hr (0-30)
== END ==
PROVIDERS: ATTEND Physician Assistant
DX: N18.9 Chronic kidney disease, unspecified (principal)

== ENCOUNTER → 2022-04-20 | Outpatient (CLI) | payer MEDICARE | LOC: M RAD 15:06 | PROVIDERS: ATTEND Physician Assistant | DX: M79.661 Pain in right lower leg (principal) ==

== ENCOUNTER → 2022-05-18 | Outpatient (REF) | payer MEDICARE, MEDICAID | PROVIDERS: ATTEND Internal Medicine | DX: Z53.8 Procedure and treatment not carried out for other reasons (principal) ==

== ENCOUNTER → 2022-06-02 | Outpatient (REF) | payer MEDICARE, MEDICAID ==
[2022-06-02 18:15] LABS: HEMATOCRIT 31.1 % (36.0-47.0); HEMOGLOBIN 9.7 g/dl (12.0-15.5); MEAN CORPUSCULAR HEMOGLOBIN 29.7 pg (27.0-33.0); MEAN CORPUSCULAR HGB CONC 31.2 g/dl (32.0-36.5); MEAN CORPUSCULAR VOLUME 95.1 fl (80.0-96.0); PLATELET COUNT, AUTOMATED 263 10^3/uL (150-450); RED BLOOD COUNT 3.27 10^6/uL (4.00-5.40); WHITE BLOOD COUNT 10.2 10^3/uL (4.0-10.0)
[2022-06-02 18:53] LABS: ERYTHROCYTE SEDIMENTATION RATE 77 mm/hr (0-30)
[2022-06-02 18:57] LABS: BLOOD UREA NITROGEN 13 MG/DL (7-18); C REACTIVE PROTEIN QUANTITATIV 6.74 MG/DL (0.00-0.30); CALCIUM LEVEL 8.4 MG/DL (8.8-10.2); CARBON DIOXIDE LEVEL 26 MEQ/L (21-32); CHLORIDE LEVEL 105 MEQ/L (98-107); CREATININE FOR GFR 0.64 MG/DL (0.55-1.30); GLOMERULAR FILTRATION RATE > 60.0 (>32); GLUCOSE, FASTING 171 MG/DL (70-100); POTASSIUM SERUM 3.3 MEQ/L (3.5-5.1); SODIUM LEVEL 141 MEQ/L (136-145)
== END ==
PROVIDERS: ATTEND Physician Assistant
DX: T82.7XXD Infection and inflammatory reaction due to other cardiac and vascular devices, implants and grafts, subsequent encounter (principal)

== ENCOUNTER → 2022-06-03 | Outpatient (REF) | payer MEDICARE, MEDICAID ==
[2022-06-03 10:59] LABS: HEMATOCRIT 31.8 % (36.0-47.0); HEMOGLOBIN 9.8 g/dl (12.0-15.5); MEAN CORPUSCULAR HEMOGLOBIN 29.5 pg (27.0-33.0); MEAN CORPUSCULAR HGB CONC 30.8 g/dl (32.0-36.5); MEAN CORPUSCULAR VOLUME 95.8 fl (80.0-96.0); PLATELET COUNT, AUTOMATED 251 10^3/uL (150-450); RED BLOOD COUNT 3.32 10^6/uL (4.00-5.40); WHITE BLOOD COUNT 7.7 10^3/uL (4.0-10.0)
[2022-06-03 11:28] LABS: BLOOD UREA NITROGEN 12 MG/DL (7-18); C REACTIVE PROTEIN QUANTITATIV 6.75 MG/DL (0.00-0.30); CALCIUM LEVEL 8.4 MG/DL (8.8-10.2); CARBON DIOXIDE LEVEL 29 MEQ/L (21-32); CHLORIDE LEVEL 106 MEQ/L (98-107); CREATININE FOR GFR 0.55 MG/DL (0.55-1.30); GLOMERULAR FILTRATION RATE > 60.0 (>32); GLUCOSE, FASTING 136 MG/DL (70-100); POTASSIUM SERUM 3.5 MEQ/L (3.5-5.1); SODIUM LEVEL 142 MEQ/L (136-145)
[2022-06-03 11:51] LABS: ERYTHROCYTE SEDIMENTATION RATE 92 mm/hr (0-30)
== END ==
PROVIDERS: ATTEND Physician Assistant
DX: T82.7XXD Infection and inflammatory reaction due to other cardiac and vascular devices, implants and grafts, subsequent encounter (principal)

== ENCOUNTER → 2022-06-22 | Outpatient (REF) | payer MEDICARE, MEDICAID ==
[~2022-06-22] MED LIST changes: +CLOP75TA99 PO; -PLAV1TAB2 PO
== END ==
PROVIDERS: ATTEND Physician Assistant
DX: R05.9 Cough, unspecified (principal)

== ENCOUNTER → 2022-06-22 | Outpatient (REF) | payer MEDICARE, MEDICAID ==
[2022-06-22 10:29] LABS: HEMATOCRIT 33.9 % (36.0-47.0); HEMOGLOBIN 10.2 g/dl (12.0-15.5); MEAN CORPUSCULAR HEMOGLOBIN 28.4 pg (27.0-33.0); MEAN CORPUSCULAR HGB CONC 30.1 g/dl (32.0-36.5); MEAN CORPUSCULAR VOLUME 94.4 fl (80.0-96.0); PLATELET COUNT, AUTOMATED 250 10^3/uL (150-450); RED BLOOD COUNT 3.59 10^6/uL (4.00-5.40); WHITE BLOOD COUNT 6.5 10^3/uL (4.0-10.0)
[2022-06-22 11:37] LABS: ERYTHROCYTE SEDIMENTATION RATE 35 mm/hr (0-30)
== END ==
PROVIDERS: ATTEND Physician Assistant
DX: N18.9 Chronic kidney disease, unspecified (principal)

== ENCOUNTER → 2022-06-23 | Outpatient (REF) | payer MEDICARE, MEDICAID | PROVIDERS: ATTEND Internal Medicine | DX: R05.9 Cough, unspecified (principal) ==

== ENCOUNTER → 2022-06-28 | Outpatient (POV) | payer MEDICARE, MEDICAID ==
[~2022-06-28] VITALS: Ht 162.6 cm; Wt 48.6 kg
[2022-06-28 15:30] VITALS: BP 130/62
== END ==
LOC: M IRPOV 15:19
PROVIDERS: ATTEND Radiology Diagnostic Radiology
DX: T81.89XA Other complications of procedures, not elsewhere classified, initial encounter (principal); I70.221 Atherosclerosis of native arteries of extremities with rest pain, right leg; E78.5 Hyperlipidemia, unspecified; I10 Essential (primary) hypertension; I25.2 Old myocardial infarction; I65.29 Occlusion and stenosis of unspecified carotid artery; J44.9 Chronic obstructive pulmonary disease, unspecified; X58.XXXA Exposure to other specified factors, initial encounter; Z79.82 Long term (current) use of aspirin; Z79.899 Other long term (current) drug therapy; Z86.73 Personal history of transient ischemic attack (TIA), and cerebral infarction without residual deficits; Z87.891 Personal history of nicotine dependence; Z89.612 Acquired absence of left leg above knee; Z95.5 Presence of coronary angioplasty implant and graft

== ENCOUNTER → 2022-07-13 | Outpatient (CLI) | payer MEDICARE, MEDICAID ==
[~2022-07-13] MED LIST changes: +ISOVUE-370 76% 100ML VIAL As Ordered ONE
== END ==
LOC: M RAD 12:51
PROVIDERS: ATTEND Radiology Diagnostic Radiology
DX: I73.9 Peripheral vascular disease, unspecified (principal); Z95.5 Presence of coronary angioplasty implant and graft
CPT/HCPCS: 75635; Q9967

== ENCOUNTER → 2022-07-13 | Outpatient (REF) | payer MEDICARE, MEDICAID ==
[~2022-07-13] MED LIST changes: -ISOVUE-370 76% 100ML VIAL As Ordered ONE
[2022-07-13 12:23] LABS: HEMATOCRIT 33.9 % (36.0-47.0); HEMOGLOBIN 10.2 g/dl (12.0-15.5); MEAN CORPUSCULAR HEMOGLOBIN 28.3 pg (27.0-33.0); MEAN CORPUSCULAR HGB CONC 30.1 g/dl (32.0-36.5); MEAN CORPUSCULAR VOLUME 94.2 fl (80.0-96.0); PLATELET COUNT, AUTOMATED 215 10^3/uL (150-450); WHITE BLOOD COUNT 8.8 10^3/uL (4.0-10.0)
[2022-07-13 17:16] LABS: ERYTHROCYTE SEDIMENTATION RATE 40 mm/hr (0-30)
== END ==
PROVIDERS: ATTEND Physician Assistant
DX: N18.9 Chronic kidney disease, unspecified (principal)

== ENCOUNTER → 2022-07-19 | Outpatient (POV) | payer MEDICARE, MEDICAID ==
[~2022-07-19] VITALS: Ht 162.6 cm; Wt 50.0 kg
[2022-07-19 13:30] VITALS: BP 121/58
== END ==
LOC: M IRPOV 13:15
PROVIDERS: ATTEND Radiology Diagnostic Radiology
DX: S31.104A Unspecified open wound of abdominal wall, left lower quadrant without penetration into peritoneal cavity, initial encounter (principal); I70.92 Chronic total occlusion of artery of the extremities; Z95.828 Presence of other vascular implants and grafts; Z88.1 Allergy status to other antibiotic agents

== ENCOUNTER → 2022-08-15 | Outpatient (REF) | payer MEDICARE, MEDICAID ==
[2022-08-15 11:37] LABS: HEMATOCRIT 34.8 % (36.0-47.0); HEMOGLOBIN 10.8 g/dl (12.0-15.5); MEAN CORPUSCULAR HEMOGLOBIN 28.3 pg (27.0-33.0); MEAN CORPUSCULAR VOLUME 91.1 fl (80.0-96.0); PLATELET COUNT, AUTOMATED 214 10^3/uL (150-450); RED BLOOD COUNT 3.82 10^6/uL (4.00-5.40); WHITE BLOOD COUNT 6.5 10^3/uL (4.0-10.0)
[2022-08-15 12:23] LABS: ERYTHROCYTE SEDIMENTATION RATE 37 mm/hr (0-30)
== END ==
PROVIDERS: ATTEND Physician Assistant
DX: N18.9 Chronic kidney disease, unspecified (principal)

== ENCOUNTER → 2022-08-29 | Outpatient (CLI) | payer MEDICARE, MEDICAID | LOC: M SOG 10:22 | PROVIDERS: ATTEND Physician Assistant | DX: M79.642 Pain in left hand (principal); Z53.8 Procedure and treatment not carried out for other reasons ==

== ENCOUNTER → 2022-09-02 | Outpatient (CLI) | payer MEDICARE, MEDICAID | LOC: M SOG 09:12 | PROVIDERS: ATTEND Physician Assistant | DX: M15.2 Bouchard's nodes (with arthropathy) (principal); M15.1 Heberden's nodes (with arthropathy) ==

== ENCOUNTER → 2022-09-11 | Outpatient (REF) | payer MEDICARE, MEDICAID ==
[~2022-09-11] MED LIST changes: +BACI1CAP PO; +MAPA500C PO
== END ==
PROVIDERS: ATTEND Physician Assistant
DX: Z01.818 Encounter for other preprocedural examination (principal); Z20.822 Contact with and (suspected) exposure to COVID-19

== ENCOUNTER → 2022-09-11 | Outpatient (CLI) | payer MEDICARE, MEDICAID | LOC: M LAB 13:34 | PROVIDERS: ATTEND Internal Medicine | DX: Z01.812 Encounter for preprocedural laboratory examination (principal); Z20.822 Contact with and (suspected) exposure to COVID-19; Z53.9 Procedure and treatment not carried out, unspecified reason ==

== ENCOUNTER → 2022-09-14 | Outpatient (REF) | payer MEDICARE, MEDICAID ==
[2022-09-14 11:23] LABS: HEMATOCRIT 37.2 % (36.0-47.0); HEMOGLOBIN 11.2 g/dl (12.0-15.5); MEAN CORPUSCULAR HEMOGLOBIN 28.1 pg (27.0-33.0); MEAN CORPUSCULAR HGB CONC 30.1 g/dl (32.0-36.5); MEAN CORPUSCULAR VOLUME 93.2 fl (80.0-96.0); PLATELET COUNT, AUTOMATED 194 10^3/uL (150-450); RED BLOOD COUNT 3.99 10^6/uL (4.00-5.40); WHITE BLOOD COUNT 7.2 10^3/uL (4.0-10.0)
[2022-09-14 11:53] LABS: ERYTHROCYTE SEDIMENTATION RATE 36 mm/hr (0-30)
== END ==
PROVIDERS: ATTEND Physician Assistant
DX: N18.9 Chronic kidney disease, unspecified (principal)

== ENCOUNTER 2022-09-16 08:25 | Day surgery (SDC) | payer MEDICARE, MEDICAID ==
[~2022-09-16] VITALS: Ht 162.6 cm; Wt 53.1 kg
[~2022-09-16 08:25] MED LIST changes: +LIDOCAINE W/EPINEPHRINE 1% 20ML VIAL XX ONE; +SODIUM BICARBONATE 8.4% INJ 50MEQ 50ML VIAL XX ONE
[2022-09-16] MEDS ORDERED: BACITRACIN OINTMENT 30GM TUBE As Ordered ONE (09:14)
[2022-09-16 09:50] VITALS: BP 166/73
== END 2022-09-16 10:50 | disposition home or self-care (01) ==
LOC: M SDC 08:25
PROVIDERS: ATTEND Orthopaedic Surgery Hand Surgery
DX: M65.332 Trigger finger, left middle finger (principal); M65.342 Trigger finger, left ring finger; I10 Essential (primary) hypertension; E78.00 Pure hypercholesterolemia, unspecified; J44.9 Chronic obstructive pulmonary disease, unspecified; Z95.5 Presence of coronary angioplasty implant and graft; Z87.891 Personal history of nicotine dependence; Z79.899 Other long term (current) drug therapy; Z79.02 Long term (current) use of antithrombotics/antiplatelets; Z79.51 Long term (current) use of inhaled steroids; Z79.82 Long term (current) use of aspirin; Z79.890 Hormone replacement therapy; Z88.0 Allergy status to penicillin; Z88.1 Allergy status to other antibiotic agents; Z88.8 Allergy status to other drugs, medicaments and biological substances

== ENCOUNTER → 2022-10-19 | Outpatient (REF) | payer MEDICARE, MEDICAID ==
[~2022-10-19] MED LIST changes: -LIDOCAINE W/EPINEPHRINE 1% 20ML VIAL XX ONE; -SODIUM BICARBONATE 8.4% INJ 50MEQ 50ML VIAL XX ONE
[2022-10-19 11:48] LABS: HEMATOCRIT 41.2 % (36.0-47.0); HEMOGLOBIN 12.8 g/dl (12.0-15.5); MEAN CORPUSCULAR HEMOGLOBIN 29.4 pg (27.0-33.0); MEAN CORPUSCULAR HGB CONC 31.1 g/dl (32.0-36.5); MEAN CORPUSCULAR VOLUME 94.5 fl (80.0-96.0); PLATELET COUNT, AUTOMATED 214 10^3/uL (150-450); RED BLOOD COUNT 4.36 10^6/uL (4.00-5.40); WHITE BLOOD COUNT 7.1 10^3/uL (4.0-10.0)
[2022-10-19 12:07] LABS: ERYTHROCYTE SEDIMENTATION RATE 69 mm/hr (0-30)
== END ==
PROVIDERS: ATTEND Physician Assistant
DX: N18.9 Chronic kidney disease, unspecified (principal)

== ENCOUNTER → 2022-10-26 | Outpatient (REF) | payer MEDICARE, MEDICAID | PROVIDERS: ATTEND Physician Assistant | DX: Z01.818 Encounter for other preprocedural examination (principal); Z20.822 Contact with and (suspected) exposure to COVID-19 ==

== ENCOUNTER 2022-10-31 08:21 | Day surgery (SDC) | payer MEDICARE, MEDICAID ==
[~2022-10-31] VITALS: Ht 157.5 cm; Wt 54.4 kg
[~2022-10-31 08:21] MED LIST changes: +LIDOCAINE W/EPINEPHRINE 1% 20ML VIAL XX ONE; +SODIUM BICARBONATE 8.4% INJ 50MEQ 50ML VIAL XX ONE
[2022-10-31] MEDS ORDERED: BACITRACIN OINTMENT 30GM TUBE As Ordered ONE (11:05)
[2022-10-31 11:32] VITALS: BP 139/68
== END 2022-10-31 12:51 | disposition home or self-care (01) ==
LOC: M SDC 08:21
PROVIDERS: ATTEND Orthopaedic Surgery Hand Surgery
DX: M65.331 Trigger finger, right middle finger (principal); R94.31 Abnormal electrocardiogram [ECG] [EKG]; Z95.5 Presence of coronary angioplasty implant and graft; I25.10 Atherosclerotic heart disease of native coronary artery without angina pectoris; I11.0 Hypertensive heart disease with heart failure; I25.2 Old myocardial infarction; E78.00 Pure hypercholesterolemia, unspecified; K21.9 Gastro-esophageal reflux disease without esophagitis; M19.90 Unspecified osteoarthritis, unspecified site; H35.30 Unspecified macular degeneration; H54.8 Legal blindness, as defined in USA; Z86.73 Personal history of transient ischemic attack (TIA), and cerebral infarction without residual deficits; J44.9 Chronic obstructive pulmonary disease, unspecified; Z79.899 Other long term (current) drug therapy; Z79.02 Long term (current) use of antithrombotics/antiplatelets; Z79.82 Long term (current) use of aspirin; Z88.1 Allergy status to other antibiotic agents; Z88.8 Allergy status to other drugs, medicaments and biological substances

== ENCOUNTER → 2022-11-16 | Outpatient (REF) | payer MEDICARE, MEDICAID ==
[~2022-11-16] MED LIST changes: -LIDOCAINE W/EPINEPHRINE 1% 20ML VIAL XX ONE; -SODIUM BICARBONATE 8.4% INJ 50MEQ 50ML VIAL XX ONE
[2022-11-16 09:35] LABS: HEMATOCRIT 35.8 % (36.0-47.0); HEMOGLOBIN 11.4 g/dl (12.0-15.5); MEAN CORPUSCULAR HEMOGLOBIN 30.9 pg (27.0-33.0); MEAN CORPUSCULAR HGB CONC 31.8 g/dl (32.0-36.5); PLATELET COUNT, AUTOMATED 178 10^3/uL (150-450); RED BLOOD COUNT 3.69 10^6/uL (4.00-5.40); WHITE BLOOD COUNT 6.2 10^3/uL (4.0-10.0)
[2022-11-16 09:51] LABS: ERYTHROCYTE SEDIMENTATION RATE 32 mm/hr (0-30)
== END ==
PROVIDERS: ATTEND Physician Assistant
DX: T82.7XXD Infection and inflammatory reaction due to other cardiac and vascular devices, implants and grafts, subsequent encounter (principal)

== ENCOUNTER → 2022-11-17 | Outpatient (REF) | payer MEDICARE, MEDICAID | PROVIDERS: ATTEND Physician Assistant | DX: N18.9 Chronic kidney disease, unspecified (principal); Z53.8 Procedure and treatment not carried out for other reasons ==

== ENCOUNTER → 2022-11-22 | Outpatient (REF) | payer MEDICARE, MEDICAID | PROVIDERS: ATTEND Physician Assistant | DX: R05.9 Cough, unspecified (principal) ==

== ENCOUNTER → 2022-12-06 | Outpatient (REF) | payer MEDICARE, MEDICAID ==
[2022-12-06 13:46] LABS: BASO # 0.1 10^3/uL (0.0-0.2); BASO % 1.2 % (0.0-1.0); EOS # 0.5 10^3/uL (0.0-0.5); EOS % 7.3 % (0.0-3.0); HEMATOCRIT 36.9 % (36.0-47.0); HEMOGLOBIN 11.7 g/dl (12.0-15.5); LYMPH # 1.4 10^3/uL (1.5-5.0); MEAN CORPUSCULAR HGB CONC 31.7 g/dl (32.0-36.5); MEAN CORPUSCULAR VOLUME 97.6 fl (80.0-96.0); MONO # 0.7 10^3/uL (0.0-0.8); MONO % 10.1 % (2.0-8.0); NEUTROPHILS # 4.2 10^3/uL (1.5-8.5); NEUTROPHILS % 61.1 % (36.0-66.0); PLATELET COUNT, AUTOMATED 182 10^3/uL (150-450); RED BLOOD COUNT 3.78 10^6/uL (4.00-5.40); WHITE BLOOD COUNT 6.9 10^3/uL (4.0-10.0)
[2022-12-06 13:55] LABS: ALBUMIN 3.3 G/DL (3.2-5.2); ALKALINE PHOSPHATASE 74 U/L (46-116); ALT/SGPT 15 U/L (7.0-40); AST/SGOT 22 U/L (<34); BILIRUBIN,TOTAL 0.6 MG/DL (0.3-1.2); BLOOD UREA NITROGEN 14 MG/DL (9-23); CALCIUM LEVEL 8.9 MG/DL (8.3-10.6); CARBON DIOXIDE LEVEL 29 MMOL/L (20-31); CHLORIDE LEVEL 101 MMOL/L (98-107); CREATININE FOR GFR 0.67 MG/DL (0.55-1.30); GLOMERULAR FILTRATION RATE > 60.0 (>32); GLUCOSE, FASTING 260 MG/DL (74-106); SODIUM LEVEL 138 MMOL/L (136-145); TOTAL PROTEIN 6.5 G/DL (5.7-8.2)
[2022-12-06 13:57] LABS: THYROID STIMULATING HORMONE 1.498 uIU/ML (0.55-4.78)
== END ==
PROVIDERS: ATTEND Physician Assistant
DX: R44.3 Hallucinations, unspecified (principal); Z79.899 Other long term (current) drug therapy

== ENCOUNTER → 2022-12-08 | Outpatient (CLI) | payer MEDICARE, MEDICAID | LOC: M PLAIMG 11:40 | PROVIDERS: ATTEND Physician Assistant | DX: R44.0 Auditory hallucinations (principal); I67.82 Cerebral ischemia; G31.1 Senile degeneration of brain, not elsewhere classified; J34.1 Cyst and mucocele of nose and nasal sinus; I65.29 Occlusion and stenosis of unspecified carotid artery ==

== ENCOUNTER → 2022-12-09 | Outpatient (REF) | payer MEDICARE, MEDICAID | PROVIDERS: ATTEND Physician Assistant | DX: R05.9 Cough, unspecified (principal) ==

== ENCOUNTER → 2022-12-12 | Outpatient (REF) | payer MEDICARE, MEDICAID ==
[2022-12-12 11:18] LABS: HEMATOCRIT 38.2 % (36.0-47.0); HEMOGLOBIN 12.3 g/dl (12.0-15.5); MEAN CORPUSCULAR HEMOGLOBIN 31.8 pg (27.0-33.0); MEAN CORPUSCULAR HGB CONC 32.2 g/dl (32.0-36.5); MEAN CORPUSCULAR VOLUME 98.7 fl (80.0-96.0); PLATELET COUNT, AUTOMATED 200 10^3/uL (150-450); RED BLOOD COUNT 3.87 10^6/uL (4.00-5.40)
[2022-12-12 11:50] LABS: ALBUMIN 3.4 G/DL (3.2-5.2); ALKALINE PHOSPHATASE 86 U/L (46-116); ALT/SGPT 20 U/L (7.0-40); AST/SGOT 23 U/L (<34); BILIRUBIN,DIRECT 0.2 MG/DL (<0.4); BILIRUBIN,TOTAL 0.5 MG/DL (0.3-1.2); BLOOD UREA NITROGEN 13 MG/DL (9-23); CALCIUM LEVEL 9.1 MG/DL (8.3-10.6); CARBON DIOXIDE LEVEL 26 MMOL/L (20-31); CHLORIDE LEVEL 103 MMOL/L (98-107); CREATININE FOR GFR 0.66 MG/DL (0.55-1.30); GLOMERULAR FILTRATION RATE > 60.0 (>32); GLUCOSE, FASTING 241 MG/DL (74-106); POTASSIUM SERUM 3.8 MMOL/L (3.5-5.1); SODIUM LEVEL 141 MMOL/L (136-145); TOTAL PROTEIN 6.6 G/DL (5.7-8.2)
== END ==
PROVIDERS: ATTEND Physician Assistant
DX: I10 Essential (primary) hypertension (principal)

== ENCOUNTER → 2022-12-14 | Outpatient (REF) | payer MEDICARE, MEDICAID ==
[2022-12-14 11:01] LABS: HEMOGLOBIN A1c 7.3 % (4.0-6.0)
[2022-12-14 11:02] LABS: ALBUMIN 3.4 G/DL (3.2-5.2); ALKALINE PHOSPHATASE 78 U/L (46-116); ALT/SGPT 16 U/L (7.0-40); AST/SGOT 31 U/L (<34); BILIRUBIN,TOTAL 0.5 MG/DL (0.3-1.2); BLOOD UREA NITROGEN 15 MG/DL (9-23); CALCIUM LEVEL 8.8 MG/DL (8.3-10.6); CARBON DIOXIDE LEVEL 27 MMOL/L (20-31); CHLORIDE LEVEL 104 MMOL/L (98-107); CREATININE FOR GFR 0.71 MG/DL (0.55-1.30); GLOMERULAR FILTRATION RATE > 60.0 (>32); GLUCOSE, FASTING 228 MG/DL (74-106); POTASSIUM SERUM 3.9 MMOL/L (3.5-5.1); SODIUM LEVEL 142 MMOL/L (136-145); TOTAL PROTEIN 6.5 G/DL (5.7-8.2)
== END ==
PROVIDERS: ATTEND Physician Assistant
DX: R63.5 Abnormal weight gain (principal); Z79.899 Other long term (current) drug therapy

== ENCOUNTER → 2022-12-21 | Outpatient (REF) | payer MEDICARE, MEDICAID ==
[2022-12-21 17:49] LABS: HEMATOCRIT 36.3 % (36.0-47.0); HEMOGLOBIN 11.9 g/dl (12.0-15.5); MEAN CORPUSCULAR HEMOGLOBIN 31.9 pg (27.0-33.0); MEAN CORPUSCULAR HGB CONC 32.8 g/dl (32.0-36.5); MEAN CORPUSCULAR VOLUME 97.3 fl (80.0-96.0); PLATELET COUNT, AUTOMATED 208 10^3/uL (150-450); RED BLOOD COUNT 3.73 10^6/uL (4.00-5.40); WHITE BLOOD COUNT 7.7 10^3/uL (4.0-10.0)
[2022-12-21 17:57] LABS: BLOOD UREA NITROGEN 17 MG/DL (9-23); CARBON DIOXIDE LEVEL 23 MMOL/L (20-31); CHLORIDE LEVEL 104 MMOL/L (98-107); CREATININE FOR GFR 0.85 MG/DL (0.55-1.30); GLOMERULAR FILTRATION RATE > 60.0 (>32); GLUCOSE, FASTING 103 MG/DL (74-106); POTASSIUM SERUM 4.5 MMOL/L (3.5-5.1); SODIUM LEVEL 139 MMOL/L (136-145)
== END ==
PROVIDERS: ATTEND Physician Assistant
DX: R41.0 Disorientation, unspecified (principal)

== ENCOUNTER → 2023-03-15 | Outpatient (REF) | payer MEDICARE, MEDICAID ==
[~2023-03-15] MED LIST changes: +CYAN-1 PO; -CYAN100050 PO; -GABA-283 PO; +GABA-284 PO
[2023-03-15 10:26] LABS: HEMATOCRIT 37.8 % (36.0-47.0); HEMOGLOBIN 11.9 g/dl (12.0-15.5); MEAN CORPUSCULAR HEMOGLOBIN 30.7 pg (27.0-33.0); MEAN CORPUSCULAR HGB CONC 31.5 g/dl (32.0-36.5); MEAN CORPUSCULAR VOLUME 97.7 fl (80.0-96.0); PLATELET COUNT, AUTOMATED 175 10^3/uL (150-450); RED BLOOD COUNT 3.87 10^6/uL (4.00-5.40); WHITE BLOOD COUNT 7.1 10^3/uL (4.0-10.0)
[2023-03-15 10:56] LABS: THYROID STIMULATING HORMONE 1.417 uIU/ML (0.55-4.78)
[2023-03-15 10:57] LABS: ALBUMIN 3.5 G/DL (3.2-5.2); ALKALINE PHOSPHATASE 70 U/L (46-116); ALT/SGPT 12 U/L (7.0-40); AST/SGOT 14 U/L (<34); BILIRUBIN,DIRECT 0.2 MG/DL (<0.4); BILIRUBIN,TOTAL 0.5 MG/DL (0.3-1.2); BLOOD UREA NITROGEN 13 MG/DL (9-23); CALCIUM LEVEL 9.1 MG/DL (8.3-10.6); CARBON DIOXIDE LEVEL 27 MMOL/L (20-31); CHLORIDE LEVEL 105 MMOL/L (98-107); CREATININE FOR GFR 0.68 MG/DL (0.55-1.30); GLOMERULAR FILTRATION RATE > 60.0 (>32); GLUCOSE, FASTING 263 MG/DL (74-106); POTASSIUM SERUM 3.6 MMOL/L (3.5-5.1); SODIUM LEVEL 143 MMOL/L (136-145); TOTAL PROTEIN 6.5 G/DL (5.7-8.2)
== END ==
PROVIDERS: ATTEND Internal Medicine
DX: I10 Essential (primary) hypertension (principal)

== ENCOUNTER → 2023-05-29 | Outpatient (REF) | payer MEDICARE, MEDICAID ==
[~2023-05-29] MED LIST changes: -PREG75CA2 PO; +PREG75CA3 PO
== END ==
PROVIDERS: ATTEND Physician Assistant
DX: R44.3 Hallucinations, unspecified (principal); Z53.8 Procedure and treatment not carried out for other reasons

== ENCOUNTER → 2023-05-29 | Outpatient (REF) | payer MEDICARE, MEDICAID | PROVIDERS: ATTEND Internal Medicine | DX: R14.0 Abdominal distension (gaseous) (principal) ==

== ENCOUNTER → 2023-05-31 | Outpatient (REF) | payer MEDICARE, MEDICAID ==
[2023-05-31 11:42] LABS: BASO # 0.1 10^3/uL (0.0-0.2); BASO % 0.6 % (0.0-1.0); EOS # 0.5 10^3/uL (0.0-0.5); EOS % 6.1 % (0.0-3.0); HEMATOCRIT 35.4 % (36.0-47.0); HEMOGLOBIN 10.7 g/dl (12.0-15.5); LYMPH % 11.6 % (24.0-44.0); MEAN CORPUSCULAR HEMOGLOBIN 30.2 pg (27.0-33.0); MEAN CORPUSCULAR HGB CONC 30.2 g/dl (32.0-36.5); MONO # 0.7 10^3/uL (0.0-0.8); MONO % 7.3 % (2.0-8.0); NEUTROPHILS # 6.6 10^3/uL (1.5-8.5); NEUTROPHILS % 73.9 % (36.0-66.0); PLATELET COUNT, AUTOMATED 248 10^3/uL (150-450); RED BLOOD COUNT 3.54 10^6/uL (4.00-5.40); WHITE BLOOD COUNT 8.9 10^3/uL (4.0-10.0)
[2023-05-31 12:05] LABS: BLOOD UREA NITROGEN 22 MG/DL (9-23); CARBON DIOXIDE LEVEL 29 MMOL/L (20-31); CHLORIDE LEVEL 100 MMOL/L (98-107); CREATININE FOR GFR 0.81 MG/DL (0.55-1.30); GLOMERULAR FILTRATION RATE > 60.0 (>32); GLUCOSE, FASTING 287 MG/DL (74-106); POTASSIUM SERUM 4.1 MMOL/L (3.5-5.1); SODIUM LEVEL 139 MMOL/L (136-145)
== END ==
PROVIDERS: ATTEND Physician Assistant
DX: R41.0 Disorientation, unspecified (principal)

== ENCOUNTER → 2023-09-18 | Outpatient (REF) | payer MEDICARE, MEDICAID ==
[2023-09-18 11:38] LABS: HEMATOCRIT 37.1 % (36.0-47.0); HEMOGLOBIN 11.6 g/dl (12.0-15.5); MEAN CORPUSCULAR HEMOGLOBIN 29.9 pg (27.0-33.0); MEAN CORPUSCULAR HGB CONC 31.3 g/dl (32.0-36.5); MEAN CORPUSCULAR VOLUME 95.6 fl (80.0-96.0); PLATELET COUNT, AUTOMATED 186 10^3/uL (150-450); RED BLOOD COUNT 3.88 10^6/uL (4.00-5.40); WHITE BLOOD COUNT 6.3 10^3/uL (4.0-10.0)
[2023-09-18 11:57] LABS: THYROID STIMULATING HORMONE 2.176 uIU/ML (0.55-4.78)
[2023-09-18 12:00] LABS: ALBUMIN 3.5 G/DL (3.2-5.2); ALKALINE PHOSPHATASE 66 U/L (46-116); ALT/SGPT 12 U/L (7.0-40); AST/SGOT 15 U/L (<34); BILIRUBIN,DIRECT 0.1 MG/DL (<0.4); BILIRUBIN,TOTAL 0.5 MG/DL (0.3-1.2); BLOOD UREA NITROGEN 15 MG/DL (9-23); CALCIUM LEVEL 8.7 MG/DL (8.3-10.6); CARBON DIOXIDE LEVEL 28 MMOL/L (20-31); CHLORIDE LEVEL 102 MMOL/L (98-107); CREATININE FOR GFR 0.71 MG/DL (0.55-1.30); GLOMERULAR FILTRATION RATE > 60.0 (>32); GLUCOSE, FASTING 230 MG/DL (74-106); POTASSIUM SERUM 3.7 MMOL/L (3.5-5.1); SODIUM LEVEL 140 MMOL/L (136-145); TOTAL PROTEIN 6.6 G/DL (5.7-8.2)
[2023-09-18 12:09] LABS: HEMOGLOBIN A1c 7.8 % (4.0-6.0)
== END ==
PROVIDERS: ATTEND Physician Assistant
DX: I10 Essential (primary) hypertension (principal); Z79.899 Other long term (current) drug therapy

== ENCOUNTER → 2023-10-11 | Outpatient (REF) | payer MEDICARE, MEDICAID ==
[~2023-10-11] MED LIST changes: -ASPI-161 PO; +ASPI-615 PO; -SENN1TAB41 PO; +SENN1TAB85 PO
== END ==
PROVIDERS: ATTEND Internal Medicine
DX: R09.81 Nasal congestion (principal)

== ENCOUNTER → 2023-10-13 | Outpatient (REF) | payer MEDICARE, MEDICAID ==
[2023-10-13 16:03] LABS: HEMATOCRIT 37.9 % (36.0-47.0); MEAN CORPUSCULAR HEMOGLOBIN 29.9 pg (27.0-33.0); MEAN CORPUSCULAR HGB CONC 31.7 g/dl (32.0-36.5); MEAN CORPUSCULAR VOLUME 94.3 fl (80.0-96.0); PLATELET COUNT, AUTOMATED 211 10^3/uL (150-450); RED BLOOD COUNT 4.02 10^6/uL (4.00-5.40)
[2023-10-13 16:54] LABS: ALBUMIN 3.9 G/DL (3.2-5.2); ALKALINE PHOSPHATASE 74 U/L (46-116); ALT/SGPT 14 U/L (7.0-40); AST/SGOT 21 U/L (<34); BILIRUBIN,TOTAL 0.4 MG/DL (0.3-1.2); BLOOD UREA NITROGEN 12 MG/DL (9-23); CARBON DIOXIDE LEVEL 26 MMOL/L (20-31); CHLORIDE LEVEL 103 MMOL/L (98-107); CREATININE FOR GFR 0.69 MG/DL (0.55-1.30); GLOMERULAR FILTRATION RATE > 60.0 (>32); GLUCOSE, FASTING 151 MG/DL (74-106); POTASSIUM SERUM 3.8 MMOL/L (3.5-5.1); SODIUM LEVEL 139 MMOL/L (136-145)
== END ==
PROVIDERS: ATTEND Internal Medicine
DX: R41.0 Disorientation, unspecified (principal)

== ENCOUNTER 2023-10-17 14:10 | Emergency (ER) | payer MEDICARE, MEDICAID ==
[~2023-10-17] VITALS: Ht 162.6 cm; Wt 56.7 kg
[~2023-10-17 14:10] MED LIST changes: -AMIT10TA7 PO; -COLA100C5 PO; -DULO1CAP5 PO; -FLUTISP NARES; -GLUC1LIQ18 PO; -GUAI600T54 PO; -LIDO0.052 TOP; -LIDO113S2 TOP; -METF500T13 PO
[2023-10-17] MEDS ORDERED: ISOVUE-370 76% 100ML VIAL As Ordered ONE (14:56)
[2023-10-17] MEDS ORDERED: HEPARIN SOD (PORCINE) 5000UNITS/ML 1ML VIAL/SYRINGE IV PRN (15:05)
[2023-10-17 15:07] LABS: BASO # 0.1 10^3/uL (0.0-0.2); BASO % 0.7 % (0.0-1.0); EOS # 0.5 10^3/uL (0.0-0.5); HEMATOCRIT 35.9 % (36.0-47.0); HEMOGLOBIN 11.5 g/dl (12.0-15.5); LYMPH # 1.9 10^3/uL (1.5-5.0); LYMPH % 19.4 % (24.0-44.0); MEAN CORPUSCULAR HEMOGLOBIN 30.1 pg (27.0-33.0); MONO # 0.9 10^3/uL (0.0-0.8); MONO % 9.6 % (2.0-8.0); NEUTROPHILS # 6.2 10^3/uL (1.5-8.5); PLATELET COUNT, AUTOMATED 248 10^3/uL (150-450); RED BLOOD COUNT 3.82 10^6/uL (4.00-5.40); WHITE BLOOD COUNT 9.5 10^3/uL (4.0-10.0)
[2023-10-17 15:21] LABS: ERYTHROCYTE SEDIMENTATION RATE 78 mm/hr (0-30)
[2023-10-17 15:25] LABS: D-DIMER QUANT 0.37 ug/mL (<0.5); INR 1.21; PARTIAL THROMBOPLASTIN TIME 29.6 SECONDS (24.8-34.2)
[2023-10-17] MEDS: POTASSIUM CHLORIDE 10MEQ SR TABLET PO ONE (15:28)
[2023-10-17] MEDS: NS 500 ML IV ONE (15:29)
[2023-10-17] MEDS: HEPARIN SOD (PORCINE) 5000UNITS/ML 1ML VIAL/SYRINGE IV ONE (15:30)
[2023-10-17] MEDS: HEPARIN DRIP 25,000 UNITS in IV 1 EA IV SCH (15:35)
[2023-10-17 15:37] LABS: C REACTIVE PROTEIN QUANTITATIV < 0.40 MG/DL (<1.0)
[2023-10-17 15:41] LABS: ALBUMIN 3.7 G/DL (3.2-5.2); ALKALINE PHOSPHATASE 69 U/L (46-116); ALT/SGPT 21 U/L (7.0-40); AST/SGOT 43 U/L (<34); BILIRUBIN,DIRECT < 0.1 MG/DL (<0.4); BILIRUBIN,TOTAL 0.4 MG/DL (0.3-1.2); BLOOD UREA NITROGEN 14 MG/DL (9-23); CALCIUM LEVEL 7.9 MG/DL (8.3-10.6); CARBON DIOXIDE LEVEL 25 MMOL/L (20-31); CHLORIDE LEVEL 105 MMOL/L (98-107); CK-MB VALUE MASS 3.8 NG/ML (<3.6); CPK CREATINE PHOSPHOKINASE 168 U/L (34-145); CREATININE FOR GFR 0.76 MG/DL (0.55-1.30); GLOMERULAR FILTRATION RATE > 60.0 (>32); GLUCOSE, FASTING 137 MG/DL (74-106); MB/CK RELATIVE INDEX 2.26 (< OR =4); POTASSIUM SERUM 4.3 MMOL/L (3.5-5.1); SODIUM LEVEL 140 MMOL/L (136-145); TOTAL PROTEIN 6.9 G/DL (5.7-8.2)
[2023-10-17 15:49] LABS: RSV AMPLIFICATION NEGATIVE (NEGATIVE)
[2023-10-17] MEDS ORDERED: COLA100C5 PO (16:10)
[2023-10-17] MEDS ORDERED: FLUTISP NARES (16:10)
[2023-10-17] MEDS ORDERED: AMIT10TA7 PO (16:10)
[2023-10-17] MEDS ORDERED: DULO1CAP5 PO (16:10)
[2023-10-17] MEDS ORDERED: GLUC1LIQ18 PO (16:10)
[2023-10-17] MEDS ORDERED: METF500T13 PO (16:21)
[2023-10-17] MEDS ORDERED: GUAI600T54 PO (16:21)
[2023-10-17] MEDS ORDERED: LIDO0.052 TOP (16:34)
[2023-10-17 16:36] LABS: CK-MB VALUE MASS 3.9 NG/ML (<3.6)
[2023-10-17 16:38] LABS: MB/CK RELATIVE INDEX 3.27 (< OR =4)
[2023-10-17] MEDS ORDERED: LIDO113S2 TOP (16:46)
[2023-10-17] MEDS ORDERED: ACET-683 PO (16:53)
[2023-10-17] MEDS ORDERED: HOME MED LIST COMPLETE! XX SCH (16:55)
[2023-10-17 20:00] VITALS: BP 166/72; O2SAT 97
[2023-10-17 20:12] VITALS: TEMP 98.1
== END 2023-10-17 20:15 | disposition short-term general hospital (02) ==
LOC: M ED 14:10 → EDBD 14:10 → M ED 20:15
DX: I70.201 Unspecified atherosclerosis of native arteries of extremities, right leg (principal); E11.9 Type 2 diabetes mellitus without complications; I10 Essential (primary) hypertension; Z89.612 Acquired absence of left leg above knee; Z79.01 Long term (current) use of anticoagulants; Z79.82 Long term (current) use of aspirin; Z79.899 Other long term (current) drug therapy; Z88.2 Allergy status to sulfonamides; Z88.8 Allergy status to other drugs, medicaments and biological substances
CPT/HCPCS: 73706; 80047; 80048; 80076; 82550; 82553; 83605; 84484; 85025; 85379; 85610; 85652; 85730; 86140; 87040; 87631; 93005; 93041; 94760; 96365; 96366; 99285; Q9967

== ENCOUNTER → 2023-10-17 | Outpatient (REF) | payer MEDICARE, MEDICAID ==
[~2023-10-17] MED LIST changes: +AMIT10TA7 PO; +COLA100C5 PO; +DULO1CAP5 PO; +FLUTISP NARES; +GLUC1LIQ18 PO; +GUAI600T54 PO; +LIDO0.052 TOP; +LIDO113S2 TOP; +METF500T13 PO
== END ==
PROVIDERS: ATTEND Internal Medicine
DX: R09.89 Other specified symptoms and signs involving the circulatory and respiratory systems (principal); Z53.8 Procedure and treatment not carried out for other reasons

== ENCOUNTER 2023-10-20 08:09 | Emergency (ER) | payer MEDICARE, MEDICAID ==
[~2023-10-20] VITALS: Ht 162.6 cm; Wt 56.8 kg
[~2023-10-20 08:09] MED LIST changes: -ELIQ2.5T PO
[2023-10-20 09:12] LABS: BASO # 0.1 10^3/uL (0.0-0.2); BASO % 0.8 % (0.0-1.0); EOS # 0.4 10^3/uL (0.0-0.5); EOS % 3.7 % (0.0-3.0); HEMOGLOBIN 8.9 g/dl (12.0-15.5); LYMPH # 1.8 10^3/uL (1.5-5.0); LYMPH % 17.5 % (24.0-44.0); MEAN CORPUSCULAR HEMOGLOBIN 30.2 pg (27.0-33.0); MEAN CORPUSCULAR HGB CONC 31.8 g/dl (32.0-36.5); MEAN CORPUSCULAR VOLUME 94.9 fl (80.0-96.0); MONO # 0.9 10^3/uL (0.0-0.8); MONO % 8.3 % (2.0-8.0); NEUTROPHILS # 7.3 10^3/uL (1.5-8.5); NEUTROPHILS % 69.5 % (36.0-66.0); PLATELET COUNT, AUTOMATED 244 10^3/uL (150-450); RED BLOOD COUNT 2.95 10^6/uL (4.00-5.40); WHITE BLOOD COUNT 10.5 10^3/uL (4.0-10.0)
[2023-10-20 09:13] LABS: INR 1.42; PARTIAL THROMBOPLASTIN TIME 33.6 SECONDS (24.8-34.2); PROTHROMBIN TIME 16.9 SECONDS (12.5-14.5)
[2023-10-20] MEDS ORDERED: ELIQ2.5T PO (09:26)
[2023-10-20 09:31] LABS: LIPASE 22 U/L (12-53)
[2023-10-20 09:40] LABS: ALBUMIN 3.2 G/DL (3.2-5.2); ALKALINE PHOSPHATASE 52 U/L (46-116); ALT/SGPT 16 U/L (7.0-40); AST/SGOT 29 U/L (<34); BILIRUBIN,DIRECT 0.1 MG/DL (<0.4); BILIRUBIN,TOTAL 0.4 MG/DL (0.3-1.2); BLOOD UREA NITROGEN 26 MG/DL (9-23); CALCIUM LEVEL 8.4 MG/DL (8.3-10.6); CARBON DIOXIDE LEVEL 26 MMOL/L (20-31); CHLORIDE LEVEL 109 MMOL/L (98-107); CREATININE FOR GFR 0.63 MG/DL (0.55-1.30); GLOMERULAR FILTRATION RATE > 60.0 (>32); GLUCOSE, FASTING 147 MG/DL (74-106); POTASSIUM SERUM 4.7 MMOL/L (3.5-5.1); SODIUM LEVEL 142 MMOL/L (136-145); TOTAL PROTEIN 6.1 G/DL (5.7-8.2)
[2023-10-20] MEDS: PANTOPRAZOLE 40MG VIAL IV ONE (10:16)
[2023-10-20] MEDS ORDERED: HOME MED LIST COMPLETE! XX SCH (10:30)
[2023-10-20 13:15] VITALS: TEMP 97.8
[2023-10-20] MEDS: PANTOPRAZOLE SODIUM 40 MG in D5W MINI-BAG PLUS 50 ML IV SCH (14:20)
[2023-10-20 14:32] VITALS: BP 114/59; O2SAT 95
== END 2023-10-20 14:35 | disposition short-term general hospital (02) ==
LOC: M ED 08:09
DX: K92.2 Gastrointestinal hemorrhage, unspecified (principal); I25.10 Atherosclerotic heart disease of native coronary artery without angina pectoris; I50.9 Heart failure, unspecified; I25.2 Old myocardial infarction; I10 Essential (primary) hypertension; E78.5 Hyperlipidemia, unspecified; K21.9 Gastro-esophageal reflux disease without esophagitis; J44.9 Chronic obstructive pulmonary disease, unspecified; R11.10 Vomiting, unspecified; Z95.5 Presence of coronary angioplasty implant and graft; Z87.19 Personal history of other diseases of the digestive system; Z87.891 Personal history of nicotine dependence; Z79.82 Long term (current) use of aspirin; Z79.02 Long term (current) use of antithrombotics/antiplatelets; Z88.1 Allergy status to other antibiotic agents; Z88.8 Allergy status to other drugs, medicaments and biological substances
CPT/HCPCS: 71045; 80047; 80048; 80076; 83690; 85025; 85027; 85610; 85730; 86850; 86900; 86901; 87635; 93005; 93041; 96374; 96375; 99285; C9113

== ENCOUNTER → 2023-10-20 | Outpatient (REF) | payer MEDICARE, MEDICAID ==
[~2023-10-20] MED LIST changes: +AMIT10TA7 PO; +COLA100C5 PO; +DULO1CAP5 PO; +ELIQ2.5T PO; +FLUTISP NARES; +GLUC1LIQ18 PO; +GUAI600T54 PO; +LIDO0.052 TOP; +LIDO113S2 TOP; +METF500T13 PO
[2023-10-20 11:38] LABS: HEMATOCRIT 27.3 % (36.0-47.0); HEMOGLOBIN 8.6 g/dl (12.0-15.5); MEAN CORPUSCULAR HEMOGLOBIN 29.9 pg (27.0-33.0); MEAN CORPUSCULAR HGB CONC 31.5 g/dl (32.0-36.5); MEAN CORPUSCULAR VOLUME 94.8 fl (80.0-96.0); PLATELET COUNT, AUTOMATED 220 10^3/uL (150-450); RED BLOOD COUNT 2.88 10^6/uL (4.00-5.40); WHITE BLOOD COUNT 8.6 10^3/uL (4.0-10.0)
== END ==
PROVIDERS: ATTEND Internal Medicine
DX: R11.10 Vomiting, unspecified (principal)

== ENCOUNTER → 2023-11-03 | Outpatient (REF) | payer MEDICARE, MEDICAID ==
[~2023-11-03] MED LIST changes: +ELIQ2.5T PO
== END ==
PROVIDERS: ATTEND Internal Medicine
DX: R09.89 Other specified symptoms and signs involving the circulatory and respiratory systems (principal)

== ENCOUNTER → 2023-11-08 | Outpatient (REF) | payer MEDICAID, MEDICARE | PROVIDERS: ATTEND Physician Assistant | DX: D64.9 Anemia, unspecified (principal); Z53.8 Procedure and treatment not carried out for other reasons ==

== ENCOUNTER → 2023-11-10 | Outpatient (REF) | payer MEDICARE, MEDICAID ==
[2023-11-10 09:55] LABS: HEMATOCRIT 35.7 % (36.0-47.0); MEAN CORPUSCULAR HEMOGLOBIN 28.4 pg (27.0-33.0); MEAN CORPUSCULAR HGB CONC 30.8 g/dl (32.0-36.5); MEAN CORPUSCULAR VOLUME 92.2 fl (80.0-96.0); PLATELET COUNT, AUTOMATED 252 10^3/uL (150-450); RED BLOOD COUNT 3.87 10^6/uL (4.00-5.40); WHITE BLOOD COUNT 8.2 10^3/uL (4.0-10.0)
[2023-11-10 10:18] LABS: BLOOD UREA NITROGEN 15 MG/DL (9-23); CALCIUM LEVEL 8.7 MG/DL (8.3-10.6); CARBON DIOXIDE LEVEL 30 MMOL/L (20-31); CHLORIDE LEVEL 101 MMOL/L (98-107); CREATININE FOR GFR 0.82 MG/DL (0.55-1.30); GLOMERULAR FILTRATION RATE > 60.0 (>32); GLUCOSE, FASTING 231 MG/DL (74-106); POTASSIUM SERUM 3.5 MMOL/L (3.5-5.1); SODIUM LEVEL 140 MMOL/L (136-145)
== END ==
PROVIDERS: ATTEND Physician Assistant
DX: D64.9 Anemia, unspecified (principal)

== ENCOUNTER → 2023-11-15 | Outpatient (REF) | payer MEDICARE, MEDICAID ==
[2023-11-15 10:31] LABS: HEMATOCRIT 32.6 % (36.0-47.0); HEMOGLOBIN 9.8 g/dl (12.0-15.5); MEAN CORPUSCULAR HEMOGLOBIN 28.5 pg (27.0-33.0); MEAN CORPUSCULAR HGB CONC 30.1 g/dl (32.0-36.5); MEAN CORPUSCULAR VOLUME 94.8 fl (80.0-96.0); PLATELET COUNT, AUTOMATED 194 10^3/uL (150-450); RED BLOOD COUNT 3.44 10^6/uL (4.00-5.40); WHITE BLOOD COUNT 7.2 10^3/uL (4.0-10.0)
[2023-11-15 10:55] LABS: BLOOD UREA NITROGEN 14 MG/DL (9-23); CALCIUM LEVEL 7.9 MG/DL (8.3-10.6); CARBON DIOXIDE LEVEL 30 MMOL/L (20-31); CHLORIDE LEVEL 104 MMOL/L (98-107); CREATININE FOR GFR 0.71 MG/DL (0.55-1.30); GLOMERULAR FILTRATION RATE > 60.0 (>32); GLUCOSE, FASTING 284 MG/DL (74-106); POTASSIUM SERUM 3.5 MMOL/L (3.5-5.1); SODIUM LEVEL 142 MMOL/L (136-145)
== END ==
PROVIDERS: ATTEND Physician Assistant
DX: D64.9 Anemia, unspecified (principal)

== ENCOUNTER → 2023-11-20 | Outpatient (REF) | payer MEDICARE, MEDICAID ==
[2023-11-20 11:46] LABS: HEMATOCRIT 31.8 % (36.0-47.0); HEMOGLOBIN 9.7 g/dl (12.0-15.5); MEAN CORPUSCULAR HEMOGLOBIN 28.4 pg (27.0-33.0); MEAN CORPUSCULAR HGB CONC 30.5 g/dl (32.0-36.5); MEAN CORPUSCULAR VOLUME 93.3 fl (80.0-96.0); PLATELET COUNT, AUTOMATED 181 10^3/uL (150-450); RED BLOOD COUNT 3.41 10^6/uL (4.00-5.40); WHITE BLOOD COUNT 6.3 10^3/uL (4.0-10.0)
[2023-11-20 12:04] LABS: BLOOD UREA NITROGEN 10 MG/DL (9-23); CALCIUM LEVEL 8.1 MG/DL (8.3-10.6); CARBON DIOXIDE LEVEL 28 MMOL/L (20-31); CHLORIDE LEVEL 104 MMOL/L (98-107); CREATININE FOR GFR 0.65 MG/DL (0.55-1.30); GLOMERULAR FILTRATION RATE > 60.0 (>32); GLUCOSE, FASTING 199 MG/DL (74-106); IRON (FE) 36 UG/DL (50-170); PERCENT SATURATION 11.7 % (13.2-45.0); POTASSIUM SERUM 3.6 MMOL/L (3.5-5.1); SODIUM LEVEL 142 MMOL/L (136-145); TOTAL IRON BINDING CAPACITY 309 UG/DL (250-425)
== END ==
PROVIDERS: ATTEND Internal Medicine
DX: I50.9 Heart failure, unspecified (principal)

== ENCOUNTER → 2023-11-22 | Outpatient (REF) | payer MEDICARE, MEDICAID ==
[2023-11-22 12:08] LABS: HEMATOCRIT 30.9 % (36.0-47.0); HEMOGLOBIN 9.3 g/dl (12.0-15.5); MEAN CORPUSCULAR HEMOGLOBIN 28.1 pg (27.0-33.0); MEAN CORPUSCULAR HGB CONC 30.1 g/dl (32.0-36.5); MEAN CORPUSCULAR VOLUME 93.4 fl (80.0-96.0); PLATELET COUNT, AUTOMATED 210 10^3/uL (150-450); RED BLOOD COUNT 3.31 10^6/uL (4.00-5.40); WHITE BLOOD COUNT 6.1 10^3/uL (4.0-10.0)
[2023-11-22 12:39] LABS: BLOOD UREA NITROGEN 13 MG/DL (9-23); CALCIUM LEVEL 8.3 MG/DL (8.3-10.6); CARBON DIOXIDE LEVEL 30 MMOL/L (20-31); CHLORIDE LEVEL 107 MMOL/L (98-107); CREATININE FOR GFR 0.81 MG/DL (0.55-1.30); GLOMERULAR FILTRATION RATE > 60.0 (>32); GLUCOSE, FASTING 215 MG/DL (74-106); POTASSIUM SERUM 3.9 MMOL/L (3.5-5.1); SODIUM LEVEL 144 MMOL/L (136-145)
== END ==
PROVIDERS: ATTEND Physician Assistant
DX: D64.9 Anemia, unspecified (principal)

== ENCOUNTER 2023-12-06 15:52 | Inpatient (IN) | payer MEDICARE, MEDICAID ==
[~2023-12-06] VITALS: Ht 162.6 cm; Wt 53.3 kg
[2023-12-06] VITALS (8 sets, daily range): BP systolic 120–165; BP diastolic 61–70; TEMP 97.9–98.7; O2SAT 91–98
[~2023-12-06 15:52] MED LIST changes: -BUDE10.7 INH; -SUCR1ORA PO
[2023-12-06] MEDS ORDERED: PANT40TA29 PO (16:42)
[2023-12-06] MEDS ORDERED: BUDE10.7 INH (16:42)
[2023-12-06] MEDS ORDERED: HOME MED LIST COMPLETE! XX SCH (16:50)
[2023-12-06] MEDS: PANTOPRAZOLE 40MG VIAL IV ONE (17:08)
[2023-12-06 17:37] LABS: BASO % 0.6 % (0.0-1.0); EOS # 0.3 10^3/uL (0.0-0.5); LYMPH # 1.4 10^3/uL (1.5-5.0); LYMPH % 21.4 % (24.0-44.0); MEAN CORPUSCULAR HEMOGLOBIN 28.3 pg (27.0-33.0); MEAN CORPUSCULAR HGB CONC 30.2 g/dl (32.0-36.5); MEAN CORPUSCULAR VOLUME 93.9 fl (80.0-96.0); MONO # 0.7 10^3/uL (0.0-0.8); NEUTROPHILS # 4.2 10^3/uL (1.5-8.5); NEUTROPHILS % 63.7 % (36.0-66.0); PLATELET COUNT, AUTOMATED 201 10^3/uL (150-450); RED BLOOD COUNT 2.12 10^6/uL (4.00-5.40); WHITE BLOOD COUNT 6.5 10^3/uL (4.0-10.0)
[2023-12-06 17:40] LABS: INR 1.28; PARTIAL THROMBOPLASTIN TIME 30.5 SECONDS (24.8-34.2); PROTHROMBIN TIME 15.6 SECONDS (12.5-14.5)
[2023-12-06 17:50] LABS: HEMATOCRIT 19.9 % (36.0-47.0)
[2023-12-06 17:56] LABS: ALBUMIN 3.1 G/DL (3.2-5.2); ALKALINE PHOSPHATASE 51 U/L (46-116); ALT/SGPT 12 U/L (7.0-40); AST/SGOT 13 U/L (<34); BILIRUBIN,DIRECT 0.1 MG/DL (<0.4); BILIRUBIN,TOTAL 0.3 MG/DL (0.3-1.2); BLOOD UREA NITROGEN 14 MG/DL (9-23); CALCIUM LEVEL 8.2 MG/DL (8.3-10.6); CARBON DIOXIDE LEVEL 26 MMOL/L (20-31); CHLORIDE LEVEL 106 MMOL/L (98-107); CREATININE FOR GFR 0.81 MG/DL (0.55-1.30); GLOMERULAR FILTRATION RATE > 60.0 (>32); GLUCOSE, FASTING 179 MG/DL (74-106); LIPASE 25 U/L (12-53); POTASSIUM SERUM 3.9 MMOL/L (3.5-5.1); SODIUM LEVEL 141 MMOL/L (136-145); TOTAL PROTEIN 5.7 G/DL (5.7-8.2)
[2023-12-06] MEDS ORDERED: MOM 30ML SUSPENSION UDC PO PRN (18:10)
[2023-12-06] MEDS ORDERED: GLUCAGON INJ 1MG VIAL SC PRN (18:10)
[2023-12-06] MEDS ORDERED: DEXTROSE 50% 50ML SYRINGE IV PRN (18:10)
[2023-12-06] MEDS ORDERED: NITROGLYCERIN 0.4MG SUBL TABLET SL PRN (18:10)
[2023-12-06] MEDS ORDERED: GLUCOSE 4 GM CHEW PO PRN (18:10)
[2023-12-06] MEDS ORDERED: FLEET ENEMA PR PRN (18:10)
[2023-12-06] MEDS ORDERED: BISACODYL 10MG SUPP PR PRN (18:10)
[2023-12-06] MEDS ORDERED: IPRATROPIUM 0.5MG/ALBUTEROL 2.5MG INH SOL UD 3ML (DUONEB) NEB PRN (18:40)
[2023-12-06 19:04] LABS: LDH LACTATE DEHYDROGENASE 161 U/L (120-246)
[2023-12-06 19:05] LABS: IRON (FE) 9 UG/DL (50-170); PERCENT SATURATION 2.4 % (13.2-45.0); TOTAL IRON BINDING CAPACITY 370 UG/DL (250-425)
[2023-12-06 19:07] LABS: FERRITIN 16.3 NG/ML (7.3-270.7)
[2023-12-06 19:08] LABS: VITAMIN B12 LEVEL 568 PG/ML (211-911)
[2023-12-06] MEDS: INSULIN LISPRO (NovoLOG) PER UNIT SC SCH (21:00)
[2023-12-06] MEDS: AMITRIPTYLINE 10MG TABLET PO SCH (21:00)
[2023-12-06] MEDS: SUCRALFATE SUSP 1GM/10ML UD PO SCH (22:51)
[2023-12-06] MEDS: APIXABAN 2.5 MG TAB (ELIQUIS) PO SCH (22:51)
[2023-12-06] MEDS: ATORVASTATIN 20 MG TAB PO SCH (22:51)
[2023-12-06] MEDS: PANTOPRAZOLE 40MG VIAL IV SCH (22:51)
[2023-12-06] MEDS: CARVedilol 3.125 MG TAB PO SCH (22:52)
[2023-12-06] MEDS: ACETAMINOPHEN TAB 650MG DOSE (2X325MG) PO PRN (23:24)
[2023-12-07] VITALS (7 sets, daily range): BP systolic 140–155; BP diastolic 50–70; TEMP 97.2–98; O2SAT 91–97
[2023-12-07 05:44] LABS: BASO # 0.1 10^3/uL (0.0-0.2); BASO % 1.1 % (0.0-1.0); EOS # 0.3 10^3/uL (0.0-0.5); EOS % 5.1 % (0.0-3.0); HEMATOCRIT 27.8 % (36.0-47.0); HEMOGLOBIN 9.2 g/dl (12.0-15.5); LYMPH # 1.4 10^3/uL (1.5-5.0); LYMPH % 21.6 % (24.0-44.0); MEAN CORPUSCULAR HEMOGLOBIN 28.8 pg (27.0-33.0); MEAN CORPUSCULAR HGB CONC 33.1 g/dl (32.0-36.5); MEAN CORPUSCULAR VOLUME 87.1 fl (80.0-96.0); MONO # 0.7 10^3/uL (0.0-0.8); MONO % 10.7 % (2.0-8.0); NEUTROPHILS % 61.2 % (36.0-66.0); PLATELET COUNT, AUTOMATED 150 10^3/uL (150-450); RED BLOOD COUNT 3.19 10^6/uL (4.00-5.40); WHITE BLOOD COUNT 6.6 10^3/uL (4.0-10.0)
[2023-12-07 06:13] LABS: BLOOD UREA NITROGEN 13 MG/DL (9-23); CARBON DIOXIDE LEVEL 25 MMOL/L (20-31); CHLORIDE LEVEL 109 MMOL/L (98-107); CREATININE FOR GFR 0.69 MG/DL (0.55-1.30); GLOMERULAR FILTRATION RATE > 60.0 (>32); GLUCOSE, FASTING 136 MG/DL (74-106); MAGNESIUM LEVEL 1.7 MG/DL (1.8-2.4); POTASSIUM SERUM 3.9 MMOL/L (3.5-5.1); SODIUM LEVEL 143 MMOL/L (136-145)
[2023-12-07] MEDS: FLUTICASONE PROP 0.05% NASAL SPRAY 16 GM (FLONASE) NARES SCH (08:28)
[2023-12-07] MEDS: INSULIN LISPRO (NovoLOG) PER UNIT SC SCH (08:28)
[2023-12-07] MEDS: ASPIRIN 81MG ENTERIC TABLET PO SCH (08:29)
[2023-12-07] MEDS: CLOPIDOGREL 75 MG TAB PO SCH (08:29)
[2023-12-07] MEDS: DULoxetine 30MG CAPSULE (CYMBALTA) PO SCH (08:30)
[2023-12-07] MEDS: MAG SULF 1GM/100ML (MAG RUN) 1 GM in IV 1 EA IV SCH (08:31)
[2023-12-07] MEDS ORDERED: SUCR1ORA PO (09:57)
[2023-12-07 11:17] LABS: HEMATOCRIT 28.3 % (36.0-47.0); HEMOGLOBIN 9.3 g/dl (12.0-15.5)
[2023-12-07] MEDS: FERRIC CARBOXYMALTOSE INJ 750 MG, VIAL MATE ADAPTER 1 EACH in NS 250 ML IV ONE (11:47)
[2023-12-07] MEDS ORDERED: FUROSEMIDE 20 MG TAB PO ONE (12:25)
[2023-12-08 07:09] LABS: HAPTOGLOBIN 183 mg/dL (41-333); TRANSFERRIN 299 mg/dL (149-313)
== END 2023-12-07 13:22 | DRG 812 ==
LOC: EDBD 15:52 → M ED 15:52 → M ED INP 18:09 → ENRESERV 21:56 → M PCU 23:12
PROVIDERS: ADMIT Internal Medicine; ATTEND Internal Medicine
PROC: 30233N1 Transfusion of Nonautologous Red Blood Cells into Peripheral Vein, Percutaneous Approach (ICD-10-PCS; principal; 2023-12-06)
DX: D50.9 Iron deficiency anemia, unspecified (principal); I50.32 Chronic diastolic (congestive) heart failure; Z66 Do not resuscitate; I73.9 Peripheral vascular disease, unspecified; I11.0 Hypertensive heart disease with heart failure; I25.10 Atherosclerotic heart disease of native coronary artery without angina pectoris; E11.51 Type 2 diabetes mellitus with diabetic peripheral angiopathy without gangrene; J44.9 Chronic obstructive pulmonary disease, unspecified; K21.9 Gastro-esophageal reflux disease without esophagitis; K44.9 Diaphragmatic hernia without obstruction or gangrene; K59.00 Constipation, unspecified; H35.30 Unspecified macular degeneration; E53.8 Deficiency of other specified B group vitamins; E78.5 Hyperlipidemia, unspecified; Z79.01 Long term (current) use of anticoagulants; Z79.02 Long term (current) use of antithrombotics/antiplatelets; Z79.82 Long term (current) use of aspirin; Z79.84 Long term (current) use of oral hypoglycemic drugs; Z79.899 Other long term (current) drug therapy; Z88.1 Allergy status to other antibiotic agents; Z88.8 Allergy status to other drugs, medicaments and biological substances; Z89.612 Acquired absence of left leg above knee; Z95.5 Presence of coronary angioplasty implant and graft; Z86.73 Personal history of transient ischemic attack (TIA), and cerebral infarction without residual deficits

== ENCOUNTER → 2023-12-06 | Outpatient (REF) | payer MEDICARE, MEDICAID ==
[~2023-12-06] MED LIST changes: +BUDE10.7 INH; +SUCR1ORA PO
[2023-12-06 15:04] LABS: BASO # 0.1 10^3/uL (0.0-0.2); BASO % 0.7 % (0.0-1.0); EOS # 0.3 10^3/uL (0.0-0.5); EOS % 4.1 % (0.0-3.0); LYMPH # 1.3 10^3/uL (1.5-5.0); LYMPH % 17.3 % (24.0-44.0); MEAN CORPUSCULAR HEMOGLOBIN 28.8 pg (27.0-33.0); MEAN CORPUSCULAR VOLUME 96.3 fl (80.0-96.0); MONO # 0.5 10^3/uL (0.0-0.8); MONO % 7.1 % (2.0-8.0); NEUTROPHILS # 5.2 10^3/uL (1.5-8.5); NEUTROPHILS % 70.5 % (36.0-66.0); PLATELET COUNT, AUTOMATED 209 10^3/uL (150-450); RED BLOOD COUNT 2.15 10^6/uL (4.00-5.40); WHITE BLOOD COUNT 7.3 10^3/uL (4.0-10.0)
[2023-12-06 15:08] LABS: BLOOD UREA NITROGEN 14 MG/DL (9-23); CARBON DIOXIDE LEVEL 24 MMOL/L (20-31); CHLORIDE LEVEL 106 MMOL/L (98-107); CREATININE FOR GFR 0.83 MG/DL (0.55-1.30); GLOMERULAR FILTRATION RATE > 60.0 (>32); GLUCOSE, FASTING 203 MG/DL (74-106); POTASSIUM SERUM 4.3 MMOL/L (3.5-5.1); SODIUM LEVEL 140 MMOL/L (136-145)
[2023-12-06 15:18] LABS: HEMATOCRIT 20.7 % (36.0-47.0); HEMOGLOBIN 6.2 g/dl (12.0-15.5)
== END ==
PROVIDERS: ATTEND Physician Assistant
DX: R06.02 Shortness of breath (principal)

== ENCOUNTER → 2023-12-06 | Outpatient (REF) | payer MEDICARE, MEDICAID | PROVIDERS: ATTEND Internal Medicine | DX: R06.02 Shortness of breath (principal) ==

== ENCOUNTER → 2023-12-11 | Outpatient (REF) ==
[~2023-12-11] MED LIST changes: +BUDE10.7 INH; +SUCR1ORA PO
[2023-12-11 11:18] LABS: HEMATOCRIT 36.1 % (36.0-47.0); HEMOGLOBIN 11.1 g/dl (12.0-15.5); MEAN CORPUSCULAR HEMOGLOBIN 28.7 pg (27.0-33.0); MEAN CORPUSCULAR HGB CONC 30.7 g/dl (32.0-36.5); MEAN CORPUSCULAR VOLUME 93.3 fl (80.0-96.0); PLATELET COUNT, AUTOMATED 193 10^3/uL (150-450); RED BLOOD COUNT 3.87 10^6/uL (4.00-5.40); WHITE BLOOD COUNT 6.6 10^3/uL (4.0-10.0)
[2023-12-11 11:49] LABS: BLOOD UREA NITROGEN 10 MG/DL (9-23); CALCIUM LEVEL 8.7 MG/DL (8.3-10.6); CARBON DIOXIDE LEVEL 29 MMOL/L (20-31); CHLORIDE LEVEL 104 MMOL/L (98-107); GLOMERULAR FILTRATION RATE > 60.0 (>32); GLUCOSE, FASTING 206 MG/DL (74-106); IRON (FE) 119 UG/DL (50-170); MAGNESIUM LEVEL 1.7 MG/DL (1.8-2.4); POTASSIUM SERUM 3.2 MMOL/L (3.5-5.1); SODIUM LEVEL 139 MMOL/L (136-145)
[2023-12-11 11:50] LABS: PERCENT SATURATION 34.9 % (13.2-45.0); TOTAL IRON BINDING CAPACITY 341 UG/DL (250-425)
[2023-12-11 11:52] LABS: FERRITIN 1223.6 NG/ML (7.3-270.7)
== END ==
PROVIDERS: ATTEND Physician Assistant
DX: D64.9 Anemia, unspecified (principal)

== ENCOUNTER → 2023-12-18 | Outpatient (REF) ==
[2023-12-18 11:19] LABS: HEMATOCRIT 30.5 % (36.0-47.0); HEMOGLOBIN 9.3 g/dl (12.0-15.5); MEAN CORPUSCULAR HEMOGLOBIN 30.7 pg (27.0-33.0); MEAN CORPUSCULAR HGB CONC 30.5 g/dl (32.0-36.5); MEAN CORPUSCULAR VOLUME 100.7 fl (80.0-96.0); PLATELET COUNT, AUTOMATED 184 10^3/uL (150-450); RED BLOOD COUNT 3.03 10^6/uL (4.00-5.40); WHITE BLOOD COUNT 8.8 10^3/uL (4.0-10.0)
[2023-12-18 11:42] LABS: IRON (FE) 84 UG/DL (50-170); PERCENT SATURATION 25.5 % (13.2-45.0); TOTAL IRON BINDING CAPACITY 329 UG/DL (250-425)
[2023-12-18 11:43] LABS: ALBUMIN 3.4 G/DL (3.2-5.2); ALKALINE PHOSPHATASE 59 U/L (46-116); ALT/SGPT 15 U/L (7.0-40); AST/SGOT 21 U/L (<34); BILIRUBIN,DIRECT 0.2 MG/DL (<0.4); BILIRUBIN,TOTAL 0.5 MG/DL (0.3-1.2); BLOOD UREA NITROGEN 17 MG/DL (9-23); CALCIUM LEVEL 8.5 MG/DL (8.3-10.6); CARBON DIOXIDE LEVEL 26 MMOL/L (20-31); CHLORIDE LEVEL 104 MMOL/L (98-107); CREATININE FOR GFR 0.77 MG/DL (0.55-1.30); GLOMERULAR FILTRATION RATE > 60.0 (>32); GLUCOSE, FASTING 228 MG/DL (74-106); POTASSIUM SERUM 3.5 MMOL/L (3.5-5.1); SODIUM LEVEL 139 MMOL/L (136-145); TOTAL PROTEIN 6.1 G/DL (5.7-8.2)
[2023-12-18 11:45] LABS: FERRITIN 567.6 NG/ML (7.3-270.7)
[2023-12-18 11:46] LABS: THYROID STIMULATING HORMONE 1.206 uIU/ML (0.55-4.78)
== END ==
PROVIDERS: ATTEND Physician Assistant
DX: D64.9 Anemia, unspecified (principal)

== ENCOUNTER → 2023-12-19 | Outpatient (REF) | payer MEDICARE, MEDICAID | PROVIDERS: ATTEND Internal Medicine | DX: M19.042 Primary osteoarthritis, left hand (principal); M19.032 Primary osteoarthritis, left wrist ==

== ENCOUNTER → 2023-12-20 | Outpatient (REF) | payer MEDICARE, MEDICAID | PROVIDERS: ATTEND Physician Assistant | DX: I50.9 Heart failure, unspecified (principal); Z53.8 Procedure and treatment not carried out for other reasons ==

== ENCOUNTER 2023-12-22 10:21 | Outpatient (CLI) | payer MEDICARE, MEDICAID ==
[~2023-12-22] VITALS: Ht 162.6 cm; Wt 53.0 kg
[~2023-12-22 10:21] MED LIST changes: +ALBUTEROL SULFATE 2.5MG/0.5ML INH NEB SOLN INH PRN; +EPINEPHrine INJ 1 MG/ML 1ML AMP IM PRN; +NS 1,000 ML IV SCH; +diphenhydrAMINE 50MG/ML VIAL IV PRN; +methylPREDNISolone 125MG 2ML VIAL IV PRN
[2023-12-22 10:50] VITALS: BP 146/66; O2SAT 97
[2023-12-22] MEDS ORDERED: IRON SUCROSE 200 MG in NS 190 ML IV ONE ×2 (11:00→11:45)
[2023-12-22] MEDS: diphenhydrAMINE 25MG PO PRIOR TO INFUSION PO ONE (11:16)
[2023-12-22] MEDS: ACETAMINOPHEN 650MG PO PRIOR TO INFUSION PO ONE (11:16)
[2023-12-22] MEDS: IRON SUCROSE 200 MG in NS 100 ML OVER 1 HR IV ONE (11:42)
[2023-12-22 12:45] VITALS: BP 135/60; O2SAT 97
== END 2023-12-22 13:10 | disposition home or self-care (01) ==
LOC: M INFU 10:21
PROVIDERS: ATTEND Physician Assistant
DX: D50.9 Iron deficiency anemia, unspecified (principal); Z88.1 Allergy status to other antibiotic agents; Z88.8 Allergy status to other drugs, medicaments and biological substances
CPT/HCPCS: 96365; J1756

== ENCOUNTER → 2023-12-25 | Outpatient (REF) ==
[~2023-12-25] MED LIST changes: -ALBUTEROL SULFATE 2.5MG/0.5ML INH NEB SOLN INH PRN; -EPINEPHrine INJ 1 MG/ML 1ML AMP IM PRN; -NS 1,000 ML IV SCH; -diphenhydrAMINE 50MG/ML VIAL IV PRN; -methylPREDNISolone 125MG 2ML VIAL IV PRN
[2023-12-25 11:38] LABS: HEMATOCRIT 34.4 % (36.0-47.0); HEMOGLOBIN 10.5 g/dl (12.0-15.5); MEAN CORPUSCULAR HGB CONC 30.5 g/dl (32.0-36.5); MEAN CORPUSCULAR VOLUME 104.9 fl (80.0-96.0); PLATELET COUNT, AUTOMATED 252 10^3/uL (150-450); RED BLOOD COUNT 3.28 10^6/uL (4.00-5.40); WHITE BLOOD COUNT 5.7 10^3/uL (4.0-10.0)
[2023-12-25 12:12] LABS: BLOOD UREA NITROGEN 15 MG/DL (9-23); CALCIUM LEVEL 8.8 MG/DL (8.3-10.6); CARBON DIOXIDE LEVEL 28 MMOL/L (20-31); CHLORIDE LEVEL 109 MMOL/L (98-107); CREATININE FOR GFR 0.77 MG/DL (0.55-1.30); GLOMERULAR FILTRATION RATE > 60.0 (>32); GLUCOSE, FASTING 236 MG/DL (74-106); IRON (FE) 63 UG/DL (50-170); MAGNESIUM LEVEL 1.8 MG/DL (1.8-2.4); PERCENT SATURATION 19.9 % (13.2-45.0); POTASSIUM SERUM 4.1 MMOL/L (3.5-5.1); SODIUM LEVEL 144 MMOL/L (136-145); TOTAL IRON BINDING CAPACITY 317 UG/DL (250-425)
[2023-12-25 12:14] LABS: FERRITIN 434.1 NG/ML (7.3-270.7)
== END ==
PROVIDERS: ATTEND Physician Assistant
DX: D64.9 Anemia, unspecified (principal)

== ENCOUNTER 2023-12-29 11:10 | Outpatient (CLI) | payer MEDICARE, MEDICAID ==
[~2023-12-29] VITALS: Ht 162.6 cm; Wt 53.0 kg
[2023-12-29 11:00] VITALS: BP 151/65; O2SAT 91
[~2023-12-29 11:10] MED LIST changes: +ALBUTEROL SULFATE 2.5MG/0.5ML INH NEB SOLN INH PRN; +EPINEPHrine INJ 1 MG/ML 1ML AMP IM PRN; +diphenhydrAMINE 50MG/ML VIAL IV PRN; +methylPREDNISolone 125MG 2ML VIAL IV PRN
[2023-12-29] MEDS ORDERED: NS 1,000 ML IV SCH (11:30)
[2023-12-29] MEDS: diphenhydrAMINE 25MG CAP PO ONE (11:34)
[2023-12-29] MEDS: ACETAMINOPHEN TAB 650MG DOSE (2X325MG) PO ONE (11:34)
[2023-12-29] MEDS: IRON SUCROSE 200 MG in NS 100 ML OVER 1 HR IV ONE (11:36)
[2023-12-29 12:40] VITALS: BP 147/66; O2SAT 93
== END 2023-12-29 13:00 | disposition home or self-care (01) ==
LOC: M INFU 11:10
PROVIDERS: ATTEND Physician Assistant
DX: D50.9 Iron deficiency anemia, unspecified (principal); Z88.1 Allergy status to other antibiotic agents; Z88.8 Allergy status to other drugs, medicaments and biological substances
CPT/HCPCS: 96365; J1756

== ENCOUNTER → 2024-01-08 | Outpatient (REF) | payer MEDICARE, MEDICAID ==
[~2024-01-08] MED LIST changes: -ALBUTEROL SULFATE 2.5MG/0.5ML INH NEB SOLN INH PRN; -EPINEPHrine INJ 1 MG/ML 1ML AMP IM PRN; -diphenhydrAMINE 50MG/ML VIAL IV PRN; -methylPREDNISolone 125MG 2ML VIAL IV PRN
[2024-01-08 11:29] LABS: HEMATOCRIT 38.5 % (36.0-47.0); HEMOGLOBIN 12.2 g/dl (12.0-15.5); MEAN CORPUSCULAR HEMOGLOBIN 32.4 pg (27.0-33.0); MEAN CORPUSCULAR HGB CONC 31.7 g/dl (32.0-36.5); MEAN CORPUSCULAR VOLUME 102.1 fl (80.0-96.0); PLATELET COUNT, AUTOMATED 163 10^3/uL (150-450); RED BLOOD COUNT 3.77 10^6/uL (4.00-5.40); WHITE BLOOD COUNT 6.7 10^3/uL (4.0-10.0)
[2024-01-08 12:02] LABS: BLOOD UREA NITROGEN 18 MG/DL (9-23); CARBON DIOXIDE LEVEL 29 MMOL/L (20-31); CHLORIDE LEVEL 108 MMOL/L (98-107); GLOMERULAR FILTRATION RATE > 60.0 (>32); GLUCOSE, FASTING 157 MG/DL (74-106); IRON (FE) 71 UG/DL (50-170); MAGNESIUM LEVEL 1.8 MG/DL (1.8-2.4); PERCENT SATURATION 24.4 % (13.2-45.0); SODIUM LEVEL 142 MMOL/L (136-145); TOTAL IRON BINDING CAPACITY 291 UG/DL (250-425)
[2024-01-08 12:03] LABS: FERRITIN 286.4 NG/ML (7.3-270.7)
== END ==
PROVIDERS: ATTEND Physician Assistant
DX: D64.9 Anemia, unspecified (principal)

== ENCOUNTER → 2024-01-22 | Outpatient (REF) | payer MEDICARE, MEDICAID ==
[2024-01-22 12:02] LABS: HEMATOCRIT 38.6 % (36.0-47.0); HEMOGLOBIN 12.3 g/dl (12.0-15.5); MEAN CORPUSCULAR HEMOGLOBIN 32.8 pg (27.0-33.0); MEAN CORPUSCULAR HGB CONC 31.9 g/dl (32.0-36.5); MEAN CORPUSCULAR VOLUME 102.9 fl (80.0-96.0); PLATELET COUNT, AUTOMATED 171 10^3/uL (150-450); RED BLOOD COUNT 3.75 10^6/uL (4.00-5.40)
[2024-01-22 12:25] LABS: BLOOD UREA NITROGEN 18 MG/DL (9-23); CALCIUM LEVEL 8.9 MG/DL (8.3-10.6); CARBON DIOXIDE LEVEL 28 MMOL/L (20-31); CHLORIDE LEVEL 102 MMOL/L (98-107); CREATININE FOR GFR 0.74 MG/DL (0.55-1.30); GLOMERULAR FILTRATION RATE > 60.0 (>32); GLUCOSE, FASTING 228 MG/DL (74-106); IRON (FE) 70 UG/DL (50-170); MAGNESIUM LEVEL 1.5 MG/DL (1.8-2.4); PERCENT SATURATION 23.2 % (13.2-45.0); POTASSIUM SERUM 3.1 MMOL/L (3.5-5.1); SODIUM LEVEL 141 MMOL/L (136-145); TOTAL IRON BINDING CAPACITY 302 UG/DL (250-425)
[2024-01-22 12:27] LABS: FERRITIN 176.3 NG/ML (7.3-270.7)
== END ==
PROVIDERS: ATTEND Physician Assistant
DX: D64.9 Anemia, unspecified (principal)

== ENCOUNTER → 2024-01-31 | Outpatient (REF) | payer MEDICARE, MEDICAID ==
[2024-01-31 10:10] LABS: BLOOD UREA NITROGEN 20 MG/DL (9-23); CALCIUM LEVEL 9.1 MG/DL (8.3-10.6); CARBON DIOXIDE LEVEL 31 MMOL/L (20-31); CHLORIDE LEVEL 106 MMOL/L (98-107); CREATININE FOR GFR 0.82 MG/DL (0.55-1.30); GLOMERULAR FILTRATION RATE > 60.0 (>32); GLUCOSE, FASTING 130 MG/DL (74-106); POTASSIUM SERUM 4.1 MMOL/L (3.5-5.1); SODIUM LEVEL 142 MMOL/L (136-145)
== END ==
PROVIDERS: ATTEND Physician Assistant
DX: E87.6 Hypokalemia (principal)

== ENCOUNTER → 2024-02-12 | Outpatient (REF) | payer MEDICARE, MEDICAID ==
[~2024-02-12] MED LIST changes: +PIPE3.3729 IV; -ZOSY1SOL5 IV
== END ==
PROVIDERS: ATTEND Internal Medicine
DX: M85.88 Other specified disorders of bone density and structure, other site (principal)

== ENCOUNTER → 2024-02-12 | Outpatient (REF) | payer MEDICARE, MEDICAID ==
[2024-02-12 11:22] LABS: HEMATOCRIT 38.8 % (36.0-47.0); HEMOGLOBIN 12.5 g/dl (12.0-15.5); MEAN CORPUSCULAR HEMOGLOBIN 32.6 pg (27.0-33.0); MEAN CORPUSCULAR HGB CONC 32.2 g/dl (32.0-36.5); MEAN CORPUSCULAR VOLUME 101.3 fl (80.0-96.0); PLATELET COUNT, AUTOMATED 166 10^3/uL (150-450); RED BLOOD COUNT 3.83 10^6/uL (4.00-5.40); WHITE BLOOD COUNT 7.6 10^3/uL (4.0-10.0)
[2024-02-12 11:41] LABS: PERCENT SATURATION 25.3 % (13.2-45.0)
[2024-02-12 11:45] LABS: FERRITIN 129.6 NG/ML (7.3-270.7)
== END ==
PROVIDERS: ATTEND Physician Assistant
DX: D64.9 Anemia, unspecified (principal)

== ENCOUNTER → 2024-02-15 | Outpatient (REF) | payer MEDICARE, MEDICAID ==
[2024-02-15 14:18] LABS: HEMATOCRIT 37.9 % (36.0-47.0); HEMOGLOBIN 12.3 g/dl (12.0-15.5); MEAN CORPUSCULAR HEMOGLOBIN 32.1 pg (27.0-33.0); MEAN CORPUSCULAR HGB CONC 32.5 g/dl (32.0-36.5); PLATELET COUNT, AUTOMATED 162 10^3/uL (150-450); RED BLOOD COUNT 3.83 10^6/uL (4.00-5.40); WHITE BLOOD COUNT 9.1 10^3/uL (4.0-10.0)
[2024-02-15 14:52] LABS: BLOOD UREA NITROGEN 12 MG/DL (9-23); CALCIUM LEVEL 8.8 MG/DL (8.3-10.6); CARBON DIOXIDE LEVEL 26 MMOL/L (20-31); CHLORIDE LEVEL 106 MMOL/L (98-107); CREATININE FOR GFR 0.63 MG/DL (0.55-1.30); GLOMERULAR FILTRATION RATE > 60.0 (>32); GLUCOSE, FASTING 113 MG/DL (74-106); POTASSIUM SERUM 3.7 MMOL/L (3.5-5.1); SODIUM LEVEL 142 MMOL/L (136-145)
== END ==
PROVIDERS: ATTEND Physician Assistant
DX: R11.0 Nausea (principal); Z79.899 Other long term (current) drug therapy

== ENCOUNTER → 2024-02-26 | Outpatient (REF) | payer MEDICARE, MEDICAID ==
[2024-02-26 12:40] LABS: HEMATOCRIT 38.1 % (36.0-47.0); HEMOGLOBIN 12.3 g/dl (12.0-15.5); MEAN CORPUSCULAR HEMOGLOBIN 32.6 pg (27.0-33.0); MEAN CORPUSCULAR HGB CONC 32.3 g/dl (32.0-36.5); MEAN CORPUSCULAR VOLUME 101.1 fl (80.0-96.0); PLATELET COUNT, AUTOMATED 180 10^3/uL (150-450); RED BLOOD COUNT 3.77 10^6/uL (4.00-5.40); WHITE BLOOD COUNT 8.5 10^3/uL (4.0-10.0)
[2024-02-26 12:45] LABS: PERCENT SATURATION 21.9 % (13.2-45.0)
[2024-02-26 12:46] LABS: FERRITIN 106.6 NG/ML (7.3-270.7)
== END ==
PROVIDERS: ATTEND Physician Assistant
DX: D64.9 Anemia, unspecified (principal)

== ENCOUNTER → 2024-03-11 | Outpatient (REF) | payer MEDICARE, MEDICAID ==
[2024-03-11 11:36] LABS: HEMATOCRIT 38.4 % (36.0-47.0); HEMOGLOBIN 12.2 g/dl (12.0-15.5); MEAN CORPUSCULAR HEMOGLOBIN 31.6 pg (27.0-33.0); MEAN CORPUSCULAR HGB CONC 31.8 g/dl (32.0-36.5); MEAN CORPUSCULAR VOLUME 99.5 fl (80.0-96.0); PLATELET COUNT, AUTOMATED 192 10^3/uL (150-450); RED BLOOD COUNT 3.86 10^6/uL (4.00-5.40); WHITE BLOOD COUNT 7.7 10^3/uL (4.0-10.0)
[2024-03-11 11:52] LABS: ALBUMIN 3.6 G/DL (3.2-5.2); BILIRUBIN,DIRECT 0.2 MG/DL (<0.4); BILIRUBIN,TOTAL 0.5 MG/DL (0.3-1.2); PERCENT SATURATION 17.6 % (13.2-45.0); TOTAL PROTEIN 6.3 G/DL (5.7-8.2)
[2024-03-11 11:53] LABS: THYROID STIMULATING HORMONE 1.272 uIU/ML (0.55-4.78)
[2024-03-11 11:54] LABS: FERRITIN 86.9 NG/ML (7.3-270.7)
[2024-03-11 12:33] LABS: HEMOGLOBIN A1c 7.1 % (4.0-6.0)
== END ==
PROVIDERS: ATTEND Physician Assistant
DX: D64.9 Anemia, unspecified (principal); Z79.899 Other long term (current) drug therapy

== ENCOUNTER → 2024-03-25 | Outpatient (REF) | payer MEDICARE, MEDICAID ==
[~2024-03-25] MED LIST changes: +POTA20PW PO
[2024-03-25 11:06] LABS: HEMATOCRIT 35.2 % (36.0-47.0); HEMOGLOBIN 11.1 g/dl (12.0-15.5); MEAN CORPUSCULAR HEMOGLOBIN 31.4 pg (27.0-33.0); MEAN CORPUSCULAR HGB CONC 31.5 g/dl (32.0-36.5); MEAN CORPUSCULAR VOLUME 99.7 fl (80.0-96.0); PLATELET COUNT, AUTOMATED 189 10^3/uL (150-450); RED BLOOD COUNT 3.53 10^6/uL (4.00-5.40)
[2024-03-25 11:31] LABS: PERCENT SATURATION 15.7 % (13.2-45.0)
[2024-03-25 11:32] LABS: FERRITIN 97.5 NG/ML (7.3-270.7)
== END ==
PROVIDERS: ATTEND Physician Assistant
DX: D64.9 Anemia, unspecified (principal)

== ENCOUNTER 2024-04-15 12:29 | Inpatient (IN) | payer MEDICARE, MEDICAID ==
[~2024-04-15] VITALS: Ht 162.6 cm; Wt 50.2 kg
[~2024-04-15 12:29] MED LIST changes: -ATIV1TAB7 PO; -BACT800T5 PO; -MAALSUS19 PO; -MORP1SOL SL; -POTA-151 PO; -SUCR1TA PO
[2024-04-15 13:42] LABS: BASO # 0.1 10^3/uL (0.0-0.2); BASO % 0.8 % (0.0-1.0); EOS # 0.2 10^3/uL (0.0-0.5); EOS % 3.2 % (0.0-3.0); HEMATOCRIT 27.3 % (36.0-47.0); HEMOGLOBIN 8.3 g/dl (12.0-15.5); LYMPH # 1.4 10^3/uL (1.5-5.0); LYMPH % 18.6 % (24.0-44.0); MEAN CORPUSCULAR HEMOGLOBIN 31.7 pg (27.0-33.0); MEAN CORPUSCULAR HGB CONC 30.4 g/dl (32.0-36.5); MEAN CORPUSCULAR VOLUME 104.2 fl (80.0-96.0); MONO # 0.7 10^3/uL (0.0-0.8); MONO % 9.2 % (2.0-8.0); NEUTROPHILS % 67.9 % (36.0-66.0); PLATELET COUNT, AUTOMATED 224 10^3/uL (150-450); RED BLOOD COUNT 2.62 10^6/uL (4.00-5.40); WHITE BLOOD COUNT 7.4 10^3/uL (4.0-10.0)
[2024-04-15 13:56] LABS: INR 1.59; PROTHROMBIN TIME 18.4 SECONDS (12.5-14.5)
[2024-04-15 14:12] LABS: LIPASE 24 U/L (12-53)
[2024-04-15 14:15] LABS: ALBUMIN 3.4 G/DL (3.2-5.2); ALKALINE PHOSPHATASE 56 U/L (46-116); ALT/SGPT 12 U/L (7.0-40); AST/SGOT 16 U/L (<34); BILIRUBIN,DIRECT 0.2 MG/DL (<0.4); BILIRUBIN,TOTAL 0.6 MG/DL (0.3-1.2); BLOOD UREA NITROGEN 18 MG/DL (9-23); CALCIUM LEVEL 8.9 MG/DL (8.3-10.6); CARBON DIOXIDE LEVEL 26 MMOL/L (20-31); CHLORIDE LEVEL 110 MMOL/L (98-107); CREATININE FOR GFR 0.85 MG/DL (0.55-1.30); GLOMERULAR FILTRATION RATE > 60.0 (>32); GLUCOSE, FASTING 128 MG/DL (74-106); POTASSIUM SERUM 4.2 MMOL/L (3.5-5.1); SODIUM LEVEL 144 MMOL/L (136-145); TOTAL PROTEIN 6.2 G/DL (5.7-8.2)
[2024-04-15] MEDS ORDERED: ISOVUE-370 76% 100ML VIAL As Ordered ONE (16:06)
[2024-04-15] MEDS: NS 1,000 ML IV SCH (16:44)
[2024-04-15] MEDS: PANTOPRAZOLE 40MG VIAL IV ONE (16:44)
[2024-04-15] MEDS: PANTOPRAZOLE SODIUM 40 MG in D5W 50 ML IV SCH (16:45)
[2024-04-15 18:48] VITALS: BP 186/74; TEMP 97.7; O2SAT 92
[2024-04-15 19:05] VITALS: BP 154/69; TEMP 98; O2SAT 92
[2024-04-15] MEDS ORDERED: SUCR1TA PO (19:37)
[2024-04-15] MEDS ORDERED: POTA-151 PO (19:37)
[2024-04-15] MEDS ORDERED: MAALSUS19 PO (19:37)
[2024-04-15] MEDS ORDERED: HOME MED LIST COMPLETE! XX SCH (19:40)
[2024-04-15 20:05] VITALS: BP 184/79; TEMP 98.1; O2SAT 20
[2024-04-15] MEDS ORDERED: MORPHINE 2 MG/ML 1ML VIAL IV PRN (21:05)
[2024-04-15] MEDS ORDERED: NITROGLYCERIN 0.4MG SUBL TABLET SL PRN (21:15)
[2024-04-15 21:32] VITALS: BP 157/70; TEMP 98.1; O2SAT 95
[2024-04-15] MEDS: SUCRALFATE 1 GM TAB PO SCH (21:41)
[2024-04-15] MEDS: POTASSIUM CHLORIDE 10MEQ SR TABLET PO SCH (21:42)
[2024-04-15] MEDS: ATORVASTATIN 20 MG TAB PO SCH (21:42)
[2024-04-15] MEDS: ACETAMINOPHEN 500 MG TAB PO SCH (21:42)
[2024-04-15] MEDS ORDERED: GLUCAGON INJ 1MG VIAL SC PRN (22:05)
[2024-04-15] MEDS ORDERED: DEXTROSE 50% 50ML SYRINGE IV PRN (22:05)
[2024-04-15] MEDS ORDERED: GLUCOSE 4 GM CHEW PO PRN (22:05)
[2024-04-15] MEDS: AMITRIPTYLINE 10MG TABLET PO SCH (22:20)
[2024-04-16] VITALS (7 sets, daily range): BP systolic 130–174; BP diastolic 59–72; TEMP 96.6–98; O2SAT 91–97
[2024-04-16] MEDS: INSULIN LISPRO (NovoLOG) PER UNIT SC SCH
[2024-04-16 00:10] LABS: CA19-9 TUMOR MARKER,CARBOHYDRA 4637.4 U/ML (<35.0)
[2024-04-16 01:16] LABS: HEMATOCRIT 31.9 % (36.0-47.0); HEMOGLOBIN 10.3 g/dl (12.0-15.5)
[2024-04-16] MEDS: SYMBICORT 160/4.5MCG INHALER 6GM INH SCH (07:42)
[2024-04-16] MEDS: ACETAMINOPHEN 500 MG TAB PO SCH (07:46)
[2024-04-16] MEDS: DULoxetine 30MG CAPSULE (CYMBALTA) PO SCH (08:16)
[2024-04-16 08:37] LABS: BASO # 0.1 10^3/uL (0.0-0.2); BASO % 1.1 % (0.0-1.0); EOS # 0.3 10^3/uL (0.0-0.5); EOS % 5.2 % (0.0-3.0); HEMOGLOBIN 10.7 g/dl (12.0-15.5); LYMPH # 1.2 10^3/uL (1.5-5.0); LYMPH % 18.7 % (24.0-44.0); MEAN CORPUSCULAR HGB CONC 32.4 g/dl (32.0-36.5); MEAN CORPUSCULAR VOLUME 98.8 fl (80.0-96.0); MONO # 0.7 10^3/uL (0.0-0.8); MONO % 10.8 % (2.0-8.0); NEUTROPHILS % 63.9 % (36.0-66.0); PLATELET COUNT, AUTOMATED 184 10^3/uL (150-450); RED BLOOD COUNT 3.34 10^6/uL (4.00-5.40); WHITE BLOOD COUNT 6.3 10^3/uL (4.0-10.0)
[2024-04-16 08:59] LABS: BLOOD UREA NITROGEN 14 MG/DL (9-23); CARBON DIOXIDE LEVEL 29 MMOL/L (20-31); CHLORIDE LEVEL 108 MMOL/L (98-107); CREATININE FOR GFR 0.89 MG/DL (0.55-1.30); GLOMERULAR FILTRATION RATE > 60.0 (>32); GLUCOSE, FASTING 114 MG/DL (74-106); MAGNESIUM LEVEL 1.7 MG/DL (1.8-2.4); POTASSIUM SERUM 3.8 MMOL/L (3.5-5.1); SODIUM LEVEL 143 MMOL/L (136-145)
[2024-04-16] MEDS: FLUTICASONE PROP 0.05% NASAL SPRAY 16 GM (FLONASE) NARES SCH (09:04)
[2024-04-16] MEDS: PANTOPRAZOLE 40MG VIAL IV SCH (09:04)
[2024-04-16 12:27] LABS: HEMATOCRIT 35.3 % (36.0-47.0); HEMOGLOBIN 11.5 g/dl (12.0-15.5); MEAN CORPUSCULAR HEMOGLOBIN 32.1 pg (27.0-33.0); MEAN CORPUSCULAR HGB CONC 32.6 g/dl (32.0-36.5); MEAN CORPUSCULAR VOLUME 98.6 fl (80.0-96.0); PLATELET COUNT, AUTOMATED 192 10^3/uL (150-450); RED BLOOD COUNT 3.58 10^6/uL (4.00-5.40); WHITE BLOOD COUNT 7.1 10^3/uL (4.0-10.0)
[2024-04-16 18:31] LABS: HEMATOCRIT 34.2 % (36.0-47.0); HEMOGLOBIN 11.3 g/dl (12.0-15.5)
[2024-04-16] MEDS: ACETAMINOPHEN TAB 650MG DOSE (2X325MG) PO ONE (20:42)
[2024-04-16 20:55] LABS: HEMATOCRIT 34.7 % (36.0-47.0); HEMOGLOBIN 11.4 g/dl (12.0-15.5); MEAN CORPUSCULAR HEMOGLOBIN 32.3 pg (27.0-33.0); MEAN CORPUSCULAR HGB CONC 32.9 g/dl (32.0-36.5); MEAN CORPUSCULAR VOLUME 98.3 fl (80.0-96.0); PLATELET COUNT, AUTOMATED 197 10^3/uL (150-450); RED BLOOD COUNT 3.53 10^6/uL (4.00-5.40); WHITE BLOOD COUNT 8.2 10^3/uL (4.0-10.0)
[2024-04-17 00:20] LABS: HEMATOCRIT 32.1 % (36.0-47.0); HEMOGLOBIN 10.5 g/dl (12.0-15.5)
[2024-04-17 04:47] VITALS: BP 144/67; TEMP 97.6; O2SAT 95
[2024-04-17 08:24] LABS: HEMATOCRIT 33.4 % (36.0-47.0); HEMOGLOBIN 10.8 g/dl (12.0-15.5); MEAN CORPUSCULAR HEMOGLOBIN 32.1 pg (27.0-33.0); MEAN CORPUSCULAR HGB CONC 32.3 g/dl (32.0-36.5); MEAN CORPUSCULAR VOLUME 99.4 fl (80.0-96.0); PLATELET COUNT, AUTOMATED 178 10^3/uL (150-450); RED BLOOD COUNT 3.36 10^6/uL (4.00-5.40); WHITE BLOOD COUNT 6.6 10^3/uL (4.0-10.0)
[2024-04-17 08:28] VITALS: BP 146/64; TEMP 97.3; O2SAT 95
[2024-04-17 08:54] LABS: BLOOD UREA NITROGEN 10 MG/DL (9-23); CALCIUM LEVEL 8.2 MG/DL (8.3-10.6); CARBON DIOXIDE LEVEL 26 MMOL/L (20-31); CHLORIDE LEVEL 112 MMOL/L (98-107); GLOMERULAR FILTRATION RATE > 60.0 (>32); GLUCOSE, FASTING 146 MG/DL (74-106); MAGNESIUM LEVEL 1.8 MG/DL (1.8-2.4); POTASSIUM SERUM 3.7 MMOL/L (3.5-5.1); SODIUM LEVEL 145 MMOL/L (136-145)
[2024-04-17] MEDS: ASPIRIN 81MG ENTERIC TABLET PO SCH (09:00)
[2024-04-17] MEDS: MAG SULF 1GM/100ML (MAG RUN) 1 GM in IV 1 EA IV ONE (09:12)
[2024-04-17] MEDS ORDERED: MORPHINE 10MG/0.5ML ORAL CONCENTRATE SOLUTION U/D SL PRN (10:10)
[2024-04-17] MEDS ORDERED: LORazepam 1 MG TAB PO PRN (10:10)
[2024-04-17] MEDS ORDERED: ONDANSETRON 4MG ORAL DISINTEGRATING TAB PO PRN (10:10)
[2024-04-17] MEDS ORDERED: BACT800T5 PO (11:58)
[2024-04-17 12:00] VITALS: BP 180/74; TEMP 97.9; O2SAT 92
[2024-04-17] MEDS ORDERED: MORP1SOL SL (12:29)
[2024-04-17] MEDS ORDERED: ATIV1TAB7 PO (12:29)
[2024-04-17] MEDS ORDERED: OMEPRAZOLE 20MG CAP PO SCH (21:00)
[2024-04-18] MEDS ORDERED: ASPIRIN 81MG ENTERIC TABLET PO SCH (09:00)
== END 2024-04-17 13:18 | DRG 378 ==
LOC: M ED 12:29 → M ED INP 20:58 → M PCU 23:53
PROVIDERS: ADMIT Student in an Organized Health Care Education/Training Program; ATTEND Student in an Organized Health Care Education/Training Program
PROC: 30233N1 Transfusion of Nonautologous Red Blood Cells into Peripheral Vein, Percutaneous Approach (ICD-10-PCS; principal; 2024-04-15)
DX: K92.2 Gastrointestinal hemorrhage, unspecified (principal); C78.7 Secondary malignant neoplasm of liver and intrahepatic bile duct; N39.0 Urinary tract infection, site not specified; K21.9 Gastro-esophageal reflux disease without esophagitis; K64.9 Unspecified hemorrhoids; I11.0 Hypertensive heart disease with heart failure; I50.9 Heart failure, unspecified; I25.10 Atherosclerotic heart disease of native coronary artery without angina pectoris; E11.51 Type 2 diabetes mellitus with diabetic peripheral angiopathy without gangrene; E78.5 Hyperlipidemia, unspecified; J44.9 Chronic obstructive pulmonary disease, unspecified; H35.30 Unspecified macular degeneration; K44.9 Diaphragmatic hernia without obstruction or gangrene; L82.1 Other seborrheic keratosis; Z66 Do not resuscitate; Z99.81 Dependence on supplemental oxygen; R63.4 Abnormal weight loss; H91.93 Unspecified hearing loss, bilateral; D50.9 Iron deficiency anemia, unspecified; E83.42 Hypomagnesemia; Z89.612 Acquired absence of left leg above knee; Z86.16 Personal history of COVID-19; Z86.73 Personal history of transient ischemic attack (TIA), and cerebral infarction without residual deficits; Z95.1 Presence of aortocoronary bypass graft; Z95.820 Peripheral vascular angioplasty status with implants and grafts; Z87.891 Personal history of nicotine dependence; Z88.0 Allergy status to penicillin; Z79.82 Long term (current) use of aspirin; Z88.1 Allergy status to other antibiotic agents; Z79.84 Long term (current) use of oral hypoglycemic drugs; Z88.8 Allergy status to other drugs, medicaments and biological substances; Z79.01 Long term (current) use of anticoagulants; Z79.899 Other long term (current) drug therapy; Z79.02 Long term (current) use of antithrombotics/antiplatelets

== ENCOUNTER → 2024-04-15 | Outpatient (REF) | payer MEDICARE, MEDICAID ==
[~2024-04-15] MED LIST changes: +ATIV1TAB7 PO; +BACT800T5 PO; +MAALSUS19 PO; +MORP1SOL SL; +POTA-151 PO; +SUCR1TA PO
[2024-04-15 08:40] LABS: HEMATOCRIT 25.7 % (36.0-47.0); HEMOGLOBIN 8.1 g/dl (12.0-15.5); MEAN CORPUSCULAR HEMOGLOBIN 32.7 pg (27.0-33.0); MEAN CORPUSCULAR HGB CONC 31.5 g/dl (32.0-36.5); MEAN CORPUSCULAR VOLUME 103.6 fl (80.0-96.0); PLATELET COUNT, AUTOMATED 195 10^3/uL (150-450); RED BLOOD COUNT 2.48 10^6/uL (4.00-5.40)
[2024-04-15 09:13] LABS: PERCENT SATURATION 11.5 % (13.2-45.0)
[2024-04-15 09:15] LABS: ALBUMIN 3.3 G/DL (3.2-5.2); BILIRUBIN,DIRECT 0.2 MG/DL (<0.4); BILIRUBIN,TOTAL 0.5 MG/DL (0.3-1.2); FERRITIN 33.1 NG/ML (7.3-270.7); TOTAL PROTEIN 5.9 G/DL (5.7-8.2)
== END ==
PROVIDERS: ATTEND Physician Assistant
DX: D64.9 Anemia, unspecified (principal)

== ENCOUNTER → 2024-04-19 | Outpatient (REF) | payer MEDICARE, MEDICAID ==
[~2024-04-19] MED LIST changes: +ATIV1TAB7 PO; +BACT800T5 PO; +MAALSUS19 PO; +MORP1SOL SL; +POTA-151 PO; +SUCR1TA PO
== END ==
PROVIDERS: ATTEND Physician Assistant
DX: D64.9 Anemia, unspecified (principal); Z53.8 Procedure and treatment not carried out for other reasons

== ENCOUNTER → 2024-04-19 | Outpatient (REF) | payer MEDICARE, MEDICAID | PROVIDERS: ATTEND Physician Assistant | DX: D64.9 Anemia, unspecified (principal); Z53.8 Procedure and treatment not carried out for other reasons ==

== ENCOUNTER → 2024-04-19 | Outpatient (REF) | payer MEDICARE, MEDICAID | PROVIDERS: ATTEND Physician Assistant | DX: D64.9 Anemia, unspecified (principal); Z53.8 Procedure and treatment not carried out for other reasons ==